=== PATIENT | female | born 1970 | race American Indian/Alaskan Native ===

== ENCOUNTER 2018-08-21 12:52 | Inpatient (IN) | payer SELFPAY ==
--- NOTE | 2018-08-21 13:07 | Emergency Department Report ---
Chief Complaint: Dyspnea/Respdistress Stated Complaint: RT TOE INFECTED/SOB/WEAK Time Seen by Provider: 08/21/18 13:05 - HPI History of Present Illness: here w many problems 1. cut toe 1 m ago and it hursts now; started to swell Thursday she does not know what she cut on it open wound of foot draining 2. weakness tachycardia on triage pt states she had chills earlier in the week no hx clots mom dm dad dec [place] at 56 pmh none obese pcp none rx none no cig no etoh no drugs lmp 2 m perimenopausal needs tdap [address] NAP, normal axis mse completed MSE screening note: Focused history and physical exam performed. Due to findings the following was ordered: ED Disposition for MSE Condition: Stable
[2018-08-21] MEDS ORDERED: BOOSTRIX IM ONE (13:11)
[2018-08-21] MEDS ORDERED: IBUPROFEN PO ONE (13:12)
[2018-08-21 14:05] LABS: Albumin 3.4 g/dL (3.9-5); BUN/Creatinine Ratio 16; Blood Urea Nitrogen 11 mg/dL (7-17); Calcium 9.5 mg/dL (8.4-10.2); Hemolysis Index 0
[2018-08-21 14:10] LABS: Alanine Aminotransferase < 5 units/L (7-56)
[2018-08-21 14:19] LABS: Hemoglobin 12.2 gm/dl (10.1-14.3); Mean Corpuscular HGB Conc 32 % (30-34); Mean Corpuscular Volume 71 fl (79-97); Platelet Count 471 K/mm3 (140-440); Red Blood Count 5.34 M/mm3 (3.65-5.03); Red Cell Distribution Width 16.4 % (13.2-15.2)
[2018-08-21] MEDS ORDERED: NACL 0.9% 1000 ML 1,000 ML IV ONE (14:39)
[2018-08-21] MEDS: VANCOMYCIN/NS 1 GM/250 ML 1 GM/250 ML BAG IV ONE ×2 (15:16→16:54)
--- NOTE | 2018-08-21 15:27 | XRay Report ---
EXAM: XR CHEST ROUTINE 2V HISTORY: sob TECHNIQUE: PA and lateral chest x-ray dated 08/21/2018 at 1457 hours. COMPARISON: None available. FINDINGS: The heart size and mediastinum are within normal limits. The lung ann and costophrenic angles are clear. There is no acute parenchymal infiltrate, pleural effusion, or pneumothorax seen. The visua lized bony structures are within normal limits. IMPRESSION: 1. No evidence for acute cardiopulmonary disease seen. This document is electronically signed by Otilio Gan MD., August 21 2018 03:25:53 PM ET
--- NOTE | 2018-08-21 15:30 | XRay Report ---
EXAM: XR FOOT 3+V RT HISTORY: pain sp cut on foot between 1/2 toe TECHNIQUE: 3 views COMPARISON: None available. FINDINGS: There is no acute bony fracture, or joint subluxation or dislocation seen. No evidence for inflammato ry or degenerative arthritis is seen. No focal bone erosion or sclerosis is seen. No plantar or Achil les calcaneal bone spur seen. There is soft tissue prominence between the first and second digits with mild diastases of the digits in keeping with posttraumatic change with possible hematoma. No soft tissue emphysema or foreign bod y is seen. There is peripheral atherosclerosis; rule out diabetic vasculopathy. IMPRESSION: 1. No acute bony fracture, or joint subluxation or dislocation seen. 2. Soft tissue prominence between the first and second digits with mild diastases of the digits in k eeping with posttraumatic change with possible hematoma. 3. No soft tissue emphysema or foreign body is seen. 4. Peripheral atherosclerosis; rule out diabetic vasculopathy. This document is electronically signed by Otilio Gan MD., August 21 2018 03:28:26 PM ET
[2018-08-21] MEDS ORDERED: HumuLIN R IV ONE ×2 (15:49→18:15)
--- NOTE | 2018-08-21 16:16 | Emergency Department Report ---
HPI - General Chief Complaint: Dyspnea/Respdistress Time Seen by Provider: 08/21/18 13:05 - HPI HPI: 48-year-old female presents to the emergency department with 2 complaints. First, the patient has a three-day history of pain, redness and swelling of the right foot. She had some type of toe and foot injury about one month ago that caused a laceration or opening between her first 2 toes. She says that about 3 days ago all of a sudden the symptoms came on and the area "opened up and started gushing." Secondly, the patient has been dealing with a one-week history of some diminished shortness of breath. No chest pain, fever, back pain, nausea, vomiting or diaphoresis. She denies any past medical history but also does not follow-up with a primary care physician and has not for the past couple of years. She has not taken anything for her symptoms prior to arrival. No recent travel or sick contacts at home. ED Past Medical Hx - Past Medical History Previous Medical History?: No - Surgical History Past Surgical History?: Yes Additional Surgical History: c-sections - Social History Smoking Status: Never Smoker Substance Use Type: None ED Review of Systems ROS: Stated complaint: RT TOE INFECTED/SOB/WEAK Other details as noted in HPI Comment: All other systems reviewed and negative Constitutional: denies: chills, fever Eyes: denies: eye pain, vision change ENT: denies: ear pain, throat pain Respiratory: shortness of breath. denies: cough Cardiovascular: edema (right foot). denies: chest pain, palpitations Gastrointestinal: denies: abdominal pain, vomiting Genitourinary: denies: dysuria, discharge Musculoskeletal: joint swelling, arthralgia Skin: change in color. denies: pruritus Neurological: denies: headache, numbness Physical Exam - Physical Exam Vital Signs: Vital Signs 08/21/18 08/21/18 13:05 14:07 Temperature 97.7 F Pulse Rate 138 H 116 H Respiratory 18 Rate Blood Pressure 127/89 O2 Sat by Pulse 98 Oximetry Physical Exam: GENERAL: The patient is well-developed well-nourished. HEENT: Normocephalic. Atraumatic. Patient has moist mucous membranes. EYES: Extraocular motions are intact. Pupils are equal and reactive to light bilaterally. NECK: Supple. Trachea is midline. CHEST/LUNGS: Clear to auscultation. There is no respiratory distress noted. HEART/CARDIOVASCULAR: Regular. There is moderate tachycardia. There is no obvious murmur. ABDOMEN: Abdomen is soft, nontender. Patient has normal bowel sounds. There is no abdominal distention. SKIN: There is nonpitting swelling of the right great toe and dorsal foot with erythema. There is some mild blood and discharge seen coming from between the great toe and the second toe of that foot. NEURO: The patient is awake, alert, and oriented. The patient is cooperative. The patient has no focal neurologic deficits. The patient has normal speech. MUSCULOSKELETAL: Tenderness to palpation to the right great toe and foot. Pedal pulses present. ED Course Vital Signs 08/21/18 08/21/18 13:05 14:07 Temperature 97.7 F Pulse Rate 138 H 116 H Respiratory 18 Rate Blood Pressure 127/89 O2 Sat by Pulse 98 Oximetry ED Medical Decision Making - Lab Data Result diagrams: 08/23/18 04:27 08/21/18 13:23 - Radiology Data Radiology results: report reviewed, image reviewed interpreted by me: Chest x-ray does not show any pneumothorax, pleural effusion, pneumonia or obvious focal consolidation. X-ray of the right foot moderate soft tissue swelling. PROCEDURE: CT LOWER EXTREMITY RT W CON HISTORY: Right foot infection FINDINGS: Contrast-enhanced CT angiography of the legs was performed from the level of the midthighs to the feet. On the right, the superficial femoral artery is patent. The popliteal artery is patent. The anterior tibial artery is patent to the level of the ankle and gives rise to a patent dorsalis pedis. There is atherosclerosis of the tibioperoneal trunk which is patent. The posterior tibial is a relatively small vessel but appears patent to the level of the ankle and gives rise to a medial plantar arch. The peroneal is very small. It appears occluded at the level of the ankle joint. Evaluation of the calf station is limited by venous contamination due to bolus timing. The patient reportedly has known right foot infection. Evaluation the foot is limited by the [id number] of the examination, which is too large for the foot. There is subcutaneous stranding of the great toe and medial aspect of the forefoot which could represent cellulitis. No abscess or evidence of osteomyelitis is seen. Consider MRI of the foot for further evaluation as clinically indicated. In the left leg, the distal superficial femoral artery is patent. The popliteal artery is patent. The anterior tibial artery is small and appears patent to the ankle and gives rise to very small dorsalis pedis. The posterior tibial is patent and gives rise to a small medial plantar arch. The distal peroneal artery is very small but appears to be patent to the level of the ankle. IMPRESSION: The leg arterial vasculature appears patent bilaterally Suspected cellulitis of right great toe and medial forefoot. No soft tissue abscess or evidence of osteomyelitis is seen. Consider MRI for further evaluation as clinically indicated This document is electronically signed by August Fleming MD., August 21 2018 08:31:53 PM ET Transcribed By: PATRICIA Dictated By: AUGUST FLEMING MD Electronically Authenticated By: AUGUST FLEMING MD Signed Date/Time: 08/21/182032 PROCEDURE: CT ANGIO CHEST TECHNIQUE: CTA of the chest obtained with intravenous contrast. HISTORY: SOB, elevated dimer COMPARISONS: None FINDINGS: No evidence for acute pulmonary embolus. No evidence for aortic aneurysm or dissection. Heart is normal in size. Great vessels are normal in caliber. There is no pneumothorax. No focal consolidation or effusion visualized. Partially visualized upper abdomen is unremarkable. IMPRESSION: No evidence for acute pulmonary embolus.. This document is electronically signed by Nori Larsen MD., August 21 2018 07:13:20 PM ET Transcribed By: QF Dictated By: NORI LARSEN Electronically Authenticated By: NORI LARSEN Signed Date/Time: 08/21/181914 - Medical Decision Making This patient injured her right foot about one month ago causing a laceration between the first and second toes. More recently, the patient has developed some redness, swelling of the foot and great toe and says that there was an opening between the 2 toes in which there was a large amount of purulent drainage that came out. On examination the toe and foot appears cellulitic. The patient presents with moderate tachycardia but no fever. She also appears to be diabetic which is new onset, although the patient has not followed up with a primary care physician in the past few years. She was given some IV insulin and IV fluid resuscitation. She was started empirically on vancomycin. X-ray and CT of the lower extremity did not show any fluid collection at this time and once again appears consistent with cellulitis. The patient complained of some occasional shortness of breath so a chest x-ray was done that also did not show any acute process. She had an elevated an equivocal d-dimer and therefore CT angiography of the chest was done that did not any pulmonary embolism. Given the new onset diabetes with hyperglycemia and this moderate to severe right foot cellulitis, the patient will be admitted to the hospital for further evaluation and treatment. - Differential Diagnosis DKA, HHNK, Cellulitis, Abscess Critical Care Time: No Critical care attestation.: If time is entered above; I have spent that time in minutes in the direct care of this critically ill patient, excluding procedure time. ED Disposition Clinical Impression: Cellulitis of right foot, Diabetes mellitus, new onset, Hyperglycemia Sepsis Qualifiers: Sepsis type: sepsis due to unspecified organism Qualified Code(s): A41.9 - Sepsis, unspecified organism Disposition: OP ADMIT IP TO THIS HOSP Is pt being admited?: Yes Condition: Fair
--- NOTE | 2018-08-21 19:15 | Cat Scan Report ---
PROCEDURE: CT ANGIO CHEST TECHNIQUE: CTA of the chest obtained with intravenous contrast. HISTORY: SOB, elevated dimer COMPARISONS: None FINDINGS: No evidence for acute pulmonary embolus. No evidence for aortic aneurysm or dissection. Heart is normal in size. Great vessels are normal in caliber. There is no pneumothorax. No focal consolidation or effusion visualized. Partially visualized upper abdomen is unremarkable. IMPRESSION: No evidence for acute pulmonary embolus.. This document is electronically signed by Anita Larsen MD., August 21 2018 07:13:20 PM ET
--- NOTE | 2018-08-21 20:33 | Cat Scan Report ---
PROCEDURE: CT LOWER EXTREMITY RT W CON HISTORY: Right foot infection FINDINGS: Contrast-enhanced CT angiography of the legs was performed from the level of the midthighs to the feet. On the right, the superficial femoral artery is patent. The popliteal artery is patent. The anterior tibial artery is patent to the level of the ankle and gives rise to a patent dorsalis pedis. There is atherosclerosis of the tibioperoneal trunk which is patent. The posterior tibial is a relatively sma ll vessel but appears patent to the level of the ankle and gives rise to a medial plantar arch. The p eroneal is very small. It appears occluded at the level of the ankle joint. Evaluation of the calf st ation is limited by venous contamination due to bolus timing. The patient reportedly has known right foot infection. Evaluation the foot is limited by the field-of -view of the examination, which is too large for the foot. There is subcutaneous stranding of the gre at toe and medial aspect of the forefoot which could represent cellulitis. No abscess or evidence of osteomyelitis is seen. Consider MRI of the foot for further evaluation as clinically indicated. In the left leg, the distal superficial femoral artery is patent. The popliteal artery is patent. The anterior tibial artery is small and appears patent to the ankle and gives rise to very small dorsali s pedis. The posterior tibial is patent and gives rise to a small medial plantar arch. The distal per rendon artery is very small but appears to be patent to the level of the ankle. IMPRESSION: The leg arterial vasculature appears patent bilaterally Suspected cellulitis of right great toe and medial forefoot. No soft tissue abscess or evidence of os teomyelitis is seen. Consider MRI for further evaluation as clinically indicated This document is electronically signed by Aguust Fleming MD., August 21 2018 08:31:53 PM ET
[2018-08-21 22:49] LABS: HCG Qualitative,Urine Negative (Negative)
[2018-08-21] MEDS ORDERED: ZOFRAN IV PRN (22:52)
[2018-08-21] MEDS ORDERED: TYLENOL PO PRN (22:52)
[2018-08-21] MEDS ORDERED: MORPHINE IV PRN (22:52)
[2018-08-21 22:53] LABS: Bilirubin,Urine NEG (Negative); Blood,Urine NEG (Negative); Color,Urine Yellow (Yellow); Mucus,Urine FEW /HPF; Protein,Urine <15 mg/dL mg/dL (Negative)
--- NOTE | 2018-08-21 23:06 | History and Physical Report ---
<SALOMON REMY - Last Filed: 08/22/18 00:18> History of Present Illness Date of examination: 08/21/18 Date of admission: 08/21/2018 Chief complaint: Right great toes infection History of present illness: Patient is a 48-year-old female with no prior medical history who presents to the ER with complaints of right great toe injury that developed into an infection. Patient states about a month ago she accidentally stepped on something as she was walking, when she got home she noticed the open area. Patient states that she was cleaning the area daily and kept it dressed, but 3 days ago she noticed redness and swelling and large amount of purulent discharge came out. Patient states that the area kept getting worse, with redness and discoloration, she reports some chills, denies fever, she decided to come to the ER for evaluation today. Pt states that she had not seen a doctors in years, she is not aware of any medical history, she cannoy reminber her last tetanus shot, in the ER, her blood glucose was 369, she is admitted for further evaluation and treatment of her right great toe infection. Past History Past Medical History: No medical history Past Surgical History: (x3) Social history: no significant social history, lives with family Family history: CAD (mother and father has diabetes, father has heart disease), diabetes Medications and Allergies Allergies Allergy/AdvReac Type Severity Reaction Status Date / Time No Known Allergies Allergy Verified 08/21/18 13:05 Home Medications Medication Instructions Recorded Confirmed Last Taken Type Insulin NPH/Regular [NovoLIN 70/30] 24 unit SUB-Q BIDDIAB 30 Days 08/30/18 Unknown Rx units Insulin Regular, Human [Humulin R] See Protocol IJ ACHS 30 Days vial 08/30/18 Unknown Rx hydrALAZINE [Apresoline TAB] 10 mg PO Q8HR #90 tablet 08/30/18 Unknown Rx oxyCODONE /ACETAMINOPHEN [Percocet 1 tab PO BID PRN #10 tablet 08/30/18 Unknown Rx 5/325 mg] Active Meds: Active Medications Acetaminophen (Tylenol) 650 mg PO Q4H PRN PRN Reason: Pain MILD(1-3)/Fever >100.5/SMITH Enoxaparin Sodium (Lovenox) 40 mg SUB-Q QDAY AMIRA Morphine Sulfate (Morphine) 2 mg IV Q4H PRN PRN Reason: Pain, Moderate (4-6) Ondansetron HCl (Zofran) 4 mg IV Q8H PRN PRN Reason: Nausea And Vomiting Sodium Chloride (Sodium Chloride Flush Syringe 10 Ml) 10 ml IV BID AMIRA Sodium Chloride (Sodium Chloride Flush Syringe 10 Ml) 10 ml IV PRN PRN PRN Reason: LINE FLUSH Review of Systems Constitutional: chills Exam - Constitutional Vitals: Temp Pulse Resp BP Pulse Ox 97.5 F L 106 H 17 116/80 100 08/21/18 19:52 08/21/18 19:52 08/21/18 19:52 08/21/18 19:52 08/21/18 19:52 General appearance: Present: no acute distress - EENT Eyes: Present: EOM intact ENT: hearing intact - Neck Neck: Present: normal ROM - Respiratory Respiratory effort: normal Respiratory: bilateral: CTA - Cardiovascular Rhythm: regular Heart Sounds: Present: S1 & S2 - Extremities Extremity abnormal: ulceration Results - Labs CBC & Chem 7: 08/21/18 13:23 08/21/18 13:23 Labs: Laboratory Last Values WBC 12.0 K/mm3 (4.5-11.0) H 08/21/18 13:23 RBC 5.34 M/mm3 (3.65-5.03) H 08/21/18 13:23 Hgb 12.2 gm/dl (10.1-14.3) 08/21/18 13:23 Hct 38.0 % (30.3-42.9) 08/21/18 13:23 MCV 71 fl (79-97) L 08/21/18 13:23 MCH 23 pg (28-32) L 08/21/18 13:23 MCHC 32 % (30-34) 08/21/18 13:23 RDW 16.4 % (13.2-15.2) H 08/21/18 13:23 Plt Count 471 K/mm3 (140-440) H 08/21/18 13:23 D-Dimer 728.45 ng/mlDDU (0-234) H 08/21/18 15:03 VBG pH 7.402 (7.320-7.420) 08/21/18 15:03 Sodium 131 mmol/L (137-145) L 08/21/18 13:23 Potassium 4.4 mmol/L (3.6-5.0) 08/21/18 13:23 Chloride 87.9 mmol/L (98-107) L 08/21/18 13:23 Carbon Dioxide 17 mmol/L (22-30) L 08/21/18 13:23 Anion Gap 31 mmol/L 08/21/18 13:23 BUN 11 mg/dL (7-17) 08/21/18 13:23 Creatinine 0.7 mg/dL (0.7-1.2) 08/21/18 13:23 Estimated GFR > 60 ml/min 08/21/18 13:23 BUN/Creatinine Ratio 16 % 08/21/18 13:23 Glucose 369 mg/dL (65-100) H 08/21/18 13:23 POC Glucose 320 (70-105) H 08/21/18 17:30 Lactic Acid 1.70 mmol/L (0.7-2.0) 08/21/18 15:03 Calcium 9.5 mg/dL (8.4-10.2) 08/21/18 13:23 Total Bilirubin 0.50 mg/dL (0.1-1.2) 08/21/18 13:23 AST 5 units/L (5-40) 08/21/18 13:23 ALT < 5 units/L (7-56) L 08/21/18 13:23 Alkaline Phosphatase 97 units/L (35-129) 08/21/18 13:23 Total Protein 9.1 g/dL (6.3-8.2) H 08/21/18 13:23 Albumin 3.4 g/dL (3.9-5) L 08/21/18 13:23 Albumin/Globulin Ratio 0.6 % 08/21/18 13:23 Urine Color Yellow (Yellow) 08/21/18 22:30 Urine Turbidity Clear (Clear) 08/21/18 22:30 Urine pH 5.0 (5.0-7.0) 08/21/18 22:30 Ur Specific [place] 1.060 (1.003-1.030) H 08/21/18 22:30 Urine Protein <15 mg/dl mg/dL (Negative) 08/21/18 22:30 Urine Glucose (UA) 150 mg/dL (Negative) 08/21/18 22:30 Urine Ketones 80 mg/dL (Negative) 08/21/18 22:30 Urine Blood Neg (Negative) 08/21/18 22:30 Urine Nitrite Neg (Negative) 08/21/18 22:30 Ur Reducing Substances Not Reportable 08/21/18 22:30 Urine Bilirubin Neg (Negative) 08/21/18 22:30 Urine Ictotest Not Reportable 08/21/18 22:30 Urine Urobilinogen 4.0 mg/dL (<2.0) 08/21/18 22:30 Ur Leukocyte Esterase Tr (Negative) 08/21/18 22:30 Urine WBC (Auto) 7.0 /HPF (0.0-6.0) H 08/21/18 22:30 Urine RBC (Auto) 5.0 /HPF (0.0-6.0) 08/21/18 22:30 U Epithel Cells (Auto) 1.0 /HPF (0-13.0) 08/21/18 22:30 Urine Mucus Few /HPF 08/21/18 22:30 Urine HCG, Qual Negative (Negative) 08/21/18 22:30 Assessment and Plan Assessment and plan: 1. Right toe Inspection (likely due to diabetes ulcer) 2. New onset DM type 2 with hyperglycemia 3. Leukocytosis 4. Dehydration 5. Hyponatremia Plan: Patient is admitted for right foot infection Consult surgery for evaluation (possible debridement) IV fluids for hydration Accu-Chek ACHS with insulin per sliding scale Hemoglobin A1c Diabetes management teaching Continue antibiotics with the vancomycin pharmacy to dose Further then per surgery recommendation Plan discussed with patient, voiced understanding Patient's condition and plan of care discussed with Dr. Holden Advance Directives: Yes VTE prophylaxis?: Chemical Plan of care discussed with patient/family: Yes <ARCHANA HOLDEN - Last Filed: 09/01/18 03:26> History of Present Illness Date of admission: 08/21/18 22:39 Medications and Allergies Active Meds: Active Medications Acetaminophen (Tylenol) 650 mg PO Q4H PRN PRN Reason: Pain MILD(1-3)/Fever >100.5/SMITH Enoxaparin Sodium (Lovenox) 40 mg SUB-Q QDAY AMIRA Insulin Human Regular (Humulin R) 0 units SUB-Q ACHS AMIRA; Protocol Morphine Sulfate (Morphine) 2 mg IV Q4H PRN PRN Reason: Pain, Moderate (4-6) Ondansetron HCl (Zofran) 4 mg IV Q8H PRN PRN Reason: Nausea And Vomiting Sodium Chloride (Sodium Chloride Flush Syringe 10 Ml) 10 ml IV BID AMIRA Sodium Chloride (Sodium Chloride Flush Syringe 10 Ml) 10 ml IV PRN PRN PRN Reason: LINE FLUSH Exam - Constitutional Vitals: Temp Pulse Resp BP Pulse Ox 97.6 F 101 H 18 120/64 94 08/22/18 02:20 08/22/18 02:20 08/22/18 02:20 08/22/18 02:20 08/22/18 02:20 Results - Labs CBC & Chem 7: 08/27/18 06:39 08/29/18 06:10 Labs: Laboratory Last Values WBC 12.0 K/mm3 (4.5-11.0) H 08/21/18 13:23 RBC 5.34 M/mm3 (3.65-5.03) H 08/21/18 13:23 Hgb 12.2 gm/dl (10.1-14.3) 08/21/18 13:23 Hct 38.0 % (30.3-42.9) 08/21/18 13:23 MCV 71 fl (79-97) L 08/21/18 13:23 MCH 23 pg (28-32) L 08/21/18 13:23 MCHC 32 % (30-34) 08/21/18 13:23 RDW 16.4 % (13.2-15.2) H 08/21/18 13:23 Plt Count 471 K/mm3 (140-440) H 08/21/18 13:23 D-Dimer 728.45 ng/mlDDU (0-234) H 08/21/18 15:03 VBG pH 7.402 (7.320-7.420) 08/21/18 15:03 Sodium 131 mmol/L (137-145) L 08/21/18 13:23 Potassium 4.4 mmol/L (3.6-5.0) 08/21/18 13:23 Chloride 87.9 mmol/L (98-107) L 08/21/18 13:23 Carbon Dioxide 17 mmol/L (22-30) L 08/21/18 13:23 Anion Gap 31 mmol/L 08/21/18 13:23 BUN 11 mg/dL (7-17) 08/21/18 13:23 Creatinine 0.7 mg/dL (0.7-1.2) 08/21/18 13:23 Estimated GFR > 60 ml/min 08/21/18 13:23 BUN/Creatinine Ratio 16 % 08/21/18 13:23 Glucose 369 mg/dL (65-100) H 08/21/18 13:23 POC Glucose 320 (70-105) H 08/21/18 17:30 Lactic Acid 1.70 mmol/L (0.7-2.0) 08/21/18 15:03 Calcium 9.5 mg/dL (8.4-10.2) 08/21/18 13:23 Total Bilirubin 0.50 mg/dL (0.1-1.2) 08/21/18 13:23 AST 5 units/L (5-40) 08/21/18 13:23 ALT < 5 units/L (7-56) L 08/21/18 13:23 Alkaline Phosphatase 97 units/L (35-129) 08/21/18 13:23 Total Protein 9.1 g/dL (6.3-8.2) H 08/21/18 13:23 Albumin 3.4 g/dL (3.9-5) L 08/21/18 13:23 Albumin/Globulin Ratio 0.6 % 08/21/18 13:23 Urine Color Yellow (Yellow) 08/21/18 22:30 Urine Turbidity Clear (Clear) 08/21/18 22:30 Urine pH 5.0 (5.0-7.0) 08/21/18 22:30 Ur Specific [place] 1.060 (1.003-1.030) H 08/21/18 22:30 Urine Protein <15 mg/dl mg/dL (Negative) 08/21/18 22:30 Urine Glucose (UA) 150 mg/dL (Negative) 08/21/18 22:30 Urine Ketones 80 mg/dL (Negative) 08/21/18 22:30 Urine Blood Neg (Negative) 08/21/18 22:30 Urine Nitrite Neg (Negative) 08/21/18 22:30 Ur Reducing Substances Not Reportable 08/21/18 22:30 Urine Bilirubin Neg (Negative) 08/21/18 22:30 Urine Ictotest Not Reportable 08/21/18 22:30 Urine Urobilinogen 4.0 mg/dL (<2.0) 08/21/18 22:30 Ur Leukocyte Esterase Tr (Negative) 08/21/18 22:30 Urine WBC (Auto) 7.0 /HPF (0.0-6.0) H 08/21/18 22:30 Urine RBC (Auto) 5.0 /HPF (0.0-6.0) 08/21/18 22:30 U Epithel Cells (Auto) 1.0 /HPF (0-13.0) 08/21/18 22:30 Urine Mucus Few /HPF 08/21/18 22:30 Urine HCG, Qual Negative (Negative) 08/21/18 22:30 Assessment and Plan Assessment and plan: Patient seen and examined with nurse practitioner. 48-year-old woman with no medical problems state that she stepped on something a month ago, sustaining a wound to the great toe. She has been using peroxide and Neosporin cream on the wound without any improvement. On Thursday, the first and second toes became swollen, she noticed purulent discharge from between the toes. Complain of fever and chills, weakness, shortness of breath. Admits to polyuria, some weight loss. Patient with new onset diabetes, diabetic foot infection, UTI . Agree with plan as discussed above, also consult dietitian, start IV fluid. Patient received 1 dose of Vanco in the ER, start flores Khan
[2018-08-22] MEDS ORDERED: NACL 0.9% 500 ML IR ONE (02:36)
[2018-08-22] MEDS ORDERED: NACL 0.9% IR ONE (04:00)
[2018-08-22] MEDS: ZOSYN/NS 3.375GM/50ML 3.375 GM/50 ML BAG IV SCH ×4 (04:30→22:01)
[2018-08-22] MEDS: NACL 0.9% 1000 ML 1,000 ML IV SCH (04:30)
[2018-08-22] MEDS ORDERED: NACL 0.9% 1000 ML 1,000 ML ONE (04:40)
--- NOTE | 2018-08-22 08:40 | Progress Note ---
Assessment and Plan Assessment and plan: --Diabetic foot ulcer; IV antibiotics, wound care, elevate the limb CT right foot; cellulitis no evidence of osteomyelitis or abscess Surgery consultation, possible debridement --Leukocytosis; secondary to sepsis due to diabetic foot ulcer --Uncontrolled diabetes mellitus/hyperglycemia Accu-Chek sliding scale coverage and ADA diet, long-acting insulin Hemoglobin A1c 14, diabetic education, nutrition counseling Possible home health nurse at discharge for disease management --Hyponatremia; probably pseudohyponatremia secondary to hyperglycemia Closely monitor electrolytes, IV fluids --Metabolic acidosis; secondary to hyperglycemia, vigorous IV hydration Closely monitor --Elevated d-dimer ; CTA chest negative, will check lower extremity venous Doppler Rule out DVT --Moderate malnutrition/hypoalbuminemia, nutrition supplements and supportive care --DVT prophylaxis; Lovenox Will monitor closely and adjust the management as needed Follow-up surgical evaluation and recommendations History Interval history: Patient seen and examined in ED awaiting bed assignment Medical records reviewed Presented with diabetic foot ulcer and new onset diabetes mellitus With a high blood sugars Patient feels slightly better Alert awake oriented 3 Vital signs noted Hospitalist Physical - Constitutional Vitals: Temp Pulse Resp BP Pulse Ox 97.6 F 90 19 130/81 99 08/22/18 02:20 08/22/18 07:00 08/22/18 07:00 08/22/18 07:00 08/22/18 07:00 General appearance: Present: no acute distress, well-nourished, obese - EENT Eyes: Present: PERRL, EOM intact - Neck Neck: Present: supple, normal ROM - Respiratory Respiratory effort: normal Respiratory: bilateral: diminished, negative: rales, rhonchi, wheezing - Cardiovascular Rhythm: regular Heart Sounds: Present: S1 & S2 - Extremities Extremities: no ischemia, No edema, abnormal (right foot in dressing) - Abdominal General gastrointestinal: soft, non-tender, non-distended, normal bowel sounds - Integumentary Integumentary: Present: clear, warm - Psychiatric Psychiatric: appropriate mood/affect, cooperative - Neurologic Neurologic: CNII-XII intact, moves all extremities Results - Labs CBC & Chem 7: 08/21/18 13:23 08/21/18 13:23 Labs: Laboratory Last Values WBC 12.0 K/mm3 (4.5-11.0) H 08/21/18 13:23 RBC 5.34 M/mm3 (3.65-5.03) H 08/21/18 13:23 Hgb 12.2 gm/dl (10.1-14.3) 08/21/18 13:23 Hct 38.0 % (30.3-42.9) 08/21/18 13:23 MCV 71 fl (79-97) L 08/21/18 13:23 MCH 23 pg (28-32) L 08/21/18 13:23 MCHC 32 % (30-34) 08/21/18 13:23 RDW 16.4 % (13.2-15.2) H 08/21/18 13:23 Plt Count 471 K/mm3 (140-440) H 08/21/18 13:23 D-Dimer 728.45 ng/mlDDU (0-234) H 08/21/18 15:03 VBG pH 7.402 (7.320-7.420) 08/21/18 15:03 Sodium 131 mmol/L (137-145) L 08/21/18 13:23 Potassium 4.4 mmol/L (3.6-5.0) 08/21/18 13:23 Chloride 87.9 mmol/L (98-107) L 08/21/18 13:23 Carbon Dioxide 17 mmol/L (22-30) L 08/21/18 13:23 Anion Gap 31 mmol/L 08/21/18 13:23 BUN 11 mg/dL (7-17) 08/21/18 13:23 Creatinine 0.7 mg/dL (0.7-1.2) 08/21/18 13:23 Estimated GFR > 60 ml/min 08/21/18 13:23 BUN/Creatinine Ratio 16 % 08/21/18 13:23 Glucose 369 mg/dL (65-100) H 08/21/18 13:23 POC Glucose 320 (70-105) H 08/21/18 17:30 Hemoglobin A1c 14.0 % (4-6) H 08/22/18 00:33 Lactic Acid 1.70 mmol/L (0.7-2.0) 08/21/18 15:03 Calcium 9.5 mg/dL (8.4-10.2) 08/21/18 13:23 Total Bilirubin 0.50 mg/dL (0.1-1.2) 08/21/18 13:23 AST 5 units/L (5-40) 08/21/18 13:23 ALT < 5 units/L (7-56) L 08/21/18 13:23 Alkaline Phosphatase 97 units/L (35-129) 08/21/18 13:23 Total Protein 9.1 g/dL (6.3-8.2) H 08/21/18 13:23 Albumin 3.4 g/dL (3.9-5) L 08/21/18 13:23 Albumin/Globulin Ratio 0.6 % 08/21/18 13:23 Urine Color Yellow (Yellow) 08/21/18 22:30 Urine Turbidity Clear (Clear) 08/21/18 22:30 Urine pH 5.0 (5.0-7.0) 08/21/18 22:30 Ur Specific [place] 1.060 (1.003-1.030) H 08/21/18 22:30 Urine Protein <15 mg/dl mg/dL (Negative) 08/21/18 22:30 Urine Glucose (UA) 150 mg/dL (Negative) 08/21/18 22:30 Urine Ketones 80 mg/dL (Negative) 08/21/18 22:30 Urine Blood Neg (Negative) 08/21/18 22:30 Urine Nitrite Neg (Negative) 08/21/18 22:30 Ur Reducing Substances Not Reportable 08/21/18 22:30 Urine Bilirubin Neg (Negative) 08/21/18 22:30 Urine Ictotest Not Reportable 08/21/18 22:30 Urine Urobilinogen 4.0 mg/dL (<2.0) 08/21/18 22:30 Ur Leukocyte Esterase Tr (Negative) 08/21/18 22:30 Urine WBC (Auto) 7.0 /HPF (0.0-6.0) H 08/21/18 22:30 Urine RBC (Auto) 5.0 /HPF (0.0-6.0) 08/21/18 22:30 U Epithel Cells (Auto) 1.0 /HPF (0-13.0) 08/21/18 22:30 Urine Mucus Few /HPF 08/21/18 22:30 Urine HCG, Qual Negative (Negative) 08/21/18 22:30 Active Medications - Current Medications Current Medications: Generic Name Dose Route Start Last Admin Trade Name Freq PRN Reason Stop Dose Admin Acetaminophen 650 mg 08/21/18 22:52 Tylenol PO Q4H PRN Pain MILD(1-3)/Fever >100.5/SMITH Enoxaparin Sodium 40 mg 08/22/18 10:00 Lovenox SUB-Q QDAY AMIRA Sodium Chloride 1,000 mls @ 100 mls/hr 08/22/18 03:00 08/22/18 04:30 Nacl 0.9% 1000 Ml IV 100 mls/hr DIRECT AMIRA Administration Piperacillin Sod/Tazobactam Sod 3.375 gm in 50 mls @ 100 mls/hr 08/22/18 04:00 08/22/18 04:30 Zosyn/Ns 3.375gm/50ml IV 100 mls/hr Q8H AMIRA Administration Insulin Human Isoph/Insulin Regular 10 unit 08/22/18 17:00 Humulin 70/30 SUB-Q BIDDIAB AMIRA Insulin Human Regular 0 units 08/22/18 07:30 Humulin R SUB-Q ACHS AMIRA Protocol Morphine Sulfate 2 mg 08/21/18 22:52 Morphine IV Q4H PRN Pain, Moderate (4-6) Ondansetron HCl 4 mg 08/21/18 22:52 Zofran IV Q8H PRN Nausea And Vomiting Sodium Chloride 10 ml 08/22/18 10:00 Sodium Chloride Flush Syringe 10 Ml IV BID AMIRA Sodium Chloride 10 ml 08/21/18 22:52 Sodium Chloride Flush Syringe 10 Ml IV PRN PRN LINE FLUSH
[2018-08-22] MEDS ORDERED: HumuLIN R ONE (09:47)
[2018-08-22] MEDS: HumuLIN R SUB-Q SCH ×4 (09:47→22:01)
[2018-08-22] MEDS: SODIUM CHLORIDE FLUSH SYRINGE 10 ML IV SCH ×2 (10:00→22:03)
[2018-08-22] MEDS: LOVENOX SUB-Q SCH (13:35)
--- NOTE | 2018-08-22 14:18 | Consultation ---
History of Present Illness Consult date: 08/22/18 Chief complaint: foot wound - History of present illness History of present illness: 48 yo F with no PMHx presents to ER with c/o right foot infection. She states that she bumped her right toe on something a few weeks ago and it opened up. Although the cut never healed, it was never bothersome or tender and remained clean. A few days ago she noticed the area becoming more swollen and red. She decided to take a bath. After the bath, she noted a copious amount of pus and bloody drainage from the area. She also c/o associated fevers and chills. She has never had wound healing issues in the past. Past History Past Medical History: No medical history Past Surgical History: (x3) Social history: no significant social history, lives with family Family history: CAD (mother and father has diabetes, father has heart disease), diabetes Medications and Allergies Allergies Allergy/AdvReac Type Severity Reaction Status Date / Time No Known Allergies Allergy Verified 08/21/18 13:05 Active Meds: Active Medications Acetaminophen (Tylenol) 650 mg PO Q4H PRN PRN Reason: Pain MILD(1-3)/Fever >100.5/SMITH Enoxaparin Sodium (Lovenox) 40 mg SUB-Q QDAY [facility] Last Admin: 08/22/18 13:35 Dose: 40 mg Documented by: Sodium Chloride (Nacl 0.9% 1000 Ml) 1,000 mls @ 100 mls/hr IV DIRECT [facility] Last Admin: 08/22/18 04:30 Dose: 100 mls/hr Documented by: Piperacillin Sod/Tazobactam Sod (Zosyn/Ns 3.375gm/50ml) 3.375 gm in 50 mls @ 100 mls/hr IV Q8H [facility] Last Admin: 08/22/18 04:30 Dose: 100 mls/hr Documented by: Insulin Human Isoph/Insulin Regular (Humulin 70/30) 10 unit SUB-Q BIDDIAB [facility] Insulin Human Regular (Humulin R) 0 units SUB-Q ACHS [facility]; Protocol Last Admin: 08/22/18 13:36 Dose: 10 units Documented by: Morphine Sulfate (Morphine) 2 mg IV Q4H PRN PRN Reason: Pain, Moderate (4-6) Ondansetron HCl (Zofran) 4 mg IV Q8H PRN PRN Reason: Nausea And Vomiting Sodium Chloride (Sodium Chloride Flush Syringe 10 Ml) 10 ml IV BID AMIRA Sodium Chloride (Sodium Chloride Flush Syringe 10 Ml) 10 ml IV PRN PRN PRN Reason: LINE FLUSH Review of Systems All systems: negative (10 pt ROS performed and negative except for that listed in HPI) Exam Vital Signs Temp Pulse Resp BP Pulse Ox 97.7 F 138 H 18 127/89 98 08/21/18 13:05 08/21/18 13:05 08/21/18 13:05 08/21/18 13:05 08/21/18 13:05 Narrative exam: Gen: AAOx3. NAD ENT: No scleral icterus or conjunctival pallor CV: s1, S2+ Resp: even and unlabored Ext: palpable DP pulse in both LE. Feet warm. R foot with open wound in between the great toe and second toe. There is surrounding erythema and purulent drainage. There is slough and necrotic tissue on the wound bed. Some slough able to be removed. The wound probed to 3 cm. Wound cleansed with saline and packed with 1 piece of mesalt. There is a 1 cm wound on the plantar aspect of the great toe with overlying eschar. Eschar gently removed with cotton tip applicator. Wound bed pink, no abscess. Wound covered with 4x4 gauze and wrapped with kerlix. Results - Labs 08/21/18 13:23 08/21/18 13:23 Abnormal lab results 08/21/18 08/21/18 08/21/18 Range/Units 13:23 15:03 17:30 WBC 12.0 H (4.5-11.0) K/mm3 RBC 5.34 H (3.65-5.03) M/mm3 MCV 71 L (79-97) fl MCH 23 L (28-32) pg RDW 16.4 H (13.2-15.2) % Plt Count 471 H (140-440) K/mm3 D-Dimer 728.45 H (0-234) ng/mlDDU POC Glucose 320 H (70-105) Hemoglobin A1c (4-6) % Ur Specific [place] (1.003-1.030) Urine WBC (Auto) (0.0-6.0) /HPF 04/11/0308/22/18 08/22/18 Range/Units 22:30 00:33 04:29 WBC (4.5-11.0) K/mm3 RBC (3.65-5.03) M/mm3 MCV (79-97) fl MCH (28-32) pg RDW (13.2-15.2) % Plt Count (140-440) K/mm3 D-Dimer (0-234) ng/mlDDU POC Glucose 349 H (70-105) Hemoglobin A1c 14.0 H (4-6) % Ur Specific [place] 1.060 H (1.003-1.030) Urine WBC (Auto) 7.0 H (0.0-6.0) /HPF 08/22/18 08/22/18 Range/Units 09:01 12:27 WBC (4.5-11.0) K/mm3 RBC (3.65-5.03) M/mm3 MCV (79-97) fl MCH (28-32) pg RDW (13.2-15.2) % Plt Count (140-440) K/mm3 D-Dimer (0-234) ng/mlDDU POC Glucose 301 H 384 H (70-105) Hemoglobin A1c (4-6) % Ur Specific [place] (1.003-1.030) Urine WBC (Auto) (0.0-6.0) /HPF Diabetes panel 08/22/18 Range/Units 00:33 Hemoglobin A1c 14.0 H (4-6) % - Imaging Additional studies: CT scan RLE Assessment and Plan 48 yo F with 1. abscess/wound of right foot 2. newly diagnosed DM - A1C - 14 Plan: 1. NPO p MN 2. will require debridement in OR - will add to OR schedule for tomorrow 3. strict glucose control 4. offloading of right foot 5. MRI right foot to r/o osteomyelitis 6. c/w abx 7. wound care consult Thank you, please call with questions
[2018-08-22] MEDS: SODIUM CHLORIDE FLUSH SYRINGE 10 ML IV PRN (17:27)
[2018-08-22] MEDS ORDERED: LANTUS SUB-Q SCH (22:00)
[2018-08-23] MEDS: NACL 0.9% 1000 ML 1,000 ML IV SCH ×3 (02:03→18:26)
[2018-08-23] MEDS: ZOSYN/NS 3.375GM/50ML 3.375 GM/50 ML BAG IV SCH (04:37)
[2018-08-23 05:56] LABS: Basophils # (Auto) 0.1 K/mm3 (0.0-0.1); Basophils % (Auto) 0.6 % (0.0-1.8); Eosinophils # (Auto) 0.3 K/mm3 (0.0-0.4); Eosinophils % (Auto) 3.2 % (0.0-4.3); Hematocrit 28.8 % (30.3-42.9); Hemoglobin 9.3 gm/dl (10.1-14.3); Lymphocytes # (Auto) 2.4 K/mm3 (1.2-5.4); Lymphocytes % (Auto) 25.5 % (13.4-35.0); Mean Corpuscular HGB Conc 32 % (30-34); Mean Corpuscular Volume 71 fl (79-97); Monocytes # (Auto) 0.7 K/mm3 (0.0-0.8); Monocytes % (Auto) 7.4 % (0.0-7.3); Platelet Count 323 K/mm3 (140-440); Red Blood Count 4.06 M/mm3 (3.65-5.03); Red Cell Distribution Width 16.7 % (13.2-15.2)
[2018-08-23 06:22] LABS: BUN/Creatinine Ratio 17; Blood Urea Nitrogen 12 mg/dL (7-17); Calcium 8.9 mg/dL (8.4-10.2); Hemolysis Index 3
[2018-08-23] MEDS: HumuLIN R SUB-Q SCH ×4 (08:38→22:26)
[2018-08-23] MEDS: SODIUM CHLORIDE FLUSH SYRINGE 10 ML IV SCH ×2 (09:15→21:58)
[2018-08-23] MEDS: LOVENOX SUB-Q SCH (09:24)
--- NOTE | 2018-08-23 10:18 | Progress Note ---
Assessment and Plan Assessment and plan: --Diabetic foot ulcer; IV antibiotics, wound care, elevate the limb CT right foot; cellulitis no evidence of osteomyelitis or abscess Surgery evaluation and recommendation noted and appreciated Possible surgical debridement today --Leukocytosis; secondary to sepsis /foot ulcer trending down --Uncontrolled diabetes mellitus/hyperglycemia Accu-Chek,SSC and ADA diet, 7030 Humulin, dose increased to 22 twice a day Hemoglobin A1c 14, diabetic education, nutrition counseling Possible home health nurse at discharge for disease management --Hyponatremia; significantly improved --Metabolic acidosis; secondary to hyperglycemia, vigorous IV hydration Resolved --Elevated d-dimer ; CTA chest negative, will check lower extremity venous Doppler Rule out DVT --Moderate malnutrition/hypoalbuminemia, nutrition supplements and supportive care --DVT prophylaxis; Lovenox Will monitor closely and adjust the management as needed Follow-up surgical evaluation and recommendations History Interval history: patient seen and examined medical records reviewed Scheduled for surgical debridement today Vital signs noted Hospitalist Physical - Constitutional Vitals: Temp Pulse Resp BP Pulse Ox 98.2 F 90 16 122/68 96 08/23/18 05:03 08/23/18 05:03 08/23/18 05:03 08/23/18 05:03 08/23/18 05:03 General appearance: Present: no acute distress, well-nourished, obese - EENT Eyes: Present: PERRL, EOM intact - Neck Neck: Present: supple, normal ROM - Respiratory Respiratory effort: normal Respiratory: bilateral: diminished, negative: rales, rhonchi, wheezing - Cardiovascular Rhythm: regular Heart Sounds: Present: S1 & S2 - Extremities Extremities: no ischemia, No edema - Abdominal General gastrointestinal: soft, non-tender, non-distended, normal bowel sounds - Integumentary Integumentary: Present: clear, warm - Psychiatric Psychiatric: appropriate mood/affect, cooperative - Neurologic Neurologic: CNII-XII intact, moves all extremities Results - Labs CBC & Chem 7: 08/23/18 04:27 08/23/18 04:27 Labs: Laboratory Last Values WBC 9.3 K/mm3 (4.5-11.0) 08/23/18 04:27 RBC 4.06 M/mm3 (3.65-5.03) 08/23/18 04:27 Hgb 9.3 gm/dl (10.1-14.3) L 08/23/18 04:27 Hct 28.8 % (30.3-42.9) L D 08/23/18 04:27 MCV 71 fl (79-97) L 08/23/18 04:27 MCH 23 pg (28-32) L 08/23/18 04:27 MCHC 32 % (30-34) 08/23/18 04:27 RDW 16.7 % (13.2-15.2) H 08/23/18 04:27 Plt Count 323 K/mm3 (140-440) 08/23/18 04:27 Lymph % (Auto) 25.5 % (13.4-35.0) 08/23/18 04:27 [place] % (Auto) 7.4 % (0.0-7.3) H 08/23/18 04:27 Eos % (Auto) 3.2 % (0.0-4.3) 08/23/18 04:27 Baso % (Auto) 0.6 % (0.0-1.8) 08/23/18 04:27 Lymph # 2.4 K/mm3 (1.2-5.4) 08/23/18 04:27 [place] # 0.7 K/mm3 (0.0-0.8) 08/23/18 04:27 Eos # 0.3 K/mm3 (0.0-0.4) 08/23/18 04:27 Baso # 0.1 K/mm3 (0.0-0.1) 08/23/18 04:27 Seg Neutrophils % 63.3 % (40.0-70.0) 08/23/18 04:27 Seg Neutrophils # 5.9 K/mm3 (1.8-7.7) 08/23/18 04:27 D-Dimer 728.45 ng/mlDDU (0-234) H 08/21/18 15:03 VBG pH 7.402 (7.320-7.420) 08/21/18 15:03 Sodium 137 mmol/L (137-145) 08/23/18 04:27 Potassium 3.5 mmol/L (3.6-5.0) L D 08/23/18 04:27 Chloride 99.7 mmol/L (98-107) 08/23/18 04:27 Carbon Dioxide 25 mmol/L (22-30) D 08/23/18 04:27 Anion Gap 16 mmol/L 08/23/18 04:27 BUN 12 mg/dL (7-17) 08/23/18 04:27 Creatinine 0.7 mg/dL (0.7-1.2) 08/23/18 04:27 Estimated GFR > 60 ml/min 08/23/18 04:27 BUN/Creatinine Ratio 17 % 08/23/18 04:27 Glucose 347 mg/dL (65-100) H 08/23/18 04:27 POC Glucose 308 (70-105) H 08/23/18 07:33 Hemoglobin A1c 14.0 % (4-6) H 08/22/18 00:33 Lactic Acid 1.70 mmol/L (0.7-2.0) 08/21/18 15:03 Calcium 8.9 mg/dL (8.4-10.2) 08/23/18 04:27 Phosphorus 3.60 mg/dL (2.5-4.5) 08/23/18 04:27 Magnesium 1.80 mg/dL (1.7-2.3) 08/23/18 04:27 Total Bilirubin 0.50 mg/dL (0.1-1.2) 08/21/18 13:23 AST 5 units/L (5-40) 08/21/18 13:23 ALT < 5 units/L (7-56) L 08/21/18 13:23 Alkaline Phosphatase 97 units/L (35-129) 08/21/18 13:23 Total Protein 9.1 g/dL (6.3-8.2) H 08/21/18 13:23 Albumin 3.4 g/dL (3.9-5) L 08/21/18 13:23 Albumin/Globulin Ratio 0.6 % 08/21/18 13:23 Urine Color Yellow (Yellow) 08/21/18 22:30 Urine Turbidity Clear (Clear) 08/21/18 22:30 Urine pH 5.0 (5.0-7.0) 08/21/18 22:30 Ur Specific [place] 1.060 (1.003-1.030) H 08/21/18 22:30 Urine Protein <15 mg/dl mg/dL (Negative) 08/21/18 22:30 Urine Glucose (UA) 150 mg/dL (Negative) 08/21/18 22:30 Urine Ketones 80 mg/dL (Negative) 08/21/18 22:30 Urine Blood Neg (Negative) 08/21/18 22:30 Urine Nitrite Neg (Negative) 08/21/18 22:30 Ur Reducing Substances Not Reportable 08/21/18 22:30 Urine Bilirubin Neg (Negative) 08/21/18 22:30 Urine Ictotest Not Reportable 08/21/18 22:30 Urine Urobilinogen 4.0 mg/dL (<2.0) 08/21/18 22:30 Ur Leukocyte Esterase Tr (Negative) 08/21/18 22:30 Urine WBC (Auto) 7.0 /HPF (0.0-6.0) H 08/21/18 22:30 Urine RBC (Auto) 5.0 /HPF (0.0-6.0) 08/21/18 22:30 U Epithel Cells (Auto) 1.0 /HPF (0-13.0) 08/21/18 22:30 Urine Mucus Few /HPF 08/21/18 22:30 Urine HCG, Qual Negative (Negative) 08/21/18 22:30 Active Medications - Current Medications Current Medications: Generic Name Dose Route Start Last Admin Trade Name Freq PRN Reason Stop Dose Admin Acetaminophen 650 mg 08/21/18 22:52 Tylenol PO Q4H PRN Pain MILD(1-3)/Fever >100.5/SMIHT Enoxaparin Sodium 40 mg 08/22/18 10:00 08/23/18 09:24 Lovenox SUB-Q Not Given QDAY [facility] Sodium Chloride 1,000 mls @ 100 mls/hr 08/22/18 03:00 08/23/18 02:03 Nacl 0.9% 1000 Ml IV 100 mls/hr DIRECT AMIRA Administration Piperacillin Sod/Tazobactam Sod 3.375 gm in 50 mls @ 100 mls/hr 08/22/18 04:00 08/23/18 04:37 Zosyn/Ns 3.375gm/50ml IV 100 mls/hr Q8H [facility] Administration Insulin Human Isoph/Insulin Regular 22 unit 08/23/18 08:00 08/23/18 08:37 Humulin 70/30 SUB-Q Not Given BIDDIAB [facility]A Insulin Human Regular 0 units 08/22/18 07:30 08/23/18 08:38 Humulin R SUB-Q 8 units ACHS AMIRA Administration Protocol Morphine Sulfate 2 mg 08/21/18 22:52 Morphine IV Q4H PRN Pain, Moderate (4-6) Ondansetron HCl 4 mg 08/21/18 22:52 Zofran IV Q8H PRN Nausea And Vomiting Sodium Chloride 10 ml 08/22/18 10:00 08/23/18 09:15 Sodium Chloride Flush Syringe 10 Ml IV 10 ml BID AMIRA Administration Sodium Chloride 10 ml 08/21/18 22:52 08/22/18 17:27 Sodium Chloride Flush Syringe 10 Ml IV 10 ml PRN PRN Administration LINE FLUSH
[2018-08-23] MEDS ORDERED: NACL 0.9% 1000 ML 1,000 ML ONE (10:55)
[2018-08-23] MEDS ORDERED: MARCAINE 0.5% INFILTRATI ONE ×2 (11:46→11:59)
[2018-08-23] MEDS ORDERED: XYLOCAINE 1% 20 mL ONE (11:46)
--- NOTE | 2018-08-23 11:46 | Anesthesia Consultation ---
Anesthesia Consult and Med Hx Date of service: 08/23/18 - Airway Anesthetic Teeth Evaluation: Poor (multiple missing), Chipped ROM Head & Neck: Adequate Mental/Hyoid Distance: Adequate Mallampati Class: Class I Intubation Access Assessment: Good - Pulmonary Exam CTA: Yes - Cardiac Exam Cardiac Exam: RRR - Pre-Operative Health Status ASA Pre-Surgery Classification: ASA3 Proposed Anesthetic Plan: MAC - Pre-Anesthesia Comment Pre-Anesthesia Comments: New DX DM, right foot ulcer - Endocrine Hx Insulin Dependent Diabetes: Yes
--- NOTE | 2018-08-23 11:47 | Anesthesia Day of Surgery ---
Anesthesia Day of Surgery - Day of Surgery Patient Examined: Yes Patient H&P Reviewed: Yes Patient is NPO: Yes
[2018-08-23] MEDS ORDERED: HumuLIN R IV ONE ×2 (11:59→12:58)
[2018-08-23] MEDS ORDERED: XYLOCAINE 1% 20 mL INFILTRATI ONE (11:59)
[2018-08-23] MEDS ORDERED: NACL 0.9% IR ONE (11:59)
[2018-08-23] MEDS ORDERED: DILAUDID ONE (12:02)
[2018-08-23] MEDS ORDERED: DIPRIVAN 10 MG/ML IV ONE ×3 (12:02→12:03)
[2018-08-23] MEDS ORDERED: XYLOCAINE MPF 2% ONE (12:02)
[2018-08-23] MEDS ORDERED: VERSED ONE (12:02)
--- NOTE | 2018-08-23 12:49 | Post Operative Note ---
Date of procedure: 08/23/18 Pre-op diagnosis: diabetic right foot wound, infected Post-op diagnosis: same Findings: infected foot wound extending to subcutaneous tissue and tendon Post op wound measurements: 2 cm x 4 cm x 3 cm. Tunneling towards posteriorly on dorsal aspect of foot about 4 cm Procedure: excisional debridement of right infected foot wound Surgeon: RONNIE HI Estimated blood loss: minimal Pathology: none Condition: stable Disposition: PACU
[2018-08-23] MEDS: ZOSYN/NS 4.5GM/100ML 4.5 GM/100 ML VIAL IV SCH ×2 (14:47→21:57)
--- NOTE | 2018-08-23 20:19 | Magnetic Resonance Report ---
PROCEDURE: MR LE NONJOINT RT WO CON HISTORY: right foot abscess r/o osteo FINDINGS: MRI of the right foot was performed using sagittal T1, sagittal inversion recovery, short a xis T1, short axis saturated T2, long axis T1 and long axis fat saturated T2-weighted images. The examination is limited by use of an appropriately large [id number], by poor field homogeneity and by lack of intravenous contrast. The area of interest appears to be the first digit which is at t he edge of the scanning volume and suffers from single dropout at the margins of the magnetic field. The examination is also limited by lack of post-contrast imaging. There is soft tissue loss of the interspace between the first and second digits. This likely represen ts a region of debridement. No abscess is seen at the present time. There is increased fat saturated T2 signal intensity within the first proximal phalanx and first dist al phalanx on fat-saturated T2-weighted images, with preservation of normal T1 signal. This is more c onsistent with presence of reactive bone edema within the proximal and distal phalangeal rather than osteomyelitis, which would be expected to display decreased T1 signal intensity. The examination is l imited by the use of an inappropriately large [id number] and by poor MR signal within the area of interest. Repeat surface-coronal MRI, focused on the fore-foot, to include postcontrast imaging, is r ecommended. There is soft tissue edema within the midfoot and forefoot likely cellulitis. IMPRESSION: Patient is status post debridement between the first and second digits. No abscess is see n at the present time Bone edema within the first proximal phalanx and first distal phalanx, with preservation of normal T1 signal. This is more consistent with reactive bone edema rather than osteomyelitis, but given the li mitations of the examination, repeat examination, using appropriate field of view for the forefoot, a nd to include postcontrast imaging, is recommended. This document is electronically signed by August Fleming MD., August 23 2018 08:17:16 PM ET
--- NOTE | 2018-08-23 20:52 | Operative Report ---
PREOPERATIVE DIAGNOSIS: Diabetic right foot wounds, infected. POSTOPERATIVE DIAGNOSIS: Diabetic right foot wounds, infected. FINDINGS: 1. Infected dorsal foot wound extending to subcutaneous tissue and tendon. Preop measurment : 2cm x 2cm x 2 cm Postop wound measurements: 2 cm x 4 cm x 3 cm. Tunneling posteriorly on dorsal aspect of the foot about 4 cm. 2. Wound of plantar aspect of 1st metatarsal Preop measurement: 1 cm x 1cm Post op measurement: 1 cm x 1cm x 0.2 cm PROCEDURE: Excisional debridement of right infected foot wounds. BEAUTY CONSULTANT: Marilia Brock DO ESTIMATED BLOOD LOSS: Minimal. PATHOLOGY: None. CONDITION: Stable. DISPOSITION: The patient to PACU. HISTORY OF PRESENT ILLNESS AND INDICATION: The patient is a 48-year-old female who presented to the hospital with complaints of right foot pain and drainage. The patient had bumped her toe on something several weeks ago and it opened up and the cut never healed. She noticed the area becoming more swollen and red and the area opened up and drained copious amounts of pus and bloody drainage. The wound was assessed at the bedside and there was a large amount of slough and an abscess cavity that needed to be further debrided and drained and therefore it was recommended that she go to the operating room. All risks, benefits and alternatives to the surgery were discussed with the patient and questions answered. Consent was obtained. Wound cultures were already obtained at the bedside. DESCRIPTION OF PROCEDURE: The patient was identified in preoperative area and taken back to the operating room and placed on the operating table in supine position. The right leg was already marked in the preop area. The right foot was prepped and draped in the usual sterile fashion after anesthesia was induced. A timeout was performed. A digital block was performed using a mixture of 0.05% Marcaine and 1% lidocaine. The opening that was already present in between the first and second toes was extended using a 15 blade. The wound was probed and a cotton-tipped applicator was able to be probed on the dorsal aspect of the foot through the subcutaneous tissue posteriorly approximately 4 cm where an abscess cavity was present. The purulent material was drained. All slough and necrotic tissue on the wound bed was debrided sharply using a combination of forceps and scissors as well as a 15 blade. A curette was also used to remove any devitalized tissue. The wound was then copiously irrigated and hemostasis achieved using a combination of electrocautery and Surgicel packing. Prior to packing the wound, the wound bed did appear healthy and red and there was no more purulent drainage from the abscess cavity. The wound was packed with Surgicel and hemostasis ensured. The Surgicel was left in place and the remainder of the wound was packed with saline moistened Kerlix. There was a callus and a wound present on the plantar aspect of the first metatarsal. This was debrided sharply using forceps and scissors and all callus and devitalized tissue was removed sharply. The wound base was debrided with a curette and all biofilm and slough was removed. The wound was checked for hemostasis, which was achieved with pressure. The wound measured approximately 1 cm x 1 cm x 0.2 cm. After hemostasis was ensured. This wound was also packed with saline moistened gauze. Both wounds were covered with dry 4 x 4 gauze and wrapped with Kerlix. The patient tolerated the procedure well. All sponge, instrument and sharp counts were correct x 2 at the end of the case. The patient was awoken from anesthesia and taken to PACU in stable condition. JOB# [id number] JESSY/MARII LAINEZ
[2018-08-24 06:10] LABS: Basophils # (Auto) 0.1 K/mm3 (0.0-0.1); Basophils % (Auto) 0.8 % (0.0-1.8); Eosinophils # (Auto) 0.2 K/mm3 (0.0-0.4); Eosinophils % (Auto) 2.8 % (0.0-4.3); Hematocrit 26.6 % (30.3-42.9); Hemoglobin 8.5 gm/dl (10.1-14.3); Lymphocytes # (Auto) 2.5 K/mm3 (1.2-5.4); Lymphocytes % (Auto) 28.1 % (13.4-35.0); Mean Corpuscular HGB Conc 32 % (30-34); Mean Corpuscular Volume 71 fl (79-97); Monocytes # (Auto) 0.5 K/mm3 (0.0-0.8); Monocytes % (Auto) 5.7 % (0.0-7.3); Platelet Count 315 K/mm3 (140-440); Red Blood Count 3.73 M/mm3 (3.65-5.03); Red Cell Distribution Width 16.5 % (13.2-15.2)
[2018-08-24] MEDS: NACL 0.9% 1000 ML 1,000 ML IV SCH ×2 (06:17→21:10)
[2018-08-24] MEDS: ZOSYN/NS 4.5GM/100ML 4.5 GM/100 ML VIAL IV SCH (06:17)
[2018-08-24 06:47] LABS: BUN/Creatinine Ratio 15; Blood Urea Nitrogen 6 mg/dL (7-17); Calcium 8.1 mg/dL (8.4-10.2); Hemolysis Index 11
[2018-08-24] MEDS: HumuLIN R SUB-Q SCH ×4 (09:15→22:14)
[2018-08-24] MEDS: LOVENOX SUB-Q SCH (09:15)
[2018-08-24] MEDS: SODIUM CHLORIDE FLUSH SYRINGE 10 ML IV SCH ×2 (09:16→21:10)
--- NOTE | 2018-08-24 11:36 | Progress Note ---
Assessment and Plan 48 yo F s/p excisional debridement of right foot wounds, POD 1 1. DM 2. infected right foot wound MRI RLE - reactive edema of bone, no definite evidence of osteomyelitis. Plan: 1. discussed with batch tester - will assess patient for wound vac 2. offloading - discussed with patient 3. strict glucose control 4. continue abx 5. wound and blood cx - staph aureus, final pending. On contact precautions. Will consult ID for antibiotic recs 6. midline consult, poor IV access 7. prn pain control 8. outpatient follow up in wound care clinic Thank you, please call with questions. Subjective Date of service: 08/24/18 Narrative: Pt seen and examined. c/o minimal soreness at surgical site. No f/c. Objective Vital Signs - 12hr 08/24/18 08/24/18 00:00 04:57 Temperature 98.8 F Pulse Rate 86 Pulse Rate [ 87 Apical] Pulse Rate [ 87 Left Radial] Respiratory 18 Rate Blood Pressure 129/77 O2 Sat by Pulse 92 Oximetry - General physical appearance Narrative Exam: Gen: AAOx3. NAD CV: s1, s2+ resp: even and unlabored Ext: R foot with dressing c/d/i. No edema or TTP of foot or ankle - Labs 08/24/18 05:43 08/24/18 05:43 Diabetes panel 08/24/18 Range/Units 05:43 Sodium 140 (137-145) mmol/L Potassium 3.5 L (3.6-5.0) mmol/L Chloride 101.7 (98-107) mmol/L Carbon Dioxide 23 (22-30) mmol/L BUN 6 L (7-17) mg/dL Creatinine 0.4 L (0.7-1.2) mg/dL Glucose 238 H (65-100) mg/dL Calcium 8.1 L (8.4-10.2) mg/dL Calcium panel 08/24/18 Range/Units 05:43 Calcium 8.1 L (8.4-10.2) mg/dL Phosphorus 3.00 (2.5-4.5) mg/dL Pituitary panel 08/24/18 Range/Units 05:43 Sodium 140 (137-145) mmol/L Potassium 3.5 L (3.6-5.0) mmol/L Chloride 101.7 (98-107) mmol/L Carbon Dioxide 23 (22-30) mmol/L BUN 6 L (7-17) mg/dL Creatinine 0.4 L (0.7-1.2) mg/dL Glucose 238 H (65-100) mg/dL Calcium 8.1 L (8.4-10.2) mg/dL Adrenal panel 08/24/18 Range/Units 05:43 Sodium 140 (137-145) mmol/L Potassium 3.5 L (3.6-5.0) mmol/L Chloride 101.7 (98-107) mmol/L Carbon Dioxide 23 (22-30) mmol/L BUN 6 L (7-17) mg/dL Creatinine 0.4 L (0.7-1.2) mg/dL Glucose 238 H (65-100) mg/dL Calcium 8.1 L (8.4-10.2) mg/dL
--- NOTE | 2018-08-24 11:42 | Progress Note ---
Assessment and Plan Assessment and plan: --Diabetic foot ulcer; IV antibiotics, wound care, elevate the limb CT right foot; cellulitis no evidence of osteomyelitis or abscess s/p excisional debridement of right infected foot wound Current Wound Care --Sepsis/staph aureus wound infection; contact isolation Sai and Erin, ID consultation, repeat cultures --Leukocytosis; secondary to sepsis /foot ulcer trending down --Uncontrolled diabetes mellitus/hyperglycemia Accu-Chek,SSC and ADA diet, 7030 Humulin, dose increased to 22 twice a day Hemoglobin A1c 14, diabetic education, nutrition counseling Possible home health nurse at discharge for disease management --Hyponatremia; significantly improved --Metabolic acidosis; secondary to hyperglycemia, vigorous IV hydration Resolved --Elevated d-dimer ; CTA chest negative, will check lower extremity venous Doppler Rule out DVT --Moderate malnutrition/hypoalbuminemia, nutrition supplements and supportive care --DVT prophylaxis; Lovenox Will monitor closely and adjust the management as needed Consultation and recommendations noted and appreciated Plan of care reviewed with the patient and her nurse Hospitalist Physical - Constitutional Vitals: Temp Pulse Resp BP Pulse Ox 98.8 F 86 18 129/77 92 08/24/18 04:57 08/24/18 04:57 08/24/18 04:57 08/24/18 04:57 08/24/18 04:57 General appearance: Present: no acute distress, well-nourished, obese - EENT Eyes: Present: PERRL, EOM intact - Neck Neck: Present: supple, normal ROM - Respiratory Respiratory effort: normal Respiratory: bilateral: diminished, negative: rales, rhonchi, wheezing - Cardiovascular Rhythm: regular Heart Sounds: Present: S1 & S2 - Extremities Extremities: no ischemia, No edema, abnormal (wound dressing and wound VAC in place) - Abdominal General gastrointestinal: soft, non-tender, non-distended, normal bowel sounds - Integumentary Integumentary: Present: clear, warm - Psychiatric Psychiatric: appropriate mood/affect, cooperative - Neurologic Neurologic: moves all extremities Results - Labs CBC & Chem 7: 08/24/18 05:43 08/24/18 05:43 Labs: Laboratory Last Values WBC 8.8 K/mm3 (4.5-11.0) 08/24/18 05:43 RBC 3.73 M/mm3 (3.65-5.03) 08/24/18 05:43 Hgb 8.5 gm/dl (10.1-14.3) L 08/24/18 05:43 Hct 26.6 % (30.3-42.9) L 08/24/18 05:43 MCV 71 fl (79-97) L 08/24/18 05:43 MCH 23 pg (28-32) L 08/24/18 05:43 MCHC 32 % (30-34) 08/24/18 05:43 RDW 16.5 % (13.2-15.2) H 08/24/18 05:43 Plt Count 315 K/mm3 (140-440) 08/24/18 05:43 Lymph % (Auto) 28.1 % (13.4-35.0) 08/24/18 05:43 [place] % (Auto) 5.7 % (0.0-7.3) 08/24/18 05:43 Eos % (Auto) 2.8 % (0.0-4.3) 08/24/18 05:43 Baso % (Auto) 0.8 % (0.0-1.8) 08/24/18 05:43 Lymph # 2.5 K/mm3 (1.2-5.4) 08/24/18 05:43 [place] # 0.5 K/mm3 (0.0-0.8) 08/24/18 05:43 Eos # 0.2 K/mm3 (0.0-0.4) 08/24/18 05:43 Baso # 0.1 K/mm3 (0.0-0.1) 08/24/18 05:43 Seg Neutrophils % 62.6 % (40.0-70.0) 08/24/18 05:43 Seg Neutrophils # 5.5 K/mm3 (1.8-7.7) 08/24/18 05:43 D-Dimer 728.45 ng/mlDDU (0-234) H 08/21/18 15:03 VBG pH 7.402 (7.320-7.420) 08/21/18 15:03 Sodium 140 mmol/L (137-145) 08/24/18 05:43 Potassium 3.5 mmol/L (3.6-5.0) L 08/24/18 05:43 Chloride 101.7 mmol/L (98-107) 08/24/18 05:43 Carbon Dioxide 23 mmol/L (22-30) 08/24/18 05:43 Anion Gap 19 mmol/L 08/24/18 05:43 BUN 6 mg/dL (7-17) L 08/24/18 05:43 Creatinine 0.4 mg/dL (0.7-1.2) L 08/24/18 05:43 Estimated GFR > 60 ml/min 08/24/18 05:43 BUN/Creatinine Ratio 15 % 08/24/18 05:43 Glucose 238 mg/dL (65-100) H 08/24/18 05:43 POC Glucose 315 (70-105) H 08/24/18 11:27 Hemoglobin A1c 14.0 % (4-6) H 08/22/18 00:33 Lactic Acid 1.70 mmol/L (0.7-2.0) 08/21/18 15:03 Calcium 8.1 mg/dL (8.4-10.2) L 08/24/18 05:43 Phosphorus 3.00 mg/dL (2.5-4.5) 08/24/18 05:43 Magnesium 1.60 mg/dL (1.7-2.3) L 08/24/18 05:43 Total Bilirubin 0.50 mg/dL (0.1-1.2) 08/21/18 13:23 AST 5 units/L (5-40) 08/21/18 13:23 ALT < 5 units/L (7-56) L 08/21/18 13:23 Alkaline Phosphatase 97 units/L (35-129) 08/21/18 13:23 Total Protein 9.1 g/dL (6.3-8.2) H 08/21/18 13:23 Albumin 3.4 g/dL (3.9-5) L 08/21/18 13:23 Albumin/Globulin Ratio 0.6 % 08/21/18 13:23 Urine Color Yellow (Yellow) 08/21/18 22:30 Urine Turbidity Clear (Clear) 08/21/18 22:30 Urine pH 5.0 (5.0-7.0) 08/21/18 22:30 Ur Specific [place] 1.060 (1.003-1.030) H 08/21/18 22:30 Urine Protein <15 mg/dl mg/dL (Negative) 08/21/18 22:30 Urine Glucose (UA) 150 mg/dL (Negative) 08/21/18 22:30 Urine Ketones 80 mg/dL (Negative) 08/21/18 22:30 Urine Blood Neg (Negative) 08/21/18 22:30 Urine Nitrite Neg (Negative) 08/21/18 22:30 Ur Reducing Substances Not Reportable 08/21/18 22:30 Urine Bilirubin Neg (Negative) 08/21/18 22:30 Urine Ictotest Not Reportable 08/21/18 22:30 Urine Urobilinogen 4.0 mg/dL (<2.0) 08/21/18 22:30 Ur Leukocyte Esterase Tr (Negative) 08/21/18 22:30 Urine WBC (Auto) 7.0 /HPF (0.0-6.0) H 08/21/18 22:30 Urine RBC (Auto) 5.0 /HPF (0.0-6.0) 08/21/18 22:30 U Epithel Cells (Auto) 1.0 /HPF (0-13.0) 08/21/18 22:30 Urine Mucus Few /HPF 08/21/18 22:30 Urine HCG, Qual Negative (Negative) 08/21/18 22:30 Active Medications - Current Medications Current Medications: Generic Name Dose Route Start Last Admin Trade Name Freq PRN Reason Stop Dose Admin Acetaminophen 650 mg 08/21/18 22:52 Tylenol PO Q4H PRN Pain MILD(1-3)/Fever >100.5/SMITH Enoxaparin Sodium 40 mg 08/22/18 10:00 08/24/18 09:15 Lovenox SUB-Q 40 mg QDAY AMIRA Administration Sodium Chloride 1,000 mls @ 100 mls/hr 08/22/18 03:00 08/24/18 06:17 Nacl 0.9% 1000 Ml IV 100 mls/hr DIRECT AMIRA Administration Piperacillin Sod/Tazobactam Sod 4.5 gm in 100 mls @ 200 mls/hr 08/23/18 14:00 08/24/18 06:17 Zosyn/Ns 4.5gm/100ml IV 200 mls/hr Q8HR AMIRA Administration Insulin Human Isoph/Insulin Regular 22 unit 08/23/18 08:00 08/24/18 09:15 Humulin 70/30 SUB-Q 22 unit BIDDIAB AMIRA Administration Insulin Human Regular 0 units 08/22/18 07:30 08/24/18 09:15 Humulin R SUB-Q 6 units ACHS AMIRA Administration Protocol Morphine Sulfate 2 mg 08/21/18 22:52 08/24/18 09:24 Morphine IV 2 mg Q4H PRN Administration Pain, Moderate (4-6) Ondansetron HCl 4 mg 08/21/18 22:52 Zofran IV Q8H PRN Nausea And Vomiting Sodium Chloride 10 ml 08/22/18 10:00 08/24/18 09:16 Sodium Chloride Flush Syringe 10 Ml IV 10 ml BID AMIRA Administration Sodium Chloride 10 ml 08/21/18 22:52 08/22/18 17:27 Sodium Chloride Flush Syringe 10 Ml IV 10 ml PRN PRN Administration LINE FLUSH Nutrition/Malnutrition Assess - Dietary Evaluation Nutrition/Malnutrition Findings: Nutrition Notes Start: 08/23/18 14:59 Freq: Status: Active Protocol: Document 08/23/18 14:59 RM (Rec: 08/23/18 15:09 RM [id number]) Nutrition Notes Need for Assessment generated 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 Recorded PO intake 100% X 3 meals. Burn Absent Trauma Absent #1 Nutrition Diagnosis Increased nutrient needs ( specify in comment below) Comments: arginine, glutamine Etiology wound healing As Evidenced by Signs and Symptoms R foot wound Is patient on ventilator? No Is Patient Ambulatory and/or Out of Bed Yes REE-(Barber-St. or-ambulatory/OOB) [ 2257.450 NUTR.[id number]] Kcal/Kg value to use for calculation 17 Approximate Energy Requirements Using 1790 kcal/Kg Calculation Used for Recommendations Kcal/kg Additional Notes Protein Needs: 101-126g (1.2-1 .5g/kg 84 kg adjBW) Fluid Needs: 1 ml/kcal Nutrition Intervention Change Diet Order: Continue current Add Supplement/Snack (indicate name/kcal O[place] BID /protein ) Provides kCal: 190 Provides Protein (gm) 5 Goal #1 Continue to meet at least 75% of calorie and protein needs via PO intakes Anticipated Discharge Needs: Consistent CHO diet Follow-Up By: 08/25/18 Additional Comments Follow for intakes, Omer intake, DM diet education
[2018-08-24] MEDS ORDERED: PERCOCET 5/325 PO PRN (11:59)
--- NOTE | 2018-08-24 11:59 | Consultation ---
History of Present Illness - Reason for Consult Consult date: 08/24/18 Right Diabetic fool infection Requesting physician: RONNIE HI - History of Present Illness This patient is a 48 year old female with no prior medical history who presents to the ED on 08/21/18 with complaints of a right great toe injury that developed into an infection. Patient states that a month ago she accidentally stepped on something when she was walking and notice an open area on her toe. Patient admits to keeping the area cleaned and dressed, however 3 days ago she noticed redness and swelling and a large amount of purulent drainage with accompanying chills, no fever. On admission WBC 12, Creatinine 0.4, Temperature 97.5, HR 116, BP 127/89. U/A with mild Pyuria, WBC 7.0, with trace LE. Chest xray showed no consolidation. Blood cultures were drawn and show Staph aureues bacteremia 1 out of 4 bottles. Wound cultures show Staph aureus . Review of Systems: General: No fever, +chills, no nightsweats, unintentional weight change, or change in appetite Cutaneous: no rash, pruritus Head: no headaches or injury Eyes: no changes in vision, eye pain, double vision Ears: no ear pain, ear discharge, ringing or hearing loss Nose: no nose bleeding, stuffiness Mouth & throat: no bleeding gums, no horseness, no dental problems, or swollen glands Neck: no pain, node enlargement/lumps, tyroid enlargement or tenderness Respiratory: no cough, wheezing, sputum, hemoptysis, pleuritic chest pain Cardiovascular: no chest pain, leg edema, cyanosis, WIGGINS, orthopnea Musculoskeletal: +diabetic Ulceration right big toe and second toe, wrapped in dressing Gastrointestinal: + nausea, vomiting, hematemesis, diarrhea, constipation, melena, Genitourinary/Reproductive: no frequent urination, no dysuria, hematuria, incontinence Neurogical: no seizures, no headaches, no weakness, no paresthesias, no loss of speech or vision; no memory loss, no vertigo, no tremors, no numbness Psychiatric: stable mood; no excessive anxiety, sadness or moodiness Past History Past Medical History: No medical history Past Surgical History: (x3) Social history: no significant social history, lives with family Family history: CAD (mother and father has diabetes, father has heart disease), diabetes Medications and Allergies Allergies Allergy/AdvReac Type Severity Reaction Status Date / Time No Known Allergies Allergy Verified 08/21/18 13:05 Home Medications Medication Instructions Recorded Confirmed Last Taken Type No Known Home Medications [No 08/23/18 08/23/18 Unknown History Reported Home Medications] Active Meds: Active Medications Acetaminophen (Tylenol) 650 mg PO Q4H PRN PRN Reason: Pain MILD(1-3)/Fever >100.5/SMITH Enoxaparin Sodium (Lovenox) 40 mg SUB-Q QDAY [facility] Last Admin: 08/24/18 09:15 Dose: 40 mg Documented by: Sodium Chloride (Nacl 0.9% 1000 Ml) 1,000 mls @ 100 mls/hr IV DIRECT [facility] Last Admin: 08/24/18 06:17 Dose: 100 mls/hr Documented by: Piperacillin Sod/Tazobactam Sod (Zosyn/Ns 4.5gm/100ml) 4.5 gm in 100 mls @ 200 mls/hr IV Q8HR [facility] Last Admin: 08/24/18 06:17 Dose: 200 mls/hr Documented by: Vancomycin HCl 2,000 mg/ (Sodium Chloride) 540 mls @ 250 mls/hr IV ONCE ONE Stop: 08/24/18 14:39 Insulin Human Isoph/Insulin Regular (Humulin 70/30) 22 unit SUB-Q BIDDIAB [facility] Last Admin: 08/24/18 09:15 Dose: 22 unit Documented by: Insulin Human Regular (Humulin R) 0 units SUB-Q ACHS [facility]; Protocol Last Admin: 08/24/18 09:15 Dose: 6 units Documented by: Morphine Sulfate (Morphine) 2 mg IV Q4H PRN PRN Reason: Pain, Moderate (4-6) Last Admin: 08/24/18 09:24 Dose: 2 mg Documented by: Ondansetron HCl (Zofran) 4 mg IV Q8H PRN PRN Reason: Nausea And Vomiting Sodium Chloride (Sodium Chloride Flush Syringe 10 Ml) 10 ml IV BID AMIRA Last Admin: 08/24/18 09:16 Dose: 10 ml Documented by: Sodium Chloride (Sodium Chloride Flush Syringe 10 Ml) 10 ml IV PRN PRN PRN Reason: LINE FLUSH Last Admin: 08/22/18 17:27 Dose: 10 ml Documented by: Physical Examination - Physical Exam Narrative exam: Constitutional: Alert, cooperative. No acute distress Head, Ears, Nose: Normocephalic, atraumatic. External ears, nose normal Eyes: Conjunctivae/corneas clear. No icterus. No ptosis. Neck: Supple, no meningeal signs Oral: dentition poor. thrush + on buccal mucosa and oropharynx. Cardiovascular: S1, S2 normal. Respiratory: Good air entry, clear to auscultation bilaterally GI: Soft, non-tender; bowel sounds normal. No peritoneal signs Musculoskeletal: cellulitis of right great toe and medial forefront. s/p debridement, dressing dry and intact Skin: No rash or abscess. + right foot dressing Hem/Lymphatic: No palpable cervical or supraclavicular nodes. No lymphangitis Psych: Mood ok. Affect normal Neurological: Awake, alert, oriented. - Constitutional Vitals: Vital Signs Temp Pulse Resp BP Pulse Ox 98.8 F 86 18 129/77 92 08/24/18 04:57 08/24/18 04:57 08/24/18 04:57 08/24/18 04:57 08/24/18 04:57 Temperature -Last 24 Hours Temperature 98.8 F Temperature 98.7 F Temperature 98.3 F Temperature 97.3 F Temperature 97.3 F Temperature 97.6 F Results - Labs CBC & Chem 7: 08/24/18 05:43 08/24/18 05:43 Labs: Abnormal lab results 08/23/18 08/23/18 08/23/18 Range/Units 12:59 13:49 17:19 Hgb (10.1-14.3) gm/dl Hct (30.3-42.9) % MCV (79-97) fl MCH (28-32) pg RDW (13.2-15.2) % Potassium (3.6-5.0) mmol/L BUN (7-17) mg/dL Creatinine (0.7-1.2) mg/dL Glucose (65-100) mg/dL POC Glucose 270 H 165 H 321 H (70-105) Calcium (8.4-10.2) mg/dL Magnesium (1.7-2.3) mg/dL 08/23/18 08/24/18 08/24/18 Range/Units 21:11 05:43 05:43 Hgb 8.5 L (10.1-14.3) gm/dl Hct 26.6 L (30.3-42.9) % MCV 71 L (79-97) fl MCH 23 L (28-32) pg RDW 16.5 H (13.2-15.2) % Potassium 3.5 L (3.6-5.0) mmol/L BUN 6 L (7-17) mg/dL Creatinine 0.4 L (0.7-1.2) mg/dL Glucose 238 H (65-100) mg/dL POC Glucose 300 H (70-105) Calcium 8.1 L (8.4-10.2) mg/dL Magnesium 1.60 L (1.7-2.3) mg/dL 08/24/18 08/24/18 Range/Units 07:46 11:27 Hgb (10.1-14.3) gm/dl Hct (30.3-42.9) % MCV (79-97) fl MCH (28-32) pg RDW (13.2-15.2) % Potassium (3.6-5.0) mmol/L BUN (7-17) mg/dL Creatinine (0.7-1.2) mg/dL Glucose (65-100) mg/dL POC Glucose 264 H 315 H (70-105) Calcium (8.4-10.2) mg/dL Magnesium (1.7-2.3) mg/dL - Imaging and Cardiology Chest x-ray: report reviewed ( There is no acute parenchymal infiltrate, pleural effusion, or pneumothorax seen. The visualized bony structures are within normal limits. ) CT scan - chest: report reviewed (No evidence for acute pulmonary embolus. ) Assessment and Plan Cultures 08/21/18 Blood: Staph aureus, 1 out of 4 bottles 08/21/18 Wound: Staph aureus A/P: 48 year old female with no prior medical history who presents to the ED on 08/21/18 with complaints of a right great toe injury that developed into an infection. Patient states that a month ago she accidentally stepped on something when she was walking and notice an open area on her toe. Patient admits to keeping the area cleaned and dressed, however 3 days ago when she noticed redness and swelling and a large amount of purulent drainage with accompanying chills, no fever. Now admitted with : 1. Sepsis on admission; Evidenced by leukocytosis and tachycardia. Etiology Staph aureus bactermia. Source most likely right diabetic foot ulcer. No fever. U/A show was not consistent with a UTI. Currently being treated with vancomycin and zosyn. 2. Staph aurues Bacterremia: cultures grew 1 out of 4 bottles, source diabetic foot ulcer. Follow up ID and AZUL's. 3. Infected Diabetic right foot ulcer: : Infected foot wound extending to subcutaneous tissue and tendon. Exisional debridement of right foot on 08/23/18. Post op wound measurements: 2 cm x 4 cm x 3 cm. Tunneling towards posteriorly on dorsal aspect of foot about [address] shows suspected cellulitis of right great toe and medial forefront. MRI RLE shows reactive edema of bone, no definite evidence of osteomyelitis. Wound culture grew Staph aureus,. Follow up ID and AZUL's. 4. Newly Diagnosed Type 2 Diabetes: A1C 14. recommend tight glycemic control. Plan: -f/u blood and wound cultures for ID and AZUL's -Continue wound care -Continue Vancomycin -Discontinue Zosyn -TTE ordered [facility] M: [id number] O:[phone]
[2018-08-24] MEDS ORDERED: MORPHINE IV PRN (12:00)
[2018-08-24] MEDS ORDERED: VANCOMYCIN/NS 1 GM/250 ML 1 GM/250 ML BAG IV SCH (12:00)
[2018-08-24] MEDS ORDERED: VANCOMYCIN PHARMACY TO DOSE IV SCH (12:00)
[2018-08-24] MEDS ORDERED: VANCOMYCIN 2,000 MG in NACL 0.9% 500 ML 500 ML IV ONE (12:30)
[2018-08-25] MEDS: VANCOMYCIN 1,500 MG in NACL 0.9% 500 ML 500 ML IV SCH ×2 (06:39→19:07)
[2018-08-25] MEDS: NACL 0.9% 1000 ML 1,000 ML IV SCH ×2 (06:43→22:42)
[2018-08-25] MEDS: HumuLIN R SUB-Q SCH ×4 (09:30→22:37)
[2018-08-25] MEDS: LOVENOX SUB-Q SCH (09:31)
[2018-08-25] MEDS: SODIUM CHLORIDE FLUSH SYRINGE 10 ML IV SCH ×2 (09:32→22:38)
--- NOTE | 2018-08-25 10:23 | Progress Note ---
Assessment and Plan Cultures 08/21/18 Blood: Staph aureus, 1 out of 4 bottles 08/21/18 Wound: Staph aureus 08/24/18: Blood: in progress A/P: 48 year old female with no prior medical history who presents to the ED on 08/21/18 with complaints of a right great toe injury that developed into an infection. Patient states that a month ago she accidentally stepped on something when she was walking and notice an open area on her toe. Patient admits to keeping the area cleaned and dressed, however 3 days ago when she noticed redness and swelling and a large amount of purulent drainage with accompanying chills, no fever. Now admitted with : 1. Sepsis on admission; Resolved. Etiology Staph aureus bactermia. Source most likely right diabetic foot ulcer. No fever. U/A show was not consistent with a UTI. Currently being treated with vancomycin and zosyn. 2. Staph aureus Bacterremia: cultures grew 1 out of 4 bottles, source diabetic foot ulcer. Follow up ID and AZUL's. 3. Infected Diabetic right foot ulcer: : Infected foot wound extending to subcutaneous tissue and tendon. Exisional debridement of right foot on 08/23/18. Post op wound measurements: 2 cm x 4 cm x 3 cm. Tunneling towards posteriorly on dorsal aspect of foot about [address] shows suspected cellulitis of right great toe and medial forefront. MRI RLE shows reactive edema of bone, no definite evidence of osteomyelitis. Wound culture grew Staph aureus,. Follow up ID and AZUL's. 4. Newly Diagnosed Type 2 Diabetes: A1C 14. recommend tight glycemic control. Plan: -f/u blood and wound cultures for ID and AZUL's -Continue wound care -Continue Vancomycin, D2 - f/u TTE ordered -CBC ordered for tomorrow -f/u repeat blood cultures to ensure clearance, then will need PICC line with 4 weeks of abx. [facility] M: [id number] O:[phone] Subjective Date of service: 08/25/18 Interval history: Patient seen and examined. No SOB or rashes. No fevers. No generalized pain or right foot pain reported. Objective - Exam Narrative Exam: Constitutional: Alert, cooperative. No acute distress Head, Ears, Nose: Normocephalic, atraumatic. External ears, nose normal Eyes: Conjunctivae/corneas clear. No icterus. No ptosis. Neck: Supple, no meningeal signs Oral: dentition fair. No thrush Cardiovascular: S1, S2 normal. Respiratory: Good air entry, clear to auscultation bilaterally GI: Soft, non-tender; bowel sounds normal. No peritoneal signs Musculoskeletal: cellulitis of right great toe and medial forefront. s/p debridement, dressing dry and intact Skin: No rash or abscess. + right foot dressing and wound Vac Hem/Lymphatic: No palpable cervical or supraclavicular nodes. No lymphangitis Psych: Mood ok. Affect normal Neurological: Awake, alert, oriented. - Constitutional Vitals: Vital Signs Temp Pulse Resp BP Pulse Ox 98.4 F 72 18 132/82 96 08/25/18 04:46 08/25/18 04:46 08/25/18 04:46 08/25/18 04:46 08/25/18 04:46 Temperature -Last 24 Hours Temperature 98.4 F Temperature 98.7 F Temperature 98.2 F Temperature 98.0 F - Labs CBC & Chem 7: 08/24/18 05:43 08/24/18 05:43 Labs: Abnormal lab results 08/24/18 08/24/18 08/24/18 Range/Units 11:27 16:10 21:05 POC Glucose 315 H 307 H 286 H (70-105) 08/25/18 Range/Units 08:35 POC Glucose 199 H (70-105)
--- NOTE | 2018-08-25 10:56 | Progress Note ---
Assessment and Plan Assessment and plan: --Diabetic foot ulcer; IV antibiotics, wound care, elevate the limb CT right foot; cellulitis no evidence of osteomyelitis or abscess s/p excisional debridement with wound VAC in place --Sepsis/staph aureus wound infection; contact isolation Cefazolin per ID , --Leukocytosis; secondary to sepsis /foot ulcer trending down --Uncontrolled diabetes mellitus/hyperglycemia Accu-Chek,SSC and ADA diet, 7030 Humulin, dose increased to 22 twice a day Hemoglobin A1c 14, diabetic education, nutrition counseling Possible home health nurse at discharge for disease management --Hyponatremia; significantly improved --Metabolic acidosis; secondary to hyperglycemia, vigorous IV hydration Resolved --Elevated d-dimer ; CTA chest negative, will check lower extremity venous Doppler Rule out DVT --Moderate malnutrition/hypoalbuminemia, nutrition supplements and supportive care --DVT prophylaxis; Lovenox Will monitor closely and adjust the management as needed Consultation and recommendations noted and appreciated Plan of care reviewed with the patient and her nurse History Interval history: Patient seen and examined medical records reviewed patient feels better no new complaints Vital signs noted Hospitalist Physical - Constitutional Vitals: Temp Pulse Resp BP Pulse Ox 98.4 F 72 18 132/82 96 08/25/18 04:46 08/25/18 04:46 08/25/18 04:46 08/25/18 04:46 08/25/18 04:46 General appearance: Present: no acute distress, well-nourished, obese - EENT Eyes: Present: PERRL, EOM intact - Neck Neck: Present: supple, normal ROM - Respiratory Respiratory effort: normal Respiratory: bilateral: diminished, negative: rales, rhonchi, wheezing - Cardiovascular Rhythm: regular Heart Sounds: Present: S1 & S2 - Extremities Extremities: abnormal (dressings intact, wound VAC in place) - Abdominal General gastrointestinal: soft, non-tender, non-distended, normal bowel sounds - Integumentary Integumentary: Present: clear, warm - Psychiatric Psychiatric: appropriate mood/affect, cooperative - Neurologic Neurologic: moves all extremities Results - Labs CBC & Chem 7: 08/26/18 00:18 08/24/18 05:43 Labs: Laboratory Last Values WBC 8.8 K/mm3 (4.5-11.0) 08/24/18 05:43 RBC 3.73 M/mm3 (3.65-5.03) 08/24/18 05:43 Hgb 8.5 gm/dl (10.1-14.3) L 08/24/18 05:43 Hct 26.6 % (30.3-42.9) L 08/24/18 05:43 MCV 71 fl (79-97) L 08/24/18 05:43 MCH 23 pg (28-32) L 08/24/18 05:43 MCHC 32 % (30-34) 08/24/18 05:43 RDW 16.5 % (13.2-15.2) H 08/24/18 05:43 Plt Count 315 K/mm3 (140-440) 08/24/18 05:43 Lymph % (Auto) 28.1 % (13.4-35.0) 08/24/18 05:43 [place] % (Auto) 5.7 % (0.0-7.3) 08/24/18 05:43 Eos % (Auto) 2.8 % (0.0-4.3) 08/24/18 05:43 Baso % (Auto) 0.8 % (0.0-1.8) 08/24/18 05:43 Lymph # 2.5 K/mm3 (1.2-5.4) 08/24/18 05:43 [place] # 0.5 K/mm3 (0.0-0.8) 08/24/18 05:43 Eos # 0.2 K/mm3 (0.0-0.4) 08/24/18 05:43 Baso # 0.1 K/mm3 (0.0-0.1) 08/24/18 05:43 Seg Neutrophils % 62.6 % (40.0-70.0) 08/24/18 05:43 Seg Neutrophils # 5.5 K/mm3 (1.8-7.7) 08/24/18 05:43 D-Dimer 728.45 ng/mlDDU (0-234) H 08/21/18 15:03 VBG pH 7.402 (7.320-7.420) 08/21/18 15:03 Sodium 140 mmol/L (137-145) 08/24/18 05:43 Potassium 3.5 mmol/L (3.6-5.0) L 08/24/18 05:43 Chloride 101.7 mmol/L (98-107) 08/24/18 05:43 Carbon Dioxide 23 mmol/L (22-30) 08/24/18 05:43 Anion Gap 19 mmol/L 08/24/18 05:43 BUN 6 mg/dL (7-17) L 08/24/18 05:43 Creatinine 0.4 mg/dL (0.7-1.2) L 08/24/18 05:43 Estimated GFR > 60 ml/min 08/24/18 05:43 BUN/Creatinine Ratio 15 % 08/24/18 05:43 Glucose 238 mg/dL (65-100) H 08/24/18 05:43 POC Glucose 199 (70-105) H 08/25/18 08:35 Hemoglobin A1c 14.0 % (4-6) H 08/22/18 00:33 Lactic Acid 1.70 mmol/L (0.7-2.0) 08/21/18 15:03 Calcium 8.1 mg/dL (8.4-10.2) L 08/24/18 05:43 Phosphorus 3.00 mg/dL (2.5-4.5) 08/24/18 05:43 Magnesium 1.60 mg/dL (1.7-2.3) L 08/24/18 05:43 Total Bilirubin 0.50 mg/dL (0.1-1.2) 08/21/18 13:23 AST 5 units/L (5-40) 08/21/18 13:23 ALT < 5 units/L (7-56) L 08/21/18 13:23 Alkaline Phosphatase 97 units/L (35-129) 08/21/18 13:23 Total Protein 9.1 g/dL (6.3-8.2) H 08/21/18 13:23 Albumin 3.4 g/dL (3.9-5) L 08/21/18 13:23 Albumin/Globulin Ratio 0.6 % 08/21/18 13:23 Urine Color Yellow (Yellow) 08/21/18 22:30 Urine Turbidity Clear (Clear) 08/21/18 22:30 Urine pH 5.0 (5.0-7.0) 08/21/18 22:30 Ur Specific [place] 1.060 (1.003-1.030) H 08/21/18 22:30 Urine Protein <15 mg/dl mg/dL (Negative) 08/21/18 22:30 Urine Glucose (UA) 150 mg/dL (Negative) 08/21/18 22:30 Urine Ketones 80 mg/dL (Negative) 08/21/18 22:30 Urine Blood Neg (Negative) 08/21/18 22:30 Urine Nitrite Neg (Negative) 08/21/18 22:30 Ur Reducing Substances Not Reportable 08/21/18 22:30 Urine Bilirubin Neg (Negative) 08/21/18 22:30 Urine Ictotest Not Reportable 08/21/18 22:30 Urine Urobilinogen 4.0 mg/dL (<2.0) 08/21/18 22:30 Ur Leukocyte Esterase Tr (Negative) 08/21/18 22:30 Urine WBC (Auto) 7.0 /HPF (0.0-6.0) H 08/21/18 22:30 Urine RBC (Auto) 5.0 /HPF (0.0-6.0) 08/21/18 22:30 U Epithel Cells (Auto) 1.0 /HPF (0-13.0) 08/21/18 22:30 Urine Mucus Few /HPF 08/21/18 22:30 Urine HCG, Qual Negative (Negative) 08/21/18 22:30 Active Medications - Current Medications Current Medications: Generic Name Dose Route Start Last Admin Trade Name Freq PRN Reason Stop Dose Admin Acetaminophen 650 mg 08/21/18 22:52 Tylenol PO Q4H PRN Pain MILD(1-3)/Fever >100.5/SMITH Enoxaparin Sodium 40 mg 08/22/18 10:00 08/25/18 09:31 Lovenox SUB-Q 40 mg QDAY AMIRA Administration Sodium Chloride 1,000 mls @ 100 mls/hr 08/22/18 03:00 08/25/18 06:43 Nacl 0.9% 1000 Ml IV 100 mls/hr DIRECT AMIRA Administration Vancomycin HCl 1,500 mg/ 530 mls @ 333.333 mls/hr 08/25/18 06:00 08/25/18 06:39 Sodium Chloride IV 333.333 mls/hr Q12H AMIRA Administration Insulin Human Isoph/Insulin Regular 22 unit 08/23/18 08:00 08/25/18 09:29 Humulin 70/30 SUB-Q 22 unit BIDDIAB AMIRA Administration Insulin Human Regular 0 units 08/22/18 07:30 08/25/18 09:30 Humulin R SUB-Q 6 units ACHS AMIRA Administration Protocol Morphine Sulfate 2 mg 08/24/18 12:00 Morphine IV Q8H PRN Pain, Moderate (4-6) Ondansetron HCl 4 mg 08/21/18 22:52 Zofran IV Q8H PRN Nausea And Vomiting Oxycodone/Acetaminophen 1 tab 08/24/18 11:59 Percocet 5/325 PO Q4H PRN Pain, Moderate (4-6) Sodium Chloride 10 ml 08/22/18 10:00 08/25/18 09:32 Sodium Chloride Flush Syringe 10 Ml IV Not Given BID AMIRA Sodium Chloride 10 ml 08/21/18 22:52 08/22/18 17:27 Sodium Chloride Flush Syringe 10 Ml IV 10 ml PRN PRN Administration LINE FLUSH Nutrition/Malnutrition Assess - Dietary Evaluation Nutrition/Malnutrition Findings: Nutrition Notes Start: 08/23/18 14:59 Freq: Status: Active Protocol: Document 08/23/18 14:59 RM (Rec: 08/23/18 15:09 RM [id number]) Nutrition Notes Need for Assessment generated from: ceo & founder,MST Initial or Follow up Assessment Current Diagnosis Diabetes Other Pertinent Diagnosis R foot wound Current Diet Consistent CHO Labs/Tests A1c 14 Pertinent Medications Reviewed Height 5 ft 8 in Weight 105.3 kg [place] Body Weight (kg) 63.63 BMI 35.3 Subjective/Other Information Screened for malnutrition and new onset DM diet education. Recorded PO intake 100% X 3 meals. Burn Absent Trauma Absent #1 Nutrition Diagnosis Increased nutrient needs ( specify in comment below) Comments: arginine, glutamine Etiology wound healing As Evidenced by Signs and Symptoms R foot wound Is patient on ventilator? No Is Patient Ambulatory and/or Out of Bed Yes REE-([facility] Je[facility]-ambulatory/OOB) [ 9392.450 NUTR.MSJOOB] Kcal/Kg value to use for calculation 17 Approximate Energy Requirements Using 1790 kcal/Kg Calculation Used for Recommendations Kcal/kg Additional Notes Protein Needs: 101-126g (1.2-1 .5g/kg 84 kg adjBW) Fluid Needs: 1 ml/kcal Nutrition Intervention Change Diet Order: Continue current Add Supplement/Snack (indicate name/kcal Omer BID /protein ) Provides kCal: 190 Provides Protein (gm) 5 Goal #1 Continue to meet at least 75% of calorie and protein needs via PO intakes Anticipated Discharge Needs: Consistent CHO diet Follow-Up By: 08/25/18 Additional Comments Follow for intakes, Omer intake, DM diet education
--- NOTE | 2018-08-25 14:54 | Progress Note ---
Assessment and Plan 48 yo F s/p excisional debridement of right foot wounds, POD 2 1. DM 2. infected right foot wound MRI RLE - reactive edema of bone, no definite evidence of osteomyelitis. Plan: 1. continue with wound vac 2. offloading - discussed with patient 3. strict glucose control 4. continue abx 5. wound and blood cx - staph aureus, final pending. On contact precautions. ID consult noted 6. repeat blood cultures pending 7. prn pain control 8. outpatient follow up in wound care clinic 9. case management on [facility] pending Will follow up on Thursday during wound vac change Thank you, please call with questions. Subjective Date of service: 08/25/18 Narrative: Pt seen and examined. No complaints Objective Vital Signs - 12hr 08/25/18 04:46 Temperature 98.4 F Pulse Rate 72 Respiratory 18 Rate Blood Pressure 132/82 O2 Sat by Pulse 96 Oximetry - General physical appearance Narrative Exam: Gen: AAOx3. NAD CV: S1, S2+ Resp; even and unlabored Ext: RLE with wound vac in place. No leak, good seal. + motor and sensory of foot. Foot dressing c/d/i - Labs 08/24/18 05:43 08/24/18 05:43
[2018-08-26 00:29] LABS: Basophils # (Auto) 0.1 K/mm3 (0.0-0.1); Basophils % (Auto) 0.7 % (0.0-1.8); Eosinophils # (Auto) 0.2 K/mm3 (0.0-0.4); Eosinophils % (Auto) 3.1 % (0.0-4.3); Hematocrit 25.5 % (30.3-42.9); Hemoglobin 8.3 gm/dl (10.1-14.3); Lymphocytes # (Auto) 2.2 K/mm3 (1.2-5.4); Lymphocytes % (Auto) 28.7 % (13.4-35.0); Mean Corpuscular HGB Conc 33 % (30-34); Mean Corpuscular Volume 72 fl (79-97); Monocytes # (Auto) 0.5 K/mm3 (0.0-0.8); Monocytes % (Auto) 6.2 % (0.0-7.3); Platelet Count 307 K/mm3 (140-440); Red Blood Count 3.52 M/mm3 (3.65-5.03); Red Cell Distribution Width 16.4 % (13.2-15.2)
[2018-08-26] MEDS: VANCOMYCIN 1,500 MG in NACL 0.9% 500 ML 500 ML IV SCH (05:24)
[2018-08-26] MEDS: NACL 0.9% 1000 ML 1,000 ML IV SCH (05:31)
[2018-08-26] MEDS: HumuLIN R SUB-Q SCH ×4 (08:59→22:07)
[2018-08-26] MEDS: SODIUM CHLORIDE FLUSH SYRINGE 10 ML IV SCH ×2 (09:00→22:03)
[2018-08-26] MEDS: LOVENOX SUB-Q SCH (09:00)
--- NOTE | 2018-08-26 09:37 | Progress Note ---
Assessment and Plan Cultures 08/21/18 Blood: Staph aureus, 1 out of 4 bottles 08/21/18 Right foot: Staph aureus 08/21/18 Right foot: Staphylococcus species 08/24/18: Blood: no growth in 48 hours A/P: 48 year old female with no prior medical history who presents to the ED on 08/21/18 with complaints of a right great toe injury that developed into an infection. Patient states that a month ago she accidentally stepped on something when she was walking and notice an open area on her toe. Patient admits to keeping the area cleaned and dressed, however 3 days ago when she noticed redness and swelling and a large amount of purulent drainage with accompanying chills, no fever. Now admitted with : 1. Sepsis on admission; Resolved. Etiology Staph aureus bactermia. Source most likely right diabetic foot ulcer. No fever. U/A show was not consistent with a UTI. Currently being treated with vancomycin 2. Staph aureus Bacterremia: cultures grew 1 out of 4 bottles, source diabetic foot ulcer. TTE shows no valvular vegetation. 3. Infected Diabetic right foot ulcer: : Infected foot wound extending to subcutaneous tissue and tendon. Exisional debridement of right foot on 08/23/18. Post op wound measurements: 2 cm x 4 cm x 3 cm. Tunneling towards posteriorly on dorsal aspect of foot about [address] shows suspected cellulitis of right great toe and medial forefront. MRI RLE shows reactive edema of bone, no definite evidence of osteomyelitis. Wound culture grew Staph aureus. 4. Newly Diagnosed Type 2 Diabetes: A1C 14. recommend tight glycemic control. Plan: -Continue wound care -Continue Cefazolin 2gms IV every 8 hours -PiICC line ordered -Anticipate discharge on Cefazolin 2gms IV every 8 hours for 4 weeks ending 09-21-18 -Order placed with Case management and sent to [facility] for approval [facility] [employer] M: [phone] O:[phone] Subjective Date of service: 08/26/18 Interval history: Patient seen and examined. No SOB or rashes. No fevers. No generalized pain or right foot pain reported. Objective - Exam Narrative Exam: Constitutional: Alert, cooperative. No acute distress Head, Ears, Nose: Normocephalic, atraumatic. External ears, nose normal Eyes: Conjunctivae/corneas clear. No icterus. No ptosis. Neck: Supple, no meningeal signs Oral: dentition fair. No thrush Cardiovascular: S1, S2 normal. Respiratory: Good air entry, clear to auscultation bilaterally GI: Soft, non-tender; bowel sounds normal. No peritoneal signs Musculoskeletal: cellulitis of right great toe and medial forefront. s/p debridement, dressing dry and intact Skin: No rash or abscess. + right foot dressing and wound Vac Hem/Lymphatic: No palpable cervical or supraclavicular nodes. No lymphangitis Psych: Mood ok. Affect normal Neurological: Awake, alert, oriented. - Constitutional Vitals: Vital Signs Temp Pulse Resp BP Pulse Ox 97.7 F 75 20 148/84 98 08/26/18 06:03 08/26/18 06:03 08/26/18 06:54 08/26/18 06:03 08/26/18 06:03 Temperature -Last 24 Hours Temperature 97.7 F Temperature 98.5 F Temperature 98.2 F Temperature 98.3 F - Labs CBC & Chem 7: 08/26/18 00:18 08/24/18 05:43 Labs: Abnormal lab results 08/25/18 08/25/18 08/25/18 Range/Units 12:24 16:58 21:13 RBC (3.65-5.03) M/mm3 Hgb (10.1-14.3) gm/dl Hct (30.3-42.9) % MCV (79-97) fl MCH (28-32) pg RDW (13.2-15.2) % POC Glucose 216 H 261 H 281 H (70-105) 08/26/18 08/26/18 Range/Units 00:18 07:26 RBC 3.52 L (3.65-5.03) M/mm3 Hgb 8.3 L (10.1-14.3) gm/dl Hct 25.5 L (30.3-42.9) % MCV 72 L (79-97) fl MCH 24 L (28-32) pg RDW 16.4 H (13.2-15.2) % POC Glucose 159 H (70-105)
--- NOTE | 2018-08-26 11:11 | Progress Note ---
Assessment and Plan Assessment and plan: --Diabetic foot ulcer; IV antibiotics, wound care, elevate the limb CT right foot; cellulitis no evidence of osteomyelitis or abscess s/p excisional debridement of right infected foot wound Current Wound Care --Sepsis/staph aureus wound infection; contact isolation ID adjusted antibiotics cefazolin, constricting long-term antibiotics for 4 week, --Leukocytosis; secondary to sepsis /foot ulcer trending down --Uncontrolled diabetes mellitus/hyperglycemia Accu-Chek,SSC and ADA diet, 7030 Humulin, dose increased to 22 twice a day Hemoglobin A1c 14, diabetic education, nutrition counseling Possible home health nurse at discharge for disease management --Hyponatremia; significantly improved --Metabolic acidosis; secondary to hyperglycemia, vigorous IV hydration Resolved --Elevated d-dimer ; CTA chest negative, will check lower extremity venous Doppler Rule out DVT --Moderate malnutrition/hypoalbuminemia, nutrition supplements and supportive care --DVT prophylaxis; Lovenox Will monitor closely and adjust the management as needed Consultation and recommendations noted and appreciated Plan of care reviewed with the patient and her nurse History Interval history: Patient seen and examined medical records reviewed Patient was inspected and no new complaints Vital signs noted Hospitalist Physical - Constitutional Vitals: Temp Pulse Resp BP Pulse Ox 97.7 F 75 20 148/84 98 08/26/18 06:03 08/26/18 06:03 08/26/18 06:54 08/26/18 06:03 08/26/18 06:03 General appearance: Present: no acute distress, well-nourished, obese - EENT Eyes: Present: PERRL, EOM intact - Neck Neck: Present: supple, normal ROM - Respiratory Respiratory effort: normal Respiratory: bilateral: diminished, negative: rales, rhonchi, wheezing - Cardiovascular Rhythm: regular Heart Sounds: Present: S1 & S2 - Extremities Extremities: no ischemia, No edema, abnormal (dressing in place) - Abdominal General gastrointestinal: soft, non-tender, non-distended, normal bowel sounds - Integumentary Integumentary: Present: clear, warm - Psychiatric Psychiatric: appropriate mood/affect, cooperative - Neurologic Neurologic: CNII-XII intact, moves all extremities Results - Labs CBC & Chem 7: 08/26/18 00:18 08/24/18 05:43 Labs: Laboratory Last Values WBC 7.6 K/mm3 (4.5-11.0) 08/26/18 00:18 RBC 3.52 M/mm3 (3.65-5.03) L 08/26/18 00:18 Hgb 8.3 gm/dl (10.1-14.3) L 08/26/18 00:18 Hct 25.5 % (30.3-42.9) L 08/26/18 00:18 MCV 72 fl (79-97) L 08/26/18 00:18 MCH 24 pg (28-32) L 08/26/18 00:18 MCHC 33 % (30-34) 08/26/18 00:18 RDW 16.4 % (13.2-15.2) H 08/26/18 00:18 Plt Count 307 K/mm3 (140-440) 08/26/18 00:18 Lymph % (Auto) 28.7 % (13.4-35.0) 08/26/18 00:18 [place] % (Auto) 6.2 % (0.0-7.3) 08/26/18 00:18 Eos % (Auto) 3.1 % (0.0-4.3) 08/26/18 00:18 Baso % (Auto) 0.7 % (0.0-1.8) 08/26/18 00:18 Lymph # 2.2 K/mm3 (1.2-5.4) 08/26/18 00:18 [place] # 0.5 K/mm3 (0.0-0.8) 08/26/18 00:18 Eos # 0.2 K/mm3 (0.0-0.4) 08/26/18 00:18 Baso # 0.1 K/mm3 (0.0-0.1) 08/26/18 00:18 Seg Neutrophils % 61.3 % (40.0-70.0) 08/26/18 00:18 Seg Neutrophils # 4.7 K/mm3 (1.8-7.7) 08/26/18 00:18 D-Dimer 728.45 ng/mlDDU (0-234) H 08/21/18 15:03 VBG pH 7.402 (7.320-7.420) 08/21/18 15:03 Sodium 140 mmol/L (137-145) 08/24/18 05:43 Potassium 3.5 mmol/L (3.6-5.0) L 08/24/18 05:43 Chloride 101.7 mmol/L (98-107) 08/24/18 05:43 Carbon Dioxide 23 mmol/L (22-30) 08/24/18 05:43 Anion Gap 19 mmol/L 08/24/18 05:43 BUN 6 mg/dL (7-17) L 08/24/18 05:43 Creatinine 0.4 mg/dL (0.7-1.2) L 08/24/18 05:43 Estimated GFR > 60 ml/min 08/24/18 05:43 BUN/Creatinine Ratio 15 % 08/24/18 05:43 Glucose 238 mg/dL (65-100) H 08/24/18 05:43 POC Glucose 159 (70-105) H 08/26/18 07:26 Hemoglobin A1c 14.0 % (4-6) H 08/22/18 00:33 Lactic Acid 1.70 mmol/L (0.7-2.0) 08/21/18 15:03 Calcium 8.1 mg/dL (8.4-10.2) L 08/24/18 05:43 Phosphorus 3.00 mg/dL (2.5-4.5) 08/24/18 05:43 Magnesium 1.60 mg/dL (1.7-2.3) L 08/24/18 05:43 Total Bilirubin 0.50 mg/dL (0.1-1.2) 08/21/18 13:23 AST 5 units/L (5-40) 08/21/18 13:23 ALT < 5 units/L (7-56) L 08/21/18 13:23 Alkaline Phosphatase 97 units/L (35-129) 08/21/18 13:23 Total Protein 9.1 g/dL (6.3-8.2) H 08/21/18 13:23 Albumin 3.4 g/dL (3.9-5) L 08/21/18 13:23 Albumin/Globulin Ratio 0.6 % 08/21/18 13:23 Urine Color Yellow (Yellow) 08/21/18 22:30 Urine Turbidity Clear (Clear) 08/21/18 22:30 Urine pH 5.0 (5.0-7.0) 08/21/18 22:30 Ur Specific [place] 1.060 (1.003-1.030) H 08/21/18 22:30 Urine Protein <15 mg/dl mg/dL (Negative) 08/21/18 22:30 Urine Glucose (UA) 150 mg/dL (Negative) 08/21/18 22:30 Urine Ketones 80 mg/dL (Negative) 08/21/18 22:30 Urine Blood Neg (Negative) 08/21/18 22:30 Urine Nitrite Neg (Negative) 08/21/18 22:30 Ur Reducing Substances Not Reportable 08/21/18 22:30 Urine Bilirubin Neg (Negative) 08/21/18 22:30 Urine Ictotest Not Reportable 08/21/18 22:30 Urine Urobilinogen 4.0 mg/dL (<2.0) 08/21/18 22:30 Ur Leukocyte Esterase Tr (Negative) 08/21/18 22:30 Urine WBC (Auto) 7.0 /HPF (0.0-6.0) H 08/21/18 22:30 Urine RBC (Auto) 5.0 /HPF (0.0-6.0) 08/21/18 22:30 U Epithel Cells (Auto) 1.0 /HPF (0-13.0) 08/21/18 22:30 Urine Mucus Few /HPF 08/21/18 22:30 Urine HCG, Qual Negative (Negative) 08/21/18 22:30 Vancomycin Trough 12.4 ug/mL (5.0-20.0) 08/26/18 04:25 Active Medications - Current Medications Current Medications: Generic Name Dose Route Start Last Admin Trade Name Freq PRN Reason Stop Dose Admin Acetaminophen 650 mg 08/21/18 22:52 Tylenol PO Q4H PRN Pain MILD(1-3)/Fever >100.5/SMITH Enoxaparin Sodium 40 mg 08/22/18 10:00 08/26/18 09:00 Lovenox SUB-Q 40 mg QDAY AMIRA Administration Sodium Chloride 1,000 mls @ 100 mls/hr 08/22/18 03:00 08/26/18 05:31 Nacl 0.9% 1000 Ml IV 100 mls/hr DIRECT AMIRA Administration Cefazolin Sodium 2 gm/ Sodium 100 mls @ 200 mls/hr 08/26/18 12:30 Chloride IV Q8HR [facility] Protocol Insulin Human Isoph/Insulin Regular 22 unit 08/23/18 08:00 08/26/18 08:59 Humulin 70/30 SUB-Q 22 unit BIDDIAB AMIRA Administration Insulin Human Regular 0 units 08/22/18 07:30 08/26/18 08:59 Humulin R SUB-Q 3 units ACHS AMIRA Administration Protocol Morphine Sulfate 2 mg 08/24/18 12:00 Morphine IV Q8H PRN Pain, Moderate (4-6) Ondansetron HCl 4 mg 08/21/18 22:52 Zofran IV Q8H PRN Nausea And Vomiting Oxycodone/Acetaminophen 1 tab 08/24/18 11:59 08/26/18 05:54 Percocet 5/325 PO 1 tab Q4H PRN Administration Pain, Moderate (4-6) Sodium Chloride 10 ml 08/22/18 10:00 08/26/18 09:00 Sodium Chloride Flush Syringe 10 Ml IV 10 ml BID AMIRA Administration Sodium Chloride 10 ml 08/21/18 22:52 08/22/18 17:27 Sodium Chloride Flush Syringe 10 Ml IV 10 ml PRN PRN Administration LINE FLUSH Nutrition/Malnutrition Assess - Dietary Evaluation Nutrition/Malnutrition Findings: Nutrition Notes Start: 08/23/18 14 :59 Freq: Status: Active Protocol: Document 08/25/18 11:16 LM (Rec: 08/25/18 11:26 LM [id number]) Co-Sign 08/25/18 11:16 LP Nutrition Notes Initial or Follow up Reassessment Current Diagnosis Diabetes Other Pertinent Diagnosis R foot wound Current Diet Consistent CHO Labs/Tests A1c 14 Pertinent Medications Humulin Height 5 ft 8 in Weight 106 kg [place] Body Weight (kg) 63.63 BMI 35.5 Subjective/Other Information Pt stated she has good appetite and noticed pt ate 100% of breakfast this morning . Pt drank Omer. Gave DM education. Percent of energy/protein needs met: 100%/88% Burn Absent Trauma Absent #2 Nutrition Diagnosis Food and nutrition-related knowledge deficit Etiology DM As Evidenced by Signs and Symptoms Pt newly diagnosed with DM, A1C of 14 #1 Nutrition Diagnosis Increased nutrient needs ( specify in comment below) Diagnosis Progress(for reassessment Continues documentation) Is patient on ventilator? No Is Patient Ambulatory and/or Out of Bed Yes REE-([facility]-ambulatory/OOB) [ 2266.550 NUTR.MSJOOB] Kcal/Kg value to use for calculation 17 Approximate Energy Requirements Using 1802 kcal/Kg Calculation Used for Recommendations Kcal/kg Additional Notes Protein Needs: 102-128g (1.2-1 .5g/kg 85 kg adjBW) Fluid Needs: 1 ml/kcal Nutrition Intervention Change Diet Order: Continue current Add Supplement/Snack (indicate name/kcal Omer BID /protein ) Provides kCal: 190 Provides Protein (gm) 5 Teaching Recipient Patient Learning Readiness Good Teaching Methods Discussion,Handout Response to Teaching Verbalize understanding Education Handouts Provided CHO counting for people with DM Barriers to Learning Motivation RD phone number provided Yes Patient aware of follow up options Yes Goal #1 Continue to meet at least 75% of calorie and protein needs via PO intakes Anticipated Discharge Needs: Consistent CHO diet Follow-Up By: 09/01/18 Additional Comments F/U: PO/ONS intakes
[2018-08-26] MEDS: ceFAZolin 2 GM in NACL 0.9% 100 ML IV SCH ×2 (13:22→22:02)
[2018-08-27] MEDS: ceFAZolin 2 GM in NACL 0.9% 100 ML IV SCH ×3 (06:22→22:00)
[2018-08-27 07:00] LABS: Basophils % (Auto) 0.5 % (0.0-1.8); Eosinophils # (Auto) 0.2 K/mm3 (0.0-0.4); Eosinophils % (Auto) 2.2 % (0.0-4.3); Hematocrit 26.9 % (30.3-42.9); Hemoglobin 8.6 gm/dl (10.1-14.3); Lymphocytes # (Auto) 1.9 K/mm3 (1.2-5.4); Lymphocytes % (Auto) 26.6 % (13.4-35.0); Mean Corpuscular HGB Conc 32 % (30-34); Mean Corpuscular Volume 72 fl (79-97); Monocytes # (Auto) 0.4 K/mm3 (0.0-0.8); Monocytes % (Auto) 5.3 % (0.0-7.3); Platelet Count 346 K/mm3 (140-440); Red Blood Count 3.71 M/mm3 (3.65-5.03); Red Cell Distribution Width 16.9 % (13.2-15.2)
[2018-08-27] MEDS: HumuLIN R SUB-Q SCH ×4 (07:53→22:17)
[2018-08-27 08:24] LABS: BUN/Creatinine Ratio 8; Blood Urea Nitrogen 4 mg/dL (7-17); Calcium 8.1 mg/dL (8.4-10.2); Hemolysis Index 10
[2018-08-27] MEDS: LOVENOX SUB-Q SCH (09:17)
[2018-08-27] MEDS: SODIUM CHLORIDE FLUSH SYRINGE 10 ML IV SCH ×2 (09:19→22:02)
[2018-08-27] MEDS ORDERED: K-DUR PO ONE (09:30)
--- NOTE | 2018-08-27 09:58 | Progress Note ---
Assessment and Plan Cultures 08/21/18 Blood: Staph aureus, 1 out of 4 bottles 08/21/18 Right foot: Staph aureus 08/21/18 Right foot: Staphylococcus species 08/24/18: Blood: no growth in 48 hours A/P: 48 year old female with no prior medical history who presents to the ED on 08/21/18 with complaints of a right great toe injury that developed into an infection. Patient states that a month ago she accidentally stepped on something when she was walking and notice an open area on her toe. Patient admits to keeping the area cleaned and dressed, however 3 days ago when she noticed redness and swelling and a large amount of purulent drainage with accompanying chills, no fever. Now admitted with : 1. Sepsis on admission; Resolved. Etiology Staph aureus bactermia. Source most likely right diabetic foot ulcer. No fever. U/A show was not consistent with a UTI. Currently being treated with vancomycin 2. Staph aureus Bacterremia: cultures grew 1 out of 4 bottles, source diabetic foot ulcer. Repeat cultures showed no growth in 48 hours. TTE shows no v alvular vegetation. 3. Infected Diabetic right foot ulcer: : Infected foot wound extending to subcutaneous tissue and tendon. Exisional debridement of right foot on 08/23/18. Post op wound measurements: 2 cm x 4 cm x 3 cm. Tunneling towards posteriorly on dorsal aspect of foot about [address] shows suspected cellulitis of right great toe and medial forefront. MRI RLE shows reactive edema of bone, no definite evidence of osteomyelitis. Wound culture grew Staph aureus. 4. Newly Diagnosed Type 2 Diabetes: A1C 14. recommend tight glycemic control. Plan: -Continue wound care -Continue Cefazolin 2gms IV every 8 hours -PiICC line ordered -Anticipate discharge on Cefazolin 2gms IV every 8 hours for 4 weeks ending 09-21-18 -Order placed with Case management and sent to [facility] for approval -Follow up in the office in 2 weeks -ID is signing off [facility] [employer] M: [id number] O:[phone] Subjective Date of service: 08/27/18 Interval history: Patient seen and examined. No SOB or rashes. No fevers. No generalized pain or right foot pain reported. Discussion regarding OPAT and importance of follow up in the office , Verbalized understanding. Objective - Exam Narrative Exam: Constitutional: Alert, cooperative. No acute distress Head, Ears, Nose: Normocephalic, atraumatic. External ears, nose normal Eyes: Conjunctivae/corneas clear. No icterus. No ptosis. Neck: Supple, no meningeal signs Oral: dentition fair. No thrush Cardiovascular: S1, S2 normal. Respiratory: Good air entry, clear to auscultation bilaterally GI: Soft, non-tender; bowel sounds normal. No peritoneal signs Musculoskeletal: cellulitis of right great toe and medial forefront. s/p debridement, dressing dry and intact Skin: No rash or abscess. + right foot dressing and wound Vac Hem/Lymphatic: No palpable cervical or supraclavicular nodes. No lymphangitis Psych: Mood ok. Affect normal Neurological: Awake, alert, oriented. - Constitutional Vitals: Vital Signs Temp Pulse Resp BP Pulse Ox 98.6 F 68 20 189/93 97 08/27/18 05:40 08/27/18 05:40 08/27/18 05:40 08/27/18 05:40 08/27/18 05:40 Temperature -Last 24 Hours Temperature 98.6 F Temperature 97.0 F Temperature 98.0 F Temperature 98.7 F - Labs CBC & Chem 7: 08/27/18 06:39 08/27/18 06:39 Labs: Abnormal lab results 08/26/18 08/26/18 08/26/18 Range/Units 11:18 16:40 22:04 Hgb (10.1-14.3) gm/dl Hct (30.3-42.9) % MCV (79-97) fl MCH (28-32) pg RDW (13.2-15.2) % Potassium (3.6-5.0) mmol/L BUN (7-17) mg/dL Creatinine (0.7-1.2) mg/dL Glucose (65-100) mg/dL POC Glucose 172 H 216 H 149 H (70-105) Calcium (8.4-10.2) mg/dL 08/27/18 08/27/18 08/27/18 Range/Units 06:39 06:39 07:50 Hgb 8.6 L (10.1-14.3) gm/dl Hct 26.9 L (30.3-42.9) % MCV 72 L (79-97) fl MCH 23 L (28-32) pg RDW 16.9 H (13.2-15.2) % Potassium 3.4 L (3.6-5.0) mmol/L BUN 4 L (7-17) mg/dL Creatinine 0.5 L (0.7-1.2) mg/dL Glucose 133 H (65-100) mg/dL POC Glucose 145 H (70-105) Calcium 8.1 L (8.4-10.2) mg/dL
--- NOTE | 2018-08-27 10:57 | Progress Note ---
Assessment and Plan 48 yo F s/p excisional debridement of right foot wounds, POD 4 1. DM 2. infected right foot wound MRI RLE - reactive edema of bone, no definite evidence of osteomyelitis. Blcx and wound cx - staph aureus Plan: 1. continue with wound vac - home vac at bedside 2. offloading - discussed with patient 3. strict glucose control 4. continue abx per ID, PICC line placed today 4. prn PO pain control 8. outpatient follow up in wound care clinic 9. case management on board - [employer] boubacar pending May be discharged home once IV abx set up. She was instructed to follow up in surgery clinic in 1 week and then will follow up in wound care clinic once claudia application is approved. Thank you, please call with questions. Subjective Date of service: 08/27/18 Narrative: Pt seen and examined. No acute complaints. Afebrile Objective Vital Signs - 12hr 08/26/18 08/27/18 23:24 05:40 Temperature 97.0 F L 98.6 F Pulse Rate 72 68 Respiratory 18 20 Rate Blood Pressure 172/83 189/93 O2 Sat by Pulse 96 97 Oximetry - General physical appearance Narrative Exam: Gen: AAOx3. NAD CV: s1, S2+ Resp; even and unlabored Ext: R foot wound vac removed and one piece of black sponge packing removed. Wound base is clean overall with some slough. Slough removed with 4x4 gauze. No purulent drainage. Mild odor. - Labs 08/27/18 06:39 08/27/18 06:39 Diabetes panel 08/27/18 Range/Units 06:39 Sodium 139 (137-145) mmol/L Potassium 3.4 L (3.6-5.0) mmol/L Chloride 103.0 (98-107) mmol/L Carbon Dioxide 25 (22-30) mmol/L BUN 4 L (7-17) mg/dL Creatinine 0.5 L (0.7-1.2) mg/dL Glucose 133 H (65-100) mg/dL Calcium 8.1 L (8.4-10.2) mg/dL Calcium panel 08/27/18 Range/Units 06:39 Calcium 8.1 L (8.4-10.2) mg/dL Pituitary panel 08/27/18 Range/Units 06:39 Sodium 139 (137-145) mmol/L Potassium 3.4 L (3.6-5.0) mmol/L Chloride 103.0 (98-107) mmol/L Carbon Dioxide 25 (22-30) mmol/L BUN 4 L (7-17) mg/dL Creatinine 0.5 L (0.7-1.2) mg/dL Glucose 133 H (65-100) mg/dL Calcium 8.1 L (8.4-10.2) mg/dL Adrenal panel 08/27/18 Range/Units 06:39 Sodium 139 (137-145) mmol/L Potassium 3.4 L (3.6-5.0) mmol/L Chloride 103.0 (98-107) mmol/L Carbon Dioxide 25 (22-30) mmol/L BUN 4 L (7-17) mg/dL Creatinine 0.5 L (0.7-1.2) mg/dL Glucose 133 H (65-100) mg/dL Calcium 8.1 L (8.4-10.2) mg/dL
--- NOTE | 2018-08-27 11:24 | XRay Report ---
AP CHEST: HISTORY: Right arm PICC placement. The right arm PICC terminates in the mid to lower SVC. AP view of the chest demonstrates a normal mediastinal and cardiac contour with clear lungs and normal bony and soft tissue structures. IMPRESSION: Unremarkable AP chest.
--- NOTE | 2018-08-27 17:52 | Progress Note ---
Assessment and Plan Assessment and plan: --Diabetic foot ulcer; IV antibiotics, wound care, elevate the limb CT right foot; cellulitis no evidence of osteomyelitis or abscess s/p excisional debridement of right infected foot wound Continue Wound Care, wound VAC --Sepsis/staph aureus wound infection; On cefazolin, ID advised long-term i/v antibiotics for 4 week,stop date 09/21/18 --Leukocytosis; secondary to sepsis /foot ulcer trending down --Uncontrolled diabetes mellitus/hyperglycemia Accu-Chek,SSC and ADA diet, 7030 Humulin, dose increased to 22 twice a day Hemoglobin A1c 14, diabetic education, nutrition counseling Possible home health nurse at discharge for disease management --Hyponatremia; significantly improved --Metabolic acidosis; secondary to hyperglycemia, vigorous IV hydration Resolved --Elevated d-dimer ; CTA chest negative for PE --Moderate malnutrition/hypoalbuminemia, nutrition supplements and supportive care --DVT prophylaxis; Lovenox -- DC planning per case management, processing long-term IV antibiotic therapy . Consultation and recommendations noted and appreciated Plan of care reviewed with the patient and her nurse History Interval history: Patient seen and evaluated this morning medical records reviewed Patient feels better no new complaints ID recommended long-term IV antibiotics Case management processing the paperwork Vital signs reviewed Hospitalist Physical - Constitutional Vitals: Temp Pulse Resp BP Pulse Ox 98.3 F 74 22 153/91 97 08/27/18 12:00 08/27/18 12:00 08/27/18 12:00 08/27/18 12:00 08/27/18 12:00 General appearance: Present: no acute distress, well-nourished, obese - EENT Eyes: Present: PERRL, EOM intact - Neck Neck: Present: supple, normal ROM - Respiratory Respiratory effort: normal Respiratory: bilateral: diminished, negative: rales, rhonchi, wheezing - Cardiovascular Rhythm: regular Heart Sounds: Present: S1 & S2 - Extremities Extremities: no ischemia, No edema - Abdominal General gastrointestinal: soft, non-tender, non-distended, normal bowel sounds - Integumentary Integumentary: Present: clear, warm - Psychiatric Psychiatric: appropriate mood/affect - Neurologic Neurologic: CNII-XII intact, moves all extremities Results - Labs CBC & Chem 7: 08/27/18 06:39 08/27/18 06:39 Labs: Laboratory Last Values WBC 7.2 K/mm3 (4.5-11.0) 08/27/18 06:39 RBC 3.71 M/mm3 (3.65-5.03) 08/27/18 06:39 Hgb 8.6 gm/dl (10.1-14.3) L 08/27/18 06:39 Hct 26.9 % (30.3-42.9) L 08/27/18 06:39 MCV 72 fl (79-97) L 08/27/18 06:39 MCH 23 pg (28-32) L 08/27/18 06:39 MCHC 32 % (30-34) 08/27/18 06:39 RDW 16.9 % (13.2-15.2) H 08/27/18 06:39 Plt Count 346 K/mm3 (140-440) 08/27/18 06:39 Lymph % (Auto) 26.6 % (13.4-35.0) 08/27/18 06:39 [place] % (Auto) 5.3 % (0.0-7.3) 08/27/18 06:39 Eos % (Auto) 2.2 % (0.0-4.3) 08/27/18 06:39 Baso % (Auto) 0.5 % (0.0-1.8) 08/27/18 06:39 Lymph # 1.9 K/mm3 (1.2-5.4) 08/27/18 06:39 [place] # 0.4 K/mm3 (0.0-0.8) 08/27/18 06:39 Eos # 0.2 K/mm3 (0.0-0.4) 08/27/18 06:39 Baso # 0.0 K/mm3 (0.0-0.1) 08/27/18 06:39 Seg Neutrophils % 65.4 % (40.0-70.0) 08/27/18 06:39 Seg Neutrophils # 4.7 K/mm3 (1.8-7.7) 08/27/18 06:39 D-Dimer 728.45 ng/mlDDU (0-234) H 08/21/18 15:03 VBG pH 7.402 (7.320-7.420) 08/21/18 15:03 Sodium 139 mmol/L (137-145) 08/27/18 06:39 Potassium 3.4 mmol/L (3.6-5.0) L 08/27/18 06:39 Chloride 103.0 mmol/L (98-107) 08/27/18 06:39 Carbon Dioxide 25 mmol/L (22-30) 08/27/18 06:39 Anion Gap 14 mmol/L 08/27/18 06:39 BUN 4 mg/dL (7-17) L 08/27/18 06:39 Creatinine 0.5 mg/dL (0.7-1.2) L 08/27/18 06:39 Estimated GFR > 60 ml/min 08/27/18 06:39 BUN/Creatinine Ratio 8 % 08/27/18 06:39 Glucose 133 mg/dL (65-100) H 08/27/18 06:39 POC Glucose 227 (70-105) H 08/27/18 16:42 Hemoglobin A1c 14.0 % (4-6) H 08/22/18 00:33 Lactic Acid 1.70 mmol/L (0.7-2.0) 08/21/18 15:03 Calcium 8.1 mg/dL (8.4-10.2) L 08/27/18 06:39 Phosphorus 3.00 mg/dL (2.5-4.5) 08/24/18 05:43 Magnesium 1.60 mg/dL (1.7-2.3) L 08/24/18 05:43 Total Bilirubin 0.50 mg/dL (0.1-1.2) 08/21/18 13:23 AST 5 units/L (5-40) 08/21/18 13:23 ALT < 5 units/L (7-56) L 08/21/18 13:23 Alkaline Phosphatase 97 units/L (35-129) 08/21/18 13:23 Total Protein 9.1 g/dL (6.3-8.2) H 08/21/18 13:23 Albumin 3.4 g/dL (3.9-5) L 08/21/18 13:23 Albumin/Globulin Ratio 0.6 % 08/21/18 13:23 Urine Color Yellow (Yellow) 08/21/18 22:30 Urine Turbidity Clear (Clear) 08/21/18 22:30 Urine pH 5.0 (5.0-7.0) 08/21/18 22:30 Ur Specific [place] 1.060 (1.003-1.030) H 08/21/18 22:30 Urine Protein <15 mg/dl mg/dL (Negative) 08/21/18 22:30 Urine Glucose (UA) 150 mg/dL (Negative) 08/21/18 22:30 Urine Ketones 80 mg/dL (Negative) 08/21/18 22:30 Urine Blood Neg (Negative) 08/21/18 22:30 Urine Nitrite Neg (Negative) 08/21/18 22:30 Ur Reducing Substances Not Reportable 08/21/18 22:30 Urine Bilirubin Neg (Negative) 08/21/18 22:30 Urine Ictotest Not Reportable 08/21/18 22:30 Urine Urobilinogen 4.0 mg/dL (<2.0) 08/21/18 22:30 Ur Leukocyte Esterase Tr (Negative) 08/21/18 22:30 Urine WBC (Auto) 7.0 /HPF (0.0-6.0) H 08/21/18 22:30 Urine RBC (Auto) 5.0 /HPF (0.0-6.0) 08/21/18 22:30 U Epithel Cells (Auto) 1.0 /HPF (0-13.0) 08/21/18 22:30 Urine Mucus Few /HPF 08/21/18 22:30 Urine HCG, Qual Negative (Negative) 08/21/18 22:30 Vancomycin Trough 12.4 ug/mL (5.0-20.0) 08/26/18 04:25 Active Medications - Current Medications Current Medications: Generic Name Dose Route Start Last Admin Trade Name Freq PRN Reason Stop Dose Admin Acetaminophen 650 mg 08/21/18 22:52 Tylenol PO Q4H PRN Pain MILD(1-3)/Fever >100.5/SMITH Enoxaparin Sodium 40 mg 08/22/18 10:00 08/27/18 09:17 Lovenox SUB-Q 40 mg QDAY AMIRA Administration Sodium Chloride 1,000 mls @ 100 mls/hr 08/22/18 03:00 08/26/18 05:31 Nacl 0.9% 1000 Ml IV 100 mls/hr DIRECT AMIRA Administration Cefazolin Sodium 2 gm/ Sodium 100 mls @ 200 mls/hr 08/26/18 12:30 08/27/18 13:02 Chloride IV 09/21/18 22:29 200 mls/hr Q8HR AMIRA Administration Protocol Insulin Human Isoph/Insulin Regular 22 unit 08/23/18 08:00 08/27/18 17:21 Humulin 70/30 SUB-Q 22 unit BIDDIAB AMIRA Administration Insulin Human Regular 0 units 08/22/18 07:30 08/27/18 17:21 Humulin R SUB-Q 4 units ACHS AMIRA Administration Protocol Morphine Sulfate 2 mg 08/24/18 12:00 Morphine IV Q8H PRN Pain, Moderate (4-6) Ondansetron HCl 4 mg 08/21/18 22:52 Zofran IV Q8H PRN Nausea And Vomiting Oxycodone/Acetaminophen 1 tab 08/24/18 11:59 08/26/18 05:54 Percocet 5/325 PO 1 tab Q4H PRN Administration Pain, Moderate (4-6) Sodium Chloride 10 ml 08/22/18 10:00 08/27/18 09:19 Sodium Chloride Flush Syringe 10 Ml IV 10 ml BID AMIRA Administration Sodium Chloride 10 ml 08/21/18 22:52 08/22/18 17:27 Sodium Chloride Flush Syringe 10 Ml IV 10 ml PRN PRN Administration LINE FLUSH Nutrition/Malnutrition Assess - Dietary Evaluation Nutrition/Malnutrition Findings: Nutrition Notes Start: 08/23/18 14:59 Freq: Status: Active Protocol: Document 08/25/18 11:16 LM (Rec: 08/25/18 11:26 LM [id number]) Co-Sign 08/25/18 11:16 LP Nutrition Notes Initial or Follow up Reassessment Current Diagnosis Diabetes Other Pertinent Diagnosis R foot wound Current Diet Consistent CHO Labs/Tests A1c 14 Pertinent Medications Humulin Height 5 ft 8 in Weight 106 kg [place] Body Weight (kg) 63.63 BMI 35.5 Subjective/Other Information Pt stated she has good appetite and noticed pt ate 100% of breakfast this morning . Pt drank Omer. Gave DM education. Percent of energy/protein needs met: 100%/88% Burn Absent Trauma Absent #2 Nutrition Diagnosis Food and nutrition-related knowledge deficit Etiology DM As Evidenced by Signs and Symptoms Pt newly diagnosed with DM, A1C of 14 #1 Nutrition Diagnosis Increased nutrient needs ( specify in comment below) Diagnosis Progress(for reassessment Continues documentation) Is patient on ventilator? No Is Patient Ambulatory and/or Out of Bed Yes REE-([place]-St. Jeor-ambulatory/OOB) [ 2266.550 NUTR.[id number]] Kcal/Kg value to use for calculation 17 Approximate Energy Requirements Using 1802 kcal/Kg Calculation Used for Recommendations Kcal/kg Additional Notes Protein Needs: 102-128g (1.2-1 .5g/kg 85 kg adjBW) Fluid Needs: 1 ml/kcal Nutrition Intervention Change Diet Order: Continue current Add Supplement/Snack (indicate name/kcal Omer BID /protein ) Provides kCal: 190 Provides Protein (gm) 5 Teaching Recipient Patient Learning Readiness Good Teaching Methods Discussion,Handout Response to Teaching Verbalize understanding Education Handouts Provided CHO counting for people with DM Barriers to Learning Motivation RD phone number provided Yes Patient aware of follow up options Yes Goal #1 Continue to meet at least 75% of calorie and protein needs via PO intakes Anticipated Discharge Needs: Consistent CHO diet Follow-Up By: 09/01/18 Additional Comments F/U: PO/ONS intakes
[2018-08-27] MEDS ORDERED: APRESOLINE IV PRN (18:14)
[2018-08-27] MEDS: APRESOLINE PO SCH (20:33)
[2018-08-28] MEDS: ceFAZolin 2 GM in NACL 0.9% 100 ML IV SCH ×3 (05:59→21:58)
[2018-08-28] MEDS: APRESOLINE PO SCH ×3 (05:59→21:59)
[2018-08-28 06:53] LABS: BUN/Creatinine Ratio 6; Blood Urea Nitrogen 3 mg/dL (7-17); Calcium 8.2 mg/dL (8.4-10.2); Hemolysis Index 2
[2018-08-28] MEDS: HumuLIN R SUB-Q SCH ×4 (07:30→22:00)
[2018-08-28] MEDS: LOVENOX SUB-Q SCH (09:08)
[2018-08-28] MEDS: SODIUM CHLORIDE FLUSH SYRINGE 10 ML IV PRN (09:10)
[2018-08-28] MEDS: SODIUM CHLORIDE FLUSH SYRINGE 10 ML IV SCH ×2 (10:00→21:59)
--- NOTE | 2018-08-28 12:09 | Progress Note ---
Assessment and Plan Assessment and plan: --Hyperkalemia; 40 mEq KCl by mouth --Diabetic foot ulcer; IV antibiotics, wound care, elevate the limb CT right foot; cellulitis no evidence of osteomyelitis or abscess s/p excisional debridement of right infected foot wound Continue Wound Care, wound VAC --Sepsis/staph aureus wound infection; On cefazolin, ID advised long-term i/v antibiotics for 4 week,stop date 09/21/18 --Leukocytosis; secondary to sepsis /foot ulcer trending down --Diabetes mellitus/hyperglycemia; well controlled Accu-Chek,SSC and ADA diet, 7030 Humulin, dose increased to 24 twice a day Hemoglobin A1c 14, diabetic education, nutrition counseling Possible home health nurse at discharge for disease management --Hyponatremia; resolved --Metabolic acidosis; resolved --Elevated d-dimer ; CTA chest negative for PE --Moderate malnutrition/hypoalbuminemia, nutrition supplements and supportive care --DVT prophylaxis; Lovenox -- DC planning per case management, processing long-term IV antibiotic therapy . Patient is medically stable for discharge on long-term IV antibiotics History Interval history: Patient seen and examined medical records reviewed Patient has no new complaints Stable for discharge on long-term IV antibiotics for 4 weeks put ID Patient has no resources, case management processing discharge planning The patient feels better no new complaints Vital signs noted Hospitalist Physical - Constitutional Vitals: Temp Pulse Resp BP Pulse Ox 98.1 F 81 16 168/86 97 08/28/18 11:31 08/28/18 11:31 08/28/18 11:31 08/28/18 11:31 08/28/18 11:31 General appearance: Present: no acute distress, well-nourished - EENT Eyes: Present: PERRL, EOM intact - Neck Neck: Present: supple, normal ROM - Respiratory Respiratory effort: normal Respiratory: bilateral: diminished, negative: rales, rhonchi, wheezing - Cardiovascular Rhythm: regular Heart Sounds: Present: S1 & S2 - Extremities Extremities: no ischemia, No edema, abnormal (foot dressing in place wound VAC draining) - Abdominal General gastrointestinal: soft, non-tender, non-distended, normal bowel sounds - Integumentary Integumentary: Present: clear, warm - Psychiatric Psychiatric: appropriate mood/affect, cooperative - Neurologic Neurologic: CNII-XII intact, moves all extremities Results - Labs CBC & Chem 7: 08/27/18 06:39 04 05:08 Labs: Laboratory Last Values WBC 7.2 K/mm3 (4.5-11.0) 08/27/18 06:39 RBC 3.71 M/mm3 (3.65-5.03) 08/27/18 06:39 Hgb 8.6 gm/dl (10.1-14.3) L 08/27/18 06:39 Hct 26.9 % (30.3-42.9) L 08/27/18 06:39 MCV 72 fl (79-97) L 08/27/18 06:39 MCH 23 pg (28-32) L 08/27/18 06:39 MCHC 32 % (30-34) 08/27/18 06:39 RDW 16.9 % (13.2-15.2) H 08/27/18 06:39 Plt Count 346 K/mm3 (140-440) 08/27/18 06:39 Lymph % (Auto) 26.6 % (13.4-35.0) 08/27/18 06:39 [place] % (Auto) 5.3 % (0.0-7.3) 08/27/18 06:39 Eos % (Auto) 2.2 % (0.0-4.3) 08/27/18 06:39 Baso % (Auto) 0.5 % (0.0-1.8) 08/27/18 06:39 Lymph # 1.9 K/mm3 (1.2-5.4) 08/27/18 06:39 [place] # 0.4 K/mm3 (0.0-0.8) 08/27/18 06:39 Eos # 0.2 K/mm3 (0.0-0.4) 08/27/18 06:39 Baso # 0.0 K/mm3 (0.0-0.1) 08/27/18 06:39 Seg Neutrophils % 65.4 % (40.0-70.0) 08/27/18 06:39 Seg Neutrophils # 4.7 K/mm3 (1.8-7.7) 08/27/18 06:39 D-Dimer 728.45 ng/mlDDU (0-234) H 08/21/18 15:03 VBG pH 7.402 (7.320-7.420) 08/21/18 15:03 Sodium 145 mmol/L (137-145) 08/28/18 05:08 Potassium 3.3 mmol/L (3.6-5.0) L 08/28/18 05:08 Chloride 105.3 mmol/L (98-107) 08/28/18 05:08 Carbon Dioxide 25 mmol/L (22-30) 08/28/18 05:08 Anion Gap 18 mmol/L 08/28/18 05:08 BUN 3 mg/dL (7-17) L 08/28/18 05:08 Creatinine 0.5 mg/dL (0.7-1.2) L 08/28/18 05:08 Estimated GFR > 60 ml/min 08/28/18 05:08 BUN/Creatinine Ratio 6 % 08/28/18 05:08 Glucose 122 mg/dL (65-100) H 08/28/18 05:08 POC Glucose 155 (70-105) H 08/28/18 11:56 Hemoglobin A1c 14.0 % (4-6) H 08/22/18 00:33 Lactic Acid 1.70 mmol/L (0.7-2.0) 08/21/18 15:03 Calcium 8.2 mg/dL (8.4-10.2) L 08/28/18 05:08 Phosphorus 3.00 mg/dL (2.5-4.5) 08/24/18 05:43 Magnesium 1.60 mg/dL (1.7-2.3) L 08/24/18 05:43 Total Bilirubin 0.50 mg/dL (0.1-1.2) 08/21/18 13:23 AST 5 units/L (5-40) 08/21/18 13:23 ALT < 5 units/L (7-56) L 08/21/18 13:23 Alkaline Phosphatase 97 units/L (35-129) 08/21/18 13:23 Total Protein 9.1 g/dL (6.3-8.2) H 08/21/18 13:23 Albumin 3.4 g/dL (3.9-5) L 08/21/18 13:23 Albumin/Globulin Ratio 0.6 % 08/21/18 13:23 Urine Color Yellow (Yellow) 08/21/18 22:30 Urine Turbidity Clear (Clear) 08/21/18 22:30 Urine pH 5.0 (5.0-7.0) 08/21/18 22:30 Ur Specific [place] 1.060 (1.003-1.030) H 08/21/18 22:30 Urine Protein <15 mg/dl mg/dL (Negative) 08/21/18 22:30 Urine Glucose (UA) 150 mg/dL (Negative) 08/21/18 22:30 Urine Ketones 80 mg/dL (Negative) 08/21/18 22:30 Urine Blood Neg (Negative) 08/21/18 22:30 Urine Nitrite Neg (Negative) 08/21/18 22:30 Ur Reducing Substances Not Reportable 08/21/18 22:30 Urine Bilirubin Neg (Negative) 08/21/18 22:30 Urine Ictotest Not Reportable 08/21/18 22:30 Urine Urobilinogen 4.0 mg/dL (<2.0) 08/21/18 22:30 Ur Leukocyte Esterase Tr (Negative) 08/21/18 22:30 Urine WBC (Auto) 7.0 /HPF (0.0-6.0) H 08/21/18 22:30 Urine RBC (Auto) 5.0 /HPF (0.0-6.0) 08/21/18 22:30 U Epithel Cells (Auto) 1.0 /HPF (0-13.0) 08/21/18 22:30 Urine Mucus Few /HPF 08/21/18 22:30 Urine HCG, Qual Negative (Negative) 08/21/18 22:30 Vancomycin Trough 12.4 ug/mL (5.0-20.0) 08/26/18 04:25 Active Medications - Current Medications Current Medications: Generic Name Dose Route Start Last Admin Trade Name Freq PRN Reason Stop Dose Admin Acetaminophen 650 mg 08/21/18 22:52 Tylenol PO Q4H PRN Pain MILD(1-3)/Fever >100.5/SMITH Enoxaparin Sodium 40 mg 08/22/18 10:00 08/28/18 09:08 Lovenox SUB-Q 40 mg QDAY AMIRA Administration Hydralazine HCl 10 mg 08/27/18 20:00 08/28/18 05:59 Apresoline PO 10 mg Q8HR AMIRA Administration Hydralazine HCl 10 mg 08/27/18 18:14 Apresoline IV Q4HR PRN Hypertension Sodium Chloride 1,000 mls @ 100 mls/hr 08/22/18 03:00 08/26/18 05:31 Nacl 0.9% 1000 Ml IV 100 mls/hr DIRECT AMIRA Administration Cefazolin Sodium 2 gm/ Sodium 100 mls @ 200 mls/hr 08/26/18 12:30 08/28/18 05:59 Chloride IV 09/21/18 22:29 200 mls/hr Q8HR AMIRA Administration Protocol Insulin Human Isoph/Insulin Regular 24 unit 08/28/18 08:00 08/28/18 07:30 Humulin 70/30 SUB-Q 24 unit BIDDIAB AMIRA Administration Insulin Human Regular 0 units 08/22/18 07:30 08/28/18 07:30 Humulin R SUB-Q Not Given ACHS AMIRA Protocol Morphine Sulfate 2 mg 08/24/18 12:00 Morphine IV Q8H PRN Pain, Moderate (4-6) Ondansetron HCl 4 mg 08/21/18 22:52 Zofran IV Q8H PRN Nausea And Vomiting Oxycodone/Acetaminophen 1 tab 08/24/18 11:59 08/26/18 05:54 Percocet 5/325 PO 1 tab Q4H PRN Administration Pain, Moderate (4-6) Potassium Chloride 40 meq 08/28/18 12:04 K-Dur PO 08/28/18 12:05 ONCE ONE Sodium Chloride 10 ml 08/22/18 10:00 08/27/18 22:02 Sodium Chloride Flush Syringe 10 Ml IV 10 ml BID AMIRA Administration Sodium Chloride 10 ml 08/21/18 22:52 08/28/18 09:10 Sodium Chloride Flush Syringe 10 Ml IV 10 ml PRN PRN Administration LINE FLUSH Nutrition/Malnutrition Assess - Dietary Evaluation Nutrition/Malnutrition Findings: Nutrition Notes Start: 08/23/18 14:59 Freq: Status: Active Protocol: Document 08/25/18 11:16 LM (Rec: 08/25/18 11:26 LM [id number]) Co-Sign 08/25/18 11:16 LP Nutrition Notes Initial or Follow up Reassessment Current Diagnosis Diabetes Other Pertinent Diagnosis R foot wound Current Diet Consistent CHO Labs/Tests A1c 14 Pertinent Medications Humulin Height 5 ft 8 in Weight 106 kg [place] Body Weight (kg) 63.63 BMI 35.5 Subjective/Other Information Pt stated she has good appetite and noticed pt ate 100% of breakfast this morning . Pt drank Omer. Gave DM education. Percent of energy/protein needs met: 100%/88% Burn Absent Trauma Absent #2 Nutrition Diagnosis Food and nutrition-related knowledge deficit Etiology DM As Evidenced by Signs and Symptoms Pt newly diagnosed with DM, A1C of 14 #1 Nutrition Diagnosis Increased nutrient needs ( specify in comment below) Diagnosis Progress(for reassessment Continues documentation) Is patient on ventilator? No Is Patient Ambulatory and/or Out of Bed Yes REE-([place]-St. Jeor-ambulatory/OOB) [ 2266.550 NUTR.MSJOOB] Kcal/Kg value to use for calculation 17 Approximate Energy Requirements Using 1802 kcal/Kg Calculation Used for Recommendations Kcal/kg Additional Notes Protein Needs: 102-128g (1.2-1 .5g/kg 85 kg adjBW) Fluid Needs: 1 ml/kcal Nutrition Intervention Change Diet Order: Continue current Add Supplement/Snack (indicate name/kcal [place] BID /protein ) Provides kCal: 190 Provides Protein (gm) 5 Teaching Recipient Patient Learning Readiness Good Teaching Methods Discussion,Handout Response to Teaching Verbalize understanding Education Handouts Provided CHO counting for people with DM Barriers to Learning Motivation RD phone number provided Yes Patient aware of follow up options Yes Goal #1 Continue to meet at least 75% of calorie and protein needs via PO intakes Anticipated Discharge Needs: Consistent CHO diet Follow-Up By: 09/01/18 Additional Comments F/U: PO/ONS intakes
[2018-08-28] MEDS ORDERED: K-DUR PO ONE (13:00)
[2018-08-29] MEDS: ceFAZolin 2 GM in NACL 0.9% 100 ML IV SCH ×3 (05:59→22:24)
[2018-08-29] MEDS: APRESOLINE PO SCH ×3 (05:59→22:24)
[2018-08-29] MEDS: HumuLIN R SUB-Q SCH ×4 (07:33→22:23)
[2018-08-29] MEDS: SODIUM CHLORIDE FLUSH SYRINGE 10 ML IV SCH ×2 (09:54→22:24)
[2018-08-29] MEDS: LOVENOX SUB-Q SCH (09:55)
--- NOTE | 2018-08-29 13:13 | Progress Note ---
Assessment and Plan Assessment and plan: --Hyperkalemia; 40 mEq KCl by mouth --Diabetic foot ulcer; IV antibiotics, wound care, elevate the limb CT right foot; cellulitis no evidence of osteomyelitis or abscess s/p excisional debridement of right infected foot wound Continue Wound Care, wound VAC --Sepsis/staph aureus wound infection; On cefazolin, ID advised long-term i/v antibiotics for 4 week,stop date 09/21/18 --Leukocytosis; secondary to sepsis /foot ulcer trending down --Diabetes mellitus/hyperglycemia; well controlled Accu-Chek,SSC and ADA diet, 7030 Humulin, dose increased to 24 twice a day Hemoglobin A1c 14, diabetic education, nutrition counseling Possible home health nurse at discharge for disease management --Hyponatremia; resolved --Metabolic acidosis; resolved --Elevated d-dimer ; CTA chest negative for PE --Moderate malnutrition/hypoalbuminemia, nutrition supplements and supportive care --DVT prophylaxis; Lovenox -- DC planning per case management, processing long-term IV antibiotic therapy . Patient is medically stable for discharge on long-term IV antibiotics History Interval history: Patient seen and examined medical records reviewed No new events reported by the nursing Patient has no new complaints Vital signs reviewed Awaiting long-term IV antibiotic set up a discharge Case management working Hospitalist Physical - Constitutional Vitals: Temp Pulse Resp BP Pulse Ox 98.1 F 79 20 166/98 94 08/29/18 12:27 08/29/18 12:27 08/29/18 12:27 08/29/18 12:27 08/29/18 12:27 General appearance: Present: no acute distress, well-nourished - EENT Eyes: Present: PERRL, EOM intact - Neck Neck: Present: supple, normal ROM - Respiratory Respiratory effort: normal Respiratory: bilateral: diminished, negative: rales, rhonchi, wheezing - Cardiovascular Rhythm: regular Heart Sounds: Present: S1 & S2 - Extremities Extremities: no ischemia, No edema, abnormal (Fruchter dressing and wound VAC in place) - Abdominal General gastrointestinal: soft, non-tender, non-distended, normal bowel sounds - Integumentary Integumentary: Present: clear, warm - Psychiatric Psychiatric: appropriate mood/affect, cooperative - Neurologic Neurologic: CNII-XII intact, moves all extremities Results - Labs CBC & Chem 7: 08/27/18 06:39 08/29/18 06:10 Labs: Laboratory Last Values WBC 7.2 K/mm3 (4.5-11.0) 08/27/18 06:39 RBC 3.71 M/mm3 (3.65-5.03) 08/27/18 06:39 Hgb 8.6 gm/dl (10.1-14.3) L 08/27/18 06:39 Hct 26.9 % (30.3-42.9) L 08/27/18 06:39 MCV 72 fl (79-97) L 08/27/18 06:39 MCH 23 pg (28-32) L 08/27/18 06:39 MCHC 32 % (30-34) 08/27/18 06:39 RDW 16.9 % (13.2-15.2) H 08/27/18 06:39 Plt Count 346 K/mm3 (140-440) 08/27/18 06:39 Lymph % (Auto) 26.6 % (13.4-35.0) 08/27/18 06:39 [place] % (Auto) 5.3 % (0.0-7.3) 08/27/18 06:39 Eos % (Auto) 2.2 % (0.0-4.3) 08/27/18 06:39 Baso % (Auto) 0.5 % (0.0-1.8) 08/27/18 06:39 Lymph # 1.9 K/mm3 (1.2-5.4) 08/27/18 06:39 [place] # 0.4 K/mm3 (0.0-0.8) 08/27/18 06:39 Eos # 0.2 K/mm3 (0.0-0.4) 08/27/18 06:39 Baso # 0.0 K/mm3 (0.0-0.1) 08/27/18 06:39 Seg Neutrophils % 65.4 % (40.0-70.0) 08/27/18 06:39 Seg Neutrophils # 4.7 K/mm3 (1.8-7.7) 08/27/18 06:39 D-Dimer 728.45 ng/mlDDU (0-234) H 08/21/18 15:03 VBG pH 7.402 (7.320-7.420) 08/21/18 15:03 Sodium 145 mmol/L (137-145) 08/28/18 05:08 Potassium 3.5 mmol/L (3.6-5.0) L 08/29/18 06:10 Chloride 105.3 mmol/L (98-107) 08/28/18 05:08 Carbon Dioxide 25 mmol/L (22-30) 08/28/18 05:08 Anion Gap 18 mmol/L 08/28/18 05:08 BUN 3 mg/dL (7-17) L 08/28/18 05:08 Creatinine 0.5 mg/dL (0.7-1.2) L 08/28/18 05:08 Estimated GFR > 60 ml/min 08/28/18 05:08 BUN/Creatinine Ratio 6 % 08/28/18 05:08 Glucose 122 mg/dL (65-100) H 08/28/18 05:08 POC Glucose 161 (70-105) H 08/29/18 11:33 Hemoglobin A1c 14.0 % (4-6) H 08/22/18 00:33 Lactic Acid 1.70 mmol/L (0.7-2.0) 08/21/18 15:03 Calcium 8.2 mg/dL (8.4-10.2) L 08/28/18 05:08 Phosphorus 3.00 mg/dL (2.5-4.5) 08/24/18 05:43 Magnesium 1.70 mg/dL (1.7-2.3) 08/29/18 06:10 Total Bilirubin 0.50 mg/dL (0.1-1.2) 08/21/18 13:23 AST 5 units/L (5-40) 08/21/18 13:23 ALT < 5 units/L (7-56) L 08/21/18 13:23 Alkaline Phosphatase 97 units/L (35-129) 08/21/18 13:23 Total Protein 9.1 g/dL (6.3-8.2) H 08/21/18 13:23 Albumin 3.4 g/dL (3.9-5) L 08/21/18 13:23 Albumin/Globulin Ratio 0.6 % 08/21/18 13:23 Urine Color Yellow (Yellow) 08/21/18 22:30 Urine Turbidity Clear (Clear) 08/21/18 22:30 Urine pH 5.0 (5.0-7.0) 08/21/18 22:30 Ur Specific [place] 1.060 (1.003-1.030) H 08/21/18 22:30 Urine Protein <15 mg/dl mg/dL (Negative) 08/21/18 22:30 Urine Glucose (UA) 150 mg/dL (Negative) 08/21/18 22:30 Urine Ketones 80 mg/dL (Negative) 08/21/18 22:30 Urine Blood Neg (Negative) 08/21/18 22:30 Urine Nitrite Neg (Negative) 08/21/18 22:30 Ur Reducing Substances Not Reportable 08/21/18 22:30 Urine Bilirubin Neg (Negative) 08/21/18 22:30 Urine Ictotest Not Reportable 08/21/18 22:30 Urine Urobilinogen 4.0 mg/dL (<2.0) 08/21/18 22:30 Ur Leukocyte Esterase Tr (Negative) 08/21/18 22:30 Urine WBC (Auto) 7.0 /HPF (0.0-6.0) H 08/21/18 22:30 Urine RBC (Auto) 5.0 /HPF (0.0-6.0) 08/21/18 22:30 U Epithel Cells (Auto) 1.0 /HPF (0-13.0) 08/21/18 22:30 Urine Mucus Few /HPF 08/21/18 22:30 Urine HCG, Qual Negative (Negative) 08/21/18 22:30 Vancomycin Trough 12.4 ug/mL (5.0-20.0) 08/26/18 04:25 Active Medications - Current Medications Current Medications: Generic Name Dose Route Start Last Admin Trade Name Freq PRN Reason Stop Dose Admin Acetaminophen 650 mg 08/21/18 22:52 Tylenol PO Q4H PRN Pain MILD(1-3)/Fever >100.5/SMITH Enoxaparin Sodium 40 mg 08/22/18 10:00 08/29/18 09:55 Lovenox SUB-Q 40 mg QDAY AMIRA Administration Hydralazine HCl 10 mg 08/27/18 20:00 08/29/18 05:59 Apresoline PO 10 mg Q8HR AMIRA Administration Hydralazine HCl 10 mg 08/27/18 18:14 Apresoline IV Q4HR PRN Hypertension Cefazolin Sodium 2 gm/ Sodium 100 mls @ 200 mls/hr 08/26/18 12:30 08/29/18 05:59 Chloride IV 09/21/18 22:29 200 mls/hr Q8HR AMIRA Administration Protocol Insulin Human Isoph/Insulin Regular 24 unit 08/28/18 08:00 08/29/18 08:47 Humulin 70/30 SUB-Q 24 unit BIDDIAB AMIRA Administration Insulin Human Regular 0 units 08/22/18 07:30 08/29/18 11:30 Humulin R SUB-Q 3 units ACHS AMIRA Administration Protocol Morphine Sulfate 2 mg 08/24/18 12:00 Morphine IV Q8H PRN Pain, Moderate (4-6) Ondansetron HCl 4 mg 08/21/18 22:52 Zofran IV Q8H PRN Nausea And Vomiting Oxycodone/Acetaminophen 1 tab 08/24/18 11:59 08/26/18 05:54 Percocet 5/325 PO 1 tab Q4H PRN Administration Pain, Moderate (4-6) Sodium Chloride 10 ml 08/22/18 10:00 08/29/18 09:54 Sodium Chloride Flush Syringe 10 Ml IV 10 ml BID AMIRA Administration Sodium Chloride 10 ml 08/21/18 22:52 08/28/18 09:10 Sodium Chloride Flush Syringe 10 Ml IV 10 ml PRN PRN Administration LINE FLUSH Nutrition/Malnutrition Assess - Dietary Evaluation Nutrition/Malnutrition Findings: Nutrition Notes Start: 08/23/18 14:59 Freq: Status: Active Protocol: Document 08/25/18 11:16 LM (Rec: 08/25/18 11:26 LM [id number]) Co-Sign 08/25/18 11:16 LP Nutrition Notes Initial or Follow up Reassessment Current Diagnosis Diabetes Other Pertinent Diagnosis R foot wound Current Diet Consistent CHO Labs/Tests A1c 14 Pertinent Medications Humulin Height 5 ft 8 in Weight 106 kg [place] Body Weight (kg) 63.63 BMI 35.5 Subjective/Other Information Pt stated she has good appetite and noticed pt ate 100% of breakfast this morning . Pt drank Omer. Gave DM education. Percent of energy/protein needs met: 100%/88% Burn Absent Trauma Absent #2 Nutrition Diagnosis Food and nutrition-related knowledge deficit Etiology DM As Evidenced by Signs and Symptoms Pt newly diagnosed with DM, A1C of 14 #1 Nutrition Diagnosis Increased nutrient needs ( specify in comment below) Diagnosis Progress(for reassessment Continues documentation) Is patient on ventilator? No Is Patient Ambulatory and/or Out of Bed Yes REE-([place]-St. Jeor-ambulatory/OOB) [ 2266.550 NUTR.MSJOOB] Kcal/Kg value to use for calculation 17 Approximate Energy Requirements Using 1802 kcal/Kg Calculation Used for Recommendations Kcal/kg Additional Notes Protein Needs: 102-128g (1.2-1 .5g/kg 85 kg adjBW) Fluid Needs: 1 ml/kcal Nutrition Intervention Change Diet Order: Continue current Add Supplement/Snack (indicate name/kcal [place] BID /protein ) Provides kCal: 190 Provides Protein (gm) 5 Teaching Recipient Patient Learning Readiness Good Teaching Methods Discussion,Handout Response to Teaching Verbalize understanding Education Handouts Provided CHO counting for people with DM Barriers to Learning Motivation RD phone number provided Yes Patient aware of follow up options Yes Goal #1 Continue to meet at least 75% of calorie and protein needs via PO intakes Anticipated Discharge Needs: Consistent CHO diet Follow-Up By: 09/01/18 Additional Comments F/U: PO/ONS intakes
[2018-08-30] MEDS: APRESOLINE PO SCH ×2 (05:50→13:23)
[2018-08-30] MEDS: ceFAZolin 2 GM in NACL 0.9% 100 ML IV SCH ×2 (05:50→14:39)
[2018-08-30] MEDS: HumuLIN R SUB-Q SCH ×3 (08:05→18:12)
[2018-08-30] MEDS: SODIUM CHLORIDE FLUSH SYRINGE 10 ML IV SCH (09:08)
[2018-08-30] MEDS ORDERED: K-DUR PO ONE (11:00)
[2018-08-30] MEDS: LOVENOX SUB-Q SCH (11:31)
--- NOTE | 2018-08-30 15:17 | Discharge Summary ---
Providers - Providers Date of Admission: 08/21/18 22:39 Date of discharge: 08/30/18 Attending physician: ARVIN GARCIA 08/21/18 23:50 Consult to Wound/ET Nurse [CONS] Routine Reason For Exam: wound eval 08/22/18 00:59 Consult to Physician [CONS] Routine Comment: Consulting Provider: RONNIE HI Physician Instructions: Reason For Exam: right great toe infection 08/24/18 08:15 Consult to Physician [CONS] Routine Comment: Consulting Provider: SAMUEL LONDON Physician Instructions: Reason For Exam: bacteremia, right diabetic foot infection 08/26/18 15:27 Consult to PICC Line RN [CONS] Urgent Reason For Exam: PICC line placement Type Line:: PICC 08/26/18 15:54 Consult to Case Management [CONS] Urgent Services Needed at Discharge: Home Health Services Notified:: yes Additional Physician Instructions: [facility] M [phone] O [phone] F [phone] OUTPATIENT PARENTERAL ANTIBIOTIC THERAPY ORDERS Diagnoses: Staph Aureaus Bacteremia Antimicrobial administration: Anticipate discharge on Cefazolin 2gms IV every 8 hours for 4 weeks ending 09-21-18. Remove PICC line after last dose unless otherwise instructed. Lines: PICC Lab monitoring: CBC, BUN, Creatinine, ALT, AST, CRP, once a week preferly on Thursday morning. Please fax results to [phone] and call [phone] for critical lab results. Sharon Alberts NP/Dr. [place] Date: 08/26/18 Primary care physician: [employer] Hospitalization Reason for admission: Rt great toe diabetic foot infection Condition: Fair Pertinent studies: CT foot,no osteomyelitis MRI foot ,no osteomyelitis Xray foot Procedures: Rt foot surgical debrediment Hospital course: 48-year-old female patient with no prior medical history was admitted through ER with complaints of right great toe injury and infection and purulent discharge and from the toe. Patient was treated with emperic antibiotic,evaluated by surgery and underwent surgical debrediment .Patient's symptoms improved,Today pt is comfortable, no new complaints,vital signs stable,Physical exam is unremarkable. Discharge Diagnosis: --Hyperkalemia; 40 mEq KCl by mouth --Diabetic foot ulcer; IV antibiotics, wound care, elevate the limb CT right foot; cellulitis no evidence of osteomyelitis or abscess s/p excisional debridement of right infected foot wound Continue Wound Care, wound VAC --Sepsis/staph aureus wound infection; On cefazolin, ID advised long-term i/v antibiotics for 4 week,stop date 09/21/18 --Leukocytosis; secondary to sepsis /foot ulcer trending down --Diabetes mellitus/hyperglycemia; well controlled Accu-Chek,SSC and ADA diet, 7030 Humulin, dose increased to 24 twice a day Hemoglobin A1c 14, diabetic education, nutrition counseling Possible home health nurse at discharge for disease management --Hyponatremia; resolved --Metabolic acidosis; resolved --Elevated d-dimer ; CTA chest negative for PE --Moderate malnutrition/hypoalbuminemia, nutrition supplements and supportive care Disposition: DC/[place]-06 HOME UNDER HOME [facility] Time spent for discharge: 34 min Core Measure Documentation - Palliative Care Palliative Care/ Comfort Measures: Not Applicable - Core Measures Any of the following diagnoses?: none Exam - Constitutional Vitals: Temp Pulse Resp BP Pulse Ox 98.1 F 94 H 18 169/68 97 08/30/18 12:07 08/30/18 14:45 08/30/18 12:07 08/30/18 14:45 08/30/18 12:07 General appearance: Present: no acute distress, well-nourished - EENT Eyes: Present: PERRL, EOM intact - Neck Neck: Present: supple, normal ROM - Respiratory Respiratory effort: normal Respiratory: bilateral: diminished, negative: rales, rhonchi, wheezing - Cardiovascular Rhythm: regular Heart Sounds: Present: S1 & S2 - Extremities Extremities: no ischemia, No edema, abnormal (dressing and wound VAC in place) - Abdominal General gastrointestinal: Present: soft, non-tender, non-distended, normal bowel sounds - Integumentary Integumentary: Present: clear, warm - Musculoskeletal Musculoskeletal: strength equal bilaterally - Psychiatric Psychiatric: appropriate mood/affect, cooperative - Neurologic Neurologic: CNII-XII intact, moves all extremities Plan Activity: advance as tolerated, fall precautions Diet: diabetic Wound: per wound nurse instructions, drain care as instructed Additional Instructions: Wound care per protocol. Wound vac care Follow up with: RONNIE HI DO [Staff Physician] - 7 Days PRIMARY CARE, [Primary Care Provider] - 3-5 Days SAMUEL LONDON MD [Staff Physician] - 7 Days Prescriptions: hydrALAZINE [Apresoline TAB] 10 mg PO Q8HR #90 tablet Insulin Regular, Human [Humulin R] See Protocol IJ ACHS 30 Days vial Insulin NPH/Regular [NovoLIN 70/30] 24 unit SUB-Q BIDDIAB 30 Days units oxyCODONE /ACETAMINOPHEN [Percocet 5/325 mg] 1 tab PO BID PRN #10 tablet PRN Reason: Pain, Moderate (4-6) Other Discharge Orders: Glucometer (Amb) Location: None Selected Glucometer supplies[Amb] Location: None Selected
[2018-08-30] MEDS ORDERED: APRESOLINE IV ONE (18:09)
[2018-08-31 17:58] VITALS: BP 169/68
== END 2018-08-30 19:00 | disposition home health service (06) | DRG 854 ==
LOC: ED 12:52 → 3A 22:39
PROVIDERS: ADMIT Internal Medicine; ATTEND Internal Medicine
PROC: 3E0234Z Introduction of Serum, Toxoid and Vaccine into Muscle, Percutaneous Approach (ICD-10-PCS; 2018-08-21)
PROC: 0LBV0ZZ Excision of Right Foot Tendon, Open Approach (ICD-10-PCS; principal; 2018-08-23)
DX: A41.9 Sepsis, unspecified organism (principal); E87.1 Hypo-osmolality and hyponatremia; E44.0 Moderate protein-calorie malnutrition; L03.115 Cellulitis of right lower limb; N39.0 Urinary tract infection, site not specified; E11.628 Type 2 diabetes mellitus with other skin complications; E11.621 Type 2 diabetes mellitus with foot ulcer; L97.509 Non-pressure chronic ulcer of other part of unspecified foot with unspecified severity; Z68.27 Body mass index [BMI] 27.0-27.9, adult; Z23 Encounter for immunization; E11.65 Type 2 diabetes mellitus with hyperglycemia; Z82.49 Family history of ischemic heart disease and other diseases of the circulatory system; Z83.3 Family history of diabetes mellitus; Z79.4 Long term (current) use of insulin; E86.0 Dehydration; E87.5 Hyperkalemia
CPT/HCPCS: 36415; 71045; 71046; 71275; 80048; 80053; 80202; 81001; 81025; 82140; 82805; 82962; 83036; 83735; 84100; 84132; 85025; 85027; 85379; 87040; 87076; 87116; 87186; 90471; 90715; 93005; 93010; 93306; 96374; G0378; J0360; J0690; J1170; J1650; J1815; J2250; J2270; J2543; J2704; J3370; J7030; J7040; Q9967

== ENCOUNTER 2020-01-20 11:21 | Outpatient (CLI) | payer OTHER ==
[2020-01-20 11:49] LABS: Hematocrit 25.6 % (30.3-42.9); Hemoglobin 7.9 gm/dl (10.1-14.3); Mean Corpuscular HGB Conc 31 % (30-34); Mean Corpuscular Volume 75 fl (79-97); Platelet Count 431 K/mm3 (140-440); Red Blood Count 3.41 M/mm3 (3.65-5.03); Red Cell Distribution Width 19.2 % (13.2-15.2)
[2020-01-20 12:18] LABS: Alanine Aminotransferase < 5 units/L (7-56)
== END 2020-01-20 11:22 | disposition home or self-care (01) ==
LOC: LAB 11:21
PROVIDERS: ATTEND Internal Medicine Infectious Disease
DX: R78.81 Bacteremia (principal)
CPT/HCPCS: 36415; 82565; 84450; 84460; 85027

== ENCOUNTER 2020-01-27 14:38 | Outpatient (CLI) | payer OTHER ==
[2020-01-27 15:25] LABS: Alanine Aminotransferase < 5 units/L (7-56)
[2020-01-27 15:38] LABS: Basophils # (Auto) 0.1 K/mm3 (0.0-0.1); Basophils % (Auto) 1.1 % (0.0-1.8); Eosinophils # (Auto) 0.3 K/mm3 (0.0-0.4); Eosinophils % (Auto) 2.7 % (0.0-4.3); Hematocrit 26.7 % (30.3-42.9); Hemoglobin 8.1 gm/dl (10.1-14.3); Lymphocytes # (Auto) 2.4 K/mm3 (1.2-5.4); Lymphocytes % (Auto) 25.9 % (13.4-35.0); Mean Corpuscular HGB Conc 31 % (30-34); Mean Corpuscular Volume 75 fl (79-97); Monocytes # (Auto) 0.6 K/mm3 (0.0-0.8); Monocytes % (Auto) 6.2 % (0.0-7.3); Platelet Count 563 K/mm3 (140-440); Red Blood Count 3.55 M/mm3 (3.65-5.03); Red Cell Distribution Width 19.1 % (13.2-15.2)
== END 2020-01-27 14:39 | disposition home or self-care (01) ==
LOC: LAB 14:38
PROVIDERS: ATTEND Internal Medicine Infectious Disease
DX: R78.81 Bacteremia (principal); M00.9 Pyogenic arthritis, unspecified
CPT/HCPCS: 36415; 82565; 84450; 84460; 85025

== ENCOUNTER 2020-03-12 04:01 | Inpatient (IN) | payer SELFPAY ==
[2020-03-12] MEDS ORDERED: ALBUTEROL 2.5 MG/3 ML NEBU IH PRN (10:22)
[2020-03-12] MEDS ORDERED: ALUM-MAG HYDROXIDE-SIMETHICONE 200-200-20MG/5ML ORAL LIQD 30 ML PO PRN (10:23)
[2020-03-12] MEDS ORDERED: ACETAMINOPHEN 325 MG TAB PO PRN (10:23)
[2020-03-12] MEDS ORDERED: ONDANSETRON 4 MG/2 ML INJ IV PRN (10:23)
[2020-03-12] MEDS ORDERED: DEXTROSE 50% IN WATER (25GM) 50 ML SYRINGE IV PRN (10:26)
--- NOTE | 2020-03-12 11:10 | History and Physical Report ---
History of Present Illness Date of admission: 03/12/20 10:15 Chief complaint: right knee infection History of present illness: This is a 50-year-old female with diabetes, septic arthritis, hypertension who was a direct admit from [facility] who presents with a pyogenic arthritis of the right knee. Patient had 2 weeks of swelling and pain described as aching and stabbing to her right knee rated a 6/10 without any relieving factors but worsens with movement. Patient also endorses subjective fevers for the past week. Of note patient was recently hospitalized 12/23-01/03 with MSSA right knee septic arthritis and she was discharged with IV antibiotics. She states her right knee swelling never completely resolved post antibiotics. She states she fell down on her right hip and knee 2 days ago which aggravated the swelling and pain. Patient endorses a 7 pound weight loss within the past 2 weeks. She denies chest pain, cough, hemoptysis, chills, nausea or vomiting. Patient denies any sick contacts or recent exposure to known COVID-19. Patient denies any chest pain, shortness of breath, diarrhea or loss of taste/smell. Patient states her right knee was aspirated yesterday at [facility] and records were requested. Infectious disease and orthopedics were consulted. 03/12 CBC, CMP, CRP, ESR, UA and BC x2 pending. Advance care planning conducted at bedside. Prior visit reviewed. Past History Past Medical History: diabetes, hypertension Past Surgical History: Social history: , lives with family, full code. denies: smoking, alcohol abuse, prescription drug abuse, IV drug use Family history: diabetes, other (Arthritis) Medications and Allergies Allergies Allergy/AdvReac Type Severity Reaction Status Date / Time No Known Allergies Allergy Verified 08/21/18 13:05 Home Medications Medication Instructions Recorded Confirmed Last Taken Type RX: Insulin Regular, Human See Protocol IJ ACHS 30 Days vial 08/30/18 03/12/20 03/11/20 Rx [Humulin R] RX: ALBUTEROL NEB's [Proventil 2.5 mg IH Q4H PRN #1 nebu 01/04/20 03/12/20 Unknown Rx 0.083% NEBS] RX: Acetaminophen [Acetaminophen 650 mg PO Q4H PRN tablet 01/04/20 03/12/20 03/10/20 Rx TAB] RX: Diclofenac Dr [Voltaren Dr] 75 mg PO BID #30 tablet 01/04/20 03/12/20 Unknown Rx RX: Insulin Lispro [Humalog] 0 unit SUB-Q Q6HR #1 vial 01/04/20 03/12/20 Unknown Rx RX: Insulin NPH/Regular [NovoLIN 30 unit SUB-Q BIDDIAB #1 units 01/04/20 03/12/20 Unknown Rx 70/30] RX: hydrALAZINE [Apresoline TAB] 10 mg PO Q8HR #90 tablet 01/04/20 03/12/20 Unknown Rx RX: oxyCODONE /ACETAMINOPHEN 1 tab PO Q6H PRN #14 tablet 01/04/20 03/12/20 Unknown Rx [Percocet 5/325 mg] Active Meds: Active Medications Acetaminophen (Tylenol) 650 mg PO Q4H PRN PRN Reason: Pain MILD(1-3)/Fever >100.5/SMITH Al Hydrox/Mg Hydrox/Simethicone (Alum-Mag Hydrox-Simeth [phone]/5ml) 30 ml PO Q4H PRN PRN Reason: Indigestion Albuterol (Proventil) 2.5 mg IH Q4H PRN PRN Reason: Shortness Of Breath Dextrose (D50w (25gm) Syringe) 50 ml IV Q30MIN PRN; Protocol PRN Reason: Hypoglycemia Famotidine (Pepcid) 20 mg PO BID [facility]IR[facility] Hydralazine HCl (Apresoline) 10 mg PO Q8HR [facility] Insulin Human Regular (Humulin R) 0 unit SUB-Q [facility]; Protocol Ondansetron HCl (Zofran) 4 mg IV Q8H PRN PRN Reason: Nausea And Vomiting Oxycodone/Acetaminophen (Percocet 5/325) 1 tab PO Q6H PRN PRN Reason: Pain, Moderate (4-6) Senna (Senokot) 8.6 mg PO Q12HR [facility] Sodium Chloride (Sodium Chloride Flush Syringe 10 Ml) 10 ml IV BID [facility] Sodium Chloride (Sodium Chloride Flush Syringe 10 Ml) 10 ml IV PRN PRN PRN Reason: LINE FLUSH Review of Systems Constitutional: fever, no weight loss, no weight gain, no chills, no sweats, no night sweats, no anorexia, no fatigue, no weakness, no malaise, no lethargy, no chronic headaches Eyes: bilateral: blurred vision (Since last admit) Ears, nose, mouth and throat: no ear pain, no ear discharge, no tinnitis, no decreased hearing, no nose pain, no nasal congestion, no nasal discharge, no sinus pressure, no sinus pain, no epistaxis, no bleeding gums, no dental pain, no mouth pain, no dysphagia, no hoarseness, no sore throat, no swelling in mouth, no swelling in throat, no odynophagia, no voice changes, no post-nasal drip, no headache, no pain front of neck, no neck fullness/pressure Cardiovascular: high blood pressure, no chest pain, no orthopnea, no palpitations, no rapid/irregular heart beat, no edema, no syncope, no lightheadedness, no shortness of breath, no dyspnea on exertion, no paroxysmal nocturnal dyspnea, no claudication, no leg edema, no decreased exercise tolerance Respiratory: no cough, no cough with sputum, no excessive sputum, no hemoptysis, no shortness of breath, no dyspnea on exertion, no congestion, no wheezing, no pleurisy, no pain, no pain on inspiration Gastrointestinal: no abdominal pain, no nausea, no vomiting, no diarrhea, no constipation, no hematemesis, no coffee ground emesis, no BRBPR, no melena, no hematochezia, no heartburn Genitourinary Female: no pelvic pain, no flank pain, no dysuria, no urinary darrel quency, no urgency, no hematuria, no nocturia, no vaginal itching, no vaginal discharge, no vaginal odor Rectal: no pain, no incontinence, no bleeding, no itching, no hemorrhoids Musculoskeletal: leg numbness/tingling, redness of joints, no neck stiffness, no neck pain, no shooting arm pain, no arm numbness/tingling, no low back pain, no shooting leg pain, no morning stiffness, no muscle weakness, no muscle cramps, no myalgias, no atrophy, no limitation of motion, no fractures Integumentary: redness, no pruritis, no sores, no wounds, no jaundice, no boils, no blisters, no growths, no depigmentation Neurological: weakness, numbness, other (Blurry vision), no head injury, no transient paralysis, no paralysis, no parathesias, no tingling, no seizures, no syncope, no tremors, no ataxia, no lack of coordination, no vertigo, no headaches, no migraines, no change in speech, no change in mentation, no confusion, no changes in smell/taste Psychiatric: no anxiety, no memory loss, no change in sleep habits, no sleep disturbances, no insomnia, no hypersomnia, no change in libido, no suicidal ideation, no disorientation, no hallucinations, no paranoia Endocrine: no cold intolerance, no heat intolerance, no polyphagia, no excessive thirst, no polydipsia, no polyuria, no nocturia, no excessive sweating, no weight change, no increase in ring/shoe/hat size, no high blood sugars, no low blood sugars Hematologic/Lymphatic: no easy bruising, no easy bleeding Allergic/Immunologic: no urticaria, no allergic rhinitis Exam - Constitutional General appearance: Present: mild distress - EENT Eyes: Present: PERRL, EOM intact ENT: hearing intact, clear oral mucosa - Neck Neck: Present: supple, normal ROM - Respiratory Respiratory effort: normal Respiratory: bilateral: CTA - Cardiovascular Rhythm: regular Heart Sounds: Present: S1 & S2. Absent: systolic murmur, diastolic murmur - Extremities Extremities: no ischemia, pulses intact, pulses symmetrical Extremity abnormal: edema (To the right knee), erythema (To right knee), tenderness (To right knee) Peripheral Pulses: within normal limits - Abdominal General gastrointestinal: Present: soft, non-tender, non-distended, normal bowel sounds - Integumentary Integumentary: Present: warm, dry - Musculoskeletal Musculoskeletal: strength equal bilaterally - Psychiatric Psychiatric: appropriate mood/affect, memory intact, cooperative - Neurologic Neurologic: CNII-XII intact, no focal deficits, moves all extremities HEART Score - HEART Score History: Slightly suspicious EKG: Normal Age: 45-65 Risk factors: 1-2 risk factors Troponin: < normal limit HEART Score: 2 Results - Labs CBC & Chem 7: 03/12/20 13:21 03/12/20 13:21 - Diagnostic Impressions Diagnostic Impressions: 03/12 right knee xr shows Diffuse soft tissue swelling and margot large joint effusion has increased since the previous exam. Cortical irregularity has developed in the lateral tibial plateau concerning for fracture or bony destruction. Moderate degenerative changes are noted throughout the knee which appear increased in the lateral compartment since the previous exam. Consider further evaluation with MRI with and without contrast. Assessment and Plan - Patient Problems (1) Sepsis Current Visit: No Status: Acute Qualifiers: Sepsis type: sepsis due to unspecified organism Sepsis acute organ dysfunction status: unspecified Qualified Code(s): A41.9 - Sepsis, unspecified organism Plan to address problem: Present on admission with tachycardia and leukocytosis, fever at home; likely secondary to recurrent right knee septic arthritis. 03/12 BC x2 03/12 UC Trend CBC Antibiotic therapy Obtain medical records from [facility] for aspiration of synovial joint (2) Pyogenic arthritis Current Visit: Yes Status: Acute Qualifiers: Septic arthritis location: knee Laterality: right Plan to address problem: Presents with right knee swelling, erythema, tenderness for 2 weeks Was recently discharged from the hospital in December for a right septic knee and completed her course of antibiotics for MSSA 03/12 right knee xr shows diffuse soft tissue swelling and a very large joint effusion has increased since the previous exam. Cortical irregularity has developed in the lateral tibial plateau concerning for fracture or bony destruction. Moderate degenerative changes are noted throughout the knee which appear increased in the lateral compartment since the previous exam. Consider further evaluation with MRI with and without contrast. ID consulted Patient received an aspiration at OSH, records requested Orthopedics consulted 03/12 MRI of RLE pending Per ID: initial MSSA bacteremia in August 2019, recurrent MSSA bacteremia and MSSA right knee septic arthritis in December 2019; Patient was treated with cefazolin 2 g IV q 8 hour daily 4 weeks until 01/25/2020. Patient is non complaint, did not show to the infusion center for some of her PICC line dressing changes. Antibiotic therapy: Vancomycin and cefazolin 03/12 CRP 21 (3) Anemia Current Visit: Yes Status: Acute Plan to address problem: 03/12 H7H 6.8/22.3 Stat type and cross Transfuse 1 unit PRBC and obtain posttransfusion H&H Transfuse for hemoglobin less than 7 Trend CBC (4) Thrombocythemia Current Visit: Yes Status: Acute Plan to address problem: Admit platelets 564K Trend CBC Likely reactive in setting of sepsis secondary to septic knee arthritis (5) Leukocytosis Current Visit: Yes Status: Acute Plan to address problem: Admit leukocytosis 15.3 Trend CBC Antibiotic therapy (6) Hypertension Current Visit: Yes Status: Chronic Plan to address problem: Resume home regimen of hydralazine One-time dose of labetalol Blood pressure monitor per protocol (7) Diabetes mellitus Current Visit: Yes Status: Chronic Plan to address problem: Restarted home Lantus CC diet 03/12 hemoglobin A1c 7.9 SSI Accu-Cheks AC at bedtime Hypoglycemic protocol (8) Noncompliance with medication regimen Current Visit: No Status: Acute Plan to address problem: Patient states that she does not have a PCP Stressed importance of establishing care with a PCP and continuing medications for diabetes and high blood pressure Patient stated that she has been compliant with her insulin for her diabetes however she stopped taking her antihypertensive when she ran out CM consulted for social issues (9) DVT prophylaxis Current Visit: No Status: Acute Plan to address problem: Heparin subcu SCDs to bilateral lower extremities while in bed (10) Full code status Current Visit: Yes Status: Acute
--- NOTE | 2020-03-12 11:43 | XRay Report ---
RIGHT KNEE 2 VIEWS INDICATION: infected knee. COMPARISON: 12/24/2019 IMPRESSION: Diffuse soft tissue swelling and margot large joint effusion has increased since the prev ious exam. Cortical irregularity has developed in the lateral tibial plateau concerning for fracture or bony destruction. Moderate degenerative changes are noted throughout the knee which appear increas ed in the lateral compartment since the previous exam. Consider further evaluation with MRI with and without contrast. Signer Name: Edson Sanchez Jr, MD Signed: 03/12/2020 11:39 AM Workstation Name: [id number]
[2020-03-12] MEDS: INSULIN REGULAR, HUMAN 100 UNIT/ML 3ML VIAL SUB-Q SCH ×2 (13:08→17:56)
[2020-03-12] MEDS: hydrALAZINE 10 MG TAB PO SCH (13:08)
[2020-03-12 13:50] LABS: Basophils # (Auto) 0.2 K/mm3 (0.0-0.1); Basophils % (Auto) 1.1 % (0.0-1.8); Eosinophils # (Auto) 0.1 K/mm3 (0.0-0.4); Eosinophils % (Auto) 0.6 % (0.0-4.3); Hematocrit 22.3 % (30.3-42.9); Hemoglobin 6.8 gm/dl (10.1-14.3); Lymphocytes # (Auto) 2.6 K/mm3 (1.2-5.4); Lymphocytes % (Auto) 17.3 % (13.4-35.0); Mean Corpuscular HGB Conc 31 % (30-34); Monocytes # (Auto) 0.9 K/mm3 (0.0-0.8); Monocytes % (Auto) 5.6 % (0.0-7.3); Platelet Count 564 K/mm3 (140-440); Red Blood Count 3.32 M/mm3 (3.65-5.03); Red Cell Distribution Width 18.2 % (13.2-15.2)
[2020-03-12 13:56] LABS: Mean Corpuscular Volume 67 fl (79-97)
--- NOTE | 2020-03-12 14:01 | Consultation ---
History of Present Illness - Reason for Consult Consult date: 03/12/20 infected left knee Requesting physician: DELIA PARKS - History of Present Illness 50 years old female with history of uncontrolled diabetes, osteoarthritis, initial MSSA bacteremia in August 2019, recurrent MSSA bacteremia and MSSA right knee septic arthritis in December 2019, well-known to infectious diseases service, admitted on 03/12/2020 due to recurrent right knee septic arthritis. Patient h as been complaining of worsening right knee pain and swelling, unable to bear any weight, associated with low-grade fever for 2 weeks. She reports that she feels that her knee never completely recovered. She denies any nausea, vomiting, diarrhea, chest pain, cough. Apparently patient also fell down on her right knee 2 days before admission. Patient went to [facility] where she was evaluated, had a aspiration and was transferred to [facility] for further management. In December 2019, patient had blood cultures positive for MSSA on 12/24/2019 knee aspiration demonstrated 54,000 WBCs with 97% neutrophils and negative crystals. Synovitic fluid on 12/24/2019 grew MSSA. Patient was evaluated by orthopedics. Patient was treated with cefazolin 2 g IV q 8 hour daily 4 weeks until 01/25/2020. Patient is non complaint, did not show to the infusion center for some of her PICC line dressing changes. On arrival, temperature 98.9, HR 98, RR 16, BP 189/86. Initial WBC 15.3. Hemoglobin 6.8. Platelets 564. Glucose 236. Review of Systems: positive in bold print General: fever, chills, malaise Cutaneous: rash, pruritus Head: headaches or injury Eyes: changes in vision, eye pain, double vision Ears: ear pain, ear discharge, ringing or hearing loss Nose: nose bleeding, stuffiness Mouth & throat: bleeding gums, horseness, no dental problems, or swollen glands Neck: no pain, node enlargement/lumps, tyroid enlargement or tenderness Respiratory: SOB, cough, WIGGINS, wheezing, sputum, hemoptysis, pleuritic chest pa in Cardiovascular: chest pain, leg edema, cyanosis, WIGGINS, orthopnea Musculoskeletal: Right knee edema, pain Gastrointestinal: nausea, vomiting, hematemesis, diarrhea, constipation, melena, bright red blood in stools, fecal incontinence, jaundice Genitourinary/Reproductive: frequent urination, dysuria, hematuria, incontinence Neurogical: seizures, headaches, weakness, paresthesias, loss of speech or vision; memory loss, vertigo, tremors, numbness Psychiatric: stable mood; excessive anxiety, sadness or moodiness Past History Past Medical History: diabetes, hypertension Past Surgical History: Social history: , lives with family, full code. denies: smoking, alcohol abuse, prescription drug abuse, IV drug use Family history: diabetes, other (Arthritis) Medications and Allergies Allergies Allergy/AdvReac Type Severity Reaction Status Date / Time No Known Allergies Allergy Verified 08/21/18 13:05 Home Medications Medication Instructions Recorded Confirmed Last Taken Type Insulin Regular, Human [Humulin R] See Protocol IJ ACHS 30 Days vial 08/30/18 03/12/20 03/11/20 Rx ALBUTEROL NEB's [Proventil 0.083% 2.5 mg IH Q4H PRN #1 nebu 01/04/20 03/12/20 Unknown Rx NEBS] Acetaminophen [Acetaminophen TAB] 650 mg PO Q4H PRN tablet 01/04/20 03/12/20 03/10/[address] [Voltaren Dr] 75 mg PO BID #30 tablet 01/04/20 03/12/20 Unknown Rx Insulin Lispro [Humalog] 0 unit SUB-Q Q6HR #1 vial 01/04/20 03/12/20 Unknown Rx Insulin NPH/Regular [NovoLIN 70/30] 30 unit SUB-Q BIDDIAB #1 units 01/04/20 03/12/20 Unknown Rx hydrALAZINE [Apresoline TAB] 10 mg PO Q8HR #90 tablet 01/04/20 03/12/20 Unknown Rx oxyCODONE /ACETAMINOPHEN [Percocet 1 tab PO Q6H PRN #14 tablet 01/04/20 03/12/20 Unknown Rx 5/325 mg] Active Meds: Active Medications Acetaminophen (Tylenol) 650 mg PO Q4H PRN PRN Reason: Pain MILD(1-3)/Fever >100.5/SMITH Al Hydrox/Mg Hydrox/Simethicone (Alum-Mag Hydrox-Simeth [id number]/5ml) 30 ml PO Q4H PRN PRN Reason: Indigestion Albuterol (Proventil) 2.5 mg IH Q4H PRN PRN Reason: Shortness Of Breath Dextrose (D50w (25gm) Syringe) 50 ml IV Q30MIN PRN; Protocol PRN Reason: Hypoglycemia Famotidine (Pepcid) 20 mg PO BID [facility] Heparin Sodium (Porcine) (Heparin) 5,000 unit SUB-Q Q12HR [facility] Hydralazine HCl (Apresoline) 10 mg PO Q8HR [facility] Last Admin: 03/12/20 13:08 Dose: 10 mg Documented by: Insulin Human Isoph/Insulin Regular (Humulin 70/30) 30 unit SUB-Q BIDDIAB [facility] Insulin Human Regular (Humulin R) 0 unit SUB-Q ACHS [facility]; Protocol Last Admin: 03/12/20 13:08 Dose: 2 unit Documented by: Ondansetron HCl (Zofran) 4 mg IV Q8H PRN PRN Reason: Nausea And Vomiting Oxycodone/Acetaminophen (Percocet 5/325) 1 tab PO Q6H PRN PRN Reason: Pain, Moderate (4-6) Senna (Senokot) 8.6 mg PO Q12HR [facility] Sodium Chloride (Sodium Chloride Flush Syringe 10 Ml) 10 ml IV BID [facility] Last Admin: 03/12/20 13:09 Dose: 10 ml Documented by: Sodium Chloride (Sodium Chloride Flush Syringe 10 Ml) 10 ml IV PRN PRN PRN Reason: LINE FLUSH Physical Examination - Physical Exam Narrative exam: General appearance: Alert in NAD Eyes: anicteric sclerae, moist conjunctivae; no lid-lag; PERRLA HENT: Atraumatic; oropharynx clear with moist mucous membranes and no oral thrush; normal hard and soft palate. Lungs: CTA, with normal respiratory effort and no intercostal retractions CV: RRR no murmur Abdomen: Soft, non-tender; no masses or hepatosplenomegaly Extremities: Right knee edema, tenderness, heat Skin: No rash. Psych: Appropriate affect, alert and oriented to person, place and time. Neuro: alert and oriented x 3. Moving all extermities - Constitutional Vitals: Vital Signs Temp Pulse Resp BP Pulse Ox 98.9 F 98 H 16 189/86 100 03/12/20 10:15 03/12/20 10:15 03/12/20 10:15 03/12/20 10:15 03/12/20 10:15 Temperature -Last 24 Hours Temperature 98.9 F Results - Labs CBC & Chem 7: 03/12/20 13:21 03/12/20 13:21 Labs: Abnormal lab results 03/12/20 03/12/20 Range/Units 11:49 13:21 WBC 15.3 H (4.5-11.0) K/mm3 RBC 3.32 L (3.65-5.03) M/mm3 Hgb 6.8 L (10.1-14.3) gm/dl Hct 22.3 L (30.3-42.9) % MCV 67 L (79-97) fl MCH 21 L (28-32) pg RDW 18.2 H (13.2-15.2) % Plt Count 564 H (140-440) K/mm3 Rush # (Auto) 0.9 H (0.0-0.8) K/mm3 Baso # (Auto) 0.2 H (0.0-0.1) K/mm3 Seg Neutrophils % 75.4 H (40.0-70.0) % Seg Neutrophils # 11.5 H (1.8-7.7) K/mm3 POC Glucose 236 H (70-105) mg/dL Assessment and Plan Cultures: none Assessment: 50 years old female with history of uncontrolled diabetes, osteoarthritis, initial MSSA bacteremia in August 2019, recurrent MSSA bacteremia and MSSA right knee septic arthritis in December 2019, well-known to infectious diseases service, admitted on 03/12/2020 due to recurrent right knee septic arthritis: #Sepsis: Present on admission with tachycardia and leukocytosis, fever at home; likely secondary to recurrent right knee septic arthritis. #Recurrent right knee septic arthritis: Apparently, she had a right knee aspiration at [facility] last night, results pending. In December 2019, patient had blood cultures positive for MSSA on 12/24/2019 knee aspiration demonstrated 54,000 WBCs with 97% neutrophils and negative crystals. Synovitic fluid on 12/24/2019 grew MSSA. Patient was evaluated by orthopedics. Patient was treated with cefazolin 2 g IV q 8 hour daily 4 weeks until 01/25/2020. Patient is non co mplaint, did not show to the infusion center for some of her PICC line dressing changes. #History of recurrent MSSA bacteremia: Initially in August 2019 underwent in December 2019. #Noncompliant: Patient missed several appointments for PICC line dressing changes and follow-up with infectious diseases. #Uncontrolled diabetes: Not better. #Severe anemia: Per primary team. Recommendations: -Obtain blood cultures -Obtain CRP -Obtain [facility] knee aspiration and studies with cultures as well as blood cultures -Orthopedic consultation, patient may need washout in the OR due to recurrent right knee septic arthritis -Start vancomycin IV with PK consult -Start cefazolin 2 g IV every 8 hours Unfortunately guarded prognosis since patient is noncompliant Will follow. Elisa Mckay MD Infectious Diseases As[employer] [facility] M [phone] O [phone]
[2020-03-12 14:04] LABS: Albumin 2.4 g/dL (3.9-5); Blood Urea Nitrogen 9 mg/dL (7-17); Calcium 8.8 mg/dL (8.4-10.2); Chol/HDL Ratio 4.26 %; Hemolysis Index 9
[2020-03-12 14:05] LABS: Alanine Aminotransferase < 5 units/L (7-56); BUN/Creatinine Ratio 15
[2020-03-12 14:18] LABS: Erythrocyte Sedimentation Rate > 140.0 mm/Hr (0-20)
[2020-03-12] MEDS: oxyCODONE /ACETAMINOPHEN 5-325MG TAB PO PRN (14:29)
[2020-03-12] MEDS ORDERED: SODIUM CHLORIDE 0.9% 500 ML 500 ML IV NR (14:55)
[2020-03-12] MEDS ORDERED: SODIUM CHLORIDE 0.9% 100 ML IVPB IV SCH (15:00)
[2020-03-12] MEDS ORDERED: VANCOMYCIN PHARMACY TO DOSE IV SCH (15:00)
[2020-03-12] MEDS: SODIUM CHLORIDE 0.9% 1000 ML 1,000 ML IV SCH (15:48)
[2020-03-12] MEDS ORDERED: VANCOMYCIN 1,750 MG in SODIUM CHLORIDE 0.9% 500 ML 500 ML IV ONE (16:00)
--- NOTE | 2020-03-12 17:29 | Consultation ---
History of Present Illness - HPI Consult date: 03/12/20 Consult reason: joint pain (50 y/o female with c/o right knee pain and swelling for past several weeks, placed IVAB back in December) Past History Past Medical History: diabetes, hypertension Past Surgical History: Social history: , lives with family, full code. denies: smoking, alcohol abuse, prescription drug abuse, IV drug use Family history: diabetes, other (Arthritis) Medications and Allergies Allergies Allergy/AdvReac Type Severity Reaction Status Date / Time No Known Allergies Allergy Verified 08/21/18 13:05 Home Medications Medication Instructions Recorded Confirmed Last Taken Type Insulin Regular, Human [Humulin R] See Protocol IJ ACHS 30 Days vial 08/30/18 03/12/20 03/11/20 Rx ALBUTEROL NEB's [Proventil 0.083% 2.5 mg IH Q4H PRN #1 nebu 01/04/20 03/12/20 Unknown Rx NEBS] Acetaminophen [Acetaminophen TAB] 650 mg PO Q4H PRN tablet 01/04/20 03/12/20 03/10/[address] [Gale Dr] 75 mg PO BID #30 tablet 01/04/20 03/12/20 Unknown Rx Insulin Lispro [Humalog] 0 unit SUB-Q Q6HR #1 vial 01/04/20 03/12/20 Unknown Rx Insulin NPH/Regular [NovoLIN 70/30] 30 unit SUB-Q BIDDIAB #1 units 01/04/20 03/12/20 Unknown Rx hydrALAZINE [Apresoline TAB] 10 mg PO Q8HR #90 tablet 01/04/20 03/12/20 Unknown Rx oxyCODONE /ACETAMINOPHEN [Percocet 1 tab PO Q6H PRN #14 tablet 01/04/20 03/12/20 Unknown Rx 5/325 mg] Active Meds: Active Medications Acetaminophen (Tylenol) 650 mg PO Q4H PRN PRN Reason: Pain MILD(1-3)/Fever >100.5/SMITH Al Hydrox/Mg Hydrox/Simethicone (Alum-Mag Hydrox-Simeth [id number]/5ml) 30 ml PO Q4H PRN PRN Reason: Indigestion Albuterol (Proventil) 2.5 mg IH Q4H PRN PRN Reason: Shortness Of Breath Dextrose (D50w (25gm) Syringe) 50 ml IV Q30MIN PRN; Protocol PRN Reason: Hypoglycemia Famotidine (Pepcid) 20 mg PO BID [facility] Heparin Sodium (Porcine) (Heparin) 5,000 unit SUB-Q Q12HR AMIRA Hydralazine HCl (Apresoline) 10 mg PO Q8HR AMIRA Last Admin: 03/12/20 13:08 Dose: 10 mg Documented by: Cefazolin Sodium 2 gm/ Sodium (Chloride) 100 mls @ 100 mls/hr IV Q8HR AMIRA Last Admin: 03/12/20 15:48 Dose: 100 mls/hr Documented by: Vancomycin HCl 1,750 mg/ (Sodium Chloride) 535 mls @ 333.333 mls/hr IV ONCE ONE Stop: 03/12/20 17:36 Vancomycin HCl 1,250 mg/ (Sodium Chloride) 275 mls @ 166.667 mls/hr IV Q12H AMIRA Sodium Chloride (Nacl 0.9% 500 Ml) 500 mls @ 0 mls/hr IV ONCE NR Stop: 03/13/20 14:54 Sodium Chloride (Nacl 0.9% 1000 Ml) 1,000 mls @ 75 mls/hr IV DIRECT AMIRA Last Admin: 03/12/20 15:48 Dose: 75 mls/hr Documented by: Insulin Human Isoph/Insulin Regular (Humulin 70/30) 30 unit SUB-Q BIDDIAB [facility] Insulin Human Regular (Humulin R) 0 unit SUB-Q ACHS [facility]; Protocol Last Admin: 03/12/20 13:08 Dose: 2 unit Documented by: Ondansetron HCl (Zofran) 4 mg IV Q8H PRN PRN Reason: Nausea And Vomiting Oxycodone/Acetaminophen (Percocet 5/325) 1 tab PO Q6H PRN PRN Reason: Pain, Moderate (4-6) Last Admin: 03/12/20 14:29 Dose: 1 tab Documented by: Senna (Senokot) 8.6 mg PO Q12HR AMIRA Sodium Chloride (Sodium Chloride Flush Syringe 10 Ml) 10 ml IV BID AMIRA Last Admin: 03/12/20 13:09 Dose: 10 ml Documented by: Sodium Chloride (Sodium Chloride Flush Syringe 10 Ml) 10 ml IV PRN PRN PRN Reason: LINE FLUSH Physical Examination - Physical exam Narrative exam: right knee - moderate effusion, good active ROM, tender at joint lines, slight increase warmth noted no erythema/redness note Assessment and Plan right knee pain and swelling recommend arthroscopic examination with synovial biopsy and culture & sensitivities
[2020-03-12 17:32] LABS: Hematocrit 22.7 % (30.3-42.9); Hemoglobin 7.1 gm/dl (10.1-14.3)
[2020-03-12] MEDS: INSULIN NPH/REGULAR 70/30 INJ SUB-Q SCH (17:56)
[2020-03-12 19:22] LABS: Bilirubin,Urine NEG (Negative); Blood,Urine NEG (Negative); Color,Urine Yellow (Yellow); Mucus,Urine FEW /HPF; Urobilinogen,Urine < 2.0 mg/dL (<2.0)
[2020-03-12 19:23] LABS: WBC,Urine > 182.0 /HPF (0.0-6.0)
[2020-03-12 19:26] LABS: Microalbumin/Creatinine Ratio 206.3 ug/mg
[2020-03-12] MEDS ORDERED: FAMOTIDINE 20 MG TAB ONE (23:30)
[2020-03-12] MEDS ORDERED: SENNOSIDES 8.6 MG TAB ONE (23:30)
[2020-03-12] MEDS ORDERED: hydrALAZINE 10 MG TAB ONE (23:30)
[2020-03-12] MEDS ORDERED: HEPARIN 5,000 UNIT/1 ML VIAL ONE (23:30)
[2020-03-13] MEDS ORDERED: hydrALAZINE 10 MG TAB ONE (05:00)
[2020-03-13] MEDS ORDERED: HYDROcodone/ACETAMINOPHEN 5-325 MG TAB ONE ×2 (05:00→09:30)
[2020-03-13] MEDS ORDERED: SENNOSIDES 8.6 MG TAB ONE (09:30)
[2020-03-13] MEDS ORDERED: HEPARIN 5,000 UNIT/1 ML VIAL ONE (09:30)
[2020-03-13] MEDS ORDERED: FAMOTIDINE 20 MG TAB ONE (09:30)
[2020-03-13] MEDS ORDERED: ceFAZolin 1 GM VIAL ONE (14:00)
[2020-03-13] MEDS ORDERED: SODIUM CHLORIDE 0.9% 50 ML IVPB ONE (14:00)
[2020-03-13] MEDS ORDERED: VANCOMYCIN 1,000 MG/20 ML ONE (18:00)
[2020-03-13] MEDS ORDERED: SODIUM CHLORIDE 0.9% 250 ML IVPB ONE (18:00)
[2020-03-13] MEDS: HEPARIN 5,000 UNIT/1 ML VIAL SUB-Q SCH ×2 (20:07→21:29)
[2020-03-13] MEDS: hydrALAZINE 10 MG TAB PO SCH ×2 (20:07→21:29)
[2020-03-13] MEDS: FAMOTIDINE 20 MG TAB PO SCH (21:29)
[2020-03-13] MEDS: SENNOSIDES 8.6 MG TAB PO SCH (21:30)
[2020-03-13] MEDS: INSULIN REGULAR, HUMAN 100 UNIT/ML 3ML VIAL SUB-Q SCH (21:30)
--- NOTE | 2020-03-13 22:51 | Progress Note ---
Assessment and Plan Assessment and plan: This is a 50-year-old female with diabetes, septic arthritis, hypertension who was a direct admit from [facility] who presents with a pyogenic arthritis of the right knee. Patient had 2 weeks of swelling and pain described as aching and stabbing to her right knee rated a 6/10 without any relieving factors but worsens with movement. Patient also endorses subjective fevers for the past week. Of note patient was recently hospitalized 12/23-01/03 with MSSA right knee septic arthritis and she was discharged with IV antibiotics. She states her right knee swelling never completely resolved post antibiotics. She states she fell down on her right hip and knee 2 days ago which aggravated the swelling and pain. Patient endorses a 7 pound weight loss within the past 2 weeks. She denies chest pain, cough, hemoptysis, chills, nausea or vomiting. Patient denies any sick contacts or recent exposure to known COVID-19. Patient denies any chest pain, shortness of breath, diarrhea or loss of taste/smell. Patient states her right knee was aspirated yesterday at [facility] and records were requested. Infectious disease and orthopedics were consulted. 03/12 CBC, CMP, CRP, ESR, UA and BC x2 pending. Advance care planning conducted at bedside. Prior visit reviewed. -XRAY 03/12 right knee xr shows Diffuse soft tissue swelling and margot large joint effusion has increased since the previous exam. Cortical irregularity has developed in the lateral tibial plateau concerning for fracture or bony destruction. Moderate degenerative changes are noted throughout the knee which appear increased in the lateral compartment since the previous exam. Consider further evaluation with MRI with and without contrast. 03/13: Clinical stable, awaiting Surgical intervention, continue abx and pain control. - Patient Problems (1) Sepsis Current Visit: No Status: Acute Qualifiers: Sepsis type: sepsis due to unspecified organism Sepsis acute organ dysfunction status: unspecified Qualified Code(s): A41.9 - Sepsis, unspecified organism Plan to address problem: Present on admission with tachycardia and leukocytosis, fever at home; likely secondary to recurrent right knee septic arthritis. 03/12 BC x2 03/12 UC Trend CBC Antibiotic therapy Obtain medical records from [facility] for aspiration of synovial joint (2) Pyogenic arthritis Current Visit: Yes Status: Acute Qualifiers: Septic arthritis location: knee Laterality: right Plan to address problem: Presents with right knee swelling, erythema, tenderness for 2 weeks Was recently discharged from the hospital in December for a right septic knee and completed her course of antibiotics for MSSA 03/12 right knee xr shows diffuse soft tissue swelling and a very large joint effusion has increased since the previous exam. Cortical irregularity has developed in the lateral tibial plateau concerning for fracture or bony destruction. Moderate degenerative changes are noted throughout the knee which appear increased in the lateral compartment since the previous exam. Consider further evaluation with MRI with and without contrast. ID consulted Patient received an aspiration at OSH, records requested Orthopedics consulted 03/12 MRI of RLE pending Per ID: initial MSSA bacteremia in August 2019, recurrent MSSA bacteremia and MSSA right knee septic arthritis in December 2019; Patient was treated with cefazolin 2 g IV q 8 hour daily 4 weeks until 01/25/2020. Patient is non co mplaint, did not show to the infusion center for some of her PICC line dressing changes. Antibiotic therapy: Vancomycin and cefazolin 03/12 CRP 21 (3) Anemia Current Visit: Yes Status: Acute Plan to address problem: 03/12 H7H 6.8/22.3 Stat type and cross Transfuse 1 unit PRBC and obtain posttransfusion H&H Transfuse for hemoglobin less than 7 Trend CBC (4) Thrombocythemia Current Visit: Yes Status: Acute Plan to address problem: Admit platelets 564K Trend CBC Likely reactive in setting of sepsis secondary to septic knee arthritis (5) Leukocytosis Current Visit: Yes Status: Acute Plan to address problem: Admit leukocytosis 15.3 Trend CBC Antibiotic therapy (6) Hypertension Current Visit: Yes Status: Chronic Plan to address problem: Resume home regimen of hydralazine One-time dose of labetalol Blood pressure monitor per protocol (7) Diabetes mellitus Current Visit: Yes Status: Chronic Plan to address problem: Restarted home Lantus CC diet 03/12 hemoglobin A1c 7.9 SSI Accu-Cheks AC at bedtime Hypoglycemic protocol (8) Noncompliance with medication regimen Current Visit: No Status: Acute Plan to address problem: Patient states that she does not have a PCP Stressed importance of establishing care with a PCP and continuing medications for diabetes and high blood pressure Patient stated that she has been compliant with her insulin for her diabetes however she stopped taking her antihypertensive when she ran out CM consulted for social issues (9) DVT prophylaxis Current Visit: No Status: Acute Plan to address problem: Heparin subcu SCDs to bilateral lower extremities while in bed (10) Full code status Current Visit: Yes Status: Acute History Interval history: Patient seen and examined, no new complaints except knee pain 5/10 in intensity. Hospitalist Physical - Physical exam Narrative exam: - Constitutional General appearance: Present: Resting comfortably this morning with no distress - EENT Eyes: Present: PERRL, EOM intact ENT: hearing intact, clear oral mucosa - Neck Neck: Present: supple, normal ROM - Respiratory Respiratory effort: normal Respiratory: bilateral: CTA - Cardiovascular Rhythm: regular Heart Sounds: Present: S1 & S2. Absent: systolic murmur, diastolic murmur - Extremities Extremities: no ischemia, pulses intact, pulses symmetrical Extremity abnormal: edema (To the right knee), erythema (To right knee), tenderness (To right knee) Peripheral Pulses: within normal limits - Abdominal General gastrointestinal: Present: soft, non-tender, non-distended, normal bowel sounds - Integumentary Integumentary: Present: warm, dry - Musculoskeletal Musculoskeletal: strength equal bilaterally - Psychiatric Psychiatric: appropriate mood/affect, memory intact, cooperative - Neurologic Neurologic: CNII-XII intact, no focal deficits, moves all extremities - Constitutional Vitals: Temp Pulse Resp BP Pulse Ox 98.0 F 94 H 20 182/86 95 03/13/20 18:00 03/13/20 21:29 03/13/20 18:00 03/13/20 21:29 03/13/20 22:00 General appearance: Present: mild distress HEART Score - HEART Score EKG: Normal Age: 45-65 Risk factors: 1-2 risk factors Troponin: < normal limit Results - Labs CBC & Chem 7: 03/12/20 16:17 03/12/20 13:21 Labs: Laboratory Last Values WBC 15.3 K/mm3 (4.5-11.0) H 03/12/20 13:21 RBC 3.32 M/mm3 (3.65-5.03) L 03/12/20 13:21 Hgb 7.1 gm/dl (10.1-14.3) L 03/12/20 16:17 Hct 22.7 % (30.3-42.9) L 03/12/20 16:17 MCV 67 fl (79-97) L 03/12/20 13:21 MCH 21 pg (28-32) L 03/12/20 13:21 MCHC 31 % (30-34) 03/12/20 13:21 RDW 18.2 % (13.2-15.2) H 03/12/20 13:21 Plt Count 564 K/mm3 (140-440) H 03/12/20 13:21 Lymph % (Auto) 17.3 % (13.4-35.0) 03/12/20 13:21 Murray % (Auto) 5.6 % (0.0-7.3) 03/12/20 13:21 Eos % (Auto) 0.6 % (0.0-4.3) 03/12/20 13:21 Baso % (Auto) 1.1 % (0.0-1.8) 03/12/20 13:21 Lymph # (Auto) 2.6 K/mm3 (1.2-5.4) 03/12/20 13:21 Murray # (Auto) 0.9 K/mm3 (0.0-0.8) H 03/12/20 13:21 Eos # (Auto) 0.1 K/mm3 (0.0-0.4) 03/12/20 13:21 Baso # (Auto) 0.2 K/mm3 (0.0-0.1) H 03/12/20 13:21 Seg Neutrophils % 75.4 % (40.0-70.0) H 03/12/20 13:21 Seg Neutrophils # 11.5 K/mm3 (1.8-7.7) H 03/12/20 13:21 ESR > 140.0 mm/Hr (0-20) 03/12/20 13:21 Sodium 130 mmol/L (137-145) L 03/12/20 13:21 Potassium 3.7 mmol/L (3.6-5.0) 03/12/20 13:21 Chloride 93.8 mmol/L (98-107) L 03/12/20 13:21 Carbon Dioxide 24 mmol/L (22-30) 03/12/20 13:21 Anion Gap 16 mmol/L 03/12/20 13:21 BUN 9 mg/dL (7-17) 03/12/20 13:21 Creatinine 0.6 mg/dL (0.6-1.2) 03/12/20 13:21 Estimated GFR > 60 ml/min 03/12/20 13:21 BUN/Creatinine Ratio 15 % 03/12/20 13:21 Glucose 215 mg/dL (65-100) H 03/12/20 13:21 POC Glucose 209 mg/dL (70-105) H 03/13/20 21:23 Hemoglobin A1c 7.9 % (4-6) H 03/12/20 13:21 Calcium 8.8 mg/dL (8.4-10.2) 03/12/20 13:21 Total Bilirubin 0.60 mg/dL (0.1-1.2) 03/12/20 13:21 AST 6 units/L (5-40) 03/12/20 13:21 ALT < 5 units/L (7-56) L 03/12/20 13:21 Alkaline Phosphatase 100 units/L (35-129) 03/12/20 13:21 C-Reactive Protein 21.10 mg/dL (0.00-1.30) H 03/12/20 13:21 Total Protein 9.0 g/dL (6.3-8.2) H 03/12/20 13:21 Albumin 2.4 g/dL (3.9-5) L 03/12/20 13:21 Albumin/Globulin Ratio 0.4 % 03/12/20 13:21 Triglycerides 88 mg/dL (2-149) 03/12/20 13:21 Cholesterol 128 mg/dL (50-199) 03/12/20 13:21 LDL Cholesterol Direct 85 mg/dL (50-130) 03/12/20 13:21 HDL Cholesterol 30 mg/dL (40-59) L 03/12/20 13:21 Cholesterol/HDL Ratio 4.26 % 03/12/20 13:21 Urine Color Yellow (Yellow) 03/12/20 18:21 Urine Turbidity Cloudy (Clear) 03/12/20 18: Urine pH 6.0 (5.0-7.0) 03/12/20 18:21 Ur Specific [place] 1.018 (1.003-1.030) 03/12/20 18:21 Urine Protein 30 mg/dl mg/dL (Negative) 03/12/20 18: Urine Glucose (UA) Neg mg/dL (Negative) 03/12/20 18:21 Urine Ketones 20 mg/dL (Negative) 03/12/20 18:21 Urine Blood Neg (Negative) 03/12/20 18:21 Urine Nitrite Neg (Negative) 03/12/20 18:21 Urine Bilirubin Neg (Negative) 03/12/20 18:21 Urine Urobilinogen < 2.0 mg/dL (<2.0) 03/12/20 18:21 Ur Leukocyte Esterase Lg (Negative) 03/12/20 18:21 Urine WBC (Auto) > 182.0 /HPF (0.0-6.0) H 03/12/20 18:21 Urine RBC (Auto) 42.0 /HPF (0.0-6.0) 03/12/20 18:21 U Epithel Cells (Auto) 8.0 /HPF (0-13.0) 03/12/20 18:21 Urine WBC Clumps 2+ /HPF 03/12/20 18:21 Urine Mucus Few /HPF 03/12/20 18:21 Urine Creatinine 94.0 mg/dL (0.1-20.0) H 03/12/20 18:21 Urine Microalbumin 19.4 mg/dL (0.1-34.0) 03/12/20 18:21 Microalb/Creat Ratio 206.3 ug/mg 03/12/20 18:21 Blood Type A POSITIVE 03/12/20 16:23 Antibody Screen Negative 03/12/20 16:23 Crossmatch See Detail 03/12/20 16:23 Microbiology: Microbiology 03/12/20 13:21 Peripheral/Venous Blood Culture - Preliminary Sanchez/IV: Voiding Method Bedpan IV Catheter Type [Left Hand] Peripheral IV IV Catheter Type [Left INT / Saline Lock Antecubital] Active Medications - Current Medications Current Medications: Generic Name Dose Route Start Last Admin Trade Name Freq PRN Reason Stop Dose Admin Acetaminophen 650 mg 03/12/20 10:23 Tylenol PO Q4H PRN Pain MILD(1-3)/Fever >100.5/SMITH Al Hydrox/Mg Hydrox/Simethicone 30 ml 03/12/20 10:23 Alum-Mag Hydrox-Simeth [id number]/5ml PO Q4H PRN Indigestion Albuterol 2.5 mg 03/12/20 10:22 Proventil IH Q4H PRN Shortness Of Breath Dextrose 50 ml 03/12/20 10:26 D50w (25gm) Syringe IV Q30MIN PRN Hypoglycemia Protocol Famotidine 20 mg 03/12/20 22:00 03/13/20 21:29 Pepcid PO 20 mg BID AMIRA Administration Heparin Sodium (Porcine) 5,000 unit 03/12/20 22:00 03/13/20 21:29 Heparin SUB-Q 5,000 unit Q12HR AMIRA Administration Hydralazine HCl 10 mg 03/12/20 14:00 03/13/20 21:29 Apresoline PO 10 mg Q8HR AMIRA Administration Cefazolin Sodium 2 gm/ Sodium 100 mls @ 100 mls/hr 03/12/20 15:00 03/13/20 21:36 Chloride IV Not Given Q8HR AMIRA Vancomycin HCl 1,250 mg/ 275 mls @ 166.667 mls/hr 03/13/20 06:00 Sodium Chloride IV Q12H AMIRA Sodium Chloride 1,000 mls @ 75 mls/hr 03/12/20 15:30 03/12/20 15:48 Nacl 0.9% 1000 Ml IV 75 mls/hr DIRECT AMIRA Administration Insulin Human Isoph/Insulin Regular 30 unit 03/12/20 17:00 03/12/20 17:56 Humulin 70/30 SUB-Q 30 unit BIDDIAB AMIRA Administration Insulin Human Regular 0 unit 03/12/20 11:30 03/13/20 21:30 Humulin R SUB-Q 3 unit ACHS AMIRA Administration Protocol Ondansetron HCl 4 mg 03/12/20 10:23 Zofran IV Q8H PRN Nausea And Vomiting Oxycodone/Acetaminophen 1 tab 03/12/20 10:23 03/12/20 14:29 Percocet 5/325 PO 1 tab Q6H PRN Administration Pain, Moderate (4-6) Senna 8.6 mg 03/12/20 22:00 03/13/20 21:30 Senokot PO 8.6 mg Q12HR AMIRA Administration Sodium Chloride 10 ml 03/12/20 11:00 03/13/20 21:30 Sodium Chloride Flush Syringe 10 Ml IV 10 ml BID AMIRA Administration Sodium Chloride 10 ml 03/12/20 10:23 Sodium Chloride Flush Syringe 10 Ml IV PRN PRN LINE FLUSH
[2020-03-13] MEDS: oxyCODONE /ACETAMINOPHEN 5-325MG TAB PO PRN (23:54)
[2020-03-14] MEDS ORDERED: hydrALAZINE 20 MG/1 ML INJ IV ONE (04:15)
[2020-03-14] MEDS: VANCOMYCIN 1,250 MG in SODIUM CHLORIDE 0.9% 250ML 250 ML IV SCH (05:16)
[2020-03-14] MEDS: hydrALAZINE 10 MG TAB PO SCH (05:18)
[2020-03-14] MEDS: INSULIN REGULAR, HUMAN 100 UNIT/ML 3ML VIAL SUB-Q SCH ×4 (07:30→22:24)
[2020-03-14] MEDS: INSULIN NPH/REGULAR 70/30 INJ SUB-Q SCH (08:00)
[2020-03-14] MEDS ORDERED: hydrALAZINE 10 MG TAB PO SCH (09:39)
--- NOTE | 2020-03-14 09:58 | Progress Note ---
Assessment and Plan Assessment and plan: This is a 50-year-old female with diabetes, septic arthritis, hypertension who was a direct admit from [facility] who presents with a pyogenic arthritis of the right knee. Patient had 2 weeks of swelling and pain described as aching and stabbing to her right knee rated a 6/10 without any relieving factors but worsens with movement. Patient also endorses subjective fevers for the past week. Of note patient was recently hospitalized 12/23-01/03 with MSSA right knee septic arthritis and she was discharged with IV antibiotics. She states her right knee swelling never completely resolved post antibiotics. She states she fell down on her right hip and knee 2 days ago which aggravated the swelling and pain. Patient endorses a 7 pound weight loss within the past 2 weeks. She denies chest pain, cough, hemoptysis, chills, nausea or vomiting. Patient denies any sick contacts or recent exposure to known COVID-19. Patient denies any chest pain, shortness of breath, diarrhea or loss of taste/smell. Patient states her right knee was aspirated yesterday at [facility] and records were requested. Infectious disease and orthopedics were consulted. 03/12 CBC, CMP, CRP, ESR, UA and BC x2 pending. Advance care planning conducted at bedside. Prior visit reviewed. Patient was treated with cefazolin 2 g IV q 8 hour daily 4 weeks until 01/25/2020. Patient is non complaint, did not show to the infusion center for some of her PICC line dressing changes. Per ID Noncompliant: Patient missed several appointments for PICC line dressing changes and follow-up with infectious diseases. -XRAY 03/12 right knee xr shows Diffuse soft tissue swelling and margot large joint effusion has increased since the previous exam. Cortical irregularity has developed in the lateral tibial plateau concerning for fracture or bony destruction. Moderate degenerative changes are noted throughout the knee which appear increased in the lateral compartment since the previous exam. Consider further evaluation with MRI with and without contrast. 03/13: Clinical stable, awaiting Surgical intervention, continue abx and pain control. 03/14: MRI today, Awaiting records from [facility] knee aspiration and studies with cultures as well as blood cultures, Start vancomycin IV with PK consult, Start cefazolin 2 g IV every 8 hours, Await todays labs and monitor H/H - Patient Problems (1) Sepsis Current Visit: No Status: Acute Qualifiers: Sepsis type: sepsis due to unspecified organism Sepsis acute organ dysfunction status: unspecified Qualified Code(s): A41.9 - Sepsis, unspecified organism Plan to address problem: Present on admission with tachycardia and leukocytosis, fever at home; likely secondary to recurrent right knee septic arthritis. 03/12 BC x2 03/12 UC Trend CBC Antibiotic therapy Obtain medical records from [facility] [place] for aspiration of synovial joint (2) Pyogenic arthritis Current Visit: Yes Status: Acute Qualifiers: Septic arthritis location: knee Laterality: right Plan to address problem: Presents with right knee swelling, erythema, tenderness for 2 weeks Was recently discharged from the hospital in December for a right septic knee and completed her course of antibiotics for MSSA 03/12 right knee xr shows diffuse soft tissue swelling and a very large joint effusion has increased since the previous exam. Cortical irregularity has developed in the lateral tibial plateau concerning for fracture or bony destruction. Moderate degenerative changes are noted throughout the knee which appear increased in the lateral compartment since the previous exam. Consider further evaluation with MRI with and without contrast. ID consulted Patient received an aspiration at OSH, records requested Orthopedics consulted 03/12 MRI of RLE pending Per ID: initial MSSA bacteremia in August 2019, recurrent MSSA bacteremia and MSSA right knee septic arthritis in December 2019; Patient was treated with cefazolin 2 g IV q 8 hour daily 4 weeks until 01/25/2020. Patient is non complaint, did not show to the infusion center for some of her PICC line dressing changes. Antibiotic therapy: Vancomycin and cefazolin 03/12 CRP 21 (3) Anemia Current Visit: Yes Status: Acute Plan to address problem: 03/12 H7H 6.8/22.3 Stat type and cross Transfuse 1 unit PRBC and obtain posttransfusion H&H Transfuse for hemoglobin less than 7 Trend CBC (4) Thrombocythemia Current Visit: Yes Status: Acute Plan to address problem: Admit platelets 564K Trend CBC Likely reactive in setting of sepsis secondary to septic knee arthritis (5) Leukocytosis Current Visit: Yes Status: Acute Plan to address problem: Admit leukocytosis 15.3 Trend CBC Antibiotic therapy (6) Hypertension Current Visit: Yes Status: Chronic Plan to address problem: Resume home regimen of hydralazine One-time dose of labetalol Blood pressure monitor per protocol (7) Diabetes mellitus Current Visit: Yes Status: Chronic Plan to address problem: Restarted home Lantus CC diet 03/12 hemoglobin A1c 7.9 SSI Accu-Cheks AC at bedtime Hypoglycemic protocol (8) Noncompliance with medication regimen Current Visit: No Status: Acute Plan to address problem: Patient states that she does not have a PCP Stressed importance of establishing care with a PCP and continuing medications for diabetes and high blood pressure Patient stated that she has been compliant with her insulin for her diabetes however she stopped taking her antihypertensive when she ran out CM consulted for social issues (9) DVT prophylaxis Current Visit: No Status: Acute Plan to address problem: Heparin subcu SCDs to bilateral lower extremities while in bed (10) Full code status Current Visit: Yes Status: Acute History Interval history: Patient seen and examined, no new complaints except knee pain 3/10 in intensity. Patient is going to MRI today. Hospitalist Physical - Physical exam Narrative exam: - Constitutional General appearance: Present: Resting comfortably this morning with no distress - EENT Eyes: Present: PERRL, EOM intact ENT: hearing intact, clear oral mucosa - Neck Neck: Present: supple, normal ROM - Respiratory Respiratory effort: normal Respiratory: bilateral: CTA - Cardiovascular Rhythm: regular Heart Sounds: Present: S1 & S2. Absent: systolic murmur, diastolic murmur - Extremities Extremities: no ischemia, pulses intact, pulses symmetrical Extremity abnormal: edema (To the right knee), erythema (To right knee), tenderness (To right knee) Peripheral Pulses: within normal limits - Abdominal General gastrointestinal: Present: soft, non-tender, non-distended, normal bowel sounds - Integumentary Integumentary: Present: warm, dry - Musculoskeletal Musculoskeletal: strength equal bilaterally - Psychiatric Psychiatric: appropriate mood/affect, memory intact, cooperative - Neurologic Neurologic: CNII-XII intact, no focal deficits, moves all extremities - Constitutional Vitals: Temp Pulse Resp BP Pulse Ox 98.3 F 96 H 16 189/94 94 03/14/20 03:26 03/14/20 03:26 03/14/20 03:26 03/14/20 03:26 03/14/20 09:04 General appearance: Present: mild distress HEART Score - HEART Score EKG: Normal Age: 45-65 Risk factors: 1-2 risk factors Troponin: < normal limit Results - Labs CBC & Chem 7: 03/12/20 16:17 03/12/20 13:21 Labs: Laboratory Last Values WBC 15.3 K/mm3 (4.5-11.0) H 03/12/20 13:21 RBC 3.32 M/mm3 (3.65-5.03) L 03/12/20 13:21 Hgb 7.1 gm/dl (10.1-14.3) L 03/12/20 16:17 Hct 22.7 % (30.3-42.9) L 03/12/20 16:17 MCV 67 fl (79-97) L 03/12/20 13:21 MCH 21 pg (28-32) L 03/12/20 13:21 MCHC 31 % (30-34) 03/12/20 13:21 RDW 18.2 % (13.2-15.2) H 03/12/20 13:21 Plt Count 564 K/mm3 (140-440) H 03/12/20 13:21 Lymph % (Auto) 17.3 % (13.4-35.0) 03/12/20 13:21 [place] % (Auto) 5.6 % (0.0-7.3) 03/12/20 13:21 Eos % (Auto) 0.6 % (0.0-4.3) 03/12/20 13:21 Baso % (Auto) 1.1 % (0.0-1.8) 03/12/20 13:21 Lymph # (Auto) 2.6 K/mm3 (1.2-5.4) 03/12/20 13:21 [place] # (Auto) 0.9 K/mm3 (0.0-0.8) H 03/12/20 13:21 Eos # (Auto) 0.1 K/mm3 (0.0-0.4) 03/12/20 13:21 Baso # (Auto) 0.2 K/mm3 (0.0-0.1) H 03/12/20 13:21 Seg Neutrophils % 75.4 % (40.0-70.0) H 03/12/20 13:21 Seg Neutrophils # 11.5 K/mm3 (1.8-7.7) H 03/12/20 13:21 ESR > 140.0 mm/Hr (0-20) 03/12/20 13:21 Sodium 130 mmol/L (137-145) L 03/12/20 13:21 Potassium 3.7 mmol/L (3.6-5.0) 03/12/20 13:21 Chloride 93.8 mmol/L (98-107) L 03/12/20 13:21 Carbon Dioxide 24 mmol/L (22-30) 03/12/20 13:21 Anion Gap 16 mmol/L 03/12/20 13:21 BUN 9 mg/dL (7-17) 03/12/20 13:21 Creatinine 0.6 mg/dL (0.6-1.2) 03/12/20 13:21 Estimated GFR > 60 ml/min 03/12/20 13:21 BUN/Creatinine Ratio 15 % 03/12/20 13:21 Glucose 215 mg/dL (65-100) H 03/12/20 13:21 POC Glucose 199 mg/dL (70-105) H 03/14/20 08:33 Hemoglobin A1c 7.9 % (4-6) H 03/12/20 13:21 Calcium 8.8 mg/dL (8.4-10.2) 03/12/20 13:21 Total Bilirubin 0.60 mg/dL (0.1-1.2) 03/12/20 13:21 AST 6 units/L (5-40) 03/12/20 13:21 ALT < 5 units/L (7-56) L 03/12/20 13:21 Alkaline Phosphatase 100 units/L (35-129) 03/12/20 13:21 C-Reactive Protein 21.10 mg/dL (0.00-1.30) H 03/12/20 13:21 Total Protein 9.0 g/dL (6.3-8.2) H 03/12/20 13:21 Albumin 2.4 g/dL (3.9-5) L 03/12/20 13:21 Albumin/Globulin Ratio 0.4 % 03/12/20 13:21 Triglycerides 88 mg/dL (2-149) 03/12/20 13:21 Cholesterol 128 mg/dL (50-199) 03/12/20 13:21 LDL Cholesterol Direct 85 mg/dL (50-130) 03/12/20 13:21 HDL Cholesterol 30 mg/dL (40-59) L 03/12/20 13:21 Cholesterol/HDL Ratio 4.26 % 03/12/20 13:21 Urine Color Yellow (Yellow) 03/12/20 18:21 Urine Turbidity Cloudy (Clear) 03/12/20 18:21 Urine pH 6.0 (5.0-7.0) 03/12/20 18:21 Ur Specific [place] 1.018 (1.003-1.030) 03/12/20 18:21 Urine Protein 30 mg/dl mg/dL (Negative) 03/12/20 18:21 Urine Glucose (UA) Neg mg/dL (Negative) 03/12/20 18:21 Urine Ketones 20 mg/dL (Negative) 03/12/20 18:21 Urine Blood Neg (Negative) 03/12/20 18:21 Urine Nitrite Neg (Negative) 03/12/20 18:21 Urine Bilirubin Neg (Negative) 03/12/20 18:21 Urine Urobilinogen < 2.0 mg/dL (<2.0) 03/12/20 18:21 Ur Leukocyte Esterase Lg (Negative) 03/12/20 18:21 Urine WBC (Auto) > 182.0 /HPF (0.0-6.0) H 03/12/20 18:21 Urine RBC (Auto) 42.0 /HPF (0.0-6.0) 03/12/20 18:21 U Epithel Cells (Auto) 8.0 /HPF (0-13.0) 03/12/20 18:21 Urine WBC Clumps 2+ /HPF 03/12/20 18:21 Urine Mucus Few /HPF 03/12/20 18:21 Urine Creatinine 94.0 mg/dL (0.1-20.0) H 03/12/20 18:21 Urine Microalbumin 19.4 mg/dL (0.1-34.0) 03/12/20 18:21 Microalb/Creat Ratio 206.3 ug/mg 03/12/20 18:21 Blood Type A POSITIVE 03/12/20 16:23 Antibody Screen Negative 03/12/20 16:23 Crossmatch See Detail 03/12/20 16:23 Microbiology: Microbiology 03/12/20 13:21 Peripheral/Venous Blood Culture - Preliminary Sanchez/IV: Voiding Method Bedpan IV Catheter Type [Left Hand] Peripheral IV IV Catheter Type [Left INT / Saline Lock Antecubital] Active Medications - Current Medications Current Medications: Generic Name Dose Route Start Last Admin Trade Name Freq PRN Reason Stop Dose Admin Acetaminophen 650 mg 03/12/20 10:23 Tylenol PO Q4H PRN Pain MILD(1-3)/Fever >100.5/SMITH Al Hydrox/Mg Hydrox/Simethicone 30 ml 03/12/20 10:23 Alum-Mag Hydrox-Simeth 902-306-75ig/5ml PO Q4H PRN Indigestion Albuterol 2.5 mg 03/12/20 10:22 Proventil IH Q4H PRN Shortness Of Breath Dextrose 50 ml 03/12/20 10:26 D50w (25gm) Syringe IV Q30MIN PRN Hypoglycemia Protocol Famotidine 20 mg 03/12/20 22:00 03/13/20 21:29 Pepcid PO 20 mg BID AMIRA Administration Heparin Sodium (Porcine) 5,000 unit 03/12/20 22:00 03/13/20 21:29 Heparin SUB-Q 5,000 unit Q12HR AMIRA Administration Hydralazine HCl 10 mg 03/14/20 12:00 Apresoline IV Q4HR PRN Hypertension Hydralazine HCl 50 mg 03/14/20 10:00 Apresoline PO Q8HR AMIRA Cefazolin Sodium 2 gm/ Sodium 100 mls @ 100 mls/hr 03/12/20 15:00 03/14/20 05:17 Chloride IV 100 mls/hr Q8HR AMIRA Administration Vancomycin HCl 1,250 mg/ 275 mls @ 166.667 mls/hr 03/13/20 06:00 03/14/20 05:16 Sodium Chloride IV 166.667 mls/hr Q12H AMIRA Administration Sodium Chloride 1,000 mls @ 75 mls/hr 03/12/20 15:30 03/12/20 15:48 Nacl 0.9% 1000 Ml IV 75 mls/hr DIRECT AMIRA Administration Insulin Human Isoph/Insulin Regular 30 unit 03/12/20 17:00 03/14/20 08:00 Humulin 70/30 SUB-Q Not Given BIDDIAB AMIRA Insulin Human Regular 0 unit 03/12/20 11:30 03/14/20 07:30 Humulin R SUB-Q Not Given ACHS AMIRA Protocol Ondansetron HCl 4 mg 03/12/20 10:23 Zofran IV Q8H PRN Nausea And Vomiting Oxycodone/Acetaminophen 1 tab 03/12/20 10:23 03/13/20 23:54 Percocet 5/325 PO 1 tab Q6H PRN Administration Pain, Moderate (4-6) Senna 8.6 mg 03/12/20 22:00 03/13/20 21:30 Senokot PO 8.6 mg Q12HR AMIRA Administration Sodium Chloride 10 ml 03/12/20 11:00 03/14/20 09:31 Sodium Chloride Flush Syringe 10 Ml IV 10 ml BID AMIRA Administration Sodium Chloride 10 ml 03/12/20 10:23 Sodium Chloride Flush Syringe 10 Ml IV PRN PRN LINE FLUSH
[2020-03-14] MEDS: SENNOSIDES 8.6 MG TAB PO SCH ×3 (10:00→23:30)
[2020-03-14] MEDS: HEPARIN 5,000 UNIT/1 ML VIAL SUB-Q SCH ×3 (10:00→22:18)
[2020-03-14] MEDS: FAMOTIDINE 20 MG TAB PO SCH ×4 (10:00→22:10)
[2020-03-14] MEDS: hydrALAZINE 25 MG TAB PO SCH ×3 (10:00→22:16)
--- NOTE | 2020-03-14 10:01 | Progress Note ---
Assessment and Plan Cultures: Blood cultures 03/12/2020 gram-positive cocci 1 out of 4 Assessment: 50 years old female with history of uncontrolled diabetes, osteoarthritis, initial MSSA bacteremia in August 2019, recurrent MSSA bacteremia and MSSA right knee septic arthritis in December 2019, well-known to infectious diseases service, admitted on 03/12/2020 due to recurrent right knee septic arthritis: #Sepsis: Present on admission with tachycardia and leukocytosis, fever at home; likely secondary to recurrent right knee septic arthritis +/- bacteremia. #Recurrent right knee septic arthritis: Apparently, she had a right knee aspiration at [facility] last night, results pending. In December 2019, patient had blood cultures positive for MSSA on 12/24/2019 knee aspiration demonstrated 54,000 WBCs with 97% neutrophils and negative crystals. Synovitic fluid on 12/24/2019 grew MSSA. Patient was evaluated by orthopedics. Patient was treated with cefazolin 2 g IV q 8 hour daily 4 weeks until 01/25/2020. Patient is non complaint, did not show to the infusion center for some of her PICC line dressing changes. ESR>140. CRP 21. #Gram-positive cocci bacteremia: 1 out of 4 bottles, recurrent MSSA bacteremia versus contaminant. #History of recurrent MSSA bacteremia: Initially in August 2019 underwent in 2019. #Noncompliant: Patient missed several appointments for PICC line dressing changes and follow-up with infectious diseases. #Uncontrolled diabetes: Not better. #Severe anemia: Per primary team. Recommendations: -Repeat blood cultures -Patient is going to the OR for arthroscopic examination, synovial biopsy and cultures per Dr. Franco -Obtain [facility] knee aspiration and studies with cultures as well as blood cultures -pending -Continue vancomycin IV with PK consult -Continue cefazolin 2 g IV every 8 hours Will follow. Elisa Mckay MD Infectious Diseases General Science Teacher [facility] [place] [facility] M [phone] O [phone] Subjective Date of service: 03/14/20 Principal diagnosis: Septic knee arthritis Interval history: Patient remains complaining of right knee pain 8 out of 10, feels some better, no fever. Objective - Exam Narrative Exam: General appearance: Alert in NAD Eyes: anicteric sclerae, moist conjunctivae; no lid-lag; PERRLA HENT: Atraumatic; oropharynx clear Lungs: CTA, with normal respiratory effort and no intercostal retractions CV: RRR no murmur Abdomen: Soft, non-tender; no masses or hepatosplenomegaly Extremities: Right knee edema, tenderness, heat Skin: No rash. Psych: Appropriate affect, alert and oriented to person, place and time. Neuro: alert and oriented x 3. Moving all extermities - Constitutional Vitals: Vital Signs Temp Pulse Resp BP Pulse Ox 98.3 F 96 H 16 189/94 94 03/14/20 03:26 03/14/20 03:26 03/14/20 03:26 03/14/20 03:26 03/14/20 09:04 Temperature -Last 24 Hours Temperature 98.3 F Temperature 97.8 F Temperature 98.0 F Temperature 99.6 F - Labs CBC & Chem 7: 03/12/20 16:17 03/12/20 13:21 Labs: Abnormal lab results 03/13/20 03/13/20 03/13/20 Range/Units 08:59 13:28 18:17 POC Glucose 181 H 233 H 171 H (70-105) mg/dL 03/13/20 03/14/20 Range/Units 21:23 08:33 POC Glucose 209 H 199 H (70-105) mg/dL
[2020-03-14] MEDS ORDERED: hydrALAZINE 20 MG/1 ML INJ IV PRN (12:00)
--- NOTE | 2020-03-14 13:23 | Magnetic Resonance Report ---
MRI RIGHT KNEE WITHOUT CONTRAST INDICATION / CLINICAL INFORMATION: Right knee infection and pain. TECHNIQUE: Multiplanar, multisequence MR images were obtained. No contrast used. COMPARISON: Radiographs dated 03/12/2020 and 12/24/2019 FINDINGS: ACL: Intact with increased signal. PCL: No significant abnormality. DISTAL QUADRICEPS TENDON: No significant abnormality. PATELLAR TENDON: No significant abnormality. MEDIAL MENISCUS: Degenerative tear of the posterior root with diffuse meniscal degeneration. LATERAL MENISCUS: Diffuse meniscal degeneration. POSTEROLATERAL CORNER: No significant abnormality. MCL: No significant abnormality. LCL: No significant abnormality. DISTAL IT BAND: No significant abnormality. PATELLOFEMORAL ALIGNMENT: No significant abnormality. ARTICULAR CARTILAGE: Extensive chondrosis with areas of cartilage destruction, especially in the late ral compartment but involving all compartments. JOINT SPACE: Very large, complex joint effusion with probable septic arthritis. No significant poplit eal cyst. No intra-articular bodies. BONES: Moderately extensive subchondral bone marrow edema on both sides of femorotibial joint. Areas of low T1, high T2 signal adjacent to articular cartilage destruction could potentially represent ost eomyelitis. No fracture. No osseous lesion. SOFT TISSUES: Moderately extensive, circumferential subcutaneous soft tissue edema. No soft tissue ab scess. ADDITIONAL FINDINGS: None. IMPRESSION: 1. Very large, complex joint effusion with areas of osteochondral irregularity and destruction likely representing right knee septic arthritis and possible associated osteomyelitis. 2. Joint aspiration could be performed to confirm the diagnosis. Signer Name: Shannon Ramos MD Signed: 03/14/2020 1:18 PM Workstation Name: [id number]
[2020-03-14] MEDS: MORPHINE 2 MG/1 ML INJ IV SCH ×2 (13:37→22:45)
[2020-03-14] MEDS ORDERED: methylPREDNISolone ACETATE 40 MG/1 ML INJ ONE (17:17)
[2020-03-14] MEDS ORDERED: BUPIVACAINE-EPINEPHRINE/PF 0.5%-1:200,000 (10 ML) VIAL INFILTRATI ONE (17:18)
[2020-03-14] MEDS ORDERED: propofoL 200 MG/20 ML VIAL IV ONE (17:26)
[2020-03-14] MEDS ORDERED: MIDAZOLAM 2 MG/2 ML INJ ONE (17:27)
[2020-03-14] MEDS ORDERED: fentaNYL 100 MCG/2 ML INJ ONE (17:35)
[2020-03-14] MEDS ORDERED: ONDANSETRON 4 MG/2 ML INJ ONE (18:21)
[2020-03-14] MEDS ORDERED: KETOROLAC 30 MG/1 ML INJ ONE (18:21)
[2020-03-14] MEDS ORDERED: METOCLOPRAMIDE 10 MG/2 ML INJ ONE (18:21)
--- NOTE | 2020-03-14 18:34 | Anesthesia Consultation ---
Anesthesia Consult and Med Hx Date of service: 03/14/20 - Airway Anesthetic Teeth Evaluation: Poor ROM Head & Neck: Adequate Mental/Hyoid Distance: Adequate Mallampati Class: Class III Intubation Access Assessment: Possibly Difficult - Pulmonary Exam CTA: Yes - Cardiac Exam Cardiac Exam: RRR - Pre-Operative Health Status ASA Pre-Surgery Classification: ASA3 Proposed Anesthetic Plan: General - Pulmonary Hx Respiratory Symptoms: No - Cardiovascular System Hx Hypertension: Yes (poorly controlled this admission) - Central Nervous System CVA: No - Gastrointestinal Hx Gastroesophageal Reflux Disease: No - Endocrine Hx Renal Disease: No Hx Liver Disease: No Hx Insulin Dependent Diabetes: Yes (A1c 7.9) Hx Thyroid Disease: No - Hematic Hx Anemia: Yes - Other Systems Hx Obesity: No
--- NOTE | 2020-03-14 18:34 | Anesthesia Day of Surgery ---
Anesthesia Day of Surgery - Day of Surgery Patient Examined: Yes Patient H&P Reviewed: Yes Patient is NPO: Yes
--- NOTE | 2020-03-14 18:37 | Procedure Note ---
Date of procedure: 03/14/20 Pre-op diagnosis: Infected right knee Post-op diagnosis: same Procedure: Arthroscopy right knee with irrigation and debridement Procedure The patient was brought to the OR and placed on the OR table in supine position following induction and intubation anesthesia the patient's right lower extremity was prepped and draped in the usual sterile manner. A timeout procedure was done to identify the patient and the correct operative site. The leg was exsanguinated followed by inflation of the pneumatic tourniquet to 300 mmHg routine arthroscopic portals were made following introduction of the arthroscope and insufflation of the knee joint with saline solution examination revealed patient to have abundant synovial hyperplasia or thickening with no evidence of malignancy in addition patient is also noted to have chondromalacic changes involving the articular cartilage with fissuring noted tissue samples as well as wound cultures were obtained the knee joint was then copiously irrigated with 6 L of normal saline following following this the stab wounds were repaired routine postop dressings were applied the patient tolerated the procedure there were no complications Anesthesia: GETA Surgeon: VINNY LACY Estimated blood loss: minimal Pathology: list (Synovial tissue as well as fluid were sent to microbiology) Specimen disposition: to lab Condition: stable Disposition: PACU
[2020-03-14] MEDS ORDERED: ONDANSETRON 4 MG/2 ML INJ IV PRN (18:45)
[2020-03-14] MEDS ORDERED: SODIUM CHLORIDE 0.9% IRRIG SOLN 3000 ML IR ONE (18:47)
[2020-03-14] MEDS ORDERED: SODIUM CHLORIDE 0.9% IRR 1,500 ML BOTTLE IR ONE (18:47)
[2020-03-14] MEDS ORDERED: HYDROmorphone 1 MG/1 ML INJ ONE (19:16)
[2020-03-14] MEDS ORDERED: hydrALAZINE 20 MG/1 ML INJ ONE (19:17)
[2020-03-14] MEDS: HYDROmorphone 1 MG/1 ML INJ IV PRN ×2 (19:20→19:32)
[2020-03-14] MEDS: oxyCODONE /ACETAMINOPHEN 5-325MG TAB PO PRN (22:10)
[2020-03-15] MEDS: VANCOMYCIN 1,250 MG in SODIUM CHLORIDE 0.9% 250ML 250 ML IV SCH ×2 (05:05→18:00)
[2020-03-15] MEDS: hydrALAZINE 25 MG TAB PO SCH ×3 (05:21→21:01)
[2020-03-15] MEDS: MORPHINE 2 MG/1 ML INJ IV SCH ×4 (05:25→19:40)
[2020-03-15 06:19] LABS: Hematocrit 22.3 % (30.3-42.9); Hemoglobin 6.8 gm/dl (10.1-14.3); Mean Corpuscular HGB Conc 31 % (30-34); Platelet Count 499 K/mm3 (140-440); Red Blood Count 3.28 M/mm3 (3.65-5.03)
[2020-03-15 06:20] LABS: Mean Corpuscular Volume 68 fl (79-97); Red Cell Distribution Width 20.1 % (13.2-15.2)
[2020-03-15 06:40] LABS: BUN/Creatinine Ratio 15; Blood Urea Nitrogen 15 mg/dL (7-17); Calcium 8.2 mg/dL (8.4-10.2); Hemolysis Index 8
[2020-03-15] MEDS: INSULIN REGULAR, HUMAN 100 UNIT/ML 3ML VIAL SUB-Q SCH ×5 (08:12→22:24)
--- NOTE | 2020-03-15 09:11 | Progress Note ---
Assessment and Plan Cultures: Blood cultures 03/12/2020 Staph aureus 1 out of 4 Assessment: 50 years old female with history of uncontrolled diabetes, osteoarthritis, initial MSSA bacteremia in August 2019, recurrent MSSA bacteremia and MSSA right knee septic arthritis in December 2019, well-known to infectious diseases service, admitted on 03/12/2020 due to recurrent right knee septic arthritis: #Sepsis: Present on admission with tachycardia and leukocytosis, fever at home; likely secondary to recurrent right knee septic arthritis +/- bacteremia. #Recurrent right knee septic arthritis: Apparently, she had a right knee aspiration at [facility] last night, results pending. In December 2019, patient had blo od cultures positive for MSSA on 12/24/2019 knee aspiration demonstrated 54,000 WBCs with 97% neutrophils and negative crystals. Synovitic fluid on 12/24/2019 grew MSSA. Patient was evaluated by orthopedics. Patient was treated with cefazolin 2 g IV q 8 hour daily 4 weeks until 01/25/2020. Patient is non complaint, did not show to the infusion center for some of her PICC line dressing changes. ESR>140. CRP 21. S/P OR arthroscopy right knee with irrigation and debridement on 03/14/2020, OR findings - abundant synovial hyperplasia or thickening with no evidence of malignancy in addition patient is also noted to have chondromalacic changes involving the articular cartilage with fissuring noted tissue samples as well as wound cultures were obtained the knee joint. #Staph aureus bacteremia: 1 out of 4 bottles, likely recurrent MSSA bacteremia from knee infection. #History of recurrent MSSA bacteremia: Initially in August 2019 underwent in December 2019. #Noncompliant: Patient missed several appointments for PICC line dressing changes and follow-up with infectious diseases. #Uncontrolled diabetes: Not better. #Severe anemia: Per primary team. Recommendations: -Obtain TTE -F/u Repeat blood cultures -F/u Initial blood culture ID and MICs -F/u OR cultures and path -Continue vancomycin IV with PK consult -Continue cefazolin 2 g IV every 8 hours Will follow. Elisa Mckay MD Infectious Diseases [facility] ([facility]) M [phone] O [phone] Subjective Date of service: 03/15/20 Principal diagnosis: Septic knee arthritis Interval history: Patient feels good, went to the OR yesterday, no fever. Objective - Exam Narrative Exam: General appearance: Alert in NAD Eyes: anicteric sclerae, moist conjunctivae; no lid-lag; PERRLA HENT: Atraumatic; oropharynx clear Lungs: CTA, with normal respiratory effort and no intercostal retractions CV: RRR no murmur Abdomen: Soft, non-tender; no masses or hepatosplenomegaly Extremities: Right knee with surgical dressings Skin: No rash. Psych: Appropriate affect, alert and oriented to person, place and time. Neuro: alert and oriented x 3. Moving all extermities - Constitutional Vitals: Vital Signs Temp Pulse Resp BP Pulse Ox 98.3 F 105 H 18 121/70 100 03/14/20 20:53 03/15/20 05:21 03/14/20 22:00 03/15/20 05:21 03/14/20 22:00 Temperature -Last 24 Hours Temperature 98.3 F Temperature 98.9 F Temperature 98.3 F Temperature 99.7 F Temperature 98.8 F - Labs CBC & Chem 7: 03/15/20 06:07 03/15/20 06:07 Labs: Abnormal lab results 03/12/20 03/14/20 03/14/20 Range/Units 16:23 12:21 16:24 WBC (4.5-11.0) K/mm3 RBC (3.65-5.03) M/mm3 Hgb (10.1-14.3) gm/dl Hct (30.3-42.9) % MCV (79-97) fl MCH (28-32) pg RDW (13.2-15.2) % Plt Count (140-440) K/mm3 Sodium (137-145) mmol/L Chloride (98-107) mmol/L Carbon Dioxide (22-30) mmol/L Glucose (65-100) mg/dL POC Glucose 209 H 206 H (70-105) mg/dL Calcium (8.4-10.2) mg/dL Crossmatch See Detail 03/14/20 03/14/20 03/15/20 Range/Units 19:37 21:12 06:07 WBC 12.9 H (4.5-11.0) K/mm3 RBC 3.28 L (3.65-5.03) M/mm3 Hgb 6.8 L (10.1-14.3) gm/dl Hct 22.3 L (30.3-42.9) % MCV 68 L (79-97) fl MCH 21 L (28-32) pg RDW 20.1 H (13.2-15.2) % Plt Count 499 H (140-440) K/mm3 Sodium (137-145) mmol/L Chloride (98-107) mmol/L Carbon Dioxide (22-30) mmol/L Glucose (65-100) mg/dL POC Glucose 202 H 196 H (70-105) mg/dL Calcium (8.4-10.2) mg/dL Crossmatch 03/15/20 03/15/20 Range/Units 06:07 08:27 WBC (4.5-11.0) K/mm3 RBC (3.65-5.03) M/mm3 Hgb (10.1-14.3) gm/dl Hct (30.3-42.9) % MCV (79-97) fl MCH (28-32) pg RDW (13.2-15.2) % Plt Count (140-440) K/mm3 Sodium 132 L (137-145) mmol/L Chloride 96.7 L (98-107) mmol/L Carbon Dioxide 21 L (22-30) mmol/L Glucose 225 H (65-100) mg/dL POC Glucose 220 H (70-105) mg/dL Calcium 8.2 L (8.4-10.2) mg/dL Crossmatch
[2020-03-15] MEDS: INSULIN NPH/REGULAR 70/30 INJ SUB-Q SCH ×3 (09:28→20:42)
[2020-03-15] MEDS: HEPARIN 5,000 UNIT/1 ML VIAL SUB-Q SCH ×2 (11:28→21:03)
[2020-03-15] MEDS: FAMOTIDINE 20 MG TAB PO SCH ×2 (11:28→21:01)
[2020-03-15] MEDS: SENNOSIDES 8.6 MG TAB PO SCH ×2 (11:29→21:01)
[2020-03-15] MEDS: MORPHINE 4 MG/1 ML INJ IV PRN (11:30)
[2020-03-15] MEDS: oxyCODONE /ACETAMINOPHEN 5-325MG TAB PO PRN ×2 (12:30→20:56)
[2020-03-15] MEDS ORDERED: SODIUM CHLORIDE 0.9% 500 ML 500 ML IV NR (14:55)
--- NOTE | 2020-03-15 15:00 | Progress Note ---
Assessment and Plan Assessment and plan: This is a 50-year-old female with diabetes, septic arthritis, hypertension who was a direct admit from [facility] who presents with a pyogenic arthritis of the right knee. Patient had 2 weeks of swelling and pain described as aching and stabbing to her right knee rated a 6/10 without any relieving factors but worsens with movement. Patient also endorses subjective fevers for the past week. Of note patient was recently hospitalized 12/23-01/03 with MSSA right knee septic arthritis and she was discharged with IV antibiotics. She states her right knee swelling never completely resolved post antibiotics. She states she fell down on her right hip and knee 2 days ago which aggravated the swelling and pain. Patient endorses a 7 pound weight loss within the past 2 weeks. She denies chest pain, cough, hemoptysis, chills, nausea or vomiting. Patient denies any sick contacts or recent exposure to known COVID-19. Patient denies any chest pain, shortness of breath, diarrhea or loss of taste/smell. Patient states her right knee was aspirated yesterday at [facility] and records were requested. Infectious disease and orthopedics were consulted. 03/12 CBC, CMP, CRP, ESR, UA and BC x2 pending. Advance care planning conducted at bedside. Prior visit reviewed. Patient was treated with cefazolin 2 g IV q 8 hour daily 4 weeks until 01/25/2020. Patient is non complaint, did not show to the infusion center for some of her PICC line dressing changes. Per ID Noncompliant: Patient missed several appointments for PICC line dressing changes and follow-up with infectious diseases. -XRAY 03/12 right knee xr shows Diffuse soft tissue swelling and margot large joint effusion has increased since the previous exam. Cortical irregularity has developed in the lateral tibial plateau concerning for fracture or bony destruction. Moderate degenerative changes are noted throughout the knee which appear increased in the lateral compartment since the previous exam. Consider further evaluation with MRI with and without contrast. 03/13: Clinical stable, awaiting Surgical intervention, continue abx and pain control. 03/14: MRI today, Awaiting records from [facility] knee aspiration and studies with cultures as well as blood cultures, Start vancomycin IV with PK consult, Start cefazolin 2 g IV every 8 hours, Await todays labs and monitor H/H 03/15: Patient is status post arthroscopy of the knee. Awaiting cultures. Will need prolonged antibiotic therapy and ID will await for second culture to be negative for 48 hours and then will proceed with a PICC line - Patient Problems (1) Sepsis Current Visit: No Status: Acute Qualifiers: Sepsis type: sepsis due to unspecified organism Sepsis acute organ dysf unction status: unspecified Qualified Code(s): A41.9 - Sepsis, unspecified organism Plan to address problem: Present on admission with tachycardia and leukocytosis, fever at home; likely secondary to recurrent right knee septic arthritis. 03/12 BC x2 03/12 UC Trend CBC Antibiotic therapy Obtain medical records from [facility] for aspiration of synovial joint (2) Pyogenic arthritis Current Visit: Yes Status: Acute Qualifiers: Septic arthritis location: knee Laterality: right Plan to address problem: Presents with right knee swelling, erythema, tenderness for 2 weeks Was recently discharged from the hospital in December for a right septic knee and completed her course of antibiotics for MSSA 03/12 right knee xr shows diffuse soft tissue swelling and a very large joint effusion has increased since the previous exam. Cortical irregularity has developed in the lateral tibial plateau concerning for fracture or bony destruction. Moderate degenerative changes are noted throughout the knee which appear increased in the lateral compartment since the previous exam. Consider further evaluation with MRI with and without contrast. ID consulted Patient received an aspiration at OSH, records requested Orthopedics consulted 03/12 MRI of RLE pending Per ID: initial MSSA bacteremia in August 2019, recurrent MSSA bacteremia and MSSA right knee septic arthritis in December 2019; Patient was treated with cefazolin 2 g IV q 8 hour daily 4 weeks until 01/25/2020. Patient is non complaint, did not show to the infusion center for some of her PICC line dressing changes. Antibiotic therapy: Vancomycin and cefazolin 03/12 CRP 21 (3) Anemia Current Visit: Yes Status: Acute Plan to address problem: 03/12 H7H 6.8/22.3 Stat type and cross Transfuse 1 unit PRBC and obtain posttransfusion H&H Transfuse for hemoglobin less than 7 Trend CBC (4) Thrombocythemia Current Visit: Yes Status: Acute Plan to address problem: Admit platelets 564K Trend CBC Likely reactive in setting of sepsis secondary to septic knee arthritis (5) Leukocytosis Current Visit: Yes Status: Acute Plan to address problem: Admit leukocytosis 15.3 Trend CBC Antibiotic therapy (6) Hypertension Current Visit: Yes Status: Chronic Plan to address problem: Resume home regimen of hydralazine One-time dose of labetalol Blood pressure monitor per protocol (7) Diabetes mellitus Current Visit: Yes Status: Chronic Plan to address problem: Restarted home Lantus CC diet 03/12 hemoglobin A1c 7.9 SSI Accu-Cheks AC at bedtime Hypoglycemic protocol (8) Noncompliance with medication regimen Current Visit: No Status: Acute Plan to address problem: Patient states that she does not have a PCP Stressed importance of establishing care with a PCP and continuing medications for diabetes and high blood pressure Patient stated that she has been compliant with her insulin for her diabetes however she stopped taking her antihypertensive when she ran out CM consulted for social issues (9) DVT prophylaxis Current Visit: No Status: Acute Plan to address problem: Heparin subcu SCDs to bilateral lower extremities while in bed (10) Full code status Current Visit: Yes Status: Acute History Interval history: Patient seen and examined, no new complaints except knee pain status post arthroscopy of the knee last night Hospitalist Physical - Physical exam Narrative exam: - Constitutional General appearance: Present: Resting comfortably this morning with no distress - EENT Eyes: Present: PERRL, EOM intact ENT: hearing intact, clear oral mucosa - Neck Neck: Present: supple, normal ROM - Respiratory Respiratory effort: normal Respiratory: bilateral: CTA - Cardiovascular Rhythm: regular Heart Sounds: Present: S1 & S2. Absent: systolic murmur, diastolic murmur - Extremities Extremities: no ischemia, pulses intact, pulses symmetrical Extremity abnormal: edema (To the right knee), erythema (To right knee), tenderness (To right knee) Peripheral Pulses: within normal limits - Abdominal General gastrointestinal: Present: soft, non-tender, non-distended, normal bowel sounds - Integumentary Integumentary: Present: warm, dry - Musculoskeletal Musculoskeletal: strength equal bilaterally - Psychiatric Psychiatric: appropriate mood/affect, memory intact, cooperative - Neurologic Neurologic: CNII-XII intact, no focal deficits, moves all extremities - Constitutional Vitals: Temp Pulse Resp BP Pulse Ox 98.4 F 103 H 20 126/69 93 03/15/20 11:55 03/15/20 11:55 03/15/20 11:55 03/15/20 11:55 03/15/20 11:55 General appearance: Present: mild distress HEART Score - HEART Score EKG: Normal Age: 45-65 Risk factors: 1-2 risk factors Troponin: < normal limit Results - Labs CBC & Chem 7: 03/15/20 06:07 03/15/20 06:07 Labs: Laboratory Last Values WBC 12.9 K/mm3 (4.5-11.0) H 03/15/20 06:07 RBC 3.28 M/mm3 (3.65-5.03) L 03/15/20 06:07 Hgb 6.8 gm/dl (10.1-14.3) L 03/15/20 06:07 Hct 22.3 % (30.3-42.9) L 03/15/20 06:07 MCV 68 fl (79-97) L 03/15/20 06:07 MCH 21 pg (28-32) L 03/15/20 06:07 MCHC 31 % (30-34) 03/15/20 06:07 RDW 20.1 % (13.2-15.2) H 03/15/20 06:07 Plt Count 499 K/mm3 (140-440) H 03/15/20 06:07 Lymph % (Auto) 17.3 % (13.4-35.0) 03/12/20 13:21 [place] % (Auto) 5.6 % (0.0-7.3) 03/12/20 13:21 Eos % (Auto) 0.6 % (0.0-4.3) 03/12/20 13:21 Baso % (Auto) 1.1 % (0.0-1.8) 03/12/20 13:21 Lymph # (Auto) 2.6 K/mm3 (1.2-5.4) 03/12/20 13:21 [place] # (Auto) 0.9 K/mm3 (0.0-0.8) H 03/12/20 13:21 Eos # (Auto) 0.1 K/mm3 (0.0-0.4) 03/12/20 13:21 Baso # (Auto) 0.2 K/mm3 (0.0-0.1) H 03/12/20 13:21 Seg Neutrophils % 75.4 % (40.0-70.0) H 03/12/20 13:21 Seg Neutrophils # 11.5 K/mm3 (1.8-7.7) H 03/12/20 13:21 ESR > 140.0 mm/Hr (0-20) 03/12/20 13:21 Sodium 132 mmol/L (137-145) L 03/15/20 06:07 Potassium 3.7 mmol/L (3.6-5.0) 03/15/20 06:07 Chloride 96.7 mmol/L (98-107) L 03/15/20 06:07 Carbon Dioxide 21 mmol/L (22-30) L 03/15/20 06:07 Anion Gap 18 mmol/L 03/15/20 06:07 BUN 15 mg/dL (7-17) 03/15/20 06:07 Creatinine 1.0 mg/dL (0.6-1.2) D 03/15/20 06:07 Estimated GFR > 60 ml/min 03/15/20 06:07 BUN/Creatinine Ratio 15 % 03/15/20 06:07 Glucose 225 mg/dL (65-100) H 03/15/20 06:07 POC Glucose 312 mg/dL (70-105) H 03/15/20 12:09 Hemoglobin A1c 7.9 % (4-6) H 03/12/20 13:21 Calcium 8.2 mg/dL (8.4-10.2) L 03/15/20 06:07 Total Bilirubin 0.60 mg/dL (0.1-1.2) 03/12/20 13:21 AST 6 units/L (5-40) 03/12/20 13:21 ALT < 5 units/L (7-56) L 03/12/20 13:21 Alkaline Phosphatase 100 units/L (35-129) 03/12/20 13:21 C-Reactive Protein 21.10 mg/dL (0.00-1.30) H 03/12/20 13:21 Total Protein 9.0 g/dL (6.3-8.2) H 03/12/20 13:21 Albumin 2.4 g/dL (3.9-5) L 03/12/20 13:21 Albumin/Globulin Ratio 0.4 % 03/12/20 13:21 Triglycerides 88 mg/dL (2-149) 03/12/20 13:21 Cholesterol 128 mg/dL (50-199) 03/12/20 13:21 LDL Cholesterol Direct 85 mg/dL (50-130) 03/12/20 13:21 HDL Cholesterol 30 mg/dL (40-59) L 03/12/20 13:21 Cholesterol/HDL Ratio 4.26 % 03/12/20 13:21 Urine Color Yellow (Yellow) 03/12/20 18:21 Urine Turbidity Cloudy (Clear) 03/12/20 18:21 Urine pH 6.0 (5.0-7.0) 03/12/20 18:21 Ur Specific [place] 1.018 (1.003-1.030) 03/12/20 18:21 Urine Protein 30 mg/dl mg/dL (Negative) 03/12/20 18:21 Urine Glucose (UA) Neg mg/dL (Negative) 03/12/20 18: Urine Ketones 20 mg/dL (Negative) 03/12/20 18:21 Urine Blood Neg (Negative) 03/12/20 18:21 Urine Nitrite Neg (Negative) 03/12/20 18:21 Urine Bilirubin Neg (Negative) 03/12/20 18:21 Urine Urobilinogen < 2.0 mg/dL (<2.0) 03/12/20 18:21 Ur Leukocyte Esterase Lg (Negative) 03/12/20 18:21 Urine WBC (Auto) > 182.0 /HPF (0.0-6.0) H 03/12/20 18:21 Urine RBC (Auto) 42.0 /HPF (0.0-6.0) 03/12/20 18: U Epithel Cells (Auto) 8.0 /HPF (0-13.0) 03/12/20 18:21 Urine WBC Clumps 2+ /HPF 03/12/20 18:21 Urine Mucus Few /HPF 03/12/20 18:21 Urine Creatinine 94.0 mg/dL (0.1-20.0) H 03/12/20 18:21 Urine Microalbumin 19.4 mg/dL (0.1-34.0) 03/12/20 18:21 Microalb/Creat Ratio 206.3 ug/mg 03/12/20 18:21 Vancomycin Trough 18.7 ug/mL (5.0-20.0) 03/15/20 06:07 Blood Type A POSITIVE 03/12/20 16:23 Antibody Screen Negative 03/12/20 16:23 Crossmatch See Detail 03/12/20 16:23 Microbiology: Microbiology 03/12/20 13:21 Peripheral/Venous Blood Culture - Preliminary Staphylococcus Aureus 03/14/20 14:07 Peripheral/Venous Blood Culture - Preliminary NO GROWTH AFTER 24 HOURS 03/14/20 13:34 Peripheral/Venous Blood Culture - Preliminary NO GROWTH AFTER 24 HOURS 03/12/20 14:01 Peripheral/Venous Blood Culture - Preliminary NO GROWTH AFTER 72 HOURS Sanchez/IV: Voiding Method Bedpan IV Catheter Type [Left Forearm INT / Saline Lock ] IV Catheter Type [Right Hand] Peripheral IV IV Catheter Type [Left Hand] Peripheral IV IV Catheter Type [Left INT / Saline Lock Antecubital] Active Medications - Current Medications Current Medications: Generic Name Dose Route Start Last Admin Trade Name Freq PRN Reason Stop Dose Admin Acetaminophen 650 mg 03/12/20 10:23 Tylenol PO Q4H PRN Pain MILD(1-3)/Fever >100.5/SMITH Al Hydrox/Mg Hydrox/Simethicone 30 ml 03/12/20 10:23 Alum-Mag Hydrox-Simeth [id number]/5ml PO Q4H PRN Indigestion Albuterol 2.5 mg 03/12/20 10:22 Proventil IH Q4H PRN Shortness Of Breath Dextrose 50 ml 03/12/20 10:26 D50w (25gm) Syringe IV Q30MIN PRN Hypoglycemia Protocol Famotidine 20 mg 03/12/20 22:00 03/14/20 22:10 Pepcid PO Not Given BID AMIRA Heparin Sodium (Porcine) 5,000 unit 03/12/20 22:00 03/15/20 11:28 Heparin SUB-Q 5,000 unit Q12HR AMIRA Administration Hydralazine HCl 10 mg 03/14/20 12:00 03/14/20 19:29 Apresoline IV 10 mg Q4HR PRN Administration Hypertension Hydralazine HCl 50 mg 03/14/20 10:00 03/15/20 05:21 Apresoline PO 50 mg Q8HR AMIRA Administration Hydromorphone HCl 0.5 mg 03/14/20 18:45 03/14/20 19:32 Dilaudid IV 0.5 mg Q10MIN PRN Administration Pain , Severe (7-10) Cefazolin Sodium 2 gm/ Sodium 100 mls @ 100 mls/hr 03/12/20 15:00 03/15/20 05:17 Chloride IV 100 mls/hr Q8HR AMIRA Administration Vancomycin HCl 1,250 mg/ 275 mls @ 166.667 mls/hr 03/13/20 06:00 03/15/20 05:05 Sodium Chloride IV 166.667 mls/hr Q12H AMIRA Administration Sodium Chloride 1,000 mls @ 75 mls/hr 03/12/20 15:30 03/12/20 15:48 Nacl 0.9% 1000 Ml IV 75 mls/hr DIRECT AMIRA Administration Sodium Chloride 500 mls @ 0 mls/hr 03/15/20 14:55 Nacl 0.9% 500 Ml IV 03/15/20 14:56 ONCE ONE As Directed Insulin Human Isoph/Insulin Regular 30 unit 03/12/20 17:00 03/15/20 09:28 Humulin 70/30 SUB-Q 30 unit BIDDIAB AMIRA Administration Insulin Human Regular 0 unit 03/12/20 11:30 03/14/20 22:24 Humulin R SUB-Q 2 unit ACHS AMIRA Administration Protocol Morphine Sulfate 2 mg 03/14/20 13:00 03/15/20 05:25 Morphine IV Not Given Q6H [facility] Morphine Sulfate 4 mg 03/14/20 18:37 Morphine IV Q4H PRN Pain , Severe (7-10) Ondansetron HCl 4 mg 03/12/20 10:23 Zofran IV Q8H PRN Nausea And Vomiting Ondansetron HCl 4 mg 03/14/20 18:45 Zofran IV ONCE PRN Nausea And Vomiting Oxycodone/Acetaminophen 1 tab 03/12/20 10:23 03/14/20 22:10 Percocet 5/325 PO 1 tab Q6H PRN Administration Pain, Moderate (4-6) Oxycodone/Acetaminophen 1 tab 03/14/20 18:37 Percocet 5/325 PO Q6H PRN Pain, Moderate (4-6) Senna 8.6 mg 03/12/20 22:00 03/14/20 23:30 Senokot PO 8.6 mg Q12HR AMIRA Administration Sodium Chloride 10 ml 03/12/20 11:00 03/15/20 00:28 Sodium Chloride Flush Syringe 10 Ml IV 10 ml BID AMIRA Administration Sodium Chloride 10 ml 03/12/20 10:23 Sodium Chloride Flush Syringe 10 Ml IV PRN PRN LINE FLUSH Sodium Chloride 10 ml 03/14/20 19:00 Sodium Chloride Flush Syringe 10 Ml IV 03/15/20 18:59 PRN NR
[2020-03-15] MEDS: SODIUM CHLORIDE 0.9% 1000 ML 1,000 ML IV SCH (23:25)
[2020-03-16] MEDS: MORPHINE 2 MG/1 ML INJ IV SCH ×4 (01:05→19:02)
[2020-03-16 05:08] VITALS: BP 191/96
[2020-03-16] MEDS: hydrALAZINE 25 MG TAB PO SCH ×2 (05:24→15:08)
[2020-03-16] MEDS: MORPHINE 4 MG/1 ML INJ IV PRN (05:25)
[2020-03-16 06:17] LABS: Hematocrit 25.6 % (30.3-42.9); Hemoglobin 7.9 gm/dl (10.1-14.3); Mean Corpuscular HGB Conc 31 % (30-34); Mean Corpuscular Volume 71 fl (79-97); Platelet Count 509 K/mm3 (140-440)
[2020-03-16 06:19] LABS: Red Cell Distribution Width 21.4 % (13.2-15.2)
[2020-03-16 06:41] LABS: BUN/Creatinine Ratio 22; Blood Urea Nitrogen 20 mg/dL (7-17); Calcium 8.5 mg/dL (8.4-10.2); Hemolysis Index 0
[2020-03-16] MEDS: VANCOMYCIN 1,250 MG in SODIUM CHLORIDE 0.9% 250ML 250 ML IV SCH (07:07)
--- NOTE | 2020-03-16 09:24 | Progress Note ---
Assessment and Plan Cultures: Blood cultures 03/12/2020 MSSA 1 out of 4 Blood cultures 03/14/2020 no growth today Assessment: 50 years old female with history of uncontrolled diabetes, osteoarthritis, initial MSSA bacteremia in August 2019, recurrent MSSA bacteremia and MSSA right knee septic arthritis in December 2019, well-known to infectious diseases service, admitted on 03/12/2020 due to recurrent right knee septic arthritis: #Sepsis: Present on admission with tachycardia and leukocytosis, fever at home; likely secondary to recurrent right knee septic arthritis +/- bacteremia. #Recurrent right knee septic arthritis: Apparently, she had a right knee aspiration at [facility] last night, results pending. In December 2019, patient had blood cultures positive for MSSA on 12/24/2019 knee aspiration demonstrated 54,000 WBCs with 97% neutrophils and negative crystals. Synovitic fluid on 12/24/2019 grew MSSA. Patient was evaluated by orthopedics. Patient was treated with cefazolin 2 g IV q 8 hour daily 4 weeks until 01/25/2020. Patient is non complaint, did not show to the infusion center for some of her PICC line dressing changes. ESR>140. CRP 21. S/P OR arthroscopy right knee with irrigation and debridement on 03/14/2020, OR findings - abundant synovial hyperplasia or thickening with no evidence of malignancy in addition patient is also noted to have chondromalacic changes involving the articular cartilage with fissuring noted tissue samples as well as wound cultures were obtained the knee joint. #Recurrent MSSA bacteremia: 1 out of 4 bottles, likely recurrent MSSA bacteremia from knee infection. #History of recurrent MSSA bacteremia: Initially in August 2019 underwent in December 2019. #Noncompliant: Patient missed several appointments for PICC line dressing changes and follow-up with infectious diseases. #Uncontrolled diabetes: Not better. #Severe anemia: Per primary team. Recommendations: -Obtain TTE -pending -Place PICC line today -F/u OR cultures and path -Stop vancomycin -Continue cefazolin 2 g IV every 8 hours -Anticipate to d/c on cefazolin 2 g IV every 8 hours OR daptomycin 8 mg/kg qday total 6 weeks until 04/25/2020. Sent to social work case manager. Patient is unfunded. -Educated about antibiotic therapy infusion complications and PICC line complications -Educated about ID clinic follow-up -Okay to discharge once antibiotics have been arranged ID clinic follow-up in [address] Chawla will be covering the weekend Will follow. Elisa Mckay MD Infectious Diseases [employer] [facility] ([facility]) M [phone] O [phone] Subjective Date of service: 03/16/20 Principal diagnosis: Septic knee arthritis Interval history: Patient feels better, denies any pain, nausea, vomiting, diarrhea, knee pain improving, no fever Objective - Exam Narrative Exam: General appearance: Alert in NAD Eyes: anicteric sclerae, moist conjunctivae; no lid-lag; PERRLA HENT: Atraumatic; oropharynx clear Lungs: CTA, with normal respiratory effort and no intercostal retractions CV: RRR no murmur Abdomen: Soft, non-tender; no masses or hepatosplenomegaly Extremities: Right knee with surgical dressings Skin: No rash. Psych: Appropriate affect, alert and oriented to person, place and time. Neuro: alert and oriented x 3. Moving all extermities - Constitutional Vitals: Vital Signs Temp Pulse Resp BP Pulse Ox 97.8 F 93 H 16 191/96 96 03/16/20 04:17 03/16/20 05:24 03/16/20 06:08 03/16/20 05:24 03/16/20 04:17 Temperature -Last 24 Hours Temperature 97.8 F Temperature 98 F Temperature 97.6 F Temperature 98.2 F Temperature 98.3 F Temperature 98.2 F Temperature 98.2 F Temperature 98.1 F Temperature 98.2 F Temperature 98.1 F Temperature 98.1 F Temperature 98.4 F - Labs CBC & Chem 7: 03/16/20 05:40 03/16/20 05:40 Labs: Abnormal lab results 03/12/20 03/15/20 03/15/20 Range/Units 16:23 12:09 15:35 WBC (4.5-11.0) K/mm3 RBC (3.65-5.03) M/mm3 Hgb (10.1-14.3) gm/dl Hct (30.3-42.9) % MCV (79-97) fl MCH (28-32) pg RDW (13.2-15.2) % Plt Count (140-440) K/mm3 Sodium (137-145) mmol/L Potassium (3.6-5.0) mmol/L Chloride (98-107) mmol/L BUN (7-17) mg/dL POC Glucose 312 H (70-105) mg/dL Crossmatch See Detail See Detail 03/15/20 03/15/20 03/16/20 Range/Units 18:27 21:50 05:40 WBC 14.4 H (4.5-11.0) K/mm3 RBC 3.60 L (3.65-5.03) M/mm3 Hgb 7.9 L (10.1-14.3) gm/dl Hct 25.6 L (30.3-42.9) % MCV 71 L (79-97) fl MCH 22 L (28-32) pg RDW 21.4 H (13.2-15.2) % Plt Count 509 H (140-440) K/mm3 Sodium (137-145) mmol/L Potassium (3.6-5.0) mmol/L Chloride (98-107) mmol/L BUN (7-17) mg/dL POC Glucose 295 H 210 H (70-105) mg/dL Crossmatch 03/16/20 03/16/20 Range/Units 05:40 08:34 WBC (4.5-11.0) K/mm3 RBC (3.65-5.03) M/mm3 Hgb (10.1-14.3) gm/dl Hct (30.3-42.9) % MCV (79-97) fl MCH (28-32) pg RDW (13.2-15.2) % Plt Count (140-440) K/mm3 Sodium 135 L (137-145) mmol/L Potassium 3.3 L (3.6-5.0) mmol/L Chloride 96.1 L (98-107) mmol/L BUN 20 H (7-17) mg/dL POC Glucose 115 H (70-105) mg/dL Crossmatch
[2020-03-16] MEDS: SENNOSIDES 8.6 MG TAB PO SCH ×2 (10:04→10:05)
[2020-03-16] MEDS: HEPARIN 5,000 UNIT/1 ML VIAL SUB-Q SCH (10:04)
[2020-03-16] MEDS: FAMOTIDINE 20 MG TAB PO SCH ×3 (10:04→10:06)
[2020-03-16] MEDS: INSULIN NPH/REGULAR 70/30 INJ SUB-Q SCH ×2 (10:05→17:18)
[2020-03-16] MEDS: INSULIN REGULAR, HUMAN 100 UNIT/ML 3ML VIAL SUB-Q SCH ×5 (10:06→17:18)
[2020-03-16] MEDS: oxyCODONE /ACETAMINOPHEN 5-325MG TAB PO PRN ×2 (10:11→19:03)
--- NOTE | 2020-03-16 13:18 | Discharge Summary ---
Providers - Providers Date of Admission: 03/12/20 10:15 Attending physician: ED ORTIZ MD 03/12/20 10:23 Consult to Physician [CONS] Routine Comment: Consulting Provider: ELISA MACHADO Physician Instructions: Reason For Exam: infected knee joint 03/12/20 11:18 Consult to Physician [CONS] Routine Comment: Consulting Provider: VINNY LACY Physician Instructions: Reason For Exam: pyogenic arthiritis of right knee 03/14/20 18:39 Physical Therapy Evaluation and Treat [CONS] Routine Comment: Reason For Exam: Gait training Weight bearing status?: Full wt bearing Assistive devices?: Yes If so list: Walker 03/15/20 09:23 Consult to Case Management [CONS] Stat Services Needed at Discharge: Other Notified:: continuity writer Additional Physician Instructions: [facility] ([facility]) [address] [place] [address] OUTPATIENT PARENTERAL ANTIBIOTIC THERAPY (OPAT) ORDERS Diagnoses: 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 Remove PICC line after last dose unless otherwise instructed. Line: Maintain IV access with weekly dressing changes and locks per protocol. Labs: Every Thursday CBC, AST, ALT, Creatinine, CPK. Please fax results to [phone] and call [phone] for critical lab results. Elisa Fernandez MD Infectious Diseases Technical Marketing Consultant [facility] ([facility]) O: [phone] F: [phone] 03/16/20 09:26 Consult to PICC Line RN [CONS] Stat Reason For Exam: IV antibiotics x 6 week Type Line:: PICC Primary care physician: AIR [facility]OD[facility] Hospitalization Reason for admission: Knee infection Hospital course: This is a 50-year-old female with diabetes, septic arthritis, hypertension who was a direct admit from [facility] who presents with a pyogenic arthritis of the right knee. Patient had 2 weeks of swelling and pain described as aching and stabbing to her right knee rated a 6/10 without any relieving factors but worsens with movement. Patient also endorses subjective fevers for the past week. Of note patient was recently hospitalized 12/23-01/03 with MSSA right knee septic arthritis and she was discharged with IV antibiotics. She states her right knee swelling never completely resolved post antibiotics. She states she fell down on her right hip and knee 2 days ago which aggravated the swelling and pain. Patient endorses a 7 pound weight loss within the past 2 weeks. She denies chest pain, cough, hemoptysis, chills, nausea or vomiting. Patient denies any sick contacts or recent exposure to known COVID-19. Patient denies any chest pain, shortness of breath, diarrhea or loss of taste/smell. Patient states her right knee was aspirated yesterday at [facility] and records were requested. Infectious disease and orthopedics were consulted. 03/12 CBC, CMP, CRP, ESR, UA and BC x2 pending. Advance care planning conducted at bedside. Prior visit reviewed. Patient was treated with cefazolin 2 g IV q 8 hour daily 4 weeks until 01/25/2020. Patient is non complaint, did not show to the infusion center for some of her PICC line dressing changes. Per ID Noncompliant: Patient missed several appointments for PICC line dressing changes and follow-up with infectious diseases. -XRAY 03/12 right knee xr shows Diffuse soft tissue swelling and margot large joint effusion has increased since the previous exam. Cortical irregularity has developed in the lateral tibial plateau concerning for fracture or bony destruction. Moderate degenerative changes are noted throughout the knee which appear increased in the lateral compartment since the previous exam. Consider further evaluation with MRI with and without contrast. 03/13: Clinical stable, awaiting Surgical intervention, continue abx and pain control. 03/14: MRI today, Awaiting records from [facility] knee aspiration and studies with cultures as well as blood cultures, Start vancomycin IV with PK consult, Start cefazolin 2 g IV every 8 hours, Await todays labs and monitor H/H 03/15: Patient is status post arthroscopy of the knee. Awaiting cultures. Will need prolonged antibiotic therapy and ID will await for second culture to be negative for 48 hours and then will proceed with a PICC line 03/16: S/P OR arthroscopy right knee with irrigation and debridement on 03/14/2020, OR findings - abundant synovial hyperplasia or thickening with no evidence of malignancy in addition patient is also noted to have chondromalacic changes involving the articular cartilage with fissuring noted tissue samples as well as wound cultures were obtained the knee joint. Patient today is clinically stable awaiting PICC line placement and discharge. I have had extensive discussion with her about importance of following up as she was noncompliant during the previous time. She verbalized understanding. She does have recurrent MSSA bacteremia 1 out of 4 bottles likely from the knee infection. She did undergo arthroscopy yesterday. I also discussed her anemia and recommend an outpatient FORESTRY CONSULTANT evaluation considering her age. She verbalized understanding. - Patient Problems (1) severe sepsis Current Visit: No Status: Acute Qualifiers: Sepsis type: sepsis due to unspecified organism Sepsis acute organ dysfunction status: unspecified Qualified Code(s): A41.9 - Sepsis, unspecified organism Plan to address problem: Present on admission with tachycardia and leukocytosis, fever at home; likely secondary to recurrent right knee septic arthritis. 03/12 BC x2 03/12 UC Trend CBC Antibiotic therapy [place] [facility] [place] of synovial joint (2) Pyogenic arthritis Current Visit: Yes Status: Acute Qualifiers: Septic arthritis location: knee Laterality: right Plan to address problem: Presents with right knee swelling, erythema, tenderness for 2 weeks Was recently discharged from the hospital in December for a right septic knee and completed her course of antibiotics for MSSA 03/12 right knee xr shows diffuse soft tissue swelling and a very large joint effusion has increased since the previous exam. Cortical irregularity has developed in the lateral tibial plateau concerning for fracture or bony destruction. Moderate degenerative changes are noted throughout the knee which appear increased in the lateral compartment since the previous exam. Consider further evaluation with MRI with and without contrast. ID consulted Patient received an aspiration at OSH, records requested Orthopedics consulted 03/12 MRI of RLE pending Per ID: initial MSSA bacteremia in August 2019, recurrent MSSA bacteremia and MSSA right knee septic arthritis in December 2019; Patient was treated with cefazolin 2 g IV q 8 hour daily 4 weeks until 01/25/2020. Patient is non complaint, did not show to the infusion center for some of her PICC line dressing changes. Antibiotic therapy: Vancomycin and cefazolin 03/12 CRP 21 (3) Anemia Current Visit: Yes Status: Acute Plan to address problem: 03/12 H7H 6.8/22.3 Stat type and cross Transfuse 1 unit PRBC and obtain posttransfusion H&H Transfuse for hemoglobin less than 7 Trend CBC Outpatient FORESTRY CONSULTANT evaluation recommended (4) Thrombocythemia Current Visit: Yes Status: Acute Plan to address problem: Admit platelets 564K Trend CBC Likely reactive in setting of sepsis secondary to septic knee arthritis (5) Leukocytosis Current Visit: Yes Status: Acute Plan to address problem: Admit leukocytosis 15.3 Trend CBC Antibiotic therapy (6) Hypertension Current Visit: Yes Status: Chronic Plan to address problem: Resume home regimen of hydralazine One-time dose of labetalol Blood pressure monitor per protocol (7) Diabetes mellitus Current Visit: Yes Status: Chronic Plan to address problem: Restarted home Lantus CC diet 03/12 hemoglobin A1c 7.9 SSI Accu-Cheks AC at bedtime Hypoglycemic protocol (8) Noncompliance with medication regimen Current Visit: No Status: Acute Plan to address problem: Patient states that she does not have a PCP Stressed importance of establishing care with a PCP and continuing medications for diabetes and high blood pressure Patient stated that she has been compliant with her insulin for her diabetes however she stopped taking her antihypertensive when she ran out CM consulted for social issues Recommendations: -Obtain TTE -pending -Place PICC line today -F/u OR cultures and path -Stop vancomycin -Continue cefazolin 2 g IV every 8 hours -Anticipate to d/c on cefazolin 2 g IV every 8 hours OR daptomycin 8 mg/kg qday total 6 weeks until 04/25/2020. Sent to director case. Patient is unfunded. -Educated about antibiotic therapy infusion complications and PICC line complications -Educated about ID clinic follow-up -Okay to discharge once antibiotics have been arranged ID clinic follow-up in 2 weeks Disposition: DC/TX-06 HOME UNDER HOME [facility] Time spent for discharge: 35 minutes Core Measure Documentation - Palliative Care Palliative Care/ Comfort Measures: Not Applicable - Core Measures Any of the following diagnoses?: none Exam - Physical Exam Narrative exam: - Constitutional General appearance: Present: Resting comfortably this morning with no distress - EENT Eyes: Present: PERRL, EOM intact ENT: hearing intact, clear oral mucosa - Neck Neck: Present: supple, normal ROM - Respiratory Respiratory effort: normal Respiratory: bilateral: CTA - Cardiovascular Rhythm: regular Heart Sounds: Present: S1 & S2. Absent: systolic murmur, diastolic murmur - Extremities Extremities: no ischemia, pulses intact, pulses symmetrical Extremity abnormal: edema (To the right knee), erythema (To right knee), tenderness (To right knee) Peripheral Pulses: within normal limits - Abdominal General gastrointestinal: Present: soft, non-tender, non-distended, normal bowel sounds - Integumentary Integumentary: Present: warm, dry - Musculoskeletal Musculoskeletal: strength equal bilaterally - Psychiatric Psychiatric: appropriate mood/affect, memory intact, cooperative - Neurologic Neurologic: CNII-XII intact, no focal deficits, moves all extremities - Constitutional Vitals: Temp Pulse Resp BP Pulse Ox 97.8 F 93 H 16 191/96 95 03/16/20 04:17 03/16/20 05:24 03/16/20 06:08 03/16/20 05:24 03/16/20 10:00 Plan Activity: advance as tolerated, fall precautions Diet: low fat Special Instructions: record daily BP diary Additional Instructions: Antibiotics per ID Follow up with: PRIMARY CAREMD [Primary Care Provider] - 7 Days VINNY LACY MD [Staff Physician] - 7 Days ELISA MACHADO MD [Staff Physician] - 7 Days Prescriptions: oxyCODONE /ACETAMINOPHEN [Percocet 5/325 mg] 2 tab PO Q6H PRN #20 tablet PRN Reason: Pain, Moderate (4-6) Sennosides Tab [Senokot] 8.6 mg PO Q12HR #60 tablet
== END 2020-03-16 20:30 | disposition home or self-care (01) | DRG 854 ==
LOC: 3A 10:15
PROVIDERS: ADMIT Internal Medicine; ATTEND Internal Medicine
PROC: 30233N1 Transfusion of Nonautologous Red Blood Cells into Peripheral Vein, Percutaneous Approach (ICD-10-PCS; 2020-03-13)
PROC: 0SBC4ZZ Excision of Right Knee Joint, Percutaneous Endoscopic Approach (ICD-10-PCS; principal; 2020-03-14)
PROC: 3E1U48Z Irrigation of Joints using Irrigating Substance, Percutaneous Endoscopic Approach (ICD-10-PCS; 2020-03-14)
PROC: 02HV33Z Insertion of Infusion Device into Superior Vena Cava, Percutaneous Approach (ICD-10-PCS; 2020-03-16)
DX: A41.01 Sepsis due to Methicillin susceptible Staphylococcus aureus (principal); M00.9 Pyogenic arthritis, unspecified; E11.9 Type 2 diabetes mellitus without complications; I10 Essential (primary) hypertension; R65.20 Severe sepsis without septic shock; D64.9 Anemia, unspecified; D69.6 Thrombocytopenia, unspecified; Z91.14 Patient's other noncompliance with medication regimen; Z83.3 Family history of diabetes mellitus; Z79.899 Other long term (current) drug therapy
CPT/HCPCS: 36415; 73721; 80048; 80053; 80061; 80202; 81001; 82043; 82962; 83036; 85018; 85025; 85027; 85652; 86140; 86850; 86900; 86901; 86920; 87040; 87075; 87076; 87116; 87186; 87641; 88305; 93306; 94640; G0378; A4217; J0360; J0690; J1030; J1170; J1644; J1815; J1885; J2250; J2270; J2405; J2704; J2765; J3010; J3370; J7030; J7040; J7050; P9016

== ENCOUNTER 2020-03-22 09:28 | Emergency (ER) | payer SELFPAY ==
--- NOTE | 2020-03-22 09:50 | Emergency Department Report ---
HPI - General Time Seen by Provider: 03/22/20 09:37 - HPI HPI: Room 18 The patient is a 50-year-old female present with a chief complaint of left upper extremity swelling. Patient states she noticed swelling in her left upper extremity yesterday prompting her to call her infectious disease physician who sent her to the ED. Patient has a PICC line placed secondary to septic arthritis in the right knee. Patient states her home medications have been flowing normally. Patient states there is been no trauma to her left upper extremity or the PICC line. Patient denies history of fever. Patient currently denies complaints ED Past Medical Hx - Past Medical History Hx Hypertension: Yes (poorly controlled this admission) Hx Diabetes: Yes Hx Deep Vein Thrombosis: (unknown) Hx Arthritis: Yes - Surgical History Additional Surgical History: c-sections, right knee washout, toe surgery - Family History Family history: no significant - Social History Smoking Status: Never Smoker Substance Use Type: None (Denies illicit drug use) - Medications Home Medications: Home Medications Medication Instructions Recorded Confirmed Last Taken Type Insulin Regular, Human [Humulin R] See Protocol IJ ACHS 30 Days vial 08/30/18 03/12/20 03/11/20 Rx ALBUTEROL NEB's [Proventil 0.083% 2.5 mg IH Q4H PRN #1 nebu 01/04/20 03/12/20 Unknown Rx NEBS] Acetaminophen [Acetaminophen TAB] 650 mg PO Q4H PRN tablet 01/04/20 03/12/20 03/10/[address] [Voltaren Dr] 75 mg PO BID #30 tablet 01/04/20 03/12/20 Unknown Rx Insulin Lispro [Humalog] 0 unit SUB-Q Q6HR #1 vial 01/04/20 03/12/20 Unknown Rx Insulin NPH/Regular [NovoLIN 70/30] 30 unit SUB-Q BIDDIAB #1 units 01/04/20 03/12/20 Unknown Rx hydrALAZINE [Apresoline TAB] 10 mg PO Q8HR #90 tablet 01/04/20 03/12/20 Unknown Rx Sennosides Tab [Senokot] 8.6 mg PO Q12HR #60 tablet 03/16/20 Unknown Rx oxyCODONE /ACETAMINOPHEN [Percocet 2 tab PO Q6H PRN #20 tablet 03/16/20 Unknown Rx 5/325 mg] Apixaban [Eliquis] 5 mg PO QDAY #90 tablet 03/22/20 Unknown Rx ED Review of Systems ROS: Stated complaint: LEAKING PICK LINE Other details as noted in HPI Constitutional: denies: fever Eyes: denies: eye pain ENT: denies: throat pain Respiratory: no symptoms reported Cardiovascular: denies: chest pain Endocrine: no symptoms reported Gastrointestinal: denies: abdominal pain Genitourinary: denies: dysuria Musculoskeletal: denies: back pain Neurological: denies: headache Hematological/Lymphatic: other (Left upper extremity swelling) Physical Exam - Physical Exam Physical Exam: GENERAL: The patient is well-developed well-nourished female lying on stretcher not appearing to be in acute distress. [] HEENT: Normocephalic. Atraumatic. Extraocular motions are intact. Patient has moist mucous membranes. NECK: Supple. Trachea midline CHEST/LUNGS: Clear to auscultation. There is no respiratory distress noted. HEART/CARDIOVASCULAR: Regular. There is no tachycardia. There is no gallop rub or murmur. 2+ left radial pulse ABDOMEN: Patient has normal bowel sounds. There is no abdominal distention. SKIN: There is no rash. There is moderate edema of the left upper extremity when compared to the right. There is no diaphoresis. NEURO: The patient is awake, alert, and oriented. The patient is cooperative. The patient has no focal neurologic deficits. The patient has normal speech MUSCULOSKELETAL: There is no evidence of acute injury. ED Course - Consultations Consultation #1: 03/22/20 11:07 Vascular surgery paged-Case discussed with Dr. Rodas. Will come evaluate patient ED Medical Decision Making - Lab Data Result diagrams: 03/22/20 09:51 03/22/20 09:51 Laboratory Tests 03/22/20 03/22/20 09:51 09:51 WBC 9.2 RBC 3.92 Hgb 8.6 L Hct 27.5 L MCV 70 L MCH 22 L MCHC 31 RDW 23.3 H Plt Count 562 H Lymph % (Auto) 20.8 [place] % (Auto) 4.9 Eos % (Auto) 2.4 Baso % (Auto) 0.9 Lymph # (Auto) 1.9 [place] # (Auto) 0.5 Eos # (Auto) 0.2 Baso # (Auto) 0.1 Seg Neutrophils % 71.0 H Seg Neutrophils # 6.5 Sodium 136 L Potassium 3.6 Chloride 97.2 L Carbon Dioxide 28 Anion Gap 14 BUN 9 Creatinine 0.7 Estimated GFR > 60 BUN/Creatinine Ratio 13 Glucose 269 H Calcium 9.2 - Radiology Data Radiology results: report reviewed (Chest x-ray, left upper extremity Doppler), image reviewed (Chest x-ray, left upper extremity Doppler) interpreted by me: Chest x-ray-PICC line in appropriate position, no pneumothorax. No focal infilt rate [address] [address] Vascular Lab Report Signed Patient: ADELITA HARRY MR#: [id number] : 1970 Acct:[id number] Age/Sex: 50 / F ADM Date: 03/22/20 Loc: ED Attending Dr: Ordering Physician: AUSTYN KENNEDY MD Date of Service: 03/22/20 Procedure(s): VL venous duplex UE LT Accession Number(s): [id number] cc: AUSTYN KENNEDY MD DUPLEX DOPPLER UPPER EXTREMITY VENOUS, LEFT INDICATION / CLINICAL INFORMATION: Swelling, PICC line in place. Left upper extremity swelling. PICC line in left upper extremity. TECHNIQUE: Duplex doppler imaging was performed through the veins of the left upper extremity using venous compression and other maneuvers. COMPARISON: None available. FINDINGS: LEFT INTERNAL JUGULAR VEIN: Negative. LEFT SUBCLAVIAN VEIN: Negative. LEFT AXILLARY VEIN: Negative. LEFT BRACHIAL VEIN: Negative. LEFT FOREARM VEINS: Negative. LEFT BASILIC VEIN (SUPERFICIAL): Negative. ADDITIONAL FINDINGS: Superficial venous thrombosis in the left upper extremity cephalic vein at the mid forearm. IMPRESSION: 1. No sonographic evidence for DVT. 2. Superficial thrombophlebitis in the left forearm. Signer Name: Shannon Ramos MD Signed: 03/22/2020 11:33 AM Workstation Name: [id number] Transcribed By: DT Dictated By: Wilma Ramos MD Electronically Authenticated By: Wilma Ramos MD Signed Date/Time: 05/22/19 1133 DD/ 1132 TD/TT: [address] [address] XRay Report Signed Patient: ADELITA HARRY MR#: [id number] : 1970 Acct:[id number] Age/Sex: 50 / F ADM Date: 03/22/20 Loc: ED Attending Dr: Ordering Physician: AUSTYN KENNEDY MD Date of Service: 03/22/20 Procedure(s): XR chest 1V ap Accession Number(s): [id number] cc: AUSTYN KENNEDY MD Fluoro Time In Minutes: CHEST 1 VIEW 9:41 AM INDICATION / CLINICAL INFORMATION: Checking PICC line placement. COMPARISON: 12/24/2019. FINDINGS: SUPPORT DEVICES: There is a PICC entering from the left arm with the tip overlying the mid to distal SVC. HEART / MEDIASTINUM: The heart size and pulmonary vasculature are normal. LUNGS / PLEURA: No significant pulmonary or pleural abnormality. No pneumothorax. ADDITIONAL FINDINGS: There are moderate degenerative changes involving both shoulders. IMPRESSION: Left PICC without complication. Signer Name: Toro Gill MD Signed: 03/22/2020 11:17 AM Workstation Name: [id number] Transcribed By: RT Dictated By: Toro Gill MD Electronically Authenticated By: Toro Gill MD Signed Date/Time: 03/22/20 111 DD/ 111 TD/TT: - Differential Diagnosis DVT, phlebitis Critical care attestation.: If time is entered above; I have spent that time in minutes in the direct care of this critically ill patient, excluding procedure time. ED Disposition Clinical Impression: Superficial venous thrombosis of left arm Disposition: DC-01 TO HOME OR SELFCARE Is pt being admited?: No Does the pt Need Aspirin: No Condition: Stable Additional Instructions: Return to the emergency department should you develop worsening symptoms, inability to tolerate food or liquids, high fever or any other concerns Prescriptions: Apixaban [Eliquis] 5 mg PO QDAY #90 tablet Referrals: BISHNU NEVES MD [Primary Care Provider] - 3-5 Days WILMA RODAS MD [Staff Physician] - 3-5 Days (Dr. Rodas is a vascular surgeon/interventional radiologist. Please follow-up with him for further evaluation) Time of Disposition: 15:11
[2020-03-22 10:33] LABS: Basophils # (Auto) 0.1 K/mm3 (0.0-0.1); Basophils % (Auto) 0.9 % (0.0-1.8); Eosinophils # (Auto) 0.2 K/mm3 (0.0-0.4); Eosinophils % (Auto) 2.4 % (0.0-4.3); Hematocrit 27.5 % (30.3-42.9); Hemoglobin 8.6 gm/dl (10.1-14.3); Lymphocytes # (Auto) 1.9 K/mm3 (1.2-5.4); Lymphocytes % (Auto) 20.8 % (13.4-35.0); Mean Corpuscular HGB Conc 31 % (30-34); Mean Corpuscular Volume 70 fl (79-97); Monocytes # (Auto) 0.5 K/mm3 (0.0-0.8); Monocytes % (Auto) 4.9 % (0.0-7.3); Platelet Count 562 K/mm3 (140-440); Red Blood Count 3.92 M/mm3 (3.65-5.03)
[2020-03-22 10:38] LABS: Red Cell Distribution Width 23.3 % (13.2-15.2)
[2020-03-22 10:49] LABS: Blood Urea Nitrogen 9 mg/dL (7-17); Calcium 9.2 mg/dL (8.4-10.2); Hemolysis Index 0
[2020-03-22 10:51] LABS: BUN/Creatinine Ratio 13
--- NOTE | 2020-03-22 11:21 | XRay Report ---
CHEST 1 VIEW 9:41 AM INDICATION / CLINICAL INFORMATION: Checking PICC line placement. COMPARISON: 12/24/2019. FINDINGS: SUPPORT DEVICES: There is a PICC entering from the left arm with the tip overlying the mid to distal SVC. HEART / MEDIASTINUM: The heart size and pulmonary vasculature are normal. LUNGS / PLEURA: No significant pulmonary or pleural abnormality. No pneumothorax. ADDITIONAL FINDINGS: There are moderate degenerative changes involving both shoulders. IMPRESSION: Left PICC without complication. Signer Name: Toro Gill MD Signed: 03/22/2020 11:17 AM Workstation Name: [id number]
--- NOTE | 2020-03-22 11:38 | Vascular Lab Report ---
DUPLEX DOPPLER UPPER EXTREMITY VENOUS, LEFT INDICATION / CLINICAL INFORMATION: Swelling, PICC line in place. Left upper extremity swelling. PICC line in left upper extremity. TECHNIQUE: Duplex doppler imaging was performed through the veins of the left upper extremity using venous compr ession and other maneuvers. COMPARISON: None available. FINDINGS: LEFT INTERNAL JUGULAR VEIN: Negative. LEFT SUBCLAVIAN VEIN: Negative. LEFT AXILLARY VEIN: Negative. LEFT BRACHIAL VEIN: Negative. LEFT FOREARM VEINS: Negative. LEFT BASILIC VEIN (SUPERFICIAL): Negative. ADDITIONAL FINDINGS: Superficial venous thrombosis in the left upper extremity cephalic vein at the m id forearm. IMPRESSION: 1. No sonographic evidence for DVT. 2. Superficial thrombophlebitis in the left forearm. Signer Name: Shannon Ramos MD Signed: 03/22/2020 11:33 AM Workstation Name: [id number]
--- NOTE | 2020-03-22 15:04 | Consultation ---
History of Present Illness - Reason for Consult Consult date: 03/22/20 Left arm swelling - History of Present Illness Patient with a history of right septic knee arthritis who had a PICC line placed in her left upper arm. Over the past several days, the patient has noticed increased swelling in the left arm and presented to the emergency department where she was found to have an SVT in the cephalic vein. No DVT was identified. The PICC line flushes easily. Other than the swelling, the patient has no specific complaints. Medications and Allergies Allergies Allergy/AdvReac Type Severity Reaction Status Date / Time No Known Allergies Allergy Verified 08/21/18 13:05 Home Medications Medication Instructions Recorded Confirmed Last Taken Type Insulin Regular, Human [Humulin R] See Protocol IJ ACHS 30 Days vial 08/30/18 03/12/20 03/11/20 Rx ALBUTEROL NEB's [Proventil 0.083% 2.5 mg IH Q4H PRN #1 nebu 01/04/20 03/12/20 Unknown Rx NEBS] Acetaminophen [Acetaminophen TAB] 650 mg PO Q4H PRN tablet 01/04/20 03/12/20 03/10/[address] [Voltaren Dr] 75 mg PO BID #30 tablet 01/04/20 03/12/20 Unknown Rx Insulin Lispro [Humalog] 0 unit SUB-Q Q6HR #1 vial 01/04/20 03/12/20 Unknown Rx Insulin NPH/Regular [NovoLIN 70/30] 30 unit SUB-Q BIDDIAB #1 units 01/04/20 03/12/20 Unknown Rx hydrALAZINE [Apresoline TAB] 10 mg PO Q8HR #90 tablet 01/04/20 03/12/20 Unknown Rx Sennosides Tab [Senokot] 8.6 mg PO Q12HR #60 tablet 03/16/20 Unknown Rx oxyCODONE /ACETAMINOPHEN [Percocet 2 tab PO Q6H PRN #20 tablet 03/16/20 Unknown Rx 5/325 mg] Review of Systems All systems: negative Exam - Constitutional Vitals: Temp Pulse Resp BP Pulse Ox 98.4 F 83 30 H 199/93 99 03/22/20 09:48 03/22/20 12:01 03/22/20 12:01 03/22/20 12:01 03/22/20 12:01 General appearance: Present: no acute distress - EENT Eyes: Present: EOM intact ENT: hearing intact - Neck Neck: Present: supple, normal ROM - Respiratory Respiratory effort: normal - Extremities Extremities: No edema Extremity abnormal: pulses diminished - Abdominal General gastrointestinal: Present: deferred Female genitourinary: Present: deferred - Rectal Rectal Exam: deferred - Psychiatric Psychiatric: appropriate mood/affect, cooperative Results - Labs CBC & Chem 7: 03/22/20 09:51 03/22/20 09:51 Labs: Abnormal lab results 03/22/20 03/22/20 Range/Units 09:51 09:51 Hgb 8.6 L (10.1-14.3) gm/dl Hct 27.5 L (30.3-42.9) % MCV 70 L (79-97) fl MCH 22 L (28-32) pg RDW 23.3 H (13.2-15.2) % Plt Count 562 H (140-440) K/mm3 Seg Neutrophils % 71.0 H (40.0-70.0) % Sodium 136 L (137-145) mmol/L Chloride 97.2 L (98-107) mmol/L Glucose 269 H (65-100) mg/dL - Imaging and Cardiology Venous US: report reviewed Assessment and Plan Patient with a history of left upper arm SVT. Would recommend 3 months of anticoagulation with Eliquis and placing the PICC line in her right arm which can be done as an outpatient. Patient has had 3 prior picks 2 on the left and one on the right. Additionally, the patient will need ultrasound evaluation of her veins for possible Paget Hernandez as an outpatient. The patient has diminished pulses in her feet and would benefit from an arterial duplex with AB Is.
[2020-03-22 15:44] VITALS: BP 183/96
== END 2020-03-22 15:44 | disposition home or self-care (01) ==
LOC: ED 09:28
DX: I82.612 Acute embolism and thrombosis of superficial veins of left upper extremity (principal); I10 Essential (primary) hypertension; E11.9 Type 2 diabetes mellitus without complications; M19.90 Unspecified osteoarthritis, unspecified site
CPT/HCPCS: 36415; 71045; 80048; 85025

== ENCOUNTER 2020-03-29 15:36 | Emergency (ER) | payer SELFPAY ==
--- NOTE | 2020-03-30 00:21 | Emergency Department Report ---
ED General Adult HPI - General Chief complaint: Medical Clearance Stated complaint: PICC LINE WILL NOT FLUSH Time Seen by Provider: 03/29/20 22:42 Source: patient Mode of arrival: Wheelchair Limitations: No Limitations - History of Present Illness Initial comments: Patient is a 50-year-old F [place] female who is being treated for septic joint of the right knee. Patient is on cefazolin through a PICC line. Patient states she tried to access her PICC line today and would not flush. Patient attempted to go to vascular center to have them flushed and there was not flushable neighbor's center to the emergency department. Patient has no complaints at this time. She states his pain and PICC line has not been pulled. Dressing is clean dry and intact. Severity scale (0 -10): 0 - Related Data Previous Rx's Medication Instructions Recorded Last Taken Type Insulin Regular, Human [Humulin R] See Protocol IJ ACHS 30 Days vial 08/30/18 03/11/20 Rx ALBUTEROL NEB's [Proventil 0.083% 2.5 mg IH Q4H PRN #1 nebu 01/04/20 Unknown Rx NEBS] Acetaminophen [Acetaminophen TAB] 650 mg PO Q4H PRN tablet 01/04/20 03/10/[address] [Voltarechely Dr] 75 mg PO BID #30 tablet 01/04/20 Unknown Rx Insulin Lispro [Humalog] 0 unit SUB-Q Q6HR #1 vial 01/04/20 Unknown Rx Insulin NPH/Regular [NovoLIN 70/30] 30 unit SUB-Q BIDDIAB #1 units 01/04/20 Unknown Rx hydrALAZINE [Apresoline TAB] 10 mg PO Q8HR #90 tablet 01/04/20 Unknown Rx Sennosides Tab [Senokot] 8.6 mg PO Q12HR #60 tablet 03/16/20 Unknown Rx oxyCODONE /ACETAMINOPHEN [Percocet 2 tab PO Q6H PRN #20 tablet 03/16/20 Unknown Rx 5/325 mg] Apixaban [Eliquis] 5 mg PO QDAY #90 tablet 03/22/20 Unknown Rx Allergies Allergy/AdvReac Type Severity Reaction Status Date / Time No Known Allergies Allergy Verified 08/21/18 13:05 ED Review of Systems ROS: Stated complaint: PICC LINE WILL NOT FLUSH Other details as noted in HPI Comment: All other systems reviewed and negative ED Past Medical Hx - Past Medical History Previous Medical History?: Yes Hx Hypertension: Yes (poorly controlled this admission) Hx Diabetes: Yes Hx Deep Vein Thrombosis: (unknown) Hx Liver Disease: No Hx Renal Disease: No Hx Arthritis: Yes Hx Asthma: Yes - Surgical History Past Surgical History?: Yes Hx Pacemaker: No Hx Internal Defibrillator: No Additional Surgical History: c-sections, right knee washout, toe surgery - Social History Smoking Status: Never Smoker Substance Use Type: None (Denies illicit drug use) - Medications Home Medications: Home Medications Medication Instructions Recorded Confirmed Last Taken Type Insulin Regular, Human [Humulin R] See Protocol IJ ACHS 30 Days vial 08/30/18 03/12/20 03/11/20 Rx ALBUTEROL NEB's [Proventil 0.083% 2.5 mg IH Q4H PRN #1 nebu 01/04/20 03/12/20 Unknown Rx NEBS] Acetaminophen [Acetaminophen TAB] 650 mg PO Q4H PRN tablet 01/04/20 03/12/20 03/10/[address] [Voltaren Dr] 75 mg PO BID #30 tablet 01/04/20 03/12/20 Unknown Rx Insulin Lispro [Humalog] 0 unit SUB-Q Q6HR #1 vial 01/04/20 03/12/20 Unknown Rx Insulin NPH/Regular [NovoLIN 70/30] 30 unit SUB-Q BIDDIAB #1 units 01/04/20 03/12/20 Unknown Rx hydrALAZINE [Apresoline TAB] 10 mg PO Q8HR #90 tablet 01/04/20 03/12/20 Unknown Rx Sennosides Tab [Senokot] 8.6 mg PO Q12HR #60 tablet 03/16/20 Unknown Rx oxyCODONE /ACETAMINOPHEN [Percocet 2 tab PO Q6H PRN #20 tablet 03/16/20 Unknown Rx 5/325 mg] Apixaban [Eliquis] 5 mg PO QDAY #90 tablet 03/22/20 Unknown Rx ED Physical Exam - General Limitations: No Limitations General appearance: alert, in no apparent distress - Head Head exam: Present: atraumatic, normocephalic - Eye Eye exam: Present: normal appearance - ENT ENT exam: Present: mucous membranes moist - Neck Neck exam: Present: normal inspection - Respiratory Respiratory exam: Present: normal lung sounds bilaterally. Absent: respiratory distress, wheezes, rales, rhonchi - Cardiovascular Cardiovascular Exam: Present: regular rate, normal rhythm. Absent: systolic murmur, diastolic murmur, rubs, gallop - GI/Abdominal GI/Abdominal exam: Present: soft, normal bowel sounds - Extremities Exam Extremities exam: Present: normal inspection - Back Exam Back exam: Present: normal inspection - Neurological Exam Neurological exam: Present: alert, oriented X3 - Psychiatric Psychiatric exam: Present: normal affect, normal mood - Skin Skin exam: Present: warm, dry, intact, normal color. Absent: rash ED Course Vital Signs 03/29/20 16:03 Temperature 98.2 F Pulse Rate 90 Respiratory 18 Rate Blood Pressure 199/95 [Right] O2 Sat by Pulse 100 Oximetry ED Medical Decision Making - Medical Decision Making Were unable to flush the PICC line with normal saline and a heparin flush. Patient had another IV started at this time and she was given dose of her cefazolin. Patient be discharged home will follow with the vascular clinic for better access tomorrow Critical care attestation.: If time is entered above; I have spent that time in minutes in the direct care of this critically ill patient, excluding procedure time. ED Disposition Clinical Impression: Occluded PICC line Disposition: [id number] TO HOME OR SELFCARE Is pt being admited?: No Does the pt Need Aspirin: No Condition: Stable Additional Instructions: If you are unable to have your PICC line replaced tomorrow unfortunately you will have to come to the emergency department to receive your medication Referrals: RAZA LOPES MD [Staff Physician] - 24 Hours Time of Disposition: 00:22
[2020-03-30 02:22] VITALS: BP 183/84
== END 2020-03-30 01:45 | disposition home or self-care (01) ==
LOC: ED 15:36
DX: T82.898A Other specified complication of vascular prosthetic devices, implants and grafts, initial encounter (principal); I10 Essential (primary) hypertension; E11.9 Type 2 diabetes mellitus without complications; J45.909 Unspecified asthma, uncomplicated; M13.88 Other specified arthritis, other site; Z79.899 Other long term (current) drug therapy; Z98.890 Other specified postprocedural states; X58.XXXA Exposure to other specified factors, initial encounter
CPT/HCPCS: 96365; 99282; J0690; J1642

== ENCOUNTER 2021-04-23 09:26 | Inpatient (IN) | payer SELFPAY ==
--- NOTE | 2021-04-23 10:11 | Emergency Department Report ---
HPI - General Chief Complaint: Weakness Time Seen by Provider: 04/23/21 09:43 - HPI HPI: 51-year-old -[place] female presents to the emergency department via EMS from home with complaint of weakness and uncontrolled diabetes. The patient says that she is supposed to be on oral medication for her diabetes but has not been compliant for many months secondary to financial constraints. Patient says that she was in the living room using some type of a pot to urinate into and the patient found herself to be extremely weak and was unable to get up. She called for her 17-year-old son to try and assist her but "he could not lift me and get me into my wheelchair." The patient says that she uses a wheelchair secondary to severe arthritis of the knees. When EMS arrived they found the patient to have a critically high blood sugar. The patient admits to generalized weakness, increased thirst, increased urination, and shortness of breath. She denies any fever, chest pain, lower extremity swelling, nausea, vomiting. No recent travel or sick contacts at home. She does not have a primary care physician. She denies any alcohol or illicit drug use/abuse. ED Past Medical Hx - Past Medical History Hx Hypertension: Yes (poorly controlled this admission) Hx Diabetes: Yes Hx Deep Vein Thrombosis: (unknown) Hx Liver Disease: No Hx Renal Disease: No Hx Arthritis: Yes Hx Asthma: Yes - Surgical History Hx Pacemaker: No Hx Internal Defibrillator: No Additional Surgical History: c-sections, right knee washout, toe surgery - Social History Smoking Status: Never Smoker Substance Use Type: None (Denies illicit drug use) - Medications Home Medications: Home Medications Medication Instructions Recorded Confirmed Last Taken Type Insulin Regular, Human [Humulin R] See Protocol IJ ACHS 30 Days vial 08/30/18 03/12/20 03/11/20 Rx ALBUTEROL NEB's [Proventil 0.083% 2.5 mg IH Q4H PRN #1 nebu 01/04/20 03/12/20 Unknown Rx NEBS] Acetaminophen [Acetaminophen TAB] 650 mg PO Q4H PRN tablet 01/04/20 03/12/20 03/10/[address] [Voltaren Dr] 75 mg PO BID #30 tablet 01/04/20 03/12/20 Unknown Rx Insulin Lispro [Humalog] 0 unit SUB-Q Q6HR #1 vial 01/04/20 03/12/20 Unknown Rx Insulin NPH/Regular [NovoLIN 70/30] 30 unit SUB-Q BIDDIAB #1 units 01/04/20 03/12/20 Unknown Rx hydrALAZINE [Apresoline TAB] 10 mg PO Q8HR #90 tablet 01/04/20 03/12/20 Unknown Rx Sennosides Tab [Senokot] 8.6 mg PO Q12HR #60 tablet 03/16/20 Unknown Rx oxyCODONE /ACETAMINOPHEN [Percocet 2 tab PO Q6H PRN #20 tablet 03/16/20 Unknown Rx 5/325 mg] Apixaban [Eliquis] 5 mg PO QDAY #90 tablet 03/22/20 Unknown Rx Amlodipine Besylate [Norvasc] 5 mg PO DAILY #30 tablet 03/30/20 Unknown Rx ED Review of Systems ROS: Stated complaint: AMS Other details as noted in HPI Comment: All other systems reviewed and negative Constitutional: weakness. denies: chills, fever Eyes: denies: eye pain, vision change ENT: denies: ear pain, throat pain Respiratory: shortness of breath. denies: cough Cardiovascular: denies: chest pain, edema Gastrointestinal: denies: abdominal pain, vomiting Genitourinary: frequency. denies: dysuria, discharge Musculoskeletal: denies: back pain, arthralgia Skin: denies: rash, lesions Neurological: denies: headache, numbness Physical Exam - Physical Exam Vital Signs: Vital Signs 04/23/21 09:47 Temperature 96.4 F L Pulse Rate 98 H Respiratory 19 Rate Blood Pressure 134/77 [Right] O2 Sat by Pulse 99 Oximetry Physical Exam: GENERAL: The patient is well-developed well-nourished. HENT: Normocephalic. Atraumatic. Patient has moist mucous membranes. EYES: Extraocular motions are intact. NECK: Supple. Trachea is midline. CHEST/LUNGS: Clear to auscultation. Mild tachypnea but no accessory muscle use. HEART/CARDIOVASCULAR: Regular. There is mild tachycardia. There is no murmur. ABDOMEN: Abdomen is soft, nontender. Patient has normal bowel sounds. There is no abdominal distention. SKIN: Skin is warm and dry. NEURO: The patient is awake, alert, and oriented. The patient is cooperative. Normal speech. MUSCULOSKELETAL: There is no tenderness or deformity. There is no limitation range of motion. ED Course Vital Signs 04/23/21 09:47 Temperature 96.4 F L Pulse Rate 98 H Respiratory 19 Rate Blood Pressure 134/77 [Right] O2 Sat by Pulse 99 Oximetry ED Medical Decision Making - Lab Data Result diagrams: 04/23/21 10:33 04/23/21 10:33 Lab Results 04/23/21 04/23/21 04/23/21 Range/Units 10:33 10:33 10:33 WBC 7.4 (4.5-11.0) K/mm3 RBC 4.50 (3.65-5.03) M/mm3 Hgb 11.8 (10.1-14.3) gm/dl Hct 38.0 (30.3-42.9) % MCV 85 (79-97) fl MCH 26 L (28-32) pg MCHC 31 (30-34) % RDW 14.3 (13.2-15.2) % Plt Count 286 (140-440) K/mm3 Seg Neutrophils % District Agent VBG pH (7.320-7.420) Sodium 122 L (137-145) mmol/L Potassium 3.0 L (3.6-5.0) mmol/L Chloride 84.8 L (98-107) mmol/L Carbon Dioxide 6 L* (22-30) mmol/L Anion Gap 34 mmol/L BUN 49 H (7-17) mg/dL Creatinine 1.4 H (0.6-1.2) mg/dL Estimated GFR 48 ml/min BUN/Creatinine Ratio 35 % Glucose 775 H* (65-100) mg/dL POC Glucose (70-105) mg/dL Calcium 12.2 H* (8.4-10.2) mg/dL Total Bilirubin 0.60 (0.1-1.2) mg/dL AST 10 (5-40) units/L ALT 9 (7-56) units/L Alkaline Phosphatase 130 H (35-129) units/L Ammonia (25-60) umol/L Total Creatine Kinase 83 (30-135) units/L Troponin T < 0.010 (0.00-0.029) ng/mL Total Protein 8.2 (6.3-8.2) g/dL Albumin 2.9 L (3.9-5) g/dL Albumin/Globulin Ratio 0.5 % TSH 1.400 (0.270-4.200) mlU/mL 04/23/21 04/23/21 04/23/21 Range/Units 10:33 10:33 10:40 WBC (4.5-11.0) K/mm3 RBC (3.65-5.03) M/mm3 Hgb (10.1-14.3) gm/dl Hct (30.3-42.9) % MCV (79-97) fl MCH (28-32) pg MCHC (30-34) % RDW (13.2-15.2) % Plt Count (140-440) K/mm3 Seg Neutrophils % VBG pH 7.180 L* (7.320-7.420) Sodium (137-145) mmol/L Potassium (3.6-5.0) mmol/L Chloride (98-107) mmol/L Carbon Dioxide (22-30) mmol/L Anion Gap mmol/L BUN (7-17) mg/dL Creatinine (0.6-1.2) mg/dL Estimated GFR ml/min BUN/Creatinine Ratio % Glucose (65-100) mg/dL POC Glucose > 600 H (70-105) mg/dL Calcium (8.4-10.2) mg/dL Total Bilirubin (0.1-1.2) mg/dL AST (5-40) units/L ALT (7-56) units/L Alkaline Phosphatase (35-129) units/L Ammonia 37.0 (25-60) umol/L Total Creatine Kinase (30-135) units/L Troponin T (0.00-0.029) ng/mL Total Protein (6.3-8.2) g/dL Albumin (3.9-5) g/dL Albumin/Globulin Ratio % TSH (0.270-4.200) mlU/mL - EKG Data -: EKG Interpreted by Ne EKG shows normal: sinus rhythm, axis, intervals (Slightly prolonged QTC), QRS complexes (LVH), ST-T waves Rate: tachycardia (102 bpm) - EKG Data When compared to previous EKG there are: no significant change Interpretation: unchanged when compared t (12/25/19 other than current slightly prolonged QTC and mild tachycardia) - Radiology Data Radiology results: report reviewed, image reviewed interpreted by me: Chest x-ray does not show any acute process. There are no pleural effusions, obvious pneumonia and there is no pneumothorax. CT head without contrast INDICATION : Weakness. TECHNIQUE: Axial imaging performed from the skull apex through the skull base without the use of contrast. All CT scans at this location are performed using CT dose reduction for ALARA by means of automated exposure control. COMPARISON: None FINDINGS: Parenchyma: No acute intracranial hemorrhage or parenchymal abnormality. Ventricles: Ventricles are normal in size and appear symmetric. Soft tissues: Soft tissues including the orbits appear normal. Bones: No acute osseous abnormality. Sinuses: Sinuses and mastoid air cells are clear. IMPRESSION: No evidence of acute intracranial abnormality. If neurologic symptoms persist or additional evaluation is clinically indicated, consider MRI. - Medical Decision Making This patient presents to the emergency department with a complaint of weakness and uncontrolled diabetes. On examination the patient does not have any focal, motor or sensory deficits and her cranial nerves are intact. CT scan of the head without contrast does not show any hemorrhage, large vessel occlusion, or any other acute process. She also complained of some shortness of breath so a chest x-ray was performed but it does not show any pneumonia, pleural effusions, pneumothorax, widened mediastinum, or any other acute process. The patient appears in diabetic ketoacidosis with a blood sugar greater than 700, anion gap of 34, venous pH of 7.18. The patient was started on an insulin drip. She was also given oral and IV potassium for some hypokalemia with a potassium of 3. Patient will be admitted to the ICU for further evaluation and treatment of his accepted for patient by the hospitalist, Dr. Abbott. Critical Care Time: Yes Critical care time in (mins) excluding proc time.: 35 Critical care attestation.: If time is entered above; I have spent that time in minutes in the direct care of this critically ill patient, excluding procedure time. Critical care time was spent on this patient in doing her initial evaluation, multiple reeval uations, ordering and interpretation of labs and imaging, IV fluid resuscitation, replenishment of potassium for her hypokalemia, insulin drip for DKA. Critical Care Time: 35 minutes ED Disposition Clinical Impression: DKA (diabetic ketoacidosis), Hypokalemia, High anion gap metabolic acidosis, Pseudohyponatremia, Dehydration Disposition: 09 ADMITTED INPATIENT Is pt being admited?: Yes Condition: Serious Time of Disposition: 13:48
--- NOTE | 2021-04-23 10:26 | XRay Report ---
CHEST 1 VIEW INDICATION / CLINICAL INFORMATION: SOB. Dyspnea. FINDINGS: SUPPORT DEVICES: None. HEART / MEDIASTINUM: No significant abnormality. LUNGS / PLEURA: No significant pulmonary or pleural abnormality. No pneumothorax. ADDITIONAL FINDINGS: No significant additional findings. IMPRESSION: 1. No acute findings. Signer Name: Chaim Asif MD Signed: 04/23/2021 10:22 AM Workstation Name: [id number]
[2021-04-23 10:50] LABS: Hemoglobin 11.8 gm/dl (10.1-14.3); Mean Corpuscular HGB Conc 31 % (30-34); Mean Corpuscular Volume 85 fl (79-97); Platelet Count 286 K/mm3 (140-440); Red Cell Distribution Width 14.3 % (13.2-15.2)
[2021-04-23] MEDS ORDERED: SODIUM CHLORIDE 0.9% 1000 ML 1,000 ML ONE (11:01)
[2021-04-23] MEDS ORDERED: SODIUM CHLORIDE 0.9% 500 ML 0 ML ONE (11:01)
[2021-04-23 11:12] LABS: Alanine Aminotransferase 9 units/L (7-56); Albumin 2.9 g/dL (3.9-5); BUN/Creatinine Ratio 35; Blood Urea Nitrogen 49 mg/dL (7-17); Hemolysis Index 0
[2021-04-23] MEDS ORDERED: SODIUM CHLORIDE 0.9% 1000 ML 1,000 ML IV ONE (11:13)
[2021-04-23 11:16] LABS: Calcium 12.2 mg/dL (8.4-10.2)
[2021-04-23] MEDS ORDERED: POTASSIUM CHLORIDE ER 20 MEQ TAB PO ONE ×2 (11:16→18:55)
--- NOTE | 2021-04-23 11:16 | Cat Scan Report ---
CT head without contrast INDICATION : Weakness. TECHNIQUE: Axial imaging performed from the skull apex through the skull base without the use of con trast. All CT scans at this location are performed using CT dose reduction for ALARA by means of aut omated exposure control. COMPARISON: None FINDINGS: Parenchyma: No acute intracranial hemorrhage or parenchymal abnormality. Ventricles: Ventricles are normal in size and appear symmetric. Soft tissues: Soft tissues including the orbits appear normal. Bones: No acute osseous abnormality. Sinuses: Sinuses and mastoid air cells are clear. IMPRESSION: No evidence of acute intracranial abnormality. If neurologic symptoms persist or additional evaluatio n is clinically indicated, consider MRI. Signer Name: Jose Hamm MD Signed: 04/23/2021 11:12 AM Workstation Name: [id number]
[2021-04-23] MEDS: POTASSIUM CHLORIDE 10 MEQ 10 MEQ/100 ML BAG IV SCH ×6 (11:27→20:36)
--- NOTE | 2021-04-23 11:52 | History and Physical Report ---
History of Present Illness Chief complaint: Feel sick History of present illness: 51 YO Female with DM, OA, Medication Noncompliance, Obesity presents to ED for evaluation. Patient reports "I feel sick". Patient states she had experienced weakness, elevated blood glucose levels, nausea, polydipsia, polyuria, as well as diminished oral intake over the past 1 week with worsening symptoms over the last 2 days. Patient acknowledges noncompliance with oral antihyperglycemic therapy. Patient states that her weight has gotten progressively worse and and that she is "too weak to walk". EMS was notified and upon arrival the patient was found to be in distress and subsequent transported to [facility] for further care and evaluation of the aforementioned symptoms. The patient was seen and evaluated in the emergency department. All lab and imaging studies reviewed. The patient was found to have diabetic ketoacidosis, metabolic encephalopathy, as well as metabolic acidosis, and volume depletion. Patient mated to ICU and initiated on DKA protocol. Critical care team consulted in ED. Patient has fever, chills, chest pain, palpitation, productive cough, skin rash, recent contact, known exposure to COVID-19. Prior admission on 04/12/2020 reviewed. All medication listed at time of admission has been reconciled. Advanced care planning conducted in ED. Past History Past Medical History: arthritis, diabetes Past Surgical History: , Other (Right knee surgery) Social history: single. denies: smoking, alcohol abuse, prescription drug abuse Family history: diabetes, hypertension Medications and Allergies Allergies Allergy/AdvReac Type Severity Reaction Status Date / Time No Known Allergies Allergy Verified 08/21/18 13:05 Home Medications Medication Instructions Recorded Confirmed Last Taken Type Insulin Regular, Human [Humulin R] See Protocol IJ ACHS 30 Days vial 08/30/18 03/12/20 03/11/20 Rx ALBUTEROL NEB's [Proventil 0.083% 2.5 mg IH Q4H PRN #1 nebu 01/04/20 03/12/20 Unknown Rx NEBS] Acetaminophen [Acetaminophen TAB] 650 mg PO Q4H PRN tablet 01/04/20 03/12/20 03/10/[address] [Voltaren Dr] 75 mg PO BID #30 tablet 01/04/20 03/12/20 Unknown Rx Insulin Lispro [Humalog] 0 unit SUB-Q Q6HR #1 vial 01/04/20 03/12/20 Unknown Rx Insulin NPH/Regular [NovoLIN 70/30] 30 unit SUB-Q BIDDIAB #1 units 01/04/20 03/12/20 Unknown Rx hydrALAZINE [Apresoline TAB] 10 mg PO Q8HR #90 tablet 01/04/20 03/12/20 Unknown Rx Sennosides Tab [Senokot] 8.6 mg PO Q12HR #60 tablet 03/16/20 Unknown Rx oxyCODONE /ACETAMINOPHEN [Percocet 2 tab PO Q6H PRN #20 tablet 03/16/20 Unknown Rx 5/325 mg] Apixaban [Eliquis] 5 mg PO QDAY #90 tablet 03/22/20 Unknown Rx Amlodipine Besylate [Norvasc] 5 mg PO DAILY #30 tablet 03/30/20 Unknown Rx Active Meds: Active Medications Sodium Chloride (Nacl 0.9% 1000 Ml) 1,000 mls @ 999 mls/hr IV BOLUS ONE Stop: 04/23/21 12:13 Last Admin: 04/23/21 11:22 Dose: 999 mls/hr Documented by: Potassium Chloride (Kcl 10meq/100ml) 10 meq in 100 mls @ 100 mls/hr IV Q1H AMIRA Stop: 04/23/21 13:59 Last Admin: 04/23/21 11:27 Dose: 100 mls/hr Documented by: Insulin Human Regular 100 (units/ Sodium Chloride) 100 mls @ 1 mls/hr IV TITR AMIRA; Protocol Review of Systems Constitutional: weakness, malaise, no weight loss, no weight gain, no fever, no chills Ears, nose, mouth and throat: no ear pain, no ear discharge, no nasal congestion, no nasal discharge, no sinus pressure Breasts: no change in shape, no swelling, no mass Cardiovascular: no chest pain, no orthopnea, no rapid/irregular heart beat, no syncope Respiratory: no cough, no cough with sputum, no hemoptysis Gastrointestinal: nausea, no abdominal pain, no vomiting, no diarrhea, no constipation Genitourinary Female: no pelvic pain, no flank pain, no dysuria, no urinary frequency, no urgency Rectal: no pain, no incontinence, no bleeding Musculoskeletal: no neck stiffness, no neck pain, no shooting arm pain, no arm numbness/tingling, no low back pain Integumentary: no rash, no pruritis, no redness, no sores, no wounds Neurological: no transient paralysis, no paralysis, no weakness, no numbness, no tingling, no tremors Psychiatric: no anxiety, no memory loss, no sleep disturbances, no hypersomnia, no change in appetite, no suicidal ideation Endocrine: polyphagia, polydipsia, polyuria, no weight change Hematologic/Lymphatic: no easy bruising, no easy bleeding Allergic/Immunologic: no urticaria, no allergic rhinitis, no persistent infections, no anaphylaxis Exam - Constitutional Vitals: Temp Pulse Resp BP Pulse Ox 96.4 F L 102 H 26 H 134/80 99 04/23/21 09:47 04/23/21 10:18 04/23/21 10:18 04/23/21 10:18 04/23/21 09:47 General appearance: Present: mild distress, obese - EENT Eyes: Present: PERRL ENT: hearing intact, clear oral mucosa - Neck Neck: Present: supple, normal ROM - Respiratory Respiratory effort: normal Respiratory: bilateral: CTA - Cardiovascular Heart Sounds: Present: S1 & S2. Absent: rub, click - Extremities Extremities: pulses symmetrical, No edema Peripheral Pulses: within normal limits - Abdominal General gastrointestinal: Present: soft, non-tender, non-distended Female genitourinary: Present: normal - Integumentary Integumentary: Present: dry, clammy, decreased turgor - Musculoskeletal Musculoskeletal: generalized weakness - Psychiatric Psychiatric: appropriate mood/affect, intact judgment & insight, memory intact - Neurologic Neurologic: CNII-XII intact, moves all extremities, no gait normal HEART Score - HEART Score Troponin: Troponin T < 0.010 ng/mL (0.00-0.029) 04/23/21 10:33 Results - Labs CBC & Chem 7: 04/23/21 10:33 04/23/21 15:43 Labs: Abnormal lab results 04/23/21 04/23/21 04/23/21 Range/Units 10:33 10:33 10:33 MCH 26 L (28-32) pg VBG pH 7.180 L* (7.320-7.420) Sodium 122 L (137-145) mmol/L Potassium 3.0 L (3.6-5.0) mmol/L Chloride 84.8 L (98-107) mmol/L Carbon Dioxide 6 L* (22-30) mmol/L BUN 49 H (7-17) mg/dL Creatinine 1.4 H (0.6-1.2) mg/dL Glucose 775 H* (65-100) mg/dL POC Glucose (70-105) mg/dL Calcium 12.2 H* (8.4-10.2) mg/dL Alkaline Phosphatase 130 H (35-129) units/L Albumin 2.9 L (3.9-5) g/dL 04/23/21 Range/Units 10:40 MCH (28-32) pg VBG pH (7.320-7.420) Sodium (137-145) mmol/L Potassium (3.6-5.0) mmol/L Chloride (98-107) mmol/L Carbon Dioxide (22-30) mmol/L BUN (7-17) mg/dL Creatinine (0.6-1.2) mg/dL Glucose (65-100) mg/dL POC Glucose > 600 H (70-105) mg/dL Calcium (8.4-10.2) mg/dL Alkaline Phosphatase (35-129) units/L Albumin (3.9-5) g/dL Assessment and Plan - Patient Problems (1) DKA (diabetic ketoacidosis) Current Visit: Yes Status: Acute Qualifiers: Diabetes mellitus type: type 1 Plan to address problem: DKA protocol: Insulin drip, IV fluid resuscitation therapy, serial BMP, monitor fluid balance, monitor anion gap, potassium repletion as per protocol. The high probability of a clinically significant, sudden or life threatening deterioration of the [endocrine, neuro] system(s) required my full and direct attention, intervention and personal management. The aggregate critical care time was [65] minutes. This time is in addition to time spent performing reported procedures but includes the following: [x] Data Review and interpretation [x] Patient assessment and monitoring of vital signs [x] Documentation [x] Medication orders and management (2) Metabolic acidosis Current Visit: Yes Status: Acute Plan to address problem: IV fluid resuscitation therapy, BMP, repeat BMP in a.m., (3) Metabolic encephalopathy Current Visit: Yes Status: Acute Plan to address problem: Supportive care, IV fluid resuscitation therapy, neuro check, (4) Volume depletion Current Visit: Yes Status: Acute Plan to address problem: IV fluid resuscitation therapy, BMP, monitor fluid balance, repeat BMP in a.m. (5) Obesity hypoventilation syndrome Current Visit: Yes Status: Acute Plan to address problem: Balanced diet, increase physical activity discharge, outpatient pulmonary follow-up for sleep study, outpatient bariatric surgery follow-up. (6) DVT prophylaxis Current Visit: Yes Status: Acute Plan to address problem: SCD to bilateral lower extremities while in bed (7) Advance care planning Current Visit: Yes Status: Acute Plan to address problem: Disease education done, care plan discussed, diagnoses discussed, prognosis discussed, patient is full code. Patient counseled regarding medication noncompliance. Patient knowledges understanding agreement with care plan, +30 minutes.
[2021-04-23] MEDS ORDERED: SODIUM CHLORIDE 0.9% 1000 ML 3,000 ML IV ONE (11:57)
[2021-04-23] MEDS ORDERED: SODIUM CHLORIDE 0.9% 1000 ML 1,000 ML IV SCH (12:00)
[2021-04-23] MEDS: SODIUM BICARB 8.4% 50 MEQ/50 ML SYRINGE IV SCH ×2 (12:22→21:37)
[2021-04-23] MEDS: INSULIN REGULAR, HUMAN 100 UNITS in SODIUM CHLORIDE 0.9% 99 ML IV SCH (12:45)
--- NOTE | 2021-04-23 12:50 | Consultation ---
History of Present Illness Consult date: 04/23/21 Requesting physician: NELIDA AVILES Reason for consult: other (DKA) History of present illness: PULMONARY/CCM CONSULT NOTE (Full dictation # [id number]) Please see dictated notes for full details Medications and Allergies Allergies Allergy/AdvReac Type Severity Reaction Status Date / Time No Known Allergies Allergy Verified 08/21/18 13:05 Home Medications Medication Instructions Recorded Confirmed Last Taken Type Insulin Regular, Human [Humulin R] See Protocol IJ ACHS 30 Days vial 08/30/18 03/12/20 03/11/20 Rx ALBUTEROL NEB's [Proventil 0.083% 2.5 mg IH Q4H PRN #1 nebu 01/04/20 03/12/20 Unknown Rx NEBS] Acetaminophen [Acetaminophen TAB] 650 mg PO Q4H PRN tablet 01/04/20 03/12/20 03/10/[address] [Voltaren Dr] 75 mg PO BID #30 tablet 01/04/20 03/12/20 Unknown Rx Insulin Lispro [Humalog] 0 unit SUB-Q Q6HR #1 vial 01/04/20 03/12/20 Unknown Rx Insulin NPH/Regular [NovoLIN 70/30] 30 unit SUB-Q BIDDIAB #1 units 01/04/20 03/12/20 Unknown Rx hydrALAZINE [Apresoline TAB] 10 mg PO Q8HR #90 tablet 01/04/20 03/12/20 Unknown Rx Sennosides Tab [Senokot] 8.6 mg PO Q12HR #60 tablet 03/16/20 Unknown Rx oxyCODONE /ACETAMINOPHEN [Percocet 2 tab PO Q6H PRN #20 tablet 03/16/20 Unknown Rx 5/325 mg] Apixaban [Eliquis] 5 mg PO QDAY #90 tablet 03/22/20 Unknown Rx Amlodipine Besylate [Norvasc] 5 mg PO DAILY #30 tablet 03/30/20 Unknown Rx Active Meds: Active Medications Acetaminophen (Acetaminophen 325 Mg Tab) 650 mg PO Q6H PRN PRN Reason: Pain MILD(1-3)/Fever >100.5/SMITH Hydromorphone HCl (Hydromorphone 1 Mg/1 Ml Inj) 0.5 mg IV Q23H PRN PRN Reason: Pain , Severe (7-10) Potassium Chloride (Kcl 10meq/100ml) 10 meq in 100 mls @ 100 mls/hr IV Q1H AMIRA Stop: 04/23/21 13:59 Last Admin: 04/23/21 12:22 Dose: 100 mls/hr Documented by: Insulin Human Regular 100 (units/ Sodium Chloride) 100 mls @ 1 mls/hr IV TITR AMIRA; Protocol Sodium Chloride (Nacl 0.9% 1000 Ml) 1,000 mls @ 150 mls/hr IV DIRECT AMIRA Sodium Chloride (Nacl 0.9% 1000 Ml) 3,000 mls @ 999 mls/hr IV BOLUS ONE Stop: 04/23/21 14:57 Last Admin: 04/23/21 12:27 Dose: 999 mls/hr Documented by: Oxycodone/Acetaminophen (Oxycodone /Acetaminophen 5-325mg Tab) 1 tab PO Q16H PRN PRN Reason: Pain, Moderate (4-6) Sodium Bicarbonate (Sodium Bicarb 8.4% 50 Meq/50 Ml Syringe) 50 meq IV BID AMIRA Stop: 04/24/21 11:58 Last Admin: 04/23/21 12:22 Dose: 50 meq Documented by: Sodium Chloride (Sodium Chloride 0.9% 10 Ml Flush Syringe) 10 ml IV BID AMIRA Sodium Chloride (Sodium Chloride 0.9% 10 Ml Flush Syringe) 10 ml IV PRN PRN PRN Reason: LINE FLUSH Physical Examination Vital signs: Vital Signs Temp Pulse Resp BP Pulse Ox 96.4 F L 98 H 19 134/77 99 04/23/21 09:47 04/23/21 09:47 04/23/21 09:47 04/23/21 09:47 04/23/21 09:47 Results - Laboratory Findings CBC and BMP: 04/24/21 04:16 04/24/21 04:16 Abnormal lab findings: Abnormal Labs 04/23/21 04/23/21 04/23/21 10:33 10:33 10:33 MCH 26 L VBG pH 7.180 L* Sodium 122 L Potassium 3.0 L Chloride 84.8 L Carbon Dioxide 6 L* BUN 49 H Creatinine 1.4 H Glucose 775 H* POC Glucose Calcium 12.2 H* Alkaline Phosphatase 130 H Albumin 2.9 L 04/23/21 04/23/21 10:40 12:44 MCH VBG pH Sodium Potassium Chloride Carbon Dioxide BUN Creatinine Glucose POC Glucose > 600 H 550 H Calcium Alkaline Phosphatase Albumin
[2021-04-23 15:14] LABS: Calcium 10.9 mg/dL (8.4-10.2)
[2021-04-23 16:11] LABS: BUN/Creatinine Ratio 35; Blood Urea Nitrogen 39 mg/dL (7-17); Calcium 10.3 mg/dL (8.4-10.2); Hemolysis Index 30
[2021-04-23 16:49] LABS: Band Neutrophils # (Manual) 1.9 K/mm3; Dohle Bodies Few; Platelet Clumps Few; Platelet Estimate Consistent w Auto; RBC Morphology Normal; Total Cells Counted 100
[2021-04-23] MEDS ORDERED: POTASSIUM PHOSPHATE 45 MMOL in SODIUM CHLORIDE 0.9% 500 ML 500 ML IV ONE (16:59)
[2021-04-23] MEDS ORDERED: DEXTROSE 50% IN WATER (25GM) 50 ML SYRINGE IV PRN (17:08)
[2021-04-23 20:21] LABS: BUN/Creatinine Ratio 35; Blood Urea Nitrogen 39 mg/dL (7-17); Calcium 11.2 mg/dL (8.4-10.2); Hemolysis Index 16
[2021-04-23 22:51] LABS: Calcium 11.6 mg/dL (8.4-10.2)
[2021-04-23] MEDS: D5W/0.45% NACL/KCL 20 MEQ 20 MEQ/1,000 ML BAG IV SCH (23:07)
[2021-04-24 01:00] LABS: BUN/Creatinine Ratio 30; Blood Urea Nitrogen 33 mg/dL (7-17); Calcium 11.2 mg/dL (8.4-10.2); Hemolysis Index 1
[2021-04-24] MEDS: INSULIN REGULAR, HUMAN 100 UNITS in SODIUM CHLORIDE 0.9% 99 ML IV SCH ×3 (02:07→21:10)
[2021-04-24 05:18] LABS: Hematocrit 32.4 % (30.3-42.9); Hemoglobin 10.5 gm/dl (10.1-14.3); Mean Corpuscular HGB Conc 33 % (30-34); Mean Corpuscular Volume 79 fl (79-97); Platelet Count 256 K/mm3 (140-440); Red Blood Count 4.12 M/mm3 (3.65-5.03)
[2021-04-24 05:44] LABS: BUN/Creatinine Ratio 34; Blood Urea Nitrogen 31 mg/dL (7-17); Calcium 10.9 mg/dL (8.4-10.2); Hemolysis Index 26
[2021-04-24] MEDS: D5W/0.45% NACL/KCL 20 MEQ 20 MEQ/1,000 ML BAG IV SCH ×3 (06:59→21:36)
[2021-04-24] MEDS ORDERED: POTASSIUM PHOSPHATE 30 MMOL in SODIUM CHLORIDE 0.9% 500 ML 500 ML IV SCH (08:30)
[2021-04-24] MEDS ORDERED: MAGNESIUM SULFATE 2 GM/50 ML BAG IV SCH (08:30)
[2021-04-24 09:34] LABS: Bilirubin,Urine NEG (Negative); Blood,Urine SM (Negative); Color,Urine Yellow (Yellow); WBC,Urine < 1.0 /HPF (0.0-6.0)
[2021-04-24] MEDS ORDERED: FLUCONAZOLE 200 MG TAB PO SCH (10:30)
--- NOTE | 2021-04-24 10:36 | Progress Note ---
Assessment and Plan Acute metabolic acidosis Diabetic ketoacidosis Acute toxic metabolic encephalopathy Obesity Osteoarthritis Hypercalcemia - continue DKA protocol (serial electrolytes, monitor AG, volume resuscitation) - get lactate and procalcitonin levels to aid clinical decision making re: sepsis picture - begin Diflucan re: perineal infection - orthopedic consult re: ? right septic knee - continue volume resuscitation - prn supplemental oxygen for target O2 sat's > 90% acutely - aspiration precautions - prn bronchodilators with pulmonary hygiene per RT - avoid nephrotoxins, renally dose all medications - avoid benzodiazepine's, reduce the possibility of delirium - prn analgesia per CPOT score - Maintenance of sleep-wake cycle, avoid delirium - G.I. & VTE prophylaxis - PT/OT/ROM exercises - continue mobility protocols for pressure ulcer prophylaxis - Monitor hemodynamics closely - continue other care per attending / other consultants - discharge planning ongoing concurrentl .... Re-evaluate in am & prn CONDITION: CRITICAL PROGNOSIS: GUARDED CODE STATUS: FULL CODE The high probability of a clinically significant, sudden or life-threatening deterioration of the [immunologic, endocrinologic & neurologic] system(s) required my full and direct attention, intervention and personal management. The aggregate critical care time was [33] minutes without overlap. Time includes spent on; [x] Data Review and interpretation [x] Patient assessment and monitoring of vital signs [x] Documentation [x] Medication orders and management Subjective Date of service: 04/24/21 Principal diagnosis: HAGMA; DKA; AMS; Obesity; Osteoarthritis; Hypercalcemia Interval history: Patient is seen today for: Acute metabolic acidosis; Diabetic ketoacidosis; Acute toxic metabolic encephalopathy; Obesity; Osteoarthritis; Hypercalcemia Seen and examined at bedside; 24hour events reviewed; nursing and respiratory care staff consulted; no adverse overnight events reported to me; resting peacefully in bed; a little more alert overall; denies chest pain; perineal re gion yeast-like rash reported; no overt hypotemsion; No N/V/F/C Objective Vital Signs - 12hr 04/23/21 04/23/21 04/23/21 22:30 22:41 22:51 Temperature Pulse Rate 112 H 112 H 113 H Respiratory 47 H 46 H 45 H Rate Blood Pressure 96/65 96/65 100/66 O2 Sat by Pulse 97 97 98 Oximetry 12/07/21 12/07/21 12/07/21 23:00 23:11 23:21 Temperature Pulse Rate 112 H 112 H 113 H Respiratory 42 H 44 H 41 H Rate Blood Pressure 98/61 98/61 100/61 O2 Sat by Pulse 97 97 97 Oximetry 04/23/21 04/23/21 04/23/21 23:30 23:31 23:41 Temperature 98.7 F Pulse Rate 111 H 112 H Respiratory 39 H 42 H Rate Blood Pressure 101/61 101/61 O2 Sat by Pulse 97 97 Oximetry 04/23/21 04/24/21 04/24/21 23:51 00:00 00:06 Temperature Pulse Rate 113 H 112 H Respiratory 48 H 38 H 24 Rate Blood Pressure 98/65 105/63 O2 Sat by Pulse 97 98 98 Oximetry 04/24/21 04/24/21 04/24/21 00:11 00:21 00:30 Temperature Pulse Rate 111 H 114 H 112 H Respiratory 31 H 38 H 39 H Rate Blood Pressure 105/63 102/72 112/63 O2 Sat by Pulse 97 98 98 Oximetry 04/24/21 04/24/21 04/24/21 00:41 00:51 01:00 Temperature Pulse Rate 113 H 113 H 112 H Respiratory 38 H 41 H 35 H Rate Blood Pressure 112/63 108/59 108/64 O2 Sat by Pulse 96 96 96 Oximetry 04/24/21 04/24/21 04/24/21 01:11 01:21 01:30 Temperature Pulse Rate 111 H 110 H 111 H Respiratory 38 H 39 H 37 H Rate Blood Pressure 108/64 111/64 107/66 O2 Sat by Pulse 97 97 97 Oximetry 04/24/21 04/24/21 04/24/21 01:41 01:51 01:58 Temperature Pulse Rate 112 H 112 H 112 H Respiratory 36 H 38 H Rate Blood Pressure 107/66 115/69 O2 Sat by Pulse 97 97 Oximetry 04/24/21 04/24/21 04/24/21 02:00 02:11 02:21 Temperature Pulse Rate 110 H 112 H 113 H Respiratory 35 H 30 H 35 H Rate Blood Pressure 110/64 110/64 117/70 O2 Sat by Pulse 96 97 96 Oximetry 04/24/21 04/24/21 04/24/21 02:31 02:41 02:51 Temperature Pulse Rate 113 H 113 H 113 H Respiratory 39 H 37 H 38 H Rate Blood Pressure 116/61 116/61 124/64 O2 Sat by Pulse 97 97 97 Oximetry 04/24/21 04/24/21 04/24/21 03:00 03:11 03:21 Temperature 98.1 F Pulse Rate 111 H 112 H 112 H Respiratory 36 H 39 H 32 H Rate Blood Pressure 111/57 111/57 110/64 O2 Sat by Pulse 96 96 96 Oximetry 04/24/21 04/24/21 04/24/21 03:30 03:41 03:51 Temperature Pulse Rate 111 H 111 H 111 H Respiratory 36 H 43 H 38 H Rate Blood Pressure 108/63 108/63 123/70 O2 Sat by Pulse 96 96 96 Oximetry 04/24/21 04/24/21 04/24/21 04:00 04:11 04:30 Temperature Pulse Rate 113 H 112 H 111 H Respiratory 37 H 42 H 29 H Rate Blood Pressure 113/65 113/65 119/66 O2 Sat by Pulse 96 96 96 Oximetry 04/24/21 04/24/21 04/24/21 05:00 05:31 06:00 Temperature Pulse Rate 112 H 112 H 113 H Respiratory 38 H 40 H 34 H Rate Blood Pressure 119/64 145/77 110/68 O2 Sat by Pulse 96 96 96 Oximetry Constitutional: appears uncomfortable Eyes: non-icteric ENT: oropharynx dry Neck: supple, no lymphadenopathy, no JVD Effort: mildly labored Ascultation: Bilateral: clear, diminished breath sounds Percussion: Bilateral: not dull Cardiovascular: regular rate and rhythm Gastrointestinal: hypoactive bowel sounds, soft, non-tender, non-distended Integumentary: rash (perineal) Extremities: no cyanosis, no edema, pulses normal, no ischemia or petechiae Neurologic: non-focal exam (grossly), pupils equal and round, motor strength normal and, other (somnolent) Psychiatric: other (unable to assess re: AMS) CBC and BMP: 04/24/21 04:16 04/24/21 18:24 Abnormal lab findings: Abnormal Labs 04/23/21 04/23/21 04/23/21 10:33 10:33 10:33 MCH 26 L Lymphocytes % (Manual) 7.0 L Nucleated RBC % 2.0 H Lymphocytes # (Manual) 0.5 L VBG pH 7.180 L* Sodium 122 L Potassium 3.0 L Chloride 84.8 L Carbon Dioxide 6 L* BUN 49 H Creatinine 1.4 H Glucose 775 H* POC Glucose Hemoglobin A1c Calcium 12.2 H* Phosphorus Alkaline Phosphatase 130 H Albumin 2.9 L 04/23/21 04/23/21 04/23/21 10:40 12:44 14:01 MCH Lymphocytes % (Manual) Nucleated RBC % Lymphocytes # (Manual) VBG pH Sodium Potassium Chloride Carbon Dioxide BUN Creatinine Glucose POC Glucose > 600 H 550 H Hemoglobin A1c Calcium Phosphorus 1.50 L Alkaline Phosphatase Albumin 04/23/21 04/23/21 04/23/21 14:01 14:56 15:43 MCH Lymphocytes % (Manual) Nucleated RBC % Lymphocytes # (Manual) VBG pH Sodium 125 L 131 L Potassium 3.0 L 2.9 L* Chloride 89.2 L Carbon Dioxide 6 L* 8 L* BUN 45 H 39 H Creatinine 1.3 H Glucose 594 H* 434 H POC Glucose 425 H Hemoglobin A1c Calcium 10.9 H 10.3 H Phosphorus Alkaline Phosphatase Albumin 04/23/21 04/23/21 04/23/21 15:48 17:21 18:07 MCH Lymphocytes % (Manual) Nucleated RBC % Lymphocytes # (Manual) VBG pH Sodium Potassium Chloride Carbon Dioxide BUN Creatinine Glucose POC Glucose 410 H 407 H 428 H Hemoglobin A1c Calcium Phosphorus Alkaline Phosphatase Albumin 04/23/21 04/23/21 04/23/21 19:13 19:54 19:54 MCH Lymphocytes % (Manual) Nucleated RBC % Lymphocytes # (Manual) VBG pH Sodium 131 L Potassium 3.1 L Chloride 95.9 L Carbon Dioxide 7 L* BUN 39 H Creatinine Glucose 391 H POC Glucose 350 H Hemoglobin A1c Calcium 11.2 H Phosphorus 1.10 L D Alkaline Phosphatase Albumin 04/23/21 04/23/21 04/23/21 20:12 20:59 22:05 MCH Lymphocytes % (Manual) Nucleated RBC % Lymphocytes # (Manual) VBG pH Sodium Potassium Chloride Carbon Dioxide BUN Creatinine Glucose POC Glucose 365 H 286 H 257 H Hemoglobin A1c Calcium Phosphorus Alkaline Phosphatase Albumin 04/23/21 04/23/21 04/23/21 22:23 22:59 23:57 MCH Lymphocytes % (Manual) Nucleated RBC % Lymphocytes # (Manual) VBG pH Sodium 135 L Potassium 3.2 L Chloride Carbon Dioxide 10 L BUN 35 H Creatinine Glucose 300 H POC Glucose 238 H 223 H Hemoglobin A1c Calcium 11.6 H Phosphorus Alkaline Phosphatase Albumin 04/24/21 04/24/21 04/24/21 00:10 00:56 01:58 MCH Lymphocytes % (Manual) Nucleated RBC % Lymphocytes # (Manual) VBG pH Sodium Potassium 3.2 L Chloride Carbon Dioxide 13 L BUN 33 H Creatinine Glucose 267 H POC Glucose 254 H 264 H Hemoglobin A1c Calcium 11.2 H Phosphorus 1.20 L Alkaline Phosphatase Albumin 04/24/21 04/24/21 04/24/21 02:58 03:57 04:16 MCH Lymphocytes % (Manual) Nucleated RBC % Lymphocytes # (Manual) VBG pH Sodium Potassium Chloride 108.0 H Carbon Dioxide 13 L BUN 31 H Creatinine Glucose 243 H POC Glucose 251 H 200 H Hemoglobin A1c Calcium 10.9 H Phosphorus 1.80 L D Alkaline Phosphatase Albumin 04/24/21 04/24/21 04/24/21 04:16 04:16 04:59 MCH 26 L Lymphocytes % (Manual) Nucleated RBC % Lymphocytes # (Manual) VBG pH Sodium Potassium Chloride Carbon Dioxide BUN Creatinine Glucose POC Glucose 208 H Hemoglobin A1c 18.3 H Calcium Phosphorus Alkaline Phosphatase Albumin 04/24/21 04/24/21 04/24/21 05:53 06:51 07:58 MCH Lymphocytes % (Manual) Nucleated RBC % Lymphocytes # (Manual) VBG pH Sodium Potassium Chloride Carbon Dioxide BUN Creatinine Glucose POC Glucose 213 H 161 H 149 H Hemoglobin A1c Calcium Phosphorus Alkaline Phosphatase Albumin 04/24/21 04/24/21 09:21 10:06 MCH Lymphocytes % (Manual) Nucleated RBC % Lymphocytes # (Manual) VBG pH Sodium Potassium Chloride Carbon Dioxide BUN Creatinine Glucose POC Glucose 178 H 164 H Hemoglobin A1c Calcium Phosphorus Alkaline Phosphatase Albumin Allied health notes reviewed: nursing
--- NOTE | 2021-04-24 10:44 | Progress Note ---
<ANA MUÑOZ - Last Filed: 04/24/21 18:07> Assessment and Plan Assessment and plan: This is a 51-year-old female with past medical history of DM, noncomplaint with medications, obesity, arthritis, and Rt. Knee surgery admitted for DKA Hospital Course to Date: 04/24/21- Patient remains on DKA protocol. Still very lethargic this am, following simple commands. Rt. knee wound and swelling noted, and nursing staff also reported thick, white vaginal discharge. C/f sepsis, blood culture ordered, this am UA noted. Will start patient on PO difflucan for possible yeast infection, pending culture data. Anion GAP is still 18 this am, will continue DKA protocol for now. Continue to monitor electrolytes, serial BMP ordered. Assessment and Plan #Acute Metabolic Encephalopathy - Probably related to metabolic acidosis - On DKA protocol - Avoid benzodiazepine to reduce the possibility of delirium - PRN analgesia for CPOT greater than 3 - Maintenance of sleep-wake cycle #Tachycardia - ST on the monitor - Probably reactive to current condition - Hemodynamic stable - Maintain adequate perfusion - Continue rehydration with cont. IVF - Continue blood pressure monitor per protocol - Maintain MAP above 65 #GI: NPO - Keep patient NPO while on DKA protocol - Continue continuos IVF - PPI- Pepcid added #Hypokalemia #Hypophosphetemia - Probably due to DKA - Continue IVF - Monitor and replace electrolytes as needed - Serial BMP ordered - Strict intake and output - Avoid nephrotoxic medications; Renally dose medications #Sepsis #Vaginal Yeast Infection #?? Right Septic Knee - Thick, white vaginal discharge - Rt. Knee wound and swelling, H/o of Knee surgery - Patient is afebrile, wbcs wnl - UA no indication for infection - Blood Culture X2 ordered - Pendind lactic and Procal - Difflucan started X5days - F/U on culture data - Daily CBC monitor - Consider ID consult if febrile or/and if leukocytosis occur #Diabetic Ketoacidosis (DKA) - Presented with elevated BG and acidosis - UA + glucose, protein, and ketones - A1c 18.3 - Continue DKA protocol until anion gap is less than 14 - Continue Continue IVF - Monitor and replace electrolytes as needed - Serial BMP ordered #DVT Prophylaxis - AC- Lovenox added - SCD to bilateral lower extremities while in bed History Interval history: Patient seen and examined at the bedside. Remains lethargic, on RA, following si mple commands. Remains on DKA protocol Hospitalist Physical - Constitutional Vitals: Temp Pulse Resp BP Pulse Ox 98.1 F 113 H 31 H 110/68 97 04/24/21 03:21 04/24/21 06:00 04/24/21 08:00 04/24/21 06:00 04/24/21 08:00 General appearance: Present: no acute distress, mild distress, obese, other (Lethargic) - EENT Eyes: Present: PERRL ENT: hearing intact, other (Dry oral mucosa) - Neck Neck: Present: normal ROM - Respiratory Respiratory effort: normal Respiratory: bilateral: diminished - Cardiovascular Rhythm: regular Heart Sounds: Present: S1 & S2 - Extremities Extremities: no ischemia, pulses intact, pulses symmetrical Extremity abnormal: edema - Peripheral Assessment Right Lower Extremity Edema Type: Pitting Edema Degree: 2+ Capillary Refill: < 3 seconds Skin Temperature: Warm Peripheral Pulses: within normal limits - Abdominal General gastrointestinal: soft, non-tender, normal bowel sounds - Integumentary Integumentary: Present: warm, dry - Psychiatric Psychiatric: cooperative, other (Lethargic) - Neurologic Neurologic: moves all extremities, other (Lethargic, follow simple commands) - Allied Health Allied health notes reviewed: nursing HEART Score - HEART Score Troponin: Troponin T < 0.010 ng/mL (0.00-0.029) 04/23/21 10:33 Results - Labs CBC & Chem 7: 04/24/21 04:16 04/24/21 12:14 Labs: Laboratory Last Values WBC 9.0 K/mm3 (4.5-11.0) 04/24/21 04:16 RBC 4.12 M/mm3 (3.65-5.03) 04/24/21 04:16 Hgb 10.5 gm/dl (10.1-14.3) 04/24/21 04:16 Hct 32.4 % (30.3-42.9) 04/24/21 04:16 MCV 79 fl (79-97) 04/24/21 04:16 MCH 26 pg (28-32) L 04/24/21 04:16 MCHC 33 % (30-34) 04/24/21 04:16 RDW 14.0 % (13.2-15.2) 04/24/21 04:16 Plt Count 256 K/mm3 (140-440) 04/24/21 04:16 Add Manual Diff Complete 04/23/21 10:33 Total Counted 100 04/23/21 10:33 Seg Neutrophils % Dry Cans Operator 04/23/21 10:33 Seg Neuts % (Manual) 62.0 % (40.0-70.0) 04/23/21 10:33 Band Neutrophils % 26.0 % 04/23/21 10:33 Lymphocytes % (Manual) 7.0 % (13.4-35.0) L 04/23/21 10:33 Monocytes % (Manual) 2.0 % (0.0-7.3) 04/23/21 10:33 Metamyelocytes % 3.0 % 04/23/21 10:33 Nucleated RBC % 2.0 % (0.0-0.9) H 04/23/21 10:33 Seg Neutrophils # Man 4.6 K/mm3 (1.8-7.7) 04/23/21 10:33 Band Neutrophils # 1.9 K/mm3 04/23/21 10:33 Lymphocytes # (Manual) 0.5 K/mm3 (1.2-5.4) L 04/23/21 10:33 Abs React Lymphs (Man) 0.0 K/mm3 04/23/21 10:33 Monocytes # (Manual) 0.1 K/mm3 (0.0-0.8) 04/23/21 10:33 Eosinophils # (Manual) 0.0 K/mm3 (0.0-0.4) 04/23/21 10:33 Basophils # (Manual) 0.0 K/mm3 (0.0-0.1) 04/23/21 10:33 Metamyelocytes # 0.2 K/mm3 04/23/21 10:33 Myelocytes # 0.0 K/mm3 04/23/21 10:33 Promyelocytes # 0.0 K/mm3 04/23/21 10:33 Blast Cells # 0.0 K/mm3 04/23/21 10:33 WBC Morphology Not Reportable 04/23/21 10:33 Hypersegmented Neuts Not Reportable 04/23/21 10:33 Hyposegmented Neuts Not Reportable 04/23/21 10:33 Hypogranular Neuts Not Reportable 04/23/21 10:33 Smudge Cells Not Reportable 04/23/21 10:33 Toxic Granulation Not Reportable 04/23/21 10:33 Toxic Vacuolation Not Reportable 04/23/21 10:33 Dohle Bodies Few 04/23/21 10:33 Pelger-Huet Anomaly Not Reportable 04/23/21 10:33 Thierry Rods Not Reportable 04/23/21 10:33 Platelet Estimate Consistent w auto 04/23/21 10:33 Clumped Platelets Few 04/23/21 10:33 Plt Clumps, EDTA Not Reportable 04/23/21 10:33 Large Platelets Not Reportable 04/23/21 10:33 Giant Platelets Not Reportable 04/23/21 10:33 Platelet Satelliting Not Reportable 04/23/21 10:33 Plt Morphology Comment Not Reportable 04/23/21 10:33 RBC Morphology Normal 04/23/21 10:33 Dimorphic RBCs Not Reportable 04/23/21 10:33 Polychromasia Not Reportable 04/23/21 10:33 Hypochromasia Not Reportable 04/23/21 10:33 Poikilocytosis Not Reportable 04/23/21 10:33 Anisocytosis Not Reportable 04/23/21 10:33 Microcytosis Not Reportable 04/23/21 10:33 Macrocytosis Not Reportable 04/23/21 10:33 Spherocytes Not Reportable 04/23/21 10:33 Pappenheimer Bodies Not Reportable 04/23/21 10:33 Sickle Cells Not Reportable 04/23/21 10:33 Target Cells Not Reportable 04/23/21 10:33 Tear Drop Cells Not Reportable 04/23/21 10:33 Ovalocytes Not Reportable 04/23/21 10:33 Helmet Cells Not Reportable 04/23/21 10:33 Mendieta-Silas Bodies Not Reportable 04/23/21 10:33 Noxen Rings Not Reportable 04/23/21 10:33 Kamari Cells Not Reportable 04/23/21 10:33 Bite Cells Not Reportable 04/23/21 10:33 Crenated Cell Not Reportable 04/23/21 10:33 Elliptocytes Not Reportable 04/23/21 10:33 Acanthocytes (Spur) Not Reportable 04/23/21 10:33 Rouleaux Not Reportable 04/23/21 10:33 Hemoglobin C Crystals Not Reportable 04/23/21 10:33 Schistocytes Not Reportable 04/23/21 10:33 Malaria parasites Not Reportable 04/23/21 10:33 Juan Bodies Not Reportable 04/23/21 10:33 Hem Pathologist Commnt No 04/23/21 10:33 VBG pH 7.180 (7.320-7.420) L* 04/23/21 10:33 Sodium 139 mmol/L (137-145) 04/24/21 04:16 Potassium 3.9 mmol/L (3.6-5.0) D 04/24/21 04:16 Chloride 108.0 mmol/L (98-107) H 04/24/21 04:16 Carbon Dioxide 13 mmol/L (22-30) L 04/24/21 04:16 Anion Gap 22 mmol/L 04/24/21 04:16 BUN 31 mg/dL (7-17) H 04/24/21 04:16 Creatinine 0.9 mg/dL (0.6-1.2) 04/24/21 04:16 Estimated GFR > 60 ml/min 04/24/21 04:16 BUN/Creatinine Ratio 34 % 04/24/21 04:16 Glucose 243 mg/dL (65-100) H 04/24/21 04:16 POC Glucose 164 mg/dL (70-105) H 04/24/21 10:06 Hemoglobin A1c 18.3 % (4-6) H 04/24/21 04:16 Calcium 10.9 mg/dL (8.4-10.2) H 04/24/21 04:16 Phosphorus 1.80 mg/dL (2.5-4.5) L D 04/24/21 04:16 Magnesium 1.70 mg/dL (1.7-2.3) 04/24/21 04:16 Total Bilirubin 0.60 mg/dL (0.1-1.2) 04/23/21 10:33 AST 10 units/L (5-40) 04/23/21 10:33 ALT 9 units/L (7-56) 04/23/21 10:33 Alkaline Phosphatase 130 units/L (35-129) H 04/23/21 10:33 Ammonia 37.0 umol/L (25-60) 04/23/21 10:33 Total Creatine Kinase 83 units/L (30-135) 04/23/21 10:33 Troponin T < 0.010 ng/mL (0.00-0.029) 04/23/21 10:33 Total Protein 8.2 g/dL (6.3-8.2) 04/23/21 10:33 Albumin 2.9 g/dL (3.9-5) L 04/23/21 10:33 Albumin/Globulin Ratio 0.5 % 04/23/21 10:33 TSH 1.400 mlU/mL (0.270-4.200) 04/23/21 10:33 Urine Color Yellow (Yellow) 04/24/21 08:40 Urine Turbidity Clear (Clear) 04/24/21 08:40 Urine pH 6.0 (5.0-7.0) 04/24/21 08:40 Ur Specific Miracle 1.022 (1.003-1.030) 04/24/21 08:40 Urine Protein 100 mg/dl mg/dL (Negative) 04/24/21 08:40 Urine Glucose (UA) >=500 mg/dL (Negative) 04/24/21 08:40 Urine Ketones 20 mg/dL (Negative) 04/24/21 08:40 Urine Blood Sm (Negative) 04/24/21 08:40 Urine Nitrite Neg (Negative) 04/24/21 08:40 Urine Bilirubin Neg (Negative) 04/24/21 08:40 Urine Urobilinogen 2.0 mg/dL (<2.0) 04/24/21 08:40 Ur Leukocyte Esterase Neg (Negative) 04/24/21 08:40 Urine WBC (Auto) < 1.0 /HPF (0.0-6.0) 04/24/21 08:40 Urine RBC (Auto) 1.0 /HPF (0.0-6.0) 04/24/21 08:40 U Epithel Cells (Auto) < 1.0 /HPF (0-13.0) 04/24/21 08:40 Sanchez/IV: Voiding Method External Female Catheter Active Medications - Current Medications Current Medications: Generic Name Dose Route Start Last Admin Trade Name Freq PRN Reason Stop Dose Admin Acetaminophen 650 mg 04/23/21 11:54 Acetaminophen 325 Mg Tab PO Q6H PRN Pain MILD(1-3)/Fever >100.5/SMITH Dextrose 0 ml 04/23/21 17:08 Dextrose 50% In Water (25gm) 50 Ml Syringe IV Q30MIN PRN Hypoglycemia Protocol Fluconazole 200 mg 04/24/21 10:30 Fluconazole 200 Mg Tab PO 04/24/21 14:30 ONCE@1030 AMIRA Protocol Fluconazole 100 mg 04/25/21 10:00 Fluconazole 100 Mg Tab PO 04/28/21 10:01 [facility] Protocol Hydromorphone HCl 0.5 mg 04/23/21 11:54 Hydromorphone 1 Mg/1 Ml Inj IV Q23H PRN Pain , Severe (7-10) Insulin Human Regular 100 100 mls @ 1 mls/hr 04/23/21 12:00 04/24/21 10:25 units/ Sodium Chloride IV 10 units/hr TITR AMIRA 10 mls/hr Titration Protocol 1 UNITS/HR Potassium Chloride/Dextrose/Sod Cl 20 meq in 1,000 mls @ 125 mls/hr 04/23/21 22:00 04/24/21 06:59 D5w/0.45% Nacl/Kcl 20 Meq IV 125 mls/hr DIRECT AMIRA Administration Potassium Phosphate 30 mmol/ 510 mls @ 85 mls/hr 04/24/21 08:30 Sodium Chloride IV 04/24/21 12:30 ONCE@0830 AMIRA Magnesium Sulfate 2 gm in 50 mls @ 25 mls/hr 04/24/21 08:30 04/24/21 08:31 Magnesium Sulfate 2gm/50ml IV 04/24/21 12:30 25 mls/hr ONCE@0830 AMIRA Administration Oxycodone/Acetaminophen 1 tab 04/23/21 11:54 Oxycodone /Acetaminophen 5-325mg Tab PO Q16H PRN Pain, Moderate (4-6) Sodium Bicarbonate 50 meq 04/23/21 11:57 04/23/21 21:37 Sodium Bicarb 8.4% 50 Meq/50 Ml Syringe IV 04/24/21 11:58 50 meq BID AMIRA Administration Sodium Chloride 10 ml 04/23/21 22:00 Sodium Chloride 0.9% 10 Ml Flush Syringe IV BID AMIRA Sodium Chloride 10 ml 04/23/21 11:54 04/24/21 08:32 Sodium Chloride 0.9% 10 Ml Flush Syringe IV 10 ml PRN PRN Administration LINE FLUSH <ED ORTIZ - Last Filed: 04/25/21 08:56> Assessment and Plan Assessment and plan: I saw and evaluated the patient. I agree with the findings and the plan of care as documented in the Nurse Practitioner's~note, with the following corrections and additions. Hospitalist Physical - Constitutional Vitals: Temp Pulse Resp BP Pulse Ox 97.6 F 121 H 32 H 133/75 96 04/25/21 07:29 04/25/21 08:00 04/25/21 08:00 04/25/21 08:00 04/25/21 08:00 HEART Score - HEART Score Troponin: Troponin T < 0.010 ng/mL (0.00-0.029) 04/23/21 10:33 Results - Labs CBC & Chem 7: 04/25/21 08:10 04/25/21 08:10 Labs: Laboratory Last Values WBC 5.7 K/mm3 (4.5-11.0) 04/25/21 08:10 RBC 3.65 M/mm3 (3.65-5.03) 04/25/21 08:10 Hgb 9.5 gm/dl (10.1-14.3) L 04/25/21 08:10 Hct 28.8 % (30.3-42.9) L 04/25/21 08:10 MCV 79 fl (79-97) 04/25/21 08:10 MCH 26 pg (28-32) L 04/25/21 08:10 MCHC 33 % (30-34) 04/25/21 08:10 RDW 14.2 % (13.2-15.2) 04/25/21 08:10 Plt Count 189 K/mm3 (140-440) 04/25/21 08:10 Add Manual Diff Complete 04/23/21 10:33 Total Counted 100 04/23/21 10:33 Seg Neutrophils % Dry Cans Operator 04/23/21 10:33 Seg Neuts % (Manual) 62.0 % (40.0-70.0) 04/23/21 10:33 Band Neutrophils % 26.0 % 04/23/21 10:33 Lymphocytes % (Manual) 7.0 % (13.4-35.0) L 04/23/21 10:33 Monocytes % (Manual) 2.0 % (0.0-7.3) 04/23/21 10:33 Metamyelocytes % 3.0 % 04/23/21 10:33 Nucleated RBC % 2.0 % (0.0-0.9) H 04/23/21 10:33 Seg Neutrophils # Man 4.6 K/mm3 (1.8-7.7) 04/23/21 10:33 Band Neutrophils # 1.9 K/mm3 04/23/21 10:33 Lymphocytes # (Manual) 0.5 K/mm3 (1.2-5.4) L 04/23/21 10:33 Abs React Lymphs (Man) 0.0 K/mm3 04/23/21 10:33 Monocytes # (Manual) 0.1 K/mm3 (0.0-0.8) 04/23/21 10:33 Eosinophils # (Manual) 0.0 K/mm3 (0.0-0.4) 04/23/21 10:33 Basophils # (Manual) 0.0 K/mm3 (0.0-0.1) 04/23/21 10:33 Metamyelocytes # 0.2 K/mm3 04/23/21 10:33 Myelocytes # 0.0 K/mm3 04/23/21 10:33 Promyelocytes # 0.0 K/mm3 04/23/21 10:33 Blast Cells # 0.0 K/mm3 04/23/21 10:33 WBC Morphology Not Reportable 04/23/21 10:33 Hypersegmented Neuts Not Reportable 04/23/21 10:33 Hyposegmented Neuts Not Reportable 04/23/21 10:33 Hypogranular Neuts Not Reportable 04/23/21 10:33 Smudge Cells Not Reportable 04/23/21 10:33 Toxic Granulation Not Reportable 04/23/21 10:33 Toxic Vacuolation Not Reportable 04/23/21 10:33 Dohle Bodies Few 04/23/21 10:33 Pelger-Huet Anomaly Not Reportable 04/23/21 10:33 Thierry Rods Not Reportable 04/23/21 10:33 Platelet Estimate Consistent w auto 04/23/21 10:33 Clumped Platelets Few 04/23/21 10:33 Plt Clumps, EDTA Not Reportable 04/23/21 10:33 Large Platelets Not Reportable 04/23/21 10:33 Giant Platelets Not Reportable 04/23/21 10:33 Platelet Satelliting Not Reportable 04/23/21 10:33 Plt Morphology Comment Not Reportable 04/23/21 10:33 RBC Morphology Normal 04/23/21 10:33 Dimorphic RBCs Not Reportable 04/23/21 10:33 Polychromasia Not Reportable 04/23/21 10:33 Hypochromasia Not Reportable 04/23/21 10:33 Poikilocytosis Not Reportable 04/23/21 10:33 Anisocytosis Not Reportable 04/23/21 10:33 Microcytosis Not Reportable 04/23/21 10:33 Macrocytosis Not Reportable 04/23/21 10:33 Spherocytes Not Reportable 04/23/21 10:33 Pappenheimer Bodies Not Reportable 04/23/21 10:33 Sickle Cells Not Reportable 04/23/21 10:33 Target Cells Not Reportable 04/23/21 10:33 Tear Drop Cells Not Reportable 04/23/21 10:33 Ovalocytes Not Reportable 04/23/21 10:33 Helmet Cells Not Reportable 04/23/21 10:33 Mendieta-Silas Bodies Not Reportable 04/23/21 10:33 Noxen Rings Not Reportable 04/23/21 10:33 Kamari Cells Not Reportable 04/23/21 10:33 Bite Cells Not Reportable 04/23/21 10:33 Crenated Cell Not Reportable 04/23/21 10:33 Elliptocytes Not Reportable 04/23/21 10:33 Acanthocytes (Spur) Not Reportable 04/23/21 10:33 Rouleaux Not Reportable 04/23/21 10:33 Hemoglobin C Crystals Not Reportable 04/23/21 10:33 Schistocytes Not Reportable 04/23/21 10:33 Malaria parasites Not Reportable 04/23/21 10:33 Juan Bodies Not Reportable 04/23/21 10:33 Hem Pathologist Commnt No 04/23/21 10:33 VBG pH 7.180 (7.320-7.420) L* 04/23/21 10:33 Sodium 140 mmol/L (137-145) 04/25/21 08:10 Potassium 3.3 mmol/L (3.6-5.0) L 04/25/21 08:10 Chloride 109.0 mmol/L (98-107) H 04/25/21 08:10 Carbon Dioxide 16 mmol/L (22-30) L 04/25/21 08:10 Anion Gap 18 mmol/L 04/25/21 08:10 BUN 23 mg/dL (7-17) H 04/25/21 08:10 Creatinine 0.8 mg/dL (0.6-1.2) 04/25/21 08:10 Estimated GFR > 60 ml/min 04/25/21 08:10 BUN/Creatinine Ratio 29 % 04/25/21 08:10 Glucose 151 mg/dL (65-100) H 04/25/21 08:10 POC Glucose 132 mg/dL (70-105) H 04/25/21 08:53 Hemoglobin A1c 18.3 % (4-6) H 04/24/21 04:16 Lactic Acid 2.10 mmol/L (0.7-2.0) H* 04/25/21 08:10 Uric Acid 7.5 mg/dL (3.5-7.6) 04/24/21 12:14 Calcium 9.4 mg/dL (8.4-10.2) 04/25/21 08:10 Phosphorus 2.20 mg/dL (2.5-4.5) L D 04/25/21 08:10 Magnesium 1.60 mg/dL (1.7-2.3) L 04/25/21 08:10 Total Bilirubin 0.60 mg/dL (0.1-1.2) 04/23/21 10:33 AST 10 units/L (5-40) 04/23/21 10:33 ALT 9 units/L (7-56) 04/23/21 10:33 Alkaline Phosphatase 130 units/L (35-129) H 04/23/21 10:33 Ammonia 37.0 umol/L (25-60) 04/23/21 10:33 Total Creatine Kinase 83 units/L (30-135) 04/23/21 10:33 Troponin T < 0.010 ng/mL (0.00-0.029) 04/23/21 10:33 C-Reactive Protein 24.30 mg/dL (0.00-1.30) H 04/24/21 18:24 Total Protein 8.2 g/dL (6.3-8.2) 04/23/21 10:33 Albumin 2.9 g/dL (3.9-5) L 04/23/21 10:33 Albumin/Globulin Ratio 0.5 % 04/23/21 10:33 TSH 1.400 mlU/mL (0.270-4.200) 04/23/21 10:33 Urine Color Yellow (Yellow) 04/24/21 08:40 Urine Turbidity Clear (Clear) 04/24/21 08:40 Urine pH 6.0 (5.0-7.0) 04/24/21 08:40 Ur Specific Miracle 1.022 (1.003-1.030) 04/24/21 08:40 Urine Protein 100 mg/dl mg/dL (Negative) 04/24/21 08:40 Urine Glucose (UA) >=500 mg/dL (Negative) 04/24/21 08:40 Urine Ketones 20 mg/dL (Negative) 04/24/21 08:40 Urine Blood Sm (Negative) 04/24/21 08:40 Urine Nitrite Neg (Negative) 04/24/21 08:40 Urine Bilirubin Neg (Negative) 04/24/21 08:40 Urine Urobilinogen 2.0 mg/dL (<2.0) 04/24/21 08:40 Ur Leukocyte Esterase Neg (Negative) 04/24/21 08:40 Urine WBC (Auto) < 1.0 /HPF (0.0-6.0) 04/24/21 08:40 Urine RBC (Auto) 1.0 /HPF (0.0-6.0) 04/24/21 08:40 U Epithel Cells (Auto) < 1.0 /HPF (0-13.0) 04/24/21 08:40 Microbiology: Microbiology 04/24/21 12:14 Peripheral/Venous Blood Culture - Preliminary 04/24/21 12:34 Peripheral/Venous Blood Culture - Preliminary Sanchez/IV: Voiding Method External Female Catheter Active Medications - Current Medications Current Medications: Generic Name Dose Route Start Last Admin Trade Name Freq PRN Reason Stop Dose Admin Acetaminophen 650 mg 04/23/21 11:54 Acetaminophen 325 Mg Tab PO Q6H PRN Pain MILD(1-3)/Fever >100.5/SMITH Dextrose 0 ml 04/23/21 17:08 Dextrose 50% In Water (25gm) 50 Ml Syringe IV Q30MIN PRN Hypoglycemia Protocol Enoxaparin Sodium 40 mg 04/24/21 22:00 04/24/21 21:18 Enoxaparin 40 Mg/0.4 Ml Inj SUB-Q 40 mg BID AMIRA Administration Protocol Famotidine 20 mg 04/25/21 10:00 Famotidine 20 Mg/2 Ml Inj IV QDAY AMIRA Hydromorphone HCl 0.5 mg 04/23/21 11:54 04/24/21 21:57 Hydromorphone 1 Mg/1 Ml Inj IV 0.5 mg Q23H PRN Administration Pain , Severe (7-10) Insulin Human Regular 100 100 mls @ 1 mls/hr 04/23/21 12:00 04/25/21 07:14 units/ Sodium Chloride IV 7 units/hr TITR AMIRA 7 mls/hr Titration Protocol 1 UNITS/HR Potassium Chloride/Dextrose/Sod Cl 20 meq in 1,000 mls @ 125 mls/hr 04/23/21 22:00 04/25/21 05:52 D5w/0.45% Nacl/Kcl 20 Meq IV 125 mls/hr DIRECT AMIRA Administration Fluconazole 100 mg in 50 mls @ 50 mls/hr 04/25/21 10:00 Diflucan/Ns 100 Mg/50 Ml IV 04/28/21 10:59 Q24H AMIRA Protocol Azithromycin 500 mg in 250 mls @ 250 mls/hr 04/24/21 17:00 04/24/21 20:53 Zithromax/Ns IV 250 mls/hr Q24H AMIRA Administration Vancomycin HCl 2,000 mg/ 540 mls @ 250 mls/hr 04/25/21 09:00 Sodium Chloride IV Q12H AMIRA Cefepime HCl 2 gm in 100 mls @ 200 mls/hr 04/25/21 14:00 Cefepime/Ns 2 Gm/100 Ml IV Q8HR AMIRA Protocol Oxycodone/Acetaminophen 1 tab 04/23/21 11:54 Oxycodone /Acetaminophen 5-325mg Tab PO Q16H PRN Pain, Moderate (4-6) Sodium Chloride 10 ml 04/23/21 22:00 04/24/21 21:17 Sodium Chloride 0.9% 10 Ml Flush Syringe IV 10 ml BID AMIRA Administration Sodium Chloride 10 ml 04/23/21 11:54 04/24/21 11:15 Sodium Chloride 0.9% 10 Ml Flush Syringe IV 10 ml PRN PRN Administration LINE FLUSH
--- NOTE | 2021-04-24 11:06 | Consultation ---
DATE OF CONSULTATION: 04/23/2021 PULMONARY CRITICAL CARE CONSULT CONSULTING PHYSICIAN: Dr. Leary. REASON FOR CONSULTATION: Diabetic ketoacidosis. CHIEF COMPLAINT AND HISTORY OF PRESENT ILLNESS: As follows: The patient is a 51-year-old obese female with a past medical history significant for diabetes mellitus, presumed medication noncompliance, although she tells me she just could not afford her medications, came into the Emergency Room complaining of feeling sick, complaining of generalized weakness, nausea, polydipsia, polyuria. She knew her blood sugar levels were high. Could not afford her medications. It has been worsening over the preceding few weeks. In the Emergency Room, she was evaluated and ultimately diagnosed with diabetic ketoacidosis. She was started on IV insulin drip, DKA protocol and we are asked to assist with management. When I stopped by to see her, she was resting in bed, somnolent is the best way to describe her. Oropharynx was pretty dry. She denied any abdominal pain. She denied any chest pain. She denied any cough or expectoration. When asked about a history of tobacco use/abuse, she seems to have nodded no to that. This really is as much of the history of presentation as I have. PAST MEDICAL HISTORY: Diabetes, obesity, arthritis. PAST SURGICAL HISTORY: She has had right knee surgery according to the records and she has had a section. MEDICATIONS: She was on at the time I stopped by to see her were reviewed. Pertinent medications include the following: Albuterol 2.5 mg nebulized q.4 hours p.r.n. shortness of breath, Tylenol 650 mg p.o. q.6 hours p.r.n. mild pain or fevers, Dilaudid 0.5 mg IV q.23 hours p.r.n. severe pain. Insulin drip, I believe was going at 8 units per hour. Percocet 5/325 one tablet p.o. q.16 hours p.r.n. moderate pain. She was also on sodium bicarbonate 50 mEq IV b.i.d. scheduled. ALLERGIES: No known drug allergies. DIET: Obese lady, acute weight loss or gain history is unknown. FAMILY AND SOCIAL HISTORY: Lives in the community. Denies alcohol, tobacco or illicit drug use or abuse. FAMILY HISTORY: There is a family history of diabetes and hypertension. REVIEW OF SYSTEMS: Difficult to obtain secondary to the patient's medical and mental condition. Since she has been in the Emergency Room, no gross hematochezia or melena, no gross hematuria, no hematemesis, no hemoptysis, no witnessed seizures. Review of systems otherwise unobtainable or as in body of history above. PHYSICAL EXAMINATION: VITAL SIGNS: At presentation in the Emergency Room, she was afebrile. She is actually hypothermic, temperature was 96.4 rectally with a pulse of 98, respiratory rate of 19, blood pressure 134/77, O2 sats were 99%, inspired oxygen concentration at that time was not recorded. When I stopped by to see her, her O2 sats were 98% that was on room air. GENERAL: She is a middle-aged obese female. Normocephalic, atraumatic, lying in bed with mildly increased respiratory effort at rest. HEAD, EYES, EARS, NOSE AND THROAT: Anicteric. No conjunctival erythema. Oropharynx was dry. NECK: No gross jugular venous distention, no thyromegaly. Grossly, there were no palpable lymph nodes in the supraclavicular or submandibular lymph node chains. LUNGS: Auscultation of both lung ann significant for diminished bilateral breath sounds, but clear bilaterally. No wheezing. HEART: Sounds 1 and 2 are heard at the time of my evaluation, regular rate and rhythm without overt rubs or murmurs. ABDOMEN: Soft, full, protuberant. Bowel sounds are positive, nontender, they are hypoactive. No palpable hepatosplenomegaly. EXTREMITIES: Without overt digital clubbing or cyanosis, no pedal edema. Pedal pulses are 2+ bilaterally. NEUROLOGIC: Pupils are equal, round, about 4 mm, reactive to light. Extraocular muscle movements were intact. She moves all 4 extremities spontaneously. SKIN: Poor turgor; however, without overt cellulitis or rash in the areas I examined. Please see the wound care nurses' notes for full description of her skin. PSYCHIATRIC: Mood and affect could not be appropriately addressed. She was somnolent to lethargic. LABORATORY DATA: For my review are as follows: Admission white cell count was 7400, hemoglobin 11.8, hematocrit 38.0, platelet count 286, 26% band neutrophils on the manual differential. Venous blood gas showed a pH of 7.18. Serum sodium was 122, potassium 3.0, chloride 85, bicarbonate was 6, BUN was 49, creatinine was 1.4, glucose was 775, calcium 12.2. Liver function tests essentially within normal limits. Ammonia within normal limits. Troponin within normal limits. TSH within normal limits. No microbiology studies for my review. Chest x-ray has been reviewed, unremarkable. Chest x-ray, no acute cardiopulmonary process. A CT scan of the head was also done. I have reviewed the radiologist's interpretation. No acute intracranial abnormality. ASSESSMENT: 1. Acute metabolic acidosis, severe. 2. Diabetic ketoacidosis. 3. Acute toxic metabolic encephalopathy. 4. Obesity. 5. Osteoarthritis. 6. Hypercalcemia. PLAN: She has been started on a DKA protocol. I do agree with IV insulin. Volume resuscitation will be aggressively pursued. I do feel the hypercalcemia will also improve with volume hydration, as well hopefully her mental status. I am bothered by the bandemia. We will watch closely and evaluate for possible signs of occult sepsis. In the meantime, I will go ahead and draw 2 sets of blood cultures and follow her clinically. Lactic acid level will be drawn. Procalcitonin level will be drawn. However, we will again not use antibiotics at this time. She is going to be placed on GI and DVT prophylaxis. Flu and pneumonia vaccination will be addressed per protocol. Thank you very much for the consult. We will follow along and make further recommendations as picture progresses/becomes clearer. TID: [id number] RECEIPT: [id number] MANNY/ROBER
[2021-04-24] MEDS: SODIUM BICARB 8.4% 50 MEQ/50 ML SYRINGE IV SCH (11:15)
[2021-04-24 13:06] LABS: BUN/Creatinine Ratio 30; Blood Urea Nitrogen 24 mg/dL (7-17); Calcium 10.5 mg/dL (8.4-10.2); Hemolysis Index 4
[2021-04-24] MEDS ORDERED: SODIUM CHLORIDE 0.9% 500 ML 500 ML IV ONE ×2 (13:30→22:12)
[2021-04-24] MEDS ORDERED: SODIUM CHLORIDE 0.9% 500 ML 500 ML IV SCH (14:00)
--- NOTE | 2021-04-24 15:37 | XRay Report ---
CHEST 1 VIEW INDICATION / CLINICAL INFORMATION: Hypoxia STUDY TIME: 1435 COMPARISON: 04/23/2021 FINDINGS: SUPPORT DEVICES: None HEART / MEDIASTINUM: No significant abnormality. LUNGS / PLEURA: Poor degree of inspiration is seen. Mildly congested appearance is noted which could be accentuated by the low lung volumes on this study. Bibasilar atelectatic changes are noted. No def inite areas of pneumonitis are seen. No pneumothorax. ADDITIONAL FINDINGS: Mild gaseous distention of stomach is noted. Signer Name: Guilherme Cazares MD Signed: 04/24/2021 3:33 PM Workstation Name: [id number]
[2021-04-24] MEDS: CEFEPIME/NS 2 GM/100 ML 2 GM/100 ML BAG IV SCH (17:00)
[2021-04-24] MEDS ORDERED: AZITHROMYCIN/NS 500 MG/250 ML 500 MG/250 ML BAG IV SCH (17:00)
[2021-04-24] MEDS ORDERED: SODIUM PHOSPHATE 30 MMOL in SODIUM CHLORIDE 0.9% 500 ML 500 ML IV SCH (19:00)
--- NOTE | 2021-04-24 19:02 | XRay Report ---
ABDOMEN AP PORTABLE SUPINE 1822 INDICATION: NGT placement COMPARISON: None available. FINDINGS: Nasogastric tube extends well into the proximal stomach. Signer Name: Guilherme Cazares MD Signed: 04/24/2021 6:58 PM Workstation Name: [id number]
[2021-04-24 19:15] LABS: Blood Urea Nitrogen 22 mg/dL (7-17); Calcium 9.9 mg/dL (8.4-10.2); Hemolysis Index 39
[2021-04-24 19:17] LABS: BUN/Creatinine Ratio 31
[2021-04-24] MEDS: ENOXAPARIN 40 MG/0.4 ML INJ SUB-Q SCH (21:18)
[2021-04-24] MEDS: HYDROmorphone 1 MG/1 ML INJ IV PRN (21:57)
[2021-04-25] MEDS ORDERED: SODIUM CHLORIDE 0.9% 500 ML 500 ML IV ONE (00:04)
[2021-04-25] MEDS: CEFEPIME/NS 2 GM/100 ML 2 GM/100 ML BAG IV SCH (04:31)
[2021-04-25] MEDS: D5W/0.45% NACL/KCL 20 MEQ 20 MEQ/1,000 ML BAG IV SCH (05:52)
[2021-04-25 08:18] LABS: Hematocrit 28.8 % (30.3-42.9); Hemoglobin 9.5 gm/dl (10.1-14.3); Mean Corpuscular HGB Conc 33 % (30-34); Mean Corpuscular Volume 79 fl (79-97); Platelet Count 189 K/mm3 (140-440); Red Blood Count 3.65 M/mm3 (3.65-5.03); Red Cell Distribution Width 14.2 % (13.2-15.2)
[2021-04-25 08:38] LABS: BUN/Creatinine Ratio 29; Blood Urea Nitrogen 23 mg/dL (7-17); Calcium 9.4 mg/dL (8.4-10.2); Hemolysis Index 2
[2021-04-25] MEDS ORDERED: VANCOMYCIN PHARMACY TO DOSE IV SCH (09:00)
[2021-04-25] MEDS ORDERED: SODIUM CHLORIDE 0.9% 1000 ML 1,000 ML IV ONE (09:04)
[2021-04-25] MEDS: VANCOMYCIN 2,000 MG in SODIUM CHLORIDE 0.9% 500 ML 500 ML IV SCH ×2 (09:06→20:22)
[2021-04-25] MEDS: ENOXAPARIN 40 MG/0.4 ML INJ SUB-Q SCH ×2 (09:26→21:14)
[2021-04-25] MEDS: FAMOTIDINE 20 MG/2 ML INJ IV SCH (09:26)
[2021-04-25] MEDS ORDERED: MAGNESIUM SULFATE 4 GM/100 ML BAG IV SCH (09:30)
[2021-04-25] MEDS ORDERED: LACTATED RINGERS 1,000 ML IV ONE (09:30)
[2021-04-25] MEDS ORDERED: FLUCONAZOLE 100 MG TAB PO SCH (10:00)
[2021-04-25] MEDS ORDERED: FLUCONAZOLE/NS 100 MG/50 ML 100 MG/50 ML BAG IV SCH (10:00)
--- NOTE | 2021-04-25 10:00 | XRay Report ---
RIGHT KNEE 2 VIEWS INDICATION: Spetic arthritis. COMPARISON: 01/11/2020 IMPRESSION: Large joint effusion. There are advanced destructive changes at the right knee joint ar ticular surfaces consistent with history of septic arthritis. This appears advanced significantly sin ce 03/12/2020 right knee films. There is mild lateral subluxation of the tibial plateau with respect to the distal femur with bony resorption/destruction of the medial tibial plateau since the previous exam. No acute fracture or bone lesion is appreciated. If further evaluation is needed, MRI with and without contrast should provide the most information. Signer Name: Edson Sanchez Jr, MD Signed: 04/25/2021 9:55 AM Workstation Name: [id number]
--- NOTE | 2021-04-25 10:16 | Electrocardiograph Report ---
[facility] Test Date: 2021-04-23 Test Time: 10:28:35 Pat Name: ADELITA HARRY Department: Room: A256 Gender: F Rental Agent: GP : [id number] Requested By: MITCH CRESPO Order Number: [id number] Reading MD: Ventura Aquino Measurements Intervals Caro Rate: 102 P: 19 KS: 169 QRS: 21 QRSD: 111 T: 157 QT: 387 QTc: 505 Interpretive Statements Sinus tachycardia LVH with secondary repolarization abnormality No previous ECG available for comparison Electronically Signed On 04-25-2021 10:16:11 EST by Ventura Aquino
[2021-04-25 10:50] LABS: Band Neutrophils # (Manual) 1.3 K/mm3; Myelocytes # (Manual) 1.3 K/mm3; Total Cells Counted 100
[2021-04-25 10:56] LABS: Hypochromasia 1+; Platelet Estimate Consistent w Auto
--- NOTE | 2021-04-25 11:33 | Progress Note ---
<ANA MUÑOZ - Last Filed: 04/25/21 21:30> Assessment and Plan Assessment and plan: This is a 51-year-old female with past medical history of DM, noncomplaint with medications, obesity, arthritis, and Rt. Knee surgery admitted for DKA Hospital Course to Date: 04/24/21- Patient remains on DKA protocol. Still very lethargic this am, following simple commands. Rt. knee wound and swelling noted, and nursing staff also reported thick, white vaginal discharge. C/f sepsis, blood culture ordered, this am UA noted. Will start patient on PO difflucan for possible yeast infection, pending culture data. Anion GAP is still 18 this am, will continue DKA protocol for now. Continue to monitor electrolytes, serial BMP ordered. 04/25/21- Patient appears to be in distress this am, now on 3L NC. Lactic acidosis worsen overnight, X1L LR bolus adminstered. Ordered placed for stat ABGs. Blood culture growing GPC 3/4 bottles, patient remains afebrile with no leukocytosis. IV abx was escalated, ID consulted. Ortho consult is still pending, order placed for XR of the Rt. knee. Given patient worsen condition and high anio, gap, will continue insulin gtt for now. Low K and mg was repleted. Continue serial BMP,mg, and phosp Assessment and Plan #Acute Metabolic Encephalopathy - Probably related to metabolic acidosis - Mentation worsen this am - Continue DKA protocol, now on IV abx - Avoid benzodiazepine to reduce the possibility of delirium - PRN analgesia for CPOT greater than 3 - Maintenance of sleep-wake cycle #Tachycardia - ST on the monitor - Probably reactive to current condition - Hemodynamic stable - Maintain adequate perfusion - Continue rehydration with cont. IVF - Continue blood pressure monitor per protocol - Maintain MAP above 65 #GI: NPO - Keep patient NPO while on DKA protocol - Continue continuos IVF - PPI- Pepcid - BR added #Hypokalemia #Hypophosphetemia - Probably due to DKA - Continue IVF - Monitor and replace electrolytes as needed - Serial BMP ordered - Strict intake and output - Avoid nephrotoxic medications; Renally dose medications #Sepsis #Vaginal Yeast Infection #?? Right Septic Knee #Lactic Acidosis - Thick, white vaginal discharge - Rt. Knee wound and swelling, H/o of Knee surgery - XR of Rt. Knee pending - Patient is afebrile, wbcs wnl - UA no indication for infection - Blood Culture +GPC 3/4 bottles - Lactic as high as 3.10 - Procal pending - Empiric IV antibiotoc initiated - ID consulted - F/U on culture data - Daily CBC monitor - Continue to trend lactic #Diabetic Ketoacidosis (DKA) - Presented with elevated BG and acidosis - UA + glucose, protein, and ketones - A1c 18.3 - Continue DKA protocol until anion gap is closed - Continue Continue IVF - Monitor and replace electrolytes as needed - Serial BMP ordered #DVT Prophylaxis - AC- Lovenox added - SCD to bilateral lower extremities while in bed The high probability of a clinically significant, sudden or life threatening deterioration of the [multiple] system(s) required my full and direct attention, intervention and personal management. The aggregate critical care time was [60] minutes. This time is in addition to time spent performing reported procedures but includes the following: [x] Data Review and interpretation [x] Patient assessment and monitoring of vital signs [x] Documentation [x] Medication orders and management Disposition Plan: ICU Total Time Spent with Patient (Minutes): 60 History Interval history: Patient seen and examined at the bedside. More altered and lethargic this am. Now on 3L NC, still following simple commands. Hypotensive overnight with elevated lactic acid which improved with IV boluses. Remains on DKA protocol, GAP is still 18 this am Hospitalist Physical - Constitutional Vitals: Temp Pulse Resp BP Pulse Ox 97.6 F 120 H 27 H 142/79 95 04/25/21 07:29 04/25/21 11:00 04/25/21 11:00 04/25/21 11:00 04/25/21 11:00 General appearance: Present: no acute distress, mild distress, obese, other (Confused and Lethargic) - EENT Eyes: Present: PERRL ENT: hearing intact, other (Dry oral mucosa) - Respiratory Respiratory effort: labored, accessory muscle use Respiratory: right: rales, left: diminished - Cardiovascular Rhythm: regular Heart Sounds: Present: S1 & S2 - Extremities Extremities: no ischemia, pulses intact, pulses symmetrical Extremity abnormal: edema - Peripheral Assessment Generalized Edema Type: Non-pitting Edema Degree: 2+ Capillary Refill: < 3 seconds Skin Temperature: Warm Peripheral Pulses: within normal limits - Abdominal General gastrointestinal: soft, non-tender, normal bowel sounds - Integumentary Integumentary: Present: warm, dry - Psychiatric Psychiatric: cooperative, other (Confused and Lethargic) - Neurologic Neurologic: moves all extremities, other (Confused and Lethargic) - Allied Health Allied health notes reviewed: nursing HEART Score - HEART Score Troponin: Troponin T < 0.010 ng/mL (0.00-0.029) 04/23/21 10:33 Results - Labs CBC & Chem 7: 04/25/21 08:10 04/25/21 18:58 Labs: Laboratory Last Values WBC 5.7 K/mm3 (4.5-11.0) 04/25/21 08:10 RBC 3.65 M/mm3 (3.65-5.03) 04/25/21 08:10 Hgb 9.5 gm/dl (10.1-14.3) L 04/25/21 08:10 Hct 28.8 % (30.3-42.9) L 04/25/21 08:10 MCV 79 fl (79-97) 04/25/21 08:10 MCH 26 pg (28-32) L 04/25/21 08:10 MCHC 33 % (30-34) 04/25/21 08:10 RDW 14.2 % (13.2-15.2) 04/25/21 08:10 Plt Count 189 K/mm3 (140-440) 04/25/21 08:10 Add Manual Diff Complete 04/25/21 08:10 Total Counted 100 04/25/21 08:10 Seg Neutrophils % Laminator Preforms 04/23/21 10:33 Seg Neuts % (Manual) 33.0 % (40.0-70.0) L 04/25/21 08:10 Band Neutrophils % 23.0 % 04/25/21 08:10 Lymphocytes % (Manual) 19.0 % (13.4-35.0) 04/25/21 08:10 Reactive Lymphs % (Man) 1.0 % 04/25/21 08:10 Monocytes % (Manual) 1.0 % (0.0-7.3) 04/25/21 08:10 Eosinophils % (Manual) 1.0 % (0.0-4.3) 04/25/21 08:10 Metamyelocytes % 3.0 % 04/23/21 10:33 Myelocytes % 22.0 % 04/25/21 08:10 Nucleated RBC % Not Reportable 04/25/21 08:10 Seg Neutrophils # Man 1.9 K/mm3 (1.8-7.7) 04/25/21 08:10 Band Neutrophils # 1.3 K/mm3 04/25/21 08:10 Lymphocytes # (Manual) 1.1 K/mm3 (1.2-5.4) L 04/25/21 08:10 Abs React Lymphs (Man) 0.1 K/mm3 04/25/21 08:10 Monocytes # (Manual) 0.1 K/mm3 (0.0-0.8) 04/25/21 08:10 Eosinophils # (Manual) 0.1 K/mm3 (0.0-0.4) 04/25/21 08:10 Basophils # (Manual) 0.0 K/mm3 (0.0-0.1) 04/25/21 08:10 Metamyelocytes # 0.0 K/mm3 04/25/21 08:10 Myelocytes # 1.3 K/mm3 04/25/21 08:10 Promyelocytes # 0.0 K/mm3 04/25/21 08:10 Blast Cells # 0.0 K/mm3 04/25/21 08:10 WBC Morphology Not Reportable 04/25/21 08:10 Hypersegmented Neuts Not Reportable 04/25/21 08:10 Hyposegmented Neuts Not Reportable 04/25/21 08:10 Hypogranular Neuts Not Reportable 04/25/21 08:10 Smudge Cells Not Reportable 04/25/21 08:10 Toxic Granulation Not Reportable 04/25/21 08:10 Toxic Vacuolation Not Reportable 04/25/21 08:10 Dohle Bodies Not Reportable 04/25/21 08:10 Pelger-Huet Anomaly Not Reportable 04/25/21 08:10 Thierry Rods Not Reportable 04/25/21 08:10 Platelet Estimate Consistent w auto 04/25/21 08:10 Clumped Platelets Not Reportable 04/25/21 08:10 Plt Clumps, EDTA Not Reportable 04/25/21 08:10 Large Platelets Not Reportable 04/25/21 08:10 Giant Platelets Not Reportable 04/25/21 08:10 Platelet Satelliting Not Reportable 04/25/21 08:10 Plt Morphology Comment Not Reportable 04/25/21 08:10 RBC Morphology Not Reportable 04/25/21 08:10 Dimorphic RBCs Not Reportable 04/25/21 08:10 Polychromasia Not Reportable 04/25/21 08:10 Hypochromasia 1+ 04/25/21 08:10 Poikilocytosis Not Reportable 04/25/21 08:10 Anisocytosis Not Reportable 04/25/21 08:10 Microcytosis Not Reportable 04/25/21 08:10 Macrocytosis Not Reportable 04/25/21 08:10 Spherocytes Not Reportable 04/25/21 08:10 Pappenheimer Bodies Not Reportable 04/25/21 08:10 Sickle Cells Not Reportable 04/25/21 08:10 Target Cells Not Reportable 04/25/21 08:10 Tear Drop Cells Not Reportable 04/25/21 08:10 Ovalocytes Not Reportable 04/25/21 08:10 Helmet Cells Not Reportable 04/25/21 08:10 [place] Bodies Not Reportable 04/25/21 08:10 Jean Rings Not Reportable 04/25/21 08:10 [place] Cells Not Reportable 04/25/21 08:10 Bite Cells Not Reportable 04/25/21 08:10 Crenated Cell Not Reportable 04/25/21 08:10 Elliptocytes Not Reportable 04/25/21 08:10 Acanthocytes (Spur) Not Reportable 04/25/21 08:10 Rouleaux Not Reportable 04/25/21 08:10 Hemoglobin C Crystals Not Reportable 04/25/21 08:10 Schistocytes Not Reportable 04/25/21 08:10 Malaria parasites Not Reportable 04/25/21 08:10 Juan Bodies Not Reportable 04/25/21 08:10 Hem Pathologist Commnt No 04/25/21 08:10 VBG pH 7.180 (7.320-7.420) L* 04/23/21 10:33 Sodium 140 mmol/L (137-145) 04/25/21 08:10 Potassium 3.3 mmol/L (3.6-5.0) L 04/25/21 08:10 Chloride 109.0 mmol/L (98-107) H 04/25/21 08:10 Carbon Dioxide 16 mmol/L (22-30) L 04/25/21 08:10 Anion Gap 18 mmol/L 04/25/21 08:10 BUN 23 mg/dL (7-17) H 04/25/21 08:10 Creatinine 0.8 mg/dL (0.6-1.2) 04/25/21 08:10 Estimated GFR > 60 ml/min 04/25/21 08:10 BUN/Creatinine Ratio 29 % 04/25/21 08:10 Glucose 151 mg/dL (65-100) H 04/25/21 08:10 POC Glucose 141 mg/dL (70-105) H 04/25/21 11:20 Hemoglobin A1c 18.3 % (4-6) H 04/24/21 04:16 Lactic Acid 2.10 mmol/L (0.7-2.0) H* 04/25/21 08:10 Uric Acid 7.5 mg/dL (3.5-7.6) 04/24/21 12:14 Calcium 9.4 mg/dL (8.4-10.2) 04/25/21 08:10 Phosphorus 2.20 mg/dL (2.5-4.5) L D 04/25/21 08:10 Magnesium 1.60 mg/dL (1.7-2.3) L 04/25/21 08:10 Total Bilirubin 0.60 mg/dL (0.1-1.2) 04/23/21 10:33 AST 10 units/L (5-40) 04/23/21 10:33 ALT 9 units/L (7-56) 04/23/21 10:33 Alkaline Phosphatase 130 units/L (35-129) H 04/23/21 10:33 Ammonia 37.0 umol/L (25-60) 04/23/21 10:33 Total Creatine Kinase 83 units/L (30-135) 04/23/21 10:33 Troponin T < 0.010 ng/mL (0.00-0.029) 04/23/21 10:33 C-Reactive Protein 24.30 mg/dL (0.00-1.30) H 04/24/21 18:24 Total Protein 8.2 g/dL (6.3-8.2) 04/23/21 10:33 Albumin 2.9 g/dL (3.9-5) L 04/23/21 10:33 Albumin/Globulin Ratio 0.5 % 04/23/21 10:33 TSH 1.400 mlU/mL (0.270-4.200) 04/23/21 10:33 Urine Color Yellow (Yellow) 04/24/21 08:40 Urine Turbidity Clear (Clear) 04/24/21 08:40 Urine pH 6.0 (5.0-7.0) 04/24/21 08:40 Ur Specific [place] 1.022 (1.003-1.030) 04/24/21 08:40 Urine Protein 100 mg/dl mg/dL (Negative) 04/24/21 08:40 Urine Glucose (UA) >=500 mg/dL (Negative) 04/24/21 08:40 Urine Ketones 20 mg/dL (Negative) 04/24/21 08:40 Urine Blood Sm (Negative) 04/24/21 08:40 Urine Nitrite Neg (Negative) 04/24/21 08:40 Urine Bilirubin Neg (Negative) 04/24/21 08:40 Urine Urobilinogen 2.0 mg/dL (<2.0) 04/24/21 08:40 Ur Leukocyte Esterase Neg (Negative) 04/24/21 08:40 Urine WBC (Auto) < 1.0 /HPF (0.0-6.0) 04/24/21 08:40 Urine RBC (Auto) 1.0 /HPF (0.0-6.0) 04/24/21 08:40 U Epithel Cells (Auto) < 1.0 /HPF (0-13.0) 04/24/21 08:40 Microbiology: Microbiology 04/24/21 12:14 Peripheral/Venous Blood Culture - Preliminary 04/24/21 12:34 Peripheral/Venous Blood Culture - Preliminary Sanchez/IV: Voiding Method External Female Catheter Active Medications - Current Medications Current Medications: Generic Name Dose Route Start Last Admin Trade Name Freq PRN Reason Stop Dose Admin Acetaminophen 650 mg 04/23/21 11:54 Acetaminophen 325 Mg Tab PO Q6H PRN Pain MILD(1-3)/Fever >100.5/SMITH Dextrose 0 ml 04/23/21 17:08 Dextrose 50% In Water (25gm) 50 Ml Syringe IV Q30MIN PRN Hypoglycemia Protocol Enoxaparin Sodium 40 mg 04/24/21 22:00 04/25/21 09:26 Enoxaparin 40 Mg/0.4 Ml Inj SUB-Q 40 mg BID AMIRA Administration Protocol Famotidine 20 mg 04/25/21 10:00 04/25/21 09:26 Famotidine 20 Mg/2 Ml Inj IV 20 mg QDAY AMIRA Administration Hydromorphone HCl 0.5 mg 04/23/21 11:54 04/24/21 21:57 Hydromorphone 1 Mg/1 Ml Inj IV 0.5 mg Q23H PRN Administration Pain , Severe (7-10) Insulin Human Regular 100 100 mls @ 1 mls/hr 04/23/21 12:00 04/25/21 07:14 units/ Sodium Chloride IV 7 units/hr TITR AMIRA 7 mls/hr Titration Protocol 1 UNITS/HR Potassium Chloride/Dextrose/Sod Cl 20 meq in 1,000 mls @ 125 mls/hr 04/23/21 22:00 04/25/21 05:52 D5w/0.45% Nacl/Kcl 20 Meq IV 125 mls/hr DIRECT AMIRA Administration Vancomycin HCl 2,000 mg/ 540 mls @ 250 mls/hr 04/25/21 09:00 04/25/21 09:06 Sodium Chloride IV 250 mls/hr Q12H AMIRA Administration Cefepime HCl 2 gm in 100 mls @ 200 mls/hr 04/25/21 14:00 Cefepime/Ns 2 Gm/100 Ml IV Q8HR AMIRA Protocol Magnesium Sulfate 4 gm in 100 mls @ 25 mls/hr 04/25/21 09:30 04/25/21 09:26 Magnesium Sulfate 4gm/100ml IV 04/25/21 13:30 25 mls/hr ONCE@0930 AMIRA Administration Oxycodone/Acetaminophen 1 tab 04/23/21 11:54 Oxycodone /Acetaminophen 5-325mg Tab PO Q16H PRN Pain, Moderate (4-6) Sodium Chloride 10 ml 04/23/21 22:00 04/25/21 09:28 Sodium Chloride 0.9% 10 Ml Flush Syringe IV 10 ml BID AMIRA Administration Sodium Chloride 10 ml 04/23/21 11:54 04/24/21 11:15 Sodium Chloride 0.9% 10 Ml Flush Syringe IV 10 ml PRN PRN Administration LINE FLUSH <ED ORTIZ Cesar - Last Filed: 05/07/21 07:13> Assessment and Plan Assessment and plan: I saw and evaluated the patient. I agree with the findings and the plan of care as documented in the Nurse Practitioner's~note, with the following corrections and additions. Hospitalist Physical - Constitutional Vitals: Temp Pulse Resp BP Pulse Ox 99.9 F H 111 H 20 152/73 97 05/07/21 05:47 05/07/21 05:47 05/07/21 05:47 05/07/21 05:47 05/07/21 05:47 HEART Score - HEART Score Troponin: Troponin T < 0.010 ng/mL (0.00-0.029) 04/23/21 10:33 Results - Labs CBC & Chem 7: 05/06/21 07:52 05/05/21 06:15 Labs: Laboratory Last Values WBC 9.5 K/mm3 (4.5-11.0) 05/05/21 06:15 RBC 2.56 M/mm3 (3.65-5.03) L 05/05/21 06:15 Hgb 7.0 gm/dl (10.1-14.3) L 05/06/21 07:52 Hct 21.8 % (30.3-42.9) L 05/06/21 07:52 MCV 84 fl (79-97) 05/05/21 06:15 MCH 27 pg (28-32) L 05/05/21 06:15 MCHC 32 % (30-34) 05/05/21 06:15 RDW 14.9 % (13.2-15.2) 05/05/21 06:15 Plt Count 442 K/mm3 (140-440) H 05/05/21 06:15 Lymph % (Auto) 17.4 % (13.4-35.0) 05/05/21 06:15 [place] % (Auto) 4.9 % (0.0-7.3) 05/05/21 06:15 Eos % (Auto) 0.4 % (0.0-4.3) 05/05/21 06:15 Baso % (Auto) 0.8 % (0.0-1.8) 05/05/21 06:15 Lymph # (Auto) 1.7 K/mm3 (1.2-5.4) 05/05/21 06:15 [place] # (Auto) 0.5 K/mm3 (0.0-0.8) 05/05/21 06:15 Eos # (Auto) 0.0 K/mm3 (0.0-0.4) 05/05/21 06:15 Baso # (Auto) 0.1 K/mm3 (0.0-0.1) 05/05/21 06:15 Add Manual Diff Complete 04/25/21 08:10 Total Counted 100 04/25/21 08:10 Seg Neutrophils % 76.5 % (40.0-70.0) H 05/05/21 06:15 Seg Neuts % (Manual) 33.0 % (40.0-70.0) L 04/25/21 08:10 Band Neutrophils % 23.0 % 04/25/21 08:10 Lymphocytes % (Manual) 19.0 % (13.4-35.0) 04/25/21 08:10 Reactive Lymphs % (Man) 1.0 % 04/25/21 08:10 Monocytes % (Manual) 1.0 % (0.0-7.3) 04/25/21 08:10 Eosinophils % (Manual) 1.0 % (0.0-4.3) 04/25/21 08:10 Metamyelocytes % 3.0 % 04/23/21 10:33 Myelocytes % 22.0 % 04/25/21 08:10 Nucleated RBC % Not Reportable 04/25/21 08:10 Seg Neutrophils # 7.3 K/mm3 (1.8-7.7) 05/05/21 06:15 Seg Neutrophils # Man 1.9 K/mm3 (1.8-7.7) 04/25/21 08:10 Band Neutrophils # 1.3 K/mm3 04/25/21 08:10 Lymphocytes # (Manual) 1.1 K/mm3 (1.2-5.4) L 04/25/21 08:10 Abs React Lymphs (Man) 0.1 K/mm3 04/25/21 08:10 Monocytes # (Manual) 0.1 K/mm3 (0.0-0.8) 04/25/21 08:10 Eosinophils # (Manual) 0.1 K/mm3 (0.0-0.4) 04/25/21 08:10 Basophils # (Manual) 0.0 K/mm3 (0.0-0.1) 04/25/21 08:10 Metamyelocytes # 0.0 K/mm3 04/25/21 08:10 Myelocytes # 1.3 K/mm3 04/25/21 08:10 Promyelocytes # 0.0 K/mm3 04/25/21 08:10 Blast Cells # 0.0 K/mm3 04/25/21 08:10 WBC Morphology Not Reportable 04/25/21 08:10 Hypersegmented Neuts Not Reportable 04/25/21 08:10 Hyposegmented Neuts Not Reportable 04/25/21 08:10 Hypogranular Neuts Not Reportable 04/25/21 08:10 Smudge Cells Not Reportable 04/25/21 08:10 Toxic Granulation Not Reportable 04/25/21 08:10 Toxic Vacuolation Not Reportable 04/25/21 08:10 Dohle Bodies Not Reportable 04/25/21 08:10 Pelger-Huet Anomaly Not Reportable 04/25/21 08:10 Thierry Rods Not Reportable 04/25/21 08:10 Platelet Estimate Consistent w auto 04/25/21 08:10 Clumped Platelets Not Reportable 04/25/21 08:10 Plt Clumps, EDTA Not Reportable 04/25/21 08:10 Large Platelets Not Reportable 04/25/21 08:10 Giant Platelets Not Reportable 04/25/21 08:10 Platelet Satelliting Not Reportable 04/25/21 08:10 Plt Morphology Comment Not Reportable 04/25/21 08:10 RBC Morphology Not Reportable 04/25/21 08:10 Dimorphic RBCs Not Reportable 04/25/21 08:10 Polychromasia Not Reportable 04/25/21 08:10 Hypochromasia 1+ 04/25/21 08:10 Poikilocytosis Not Reportable 04/25/21 08:10 Anisocytosis Not Reportable 04/25/21 08:10 Microcytosis Not Reportable 04/25/21 08:10 Macrocytosis Not Reportable 04/25/21 08:10 Spherocytes Not Reportable 04/25/21 08:10 Pappenheimer Bodies Not Reportable 04/25/21 08:10 Sickle Cells Not Reportable 04/25/21 08:10 Target Cells Not Reportable 04/25/21 08:10 Tear Drop Cells Not Reportable 04/25/21 08:10 Ovalocytes Not Reportable 04/25/21 08:10 Helmet Cells Not Reportable 04/25/21 08:10 [place] Bodies Not Reportable 04/25/21 08:10 Jean Rings Not Reportable 04/25/21 08:10 [place] Cells Not Reportable 04/25/21 08:10 Bite Cells Not Reportable 04/25/21 08:10 Crenated Cell Not Reportable 04/25/21 08:10 Elliptocytes Not Reportable 04/25/21 08:10 Acanthocytes (Spur) Not Reportable 04/25/21 08:10 Rouleaux Not Reportable 04/25/21 08:10 Hemoglobin C Crystals Not Reportable 04/25/21 08:10 Schistocytes Not Reportable 04/25/21 08:10 Malaria parasites Not Reportable 04/25/21 08:10 Juan Bodies Not Reportable 04/25/21 08:10 Hem Pathologist Commnt No 04/25/21 08:10 ABG pH 7.426 pH Units (7.350-7.450) 04/25/21 11:20 ABG pCO2 25.3 mm Hg 04/25/21 11:20 ABG pO2 73.2 mm Hg (80.0-90.0) L 04/25/21 11:20 ABG HCO3 16.2 mmol/L (20.0-26.0) L 04/25/21 11:20 ABG O2 Saturation 96.9 % (95.0-99.0) 04/25/21 11:20 ABG O2 Content 11.6 (0.0-44) 04/25/21 11:20 ABG Base Excess -7.1 mmol/L (-2.0-3.0) L 04/25/21 11:20 ABG Hemoglobin 8.7 gm/dl (12.0-16.0) L 04/25/21 11:20 ABG Carboxyhemoglobin 1.6 % (0.0-5.0) 04/25/21 11:20 ABG Methemoglobin 0.6 % (0.0-1.5) 04/25/21 11:20 VBG pH 7.180 (7.320-7.420) L* 04/23/21 10:33 Oxyhemoglobin 94.8 % (95.0-99.0) L 04/25/21 11:20 FiO2 28 % 04/25/21 11:20 Sodium 139 mmol/L (137-145) 05/05/21 06:15 Potassium 4.3 mmol/L (3.6-5.0) 05/05/21 06:15 Chloride 101.6 mmol/L (98-107) 05/05/21 06:15 Carbon Dioxide 26 mmol/L (22-30) 05/05/21 06:15 Anion Gap 16 mmol/L 05/05/21 06:15 BUN 52 mg/dL (7-17) H 05/05/21 06:15 Creatinine 1.2 mg/dL (0.6-1.2) 05/05/21 06:15 Estimated GFR 58 ml/min 05/05/21 06:15 BUN/Creatinine Ratio 43 % 05/05/21 06:15 Glucose 430 mg/dL (65-100) H 05/05/21 06:15 POC Glucose 150 mg/dL (70-105) H 05/06/21 23:03 Hemoglobin A1c 18.3 % (4-6) H 04/24/21 04:16 Lactic Acid 1.70 mmol/L (0.7-2.0) 04/26/21 05:02 Uric Acid 7.5 mg/dL (3.5-7.6) 04/24/21 12:14 Calcium 8.4 mg/dL (8.4-10.2) 05/05/21 06:15 Phosphorus 4.50 mg/dL (2.5-4.5) 04/30/21 04:41 Magnesium 2.10 mg/dL (1.7-2.3) 05/03/21 07:05 Total Bilirubin 0.50 mg/dL (0.1-1.2) 04/30/21 04:41 AST 12 units/L (5-40) 04/30/21 04:41 ALT 7 units/L (7-56) 04/30/21 04:41 Alkaline Phosphatase 171 units/L (35-129) H 04/30/21 04:41 Ammonia 37.0 umol/L (25-60) 04/23/21 10:33 Total Creatine Kinase 83 units/L (30-135) 04/23/21 10:33 Troponin T < 0.010 ng/mL (0.00-0.029) 04/23/21 10:33 C-Reactive Protein 24.30 mg/dL (0.00-1.30) H 04/24/21 18:24 Total Protein 6.1 g/dL (6.3-8.2) L 04/30/21 04:41 Albumin 1.4 g/dL (3.9-5) L 04/30/21 04:41 Albumin/Globulin Ratio 0.3 % 04/30/21 04:41 Procalcitonin 21.10 ng/mL (<0.15) 04/24/21 12:14 TSH 1.400 mlU/mL (0.270-4.200) 04/23/21 10:33 Urine Color [place] (Yellow) 04/27/21 16:16 Urine Turbidity Cloudy (Clear) 04/27/21 16:16 Urine pH 5.0 (5.0-7.0) 04/27/21 16:16 Ur Specific [place] 1.014 (1.003-1.030) 04/27/21 16:16 Urine Protein <15 mg/dl mg/dL (Negative) 04/27/21 16:16 Urine Glucose (UA) >=500 mg/dL (Negative) 04/27/21 16:16 Urine Ketones Neg mg/dL (Negative) 04/27/21 16:16 Urine Blood Neg (Negative) 04/27/21 16:16 Urine Nitrite Neg (Negative) 04/27/21 16:16 Urine Bilirubin Neg (Negative) 04/27/21 16:16 Urine Urobilinogen 2.0 mg/dL (<2.0) 04/27/21 16:16 Ur Leukocyte Esterase Neg (Negative) 04/27/21 16:16 Urine WBC (Auto) 1.0 /HPF (0.0-6.0) 04/27/21 16:16 Urine RBC (Auto) 1.0 /HPF (0.0-6.0) 04/27/21 16:16 U Epithel Cells (Auto) < 1.0 /HPF (0-13.0) 04/24/21 08:40 Urine Bacteria (Auto) 1+ /HPF (Negative) 04/27/21 16:16 Amorphous Crystals Few 04/27/21 16:16 Urine Yeast (Budding) 3+ /HPF 04/27/21 16:16 Vancomycin Trough 38.2 ug/mL (5.0-20.0) H 04/26/21 19:27 Coronavirus (PCR) Negative (Negative) 04/25/21 Unknown Blood Type A POSITIVE 05/03/21 18:00 Antibody Screen Negative 05/03/21 18:00 Crossmatch See Detail 05/03/21 18:00 Microbiology: Microbiology 05/03/21 Unknown Knee - Right Surgical Culture - Preliminary 05/03/21 Unknown Knee - Right Anaerobic Culture - Preliminary Sanchez/IV: Voiding Method Indwelling Catheter Active Medications - Current Medications Current Medications: Generic Name Dose Route Start Last Admin Trade Name Freq PRN Reason Stop Dose Admin Acetaminophen 650 mg 04/23/21 11:54 05/02/21 18:33 Acetaminophen 325 Mg Tab PO 650 mg Q6H PRN Administration Pain MILD(1-3)/Fever >100.5/SMITH Albuterol 2.5 mg 05/02/21 12:56 05/07/21 04:22 Albuterol 2.5 Mg/3 Ml Nebu IH 2.5 mg Q4HRT PRN Administration Shortness Of Breath Lipase/Protease/Amylase 1 each 04/29/21 15:42 05/05/21 20:40 Lipase 10,500/Protease 25,000/Amylase 43,750 (Units) Dr Rodriguez FEEDTUBE 1 each PRN PRN Administration For Clogged Feeding Tube Lipase/Protease/Amylase 1 each 05/06/21 16:05 Lipase 10,500/Protease 25,000/Amylase 43,750 (Units) Dr Rodriguez FEEDTUBE PRN PRN For Clogged Feeding Tube Dextrose 50 ml 04/26/21 14:00 Dextrose 50% In Water (25gm) 50 Ml Syringe IV Q30MIN PRN Hypoglycemia Protocol Famotidine 20 mg 04/29/21 10:00 05/06/21 09:38 Famotidine 20 Mg Tab FEEDTUBE 20 mg DAILY AMIRA Administration Hydromorphone HCl 0.5 mg 04/23/21 11:54 05/04/21 21:23 Hydromorphone 1 Mg/1 Ml Inj IV 0.5 mg Q23H PRN Administration Pain , Severe (7-10) Cefazolin Sodium 2 gm/ Sodium 100 mls @ 200 mls/hr 05/02/21 14:00 05/07/21 01:27 Chloride IV 06/14/21 20:29 200 mls/hr Q6H AMIRA Administration Protocol Insulin Human Isoph/Insulin Regular 48 unit 05/02/21 09:30 05/06/21 18:15 Insulin Nph/Regular 70/30 Inj SUB-Q 48 unit BIDDIAB AMIRA Administration Insulin Human Lispro 0 unit 04/29/21 12:00 05/06/21 23:39 Insulin Lispro 100 Unit/Ml SUB-Q 3 unit Q6HR AMIRA Administration Protocol Ketorolac Tromethamine 15 mg 05/03/21 18:59 Ketorolac 30 Mg/1 Ml Inj IV 05/08/21 18:58 Q6H PRN Pain, Moderate (4-6) Morphine Sulfate 2 mg 05/03/21 18:59 05/03/21 23:04 Morphine 2 Mg/1 Ml Inj IV 2 mg Q4H PRN Administration Pain, Moderate (4-6) Morphine Sulfate 4 mg 05/03/21 18:59 Morphine 4 Mg/1 Ml Inj IV Q4H PRN Pain , Severe (7-10) Oxycodone/Acetaminophen 1 tab 04/23/21 11:54 05/06/21 15:07 Oxycodone /Acetaminophen 5-325mg Tab PO 1 tab Q16H PRN Administration Pain, Moderate (4-6) Senna 17.2 mg 04/25/21 22:00 05/06/21 21:42 Sennosides 8.6 Mg Tab PO Not Given QHS AMIRA Simple Syrup 15 ml 04/29/21 15:42 Simple Syrup 15 Ml FEEDTUBE PRN PRN Hypoglycemia Simple Syrup 30 ml 04/29/21 15:42 Simple Syrup 15 Ml FEEDTUBE PRN PRN Hypoglycemia Simple Syrup 15 ml 05/06/21 16:05 Simple Syrup 15 Ml FEEDTUBE PRN PRN Hypoglycemia Simple Syrup 30 ml 05/06/21 16:05 Simple Syrup 15 Ml FEEDTUBE PRN PRN Hypoglycemia Sodium Bicarbonate 325 mg 04/29/21 15:42 Sodium Bicarbonate 325 Mg Tab FEEDTUBE PRN PRN For Clogged Feeding Tube Sodium Bicarbonate 325 mg 05/06/21 16:05 Sodium Bicarbonate 325 Mg Tab FEEDTUBE PRN PRN For Clogged Feeding Tube Sodium Chloride 10 ml 04/23/21 22:00 05/06/21 22:46 Sodium Chloride 0.9% 10 Ml Flush Syringe IV 10 ml BID AMIRA Administration Sodium Chloride 10 ml 04/23/21 11:54 04/24/21 11:15 Sodium Chloride 0.9% 10 Ml Flush Syringe IV 10 ml PRN PRN Administration LINE FLUSH Sodium Chloride 10 ml 05/03/21 19:00 Sodium Chloride 0.9% 10 Ml Flush Syringe IV PRN AMIRA Nutrition/Malnutrition Assess - Dietary Evaluation Nutrition/Malnutrition Findings: Nutrition Notes Start: 04/26/21 09:53 Freq: Status: Active Protocol: Document 05/06/21 16:07 HOANG (Rec: 05/06/21 16:09 HOANG [id number]) Nutrition Notes Initial or Follow up Brief Note Current Diet TF - Vital AF 1.2 at 65ml/hr Labs/Tests POC Glu: 147, 200 Subjective/Other Information RECEIVING MANAGER evaluated pt yesterday; recommended continued NPO status. Pt scheduled for D/C today. Nutrition Intervention Nutrition Support: Glucerna 1.2 currently out of stock. Will substitute with Vital AF 1.2 at 65ml/hr with 100ml water flush q4h. Follow-Up By: 05/08/21 Additional Comments F/U: Change TF formula back to Glucerna 1.2 if back in stock
[2021-04-25] MEDS ORDERED: POTASSIUM CHLORIDE 20 MEQ PACKET FEEDTUBE ONE (11:38)
[2021-04-25 11:46] LABS: ABG Base Excess -7.1 mmol/L (-2.0-3.0); ABG HCO3 16.2 mmol/L (20.0-26.0); ABG Methemoglobin 0.6 % (0.0-1.5); ABG Oxygen Saturation 96.9 % (95.0-99.0); ABG PCO2 25.3 mm Hg; ABG PH 7.426 pH Units (7.350-7.450); ABG PO2 73.2 mm Hg (80.0-90.0)
--- NOTE | 2021-04-25 12:26 | Consultation ---
History of Present Illness - Reason for Consult Consult date: 04/25/21 - History of Present Illness 51 yo F PMHx DM2, OA, obesit,y medication non-compliance presented to the hospital complaining of generalized unwellness. She complained of being too weak to walk with DKA symptoms. She also noted decreased PO intake for the past one week. She has not been taking her diabetes medications. SHe was recently admitted 2 weeks ago. Afebrile, normal white count. Blood cultures with GPC in chains in both sets. IMaging personally viewed: CXR: No obvious infectious abnormality. Review of Systems: Bold if positive, otherwise negative General: fevers, chills, rigors HEENT: visual disturbance, diplopia, eye pain Respiratory: cough, sputum, hemoptysis, shortness of breath Cardiovascular: chest pain, syncope Gastrointestinal: nausea, vomiting, diarrhea, abdominal pain Genitourinary: dysuria, hematuria, flank pain Musculoskeletal: neck pain, back pain, joint pain, edema Neurologic: headaches, seizures Hematologic: easy bruising or bleeding Endocrine: night sweats, acute weight loss Skin: rash, jaundice, redness Psychiatric: suicidal, homicidal ideation Past History Past Medical History: arthritis, diabetes Past Surgical History: , Other (Right knee surgery) Social history: single. denies: smoking, alcohol abuse, prescription drug abuse Family history: diabetes, hypertension Medications and Allergies Allergies Allergy/AdvReac Type Severity Reaction Status Date / Time No Known Allergies Allergy Verified 08/21/18 13:05 Home Medications Medication Instructions Recorded Confirmed Last Taken Type Insulin Regular, Human [Humulin R] See Protocol IJ ACHS 30 Days vial 08/30/18 03/12/20 03/11/20 Rx ALBUTEROL NEB's [Proventil 0.083% 2.5 mg IH Q4H PRN #1 nebu 01/04/20 03/12/20 Unknown Rx NEBS] Acetaminophen [Acetaminophen TAB] 650 mg PO Q4H PRN tablet 01/04/20 03/12/20 03/10/[address] [Voltaren Dr] 75 mg PO BID #30 tablet 01/04/20 03/12/20 Unknown Rx Insulin Lispro [Humalog] 0 unit SUB-Q Q6HR #1 vial 01/04/20 03/12/20 Unknown Rx Insulin NPH/Regular [NovoLIN 70/30] 30 unit SUB-Q BIDDIAB #1 units 01/04/20 03/12/20 Unknown Rx hydrALAZINE [Apresoline TAB] 10 mg PO Q8HR #90 tablet 01/04/20 03/12/20 Unknown Rx Sennosides Tab [Senokot] 8.6 mg PO Q12HR #60 tablet 03/16/20 Unknown Rx oxyCODONE /ACETAMINOPHEN [Percocet 2 tab PO Q6H PRN #20 tablet 03/16/20 Unknown Rx 5/325 mg] Apixaban [Eliquis] 5 mg PO QDAY #90 tablet 03/22/20 Unknown Rx Amlodipine Besylate [Norvasc] 5 mg PO DAILY #30 tablet 03/30/20 Unknown Rx Active Meds: Active Medications Acetaminophen (Acetaminophen 325 Mg Tab) 650 mg PO Q6H PRN PRN Reason: Pain MILD(1-3)/Fever >100.5/SMITH Dextrose (Dextrose 50% In Water (25gm) 50 Ml Syringe) 0 ml IV Q30MIN PRN; Protocol PRN Reason: Hypoglycemia Enoxaparin Sodium (Enoxaparin 40 Mg/0.4 Ml Inj) 40 mg SUB-Q BID AMIRA; Protocol Last Admin: 04/25/21 09:26 Dose: 40 mg Documented by: Famotidine (Famotidine 20 Mg/2 Ml Inj) 20 mg IV QDAY [facility] Last Admin: 04/25/21 09:26 Dose: 20 mg Documented by: Hydromorphone HCl (Hydromorphone 1 Mg/1 Ml Inj) 0.5 mg IV Q23H PRN PRN Reason: Pain , Severe (7-10) Last Admin: 04/24/21 21:57 Dose: 0.5 mg Documented by: Insulin Human Regular 100 (units/ Sodium Chloride) 100 mls @ 1 mls/hr IV TITR AMIRA; Protocol Last Titration: 04/25/21 11:31 Dose: Infused Documented by: Vancomycin HCl 2,000 mg/ (Sodium Chloride) 540 mls @ 250 mls/hr IV Q12H AMIRA Last Admin: 04/25/21 09:06 Dose: 250 mls/hr Documented by: Cefepime HCl (Cefepime/Ns 2 Gm/100 Ml) 2 gm in 100 mls @ 200 mls/hr IV Q8HR [facility]; Protocol Magnesium Sulfate (Magnesium Sulfate 4gm/100ml) 4 gm in 100 mls @ 25 mls/hr IV ONCE@0930 [facility] Stop: 04/25/21 13:30 Last Admin: 04/25/21 09:26 Dose: 25 mls/hr Documented by: Potassium Phosphate 30 mmol/ (Sodium Chloride) 510 mls @ 85 mls/hr IV ONCE@1230 [facility] Stop: 04/25/21 18:30 Potassium Chloride/Dextrose/Sod Cl (D5w/0.45% Nacl/Kcl 40 Meq) 40 meq in 1,000 mls @ 125 mls/hr IV DIRECT AMIRA Oxycodone/Acetaminophen (Oxycodone /Acetaminophen 5-325mg Tab) 1 tab PO Q16H PRN PRN Reason: Pain, Moderate (4-6) Sodium Chloride (Sodium Chloride 0.9% 10 Ml Flush Syringe) 10 ml IV BID AMIRA Last Admin: 04/25/21 09:28 Dose: 10 ml Documented by: Sodium Chloride (Sodium Chloride 0.9% 10 Ml Flush Syringe) 10 ml IV PRN PRN PRN Reason: LINE FLUSH Last Admin: 04/24/21 11:15 Dose: 10 ml Documented by: Physical Examination - Physical Exam Narrative exam: Physical Exam: Constitutional: Alert, cooperative. No acute distress Head, Ears, Nose: Normocephalic, atraumatic. External ears, nose normal Eyes: Conjunctivae/corneas clear. No icterus. No ptosis. Neck: Supple, no meningeal signs Oral: dentition fair, no thrush Cardiovascular: S1, S2 normal. Respiratory: Good air entry, clear to auscultation bilaterally GI: Soft, non-tender; bowel sounds normal. No peritoneal signs. Musculoskeletal: No pedal edema, no cyanosis. Skin: No rash or abscess Hem/Lymphatic: No palpable cervical or supraclavicular nodes. No lymphangitis Psych: Mood ok. Affect normal Neurological: Awake, alert, oriented. No gross abnormality - Constitutional Vitals: Vital Signs Temp Pulse Resp BP Pulse Ox 97.5 F L 120 H 27 H 142/79 95 04/25/21 11:52 04/25/21 11:00 04/25/21 11:00 04/25/21 11:00 04/25/21 11:00 Temperature -Last 24 Hours Temperature 97.5 F Temperature 97.6 F Temperature 98.8 F Temperature 98.2 F Temperature 98.3 F Temperature 98.8 F Temperature 97.9 F Results - Labs CBC & Chem 7: 04/25/21 08:10 04/25/21 08:10 Labs: Abnormal lab results 04/23/21 04/24/21 04/24/21 Range/Units 14:01 12:14 12:14 Hgb (10.1-14.3) gm/dl Hct (30.3-42.9) % MCH (28-32) pg Seg Neuts % (Manual) (40.0-70.0) % Lymphocytes # (Manual) (1.2-5.4) K/mm3 ABG pO2 (80.0-90.0) mm Hg ABG HCO3 (20.0-26.0) mmol/L ABG Base Excess (-2.0-3.0) mmol/L ABG Hemoglobin (12.0-16.0) gm/dl Oxyhemoglobin (95.0-99.0) % Potassium 3.2 L (3.6-5.0) mmol/L Chloride 108.7 H (98-107) mmol/L Carbon Dioxide 6 L* 16 L (22-30) mmol/L BUN 24 H (7-17) mg/dL Glucose 594 H* 160 H (65-100) mg/dL POC Glucose (70-105) mg/dL Lactic Acid 2.50 H* (0.7-2.0) mmol/L Calcium 10.5 H (8.4-10.2) mg/dL Phosphorus 0.70 L* D (2.5-4.5) mg/dL Magnesium (1.7-2.3) mg/dL C-Reactive Protein (0.00-1.30) mg/dL 04/24/21 04/24/21 04/24/21 Range/Units 13:02 14:00 15:14 Hgb (10.1-14.3) gm/dl Hct (30.3-42.9) % MCH (28-32) pg Seg Neuts % (Manual) (40.0-70.0) % Lymphocytes # (Manual) (1.2-5.4) K/mm3 ABG pO2 (80.0-90.0) mm Hg ABG HCO3 (20.0-26.0) mmol/L ABG Base Excess (-2.0-3.0) mmol/L ABG Hemoglobin (12.0-16.0) gm/dl Oxyhemoglobin (95.0-99.0) % Potassium (3.6-5.0) mmol/L Chloride (98-107) mmol/L Carbon Dioxide (22-30) mmol/L BUN (7-17) mg/dL Glucose (65-100) mg/dL POC Glucose 138 H 150 H 145 H (70-105) mg/dL Lactic Acid (0.7-2.0) mmol/L Calcium (8.4-10.2) mg/dL Phosphorus (2.5-4.5) mg/dL Magnesium (1.7-2.3) mg/dL C-Reactive Protein (0.00-1.30) mg/dL 04/24/21 04/24/21 04/24/21 Range/Units 16:07 17:11 18:12 Hgb (10.1-14.3) gm/dl Hct (30.3-42.9) % MCH (28-32) pg Seg Neuts % (Manual) (40.0-70.0) % Lymphocytes # (Manual) (1.2-5.4) K/mm3 ABG pO2 (80.0-90.0) mm Hg ABG HCO3 (20.0-26.0) mmol/L ABG Base Excess (-2.0-3.0) mmol/L ABG Hemoglobin (12.0-16.0) gm/dl Oxyhemoglobin (95.0-99.0) % Potassium (3.6-5.0) mmol/L Chloride (98-107) mmol/L Carbon Dioxide (22-30) mmol/L BUN (7-17) mg/dL Glucose (65-100) mg/dL POC Glucose 148 H 156 H 153 H (70-105) mg/dL Lactic Acid (0.7-2.0) mmol/L Calcium (8.4-10.2) mg/dL Phosphorus (2.5-4.5) mg/dL Magnesium (1.7-2.3) mg/dL C-Reactive Protein (0.00-1.30) mg/dL 04/24/21 04/24/2104/24/21 Range/Units 18:24 19:55 20:55 Hgb (10.1-14.3) gm/dl Hct (30.3-42.9) % MCH (28-32) pg Seg Neuts % (Manual) (40.0-70.0) % Lymphocytes # (Manual) (1.2-5.4) K/mm3 ABG pO2 (80.0-90.0) mm Hg ABG HCO3 (20.0-26.0) mmol/L ABG Base Excess (-2.0-3.0) mmol/L ABG Hemoglobin (12.0-16.0) gm/dl Oxyhemoglobin (95.0-99.0) % Potassium (3.6-5.0) mmol/L Chloride 109.2 H (98-107) mmol/L Carbon Dioxide 15 L (22-30) mmol/L BUN 22 H (7-17) mg/dL Glucose 159 H (65-100) mg/dL POC Glucose 176 H 146 H (70-105) mg/dL Lactic Acid (0.7-2.0) mmol/L Calcium (8.4-10.2) mg/dL Phosphorus 1.80 L D (2.5-4.5) mg/dL Magnesium (1.7-2.3) mg/dL C-Reactive Protein 24.30 H (0.00-1.30) mg/dL 04/24/21 04/24/21 04/24/21 Range/Units 22:04 23:02 23:13 Hgb (10.1-14.3) gm/dl Hct (30.3-42.9) % MCH (28-32) pg Seg Neuts % (Manual) (40.0-70.0) % Lymphocytes # (Manual) (1.2-5.4) K/mm3 ABG pO2 (80.0-90.0) mm Hg ABG HCO3 (20.0-26.0) mmol/L ABG Base Excess (-2.0-3.0) mmol/L ABG Hemoglobin (12.0-16.0) gm/dl Oxyhemoglobin (95.0-99.0) % Potassium (3.6-5.0) mmol/L Chloride (98-107) mmol/L Carbon Dioxide (22-30) mmol/L BUN (7-17) mg/dL Glucose (65-100) mg/dL POC Glucose 169 H 144 H (70-105) mg/dL Lactic Acid 3.10 H* (0.7-2.0) mmol/L Calcium (8.4-10.2) mg/dL Phosphorus (2.5-4.5) mg/dL Magnesium (1.7-2.3) mg/dL C-Reactive Protein (0.00-1.30) mg/dL 04/25/21 04/25/21 04/25/21 Range/Units 00:05 01:28 02:03 Hgb (10.1-14.3) gm/dl Hct (30.3-42.9) % MCH (28-32) pg Seg Neuts % (Manual) (40.0-70.0) % Lymphocytes # (Manual) (1.2-5.4) K/mm3 ABG pO2 (80.0-90.0) mm Hg ABG HCO3 (20.0-26.0) mmol/L ABG Base Excess (-2.0-3.0) mmol/L ABG Hemoglobin (12.0-16.0) gm/dl Oxyhemoglobin (95.0-99.0) % Potassium (3.6-5.0) mmol/L Chloride (98-107) mmol/L Carbon Dioxide (22-30) mmol/L BUN (7-17) mg/dL Glucose (65-100) mg/dL POC Glucose 150 H 142 H 148 H (70-105) mg/dL Lactic Acid (0.7-2.0) mmol/L Calcium (8.4-10.2) mg/dL Phosphorus (2.5-4.5) mg/dL Magnesium (1.7-2.3) mg/dL C-Reactive Protein (0.00-1.30) mg/dL 04/25/21 04/25/21 04/25/21 Range/Units 03:07 04:17 05:48 Hgb (10.1-14.3) gm/dl Hct (30.3-42.9) % MCH (28-32) pg Seg Neuts % (Manual) (40.0-70.0) % Lymphocytes # (Manual) (1.2-5.4) K/mm3 ABG pO2 (80.0-90.0) mm Hg ABG HCO3 (20.0-26.0) mmol/L ABG Base Excess (-2.0-3.0) mmol/L ABG Hemoglobin (12.0-16.0) gm/dl Oxyhemoglobin (95.0-99.0) % Potassium (3.6-5.0) mmol/L Chloride (98-107) mmol/L Carbon Dioxide (22-30) mmol/L BUN (7-17) mg/dL Glucose (65-100) mg/dL POC Glucose 161 H 158 H 136 H (70-105) mg/dL Lactic Acid (0.7-2.0) mmol/L Calcium (8.4-10.2) mg/dL Phosphorus (2.5-4.5) mg/dL Magnesium (1.7-2.3) mg/dL C-Reactive Protein (0.00-1.30) mg/dL 04/25/21 04/25/21 04/25/21 Range/Units 06:52 07:58 08:10 Hgb 9.5 L (10.1-14.3) gm/dl Hct 28.8 L (30.3-42.9) % MCH 26 L (28-32) pg Seg Neuts % (Manual) 33.0 L (40.0-70.0) % Lymphocytes # (Manual) 1.1 L (1.2-5.4) K/mm3 ABG pO2 (80.0-90.0) mm Hg ABG HCO3 (20.0-26.0) mmol/L ABG Base Excess (-2.0-3.0) mmol/L ABG Hemoglobin (12.0-16.0) gm/dl Oxyhemoglobin (95.0-99.0) % Potassium (3.6-5.0) mmol/L Chloride (98-107) mmol/L Carbon Dioxide (22-30) mmol/L BUN (7-17) mg/dL Glucose (65-100) mg/dL POC Glucose 137 H 143 H (70-105) mg/dL Lactic Acid (0.7-2.0) mmol/L Calcium (8.4-10.2) mg/dL Phosphorus (2.5-4.5) mg/dL Magnesium (1.7-2.3) mg/dL C-Reactive Protein (0.00-1.30) mg/dL 04/25/21 04/25/21 04/25/21 Range/Units 08:10 08:10 08:53 Hgb (10.1-14.3) gm/dl Hct (30.3-42.9) % MCH (28-32) pg Seg Neuts % (Manual) (40.0-70.0) % Lymphocytes # (Manual) (1.2-5.4) K/mm3 ABG pO2 (80.0-90.0) mm Hg ABG HCO3 (20.0-26.0) mmol/L ABG Base Excess (-2.0-3.0) mmol/L ABG Hemoglobin (12.0-16.0) gm/dl Oxyhemoglobin (95.0-99.0) % Potassium 3.3 L (3.6-5.0) mmol/L Chloride 109.0 H (98-107) mmol/L Carbon Dioxide 16 L (22-30) mmol/L BUN 23 H (7-17) mg/dL Glucose 151 H (65-100) mg/dL POC Glucose 132 H (70-105) mg/dL Lactic Acid 2.10 H* (0.7-2.0) mmol/L Calcium (8.4-10.2) mg/dL Phosphorus 2.20 L D (2.5-4.5) mg/dL Magnesium 1.60 L (1.7-2.3) mg/dL C-Reactive Protein (0.00-1.30) mg/dL 04/25/21 04/25/21 04/25/21 Range/Units 09:59 11:20 11:20 Hgb (10.1-14.3) gm/dl Hct (30.3-42.9) % MCH (28-32) pg Seg Neuts % (Manual) (40.0-70.0) % Lymphocytes # (Manual) (1.2-5.4) K/mm3 ABG pO2 73.2 L (80.0-90.0) mm Hg ABG HCO3 16.2 L (20.0-26.0) mmol/L ABG Base Excess -7.1 L (-2.0-3.0) mmol/L ABG Hemoglobin 8.7 L (12.0-16.0) gm/dl Oxyhemoglobin 94.8 L (95.0-99.0) % Potassium (3.6-5.0) mmol/L Chloride (98-107) mmol/L Carbon Dioxide (22-30) mmol/L BUN (7-17) mg/dL Glucose (65-100) mg/dL POC Glucose 141 H 141 H (70-105) mg/dL Lactic Acid (0.7-2.0) mmol/L Calcium (8.4-10.2) mg/dL Phosphorus (2.5-4.5) mg/dL Magnesium (1.7-2.3) mg/dL C-Reactive Protein (0.00-1.30) mg/dL 04/25/21 Range/Units 12:04 Hgb (10.1-14.3) gm/dl Hct (30.3-42.9) % MCH (28-32) pg Seg Neuts % (Manual) (40.0-70.0) % Lymphocytes # (Manual) (1.2-5.4) K/mm3 ABG pO2 (80.0-90.0) mm Hg ABG HCO3 (20.0-26.0) mmol/L ABG Base Excess (-2.0-3.0) mmol/L ABG Hemoglobin (12.0-16.0) gm/dl Oxyhemoglobin (95.0-99.0) % Potassium (3.6-5.0) mmol/L Chloride (98-107) mmol/L Carbon Dioxide (22-30) mmol/L BUN (7-17) mg/dL Glucose (65-100) mg/dL POC Glucose 129 H (70-105) mg/dL Lactic Acid (0.7-2.0) mmol/L Calcium (8.4-10.2) mg/dL Phosphorus (2.5-4.5) mg/dL Magnesium (1.7-2.3) mg/dL C-Reactive Protein (0.00-1.30) mg/dL Assessment and Plan Cultures: Blood culture GPC in chains A/P: 51 yo F PMhx DM2, HTN, morbid obesity preents with sepsis #Acute sepsis: present with hypothermia, tachycardia, and tachypnea. Secondary to GPC bacteremia/ #GPC in bacteremia: in chains at present, possible Strep bacteremia. Unclear source for now, pending finalization of the cultures. Possible from right knee wound/possible septic arthritis #DM2: tight glyvcemic control for best outcomes. #Right knee wound/?septic arthritis Recs: -Continue vancomycin dosed per pharmacy, goal trough 10-20. -De-escalate cefepime to ceftriaxone 2g q24h. -Follow up blood cultures for finalization -Ordered repeat blood cultures for AM labs -Ordered TTE -Follow up ortho recs/?joint aspirationn for Dx of septic arthritis. Thank you for the consult, we will continue to follow. Candelario Chawla MD [facility] O: [phone] F: [phone]
[2021-04-25] MEDS ORDERED: POTASSIUM PHOSPHATE 30 MMOL in SODIUM CHLORIDE 0.9% 500 ML 500 ML IV SCH (12:30)
[2021-04-25] MEDS: INSULIN REGULAR, HUMAN 100 UNITS in SODIUM CHLORIDE 0.9% 99 ML IV SCH ×2 (12:48→22:12)
[2021-04-25 13:05] LABS: Blood Urea Nitrogen 21 mg/dL (7-17); Calcium 8.9 mg/dL (8.4-10.2); Hemolysis Index 34
[2021-04-25 13:07] LABS: BUN/Creatinine Ratio 35
[2021-04-25] MEDS ORDERED: CEFEPIME/NS 2 GM/100 ML 2 GM/100 ML BAG IV SCH (14:00)
--- NOTE | 2021-04-25 14:25 | Progress Note ---
Assessment and Plan Acute metabolic acidosis Diabetic ketoacidosis Acute toxic metabolic encephalopathy Obesity Osteoarthritis Hypercalcemia - NT suction done at bedside and work of breathing a little better - will schedule NT suction q4h over next 24 hours - continue aspiration precautions (HOB > 40 degrees) - continue DKA protocol (serial electrolytes, monitor AG, volume resuscitation) - repeat lactic acid level in am and follow procalcitonin levels - seen by ID team and AB's adjusted (Beta Hemolytic streptococcal bacteremia) - orthopedic consult appreciated; no plans for athrocentesis - continue volume resuscitation - wean supplemental oxygen for target O2 sat's > 90% acutely - prn bronchodilators with pulmonary hygiene per RT - avoid nephrotoxins, renally dose all medications - avoid benzodiazepine's, reduce the possibility of delirium - prn analgesia per CPOT score - Maintenance of sleep-wake cycle, avoid delirium - G.I. & VTE prophylaxis - PT/OT/ROM exercises - continue mobility protocols for pressure ulcer prophylaxis - Monitor hemodynamics closely - continue other care per attending / other consultants - discharge planning ongoing concurrentl .... Re-evaluate in am & prn CONDITION: CRITICAL PROGNOSIS: GUARDED CODE STATUS: FULL CODE The high probability of a clinically significant, sudden or life-threatening deterioration of the [immunologic, endocrinologic & neurologic] system(s) r equired my full and direct attention, intervention and personal management. The aggregate critical care time was [35] minutes without overlap. Time includes spent on; [x] Data Review and interpretation [x] Patient assessment and monitoring of vital signs [x] Documentation [x] Medication orders and management Subjective Date of service: 04/25/21 Principal diagnosis: HAGMA; DKA; AMS; Obesity; Osteoarthritis; Hypercalcemia Interval history: Patient is seen today for: Acute metabolic acidosis; Diabetic ketoacidosis; Acute toxic metabolic encephalopathy; Obesity; Osteoarthritis; Hypercalcemia Seen and examined at bedside; 24hour events reviewed; nursing and respiratory care staff consulted; no adverse overnight events reported to me; resting peacefully in bed; remains septic essentially; work of breathing is increased; remains on IV insulin therapy and with a lactic acidosis (trending down) Objective Vital Signs - 12hr 04/25/21 04/25/21 04/25/21 02:30 03:00 04:00 Temperature 98.8 F Pulse Rate 118 H 121 H 113 H Respiratory 31 H 32 H 34 H Rate Blood Pressure 119/61 117/63 120/62 O2 Sat by Pulse 96 95 95 Oximetry 04/25/21 04/25/21 04/25/21 04:30 05:00 05:30 Temperature Pulse Rate 116 H 119 H 120 H Respiratory 39 H 21 19 Rate Blood Pressure 122/87 103/71 103/71 O2 Sat by Pulse 96 93 93 Oximetry 04/25/21 04/25/21 04/25/21 06:00 06:30 07:00 Temperature Pulse Rate 121 H 117 H 115 H Respiratory 29 H 35 H 12 Rate Blood Pressure 131/62 131/62 133/68 O2 Sat by Pulse 93 96 94 Oximetry 04/25/21 04/25/21 04/25/21 07:29 07:30 08:00 Temperature 97.6 F Pulse Rate 117 H 121 H Respiratory 33 H 37 H Rate Blood Pressure 133/68 133/75 O2 Sat by Pulse 94 93 Oximetry 04/25/21 04/25/21 04/25/21 08:30 09:00 09:30 Temperature Pulse Rate 117 H 116 H 118 H Respiratory 31 H 26 H 35 H Rate Blood Pressure 160/70 137/66 140/75 O2 Sat by Pulse 95 95 Oximetry 04/25/21 04/25/21 04/25/21 10:00 10:30 11:00 Temperature Pulse Rate 120 H 120 H 120 H Respiratory 30 H 27 H 27 H Rate Blood Pressure 140/75 142/79 142/79 O2 Sat by Pulse 95 96 95 Oximetry 04/25/21 04/25/21 04/25/21 11:30 11:52 12:00 Temperature 97.5 F L Pulse Rate 117 H 119 H Respiratory 18 41 H Rate Blood Pressure 125/77 134/74 O2 Sat by Pulse 95 91 Oximetry 04/25/21 04/25/21 04/25/21 12:30 13:00 13:30 Temperature Pulse Rate 117 H 119 H 117 H Respiratory 39 H 31 H 41 H Rate Blood Pressure 112/73 111/69 111/84 O2 Sat by Pulse 93 93 94 Oximetry 04/25/21 14:00 Temperature Pulse Rate 116 H Respiratory 42 H Rate Blood Pressure 103/69 O2 Sat by Pulse 94 Oximetry Constitutional: appears uncomfortable, other (middle aged obese female with mildly increased work of breathing at rest) Eyes: non-icteric ENT: oropharynx dry Neck: supple, no lymphadenopathy, no JVD Effort: mildly labored Ascultation: Bilateral: diminished breath sounds, rhonchi (and referred upper airway sounds) Percussion: Bilateral: not dull Cardiovascular: regular rate and rhythm Gastrointestinal: hypoactive bowel sounds, soft, non-tender, non-distended Integumentary: rash (perineal) Extremities: no cyanosis, no edema, pulses normal, no ischemia or petechiae Neurologic: non-focal exam (grossly), pupils equal and round, motor strength normal and, other (somnolent) Psychiatric: other (unable to assess re: AMS) CBC and BMP: 04/25/21 08:10 04/25/21 12:26 ABG, PT/INR, D-dimer: ABG ABG pH 7.426 pH Units (7.350-7.450) 04/25/21 11:20 ABG pCO2 25.3 mm Hg 04/25/21 11:20 ABG pO2 73.2 mm Hg (80.0-90.0) L 04/25/21 11:20 ABG O2 Saturation 96.9 % (95.0-99.0) 04/25/21 11:20 Abnormal lab findings: Abnormal Labs 04/23/21 04/23/21 04/23/21 10:33 10:33 10:33 Hgb Hct MCH 26 L Seg Neuts % (Manual) Lymphocytes % (Manual) 7.0 L Nucleated RBC % 2.0 H Lymphocytes # (Manual) 0.5 L ABG pO2 ABG HCO3 ABG Base Excess ABG Hemoglobin VBG pH 7.180 L* Oxyhemoglobin Sodium 122 L Potassium 3.0 L Chloride 84.8 L Carbon Dioxide 6 L* BUN 49 H Creatinine 1.4 H Glucose 775 H* POC Glucose Hemoglobin A1c Lactic Acid Calcium 12.2 H* Phosphorus Magnesium Alkaline Phosphatase 130 H C-Reactive Protein Albumin 2.9 L 04/23/21 04/23/21 04/23/21 10:40 12:44 14:01 Hgb Hct MCH Seg Neuts % (Manual) Lymphocytes % (Manual) Nucleated RBC % Lymphocytes # (Manual) ABG pO2 ABG HCO3 ABG Base Excess ABG Hemoglobin VBG pH Oxyhemoglobin Sodium Potassium Chloride Carbon Dioxide BUN Creatinine Glucose POC Glucose > 600 H 550 H Hemoglobin A1c Lactic Acid Calcium Phosphorus 1.50 L Magnesium Alkaline Phosphatase C-Reactive Protein Albumin 04/23/21 04/23/21 04/23/21 14:01 14:56 15:43 Hgb Hct MCH Seg Neuts % (Manual) Lymphocytes % (Manual) Nucleated RBC % Lymphocytes # (Manual) ABG pO2 ABG HCO3 ABG Base Excess ABG Hemoglobin VBG pH Oxyhemoglobin Sodium 125 L 131 L Potassium 3.0 L 2.9 L* Chloride 89.2 L Carbon Dioxide 6 L* 8 L* BUN 45 H 39 H Creatinine 1.3 H Glucose 594 H* 434 H POC Glucose 425 H Hemoglobin A1c Lactic Acid Calcium 10.9 H 10.3 H Phosphorus Magnesium Alkaline Phosphatase C-Reactive Protein Albumin 04/23/21 04/23/21 04/23/21 15:48 17:21 18:07 Hgb Hct MCH Seg Neuts % (Manual) Lymphocytes % (Manual) Nucleated RBC % Lymphocytes # (Manual) ABG pO2 ABG HCO3 ABG Base Excess ABG Hemoglobin VBG pH Oxyhemoglobin Sodium Potassium Chloride Carbon Dioxide BUN Creatinine Glucose POC Glucose 410 H 407 H 428 H Hemoglobin A1c Lactic Acid Calcium Phosphorus Magnesium Alkaline Phosphatase C-Reactive Protein Albumin 04/23/21 04/23/21 04/23/21 19:13 19:54 19:54 Hgb Hct MCH Seg Neuts % (Manual) Lymphocytes % (Manual) Nucleated RBC % Lymphocytes # (Manual) ABG pO2 ABG HCO3 ABG Base Excess ABG Hemoglobin VBG pH Oxyhemoglobin Sodium 131 L Potassium 3.1 L Chloride 95.9 L Carbon Dioxide 7 L* BUN 39 H Creatinine Glucose 391 H POC Glucose 350 H Hemoglobin A1c Lactic Acid Calcium 11.2 H Phosphorus 1.10 L D Magnesium Alkaline Phosphatase C-Reactive Protein Albumin 04/23/21 04/23/21 04/23/21 20:12 20:59 22:05 Hgb Hct MCH Seg Neuts % (Manual) Lymphocytes % (Manual) Nucleated RBC % Lymphocytes # (Manual) ABG pO2 ABG HCO3 ABG Base Excess ABG Hemoglobin VBG pH Oxyhemoglobin Sodium Potassium Chloride Carbon Dioxide BUN Creatinine Glucose POC Glucose 365 H 286 H 257 H Hemoglobin A1c Lactic Acid Calcium Phosphorus Magnesium Alkaline Phosphatase C-Reactive Protein Albumin 04/23/21 04/23/21 04/23/21 22:23 22:59 23:57 Hgb Hct MCH Seg Neuts % (Manual) Lymphocytes % (Manual) Nucleated RBC % Lymphocytes # (Manual) ABG pO2 ABG HCO3 ABG Base Excess ABG Hemoglobin VBG pH Oxyhemoglobin Sodium 135 L Potassium 3.2 L Chloride Carbon Dioxide 10 L BUN 35 H Creatinine Glucose 300 H POC Glucose 238 H 223 H Hemoglobin A1c Lactic Acid Calcium 11.6 H Phosphorus Magnesium Alkaline Phosphatase C-Reactive Protein Albumin 04/24/21 04/24/21 04/24/21 00:10 00:56 01:58 Hgb Hct MCH Seg Neuts % (Manual) Lymphocytes % (Manual) Nucleated RBC % Lymphocytes # (Manual) ABG pO2 ABG HCO3 ABG Base Excess ABG Hemoglobin VBG pH Oxyhemoglobin Sodium Potassium 3.2 L Chloride Carbon Dioxide 13 L BUN 33 H Creatinine Glucose 267 H POC Glucose 254 H 264 H Hemoglobin A1c Lactic Acid Calcium 11.2 H Phosphorus 1.20 L Magnesium Alkaline Phosphatase C-Reactive Protein Albumin 04/24/21 04/24/21 04/24/21 02:58 03:57 04:16 Hgb Hct MCH Seg Neuts % (Manual) Lymphocytes % (Manual) Nucleated RBC % Lymphocytes # (Manual) ABG pO2 ABG HCO3 ABG Base Excess ABG Hemoglobin VBG pH Oxyhemoglobin Sodium Potassium Chloride 108.0 H Carbon Dioxide 13 L BUN 31 H Creatinine Glucose 243 H POC Glucose 251 H 200 H Hemoglobin A1c Lactic Acid Calcium 10.9 H Phosphorus 1.80 L D Magnesium Alkaline Phosphatase C-Reactive Protein Albumin 04/24/21 04/24/21 04/24/21 04:16 04:16 04:59 Hgb Hct MCH 26 L Seg Neuts % (Manual) Lymphocytes % (Manual) Nucleated RBC % Lymphocytes # (Manual) ABG pO2 ABG HCO3 ABG Base Excess ABG Hemoglobin VBG pH Oxyhemoglobin Sodium Potassium Chloride Carbon Dioxide BUN Creatinine Glucose POC Glucose 208 H Hemoglobin A1c 18.3 H Lactic Acid Calcium Phosphorus Magnesium Alkaline Phosphatase C-Reactive Protein Albumin 04/24/21 04/24/21 04/24/21 05:53 06:51 07:58 Hgb Hct MCH Seg Neuts % (Manual) Lymphocytes % (Manual) Nucleated RBC % Lymphocytes # (Manual) ABG pO2 ABG HCO3 ABG Base Excess ABG Hemoglobin VBG pH Oxyhemoglobin Sodium Potassium Chloride Carbon Dioxide BUN Creatinine Glucose POC Glucose 213 H 161 H 149 H Hemoglobin A1c Lactic Acid Calcium Phosphorus Magnesium Alkaline Phosphatase C-Reactive Protein Albumin 04/24/21 04/24/21 04/24/21 09:21 10:06 11:03 Hgb Hct MCH Seg Neuts % (Manual) Lymphocytes % (Manual) Nucleated RBC % Lymphocytes # (Manual) ABG pO2 ABG HCO3 ABG Base Excess ABG Hemoglobin VBG pH Oxyhemoglobin Sodium Potassium Chloride Carbon Dioxide BUN Creatinine Glucose POC Glucose 178 H 164 H 157 H Hemoglobin A1c Lactic Acid Calcium Phosphorus Magnesium Alkaline Phosphatase C-Reactive Protein Albumin 04/24/21 04/24/21 04/24/21 12:07 12:14 12:14 Hgb Hct MCH Seg Neuts % (Manual) Lymphocytes % (Manual) Nucleated RBC % Lymphocytes # (Manual) ABG pO2 ABG HCO3 ABG Base Excess ABG Hemoglobin VBG pH Oxyhemoglobin Sodium Potassium 3.2 L Chloride 108.7 H Carbon Dioxide 16 L BUN 24 H Creatinine Glucose 160 H POC Glucose 142 H Hemoglobin A1c Lactic Acid 2.50 H* Calcium 10.5 H Phosphorus 0.70 L* D Magnesium Alkaline Phosphatase C-Reactive Protein Albumin 04/24/21 04/24/21 04/24/21 13:02 14:00 15:14 Hgb Hct MCH Seg Neuts % (Manual) Lymphocytes % (Manual) Nucleated RBC % Lymphocytes # (Manual) ABG pO2 ABG HCO3 ABG Base Excess ABG Hemoglobin VBG pH Oxyhemoglobin Sodium Potassium Chloride Carbon Dioxide BUN Creatinine Glucose POC Glucose 138 H 150 H 145 H Hemoglobin A1c Lactic Acid Calcium Phosphorus Magnesium Alkaline Phosphatase C-Reactive Protein Albumin 04/24/21 04/24/21 04/24/21 16:07 17:11 18:12 Hgb Hct MCH Seg Neuts % (Manual) Lymphocytes % (Manual) Nucleated RBC % Lymphocytes # (Manual) ABG pO2 ABG HCO3 ABG Base Excess ABG Hemoglobin VBG pH Oxyhemoglobin Sodium Potassium Chloride Carbon Dioxide BUN Creatinine Glucose POC Glucose 148 H 156 H 153 H Hemoglobin A1c Lactic Acid Calcium Phosphorus Magnesium Alkaline Phosphatase C-Reactive Protein Albumin 04/24/21 04/24/21 04/24/21 18:24 19:55 20:55 Hgb Hct MCH Seg Neuts % (Manual) Lymphocytes % (Manual) Nucleated RBC % Lymphocytes # (Manual) ABG pO2 ABG HCO3 ABG Base Excess ABG Hemoglobin VBG pH Oxyhemoglobin Sodium Potassium Chloride 109.2 H Carbon Dioxide 15 L BUN 22 H Creatinine Glucose 159 H POC Glucose 176 H 146 H Hemoglobin A1c Lactic Acid Calcium Phosphorus 1.80 L D Magnesium Alkaline Phosphatase C-Reactive Protein 24.30 H Albumin 04/24/21 04/24/21 04/24/21 22:04 23:02 23:13 Hgb Hct MCH Seg Neuts % (Manual) Lymphocytes % (Manual) Nucleated RBC % Lymphocytes # (Manual) ABG pO2 ABG HCO3 ABG Base Excess ABG Hemoglobin VBG pH Oxyhemoglobin Sodium Potassium Chloride Carbon Dioxide BUN Creatinine Glucose POC Glucose 169 H 144 H Hemoglobin A1c Lactic Acid 3.10 H* Calcium Phosphorus Magnesium Alkaline Phosphatase C-Reactive Protein Albumin 04/25/21 04/25/21 04/25/21 00:05 01:28 02:03 Hgb Hct MCH Seg Neuts % (Manual) Lymphocytes % (Manual) Nucleated RBC % Lymphocytes # (Manual) ABG pO2 ABG HCO3 ABG Base Excess ABG Hemoglobin VBG pH Oxyhemoglobin Sodium Potassium Chloride Carbon Dioxide BUN Creatinine Glucose POC Glucose 150 H 142 H 148 H Hemoglobin A1c Lactic Acid Calcium Phosphorus Magnesium Alkaline Phosphatase C-Reactive Protein Albumin 04/25/21 04/25/21 04/25/21 03:07 04:17 05:48 Hgb Hct MCH Seg Neuts % (Manual) Lymphocytes % (Manual) Nucleated RBC % Lymphocytes # (Manual) ABG pO2 ABG HCO3 ABG Base Excess ABG Hemoglobin VBG pH Oxyhemoglobin Sodium Potassium Chloride Carbon Dioxide BUN Creatinine Glucose POC Glucose 161 H 158 H 136 H Hemoglobin A1c Lactic Acid Calcium Phosphorus Magnesium Alkaline Phosphatase C-Reactive Protein Albumin 04/25/21 04/25/21 04/25/21 06:52 07:58 08:10 Hgb 9.5 L Hct 28.8 L MCH 26 L Seg Neuts % (Manual) 33.0 L Lymphocytes % (Manual) Nucleated RBC % Lymphocytes # (Manual) 1.1 L ABG pO2 ABG HCO3 ABG Base Excess ABG Hemoglobin VBG pH Oxyhemoglobin Sodium Potassium Chloride Carbon Dioxide BUN Creatinine Glucose POC Glucose 137 H 143 H Hemoglobin A1c Lactic Acid Calcium Phosphorus Magnesium Alkaline Phosphatase C-Reactive Protein Albumin 04/25/21 04/25/21 04/25/21 08:10 08:10 08:53 Hgb Hct MCH Seg Neuts % (Manual) Lymphocytes % (Manual) Nucleated RBC % Lymphocytes # (Manual) ABG pO2 ABG HCO3 ABG Base Excess ABG Hemoglobin VBG pH Oxyhemoglobin Sodium Potassium 3.3 L Chloride 109.0 H Carbon Dioxide 16 L BUN 23 H Creatinine Glucose 151 H POC Glucose 132 H Hemoglobin A1c Lactic Acid 2.10 H* Calcium Phosphorus 2.20 L D Magnesium 1.60 L Alkaline Phosphatase C-Reactive Protein Albumin 04/25/21 04/25/21 04/25/21 09:59 11:20 11:20 Hgb Hct MCH Seg Neuts % (Manual) Lymphocytes % (Manual) Nucleated RBC % Lymphocytes # (Manual) ABG pO2 73.2 L ABG HCO3 16.2 L ABG Base Excess -7.1 L ABG Hemoglobin 8.7 L VBG pH Oxyhemoglobin 94.8 L Sodium Potassium Chloride Carbon Dioxide BUN Creatinine Glucose POC Glucose 141 H 141 H Hemoglobin A1c Lactic Acid Calcium Phosphorus Magnesium Alkaline Phosphatase C-Reactive Protein Albumin 04/25/21 04/25/21 04/25/21 12:04 12:26 13:04 Hgb Hct MCH Seg Neuts % (Manual) Lymphocytes % (Manual) Nucleated RBC % Lymphocytes # (Manual) ABG pO2 ABG HCO3 ABG Base Excess ABG Hemoglobin VBG pH Oxyhemoglobin Sodium Potassium 3.4 L Chloride 109.5 H Carbon Dioxide 14 L BUN 21 H Creatinine Glucose 155 H POC Glucose 129 H 135 H Hemoglobin A1c Lactic Acid Calcium Phosphorus 1.90 L Magnesium 1.60 L Alkaline Phosphatase C-Reactive Protein Albumin 04/25/21 13:58 Hgb Hct MCH Seg Neuts % (Manual) Lymphocytes % (Manual) Nucleated RBC % Lymphocytes # (Manual) ABG pO2 ABG HCO3 ABG Base Excess ABG Hemoglobin VBG pH Oxyhemoglobin Sodium Potassium Chloride Carbon Dioxide BUN Creatinine Glucose POC Glucose 140 H Hemoglobin A1c Lactic Acid Calcium Phosphorus Magnesium Alkaline Phosphatase C-Reactive Protein Albumin Chest x-ray: pending Allied health notes reviewed: nursing
[2021-04-25] MEDS: D5W/0.45% NACL/KCL 40 MEQ 40 MEQ/1,000 ML BAG IV SCH ×2 (14:56→22:13)
--- NOTE | 2021-04-25 16:19 | Consultation ---
History of Present Illness - HPI Consult date: 04/25/21 Consult reason: joint pain (51 yo F PMHx DM2, OA, obesit,y medication non- compliance presented to the hospital complaining of generalized unwellness. She complained of being too weak to walk with DKA symptoms. ) Past History Past Medical History: arthritis, diabetes Past Surgical History: , Other (Right knee surgery) Social history: single. denies: smoking, alcohol abuse, prescription drug abuse Family history: diabetes, hypertension Medications and Allergies Allergies Allergy/AdvReac Type Severity Reaction Status Date / Time No Known Allergies Allergy Verified 08/21/18 13:05 Home Medications Medication Instructions Recorded Confirmed Last Taken Type Insulin Regular, Human [Humulin R] See Protocol IJ ACHS 30 Days vial 08/30/18 03/12/20 03/11/20 Rx ALBUTEROL NEB's [Proventil 0.083% 2.5 mg IH Q4H PRN #1 nebu 01/04/20 03/12/20 Unknown Rx NEBS] Acetaminophen [Acetaminophen TAB] 650 mg PO Q4H PRN tablet 01/04/20 03/12/20 03/10/[address] [Voltaren Dr] 75 mg PO BID #30 tablet 01/04/20 03/12/20 Unknown Rx Insulin Lispro [Humalog] 0 unit SUB-Q Q6HR #1 vial 01/04/20 03/12/20 Unknown Rx Insulin NPH/Regular [NovoLIN 70/30] 30 unit SUB-Q BIDDIAB #1 units 01/04/20 03/12/20 Unknown Rx hydrALAZINE [Apresoline TAB] 10 mg PO Q8HR #90 tablet 01/04/20 03/12/20 Unknown Rx Sennosides Tab [Senokot] 8.6 mg PO Q12HR #60 tablet 03/16/20 Unknown Rx oxyCODONE /ACETAMINOPHEN [Percocet 2 tab PO Q6H PRN #20 tablet 03/16/20 Unknown Rx 5/325 mg] Apixaban [Eliquis] 5 mg PO QDAY #90 tablet 03/22/20 Unknown Rx Amlodipine Besylate [Norvasc] 5 mg PO DAILY #30 tablet 03/30/20 Unknown Rx Active Meds: Active Medications Acetaminophen (Acetaminophen 325 Mg Tab) 650 mg PO Q6H PRN PRN Reason: Pain MILD(1-3)/Fever >100.5/SMITH Dextrose (Dextrose 50% In Water (25gm) 50 Ml Syringe) 0 ml IV Q30MIN PRN; Protocol PRN Reason: Hypoglycemia Enoxaparin Sodium (Enoxaparin 40 Mg/0.4 Ml Inj) 40 mg SUB-Q BID [facility]; Protocol Last Admin: 04/25/21 09:26 Dose: 40 mg Documented by: Famotidine (Famotidine 20 Mg/2 Ml Inj) 20 mg IV QDAY [facility] Last Admin: 04/25/21 09:26 Dose: 20 mg Documented by: Hydromorphone HCl (Hydromorphone 1 Mg/1 Ml Inj) 0.5 mg IV Q23H PRN PRN Reason: Pain , Severe (7-10) Last Admin: 04/24/21 21:57 Dose: 0.5 mg Documented by: Insulin Human Regular 100 (units/ Sodium Chloride) 100 mls @ 1 mls/hr IV TITR [facility]; Protocol Last Titration: 04/25/21 16:06 Dose: 7.5 units/hr, 7.5 mls/hr Documented by: Vancomycin HCl 2,000 mg/ (Sodium Chloride) 540 mls @ 250 mls/hr IV Q12H [facility] Last Admin: 04/25/21 09:06 Dose: 250 mls/hr Documented by: Potassium Phosphate 30 mmol/ (Sodium Chloride) 510 mls @ 85 mls/hr IV ONCE@1230 AMIRA Stop: 04/25/21 18:30 Last Admin: 04/25/21 13:10 Dose: 85 mls/hr Documented by: Potassium Chloride/Dextrose/Sod Cl (D5w/0.45% Nacl/Kcl 40 Meq) 40 meq in 1,000 mls @ 125 mls/hr IV DIRECT [facility] Last Admin: 04/25/21 14:56 Dose: 125 mls/hr Documented by: Ceftriaxone Sodium (Rocephin/Ns 2 Gm/100 Ml) 2 gm in 100 mls @ 200 mls/hr IV Q24H [facility]; Protocol Oxycodone/Acetaminophen (Oxycodone /Acetaminophen 5-325mg Tab) 1 tab PO Q16H PRN PRN Reason: Pain, Moderate (4-6) Sodium Chloride (Sodium Chloride 0.9% 10 Ml Flush Syringe) 10 ml IV BID [facility] Last Admin: 12/09/21 09:28 Dose: 10 ml Documented by: Sodium Chloride (Sodium Chloride 0.9% 10 Ml Flush Syringe) 10 ml IV PRN PRN PRN Reason: LINE FLUSH Last Admin: 04/24/21 11:15 Dose: 10 ml Documented by: Physical Examination - Physical exam Narrative exam: Bilateral LE's - knees - moderate effusion bilateral, no increased warmth palpated, no redness/erythema noted, passive ROM OK Assessment and Plan asses- hx of morbid obesity, DM, & OA, afebrile with no increase in WBC's, doubt knee as source of sepsis plan- observation at this point, maybe PT once medical condition improves
[2021-04-25] MEDS: HYDROmorphone 1 MG/1 ML INJ IV PRN (19:19)
[2021-04-25 19:40] LABS: Blood Urea Nitrogen 23 mg/dL (7-17); Calcium 8.8 mg/dL (8.4-10.2); Hemolysis Index 11
[2021-04-25 19:41] LABS: BUN/Creatinine Ratio 33
[2021-04-26] MEDS: SENNOSIDES 8.6 MG TAB PO SCH ×2 (00:08→22:42)
[2021-04-26 01:16] LABS: Blood Urea Nitrogen 22 mg/dL (7-17); Calcium 8.9 mg/dL (8.4-10.2); Hemolysis Index 136
[2021-04-26 01:17] LABS: BUN/Creatinine Ratio 37
--- NOTE | 2021-04-26 05:29 | XRay Report ---
XR chest 1V ap INDICATION / CLINICAL INFORMATION: aspiration pneumonia. COMPARISON: 04/24/2021. FINDINGS: SUPPORT DEVICES: Enteric catheter tip and side port projects in the stomach. HEART /PULMONARY VASCULATURE: Unchanged. LUNGS / PLEURA: Low lung volumes remain. Bilateral pulmonary opacities are stable. No pneumothorax. IMPRESSION: 1. No significant interval change. Signer Name: Jonatan Julian MD Signed: 04/26/2021 5:25 AM Workstation Name: [id number]
[2021-04-26 05:42] LABS: Blood Urea Nitrogen 22 mg/dL (7-17); Calcium 8.8 mg/dL (8.4-10.2); Hemolysis Index 2
[2021-04-26 05:56] LABS: BUN/Creatinine Ratio 31
[2021-04-26 05:57] LABS: Hematocrit 26.9 % (30.3-42.9); Hemoglobin 8.9 gm/dl (10.1-14.3); Mean Corpuscular HGB Conc 33 % (30-34); Mean Corpuscular Volume 78 fl (79-97); Platelet Count 167 K/mm3 (140-440); Red Blood Count 3.44 M/mm3 (3.65-5.03); Red Cell Distribution Width 14.3 % (13.2-15.2)
[2021-04-26] MEDS: D5W/0.45% NACL/KCL 40 MEQ 40 MEQ/1,000 ML BAG IV SCH (06:17)
[2021-04-26] MEDS: cefTRIAXone/NS 2 GM/100 ML 2 GM/100 ML BAG IV SCH ×2 (08:04→14:16)
[2021-04-26] MEDS ORDERED: SIMPLE SYRUP 15 ML FEEDTUBE PRN ×4 (09:00→11:00)
[2021-04-26] MEDS ORDERED: LIPASE 10,500/PROTEASE 25,000/AMYLASE 43,750 (UNITS) DR CAP FEEDTUBE PRN ×2 (09:00→11:00)
[2021-04-26] MEDS ORDERED: SODIUM BICARBONATE 325 MG TAB FEEDTUBE PRN ×2 (09:00→11:00)
[2021-04-26] MEDS: FAMOTIDINE 20 MG/2 ML INJ IV SCH (09:36)
[2021-04-26] MEDS: VANCOMYCIN 2,000 MG in SODIUM CHLORIDE 0.9% 500 ML 500 ML IV SCH ×2 (09:36→22:42)
[2021-04-26] MEDS: ENOXAPARIN 40 MG/0.4 ML INJ SUB-Q SCH ×2 (09:36→22:42)
--- NOTE | 2021-04-26 11:47 | Progress Note ---
Assessment and Plan Assessment and plan: This is a 51-year-old female with past medical history of DM, noncomplaint with medications, obesity, arthritis, and Rt. Knee surgery admitted for DKA Hospital Course to Date: 04/24/21- Patient remains on DKA protocol. Still very lethargic this am, following simple commands. Rt. knee wound and swelling noted, and nursing staff also reported thick, white vaginal discharge. C/f sepsis, blood culture ordered, this am UA noted. Will start patient on PO difflucan for possible yeast infection, pending culture data. Anion GAP is still 18 this am, will continue DKA protocol for now. Continue to monitor electrolytes, serial BMP ordered. 04/25/21- Patient appears to be in distress this am, now on 3L NC. Lactic acidosis worsen overnight, X1L LR bolus adminstered. Ordered placed for stat ABGs. Blood culture growing GPC 3/4 bottles, patient remains afebrile with no leukocytosis. IV abx was escalated, ID consulted. Ortho consult is still pending, order placed for XR of the Rt. knee. Given patient worsen condition and high anio, gap, will continue insulin gtt for now. Low K and mg was repleted. Continue serial BMP,mg, and phosp 04/26/21- Patient appears more alert and awake this am, talkative, and following commands. Remains on DKA protocol, gap is closedX2, will transition patient to SSI and basal insulin and initiate enteral nutrition. Patient remains afebrile overnight, continue IV Abx per ID. Assessment and Plan #Acute Metabolic Encephalopathy - Probably related to metabolic acidosis - Mentation improved this am, AAO and talkative - Continue to reiorient patient as needed - Avoid benzodiazepine to reduce the possibility of delirium - PRN analgesia for CPOT greater than 3 - Maintenance of sleep-wake cycle #Tachycardia - ST on the monitor - Probably reactive to current condition - Hemodynamic stable - Maintain adequate perfusion - Continue rehydration with cont. IVF - Continue blood pressure monitor per protocol - Maintain MAP above 65 #GI: NPO - Keep patient NPO while on DKA protocol - GAP is closed X2, plan to transition to SSI - Will initiate enteral nutritiom - Nutrition consulted - Continue continuos IVF for now, D/C once TF start - PPI- Pepcid - Continue BR #Hypokalemia- improved #Hypophosphetemia-improved - Probably due to DKA - Continue IVF - Monitor and replace electrolytes as needed - Continue to trend BMP, mg, and phosp - Strict intake and output - Avoid nephrotoxic medications; Renally dose medications #Sepsis #Vaginal Yeast Infection #?? Right Septic Knee #Lactic Acidosis- improved - Thick, white vaginal discharge - Rt. Knee wound and swelling, H/o of Knee surgery - XR of Rt. Knee pending - Patient remains afebrile, wbcs wnl - UA no indication for infection - Blood Culture +GPC 3/4 bottles - Lactic as high as 3.10--> 1.70 - Procal 21.10 - ID on consult - Continue IV antibiotoc per ID - F/U on culture data - Daily CBC monitor #Diabetic Ketoacidosis (DKA) #Uncontrolled DM - Presented with elevated BG and acidosis - UA + glucose, protein, and ketones - A1c 18.3 - Continue DKA protocol until anion gap is closed - anion gap is closed X2 this am - Will transition to SSI Q6hrs - X1 dose of 20units Lantus given - Will probably switch to 70/30 BID in the am if hyperglycemic - Monitor and replace electrolytes as needed - Serial BMP ordered #DVT Prophylaxis - AC- Lovenox added - SCD to bilateral lower extremities while in bed The high probability of a clinically significant, sudden or life threatening deterioration of the [Neuro, ID, Endo] system(s) required my full and direct attention, intervention and personal management. The aggregate critical care time was [60] minutes. This time is in addition to time spent performing repor yariel procedures but includes the following: [x] Data Review and interpretation [x] Patient assessment and monitoring of vital signs [x] Documentation [x] Medication orders and management Disposition Plan: ICU Total Time Spent with Patient (Minutes): 60 History Interval history: Patient seen and examined at the bedside. More alert and talkative this am, following commands. Now on 50% Venti mask, SPO2 at 100%. Remains on DKA protocol. TASHA overnight. Hospitalist Physical - Constitutional Vitals: Temp Pulse Resp BP Pulse Ox 97.8 F 98 H 23 122/82 98 04/26/21 08:00 04/26/21 08:00 04/26/21 08:00 04/26/21 08:00 04/26/21 08:00 General appearance: Present: no acute distress, mild distress, obese, other (More awake but still disoriented) - EENT Eyes: Present: PERRL ENT: hearing intact, clear oral mucosa - Neck Neck: Present: normal ROM - Respiratory Respiratory effort: normal Respiratory: bilateral: rhonchi - Cardiovascular Rhythm: regular Heart Sounds: Present: S1 & S2 - Extremities Extremities: no ischemia, pulses intact, pulses symmetrical Extremity abnormal: edema - Peripheral Assessment Generalized Edema Type: Non-pitting Edema Degree: 1+ Capillary Refill: < 3 seconds Skin Temperature: Warm Peripheral Pulses: within normal limits - Abdominal General gastrointestinal: soft, non-tender, normal bowel sounds - Integumentary Integumentary: Present: warm, dry - Psychiatric Psychiatric: cooperative, other (More awake but still disoriented) - Neurologic Neurologic: moves all extremities, other (More awake but still disoriented) - Allied Health Allied health notes reviewed: nursing HEART Score - HEART Score Troponin: Troponin T < 0.010 ng/mL (0.00-0.029) 04/23/21 10:33 Results - Labs CBC & Chem 7: 04/26/21 05:02 04/26/21 15:20 Labs: Laboratory Last Values WBC 5.5 K/mm3 (4.5-11.0) 04/26/21 05:02 RBC 3.44 M/mm3 (3.65-5.03) L 04/26/21 05:02 Hgb 8.9 gm/dl (10.1-14.3) L 04/26/21 05:02 Hct 26.9 % (30.3-42.9) L 04/26/21 05:02 MCV 78 fl (79-97) L 04/26/21 05:02 MCH 26 pg (28-32) L 04/26/21 05:02 MCHC 33 % (30-34) 04/26/21 05:02 RDW 14.3 % (13.2-15.2) 04/26/21 05:02 Plt Count 167 K/mm3 (140-440) 04/26/21 05:02 Add Manual Diff Complete 04/25/21 08:10 Total Counted 100 04/25/21 08:10 Seg Neutrophils % Laboratory [place] 04/23/21 10:33 Seg Neuts % (Manual) 33.0 % (40.0-70.0) L 04/25/21 08:10 Band Neutrophils % 23.0 % 04/25/21 08:10 Lymphocytes % (Manual) 19.0 % (13.4-35.0) 04/25/21 08:10 Reactive Lymphs % (Man) 1.0 % 04/25/21 08:10 Monocytes % (Manual) 1.0 % (0.0-7.3) 04/25/21 08:10 Eosinophils % (Manual) 1.0 % (0.0-4.3) 04/25/21 08:10 Metamyelocytes % 3.0 % 04/23/21 10:33 Myelocytes % 22.0 % 04/25/21 08:10 Nucleated RBC % Not Reportable 04/25/21 08:10 Seg Neutrophils # Man 1.9 K/mm3 (1.8-7.7) 04/25/21 08:10 Band Neutrophils # 1.3 K/mm3 04/25/21 08:10 Lymphocytes # (Manual) 1.1 K/mm3 (1.2-5.4) L 04/25/21 08:10 Abs React Lymphs (Man) 0.1 K/mm3 04/25/21 08:10 Monocytes # (Manual) 0.1 K/mm3 (0.0-0.8) 04/25/21 08:10 Eosinophils # (Manual) 0.1 K/mm3 (0.0-0.4) 04/25/21 08:10 Basophils # (Manual) 0.0 K/mm3 (0.0-0.1) 04/25/21 08:10 Metamyelocytes # 0.0 K/mm3 04/25/21 08:10 Myelocytes # 1.3 K/mm3 04/25/21 08:10 Promyelocytes # 0.0 K/mm3 04/25/21 08:10 Blast Cells # 0.0 K/mm3 04/25/21 08:10 WBC Morphology Not Reportable 04/25/21 08:10 Hypersegmented Neuts Not Reportable 04/25/21 08:10 Hyposegmented Neuts Not Reportable 04/25/21 08:10 Hypogranular Neuts Not Reportable 04/25/21 08:10 Smudge Cells Not Reportable 04/25/21 08:10 Toxic Granulation Not Reportable 04/25/21 08:10 Toxic Vacuolation Not Reportable 04/25/21 08:10 Dohle Bodies Not Reportable 04/25/21 08:10 Pelger-Huet Anomaly Not Reportable 04/25/21 08:10 Thierry Rods Not Reportable 04/25/21 08:10 Platelet Estimate Consistent w auto 04/25/21 08:10 Clumped Platelets Not Reportable 04/25/21 08:10 Plt Clumps, EDTA Not Reportable 04/25/21 08:10 Large Platelets Not Reportable 04/25/21 08:10 Giant Platelets Not Reportable 04/25/21 08:10 Platelet Satelliting Not Reportable 04/25/21 08:10 Plt Morphology Comment Not Reportable 04/25/21 08:10 RBC Morphology Not Reportable 04/25/21 08:10 Dimorphic RBCs Not Reportable 04/25/21 08:10 Polychromasia Not Reportable 04/25/21 08:10 Hypochromasia 1+ 04/25/21 08:10 Poikilocytosis Not Reportable 04/25/21 08:10 Anisocytosis Not Reportable 04/25/21 08:10 Microcytosis Not Reportable 04/25/21 08:10 Macrocytosis Not Reportable 04/25/21 08:10 Spherocytes Not Reportable 04/25/21 08:10 Pappenheimer Bodies Not Reportable 04/25/21 08:10 Sickle Cells Not Reportable 04/25/21 08:10 Target Cells Not Reportable 04/25/21 08:10 Tear Drop Cells Not Reportable 04/25/21 08:10 Ovalocytes Not Reportable 04/25/21 08:10 Helmet Cells Not Reportable 04/25/21 08:10 [place] Bodies Not Reportable 04/25/21 08:10 [place] Rings Not Reportable 04/25/21 08:10 Kam[place] Cells Not Reportable 04/25/21 08:10 Bite Cells Not Reportable 04/25/21 08:10 Crenated Cell Not Reportable 04/25/21 08:10 Elliptocytes Not Reportable 04/25/21 08:10 Acanthocytes (Spur) Not Reportable 04/25/21 08:10 Rouleaux Not Reportable 04/25/21 08:10 Hemoglobin C Crystals Not Reportable 04/25/21 08:10 Schistocytes Not Reportable 04/25/21 08:10 Malaria parasites Not Reportable 04/25/21 08:10 Juan Bodies Not Reportable 04/25/21 08:10 Hem Pathologist Commnt No 04/25/21 08:10 ABG pH 7.426 pH Units (7.350-7.450) 04/25/21 11:20 ABG pCO2 25.3 mm Hg 04/25/21 11:20 ABG pO2 73.2 mm Hg (80.0-90.0) L 04/25/21 11:20 ABG HCO3 16.2 mmol/L (20.0-26.0) L 04/25/21 11:20 ABG O2 Saturation 96.9 % (95.0-99.0) 04/25/21 11:20 ABG O2 Content 11.6 (0.0-44) 04/25/21 11:20 ABG Base Excess -7.1 mmol/L (-2.0-3.0) L 04/25/21 11:20 ABG Hemoglobin 8.7 gm/dl (12.0-16.0) L 04/25/21 11:20 ABG Carboxyhemoglobin 1.6 % (0.0-5.0) 04/25/21 11:20 ABG Methemoglobin 0.6 % (0.0-1.5) 04/25/21 11:20 VBG pH 7.180 (7.320-7.420) L* 04/23/21 10:33 Oxyhemoglobin 94.8 % (95.0-99.0) L 04/25/21 11:20 FiO2 28 % 04/25/21 11:20 Sodium 141 mmol/L (137-145) 04/26/21 05:02 Potassium 4.0 mmol/L (3.6-5.0) 04/26/21 05:02 Chloride 114.8 mmol/L (98-107) H 04/26/21 05:02 Carbon Dioxide 14 mmol/L (22-30) L 04/26/21 05:02 Anion Gap 16 mmol/L 04/26/21 05:02 BUN 22 mg/dL (7-17) H 04/26/21 05:02 Creatinine 0.7 mg/dL (0.6-1.2) 04/26/21 05:02 Estimated GFR > 60 ml/min 04/26/21 05:02 BUN/Creatinine Ratio 31 % 04/26/21 05:02 Glucose 129 mg/dL (65-100) H 04/26/21 05:02 POC Glucose 129 mg/dL (70-105) H 04/26/21 10:52 Hemoglobin A1c 18.3 % (4-6) H 04/24/21 04:16 Lactic Acid 1.70 mmol/L (0.7-2.0) 04/26/21 05:02 Uric Acid 7.5 mg/dL (3.5-7.6) 04/24/21 12:14 Calcium 8.8 mg/dL (8.4-10.2) 04/26/21 05:02 Phosphorus 2.80 mg/dL (2.5-4.5) 04/26/21 05:02 Magnesium 2.20 mg/dL (1.7-2.3) 04/26/21 05:02 Total Bilirubin 0.60 mg/dL (0.1-1.2) 04/23/21 10:33 AST 10 units/L (5-40) 04/23/21 10:33 ALT 9 units/L (7-56) 04/23/21 10:33 Alkaline Phosphatase 130 units/L (35-129) H 04/23/21 10:33 Ammonia 37.0 umol/L (25-60) 04/23/21 10:33 Total Creatine Kinase 83 units/L (30-135) 04/23/21 10:33 Troponin T < 0.010 ng/mL (0.00-0.029) 04/23/21 10:33 C-Reactive Protein 24.30 mg/dL (0.00-1.30) H 04/24/21 18:24 Total Protein 8.2 g/dL (6.3-8.2) 04/23/21 10:33 Albumin 2.9 g/dL (3.9-5) L 04/23/21 10:33 Albumin/Globulin Ratio 0.5 % 04/23/21 10:33 Procalcitonin 21.10 ng/mL (<0.15) 04/24/21 12:14 TSH 1.400 mlU/mL (0.270-4.200) 04/23/21 10:33 Urine Color Yellow (Yellow) 04/24/21 08:40 Urine Turbidity Clear (Clear) 04/24/21 08:40 Urine pH 6.0 (5.0-7.0) 04/24/21 08:40 Ur Specific [place] 1.022 (1.003-1.030) 04/24/21 08:40 Urine Protein 100 mg/dl mg/dL (Negative) 04/24/21 08:40 Urine Glucose (UA) >=500 mg/dL (Negative) 04/24/21 08:40 Urine Ketones 20 mg/dL (Negative) 04/24/21 08:40 Urine Blood Sm (Negative) 04/24/21 08:40 Urine Nitrite Neg (Negative) 04/24/21 08:40 Urine Bilirubin Neg (Negative) 04/24/21 08:40 Urine Urobilinogen 2.0 mg/dL (<2.0) 04/24/21 08:40 Ur Leukocyte Esterase Neg (Negative) 04/24/21 08:40 Urine WBC (Auto) < 1.0 /HPF (0.0-6.0) 04/24/21 08:40 Urine RBC (Auto) 1.0 /HPF (0.0-6.0) 04/24/21 08:40 U Epithel Cells (Auto) < 1.0 /HPF (0-13.0) 04/24/21 08:40 Coronavirus (PCR) Negative (Negative) 04/25/21 Unknown Microbiology: Microbiology 04/26/21 09:04 Peripheral/Venous Blood Culture - Preliminary Culture in Progress 04/26/21 05:02 Peripheral/Venous Blood Culture - Preliminary Culture in Progress 04/24/21 12:14 Peripheral/Venous Blood Culture - Preliminary Beta Hemolytic Strep Group B Sanchez/IV: Voiding Method External Female Catheter Active Medications - Current Medications Current Medications: Generic Name Dose Route Start Last Admin Trade Name Freq PRN Reason Stop Dose Admin Acetaminophen 650 mg 04/23/21 11:54 Acetaminophen 325 Mg Tab PO Q6H PRN Pain MILD(1-3)/Fever >100.5/SMITH Lipase/Protease/Amylase 1 each 04/26/21 11:00 Lipase 10,500/Protease 25,000/Amylase 43,750 (Units) Dr Cap FEEDTUBE PRN PRN For Clogged Feeding Tube Dextrose 0 ml 04/23/21 17:08 Dextrose 50% In Water (25gm) 50 Ml Syringe IV Q30MIN PRN Hypoglycemia Protocol Enoxaparin Sodium 40 mg 04/24/21 22:00 04/26/21 09:36 Enoxaparin 40 Mg/0.4 Ml Inj SUB-Q 40 mg BID AMIRA Administration Protocol Famotidine 20 mg 04/25/21 10:00 04/26/21 09:36 Famotidine 20 Mg/2 Ml Inj IV 20 mg QDAY AMIRA Administration Hydromorphone HCl 0.5 mg 04/23/21 11:54 04/25/21 19:19 Hydromorphone 1 Mg/1 Ml Inj IV 0.5 mg Q23H PRN Administration Pain , Severe (7-10) Insulin Human Regular 100 100 mls @ 1 mls/hr 04/23/21 12:00 04/26/21 10:55 units/ Sodium Chloride IV 5 units/hr TITR AMIRA 5 mls/hr Titration Protocol 1 UNITS/HR Vancomycin HCl 2,000 mg/ 540 mls @ 250 mls/hr 04/25/21 09:00 04/26/21 09:36 Sodium Chloride IV 250 mls/hr Q12H AMIRA Administration Potassium Chloride/Dextrose/Sod Cl 40 meq in 1,000 mls @ 125 mls/hr 04/25/21 13:00 04/26/21 06:17 D5w/0.45% Nacl/Kcl 40 Meq IV 125 mls/hr DIRECT AMIRA Administration Ceftriaxone Sodium 2 gm in 100 mls @ 200 mls/hr 04/25/21 14:00 04/26/21 08:04 Rocephin/Ns 2 Gm/100 Ml IV Not Given Q24H AMIRA Protocol Oxycodone/Acetaminophen 1 tab 04/23/21 11:54 Oxycodone /Acetaminophen 5-325mg Tab PO Q16H PRN Pain, Moderate (4-6) Senna 17.2 mg 04/25/21 22:00 04/26/21 00:08 Sennosides 8.6 Mg Tab PO 17.2 mg QHS AMIRA Administration Simple Syrup 15 ml 04/26/21 11:00 Simple Syrup 15 Ml FEEDTUBE PRN PRN Hypoglycemia Simple Syrup 30 ml 04/26/21 11:00 Simple Syrup 15 Ml FEEDTUBE PRN PRN Hypoglycemia Sodium Bicarbonate 325 mg 04/26/21 09:00 Sodium Bicarbonate 325 Mg Tab FEEDTUBE PRN PRN For Clogged Feeding Tube Sodium Bicarbonate 325 mg 04/26/21 11:00 Sodium Bicarbonate 325 Mg Tab FEEDTUBE PRN PRN For Clogged Feeding Tube Sodium Chloride 10 ml 04/23/21 22:00 04/26/21 09:37 Sodium Chloride 0.9% 10 Ml Flush Syringe IV 10 ml BID AMIRA Administration Sodium Chloride 10 ml 04/23/21 11:54 04/24/21 11:15 Sodium Chloride 0.9% 10 Ml Flush Syringe IV 10 ml PRN PRN Administration LINE FLUSH Nutrition/Malnutrition Assess - Dietary Evaluation Nutrition/Malnutrition Findings: Nutrition Notes Start: 04/26/21 09:53 Freq: Status: Active Protocol: Document 04/26/21 09:53 JAIMIE (Rec: 04/26/21 10:41 JAIMIE [id number]) Nutrition Notes Need for Assessment generated from: MD Order Initial or Follow up Assessment Current Diagnosis Decubitus(Pressure Ulcer), Diabetes Other Pertinent Diagnosis DKA, Met acidosis, Met Encephalopathy, Osteoarthritis . Current Diet NPO (since 04/24 08:01), TF- Glucerna 1,2 Daniel (since L ). Labs/Tests 04/26: Cl 114.8, CO2 14, BUN 22, Glu 129. Pertinent Medications 04/26: Insulin, D5w/0.45% NaCl /KCl 40 mEq 1000ml @ 125 ml/Hr , others nutritionally unremarkable. Height 5 ft 8 in Weight 158.6 kg [place] Body Weight (kg) 63.63 BMI 53.1 Weight Status Morbidly Obese Subjective/Other Information RD consult for write/manage TF . Pt extremely fatigued due to DKA. Pt has missing and broken teeth, chewing difficulty. Nasogastric tube placed and secure. Percent of energy/protein needs met: Prescribed TF-Glucerna 1.2 Daniel Diet provides for energy/ protein needs (2,379 Kcal/119 g) during LOS 100% Kcal, 100% AA. Burn Absent Trauma Absent GI Symptoms None Difficulty In Chewing Food Allergy No Skin Integrity/Comment Pressure ulcers in both legs. Current % PO Other Minimum of two criteria No #1 Nutrition Diagnosis Inadequate oral intake Etiology Pt extremely fatigued due to DKA, Pt has chewing difficulty . As Evidenced by Signs and Symptoms MD request for write/manage TF , NG tube placed and secured. Is patient on ventilator? No Is Patient Ambulatory and/or Out of Bed No REE-([facility]-confined to bed) 2708.292 Kcal/Kg value to use for calculation 15 Approximate Energy Requirements Using 2379 kcal/Kg Calculation Used for Recommendations Kcal/kg Additional Notes Protein: 1.5-2 g/Kg; 96-128 g/ day (from IBW + critical care + wound healing). Fluids: 1 ml/Kcal, or as per MD. Nutrition Intervention Change Diet Order: Continue NPO as per MD. Nutrition Support: Start Glucerna 1.2 Daniel @ 83 ml /hr. Flush: 131 ml water Q 4 hr. Kcal 2,379 Protein (gm) 119 Carbohydrates (gm) 227 Fat (gm) 119 Fluid (mL) 1,596 Fiber (gm) 32 % RDI: 100% Kcal, 100% AA. Goal #1 Maintain body weight within +/ -3% of admission BWt during LOS. Goal #2 Reach and maintain acceptable chemistry lab values during LOS. Goal #3 Increased protein given to promote wound healing during LOS. Additional Comments Continue monitoring TF tolerance, Hydration, and BM.
--- NOTE | 2021-04-26 12:19 | Progress Note ---
Assessment and Plan Acute metabolic acidosis Diabetic ketoacidosis Acute toxic metabolic encephalopathy Obesity Osteoarthritis Hypercalcemia - will schedule qhs BIPAP - lactate now WNL - transition off IV insulin - continue care as below otherwise; - prn NT suction at this point - continue aspiration precautions (HOB > 40 degrees) - continue accuchecks with glycemic control per SSI (While critically ill target blood glucose of 140-180 mg/dL; avoid hypoglycemia) - antiinfective's per ID team recommendations (Beta Hemolytic streptococcal bacteremia) - continue volume resuscitation - wean supplemental oxygen for target O2 sat's > 90% acutely - prn bronchodilators with pulmonary hygiene per RT - avoid nephrotoxins, renally dose all medications - avoid benzodiazepine's, reduce the possibility of delirium - prn analgesia per pain score - Maintenance of sleep-wake cycle, avoid delirium - G.I. & VTE prophylaxis - PT/OT/ROM exercises - continue mobility protocols for pressure ulcer prophylaxis - Monitor hemodynamics closely - continue other care per attending / other consultants - discharge planning ongoing concurrentl .... Re-evaluate in am & prn CONDITION: CRITICAL PROGNOSIS: GUARDED CODE STATUS: FULL CODE The high probability of a clinically significant, sudden or life-threatening deterioration of the [immunologic, endocrinologic & neurologic] system(s) required my full and direct attention, intervention and personal management. The aggregate critical care time was [32] minutes without overlap. Time includes spent on; [x] Data Review and interpretation [x] Patient assessment and monitoring of vital signs [x] Documentation [x] Medication orders and management Subjective Date of service: 04/26/21 Principal diagnosis: HAGMA; DKA; AMS; Obesity; Osteoarthritis; Hypercalcemia Interval history: Patient is seen today for: Acute metabolic acidosis; Diabetic ketoacidosis; Acute toxic metabolic encephalopathy; Obesity; Osteoarthritis; Hypercalcemia Seen and examined at bedside; 24hour events reviewed; nursing and respiratory ca re staff consulted; no adverse overnight events reported to me; resting peacefully in bed; more alert overall and follows prompts appropriately; remains on IV insulin and supplemental oxygen; denies N/V/F/C Objective Vital Signs - 12hr 04/26/21 04/26/21 04/26/21 00:30 01:00 01:30 Temperature Pulse Rate 102 H 103 H 100 H Respiratory 19 21 25 H Rate Blood Pressure 108/73 138/103 154/85 O2 Sat by Pulse 97 98 100 Oximetry 04/26/21 04/26/21 04/26/21 02:00 02:30 03:00 Temperature Pulse Rate 101 H 99 H 99 H Respiratory 29 H 28 H 27 H Rate Blood Pressure 154/85 142/76 96/70 O2 Sat by Pulse 99 99 Oximetry 04/26/21 04/26/21 04/26/21 03:30 04:00 04:30 Temperature 97.4 F L Pulse Rate 105 H 103 H 100 H Respiratory 21 32 H 19 Rate Blood Pressure 116/74 124/70 128/77 O2 Sat by Pulse 100 95 98 Oximetry 04/26/21 04/26/21 04/26/21 05:00 05:30 06:00 Temperature Pulse Rate 103 H 99 H 100 H Respiratory 18 16 20 Rate Blood Pressure 123/81 116/70 115/72 O2 Sat by Pulse 95 97 97 Oximetry 04/26/21 04/26/21 04/26/21 06:30 07:00 07:30 Temperature Pulse Rate 102 H 102 H 100 H Respiratory 15 15 20 Rate Blood Pressure 123/77 121/74 116/75 O2 Sat by Pulse 98 98 Oximetry 04/26/21 04/26/21 07:38 08:00 Temperature 97.8 F Pulse Rate 98 H Respiratory 23 Rate Blood Pressure 122/82 O2 Sat by Pulse 98 98 Oximetry Constitutional: appears uncomfortable (less so today), other (middle aged obese female with mildly increased work of breathing at rest) Eyes: non-icteric ENT: oropharynx dry Neck: supple, no lymphadenopathy, no JVD Effort: mildly labored Ascultation: Bilateral: diminished breath sounds, rhonchi (and referred upper airway sounds) Percussion: Bilateral: not dull Cardiovascular: regular rate and rhythm Gastrointestinal: hypoactive bowel sounds, soft, non-tender, non-distended Integumentary: rash (perineal) Extremities: no cyanosis, no edema, pulses normal, no ischemia or petechiae Neurologic: non-focal exam (grossly), pupils equal and round, motor strength normal and, other (somnolent) Psychiatric: mood appropriate, affect normal CBC and BMP: 04/26/21 05:02 04/26/21 14:06 ABG, PT/INR, D-dimer: ABG ABG pH 7.426 pH Units (7.350-7.450) 04/25/21 11:20 ABG pCO2 25.3 mm Hg 04/25/21 11:20 ABG pO2 73.2 mm Hg (80.0-90.0) L 04/25/21 11:20 ABG O2 Saturation 96.9 % (95.0-99.0) 04/25/21 11:20 Abnormal lab findings: Abnormal Labs 04/23/21 04/23/21 04/23/21 10:33 10:33 10:33 RBC Hgb Hct MCV MCH 26 L Seg Neuts % (Manual) Lymphocytes % (Manual) 7.0 L Nucleated RBC % 2.0 H Lymphocytes # (Manual) 0.5 L ABG pO2 ABG HCO3 ABG Base Excess ABG Hemoglobin VBG pH 7.180 L* Oxyhemoglobin Sodium 122 L Potassium 3.0 L Chloride 84.8 L Carbon Dioxide 6 L* BUN 49 H Creatinine 1.4 H Glucose 775 H* POC Glucose Hemoglobin A1c Lactic Acid Calcium 12.2 H* Phosphorus Magnesium Alkaline Phosphatase 130 H C-Reactive Protein Albumin 2.9 L 04/23/21 04/23/21 04/23/21 10:40 12:44 14:01 RBC Hgb Hct MCV MCH Seg Neuts % (Manual) Lymphocytes % (Manual) Nucleated RBC % Lymphocytes # (Manual) ABG pO2 ABG HCO3 ABG Base Excess ABG Hemoglobin VBG pH Oxyhemoglobin Sodium Potassium Chloride Carbon Dioxide BUN Creatinine Glucose POC Glucose > 600 H 550 H Hemoglobin A1c Lactic Acid Calcium Phosphorus 1.50 L Magnesium Alkaline Phosphatase C-Reactive Protein Albumin 04/23/21 04/23/21 04/23/21 14:01 14:56 15:43 RBC Hgb Hct MCV MCH Seg Neuts % (Manual) Lymphocytes % (Manual) Nucleated RBC % Lymphocytes # (Manual) ABG pO2 ABG HCO3 ABG Base Excess ABG Hemoglobin VBG pH Oxyhemoglobin Sodium 125 L 131 L Potassium 3.0 L 2.9 L* Chloride 89.2 L Carbon Dioxide 6 L* 8 L* BUN 45 H 39 H Creatinine 1.3 H Glucose 594 H* 434 H POC Glucose 425 H Hemoglobin A1c Lactic Acid Calcium 10.9 H 10.3 H Phosphorus Magnesium Alkaline Phosphatase C-Reactive Protein Albumin 04/23/21 04/23/21 04/23/21 15:48 17:21 18:07 RBC Hgb Hct MCV MCH Seg Neuts % (Manual) Lymphocytes % (Manual) Nucleated RBC % Lymphocytes # (Manual) ABG pO2 ABG HCO3 ABG Base Excess ABG Hemoglobin VBG pH Oxyhemoglobin Sodium Potassium Chloride Carbon Dioxide BUN Creatinine Glucose POC Glucose 410 H 407 H 428 H Hemoglobin A1c Lactic Acid Calcium Phosphorus Magnesium Alkaline Phosphatase C-Reactive Protein Albumin 04/23/21 04/23/21 04/23/21 19:13 19:54 19:54 RBC Hgb Hct MCV MCH Seg Neuts % (Manual) Lymphocytes % (Manual) Nucleated RBC % Lymphocytes # (Manual) ABG pO2 ABG HCO3 ABG Base Excess ABG Hemoglobin VBG pH Oxyhemoglobin Sodium 131 L Potassium 3.1 L Chloride 95.9 L Carbon Dioxide 7 L* BUN 39 H Creatinine Glucose 391 H POC Glucose 350 H Hemoglobin A1c Lactic Acid Calcium 11.2 H Phosphorus 1.10 L D Magnesium Alkaline Phosphatase C-Reactive Protein Albumin 04/23/21 04/23/21 04/23/21 20:12 20:59 22:05 RBC Hgb Hct MCV MCH Seg Neuts % (Manual) Lymphocytes % (Manual) Nucleated RBC % Lymphocytes # (Manual) ABG pO2 ABG HCO3 ABG Base Excess ABG Hemoglobin VBG pH Oxyhemoglobin Sodium Potassium Chloride Carbon Dioxide BUN Creatinine Glucose POC Glucose 365 H 286 H 257 H Hemoglobin A1c Lactic Acid Calcium Phosphorus Magnesium Alkaline Phosphatase C-Reactive Protein Albumin 04/23/21 04/23/21 04/23/21 22:23 22:59 23:57 RBC Hgb Hct MCV MCH Seg Neuts % (Manual) Lymphocytes % (Manual) Nucleated RBC % Lymphocytes # (Manual) ABG pO2 ABG HCO3 ABG Base Excess ABG Hemoglobin VBG pH Oxyhemoglobin Sodium 135 L Potassium 3.2 L Chloride Carbon Dioxide 10 L BUN 35 H Creatinine Glucose 300 H POC Glucose 238 H 223 H Hemoglobin A1c Lactic Acid Calcium 11.6 H Phosphorus Magnesium Alkaline Phosphatase C-Reactive Protein Albumin 04/24/21 04/24/21 04/24/21 00:10 00:56 01:58 RBC Hgb Hct MCV MCH Seg Neuts % (Manual) Lymphocytes % (Manual) Nucleated RBC % Lymphocytes # (Manual) ABG pO2 ABG HCO3 ABG Base Excess ABG Hemoglobin VBG pH Oxyhemoglobin Sodium Potassium 3.2 L Chloride Carbon Dioxide 13 L BUN 33 H Creatinine Glucose 267 H POC Glucose 254 H 264 H Hemoglobin A1c Lactic Acid Calcium 11.2 H Phosphorus 1.20 L Magnesium Alkaline Phosphatase C-Reactive Protein Albumin 04/24/21 04/24/21 04/24/21 02:58 03:57 04:16 RBC Hgb Hct MCV MCH Seg Neuts % (Manual) Lymphocytes % (Manual) Nucleated RBC % Lymphocytes # (Manual) ABG pO2 ABG HCO3 ABG Base Excess ABG Hemoglobin VBG pH Oxyhemoglobin Sodium Potassium Chloride 108.0 H Carbon Dioxide 13 L BUN 31 H Creatinine Glucose 243 H POC Glucose 251 H 200 H Hemoglobin A1c Lactic Acid Calcium 10.9 H Phosphorus 1.80 L D Magnesium Alkaline Phosphatase C-Reactive Protein Albumin 04/24/21 04/24/21 04/24/21 04:16 04:16 04:59 RBC Hgb Hct MCV MCH 26 L Seg Neuts % (Manual) Lymphocytes % (Manual) Nucleated RBC % Lymphocytes # (Manual) ABG pO2 ABG HCO3 ABG Base Excess ABG Hemoglobin VBG pH Oxyhemoglobin Sodium Potassium Chloride Carbon Dioxide BUN Creatinine Glucose POC Glucose 208 H Hemoglobin A1c 18.3 H Lactic Acid Calcium Phosphorus Magnesium Alkaline Phosphatase C-Reactive Protein Albumin 04/24/21 04/24/21 04/24/21 05:53 06:51 07:58 RBC Hgb Hct MCV MCH Seg Neuts % (Manual) Lymphocytes % (Manual) Nucleated RBC % Lymphocytes # (Manual) ABG pO2 ABG HCO3 ABG Base Excess ABG Hemoglobin VBG pH Oxyhemoglobin Sodium Potassium Chloride Carbon Dioxide BUN Creatinine Glucose POC Glucose 213 H 161 H 149 H Hemoglobin A1c Lactic Acid Calcium Phosphorus Magnesium Alkaline Phosphatase C-Reactive Protein Albumin 04/24/21 04/24/21 04/24/21 09:21 10:06 11:03 RBC Hgb Hct MCV MCH Seg Neuts % (Manual) Lymphocytes % (Manual) Nucleated RBC % Lymphocytes # (Manual) ABG pO2 ABG HCO3 ABG Base Excess ABG Hemoglobin VBG pH Oxyhemoglobin Sodium Potassium Chloride Carbon Dioxide BUN Creatinine Glucose POC Glucose 178 H 164 H 157 H Hemoglobin A1c Lactic Acid Calcium Phosphorus Magnesium Alkaline Phosphatase C-Reactive Protein Albumin 04/24/21 04/24/21 04/24/21 12:07 12:14 12:14 RBC Hgb Hct MCV MCH Seg Neuts % (Manual) Lymphocytes % (Manual) Nucleated RBC % Lymphocytes # (Manual) ABG pO2 ABG HCO3 ABG Base Excess ABG Hemoglobin VBG pH Oxyhemoglobin Sodium Potassium 3.2 L Chloride 108.7 H Carbon Dioxide 16 L BUN 24 H Creatinine Glucose 160 H POC Glucose 142 H Hemoglobin A1c Lactic Acid 2.50 H* Calcium 10.5 H Phosphorus 0.70 L* D Magnesium Alkaline Phosphatase C-Reactive Protein Albumin 04/24/21 04/24/21 04/24/21 13:02 14:00 15:14 RBC Hgb Hct MCV MCH Seg Neuts % (Manual) Lymphocytes % (Manual) Nucleated RBC % Lymphocytes # (Manual) ABG pO2 ABG HCO3 ABG Base Excess ABG Hemoglobin VBG pH Oxyhemoglobin Sodium Potassium Chloride Carbon Dioxide BUN Creatinine Glucose POC Glucose 138 H 150 H 145 H Hemoglobin A1c Lactic Acid Calcium Phosphorus Magnesium Alkaline Phosphatase C-Reactive Protein Albumin 04/24/21 04/24/21 04/24/21 16:07 17:11 18:12 RBC Hgb Hct MCV MCH Seg Neuts % (Manual) Lymphocytes % (Manual) Nucleated RBC % Lymphocytes # (Manual) ABG pO2 ABG HCO3 ABG Base Excess ABG Hemoglobin VBG pH Oxyhemoglobin Sodium Potassium Chloride Carbon Dioxide BUN Creatinine Glucose POC Glucose 148 H 156 H 153 H Hemoglobin A1c Lactic Acid Calcium Phosphorus Magnesium Alkaline Phosphatase C-Reactive Protein Albumin 04/24/21 04/24/21 04/24/21 18:24 19:55 20:55 RBC Hgb Hct MCV MCH Seg Neuts % (Manual) Lymphocytes % (Manual) Nucleated RBC % Lymphocytes # (Manual) ABG pO2 ABG HCO3 ABG Base Excess ABG Hemoglobin VBG pH Oxyhemoglobin Sodium Potassium Chloride 109.2 H Carbon Dioxide 15 L BUN 22 H Creatinine Glucose 159 H POC Glucose 176 H 146 H Hemoglobin A1c Lactic Acid Calcium Phosphorus 1.80 L D Magnesium Alkaline Phosphatase C-Reactive Protein 24.30 H Albumin 04/24/21 04/24/21 04/24/21 22:04 23:02 23:13 RBC Hgb Hct MCV MCH Seg Neuts % (Manual) Lymphocytes % (Manual) Nucleated RBC % Lymphocytes # (Manual) ABG pO2 ABG HCO3 ABG Base Excess ABG Hemoglobin VBG pH Oxyhemoglobin Sodium Potassium Chloride Carbon Dioxide BUN Creatinine Glucose POC Glucose 169 H 144 H Hemoglobin A1c Lactic Acid 3.10 H* Calcium Phosphorus Magnesium Alkaline Phosphatase C-Reactive Protein Albumin 04/25/21 04/25/21 04/25/21 00:05 01:28 02:03 RBC Hgb Hct MCV MCH Seg Neuts % (Manual) Lymphocytes % (Manual) Nucleated RBC % Lymphocytes # (Manual) ABG pO2 ABG HCO3 ABG Base Excess ABG Hemoglobin VBG pH Oxyhemoglobin Sodium Potassium Chloride Carbon Dioxide BUN Creatinine Glucose POC Glucose 150 H 142 H 148 H Hemoglobin A1c Lactic Acid Calcium Phosphorus Magnesium Alkaline Phosphatase C-Reactive Protein Albumin 04/25/21 04/25/21 04/25/21 03:07 04:17 05:48 RBC Hgb Hct MCV MCH Seg Neuts % (Manual) Lymphocytes % (Manual) Nucleated RBC % Lymphocytes # (Manual) ABG pO2 ABG HCO3 ABG Base Excess ABG Hemoglobin VBG pH Oxyhemoglobin Sodium Potassium Chloride Carbon Dioxide BUN Creatinine Glucose POC Glucose 161 H 158 H 136 H Hemoglobin A1c Lactic Acid Calcium Phosphorus Magnesium Alkaline Phosphatase C-Reactive Protein Albumin 04/25/21 04/25/21 04/25/21 06:52 07:58 08:10 RBC Hgb 9.5 L Hct 28.8 L MCV MCH 26 L Seg Neuts % (Manual) 33.0 L Lymphocytes % (Manual) Nucleated RBC % Lymphocytes # (Manual) 1.1 L ABG pO2 ABG HCO3 ABG Base Excess ABG Hemoglobin VBG pH Oxyhemoglobin Sodium Potassium Chloride Carbon Dioxide BUN Creatinine Glucose POC Glucose 137 H 143 H Hemoglobin A1c Lactic Acid Calcium Phosphorus Magnesium Alkaline Phosphatase C-Reactive Protein Albumin 04/25/21 04/25/21 04/25/21 08:10 08:10 08:53 RBC Hgb Hct MCV MCH Seg Neuts % (Manual) Lymphocytes % (Manual) Nucleated RBC % Lymphocytes # (Manual) ABG pO2 ABG HCO3 ABG Base Excess ABG Hemoglobin VBG pH Oxyhemoglobin Sodium Potassium 3.3 L Chloride 109.0 H Carbon Dioxide 16 L BUN 23 H Creatinine Glucose 151 H POC Glucose 132 H Hemoglobin A1c Lactic Acid 2.10 H* Calcium Phosphorus 2.20 L D Magnesium 1.60 L Alkaline Phosphatase C-Reactive Protein Albumin 04/25/21 04/25/21 04/25/21 09:59 11:20 11:20 RBC Hgb Hct MCV MCH Seg Neuts % (Manual) Lymphocytes % (Manual) Nucleated RBC % Lymphocytes # (Manual) ABG pO2 73.2 L ABG HCO3 16.2 L ABG Base Excess -7.1 L ABG Hemoglobin 8.7 L VBG pH Oxyhemoglobin 94.8 L Sodium Potassium Chloride Carbon Dioxide BUN Creatinine Glucose POC Glucose 141 H 141 H Hemoglobin A1c Lactic Acid Calcium Phosphorus Magnesium Alkaline Phosphatase C-Reactive Protein Albumin 04/25/21 04/25/21 04/25/21 12:04 12:26 13:04 RBC Hgb Hct MCV MCH Seg Neuts % (Manual) Lymphocytes % (Manual) Nucleated RBC % Lymphocytes # (Manual) ABG pO2 ABG HCO3 ABG Base Excess ABG Hemoglobin VBG pH Oxyhemoglobin Sodium Potassium 3.4 L Chloride 109.5 H Carbon Dioxide 14 L BUN 21 H Creatinine Glucose 155 H POC Glucose 129 H 135 H Hemoglobin A1c Lactic Acid Calcium Phosphorus 1.90 L Magnesium 1.60 L Alkaline Phosphatase C-Reactive Protein Albumin 04/25/21 04/25/21 04/25/21 13:58 15:09 16:00 RBC Hgb Hct MCV MCH Seg Neuts % (Manual) Lymphocytes % (Manual) Nucleated RBC % Lymphocytes # (Manual) ABG pO2 ABG HCO3 ABG Base Excess ABG Hemoglobin VBG pH Oxyhemoglobin Sodium Potassium Chloride Carbon Dioxide BUN Creatinine Glucose POC Glucose 140 H 134 H 135 H Hemoglobin A1c Lactic Acid Calcium Phosphorus Magnesium Alkaline Phosphatase C-Reactive Protein Albumin 04/25/21 04/25/21 04/25/21 18:56 18:58 18:58 RBC Hgb Hct MCV MCH Seg Neuts % (Manual) Lymphocytes % (Manual) Nucleated RBC % Lymphocytes # (Manual) ABG pO2 ABG HCO3 ABG Base Excess ABG Hemoglobin VBG pH Oxyhemoglobin Sodium Potassium Chloride 110.1 H Carbon Dioxide 13 L BUN 23 H Creatinine Glucose 206 H POC Glucose 170 H Hemoglobin A1c Lactic Acid 2.10 H* Calcium Phosphorus Magnesium 2.40 H Alkaline Phosphatase C-Reactive Protein Albumin 04/25/21 04/25/21 04/25/21 19:52 20:53 21:54 RBC Hgb Hct MCV MCH Seg Neuts % (Manual) Lymphocytes % (Manual) Nucleated RBC % Lymphocytes # (Manual) ABG pO2 ABG HCO3 ABG Base Excess ABG Hemoglobin VBG pH Oxyhemoglobin Sodium Potassium Chloride Carbon Dioxide BUN Creatinine Glucose POC Glucose 162 H 171 H 139 H Hemoglobin A1c Lactic Acid Calcium Phosphorus Magnesium Alkaline Phosphatase C-Reactive Protein Albumin 04/25/21 04/26/21 04/26/21 22:53 00:03 00:38 RBC Hgb Hct MCV MCH Seg Neuts % (Manual) Lymphocytes % (Manual) Nucleated RBC % Lymphocytes # (Manual) ABG pO2 ABG HCO3 ABG Base Excess ABG Hemoglobin VBG pH Oxyhemoglobin Sodium Potassium Chloride 112.6 H Carbon Dioxide 14 L BUN 22 H Creatinine Glucose 149 H POC Glucose 140 H 129 H Hemoglobin A1c Lactic Acid Calcium Phosphorus Magnesium 2.40 H Alkaline Phosphatase C-Reactive Protein Albumin 04/26/21 04/26/21 04/26/21 01:00 01:56 02:54 RBC Hgb Hct MCV MCH Seg Neuts % (Manual) Lymphocytes % (Manual) Nucleated RBC % Lymphocytes # (Manual) ABG pO2 ABG HCO3 ABG Base Excess ABG Hemoglobin VBG pH Oxyhemoglobin Sodium Potassium Chloride Carbon Dioxide BUN Creatinine Glucose POC Glucose 126 H 137 H 132 H Hemoglobin A1c Lactic Acid Calcium Phosphorus Magnesium Alkaline Phosphatase C-Reactive Protein Albumin 04/26/21 04/26/21 04/26/21 04:04 05:02 05:02 RBC 3.44 L Hgb 8.9 L Hct 26.9 L MCV 78 L MCH 26 L Seg Neuts % (Manual) Lymphocytes % (Manual) Nucleated RBC % Lymphocytes # (Manual) ABG pO2 ABG HCO3 ABG Base Excess ABG Hemoglobin VBG pH Oxyhemoglobin Sodium Potassium Chloride 114.8 H Carbon Dioxide 14 L BUN 22 H Creatinine Glucose 129 H POC Glucose 130 H Hemoglobin A1c Lactic Acid Calcium Phosphorus Magnesium Alkaline Phosphatase C-Reactive Protein Albumin 04/26/21 04/26/21 04/26/21 05:03 06:06 06:53 RBC Hgb Hct MCV MCH Seg Neuts % (Manual) Lymphocytes % (Manual) Nucleated RBC % Lymphocytes # (Manual) ABG pO2 ABG HCO3 ABG Base Excess ABG Hemoglobin VBG pH Oxyhemoglobin Sodium Potassium Chloride Carbon Dioxide BUN Creatinine Glucose POC Glucose 115 H 129 H 121 H Hemoglobin A1c Lactic Acid Calcium Phosphorus Magnesium Alkaline Phosphatase C-Reactive Protein Albumin 04/26/21 04/26/21 04/26/21 07:58 09:09 10:05 RBC Hgb Hct MCV MCH Seg Neuts % (Manual) Lymphocytes % (Manual) Nucleated RBC % Lymphocytes # (Manual) ABG pO2 ABG HCO3 ABG Base Excess ABG Hemoglobin VBG pH Oxyhemoglobin Sodium Potassium Chloride Carbon Dioxide BUN Creatinine Glucose POC Glucose 124 H 125 H 131 H Hemoglobin A1c Lactic Acid Calcium Phosphorus Magnesium Alkaline Phosphatase C-Reactive Protein Albumin 04/26/21 04/26/21 10:52 12:00 RBC Hgb Hct MCV MCH Seg Neuts % (Manual) Lymphocytes % (Manual) Nucleated RBC % Lymphocytes # (Manual) ABG pO2 ABG HCO3 ABG Base Excess ABG Hemoglobin VBG pH Oxyhemoglobin Sodium Potassium Chloride Carbon Dioxide BUN Creatinine Glucose POC Glucose 129 H 126 H Hemoglobin A1c Lactic Acid Calcium Phosphorus Magnesium Alkaline Phosphatase C-Reactive Protein Albumin Chest x-ray: image reviewed (persistent hypoventilation) Allied health notes reviewed: nursing
[2021-04-26] MEDS ORDERED: DEXTROSE 50% IN WATER (25GM) 50 ML SYRINGE IV PRN (14:00)
[2021-04-26] MEDS ORDERED: INSULIN GLARGINE 100 UNITS/ML SUB-Q NR (14:30)
[2021-04-26 14:33] LABS: Blood Urea Nitrogen 22 mg/dL (7-17); Calcium 8.8 mg/dL (8.4-10.2); Hemolysis Index 15
[2021-04-26 14:34] LABS: BUN/Creatinine Ratio 37
--- NOTE | 2021-04-26 15:18 | Progress Note ---
Assessment and Plan Cultures: Blood culture GBS Blood culture 04/26/2021 A/P: 51 yo F PMhx DM2, HTN, morbid obesity preents with sepsis #Acute sepsis: present with hypothermia, tachycardia, and tachypnea. Secondary to GPC bacteremia/ #GPC bacteremia: iGBS. Unclear source for now, pending finalization of the cultures. Possible from right knee wound, though no septic arthritis. #DM2: tight glyvcemic control for best outcomes. #Right knee wound/?septic arthritis Recs: -Stopped vancomcyin -Continue ceftriaxone 2g q24h. -Case management consulted for ceftriaxone 2g q24h until 05/10/2021 -Follow up repeat blood cultures -OK for midline when new cultures negative x48 hours. Thank you for the consult, we will continue to follow. Candelario Chawla MD [facility] ([facility]) O: [phone] F: [phone] Subjective Date of service: 04/26/21 Principal diagnosis: HAGMA; DKA; AMS; Obesity; Osteoarthritis; Hypercalcemia Interval history: Afebrile, normal white count. Blood cultures with group B strep. Currently on Venturi mask Imaging personally reviewed: Chest x-ray: Bilateral pulmonary densities TTE: No evidence endocarditis Objective - Exam Narrative Exam: Physical Exam: Constitutional: Alert, cooperative. No acute distress Head, Ears, Nose: Normocephalic, atraumatic. External ears, nose normal Eyes: Conjunctivae/corneas clear. No icterus. No ptosis. Neck: Supple, no meningeal signs Oral: dentition fair, no thrush Cardiovascular: S1, S2 normal. Respiratory: Good air entry, clear to auscultation bilaterally GI: Soft, non-tender; bowel sounds normal. No peritoneal signs. Musculoskeletal: No pedal edema, no cyanosis. Skin: No rash or abscess Hem/Lymphatic: No palpable cervical or supraclavicular nodes. No lymphangitis Psych: Mood ok. Affect normal Neurological: Awake, alert, oriented. No gross abnormality - Constitutional Vitals: Vital Signs Temp Pulse Resp BP Pulse Ox 97.8 F 98 H 23 122/82 98 04/26/21 08:00 04/26/21 08:00 04/26/21 08:00 04/26/21 08:00 04/26/21 08:00 Temperature -Last 24 Hours Temperature 97.8 F Temperature 97.4 F Temperature 96.9 F Temperature 97.7 F Temperature 98.1 F - Labs CBC & Chem 7: 04/26/21 05:02 04/26/21 14:06 Labs: Abnormal lab results 04/25/21 04/25/21 04/25/21 Range/Units 15:09 16:00 18:56 RBC (3.65-5.03) M/mm3 Hgb (10.1-14.3) gm/dl Hct (30.3-42.9) % MCV (79-97) fl MCH (28-32) pg Potassium (3.6-5.0) mmol/L Chloride (98-107) mmol/L Carbon Dioxide (22-30) mmol/L BUN (7-17) mg/dL Glucose (65-100) mg/dL POC Glucose 134 H 135 H 170 H (70-105) mg/dL Lactic Acid (0.7-2.0) mmol/L Magnesium (1.7-2.3) mg/dL 04/25/21 04/25/21 04/25/21 Range/Units 18:58 18:58 19:52 RBC (3.65-5.03) M/mm3 Hgb (10.1-14.3) gm/dl Hct (30.3-42.9) % MCV (79-97) fl MCH (28-32) pg Potassium (3.6-5.0) mmol/L Chloride 110.1 H (98-107) mmol/L Carbon Dioxide 13 L (22-30) mmol/L BUN 23 H (7-17) mg/dL Glucose 206 H (65-100) mg/dL POC Glucose 162 H (70-105) mg/dL Lactic Acid 2.10 H* (0.7-2.0) mmol/L Magnesium 2.40 H (1.7-2.3) mg/dL 04/25/21 04/25/21 04/25/21 Range/Units 20:53 21:54 22:53 RBC (3.65-5.03) M/mm3 Hgb (10.1-14.3) gm/dl Hct (30.3-42.9) % MCV (79-97) fl MCH (28-32) pg Potassium (3.6-5.0) mmol/L Chloride (98-107) mmol/L Carbon Dioxide (22-30) mmol/L BUN (7-17) mg/dL Glucose (65-100) mg/dL POC Glucose 171 H 139 H 140 H (70-105) mg/dL Lactic Acid (0.7-2.0) mmol/L Magnesium (1.7-2.3) mg/dL 04/26/21 04/26/21 04/26/21 Range/Units 00:03 00:38 01:00 RBC (3.65-5.03) M/mm3 Hgb (10.1-14.3) gm/dl Hct (30.3-42.9) % MCV (79-97) fl MCH (28-32) pg Potassium (3.6-5.0) mmol/L Chloride 112.6 H (98-107) mmol/L Carbon Dioxide 14 L (22-30) mmol/L BUN 22 H (7-17) mg/dL Glucose 149 H (65-100) mg/dL POC Glucose 129 H 126 H (70-105) mg/dL Lactic Acid (0.7-2.0) mmol/L Magnesium 2.40 H (1.7-2.3) mg/dL 04/26/21 04/26/21 04/26/21 Range/Units 01:56 02:54 04:04 RBC (3.65-5.03) M/mm3 Hgb (10.1-14.3) gm/dl Hct (30.3-42.9) % MCV (79-97) fl MCH (28-32) pg Potassium (3.6-5.0) mmol/L Chloride (98-107) mmol/L Carbon Dioxide (22-30) mmol/L BUN (7-17) mg/dL Glucose (65-100) mg/dL POC Glucose 137 H 132 H 130 H (70-105) mg/dL Lactic Acid (0.7-2.0) mmol/L Magnesium (1.7-2.3) mg/dL 04/26/21 04/26/21 04/26/21 Range/Units 05:02 05:02 05:03 RBC 3.44 L (3.65-5.03) M/mm3 Hgb 8.9 L (10.1-14.3) gm/dl Hct 26.9 L (30.3-42.9) % MCV 78 L (79-97) fl MCH 26 L (28-32) pg Potassium (3.6-5.0) mmol/L Chloride 114.8 H (98-107) mmol/L Carbon Dioxide 14 L (22-30) mmol/L BUN 22 H (7-17) mg/dL Glucose 129 H (65-100) mg/dL POC Glucose 115 H (70-105) mg/dL Lactic Acid (0.7-2.0) mmol/L Magnesium (1.7-2.3) mg/dL 04/26/21 04/26/21 04/26/21 Range/Units 06:06 06:53 07:58 RBC (3.65-5.03) M/mm3 Hgb (10.1-14.3) gm/dl Hct (30.3-42.9) % MCV (79-97) fl MCH (28-32) pg Potassium (3.6-5.0) mmol/L Chloride (98-107) mmol/L Carbon Dioxide (22-30) mmol/L BUN (7-17) mg/dL Glucose (65-100) mg/dL POC Glucose 129 H 121 H 124 H (70-105) mg/dL Lactic Acid (0.7-2.0) mmol/L Magnesium (1.7-2.3) mg/dL 04/26/21 04/26/21 04/26/21 Range/Units 09:09 10:05 10:52 RBC (3.65-5.03) M/mm3 Hgb (10.1-14.3) gm/dl Hct (30.3-42.9) % MCV (79-97) fl MCH (28-32) pg Potassium (3.6-5.0) mmol/L Chloride (98-107) mmol/L Carbon Dioxide (22-30) mmol/L BUN (7-17) mg/dL Glucose (65-100) mg/dL POC Glucose 125 H 131 H 129 H (70-105) mg/dL Lactic Acid (0.7-2.0) mmol/L Magnesium (1.7-2.3) mg/dL 04/26/21 04/26/21 04/26/21 Range/Units 12:00 13:17 14:06 RBC (3.65-5.03) M/mm3 Hgb (10.1-14.3) gm/dl Hct (30.3-42.9) % MCV (79-97) fl MCH (28-32) pg Potassium 5.3 H D (3.6-5.0) mmol/L Chloride 112.2 H (98-107) mmol/L Carbon Dioxide 14 L (22-30) mmol/L BUN 22 H (7-17) mg/dL Glucose 116 H (65-100) mg/dL POC Glucose 126 H 130 H (70-105) mg/dL Lactic Acid (0.7-2.0) mmol/L Magnesium 2.40 H (1.7-2.3) mg/dL 04/26/21 Range/Units 14:11 RBC (3.65-5.03) M/mm3 Hgb (10.1-14.3) gm/dl Hct (30.3-42.9) % MCV (79-97) fl MCH (28-32) pg Potassium (3.6-5.0) mmol/L Chloride (98-107) mmol/L Carbon Dioxide (22-30) mmol/L BUN (7-17) mg/dL Glucose (65-100) mg/dL POC Glucose 132 H (70-105) mg/dL Lactic Acid (0.7-2.0) mmol/L Magnesium (1.7-2.3) mg/dL
[2021-04-26 16:07] LABS: Blood Urea Nitrogen 22 mg/dL (7-17); Calcium 8.6 mg/dL (8.4-10.2); Hemolysis Index 52
[2021-04-26 16:10] LABS: BUN/Creatinine Ratio 37
[2021-04-26] MEDS: INSULIN LISPRO 100 UNIT/ML SUB-Q SCH ×2 (16:22→17:59)
[2021-04-27 04:54] LABS: Hematocrit 25.1 % (30.3-42.9); Hemoglobin 8.1 gm/dl (10.1-14.3); Mean Corpuscular HGB Conc 32 % (30-34); Mean Corpuscular Volume 78 fl (79-97); Platelet Count 170 K/mm3 (140-440); Red Cell Distribution Width 15.1 % (13.2-15.2)
[2021-04-27 05:06] LABS: BUN/Creatinine Ratio 33; Blood Urea Nitrogen 30 mg/dL (7-17); Calcium 8.7 mg/dL (8.4-10.2); Hemolysis Index 1
[2021-04-27] MEDS: INSULIN LISPRO 100 UNIT/ML SUB-Q SCH ×5 (06:20→17:27)
[2021-04-27] MEDS ORDERED: INSULIN NPH/REGULAR 70/30 INJ SUB-Q SCH (09:00)
[2021-04-27] MEDS: VANCOMYCIN 2,000 MG in SODIUM CHLORIDE 0.9% 500 ML 500 ML IV SCH (10:01)
[2021-04-27] MEDS: ENOXAPARIN 40 MG/0.4 ML INJ SUB-Q SCH ×2 (10:01→22:01)
[2021-04-27] MEDS: FAMOTIDINE 20 MG/2 ML INJ IV SCH (10:01)
--- NOTE | 2021-04-27 12:56 | Progress Note ---
Assessment and Plan Acute metabolic acidosis Diabetic ketoacidosis Acute toxic metabolic encephalopathy Obesity Osteoarthritis Hypercalcemia - run sterile water with 2 AMPS MaHCO3/liter @ 75 ml's/hr X 2 liters - continue qhs BIPAP - swallow re-evaluation on thursday - insulin increased - continue care as below otherwise; - prn NT suction at this point - continue aspiration precautions (HOB > 40 degrees) - continue accuchecks with glycemic control per SSI for target blood glucose of < 80 mg/dL; avoid hypoglycemia - antiinfective's per ID team recommendations (Rocephin) - wean supplemental oxygen for target O2 sat's > 90% acutely - prn bronchodilators with pulmonary hygiene per RT - avoid nephrotoxins, renally dose all medications - avoid benzodiazepine's, reduce the possibility of delirium - prn analgesia per pain score - Maintenance of sleep-wake cycle, avoid delirium - G.I. & VTE prophylaxis - PT/OT/ROM exercises - continue mobility protocols for pressure ulcer prophylaxis - Monitor hemodynamics closely - continue other care per attending / other consultants - discharge planning ongoing concurrently ... transfer to [facility] status .... Re-evaluate in am & prn Subjective Date of service: 04/27/21 Principal diagnosis: HAGMA; DKA; AMS; Obesity; Osteoarthritis; Hypercalcemia Interval history: Patient is seen today for: Acute metabolic acidosis; Diabetic ketoacidosis; Acute toxic metabolic encephalopathy; Obesity; Osteoarthritis; Hypercalcemia Seen and examined at bedside; 24hour events reviewed; nursing and respiratory care staff consulted; no adverse overnight events reported to me; resting peacefully in bed; remains on supplemental oxygen; secretions much better controlled; tolerating enteral nutrition; no vasopressors and off IV insulin but sugars still running a little high Objective Vital Signs - 12hr 04/27/21 04/27/21 04/27/21 01:00 01:30 02:00 Temperature Pulse Rate 111 H 106 H 108 H Pulse Rate [ From Monitor] Respiratory 47 H 38 H 46 H Rate Blood Pressure 115/52 140/62 140/62 O2 Sat by Pulse 97 98 98 Oximetry 04/27/21 04/27/21 04/27/21 02:30 03:00 03:30 Temperature Pulse Rate 106 H 108 H 108 H Pulse Rate [ From Monitor] Respiratory 42 H 45 H 50 H Rate Blood Pressure 115/72 122/72 125/77 O2 Sat by Pulse 98 Oximetry 04/27/21 04/27/21 04/27/21 04:00 04:30 05:00 Temperature 99.6 F Pulse Rate 110 H 109 H 109 H Pulse Rate [ 102 H From Monitor] Respiratory 37 H 42 H 43 H Rate Blood Pressure 117/74 118/76 111/71 O2 Sat by Pulse 98 98 99 Oximetry 04/27/21 04/27/21 04/27/21 05:30 06:00 06:30 Temperature Pulse Rate 110 H 107 H 108 H Pulse Rate [ From Monitor] Respiratory 50 H 38 H 39 H Rate Blood Pressure 110/74 116/77 116/77 O2 Sat by Pulse 97 99 100 Oximetry 04/27/21 04/27/21 04/27/21 07:00 07:30 08:00 Temperature 98.1 F Pulse Rate 109 H 109 H 111 H Pulse Rate [ 104 H From Monitor] Respiratory 40 H 36 H 40 H Rate Blood Pressure 116/83 138/88 138/88 O2 Sat by Pulse 100 100 100 Oximetry 04/27/21 04/27/21 04/27/21 08:25 08:30 09:00 Temperature Pulse Rate 110 H 107 H Pulse Rate [ From Monitor] Respiratory 38 H 40 H Rate Blood Pressure 144/78 128/77 O2 Sat by Pulse 100 Oximetry 04/27/21 04/27/21 04/27/21 09:30 10:00 10:30 Temperature Pulse Rate 106 H 106 H 104 H Pulse Rate [ From Monitor] Respiratory 40 H 38 H 36 H Rate Blood Pressure 128/77 115/73 120/73 O2 Sat by Pulse 99 98 95 Oximetry 04/27/21 04/27/21 04/27/21 11:00 11:30 12:00 Temperature 99 F Pulse Rate 110 H 104 H 105 H Pulse Rate [ 104 H From Monitor] Respiratory 26 H 36 H 42 H Rate Blood Pressure 120/73 112/64 112/64 O2 Sat by Pulse 95 96 99 Oximetry 04/27/21 12:30 Temperature Pulse Rate 107 H Pulse Rate [ From Monitor] Respiratory 44 H Rate Blood Pressure 96/68 O2 Sat by Pulse 98 Oximetry Constitutional: no acute distress, other (middle aged obese female with mildly increased work of breathing at rest) Eyes: non-icteric ENT: oropharynx moist Neck: supple, no lymphadenopathy, no JVD Effort: mildly labored Ascultation: Bilateral: diminished breath sounds, rhonchi (and referred upper airway sounds) Percussion: Bilateral: not dull Cardiovascular: regular rate and rhythm Gastrointestinal: hypoactive bowel sounds, soft, non-tender, non-distended Integumentary: rash (perineal) Extremities: no cyanosis, no edema, pulses normal, no ischemia or petechiae Neurologic: non-focal exam (grossly), pupils equal and round, CN II-XII normal, motor strength normal and, other (somnolent) Psychiatric: other (flat affect) CBC and BMP: 04/27/21 04:03 04/27/21 04:03 ABG, PT/INR, D-dimer: ABG ABG pH 7.426 pH Units (7.350-7.450) 04/25/21 11:20 ABG pCO2 25.3 mm Hg 04/25/21 11:20 ABG pO2 73.2 mm Hg (80.0-90.0) L 04/25/21 11:20 ABG O2 Saturation 96.9 % (95.0-99.0) 04/25/21 11:20 Abnormal lab findings: Abnormal Labs 04/23/21 04/23/21 04/23/21 10:33 10:33 10:33 RBC Hgb Hct MCV MCH 26 L Seg Neuts % (Manual) Lymphocytes % (Manual) 7.0 L Nucleated RBC % 2.0 H Lymphocytes # (Manual) 0.5 L ABG pO2 ABG HCO3 ABG Base Excess ABG Hemoglobin VBG pH 7.180 L* Oxyhemoglobin Sodium 122 L Potassium 3.0 L Chloride 84.8 L Carbon Dioxide 6 L* BUN 49 H Creatinine 1.4 H Glucose 775 H* POC Glucose Hemoglobin A1c Lactic Acid Calcium 12.2 H* Phosphorus Magnesium Alkaline Phosphatase 130 H C-Reactive Protein Albumin 2.9 L Vancomycin Trough 04/23/21 04/23/21 04/23/21 10:40 12:44 14:01 RBC Hgb Hct MCV MCH Seg Neuts % (Manual) Lymphocytes % (Manual) Nucleated RBC % Lymphocytes # (Manual) ABG pO2 ABG HCO3 ABG Base Excess ABG Hemoglobin VBG pH Oxyhemoglobin Sodium Potassium Chloride Carbon Dioxide BUN Creatinine Glucose POC Glucose > 600 H 550 H Hemoglobin A1c Lactic Acid Calcium Phosphorus 1.50 L Magnesium Alkaline Phosphatase C-Reactive Protein Albumin Vancomycin Trough 04/23/21 04/23/21 04/23/21 14:01 14:56 15:43 RBC Hgb Hct MCV MCH Seg Neuts % (Manual) Lymphocytes % (Manual) Nucleated RBC % Lymphocytes # (Manual) ABG pO2 ABG HCO3 ABG Base Excess ABG Hemoglobin VBG pH Oxyhemoglobin Sodium 125 L 131 L Potassium 3.0 L 2.9 L* Chloride 89.2 L Carbon Dioxide 6 L* 8 L* BUN 45 H 39 H Creatinine 1.3 H Glucose 594 H* 434 H POC Glucose 425 H Hemoglobin A1c Lactic Acid Calcium 10.9 H 10.3 H Phosphorus Magnesium Alkaline Phosphatase C-Reactive Protein Albumin Vancomycin Trough 04/23/21 04/23/21 04/23/21 15:48 17:21 18:07 RBC Hgb Hct MCV MCH Seg Neuts % (Manual) Lymphocytes % (Manual) Nucleated RBC % Lymphocytes # (Manual) ABG pO2 ABG HCO3 ABG Base Excess ABG Hemoglobin VBG pH Oxyhemoglobin Sodium Potassium Chloride Carbon Dioxide BUN Creatinine Glucose POC Glucose 410 H 407 H 428 H Hemoglobin A1c Lactic Acid Calcium Phosphorus Magnesium Alkaline Phosphatase C-Reactive Protein Albumin Vancomycin Trough 04/23/21 04/23/21 04/23/21 19:13 19:54 19:54 RBC Hgb Hct MCV MCH Seg Neuts % (Manual) Lymphocytes % (Manual) Nucleated RBC % Lymphocytes # (Manual) ABG pO2 ABG HCO3 ABG Base Excess ABG Hemoglobin VBG pH Oxyhemoglobin Sodium 131 L Potassium 3.1 L Chloride 95.9 L Carbon Dioxide 7 L* BUN 39 H Creatinine Glucose 391 H POC Glucose 350 H Hemoglobin A1c Lactic Acid Calcium 11.2 H Phosphorus 1.10 L D Magnesium Alkaline Phosphatase C-Reactive Protein Albumin Vancomycin Trough 04/23/21 04/23/21 04/23/21 20:12 20:59 22:05 RBC Hgb Hct MCV MCH Seg Neuts % (Manual) Lymphocytes % (Manual) Nucleated RBC % Lymphocytes # (Manual) ABG pO2 ABG HCO3 ABG Base Excess ABG Hemoglobin VBG pH Oxyhemoglobin Sodium Potassium Chloride Carbon Dioxide BUN Creatinine Glucose POC Glucose 365 H 286 H 257 H Hemoglobin A1c Lactic Acid Calcium Phosphorus Magnesium Alkaline Phosphatase C-Reactive Protein Albumin Vancomycin Trough 04/23/21 04/23/21 04/23/21 22:23 22:59 23:57 RBC Hgb Hct MCV MCH Seg Neuts % (Manual) Lymphocytes % (Manual) Nucleated RBC % Lymphocytes # (Manual) ABG pO2 ABG HCO3 ABG Base Excess ABG Hemoglobin VBG pH Oxyhemoglobin Sodium 135 L Potassium 3.2 L Chloride Carbon Dioxide 10 L BUN 35 H Creatinine Glucose 300 H POC Glucose 238 H 223 H Hemoglobin A1c Lactic Acid Calcium 11.6 H Phosphorus Magnesium Alkaline Phosphatase C-Reactive Protein Albumin Vancomycin Trough 04/24/21 04/24/21 04/24/21 00:10 00:56 01:58 RBC Hgb Hct MCV MCH Seg Neuts % (Manual) Lymphocytes % (Manual) Nucleated RBC % Lymphocytes # (Manual) ABG pO2 ABG HCO3 ABG Base Excess ABG Hemoglobin VBG pH Oxyhemoglobin Sodium Potassium 3.2 L Chloride Carbon Dioxide 13 L BUN 33 H Creatinine Glucose 267 H POC Glucose 254 H 264 H Hemoglobin A1c Lactic Acid Calcium 11.2 H Phosphorus 1.20 L Magnesium Alkaline Phosphatase C-Reactive Protein Albumin Vancomycin Trough 04/24/21 04/24/21 04/24/21 02:58 03:57 04:16 RBC Hgb Hct MCV MCH Seg Neuts % (Manual) Lymphocytes % (Manual) Nucleated RBC % Lymphocytes # (Manual) ABG pO2 ABG HCO3 ABG Base Excess ABG Hemoglobin VBG pH Oxyhemoglobin Sodium Potassium Chloride 108.0 H Carbon Dioxide 13 L BUN 31 H Creatinine Glucose 243 H POC Glucose 251 H 200 H Hemoglobin A1c Lactic Acid Calcium 10.9 H Phosphorus 1.80 L D Magnesium Alkaline Phosphatase C-Reactive Protein Albumin Vancomycin Trough 04/24/21 04/24/21 04/24/21 04:16 04:16 04:59 RBC Hgb Hct MCV MCH 26 L Seg Neuts % (Manual) Lymphocytes % (Manual) Nucleated RBC % Lymphocytes # (Manual) ABG pO2 ABG HCO3 ABG Base Excess ABG Hemoglobin VBG pH Oxyhemoglobin Sodium Potassium Chloride Carbon Dioxide BUN Creatinine Glucose POC Glucose 208 H Hemoglobin A1c 18.3 H Lactic Acid Calcium Phosphorus Magnesium Alkaline Phosphatase C-Reactive Protein Albumin Vancomycin Trough 04/24/21 04/24/21 04/24/21 05:53 06:51 07:58 RBC Hgb Hct MCV MCH Seg Neuts % (Manual) Lymphocytes % (Manual) Nucleated RBC % Lymphocytes # (Manual) ABG pO2 ABG HCO3 ABG Base Excess ABG Hemoglobin VBG pH Oxyhemoglobin Sodium Potassium Chloride Carbon Dioxide BUN Creatinine Glucose POC Glucose 213 H 161 H 149 H Hemoglobin A1c Lactic Acid Calcium Phosphorus Magnesium Alkaline Phosphatase C-Reactive Protein Albumin Vancomycin Trough 04/24/21 04/24/21 04/24/21 09:21 10:06 11:03 RBC Hgb Hct MCV MCH Seg Neuts % (Manual) Lymphocytes % (Manual) Nucleated RBC % Lymphocytes # (Manual) ABG pO2 ABG HCO3 ABG Base Excess ABG Hemoglobin VBG pH Oxyhemoglobin Sodium Potassium Chloride Carbon Dioxide BUN Creatinine Glucose POC Glucose 178 H 164 H 157 H Hemoglobin A1c Lactic Acid Calcium Phosphorus Magnesium Alkaline Phosphatase C-Reactive Protein Albumin Vancomycin Trough 04/24/21 04/24/21 04/24/21 12:07 12:14 12:14 RBC Hgb Hct MCV MCH Seg Neuts % (Manual) Lymphocytes % (Manual) Nucleated RBC % Lymphocytes # (Manual) ABG pO2 ABG HCO3 ABG Base Excess ABG Hemoglobin VBG pH Oxyhemoglobin Sodium Potassium 3.2 L Chloride 108.7 H Carbon Dioxide 16 L BUN 24 H Creatinine Glucose 160 H POC Glucose 142 H Hemoglobin A1c Lactic Acid 2.50 H* Calcium 10.5 H Phosphorus 0.70 L* D Magnesium Alkaline Phosphatase C-Reactive Protein Albumin Vancomycin Trough 04/24/21 04/24/21 04/24/21 13:02 14:00 15:14 RBC Hgb Hct MCV MCH Seg Neuts % (Manual) Lymphocytes % (Manual) Nucleated RBC % Lymphocytes # (Manual) ABG pO2 ABG HCO3 ABG Base Excess ABG Hemoglobin VBG pH Oxyhemoglobin Sodium Potassium Chloride Carbon Dioxide BUN Creatinine Glucose POC Glucose 138 H 150 H 145 H Hemoglobin A1c Lactic Acid Calcium Phosphorus Magnesium Alkaline Phosphatase C-Reactive Protein Albumin Vancomycin Trough 04/24/21 04/24/21 04/24/21 16:07 17:11 18:12 RBC Hgb Hct MCV MCH Seg Neuts % (Manual) Lymphocytes % (Manual) Nucleated RBC % Lymphocytes # (Manual) ABG pO2 ABG HCO3 ABG Base Excess ABG Hemoglobin VBG pH Oxyhemoglobin Sodium Potassium Chloride Carbon Dioxide BUN Creatinine Glucose POC Glucose 148 H 156 H 153 H Hemoglobin A1c Lactic Acid Calcium Phosphorus Magnesium Alkaline Phosphatase C-Reactive Protein Albumin Vancomycin Trough 04/24/21 04/24/21 04/24/21 18:24 19:55 20:55 RBC Hgb Hct MCV MCH Seg Neuts % (Manual) Lymphocytes % (Manual) Nucleated RBC % Lymphocytes # (Manual) ABG pO2 ABG HCO3 ABG Base Excess ABG Hemoglobin VBG pH Oxyhemoglobin Sodium Potassium Chloride 109.2 H Carbon Dioxide 15 L BUN 22 H Creatinine Glucose 159 H POC Glucose 176 H 146 H Hemoglobin A1c Lactic Acid Calcium Phosphorus 1.80 L D Magnesium Alkaline Phosphatase C-Reactive Protein 24.30 H Albumin Vancomycin Trough 04/24/21 04/24/21 04/24/21 22:04 23:02 23:13 RBC Hgb Hct MCV MCH Seg Neuts % (Manual) Lymphocytes % (Manual) Nucleated RBC % Lymphocytes # (Manual) ABG pO2 ABG HCO3 ABG Base Excess ABG Hemoglobin VBG pH Oxyhemoglobin Sodium Potassium Chloride Carbon Dioxide BUN Creatinine Glucose POC Glucose 169 H 144 H Hemoglobin A1c Lactic Acid 3.10 H* Calcium Phosphorus Magnesium Alkaline Phosphatase C-Reactive Protein Albumin Vancomycin Trough 04/25/21 04/25/21 04/25/21 00:05 01:28 02:03 RBC Hgb Hct MCV MCH Seg Neuts % (Manual) Lymphocytes % (Manual) Nucleated RBC % Lymphocytes # (Manual) ABG pO2 ABG HCO3 ABG Base Excess ABG Hemoglobin VBG pH Oxyhemoglobin Sodium Potassium Chloride Carbon Dioxide BUN Creatinine Glucose POC Glucose 150 H 142 H 148 H Hemoglobin A1c Lactic Acid Calcium Phosphorus Magnesium Alkaline Phosphatase C-Reactive Protein Albumin Vancomycin Trough 04/25/21 04/25/21 04/25/21 03:07 04:17 05:48 RBC Hgb Hct MCV MCH Seg Neuts % (Manual) Lymphocytes % (Manual) Nucleated RBC % Lymphocytes # (Manual) ABG pO2 ABG HCO3 ABG Base Excess ABG Hemoglobin VBG pH Oxyhemoglobin Sodium Potassium Chloride Carbon Dioxide BUN Creatinine Glucose POC Glucose 161 H 158 H 136 H Hemoglobin A1c Lactic Acid Calcium Phosphorus Magnesium Alkaline Phosphatase C-Reactive Protein Albumin Vancomycin Trough 04/25/21 04/25/21 04/25/21 06:52 07:58 08:10 RBC Hgb 9.5 L Hct 28.8 L MCV MCH 26 L Seg Neuts % (Manual) 33.0 L Lymphocytes % (Manual) Nucleated RBC % Lymphocytes # (Manual) 1.1 L ABG pO2 ABG HCO3 ABG Base Excess ABG Hemoglobin VBG pH Oxyhemoglobin Sodium Potassium Chloride Carbon Dioxide BUN Creatinine Glucose POC Glucose 137 H 143 H Hemoglobin A1c Lactic Acid Calcium Phosphorus Magnesium Alkaline Phosphatase C-Reactive Protein Albumin Vancomycin Trough 04/25/21 04/25/21 04/25/21 08:10 08:10 08:53 RBC Hgb Hct MCV MCH Seg Neuts % (Manual) Lymphocytes % (Manual) Nucleated RBC % Lymphocytes # (Manual) ABG pO2 ABG HCO3 ABG Base Excess ABG Hemoglobin VBG pH Oxyhemoglobin Sodium Potassium 3.3 L Chloride 109.0 H Carbon Dioxide 16 L BUN 23 H Creatinine Glucose 151 H POC Glucose 132 H Hemoglobin A1c Lactic Acid 2.10 H* Calcium Phosphorus 2.20 L D Magnesium 1.60 L Alkaline Phosphatase C-Reactive Protein Albumin Vancomycin Trough 04/25/21 04/25/21 04/25/21 09:59 11:20 11:20 RBC Hgb Hct MCV MCH Seg Neuts % (Manual) Lymphocytes % (Manual) Nucleated RBC % Lymphocytes # (Manual) ABG pO2 73.2 L ABG HCO3 16.2 L ABG Base Excess -7.1 L ABG Hemoglobin 8.7 L VBG pH Oxyhemoglobin 94.8 L Sodium Potassium Chloride Carbon Dioxide BUN Creatinine Glucose POC Glucose 141 H 141 H Hemoglobin A1c Lactic Acid Calcium Phosphorus Magnesium Alkaline Phosphatase C-Reactive Protein Albumin Vancomycin Trough 04/25/21 04/25/21 04/25/21 12:04 12:26 13:04 RBC Hgb Hct MCV MCH Seg Neuts % (Manual) Lymphocytes % (Manual) Nucleated RBC % Lymphocytes # (Manual) ABG pO2 ABG HCO3 ABG Base Excess ABG Hemoglobin VBG pH Oxyhemoglobin Sodium Potassium 3.4 L Chloride 109.5 H Carbon Dioxide 14 L BUN 21 H Creatinine Glucose 155 H POC Glucose 129 H 135 H Hemoglobin A1c Lactic Acid Calcium Phosphorus 1.90 L Magnesium 1.60 L Alkaline Phosphatase C-Reactive Protein Albumin Vancomycin Trough 04/25/21 04/25/21 04/25/21 13:58 15:09 16:00 RBC Hgb Hct MCV MCH Seg Neuts % (Manual) Lymphocytes % (Manual) Nucleated RBC % Lymphocytes # (Manual) ABG pO2 ABG HCO3 ABG Base Excess ABG Hemoglobin VBG pH Oxyhemoglobin Sodium Potassium Chloride Carbon Dioxide BUN Creatinine Glucose POC Glucose 140 H 134 H 135 H Hemoglobin A1c Lactic Acid Calcium Phosphorus Magnesium Alkaline Phosphatase C-Reactive Protein Albumin Vancomycin Trough 04/25/21 04/25/21 04/25/21 18:56 18:58 18:58 RBC Hgb Hct MCV MCH Seg Neuts % (Manual) Lymphocytes % (Manual) Nucleated RBC % Lymphocytes # (Manual) ABG pO2 ABG HCO3 ABG Base Excess ABG Hemoglobin VBG pH Oxyhemoglobin Sodium Potassium Chloride 110.1 H Carbon Dioxide 13 L BUN 23 H Creatinine Glucose 206 H POC Glucose 170 H Hemoglobin A1c Lactic Acid 2.10 H* Calcium Phosphorus Magnesium 2.40 H Alkaline Phosphatase C-Reactive Protein Albumin Vancomycin Trough 04/25/21 04/25/21 04/25/21 19:52 20:53 21:54 RBC Hgb Hct MCV MCH Seg Neuts % (Manual) Lymphocytes % (Manual) Nucleated RBC % Lymphocytes # (Manual) ABG pO2 ABG HCO3 ABG Base Excess ABG Hemoglobin VBG pH Oxyhemoglobin Sodium Potassium Chloride Carbon Dioxide BUN Creatinine Glucose POC Glucose 162 H 171 H 139 H Hemoglobin A1c Lactic Acid Calcium Phosphorus Magnesium Alkaline Phosphatase C-Reactive Protein Albumin Vancomycin Trough 04/25/21 04/26/21 04/26/21 22:53 00:03 00:38 RBC Hgb Hct MCV MCH Seg Neuts % (Manual) Lymphocytes % (Manual) Nucleated RBC % Lymphocytes # (Manual) ABG pO2 ABG HCO3 ABG Base Excess ABG Hemoglobin VBG pH Oxyhemoglobin Sodium Potassium Chloride 112.6 H Carbon Dioxide 14 L BUN 22 H Creatinine Glucose 149 H POC Glucose 140 H 129 H Hemoglobin A1c Lactic Acid Calcium Phosphorus Magnesium 2.40 H Alkaline Phosphatase C-Reactive Protein Albumin Vancomycin Trough 04/26/21 04/26/21 04/26/21 01:00 01:56 02:54 RBC Hgb Hct MCV MCH Seg Neuts % (Manual) Lymphocytes % (Manual) Nucleated RBC % Lymphocytes # (Manual) ABG pO2 ABG HCO3 ABG Base Excess ABG Hemoglobin VBG pH Oxyhemoglobin Sodium Potassium Chloride Carbon Dioxide BUN Creatinine Glucose POC Glucose 126 H 137 H 132 H Hemoglobin A1c Lactic Acid Calcium Phosphorus Magnesium Alkaline Phosphatase C-Reactive Protein Albumin Vancomycin Trough 04/26/21 04/26/21 04/26/21 04:04 05:02 05:02 RBC 3.44 L Hgb 8.9 L Hct 26.9 L MCV 78 L MCH 26 L Seg Neuts % (Manual) Lymphocytes % (Manual) Nucleated RBC % Lymphocytes # (Manual) ABG pO2 ABG HCO3 ABG Base Excess ABG Hemoglobin VBG pH Oxyhemoglobin Sodium Potassium Chloride 114.8 H Carbon Dioxide 14 L BUN 22 H Creatinine Glucose 129 H POC Glucose 130 H Hemoglobin A1c Lactic Acid Calcium Phosphorus Magnesium Alkaline Phosphatase C-Reactive Protein Albumin Vancomycin Trough 04/26/21 04/26/21 04/26/21 05:03 06:06 06:53 RBC Hgb Hct MCV MCH Seg Neuts % (Manual) Lymphocytes % (Manual) Nucleated RBC % Lymphocytes # (Manual) ABG pO2 ABG HCO3 ABG Base Excess ABG Hemoglobin VBG pH Oxyhemoglobin Sodium Potassium Chloride Carbon Dioxide BUN Creatinine Glucose POC Glucose 115 H 129 H 121 H Hemoglobin A1c Lactic Acid Calcium Phosphorus Magnesium Alkaline Phosphatase C-Reactive Protein Albumin Vancomycin Trough 04/26/21 04/26/21 04/26/21 07:58 09:09 10:05 RBC Hgb Hct MCV MCH Seg Neuts % (Manual) Lymphocytes % (Manual) Nucleated RBC % Lymphocytes # (Manual) ABG pO2 ABG HCO3 ABG Base Excess ABG Hemoglobin VBG pH Oxyhemoglobin Sodium Potassium Chloride Carbon Dioxide BUN Creatinine Glucose POC Glucose 124 H 125 H 131 H Hemoglobin A1c Lactic Acid Calcium Phosphorus Magnesium Alkaline Phosphatase C-Reactive Protein Albumin Vancomycin Trough 04/26/21 04/26/21 04/26/21 10:52 12:00 13:17 RBC Hgb Hct MCV MCH Seg Neuts % (Manual) Lymphocytes % (Manual) Nucleated RBC % Lymphocytes # (Manual) ABG pO2 ABG HCO3 ABG Base Excess ABG Hemoglobin VBG pH Oxyhemoglobin Sodium Potassium Chloride Carbon Dioxide BUN Creatinine Glucose POC Glucose 129 H 126 H 130 H Hemoglobin A1c Lactic Acid Calcium Phosphorus Magnesium Alkaline Phosphatase C-Reactive Protein Albumin Vancomycin Trough 04/26/21 04/26/21 04/26/21 14:06 14:11 15:07 RBC Hgb Hct MCV MCH Seg Neuts % (Manual) Lymphocytes % (Manual) Nucleated RBC % Lymphocytes # (Manual) ABG pO2 ABG HCO3 ABG Base Excess ABG Hemoglobin VBG pH Oxyhemoglobin Sodium Potassium 5.3 H D Chloride 112.2 H Carbon Dioxide 14 L BUN 22 H Creatinine Glucose 116 H POC Glucose 132 H 130 H Hemoglobin A1c Lactic Acid Calcium Phosphorus Magnesium 2.40 H Alkaline Phosphatase C-Reactive Protein Albumin Vancomycin Trough 04/26/21 04/26/21 04/26/21 15:20 16:05 17:55 RBC Hgb Hct MCV MCH Seg Neuts % (Manual) Lymphocytes % (Manual) Nucleated RBC % Lymphocytes # (Manual) ABG pO2 ABG HCO3 ABG Base Excess ABG Hemoglobin VBG pH Oxyhemoglobin Sodium Potassium Chloride 112.4 H Carbon Dioxide 13 L BUN 22 H Creatinine Glucose 143 H POC Glucose 156 H 194 H Hemoglobin A1c Lactic Acid Calcium Phosphorus Magnesium Alkaline Phosphatase C-Reactive Protein Albumin Vancomycin Trough 04/26/21 04/27/21 04/27/21 19:27 00:02 04:03 RBC 3.20 L Hgb 8.1 L Hct 25.1 L MCV 78 L MCH 25 L Seg Neuts % (Manual) Lymphocytes % (Manual) Nucleated RBC % Lymphocytes # (Manual) ABG pO2 ABG HCO3 ABG Base Excess ABG Hemoglobin VBG pH Oxyhemoglobin Sodium Potassium Chloride Carbon Dioxide BUN Creatinine Glucose POC Glucose 261 H Hemoglobin A1c Lactic Acid Calcium Phosphorus Magnesium Alkaline Phosphatase C-Reactive Protein Albumin Vancomycin Trough 38.2 H 04/27/21 04/27/21 04/27/21 04:03 05:33 09:51 RBC Hgb Hct MCV MCH Seg Neuts % (Manual) Lymphocytes % (Manual) Nucleated RBC % Lymphocytes # (Manual) ABG pO2 ABG HCO3 ABG Base Excess ABG Hemoglobin VBG pH Oxyhemoglobin Sodium Potassium Chloride 112.4 H Carbon Dioxide 12 L BUN 30 H Creatinine Glucose 330 H POC Glucose 311 H 335 H Hemoglobin A1c Lactic Acid Calcium Phosphorus Magnesium Alkaline Phosphatase C-Reactive Protein Albumin Vancomycin Trough Chest x-ray: image reviewed (persistent stable bilateral infiltrates) Allied health notes reviewed: nursing
--- NOTE | 2021-04-27 13:17 | Progress Note ---
<ANA MUÑOZ - Last Filed: 04/27/21 14:45> Assessment and Plan Assessment and plan: This is a 51-year-old female with past medical history of DM, noncomplaint with medications, obesity, arthritis, and Rt. Knee surgery admitted for DKA Hospital Course to Date: 04/24/21- Patient remains on DKA protocol. Still very lethargic this am, following simple commands. Rt. knee wound and swelling noted, and nursing staff also reported thick, white vaginal discharge. C/f sepsis, blood culture ordered, this am UA noted. Will start patient on PO difflucan for possible yeast infection, pending culture data. Anion GAP is still 18 this am, will continue DKA protocol for now. Continue to monitor electrolytes, serial BMP ordered. 04/25/21- Patient appears to be in distress this am, now on 3L NC. Lactic acidosis worsen overnight, X1L LR bolus adminstered. Ordered placed for stat ABGs. Blood culture growing GPC 3/4 bottles, patient remains afebrile with no leukocytosis. IV abx was escalated, ID consulted. Ortho consult is still pending, order placed for XR of the Rt. knee. Given patient worsen condition and high anio, gap, will continue insulin gtt for now. Low K and mg was repleted. Continue serial BMP,mg, and phosp 04/26/21- Patient appears more alert and awake this am, talkative, and following commands. Remains on DKA protocol, gap is closedX2, will transition patient to SSI and basal insulin and initiate enteral nutrition. Patient remains afebrile overnight, continue IV Abx per ID. 04/27/21- TASHA overnight. Patient mentation continue to improve. Worsening hyperglycemia, patient is tolerating TF. 70/30 added BID and SSI was adjusted to high dose Q4hrs. D/W [facility] patient is stable for transfer to [facility] Assessment and Plan #Acute Metabolic Encephalopathy - Probably related to metabolic acidosis - Mentation improved this am, AAO and talkative - Continue to reiorient patient as needed - Avoid benzodiazepine to reduce the possibility of delirium - PRN analgesia for CPOT greater than 3 - Maintenance of sleep-wake cycle #Tachycardia- improved - ST on the monitor, HR in the low 100s - Probably reactive to current condition - Hemodynamic stable - Maintain adequate perfusion - Continue blood pressure monitor per protocol - Maintain MAP above 65 #GI: TF - Patient was transitioned to SubQ insulin - Enteral nutrition was initiated - Nutrition consulted - Continuos D/Galindo - PPI- Pepcid - Continue BR #Hypokalemia- improved #Hypophosphetemia-improved - Probably due to DKA - Continue IVF - Monitor and replace electrolytes as needed - Continue to trend BMP, mg, and phosp - Strict intake and output - Avoid nephrotoxic medications; Renally dose medications #Sepsis #Vaginal Yeast Infection #?? Right Septic Knee #Lactic Acidosis- improved - Thick, white vaginal discharge - Rt. Knee wound and swelling, H/o of Knee surgery - XR of Rt. Knee noted - Patient remains afebrile, wbcs wnl - UA no indication for infection - Blood Culture +GPC 3/4 bottles - Lactic as high as 3.10--> 1.70 - Procal 21.10 - ID on consult - ID recommended draining Rt. knee effusion - Ortho is on the case - Continue IV antibiotoc per ID - F/U on culture data - Daily CBC monitor #Uncontrolled DM #Diabetic Ketoacidosis (DKA)- resolved - Presented with elevated BG and acidosis - UA + glucose, protein, and ketones - A1c 18.3 - Was on DKA protocol - Patient transitioned to SSI insulin - 70/30 added due to worsen hyperglycemia - High dose SSI also adjusted to Q4hrs - Avoid Hypoglycemia #DVT Prophylaxis - AC- Lovenox added - SCD to bilateral lower extremities while in bed The high probability of a clinically significant, sudden or life threatening deterioration of the [Neuro, ID, Endo] system(s) required my full and direct attention, intervention and personal management. The aggregate critical care time was [60] minutes. This time is in addition to time spent performing reported procedures but includes the following: [x] Data Review and interpretation [x] Patient assessment and monitoring of vital signs [x] Documentation [x] Medication orders and management Disposition Plan: ICU Total Time Spent with Patient (Minutes): 60 History Interval history: Patient seen and examined at the bedside. Remains alert and talkative this am, stated she feels weak. Remains 50% Venti mask, SPO2 at 100%. TASHA overnight. Hospitalist Physical - Constitutional Vitals: Temp Pulse Resp BP Pulse Ox 98.8 F 108 H 33 H 96/69 98 04/27/21 12:00 04/27/21 13:00 04/27/21 13:00 04/27/21 13:00 04/27/21 13:00 General appearance: Present: no acute distress, obese, other - EENT Eyes: Present: PERRL ENT: hearing intact, clear oral mucosa - Neck Neck: Present: normal ROM - Respiratory Respiratory effort: normal Respiratory: bilateral: rhonchi - Cardiovascular Rhythm: regular Heart Sounds: Present: S1 & S2 - Extremities Extremities: no ischemia, pulses intact, pulses symmetrical Extremity abnormal: edema - Peripheral Assessment Generalized Edema Type: Non-pitting Edema Degree: 2+ Capillary Refill: < 3 seconds Skin Temperature: Warm Peripheral Pulses: within normal limits - Abdominal General gastrointestinal: soft, non-tender, normal bowel sounds - Integumentary Integumentary: Present: warm, dry - Psychiatric Psychiatric: appropriate mood/affect, cooperative - Neurologic Neurologic: moves all extremities - Allied Health Allied health notes reviewed: nursing HEART Score - HEART Score Troponin: Troponin T < 0.010 ng/mL (0.00-0.029) 04/23/21 10:33 Results - Labs CBC & Chem 7: 04/27/21 04:03 04/27/21 04:03 Labs: Laboratory Last Values WBC 6.3 K/mm3 (4.5-11.0) 04/27/21 04:03 RBC 3.20 M/mm3 (3.65-5.03) L 04/27/21 04:03 Hgb 8.1 gm/dl (10.1-14.3) L 04/27/21 04:03 Hct 25.1 % (30.3-42.9) L 04/27/21 04:03 MCV 78 fl (79-97) L 04/27/21 04:03 MCH 25 pg (28-32) L 04/27/21 04:03 MCHC 32 % (30-34) 04/27/21 04:03 RDW 15.1 % (13.2-15.2) 04/27/21 04:03 Plt Count 170 K/mm3 (140-440) 04/27/21 04:03 Add Manual Diff Complete 04/25/21 08:10 Total Counted 100 04/25/21 08:10 Seg Neutrophils % Lab Assistant 04/23/21 10:33 Seg Neuts % (Manual) 33.0 % (40.0-70.0) L 04/25/21 08:10 Band Neutrophils % 23.0 % 04/25/21 08:10 Lymphocytes % (Manual) 19.0 % (13.4-35.0) 04/25/21 08:10 Reactive Lymphs % (Man) 1.0 % 04/25/21 08:10 Monocytes % (Manual) 1.0 % (0.0-7.3) 04/25/21 08:10 Eosinophils % (Manual) 1.0 % (0.0-4.3) 04/25/21 08:10 Metamyelocytes % 3.0 % 04/23/21 10:33 Myelocytes % 22.0 % 04/25/21 08:10 Nucleated RBC % Not Reportable 04/25/21 08:10 Seg Neutrophils # Man 1.9 K/mm3 (1.8-7.7) 04/25/21 08:10 Band Neutrophils # 1.3 K/mm3 04/25/21 08:10 Lymphocytes # (Manual) 1.1 K/mm3 (1.2-5.4) L 04/25/21 08:10 Abs React Lymphs (Man) 0.1 K/mm3 04/25/21 08:10 Monocytes # (Manual) 0.1 K/mm3 (0.0-0.8) 04/25/21 08:10 Eosinophils # (Manual) 0.1 K/mm3 (0.0-0.4) 04/25/21 08:10 Basophils # (Manual) 0.0 K/mm3 (0.0-0.1) 04/25/21 08:10 Metamyelocytes # 0.0 K/mm3 04/25/21 08:10 Myelocytes # 1.3 K/mm3 04/25/21 08:10 Promyelocytes # 0.0 K/mm3 04/25/21 08:10 Blast Cells # 0.0 K/mm3 04/25/21 08:10 WBC Morphology Not Reportable 04/25/21 08:10 Hypersegmented Neuts Not Reportable 04/25/21 08:10 Hyposegmented Neuts Not Reportable 04/25/21 08:10 Hypogranular Neuts Not Reportable 04/25/21 08:10 Smudge Cells Not Reportable 04/25/21 08:10 Toxic Granulation Not Reportable 04/25/21 08:10 Toxic Vacuolation Not Reportable 04/25/21 08:10 Dohle Bodies Not Reportable 04/25/21 08:10 Pelger-Huet Anomaly Not Reportable 04/25/21 08:10 Thierry Rods Not Reportable 04/25/21 08:10 Platelet Estimate Consistent w auto 04/25/21 08:10 Clumped Platelets Not Reportable 04/25/21 08:10 Plt Clumps, EDTA Not Reportable 04/25/21 08:10 Large Platelets Not Reportable 04/25/21 08:10 Giant Platelets Not Reportable 04/25/21 08:10 Platelet Satelliting Not Reportable 04/25/21 08:10 Plt Morphology Comment Not Reportable 04/25/21 08:10 RBC Morphology Not Reportable 04/25/21 08:10 Dimorphic RBCs Not Reportable 04/25/21 08:10 Polychromasia Not Reportable 04/25/21 08:10 Hypochromasia 1+ 04/25/21 08:10 Poikilocytosis Not Reportable 04/25/21 08:10 Anisocytosis Not Reportable 04/25/21 08:10 Microcytosis Not Reportable 04/25/21 08:10 Macrocytosis Not Reportable 04/25/21 08:10 Spherocytes Not Reportable 04/25/21 08:10 Pappenheimer Bodies Not Reportable 04/25/21 08:10 Sickle Cells Not Reportable 04/25/21 08:10 Target Cells Not Reportable 04/25/21 08:10 Tear Drop Cells Not Reportable 04/25/21 08:10 Ovalocytes Not Reportable 04/25/21 08:10 Helmet Cells Not Reportable 04/25/21 08:10 [place]-Swink Bodies Not Reportable 04/25/21 08:10 Chamisal Rings Not Reportable 04/25/21 08:10 [place] Cells Not Reportable 04/25/21 08:10 Bite Cells Not Reportable 04/25/21 08:10 Crenated Cell Not Reportable 04/25/21 08:10 Elliptocytes Not Reportable 04/25/21 08:10 Acanthocytes (Spur) Not Reportable 04/25/21 08:10 Rouleaux Not Reportable 04/25/21 08:10 Hemoglobin C Crystals Not Reportable 04/25/21 08:10 Schistocytes Not Reportable 04/25/21 08:10 Malaria parasites Not Reportable 04/25/21 08:10 Juan Bodies Not Reportable 04/25/21 08:10 Hem Pathologist Commnt No 04/25/21 08:10 ABG pH 7.426 pH Units (7.350-7.450) 04/25/21 11:20 ABG pCO2 25.3 mm Hg 04/25/21 11:20 ABG pO2 73.2 mm Hg (80.0-90.0) L 04/25/21 11:20 ABG HCO3 16.2 mmol/L (20.0-26.0) L 04/25/21 11:20 ABG O2 Saturation 96.9 % (95.0-99.0) 04/25/21 11:20 ABG O2 Content 11.6 (0.0-44) 04/25/21 11:20 ABG Base Excess -7.1 mmol/L (-2.0-3.0) L 04/25/21 11:20 ABG Hemoglobin 8.7 gm/dl (12.0-16.0) L 04/25/21 11:20 ABG Carboxyhemoglobin 1.6 % (0.0-5.0) 04/25/21 11:20 ABG Methemoglobin 0.6 % (0.0-1.5) 04/25/21 11:20 VBG pH 7.180 (7.320-7.420) L* 04/23/21 10:33 Oxyhemoglobin 94.8 % (95.0-99.0) L 04/25/21 11:20 FiO2 28 % 04/25/21 11:20 Sodium 139 mmol/L (137-145) 04/27/21 04:03 Potassium 4.4 mmol/L (3.6-5.0) 04/27/21 04:03 Chloride 112.4 mmol/L (98-107) H 04/27/21 04:03 Carbon Dioxide 12 mmol/L (22-30) L 04/27/21 04:03 Anion Gap 19 mmol/L 04/27/21 04:03 BUN 30 mg/dL (7-17) H 04/27/21 04:03 Creatinine 0.9 mg/dL (0.6-1.2) 04/27/21 04:03 Estimated GFR > 60 ml/min 04/27/21 04:03 BUN/Creatinine Ratio 33 % 04/27/21 04:03 Glucose 330 mg/dL (65-100) H 04/27/21 04:03 POC Glucose 335 mg/dL (70-105) H 04/27/21 09:51 Hemoglobin A1c 18.3 % (4-6) H 04/24/21 04:16 Lactic Acid 1.70 mmol/L (0.7-2.0) 04/26/21 05:02 Uric Acid 7.5 mg/dL (3.5-7.6) 04/24/21 12:14 Calcium 8.7 mg/dL (8.4-10.2) 04/27/21 04:03 Phosphorus 3.50 mg/dL (2.5-4.5) 04/27/21 04:03 Magnesium 2.30 mg/dL (1.7-2.3) 04/27/21 04:03 Total Bilirubin 0.60 mg/dL (0.1-1.2) 04/23/21 10:33 AST 10 units/L (5-40) 04/23/21 10:33 ALT 9 units/L (7-56) 04/23/21 10:33 Alkaline Phosphatase 130 units/L (35-129) H 04/23/21 10:33 Ammonia 37.0 umol/L (25-60) 04/23/21 10:33 Total Creatine Kinase 83 units/L (30-135) 04/23/21 10:33 Troponin T < 0.010 ng/mL (0.00-0.029) 04/23/21 10:33 C-Reactive Protein 24.30 mg/dL (0.00-1.30) H 04/24/21 18:24 Total Protein 8.2 g/dL (6.3-8.2) 04/23/21 10:33 Albumin 2.9 g/dL (3.9-5) L 04/23/21 10:33 Albumin/Globulin Ratio 0.5 % 04/23/21 10:33 Procalcitonin 21.10 ng/mL (<0.15) 04/24/21 12:14 TSH 1.400 mlU/mL (0.270-4.200) 04/23/21 10:33 Urine Color Yellow (Yellow) 04/24/21 08:40 Urine Turbidity Clear (Clear) 04/24/21 08:40 Urine pH 6.0 (5.0-7.0) 04/24/21 08:40 Ur Specific Loda 1.022 (1.003-1.030) 04/24/21 08:40 Urine Protein 100 mg/dl mg/dL (Negative) 04/24/21 08:40 Urine Glucose (UA) >=500 mg/dL (Negative) 04/24/21 08:40 Urine Ketones 20 mg/dL (Negative) 04/24/21 08:40 Urine Blood Sm (Negative) 04/24/21 08:40 Urine Nitrite Neg (Negative) 04/24/21 08:40 Urine Bilirubin Neg (Negative) 04/24/21 08:40 Urine Urobilinogen 2.0 mg/dL (<2.0) 04/24/21 08:40 Ur Leukocyte Esterase Neg (Negative) 04/24/21 08:40 Urine WBC (Auto) < 1.0 /HPF (0.0-6.0) 04/24/21 08:40 Urine RBC (Auto) 1.0 /HPF (0.0-6.0) 04/24/21 08:40 U Epithel Cells (Auto) < 1.0 /HPF (0-13.0) 04/24/21 08:40 Vancomycin Trough 38.2 ug/mL (5.0-20.0) H 04/26/21 19:27 Coronavirus (PCR) Negative (Negative) 04/25/21 Unknown Microbiology: Microbiology 04/24/21 12:34 Peripheral/Venous Blood Culture - Final Beta Hemolytic Strep Group B 04/24/21 12:14 Peripheral/Venous Blood Culture - Final Beta Hemolytic Strep Group B 04/26/21 09:04 Peripheral/Venous Blood Culture - Preliminary NO GROWTH AFTER 24 HOURS 04/26/21 05:02 Peripheral/Venous Blood Culture - Preliminary NO GROWTH AFTER 24 HOURS Sanchez/IV: Voiding Method External Female Catheter Active Medications - Current Medications Current Medications: Generic Name Dose Route Start Last Admin Trade Name Freq PRN Reason Stop Dose Admin Acetaminophen 650 mg 04/23/21 11:54 Acetaminophen 325 Mg Tab PO Q6H PRN Pain MILD(1-3)/Fever >100.5/SMITH Lipase/Protease/Amylase 1 each 04/26/21 11:00 Lipase 10,500/Protease 25,000/Amylase 43,750 (Units) Dr Rodriguez FEEDTUBE PRN PRN For Clogged Feeding Tube Dextrose 50 ml 04/26/21 14:00 Dextrose 50% In Water (25gm) 50 Ml Syringe IV Q30MIN PRN Hypoglycemia Protocol Enoxaparin Sodium 40 mg 04/24/21 22:00 04/27/21 10:01 Enoxaparin 40 Mg/0.4 Ml Inj SUB-Q 40 mg BID AMIRA Administration Protocol Famotidine 20 mg 04/25/21 10:00 04/27/21 10:01 Famotidine 20 Mg/2 Ml Inj IV 20 mg QDAY AMIRA Administration Hydromorphone HCl 0.5 mg 04/23/21 11:54 04/25/21 19:19 Hydromorphone 1 Mg/1 Ml Inj IV 0.5 mg Q23H PRN Administration Pain , Severe (7-10) Ceftriaxone Sodium 2 gm in 100 mls @ 200 mls/hr 04/25/21 14:00 04/26/21 14:16 Rocephin/Ns 2 Gm/100 Ml IV 05/10/21 14:29 200 mls/hr Q24H AMIRA Administration Protocol Insulin Human Isoph/Insulin Regular 40 unit 04/27/21 17:00 Insulin Nph/Regular 70/30 Inj SUB-Q BIDDIAB AMIRA Insulin Human Lispro 0 unit 04/27/21 10:00 04/27/21 11:14 Insulin Lispro 100 Unit/Ml SUB-Q 6 unit Q4HR AMIRA Administration Protocol Oxycodone/Acetaminophen 1 tab 04/23/21 11:54 Oxycodone /Acetaminophen 5-325mg Tab PO Q16H PRN Pain, Moderate (4-6) Senna 17.2 mg 04/25/21 22:00 04/26/21 22:42 Sennosides 8.6 Mg Tab PO 17.2 mg QHS AMIRA Administration Simple Syrup 15 ml 04/26/21 11:00 Simple Syrup 15 Ml FEEDTUBE PRN PRN Hypoglycemia Simple Syrup 30 ml 04/26/21 11:00 Simple Syrup 15 Ml FEEDTUBE PRN PRN Hypoglycemia Sodium Bicarbonate 325 mg 04/26/21 09:00 Sodium Bicarbonate 325 Mg Tab FEEDTUBE PRN PRN For Clogged Feeding Tube Sodium Bicarbonate 325 mg 04/26/21 11:00 Sodium Bicarbonate 325 Mg Tab FEEDTUBE PRN PRN For Clogged Feeding Tube Sodium Chloride 10 ml 04/23/21 22:00 04/27/21 10:02 Sodium Chloride 0.9% 10 Ml Flush Syringe IV 10 ml BID AMIRA Administration Sodium Chloride 10 ml 04/23/21 11:54 04/24/21 11:15 Sodium Chloride 0.9% 10 Ml Flush Syringe IV 10 ml PRN PRN Administration LINE FLUSH Nutrition/Malnutrition Assess - Dietary Evaluation Nutrition/Malnutrition Findings: Nutrition Notes Start: 04/26/21 09:53 Freq: Status: Active Protocol: Document 04/27/21 10:44 HOANG (Rec: 04/27/21 10:44 HOANG [id number]) Nutrition Notes Initial or Follow up Brief Note Subjective/Other Information Schedule F/U for new TF. Nutrition Intervention Follow-Up By: 04/29/21 Additional Comments F/U: new TF <ARVIN GARCIA - Last Filed: 04/27/21 19:25> History Interval history: I seen and examined the patient at the bedside this morning in ICU during morning rounds Patient's chart and medications reviewed, consultants evaluation recommendations noted and appreciated I have reviewed and agree with the nurse practitioners evaluation, management and below documentation , with few additions We will closely monitor the patient and adjust the management as needed Plan of care reviewed with the patient's nurse Hospitalist Physical - Constitutional Vitals: Temp Pulse Resp BP Pulse Ox 98.7 F 96 H 33 H 128/83 98 04/27/21 16:00 04/27/21 18:00 04/27/21 18:00 04/27/21 18:00 04/27/21 18:00 HEART Score - HEART Score Troponin: Troponin T < 0.010 ng/mL (0.00-0.029) 04/23/21 10:33 Results - Labs CBC & Chem 7: 04/27/21 04:03 04/27/21 04:03 Labs: Laboratory Last Values WBC 6.3 K/mm3 (4.5-11.0) 04/27/21 04:03 RBC 3.20 M/mm3 (3.65-5.03) L 04/27/21 04:03 Hgb 8.1 gm/dl (10.1-14.3) L 04/27/21 04:03 Hct 25.1 % (30.3-42.9) L 04/27/21 04:03 MCV 78 fl (79-97) L 04/27/21 04:03 MCH 25 pg (28-32) L 04/27/21 04:03 MCHC 32 % (30-34) 04/27/21 04:03 RDW 15.1 % (13.2-15.2) 04/27/21 04:03 Plt Count 170 K/mm3 (140-440) 04/27/21 04:03 Add Manual Diff Complete 04/25/21 08:10 Total Counted 100 04/25/21 08:10 Seg Neutrophils % Lab Assistant 04/23/21 10:33 Seg Neuts % (Manual) 33.0 % (40.0-70.0) L 04/25/21 08:10 Band Neutrophils % 23.0 % 04/25/21 08:10 Lymphocytes % (Manual) 19.0 % (13.4-35.0) 04/25/21 08:10 Reactive Lymphs % (Man) 1.0 % 04/25/21 08:10 Monocytes % (Manual) 1.0 % (0.0-7.3) 04/25/21 08:10 Eosinophils % (Manual) 1.0 % (0.0-4.3) 04/25/21 08:10 Metamyelocytes % 3.0 % 04/23/21 10:33 Myelocytes % 22.0 % 04/25/21 08:10 Nucleated RBC % Not Reportable 04/25/21 08:10 Seg Neutrophils # Man 1.9 K/mm3 (1.8-7.7) 04/25/21 08:10 Band Neutrophils # 1.3 K/mm3 04/25/21 08:10 Lymphocytes # (Manual) 1.1 K/mm3 (1.2-5.4) L 04/25/21 08:10 Abs React Lymphs (Man) 0.1 K/mm3 04/25/21 08:10 Monocytes # (Manual) 0.1 K/mm3 (0.0-0.8) 04/25/21 08:10 Eosinophils # (Manual) 0.1 K/mm3 (0.0-0.4) 04/25/21 08:10 Basophils # (Manual) 0.0 K/mm3 (0.0-0.1) 04/25/21 08:10 Metamyelocytes # 0.0 K/mm3 04/25/21 08:10 Myelocytes # 1.3 K/mm3 04/25/21 08:10 Promyelocytes # 0.0 K/mm3 04/25/21 08:10 Blast Cells # 0.0 K/mm3 04/25/21 08:10 WBC Morphology Not Reportable 04/25/21 08:10 Hypersegmented Neuts Not Reportable 04/25/21 08:10 Hyposegmented Neuts Not Reportable 04/25/21 08:10 Hypogranular Neuts Not Reportable 04/25/21 08:10 Smudge Cells Not Reportable 04/25/21 08:10 Toxic Granulation Not Reportable 04/25/21 08:10 Toxic Vacuolation Not Reportable 04/25/21 08:10 Dohle Bodies Not Reportable 04/25/21 08:10 Pelger-Huet Anomaly Not Reportable 04/25/21 08:10 Thierry Rods Not Reportable 04/25/21 08:10 Platelet Estimate Consistent w auto 04/25/21 08:10 Clumped Platelets Not Reportable 04/25/21 08:10 Plt Clumps, EDTA Not Reportable 04/25/21 08:10 Large Platelets Not Reportable 04/25/21 08:10 Giant Platelets Not Reportable 04/25/21 08:10 Platelet Satelliting Not Reportable 04/25/21 08:10 Plt Morphology Comment Not Reportable 04/25/21 08:10 RBC Morphology Not Reportable 04/25/21 08:10 Dimorphic RBCs Not Reportable 04/25/21 08:10 Polychromasia Not Reportable 04/25/21 08:10 Hypochromasia 1+ 04/25/21 08:10 Poikilocytosis Not Reportable 04/25/21 08:10 Anisocytosis Not Reportable 04/25/21 08:10 Microcytosis Not Reportable 04/25/21 08:10 Macrocytosis Not Reportable 04/25/21 08:10 Spherocytes Not Reportable 04/25/21 08:10 Pappenheimer Bodies Not Reportable 04/25/21 08:10 Sickle Cells Not Reportable 04/25/21 08:10 Target Cells Not Reportable 04/25/21 08:10 Tear Drop Cells Not Reportable 04/25/21 08:10 Ovalocytes Not Reportable 04/25/21 08:10 Helmet Cells Not Reportable 04/25/21 08:10 [place]ieta-Swink Bodies Not Reportable 04/25/21 08:10 Chamisal Rings Not Reportable 04/25/21 08:10 Kamari Cells Not Reportable 04/25/21 08:10 Bite Cells Not Reportable 04/25/21 08:10 Crenated Cell Not Reportable 04/25/21 08:10 Elliptocytes Not Reportable 04/25/21 08:10 Acanthocytes (Spur) Not Reportable 04/25/21 08:10 Rouleaux Not Reportable 04/25/21 08:10 Hemoglobin C Crystals Not Reportable 04/25/21 08:10 Schistocytes Not Reportable 04/25/21 08:10 Malaria parasites Not Reportable 04/25/21 08:10 Juan Bodies Not Reportable 04/25/21 08:10 Hem Pathologist Commnt No 04/25/21 08:10 ABG pH 7.426 pH Units (7.350-7.450) 04/25/21 11:20 ABG pCO2 25.3 mm Hg 04/25/21 11:20 ABG pO2 73.2 mm Hg (80.0-90.0) L 04/25/21 11:20 ABG HCO3 16.2 mmol/L (20.0-26.0) L 04/25/21 11:20 ABG O2 Saturation 96.9 % (95.0-99.0) 04/25/21 11:20 ABG O2 Content 11.6 (0.0-44) 04/25/21 11:20 ABG Base Excess -7.1 mmol/L (-2.0-3.0) L 04/25/21 11:20 ABG Hemoglobin 8.7 gm/dl (12.0-16.0) L 04/25/21 11:20 ABG Carboxyhemoglobin 1.6 % (0.0-5.0) 04/25/21 11:20 ABG Methemoglobin 0.6 % (0.0-1.5) 04/25/21 11:20 VBG pH 7.180 (7.320-7.420) L* 04/23/21 10:33 Oxyhemoglobin 94.8 % (95.0-99.0) L 04/25/21 11:20 FiO2 28 % 04/25/21 11:20 Sodium 139 mmol/L (137-145) 04/27/21 04:03 Potassium 4.4 mmol/L (3.6-5.0) 04/27/21 04:03 Chloride 112.4 mmol/L (98-107) H 04/27/21 04:03 Carbon Dioxide 12 mmol/L (22-30) L 04/27/21 04:03 Anion Gap 19 mmol/L 04/27/21 04:03 BUN 30 mg/dL (7-17) H 04/27/21 04:03 Creatinine 0.9 mg/dL (0.6-1.2) 04/27/21 04:03 Estimated GFR > 60 ml/min 04/27/21 04:03 BUN/Creatinine Ratio 33 % 04/27/21 04:03 Glucose 330 mg/dL (65-100) H 04/27/21 04:03 POC Glucose 177 mg/dL (70-105) H 04/27/21 18:10 Hemoglobin A1c 18.3 % (4-6) H 04/24/21 04:16 Lactic Acid 1.70 mmol/L (0.7-2.0) 04/26/21 05:02 Uric Acid 7.5 mg/dL (3.5-7.6) 04/24/21 12:14 Calcium 8.7 mg/dL (8.4-10.2) 04/27/21 04:03 Phosphorus 3.50 mg/dL (2.5-4.5) 04/27/21 04:03 Magnesium 2.30 mg/dL (1.7-2.3) 04/27/21 04:03 Total Bilirubin 0.60 mg/dL (0.1-1.2) 04/23/21 10:33 AST 10 units/L (5-40) 04/23/21 10:33 ALT 9 units/L (7-56) 04/23/21 10:33 Alkaline Phosphatase 130 units/L (35-129) H 04/23/21 10:33 Ammonia 37.0 umol/L (25-60) 04/23/21 10:33 Total Creatine Kinase 83 units/L (30-135) 04/23/21 10:33 Troponin T < 0.010 ng/mL (0.00-0.029) 04/23/21 10:33 C-Reactive Protein 24.30 mg/dL (0.00-1.30) H 04/24/21 18:24 Total Protein 8.2 g/dL (6.3-8.2) 04/23/21 10:33 Albumin 2.9 g/dL (3.9-5) L 04/23/21 10:33 Albumin/Globulin Ratio 0.5 % 04/23/21 10:33 Procalcitonin 21.10 ng/mL (<0.15) 04/24/21 12:14 TSH 1.400 mlU/mL (0.270-4.200) 04/23/21 10:33 Urine Color Katie (Yellow) 04/27/21 16:16 Urine Turbidity Cloudy (Clear) 04/27/21 16:16 Urine pH 5.0 (5.0-7.0) 04/27/21 16:16 Ur Specific Loda 1.014 (1.003-1.030) 04/27/21 16:16 Urine Protein <15 mg/dl mg/dL (Negative) 04/27/21 16:16 Urine Glucose (UA) >=500 mg/dL (Negative) 04/27/21 16:16 Urine Ketones Neg mg/dL (Negative) 04/27/21 16:16 Urine Blood Neg (Negative) 04/27/21 16:16 Urine Nitrite Neg (Negative) 04/27/21 16:16 Urine Bilirubin Neg (Negative) 04/27/21 16:16 Urine Urobilinogen 2.0 mg/dL (<2.0) 04/27/21 16:16 Ur Leukocyte Esterase Neg (Negative) 04/27/21 16:16 Urine WBC (Auto) 1.0 /HPF (0.0-6.0) 04/27/21 16:16 Urine RBC (Auto) 1.0 /HPF (0.0-6.0) 04/27/21 16:16 U Epithel Cells (Auto) < 1.0 /HPF (0-13.0) 04/24/21 08:40 Urine Bacteria (Auto) 1+ /HPF (Negative) 04/27/21 16:16 Amorphous Crystals Few 04/27/21 16:16 Urine Yeast (Budding) 3+ /HPF 04/27/21 16:16 Vancomycin Trough 38.2 ug/mL (5.0-20.0) H 04/26/21 19:27 Coronavirus (PCR) Negative (Negative) 04/25/21 Unknown Microbiology: Microbiology 04/24/21 12:34 Peripheral/Venous Blood Culture - Final Beta Hemolytic Strep Group B 04/24/21 12:14 Peripheral/Venous Blood Culture - Final Beta Hemolytic Strep Group B 04/26/21 09:04 Peripheral/Venous Blood Culture - Preliminary NO GROWTH AFTER 24 HOURS 04/26/21 05:02 Peripheral/Venous Blood Culture - Preliminary NO GROWTH AFTER 24 HOURS Sanchez/IV: Voiding Method External Female Catheter Active Medications - Current Medications Current Medications: Generic Name Dose Route Start Last Admin Trade Name Freq PRN Reason Stop Dose Admin Acetaminophen 650 mg 04/23/21 11:54 Acetaminophen 325 Mg Tab PO Q6H PRN Pain MILD(1-3)/Fever >100.5/SMITH Lipase/Protease/Amylase 1 each 04/26/21 11:00 Lipase 10,500/Protease 25,000/Amylase 43,750 (Units) Dr Rodriguez FEEDTUBE PRN PRN For Clogged Feeding Tube Dextrose 50 ml 04/26/21 14:00 Dextrose 50% In Water (25gm) 50 Ml Syringe IV Q30MIN PRN Hypoglycemia Protocol Enoxaparin Sodium 40 mg 04/24/21 22:00 04/27/21 10:01 Enoxaparin 40 Mg/0.4 Ml Inj SUB-Q 40 mg BID AMIRA Administration Protocol Famotidine 20 mg 04/25/21 10:00 04/27/21 10:01 Famotidine 20 Mg/2 Ml Inj IV 20 mg QDAY AMIRA Administration Hydromorphone HCl 0.5 mg 04/23/21 11:54 04/27/21 16:29 Hydromorphone 1 Mg/1 Ml Inj IV 0.5 mg Q23H PRN Administration Pain , Severe (7-10) Ceftriaxone Sodium 2 gm in 100 mls @ 200 mls/hr 04/25/21 14:00 04/27/21 13:20 Rocephin/Ns 2 Gm/100 Ml IV 05/10/21 14:29 200 mls/hr Q24H AMIRA Administration Protocol Sodium Bicarbonate 100 meq/ 1,100 mls @ 75 mls/hr 04/27/21 15:00 04/27/21 16:30 Sterile Water IV 04/29/21 05:39 75 mls/hr DIRECT AMIRA Administration Insulin Human Isoph/Insulin Regular 40 unit 04/27/21 17:00 04/27/21 17:25 Insulin Nph/Regular 70/30 Inj SUB-Q 40 unit BIDDIAB AMIRA Administration Insulin Human Lispro 0 unit 04/27/21 10:00 04/27/21 17:27 Insulin Lispro 100 Unit/Ml SUB-Q 3 unit Q4HR AMIRA Administration Protocol Oxycodone/Acetaminophen 1 tab 04/23/21 11:54 Oxycodone /Acetaminophen 5-325mg Tab PO Q16H PRN Pain, Moderate (4-6) Senna 17.2 mg 04/25/21 22:00 04/26/21 22:42 Sennosides 8.6 Mg Tab PO 17.2 mg QHS AMIRA Administration Simple Syrup 15 ml 04/26/21 11:00 Simple Syrup 15 Ml FEEDTUBE PRN PRN Hypoglycemia Simple Syrup 30 ml 04/26/21 11:00 Simple Syrup 15 Ml FEEDTUBE PRN PRN Hypoglycemia Sodium Bicarbonate 325 mg 04/26/21 09:00 Sodium Bicarbonate 325 Mg Tab FEEDTUBE PRN PRN For Clogged Feeding Tube Sodium Bicarbonate 325 mg 04/26/21 11:00 Sodium Bicarbonate 325 Mg Tab FEEDTUBE PRN PRN For Clogged Feeding Tube Sodium Chloride 10 ml 04/23/21 22:00 04/27/21 10:02 Sodium Chloride 0.9% 10 Ml Flush Syringe IV 10 ml BID AMIRA Administration Sodium Chloride 10 ml 04/23/21 11:54 04/24/21 11:15 Sodium Chloride 0.9% 10 Ml Flush Syringe IV 10 ml PRN PRN Administration LINE FLUSH Nutrition/Malnutrition Assess - Dietary Evaluation Nutrition/Malnutrition Findings: Nutrition Notes Start: 04/26/21 09:53 Freq: Status: Active Protocol: Document 04/27/21 10:44 HOANG (Rec: 04/27/21 10:44 HOANG [id number]) Nutrition Notes Initial or Follow up Brief Note Subjective/Other Information Schedule F/U for new TF. Nutrition Intervention Follow-Up By: 04/29/21 Additional Comments F/U: new TF
[2021-04-27] MEDS: cefTRIAXone/NS 2 GM/100 ML 2 GM/100 ML BAG IV SCH (13:20)
[2021-04-27] MEDS: HYDROmorphone 1 MG/1 ML INJ IV PRN (16:29)
[2021-04-27] MEDS: SODIUM BICARBONATE 100 MEQ in WATER FOR INJECTION (PF) 1,000 ML IV SCH (16:30)
[2021-04-27] MEDS: INSULIN NPH/REGULAR 70/30 INJ SUB-Q SCH (17:25)
[2021-04-27 18:39] LABS: Amorphous Crystals,Urine Few; Bacteria,Urine 1+ /HPF (Negative); Bilirubin,Urine NEG (Negative); Blood,Urine NEG (Negative); Color,Urine Amber (Yellow); Protein,Urine <15 mg/dL mg/dL (Negative)
[2021-04-27] MEDS: SENNOSIDES 8.6 MG TAB PO SCH (22:02)
[2021-04-28 05:49] LABS: Hematocrit 27.3 % (30.3-42.9); Hemoglobin 8.9 gm/dl (10.1-14.3); Mean Corpuscular HGB Conc 33 % (30-34); Mean Corpuscular Volume 78 fl (79-97); Platelet Count 152 K/mm3 (140-440); Red Cell Distribution Width 15.1 % (13.2-15.2)
[2021-04-28 06:00] LABS: BUN/Creatinine Ratio 34; Blood Urea Nitrogen 37 mg/dL (7-17); Calcium 8.8 mg/dL (8.4-10.2); Hemolysis Index 22
[2021-04-28] MEDS: INSULIN LISPRO 100 UNIT/ML SUB-Q SCH ×7 (06:22→22:13)
[2021-04-28] MEDS: SODIUM BICARBONATE 100 MEQ in WATER FOR INJECTION (PF) 1,000 ML IV SCH (06:24)
--- NOTE | 2021-04-28 06:36 | Progress Note ---
Assessment and Plan Acute metabolic acidosis Diabetic ketoacidosis Acute toxic metabolic encephalopathy-improving Obesity Osteoarthritis Hypercalcemia Bowel regimen for constipation Continue with NGT feeding Follow up evaluation by MANAGED CARE NURSE- dysphagia screen in the morning Free water flushes, treat hypernatremia Needs half-way antibiotics per ID Titrate supplemental oxygen to keep SpO2 88-90% PT, increase activity as tolerated Mobility, off loading and frequent turning for pressure ulcer prevention Can transfer out of the ICU - continue aspiration precautions (HOB > 40 degrees) - continue accuchecks with glycemic control - target blood glucose 140-180 mg/dL; avoid hypoglycemia - antiinfective's per ID team recommendations (Rocephin) - prn bronchodilators with pulmonary hygiene per RT - avoid nephrotoxins, renally dose all medications - avoid benzodiazepines, reduce the possibility of delirium - prn analgesia per pain score - Maintenance of sleep-wake cycle, avoid delirium - VTE prophylaxis - continue mobility protocols for pressure ulcer prophylaxis - Monitor hemodynamics closely - continue other care per attending / other consultants Subjective Date of service: 04/28/21 Principal diagnosis: HAGMA; DKA; AMS; Obesity; Osteoarthritis; Hypercalcemia Interval history: Patient is seen today for: Acute metabolic acidosis; Diabetic ketoacidosis; Acute toxic metabolic encephalopathy; Obesity; Osteoarthritis; Hypercalcemia Seen and examined at bedside; 24hour events reviewed; nursing and respiratory care staff consulted; no adverse overnight events reported to me; resting peacefully in bed; denies N/V/F/C. Awake and alert, strong cough . On supplemental oxygen via NC, complains of constipation Objective Vital Signs - 12hr 04/27/21 04/27/21 04/27/21 19:00 19:30 19:44 Temperature Pulse Rate 105 H 106 H Pulse Rate [ From Monitor] Respiratory 31 H 27 H Rate Blood Pressure 122/68 119/68 O2 Sat by Pulse 99 99 99 Oximetry 04/27/21 04/27/21 04/27/21 20:00 20:30 21:00 Temperature 97.6 F Pulse Rate 107 H 107 H 111 H Pulse Rate [ 99 H From Monitor] Respiratory 21 32 H 33 H Rate Blood Pressure 112/66 115/64 126/76 O2 Sat by Pulse 96 99 99 Oximetry 04/27/21 04/27/21 04/27/21 21:30 22:00 22:30 Temperature Pulse Rate 106 H 109 H 108 H Pulse Rate [ From Monitor] Respiratory 32 H 29 H 33 H Rate Blood Pressure 126/76 115/72 106/74 O2 Sat by Pulse 99 99 99 Oximetry 04/27/21 04/27/21 04/27/21 23:00 23:06 23:30 Temperature Pulse Rate 106 H 103 H 105 H Pulse Rate [ From Monitor] Respiratory 26 H 30 H 27 H Rate Blood Pressure 109/70 109/70 115/60 O2 Sat by Pulse 99 100 99 Oximetry 04/28/21 04/28/21 04/28/21 00:00 00:30 01:00 Temperature 99.6 F Pulse Rate 103 H 104 H 104 H Pulse Rate [ 105 H From Monitor] Respiratory 28 H 28 H 29 H Rate Blood Pressure 108/58 108/63 108/63 O2 Sat by Pulse 96 99 94 Oximetry 04/28/21 04/28/21 04/28/21 01:30 02:00 02:30 Temperature Pulse Rate 103 H 102 H 99 H Pulse Rate [ From Monitor] Respiratory 31 H 37 H 30 H Rate Blood Pressure 110/69 109/67 111/70 O2 Sat by Pulse 94 94 94 Oximetry 04/28/21 04/28/21 04/28/21 03:00 03:30 04:00 Temperature 98.9 F Pulse Rate 99 H 99 H 101 H Pulse Rate [ 100 H From Monitor] Respiratory 30 H 29 H 27 H Rate Blood Pressure 106/65 111/66 114/75 O2 Sat by Pulse 94 94 94 Oximetry 04/28/21 04/28/21 04/28/21 04:30 05:00 05:30 Temperature Pulse Rate 97 H 111 H 100 H Pulse Rate [ From Monitor] Respiratory 24 28 H 32 H Rate Blood Pressure 106/70 106/70 113/71 O2 Sat by Pulse 95 99 94 Oximetry 04/28/21 06:00 Temperature Pulse Rate 102 H Pulse Rate [ From Monitor] Respiratory 25 H Rate Blood Pressure 121/77 O2 Sat by Pulse 94 Oximetry Constitutional: no acute distress, alert, other (middle aged obese female with normal work of breathing at rest) Eyes: non-icteric ENT: oropharynx moist Neck: supple, no lymphadenopathy, no JVD Effort: normal Ascultation: Bilateral: diminished breath sounds, rhonchi (and referred upper airway sounds) Percussion: Bilateral: not dull Cardiovascular: regular rate and rhythm, other (S1,S2) Gastrointestinal: hypoactive bowel sounds, soft, non-tender, non-distended Integumentary: rash (perineal) Extremities: no cyanosis, no edema, pulses normal, no ischemia or petechiae Neurologic: normal mental status, non-focal exam (grossly), pupils equal and round, CN II-XII normal, motor strength normal and, other Psychiatric: mood appropriate, affect normal CBC and BMP: 04/29/21 04:00 04/29/21 04:00 ABG, PT/INR, D-dimer: ABG ABG pH 7.426 pH Units (7.350-7.450) 04/25/21 11:20 ABG pCO2 25.3 mm Hg 04/25/21 11:20 ABG pO2 73.2 mm Hg (80.0-90.0) L 04/25/21 11:20 ABG O2 Saturation 96.9 % (95.0-99.0) 04/25/21 11:20 Abnormal lab findings: Abnormal Labs 04/23/21 04/23/21 04/23/21 10:33 10:33 10:33 RBC Hgb Hct MCV MCH 26 L Seg Neuts % (Manual) Lymphocytes % (Manual) 7.0 L Nucleated RBC % 2.0 H Lymphocytes # (Manual) 0.5 L ABG pO2 ABG HCO3 ABG Base Excess ABG Hemoglobin VBG pH 7.180 L* Oxyhemoglobin Sodium 122 L Potassium 3.0 L Chloride 84.8 L Carbon Dioxide 6 L* BUN 49 H Creatinine 1.4 H Glucose 775 H* POC Glucose Hemoglobin A1c Lactic Acid Calcium 12.2 H* Phosphorus Magnesium Alkaline Phosphatase 130 H C-Reactive Protein Albumin 2.9 L Vancomycin Trough 04/23/21 04/23/21 04/23/21 10:40 12:44 14:01 RBC Hgb Hct MCV MCH Seg Neuts % (Manual) Lymphocytes % (Manual) Nucleated RBC % Lymphocytes # (Manual) ABG pO2 ABG HCO3 ABG Base Excess ABG Hemoglobin VBG pH Oxyhemoglobin Sodium Potassium Chloride Carbon Dioxide BUN Creatinine Glucose POC Glucose > 600 H 550 H Hemoglobin A1c Lactic Acid Calcium Phosphorus 1.50 L Magnesium Alkaline Phosphatase C-Reactive Protein Albumin Vancomycin Trough 04/23/21 04/23/21 04/23/21 14:01 14:56 15:43 RBC Hgb Hct MCV MCH Seg Neuts % (Manual) Lymphocytes % (Manual) Nucleated RBC % Lymphocytes # (Manual) ABG pO2 ABG HCO3 ABG Base Excess ABG Hemoglobin VBG pH Oxyhemoglobin Sodium 125 L 131 L Potassium 3.0 L 2.9 L* Chloride 89.2 L Carbon Dioxide 6 L* 8 L* BUN 45 H 39 H Creatinine 1.3 H Glucose 594 H* 434 H POC Glucose 425 H Hemoglobin A1c Lactic Acid Calcium 10.9 H 10.3 H Phosphorus Magnesium Alkaline Phosphatase C-Reactive Protein Albumin Vancomycin Trough 04/23/21 04/23/21 04/23/21 15:48 17:21 18:07 RBC Hgb Hct MCV MCH Seg Neuts % (Manual) Lymphocytes % (Manual) Nucleated RBC % Lymphocytes # (Manual) ABG pO2 ABG HCO3 ABG Base Excess ABG Hemoglobin VBG pH Oxyhemoglobin Sodium Potassium Chloride Carbon Dioxide BUN Creatinine Glucose POC Glucose 410 H 407 H 428 H Hemoglobin A1c Lactic Acid Calcium Phosphorus Magnesium Alkaline Phosphatase C-Reactive Protein Albumin Vancomycin Trough 04/23/21 04/23/21 04/23/21 19:13 19:54 19:54 RBC Hgb Hct MCV MCH Seg Neuts % (Manual) Lymphocytes % (Manual) Nucleated RBC % Lymphocytes # (Manual) ABG pO2 ABG HCO3 ABG Base Excess ABG Hemoglobin VBG pH Oxyhemoglobin Sodium 131 L Potassium 3.1 L Chloride 95.9 L Carbon Dioxide 7 L* BUN 39 H Creatinine Glucose 391 H POC Glucose 350 H Hemoglobin A1c Lactic Acid Calcium 11.2 H Phosphorus 1.10 L D Magnesium Alkaline Phosphatase C-Reactive Protein Albumin Vancomycin Trough 04/23/21 04/23/21 04/23/21 20:12 20:59 22:05 RBC Hgb Hct MCV MCH Seg Neuts % (Manual) Lymphocytes % (Manual) Nucleated RBC % Lymphocytes # (Manual) ABG pO2 ABG HCO3 ABG Base Excess ABG Hemoglobin VBG pH Oxyhemoglobin Sodium Potassium Chloride Carbon Dioxide BUN Creatinine Glucose POC Glucose 365 H 286 H 257 H Hemoglobin A1c Lactic Acid Calcium Phosphorus Magnesium Alkaline Phosphatase C-Reactive Protein Albumin Vancomycin Trough 04/23/21 04/23/21 04/23/21 22:23 22:59 23:57 RBC Hgb Hct MCV MCH Seg Neuts % (Manual) Lymphocytes % (Manual) Nucleated RBC % Lymphocytes # (Manual) ABG pO2 ABG HCO3 ABG Base Excess ABG Hemoglobin VBG pH Oxyhemoglobin Sodium 135 L Potassium 3.2 L Chloride Carbon Dioxide 10 L BUN 35 H Creatinine Glucose 300 H POC Glucose 238 H 223 H Hemoglobin A1c Lactic Acid Calcium 11.6 H Phosphorus Magnesium Alkaline Phosphatase C-Reactive Protein Albumin Vancomycin Trough 04/24/21 04/24/21 04/24/21 00:10 00:56 01:58 RBC Hgb Hct MCV MCH Seg Neuts % (Manual) Lymphocytes % (Manual) Nucleated RBC % Lymphocytes # (Manual) ABG pO2 ABG HCO3 ABG Base Excess ABG Hemoglobin VBG pH Oxyhemoglobin Sodium Potassium 3.2 L Chloride Carbon Dioxide 13 L BUN 33 H Creatinine Glucose 267 H POC Glucose 254 H 264 H Hemoglobin A1c Lactic Acid Calcium 11.2 H Phosphorus 1.20 L Magnesium Alkaline Phosphatase C-Reactive Protein Albumin Vancomycin Trough 04/24/21 04/24/21 04/24/21 02:58 03:57 04:16 RBC Hgb Hct MCV MCH Seg Neuts % (Manual) Lymphocytes % (Manual) Nucleated RBC % Lymphocytes # (Manual) ABG pO2 ABG HCO3 ABG Base Excess ABG Hemoglobin VBG pH Oxyhemoglobin Sodium Potassium Chloride 108.0 H Carbon Dioxide 13 L BUN 31 H Creatinine Glucose 243 H POC Glucose 251 H 200 H Hemoglobin A1c Lactic Acid Calcium 10.9 H Phosphorus 1.80 L D Magnesium Alkaline Phosphatase C-Reactive Protein Albumin Vancomycin Trough 04/24/21 04/24/21 04/24/21 04:16 04:16 04:59 RBC Hgb Hct MCV MCH 26 L Seg Neuts % (Manual) Lymphocytes % (Manual) Nucleated RBC % Lymphocytes # (Manual) ABG pO2 ABG HCO3 ABG Base Excess ABG Hemoglobin VBG pH Oxyhemoglobin Sodium Potassium Chloride Carbon Dioxide BUN Creatinine Glucose POC Glucose 208 H Hemoglobin A1c 18.3 H Lactic Acid Calcium Phosphorus Magnesium Alkaline Phosphatase C-Reactive Protein Albumin Vancomycin Trough 04/24/21 04/24/21 04/24/21 05:53 06:51 07:58 RBC Hgb Hct MCV MCH Seg Neuts % (Manual) Lymphocytes % (Manual) Nucleated RBC % Lymphocytes # (Manual) ABG pO2 ABG HCO3 ABG Base Excess ABG Hemoglobin VBG pH Oxyhemoglobin Sodium Potassium Chloride Carbon Dioxide BUN Creatinine Glucose POC Glucose 213 H 161 H 149 H Hemoglobin A1c Lactic Acid Calcium Phosphorus Magnesium Alkaline Phosphatase C-Reactive Protein Albumin Vancomycin Trough 04/24/21 04/24/21 04/24/21 09:21 10:06 11:03 RBC Hgb Hct MCV MCH Seg Neuts % (Manual) Lymphocytes % (Manual) Nucleated RBC % Lymphocytes # (Manual) ABG pO2 ABG HCO3 ABG Base Excess ABG Hemoglobin VBG pH Oxyhemoglobin Sodium Potassium Chloride Carbon Dioxide BUN Creatinine Glucose POC Glucose 178 H 164 H 157 H Hemoglobin A1c Lactic Acid Calcium Phosphorus Magnesium Alkaline Phosphatase C-Reactive Protein Albumin Vancomycin Trough 04/24/21 04/24/21 04/24/21 12:07 12:14 12:14 RBC Hgb Hct MCV MCH Seg Neuts % (Manual) Lymphocytes % (Manual) Nucleated RBC % Lymphocytes # (Manual) ABG pO2 ABG HCO3 ABG Base Excess ABG Hemoglobin VBG pH Oxyhemoglobin Sodium Potassium 3.2 L Chloride 108.7 H Carbon Dioxide 16 L BUN 24 H Creatinine Glucose 160 H POC Glucose 142 H Hemoglobin A1c Lactic Acid 2.50 H* Calcium 10.5 H Phosphorus 0.70 L* D Magnesium Alkaline Phosphatase C-Reactive Protein Albumin Vancomycin Trough 04/24/21 04/24/21 04/24/21 13:02 14:00 15:14 RBC Hgb Hct MCV MCH Seg Neuts % (Manual) Lymphocytes % (Manual) Nucleated RBC % Lymphocytes # (Manual) ABG pO2 ABG HCO3 ABG Base Excess ABG Hemoglobin VBG pH Oxyhemoglobin Sodium Potassium Chloride Carbon Dioxide BUN Creatinine Glucose POC Glucose 138 H 150 H 145 H Hemoglobin A1c Lactic Acid Calcium Phosphorus Magnesium Alkaline Phosphatase C-Reactive Protein Albumin Vancomycin Trough 04/24/21 04/24/21 04/24/21 16:07 17:11 18:12 RBC Hgb Hct MCV MCH Seg Neuts % (Manual) Lymphocytes % (Manual) Nucleated RBC % Lymphocytes # (Manual) ABG pO2 ABG HCO3 ABG Base Excess ABG Hemoglobin VBG pH Oxyhemoglobin Sodium Potassium Chloride Carbon Dioxide BUN Creatinine Glucose POC Glucose 148 H 156 H 153 H Hemoglobin A1c Lactic Acid Calcium Phosphorus Magnesium Alkaline Phosphatase C-Reactive Protein Albumin Vancomycin Trough 04/24/21 04/24/21 04/24/21 18:24 19:55 20:55 RBC Hgb Hct MCV MCH Seg Neuts % (Manual) Lymphocytes % (Manual) Nucleated RBC % Lymphocytes # (Manual) ABG pO2 ABG HCO3 ABG Base Excess ABG Hemoglobin VBG pH Oxyhemoglobin Sodium Potassium Chloride 109.2 H Carbon Dioxide 15 L BUN 22 H Creatinine Glucose 159 H POC Glucose 176 H 146 H Hemoglobin A1c Lactic Acid Calcium Phosphorus 1.80 L D Magnesium Alkaline Phosphatase C-Reactive Protein 24.30 H Albumin Vancomycin Trough 04/24/21 04/24/21 04/24/21 22:04 23:02 23:13 RBC Hgb Hct MCV MCH Seg Neuts % (Manual) Lymphocytes % (Manual) Nucleated RBC % Lymphocytes # (Manual) ABG pO2 ABG HCO3 ABG Base Excess ABG Hemoglobin VBG pH Oxyhemoglobin Sodium Potassium Chloride Carbon Dioxide BUN Creatinine Glucose POC Glucose 169 H 144 H Hemoglobin A1c Lactic Acid 3.10 H* Calcium Phosphorus Magnesium Alkaline Phosphatase C-Reactive Protein Albumin Vancomycin Trough 04/25/21 04/25/21 04/25/21 00:05 01:28 02:03 RBC Hgb Hct MCV MCH Seg Neuts % (Manual) Lymphocytes % (Manual) Nucleated RBC % Lymphocytes # (Manual) ABG pO2 ABG HCO3 ABG Base Excess ABG Hemoglobin VBG pH Oxyhemoglobin Sodium Potassium Chloride Carbon Dioxide BUN Creatinine Glucose POC Glucose 150 H 142 H 148 H Hemoglobin A1c Lactic Acid Calcium Phosphorus Magnesium Alkaline Phosphatase C-Reactive Protein Albumin Vancomycin Trough 04/25/21 04/25/21 04/25/21 03:07 04:17 05:48 RBC Hgb Hct MCV MCH Seg Neuts % (Manual) Lymphocytes % (Manual) Nucleated RBC % Lymphocytes # (Manual) ABG pO2 ABG HCO3 ABG Base Excess ABG Hemoglobin VBG pH Oxyhemoglobin Sodium Potassium Chloride Carbon Dioxide BUN Creatinine Glucose POC Glucose 161 H 158 H 136 H Hemoglobin A1c Lactic Acid Calcium Phosphorus Magnesium Alkaline Phosphatase C-Reactive Protein Albumin Vancomycin Trough 04/25/21 04/25/21 04/25/21 06:52 07:58 08:10 RBC Hgb 9.5 L Hct 28.8 L MCV MCH 26 L Seg Neuts % (Manual) 33.0 L Lymphocytes % (Manual) Nucleated RBC % Lymphocytes # (Manual) 1.1 L ABG pO2 ABG HCO3 ABG Base Excess ABG Hemoglobin VBG pH Oxyhemoglobin Sodium Potassium Chloride Carbon Dioxide BUN Creatinine Glucose POC Glucose 137 H 143 H Hemoglobin A1c Lactic Acid Calcium Phosphorus Magnesium Alkaline Phosphatase C-Reactive Protein Albumin Vancomycin Trough 04/25/21 04/25/21 04/25/21 08:10 08:10 08:53 RBC Hgb Hct MCV MCH Seg Neuts % (Manual) Lymphocytes % (Manual) Nucleated RBC % Lymphocytes # (Manual) ABG pO2 ABG HCO3 ABG Base Excess ABG Hemoglobin VBG pH Oxyhemoglobin Sodium Potassium 3.3 L Chloride 109.0 H Carbon Dioxide 16 L BUN 23 H Creatinine Glucose 151 H POC Glucose 132 H Hemoglobin A1c Lactic Acid 2.10 H* Calcium Phosphorus 2.20 L D Magnesium 1.60 L Alkaline Phosphatase C-Reactive Protein Albumin Vancomycin Trough 04/25/21 04/25/21 04/25/21 09:59 11:20 11:20 RBC Hgb Hct MCV MCH Seg Neuts % (Manual) Lymphocytes % (Manual) Nucleated RBC % Lymphocytes # (Manual) ABG pO2 73.2 L ABG HCO3 16.2 L ABG Base Excess -7.1 L ABG Hemoglobin 8.7 L VBG pH Oxyhemoglobin 94.8 L Sodium Potassium Chloride Carbon Dioxide BUN Creatinine Glucose POC Glucose 141 H 141 H Hemoglobin A1c Lactic Acid Calcium Phosphorus Magnesium Alkaline Phosphatase C-Reactive Protein Albumin Vancomycin Trough 04/25/21 04/25/21 04/25/21 12:04 12:26 13:04 RBC Hgb Hct MCV MCH Seg Neuts % (Manual) Lymphocytes % (Manual) Nucleated RBC % Lymphocytes # (Manual) ABG pO2 ABG HCO3 ABG Base Excess ABG Hemoglobin VBG pH Oxyhemoglobin Sodium Potassium 3.4 L Chloride 109.5 H Carbon Dioxide 14 L BUN 21 H Creatinine Glucose 155 H POC Glucose 129 H 135 H Hemoglobin A1c Lactic Acid Calcium Phosphorus 1.90 L Magnesium 1.60 L Alkaline Phosphatase C-Reactive Protein Albumin Vancomycin Trough 04/25/21 04/25/21 04/25/21 13:58 15:09 16:00 RBC Hgb Hct MCV MCH Seg Neuts % (Manual) Lymphocytes % (Manual) Nucleated RBC % Lymphocytes # (Manual) ABG pO2 ABG HCO3 ABG Base Excess ABG Hemoglobin VBG pH Oxyhemoglobin Sodium Potassium Chloride Carbon Dioxide BUN Creatinine Glucose POC Glucose 140 H 134 H 135 H Hemoglobin A1c Lactic Acid Calcium Phosphorus Magnesium Alkaline Phosphatase C-Reactive Protein Albumin Vancomycin Trough 04/25/21 04/25/21 04/25/21 18:56 18:58 18:58 RBC Hgb Hct MCV MCH Seg Neuts % (Manual) Lymphocytes % (Manual) Nucleated RBC % Lymphocytes # (Manual) ABG pO2 ABG HCO3 ABG Base Excess ABG Hemoglobin VBG pH Oxyhemoglobin Sodium Potassium Chloride 110.1 H Carbon Dioxide 13 L BUN 23 H Creatinine Glucose 206 H POC Glucose 170 H Hemoglobin A1c Lactic Acid 2.10 H* Calcium Phosphorus Magnesium 2.40 H Alkaline Phosphatase C-Reactive Protein Albumin Vancomycin Trough 04/25/21 04/25/21 04/25/21 19:52 20:53 21:54 RBC Hgb Hct MCV MCH Seg Neuts % (Manual) Lymphocytes % (Manual) Nucleated RBC % Lymphocytes # (Manual) ABG pO2 ABG HCO3 ABG Base Excess ABG Hemoglobin VBG pH Oxyhemoglobin Sodium Potassium Chloride Carbon Dioxide BUN Creatinine Glucose POC Glucose 162 H 171 H 139 H Hemoglobin A1c Lactic Acid Calcium Phosphorus Magnesium Alkaline Phosphatase C-Reactive Protein Albumin Vancomycin Trough 04/25/21 04/26/21 04/26/21 22:53 00:03 00:38 RBC Hgb Hct MCV MCH Seg Neuts % (Manual) Lymphocytes % (Manual) Nucleated RBC % Lymphocytes # (Manual) ABG pO2 ABG HCO3 ABG Base Excess ABG Hemoglobin VBG pH Oxyhemoglobin Sodium Potassium Chloride 112.6 H Carbon Dioxide 14 L BUN 22 H Creatinine Glucose 149 H POC Glucose 140 H 129 H Hemoglobin A1c Lactic Acid Calcium Phosphorus Magnesium 2.40 H Alkaline Phosphatase C-Reactive Protein Albumin Vancomycin Trough 04/26/21 04/26/21 04/26/21 01:00 01:56 02:54 RBC Hgb Hct MCV MCH Seg Neuts % (Manual) Lymphocytes % (Manual) Nucleated RBC % Lymphocytes # (Manual) ABG pO2 ABG HCO3 ABG Base Excess ABG Hemoglobin VBG pH Oxyhemoglobin Sodium Potassium Chloride Carbon Dioxide BUN Creatinine Glucose POC Glucose 126 H 137 H 132 H Hemoglobin A1c Lactic Acid Calcium Phosphorus Magnesium Alkaline Phosphatase C-Reactive Protein Albumin Vancomycin Trough 04/26/21 04/26/21 04/26/21 04:04 05:02 05:02 RBC 3.44 L Hgb 8.9 L Hct 26.9 L MCV 78 L MCH 26 L Seg Neuts % (Manual) Lymphocytes % (Manual) Nucleated RBC % Lymphocytes # (Manual) ABG pO2 ABG HCO3 ABG Base Excess ABG Hemoglobin VBG pH Oxyhemoglobin Sodium Potassium Chloride 114.8 H Carbon Dioxide 14 L BUN 22 H Creatinine Glucose 129 H POC Glucose 130 H Hemoglobin A1c Lactic Acid Calcium Phosphorus Magnesium Alkaline Phosphatase C-Reactive Protein Albumin Vancomycin Trough 04/26/21 04/26/21 04/26/21 05:03 06:06 06:53 RBC Hgb Hct MCV MCH Seg Neuts % (Manual) Lymphocytes % (Manual) Nucleated RBC % Lymphocytes # (Manual) ABG pO2 ABG HCO3 ABG Base Excess ABG Hemoglobin VBG pH Oxyhemoglobin Sodium Potassium Chloride Carbon Dioxide BUN Creatinine Glucose POC Glucose 115 H 129 H 121 H Hemoglobin A1c Lactic Acid Calcium Phosphorus Magnesium Alkaline Phosphatase C-Reactive Protein Albumin Vancomycin Trough 04/26/21 04/26/21 04/26/21 07:58 09:09 10:05 RBC Hgb Hct MCV MCH Seg Neuts % (Manual) Lymphocytes % (Manual) Nucleated RBC % Lymphocytes # (Manual) ABG pO2 ABG HCO3 ABG Base Excess ABG Hemoglobin VBG pH Oxyhemoglobin Sodium Potassium Chloride Carbon Dioxide BUN Creatinine Glucose POC Glucose 124 H 125 H 131 H Hemoglobin A1c Lactic Acid Calcium Phosphorus Magnesium Alkaline Phosphatase C-Reactive Protein Albumin Vancomycin Trough 04/26/21 04/26/21 04/26/21 10:52 12:00 13:17 RBC Hgb Hct MCV MCH Seg Neuts % (Manual) Lymphocytes % (Manual) Nucleated RBC % Lymphocytes # (Manual) ABG pO2 ABG HCO3 ABG Base Excess ABG Hemoglobin VBG pH Oxyhemoglobin Sodium Potassium Chloride Carbon Dioxide BUN Creatinine Glucose POC Glucose 129 H 126 H 130 H Hemoglobin A1c Lactic Acid Calcium Phosphorus Magnesium Alkaline Phosphatase C-Reactive Protein Albumin Vancomycin Trough 04/26/21 04/26/21 04/26/21 14:06 14:11 15:07 RBC Hgb Hct MCV MCH Seg Neuts % (Manual) Lymphocytes % (Manual) Nucleated RBC % Lymphocytes # (Manual) ABG pO2 ABG HCO3 ABG Base Excess ABG Hemoglobin VBG pH Oxyhemoglobin Sodium Potassium 5.3 H D Chloride 112.2 H Carbon Dioxide 14 L BUN 22 H Creatinine Glucose 116 H POC Glucose 132 H 130 H Hemoglobin A1c Lactic Acid Calcium Phosphorus Magnesium 2.40 H Alkaline Phosphatase C-Reactive Protein Albumin Vancomycin Trough 04/26/21 04/26/21 04/26/21 15:20 16:05 17:55 RBC Hgb Hct MCV MCH Seg Neuts % (Manual) Lymphocytes % (Manual) Nucleated RBC % Lymphocytes # (Manual) ABG pO2 ABG HCO3 ABG Base Excess ABG Hemoglobin VBG pH Oxyhemoglobin Sodium Potassium Chloride 112.4 H Carbon Dioxide 13 L BUN 22 H Creatinine Glucose 143 H POC Glucose 156 H 194 H Hemoglobin A1c Lactic Acid Calcium Phosphorus Magnesium Alkaline Phosphatase C-Reactive Protein Albumin Vancomycin Trough 04/26/21 04/27/21 04/27/21 19:27 00:02 04:03 RBC 3.20 L Hgb 8.1 L Hct 25.1 L MCV 78 L MCH 25 L Seg Neuts % (Manual) Lymphocytes % (Manual) Nucleated RBC % Lymphocytes # (Manual) ABG pO2 ABG HCO3 ABG Base Excess ABG Hemoglobin VBG pH Oxyhemoglobin Sodium Potassium Chloride Carbon Dioxide BUN Creatinine Glucose POC Glucose 261 H Hemoglobin A1c Lactic Acid Calcium Phosphorus Magnesium Alkaline Phosphatase C-Reactive Protein Albumin Vancomycin Trough 38.2 H 04/27/21 04/27/21 04/27/21 04:03 05:33 09:51 RBC Hgb Hct MCV MCH Seg Neuts % (Manual) Lymphocytes % (Manual) Nucleated RBC % Lymphocytes # (Manual) ABG pO2 ABG HCO3 ABG Base Excess ABG Hemoglobin VBG pH Oxyhemoglobin Sodium Potassium Chloride 112.4 H Carbon Dioxide 12 L BUN 30 H Creatinine Glucose 330 H POC Glucose 311 H 335 H Hemoglobin A1c Lactic Acid Calcium Phosphorus Magnesium Alkaline Phosphatase C-Reactive Protein Albumin Vancomycin Trough 04/27/21 04/27/21 04/27/21 13:15 16:43 18:10 RBC Hgb Hct MCV MCH Seg Neuts % (Manual) Lymphocytes % (Manual) Nucleated RBC % Lymphocytes # (Manual) ABG pO2 ABG HCO3 ABG Base Excess ABG Hemoglobin VBG pH Oxyhemoglobin Sodium Potassium Chloride Carbon Dioxide BUN Creatinine Glucose POC Glucose 291 H 218 H 177 H Hemoglobin A1c Lactic Acid Calcium Phosphorus Magnesium Alkaline Phosphatase C-Reactive Protein Albumin Vancomycin Trough 04/27/21 04/28/21 04/28/21 22:08 02:15 04:41 RBC 3.50 L Hgb 8.9 L Hct 27.3 L MCV 78 L MCH 26 L Seg Neuts % (Manual) Lymphocytes % (Manual) Nucleated RBC % Lymphocytes # (Manual) ABG pO2 ABG HCO3 ABG Base Excess ABG Hemoglobin VBG pH Oxyhemoglobin Sodium Potassium Chloride Carbon Dioxide BUN Creatinine Glucose POC Glucose 136 H 152 H Hemoglobin A1c Lactic Acid Calcium Phosphorus Magnesium Alkaline Phosphatase C-Reactive Protein Albumin Vancomycin Trough 04/28/21 04/28/21 04:41 06:03 RBC Hgb Hct MCV MCH Seg Neuts % (Manual) Lymphocytes % (Manual) Nucleated RBC % Lymphocytes # (Manual) ABG pO2 ABG HCO3 ABG Base Excess ABG Hemoglobin VBG pH Oxyhemoglobin Sodium Potassium Chloride 113.5 H Carbon Dioxide 16 L BUN 37 H Creatinine Glucose 167 H POC Glucose 174 H Hemoglobin A1c Lactic Acid Calcium Phosphorus Magnesium Alkaline Phosphatase C-Reactive Protein Albumin Vancomycin Trough Allied health notes reviewed: nursing
[2021-04-28] MEDS: INSULIN NPH/REGULAR 70/30 INJ SUB-Q SCH ×2 (08:40→18:10)
[2021-04-28] MEDS: ENOXAPARIN 40 MG/0.4 ML INJ SUB-Q SCH ×2 (09:57→22:12)
[2021-04-28] MEDS: FAMOTIDINE 20 MG/2 ML INJ IV SCH (09:58)
--- NOTE | 2021-04-28 11:08 | Progress Note ---
Assessment and Plan Assessment and plan: This is a 51-year-old female with past medical history of DM, noncomplaint with medications, obesity, arthritis, and Rt. Knee surgery admitted for DKA Hospital Course to Date: 04/24/21- Patient remains on DKA protocol. Still very lethargic this am, following simple commands. Rt. knee wound and swelling noted, and nursing staff also reported thick, white vaginal discharge. C/f sepsis, blood culture ordered, this am UA noted. Will start patient on PO difflucan for possible yeast infection, pending culture data. Anion GAP is still 18 this am, will continue DKA protocol for now. Continue to monitor electrolytes, serial BMP ordered. 04/25/21- Patient appears to be in distress this am, now on 3L NC. Lactic acidosis worsen overnight, X1L LR bolus adminstered. Ordered placed for stat ABGs. Blood culture growing GPC 3/4 bottles, patient remains afebrile with no leukocytosis. IV abx was escalated, ID consulted. Ortho consult is still pending, order placed for XR of the Rt. knee. Given patient worsen condition and high anio, gap, will continue insulin gtt for now. Low K and mg was repleted. Continue serial BMP,mg, and phosp 04/26/21- Patient appears more alert and awake this am, talkative, and following commands. Remains on DKA protocol, gap is closedX2, will transition patient to SSI and basal insulin and initiate enteral nutrition. Patient remains afebrile overnight, continue IV Abx per ID. 04/27/21- TASHA overnight. Patient mentation continue to improve. Worsening hyperglycemia, patient is tolerating TF. 70/30 added BID and SSI was adjusted to high dose Q4hrs. D/W CCM patient is stable for transfer to [facility] 04/28/21- Patient continue to improve. Remains drowsy this am, however, easily arousable. Now on 4L NC, still requiring Q4hrs NT suction due to increased secretions and weak cough. Continue to wean O2 supplement as tolerated, F/U CXR in the am. Continue IV Abx per ID. Assessment and Plan #Acute Metabolic Encephalopathy-improved - Probably related to metabolic acidosis - Mentation improved this am, AAO and talkative - Continue to reiorient patient as needed - Avoid benzodiazepine to reduce the possibility of delirium - PRN analgesia for CPOT greater than 3 - Maintenance of sleep-wake cycle #Tachycardia- improved - ST on the monitor, HR in the low 100s - Probably reactive to current condition - Hemodynamic stable - Maintain adequate perfusion - Continue blood pressure monitor per protocol - Maintain MAP above 65 #Acute Hypoxemic Respiratory Failure #Aspiration Pneumonia #Bilateral pulmonary Opacities - 04/26 CXR with Bilateral pulmonary opacities - Required 50%Venti mask - Now on 4L NC this am SPO2 94 to 97% - COVID swab negative - CCM consulted, appreciate recommendations - Continue oral and pulmonary hygiene - VAP bundle addressed - Aspiration precaution HOB above 30 - F/U CXR in the am - Continue SPO2 monitoring for SPO2 goal above 92% #GI: TF - Patient was transitioned to SubQ insulin - Enteral nutrition was initiated - Nutrition consulted - Patient failed swallow - Speech is following - PPI- Pepcid - Continue BR #Hypokalemia- improved #Hypophosphetemia-improved - Probably due to DKA - Continue IVF - Monitor and replace electrolytes as needed - Continue to trend BMP, mg, and phosp - Strict intake and output - Avoid nephrotoxic medications; Renally dose medications #Sepsis #Aspiration Pneumonia #Vaginal Yeast Infection #?? Right Septic Knee #Lactic Acidosis- improved - Thick, white vaginal discharge - Rt. Knee wound and swelling, H/o of Knee surgery - XR of Rt. Knee noted - Patient remains afebrile, wbcs wnl - UA no indication for infection - Blood Culture +GPC 3/4 bottles - Lactic as high as 3.10--> 1.70 - Procal 21.10 - ID on consult - ID recommended draining Rt. knee effusion - Ortho is on the case - Continue IV antibiotoc per ID - F/U on culture data - Daily CBC monitor #Uncontrolled DM #Diabetic Ketoacidosis (DKA)- resolved - Presented with elevated BG and acidosis - UA + glucose, protein, and ketones - A1c 18.3 - Was on DKA protocol - Patient transitioned to SSI insulin Q4hrs - 70/30 added due to worsen hyperglycemia - High dose SSI also adjusted to Q4hrs - Avoid Hypoglycemia #DVT Prophylaxis - AC- Lovenox added - SCD to bilateral lower extremities while in bed The high probability of a clinically significant, sudden or life threatening deterioration of the [Neuro, ID, Endo] system(s) required my full and direct attention, intervention and personal management. The aggregate critical care time was [60] minutes. This time is in addition to time spent performing reported procedures but includes the following: [x] Data Review and interpretation [x] Patient assessment and monitoring of vital signs [x] Documentation [x] Medication orders and management Disposition Plan: ICU Total Time Spent with Patient (Minutes): 60 History Interval history: Patient seen and examined at the bedside. Remains alert and talkative this am. On 4L NC this am, SPO2 at 100%. Still requiring NT suctioning due to weak cough. TASHA overnight. Hospitalist Physical - Constitutional Vitals: Temp Pulse Resp BP Pulse Ox 98.8 F 99 H 27 H 126/74 98 04/28/21 08:00 04/28/21 08:51 04/28/21 08:51 04/28/21 08:00 04/28/21 08:51 General appearance: Present: no acute distress, obese, other - EENT Eyes: Present: PERRL, EOM intact ENT: hearing intact, other (Dry oral mucosa) - Neck Neck: Present: normal ROM - Respiratory Respiratory effort: normal Respiratory: bilateral: rhonchi - Cardiovascular Rhythm: regular Heart Sounds: Present: S1 & S2 - Extremities Extremities: no ischemia, pulses intact, pulses symmetrical Extremity abnormal: edema Peripheral Pulses: within normal limits - Abdominal General gastrointestinal: soft, non-tender, normal bowel sounds - Integumentary Integumentary: Present: warm, dry - Psychiatric Psychiatric: cooperative, depressed - Neurologic Neurologic: moves all extremities - Allied Health Allied health notes reviewed: nursing HEART Score - HEART Score Troponin: Troponin T < 0.010 ng/mL (0.00-0.029) 04/23/21 10:33 Results - Labs CBC & Chem 7: 04/28/21 04:41 04/28/21 04:41 Labs: Laboratory Last Values WBC 8.5 K/mm3 (4.5-11.0) 04/28/21 04:41 RBC 3.50 M/mm3 (3.65-5.03) L 04/28/21 04:41 Hgb 8.9 gm/dl (10.1-14.3) L 04/28/21 04:41 Hct 27.3 % (30.3-42.9) L 04/28/21 04:41 MCV 78 fl (79-97) L 04/28/21 04:41 MCH 26 pg (28-32) L 04/28/21 04:41 MCHC 33 % (30-34) 04/28/21 04:41 RDW 15.1 % (13.2-15.2) 04/28/21 04:41 Plt Count 152 K/mm3 (140-440) 04/28/21 04:41 Add Manual Diff Complete 04/25/21 08:10 Total Counted 100 04/25/21 08:10 Seg Neutrophils % Senior Mainframe Developer 04/23/21 10:33 Seg Neuts % (Manual) 33.0 % (40.0-70.0) L 04/25/21 08:10 Band Neutrophils % 23.0 % 04/25/21 08:10 Lymphocytes % (Manual) 19.0 % (13.4-35.0) 04/25/21 08:10 Reactive Lymphs % (Man) 1.0 % 04/25/21 08:10 Monocytes % (Manual) 1.0 % (0.0-7.3) 04/25/21 08:10 Eosinophils % (Manual) 1.0 % (0.0-4.3) 04/25/21 08:10 Metamyelocytes % 3.0 % 04/23/21 10:33 Myelocytes % 22.0 % 04/25/21 08:10 Nucleated RBC % Not Reportable 04/25/21 08:10 Seg Neutrophils # Man 1.9 K/mm3 (1.8-7.7) 04/25/21 08:10 Band Neutrophils # 1.3 K/mm3 04/25/21 08:10 Lymphocytes # (Manual) 1.1 K/mm3 (1.2-5.4) L 04/25/21 08:10 Abs React Lymphs (Man) 0.1 K/mm3 04/25/21 08:10 Monocytes # (Manual) 0.1 K/mm3 (0.0-0.8) 04/25/21 08:10 Eosinophils # (Manual) 0.1 K/mm3 (0.0-0.4) 04/25/21 08:10 Basophils # (Manual) 0.0 K/mm3 (0.0-0.1) 04/25/21 08:10 Metamyelocytes # 0.0 K/mm3 04/25/21 08:10 Myelocytes # 1.3 K/mm3 04/25/21 08:10 Promyelocytes # 0.0 K/mm3 04/25/21 08:10 Blast Cells # 0.0 K/mm3 04/25/21 08:10 WBC Morphology Not Reportable 04/25/21 08:10 Hypersegmented Neuts Not Reportable 04/25/21 08:10 Hyposegmented Neuts Not Reportable 04/25/21 08:10 Hypogranular Neuts Not Reportable 04/25/21 08:10 Smudge Cells Not Reportable 04/25/21 08:10 Toxic Granulation Not Reportable 04/25/21 08:10 Toxic Vacuolation Not Reportable 04/25/21 08:10 Dohle Bodies Not Reportable 04/25/21 08:10 Pelger-Huet Anomaly Not Reportable 04/25/21 08:10 Thierry Rods Not Reportable 04/25/21 08:10 Platelet Estimate Consistent w auto 04/25/21 08:10 Clumped Platelets Not Reportable 04/25/21 08:10 Plt Clumps, EDTA Not Reportable 04/25/21 08:10 Large Platelets Not Reportable 04/25/21 08:10 Giant Platelets Not Reportable 04/25/21 08:10 Platelet Satelliting Not Reportable 04/25/21 08:10 Plt Morphology Comment Not Reportable 04/25/21 08:10 RBC Morphology Not Reportable 04/25/21 08:10 Dimorphic RBCs Not Reportable 04/25/21 08:10 Polychromasia Not Reportable 04/25/21 08:10 Hypochromasia 1+ 04/25/21 08:10 Poikilocytosis Not Reportable 04/25/21 08:10 Anisocytosis Not Reportable 04/25/21 08:10 Microcytosis Not Reportable 04/25/21 08:10 Macrocytosis Not Reportable 04/25/21 08:10 Spherocytes Not Reportable 04/25/21 08:10 Pappenheimer Bodies Not Reportable 04/25/21 08:10 Sickle Cells Not Reportable 04/25/21 08:10 Target Cells Not Reportable 04/25/21 08:10 Tear Drop Cells Not Reportable 04/25/21 08:10 Ovalocytes Not Reportable 04/25/21 08:10 Helmet Cells Not Reportable 04/25/21 08:10 [place] Bodies Not Reportable 04/25/21 08:10 [place] Rings Not Reportable 04/25/21 08:10 Kamari Cells Not Reportable 04/25/21 08:10 Bite Cells Not Reportable 04/25/21 08:10 Crenated Cell Not Reportable 04/25/21 08:10 Elliptocytes Not Reportable 04/25/21 08:10 Acanthocytes (Spur) Not Reportable 04/25/21 08:10 Rouleaux Not Reportable 04/25/21 08:10 Hemoglobin C Crystals Not Reportable 04/25/21 08:10 Schistocytes Not Reportable 04/25/21 08:10 Malaria parasites Not Reportable 04/25/21 08:10 Juan Bodies Not Reportable 04/25/21 08:10 Hem Pathologist Commnt No 04/25/21 08:10 ABG pH 7.426 pH Units (7.350-7.450) 04/25/21 11:20 ABG pCO2 25.3 mm Hg 04/25/21 11:20 ABG pO2 73.2 mm Hg (80.0-90.0) L 04/25/21 11:20 ABG HCO3 16.2 mmol/L (20.0-26.0) L 04/25/21 11:20 ABG O2 Saturation 96.9 % (95.0-99.0) 04/25/21 11:20 ABG O2 Content 11.6 (0.0-44) 04/25/21 11:20 ABG Base Excess -7.1 mmol/L (-2.0-3.0) L 04/25/21 11:20 ABG Hemoglobin 8.7 gm/dl (12.0-16.0) L 04/25/21 11:20 ABG Carboxyhemoglobin 1.6 % (0.0-5.0) 04/25/21 11:20 ABG Methemoglobin 0.6 % (0.0-1.5) 04/25/21 11:20 VBG pH 7.180 (7.320-7.420) L* 04/23/21 10:33 Oxyhemoglobin 94.8 % (95.0-99.0) L 04/25/21 11:20 FiO2 28 % 04/25/21 11:20 Sodium 141 mmol/L (137-145) 04/28/21 04:41 Potassium 4.4 mmol/L (3.6-5.0) 04/28/21 04:41 Chloride 113.5 mmol/L (98-107) H 04/28/21 04:41 Carbon Dioxide 16 mmol/L (22-30) L 04/28/21 04:41 Anion Gap 16 mmol/L 04/28/21 04:41 BUN 37 mg/dL (7-17) H 04/28/21 04:41 Creatinine 1.1 mg/dL (0.6-1.2) 04/28/21 04:41 Estimated GFR > 60 ml/min 04/28/21 04:41 BUN/Creatinine Ratio 34 % 04/28/21 04:41 Glucose 167 mg/dL (65-100) H 04/28/21 04:41 POC Glucose 212 mg/dL (70-105) H 04/28/21 08:42 Hemoglobin A1c 18.3 % (4-6) H 04/24/21 04:16 Lactic Acid 1.70 mmol/L (0.7-2.0) 04/26/21 05:02 Uric Acid 7.5 mg/dL (3.5-7.6) 04/24/21 12:14 Calcium 8.8 mg/dL (8.4-10.2) 04/28/21 04:41 Phosphorus 3.50 mg/dL (2.5-4.5) 04/27/21 04:03 Magnesium 2.30 mg/dL (1.7-2.3) 04/27/21 04:03 Total Bilirubin 0.60 mg/dL (0.1-1.2) 04/23/21 10:33 AST 10 units/L (5-40) 04/23/21 10:33 ALT 9 units/L (7-56) 04/23/21 10:33 Alkaline Phosphatase 130 units/L (35-129) H 04/23/21 10:33 Ammonia 37.0 umol/L (25-60) 04/23/21 10:33 Total Creatine Kinase 83 units/L (30-135) 04/23/21 10:33 Troponin T < 0.010 ng/mL (0.00-0.029) 04/23/21 10:33 C-Reactive Protein 24.30 mg/dL (0.00-1.30) H 04/24/21 18:24 Total Protein 8.2 g/dL (6.3-8.2) 04/23/21 10:33 Albumin 2.9 g/dL (3.9-5) L 04/23/21 10:33 Albumin/Globulin Ratio 0.5 % 04/23/21 10:33 Procalcitonin 21.10 ng/mL (<0.15) 04/24/21 12:14 TSH 1.400 mlU/mL (0.270-4.200) 04/23/21 10:33 Urine Color Katie (Yellow) 04/27/21 16:16 Urine Turbidity Cloudy (Clear) 04/27/21 16:16 Urine pH 5.0 (5.0-7.0) 04/27/21 16:16 Ur Specific [place] 1.014 (1.003-1.030) 04/27/21 16:16 Urine Protein <15 mg/dl mg/dL (Negative) 04/27/21 16:16 Urine Glucose (UA) >=500 mg/dL (Negative) 04/27/21 16:16 Urine Ketones Neg mg/dL (Negative) 04/27/21 16:16 Urine Blood Neg (Negative) 04/27/21 16:16 Urine Nitrite Neg (Negative) 04/27/21 16:16 Urine Bilirubin Neg (Negative) 04/27/21 16:16 Urine Urobilinogen 2.0 mg/dL (<2.0) 04/27/21 16:16 Ur Leukocyte Esterase Neg (Negative) 04/27/21 16:16 Urine WBC (Auto) 1.0 /HPF (0.0-6.0) 04/27/21 16:16 Urine RBC (Auto) 1.0 /HPF (0.0-6.0) 04/27/21 16:16 U Epithel Cells (Auto) < 1.0 /HPF (0-13.0) 04/24/21 08:40 Urine Bacteria (Auto) 1+ /HPF (Negative) 04/27/21 16:16 Amorphous Crystals Few 04/27/21 16:16 Urine Yeast (Budding) 3+ /HPF 04/27/21 16:16 Vancomycin Trough 38.2 ug/mL (5.0-20.0) H 04/26/21 19:27 Coronavirus (PCR) Negative (Negative) 04/25/21 Unknown Microbiology: Microbiology 04/26/21 09:04 Peripheral/Venous Blood Culture - Preliminary NO GROWTH AFTER 48 HOURS 04/26/21 05:02 Peripheral/Venous Blood Culture - Preliminary NO GROWTH AFTER 48 HOURS 04/24/21 12:34 Peripheral/Venous Blood Culture - Final Beta Hemolytic Strep Group B 04/24/21 12:14 Peripheral/Venous Blood Culture - Final Beta Hemolytic Strep Group B Sanchez/IV: Voiding Method External Female Catheter Active Medications - Current Medications Current Medications: Generic Name Dose Route Start Last Admin Trade Name Freq PRN Reason Stop Dose Admin Acetaminophen 650 mg 04/23/21 11:54 Acetaminophen 325 Mg Tab PO Q6H PRN Pain MILD(1-3)/Fever >100.5/SMITH Lipase/Protease/Amylase 1 each 04/26/21 11:00 Lipase 10,500/Protease 25,000/Amylase 43,750 (Units) Dr Rodriguez FEEDTUBE PRN PRN For Clogged Feeding Tube Dextrose 50 ml 04/26/21 14:00 Dextrose 50% In Water (25gm) 50 Ml Syringe IV Q30MIN PRN Hypoglycemia Protocol Enoxaparin Sodium 40 mg 04/24/21 22:00 04/28/21 09:57 Enoxaparin 40 Mg/0.4 Ml Inj SUB-Q 40 mg BID AMIRA Administration Protocol Famotidine 20 mg 04/25/21 10:00 04/28/21 09:58 Famotidine 20 Mg/2 Ml Inj IV 20 mg QDAY AMIRA Administration Hydromorphone HCl 0.5 mg 04/23/21 11:54 04/27/21 16:29 Hydromorphone 1 Mg/1 Ml Inj IV 0.5 mg Q23H PRN Administration Pain , Severe (7-10) Ceftriaxone Sodium 2 gm in 100 mls @ 200 mls/hr 04/25/21 14:00 04/27/21 13:20 Rocephin/Ns 2 Gm/100 Ml IV 05/10/21 14:29 200 mls/hr Q24H AMIRA Administration Protocol Sodium Bicarbonate 100 meq/ 1,100 mls @ 75 mls/hr 04/27/21 15:00 04/28/21 06:24 Sterile Water IV 04/29/21 05:39 75 mls/hr DIRECT AMIRA Administration Insulin Human Isoph/Insulin Regular 40 unit 04/27/21 17:00 04/28/21 08:40 Insulin Nph/Regular 70/30 Inj SUB-Q 40 unit BIDDIAB AMIRA Administration Insulin Human Lispro 0 unit 04/27/21 10:00 04/28/21 09:58 Insulin Lispro 100 Unit/Ml SUB-Q 3 unit Q4HR AMIRA Administration Protocol Oxycodone/Acetaminophen 1 tab 04/23/21 11:54 Oxycodone /Acetaminophen 5-325mg Tab PO Q16H PRN Pain, Moderate (4-6) Senna 17.2 mg 04/25/21 22:00 04/27/21 22:02 Sennosides 8.6 Mg Tab PO 17.2 mg QHS AMIRA Administration Simple Syrup 15 ml 04/26/21 11:00 Simple Syrup 15 Ml FEEDTUBE PRN PRN Hypoglycemia Simple Syrup 30 ml 04/26/21 11:00 Simple Syrup 15 Ml FEEDTUBE PRN PRN Hypoglycemia Sodium Bicarbonate 325 mg 04/26/21 09:00 Sodium Bicarbonate 325 Mg Tab FEEDTUBE PRN PRN For Clogged Feeding Tube Sodium Bicarbonate 325 mg 04/26/21 11:00 Sodium Bicarbonate 325 Mg Tab FEEDTUBE PRN PRN For Clogged Feeding Tube Sodium Chloride 10 ml 04/23/21 22:00 04/28/21 09:58 Sodium Chloride 0.9% 10 Ml Flush Syringe IV 10 ml BID AMIRA Administration Sodium Chloride 10 ml 04/23/21 11:54 04/24/21 11:15 Sodium Chloride 0.9% 10 Ml Flush Syringe IV 10 ml PRN PRN Administration LINE FLUSH Nutrition/Malnutrition Assess - Dietary Evaluation Nutrition/Malnutrition Findings: Nutrition Notes Start: 04/26/21 09:53 Freq: Status: Active Protocol: Document 04/27/21 10:44 HOANG (Rec: 04/27/21 10:44 HOANG [id number]) Nutrition Notes Initial or Follow up Brief Note Subjective/Other Information Schedule F/U for new TF. Nutrition Intervention Follow-Up By: 04/29/21 Additional Comments F/U: new TF
[2021-04-28] MEDS: cefTRIAXone/NS 2 GM/100 ML 2 GM/100 ML BAG IV SCH (14:57)
[2021-04-28] MEDS: SENNOSIDES 8.6 MG TAB PO SCH (22:13)
[2021-04-29] MEDS: INSULIN LISPRO 100 UNIT/ML SUB-Q SCH ×3 (02:02→12:22)
--- NOTE | 2021-04-29 05:00 | XRay Report ---
XR chest 1V ap INDICATION / CLINICAL INFORMATION: F/U Delfino. PNA. COMPARISON: 04/26/2021 FINDINGS: SUPPORT DEVICES: Enteric catheter tip and side port projects in the stomach. HEART /PULMONARY VASCULATURE: Unchanged. LUNGS / PLEURA: Low lung volumes with bibasilar opacities/atelectasis persists, unchanged. No pneumot horax. IMPRESSION: 1. No significant interval change. Signer Name: Jonatan Julian MD Signed: 04/29/2021 4:56 AM Workstation Name: [id number]
[2021-04-29 05:47] LABS: Hematocrit 26.4 % (30.3-42.9); Hemoglobin 8.5 gm/dl (10.1-14.3); Mean Corpuscular HGB Conc 32 % (30-34); Mean Corpuscular Volume 79 fl (79-97); Platelet Count 158 K/mm3 (140-440); Red Blood Count 3.35 M/mm3 (3.65-5.03)
[2021-04-29 05:50] LABS: BUN/Creatinine Ratio 41; Blood Urea Nitrogen 41 mg/dL (7-17); Calcium 8.6 mg/dL (8.4-10.2); Hemolysis Index 2
[2021-04-29] MEDS: INSULIN NPH/REGULAR 70/30 INJ SUB-Q SCH ×2 (08:42→16:35)
[2021-04-29] MEDS: FREE WATER PO SCH ×3 (08:43→21:42)
[2021-04-29] MEDS: ENOXAPARIN 40 MG/0.4 ML INJ SUB-Q SCH ×2 (10:45→21:43)
--- NOTE | 2021-04-29 12:00 | Progress Note ---
Assessment and Plan Acute metabolic acidosis Diabetic ketoacidosis Acute toxic metabolic encephalopathy-improving Obesity Osteoarthritis Hypercalcemia Airway clearance , chest PT Continue with NGT feeding Follow up evaluation by V[employer]- awaiting dysphagia screen this morning Continue with free water flushes,to treat hypernatremia Needs nursing home antibiotics per ID Titrate supplemental oxygen to keep SpO2 88-90% PT, increase activity as tolerated Mobility, off loading and frequent turning for pressure ulcer prevention Can transfer out of the ICU - continue aspiration precautions (HOB > 40 degrees) - continue accuchecks with glycemic control - target blood glucose 140-180 mg/dL; avoid hypoglycemia - antiinfective's per ID team recommendations (Rocephin) - prn bronchodilators with pulmonary hygiene per RT - avoid nephrotoxins, renally dose all medications - avoid benzodiazepines, reduce the possibility of delirium - prn analgesia per pain score - Maintenance of sleep-wake cycle, avoid delirium - VTE prophylaxis - continue mobility protocols for pressure ulcer prophylaxis - Monitor hemodynamics closely - continue other care per attending / other consultants Subjective Date of service: 04/29/21 Principal diagnosis: HAGMA; DKA; AMS; Obesity; Osteoarthritis; Hypercalcemia Interval history: Patient is seen today for: Acute metabolic acidosis; Diabetic ketoacidosis; Acu te toxic metabolic encephalopathy; Obesity; Osteoarthritis; Hypercalcemia Seen and examined at bedside; 24hour events reviewed; nursing and respiratory care staff consulted; no adverse overnight events reported to me; resting peacefully in bed; denies N/V/F/C. Awake and alert, strong cough . On supplemental oxygen via NC, Objective Vital Signs - 12hr 04/29/21 04/29/21 04/29/21 00:00 00:30 01:01 Temperature 98.6 F Pulse Rate 103 H 102 H 102 H Pulse Rate [ 102 H From Monitor] Respiratory 34 H 31 H 31 H Rate Blood Pressure 145/78 125/86 146/83 O2 Sat by Pulse 97 96 96 Oximetry 04/29/21 04/29/21 04/29/21 01:31 02:01 03:01 Temperature Pulse Rate 103 H 103 H 101 H Pulse Rate [ From Monitor] Respiratory 30 H 20 30 H Rate Blood Pressure 157/83 157/83 130/70 O2 Sat by Pulse 96 96 96 Oximetry 04/29/21 04/29/21 04/29/21 04:00 05:00 06:00 Temperature 99.2 F Pulse Rate 97 H 97 H 93 H Pulse Rate [ 102 H From Monitor] Respiratory 22 26 H 35 H Rate Blood Pressure 138/101 142/81 126/69 O2 Sat by Pulse 98 96 95 Oximetry 04/29/21 04/29/21 04/29/21 06:11 07:00 07:43 Temperature Pulse Rate 93 H Pulse Rate [ 102 H From Monitor] Respiratory 33 H 33 H Rate Blood Pressure 130/76 O2 Sat by Pulse 99 95 96 Oximetry 04/29/21 04/29/21 04/29/21 08:00 09:00 10:00 Temperature 98.2 F Pulse Rate 96 H 95 H 100 H Pulse Rate [ 95 H From Monitor] Respiratory 27 H 31 H 24 Rate Blood Pressure 138/81 135/77 137/68 O2 Sat by Pulse 96 95 95 Oximetry 04/29/21 11:00 Temperature Pulse Rate 98 H Pulse Rate [ From Monitor] Respiratory 24 Rate Blood Pressure 122/71 O2 Sat by Pulse 95 Oximetry Constitutional: no acute distress, alert, other (middle aged obese female with normal work of breathing at rest) Eyes: non-icteric ENT: oropharynx moist Neck: supple, no lymphadenopathy, no JVD Effort: normal Ascultation: Bilateral: clear, diminished breath sounds, rhonchi (and referred upper airway sounds) Percussion: Bilateral: not dull Cardiovascular: regular rate and rhythm, other (S1,S2) Gastrointestinal: hypoactive bowel sounds, soft, non-tender, non-distended Integumentary: rash (perineal) Extremities: no cyanosis, no edema, pulses normal, no ischemia or petechiae Neurologic: normal mental status, non-focal exam (grossly), pupils equal and round, CN II-XII normal, motor strength normal and, other Psychiatric: mood appropriate, affect normal CBC and BMP: 04/30/21 04:41 04/30/21 04:41 ABG, PT/INR, D-dimer: ABG ABG pH 7.426 pH Units (7.350-7.450) 04/25/21 11:20 ABG pCO2 25.3 mm Hg 04/25/21 11:20 ABG pO2 73.2 mm Hg (80.0-90.0) L 04/25/21 11:20 ABG O2 Saturation 96.9 % (95.0-99.0) 04/25/21 11:20 Abnormal lab findings: Abnormal Labs 04/23/21 04/23/21 04/23/21 10:33 10:33 10:33 WBC RBC Hgb Hct MCV MCH 26 L Seg Neuts % (Manual) Lymphocytes % (Manual) 7.0 L Nucleated RBC % 2.0 H Lymphocytes # (Manual) 0.5 L ABG pO2 ABG HCO3 ABG Base Excess ABG Hemoglobin VBG pH 7.180 L* Oxyhemoglobin Sodium 122 L Potassium 3.0 L Chloride 84.8 L Carbon Dioxide 6 L* BUN 49 H Creatinine 1.4 H Glucose 775 H* POC Glucose Hemoglobin A1c Lactic Acid Calcium 12.2 H* Phosphorus Magnesium Alkaline Phosphatase 130 H C-Reactive Protein Albumin 2.9 L Vancomycin Trough 04/23/21 04/23/21 04/23/21 10:40 12:44 14:01 WBC RBC Hgb Hct MCV MCH Seg Neuts % (Manual) Lymphocytes % (Manual) Nucleated RBC % Lymphocytes # (Manual) ABG pO2 ABG HCO3 ABG Base Excess ABG Hemoglobin VBG pH Oxyhemoglobin Sodium Potassium Chloride Carbon Dioxide BUN Creatinine Glucose POC Glucose > 600 H 550 H Hemoglobin A1c Lactic Acid Calcium Phosphorus 1.50 L Magnesium Alkaline Phosphatase C-Reactive Protein Albumin Vancomycin Trough 04/23/21 04/23/21 04/23/21 14:01 14:56 15:43 WBC RBC Hgb Hct MCV MCH Seg Neuts % (Manual) Lymphocytes % (Manual) Nucleated RBC % Lymphocytes # (Manual) ABG pO2 ABG HCO3 ABG Base Excess ABG Hemoglobin VBG pH Oxyhemoglobin Sodium 125 L 131 L Potassium 3.0 L 2.9 L* Chloride 89.2 L Carbon Dioxide 6 L* 8 L* BUN 45 H 39 H Creatinine 1.3 H Glucose 594 H* 434 H POC Glucose 425 H Hemoglobin A1c Lactic Acid Calcium 10.9 H 10.3 H Phosphorus Magnesium Alkaline Phosphatase C-Reactive Protein Albumin Vancomycin Trough 04/23/21 04/23/21 04/23/21 15:48 17:21 18:07 WBC RBC Hgb Hct MCV MCH Seg Neuts % (Manual) Lymphocytes % (Manual) Nucleated RBC % Lymphocytes # (Manual) ABG pO2 ABG HCO3 ABG Base Excess ABG Hemoglobin VBG pH Oxyhemoglobin Sodium Potassium Chloride Carbon Dioxide BUN Creatinine Glucose POC Glucose 410 H 407 H 428 H Hemoglobin A1c Lactic Acid Calcium Phosphorus Magnesium Alkaline Phosphatase C-Reactive Protein Albumin Vancomycin Trough 04/23/21 04/23/21 04/23/21 19:13 19:54 19:54 WBC RBC Hgb Hct MCV MCH Seg Neuts % (Manual) Lymphocytes % (Manual) Nucleated RBC % Lymphocytes # (Manual) ABG pO2 ABG HCO3 ABG Base Excess ABG Hemoglobin VBG pH Oxyhemoglobin Sodium 131 L Potassium 3.1 L Chloride 95.9 L Carbon Dioxide 7 L* BUN 39 H Creatinine Glucose 391 H POC Glucose 350 H Hemoglobin A1c Lactic Acid Calcium 11.2 H Phosphorus 1.10 L D Magnesium Alkaline Phosphatase C-Reactive Protein Albumin Vancomycin Trough 04/23/21 04/23/21 04/23/21 20:12 20:59 22:05 WBC RBC Hgb Hct MCV MCH Seg Neuts % (Manual) Lymphocytes % (Manual) Nucleated RBC % Lymphocytes # (Manual) ABG pO2 ABG HCO3 ABG Base Excess ABG Hemoglobin VBG pH Oxyhemoglobin Sodium Potassium Chloride Carbon Dioxide BUN Creatinine Glucose POC Glucose 365 H 286 H 257 H Hemoglobin A1c Lactic Acid Calcium Phosphorus Magnesium Alkaline Phosphatase C-Reactive Protein Albumin Vancomycin Trough 04/23/21 04/23/21 04/23/21 22:23 22:59 23:57 WBC RBC Hgb Hct MCV MCH Seg Neuts % (Manual) Lymphocytes % (Manual) Nucleated RBC % Lymphocytes # (Manual) ABG pO2 ABG HCO3 ABG Base Excess ABG Hemoglobin VBG pH Oxyhemoglobin Sodium 135 L Potassium 3.2 L Chloride Carbon Dioxide 10 L BUN 35 H Creatinine Glucose 300 H POC Glucose 238 H 223 H Hemoglobin A1c Lactic Acid Calcium 11.6 H Phosphorus Magnesium Alkaline Phosphatase C-Reactive Protein Albumin Vancomycin Trough 04/24/21 04/24/21 04/24/21 00:10 00:56 01:58 WBC RBC Hgb Hct MCV MCH Seg Neuts % (Manual) Lymphocytes % (Manual) Nucleated RBC % Lymphocytes # (Manual) ABG pO2 ABG HCO3 ABG Base Excess ABG Hemoglobin VBG pH Oxyhemoglobin Sodium Potassium 3.2 L Chloride Carbon Dioxide 13 L BUN 33 H Creatinine Glucose 267 H POC Glucose 254 H 264 H Hemoglobin A1c Lactic Acid Calcium 11.2 H Phosphorus 1.20 L Magnesium Alkaline Phosphatase C-Reactive Protein Albumin Vancomycin Trough 04/24/21 04/24/21 04/24/21 02:58 03:57 04:16 WBC RBC Hgb Hct MCV MCH Seg Neuts % (Manual) Lymphocytes % (Manual) Nucleated RBC % Lymphocytes # (Manual) ABG pO2 ABG HCO3 ABG Base Excess ABG Hemoglobin VBG pH Oxyhemoglobin Sodium Potassium Chloride 108.0 H Carbon Dioxide 13 L BUN 31 H Creatinine Glucose 243 H POC Glucose 251 H 200 H Hemoglobin A1c Lactic Acid Calcium 10.9 H Phosphorus 1.80 L D Magnesium Alkaline Phosphatase C-Reactive Protein Albumin Vancomycin Trough 04/24/21 04/24/21 04/24/21 04:16 04:16 04:59 WBC RBC Hgb Hct MCV MCH 26 L Seg Neuts % (Manual) Lymphocytes % (Manual) Nucleated RBC % Lymphocytes # (Manual) ABG pO2 ABG HCO3 ABG Base Excess ABG Hemoglobin VBG pH Oxyhemoglobin Sodium Potassium Chloride Carbon Dioxide BUN Creatinine Glucose POC Glucose 208 H Hemoglobin A1c 18.3 H Lactic Acid Calcium Phosphorus Magnesium Alkaline Phosphatase C-Reactive Protein Albumin Vancomycin Trough 04/24/21 04/24/21 04/24/21 05:53 06:51 07:58 WBC RBC Hgb Hct MCV MCH Seg Neuts % (Manual) Lymphocytes % (Manual) Nucleated RBC % Lymphocytes # (Manual) ABG pO2 ABG HCO3 ABG Base Excess ABG Hemoglobin VBG pH Oxyhemoglobin Sodium Potassium Chloride Carbon Dioxide BUN Creatinine Glucose POC Glucose 213 H 161 H 149 H Hemoglobin A1c Lactic Acid Calcium Phosphorus Magnesium Alkaline Phosphatase C-Reactive Protein Albumin Vancomycin Trough 04/24/21 04/24/21 04/24/21 09:21 10:06 11:03 WBC RBC Hgb Hct MCV MCH Seg Neuts % (Manual) Lymphocytes % (Manual) Nucleated RBC % Lymphocytes # (Manual) ABG pO2 ABG HCO3 ABG Base Excess ABG Hemoglobin VBG pH Oxyhemoglobin Sodium Potassium Chloride Carbon Dioxide BUN Creatinine Glucose POC Glucose 178 H 164 H 157 H Hemoglobin A1c Lactic Acid Calcium Phosphorus Magnesium Alkaline Phosphatase C-Reactive Protein Albumin Vancomycin Trough 04/24/21 04/24/21 04/24/21 12:07 12:14 12:14 WBC RBC Hgb Hct MCV MCH Seg Neuts % (Manual) Lymphocytes % (Manual) Nucleated RBC % Lymphocytes # (Manual) ABG pO2 ABG HCO3 ABG Base Excess ABG Hemoglobin VBG pH Oxyhemoglobin Sodium Potassium 3.2 L Chloride 108.7 H Carbon Dioxide 16 L BUN 24 H Creatinine Glucose 160 H POC Glucose 142 H Hemoglobin A1c Lactic Acid 2.50 H* Calcium 10.5 H Phosphorus 0.70 L* D Magnesium Alkaline Phosphatase C-Reactive Protein Albumin Vancomycin Trough 04/24/21 04/24/21 04/24/21 13:02 14:00 15:14 WBC RBC Hgb Hct MCV MCH Seg Neuts % (Manual) Lymphocytes % (Manual) Nucleated RBC % Lymphocytes # (Manual) ABG pO2 ABG HCO3 ABG Base Excess ABG Hemoglobin VBG pH Oxyhemoglobin Sodium Potassium Chloride Carbon Dioxide BUN Creatinine Glucose POC Glucose 138 H 150 H 145 H Hemoglobin A1c Lactic Acid Calcium Phosphorus Magnesium Alkaline Phosphatase C-Reactive Protein Albumin Vancomycin Trough 04/24/21 04/24/21 04/24/21 16:07 17:11 18:12 WBC RBC Hgb Hct MCV MCH Seg Neuts % (Manual) Lymphocytes % (Manual) Nucleated RBC % Lymphocytes # (Manual) ABG pO2 ABG HCO3 ABG Base Excess ABG Hemoglobin VBG pH Oxyhemoglobin Sodium Potassium Chloride Carbon Dioxide BUN Creatinine Glucose POC Glucose 148 H 156 H 153 H Hemoglobin A1c Lactic Acid Calcium Phosphorus Magnesium Alkaline Phosphatase C-Reactive Protein Albumin Vancomycin Trough 04/24/21 04/24/21 04/24/21 18:24 19:55 20:55 WBC RBC Hgb Hct MCV MCH Seg Neuts % (Manual) Lymphocytes % (Manual) Nucleated RBC % Lymphocytes # (Manual) ABG pO2 ABG HCO3 ABG Base Excess ABG Hemoglobin VBG pH Oxyhemoglobin Sodium Potassium Chloride 109.2 H Carbon Dioxide 15 L BUN 22 H Creatinine Glucose 159 H POC Glucose 176 H 146 H Hemoglobin A1c Lactic Acid Calcium Phosphorus 1.80 L D Magnesium Alkaline Phosphatase C-Reactive Protein 24.30 H Albumin Vancomycin Trough 04/24/21 04/24/21 04/24/21 22:04 23:02 23:13 WBC RBC Hgb Hct MCV MCH Seg Neuts % (Manual) Lymphocytes % (Manual) Nucleated RBC % Lymphocytes # (Manual) ABG pO2 ABG HCO3 ABG Base Excess ABG Hemoglobin VBG pH Oxyhemoglobin Sodium Potassium Chloride Carbon Dioxide BUN Creatinine Glucose POC Glucose 169 H 144 H Hemoglobin A1c Lactic Acid 3.10 H* Calcium Phosphorus Magnesium Alkaline Phosphatase C-Reactive Protein Albumin Vancomycin Trough 04/25/21 04/25/21 04/25/21 00:05 01:28 02:03 WBC RBC Hgb Hct MCV MCH Seg Neuts % (Manual) Lymphocytes % (Manual) Nucleated RBC % Lymphocytes # (Manual) ABG pO2 ABG HCO3 ABG Base Excess ABG Hemoglobin VBG pH Oxyhemoglobin Sodium Potassium Chloride Carbon Dioxide BUN Creatinine Glucose POC Glucose 150 H 142 H 148 H Hemoglobin A1c Lactic Acid Calcium Phosphorus Magnesium Alkaline Phosphatase C-Reactive Protein Albumin Vancomycin Trough 04/25/21 04/25/21 04/25/21 03:07 04:17 05:48 WBC RBC Hgb Hct MCV MCH Seg Neuts % (Manual) Lymphocytes % (Manual) Nucleated RBC % Lymphocytes # (Manual) ABG pO2 ABG HCO3 ABG Base Excess ABG Hemoglobin VBG pH Oxyhemoglobin Sodium Potassium Chloride Carbon Dioxide BUN Creatinine Glucose POC Glucose 161 H 158 H 136 H Hemoglobin A1c Lactic Acid Calcium Phosphorus Magnesium Alkaline Phosphatase C-Reactive Protein Albumin Vancomycin Trough 04/25/21 04/25/21 04/25/21 06:52 07:58 08:10 WBC RBC Hgb 9.5 L Hct 28.8 L MCV MCH 26 L Seg Neuts % (Manual) 33.0 L Lymphocytes % (Manual) Nucleated RBC % Lymphocytes # (Manual) 1.1 L ABG pO2 ABG HCO3 ABG Base Excess ABG Hemoglobin VBG pH Oxyhemoglobin Sodium Potassium Chloride Carbon Dioxide BUN Creatinine Glucose POC Glucose 137 H 143 H Hemoglobin A1c Lactic Acid Calcium Phosphorus Magnesium Alkaline Phosphatase C-Reactive Protein Albumin Vancomycin Trough 04/25/21 04/25/21 04/25/21 08:10 08:10 08:53 WBC RBC Hgb Hct MCV MCH Seg Neuts % (Manual) Lymphocytes % (Manual) Nucleated RBC % Lymphocytes # (Manual) ABG pO2 ABG HCO3 ABG Base Excess ABG Hemoglobin VBG pH Oxyhemoglobin Sodium Potassium 3.3 L Chloride 109.0 H Carbon Dioxide 16 L BUN 23 H Creatinine Glucose 151 H POC Glucose 132 H Hemoglobin A1c Lactic Acid 2.10 H* Calcium Phosphorus 2.20 L D Magnesium 1.60 L Alkaline Phosphatase C-Reactive Protein Albumin Vancomycin Trough 04/25/21 04/25/21 04/25/21 09:59 11:20 11:20 WBC RBC Hgb Hct MCV MCH Seg Neuts % (Manual) Lymphocytes % (Manual) Nucleated RBC % Lymphocytes # (Manual) ABG pO2 73.2 L ABG HCO3 16.2 L ABG Base Excess -7.1 L ABG Hemoglobin 8.7 L VBG pH Oxyhemoglobin 94.8 L Sodium Potassium Chloride Carbon Dioxide BUN Creatinine Glucose POC Glucose 141 H 141 H Hemoglobin A1c Lactic Acid Calcium Phosphorus Magnesium Alkaline Phosphatase C-Reactive Protein Albumin Vancomycin Trough 04/25/21 04/25/21 04/25/21 12:04 12:26 13:04 WBC RBC Hgb Hct MCV MCH Seg Neuts % (Manual) Lymphocytes % (Manual) Nucleated RBC % Lymphocytes # (Manual) ABG pO2 ABG HCO3 ABG Base Excess ABG Hemoglobin VBG pH Oxyhemoglobin Sodium Potassium 3.4 L Chloride 109.5 H Carbon Dioxide 14 L BUN 21 H Creatinine Glucose 155 H POC Glucose 129 H 135 H Hemoglobin A1c Lactic Acid Calcium Phosphorus 1.90 L Magnesium 1.60 L Alkaline Phosphatase C-Reactive Protein Albumin Vancomycin Trough 04/25/21 04/25/21 04/25/21 13:58 15:09 16:00 WBC RBC Hgb Hct MCV MCH Seg Neuts % (Manual) Lymphocytes % (Manual) Nucleated RBC % Lymphocytes # (Manual) ABG pO2 ABG HCO3 ABG Base Excess ABG Hemoglobin VBG pH Oxyhemoglobin Sodium Potassium Chloride Carbon Dioxide BUN Creatinine Glucose POC Glucose 140 H 134 H 135 H Hemoglobin A1c Lactic Acid Calcium Phosphorus Magnesium Alkaline Phosphatase C-Reactive Protein Albumin Vancomycin Trough 04/25/21 04/25/21 04/25/21 18:56 18:58 18:58 WBC RBC Hgb Hct MCV MCH Seg Neuts % (Manual) Lymphocytes % (Manual) Nucleated RBC % Lymphocytes # (Manual) ABG pO2 ABG HCO3 ABG Base Excess ABG Hemoglobin VBG pH Oxyhemoglobin Sodium Potassium Chloride 110.1 H Carbon Dioxide 13 L BUN 23 H Creatinine Glucose 206 H POC Glucose 170 H Hemoglobin A1c Lactic Acid 2.10 H* Calcium Phosphorus Magnesium 2.40 H Alkaline Phosphatase C-Reactive Protein Albumin Vancomycin Trough 04/25/21 04/25/21 04/25/21 19:52 20:53 21:54 WBC RBC Hgb Hct MCV MCH Seg Neuts % (Manual) Lymphocytes % (Manual) Nucleated RBC % Lymphocytes # (Manual) ABG pO2 ABG HCO3 ABG Base Excess ABG Hemoglobin VBG pH Oxyhemoglobin Sodium Potassium Chloride Carbon Dioxide BUN Creatinine Glucose POC Glucose 162 H 171 H 139 H Hemoglobin A1c Lactic Acid Calcium Phosphorus Magnesium Alkaline Phosphatase C-Reactive Protein Albumin Vancomycin Trough 04/25/21 04/26/21 04/26/21 22:53 00:03 00:38 WBC RBC Hgb Hct MCV MCH Seg Neuts % (Manual) Lymphocytes % (Manual) Nucleated RBC % Lymphocytes # (Manual) ABG pO2 ABG HCO3 ABG Base Excess ABG Hemoglobin VBG pH Oxyhemoglobin Sodium Potassium Chloride 112.6 H Carbon Dioxide 14 L BUN 22 H Creatinine Glucose 149 H POC Glucose 140 H 129 H Hemoglobin A1c Lactic Acid Calcium Phosphorus Magnesium 2.40 H Alkaline Phosphatase C-Reactive Protein Albumin Vancomycin Trough 04/26/21 04/26/21 04/26/21 01:00 01:56 02:54 WBC RBC Hgb Hct MCV MCH Seg Neuts % (Manual) Lymphocytes % (Manual) Nucleated RBC % Lymphocytes # (Manual) ABG pO2 ABG HCO3 ABG Base Excess ABG Hemoglobin VBG pH Oxyhemoglobin Sodium Potassium Chloride Carbon Dioxide BUN Creatinine Glucose POC Glucose 126 H 137 H 132 H Hemoglobin A1c Lactic Acid Calcium Phosphorus Magnesium Alkaline Phosphatase C-Reactive Protein Albumin Vancomycin Trough 04/26/21 04/26/21 04/26/21 04:04 05:02 05:02 WBC RBC 3.44 L Hgb 8.9 L Hct 26.9 L MCV 78 L MCH 26 L Seg Neuts % (Manual) Lymphocytes % (Manual) Nucleated RBC % Lymphocytes # (Manual) ABG pO2 ABG HCO3 ABG Base Excess ABG Hemoglobin VBG pH Oxyhemoglobin Sodium Potassium Chloride 114.8 H Carbon Dioxide 14 L BUN 22 H Creatinine Glucose 129 H POC Glucose 130 H Hemoglobin A1c Lactic Acid Calcium Phosphorus Magnesium Alkaline Phosphatase C-Reactive Protein Albumin Vancomycin Trough 04/26/21 04/26/21 04/26/21 05:03 06:06 06:53 WBC RBC Hgb Hct MCV MCH Seg Neuts % (Manual) Lymphocytes % (Manual) Nucleated RBC % Lymphocytes # (Manual) ABG pO2 ABG HCO3 ABG Base Excess ABG Hemoglobin VBG pH Oxyhemoglobin Sodium Potassium Chloride Carbon Dioxide BUN Creatinine Glucose POC Glucose 115 H 129 H 121 H Hemoglobin A1c Lactic Acid Calcium Phosphorus Magnesium Alkaline Phosphatase C-Reactive Protein Albumin Vancomycin Trough 04/26/21 04/26/21 04/26/21 07:58 09:09 10:05 WBC RBC Hgb Hct MCV MCH Seg Neuts % (Manual) Lymphocytes % (Manual) Nucleated RBC % Lymphocytes # (Manual) ABG pO2 ABG HCO3 ABG Base Excess ABG Hemoglobin VBG pH Oxyhemoglobin Sodium Potassium Chloride Carbon Dioxide BUN Creatinine Glucose POC Glucose 124 H 125 H 131 H Hemoglobin A1c Lactic Acid Calcium Phosphorus Magnesium Alkaline Phosphatase C-Reactive Protein Albumin Vancomycin Trough 04/26/21 04/26/21 04/26/21 10:52 12:00 13:17 WBC RBC Hgb Hct MCV MCH Seg Neuts % (Manual) Lymphocytes % (Manual) Nucleated RBC % Lymphocytes # (Manual) ABG pO2 ABG HCO3 ABG Base Excess ABG Hemoglobin VBG pH Oxyhemoglobin Sodium Potassium Chloride Carbon Dioxide BUN Creatinine Glucose POC Glucose 129 H 126 H 130 H Hemoglobin A1c Lactic Acid Calcium Phosphorus Magnesium Alkaline Phosphatase C-Reactive Protein Albumin Vancomycin Trough 04/26/21 04/26/21 04/26/21 14:06 14:11 15:07 WBC RBC Hgb Hct MCV MCH Seg Neuts % (Manual) Lymphocytes % (Manual) Nucleated RBC % Lymphocytes # (Manual) ABG pO2 ABG HCO3 ABG Base Excess ABG Hemoglobin VBG pH Oxyhemoglobin Sodium Potassium 5.3 H D Chloride 112.2 H Carbon Dioxide 14 L BUN 22 H Creatinine Glucose 116 H POC Glucose 132 H 130 H Hemoglobin A1c Lactic Acid Calcium Phosphorus Magnesium 2.40 H Alkaline Phosphatase C-Reactive Protein Albumin Vancomycin Trough 04/26/21 04/26/21 04/26/21 15:20 16:05 17:55 WBC RBC Hgb Hct MCV MCH Seg Neuts % (Manual) Lymphocytes % (Manual) Nucleated RBC % Lymphocytes # (Manual) ABG pO2 ABG HCO3 ABG Base Excess ABG Hemoglobin VBG pH Oxyhemoglobin Sodium Potassium Chloride 112.4 H Carbon Dioxide 13 L BUN 22 H Creatinine Glucose 143 H POC Glucose 156 H 194 H Hemoglobin A1c Lactic Acid Calcium Phosphorus Magnesium Alkaline Phosphatase C-Reactive Protein Albumin Vancomycin Trough 04/26/21 04/27/21 04/27/21 19:27 00:02 04:03 WBC RBC 3.20 L Hgb 8.1 L Hct 25.1 L MCV 78 L MCH 25 L Seg Neuts % (Manual) Lymphocytes % (Manual) Nucleated RBC % Lymphocytes # (Manual) ABG pO2 ABG HCO3 ABG Base Excess ABG Hemoglobin VBG pH Oxyhemoglobin Sodium Potassium Chloride Carbon Dioxide BUN Creatinine Glucose POC Glucose 261 H Hemoglobin A1c Lactic Acid Calcium Phosphorus Magnesium Alkaline Phosphatase C-Reactive Protein Albumin Vancomycin Trough 38.2 H 04/27/21 04/27/21 04/27/21 04:03 05:33 09:51 WBC RBC Hgb Hct MCV MCH Seg Neuts % (Manual) Lymphocytes % (Manual) Nucleated RBC % Lymphocytes # (Manual) ABG pO2 ABG HCO3 ABG Base Excess ABG Hemoglobin VBG pH Oxyhemoglobin Sodium Potassium Chloride 112.4 H Carbon Dioxide 12 L BUN 30 H Creatinine Glucose 330 H POC Glucose 311 H 335 H Hemoglobin A1c Lactic Acid Calcium Phosphorus Magnesium Alkaline Phosphatase C-Reactive Protein Albumin Vancomycin Trough 04/27/21 04/27/21 04/27/21 13:15 16:43 18:10 WBC RBC Hgb Hct MCV MCH Seg Neuts % (Manual) Lymphocytes % (Manual) Nucleated RBC % Lymphocytes # (Manual) ABG pO2 ABG HCO3 ABG Base Excess ABG Hemoglobin VBG pH Oxyhemoglobin Sodium Potassium Chloride Carbon Dioxide BUN Creatinine Glucose POC Glucose 291 H 218 H 177 H Hemoglobin A1c Lactic Acid Calcium Phosphorus Magnesium Alkaline Phosphatase C-Reactive Protein Albumin Vancomycin Trough 04/27/21 04/28/21 04/28/21 22:08 02:15 04:41 WBC RBC 3.50 L Hgb 8.9 L Hct 27.3 L MCV 78 L MCH 26 L Seg Neuts % (Manual) Lymphocytes % (Manual) Nucleated RBC % Lymphocytes # (Manual) ABG pO2 ABG HCO3 ABG Base Excess ABG Hemoglobin VBG pH Oxyhemoglobin Sodium Potassium Chloride Carbon Dioxide BUN Creatinine Glucose POC Glucose 136 H 152 H Hemoglobin A1c Lactic Acid Calcium Phosphorus Magnesium Alkaline Phosphatase C-Reactive Protein Albumin Vancomycin Trough 04/28/21 04/28/21 04/28/21 04:41 06:03 08:42 WBC RBC Hgb Hct MCV MCH Seg Neuts % (Manual) Lymphocytes % (Manual) Nucleated RBC % Lymphocytes # (Manual) ABG pO2 ABG HCO3 ABG Base Excess ABG Hemoglobin VBG pH Oxyhemoglobin Sodium Potassium Chloride 113.5 H Carbon Dioxide 16 L BUN 37 H Creatinine Glucose 167 H POC Glucose 174 H 212 H Hemoglobin A1c Lactic Acid Calcium Phosphorus Magnesium Alkaline Phosphatase C-Reactive Protein Albumin Vancomycin Trough 04/28/21 04/28/21 04/28/21 11:34 17:15 21:58 WBC RBC Hgb Hct MCV MCH Seg Neuts % (Manual) Lymphocytes % (Manual) Nucleated RBC % Lymphocytes # (Manual) ABG pO2 ABG HCO3 ABG Base Excess ABG Hemoglobin VBG pH Oxyhemoglobin Sodium Potassium Chloride Carbon Dioxide BUN Creatinine Glucose POC Glucose 228 H 236 H 208 H Hemoglobin A1c Lactic Acid Calcium Phosphorus Magnesium Alkaline Phosphatase C-Reactive Protein Albumin Vancomycin Trough 04/29/21 04/29/21 04/29/21 01:55 04:00 04:00 WBC 11.7 H RBC 3.35 L Hgb 8.5 L Hct 26.4 L MCV MCH 25 L Seg Neuts % (Manual) Lymphocytes % (Manual) Nucleated RBC % Lymphocytes # (Manual) ABG pO2 ABG HCO3 ABG Base Excess ABG Hemoglobin VBG pH Oxyhemoglobin Sodium 146 H Potassium Chloride 112.4 H Carbon Dioxide BUN 41 H Creatinine Glucose 115 H POC Glucose 137 H Hemoglobin A1c Lactic Acid Calcium Phosphorus Magnesium Alkaline Phosphatase C-Reactive Protein Albumin Vancomycin Trough 04/29/21 04/29/21 05:16 11:02 WBC RBC Hgb Hct MCV MCH Seg Neuts % (Manual) Lymphocytes % (Manual) Nucleated RBC % Lymphocytes # (Manual) ABG pO2 ABG HCO3 ABG Base Excess ABG Hemoglobin VBG pH Oxyhemoglobin Sodium Potassium Chloride Carbon Dioxide BUN Creatinine Glucose POC Glucose 114 H 144 H Hemoglobin A1c Lactic Acid Calcium Phosphorus Magnesium Alkaline Phosphatase C-Reactive Protein Albumin Vancomycin Trough Allied health notes reviewed: nursing
[2021-04-29] MEDS: FAMOTIDINE 20 MG TAB FEEDTUBE SCH (12:21)
--- NOTE | 2021-04-29 12:58 | Progress Note ---
Assessment and Plan Cultures: 04/24/2021 Blood culture: GBS Blood culture 04/26/2021: No growth A/P: 51 yo F with DM2, HTN, morbid obesity presented with sepsis #Acute sepsis: secondary to group B streptococcus bacteremia, source could be the R knee. #Group B streptococcus bacteremia: Reports a history of previous right knee septic arthritis and has been treated with antibiotics at least twice in the past. X-ray shows large joint effusion. TTE without any evidence of valvular vegetations/endocarditis. #DM2: tight glycemic control for best outcomes. #Right knee wound/?septic arthritis Recs: -Continue ceftriaxone 2g q24h -Reports a history of previous right knee septic arthritis and has been treated with antibiotics at least twice in the past. X-ray shows large joint effusion. Follow-up orthopedics consult for arthrocentesis, if it shows signs of chronic septic arthritis, patient will need surgical intervention. Note that patient has been on IV antibiotics for the last several days, hence cell count from synovial fluid may not necessarily meet septic arthritis criteria Discussed with KIAN Lugo MD, FACP, [facility] O: [phone] F: [phone] Subjective Date of service: 04/29/21 Principal diagnosis: HAGMA; DKA; AMS; Obesity; Osteoarthritis; Hypercalcemia Interval history: No fever. Denies any specific complaints, has NG tube. Reports a history of previous right knee septic arthritis and has been treated with antibiotics at least twice in the past. Objective - Exam Narrative Exam: Physical Exam: Constitutional: Alert, cooperative. No acute distress Head, Ears, Nose: Normocephalic, atraumatic. External ears, nose normal Eyes: Conjunctivae/corneas clear. No icterus. No ptosis. Neck: Supple, no meningeal signs Cardiovascular: S1, S2 + Respiratory: Good air entry, clear to auscultation bilaterally GI: Soft, non-tender; bowel sounds normal. No peritoneal signs Musculoskeletal: Right knee with mild swelling and tenderness, superficial wound present Skin: No rash or abscess Hem/Lymphatic: No palpable cervical or supraclavicular nodes. No lymphangitis Psych: Mood ok. Affect normal Neurological: Awake, alert, oriented. No gross abnormality - Constitutional Vitals: Vital Signs Temp Pulse Resp BP Pulse Ox 98.2 F 94 H 29 H 129/76 96 04/29/21 08:00 04/29/21 12:00 04/29/21 12:00 04/29/21 12:00 04/29/21 12:00 Temperature -Last 24 Hours Temperature 98.2 F Temperature 99.2 F Temperature 98.6 F Temperature 99.2 F Temperature 98.5 F - Labs CBC & Chem 7: 04/29/21 04:00 04/29/21 04:00 Labs: Abnormal lab results 04/28/21 04/28/21 04/29/21 Range/Units 17:15 21:58 01:55 WBC (4.5-11.0) K/mm3 RBC (3.65-5.03) M/mm3 Hgb (10.1-14.3) gm/dl Hct (30.3-42.9) % MCH (28-32) pg Sodium (137-145) mmol/L Chloride (98-107) mmol/L BUN (7-17) mg/dL Glucose (65-100) mg/dL POC Glucose 236 H 208 H 137 H (70-105) mg/dL 04/29/21 04/29/21 04/29/21 Range/Units 04:00 04:00 05:16 WBC 11.7 H (4.5-11.0) K/mm3 RBC 3.35 L (3.65-5.03) M/mm3 Hgb 8.5 L (10.1-14.3) gm/dl Hct 26.4 L (30.3-42.9) % MCH 25 L (28-32) pg Sodium 146 H (137-145) mmol/L Chloride 112.4 H (98-107) mmol/L BUN 41 H (7-17) mg/dL Glucose 115 H (65-100) mg/dL POC Glucose 114 H (70-105) mg/dL 04/29/21 Range/Units 11:02 WBC (4.5-11.0) K/mm3 RBC (3.65-5.03) M/mm3 Hgb (10.1-14.3) gm/dl Hct (30.3-42.9) % MCH (28-32) pg Sodium (137-145) mmol/L Chloride (98-107) mmol/L BUN (7-17) mg/dL Glucose (65-100) mg/dL POC Glucose 144 H (70-105) mg/dL
[2021-04-29] MEDS ORDERED: SODIUM BICARBONATE 325 MG TAB FEEDTUBE PRN (15:42)
[2021-04-29] MEDS ORDERED: SIMPLE SYRUP 15 ML FEEDTUBE PRN ×2 (15:42)
[2021-04-29] MEDS ORDERED: LIPASE 10,500/PROTEASE 25,000/AMYLASE 43,750 (UNITS) DR CAP FEEDTUBE PRN (15:42)
[2021-04-29] MEDS ORDERED: ALBUTEROL 2.5 MG/3 ML NEBU IH SCH (16:00)
[2021-04-29] MEDS ORDERED: SODIUM CHLORIDE 0.9% 250ML 250 ML ONE (16:29)
[2021-04-29] MEDS: cefTRIAXone/NS 2 GM/100 ML 2 GM/100 ML BAG IV SCH (16:37)
--- NOTE | 2021-04-29 17:57 | Progress Note ---
Assessment and Plan Assessment and plan: This is a 51-year-old female with DM, noncompliance, obesity, arthritis and right knee surgery admitted for DKA Neuro: Acute metabolic encephalopathy (improved significantly) -Reorientation as needed -Avoid delirium -Maintain sleep-wake cycle -PT OT consulted, appreciate recommendation Cardio: NAD -Blood pressure monitoring per protocol -Echocardiogram shows mildly dilated right heart chamber, mild to moderate TR, moderate pulmonary hypertension, RVSP 50-55, LVEF 45-50 Respiratory: Acute hypoxic respiratory failure -Currently on nasal cannula -S/p Ventimask -CCM consulted, appreciate recommendations -Aggressive oral and pulmonary hygiene -Scheduled duo nebs with CPT SPO2 monitoring GI: Morbid obesity -Nutrition consult for tube feeding -ST consult for speech evaluation -PPI Pepcid -BR: Senokot -24 hours +2909 mL : Hypernatremia, hyperchloremia -Increasing free water flushes -Trend BMP -Purwick in place ID: Sepsis, group B Streptococcus bacteremia, h/o right septic arthritis -Infectious disease consulted, appreciate recommendations -ABX therapy per ID: Ceftriaxone 2 g every 24 hours -Right knee x-ray shows large joint effusion -Orthopedic consult for arthrocentesis -Continue ceftriaxone 2g q24h -TTE without evidence of vegetations/endocarditis -Monitor fever and temp curve -Follow-up cultures Heme: Leukocytosis -Lovenox subcu -SCDs to bilateral actions while in bed -Trend CBC -Transfuse hemoglobin less than 7 Endo: S/p DKA, h/o uncontrolled DM -Hemoglobin A1c 18.3 -S/p DKA protocol and insulin drip -SSI -Long-acting insulin -Avoid hypoglycemia -Accu-Cheks every 6 The high probability of a clinically significant, sudden or life threatening deterioration of the [multi] system(s) required my full and direct attention, intervention and personal management. The aggregate critical care time was [60] minutes. This time is in addition to time spent performing reported procedures but includes the following: [x] Data Review and interpretation [x] Patient assessment and monitoring of vital signs [x] Documentation [x] Medication orders and management Disposition Plan: pending imcu transfer Total Time Spent with Patient (Minutes): 60 History Interval history: This is a 51-year-old female with DM, OA, medication noncompliance, obesity who presented to emergency department on 04/23 with complaints of weakness, elevated blood glucose levels, nausea, polydipsia, polyuria and diminished oral intake over the past week with worsening symptoms over the past 2 days. Patient acknowledges noncompliance with oral antihyperglycemic therapy. Patient was seen and evaluated in the emergency department and found to have lab work consistent with diabetic ketoacidosis, metabolic encephalopathy, metabolic acidosis and volume depletion. Patient was admitted to the hospital service to the ICU initiated DKA protocol with CCM consult. 04/24/21- Patient remains on DKA protocol. Still very lethargic this am, following simple commands. Rt. knee wound and swelling noted, and nursing staff also reported thick, white vaginal discharge. C/f sepsis, blood culture ordered, this am UA noted. Will start patient on PO difflucan for possible yeast infection, pending culture data. Anion GAP is still 18 this am, will continue DKA protocol for now. Continue to monitor electrolytes, serial BMP ordered. 04/25/21- Patient appears to be in distress this am, now on 3L NC. Lactic acidos is worsen overnight, X1L LR bolus adminstered. Ordered placed for stat ABGs. Blood culture growing GPC 3/4 bottles, patient remains afebrile with no leukocytosis. IV abx was escalated, ID consulted. Ortho consult is still pending, order placed for XR of the Rt. knee. Given patient worsen condition and high anio, gap, will continue insulin gtt for now. Low K and mg was repleted. Continue serial BMP,mg, and phosp 04/26/21- Patient appears more alert and awake this am, talkative, and following commands. Remains on DKA protocol, gap is closedX2, will transition patient to SSI and basal insulin and initiate enteral nutrition. Patient remains afebrile overnight, continue IV Abx per ID. 04/27/21- TASHA overnight. Patient mentation continue to improve. Worsening hyperglycemia, patient is tolerating TF. 70/30 added BID and SSI was adjusted to high dose Q4hrs. D/W CCM patient is stable for transfer to [facility] 04/28/21- Patient continue to improve. Remains drowsy this am, however, easily arousable. Now on 4L NC, still requiring Q4hrs NT suction due to increased secretions and weak cough. Continue to wean O2 supplement as tolerated, F/U CXR in the am. Continue IV Abx per ID. 04/29: Patient is awake and alert with strong cough and able to clear own airway. Ortho consult for right knee aspiration pending. Hospitalist Physical - Constitutional Vitals: Temp Pulse Resp BP Pulse Ox 98 F 95 H 30 H 122/54 100 04/29/21 12:00 04/29/21 15:00 04/29/21 15:00 04/29/21 15:00 04/29/21 15:03 General appearance: Present: no acute distress, obese, other HEART Score - HEART Score Troponin: Troponin T < 0.010 ng/mL (0.00-0.029) 04/23/21 10:33 Results - Labs CBC & Chem 7: 04/29/21 04:00 04/29/21 04:00 Labs: Laboratory Last Values WBC 11.7 K/mm3 (4.5-11.0) H 04/29/21 04:00 RBC 3.35 M/mm3 (3.65-5.03) L 04/29/21 04:00 Hgb 8.5 gm/dl (10.1-14.3) L 04/29/21 04:00 Hct 26.4 % (30.3-42.9) L 04/29/21 04:00 MCV 79 fl (79-97) 04/29/21 04:00 MCH 25 pg (28-32) L 04/29/21 04:00 MCHC 32 % (30-34) 04/29/21 04:00 RDW 15.0 % (13.2-15.2) 04/29/21 04:00 Plt Count 158 K/mm3 (140-440) 04/29/21 04:00 Add Manual Diff Complete 04/25/21 08:10 Total Counted 100 04/25/21 08:10 Seg Neutrophils % Home Care Coordinator 04/23/21 10:33 Seg Neuts % (Manual) 33.0 % (40.0-70.0) L 04/25/21 08:10 Band Neutrophils % 23.0 % 04/25/21 08:10 Lymphocytes % (Manual) 19.0 % (13.4-35.0) 04/25/21 08:10 Reactive Lymphs % (Man) 1.0 % 04/25/21 08:10 Monocytes % (Manual) 1.0 % (0.0-7.3) 04/25/21 08:10 Eosinophils % (Manual) 1.0 % (0.0-4.3) 04/25/21 08:10 Metamyelocytes % 3.0 % 04/23/21 10:33 Myelocytes % 22.0 % 04/25/21 08:10 Nucleated RBC % Not Reportable 04/25/21 08:10 Seg Neutrophils # Man 1.9 K/mm3 (1.8-7.7) 04/25/21 08:10 Band Neutrophils # 1.3 K/mm3 04/25/21 08:10 Lymphocytes # (Manual) 1.1 K/mm3 (1.2-5.4) L 04/25/21 08:10 Abs React Lymphs (Man) 0.1 K/mm3 04/25/21 08:10 Monocytes # (Manual) 0.1 K/mm3 (0.0-0.8) 04/25/21 08:10 Eosinophils # (Manual) 0.1 K/mm3 (0.0-0.4) 04/25/21 08:10 Basophils # (Manual) 0.0 K/mm3 (0.0-0.1) 04/25/21 08:10 Metamyelocytes # 0.0 K/mm3 04/25/21 08:10 Myelocytes # 1.3 K/mm3 04/25/21 08:10 Promyelocytes # 0.0 K/mm3 04/25/21 08:10 Blast Cells # 0.0 K/mm3 04/25/21 08:10 WBC Morphology Not Reportable 04/25/21 08:10 Hypersegmented Neuts Not Reportable 04/25/21 08:10 Hyposegmented Neuts Not Reportable 04/25/21 08:10 Hypogranular Neuts Not Reportable 04/25/21 08:10 Smudge Cells Not Reportable 04/25/21 08:10 Toxic Granulation Not Reportable 04/25/21 08:10 Toxic Vacuolation Not Reportable 04/25/21 08:10 Dohle Bodies Not Reportable 04/25/21 08:10 Pelger-Huet Anomaly Not Reportable 04/25/21 08:10 Thierry Rods Not Reportable 04/25/21 08:10 Platelet Estimate Consistent w auto 04/25/21 08:10 Clumped Platelets Not Reportable 04/25/21 08:10 Plt Clumps, EDTA Not Reportable 04/25/21 08:10 Large Platelets Not Reportable 04/25/21 08:10 Giant Platelets Not Reportable 04/25/21 08:10 Platelet Satelliting Not Reportable 04/25/21 08:10 Plt Morphology Comment Not Reportable 04/25/21 08:10 RBC Morphology Not Reportable 04/25/21 08:10 Dimorphic RBCs Not Reportable 04/25/21 08:10 Polychromasia Not Reportable 04/25/21 08:10 Hypochromasia 1+ 04/25/21 08:10 Poikilocytosis Not Reportable 04/25/21 08:10 Anisocytosis Not Reportable 04/25/21 08:10 Microcytosis Not Reportable 04/25/21 08:10 Macrocytosis Not Reportable 04/25/21 08:10 Spherocytes Not Reportable 04/25/21 08:10 Pappenheimer Bodies Not Reportable 04/25/21 08:10 Sickle Cells Not Reportable 04/25/21 08:10 Target Cells Not Reportable 04/25/21 08:10 Tear Drop Cells Not Reportable 04/25/21 08:10 Ovalocytes Not Reportable 04/25/21 08:10 Helmet Cells Not Reportable 04/25/21 08:10 [place] Bodies Not Reportable 04/25/21 08:10 [place] Rings Not Reportable 04/25/21 08:10 Kamari Cells Not Reportable 04/25/21 08:10 Bite Cells Not Reportable 04/25/21 08:10 Crenated Cell Not Reportable 04/25/21 08:10 Elliptocytes Not Reportable 04/25/21 08:10 Acanthocytes (Spur) Not Reportable 04/25/21 08:10 Rouleaux Not Reportable 04/25/21 08:10 Hemoglobin C Crystals Not Reportable 04/25/21 08:10 Schistocytes Not Reportable 04/25/21 08:10 Malaria parasites Not Reportable 04/25/21 08:10 Juan Bodies Not Reportable 04/25/21 08:10 Hem Pathologist Commnt No 04/25/21 08:10 ABG pH 7.426 pH Units (7.350-7.450) 04/25/21 11:20 ABG pCO2 25.3 mm Hg 04/25/21 11:20 ABG pO2 73.2 mm Hg (80.0-90.0) L 04/25/21 11:20 ABG HCO3 16.2 mmol/L (20.0-26.0) L 04/25/21 11:20 ABG O2 Saturation 96.9 % (95.0-99.0) 04/25/21 11:20 ABG O2 Content 11.6 (0.0-44) 04/25/21 11:20 ABG Base Excess -7.1 mmol/L (-2.0-3.0) L 04/25/21 11:20 ABG Hemoglobin 8.7 gm/dl (12.0-16.0) L 04/25/21 11:20 ABG Carboxyhemoglobin 1.6 % (0.0-5.0) 04/25/21 11:20 ABG Methemoglobin 0.6 % (0.0-1.5) 04/25/21 11:20 VBG pH 7.180 (7.320-7.420) L* 04/23/21 10:33 Oxyhemoglobin 94.8 % (95.0-99.0) L 04/25/21 11:20 FiO2 28 % 04/25/21 11:20 Sodium 146 mmol/L (137-145) H 04/29/21 04:00 Potassium 4.1 mmol/L (3.6-5.0) 04/29/21 04:00 Chloride 112.4 mmol/L (98-107) H 04/29/21 04:00 Carbon Dioxide 23 mmol/L (22-30) D 04/29/21 04:00 Anion Gap 15 mmol/L 04/29/21 04:00 BUN 41 mg/dL (7-17) H 04/29/21 04:00 Creatinine 1.0 mg/dL (0.6-1.2) 04/29/21 04:00 Estimated GFR > 60 ml/min 04/29/21 04:00 BUN/Creatinine Ratio 41 % 04/29/21 04:00 Glucose 115 mg/dL (65-100) H 04/29/21 04:00 POC Glucose 144 mg/dL (70-105) H 04/29/21 11:02 Hemoglobin A1c 18.3 % (4-6) H 04/24/21 04:16 Lactic Acid 1.70 mmol/L (0.7-2.0) 04/26/21 05:02 Uric Acid 7.5 mg/dL (3.5-7.6) 04/24/21 12:14 Calcium 8.6 mg/dL (8.4-10.2) 04/29/21 04:00 Phosphorus 3.50 mg/dL (2.5-4.5) 04/27/21 04:03 Magnesium 2.30 mg/dL (1.7-2.3) 04/27/21 04:03 Total Bilirubin 0.60 mg/dL (0.1-1.2) 04/23/21 10:33 AST 10 units/L (5-40) 04/23/21 10:33 ALT 9 units/L (7-56) 04/23/21 10:33 Alkaline Phosphatase 130 units/L (35-129) H 04/23/21 10:33 Ammonia 37.0 umol/L (25-60) 04/23/21 10:33 Total Creatine Kinase 83 units/L (30-135) 04/23/21 10:33 Troponin T < 0.010 ng/mL (0.00-0.029) 04/23/21 10:33 C-Reactive Protein 24.30 mg/dL (0.00-1.30) H 04/24/21 18:24 Total Protein 8.2 g/dL (6.3-8.2) 04/23/21 10:33 Albumin 2.9 g/dL (3.9-5) L 04/23/21 10:33 Albumin/Globulin Ratio 0.5 % 04/23/21 10:33 Procalcitonin 21.10 ng/mL (<0.15) 04/24/21 12:14 TSH 1.400 mlU/mL (0.270-4.200) 04/23/21 10:33 Urine Color Katie (Yellow) 04/27/21 16:16 Urine Turbidity Cloudy (Clear) 04/27/21 16:16 Urine pH 5.0 (5.0-7.0) 04/27/21 16:16 Ur Specific [place] 1.014 (1.003-1.030) 04/27/21 16:16 Urine Protein <15 mg/dl mg/dL (Negative) 04/27/21 16:16 Urine Glucose (UA) >=500 mg/dL (Negative) 04/27/21 16:16 Urine Ketones Neg mg/dL (Negative) 04/27/21 16:16 Urine Blood Neg (Negative) 04/27/21 16:16 Urine Nitrite Neg (Negative) 04/27/21 16:16 Urine Bilirubin Neg (Negative) 04/27/21 16:16 Urine Urobilinogen 2.0 mg/dL (<2.0) 04/27/21 16:16 Ur Leukocyte Esterase Neg (Negative) 04/27/21 16:16 Urine WBC (Auto) 1.0 /HPF (0.0-6.0) 04/27/21 16:16 Urine RBC (Auto) 1.0 /HPF (0.0-6.0) 04/27/21 16:16 U Epithel Cells (Auto) < 1.0 /HPF (0-13.0) 04/24/21 08:40 Urine Bacteria (Auto) 1+ /HPF (Negative) 04/27/21 16:16 Amorphous Crystals Few 04/27/21 16:16 Urine Yeast (Budding) 3+ /HPF 04/27/21 16:16 Vancomycin Trough 38.2 ug/mL (5.0-20.0) H 04/26/21 19:27 Coronavirus (PCR) Negative (Negative) 04/25/21 Unknown Microbiology: Microbiology 04/26/21 09:04 Peripheral/Venous Blood Culture - Preliminary NO GROWTH AFTER 72 HOURS 04/26/21 05:02 Peripheral/Venous Blood Culture - Preliminary NO GROWTH AFTER 72 HOURS Sanchez/IV: Voiding Method Indwelling Catheter Active Medications - Current Medications Current Medications: Generic Name Dose Route Start Last Admin Trade Name Freq PRN Reason Stop Dose Admin Acetaminophen 650 mg 04/23/21 11:54 Acetaminophen 325 Mg Tab PO Q6H PRN Pain MILD(1-3)/Fever >100.5/SMITH Albuterol 2.5 mg 04/29/21 20:00 Albuterol 2.5 Mg/3 Ml Nebu IH TIDRT AMIRA Lipase/Protease/Amylase 1 each 04/29/21 15:42 Lipase 10,500/Protease 25,000/Amylase 43,750 (Units) Dr Rodriguez FEEDTUBE PRN PRN For Clogged Feeding Tube Dextrose 50 ml 04/26/21 14:00 Dextrose 50% In Water (25gm) 50 Ml Syringe IV Q30MIN PRN Hypoglycemia Protocol Enoxaparin Sodium 40 mg 04/24/21 22:00 04/29/21 10:45 Enoxaparin 40 Mg/0.4 Ml Inj SUB-Q 40 mg BID AMIRA Administration Protocol Famotidine 20 mg 04/29/21 10:00 04/29/21 12:21 Famotidine 20 Mg Tab FEEDTUBE 20 mg DAILY AMIRA Administration Hydromorphone HCl 0.5 mg 04/23/21 11:54 04/27/21 16:29 Hydromorphone 1 Mg/1 Ml Inj IV 0.5 mg Q23H PRN Administration Pain , Severe (7-10) Ceftriaxone Sodium 2 gm in 100 mls @ 200 mls/hr 04/25/21 14:00 04/29/21 16:37 Rocephin/Ns 2 Gm/100 Ml IV 05/10/21 14:29 200 mls/hr Q24H AMIRA Administration Protocol Insulin Human Isoph/Insulin Regular 40 unit 04/27/21 17:00 04/29/21 16:35 Insulin Nph/Regular 70/30 Inj SUB-Q 40 unit BIDDIAB AMIRA Administration Insulin Human Lispro 0 unit 04/29/21 12:00 04/29/21 12:22 Insulin Lispro 100 Unit/Ml SUB-Q Not Given Q6HR [facility] Protocol Oxycodone/Acetaminophen 1 tab 04/23/21 11:54 Oxycodone /Acetaminophen 5-325mg Tab PO Q16H PRN Pain, Moderate (4-6) Senna 17.2 mg 04/25/21 22:00 04/28/21 22:13 Sennosides 8.6 Mg Tab PO 17.2 mg QHS AMIRA Administration Simple Syrup 15 ml 04/29/21 15:42 Simple Syrup 15 Ml FEEDTUBE PRN PRN Hypoglycemia Simple Syrup 30 ml 04/29/21 15:42 Simple Syrup 15 Ml FEEDTUBE PRN PRN Hypoglycemia Sodium Bicarbonate 325 mg 04/29/21 15:42 Sodium Bicarbonate 325 Mg Tab FEEDTUBE PRN PRN For Clogged Feeding Tube Sodium Chloride 10 ml 04/23/21 22:00 04/29/21 12:22 Sodium Chloride 0.9% 10 Ml Flush Syringe IV 10 ml BID AMIRA Administration Sodium Chloride 10 ml 04/23/21 11:54 04/24/21 11:15 Sodium Chloride 0.9% 10 Ml Flush Syringe IV 10 ml PRN PRN Administration LINE FLUSH Nutrition/Malnutrition Assess - Dietary Evaluation Nutrition/Malnutrition Findings: Nutrition Notes Start: 04/26/21 09:53 Freq: Status: Active Protocol: Document 04/29/21 15:44 HOANG (Rec: 04/29/21 15:50 HOANG [email or web address]) Nutrition Notes Initial or Follow up Reassessment Current Diagnosis Diabetes Other Pertinent Diagnosis DKA, OA Current Diet TF - Glucerna 1.2 at 83ml/hr Labs/Tests Na 146 BUN 41 POC Glu range since last assessment: 115-335 Pertinent Medications Reviewed Height 5 ft 8 in Weight 158.6 kg [place] Body Weight (kg) 63.63 BMI 53.1 Weight Status Morbidly Obese Subjective/Other Information Per RN, pt tolerating TF at goal rate. Percent of energy/protein needs met: 126% energy needs #1 Nutrition Diagnosis Inadequate oral intake Diagnosis Progress(for reassessment Continues documentation) Is patient on ventilator? No Is Patient Ambulatory and/or Out of Bed No REE-([place]-confined to bed) [phone] Calculation Used for Recommendations 65-70% energy needs Additional Notes Estimated energy needs: 1760- 1896 kcal/day Pro needs up to 2.5g/kg IBW: up to 159g/day Fluid needs 1ml/kcal Nutrition Intervention Nutrition Support: Decrease TF goal rate to 65ml/ hr with 100ml water flush q4h. Kcal 1,872 Protein (gm) 94 Carbohydrates (gm) 179 Fat (gm) 94 Fluid (mL) 1,256 Fiber (gm) 25 Goal #1 TF tolerance Goal #2 TF to meet 65-70% energy and at least 75% pro needs Follow-Up By: 05/03/21 Additional Comments F/U: TF rate decrease, labs
[2021-04-29] MEDS: ALBUTEROL 2.5 MG/3 ML NEBU IH SCH (20:52)
[2021-04-29] MEDS: SENNOSIDES 8.6 MG TAB PO SCH (21:43)
[2021-04-30] MEDS: FREE WATER PO SCH ×7 (01:00→22:39)
[2021-04-30] MEDS: INSULIN LISPRO 100 UNIT/ML SUB-Q SCH ×5 (01:01→17:40)
[2021-04-30 05:26] LABS: Hematocrit 24.7 % (30.3-42.9); Hemoglobin 7.8 gm/dl (10.1-14.3); Mean Corpuscular HGB Conc 32 % (30-34); Mean Corpuscular Volume 79 fl (79-97); Platelet Count 138 K/mm3 (140-440); Red Blood Count 3.12 M/mm3 (3.65-5.03); Red Cell Distribution Width 14.6 % (13.2-15.2)
[2021-04-30 05:39] LABS: Alanine Aminotransferase 7 units/L (7-56); Albumin 1.4 g/dL (3.9-5); BUN/Creatinine Ratio 42; Blood Urea Nitrogen 42 mg/dL (7-17); Calcium 8.5 mg/dL (8.4-10.2); Hemolysis Index 1
[2021-04-30] MEDS: ALBUTEROL 2.5 MG/3 ML NEBU IH SCH ×3 (07:35→19:09)
[2021-04-30] MEDS: INSULIN NPH/REGULAR 70/30 INJ SUB-Q SCH ×2 (08:02→17:40)
--- NOTE | 2021-04-30 08:50 | Progress Note ---
Assessment and Plan Acute metabolic acidosis Diabetic ketoacidosis Acute toxic metabolic encephalopathy-improving Obesity Osteoarthritis Hypercalcemia Airway clearance , chest PT Continue with NGT feeding Needs senior living antibiotics per ID Knee effusion is being monitored by Orthopedics Titrate supplemental oxygen to keep SpO2 88-90% PT, increase activity as tolerated Mobility, off loading and frequent turning for pressure ulcer prevention Can transfer out of the ICU Continue all supportive care - continue aspiration precautions (HOB > 40 degrees) - continue accuchecks with glycemic control - target blood glucose 140-180 mg/dL; avoid hypoglycemia - antiinfectives per ID team recommendations (Rocephin) - prn bronchodilators with pulmonary hygiene per RT - avoid nephrotoxins, renally dose all medications - avoid benzodiazepines, reduce the possibility of delirium - prn analgesia per pain score - Maintenance of sleep-wake cycle, avoid delirium - VTE prophylaxis - continue mobility protocols for pressure ulcer prophylaxis - Monitor hemodynamics closely - continue other care per attending / other consultants Subjective Date of service: 04/30/21 Principal diagnosis: HAGMA; DKA; AMS; Obesity; Osteoarthritis; Hypercalcemia Interval history: Patient is seen today for: Acute metabolic acidosis; Diabetic ketoacidosis; Acute toxic metabolic encephalopathy; Obesity; Osteoarthritis; Hypercalcemia Seen and examined at bedside; 24hour events reviewed; nursing and respiratory care staff consulted; no adverse overnight events reported to me; resting peacefully in bed; denies N/V/F/C. Awake and alert, strong cough . On supplemental oxygen via [facility], asking to be sent to [facility] Vital Signs - 12hr 04/29/21 04/29/21 04/29/21 20:53 21:00 21:37 Temperature Pulse Rate 93 H 92 H Pulse Rate [ 96 H Bilateral] Pulse Rate [ From Monitor] Respiratory 21 29 H Rate Respiratory 26 H Rate [Bilateral ] Blood Pressure 131/76 113/48 O2 Sat by Pulse 97 96 Oximetry 04/29/21 04/29/21 04/29/21 22:01 22:25 23:00 Temperature Pulse Rate 93 H 93 H Pulse Rate [ Bilateral] Pulse Rate [ From Monitor] Respiratory 27 H 30 H Rate Respiratory Rate [Bilateral ] Blood Pressure 129/76 132/78 O2 Sat by Pulse 97 97 97 Oximetry 04/30/21 04/30/21 04/30/21 00:00 01:01 02:01 Temperature 97.6 F Pulse Rate 98 H 103 H 102 H Pulse Rate [ Bilateral] Pulse Rate [ 95 H From Monitor] Respiratory 26 H 29 H 31 H Rate Respiratory Rate [Bilateral ] Blood Pressure 138/78 116/80 117/68 O2 Sat by Pulse 96 94 94 Oximetry 04/30/21 04/30/21 04/30/21 03:00 03:38 04:00 Temperature 98.8 F Pulse Rate 107 H 107 H Pulse Rate [ Bilateral] Pulse Rate [ 95 H From Monitor] Respiratory 31 H 25 H Rate Respiratory Rate [Bilateral ] Blood Pressure 144/75 142/73 O2 Sat by Pulse 96 96 Oximetry 04/30/21 04/30/21 04/30/21 05:00 06:01 07:00 Temperature Pulse Rate 105 H 103 H 95 H Pulse Rate [ Bilateral] Pulse Rate [ From Monitor] Respiratory 29 H 25 H 26 H Rate Respiratory Rate [Bilateral ] Blood Pressure 136/66 112/57 106/56 O2 Sat by Pulse 95 96 97 Oximetry 04/30/21 04/30/21 07:35 08:00 Temperature Pulse Rate 102 H Pulse Rate [ 100 H Bilateral] Pulse Rate [ 102 H From Monitor] Respiratory 26 H Rate Respiratory 18 Rate [Bilateral ] Blood Pressure 122/68 O2 Sat by Pulse 99 97 Oximetry Constitutional: no acute distress, alert, other (middle aged obese female with normal work of breathing at rest) Eyes: non-icteric ENT: oropharynx moist Neck: supple, no lymphadenopathy, no JVD Effort: normal Ascultation: Bilateral: clear, diminished breath sounds, rhonchi (and referred upper airway sounds) Percussion: Bilateral: not dull Cardiovascular: regular rate and rhythm, other (S1,S2) Gastrointestinal: hypoactive bowel sounds, soft, non-tender, non-distended Integumentary: rash (perineal) Extremities: no cyanosis, no edema, pulses normal, no ischemia or petechiae Neurologic: normal mental status, non-focal exam, pupils equal and round, CN II- XII normal, motor strength normal and, other Psychiatric: mood appropriate, affect normal CBC and BMP: 05/01/21 05:37 05/01/21 05:37 ABG, PT/INR, D-dimer: ABG ABG pH 7.426 pH Units (7.350-7.450) 04/25/21 11:20 ABG pCO2 25.3 mm Hg 04/25/21 11:20 ABG pO2 73.2 mm Hg (80.0-90.0) L 04/25/21 11:20 ABG O2 Saturation 96.9 % (95.0-99.0) 04/25/21 11:20 Abnormal lab findings: Abnormal Labs 04/23/21 04/23/21 04/23/21 10:33 10:33 10:33 WBC RBC Hgb Hct MCV MCH 26 L Plt Count Seg Neuts % (Manual) Lymphocytes % (Manual) 7.0 L Nucleated RBC % 2.0 H Lymphocytes # (Manual) 0.5 L ABG pO2 ABG HCO3 ABG Base Excess ABG Hemoglobin VBG pH 7.180 L* Oxyhemoglobin Sodium 122 L Potassium 3.0 L Chloride 84.8 L Carbon Dioxide 6 L* BUN 49 H Creatinine 1.4 H Glucose 775 H* POC Glucose Hemoglobin A1c Lactic Acid Calcium 12.2 H* Phosphorus Magnesium Alkaline Phosphatase 130 H C-Reactive Protein Total Protein Albumin 2.9 L Vancomycin Trough 04/23/21 04/23/21 04/23/21 10:40 12:44 14:01 WBC RBC Hgb Hct MCV MCH Plt Count Seg Neuts % (Manual) Lymphocytes % (Manual) Nucleated RBC % Lymphocytes # (Manual) ABG pO2 ABG HCO3 ABG Base Excess ABG Hemoglobin VBG pH Oxyhemoglobin Sodium Potassium Chloride Carbon Dioxide BUN Creatinine Glucose POC Glucose > 600 H 550 H Hemoglobin A1c Lactic Acid Calcium Phosphorus 1.50 L Magnesium Alkaline Phosphatase C-Reactive Protein Total Protein Albumin Vancomycin Trough 04/23/21 04/23/21 04/23/21 14:01 14:56 15:43 WBC RBC Hgb Hct MCV MCH Plt Count Seg Neuts % (Manual) Lymphocytes % (Manual) Nucleated RBC % Lymphocytes # (Manual) ABG pO2 ABG HCO3 ABG Base Excess ABG Hemoglobin VBG pH Oxyhemoglobin Sodium 125 L 131 L Potassium 3.0 L 2.9 L* Chloride 89.2 L Carbon Dioxide 6 L* 8 L* BUN 45 H 39 H Creatinine 1.3 H Glucose 594 H* 434 H POC Glucose 425 H Hemoglobin A1c Lactic Acid Calcium 10.9 H 10.3 H Phosphorus Magnesium Alkaline Phosphatase C-Reactive Protein Total Protein Albumin Vancomycin Trough 04/23/21 04/23/21 04/23/21 15:48 17:21 18:07 WBC RBC Hgb Hct MCV MCH Plt Count Seg Neuts % (Manual) Lymphocytes % (Manual) Nucleated RBC % Lymphocytes # (Manual) ABG pO2 ABG HCO3 ABG Base Excess ABG Hemoglobin VBG pH Oxyhemoglobin Sodium Potassium Chloride Carbon Dioxide BUN Creatinine Glucose POC Glucose 410 H 407 H 428 H Hemoglobin A1c Lactic Acid Calcium Phosphorus Magnesium Alkaline Phosphatase C-Reactive Protein Total Protein Albumin Vancomycin Trough 04/23/21 04/23/21 04/23/21 19:13 19:54 19:54 WBC RBC Hgb Hct MCV MCH Plt Count Seg Neuts % (Manual) Lymphocytes % (Manual) Nucleated RBC % Lymphocytes # (Manual) ABG pO2 ABG HCO3 ABG Base Excess ABG Hemoglobin VBG pH Oxyhemoglobin Sodium 131 L Potassium 3.1 L Chloride 95.9 L Carbon Dioxide 7 L* BUN 39 H Creatinine Glucose 391 H POC Glucose 350 H Hemoglobin A1c Lactic Acid Calcium 11.2 H Phosphorus 1.10 L D Magnesium Alkaline Phosphatase C-Reactive Protein Total Protein Albumin Vancomycin Trough 04/23/21 04/23/21 04/23/21 20:12 20:59 22:05 WBC RBC Hgb Hct MCV MCH Plt Count Seg Neuts % (Manual) Lymphocytes % (Manual) Nucleated RBC % Lymphocytes # (Manual) ABG pO2 ABG HCO3 ABG Base Excess ABG Hemoglobin VBG pH Oxyhemoglobin Sodium Potassium Chloride Carbon Dioxide BUN Creatinine Glucose POC Glucose 365 H 286 H 257 H Hemoglobin A1c Lactic Acid Calcium Phosphorus Magnesium Alkaline Phosphatase C-Reactive Protein Total Protein Albumin Vancomycin Trough 04/23/21 04/23/21 04/23/21 22:23 22:59 23:57 WBC RBC Hgb Hct MCV MCH Plt Count Seg Neuts % (Manual) Lymphocytes % (Manual) Nucleated RBC % Lymphocytes # (Manual) ABG pO2 ABG HCO3 ABG Base Excess ABG Hemoglobin VBG pH Oxyhemoglobin Sodium 135 L Potassium 3.2 L Chloride Carbon Dioxide 10 L BUN 35 H Creatinine Glucose 300 H POC Glucose 238 H 223 H Hemoglobin A1c Lactic Acid Calcium 11.6 H Phosphorus Magnesium Alkaline Phosphatase C-Reactive Protein Total Protein Albumin Vancomycin Trough 04/24/21 04/24/21 04/24/21 00:10 00:56 01:58 WBC RBC Hgb Hct MCV MCH Plt Count Seg Neuts % (Manual) Lymphocytes % (Manual) Nucleated RBC % Lymphocytes # (Manual) ABG pO2 ABG HCO3 ABG Base Excess ABG Hemoglobin VBG pH Oxyhemoglobin Sodium Potassium 3.2 L Chloride Carbon Dioxide 13 L BUN 33 H Creatinine Glucose 267 H POC Glucose 254 H 264 H Hemoglobin A1c Lactic Acid Calcium 11.2 H Phosphorus 1.20 L Magnesium Alkaline Phosphatase C-Reactive Protein Total Protein Albumin Vancomycin Trough 04/24/21 04/24/21 04/24/21 02:58 03:57 04:16 WBC RBC Hgb Hct MCV MCH Plt Count Seg Neuts % (Manual) Lymphocytes % (Manual) Nucleated RBC % Lymphocytes # (Manual) ABG pO2 ABG HCO3 ABG Base Excess ABG Hemoglobin VBG pH Oxyhemoglobin Sodium Potassium Chloride 108.0 H Carbon Dioxide 13 L BUN 31 H Creatinine Glucose 243 H POC Glucose 251 H 200 H Hemoglobin A1c Lactic Acid Calcium 10.9 H Phosphorus 1.80 L D Magnesium Alkaline Phosphatase C-Reactive Protein Total Protein Albumin Vancomycin Trough 04/24/21 04/24/21 04/24/21 04:16 04:16 04:59 WBC RBC Hgb Hct MCV MCH 26 L Plt Count Seg Neuts % (Manual) Lymphocytes % (Manual) Nucleated RBC % Lymphocytes # (Manual) ABG pO2 ABG HCO3 ABG Base Excess ABG Hemoglobin VBG pH Oxyhemoglobin Sodium Potassium Chloride Carbon Dioxide BUN Creatinine Glucose POC Glucose 208 H Hemoglobin A1c 18.3 H Lactic Acid Calcium Phosphorus Magnesium Alkaline Phosphatase C-Reactive Protein Total Protein Albumin Vancomycin Trough 04/24/21 04/24/21 04/24/21 05:53 06:51 07:58 WBC RBC Hgb Hct MCV MCH Plt Count Seg Neuts % (Manual) Lymphocytes % (Manual) Nucleated RBC % Lymphocytes # (Manual) ABG pO2 ABG HCO3 ABG Base Excess ABG Hemoglobin VBG pH Oxyhemoglobin Sodium Potassium Chloride Carbon Dioxide BUN Creatinine Glucose POC Glucose 213 H 161 H 149 H Hemoglobin A1c Lactic Acid Calcium Phosphorus Magnesium Alkaline Phosphatase C-Reactive Protein Total Protein Albumin Vancomycin Trough 04/24/21 04/24/21 04/24/21 09:21 10:06 11:03 WBC RBC Hgb Hct MCV MCH Plt Count Seg Neuts % (Manual) Lymphocytes % (Manual) Nucleated RBC % Lymphocytes # (Manual) ABG pO2 ABG HCO3 ABG Base Excess ABG Hemoglobin VBG pH Oxyhemoglobin Sodium Potassium Chloride Carbon Dioxide BUN Creatinine Glucose POC Glucose 178 H 164 H 157 H Hemoglobin A1c Lactic Acid Calcium Phosphorus Magnesium Alkaline Phosphatase C-Reactive Protein Total Protein Albumin Vancomycin Trough 04/24/21 04/24/2104/24/21 12:07 12:14 12:14 WBC RBC Hgb Hct MCV MCH Plt Count Seg Neuts % (Manual) Lymphocytes % (Manual) Nucleated RBC % Lymphocytes # (Manual) ABG pO2 ABG HCO3 ABG Base Excess ABG Hemoglobin VBG pH Oxyhemoglobin Sodium Potassium 3.2 L Chloride 108.7 H Carbon Dioxide 16 L BUN 24 H Creatinine Glucose 160 H POC Glucose 142 H Hemoglobin A1c Lactic Acid 2.50 H* Calcium 10.5 H Phosphorus 0.70 L* D Magnesium Alkaline Phosphatase C-Reactive Protein Total Protein Albumin Vancomycin Trough 04/24/21 04/24/21 04/24/21 13:02 14:00 15:14 WBC RBC Hgb Hct MCV MCH Plt Count Seg Neuts % (Manual) Lymphocytes % (Manual) Nucleated RBC % Lymphocytes # (Manual) ABG pO2 ABG HCO3 ABG Base Excess ABG Hemoglobin VBG pH Oxyhemoglobin Sodium Potassium Chloride Carbon Dioxide BUN Creatinine Glucose POC Glucose 138 H 150 H 145 H Hemoglobin A1c Lactic Acid Calcium Phosphorus Magnesium Alkaline Phosphatase C-Reactive Protein Total Protein Albumin Vancomycin Trough 04/24/21 04/24/21 04/24/21 16:07 17:11 18:12 WBC RBC Hgb Hct MCV MCH Plt Count Seg Neuts % (Manual) Lymphocytes % (Manual) Nucleated RBC % Lymphocytes # (Manual) ABG pO2 ABG HCO3 ABG Base Excess ABG Hemoglobin VBG pH Oxyhemoglobin Sodium Potassium Chloride Carbon Dioxide BUN Creatinine Glucose POC Glucose 148 H 156 H 153 H Hemoglobin A1c Lactic Acid Calcium Phosphorus Magnesium Alkaline Phosphatase C-Reactive Protein Total Protein Albumin Vancomycin Trough 04/24/21 04/24/21 04/24/21 18:24 19:55 20:55 WBC RBC Hgb Hct MCV MCH Plt Count Seg Neuts % (Manual) Lymphocytes % (Manual) Nucleated RBC % Lymphocytes # (Manual) ABG pO2 ABG HCO3 ABG Base Excess ABG Hemoglobin VBG pH Oxyhemoglobin Sodium Potassium Chloride 109.2 H Carbon Dioxide 15 L BUN 22 H Creatinine Glucose 159 H POC Glucose 176 H 146 H Hemoglobin A1c Lactic Acid Calcium Phosphorus 1.80 L D Magnesium Alkaline Phosphatase C-Reactive Protein 24.30 H Total Protein Albumin Vancomycin Trough 04/24/21 04/24/21 04/24/21 22:04 23:02 23:13 WBC RBC Hgb Hct MCV MCH Plt Count Seg Neuts % (Manual) Lymphocytes % (Manual) Nucleated RBC % Lymphocytes # (Manual) ABG pO2 ABG HCO3 ABG Base Excess ABG Hemoglobin VBG pH Oxyhemoglobin Sodium Potassium Chloride Carbon Dioxide BUN Creatinine Glucose POC Glucose 169 H 144 H Hemoglobin A1c Lactic Acid 3.10 H* Calcium Phosphorus Magnesium Alkaline Phosphatase C-Reactive Protein Total Protein Albumin Vancomycin Trough 04/25/21 04/25/21 04/25/21 00:05 01:28 02:03 WBC RBC Hgb Hct MCV MCH Plt Count Seg Neuts % (Manual) Lymphocytes % (Manual) Nucleated RBC % Lymphocytes # (Manual) ABG pO2 ABG HCO3 ABG Base Excess ABG Hemoglobin VBG pH Oxyhemoglobin Sodium Potassium Chloride Carbon Dioxide BUN Creatinine Glucose POC Glucose 150 H 142 H 148 H Hemoglobin A1c Lactic Acid Calcium Phosphorus Magnesium Alkaline Phosphatase C-Reactive Protein Total Protein Albumin Vancomycin Trough 04/25/21 04/25/21 04/25/21 03:07 04:17 05:48 WBC RBC Hgb Hct MCV MCH Plt Count Seg Neuts % (Manual) Lymphocytes % (Manual) Nucleated RBC % Lymphocytes # (Manual) ABG pO2 ABG HCO3 ABG Base Excess ABG Hemoglobin VBG pH Oxyhemoglobin Sodium Potassium Chloride Carbon Dioxide BUN Creatinine Glucose POC Glucose 161 H 158 H 136 H Hemoglobin A1c Lactic Acid Calcium Phosphorus Magnesium Alkaline Phosphatase C-Reactive Protein Total Protein Albumin Vancomycin Trough 04/25/21 04/25/21 04/25/21 06:52 07:58 08:10 WBC RBC Hgb 9.5 L Hct 28.8 L MCV MCH 26 L Plt Count Seg Neuts % (Manual) 33.0 L Lymphocytes % (Manual) Nucleated RBC % Lymphocytes # (Manual) 1.1 L ABG pO2 ABG HCO3 ABG Base Excess ABG Hemoglobin VBG pH Oxyhemoglobin Sodium Potassium Chloride Carbon Dioxide BUN Creatinine Glucose POC Glucose 137 H 143 H Hemoglobin A1c Lactic Acid Calcium Phosphorus Magnesium Alkaline Phosphatase C-Reactive Protein Total Protein Albumin Vancomycin Trough 04/25/21 04/25/21 04/25/21 08:10 08:10 08:53 WBC RBC Hgb Hct MCV MCH Plt Count Seg Neuts % (Manual) Lymphocytes % (Manual) Nucleated RBC % Lymphocytes # (Manual) ABG pO2 ABG HCO3 ABG Base Excess ABG Hemoglobin VBG pH Oxyhemoglobin Sodium Potassium 3.3 L Chloride 109.0 H Carbon Dioxide 16 L BUN 23 H Creatinine Glucose 151 H POC Glucose 132 H Hemoglobin A1c Lactic Acid 2.10 H* Calcium Phosphorus 2.20 L D Magnesium 1.60 L Alkaline Phosphatase C-Reactive Protein Total Protein Albumin Vancomycin Trough 04/25/21 04/25/21 04/25/21 09:59 11:20 11:20 WBC RBC Hgb Hct MCV MCH Plt Count Seg Neuts % (Manual) Lymphocytes % (Manual) Nucleated RBC % Lymphocytes # (Manual) ABG pO2 73.2 L ABG HCO3 16.2 L ABG Base Excess -7.1 L ABG Hemoglobin 8.7 L VBG pH Oxyhemoglobin 94.8 L Sodium Potassium Chloride Carbon Dioxide BUN Creatinine Glucose POC Glucose 141 H 141 H Hemoglobin A1c Lactic Acid Calcium Phosphorus Magnesium Alkaline Phosphatase C-Reactive Protein Total Protein Albumin Vancomycin Trough 04/25/21 04/25/21 04/25/21 12:04 12:26 13:04 WBC RBC Hgb Hct MCV MCH Plt Count Seg Neuts % (Manual) Lymphocytes % (Manual) Nucleated RBC % Lymphocytes # (Manual) ABG pO2 ABG HCO3 ABG Base Excess ABG Hemoglobin VBG pH Oxyhemoglobin Sodium Potassium 3.4 L Chloride 109.5 H Carbon Dioxide 14 L BUN 21 H Creatinine Glucose 155 H POC Glucose 129 H 135 H Hemoglobin A1c Lactic Acid Calcium Phosphorus 1.90 L Magnesium 1.60 L Alkaline Phosphatase C-Reactive Protein Total Protein Albumin Vancomycin Trough 04/25/21 04/25/21 04/25/21 13:58 15:09 16:00 WBC RBC Hgb Hct MCV MCH Plt Count Seg Neuts % (Manual) Lymphocytes % (Manual) Nucleated RBC % Lymphocytes # (Manual) ABG pO2 ABG HCO3 ABG Base Excess ABG Hemoglobin VBG pH Oxyhemoglobin Sodium Potassium Chloride Carbon Dioxide BUN Creatinine Glucose POC Glucose 140 H 134 H 135 H Hemoglobin A1c Lactic Acid Calcium Phosphorus Magnesium Alkaline Phosphatase C-Reactive Protein Total Protein Albumin Vancomycin Trough 04/25/21 04/25/21 04/25/21 18:56 18:58 18:58 WBC RBC Hgb Hct MCV MCH Plt Count Seg Neuts % (Manual) Lymphocytes % (Manual) Nucleated RBC % Lymphocytes # (Manual) ABG pO2 ABG HCO3 ABG Base Excess ABG Hemoglobin VBG pH Oxyhemoglobin Sodium Potassium Chloride 110.1 H Carbon Dioxide 13 L BUN 23 H Creatinine Glucose 206 H POC Glucose 170 H Hemoglobin A1c Lactic Acid 2.10 H* Calcium Phosphorus Magnesium 2.40 H Alkaline Phosphatase C-Reactive Protein Total Protein Albumin Vancomycin Trough 04/25/21 04/25/21 04/25/21 19:52 20:53 21:54 WBC RBC Hgb Hct MCV MCH Plt Count Seg Neuts % (Manual) Lymphocytes % (Manual) Nucleated RBC % Lymphocytes # (Manual) ABG pO2 ABG HCO3 ABG Base Excess ABG Hemoglobin VBG pH Oxyhemoglobin Sodium Potassium Chloride Carbon Dioxide BUN Creatinine Glucose POC Glucose 162 H 171 H 139 H Hemoglobin A1c Lactic Acid Calcium Phosphorus Magnesium Alkaline Phosphatase C-Reactive Protein Total Protein Albumin Vancomycin Trough 04/25/21 04/26/21 04/26/21 22:53 00:03 00:38 WBC RBC Hgb Hct MCV MCH Plt Count Seg Neuts % (Manual) Lymphocytes % (Manual) Nucleated RBC % Lymphocytes # (Manual) ABG pO2 ABG HCO3 ABG Base Excess ABG Hemoglobin VBG pH Oxyhemoglobin Sodium Potassium Chloride 112.6 H Carbon Dioxide 14 L BUN 22 H Creatinine Glucose 149 H POC Glucose 140 H 129 H Hemoglobin A1c Lactic Acid Calcium Phosphorus Magnesium 2.40 H Alkaline Phosphatase C-Reactive Protein Total Protein Albumin Vancomycin Trough 04/26/21 04/26/21 04/26/21 01:00 01:56 02:54 WBC RBC Hgb Hct MCV MCH Plt Count Seg Neuts % (Manual) Lymphocytes % (Manual) Nucleated RBC % Lymphocytes # (Manual) ABG pO2 ABG HCO3 ABG Base Excess ABG Hemoglobin VBG pH Oxyhemoglobin Sodium Potassium Chloride Carbon Dioxide BUN Creatinine Glucose POC Glucose 126 H 137 H 132 H Hemoglobin A1c Lactic Acid Calcium Phosphorus Magnesium Alkaline Phosphatase C-Reactive Protein Total Protein Albumin Vancomycin Trough 04/26/21 04/26/21 04/26/21 04:04 05:02 05:02 WBC RBC 3.44 L Hgb 8.9 L Hct 26.9 L MCV 78 L MCH 26 L Plt Count Seg Neuts % (Manual) Lymphocytes % (Manual) Nucleated RBC % Lymphocytes # (Manual) ABG pO2 ABG HCO3 ABG Base Excess ABG Hemoglobin VBG pH Oxyhemoglobin Sodium Potassium Chloride 114.8 H Carbon Dioxide 14 L BUN 22 H Creatinine Glucose 129 H POC Glucose 130 H Hemoglobin A1c Lactic Acid Calcium Phosphorus Magnesium Alkaline Phosphatase C-Reactive Protein Total Protein Albumin Vancomycin Trough 04/26/21 04/26/21 04/26/21 05:03 06:06 06:53 WBC RBC Hgb Hct MCV MCH Plt Count Seg Neuts % (Manual) Lymphocytes % (Manual) Nucleated RBC % Lymphocytes # (Manual) ABG pO2 ABG HCO3 ABG Base Excess ABG Hemoglobin VBG pH Oxyhemoglobin Sodium Potassium Chloride Carbon Dioxide BUN Creatinine Glucose POC Glucose 115 H 129 H 121 H Hemoglobin A1c Lactic Acid Calcium Phosphorus Magnesium Alkaline Phosphatase C-Reactive Protein Total Protein Albumin Vancomycin Trough 04/26/21 04/26/21 04/26/21 07:58 09:09 10:05 WBC RBC Hgb Hct MCV MCH Plt Count Seg Neuts % (Manual) Lymphocytes % (Manual) Nucleated RBC % Lymphocytes # (Manual) ABG pO2 ABG HCO3 ABG Base Excess ABG Hemoglobin VBG pH Oxyhemoglobin Sodium Potassium Chloride Carbon Dioxide BUN Creatinine Glucose POC Glucose 124 H 125 H 131 H Hemoglobin A1c Lactic Acid Calcium Phosphorus Magnesium Alkaline Phosphatase C-Reactive Protein Total Protein Albumin Vancomycin Trough 04/26/21 04/26/21 04/26/21 10:52 12:00 13:17 WBC RBC Hgb Hct MCV MCH Plt Count Seg Neuts % (Manual) Lymphocytes % (Manual) Nucleated RBC % Lymphocytes # (Manual) ABG pO2 ABG HCO3 ABG Base Excess ABG Hemoglobin VBG pH Oxyhemoglobin Sodium Potassium Chloride Carbon Dioxide BUN Creatinine Glucose POC Glucose 129 H 126 H 130 H Hemoglobin A1c Lactic Acid Calcium Phosphorus Magnesium Alkaline Phosphatase C-Reactive Protein Total Protein Albumin Vancomycin Trough 04/26/21 04/26/21 04/26/21 14:06 14:11 15:07 WBC RBC Hgb Hct MCV MCH Plt Count Seg Neuts % (Manual) Lymphocytes % (Manual) Nucleated RBC % Lymphocytes # (Manual) ABG pO2 ABG HCO3 ABG Base Excess ABG Hemoglobin VBG pH Oxyhemoglobin Sodium Potassium 5.3 H D Chloride 112.2 H Carbon Dioxide 14 L BUN 22 H Creatinine Glucose 116 H POC Glucose 132 H 130 H Hemoglobin A1c Lactic Acid Calcium Phosphorus Magnesium 2.40 H Alkaline Phosphatase C-Reactive Protein Total Protein Albumin Vancomycin Trough 04/26/21 04/26/21 04/26/21 15:20 16:05 17:55 WBC RBC Hgb Hct MCV MCH Plt Count Seg Neuts % (Manual) Lymphocytes % (Manual) Nucleated RBC % Lymphocytes # (Manual) ABG pO2 ABG HCO3 ABG Base Excess ABG Hemoglobin VBG pH Oxyhemoglobin Sodium Potassium Chloride 112.4 H Carbon Dioxide 13 L BUN 22 H Creatinine Glucose 143 H POC Glucose 156 H 194 H Hemoglobin A1c Lactic Acid Calcium Phosphorus Magnesium Alkaline Phosphatase C-Reactive Protein Total Protein Albumin Vancomycin Trough 04/26/21 04/27/21 04/27/21 19:27 00:02 04:03 WBC RBC 3.20 L Hgb 8.1 L Hct 25.1 L MCV 78 L MCH 25 L Plt Count Seg Neuts % (Manual) Lymphocytes % (Manual) Nucleated RBC % Lymphocytes # (Manual) ABG pO2 ABG HCO3 ABG Base Excess ABG Hemoglobin VBG pH Oxyhemoglobin Sodium Potassium Chloride Carbon Dioxide BUN Creatinine Glucose POC Glucose 261 H Hemoglobin A1c Lactic Acid Calcium Phosphorus Magnesium Alkaline Phosphatase C-Reactive Protein Total Protein Albumin Vancomycin Trough 38.2 H 04/27/21 04/27/21 04/27/21 04:03 05:33 09:51 WBC RBC Hgb Hct MCV MCH Plt Count Seg Neuts % (Manual) Lymphocytes % (Manual) Nucleated RBC % Lymphocytes # (Manual) ABG pO2 ABG HCO3 ABG Base Excess ABG Hemoglobin VBG pH Oxyhemoglobin Sodium Potassium Chloride 112.4 H Carbon Dioxide 12 L BUN 30 H Creatinine Glucose 330 H POC Glucose 311 H 335 H Hemoglobin A1c Lactic Acid Calcium Phosphorus Magnesium Alkaline Phosphatase C-Reactive Protein Total Protein Albumin Vancomycin Trough 04/27/21 04/27/21 04/27/21 13:15 16:43 18:10 WBC RBC Hgb Hct MCV MCH Plt Count Seg Neuts % (Manual) Lymphocytes % (Manual) Nucleated RBC % Lymphocytes # (Manual) ABG pO2 ABG HCO3 ABG Base Excess ABG Hemoglobin VBG pH Oxyhemoglobin Sodium Potassium Chloride Carbon Dioxide BUN Creatinine Glucose POC Glucose 291 H 218 H 177 H Hemoglobin A1c Lactic Acid Calcium Phosphorus Magnesium Alkaline Phosphatase C-Reactive Protein Total Protein Albumin Vancomycin Trough 04/27/21 04/28/21 04/28/21 22:08 02:15 04:41 WBC RBC 3.50 L Hgb 8.9 L Hct 27.3 L MCV 78 L MCH 26 L Plt Count Seg Neuts % (Manual) Lymphocytes % (Manual) Nucleated RBC % Lymphocytes # (Manual) ABG pO2 ABG HCO3 ABG Base Excess ABG Hemoglobin VBG pH Oxyhemoglobin Sodium Potassium Chloride Carbon Dioxide BUN Creatinine Glucose POC Glucose 136 H 152 H Hemoglobin A1c Lactic Acid Calcium Phosphorus Magnesium Alkaline Phosphatase C-Reactive Protein Total Protein Albumin Vancomycin Trough 04/28/21 04/28/21 04/28/21 04:41 06:03 08:42 WBC RBC Hgb Hct MCV MCH Plt Count Seg Neuts % (Manual) Lymphocytes % (Manual) Nucleated RBC % Lymphocytes # (Manual) ABG pO2 ABG HCO3 ABG Base Excess ABG Hemoglobin VBG pH Oxyhemoglobin Sodium Potassium Chloride 113.5 H Carbon Dioxide 16 L BUN 37 H Creatinine Glucose 167 H POC Glucose 174 H 212 H Hemoglobin A1c Lactic Acid Calcium Phosphorus Magnesium Alkaline Phosphatase C-Reactive Protein Total Protein Albumin Vancomycin Trough 04/28/21 04/28/21 04/28/21 11:34 17:15 21:58 WBC RBC Hgb Hct MCV MCH Plt Count Seg Neuts % (Manual) Lymphocytes % (Manual) Nucleated RBC % Lymphocytes # (Manual) ABG pO2 ABG HCO3 ABG Base Excess ABG Hemoglobin VBG pH Oxyhemoglobin Sodium Potassium Chloride Carbon Dioxide BUN Creatinine Glucose POC Glucose 228 H 236 H 208 H Hemoglobin A1c Lactic Acid Calcium Phosphorus Magnesium Alkaline Phosphatase C-Reactive Protein Total Protein Albumin Vancomycin Trough 04/29/21 04/29/21 04/29/21 01:55 04:00 04:00 WBC 11.7 H RBC 3.35 L Hgb 8.5 L Hct 26.4 L MCV MCH 25 L Plt Count Seg Neuts % (Manual) Lymphocytes % (Manual) Nucleated RBC % Lymphocytes # (Manual) ABG pO2 ABG HCO3 ABG Base Excess ABG Hemoglobin VBG pH Oxyhemoglobin Sodium 146 H Potassium Chloride 112.4 H Carbon Dioxide BUN 41 H Creatinine Glucose 115 H POC Glucose 137 H Hemoglobin A1c Lactic Acid Calcium Phosphorus Magnesium Alkaline Phosphatase C-Reactive Protein Total Protein Albumin Vancomycin Trough 04/29/21 04/29/21 04/30/21 05:16 11:02 00:23 WBC RBC Hgb Hct MCV MCH Plt Count Seg Neuts % (Manual) Lymphocytes % (Manual) Nucleated RBC % Lymphocytes # (Manual) ABG pO2 ABG HCO3 ABG Base Excess ABG Hemoglobin VBG pH Oxyhemoglobin Sodium Potassium Chloride Carbon Dioxide BUN Creatinine Glucose POC Glucose 114 H 144 H 126 H Hemoglobin A1c Lactic Acid Calcium Phosphorus Magnesium Alkaline Phosphatase C-Reactive Protein Total Protein Albumin Vancomycin Trough 04/30/21 04/30/21 04/30/21 04:41 04:41 05:22 WBC 14.4 H RBC 3.12 L Hgb 7.8 L Hct 24.7 L MCV MCH 25 L Plt Count 138 L Seg Neuts % (Manual) Lymphocytes % (Manual) Nucleated RBC % Lymphocytes # (Manual) ABG pO2 ABG HCO3 ABG Base Excess ABG Hemoglobin VBG pH Oxyhemoglobin Sodium Potassium Chloride 108.0 H Carbon Dioxide BUN 42 H Creatinine Glucose 215 H POC Glucose 196 H Hemoglobin A1c Lactic Acid Calcium Phosphorus Magnesium Alkaline Phosphatase 171 H C-Reactive Protein Total Protein 6.1 L Albumin 1.4 L Vancomycin Trough Allied health notes reviewed: nursing
[2021-04-30] MEDS: ENOXAPARIN 40 MG/0.4 ML INJ SUB-Q SCH ×2 (09:36→21:55)
[2021-04-30] MEDS: FAMOTIDINE 20 MG TAB FEEDTUBE SCH (09:37)
[2021-04-30] MEDS: ACETAMINOPHEN 325 MG TAB PO PRN (12:15)
--- NOTE | 2021-04-30 13:00 | Progress Note ---
Assessment and Plan Assessment and plan: This is a 51-year-old female with DM, noncompliance, obesity, arthritis and right knee surgery admitted for DKA Neuro: Acute metabolic encephalopathy (improved significantly) -Reorientation as needed -Avoid delirium -Maintain sleep-wake cycle -PT OT consulted, appreciate recommendation Cardio: NAD -Blood pressure monitoring per protocol -Echocardiogram shows mildly dilated right heart chamber, mild to moderate TR, moderate pulmonary hypertension, RVSP 50-55, LVEF 45-50 Respiratory: Acute hypoxic respiratory failure -Currently on nasal cannula -S/p Ventimask -CCM consulted, appreciate recommendations -Aggressive oral and pulmonary hygiene -Scheduled duo nebs with CPT -SPO2 monitoring GI: Morbid obesity -Nutrition consult for tube feeding -ST consult for speech evaluation -PPI Pepcid -BR: Senokot -24 hours +547 mL : Hypernatremia (resolved) , hyperchloremia (improving) -free water flushes 150 ml q4hr -Trend BMP -Purwick in place ID: Sepsis, group B Streptococcus bacteremia, h/o right septic arthritis -Infectious disease consulted, appreciate recommendations -ABX therapy per ID: Ceftriaxone 2 g every 24 hours till 05/10 -Right knee x-ray shows large joint effusion -MR pending -Orthopedic consult for arthrocentesis -TTE without evidence of vegetations/endocarditis -Monitor fever and temp curve -Follow-up cultures Heme: Leukocytosis -Lovenox subcu -SCDs to bilateral LE while in bed -Trend CBC -Transfuse hemoglobin less than 7 Endo: S/p DKA, h/o uncontrolled DM -Hemoglobin A1c 18.3 -S/p DKA protocol and insulin drip -SSI -Long-acting insulin -Avoid hypoglycemia -Accu-Cheks every 6 The high probability of a clinically significant, sudden or life threatening deterioration of the [multi] system(s) required my full and direct attention, intervention and personal management. The aggregate critical care time was [60] minutes. This time is in addition to time spent performing reported procedures but includes the following: [x] Data Review and interpretation [x] Patient assessment and monitoring of vital signs [x] Documentation [x] Medication orders and management Disposition Plan: transfer to floor Total Time Spent with Patient (Minutes): 60 History Interval history: This is a 51-year-old female with DM, OA, medication noncompliance, obesity who presented to emergency department on 04/23 with complaints of weakness, elevated blood glucose levels, nausea, polydipsia, polyuria and diminished oral intake over the past week with worsening symptoms over the past 2 days. Patient acknowledges noncompliance with oral antihyperglycemic therapy. Patient was seen and evaluated in the emergency department and found to have lab work consistent with diabetic ketoacidosis, metabolic encephalopathy, metabolic acidosis and volume depletion. Patient was admitted to the hospital service to the ICU initiated DKA protocol with CCM consult. 04/24/21- Patient remains on DKA protocol. Still very lethargic this am, following simple commands. Rt. knee wound and swelling noted, and nursing staff also reported thick, white vaginal discharge. C/f sepsis, blood culture ordered, this am UA noted. Will start patient on PO difflucan for possible yeast infection, pending culture data. Anion GAP is still 18 this am, will continue DKA protocol for now. Continue to monitor electrolytes, serial BMP ordered. 04/25/21- Patient appears to be in distress this am, now on 3L NC. Lactic acidosis worsen overnight, X1L LR bolus adminstered. Ordered placed for stat ABGs. Blood culture growing GPC 3/4 bottles, patient remains afebrile with no leukocytosis. IV abx was escalated, ID consulted. Ortho consult is still pending, order placed for XR of the Rt. knee. Given patient worsen condition and high anio, gap, will continue insulin gtt for now. Low K and mg was repleted. Continue serial BMP,mg, and phosp 04/26/21- Patient appears more alert and awake this am, talkative, and following commands. Remains on DKA protocol, gap is closedX2, will transition patient to SSI and basal insulin and initiate enteral nutrition. Patient remains afebrile overnight, continue IV Abx per ID. 04/27/21- TASHA overnight. Patient mentation continue to improve. Worsening hyperglycemia, patient is tolerating TF. 70/30 added BID and SSI was adjusted to high dose Q4hrs. D/W CCM patient is stable for transfer to [facility] 04/28/21- Patient continue to improve. Remains drowsy this am, however, easily arousable. Now on 4L NC, still requiring Q4hrs NT suction due to increased secretions and weak cough. Continue to wean O2 supplement as tolerated, F/U CXR in the am. Continue IV Abx per ID. 04/29: Patient is awake and alert with strong cough and able to clear own airway. Ortho consult for right knee aspiration pending. 04/30: No acute events reported overnight, patient will be transferred to the floor. MR of right knee ordered. Hospitalist Physical - Constitutional Vitals: Temp Pulse Resp BP Pulse Ox 100.2 F H 103 H 31 H 127/67 97 04/30/21 12:00 04/30/21 12:00 04/30/21 12:00 04/30/21 12:00 04/30/21 12:00 General appearance: Present: no acute distress, obese, other - EENT Eyes: Present: PERRL, EOM intact ENT: hearing intact, clear oral mucosa, dentition normal - Neck Neck: Present: normal ROM - Respiratory Respiratory effort: normal Respiratory: bilateral: CTA - Cardiovascular Rhythm: regular Heart Sounds: Present: S1 & S2. Absent: systolic murmur, diastolic murmur - Extremities Extremities: no ischemia, pulses intact, pulses symmetrical, No edema, normal temperature, normal color, Full ROM Extremity abnormal: edema (to right knee) Peripheral Pulses: within normal limits - Abdominal General gastrointestinal: soft, non-tender, non-distended, normal bowel sounds - Integumentary Integumentary: Present: warm, dry - Psychiatric Psychiatric: appropriate mood/affect, cooperative - Neurologic Neurologic: CNII-XII intact, no focal deficits, moves all extremities - Allied Health Allied health notes reviewed: nursing, RT, social work HEART Score - HEART Score Troponin: Troponin T < 0.010 ng/mL (0.00-0.029) 04/23/21 10:33 Results - Labs CBC & Chem 7: 04/30/21 04:41 04/30/21 04:41 Labs: Laboratory Last Values WBC 14.4 K/mm3 (4.5-11.0) H 04/30/21 04:41 RBC 3.12 M/mm3 (3.65-5.03) L 04/30/21 04:41 Hgb 7.8 gm/dl (10.1-14.3) L 04/30/21 04:41 Hct 24.7 % (30.3-42.9) L 04/30/21 04:41 MCV 79 fl (79-97) 04/30/21 04:41 MCH 25 pg (28-32) L 04/30/21 04:41 MCHC 32 % (30-34) 04/30/21 04:41 RDW 14.6 % (13.2-15.2) 04/30/21 04:41 Plt Count 138 K/mm3 (140-440) L 04/30/21 04:41 Add Manual Diff Complete 04/25/21 08:10 Total Counted 100 04/25/21 08:10 Seg Neutrophils % Paper Winder 04/23/21 10:33 Seg Neuts % (Manual) 33.0 % (40.0-70.0) L 04/25/21 08:10 Band Neutrophils % 23.0 % 04/25/21 08:10 Lymphocytes % (Manual) 19.0 % (13.4-35.0) 04/25/21 08:10 Reactive Lymphs % (Man) 1.0 % 04/25/21 08:10 Monocytes % (Manual) 1.0 % (0.0-7.3) 04/25/21 08:10 Eosinophils % (Manual) 1.0 % (0.0-4.3) 04/25/21 08:10 Metamyelocytes % 3.0 % 04/23/21 10:33 Myelocytes % 22.0 % 04/25/21 08:10 Nucleated RBC % Not Reportable 04/25/21 08:10 Seg Neutrophils # Man 1.9 K/mm3 (1.8-7.7) 04/25/21 08:10 Band Neutrophils # 1.3 K/mm3 04/25/21 08:10 Lymphocytes # (Manual) 1.1 K/mm3 (1.2-5.4) L 04/25/21 08:10 Abs React Lymphs (Man) 0.1 K/mm3 04/25/21 08:10 Monocytes # (Manual) 0.1 K/mm3 (0.0-0.8) 04/25/21 08:10 Eosinophils # (Manual) 0.1 K/mm3 (0.0-0.4) 04/25/21 08:10 Basophils # (Manual) 0.0 K/mm3 (0.0-0.1) 04/25/21 08:10 Metamyelocytes # 0.0 K/mm3 04/25/21 08:10 Myelocytes # 1.3 K/mm3 04/25/21 08:10 Promyelocytes # 0.0 K/mm3 04/25/21 08:10 Blast Cells # 0.0 K/mm3 04/25/21 08:10 WBC Morphology Not Reportable 04/25/21 08:10 Hypersegmented Neuts Not Reportable 04/25/21 08:10 Hyposegmented Neuts Not Reportable 04/25/21 08:10 Hypogranular Neuts Not Reportable 04/25/21 08:10 Smudge Cells Not Reportable 04/25/21 08:10 Toxic Granulation Not Reportable 04/25/21 08:10 Toxic Vacuolation Not Reportable 04/25/21 08:10 Dohle Bodies Not Reportable 04/25/21 08:10 Pelger-Huet Anomaly Not Reportable 04/25/21 08:10 Thierry Rods Not Reportable 04/25/21 08:10 Platelet Estimate Consistent w auto 04/25/21 08:10 Clumped Platelets Not Reportable 04/25/21 08:10 Plt Clumps, EDTA Not Reportable 04/25/21 08:10 Large Platelets Not Reportable 04/25/21 08:10 Giant Platelets Not Reportable 04/25/21 08:10 Platelet Satelliting Not Reportable 04/25/21 08:10 Plt Morphology Comment Not Reportable 04/25/21 08:10 RBC Morphology Not Reportable 04/25/21 08:10 Dimorphic RBCs Not Reportable 04/25/21 08:10 Polychromasia Not Reportable 04/25/21 08:10 Hypochromasia 1+ 04/25/21 08:10 Poikilocytosis Not Reportable 04/25/21 08:10 Anisocytosis Not Reportable 04/25/21 08:10 Microcytosis Not Reportable 04/25/21 08:10 Macrocytosis Not Reportable 04/25/21 08:10 Spherocytes Not Reportable 04/25/21 08:10 Pappenheimer Bodies Not Reportable 04/25/21 08:10 Sickle Cells Not Reportable 04/25/21 08:10 Target Cells Not Reportable 04/25/21 08:10 Tear Drop Cells Not Reportable 04/25/21 08:10 Ovalocytes Not Reportable 04/25/21 08:10 Helmet Cells Not Reportable 04/25/21 08:10 [place] Bodies Not Reportable 04/25/21 08:10 [place] Rings Not Reportable 04/25/21 08:10 Kamari Cells Not Reportable 04/25/21 08:10 Bite Cells Not Reportable 04/25/21 08:10 Crenated Cell Not Reportable 04/25/21 08:10 Elliptocytes Not Reportable 04/25/21 08:10 Acanthocytes (Spur) Not Reportable 04/25/21 08:10 Rouleaux Not Reportable 04/25/21 08:10 Hemoglobin C Crystals Not Reportable 04/25/21 08:10 Schistocytes Not Reportable 04/25/21 08:10 Malaria parasites Not Reportable 04/25/21 08:10 Juan Bodies Not Reportable 04/25/21 08:10 Hem Pathologist Commnt No 04/25/21 08:10 ABG pH 7.426 pH Units (7.350-7.450) 04/25/21 11:20 ABG pCO2 25.3 mm Hg 04/25/21 11:20 ABG pO2 73.2 mm Hg (80.0-90.0) L 04/25/21 11:20 ABG HCO3 16.2 mmol/L (20.0-26.0) L 04/25/21 11:20 ABG O2 Saturation 96.9 % (95.0-99.0) 04/25/21 11:20 ABG O2 Content 11.6 (0.0-44) 04/25/21 11:20 ABG Base Excess -7.1 mmol/L (-2.0-3.0) L 04/25/21 11:20 ABG Hemoglobin 8.7 gm/dl (12.0-16.0) L 04/25/21 11:20 ABG Carboxyhemoglobin 1.6 % (0.0-5.0) 04/25/21 11:20 ABG Methemoglobin 0.6 % (0.0-1.5) 04/25/21 11:20 VBG pH 7.180 (7.320-7.420) L* 04/23/21 10:33 Oxyhemoglobin 94.8 % (95.0-99.0) L 04/25/21 11:20 FiO2 28 % 04/25/21 11:20 Sodium 143 mmol/L (137-145) 04/30/21 04:41 Potassium 4.5 mmol/L (3.6-5.0) 04/30/21 04:41 Chloride 108.0 mmol/L (98-107) H 04/30/21 04:41 Carbon Dioxide 29 mmol/L (22-30) 04/30/21 04:41 Anion Gap 11 mmol/L 04/30/21 04:41 BUN 42 mg/dL (7-17) H 04/30/21 04:41 Creatinine 1.0 mg/dL (0.6-1.2) 04/30/21 04:41 Estimated GFR > 60 ml/min 04/30/21 04:41 BUN/Creatinine Ratio 42 % 04/30/21 04:41 Glucose 215 mg/dL (65-100) H 04/30/21 04:41 POC Glucose 224 mg/dL (70-105) H 04/30/21 11:55 Hemoglobin A1c 18.3 % (4-6) H 04/24/21 04:16 Lactic Acid 1.70 mmol/L (0.7-2.0) 04/26/21 05:02 Uric Acid 7.5 mg/dL (3.5-7.6) 04/24/21 12:14 Calcium 8.5 mg/dL (8.4-10.2) 04/30/21 04:41 Phosphorus 4.50 mg/dL (2.5-4.5) 04/30/21 04:41 Magnesium 2.20 mg/dL (1.7-2.3) 04/30/21 04:41 Total Bilirubin 0.50 mg/dL (0.1-1.2) 04/30/21 04:41 AST 12 units/L (5-40) 04/30/21 04:41 ALT 7 units/L (7-56) 04/30/21 04:41 Alkaline Phosphatase 171 units/L (35-129) H 04/30/21 04:41 Ammonia 37.0 umol/L (25-60) 04/23/21 10:33 Total Creatine Kinase 83 units/L (30-135) 04/23/21 10:33 Troponin T < 0.010 ng/mL (0.00-0.029) 04/23/21 10:33 C-Reactive Protein 24.30 mg/dL (0.00-1.30) H 04/24/21 18:24 Total Protein 6.1 g/dL (6.3-8.2) L 04/30/21 04:41 Albumin 1.4 g/dL (3.9-5) L 04/30/21 04:41 Albumin/Globulin Ratio 0.3 % 04/30/21 04:41 Procalcitonin 21.10 ng/mL (<0.15) 04/24/21 12:14 TSH 1.400 mlU/mL (0.270-4.200) 04/23/21 10:33 Urine Color Katie (Yellow) 04/27/21 16:16 Urine Turbidity Cloudy (Clear) 04/27/21 16:16 Urine pH 5.0 (5.0-7.0) 04/27/21 16:16 Ur Specific Patriot 1.014 (1.003-1.030) 04/27/21 16:16 Urine Protein <15 mg/dl mg/dL (Negative) 04/27/21 16:16 Urine Glucose (UA) >=500 mg/dL (Negative) 04/27/21 16:16 Urine Ketones Neg mg/dL (Negative) 04/27/21 16:16 Urine Blood Neg (Negative) 04/27/21 16:16 Urine Nitrite Neg (Negative) 04/27/21 16:16 Urine Bilirubin Neg (Negative) 04/27/21 16:16 Urine Urobilinogen 2.0 mg/dL (<2.0) 04/27/21 16:16 Ur Leukocyte Esterase Neg (Negative) 04/27/21 16:16 Urine WBC (Auto) 1.0 /HPF (0.0-6.0) 04/27/21 16:16 Urine RBC (Auto) 1.0 /HPF (0.0-6.0) 04/27/21 16:16 U Epithel Cells (Auto) < 1.0 /HPF (0-13.0) 04/24/21 08:40 Urine Bacteria (Auto) 1+ /HPF (Negative) 04/27/21 16:16 Amorphous Crystals Few 04/27/21 16:16 Urine Yeast (Budding) 3+ /HPF 04/27/21 16:16 Vancomycin Trough 38.2 ug/mL (5.0-20.0) H 04/26/21 19:27 Coronavirus (PCR) Negative (Negative) 04/25/21 Unknown Microbiology: Microbiology 04/26/21 09:04 Peripheral/Venous Blood Culture - Preliminary NO GROWTH AFTER 4 DAYS 04/26/21 05:02 Peripheral/Venous Blood Culture - Preliminary NO GROWTH AFTER 4 DAYS Sanchez/IV: Voiding Method Indwelling Catheter Active Medications - Current Medications Current Medications: Generic Name Dose Route Start Last Admin Trade Name Freq PRN Reason Stop Dose Admin Acetaminophen 650 mg 04/23/21 11:54 04/30/21 12:15 Acetaminophen 325 Mg Tab PO 650 mg Q6H PRN Administration Pain MILD(1-3)/Fever >100.5/SMITH Albuterol 2.5 mg 04/29/21 20:00 04/30/21 07:35 Albuterol 2.5 Mg/3 Ml Nebu IH 2.5 mg TIDRT AMIRA Administration Lipase/Protease/Amylase 1 each 04/29/21 15:42 Lipase 10,500/Protease 25,000/Amylase 43,750 (Units) Dr Rodriguez FEEDTUBE PRN PRN For Clogged Feeding Tube Dextrose 50 ml 04/26/21 14:00 Dextrose 50% In Water (25gm) 50 Ml Syringe IV Q30MIN PRN Hypoglycemia Protocol Enoxaparin Sodium 40 mg 04/24/21 22:00 04/30/21 09:36 Enoxaparin 40 Mg/0.4 Ml Inj SUB-Q 40 mg BID AMIRA Administration Protocol Famotidine 20 mg 04/29/21 10:00 04/30/21 09:37 Famotidine 20 Mg Tab FEEDTUBE 20 mg DAILY AMIRA Administration Hydromorphone HCl 0.5 mg 04/23/21 11:54 04/27/21 16:29 Hydromorphone 1 Mg/1 Ml Inj IV 0.5 mg Q23H PRN Administration Pain , Severe (7-10) Ceftriaxone Sodium 2 gm in 100 mls @ 200 mls/hr 04/25/21 14:00 04/29/21 16:37 Rocephin/Ns 2 Gm/100 Ml IV 05/10/21 14:29 200 mls/hr Q24H AMIRA Administration Protocol Insulin Human Isoph/Insulin Regular 40 unit 04/27/21 17:00 04/30/21 08:02 Insulin Nph/Regular 70/30 Inj SUB-Q 40 unit BIDDIAB AMIRA Administration Insulin Human Lispro 0 unit 04/29/21 12:00 04/30/21 12:35 Insulin Lispro 100 Unit/Ml SUB-Q Not Given Q6HR [facility] Protocol Oxycodone/Acetaminophen 1 tab 04/23/21 11:54 Oxycodone /Acetaminophen 5-325mg Tab PO Q16H PRN Pain, Moderate (4-6) Senna 17.2 mg 04/25/21 22:00 04/29/21 21:43 Sennosides 8.6 Mg Tab PO Not Given QHS AMIRA Simple Syrup 15 ml 04/29/21 15:42 Simple Syrup 15 Ml FEEDTUBE PRN PRN Hypoglycemia Simple Syrup 30 ml 04/29/21 15:42 Simple Syrup 15 Ml FEEDTUBE PRN PRN Hypoglycemia Sodium Bicarbonate 325 mg 04/29/21 15:42 Sodium Bicarbonate 325 Mg Tab FEEDTUBE PRN PRN For Clogged Feeding Tube Sodium Chloride 10 ml 04/23/21 22:00 04/30/21 12:35 Sodium Chloride 0.9% 10 Ml Flush Syringe IV Not Given BID AMIRA Sodium Chloride 10 ml 04/23/21 11:54 04/24/21 11:15 Sodium Chloride 0.9% 10 Ml Flush Syringe IV 10 ml PRN PRN Administration LINE FLUSH Nutrition/Malnutrition Assess - Dietary Evaluation Nutrition/Malnutrition Findings: Nutrition Notes Start: 04/26/21 09:53 Freq: Status: Active Protocol: Document 04/29/21 15:44 HOANG (Rec: 04/29/21 15:50 HOANG [id number]) Nutrition Notes Initial or Follow up Reassessment Current Diagnosis Diabetes Other Pertinent Diagnosis DKA, OA Current Diet TF - Glucerna 1.2 at 83ml/hr Labs/Tests Na 146 BUN 41 POC Glu range since last assessment: 115-335 Pertinent Medications Reviewed Height 5 ft 8 in Weight 158.6 kg [place] Body Weight (kg) 63.63 BMI 53.1 Weight Status Morbidly Obese Subjective/Other Information Per RN, pt tolerating TF at goal rate. Percent of energy/protein needs met: 126% energy needs #1 Nutrition Diagnosis Inadequate oral intake Diagnosis Progress(for reassessment Continues documentation) Is patient on ventilator? No Is Patient Ambulatory and/or Out of Bed No REE-([place] Jeor-confined to bed) 0107.292 Calculation Used for Recommendations 65-70% energy needs Additional Notes Estimated energy needs: 1760- 1896 kcal/day Pro needs up to 2.5g/kg IBW: up to 159g/day Fluid needs 1ml/kcal Nutrition Intervention Nutrition Support: Decrease TF goal rate to 65ml/ hr with 100ml water flush q4h. Kcal 1,872 Protein (gm) 94 Carbohydrates (gm) 179 Fat (gm) 94 Fluid (mL) 1,256 Fiber (gm) 25 Goal #1 TF tolerance Goal #2 TF to meet 65-70% energy and at least 75% pro needs Follow-Up By: 05/03/21 Additional Comments F/U: TF rate decrease, labs
--- NOTE | 2021-04-30 13:27 | Progress Note ---
Assessment and Plan Cultures: 04/24/2021 Blood culture: GBS Blood culture 04/26/2021: No growth A/P: 51 yo F with DM2, HTN, morbid obesity presented with sepsis #Acute sepsis: secondary to group B streptococcus bacteremia, source could be the R knee. #Group B streptococcus bacteremia: Reports a history of previous right knee septic arthritis and has been treated with antibiotics at least twice in the past. X-ray shows large joint effusion. TTE without any evidence of valvular vegetations/endocarditis. #DM2: tight glycemic control for best outcomes. #Right knee wound/?septic arthritis Recs: -Continue ceftriaxone 2g q24h -Reports a history of previous right knee septic arthritis and has been treated with antibiotics at least twice in the past. X-ray shows large joint effusion. Follow-up orthopedics consult for arthrocentesis, if it shows signs of chronic septic arthritis, patient will need surgical intervention. Note that patient has been on IV antibiotics for the last several days, hence cell count from synovial fluid may not necessarily meet septic arthritis criteria -Right knee MRI with and without contrast, rule out underlying septic arthritis/osteomyelitis, especially given chronicity. May need to extend her abx course Discussed with KIAN Lugo MD, FACPALYSSA [facility] O: [phone] F: [phone] Subjective Date of service: 04/30/21 Principal diagnosis: HAGMA; DKA; AMS; Obesity; Osteoarthritis; Hypercalcemia Interval history: Low-grade fever. Denies any new complaints. WBC is up. Arthrocentesis not done yet. Objective - Exam Narrative Exam: Physical Exam: Constitutional: Alert, cooperative. No acute distress Head, Ears, Nose: Normocephalic, atraumatic. External ears, nose normal Eyes: Conjunctivae/corneas clear. No icterus. No ptosis. Neck: Supple, no meningeal signs Cardiovascular: S1, S2 + Respiratory: Good air entry, clear to auscultation bilaterally GI: Soft, non-tender; bowel sounds normal. No peritoneal signs Musculoskeletal: Right knee with mild swelling and tenderness, superficial wound present Skin: No rash or abscess Hem/Lymphatic: No palpable cervical or supraclavicular nodes. No lymphangitis Psych: Mood ok. Affect normal Neurological: Awake, alert, oriented. No gross abnormality - Constitutional Vitals: Vital Signs Temp Pulse Resp BP Pulse Ox 100.2 F H 103 H 31 H 127/67 97 04/30/21 12:00 04/30/21 12:00 04/30/21 12:00 04/30/21 12:00 04/30/21 12:00 Temperature -Last 24 Hours Temperature 100.2 F Temperature 98.8 F Temperature 97.6 F Temperature 98.3 F - Labs CBC & Chem 7: 04/30/21 04:41 04/30/21 04:41 Labs: Abnormal lab results 04/30/21 04/30/21 04/30/21 Range/Units 00:23 04:41 04:41 WBC 14.4 H (4.5-11.0) K/mm3 RBC 3.12 L (3.65-5.03) M/mm3 Hgb 7.8 L (10.1-14.3) gm/dl Hct 24.7 L (30.3-42.9) % MCH 25 L (28-32) pg Plt Count 138 L (140-440) K/mm3 Chloride 108.0 H (98-107) mmol/L BUN 42 H (7-17) mg/dL Glucose 215 H (65-100) mg/dL POC Glucose 126 H (70-105) mg/dL Alkaline Phosphatase 171 H (35-129) units/L Total Protein 6.1 L (6.3-8.2) g/dL Albumin 1.4 L (3.9-5) g/dL 04/30/21 04/30/21 Range/Units 05:22 11:55 WBC (4.5-11.0) K/mm3 RBC (3.65-5.03) M/mm3 Hgb (10.1-14.3) gm/dl Hct (30.3-42.9) % MCH (28-32) pg Plt Count (140-440) K/mm3 Chloride (98-107) mmol/L BUN (7-17) mg/dL Glucose (65-100) mg/dL POC Glucose 196 H 224 H (70-105) mg/dL Alkaline Phosphatase (35-129) units/L Total Protein (6.3-8.2) g/dL Albumin (3.9-5) g/dL
[2021-04-30] MEDS: cefTRIAXone/NS 2 GM/100 ML 2 GM/100 ML BAG IV SCH (14:01)
--- NOTE | 2021-04-30 16:56 | Progress Note ---
Assessment and Plan Right knee pain and swelling hx of recurrent sepsis right knee, radiographically appears more osteomyelitic await C/S, more likely require another I&D soon Subjective Date of service: 04/30/21 Principal diagnosis: HAGMA; DKA; AMS; Obesity; Osteoarthritis; Hypercalcemia Interval history: more alert now, hx of recurrent sepsis right knee... Objective Vital signs: Vital Signs - 12hr 04/30/21 04/30/21 04/30/21 05:00 06:01 07:00 Temperature Pulse Rate 105 H 103 H 95 H Pulse Rate [ Bilateral] Pulse Rate [ From Monitor] Respiratory 29 H 25 H 26 H Rate Respiratory Rate [Bilateral ] Blood Pressure 136/66 112/57 106/56 O2 Sat by Pulse 95 96 97 Oximetry 04/30/21 04/30/21 04/30/21 07:35 08:00 09:00 Temperature Pulse Rate 102 H 105 H Pulse Rate [ 100 H Bilateral] Pulse Rate [ 102 H From Monitor] Respiratory 26 H 27 H Rate Respiratory 18 Rate [Bilateral ] Blood Pressure 122/68 114/53 O2 Sat by Pulse 99 97 97 Oximetry 04/30/21 04/30/21 04/30/21 10:00 11:00 12:00 Temperature 100.2 F H Pulse Rate 101 H 105 H 103 H Pulse Rate [ Bilateral] Pulse Rate [ 103 H From Monitor] Respiratory 30 H 33 H 31 H Rate Respiratory Rate [Bilateral ] Blood Pressure 120/64 108/71 103/59 O2 Sat by Pulse 97 97 97 Oximetry 04/30/21 04/30/21 04/30/21 13:00 14:00 15:00 Temperature Pulse Rate 106 H 104 H 103 H Pulse Rate [ Bilateral] Pulse Rate [ From Monitor] Respiratory 29 H 35 H 32 H Rate Respiratory Rate [Bilateral ] Blood Pressure 132/72 107/59 125/61 O2 Sat by Pulse 98 96 98 Oximetry Narrative Exam: right knee - under sterile conditions, 3cc of turbid fluid aspirated and sent to micro for C&S... - Labs CBC & BMP: 04/30/21 04:41 04/30/21 04:41 Labs: Abnormal lab results 04/30/21 04/30/21 04/30/21 Range/Units 00:23 04:41 04:41 WBC 14.4 H (4.5-11.0) K/mm3 RBC 3.12 L (3.65-5.03) M/mm3 Hgb 7.8 L (10.1-14.3) gm/dl Hct 24.7 L (30.3-42.9) % MCH 25 L (28-32) pg Plt Count 138 L (140-440) K/mm3 Chloride 108.0 H (98-107) mmol/L BUN 42 H (7-17) mg/dL Glucose 215 H (65-100) mg/dL POC Glucose 126 H (70-105) mg/dL Alkaline Phosphatase 171 H (35-129) units/L Total Protein 6.1 L (6.3-8.2) g/dL Albumin 1.4 L (3.9-5) g/dL 04/30/21 04/30/21 Range/Units 05:22 11:55 WBC (4.5-11.0) K/mm3 RBC (3.65-5.03) M/mm3 Hgb (10.1-14.3) gm/dl Hct (30.3-42.9) % MCH (28-32) pg Plt Count (140-440) K/mm3 Chloride (98-107) mmol/L BUN (7-17) mg/dL Glucose (65-100) mg/dL POC Glucose 196 H 224 H (70-105) mg/dL Alkaline Phosphatase (35-129) units/L Total Protein (6.3-8.2) g/dL Albumin (3.9-5) g/dL
[2021-04-30] MEDS: SENNOSIDES 8.6 MG TAB PO SCH (21:55)
[2021-05-01] MEDS: INSULIN LISPRO 100 UNIT/ML SUB-Q SCH ×4 (04:16→17:37)
[2021-05-01] MEDS: HYDROmorphone 1 MG/1 ML INJ IV PRN (04:16)
[2021-05-01] MEDS: FREE WATER PO SCH ×6 (04:16→23:03)
[2021-05-01 06:08] LABS: Hematocrit 23.1 % (30.3-42.9); Hemoglobin 7.4 gm/dl (10.1-14.3); Mean Corpuscular HGB Conc 32 % (30-34); Mean Corpuscular Volume 78 fl (79-97); Platelet Count 160 K/mm3 (140-440); Red Blood Count 2.97 M/mm3 (3.65-5.03); Red Cell Distribution Width 14.9 % (13.2-15.2)
[2021-05-01 06:33] LABS: BUN/Creatinine Ratio 41; Blood Urea Nitrogen 41 mg/dL (7-17); Hemolysis Index 0
[2021-05-01] MEDS: ALBUTEROL 2.5 MG/3 ML NEBU IH SCH ×3 (08:30→19:43)
[2021-05-01] MEDS: INSULIN NPH/REGULAR 70/30 INJ SUB-Q SCH ×2 (08:31→17:36)
[2021-05-01] MEDS: ENOXAPARIN 40 MG/0.4 ML INJ SUB-Q SCH ×2 (10:49→22:30)
[2021-05-01] MEDS: FAMOTIDINE 20 MG TAB FEEDTUBE SCH (10:49)
--- NOTE | 2021-05-01 11:41 | Progress Note ---
Assessment and Plan Cultures: 04/24/2021 Blood culture: GBS Blood culture 04/26/2021: No growth A/P: 51 yo F with DM2, HTN, morbid obesity presented with sepsis #Acute sepsis: secondary to group B streptococcus bacteremia, source could be the R knee. #Group B streptococcus bacteremia: Reports a history of previous right knee septic arthritis and has been treated with antibiotics at least twice in the past. X-ray shows large joint effusion. TTE without any evidence of valvular vegetations/endocarditis. #DM2: tight glycemic control for best outcomes. #Right knee wound/?septic arthritis Recs: -Continue ceftriaxone 2g q24h -underwent arthrocentesis, 3 cc of turbid fluid was aspirated. Will call lab to add cell count. Cultures may remain negative due to patient having received several days of IV abx -anticipate need for I&D by orthopedics -may need a longer ~6 weeks course of IV abx after surgery due to her history of recurrence / chronicity -remove Sanchez catheter if possible Holly Leroy MD, FACP, [facility] O: [phone] F: [phone] Subjective Date of service: 05/01/21 Principal diagnosis: HAGMA; DKA; AMS; Obesity; Osteoarthritis; Hypercalcemia Interval history: Low grade fever. Was seen by orthopedics, underwent arthrocentesis, 3 cc of turbid fluid was aspirated. No complaints. Objective - Exam Narrative Exam: Physical Exam: Constitutional: Alert, cooperative. No acute distress Head, Ears, Nose: Normocephalic, atraumatic. External ears, nose normal Eyes: Conjunctivae/corneas clear. No icterus. No ptosis. Neck: Supple, no meningeal signs Cardiovascular: S1, S2 + Respiratory: Good air entry, clear to auscultation bilaterally GI: Soft, non-tender; bowel sounds normal. No peritoneal signs Musculoskeletal: Right knee with mild swelling and tenderness, superficial wound present Skin: No rash or abscess Hem/Lymphatic: No palpable cervical or supraclavicular nodes. No lymphangitis Psych: Mood ok. Affect normal Neurological: Awake, alert, oriented. No gross abnormality - Constitutional Vitals: Vital Signs Temp Pulse Resp BP Pulse Ox 99.3 F 112 H 18 124/79 96 05/01/21 04:01 05/01/21 04:01 05/01/21 04:01 05/01/21 04:01 05/01/21 04:48 Temperature -Last 24 Hours Temperature 99.3 F Temperature 99.1 F Temperature 99.8 F Temperature 99.6 F Temperature 100.2 F - Labs CBC & Chem 7: 05/01/21 05:37 05/01/21 05:37 Labs: Abnormal lab results 04/30/21 04/30/21 05/01/21 Range/Units 11:55 17:36 04:01 WBC (4.5-11.0) K/mm3 RBC (3.65-5.03) M/mm3 Hgb (10.1-14.3) gm/dl Hct (30.3-42.9) % MCV (79-97) fl MCH (28-32) pg Chloride (98-107) mmol/L BUN (7-17) mg/dL Glucose (65-100) mg/dL POC Glucose 224 H 196 H 122 H (70-105) mg/dL Calcium (8.4-10.2) mg/dL 05/01/21 05/01/21 05/01/21 Range/Units 05:37 05:37 06:27 WBC 16.9 H (4.5-11.0) K/mm3 RBC 2.97 L (3.65-5.03) M/mm3 Hgb 7.4 L (10.1-14.3) gm/dl Hct 23.1 L (30.3-42.9) % MCV 78 L (79-97) fl MCH 25 L (28-32) pg Chloride 108.4 H (98-107) mmol/L BUN 41 H (7-17) mg/dL Glucose 124 H (65-100) mg/dL POC Glucose 126 H (70-105) mg/dL Calcium 8.0 L (8.4-10.2) mg/dL
[2021-05-01] MEDS: cefTRIAXone/NS 2 GM/100 ML 2 GM/100 ML BAG IV SCH (14:01)
--- NOTE | 2021-05-01 16:22 | Progress Note ---
Assessment and Plan Assessment and plan: This is a 51-year-old female with DM, noncompliance, obesity, arthritis and right knee surgery admitted for DKA Continue tube feeding, failed swallow evaluation, high risk for aspiration Neuro: Acute metabolic encephalopathy (improved significantly) -Reorientation as needed -Avoid delirium -Maintain sleep-wake cycle -PT OT consulted, appreciate recommendation Cardio: NAD -Blood pressure monitoring per protocol -Echocardiogram shows mildly dilated right heart chamber, mild to moderate TR, moderate pulmonary hypertension, RVSP 50-55, LVEF 45-50 Respiratory: Acute hypoxic respiratory failure -Currently on nasal cannula -S/p Ventimask -CCM consulted, appreciate recommendations -Aggressive oral and pulmonary hygiene -Scheduled duo nebs with CPT -SPO2 monitoring GI: Morbid obesity -Nutrition consult for tube feeding -ST consult for speech evaluation -PPI Pepcid -BR: Senokot -24 hours +547 mL : Hypernatremia (resolved) , hyperchloremia (improving) -free water flushes 150 ml q4hr -Trend BMP -Purwick in place ID: Sepsis, group B Streptococcus bacteremia, h/o right septic arthritis -Infectious disease consulted, appreciate recommendations -ABX therapy per ID: Ceftriaxone 2 g every 24 hours till 05/10 -Right knee x-ray shows large joint effusion -MR pending -Orthopedic consult for arthrocentesis -TTE without evidence of vegetations/endocarditis -Monitor fever and temp curve -Follow-up cultures Heme: Leukocytosis -Lovenox subcu -SCDs to bilateral LE while in bed -Trend CBC -Transfuse hemoglobin less than 7 Endo: S/p DKA, h/o uncontrolled DM -Hemoglobin A1c 18.3 -S/p DKA protocol and insulin drip -SSI -Long-acting insulin -Avoid hypoglycemia -Accu-Cheks every 6 Closely monitor the patient and adjust management as needed Plan of care reviewed with the patient and her nurse History Interval history: This is a 51-year-old female with DM, OA, medication noncompliance, obesity who presented to emergency department on 04/23 with complaints of weakness, elevated blood glucose levels, nausea, polydipsia, polyuria and diminished oral intake over the past week with worsening symptoms over the past 2 days. Patient acknowledges noncompliance with oral antihyperglycemic therapy. Patient was seen and evaluated in the emergency department and found to have lab work consistent with diabetic ketoacidosis, metabolic encephalopathy, metabolic acidosis and volume depletion. Patient was admitted to the hospital service to the ICU initiated DKA protocol with CCM consult. 04/24/21- Patient remains on DKA protocol. Still very lethargic this am, following simple commands. Rt. knee wound and swelling noted, and nursing staff also reported thick, white vaginal discharge. C/f sepsis, blood culture ordered, this am UA noted. Will start patient on PO difflucan for possible yeast infection, pending culture data. Anion GAP is still 18 this am, will continue DKA protocol for now. Continue to monitor electrolytes, serial BMP ordered. 04/25/21- Patient appears to be in distress this am, now on 3L NC. Lactic acidosis worsen overnight, X1L LR bolus adminstered. Ordered placed for stat ABGs. Blood culture growing GPC 3/4 bottles, patient remains afebrile with no leukocytosis. IV abx was escalated, ID consulted. Ortho consult is still pendi ng, order placed for XR of the Rt. knee. Given patient worsen condition and high anio, gap, will continue insulin gtt for now. Low K and mg was repleted. Continue serial BMP,mg, and phosp 04/26/21- Patient appears more alert and awake this am, talkative, and following commands. Remains on DKA protocol, gap is closedX2, will transition patient to SSI and basal insulin and initiate enteral nutrition. Patient remains afebrile overnight, continue IV Abx per ID. 04/27/21- TASHA overnight. Patient mentation continue to improve. Worsening hyperglycemia, patient is tolerating TF. 70/30 added BID and SSI was adjusted to high dose Q4hrs. D/W CCM patient is stable for transfer to [facility] 04/28/21- Patient continue to improve. Remains drowsy this am, however, easily arousable. Now on 4L NC, still requiring Q4hrs NT suction due to increased secretions and weak cough. Continue to wean O2 supplement as tolerated, F/U CXR in the am. Continue IV Abx per ID. 04/29: Patient is awake and alert with strong cough and able to clear own airway. Ortho consult for right knee aspiration pending. 04/30: No acute events reported overnight, patient will be transferred to the floor. MR of right knee ordered. History Interval history: I have seen and examined the patient at the bedside Patient's chart and medications reviewed Patient feels slightly better no new complaints Vital signs noted Patient is on tube feeding Hospitalist Physical - Constitutional Vitals: Temp Pulse Resp BP Pulse Ox 99.3 F 122 H 24 124/79 93 05/01/21 04:01 05/01/21 14:10 05/01/21 14:10 05/01/21 04:01 05/01/21 08:35 General appearance: Present: no acute distress, obese, other - EENT Eyes: Present: PERRL, EOM intact - Neck Neck: Present: supple, normal ROM - Respiratory Respiratory effort: normal Respiratory: bilateral: diminished, rhonchi, negative: rales, wheezing - Cardiovascular Rhythm: regular Heart Sounds: Present: S1 & S2 - Extremities Extremities: no ischemia, No edema - Abdominal General gastrointestinal: soft, non-tender, non-distended, normal bowel sounds - Integumentary Integumentary: Present: clear, warm - Psychiatric Psychiatric: appropriate mood/affect, cooperative - Neurologic Neurologic: moves all extremities HEART Score - HEART Score Troponin: Troponin T < 0.010 ng/mL (0.00-0.029) 04/23/21 10:33 Results - Labs CBC & Chem 7: 05/01/21 05:37 05/01/21 05:37 Labs: Laboratory Last Values WBC 16.9 K/mm3 (4.5-11.0) H 05/01/21 05:37 RBC 2.97 M/mm3 (3.65-5.03) L 05/01/21 05:37 Hgb 7.4 gm/dl (10.1-14.3) L 05/01/21 05:37 Hct 23.1 % (30.3-42.9) L 05/01/21 05:37 MCV 78 fl (79-97) L 05/01/21 05:37 MCH 25 pg (28-32) L 05/01/21 05:37 MCHC 32 % (30-34) 05/01/21 05:37 RDW 14.9 % (13.2-15.2) 05/01/21 05:37 Plt Count 160 K/mm3 (140-440) 05/01/21 05:37 Add Manual Diff Complete 04/25/21 08:10 Total Counted 100 04/25/21 08:10 Seg Neutrophils % Target Aircraft Controller 04/23/21 10:33 Seg Neuts % (Manual) 33.0 % (40.0-70.0) L 04/25/21 08:10 Band Neutrophils % 23.0 % 04/25/21 08:10 Lymphocytes % (Manual) 19.0 % (13.4-35.0) 04/25/21 08:10 Reactive Lymphs % (Man) 1.0 % 04/25/21 08:10 Monocytes % (Manual) 1.0 % (0.0-7.3) 04/25/21 08:10 Eosinophils % (Manual) 1.0 % (0.0-4.3) 04/25/21 08:10 Metamyelocytes % 3.0 % 04/23/21 10:33 Myelocytes % 22.0 % 04/25/21 08:10 Nucleated RBC % Not Reportable 04/25/21 08:10 Seg Neutrophils # Man 1.9 K/mm3 (1.8-7.7) 04/25/21 08:10 Band Neutrophils # 1.3 K/mm3 04/25/21 08:10 Lymphocytes # (Manual) 1.1 K/mm3 (1.2-5.4) L 04/25/21 08:10 Abs React Lymphs (Man) 0.1 K/mm3 04/25/21 08:10 Monocytes # (Manual) 0.1 K/mm3 (0.0-0.8) 04/25/21 08:10 Eosinophils # (Manual) 0.1 K/mm3 (0.0-0.4) 04/25/21 08:10 Basophils # (Manual) 0.0 K/mm3 (0.0-0.1) 04/25/21 08:10 Metamyelocytes # 0.0 K/mm3 04/25/21 08:10 Myelocytes # 1.3 K/mm3 04/25/21 08:10 Promyelocytes # 0.0 K/mm3 04/25/21 08:10 Blast Cells # 0.0 K/mm3 04/25/21 08:10 WBC Morphology Not Reportable 04/25/21 08:10 Hypersegmented Neuts Not Reportable 04/25/21 08:10 Hyposegmented Neuts Not Reportable 04/25/21 08:10 Hypogranular Neuts Not Reportable 04/25/21 08:10 Smudge Cells Not Reportable 04/25/21 08:10 Toxic Granulation Not Reportable 04/25/21 08:10 Toxic Vacuolation Not Reportable 04/25/21 08:10 Dohle Bodies Not Reportable 04/25/21 08:10 Pelger-Huet Anomaly Not Reportable 04/25/21 08:10 Thierry Rods Not Reportable 04/25/21 08:10 Platelet Estimate Consistent w auto 04/25/21 08:10 Clumped Platelets Not Reportable 04/25/21 08:10 Plt Clumps, EDTA Not Reportable 04/25/21 08:10 Large Platelets Not Reportable 04/25/21 08:10 Giant Platelets Not Reportable 04/25/21 08:10 Platelet Satelliting Not Reportable 04/25/21 08:10 Plt Morphology Comment Not Reportable 04/25/21 08:10 RBC Morphology Not Reportable 04/25/21 08:10 Dimorphic RBCs Not Reportable 04/25/21 08:10 Polychromasia Not Reportable 04/25/21 08:10 Hypochromasia 1+ 04/25/21 08:10 Poikilocytosis Not Reportable 04/25/21 08:10 Anisocytosis Not Reportable 04/25/21 08:10 Microcytosis Not Reportable 04/25/21 08:10 Macrocytosis Not Reportable 04/25/21 08:10 Spherocytes Not Reportable 04/25/21 08:10 Pappenheimer Bodies Not Reportable 04/25/21 08:10 Sickle Cells Not Reportable 04/25/21 08:10 Target Cells Not Reportable 04/25/21 08:10 Tear Drop Cells Not Reportable 04/25/21 08:10 Ovalocytes Not Reportable 04/25/21 08:10 Helmet Cells Not Reportable 04/25/21 08:10 [place]-Odin Bodies Not Reportable 04/25/21 08:10 [place] Rings Not Reportable 04/25/21 08:10 Kamari Cells Not Reportable 04/25/21 08:10 Bite Cells Not Reportable 04/25/21 08:10 Crenated Cell Not Reportable 04/25/21 08:10 Elliptocytes Not Reportable 04/25/21 08:10 Acanthocytes (Spur) Not Reportable 04/25/21 08:10 Rouleaux Not Reportable 04/25/21 08:10 Hemoglobin C Crystals Not Reportable 04/25/21 08:10 Schistocytes Not Reportable 04/25/21 08:10 Malaria parasites Not Reportable 04/25/21 08:10 Juan Bodies Not Reportable 04/25/21 08:10 Hem Pathologist Commnt No 04/25/21 08:10 ABG pH 7.426 pH Units (7.350-7.450) 04/25/21 11:20 ABG pCO2 25.3 mm Hg 04/25/21 11:20 ABG pO2 73.2 mm Hg (80.0-90.0) L 04/25/21 11:20 ABG HCO3 16.2 mmol/L (20.0-26.0) L 04/25/21 11:20 ABG O2 Saturation 96.9 % (95.0-99.0) 04/25/21 11:20 ABG O2 Content 11.6 (0.0-44) 04/25/21 11:20 ABG Base Excess -7.1 mmol/L (-2.0-3.0) L 04/25/21 11:20 ABG Hemoglobin 8.7 gm/dl (12.0-16.0) L 04/25/21 11:20 ABG Carboxyhemoglobin 1.6 % (0.0-5.0) 04/25/21 11:20 ABG Methemoglobin 0.6 % (0.0-1.5) 04/25/21 11:20 VBG pH 7.180 (7.320-7.420) L* 04/23/21 10:33 Oxyhemoglobin 94.8 % (95.0-99.0) L 04/25/21 11:20 FiO2 28 % 04/25/21 11:20 Sodium 144 mmol/L (137-145) 05/01/21 05:37 Potassium 4.5 mmol/L (3.6-5.0) 05/01/21 05:37 Chloride 108.4 mmol/L (98-107) H 05/01/21 05:37 Carbon Dioxide 28 mmol/L (22-30) 05/01/21 05:37 Anion Gap 12 mmol/L 05/01/21 05:37 BUN 41 mg/dL (7-17) H 05/01/21 05:37 Creatinine 1.0 mg/dL (0.6-1.2) 05/01/21 05:37 Estimated GFR > 60 ml/min 05/01/21 05:37 BUN/Creatinine Ratio 41 % 05/01/21 05:37 Glucose 124 mg/dL (65-100) H 05/01/21 05:37 POC Glucose 231 mg/dL (70-105) H 05/01/21 13:45 Hemoglobin A1c 18.3 % (4-6) H 04/24/21 04:16 Lactic Acid 1.70 mmol/L (0.7-2.0) 04/26/21 05:02 Uric Acid 7.5 mg/dL (3.5-7.6) 04/24/21 12:14 Calcium 8.0 mg/dL (8.4-10.2) L 05/01/21 05:37 Phosphorus 4.50 mg/dL (2.5-4.5) 04/30/21 04:41 Magnesium 2.20 mg/dL (1.7-2.3) 04/30/21 04:41 Total Bilirubin 0.50 mg/dL (0.1-1.2) 04/30/21 04:41 AST 12 units/L (5-40) 04/30/21 04:41 ALT 7 units/L (7-56) 04/30/21 04:41 Alkaline Phosphatase 171 units/L (35-129) H 04/30/21 04:41 Ammonia 37.0 umol/L (25-60) 04/23/21 10:33 Total Creatine Kinase 83 units/L (30-135) 04/23/21 10:33 Troponin T < 0.010 ng/mL (0.00-0.029) 04/23/21 10:33 C-Reactive Protein 24.30 mg/dL (0.00-1.30) H 04/24/21 18:24 Total Protein 6.1 g/dL (6.3-8.2) L 04/30/21 04:41 Albumin 1.4 g/dL (3.9-5) L 04/30/21 04:41 Albumin/Globulin Ratio 0.3 % 04/30/21 04:41 Procalcitonin 21.10 ng/mL (<0.15) 04/24/21 12:14 TSH 1.400 mlU/mL (0.270-4.200) 04/23/21 10:33 Urine Color Katie (Yellow) 04/27/21 16:16 Urine Turbidity Cloudy (Clear) 04/27/21 16:16 Urine pH 5.0 (5.0-7.0) 04/27/21 16:16 Ur Specific [employer] 1.014 (1.003-1.030) 04/27/21 16:16 Urine Protein <15 mg/dl mg/dL (Negative) 04/27/21 16:16 Urine Glucose (UA) >=500 mg/dL (Negative) 04/27/21 16:16 Urine Ketones Neg mg/dL (Negative) 04/27/21 16:16 Urine Blood Neg (Negative) 04/27/21 16:16 Urine Nitrite Neg (Negative) 04/27/21 16:16 Urine Bilirubin Neg (Negative) 04/27/21 16:16 Urine Urobilinogen 2.0 mg/dL (<2.0) 04/27/21 16:16 Ur Leukocyte Esterase Neg (Negative) 04/27/21 16:16 Urine WBC (Auto) 1.0 /HPF (0.0-6.0) 04/27/21 16:16 Urine RBC (Auto) 1.0 /HPF (0.0-6.0) 04/27/21 16:16 U Epithel Cells (Auto) < 1.0 /HPF (0-13.0) 04/24/21 08:40 Urine Bacteria (Auto) 1+ /HPF (Negative) 04/27/21 16:16 Amorphous Crystals Few 04/27/21 16:16 Urine Yeast (Budding) 3+ /HPF 04/27/21 16:16 Vancomycin Trough 38.2 ug/mL (5.0-20.0) H 04/26/21 19:27 Coronavirus (PCR) Negative (Negative) 04/25/21 Unknown Microbiology: Microbiology 04/30/21 16:47 Knee - Right Wound Culture - Final Beta Hemolytic Strep Group B 04/26/21 09:04 Peripheral/Venous Blood Culture - Final NO GROWTH AFTER 5 DAYS 04/26/21 05:02 Peripheral/Venous Blood Culture - Final NO GROWTH AFTER 5 DAYS Sanchez/IV: Voiding Method Indwelling Catheter Active Medications - Current Medications Current Medications: Generic Name Dose Route Start Last Admin Trade Name Freq PRN Reason Stop Dose Admin Acetaminophen 650 mg 04/23/21 11:54 04/30/21 12:15 Acetaminophen 325 Mg Tab PO 650 mg Q6H PRN Administration Pain MILD(1-3)/Fever >100.5/SMITH Albuterol 2.5 mg 04/29/21 20:00 05/01/21 14:10 Albuterol 2.5 Mg/3 Ml Nebu IH 2.5 mg TIDRT AMIRA Administration Lipase/Protease/Amylase 1 each 04/29/21 15:42 Lipase 10,500/Protease 25,000/Amylase 43,750 (Units) Dr Rodriguez FEEDTUBE PRN PRN For Clogged Feeding Tube Dextrose 50 ml 04/26/21 14:00 Dextrose 50% In Water (25gm) 50 Ml Syringe IV Q30MIN PRN Hypoglycemia Protocol Enoxaparin Sodium 40 mg 04/24/21 22:00 05/01/21 10:49 Enoxaparin 40 Mg/0.4 Ml Inj SUB-Q 40 mg BID AMIRA Administration Protocol Famotidine 20 mg 04/29/21 10:00 05/01/21 10:49 Famotidine 20 Mg Tab FEEDTUBE 20 mg DAILY AMIRA Administration Hydromorphone HCl 0.5 mg 04/23/21 11:54 05/01/21 04:16 Hydromorphone 1 Mg/1 Ml Inj IV 0.5 mg Q23H PRN Administration Pain , Severe (7-10) Ceftriaxone Sodium 2 gm in 100 mls @ 200 mls/hr 04/25/21 14:00 05/01/21 14:01 Rocephin/Ns 2 Gm/100 Ml IV 05/10/21 14:29 200 mls/hr Q24H AMIRA Administration Protocol Insulin Human Isoph/Insulin Regular 45 unit 04/30/21 17:00 05/01/21 08:31 Insulin Nph/Regular 70/30 Inj SUB-Q Not Given BIDDIAB AMIRA Insulin Human Lispro 0 unit 04/29/21 12:00 05/01/21 14:00 Insulin Lispro 100 Unit/Ml SUB-Q 4 unit Q6HR AMIRA Administration Protocol Oxycodone/Acetaminophen 1 tab 04/23/21 11:54 Oxycodone /Acetaminophen 5-325mg Tab PO Q16H PRN Pain, Moderate (4-6) Senna 17.2 mg 04/25/21 22:00 04/30/21 21:55 Sennosides 8.6 Mg Tab PO 17.2 mg QHS AMIRA Administration Simple Syrup 15 ml 04/29/21 15:42 Simple Syrup 15 Ml FEEDTUBE PRN PRN Hypoglycemia Simple Syrup 30 ml 04/29/21 15:42 Simple Syrup 15 Ml FEEDTUBE PRN PRN Hypoglycemia Sodium Bicarbonate 325 mg 04/29/21 15:42 Sodium Bicarbonate 325 Mg Tab FEEDTUBE PRN PRN For Clogged Feeding Tube Sodium Chloride 10 ml 04/23/21 22:00 05/01/21 10:49 Sodium Chloride 0.9% 10 Ml Flush Syringe IV 10 ml BID AMIRA Administration Sodium Chloride 10 ml 04/23/21 11:54 04/24/21 11:15 Sodium Chloride 0.9% 10 Ml Flush Syringe IV 10 ml PRN PRN Administration LINE FLUSH Nutrition/Malnutrition Assess - Dietary Evaluation Nutrition/Malnutrition Findings: Nutrition Notes Start: 04/26/21 09:53 Freq: Status: Active Protocol: Document 04/29/21 15:44 HOANG (Rec: 04/29/21 15:50 HOANG [id number]) Nutrition Notes Initial or Follow up Reassessment Current Diagnosis Diabetes Other Pertinent Diagnosis DKA, OA Current Diet TF - Glucerna 1.2 at 83ml/hr Labs/Tests Na 146 BUN 41 POC Glu range since last assessment: 115-335 Pertinent Medications Reviewed Height 5 ft 8 in Weight 158.6 kg [place] Body Weight (kg) 63.63 BMI 53.1 Weight Status Morbidly Obese Subjective/Other Information Per RN, pt tolerating TF at goal rate. Percent of energy/protein needs met: 126% energy needs #1 Nutrition Diagnosis Inadequate oral intake Diagnosis Progress(for reassessment Continues documentation) Is patient on ventilator? No Is Patient Ambulatory and/or Out of Bed No REE-([facility]-confined to bed) 3683.053 Calculation Used for Recommendations 65-70% energy needs Additional Notes Estimated energy needs: 1760- 1896 kcal/day Pro needs up to 2.5g/kg IBW: up to 159g/day Fluid needs 1ml/kcal Nutrition Intervention Nutrition Support: Decrease TF goal rate to 65ml/ hr with 100ml water flush q4h. Kcal 1,872 Protein (gm) 94 Carbohydrates (gm) 179 Fat (gm) 94 Fluid (mL) 1,256 Fiber (gm) 25 Goal #1 TF tolerance Goal #2 TF to meet 65-70% energy and at least 75% pro needs Follow-Up By: 05/03/21 Additional Comments F/U: TF rate decrease, labs
--- NOTE | 2021-05-01 17:17 | Progress Note ---
Assessment and Plan Right knee pain and swelling hx of recurrent sepsis right knee, radiographically appears more osteomyelitic await C/S, more likely require another I&D soon Subjective Date of service: 05/01/21 Principal diagnosis: HAGMA; DKA; AMS; Obesity; Osteoarthritis; Hypercalcemia Interval history: no c/o's noted Objective Vital signs: Vital Signs - 12hr 05/01/21 05/01/21 05/01/21 08:30 08:35 14:10 Pulse Rate [ 120 H 122 H Bilateral] Respiratory 24 24 Rate [Bilateral ] O2 Sat by Pulse 93 Oximetry Narrative Exam: gram smear right knee - many WBC's, no organisms seen - Labs CBC & BMP: 05/01/21 05:37 05/01/21 05:37 Labs: Abnormal lab results 04/23/21 04/30/21 05/01/21 Range/Units 14:04 17:36 04:01 WBC (4.5-11.0) K/mm3 RBC (3.65-5.03) M/mm3 Hgb (10.1-14.3) gm/dl Hct (30.3-42.9) % MCV (79-97) fl MCH (28-32) pg Chloride (98-107) mmol/L BUN (7-17) mg/dL Glucose (65-100) mg/dL POC Glucose 518 H 196 H 122 H (70-105) mg/dL Calcium (8.4-10.2) mg/dL 05/01/21 05/01/21 05/01/21 Range/Units 05:37 05:37 06:27 WBC 16.9 H (4.5-11.0) K/mm3 RBC 2.97 L (3.65-5.03) M/mm3 Hgb 7.4 L (10.1-14.3) gm/dl Hct 23.1 L (30.3-42.9) % MCV 78 L (79-97) fl MCH 25 L (28-32) pg Chloride 108.4 H (98-107) mmol/L BUN 41 H (7-17) mg/dL Glucose 124 H (65-100) mg/dL POC Glucose 126 H (70-105) mg/dL Calcium 8.0 L (8.4-10.2) mg/dL 05/01/21 05/01/21 Range/Units 13:45 16:40 WBC (4.5-11.0) K/mm3 RBC (3.65-5.03) M/mm3 Hgb (10.1-14.3) gm/dl Hct (30.3-42.9) % MCV (79-97) fl MCH (28-32) pg Chloride (98-107) mmol/L BUN (7-17) mg/dL Glucose (65-100) mg/dL POC Glucose 231 H 266 H (70-105) mg/dL Calcium (8.4-10.2) mg/dL
[2021-05-01] MEDS: oxyCODONE /ACETAMINOPHEN 5-325MG TAB PO PRN (17:38)
--- NOTE | 2021-05-01 19:34 | Progress Note ---
Assessment and Plan 51 YO Female with DM, OA, Medication Noncompliance, Obesity presents to ED for evaluation. Patient reports "I feel sick". Patient states she had experienced weakness, elevated blood glucose levels, nausea, polydipsia, polyuria, as well a s diminished oral intake over the past 1 week with worsening symptoms over the last 2 days. Patient acknowledges noncompliance with oral antihyperglycemic therapy. Patient states that her weight has gotten progressively worse and and that she is "too weak to walk". EMS was notified and upon arrival the patient was found to be in distress and subsequent transported to [facility] for further care and evaluation of the aforementioned symptoms. The patient was seen and evaluated in the emergency department. All lab and imaging studies reviewed. The patient was found to have diabetic ketoacidosis, metabolic encephalopathy, as well as metabolic acidosis, and volume depletion. Patient mated to ICU and initiated on DKA protocol. Critical care team consulted in ED. Patient has fever, chills, chest pain, palpitation, productive cough, skin rash, recent contact, known exposure to COVID-1 Patients sullivan virus PCR is negative. Patient awake, weak. Patient is on 3 litres O2. O2 saturation 95%. Patient febrile. Has leukocytosis. Blood pressure 147/80, Pulse 121, respirations 20. Chest xray done 04/29/21 reported Low lung volumes with bibasilar opacities/atelectasis persists, unchanged. No pneumothorax. Patient is on cephazolin, S/C Lovenox and famotidine - Patient Problems (1) High anion gap metabolic acidosis Current Visit: Yes Status: Acute Plan to address problem: Improved. To days anion gap is 12. (2) DKA (diabetic ketoacidosis) Current Visit: Yes Status: Acute Qualifiers: Diabetes mellitus type: type 1 Plan to address problem: Improved. Management as primary care. (3) Metabolic encephalopathy Current Visit: Yes Status: Acute Plan to address problem: Management as primary care and neurology. (4) Abscess of right foot Current Visit: No Status: Acute (5) Diabetic ulcer of right foot associated with diabetes mellitus due to underlying condition, with fat layer exposed Current Visit: No Status: Acute (6) Hypertension Current Visit: No Status: Chronic Plan to address problem: Management as primary care. Subjective Date of service: 05/01/21 Principal diagnosis: HAGMA; DKA; AMS; Obesity; Osteoarthritis; Hypercalcemia Interval history: 51 YO Female with DM, OA, Medication Noncompliance, Obesity presents to ED for evaluation. Patient reports "I feel sick". Patient states she had experienced weakness, elevated blood glucose levels, nausea, polydipsia, polyuria, as well as diminished oral intake over the past 1 week with worsening symptoms over the last 2 days. Patient acknowledges noncompliance with oral antihyperglycemic therapy. Patient states that her weight has gotten progressively worse and and that she is "too weak to walk". EMS was notified and upon arrival the patient was found to be in distress and subsequent transported to [facility] for further care and evaluation of the aforementioned symptoms. The patient was seen and evaluated in the emergency department. All lab and imaging studies reviewed. The patient was found to have diabetic ketoacidosis, metabolic encephalopathy, as well as metabolic acidosis, and volume depletion. Patient mated to ICU and initiated on DKA protocol. Critical care team consulted in ED. Patient has fever, chills, chest pain, palpitation, productive cough, skin rash, recent contact, known exposure to COVID-1 Patients sullivan virus PCR is negative. Patient awake, weak. Patient is on 3 litres O2. O2 saturation 95%. Patient febrile. Has leukocytosis. Blood pressure 147/80, Pulse 121, respirations 20. Chest xray done 04/29/21 reported Low lung volumes with bibasilar opacities/atelectasis persists, unchanged. No pneumothorax. Patient is on cephazolin, S/C Lovenox and famotidine. Objective Vital Signs - 12hr 05/01/21 05/01/21 05/01/21 08:30 08:35 14:10 Pulse Rate [ 120 H 122 H Bilateral] Respiratory 24 24 Rate [Bilateral ] O2 Sat by Pulse 93 Oximetry Constitutional: no acute distress, alert Eyes: non-icteric ENT: oropharynx moist Neck: supple, no lymphadenopathy, no JVD Effort: normal Ascultation: Bilateral: diminished breath sounds, rhonchi (and referred upper airway sounds) Percussion: Bilateral: not dull Cardiovascular: regular rate and rhythm, other (S1,S2) Gastrointestinal: hypoactive bowel sounds, soft, non-tender, non-distended Integumentary: rash (perineal) Extremities: no cyanosis, no edema, pulses normal, no ischemia or petechiae Neurologic: normal mental status, non-focal exam, pupils equal and round, other Psychiatric: anxious CBC and BMP: 05/03/21 07:05 05/03/21 07:05 ABG, PT/INR, D-dimer: ABG ABG pH 7.426 pH Units (7.350-7.450) 04/25/21 11:20 ABG pCO2 25.3 mm Hg 04/25/21 11:20 ABG pO2 73.2 mm Hg (80.0-90.0) L 04/25/21 11:20 ABG O2 Saturation 96.9 % (95.0-99.0) 04/25/21 11:20 Abnormal lab findings: Abnormal Labs 04/23/21 04/23/21 04/23/21 10:33 10:33 10:33 WBC RBC Hgb Hct MCV MCH 26 L Plt Count Seg Neuts % (Manual) Lymphocytes % (Manual) 7.0 L Nucleated RBC % 2.0 H Lymphocytes # (Manual) 0.5 L ABG pO2 ABG HCO3 ABG Base Excess ABG Hemoglobin VBG pH 7.180 L* Oxyhemoglobin Sodium 122 L Potassium 3.0 L Chloride 84.8 L Carbon Dioxide 6 L* BUN 49 H Creatinine 1.4 H Glucose 775 H* POC Glucose Hemoglobin A1c Lactic Acid Calcium 12.2 H* Phosphorus Magnesium Alkaline Phosphatase 130 H C-Reactive Protein Total Protein Albumin 2.9 L Vancomycin Trough 04/23/21 04/23/21 04/23/21 10:40 12:44 14:01 WBC RBC Hgb Hct MCV MCH Plt Count Seg Neuts % (Manual) Lymphocytes % (Manual) Nucleated RBC % Lymphocytes # (Manual) ABG pO2 ABG HCO3 ABG Base Excess ABG Hemoglobin VBG pH Oxyhemoglobin Sodium Potassium Chloride Carbon Dioxide BUN Creatinine Glucose POC Glucose > 600 H 550 H Hemoglobin A1c Lactic Acid Calcium Phosphorus 1.50 L Magnesium Alkaline Phosphatase C-Reactive Protein Total Protein Albumin Vancomycin Trough 04/23/21 04/23/21 04/23/21 14:01 14:04 14:56 WBC RBC Hgb Hct MCV MCH Plt Count Seg Neuts % (Manual) Lymphocytes % (Manual) Nucleated RBC % Lymphocytes # (Manual) ABG pO2 ABG HCO3 ABG Base Excess ABG Hemoglobin VBG pH Oxyhemoglobin Sodium 125 L Potassium 3.0 L Chloride 89.2 L Carbon Dioxide 6 L* BUN 45 H Creatinine 1.3 H Glucose 594 H* POC Glucose 518 H 425 H Hemoglobin A1c Lactic Acid Calcium 10.9 H Phosphorus Magnesium Alkaline Phosphatase C-Reactive Protein Total Protein Albumin Vancomycin Trough 04/23/21 04/23/21 04/23/21 15:43 15:48 17:21 WBC RBC Hgb Hct MCV MCH Plt Count Seg Neuts % (Manual) Lymphocytes % (Manual) Nucleated RBC % Lymphocytes # (Manual) ABG pO2 ABG HCO3 ABG Base Excess ABG Hemoglobin VBG pH Oxyhemoglobin Sodium 131 L Potassium 2.9 L* Chloride Carbon Dioxide 8 L* BUN 39 H Creatinine Glucose 434 H POC Glucose 410 H 407 H Hemoglobin A1c Lactic Acid Calcium 10.3 H Phosphorus Magnesium Alkaline Phosphatase C-Reactive Protein Total Protein Albumin Vancomycin Trough 04/23/21 04/23/21 04/23/21 18:07 19:13 19:54 WBC RBC Hgb Hct MCV MCH Plt Count Seg Neuts % (Manual) Lymphocytes % (Manual) Nucleated RBC % Lymphocytes # (Manual) ABG pO2 ABG HCO3 ABG Base Excess ABG Hemoglobin VBG pH Oxyhemoglobin Sodium 131 L Potassium 3.1 L Chloride 95.9 L Carbon Dioxide 7 L* BUN 39 H Creatinine Glucose 391 H POC Glucose 428 H 350 H Hemoglobin A1c Lactic Acid Calcium 11.2 H Phosphorus Magnesium Alkaline Phosphatase C-Reactive Protein Total Protein Albumin Vancomycin Trough 04/23/21 04/23/21 04/23/21 19:54 20:12 20:59 WBC RBC Hgb Hct MCV MCH Plt Count Seg Neuts % (Manual) Lymphocytes % (Manual) Nucleated RBC % Lymphocytes # (Manual) ABG pO2 ABG HCO3 ABG Base Excess ABG Hemoglobin VBG pH Oxyhemoglobin Sodium Potassium Chloride Carbon Dioxide BUN Creatinine Glucose POC Glucose 365 H 286 H Hemoglobin A1c Lactic Acid Calcium Phosphorus 1.10 L D Magnesium Alkaline Phosphatase C-Reactive Protein Total Protein Albumin Vancomycin Trough 04/23/21 04/23/21 04/23/21 22:05 22:23 22:59 WBC RBC Hgb Hct MCV MCH Plt Count Seg Neuts % (Manual) Lymphocytes % (Manual) Nucleated RBC % Lymphocytes # (Manual) ABG pO2 ABG HCO3 ABG Base Excess ABG Hemoglobin VBG pH Oxyhemoglobin Sodium 135 L Potassium 3.2 L Chloride Carbon Dioxide 10 L BUN 35 H Creatinine Glucose 300 H POC Glucose 257 H 238 H Hemoglobin A1c Lactic Acid Calcium 11.6 H Phosphorus Magnesium Alkaline Phosphatase C-Reactive Protein Total Protein Albumin Vancomycin Trough 04/23/21 04/24/21 04/24/21 23:57 00:10 00:56 WBC RBC Hgb Hct MCV MCH Plt Count Seg Neuts % (Manual) Lymphocytes % (Manual) Nucleated RBC % Lymphocytes # (Manual) ABG pO2 ABG HCO3 ABG Base Excess ABG Hemoglobin VBG pH Oxyhemoglobin Sodium Potassium 3.2 L Chloride Carbon Dioxide 13 L BUN 33 H Creatinine Glucose 267 H POC Glucose 223 H 254 H Hemoglobin A1c Lactic Acid Calcium 11.2 H Phosphorus 1.20 L Magnesium Alkaline Phosphatase C-Reactive Protein Total Protein Albumin Vancomycin Trough 04/24/21 04/24/21 04/24/21 01:58 02:58 03:57 WBC RBC Hgb Hct MCV MCH Plt Count Seg Neuts % (Manual) Lymphocytes % (Manual) Nucleated RBC % Lymphocytes # (Manual) ABG pO2 ABG HCO3 ABG Base Excess ABG Hemoglobin VBG pH Oxyhemoglobin Sodium Potassium Chloride Carbon Dioxide BUN Creatinine Glucose POC Glucose 264 H 251 H 200 H Hemoglobin A1c Lactic Acid Calcium Phosphorus Magnesium Alkaline Phosphatase C-Reactive Protein Total Protein Albumin Vancomycin Trough 04/24/21 04/24/21 04/24/21 04:16 04:16 04:16 WBC RBC Hgb Hct MCV MCH 26 L Plt Count Seg Neuts % (Manual) Lymphocytes % (Manual) Nucleated RBC % Lymphocytes # (Manual) ABG pO2 ABG HCO3 ABG Base Excess ABG Hemoglobin VBG pH Oxyhemoglobin Sodium Potassium Chloride 108.0 H Carbon Dioxide 13 L BUN 31 H Creatinine Glucose 243 H POC Glucose Hemoglobin A1c 18.3 H Lactic Acid Calcium 10.9 H Phosphorus 1.80 L D Magnesium Alkaline Phosphatase C-Reactive Protein Total Protein Albumin Vancomycin Trough 04/24/21 04/24/21 04/24/21 04:59 05:53 06:51 WBC RBC Hgb Hct MCV MCH Plt Count Seg Neuts % (Manual) Lymphocytes % (Manual) Nucleated RBC % Lymphocytes # (Manual) ABG pO2 ABG HCO3 ABG Base Excess ABG Hemoglobin VBG pH Oxyhemoglobin Sodium Potassium Chloride Carbon Dioxide BUN Creatinine Glucose POC Glucose 208 H 213 H 161 H Hemoglobin A1c Lactic Acid Calcium Phosphorus Magnesium Alkaline Phosphatase C-Reactive Protein Total Protein Albumin Vancomycin Trough 04/24/21 04/24/21 04/24/21 07:58 09:21 10:06 WBC RBC Hgb Hct MCV MCH Plt Count Seg Neuts % (Manual) Lymphocytes % (Manual) Nucleated RBC % Lymphocytes # (Manual) ABG pO2 ABG HCO3 ABG Base Excess ABG Hemoglobin VBG pH Oxyhemoglobin Sodium Potassium Chloride Carbon Dioxide BUN Creatinine Glucose POC Glucose 149 H 178 H 164 H Hemoglobin A1c Lactic Acid Calcium Phosphorus Magnesium Alkaline Phosphatase C-Reactive Protein Total Protein Albumin Vancomycin Trough 04/24/21 04/24/21 04/24/21 11:03 12:07 12:14 WBC RBC Hgb Hct MCV MCH Plt Count Seg Neuts % (Manual) Lymphocytes % (Manual) Nucleated RBC % Lymphocytes # (Manual) ABG pO2 ABG HCO3 ABG Base Excess ABG Hemoglobin VBG pH Oxyhemoglobin Sodium Potassium 3.2 L Chloride 108.7 H Carbon Dioxide 16 L BUN 24 H Creatinine Glucose 160 H POC Glucose 157 H 142 H Hemoglobin A1c Lactic Acid Calcium 10.5 H Phosphorus 0.70 L* D Magnesium Alkaline Phosphatase C-Reactive Protein Total Protein Albumin Vancomycin Trough 04/24/21 04/24/21 04/24/21 12:14 13:02 14:00 WBC RBC Hgb Hct MCV MCH Plt Count Seg Neuts % (Manual) Lymphocytes % (Manual) Nucleated RBC % Lymphocytes # (Manual) ABG pO2 ABG HCO3 ABG Base Excess ABG Hemoglobin VBG pH Oxyhemoglobin Sodium Potassium Chloride Carbon Dioxide BUN Creatinine Glucose POC Glucose 138 H 150 H Hemoglobin A1c Lactic Acid 2.50 H* Calcium Phosphorus Magnesium Alkaline Phosphatase C-Reactive Protein Total Protein Albumin Vancomycin Trough 04/24/21 04/24/21 04/24/21 15:14 16:07 17:11 WBC RBC Hgb Hct MCV MCH Plt Count Seg Neuts % (Manual) Lymphocytes % (Manual) Nucleated RBC % Lymphocytes # (Manual) ABG pO2 ABG HCO3 ABG Base Excess ABG Hemoglobin VBG pH Oxyhemoglobin Sodium Potassium Chloride Carbon Dioxide BUN Creatinine Glucose POC Glucose 145 H 148 H 156 H Hemoglobin A1c Lactic Acid Calcium Phosphorus Magnesium Alkaline Phosphatase C-Reactive Protein Total Protein Albumin Vancomycin Trough 04/24/21 04/24/21 04/24/21 18:12 18:24 19:55 WBC RBC Hgb Hct MCV MCH Plt Count Seg Neuts % (Manual) Lymphocytes % (Manual) Nucleated RBC % Lymphocytes # (Manual) ABG pO2 ABG HCO3 ABG Base Excess ABG Hemoglobin VBG pH Oxyhemoglobin Sodium Potassium Chloride 109.2 H Carbon Dioxide 15 L BUN 22 H Creatinine Glucose 159 H POC Glucose 153 H 176 H Hemoglobin A1c Lactic Acid Calcium Phosphorus 1.80 L D Magnesium Alkaline Phosphatase C-Reactive Protein 24.30 H Total Protein Albumin Vancomycin Trough 04/24/21 04/24/21 04/24/21 20:55 22:04 23:02 WBC RBC Hgb Hct MCV MCH Plt Count Seg Neuts % (Manual) Lymphocytes % (Manual) Nucleated RBC % Lymphocytes # (Manual) ABG pO2 ABG HCO3 ABG Base Excess ABG Hemoglobin VBG pH Oxyhemoglobin Sodium Potassium Chloride Carbon Dioxide BUN Creatinine Glucose POC Glucose 146 H 169 H Hemoglobin A1c Lactic Acid 3.10 H* Calcium Phosphorus Magnesium Alkaline Phosphatase C-Reactive Protein Total Protein Albumin Vancomycin Trough 04/24/21 04/25/21 04/25/21 23:13 00:05 01:28 WBC RBC Hgb Hct MCV MCH Plt Count Seg Neuts % (Manual) Lymphocytes % (Manual) Nucleated RBC % Lymphocytes # (Manual) ABG pO2 ABG HCO3 ABG Base Excess ABG Hemoglobin VBG pH Oxyhemoglobin Sodium Potassium Chloride Carbon Dioxide BUN Creatinine Glucose POC Glucose 144 H 150 H 142 H Hemoglobin A1c Lactic Acid Calcium Phosphorus Magnesium Alkaline Phosphatase C-Reactive Protein Total Protein Albumin Vancomycin Trough 04/25/21 04/25/21 04/25/21 02:03 03:07 04:17 WBC RBC Hgb Hct MCV MCH Plt Count Seg Neuts % (Manual) Lymphocytes % (Manual) Nucleated RBC % Lymphocytes # (Manual) ABG pO2 ABG HCO3 ABG Base Excess ABG Hemoglobin VBG pH Oxyhemoglobin Sodium Potassium Chloride Carbon Dioxide BUN Creatinine Glucose POC Glucose 148 H 161 H 158 H Hemoglobin A1c Lactic Acid Calcium Phosphorus Magnesium Alkaline Phosphatase C-Reactive Protein Total Protein Albumin Vancomycin Trough 04/25/21 04/25/21 04/25/21 05:48 06:52 07:58 WBC RBC Hgb Hct MCV MCH Plt Count Seg Neuts % (Manual) Lymphocytes % (Manual) Nucleated RBC % Lymphocytes # (Manual) ABG pO2 ABG HCO3 ABG Base Excess ABG Hemoglobin VBG pH Oxyhemoglobin Sodium Potassium Chloride Carbon Dioxide BUN Creatinine Glucose POC Glucose 136 H 137 H 143 H Hemoglobin A1c Lactic Acid Calcium Phosphorus Magnesium Alkaline Phosphatase C-Reactive Protein Total Protein Albumin Vancomycin Trough 04/25/21 04/25/21 04/25/21 08:10 08:10 08:10 WBC RBC Hgb 9.5 L Hct 28.8 L MCV MCH 26 L Plt Count Seg Neuts % (Manual) 33.0 L Lymphocytes % (Manual) Nucleated RBC % Lymphocytes # (Manual) 1.1 L ABG pO2 ABG HCO3 ABG Base Excess ABG Hemoglobin VBG pH Oxyhemoglobin Sodium Potassium 3.3 L Chloride 109.0 H Carbon Dioxide 16 L BUN 23 H Creatinine Glucose 151 H POC Glucose Hemoglobin A1c Lactic Acid 2.10 H* Calcium Phosphorus 2.20 L D Magnesium 1.60 L Alkaline Phosphatase C-Reactive Protein Total Protein Albumin Vancomycin Trough 04/25/21 04/25/21 04/25/21 08:53 09:59 11:20 WBC RBC Hgb Hct MCV MCH Plt Count Seg Neuts % (Manual) Lymphocytes % (Manual) Nucleated RBC % Lymphocytes # (Manual) ABG pO2 ABG HCO3 ABG Base Excess ABG Hemoglobin VBG pH Oxyhemoglobin Sodium Potassium Chloride Carbon Dioxide BUN Creatinine Glucose POC Glucose 132 H 141 H 141 H Hemoglobin A1c Lactic Acid Calcium Phosphorus Magnesium Alkaline Phosphatase C-Reactive Protein Total Protein Albumin Vancomycin Trough 04/25/21 04/25/21 04/25/21 11:20 12:04 12:26 WBC RBC Hgb Hct MCV MCH Plt Count Seg Neuts % (Manual) Lymphocytes % (Manual) Nucleated RBC % Lymphocytes # (Manual) ABG pO2 73.2 L ABG HCO3 16.2 L ABG Base Excess -7.1 L ABG Hemoglobin 8.7 L VBG pH Oxyhemoglobin 94.8 L Sodium Potassium 3.4 L Chloride 109.5 H Carbon Dioxide 14 L BUN 21 H Creatinine Glucose 155 H POC Glucose 129 H Hemoglobin A1c Lactic Acid Calcium Phosphorus 1.90 L Magnesium 1.60 L Alkaline Phosphatase C-Reactive Protein Total Protein Albumin Vancomycin Trough 04/25/21 04/25/21 04/25/21 13:04 13:58 15:09 WBC RBC Hgb Hct MCV MCH Plt Count Seg Neuts % (Manual) Lymphocytes % (Manual) Nucleated RBC % Lymphocytes # (Manual) ABG pO2 ABG HCO3 ABG Base Excess ABG Hemoglobin VBG pH Oxyhemoglobin Sodium Potassium Chloride Carbon Dioxide BUN Creatinine Glucose POC Glucose 135 H 140 H 134 H Hemoglobin A1c Lactic Acid Calcium Phosphorus Magnesium Alkaline Phosphatase C-Reactive Protein Total Protein Albumin Vancomycin Trough 04/25/21 04/25/21 04/25/21 16:00 18:56 18:58 WBC RBC Hgb Hct MCV MCH Plt Count Seg Neuts % (Manual) Lymphocytes % (Manual) Nucleated RBC % Lymphocytes # (Manual) ABG pO2 ABG HCO3 ABG Base Excess ABG Hemoglobin VBG pH Oxyhemoglobin Sodium Potassium Chloride Carbon Dioxide BUN Creatinine Glucose POC Glucose 135 H 170 H Hemoglobin A1c Lactic Acid 2.10 H* Calcium Phosphorus Magnesium Alkaline Phosphatase C-Reactive Protein Total Protein Albumin Vancomycin Trough 04/25/21 04/25/21 04/25/21 18:58 19:52 20:53 WBC RBC Hgb Hct MCV MCH Plt Count Seg Neuts % (Manual) Lymphocytes % (Manual) Nucleated RBC % Lymphocytes # (Manual) ABG pO2 ABG HCO3 ABG Base Excess ABG Hemoglobin VBG pH Oxyhemoglobin Sodium Potassium Chloride 110.1 H Carbon Dioxide 13 L BUN 23 H Creatinine Glucose 206 H POC Glucose 162 H 171 H Hemoglobin A1c Lactic Acid Calcium Phosphorus Magnesium 2.40 H Alkaline Phosphatase C-Reactive Protein Total Protein Albumin Vancomycin Trough 04/25/21 04/25/21 04/26/21 21:54 22:53 00:03 WBC RBC Hgb Hct MCV MCH Plt Count Seg Neuts % (Manual) Lymphocytes % (Manual) Nucleated RBC % Lymphocytes # (Manual) ABG pO2 ABG HCO3 ABG Base Excess ABG Hemoglobin VBG pH Oxyhemoglobin Sodium Potassium Chloride Carbon Dioxide BUN Creatinine Glucose POC Glucose 139 H 140 H 129 H Hemoglobin A1c Lactic Acid Calcium Phosphorus Magnesium Alkaline Phosphatase C-Reactive Protein Total Protein Albumin Vancomycin Trough 04/26/21 04/26/21 04/26/21 00:38 01:00 01:56 WBC RBC Hgb Hct MCV MCH Plt Count Seg Neuts % (Manual) Lymphocytes % (Manual) Nucleated RBC % Lymphocytes # (Manual) ABG pO2 ABG HCO3 ABG Base Excess ABG Hemoglobin VBG pH Oxyhemoglobin Sodium Potassium Chloride 112.6 H Carbon Dioxide 14 L BUN 22 H Creatinine Glucose 149 H POC Glucose 126 H 137 H Hemoglobin A1c Lactic Acid Calcium Phosphorus Magnesium 2.40 H Alkaline Phosphatase C-Reactive Protein Total Protein Albumin Vancomycin Trough 04/26/21 04/26/21 04/26/21 02:54 04:04 05:02 WBC RBC 3.44 L Hgb 8.9 L Hct 26.9 L MCV 78 L MCH 26 L Plt Count Seg Neuts % (Manual) Lymphocytes % (Manual) Nucleated RBC % Lymphocytes # (Manual) ABG pO2 ABG HCO3 ABG Base Excess ABG Hemoglobin VBG pH Oxyhemoglobin Sodium Potassium Chloride Carbon Dioxide BUN Creatinine Glucose POC Glucose 132 H 130 H Hemoglobin A1c Lactic Acid Calcium Phosphorus Magnesium Alkaline Phosphatase C-Reactive Protein Total Protein Albumin Vancomycin Trough 04/26/21 04/26/21 04/26/21 05:02 05:03 06:06 WBC RBC Hgb Hct MCV MCH Plt Count Seg Neuts % (Manual) Lymphocytes % (Manual) Nucleated RBC % Lymphocytes # (Manual) ABG pO2 ABG HCO3 ABG Base Excess ABG Hemoglobin VBG pH Oxyhemoglobin Sodium Potassium Chloride 114.8 H Carbon Dioxide 14 L BUN 22 H Creatinine Glucose 129 H POC Glucose 115 H 129 H Hemoglobin A1c Lactic Acid Calcium Phosphorus Magnesium Alkaline Phosphatase C-Reactive Protein Total Protein Albumin Vancomycin Trough 04/26/21 04/26/21 04/26/21 06:53 07:58 09:09 WBC RBC Hgb Hct MCV MCH Plt Count Seg Neuts % (Manual) Lymphocytes % (Manual) Nucleated RBC % Lymphocytes # (Manual) ABG pO2 ABG HCO3 ABG Base Excess ABG Hemoglobin VBG pH Oxyhemoglobin Sodium Potassium Chloride Carbon Dioxide BUN Creatinine Glucose POC Glucose 121 H 124 H 125 H Hemoglobin A1c Lactic Acid Calcium Phosphorus Magnesium Alkaline Phosphatase C-Reactive Protein Total Protein Albumin Vancomycin Trough 04/26/21 04/26/21 04/26/21 10:05 10:52 12:00 WBC RBC Hgb Hct MCV MCH Plt Count Seg Neuts % (Manual) Lymphocytes % (Manual) Nucleated RBC % Lymphocytes # (Manual) ABG pO2 ABG HCO3 ABG Base Excess ABG Hemoglobin VBG pH Oxyhemoglobin Sodium Potassium Chloride Carbon Dioxide BUN Creatinine Glucose POC Glucose 131 H 129 H 126 H Hemoglobin A1c Lactic Acid Calcium Phosphorus Magnesium Alkaline Phosphatase C-Reactive Protein Total Protein Albumin Vancomycin Trough 04/26/21 04/26/21 04/26/21 13:17 14:06 14:11 WBC RBC Hgb Hct MCV MCH Plt Count Seg Neuts % (Manual) Lymphocytes % (Manual) Nucleated RBC % Lymphocytes # (Manual) ABG pO2 ABG HCO3 ABG Base Excess ABG Hemoglobin VBG pH Oxyhemoglobin Sodium Potassium 5.3 H D Chloride 112.2 H Carbon Dioxide 14 L BUN 22 H Creatinine Glucose 116 H POC Glucose 130 H 132 H Hemoglobin A1c Lactic Acid Calcium Phosphorus Magnesium 2.40 H Alkaline Phosphatase C-Reactive Protein Total Protein Albumin Vancomycin Trough 04/26/21 04/26/21 04/26/21 15:07 15:20 16:05 WBC RBC Hgb Hct MCV MCH Plt Count Seg Neuts % (Manual) Lymphocytes % (Manual) Nucleated RBC % Lymphocytes # (Manual) ABG pO2 ABG HCO3 ABG Base Excess ABG Hemoglobin VBG pH Oxyhemoglobin Sodium Potassium Chloride 112.4 H Carbon Dioxide 13 L BUN 22 H Creatinine Glucose 143 H POC Glucose 130 H 156 H Hemoglobin A1c Lactic Acid Calcium Phosphorus Magnesium Alkaline Phosphatase C-Reactive Protein Total Protein Albumin Vancomycin Trough 04/26/21 04/26/21 04/27/21 17:55 19:27 00:02 WBC RBC Hgb Hct MCV MCH Plt Count Seg Neuts % (Manual) Lymphocytes % (Manual) Nucleated RBC % Lymphocytes # (Manual) ABG pO2 ABG HCO3 ABG Base Excess ABG Hemoglobin VBG pH Oxyhemoglobin Sodium Potassium Chloride Carbon Dioxide BUN Creatinine Glucose POC Glucose 194 H 261 H Hemoglobin A1c Lactic Acid Calcium Phosphorus Magnesium Alkaline Phosphatase C-Reactive Protein Total Protein Albumin Vancomycin Trough 38.2 H 04/27/21 04/27/21 04/27/21 04:03 04:03 05:33 WBC RBC 3.20 L Hgb 8.1 L Hct 25.1 L MCV 78 L MCH 25 L Plt Count Seg Neuts % (Manual) Lymphocytes % (Manual) Nucleated RBC % Lymphocytes # (Manual) ABG pO2 ABG HCO3 ABG Base Excess ABG Hemoglobin VBG pH Oxyhemoglobin Sodium Potassium Chloride 112.4 H Carbon Dioxide 12 L BUN 30 H Creatinine Glucose 330 H POC Glucose 311 H Hemoglobin A1c Lactic Acid Calcium Phosphorus Magnesium Alkaline Phosphatase C-Reactive Protein Total Protein Albumin Vancomycin Trough 04/27/21 04/27/21 04/27/21 09:51 13:15 16:43 WBC RBC Hgb Hct MCV MCH Plt Count Seg Neuts % (Manual) Lymphocytes % (Manual) Nucleated RBC % Lymphocytes # (Manual) ABG pO2 ABG HCO3 ABG Base Excess ABG Hemoglobin VBG pH Oxyhemoglobin Sodium Potassium Chloride Carbon Dioxide BUN Creatinine Glucose POC Glucose 335 H 291 H 218 H Hemoglobin A1c Lactic Acid Calcium Phosphorus Magnesium Alkaline Phosphatase C-Reactive Protein Total Protein Albumin Vancomycin Trough 04/27/21 04/27/21 04/28/21 18:10 22:08 02:15 WBC RBC Hgb Hct MCV MCH Plt Count Seg Neuts % (Manual) Lymphocytes % (Manual) Nucleated RBC % Lymphocytes # (Manual) ABG pO2 ABG HCO3 ABG Base Excess ABG Hemoglobin VBG pH Oxyhemoglobin Sodium Potassium Chloride Carbon Dioxide BUN Creatinine Glucose POC Glucose 177 H 136 H 152 H Hemoglobin A1c Lactic Acid Calcium Phosphorus Magnesium Alkaline Phosphatase C-Reactive Protein Total Protein Albumin Vancomycin Trough 04/28/21 04/28/21 04/28/21 04:41 04:41 06:03 WBC RBC 3.50 L Hgb 8.9 L Hct 27.3 L MCV 78 L MCH 26 L Plt Count Seg Neuts % (Manual) Lymphocytes % (Manual) Nucleated RBC % Lymphocytes # (Manual) ABG pO2 ABG HCO3 ABG Base Excess ABG Hemoglobin VBG pH Oxyhemoglobin Sodium Potassium Chloride 113.5 H Carbon Dioxide 16 L BUN 37 H Creatinine Glucose 167 H POC Glucose 174 H Hemoglobin A1c Lactic Acid Calcium Phosphorus Magnesium Alkaline Phosphatase C-Reactive Protein Total Protein Albumin Vancomycin Trough 04/28/21 04/28/21 04/28/21 08:42 11:34 17:15 WBC RBC Hgb Hct MCV MCH Plt Count Seg Neuts % (Manual) Lymphocytes % (Manual) Nucleated RBC % Lymphocytes # (Manual) ABG pO2 ABG HCO3 ABG Base Excess ABG Hemoglobin VBG pH Oxyhemoglobin Sodium Potassium Chloride Carbon Dioxide BUN Creatinine Glucose POC Glucose 212 H 228 H 236 H Hemoglobin A1c Lactic Acid Calcium Phosphorus Magnesium Alkaline Phosphatase C-Reactive Protein Total Protein Albumin Vancomycin Trough 04/28/21 04/29/21 04/29/21 21:58 01:55 04:00 WBC 11.7 H RBC 3.35 L Hgb 8.5 L Hct 26.4 L MCV MCH 25 L Plt Count Seg Neuts % (Manual) Lymphocytes % (Manual) Nucleated RBC % Lymphocytes # (Manual) ABG pO2 ABG HCO3 ABG Base Excess ABG Hemoglobin VBG pH Oxyhemoglobin Sodium Potassium Chloride Carbon Dioxide BUN Creatinine Glucose POC Glucose 208 H 137 H Hemoglobin A1c Lactic Acid Calcium Phosphorus Magnesium Alkaline Phosphatase C-Reactive Protein Total Protein Albumin Vancomycin Trough 04/29/21 04/29/21 04/29/21 04:00 05:16 11:02 WBC RBC Hgb Hct MCV MCH Plt Count Seg Neuts % (Manual) Lymphocytes % (Manual) Nucleated RBC % Lymphocytes # (Manual) ABG pO2 ABG HCO3 ABG Base Excess ABG Hemoglobin VBG pH Oxyhemoglobin Sodium 146 H Potassium Chloride 112.4 H Carbon Dioxide BUN 41 H Creatinine Glucose 115 H POC Glucose 114 H 144 H Hemoglobin A1c Lactic Acid Calcium Phosphorus Magnesium Alkaline Phosphatase C-Reactive Protein Total Protein Albumin Vancomycin Trough 04/30/21 04/30/21 04/30/21 00:23 04:41 04:41 WBC 14.4 H RBC 3.12 L Hgb 7.8 L Hct 24.7 L MCV MCH 25 L Plt Count 138 L Seg Neuts % (Manual) Lymphocytes % (Manual) Nucleated RBC % Lymphocytes # (Manual) ABG pO2 ABG HCO3 ABG Base Excess ABG Hemoglobin VBG pH Oxyhemoglobin Sodium Potassium Chloride 108.0 H Carbon Dioxide BUN 42 H Creatinine Glucose 215 H POC Glucose 126 H Hemoglobin A1c Lactic Acid Calcium Phosphorus Magnesium Alkaline Phosphatase 171 H C-Reactive Protein Total Protein 6.1 L Albumin 1.4 L Vancomycin Trough 04/30/21 04/30/21 04/30/21 05:22 11:55 17:36 WBC RBC Hgb Hct MCV MCH Plt Count Seg Neuts % (Manual) Lymphocytes % (Manual) Nucleated RBC % Lymphocytes # (Manual) ABG pO2 ABG HCO3 ABG Base Excess ABG Hemoglobin VBG pH Oxyhemoglobin Sodium Potassium Chloride Carbon Dioxide BUN Creatinine Glucose POC Glucose 196 H 224 H 196 H Hemoglobin A1c Lactic Acid Calcium Phosphorus Magnesium Alkaline Phosphatase C-Reactive Protein Total Protein Albumin Vancomycin Trough 05/01/21 05/01/21 05/01/21 04:01 05:37 05:37 WBC 16.9 H RBC 2.97 L Hgb 7.4 L Hct 23.1 L MCV 78 L MCH 25 L Plt Count Seg Neuts % (Manual) Lymphocytes % (Manual) Nucleated RBC % Lymphocytes # (Manual) ABG pO2 ABG HCO3 ABG Base Excess ABG Hemoglobin VBG pH Oxyhemoglobin Sodium Potassium Chloride 108.4 H Carbon Dioxide BUN 41 H Creatinine Glucose 124 H POC Glucose 122 H Hemoglobin A1c Lactic Acid Calcium 8.0 L Phosphorus Magnesium Alkaline Phosphatase C-Reactive Protein Total Protein Albumin Vancomycin Trough 05/01/21 05/01/21 05/01/21 06:27 13:45 16:40 WBC RBC Hgb Hct MCV MCH Plt Count Seg Neuts % (Manual) Lymphocytes % (Manual) Nucleated RBC % Lymphocytes # (Manual) ABG pO2 ABG HCO3 ABG Base Excess ABG Hemoglobin VBG pH Oxyhemoglobin Sodium Potassium Chloride Carbon Dioxide BUN Creatinine Glucose POC Glucose 126 H 231 H 266 H Hemoglobin A1c Lactic Acid Calcium Phosphorus Magnesium Alkaline Phosphatase C-Reactive Protein Total Protein Albumin Vancomycin Trough Chest x-ray: report reviewed, image reviewed Additional Studies: XR chest 1V ap 04/29/21 INDICATION / CLINICAL INFORMATION: F/U Delfino. PNA. COMPARISON: 04/26/2021 FINDINGS: SUPPORT DEVICES: Enteric catheter tip and side port projects in the stomach. HEART /PULMONARY VASCULATURE: Unchanged. LUNGS / PLEURA: Low lung volumes with bibasilar opacities/atelectasis persists, unchanged. No pneumothorax. IMPRESSION: 1. No significant interval change. Allied health notes reviewed: nursing
[2021-05-01] MEDS: ACETAMINOPHEN 325 MG TAB PO PRN (22:30)
[2021-05-01] MEDS: SENNOSIDES 8.6 MG TAB PO SCH (22:31)
[2021-05-02] MEDS: INSULIN LISPRO 100 UNIT/ML SUB-Q SCH ×4 (00:30→17:42)
[2021-05-02] MEDS: FREE WATER PO SCH ×6 (00:34→21:24)
--- NOTE | 2021-05-02 08:55 | Progress Note ---
Assessment and Plan Assessment and plan: This is a 51-year-old female with DM, noncompliance, obesity, arthritis and right knee surgery admitted for DKA Continue tube feeding, failed swallow evaluation, high risk for aspiration -- Sepsis, group B Streptococcus bacteremia, h/o right septic arthritis -Infectious disease consulted, appreciate recommendations -ABX therapy per ID: Ceftriaxone 2 g every 24 hours -Right knee x-ray shows large joint effusion s/p arthrocentesis Positive synovial fluid cultures, ID recommended total 6 weeks of Rocephin --Acute metabolic encephalopathy (improved significantly) Patient is more alert and awake, supportive care -Echocardiogram shows mildly dilated right heart chamber, mild to moderate TR, moderate pulmonary hypertension, RVSP 50-55, LVEF 45-50 --Respiratory: Acute hypoxic respiratory failure Nasal cannula oxygen, intermittent BiPAP Home O2 evaluation --Oropharyngeal dysphagia; On tube feeding Speech therapy following We will start oral nutrition and speech therapist clears --Severe protein calorie malnutrition --Hypoalbuminemia, albumin 1.7 Dietitian/dentist attendant following Continue tube feeding, nutrition supplements Supportive care -- Hypernatremia (resolved) Closely monitor electrolytes --Leukocytosis/trending down Secondary to sepsis, continue antibiotics and supportive care Closely monitor --S/p DKA, h/o uncontrolled DM/present on admission -Hemoglobin A1c 18.3 Blood sugars moderate control -Avoid hypoglycemia Accu-Chek sliding scale coverage tube feeding Glucerna --DVT prophylaxis Subcu Lovenox --Full CODE STATUS Will closely monitor the patient and adjust the management as needed Plan of care reviewed with the patient and her nurse Medical Collections Specialist recommendations noted and appreciated History Interval history: This is a 51-year-old female with DM, OA, medication noncompliance, obesity who presented to emergency department on 04/23 with complaints of weakness, elevated blood glucose levels, nausea, polydipsia, polyuria and diminished oral intake over the past week with worsening symptoms over the past 2 days. Patient acknowledges noncompliance with oral antihyperglycemic therapy. Patient was seen and evaluated in the emergency department and found to have lab work consistent with diabetic ketoacidosis, metabolic encephalopathy, metabolic acidosis and volume depletion. Patient was admitted to the hospital service to the ICU initiated DKA protocol with CCM consult. 04/24/21- Patient remains on DKA protocol. Still very lethargic this am, following simple commands. Rt. knee wound and swelling noted, and nursing staff also reported thick, white vaginal discharge. C/f sepsis, blood culture ordered, this am UA noted. Will start patient on PO difflucan for possible yeast infection, pending culture data. Anion GAP is still 18 this am, will continue DKA protocol for now. Continue to monitor electrolytes, serial BMP ordered. 04/25/21- Patient appears to be in distress this am, now on 3L NC. Lactic acidosis worsen overnight, X1L LR bolus adminstered. Ordered placed for stat ABGs. Blood culture growing GPC 3/4 bottles, patient remains afebrile with no le ukocytosis. IV abx was escalated, ID consulted. Ortho consult is still pending, order placed for XR of the Rt. knee. Given patient worsen condition and high anio, gap, will continue insulin gtt for now. Low K and mg was repleted. Continue serial BMP,mg, and phosp 04/26/21- Patient appears more alert and awake this am, talkative, and following commands. Remains on DKA protocol, gap is closedX2, will transition patient to SSI and basal insulin and initiate enteral nutrition. Patient remains afebrile overnight, continue IV Abx per ID. 04/27/21- TASHA overnight. Patient mentation continue to improve. Worsening hyperglycemia, patient is tolerating TF. 70/30 added BID and SSI was adjusted to high dose Q4hrs. D/W CCM patient is stable for transfer to [facility] 04/28/21- Patient continue to improve. Remains drowsy this am, however, easily arousable. Now on 4L NC, still requiring Q4hrs NT suction due to increased secretions and weak cough. Continue to wean O2 supplement as tolerated, F/U CXR in the am. Continue IV Abx per ID. 04/29: Patient is awake and alert with strong cough and able to clear own airway. Ortho consult for right knee aspiration pending. 04/30: No acute events reported overnight, patient will be transferred to the floor. MR of right knee ordered. 05/01; patient had arthrocentesis 05/02; ID recommended total 6 weeks of Rocephin, case management to assist with antibiotics History Interval history: I have seen and examined the patient at the bedside Patient's chart and medications reviewed No new events reported by the nursing Vital signs noted Hospitalist Physical - Constitutional Vitals: Temp Pulse Resp BP Pulse Ox 99.7 F H 109 H 18 142/74 98 05/01/21 21:22 05/02/21 06:10 05/02/21 06:10 05/01/21 21:22 05/02/21 06:10 General appearance: Present: no acute distress, obese, other - EENT Eyes: Present: PERRL, EOM intact - Neck Neck: Present: supple, normal ROM - Respiratory Respiratory effort: normal Respiratory: bilateral: diminished, negative: rales, rhonchi, wheezing - Cardiovascular Rhythm: regular Heart Sounds: Present: S1 & S2 - Extremities Extremities: no ischemia, No edema - Abdominal General gastrointestinal: soft, non-tender, non-distended, normal bowel sounds - Integumentary Integumentary: Present: clear, warm - Psychiatric Psychiatric: appropriate mood/affect, cooperative - Neurologic Neurologic: moves all extremities HEART Score - HEART Score Troponin: Troponin T < 0.010 ng/mL (0.00-0.029) 04/23/21 10:33 Results - Labs CBC & Chem 7: 05/01/21 05:37 05/01/21 05:37 Labs: Laboratory Last Values WBC 16.9 K/mm3 (4.5-11.0) H 05/01/21 05:37 RBC 2.97 M/mm3 (3.65-5.03) L 05/01/21 05:37 Hgb 7.4 gm/dl (10.1-14.3) L 05/01/21 05:37 Hct 23.1 % (30.3-42.9) L 05/01/21 05:37 MCV 78 fl (79-97) L 05/01/21 05:37 MCH 25 pg (28-32) L 05/01/21 05:37 MCHC 32 % (30-34) 05/01/21 05:37 RDW 14.9 % (13.2-15.2) 05/01/21 05:37 Plt Count 160 K/mm3 (140-440) 05/01/21 05:37 Add Manual Diff Complete 04/25/21 08:10 Total Counted 100 04/25/21 08:10 Seg Neutrophils % Furnace Roaster 04/23/21 10:33 Seg Neuts % (Manual) 33.0 % (40.0-70.0) L 04/25/21 08:10 Band Neutrophils % 23.0 % 04/25/21 08:10 Lymphocytes % (Manual) 19.0 % (13.4-35.0) 04/25/21 08:10 Reactive Lymphs % (Man) 1.0 % 04/25/21 08:10 Monocytes % (Manual) 1.0 % (0.0-7.3) 04/25/21 08:10 Eosinophils % (Manual) 1.0 % (0.0-4.3) 04/25/21 08:10 Metamyelocytes % 3.0 % 04/23/21 10:33 Myelocytes % 22.0 % 04/25/21 08:10 Nucleated RBC % Not Reportable 04/25/21 08:10 Seg Neutrophils # Man 1.9 K/mm3 (1.8-7.7) 04/25/21 08:10 Band Neutrophils # 1.3 K/mm3 04/25/21 08:10 Lymphocytes # (Manual) 1.1 K/mm3 (1.2-5.4) L 04/25/21 08:10 Abs React Lymphs (Man) 0.1 K/mm3 04/25/21 08:10 Monocytes # (Manual) 0.1 K/mm3 (0.0-0.8) 04/25/21 08:10 Eosinophils # (Manual) 0.1 K/mm3 (0.0-0.4) 04/25/21 08:10 Basophils # (Manual) 0.0 K/mm3 (0.0-0.1) 04/25/21 08:10 Metamyelocytes # 0.0 K/mm3 04/25/21 08:10 Myelocytes # 1.3 K/mm3 04/25/21 08:10 Promyelocytes # 0.0 K/mm3 04/25/21 08:10 Blast Cells # 0.0 K/mm3 04/25/21 08:10 WBC Morphology Not Reportable 04/25/21 08:10 Hypersegmented Neuts Not Reportable 04/25/21 08:10 Hyposegmented Neuts Not Reportable 04/25/21 08:10 Hypogranular Neuts Not Reportable 04/25/21 08:10 Smudge Cells Not Reportable 04/25/21 08:10 Toxic Granulation Not Reportable 04/25/21 08:10 Toxic Vacuolation Not Reportable 04/25/21 08:10 Dohle Bodies Not Reportable 04/25/21 08:10 Pelger-Huet Anomaly Not Reportable 04/25/21 08:10 Thierry Rods Not Reportable 04/25/21 08:10 Platelet Estimate Consistent w auto 04/25/21 08:10 Clumped Platelets Not Reportable 04/25/21 08:10 Plt Clumps, EDTA Not Reportable 04/25/21 08:10 Large Platelets Not Reportable 04/25/21 08:10 Giant Platelets Not Reportable 04/25/21 08:10 Platelet Satelliting Not Reportable 04/25/21 08:10 Plt Morphology Comment Not Reportable 04/25/21 08:10 RBC Morphology Not Reportable 04/25/21 08:10 Dimorphic RBCs Not Reportable 04/25/21 08:10 Polychromasia Not Reportable 04/25/21 08:10 Hypochromasia 1+ 04/25/21 08:10 Poikilocytosis Not Reportable 04/25/21 08:10 Anisocytosis Not Reportable 04/25/21 08:10 Microcytosis Not Reportable 04/25/21 08:10 Macrocytosis Not Reportable 04/25/21 08:10 Spherocytes Not Reportable 04/25/21 08:10 Pappenheimer Bodies Not Reportable 04/25/21 08:10 Sickle Cells Not Reportable 04/25/21 08:10 Target Cells Not Reportable 04/25/21 08:10 Tear Drop Cells Not Reportable 04/25/21 08:10 Ovalocytes Not Reportable 04/25/21 08:10 Helmet Cells Not Reportable 04/25/21 08:10 [place] Bodies Not Reportable 04/25/21 08:[address] Rings Not Reportable 04/25/21 08:10 [place] Cells Not Reportable 04/25/21 08:10 Bite Cells Not Reportable 04/25/21 08:10 Crenated Cell Not Reportable 04/25/21 08:10 Elliptocytes Not Reportable 04/25/21 08:10 Acanthocytes (Spur) Not Reportable 04/25/21 08:10 Rouleaux Not Reportable 04/25/21 08:10 Hemoglobin C Crystals Not Reportable 04/25/21 08:10 Schistocytes Not Reportable 04/25/21 08:10 Malaria parasites Not Reportable 04/25/21 08:10 Juan Bodies Not Reportable 04/25/21 08:10 Hem Pathologist Commnt No 04/25/21 08:10 ABG pH 7.426 pH Units (7.350-7.450) 04/25/21 11:20 ABG pCO2 25.3 mm Hg 04/25/21 11:20 ABG pO2 73.2 mm Hg (80.0-90.0) L 04/25/21 11:20 ABG HCO3 16.2 mmol/L (20.0-26.0) L 04/25/21 11:20 ABG O2 Saturation 96.9 % (95.0-99.0) 04/25/21 11:20 ABG O2 Content 11.6 (0.0-44) 04/25/21 11:20 ABG Base Excess -7.1 mmol/L (-2.0-3.0) L 04/25/21 11:20 ABG Hemoglobin 8.7 gm/dl (12.0-16.0) L 04/25/21 11:20 ABG Carboxyhemoglobin 1.6 % (0.0-5.0) 04/25/21 11:20 ABG Methemoglobin 0.6 % (0.0-1.5) 04/25/21 11:20 VBG pH 7.180 (7.320-7.420) L* 04/23/21 10:33 Oxyhemoglobin 94.8 % (95.0-99.0) L 04/25/21 11:20 FiO2 28 % 04/25/21 11:20 Sodium 144 mmol/L (137-145) 05/01/21 05:37 Potassium 4.5 mmol/L (3.6-5.0) 05/01/21 05:37 Chloride 108.4 mmol/L (98-107) H 05/01/21 05:37 Carbon Dioxide 28 mmol/L (22-30) 05/01/21 05:37 Anion Gap 12 mmol/L 05/01/21 05:37 BUN 41 mg/dL (7-17) H 05/01/21 05:37 Creatinine 1.0 mg/dL (0.6-1.2) 05/01/21 05:37 Estimated GFR > 60 ml/min 05/01/21 05:37 BUN/Creatinine Ratio 41 % 05/01/21 05:37 Glucose 124 mg/dL (65-100) H 05/01/21 05:37 POC Glucose 236 mg/dL (70-105) H 05/02/21 05:43 Hemoglobin A1c 18.3 % (4-6) H 04/24/21 04:16 Lactic Acid 1.70 mmol/L (0.7-2.0) 04/26/21 05:02 Uric Acid 7.5 mg/dL (3.5-7.6) 04/24/21 12:14 Calcium 8.0 mg/dL (8.4-10.2) L 05/01/21 05:37 Phosphorus 4.50 mg/dL (2.5-4.5) 04/30/21 04:41 Magnesium 2.20 mg/dL (1.7-2.3) 04/30/21 04:41 Total Bilirubin 0.50 mg/dL (0.1-1.2) 04/30/21 04:41 AST 12 units/L (5-40) 04/30/21 04:41 ALT 7 units/L (7-56) 04/30/21 04:41 Alkaline Phosphatase 171 units/L (35-129) H 04/30/21 04:41 Ammonia 37.0 umol/L (25-60) 04/23/21 10:33 Total Creatine Kinase 83 units/L (30-135) 04/23/21 10:33 Troponin T < 0.010 ng/mL (0.00-0.029) 04/23/21 10:33 C-Reactive Protein 24.30 mg/dL (0.00-1.30) H 04/24/21 18:24 Total Protein 6.1 g/dL (6.3-8.2) L 04/30/21 04:41 Albumin 1.4 g/dL (3.9-5) L 04/30/21 04:41 Albumin/Globulin Ratio 0.3 % 04/30/21 04:41 Procalcitonin 21.10 ng/mL (<0.15) 04/24/21 12:14 TSH 1.400 mlU/mL (0.270-4.200) 04/23/21 10:33 Urine Color Katie (Yellow) 04/27/21 16:16 Urine Turbidity Cloudy (Clear) 04/27/21 16:16 Urine pH 5.0 (5.0-7.0) 04/27/21 16:16 Ur Specific [place] 1.014 (1.003-1.030) 04/27/21 16:16 Urine Protein <15 mg/dl mg/dL (Negative) 04/27/21 16:16 Urine Glucose (UA) >=500 mg/dL (Negative) 04/27/21 16:16 Urine Ketones Neg mg/dL (Negative) 04/27/21 16:16 Urine Blood Neg (Negative) 04/27/21 16:16 Urine Nitrite Neg (Negative) 04/27/21 16:16 Urine Bilirubin Neg (Negative) 04/27/21 16:16 Urine Urobilinogen 2.0 mg/dL (<2.0) 04/27/21 16:16 Ur Leukocyte Esterase Neg (Negative) 04/27/21 16:16 Urine WBC (Auto) 1.0 /HPF (0.0-6.0) 04/27/21 16:16 Urine RBC (Auto) 1.0 /HPF (0.0-6.0) 04/27/21 16:16 U Epithel Cells (Auto) < 1.0 /HPF (0-13.0) 04/24/21 08:40 Urine Bacteria (Auto) 1+ /HPF (Negative) 04/27/21 16:16 Amorphous Crystals Few 04/27/21 16:16 Urine Yeast (Budding) 3+ /HPF 04/27/21 16:16 Vancomycin Trough 38.2 ug/mL (5.0-20.0) H 04/26/21 19:27 Coronavirus (PCR) Negative (Negative) 04/25/21 Unknown Microbiology: Microbiology 04/30/21 16:47 Knee - Right Wound Culture - Final Beta Hemolytic Strep Group B 04/26/21 09:04 Peripheral/Venous Blood Culture - Final NO GROWTH AFTER 5 DAYS 04/26/21 05:02 Peripheral/Venous Blood Culture - Final NO GROWTH AFTER 5 DAYS Sanchez/IV: Voiding Method Indwelling Catheter Active Medications - Current Medications Current Medications: Generic Name Dose Route Start Last Admin Trade Name Freq PRN Reason Stop Dose Admin Acetaminophen 650 mg 04/23/21 11:54 05/01/21 22:30 Acetaminophen 325 Mg Tab PO 650 mg Q6H PRN Administration Pain MILD(1-3)/Fever >100.5/SMITH Albuterol 2.5 mg 04/29/21 20:00 05/01/21 19:43 Albuterol 2.5 Mg/3 Ml Nebu IH 2.5 mg TIDRT AMIRA Administration Lipase/Protease/Amylase 1 each 04/29/21 15:42 Lipase 10,500/Protease 25,000/Amylase 43,750 (Units) Dr Rodriguez FEEDTUBE PRN PRN For Clogged Feeding Tube Dextrose 50 ml 04/26/21 14:00 Dextrose 50% In Water (25gm) 50 Ml Syringe IV Q30MIN PRN Hypoglycemia Protocol Enoxaparin Sodium 40 mg 04/24/21 22:00 05/01/21 22:30 Enoxaparin 40 Mg/0.4 Ml Inj SUB-Q 40 mg BID AMIRA Administration Protocol Famotidine 20 mg 04/29/21 10:00 05/01/21 10:49 Famotidine 20 Mg Tab FEEDTUBE 20 mg DAILY AMIRA Administration Hydromorphone HCl 0.5 mg 04/23/21 11:54 05/01/21 04:16 Hydromorphone 1 Mg/1 Ml Inj IV 0.5 mg Q23H PRN Administration Pain , Severe (7-10) Ceftriaxone Sodium 2 gm in 100 mls @ 200 mls/hr 04/25/21 14:00 05/01/21 14:01 Rocephin/Ns 2 Gm/100 Ml IV 05/10/21 14:29 200 mls/hr Q24H AMIRA Administration Protocol Insulin Human Isoph/Insulin Regular 48 unit 05/02/21 08:51 Insulin Nph/Regular 70/30 Inj SUB-Q BIDDIAB AMIRA Insulin Human Lispro 0 unit 04/29/21 12:00 05/02/21 05:47 Insulin Lispro 100 Unit/Ml SUB-Q 4 unit Q6HR AMIRA Administration Protocol Oxycodone/Acetaminophen 1 tab 04/23/21 11:54 05/01/21 17:38 Oxycodone /Acetaminophen 5-325mg Tab PO 1 tab Q16H PRN Administration Pain, Moderate (4-6) Senna 17.2 mg 04/25/21 22:00 05/01/21 22:31 Sennosides 8.6 Mg Tab PO 17.2 mg QHS AMIRA Administration Simple Syrup 15 ml 04/29/21 15:42 Simple Syrup 15 Ml FEEDTUBE PRN PRN Hypoglycemia Simple Syrup 30 ml 04/29/21 15:42 Simple Syrup 15 Ml FEEDTUBE PRN PRN Hypoglycemia Sodium Bicarbonate 325 mg 04/29/21 15:42 Sodium Bicarbonate 325 Mg Tab FEEDTUBE PRN PRN For Clogged Feeding Tube Sodium Chloride 10 ml 04/23/21 22:00 05/01/21 23:03 Sodium Chloride 0.9% 10 Ml Flush Syringe IV 10 ml BID AMIRA Administration Sodium Chloride 10 ml 04/23/21 11:54 04/24/21 11:15 Sodium Chloride 0.9% 10 Ml Flush Syringe IV 10 ml PRN PRN Administration LINE FLUSH Nutrition/Malnutrition Assess - Dietary Evaluation Nutrition/Malnutrition Findings: Nutrition Notes Start: 04/26/21 09:53 Freq: Status: Active Protocol: Document 04/29/21 15:44 HOANG (Rec: 04/29/21 15:50 HOANG [id number]) Nutrition Notes Initial or Follow up Reassessment Current Diagnosis Diabetes Other Pertinent Diagnosis DKA, OA Current Diet TF - Glucerna 1.2 at 83ml/hr Labs/Tests Na 146 BUN 41 POC Glu range since last assessment: 115-335 Pertinent Medications Reviewed Height 5 ft 8 in Weight 158.6 kg [place] Body Weight (kg) 63.63 BMI 53.1 Weight Status Morbidly Obese Subjective/Other Information Per RN, pt tolerating TF at goal rate. Percent of energy/protein needs met: 126% energy needs #1 Nutrition Diagnosis Inadequate oral intake Diagnosis Progress(for reassessment Continues documentation) Is patient on ventilator? No Is Patient Ambulatory and/or Out of Bed No REE-([facility]-confined to bed) [phone] Calculation Used for Recommendations 65-70% energy needs Additional Notes Estimated energy needs: 1760- 1896 kcal/day Pro needs up to 2.5g/kg IBW: up to 159g/day Fluid needs 1ml/kcal Nutrition Intervention Nutrition Support: Decrease TF goal rate to 65ml/ hr with 100ml water flush q4h. Kcal 1,872 Protein (gm) 94 Carbohydrates (gm) 179 Fat (gm) 94 Fluid (mL) 1,256 Fiber (gm) 25 Goal #1 TF tolerance Goal #2 TF to meet 65-70% energy and at least 75% pro needs Follow-Up By: 05/03/21 Additional Comments F/U: TF rate decrease, labs
[2021-05-02] MEDS: FAMOTIDINE 20 MG TAB FEEDTUBE SCH (10:05)
[2021-05-02] MEDS: ENOXAPARIN 40 MG/0.4 ML INJ SUB-Q SCH ×2 (10:05→21:24)
[2021-05-02] MEDS: INSULIN NPH/REGULAR 70/30 INJ SUB-Q SCH ×2 (11:28→17:43)
--- NOTE | 2021-05-02 12:31 | Progress Note ---
Assessment and Plan Cultures: 04/24/2021 Blood culture: GBS Blood culture 04/26/2021: No growth 04/30/2021 R knee synovial fluid culture: Group B Streptococcus A/P: 51 yo F with DM2, HTN, morbid obesity presented with sepsis #Acute sepsis: secondary to group B streptococcus bacteremia, source is R knee. #Group B streptococcus bacteremia: Reports a history of previous right knee septic arthritis and has been treated with antibiotics at least twice in the past. X-ray shows large joint effusion. TTE without any evidence of valvular vegetations/endocarditis. Arthrocentesis culture also positive. #DM2: tight glycemic control for best outcomes. #Right knee wound/?septic arthritis Recs: -R knee synovial fluid culture positive for Group B Streptococcus, will need I&D/washout by orthopedics -Ceftriaxone switched to high dose Ancef due to her morbid obesity -will need a longer ~6 weeks course of IV abx after surgery due to her history of recurrence / chronicity and possibility of osteomyelitis Holly Leroy MD, FACP, [facility] O: [phone] F: [phone] Subjective Date of service: 05/02/21 Principal diagnosis: HAGMA; DKA; AMS; Obesity; Osteoarthritis; Hypercalcemia Interval history: Febrile. Has no complaints. Objective - Exam Narrative Exam: Physical Exam: Constitutional: Alert, cooperative. No acute distress Head, Ears, Nose: Normocephalic, atraumatic. External ears, nose normal Eyes: Conjunctivae/corneas clear. No icterus. No ptosis. Neck: Supple, no meningeal signs Cardiovascular: S1, S2 + Respiratory: Good air entry, clear to auscultation bilaterally GI: Soft, non-tender; bowel sounds normal. No peritoneal signs Musculoskeletal: Right knee with mild swelling and tenderness, superficial wound present Skin: No rash or abscess Hem/Lymphatic: No palpable cervical or supraclavicular nodes. No lymphangitis Psych: Mood ok. Affect normal Neurological: Awake, alert, oriented. No gross abnormality - Constitutional Vitals: Vital Signs Temp Pulse Resp BP Pulse Ox 99.7 F H 109 H 18 142/74 98 05/01/21 21:22 05/02/21 06:10 05/02/21 06:10 05/01/21 21:22 05/02/21 06:10 Temperature -Last 24 Hours Temperature 99.7 F Temperature 101.2 F - Labs CBC & Chem 7: 05/01/21 05:37 05/01/21 05:37 Labs: Abnormal lab results 05/01/21 05/01/21 05/01/21 Range/Units 13:45 16:40 23:16 POC Glucose 231 H 266 H 192 H (70-105) mg/dL 05/02/21 05/02/21 Range/Units 05:43 11:27 POC Glucose 236 H 284 H (70-105) mg/dL
[2021-05-02] MEDS: ALBUTEROL 2.5 MG/3 ML NEBU IH SCH (12:49)
--- NOTE | 2021-05-02 15:23 | Progress Note ---
Assessment and Plan will require I&D 2moro Subjective Date of service: 05/02/21 Principal diagnosis: HAGMA; DKA; AMS; Obesity; Osteoarthritis; Hypercalcemia Objective Vital signs: Vital Signs - 12hr 05/02/21 05/02/21 05/02/21 05:42 06:10 08:00 Temperature 99.1 F Pulse Rate 110 H 109 H Pulse Rate [ 84 From Monitor] Respiratory 18 18 24 Rate Blood Pressure 140/69 O2 Sat by Pulse 95 98 95 Oximetry 05/02/21 05/02/21 12:06 12:51 Temperature 98.1 F Pulse Rate 116 H Pulse Rate [ From Monitor] Respiratory 41 H Rate Blood Pressure 141/65 O2 Sat by Pulse 93 99 Oximetry Narrative Exam: wound culture + beta strep, rare organisms seen... - Labs CBC & BMP: 05/01/21 05:37 05/01/21 05:37 Labs: Abnormal lab results 05/01/21 05/01/21 05/02/21 Range/Units 16:40 23:16 05:43 POC Glucose 266 H 192 H 236 H (70-105) mg/dL 05/02/21 Range/Units 11:27 POC Glucose 284 H (70-105) mg/dL
--- NOTE | 2021-05-02 16:52 | Progress Note ---
Assessment and Plan Acute metabolic acidosis Diabetic ketoacidosis Acute toxic metabolic encephalopathy-improving Obesity Osteoarthritis Hypercalcemia Continue with airway clearance , chest PT Continue with NGT feeding Needs assisted antibiotics per ID Titrate supplemental oxygen to keep SpO2 88-90% PT, increase activity as tolerated Mobility, off loading and frequent turning for pressure ulcer prevention Continue all supportive care Discharge planning - continue accuchecks with glycemic control - target blood glucose 140-180 mg/dL; avoid hypoglycemia - antiinfectives per ID team recommendations (Rocephin) - prn bronchodilators with pulmonary hygiene per RT - avoid nephrotoxins, renally dose all medications - avoid benzodiazepines, reduce the possibility of delirium - prn analgesia per pain score - Maintenance of sleep-wake cycle, avoid delirium - VTE prophylaxis - continue mobility protocols for pressure ulcer prophylaxis - Monitor hemodynamics closely - continue other care per attending / other consultants Subjective Date of service: 05/02/21 Principal diagnosis: HAGMA; DKA; AMS; Obesity; Osteoarthritis; Hypercalcemia Interval history: Patient is seen today for: Acute metabolic acidosis; Diabetic ketoacidosis; Acute toxic metabolic encephalopathy; Obesity; Osteoarthritis; Hypercalcemia Seen and examined at bedside; 24hour events reviewed; nursing and respiratory care staff consulted; no adverse overnight events reported to me; resting peacefully in bed; denies N/V/F/C. Awake and alert, strong cough . On supplemental oxygen via NC, NGT in nares for feeding, s/p arthrocentesis Objective Vital Signs - 12hr 05/02/21 05/02/21 05/02/21 05:42 06:10 08:00 Temperature 99.1 F Pulse Rate 110 H 109 H Pulse Rate [ 84 From Monitor] Respiratory 18 18 24 Rate Blood Pressure 140/69 O2 Sat by Pulse 95 98 95 Oximetry 05/02/21 05/02/21 12:06 12:51 Temperature 98.1 F Pulse Rate 116 H Pulse Rate [ From Monitor] Respiratory 41 H Rate Blood Pressure 141/65 O2 Sat by Pulse 93 99 Oximetry Constitutional: alert, agitated, appears uncomfortable, other (middle aged obese female with normal work of breathing at rest) Eyes: non-icteric ENT: oropharynx moist Neck: supple, no lymphadenopathy, no JVD Effort: normal Ascultation: Bilateral: clear, diminished breath sounds, rhonchi (and referred upper airway sounds) Percussion: Bilateral: not dull Cardiovascular: regular rate and rhythm, other (S1,S2) Gastrointestinal: hypoactive bowel sounds, soft, non-tender, non-distended Integumentary: rash (perineal) Extremities: no cyanosis, no edema, pulses normal, no ischemia or petechiae Neurologic: normal mental status, non-focal exam, pupils equal and round Psychiatric: mood appropriate, affect normal CBC and BMP: 05/03/21 07:05 05/03/21 07:05 ABG, PT/INR, D-dimer: ABG ABG pH 7.426 pH Units (7.350-7.450) 04/25/21 11:20 ABG pCO2 25.3 mm Hg 04/25/21 11:20 ABG pO2 73.2 mm Hg (80.0-90.0) L 04/25/21 11:20 ABG O2 Saturation 96.9 % (95.0-99.0) 04/25/21 11:20 Abnormal lab findings: Abnormal Labs 04/23/21 04/23/21 04/23/21 10:33 10:33 10:33 WBC RBC Hgb Hct MCV MCH 26 L Plt Count Seg Neuts % (Manual) Lymphocytes % (Manual) 7.0 L Nucleated RBC % 2.0 H Lymphocytes # (Manual) 0.5 L ABG pO2 ABG HCO3 ABG Base Excess ABG Hemoglobin VBG pH 7.180 L* Oxyhemoglobin Sodium 122 L Potassium 3.0 L Chloride 84.8 L Carbon Dioxide 6 L* BUN 49 H Creatinine 1.4 H Glucose 775 H* POC Glucose Hemoglobin A1c Lactic Acid Calcium 12.2 H* Phosphorus Magnesium Alkaline Phosphatase 130 H C-Reactive Protein Total Protein Albumin 2.9 L Vancomycin Trough 04/23/21 04/23/21 04/23/21 10:40 12:44 14:01 WBC RBC Hgb Hct MCV MCH Plt Count Seg Neuts % (Manual) Lymphocytes % (Manual) Nucleated RBC % Lymphocytes # (Manual) ABG pO2 ABG HCO3 ABG Base Excess ABG Hemoglobin VBG pH Oxyhemoglobin Sodium Potassium Chloride Carbon Dioxide BUN Creatinine Glucose POC Glucose > 600 H 550 H Hemoglobin A1c Lactic Acid Calcium Phosphorus 1.50 L Magnesium Alkaline Phosphatase C-Reactive Protein Total Protein Albumin Vancomycin Trough 04/23/21 04/23/21 04/23/21 14:01 14:04 14:56 WBC RBC Hgb Hct MCV MCH Plt Count Seg Neuts % (Manual) Lymphocytes % (Manual) Nucleated RBC % Lymphocytes # (Manual) ABG pO2 ABG HCO3 ABG Base Excess ABG Hemoglobin VBG pH Oxyhemoglobin Sodium 125 L Potassium 3.0 L Chloride 89.2 L Carbon Dioxide 6 L* BUN 45 H Creatinine 1.3 H Glucose 594 H* POC Glucose 518 H 425 H Hemoglobin A1c Lactic Acid Calcium 10.9 H Phosphorus Magnesium Alkaline Phosphatase C-Reactive Protein Total Protein Albumin Vancomycin Trough 04/23/21 04/23/21 04/23/21 15:43 15:48 17:21 WBC RBC Hgb Hct MCV MCH Plt Count Seg Neuts % (Manual) Lymphocytes % (Manual) Nucleated RBC % Lymphocytes # (Manual) ABG pO2 ABG HCO3 ABG Base Excess ABG Hemoglobin VBG pH Oxyhemoglobin Sodium 131 L Potassium 2.9 L* Chloride Carbon Dioxide 8 L* BUN 39 H Creatinine Glucose 434 H POC Glucose 410 H 407 H Hemoglobin A1c Lactic Acid Calcium 10.3 H Phosphorus Magnesium Alkaline Phosphatase C-Reactive Protein Total Protein Albumin Vancomycin Trough 04/23/21 04/23/21 04/23/21 18:07 19:13 19:54 WBC RBC Hgb Hct MCV MCH Plt Count Seg Neuts % (Manual) Lymphocytes % (Manual) Nucleated RBC % Lymphocytes # (Manual) ABG pO2 ABG HCO3 ABG Base Excess ABG Hemoglobin VBG pH Oxyhemoglobin Sodium 131 L Potassium 3.1 L Chloride 95.9 L Carbon Dioxide 7 L* BUN 39 H Creatinine Glucose 391 H POC Glucose 428 H 350 H Hemoglobin A1c Lactic Acid Calcium 11.2 H Phosphorus Magnesium Alkaline Phosphatase C-Reactive Protein Total Protein Albumin Vancomycin Trough 04/23/21 04/23/21 04/23/21 19:54 20:12 20:59 WBC RBC Hgb Hct MCV MCH Plt Count Seg Neuts % (Manual) Lymphocytes % (Manual) Nucleated RBC % Lymphocytes # (Manual) ABG pO2 ABG HCO3 ABG Base Excess ABG Hemoglobin VBG pH Oxyhemoglobin Sodium Potassium Chloride Carbon Dioxide BUN Creatinine Glucose POC Glucose 365 H 286 H Hemoglobin A1c Lactic Acid Calcium Phosphorus 1.10 L D Magnesium Alkaline Phosphatase C-Reactive Protein Total Protein Albumin Vancomycin Trough 04/23/21 04/23/21 04/23/21 22:05 22:23 22:59 WBC RBC Hgb Hct MCV MCH Plt Count Seg Neuts % (Manual) Lymphocytes % (Manual) Nucleated RBC % Lymphocytes # (Manual) ABG pO2 ABG HCO3 ABG Base Excess ABG Hemoglobin VBG pH Oxyhemoglobin Sodium 135 L Potassium 3.2 L Chloride Carbon Dioxide 10 L BUN 35 H Creatinine Glucose 300 H POC Glucose 257 H 238 H Hemoglobin A1c Lactic Acid Calcium 11.6 H Phosphorus Magnesium Alkaline Phosphatase C-Reactive Protein Total Protein Albumin Vancomycin Trough 04/23/21 04/24/21 04/24/21 23:57 00:10 00:56 WBC RBC Hgb Hct MCV MCH Plt Count Seg Neuts % (Manual) Lymphocytes % (Manual) Nucleated RBC % Lymphocytes # (Manual) ABG pO2 ABG HCO3 ABG Base Excess ABG Hemoglobin VBG pH Oxyhemoglobin Sodium Potassium 3.2 L Chloride Carbon Dioxide 13 L BUN 33 H Creatinine Glucose 267 H POC Glucose 223 H 254 H Hemoglobin A1c Lactic Acid Calcium 11.2 H Phosphorus 1.20 L Magnesium Alkaline Phosphatase C-Reactive Protein Total Protein Albumin Vancomycin Trough 04/24/21 04/24/21 04/24/21 01:58 02:58 03:57 WBC RBC Hgb Hct MCV MCH Plt Count Seg Neuts % (Manual) Lymphocytes % (Manual) Nucleated RBC % Lymphocytes # (Manual) ABG pO2 ABG HCO3 ABG Base Excess ABG Hemoglobin VBG pH Oxyhemoglobin Sodium Potassium Chloride Carbon Dioxide BUN Creatinine Glucose POC Glucose 264 H 251 H 200 H Hemoglobin A1c Lactic Acid Calcium Phosphorus Magnesium Alkaline Phosphatase C-Reactive Protein Total Protein Albumin Vancomycin Trough 04/24/21 04/24/21 04/24/21 04:16 04:16 04:16 WBC RBC Hgb Hct MCV MCH 26 L Plt Count Seg Neuts % (Manual) Lymphocytes % (Manual) Nucleated RBC % Lymphocytes # (Manual) ABG pO2 ABG HCO3 ABG Base Excess ABG Hemoglobin VBG pH Oxyhemoglobin Sodium Potassium Chloride 108.0 H Carbon Dioxide 13 L BUN 31 H Creatinine Glucose 243 H POC Glucose Hemoglobin A1c 18.3 H Lactic Acid Calcium 10.9 H Phosphorus 1.80 L D Magnesium Alkaline Phosphatase C-Reactive Protein Total Protein Albumin Vancomycin Trough 04/24/21 04/24/21 04/24/21 04:59 05:53 06:51 WBC RBC Hgb Hct MCV MCH Plt Count Seg Neuts % (Manual) Lymphocytes % (Manual) Nucleated RBC % Lymphocytes # (Manual) ABG pO2 ABG HCO3 ABG Base Excess ABG Hemoglobin VBG pH Oxyhemoglobin Sodium Potassium Chloride Carbon Dioxide BUN Creatinine Glucose POC Glucose 208 H 213 H 161 H Hemoglobin A1c Lactic Acid Calcium Phosphorus Magnesium Alkaline Phosphatase C-Reactive Protein Total Protein Albumin Vancomycin Trough 04/24/21 04/24/21 04/24/21 07:58 09:21 10:06 WBC RBC Hgb Hct MCV MCH Plt Count Seg Neuts % (Manual) Lymphocytes % (Manual) Nucleated RBC % Lymphocytes # (Manual) ABG pO2 ABG HCO3 ABG Base Excess ABG Hemoglobin VBG pH Oxyhemoglobin Sodium Potassium Chloride Carbon Dioxide BUN Creatinine Glucose POC Glucose 149 H 178 H 164 H Hemoglobin A1c Lactic Acid Calcium Phosphorus Magnesium Alkaline Phosphatase C-Reactive Protein Total Protein Albumin Vancomycin Trough 04/24/21 04/24/21 04/24/21 11:03 12:07 12:14 WBC RBC Hgb Hct MCV MCH Plt Count Seg Neuts % (Manual) Lymphocytes % (Manual) Nucleated RBC % Lymphocytes # (Manual) ABG pO2 ABG HCO3 ABG Base Excess ABG Hemoglobin VBG pH Oxyhemoglobin Sodium Potassium 3.2 L Chloride 108.7 H Carbon Dioxide 16 L BUN 24 H Creatinine Glucose 160 H POC Glucose 157 H 142 H Hemoglobin A1c Lactic Acid Calcium 10.5 H Phosphorus 0.70 L* D Magnesium Alkaline Phosphatase C-Reactive Protein Total Protein Albumin Vancomycin Trough 04/24/21 04/24/21 04/24/21 12:14 13:02 14:00 WBC RBC Hgb Hct MCV MCH Plt Count Seg Neuts % (Manual) Lymphocytes % (Manual) Nucleated RBC % Lymphocytes # (Manual) ABG pO2 ABG HCO3 ABG Base Excess ABG Hemoglobin VBG pH Oxyhemoglobin Sodium Potassium Chloride Carbon Dioxide BUN Creatinine Glucose POC Glucose 138 H 150 H Hemoglobin A1c Lactic Acid 2.50 H* Calcium Phosphorus Magnesium Alkaline Phosphatase C-Reactive Protein Total Protein Albumin Vancomycin Trough 04/24/21 04/24/21 04/24/21 15:14 16:07 17:11 WBC RBC Hgb Hct MCV MCH Plt Count Seg Neuts % (Manual) Lymphocytes % (Manual) Nucleated RBC % Lymphocytes # (Manual) ABG pO2 ABG HCO3 ABG Base Excess ABG Hemoglobin VBG pH Oxyhemoglobin Sodium Potassium Chloride Carbon Dioxide BUN Creatinine Glucose POC Glucose 145 H 148 H 156 H Hemoglobin A1c Lactic Acid Calcium Phosphorus Magnesium Alkaline Phosphatase C-Reactive Protein Total Protein Albumin Vancomycin Trough 04/24/21 04/24/21 04/24/21 18:12 18:24 19:55 WBC RBC Hgb Hct MCV MCH Plt Count Seg Neuts % (Manual) Lymphocytes % (Manual) Nucleated RBC % Lymphocytes # (Manual) ABG pO2 ABG HCO3 ABG Base Excess ABG Hemoglobin VBG pH Oxyhemoglobin Sodium Potassium Chloride 109.2 H Carbon Dioxide 15 L BUN 22 H Creatinine Glucose 159 H POC Glucose 153 H 176 H Hemoglobin A1c Lactic Acid Calcium Phosphorus 1.80 L D Magnesium Alkaline Phosphatase C-Reactive Protein 24.30 H Total Protein Albumin Vancomycin Trough 04/24/21 04/24/21 04/24/21 20:55 22:04 23:02 WBC RBC Hgb Hct MCV MCH Plt Count Seg Neuts % (Manual) Lymphocytes % (Manual) Nucleated RBC % Lymphocytes # (Manual) ABG pO2 ABG HCO3 ABG Base Excess ABG Hemoglobin VBG pH Oxyhemoglobin Sodium Potassium Chloride Carbon Dioxide BUN Creatinine Glucose POC Glucose 146 H 169 H Hemoglobin A1c Lactic Acid 3.10 H* Calcium Phosphorus Magnesium Alkaline Phosphatase C-Reactive Protein Total Protein Albumin Vancomycin Trough 04/24/21 04/25/21 04/25/21 23:13 00:05 01:28 WBC RBC Hgb Hct MCV MCH Plt Count Seg Neuts % (Manual) Lymphocytes % (Manual) Nucleated RBC % Lymphocytes # (Manual) ABG pO2 ABG HCO3 ABG Base Excess ABG Hemoglobin VBG pH Oxyhemoglobin Sodium Potassium Chloride Carbon Dioxide BUN Creatinine Glucose POC Glucose 144 H 150 H 142 H Hemoglobin A1c Lactic Acid Calcium Phosphorus Magnesium Alkaline Phosphatase C-Reactive Protein Total Protein Albumin Vancomycin Trough 04/25/21 04/25/21 04/25/21 02:03 03:07 04:17 WBC RBC Hgb Hct MCV MCH Plt Count Seg Neuts % (Manual) Lymphocytes % (Manual) Nucleated RBC % Lymphocytes # (Manual) ABG pO2 ABG HCO3 ABG Base Excess ABG Hemoglobin VBG pH Oxyhemoglobin Sodium Potassium Chloride Carbon Dioxide BUN Creatinine Glucose POC Glucose 148 H 161 H 158 H Hemoglobin A1c Lactic Acid Calcium Phosphorus Magnesium Alkaline Phosphatase C-Reactive Protein Total Protein Albumin Vancomycin Trough 04/25/21 04/25/21 04/25/21 05:48 06:52 07:58 WBC RBC Hgb Hct MCV MCH Plt Count Seg Neuts % (Manual) Lymphocytes % (Manual) Nucleated RBC % Lymphocytes # (Manual) ABG pO2 ABG HCO3 ABG Base Excess ABG Hemoglobin VBG pH Oxyhemoglobin Sodium Potassium Chloride Carbon Dioxide BUN Creatinine Glucose POC Glucose 136 H 137 H 143 H Hemoglobin A1c Lactic Acid Calcium Phosphorus Magnesium Alkaline Phosphatase C-Reactive Protein Total Protein Albumin Vancomycin Trough 04/25/21 04/25/21 04/25/21 08:10 08:10 08:10 WBC RBC Hgb 9.5 L Hct 28.8 L MCV MCH 26 L Plt Count Seg Neuts % (Manual) 33.0 L Lymphocytes % (Manual) Nucleated RBC % Lymphocytes # (Manual) 1.1 L ABG pO2 ABG HCO3 ABG Base Excess ABG Hemoglobin VBG pH Oxyhemoglobin Sodium Potassium 3.3 L Chloride 109.0 H Carbon Dioxide 16 L BUN 23 H Creatinine Glucose 151 H POC Glucose Hemoglobin A1c Lactic Acid 2.10 H* Calcium Phosphorus 2.20 L D Magnesium 1.60 L Alkaline Phosphatase C-Reactive Protein Total Protein Albumin Vancomycin Trough 04/25/21 04/25/21 04/25/21 08:53 09:59 11:20 WBC RBC Hgb Hct MCV MCH Plt Count Seg Neuts % (Manual) Lymphocytes % (Manual) Nucleated RBC % Lymphocytes # (Manual) ABG pO2 ABG HCO3 ABG Base Excess ABG Hemoglobin VBG pH Oxyhemoglobin Sodium Potassium Chloride Carbon Dioxide BUN Creatinine Glucose POC Glucose 132 H 141 H 141 H Hemoglobin A1c Lactic Acid Calcium Phosphorus Magnesium Alkaline Phosphatase C-Reactive Protein Total Protein Albumin Vancomycin Trough 04/25/21 04/25/21 04/25/21 11:20 12:04 12:26 WBC RBC Hgb Hct MCV MCH Plt Count Seg Neuts % (Manual) Lymphocytes % (Manual) Nucleated RBC % Lymphocytes # (Manual) ABG pO2 73.2 L ABG HCO3 16.2 L ABG Base Excess -7.1 L ABG Hemoglobin 8.7 L VBG pH Oxyhemoglobin 94.8 L Sodium Potassium 3.4 L Chloride 109.5 H Carbon Dioxide 14 L BUN 21 H Creatinine Glucose 155 H POC Glucose 129 H Hemoglobin A1c Lactic Acid Calcium Phosphorus 1.90 L Magnesium 1.60 L Alkaline Phosphatase C-Reactive Protein Total Protein Albumin Vancomycin Trough 04/25/21 04/25/21 04/25/21 13:04 13:58 15:09 WBC RBC Hgb Hct MCV MCH Plt Count Seg Neuts % (Manual) Lymphocytes % (Manual) Nucleated RBC % Lymphocytes # (Manual) ABG pO2 ABG HCO3 ABG Base Excess ABG Hemoglobin VBG pH Oxyhemoglobin Sodium Potassium Chloride Carbon Dioxide BUN Creatinine Glucose POC Glucose 135 H 140 H 134 H Hemoglobin A1c Lactic Acid Calcium Phosphorus Magnesium Alkaline Phosphatase C-Reactive Protein Total Protein Albumin Vancomycin Trough 04/25/21 04/25/21 04/25/21 16:00 18:56 18:58 WBC RBC Hgb Hct MCV MCH Plt Count Seg Neuts % (Manual) Lymphocytes % (Manual) Nucleated RBC % Lymphocytes # (Manual) ABG pO2 ABG HCO3 ABG Base Excess ABG Hemoglobin VBG pH Oxyhemoglobin Sodium Potassium Chloride Carbon Dioxide BUN Creatinine Glucose POC Glucose 135 H 170 H Hemoglobin A1c Lactic Acid 2.10 H* Calcium Phosphorus Magnesium Alkaline Phosphatase C-Reactive Protein Total Protein Albumin Vancomycin Trough 04/25/21 04/25/21 04/25/21 18:58 19:52 20:53 WBC RBC Hgb Hct MCV MCH Plt Count Seg Neuts % (Manual) Lymphocytes % (Manual) Nucleated RBC % Lymphocytes # (Manual) ABG pO2 ABG HCO3 ABG Base Excess ABG Hemoglobin VBG pH Oxyhemoglobin Sodium Potassium Chloride 110.1 H Carbon Dioxide 13 L BUN 23 H Creatinine Glucose 206 H POC Glucose 162 H 171 H Hemoglobin A1c Lactic Acid Calcium Phosphorus Magnesium 2.40 H Alkaline Phosphatase C-Reactive Protein Total Protein Albumin Vancomycin Trough 04/25/21 04/25/21 04/26/21 21:54 22:53 00:03 WBC RBC Hgb Hct MCV MCH Plt Count Seg Neuts % (Manual) Lymphocytes % (Manual) Nucleated RBC % Lymphocytes # (Manual) ABG pO2 ABG HCO3 ABG Base Excess ABG Hemoglobin VBG pH Oxyhemoglobin Sodium Potassium Chloride Carbon Dioxide BUN Creatinine Glucose POC Glucose 139 H 140 H 129 H Hemoglobin A1c Lactic Acid Calcium Phosphorus Magnesium Alkaline Phosphatase C-Reactive Protein Total Protein Albumin Vancomycin Trough 04/26/21 04/26/21 04/26/21 00:38 01:00 01:56 WBC RBC Hgb Hct MCV MCH Plt Count Seg Neuts % (Manual) Lymphocytes % (Manual) Nucleated RBC % Lymphocytes # (Manual) ABG pO2 ABG HCO3 ABG Base Excess ABG Hemoglobin VBG pH Oxyhemoglobin Sodium Potassium Chloride 112.6 H Carbon Dioxide 14 L BUN 22 H Creatinine Glucose 149 H POC Glucose 126 H 137 H Hemoglobin A1c Lactic Acid Calcium Phosphorus Magnesium 2.40 H Alkaline Phosphatase C-Reactive Protein Total Protein Albumin Vancomycin Trough 04/26/21 04/26/2121 02:54 04:04 05:02 WBC RBC 3.44 L Hgb 8.9 L Hct 26.9 L MCV 78 L MCH 26 L Plt Count Seg Neuts % (Manual) Lymphocytes % (Manual) Nucleated RBC % Lymphocytes # (Manual) ABG pO2 ABG HCO3 ABG Base Excess ABG Hemoglobin VBG pH Oxyhemoglobin Sodium Potassium Chloride Carbon Dioxide BUN Creatinine Glucose POC Glucose 132 H 130 H Hemoglobin A1c Lactic Acid Calcium Phosphorus Magnesium Alkaline Phosphatase C-Reactive Protein Total Protein Albumin Vancomycin Trough 04/26/21 04/26/21 04/26/21 05:02 05:03 06:06 WBC RBC Hgb Hct MCV MCH Plt Count Seg Neuts % (Manual) Lymphocytes % (Manual) Nucleated RBC % Lymphocytes # (Manual) ABG pO2 ABG HCO3 ABG Base Excess ABG Hemoglobin VBG pH Oxyhemoglobin Sodium Potassium Chloride 114.8 H Carbon Dioxide 14 L BUN 22 H Creatinine Glucose 129 H POC Glucose 115 H 129 H Hemoglobin A1c Lactic Acid Calcium Phosphorus Magnesium Alkaline Phosphatase C-Reactive Protein Total Protein Albumin Vancomycin Trough 04/26/21 04/26/21 04/26/21 06:53 07:58 09:09 WBC RBC Hgb Hct MCV MCH Plt Count Seg Neuts % (Manual) Lymphocytes % (Manual) Nucleated RBC % Lymphocytes # (Manual) ABG pO2 ABG HCO3 ABG Base Excess ABG Hemoglobin VBG pH Oxyhemoglobin Sodium Potassium Chloride Carbon Dioxide BUN Creatinine Glucose POC Glucose 121 H 124 H 125 H Hemoglobin A1c Lactic Acid Calcium Phosphorus Magnesium Alkaline Phosphatase C-Reactive Protein Total Protein Albumin Vancomycin Trough 04/26/21 04/26/21 04/26/21 10:05 10:52 12:00 WBC RBC Hgb Hct MCV MCH Plt Count Seg Neuts % (Manual) Lymphocytes % (Manual) Nucleated RBC % Lymphocytes # (Manual) ABG pO2 ABG HCO3 ABG Base Excess ABG Hemoglobin VBG pH Oxyhemoglobin Sodium Potassium Chloride Carbon Dioxide BUN Creatinine Glucose POC Glucose 131 H 129 H 126 H Hemoglobin A1c Lactic Acid Calcium Phosphorus Magnesium Alkaline Phosphatase C-Reactive Protein Total Protein Albumin Vancomycin Trough 04/26/21 04/26/21 04/26/21 13:17 14:06 14:11 WBC RBC Hgb Hct MCV MCH Plt Count Seg Neuts % (Manual) Lymphocytes % (Manual) Nucleated RBC % Lymphocytes # (Manual) ABG pO2 ABG HCO3 ABG Base Excess ABG Hemoglobin VBG pH Oxyhemoglobin Sodium Potassium 5.3 H D Chloride 112.2 H Carbon Dioxide 14 L BUN 22 H Creatinine Glucose 116 H POC Glucose 130 H 132 H Hemoglobin A1c Lactic Acid Calcium Phosphorus Magnesium 2.40 H Alkaline Phosphatase C-Reactive Protein Total Protein Albumin Vancomycin Trough 04/26/21 04/26/21 04/26/21 15:07 15:20 16:05 WBC RBC Hgb Hct MCV MCH Plt Count Seg Neuts % (Manual) Lymphocytes % (Manual) Nucleated RBC % Lymphocytes # (Manual) ABG pO2 ABG HCO3 ABG Base Excess ABG Hemoglobin VBG pH Oxyhemoglobin Sodium Potassium Chloride 112.4 H Carbon Dioxide 13 L BUN 22 H Creatinine Glucose 143 H POC Glucose 130 H 156 H Hemoglobin A1c Lactic Acid Calcium Phosphorus Magnesium Alkaline Phosphatase C-Reactive Protein Total Protein Albumin Vancomycin Trough 04/26/21 04/26/21 04/27/21 17:55 19:27 00:02 WBC RBC Hgb Hct MCV MCH Plt Count Seg Neuts % (Manual) Lymphocytes % (Manual) Nucleated RBC % Lymphocytes # (Manual) ABG pO2 ABG HCO3 ABG Base Excess ABG Hemoglobin VBG pH Oxyhemoglobin Sodium Potassium Chloride Carbon Dioxide BUN Creatinine Glucose POC Glucose 194 H 261 H Hemoglobin A1c Lactic Acid Calcium Phosphorus Magnesium Alkaline Phosphatase C-Reactive Protein Total Protein Albumin Vancomycin Trough 38.2 H 04/27/21 04/27/21 04/27/21 04:03 04:03 05:33 WBC RBC 3.20 L Hgb 8.1 L Hct 25.1 L MCV 78 L MCH 25 L Plt Count Seg Neuts % (Manual) Lymphocytes % (Manual) Nucleated RBC % Lymphocytes # (Manual) ABG pO2 ABG HCO3 ABG Base Excess ABG Hemoglobin VBG pH Oxyhemoglobin Sodium Potassium Chloride 112.4 H Carbon Dioxide 12 L BUN 30 H Creatinine Glucose 330 H POC Glucose 311 H Hemoglobin A1c Lactic Acid Calcium Phosphorus Magnesium Alkaline Phosphatase C-Reactive Protein Total Protein Albumin Vancomycin Trough 04/27/21 04/27/21 04/27/21 09:51 13:15 16:43 WBC RBC Hgb Hct MCV MCH Plt Count Seg Neuts % (Manual) Lymphocytes % (Manual) Nucleated RBC % Lymphocytes # (Manual) ABG pO2 ABG HCO3 ABG Base Excess ABG Hemoglobin VBG pH Oxyhemoglobin Sodium Potassium Chloride Carbon Dioxide BUN Creatinine Glucose POC Glucose 335 H 291 H 218 H Hemoglobin A1c Lactic Acid Calcium Phosphorus Magnesium Alkaline Phosphatase C-Reactive Protein Total Protein Albumin Vancomycin Trough 04/27/21 04/27/21 04/28/21 18:10 22:08 02:15 WBC RBC Hgb Hct MCV MCH Plt Count Seg Neuts % (Manual) Lymphocytes % (Manual) Nucleated RBC % Lymphocytes # (Manual) ABG pO2 ABG HCO3 ABG Base Excess ABG Hemoglobin VBG pH Oxyhemoglobin Sodium Potassium Chloride Carbon Dioxide BUN Creatinine Glucose POC Glucose 177 H 136 H 152 H Hemoglobin A1c Lactic Acid Calcium Phosphorus Magnesium Alkaline Phosphatase C-Reactive Protein Total Protein Albumin Vancomycin Trough 04/28/21 04/28/21 04/28/21 04:41 04:41 06:03 WBC RBC 3.50 L Hgb 8.9 L Hct 27.3 L MCV 78 L MCH 26 L Plt Count Seg Neuts % (Manual) Lymphocytes % (Manual) Nucleated RBC % Lymphocytes # (Manual) ABG pO2 ABG HCO3 ABG Base Excess ABG Hemoglobin VBG pH Oxyhemoglobin Sodium Potassium Chloride 113.5 H Carbon Dioxide 16 L BUN 37 H Creatinine Glucose 167 H POC Glucose 174 H Hemoglobin A1c Lactic Acid Calcium Phosphorus Magnesium Alkaline Phosphatase C-Reactive Protein Total Protein Albumin Vancomycin Trough 04/28/21 04/28/21 04/28/21 08:42 11:34 17:15 WBC RBC Hgb Hct MCV MCH Plt Count Seg Neuts % (Manual) Lymphocytes % (Manual) Nucleated RBC % Lymphocytes # (Manual) ABG pO2 ABG HCO3 ABG Base Excess ABG Hemoglobin VBG pH Oxyhemoglobin Sodium Potassium Chloride Carbon Dioxide BUN Creatinine Glucose POC Glucose 212 H 228 H 236 H Hemoglobin A1c Lactic Acid Calcium Phosphorus Magnesium Alkaline Phosphatase C-Reactive Protein Total Protein Albumin Vancomycin Trough 04/28/21 04/29/21 04/29/21 21:58 01:55 04:00 WBC 11.7 H RBC 3.35 L Hgb 8.5 L Hct 26.4 L MCV MCH 25 L Plt Count Seg Neuts % (Manual) Lymphocytes % (Manual) Nucleated RBC % Lymphocytes # (Manual) ABG pO2 ABG HCO3 ABG Base Excess ABG Hemoglobin VBG pH Oxyhemoglobin Sodium Potassium Chloride Carbon Dioxide BUN Creatinine Glucose POC Glucose 208 H 137 H Hemoglobin A1c Lactic Acid Calcium Phosphorus Magnesium Alkaline Phosphatase C-Reactive Protein Total Protein Albumin Vancomycin Trough 04/29/21 04/29/21 04/29/21 04:00 05:16 11:02 WBC RBC Hgb Hct MCV MCH Plt Count Seg Neuts % (Manual) Lymphocytes % (Manual) Nucleated RBC % Lymphocytes # (Manual) ABG pO2 ABG HCO3 ABG Base Excess ABG Hemoglobin VBG pH Oxyhemoglobin Sodium 146 H Potassium Chloride 112.4 H Carbon Dioxide BUN 41 H Creatinine Glucose 115 H POC Glucose 114 H 144 H Hemoglobin A1c Lactic Acid Calcium Phosphorus Magnesium Alkaline Phosphatase C-Reactive Protein Total Protein Albumin Vancomycin Trough 04/30/21 04/30/21 04/30/21 00:23 04:41 04:41 WBC 14.4 H RBC 3.12 L Hgb 7.8 L Hct 24.7 L MCV MCH 25 L Plt Count 138 L Seg Neuts % (Manual) Lymphocytes % (Manual) Nucleated RBC % Lymphocytes # (Manual) ABG pO2 ABG HCO3 ABG Base Excess ABG Hemoglobin VBG pH Oxyhemoglobin Sodium Potassium Chloride 108.0 H Carbon Dioxide BUN 42 H Creatinine Glucose 215 H POC Glucose 126 H Hemoglobin A1c Lactic Acid Calcium Phosphorus Magnesium Alkaline Phosphatase 171 H C-Reactive Protein Total Protein 6.1 L Albumin 1.4 L Vancomycin Trough 04/30/21 04/30/21 04/30/21 05:22 11:55 17:36 WBC RBC Hgb Hct MCV MCH Plt Count Seg Neuts % (Manual) Lymphocytes % (Manual) Nucleated RBC % Lymphocytes # (Manual) ABG pO2 ABG HCO3 ABG Base Excess ABG Hemoglobin VBG pH Oxyhemoglobin Sodium Potassium Chloride Carbon Dioxide BUN Creatinine Glucose POC Glucose 196 H 224 H 196 H Hemoglobin A1c Lactic Acid Calcium Phosphorus Magnesium Alkaline Phosphatase C-Reactive Protein Total Protein Albumin Vancomycin Trough 05/01/21 05/01/21 05/01/21 04:01 05:37 05:37 WBC 16.9 H RBC 2.97 L Hgb 7.4 L Hct 23.1 L MCV 78 L MCH 25 L Plt Count Seg Neuts % (Manual) Lymphocytes % (Manual) Nucleated RBC % Lymphocytes # (Manual) ABG pO2 ABG HCO3 ABG Base Excess ABG Hemoglobin VBG pH Oxyhemoglobin Sodium Potassium Chloride 108.4 H Carbon Dioxide BUN 41 H Creatinine Glucose 124 H POC Glucose 122 H Hemoglobin A1c Lactic Acid Calcium 8.0 L Phosphorus Magnesium Alkaline Phosphatase C-Reactive Protein Total Protein Albumin Vancomycin Trough 05/01/21 05/01/21 05/01/21 06:27 13:45 16:40 WBC RBC Hgb Hct MCV MCH Plt Count Seg Neuts % (Manual) Lymphocytes % (Manual) Nucleated RBC % Lymphocytes # (Manual) ABG pO2 ABG HCO3 ABG Base Excess ABG Hemoglobin VBG pH Oxyhemoglobin Sodium Potassium Chloride Carbon Dioxide BUN Creatinine Glucose POC Glucose 126 H 231 H 266 H Hemoglobin A1c Lactic Acid Calcium Phosphorus Magnesium Alkaline Phosphatase C-Reactive Protein Total Protein Albumin Vancomycin Trough 05/01/21 05/02/21 05/02/21 23:16 05:43 11:27 WBC RBC Hgb Hct MCV MCH Plt Count Seg Neuts % (Manual) Lymphocytes % (Manual) Nucleated RBC % Lymphocytes # (Manual) ABG pO2 ABG HCO3 ABG Base Excess ABG Hemoglobin VBG pH Oxyhemoglobin Sodium Potassium Chloride Carbon Dioxide BUN Creatinine Glucose POC Glucose 192 H 236 H 284 H Hemoglobin A1c Lactic Acid Calcium Phosphorus Magnesium Alkaline Phosphatase C-Reactive Protein Total Protein Albumin Vancomycin Trough Allied health notes reviewed: nursing
[2021-05-02] MEDS: ACETAMINOPHEN 325 MG TAB PO PRN (18:33)
[2021-05-02] MEDS: HYDROmorphone 1 MG/1 ML INJ IV PRN (21:04)
[2021-05-02] MEDS: ALBUTEROL 2.5 MG/3 ML NEBU IH PRN (21:17)
[2021-05-02] MEDS: SENNOSIDES 8.6 MG TAB PO SCH (21:25)
[2021-05-03] MEDS: FREE WATER PO SCH ×5 (05:13→23:06)
[2021-05-03 08:26] LABS: Calcium 9.1 mg/dL (8.4-10.2)
--- NOTE | 2021-05-03 08:37 | Progress Note ---
Assessment and Plan Assessment and plan: This is a 51-year-old female with DM, noncompliance, obesity, arthritis and right knee surgery admitted for DKA Continue tube feeding, failed swallow evaluation, high risk for aspiration --Septic arthritis; knee; Ortho is planning knee/synovial debridement tomorrow N.p.o. from midnight, continue current antibiotics per ID -- Sepsis, group B Streptococcus bacteremia, h/o right septic arthritis -Infectious disease consulted, appreciate recommendations -ABX therapy per ID: Ceftriaxone 2 g every 24 hours -Right knee x-ray shows large joint effusion s/p arthrocentesis Positive synovial fluid cultures, ID recommended total 6 weeks of Rocephin --Acute metabolic encephalopathy (improved significantly) Patient is more alert and awake, supportive care -Echocardiogram shows mildly dilated right heart chamber, mild to moderate TR, moderate pulmonary hypertension, RVSP 50-55, LVEF 45-50 --Respiratory: Acute hypoxic respiratory failure Nasal cannula oxygen, intermittent BiPAP Home O2 evaluation --Oropharyngeal dysphagia; On tube feeding Speech therapy following We will start oral nutrition and speech therapist clears --Severe protein calorie malnutrition --Hypoalbuminemia, albumin 1.7 Dietitian/elementary education tutor following Continue tube feeding, nutrition supplements Supportive care -- Hypernatremia (resolved) Closely monitor electrolytes --Leukocytosis/trending down Secondary to sepsis, continue antibiotics and supportive care Closely monitor --S/p DKA, h/o uncontrolled DM/present on admission -Hemoglobin A1c 18.3 Blood sugars moderate control -Avoid hypoglycemia Accu-Chek sliding scale coverage tube feeding Glucerna --DVT prophylaxis Subcu Lovenox --Full CODE STATUS Will closely monitor the patient and adjust the management as needed Plan of care reviewed with the patient and her nurse Coupon And Bond Collection Clerk recommendations noted and appreciated History Interval history: This is a 51-year-old female with DM, OA, medication noncompliance, obesity who presented to emergency department on 04/23 with complaints of weakness, elevated blood glucose levels, nausea, polydipsia, polyuria and diminished oral intake over the past week with worsening symptoms over the past 2 days. Patient acknowledges noncompliance with oral antihyperglycemic therapy. Patient was seen and evaluated in the emergency department and found to have lab work consistent with diabetic ketoacidosis, metabolic encephalopathy, metabolic acidosis and volume depletion. Patient was admitted to the hospital service to the ICU initiated DKA protocol with CCM consult. 04/24/21- Patient remains on DKA protocol. Still very lethargic this am, following simple commands. Rt. knee wound and swelling noted, and nursing staff also reported thick, white vaginal discharge. C/f sepsis, blood culture ordered, this am UA noted. Will start patient on PO difflucan for possible yeast infection, pending culture data. Anion GAP is still 18 this am, will continue DKA protocol for now. Continue to monitor electrolytes, serial BMP ordered. 04/25/21- Patient appears to be in distress this am, now on 3L NC. Lactic acidosis worsen overnight, X1L LR bolus adminstered. Ordered placed for stat ABGs. Blood culture growing GPC 3/4 bottles, patient remains afebrile with no leukocytosis. IV abx was escalated, ID consulted. Ortho consult is still pending, order placed for XR of the Rt. knee. Given patient worsen condition and high anio, gap, will continue insulin gtt for now. Low K and mg was repleted. Continue serial BMP,mg, and phosp 04/26/21- Patient appears more alert and awake this am, talkative, and following commands. Remains on DKA protocol, gap is closedX2, will transition patient to SSI and basal insulin and initiate enteral nutrition. Patient remains afebrile overnight, continue IV Abx per ID. 04/27/21- TASHA overnight. Patient mentation continue to improve. Worsening hyperglycemia, patient is tolerating TF. 70/30 added BID and SSI was adjusted to high dose Q4hrs. D/W CCM patient is stable for transfer to [facility] 04/28/21- Patient continue to improve. Remains drowsy this am, however, easily arousable. Now on 4L NC, still requiring Q4hrs NT suction due to increased secretions and weak cough. Continue to wean O2 supplement as tolerated, F/U CXR in the am. Continue IV Abx per ID. 04/29: Patient is awake and alert with strong cough and able to clear own airway. Ortho consult for right knee aspiration pending. 04/30: No acute events reported overnight, patient will be transferred to the floor. MR of right knee ordered. 05/01; patient had arthrocentesis 05/02; ID recommended total 6 weeks of Rocephin, case management to assist with antibiotics 05/02; patient is febrile, sepsis and positive cultures, currently on Rocephin, ID following 05/03; patient remains on tube feeding, speech therapist has not cleared for oral nutrition, aspiration risk Septic arthritis awaiting synovial debridement knee joint History Interval history: I have seen and examined the patient at the bedside Patient's chart and medications reviewed Ortho is considering debridement of the knee synovitic cavity On antibiotics Mild distress vital signs reviewed Hospitalist Physical - Constitutional Vitals: Temp Pulse Resp BP Pulse Ox 99.4 F 110 H 22 152/81 97 05/03/21 06:18 05/03/21 06:18 05/03/21 06:18 05/03/21 06:18 05/03/21 06:18 General appearance: Present: no acute distress, obese, other - EENT Eyes: Present: PERRL, EOM intact ENT: other (Dobbhoff in place) - Neck Neck: Present: supple, normal ROM - Respiratory Respiratory effort: normal Respiratory: bilateral: diminished, negative: rales, rhonchi, wheezing - Cardiovascular Rhythm: regular Heart Sounds: Present: S1 & S2 - Extremities Extremities: no ischemia, No edema - Abdominal General gastrointestinal: soft, non-tender, non-distended, normal bowel sounds - Integumentary Integumentary: Present: clear, warm - Psychiatric Psychiatric: appropriate mood/affect, cooperative - Neurologic Neurologic: CNII-XII intact, moves all extremities HEART Score - HEART Score Troponin: Troponin T < 0.010 ng/mL (0.00-0.029) 04/23/21 10:33 Results - Labs CBC & Chem 7: 05/03/21 07:05 05/03/21 07:05 Labs: Laboratory Last Values WBC 16.9 K/mm3 (4.5-11.0) H 05/01/21 05:37 RBC 2.97 M/mm3 (3.65-5.03) L 05/01/21 05:37 Hgb 7.4 gm/dl (10.1-14.3) L 05/01/21 05:37 Hct 23.1 % (30.3-42.9) L 05/01/21 05:37 MCV 78 fl (79-97) L 05/01/21 05:37 MCH 25 pg (28-32) L 05/01/21 05:37 MCHC 32 % (30-34) 05/01/21 05:37 RDW 14.9 % (13.2-15.2) 05/01/21 05:37 Plt Count 160 K/mm3 (140-440) 05/01/21 05:37 Add Manual Diff Complete 04/25/21 08:10 Total Counted 100 04/25/21 08:10 Seg Neutrophils % Rag Grader 04/23/21 10:33 Seg Neuts % (Manual) 33.0 % (40.0-70.0) L 04/25/21 08:10 Band Neutrophils % 23.0 % 04/25/21 08:10 Lymphocytes % (Manual) 19.0 % (13.4-35.0) 04/25/21 08:10 Reactive Lymphs % (Man) 1.0 % 04/25/21 08:10 Monocytes % (Manual) 1.0 % (0.0-7.3) 04/25/21 08:10 Eosinophils % (Manual) 1.0 % (0.0-4.3) 04/25/21 08:10 Metamyelocytes % 3.0 % 04/23/21 10:33 Myelocytes % 22.0 % 04/25/21 08:10 Nucleated RBC % Not Reportable 04/25/21 08:10 Seg Neutrophils # Man 1.9 K/mm3 (1.8-7.7) 04/25/21 08:10 Band Neutrophils # 1.3 K/mm3 04/25/21 08:10 Lymphocytes # (Manual) 1.1 K/mm3 (1.2-5.4) L 04/25/21 08:10 Abs React Lymphs (Man) 0.1 K/mm3 04/25/21 08:10 Monocytes # (Manual) 0.1 K/mm3 (0.0-0.8) 04/25/21 08:10 Eosinophils # (Manual) 0.1 K/mm3 (0.0-0.4) 04/25/21 08:10 Basophils # (Manual) 0.0 K/mm3 (0.0-0.1) 04/25/21 08:10 Metamyelocytes # 0.0 K/mm3 04/25/21 08:10 Myelocytes # 1.3 K/mm3 04/25/21 08:10 Promyelocytes # 0.0 K/mm3 04/25/21 08:10 Blast Cells # 0.0 K/mm3 04/25/21 08:10 WBC Morphology Not Reportable 04/25/21 08:10 Hypersegmented Neuts Not Reportable 04/25/21 08:10 Hyposegmented Neuts Not Reportable 04/25/21 08:10 Hypogranular Neuts Not Reportable 04/25/21 08:10 Smudge Cells Not Reportable 04/25/21 08:10 Toxic Granulation Not Reportable 04/25/21 08:10 Toxic Vacuolation Not Reportable 04/25/21 08:10 Dohle Bodies Not Reportable 04/25/21 08:10 Pelger-Huet Anomaly Not Reportable 04/25/21 08:10 Thierry Rods Not Reportable 04/25/21 08:10 Platelet Estimate Consistent w auto 04/25/21 08:10 Clumped Platelets Not Reportable 04/25/21 08:10 Plt Clumps, EDTA Not Reportable 04/25/21 08:10 Large Platelets Not Reportable 04/25/21 08:10 Giant Platelets Not Reportable 04/25/21 08:10 Platelet Satelliting Not Reportable 04/25/21 08:10 Plt Morphology Comment Not Reportable 04/25/21 08:10 RBC Morphology Not Reportable 04/25/21 08:10 Dimorphic RBCs Not Reportable 04/25/21 08:10 Polychromasia Not Reportable 04/25/21 08:10 Hypochromasia 1+ 04/25/21 08:10 Poikilocytosis Not Reportable 04/25/21 08:10 Anisocytosis Not Reportable 04/25/21 08:10 Microcytosis Not Reportable 04/25/21 08:10 Macrocytosis Not Reportable 04/25/21 08:10 Spherocytes Not Reportable 04/25/21 08:10 Pappenheimer Bodies Not Reportable 04/25/21 08:10 Sickle Cells Not Reportable 04/25/21 08:10 Target Cells Not Reportable 04/25/21 08:10 Tear Drop Cells Not Reportable 04/25/21 08:10 Ovalocytes Not Reportable 04/25/21 08:10 Helmet Cells Not Reportable 04/25/21 08:10 Mendieta-Wilmer Bodies Not Reportable 04/25/21 08:10 Frederick Rings Not Reportable 04/25/21 08:10 Kamari Cells Not Reportable 04/25/21 08:10 Bite Cells Not Reportable 04/25/21 08:10 Crenated Cell Not Reportable 04/25/21 08:10 Elliptocytes Not Reportable 04/25/21 08:10 Acanthocytes (Spur) Not Reportable 04/25/21 08:10 Rouleaux Not Reportable 04/25/21 08:10 Hemoglobin C Crystals Not Reportable 04/25/21 08:10 Schistocytes Not Reportable 04/25/21 08:10 Malaria parasites Not Reportable 04/25/21 08:10 Juan Bodies Not Reportable 04/25/21 08:10 Hem Pathologist Commnt No 04/25/21 08:10 ABG pH 7.426 pH Units (7.350-7.450) 04/25/21 11:20 ABG pCO2 25.3 mm Hg 04/25/21 11:20 ABG pO2 73.2 mm Hg (80.0-90.0) L 04/25/21 11:20 ABG HCO3 16.2 mmol/L (20.0-26.0) L 04/25/21 11:20 ABG O2 Saturation 96.9 % (95.0-99.0) 04/25/21 11:20 ABG O2 Content 11.6 (0.0-44) 04/25/21 11:20 ABG Base Excess -7.1 mmol/L (-2.0-3.0) L 04/25/21 11:20 ABG Hemoglobin 8.7 gm/dl (12.0-16.0) L 04/25/21 11:20 ABG Carboxyhemoglobin 1.6 % (0.0-5.0) 04/25/21 11:20 ABG Methemoglobin 0.6 % (0.0-1.5) 04/25/21 11:20 VBG pH 7.180 (7.320-7.420) L* 04/23/21 10:33 Oxyhemoglobin 94.8 % (95.0-99.0) L 04/25/21 11:20 FiO2 28 % 04/25/21 11:20 Sodium 144 mmol/L (137-145) 05/03/21 07:05 Potassium 4.5 mmol/L (3.6-5.0) 05/03/21 07:05 Chloride 104.2 mmol/L (98-107) 05/03/21 07:05 Carbon Dioxide 28 mmol/L (22-30) 05/03/21 07:05 Anion Gap 16 mmol/L 05/03/21 07:05 BUN 39 mg/dL (7-17) H 05/03/21 07:05 Creatinine 1.2 mg/dL (0.6-1.2) 05/03/21 07:05 Estimated GFR 58 ml/min 05/03/21 07:05 BUN/Creatinine Ratio 33 % 05/03/21 07:05 Glucose 163 mg/dL (65-100) H 05/03/21 07:05 POC Glucose 147 mg/dL (70-105) H 05/03/21 06:16 Hemoglobin A1c 18.3 % (4-6) H 04/24/21 04:16 Lactic Acid 1.70 mmol/L (0.7-2.0) 04/26/21 05:02 Uric Acid 7.5 mg/dL (3.5-7.6) 04/24/21 12:14 Calcium 9.1 mg/dL (8.4-10.2) 05/03/21 07:05 Phosphorus 4.50 mg/dL (2.5-4.5) 04/30/21 04:41 Magnesium 2.10 mg/dL (1.7-2.3) 05/03/21 07:05 Total Bilirubin 0.50 mg/dL (0.1-1.2) 04/30/21 04:41 AST 12 units/L (5-40) 04/30/21 04:41 ALT 7 units/L (7-56) 04/30/21 04:41 Alkaline Phosphatase 171 units/L (35-129) H 04/30/21 04:41 Ammonia 37.0 umol/L (25-60) 04/23/21 10:33 Total Creatine Kinase 83 units/L (30-135) 04/23/21 10:33 Troponin T < 0.010 ng/mL (0.00-0.029) 04/23/21 10:33 C-Reactive Protein 24.30 mg/dL (0.00-1.30) H 04/24/21 18:24 Total Protein 6.1 g/dL (6.3-8.2) L 04/30/21 04:41 Albumin 1.4 g/dL (3.9-5) L 04/30/21 04:41 Albumin/Globulin Ratio 0.3 % 04/30/21 04:41 Procalcitonin 21.10 ng/mL (<0.15) 04/24/21 12:14 TSH 1.400 mlU/mL (0.270-4.200) 04/23/21 10:33 Urine Color Katie (Yellow) 04/27/21 16:16 Urine Turbidity Cloudy (Clear) 04/27/21 16:16 Urine pH 5.0 (5.0-7.0) 04/27/21 16:16 Ur Specific [place] 1.014 (1.003-1.030) 04/27/21 16:16 Urine Protein <15 mg/dl mg/dL (Negative) 04/27/21 16:16 Urine Glucose (UA) >=500 mg/dL (Negative) 04/27/21 16:16 Urine Ketones Neg mg/dL (Negative) 04/27/21 16:16 Urine Blood Neg (Negative) 04/27/21 16:16 Urine Nitrite Neg (Negative) 04/27/21 16:16 Urine Bilirubin Neg (Negative) 04/27/21 16:16 Urine Urobilinogen 2.0 mg/dL (<2.0) 04/27/21 16:16 Ur Leukocyte Esterase Neg (Negative) 04/27/21 16:16 Urine WBC (Auto) 1.0 /HPF (0.0-6.0) 04/27/21 16:16 Urine RBC (Auto) 1.0 /HPF (0.0-6.0) 04/27/21 16:16 U Epithel Cells (Auto) < 1.0 /HPF (0-13.0) 04/24/21 08:40 Urine Bacteria (Auto) 1+ /HPF (Negative) 04/27/21 16:16 Amorphous Crystals Few 04/27/21 16:16 Urine Yeast (Budding) 3+ /HPF 04/27/21 16:16 Vancomycin Trough 38.2 ug/mL (5.0-20.0) H 04/26/21 19:27 Coronavirus (PCR) Negative (Negative) 04/25/21 Unknown Sanchez/IV: Voiding Method Indwelling Catheter Active Medications - Current Medications Current Medications: Generic Name Dose Route Start Last Admin Trade Name Freq PRN Reason Stop Dose Admin Acetaminophen 650 mg 04/23/21 11:54 05/02/21 18:33 Acetaminophen 325 Mg Tab PO 650 mg Q6H PRN Administration Pain MILD(1-3)/Fever >100.5/SMITH Albuterol 2.5 mg 05/02/21 12:56 05/02/21 21:17 Albuterol 2.5 Mg/3 Ml Nebu IH 2.5 mg Q4HRT PRN Administration Shortness Of Breath Lipase/Protease/Amylase 1 each 04/29/21 15:42 Lipase 10,500/Protease 25,000/Amylase 43,750 (Units) Dr Rodriguez FEEDTUBE PRN PRN For Clogged Feeding Tube Dextrose 50 ml 04/26/21 14:00 Dextrose 50% In Water (25gm) 50 Ml Syringe IV Q30MIN PRN Hypoglycemia Protocol Enoxaparin Sodium 40 mg 04/24/21 22:00 05/02/21 21:24 Enoxaparin 40 Mg/0.4 Ml Inj SUB-Q 40 mg BID AMIRA Administration Protocol Famotidine 20 mg 04/29/21 10:00 05/02/21 10:05 Famotidine 20 Mg Tab FEEDTUBE 20 mg DAILY AMIRA Administration Hydromorphone HCl 0.5 mg 04/23/21 11:54 05/02/21 21:04 Hydromorphone 1 Mg/1 Ml Inj IV 0.5 mg Q23H PRN Administration Pain , Severe (7-10) Cefazolin Sodium 2 gm/ Sodium 100 mls @ 200 mls/hr 05/02/21 14:00 05/03/21 05:14 Chloride IV Infused Q6H AMIRA Infusion Protocol Insulin Human Isoph/Insulin Regular 48 unit 05/02/21 09:30 05/02/21 17:43 Insulin Nph/Regular 70/30 Inj SUB-Q 48 unit BIDDIAB AMIRA Administration Insulin Human Lispro 0 unit 04/29/21 12:00 05/03/21 00:00 Insulin Lispro 100 Unit/Ml SUB-Q Not Given Q6HR AMIRA Protocol Oxycodone/Acetaminophen 1 tab 04/23/21 11:54 05/01/21 17:38 Oxycodone /Acetaminophen 5-325mg Tab PO 1 tab Q16H PRN Administration Pain, Moderate (4-6) Senna 17.2 mg 04/25/21 22:00 05/02/21 21:25 Sennosides 8.6 Mg Tab PO 17.2 mg QHS AMIRA Administration Simple Syrup 15 ml 04/29/21 15:42 Simple Syrup 15 Ml FEEDTUBE PRN PRN Hypoglycemia Simple Syrup 30 ml 04/29/21 15:42 Simple Syrup 15 Ml FEEDTUBE PRN PRN Hypoglycemia Sodium Bicarbonate 325 mg 04/29/21 15:42 Sodium Bicarbonate 325 Mg Tab FEEDTUBE PRN PRN For Clogged Feeding Tube Sodium Chloride 10 ml 04/23/21 22:00 05/02/21 21:25 Sodium Chloride 0.9% 10 Ml Flush Syringe IV 10 ml BID AMIRA Administration Sodium Chloride 10 ml 04/23/21 11:54 04/24/21 11:15 Sodium Chloride 0.9% 10 Ml Flush Syringe IV 10 ml PRN PRN Administration LINE FLUSH Nutrition/Malnutrition Assess - Dietary Evaluation Nutrition/Malnutrition Findings: Nutrition Notes Start: 04/26/21 09:53 Freq: Status: Active Protocol: Document 04/29/21 15:44 HOANG (Rec: 04/29/21 15:50 HOANG [id number]) Nutrition Notes Initial or Follow up Reassessment Current Diagnosis Diabetes Other Pertinent Diagnosis DKA, OA Current Diet TF - Glucerna 1.2 at 83ml/hr Labs/Tests Na 146 BUN 41 POC Glu range since last assessment: 115-335 Pertinent Medications Reviewed Height 5 ft 8 in Weight 158.6 kg Mars Body Weight (kg) 63.63 BMI 53.1 Weight Status Morbidly Obese Subjective/Other Information Per RN, pt tolerating TF at goal rate. Percent of energy/protein needs met: 126% energy needs #1 Nutrition Diagnosis Inadequate oral intake Diagnosis Progress(for reassessment Continues documentation) Is patient on ventilator? No Is Patient Ambulatory and/or Out of Bed No REE-([facility]-confined to bed) [phone] Calculation Used for Recommendations 65-70% energy needs Additional Notes Estimated energy needs: 1760- 1896 kcal/day Pro needs up to 2.5g/kg IBW: up to 159g/day Fluid needs 1ml/kcal Nutrition Intervention Nutrition Support: Decrease TF goal rate to 65ml/ hr with 100ml water flush q4h. Kcal 1,872 Protein (gm) 94 Carbohydrates (gm) 179 Fat (gm) 94 Fluid (mL) 1,256 Fiber (gm) 25 Goal #1 TF tolerance Goal #2 TF to meet 65-70% energy and at least 75% pro needs Follow-Up By: 05/03/21 Additional Comments F/U: TF rate decrease, labs
[2021-05-03 09:21] LABS: Basophils # (Auto) 0.1 K/mm3 (0.0-0.1); Basophils % (Auto) 0.6 % (0.0-1.8); Eosinophils # (Auto) 0.1 K/mm3 (0.0-0.4); Eosinophils % (Auto) 0.9 % (0.0-4.3); Hematocrit 22.7 % (30.3-42.9); Hemoglobin 6.8 gm/dl (10.1-14.3); Lymphocytes # (Auto) 1.7 K/mm3 (1.2-5.4); Lymphocytes % (Auto) 11.8 % (13.4-35.0); Mean Corpuscular HGB Conc 30 % (30-34); Mean Corpuscular Volume 80 fl (79-97); Monocytes # (Auto) 0.5 K/mm3 (0.0-0.8); Monocytes % (Auto) 3.4 % (0.0-7.3); Platelet Count 292 K/mm3 (140-440); Red Blood Count 2.82 M/mm3 (3.65-5.03); Red Cell Distribution Width 14.3 % (13.2-15.2)
[2021-05-03] MEDS: INSULIN NPH/REGULAR 70/30 INJ SUB-Q SCH (09:51)
[2021-05-03] MEDS: ENOXAPARIN 40 MG/0.4 ML INJ SUB-Q SCH ×2 (10:43→23:06)
[2021-05-03] MEDS: FAMOTIDINE 20 MG TAB FEEDTUBE SCH (10:44)
[2021-05-03] MEDS: HYDROmorphone 1 MG/1 ML INJ IV PRN (11:17)
--- NOTE | 2021-05-03 11:27 | Progress Note ---
Assessment and Plan Cultures: 04/24/2021 Blood culture: GBS Blood culture 04/26/2021: No growth 04/30/2021 R knee synovial fluid culture: Group B Streptococcus A/P: 51 yo F with DM2, HTN, morbid obesity presented with sepsis #Acute sepsis: secondary to group B streptococcus bacteremia, source is R knee. #Group B streptococcus bacteremia: Reports a history of previous right knee septic arthritis and has been treated with antibiotics at least twice in the past. X-ray shows large joint effusion. TTE without any evidence of valvular vegetations/endocarditis. Arthrocentesis culture also positive. #DM2: tight glycemic control for best outcomes. #Right knee wound/?septic arthritis Recs: -R knee synovial fluid culture positive for Group B Streptococcus, awaiting I&D/washout by orthopedics -continue higher dose Ancef due to her morbid obesity -will need a longer ~6 weeks course of IV abx after surgery due to her history of recurrence / chronicity and possibility of osteomyelitis -post surgery, plan for 6 weeks of IV Ceftriaxone ending 06/14/2021 Holly Leroy MD, FACP, [facility] O: [phone] F: [phone] Subjective Date of service: 05/03/21 Principal diagnosis: HAGMA; DKA; AMS; Obesity; Osteoarthritis; Hypercalcemia Interval history: Febrile yesterday evening, no fever today. Has no complaints. Awaiting surgery, d/w RN. Objective - Exam Narrative Exam: Physical Exam: Constitutional: Alert, cooperative. No acute distress Head, Ears, Nose: Normocephalic, atraumatic. External ears, nose normal Eyes: Conjunctivae/corneas clear. No icterus. No ptosis. Neck: Supple, no meningeal signs Cardiovascular: S1, S2 + Respiratory: Good air entry, clear to auscultation bilaterally GI: Soft, non-tender; bowel sounds normal. No peritoneal signs Musculoskeletal: Right knee with mild swelling and tenderness, superficial wound present Skin: No rash or abscess Hem/Lymphatic: No palpable cervical or supraclavicular nodes. No lymphangitis Psych: Mood ok. Affect normal Neurological: Awake, alert, oriented. No gross abnormality - Constitutional Vitals: Vital Signs Temp Pulse Resp BP Pulse Ox 99.4 F 110 H 22 152/81 97 05/03/21 06:18 05/03/21 06:18 05/03/21 06:18 05/03/21 06:18 05/03/21 06:18 Temperature -Last 24 Hours Temperature 99.4 F Temperature 100.2 F Temperature 101.5 F Temperature 98.1 F - Labs CBC & Chem 7: 05/03/21 07:05 05/03/21 07:05 Labs: Abnormal lab results 05/02/21 05/02/21 05/02/21 Range/Units 11:27 16:52 23:20 WBC (4.5-11.0) K/mm3 RBC (3.65-5.03) M/mm3 Hgb (10.1-14.3) gm/dl Hct (30.3-42.9) % MCH (28-32) pg Lymph % (Auto) (13.4-35.0) % Seg Neutrophils % (40.0-70.0) % Seg Neutrophils # (1.8-7.7) K/mm3 BUN (7-17) mg/dL Glucose (65-100) mg/dL POC Glucose 284 H 170 H 124 H (70-105) mg/dL 05/03/21 05/03/21 05/03/21 Range/Units 06:16 07:05 07:05 WBC 14.3 H (4.5-11.0) K/mm3 RBC 2.82 L (3.65-5.03) M/mm3 Hgb 6.8 L (10.1-14.3) gm/dl Hct 22.7 L (30.3-42.9) % MCH 24 L (28-32) pg Lymph % (Auto) 11.8 L (13.4-35.0) % Seg Neutrophils % 83.3 H (40.0-70.0) % Seg Neutrophils # 11.9 H (1.8-7.7) K/mm3 BUN 39 H (7-17) mg/dL Glucose 163 H (65-100) mg/dL POC Glucose 147 H (70-105) mg/dL
[2021-05-03] MEDS ORDERED: NEOMY 40 MG/POLYMYXIN B 200,000 UNITS/ML (GU) AMPULE IR ONE ×3 (12:14→12:17)
--- NOTE | 2021-05-03 12:26 | Anesthesia Consultation ---
Anesthesia Consult and Med Hx Date of service: 05/03/21 - Airway Anesthetic Teeth Evaluation: Poor (multiple missing, broken teeth) ROM Head & Neck: Adequate Mallampati Class: Class III Intubation Access Assessment: Possibly Difficult - Pre-Operative Health Status ASA Pre-Surgery Classification: ASA3 Proposed Anesthetic Plan: General - Pulmonary Hx Asthma: Yes Hx Respiratory Symptoms: No COPD: No Hx Pneumonia: No - Cardiovascular System Hx Hypertension: Yes Hx Coronary Artery Disease: No Hx Heart Attack/AMI: No Hx Angina: No Hx Percutaneous Transluminal Coronary Angioplasty (PTCA): No Hx Pacemaker: No Hx Internal Defibrillator: No Hx Valvular Heart Disease: No Hx Heart Murmur: No Hx Peripheral Vascular Disease: No - Central Nervous System Hx Seizures: No CVA: No Hx Back Pain: Yes (arthritis with right knee infection) Hx Psychiatric Problems: No (metabolic enchaphelopathy on admission, oriented x3 now) - Gastrointestinal Hx Ulcer: No (has NG tube in place) Hx Gastroesophageal Reflux Disease: No - Endocrine Hx Renal Disease: No Hx End Stage Renal Disease: No Hx Liver Disease: No Hx Insulin Dependent Diabetes: Yes (A1c 7.9) Hx Thyroid Disease: No - Hematic Hx Anemia: Yes - Other Systems Hx Cancer: No Hx Obesity: Yes (BMI 53.2)
[2021-05-03] MEDS: INSULIN LISPRO 100 UNIT/ML SUB-Q SCH ×4 (12:27→22:59)
--- NOTE | 2021-05-03 12:27 | Anesthesia Day of Surgery ---
Anesthesia Day of Surgery - Day of Surgery Patient Examined: Yes Patient H&P Reviewed: Yes Patient is NPO: Yes
[2021-05-03] MEDS ORDERED: HYDROmorphone 1 MG/1 ML INJ ONE (12:31)
[2021-05-03] MEDS ORDERED: propofoL 200 MG/20 ML VIAL IV ONE (12:31)
[2021-05-03] MEDS ORDERED: LIDOCAINE MPF (2%) 20 MG/1 ML VIAL 5 ML ONE (12:33)
--- NOTE | 2021-05-03 15:34 | Progress Note ---
Assessment and Plan Acute metabolic acidosis Diabetic ketoacidosis Acute toxic metabolic encephalopathy-improving Obesity Osteoarthritis Hypercalcemia Continue with airway clearance , chest PT Continue with NGT feeding Needs care home antibiotics per ID Titrate supplemental oxygen to keep SpO2 88-90% PT, increase activity as tolerated Mobility, off loading and frequent turning for pressure ulcer prevention Continue all supportive care Discharge planning - continue accuchecks with glycemic control - target blood glucose 140-180 mg/dL; avoid hypoglycemia - antiinfectives per ID team recommendations (Rocephin) - prn bronchodilators with pulmonary hygiene per RT - avoid nephrotoxins, renally dose all medications - avoid benzodiazepines, reduce the possibility of delirium - prn analgesia per pain score - Maintenance of sleep-wake cycle, avoid delirium - VTE prophylaxis - continue mobility protocols for pressure ulcer prophylaxis - Monitor hemodynamics closely - continue other care per attending / other consultants Subjective Date of service: 05/03/21 Principal diagnosis: HAGMA; DKA; AMS; Obesity; Osteoarthritis; Hypercalcemia Interval history: Patient is seen today for: Acute metabolic acidosis; Diabetic ketoacidosis; Acute toxic metabolic encephalopathy; Obesity; Osteoarthritis; Hypercalcemia Seen and examined at bedside; 24hour events reviewed; nursing and respiratory care staff consulted; no adverse overnight events reported to me; resting peacefully in bed; denies N/V/F/C. Awake and alert, strong cough . On supplemental oxygen via NC, NGT in nares for feeding, s/p arthrocentesis Objective Vital Signs - 12hr 05/03/21 06:18 Temperature 99.4 F Pulse Rate 110 H Respiratory 22 Rate Blood Pressure 152/81 O2 Sat by Pulse 97 Oximetry Constitutional: alert, agitated, appears uncomfortable, other (middle aged obese female with normal work of breathing at rest) Eyes: non-icteric ENT: oropharynx moist Neck: supple, no lymphadenopathy, no JVD Effort: normal Ascultation: Bilateral: clear, diminished breath sounds, rhonchi (and referred upper airway sounds) Percussion: Bilateral: not dull Cardiovascular: regular rate and rhythm, other (S1,S2) Gastrointestinal: hypoactive bowel sounds, soft, non-tender, non-distended Integumentary: rash (perineal) Extremities: no cyanosis, no edema, pulses normal, no ischemia or petechiae Neurologic: normal mental status, non-focal exam, pupils equal and round Psychiatric: mood appropriate, affect normal CBC and BMP: 05/03/21 07:05 05/03/21 07:05 ABG, PT/INR, D-dimer: ABG ABG pH 7.426 pH Units (7.350-7.450) 04/25/21 11:20 ABG pCO2 25.3 mm Hg 04/25/21 11:20 ABG pO2 73.2 mm Hg (80.0-90.0) L 04/25/21 11:20 ABG O2 Saturation 96.9 % (95.0-99.0) 04/25/21 11:20 Abnormal lab findings: Abnormal Labs 04/23/21 04/23/21 04/23/21 10:33 10:33 10:33 WBC RBC Hgb Hct MCV MCH 26 L Plt Count Lymph % (Auto) Seg Neutrophils % Seg Neuts % (Manual) Lymphocytes % (Manual) 7.0 L Nucleated RBC % 2.0 H Seg Neutrophils # Lymphocytes # (Manual) 0.5 L ABG pO2 ABG HCO3 ABG Base Excess ABG Hemoglobin VBG pH 7.180 L* Oxyhemoglobin Sodium 122 L Potassium 3.0 L Chloride 84.8 L Carbon Dioxide 6 L* BUN 49 H Creatinine 1.4 H Glucose 775 H* POC Glucose Hemoglobin A1c Lactic Acid Calcium 12.2 H* Phosphorus Magnesium Alkaline Phosphatase 130 H C-Reactive Protein Total Protein Albumin 2.9 L Vancomycin Trough 04/23/21 04/23/21 04/23/21 10:40 12:44 14:01 WBC RBC Hgb Hct MCV MCH Plt Count Lymph % (Auto) Seg Neutrophils % Seg Neuts % (Manual) Lymphocytes % (Manual) Nucleated RBC % Seg Neutrophils # Lymphocytes # (Manual) ABG pO2 ABG HCO3 ABG Base Excess ABG Hemoglobin VBG pH Oxyhemoglobin Sodium Potassium Chloride Carbon Dioxide BUN Creatinine Glucose POC Glucose > 600 H 550 H Hemoglobin A1c Lactic Acid Calcium Phosphorus 1.50 L Magnesium Alkaline Phosphatase C-Reactive Protein Total Protein Albumin Vancomycin Trough 04/23/21 04/23/21 04/23/21 14:01 14:04 14:56 WBC RBC Hgb Hct MCV MCH Plt Count Lymph % (Auto) Seg Neutrophils % Seg Neuts % (Manual) Lymphocytes % (Manual) Nucleated RBC % Seg Neutrophils # Lymphocytes # (Manual) ABG pO2 ABG HCO3 ABG Base Excess ABG Hemoglobin VBG pH Oxyhemoglobin Sodium 125 L Potassium 3.0 L Chloride 89.2 L Carbon Dioxide 6 L* BUN 45 H Creatinine 1.3 H Glucose 594 H* POC Glucose 518 H 425 H Hemoglobin A1c Lactic Acid Calcium 10.9 H Phosphorus Magnesium Alkaline Phosphatase C-Reactive Protein Total Protein Albumin Vancomycin Trough 04/23/21 04/23/21 04/23/21 15:43 15:48 17:21 WBC RBC Hgb Hct MCV MCH Plt Count Lymph % (Auto) Seg Neutrophils % Seg Neuts % (Manual) Lymphocytes % (Manual) Nucleated RBC % Seg Neutrophils # Lymphocytes # (Manual) ABG pO2 ABG HCO3 ABG Base Excess ABG Hemoglobin VBG pH Oxyhemoglobin Sodium 131 L Potassium 2.9 L* Chloride Carbon Dioxide 8 L* BUN 39 H Creatinine Glucose 434 H POC Glucose 410 H 407 H Hemoglobin A1c Lactic Acid Calcium 10.3 H Phosphorus Magnesium Alkaline Phosphatase C-Reactive Protein Total Protein Albumin Vancomycin Trough 04/23/21 04/23/21 04/23/21 18:07 19:13 19:54 WBC RBC Hgb Hct MCV MCH Plt Count Lymph % (Auto) Seg Neutrophils % Seg Neuts % (Manual) Lymphocytes % (Manual) Nucleated RBC % Seg Neutrophils # Lymphocytes # (Manual) ABG pO2 ABG HCO3 ABG Base Excess ABG Hemoglobin VBG pH Oxyhemoglobin Sodium 131 L Potassium 3.1 L Chloride 95.9 L Carbon Dioxide 7 L* BUN 39 H Creatinine Glucose 391 H POC Glucose 428 H 350 H Hemoglobin A1c Lactic Acid Calcium 11.2 H Phosphorus Magnesium Alkaline Phosphatase C-Reactive Protein Total Protein Albumin Vancomycin Trough 04/23/21 04/23/21 04/23/21 19:54 20:12 20:59 WBC RBC Hgb Hct MCV MCH Plt Count Lymph % (Auto) Seg Neutrophils % Seg Neuts % (Manual) Lymphocytes % (Manual) Nucleated RBC % Seg Neutrophils # Lymphocytes # (Manual) ABG pO2 ABG HCO3 ABG Base Excess ABG Hemoglobin VBG pH Oxyhemoglobin Sodium Potassium Chloride Carbon Dioxide BUN Creatinine Glucose POC Glucose 365 H 286 H Hemoglobin A1c Lactic Acid Calcium Phosphorus 1.10 L D Magnesium Alkaline Phosphatase C-Reactive Protein Total Protein Albumin Vancomycin Trough 04/23/21 04/23/21 04/23/21 22:05 22:23 22:59 WBC RBC Hgb Hct MCV MCH Plt Count Lymph % (Auto) Seg Neutrophils % Seg Neuts % (Manual) Lymphocytes % (Manual) Nucleated RBC % Seg Neutrophils # Lymphocytes # (Manual) ABG pO2 ABG HCO3 ABG Base Excess ABG Hemoglobin VBG pH Oxyhemoglobin Sodium 135 L Potassium 3.2 L Chloride Carbon Dioxide 10 L BUN 35 H Creatinine Glucose 300 H POC Glucose 257 H 238 H Hemoglobin A1c Lactic Acid Calcium 11.6 H Phosphorus Magnesium Alkaline Phosphatase C-Reactive Protein Total Protein Albumin Vancomycin Trough 04/23/21 04/24/21 04/24/21 23:57 00:10 00:56 WBC RBC Hgb Hct MCV MCH Plt Count Lymph % (Auto) Seg Neutrophils % Seg Neuts % (Manual) Lymphocytes % (Manual) Nucleated RBC % Seg Neutrophils # Lymphocytes # (Manual) ABG pO2 ABG HCO3 ABG Base Excess ABG Hemoglobin VBG pH Oxyhemoglobin Sodium Potassium 3.2 L Chloride Carbon Dioxide 13 L BUN 33 H Creatinine Glucose 267 H POC Glucose 223 H 254 H Hemoglobin A1c Lactic Acid Calcium 11.2 H Phosphorus 1.20 L Magnesium Alkaline Phosphatase C-Reactive Protein Total Protein Albumin Vancomycin Trough 04/24/21 04/24/21 04/24/21 01:58 02:58 03:57 WBC RBC Hgb Hct MCV MCH Plt Count Lymph % (Auto) Seg Neutrophils % Seg Neuts % (Manual) Lymphocytes % (Manual) Nucleated RBC % Seg Neutrophils # Lymphocytes # (Manual) ABG pO2 ABG HCO3 ABG Base Excess ABG Hemoglobin VBG pH Oxyhemoglobin Sodium Potassium Chloride Carbon Dioxide BUN Creatinine Glucose POC Glucose 264 H 251 H 200 H Hemoglobin A1c Lactic Acid Calcium Phosphorus Magnesium Alkaline Phosphatase C-Reactive Protein Total Protein Albumin Vancomycin Trough 04/24/21 04/24/21 04/24/21 04:16 04:16 04:16 WBC RBC Hgb Hct MCV MCH 26 L Plt Count Lymph % (Auto) Seg Neutrophils % Seg Neuts % (Manual) Lymphocytes % (Manual) Nucleated RBC % Seg Neutrophils # Lymphocytes # (Manual) ABG pO2 ABG HCO3 ABG Base Excess ABG Hemoglobin VBG pH Oxyhemoglobin Sodium Potassium Chloride 108.0 H Carbon Dioxide 13 L BUN 31 H Creatinine Glucose 243 H POC Glucose Hemoglobin A1c 18.3 H Lactic Acid Calcium 10.9 H Phosphorus 1.80 L D Magnesium Alkaline Phosphatase C-Reactive Protein Total Protein Albumin Vancomycin Trough 04/24/21 04/24/21 04/24/21 04:59 05:53 06:51 WBC RBC Hgb Hct MCV MCH Plt Count Lymph % (Auto) Seg Neutrophils % Seg Neuts % (Manual) Lymphocytes % (Manual) Nucleated RBC % Seg Neutrophils # Lymphocytes # (Manual) ABG pO2 ABG HCO3 ABG Base Excess ABG Hemoglobin VBG pH Oxyhemoglobin Sodium Potassium Chloride Carbon Dioxide BUN Creatinine Glucose POC Glucose 208 H 213 H 161 H Hemoglobin A1c Lactic Acid Calcium Phosphorus Magnesium Alkaline Phosphatase C-Reactive Protein Total Protein Albumin Vancomycin Trough 04/24/21 04/24/21 04/24/21 07:58 09:21 10:06 WBC RBC Hgb Hct MCV MCH Plt Count Lymph % (Auto) Seg Neutrophils % Seg Neuts % (Manual) Lymphocytes % (Manual) Nucleated RBC % Seg Neutrophils # Lymphocytes # (Manual) ABG pO2 ABG HCO3 ABG Base Excess ABG Hemoglobin VBG pH Oxyhemoglobin Sodium Potassium Chloride Carbon Dioxide BUN Creatinine Glucose POC Glucose 149 H 178 H 164 H Hemoglobin A1c Lactic Acid Calcium Phosphorus Magnesium Alkaline Phosphatase C-Reactive Protein Total Protein Albumin Vancomycin Trough 04/24/21 04/24/21 04/24/21 11:03 12:07 12:14 WBC RBC Hgb Hct MCV MCH Plt Count Lymph % (Auto) Seg Neutrophils % Seg Neuts % (Manual) Lymphocytes % (Manual) Nucleated RBC % Seg Neutrophils # Lymphocytes # (Manual) ABG pO2 ABG HCO3 ABG Base Excess ABG Hemoglobin VBG pH Oxyhemoglobin Sodium Potassium 3.2 L Chloride 108.7 H Carbon Dioxide 16 L BUN 24 H Creatinine Glucose 160 H POC Glucose 157 H 142 H Hemoglobin A1c Lactic Acid Calcium 10.5 H Phosphorus 0.70 L* D Magnesium Alkaline Phosphatase C-Reactive Protein Total Protein Albumin Vancomycin Trough 04/24/21 04/24/21 04/24/21 12:14 13:02 14:00 WBC RBC Hgb Hct MCV MCH Plt Count Lymph % (Auto) Seg Neutrophils % Seg Neuts % (Manual) Lymphocytes % (Manual) Nucleated RBC % Seg Neutrophils # Lymphocytes # (Manual) ABG pO2 ABG HCO3 ABG Base Excess ABG Hemoglobin VBG pH Oxyhemoglobin Sodium Potassium Chloride Carbon Dioxide BUN Creatinine Glucose POC Glucose 138 H 150 H Hemoglobin A1c Lactic Acid 2.50 H* Calcium Phosphorus Magnesium Alkaline Phosphatase C-Reactive Protein Total Protein Albumin Vancomycin Trough 04/24/21 04/24/21 04/24/21 15:14 16:07 17:11 WBC RBC Hgb Hct MCV MCH Plt Count Lymph % (Auto) Seg Neutrophils % Seg Neuts % (Manual) Lymphocytes % (Manual) Nucleated RBC % Seg Neutrophils # Lymphocytes # (Manual) ABG pO2 ABG HCO3 ABG Base Excess ABG Hemoglobin VBG pH Oxyhemoglobin Sodium Potassium Chloride Carbon Dioxide BUN Creatinine Glucose POC Glucose 145 H 148 H 156 H Hemoglobin A1c Lactic Acid Calcium Phosphorus Magnesium Alkaline Phosphatase C-Reactive Protein Total Protein Albumin Vancomycin Trough 04/24/21 04/24/21 04/24/21 18:12 18:24 19:55 WBC RBC Hgb Hct MCV MCH Plt Count Lymph % (Auto) Seg Neutrophils % Seg Neuts % (Manual) Lymphocytes % (Manual) Nucleated RBC % Seg Neutrophils # Lymphocytes # (Manual) ABG pO2 ABG HCO3 ABG Base Excess ABG Hemoglobin VBG pH Oxyhemoglobin Sodium Potassium Chloride 109.2 H Carbon Dioxide 15 L BUN 22 H Creatinine Glucose 159 H POC Glucose 153 H 176 H Hemoglobin A1c Lactic Acid Calcium Phosphorus 1.80 L D Magnesium Alkaline Phosphatase C-Reactive Protein 24.30 H Total Protein Albumin Vancomycin Trough 04/24/21 04/24/21 04/24/21 20:55 22:04 23:02 WBC RBC Hgb Hct MCV MCH Plt Count Lymph % (Auto) Seg Neutrophils % Seg Neuts % (Manual) Lymphocytes % (Manual) Nucleated RBC % Seg Neutrophils # Lymphocytes # (Manual) ABG pO2 ABG HCO3 ABG Base Excess ABG Hemoglobin VBG pH Oxyhemoglobin Sodium Potassium Chloride Carbon Dioxide BUN Creatinine Glucose POC Glucose 146 H 169 H Hemoglobin A1c Lactic Acid 3.10 H* Calcium Phosphorus Magnesium Alkaline Phosphatase C-Reactive Protein Total Protein Albumin Vancomycin Trough 04/24/21 04/25/21 04/25/21 23:13 00:05 01:28 WBC RBC Hgb Hct MCV MCH Plt Count Lymph % (Auto) Seg Neutrophils % Seg Neuts % (Manual) Lymphocytes % (Manual) Nucleated RBC % Seg Neutrophils # Lymphocytes # (Manual) ABG pO2 ABG HCO3 ABG Base Excess ABG Hemoglobin VBG pH Oxyhemoglobin Sodium Potassium Chloride Carbon Dioxide BUN Creatinine Glucose POC Glucose 144 H 150 H 142 H Hemoglobin A1c Lactic Acid Calcium Phosphorus Magnesium Alkaline Phosphatase C-Reactive Protein Total Protein Albumin Vancomycin Trough 04/25/21 04/25/21 04/25/21 02:03 03:07 04:17 WBC RBC Hgb Hct MCV MCH Plt Count Lymph % (Auto) Seg Neutrophils % Seg Neuts % (Manual) Lymphocytes % (Manual) Nucleated RBC % Seg Neutrophils # Lymphocytes # (Manual) ABG pO2 ABG HCO3 ABG Base Excess ABG Hemoglobin VBG pH Oxyhemoglobin Sodium Potassium Chloride Carbon Dioxide BUN Creatinine Glucose POC Glucose 148 H 161 H 158 H Hemoglobin A1c Lactic Acid Calcium Phosphorus Magnesium Alkaline Phosphatase C-Reactive Protein Total Protein Albumin Vancomycin Trough 04/25/21 04/25/21 04/25/21 05:48 06:52 07:58 WBC RBC Hgb Hct MCV MCH Plt Count Lymph % (Auto) Seg Neutrophils % Seg Neuts % (Manual) Lymphocytes % (Manual) Nucleated RBC % Seg Neutrophils # Lymphocytes # (Manual) ABG pO2 ABG HCO3 ABG Base Excess ABG Hemoglobin VBG pH Oxyhemoglobin Sodium Potassium Chloride Carbon Dioxide BUN Creatinine Glucose POC Glucose 136 H 137 H 143 H Hemoglobin A1c Lactic Acid Calcium Phosphorus Magnesium Alkaline Phosphatase C-Reactive Protein Total Protein Albumin Vancomycin Trough 04/25/21 04/25/21 04/25/21 08:10 08:10 08:10 WBC RBC Hgb 9.5 L Hct 28.8 L MCV MCH 26 L Plt Count Lymph % (Auto) Seg Neutrophils % Seg Neuts % (Manual) 33.0 L Lymphocytes % (Manual) Nucleated RBC % Seg Neutrophils # Lymphocytes # (Manual) 1.1 L ABG pO2 ABG HCO3 ABG Base Excess ABG Hemoglobin VBG pH Oxyhemoglobin Sodium Potassium 3.3 L Chloride 109.0 H Carbon Dioxide 16 L BUN 23 H Creatinine Glucose 151 H POC Glucose Hemoglobin A1c Lactic Acid 2.10 H* Calcium Phosphorus 2.20 L D Magnesium 1.60 L Alkaline Phosphatase C-Reactive Protein Total Protein Albumin Vancomycin Trough 04/25/21 04/25/21 04/25/21 08:53 09:59 11:20 WBC RBC Hgb Hct MCV MCH Plt Count Lymph % (Auto) Seg Neutrophils % Seg Neuts % (Manual) Lymphocytes % (Manual) Nucleated RBC % Seg Neutrophils # Lymphocytes # (Manual) ABG pO2 ABG HCO3 ABG Base Excess ABG Hemoglobin VBG pH Oxyhemoglobin Sodium Potassium Chloride Carbon Dioxide BUN Creatinine Glucose POC Glucose 132 H 141 H 141 H Hemoglobin A1c Lactic Acid Calcium Phosphorus Magnesium Alkaline Phosphatase C-Reactive Protein Total Protein Albumin Vancomycin Trough 04/25/21 04/25/21 04/25/21 11:20 12:04 12:26 WBC RBC Hgb Hct MCV MCH Plt Count Lymph % (Auto) Seg Neutrophils % Seg Neuts % (Manual) Lymphocytes % (Manual) Nucleated RBC % Seg Neutrophils # Lymphocytes # (Manual) ABG pO2 73.2 L ABG HCO3 16.2 L ABG Base Excess -7.1 L ABG Hemoglobin 8.7 L VBG pH Oxyhemoglobin 94.8 L Sodium Potassium 3.4 L Chloride 109.5 H Carbon Dioxide 14 L BUN 21 H Creatinine Glucose 155 H POC Glucose 129 H Hemoglobin A1c Lactic Acid Calcium Phosphorus 1.90 L Magnesium 1.60 L Alkaline Phosphatase C-Reactive Protein Total Protein Albumin Vancomycin Trough 04/25/21 04/25/21 04/25/21 13:04 13:58 15:09 WBC RBC Hgb Hct MCV MCH Plt Count Lymph % (Auto) Seg Neutrophils % Seg Neuts % (Manual) Lymphocytes % (Manual) Nucleated RBC % Seg Neutrophils # Lymphocytes # (Manual) ABG pO2 ABG HCO3 ABG Base Excess ABG Hemoglobin VBG pH Oxyhemoglobin Sodium Potassium Chloride Carbon Dioxide BUN Creatinine Glucose POC Glucose 135 H 140 H 134 H Hemoglobin A1c Lactic Acid Calcium Phosphorus Magnesium Alkaline Phosphatase C-Reactive Protein Total Protein Albumin Vancomycin Trough 04/25/21 04/25/21 04/25/21 16:00 18:56 18:58 WBC RBC Hgb Hct MCV MCH Plt Count Lymph % (Auto) Seg Neutrophils % Seg Neuts % (Manual) Lymphocytes % (Manual) Nucleated RBC % Seg Neutrophils # Lymphocytes # (Manual) ABG pO2 ABG HCO3 ABG Base Excess ABG Hemoglobin VBG pH Oxyhemoglobin Sodium Potassium Chloride Carbon Dioxide BUN Creatinine Glucose POC Glucose 135 H 170 H Hemoglobin A1c Lactic Acid 2.10 H* Calcium Phosphorus Magnesium Alkaline Phosphatase C-Reactive Protein Total Protein Albumin Vancomycin Trough 04/25/21 04/25/21 04/25/21 18:58 19:52 20:53 WBC RBC Hgb Hct MCV MCH Plt Count Lymph % (Auto) Seg Neutrophils % Seg Neuts % (Manual) Lymphocytes % (Manual) Nucleated RBC % Seg Neutrophils # Lymphocytes # (Manual) ABG pO2 ABG HCO3 ABG Base Excess ABG Hemoglobin VBG pH Oxyhemoglobin Sodium Potassium Chloride 110.1 H Carbon Dioxide 13 L BUN 23 H Creatinine Glucose 206 H POC Glucose 162 H 171 H Hemoglobin A1c Lactic Acid Calcium Phosphorus Magnesium 2.40 H Alkaline Phosphatase C-Reactive Protein Total Protein Albumin Vancomycin Trough 04/25/21 04/25/21 04/26/21 21:54 22:53 00:03 WBC RBC Hgb Hct MCV MCH Plt Count Lymph % (Auto) Seg Neutrophils % Seg Neuts % (Manual) Lymphocytes % (Manual) Nucleated RBC % Seg Neutrophils # Lymphocytes # (Manual) ABG pO2 ABG HCO3 ABG Base Excess ABG Hemoglobin VBG pH Oxyhemoglobin Sodium Potassium Chloride Carbon Dioxide BUN Creatinine Glucose POC Glucose 139 H 140 H 129 H Hemoglobin A1c Lactic Acid Calcium Phosphorus Magnesium Alkaline Phosphatase C-Reactive Protein Total Protein Albumin Vancomycin Trough 04/26/21 04/26/21 04/26/21 00:38 01:00 01:56 WBC RBC Hgb Hct MCV MCH Plt Count Lymph % (Auto) Seg Neutrophils % Seg Neuts % (Manual) Lymphocytes % (Manual) Nucleated RBC % Seg Neutrophils # Lymphocytes # (Manual) ABG pO2 ABG HCO3 ABG Base Excess ABG Hemoglobin VBG pH Oxyhemoglobin Sodium Potassium Chloride 112.6 H Carbon Dioxide 14 L BUN 22 H Creatinine Glucose 149 H POC Glucose 126 H 137 H Hemoglobin A1c Lactic Acid Calcium Phosphorus Magnesium 2.40 H Alkaline Phosphatase C-Reactive Protein Total Protein Albumin Vancomycin Trough 04/26/21 04/26/21 04/26/21 02:54 04:04 05:02 WBC RBC 3.44 L Hgb 8.9 L Hct 26.9 L MCV 78 L MCH 26 L Plt Count Lymph % (Auto) Seg Neutrophils % Seg Neuts % (Manual) Lymphocytes % (Manual) Nucleated RBC % Seg Neutrophils # Lymphocytes # (Manual) ABG pO2 ABG HCO3 ABG Base Excess ABG Hemoglobin VBG pH Oxyhemoglobin Sodium Potassium Chloride Carbon Dioxide BUN Creatinine Glucose POC Glucose 132 H 130 H Hemoglobin A1c Lactic Acid Calcium Phosphorus Magnesium Alkaline Phosphatase C-Reactive Protein Total Protein Albumin Vancomycin Trough 04/26/21 04/26/21 04/26/21 05:02 05:03 06:06 WBC RBC Hgb Hct MCV MCH Plt Count Lymph % (Auto) Seg Neutrophils % Seg Neuts % (Manual) Lymphocytes % (Manual) Nucleated RBC % Seg Neutrophils # Lymphocytes # (Manual) ABG pO2 ABG HCO3 ABG Base Excess ABG Hemoglobin VBG pH Oxyhemoglobin Sodium Potassium Chloride 114.8 H Carbon Dioxide 14 L BUN 22 H Creatinine Glucose 129 H POC Glucose 115 H 129 H Hemoglobin A1c Lactic Acid Calcium Phosphorus Magnesium Alkaline Phosphatase C-Reactive Protein Total Protein Albumin Vancomycin Trough 04/26/21 04/26/21 04/26/21 06:53 07:58 09:09 WBC RBC Hgb Hct MCV MCH Plt Count Lymph % (Auto) Seg Neutrophils % Seg Neuts % (Manual) Lymphocytes % (Manual) Nucleated RBC % Seg Neutrophils # Lymphocytes # (Manual) ABG pO2 ABG HCO3 ABG Base Excess ABG Hemoglobin VBG pH Oxyhemoglobin Sodium Potassium Chloride Carbon Dioxide BUN Creatinine Glucose POC Glucose 121 H 124 H 125 H Hemoglobin A1c Lactic Acid Calcium Phosphorus Magnesium Alkaline Phosphatase C-Reactive Protein Total Protein Albumin Vancomycin Trough 04/26/21 04/26/21 04/26/21 10:05 10:52 12:00 WBC RBC Hgb Hct MCV MCH Plt Count Lymph % (Auto) Seg Neutrophils % Seg Neuts % (Manual) Lymphocytes % (Manual) Nucleated RBC % Seg Neutrophils # Lymphocytes # (Manual) ABG pO2 ABG HCO3 ABG Base Excess ABG Hemoglobin VBG pH Oxyhemoglobin Sodium Potassium Chloride Carbon Dioxide BUN Creatinine Glucose POC Glucose 131 H 129 H 126 H Hemoglobin A1c Lactic Acid Calcium Phosphorus Magnesium Alkaline Phosphatase C-Reactive Protein Total Protein Albumin Vancomycin Trough 04/26/21 04/26/21 04/26/21 13:17 14:06 14:11 WBC RBC Hgb Hct MCV MCH Plt Count Lymph % (Auto) Seg Neutrophils % Seg Neuts % (Manual) Lymphocytes % (Manual) Nucleated RBC % Seg Neutrophils # Lymphocytes # (Manual) ABG pO2 ABG HCO3 ABG Base Excess ABG Hemoglobin VBG pH Oxyhemoglobin Sodium Potassium 5.3 H D Chloride 112.2 H Carbon Dioxide 14 L BUN 22 H Creatinine Glucose 116 H POC Glucose 130 H 132 H Hemoglobin A1c Lactic Acid Calcium Phosphorus Magnesium 2.40 H Alkaline Phosphatase C-Reactive Protein Total Protein Albumin Vancomycin Trough 04/26/21 04/26/21 04/26/21 15:07 15:20 16:05 WBC RBC Hgb Hct MCV MCH Plt Count Lymph % (Auto) Seg Neutrophils % Seg Neuts % (Manual) Lymphocytes % (Manual) Nucleated RBC % Seg Neutrophils # Lymphocytes # (Manual) ABG pO2 ABG HCO3 ABG Base Excess ABG Hemoglobin VBG pH Oxyhemoglobin Sodium Potassium Chloride 112.4 H Carbon Dioxide 13 L BUN 22 H Creatinine Glucose 143 H POC Glucose 130 H 156 H Hemoglobin A1c Lactic Acid Calcium Phosphorus Magnesium Alkaline Phosphatase C-Reactive Protein Total Protein Albumin Vancomycin Trough 04/26/21 04/26/21 04/27/21 17:55 19:27 00:02 WBC RBC Hgb Hct MCV MCH Plt Count Lymph % (Auto) Seg Neutrophils % Seg Neuts % (Manual) Lymphocytes % (Manual) Nucleated RBC % Seg Neutrophils # Lymphocytes # (Manual) ABG pO2 ABG HCO3 ABG Base Excess ABG Hemoglobin VBG pH Oxyhemoglobin Sodium Potassium Chloride Carbon Dioxide BUN Creatinine Glucose POC Glucose 194 H 261 H Hemoglobin A1c Lactic Acid Calcium Phosphorus Magnesium Alkaline Phosphatase C-Reactive Protein Total Protein Albumin Vancomycin Trough 38.2 H 04/27/21 04/27/21 04/27/21 04:03 04:03 05:33 WBC RBC 3.20 L Hgb 8.1 L Hct 25.1 L MCV 78 L MCH 25 L Plt Count Lymph % (Auto) Seg Neutrophils % Seg Neuts % (Manual) Lymphocytes % (Manual) Nucleated RBC % Seg Neutrophils # Lymphocytes # (Manual) ABG pO2 ABG HCO3 ABG Base Excess ABG Hemoglobin VBG pH Oxyhemoglobin Sodium Potassium Chloride 112.4 H Carbon Dioxide 12 L BUN 30 H Creatinine Glucose 330 H POC Glucose 311 H Hemoglobin A1c Lactic Acid Calcium Phosphorus Magnesium Alkaline Phosphatase C-Reactive Protein Total Protein Albumin Vancomycin Trough 04/27/21 04/27/21 04/27/21 09:51 13:15 16:43 WBC RBC Hgb Hct MCV MCH Plt Count Lymph % (Auto) Seg Neutrophils % Seg Neuts % (Manual) Lymphocytes % (Manual) Nucleated RBC % Seg Neutrophils # Lymphocytes # (Manual) ABG pO2 ABG HCO3 ABG Base Excess ABG Hemoglobin VBG pH Oxyhemoglobin Sodium Potassium Chloride Carbon Dioxide BUN Creatinine Glucose POC Glucose 335 H 291 H 218 H Hemoglobin A1c Lactic Acid Calcium Phosphorus Magnesium Alkaline Phosphatase C-Reactive Protein Total Protein Albumin Vancomycin Trough 04/27/21 04/27/21 04/28/21 18:10 22:08 02:15 WBC RBC Hgb Hct MCV MCH Plt Count Lymph % (Auto) Seg Neutrophils % Seg Neuts % (Manual) Lymphocytes % (Manual) Nucleated RBC % Seg Neutrophils # Lymphocytes # (Manual) ABG pO2 ABG HCO3 ABG Base Excess ABG Hemoglobin VBG pH Oxyhemoglobin Sodium Potassium Chloride Carbon Dioxide BUN Creatinine Glucose POC Glucose 177 H 136 H 152 H Hemoglobin A1c Lactic Acid Calcium Phosphorus Magnesium Alkaline Phosphatase C-Reactive Protein Total Protein Albumin Vancomycin Trough 04/28/21 04/28/21 04/28/21 04:41 04:41 06:03 WBC RBC 3.50 L Hgb 8.9 L Hct 27.3 L MCV 78 L MCH 26 L Plt Count Lymph % (Auto) Seg Neutrophils % Seg Neuts % (Manual) Lymphocytes % (Manual) Nucleated RBC % Seg Neutrophils # Lymphocytes # (Manual) ABG pO2 ABG HCO3 ABG Base Excess ABG Hemoglobin VBG pH Oxyhemoglobin Sodium Potassium Chloride 113.5 H Carbon Dioxide 16 L BUN 37 H Creatinine Glucose 167 H POC Glucose 174 H Hemoglobin A1c Lactic Acid Calcium Phosphorus Magnesium Alkaline Phosphatase C-Reactive Protein Total Protein Albumin Vancomycin Trough 04/28/21 04/28/21 04/28/21 08:42 11:34 17:15 WBC RBC Hgb Hct MCV MCH Plt Count Lymph % (Auto) Seg Neutrophils % Seg Neuts % (Manual) Lymphocytes % (Manual) Nucleated RBC % Seg Neutrophils # Lymphocytes # (Manual) ABG pO2 ABG HCO3 ABG Base Excess ABG Hemoglobin VBG pH Oxyhemoglobin Sodium Potassium Chloride Carbon Dioxide BUN Creatinine Glucose POC Glucose 212 H 228 H 236 H Hemoglobin A1c Lactic Acid Calcium Phosphorus Magnesium Alkaline Phosphatase C-Reactive Protein Total Protein Albumin Vancomycin Trough 04/28/21 04/29/21 04/29/21 21:58 01:55 04:00 WBC 11.7 H RBC 3.35 L Hgb 8.5 L Hct 26.4 L MCV MCH 25 L Plt Count Lymph % (Auto) Seg Neutrophils % Seg Neuts % (Manual) Lymphocytes % (Manual) Nucleated RBC % Seg Neutrophils # Lymphocytes # (Manual) ABG pO2 ABG HCO3 ABG Base Excess ABG Hemoglobin VBG pH Oxyhemoglobin Sodium Potassium Chloride Carbon Dioxide BUN Creatinine Glucose POC Glucose 208 H 137 H Hemoglobin A1c Lactic Acid Calcium Phosphorus Magnesium Alkaline Phosphatase C-Reactive Protein Total Protein Albumin Vancomycin Trough 04/29/21 04/29/21 04/29/21 04:00 05:16 11:02 WBC RBC Hgb Hct MCV MCH Plt Count Lymph % (Auto) Seg Neutrophils % Seg Neuts % (Manual) Lymphocytes % (Manual) Nucleated RBC % Seg Neutrophils # Lymphocytes # (Manual) ABG pO2 ABG HCO3 ABG Base Excess ABG Hemoglobin VBG pH Oxyhemoglobin Sodium 146 H Potassium Chloride 112.4 H Carbon Dioxide BUN 41 H Creatinine Glucose 115 H POC Glucose 114 H 144 H Hemoglobin A1c Lactic Acid Calcium Phosphorus Magnesium Alkaline Phosphatase C-Reactive Protein Total Protein Albumin Vancomycin Trough 04/30/21 04/30/21 04/30/21 00:23 04:41 04:41 WBC 14.4 H RBC 3.12 L Hgb 7.8 L Hct 24.7 L MCV MCH 25 L Plt Count 138 L Lymph % (Auto) Seg Neutrophils % Seg Neuts % (Manual) Lymphocytes % (Manual) Nucleated RBC % Seg Neutrophils # Lymphocytes # (Manual) ABG pO2 ABG HCO3 ABG Base Excess ABG Hemoglobin VBG pH Oxyhemoglobin Sodium Potassium Chloride 108.0 H Carbon Dioxide BUN 42 H Creatinine Glucose 215 H POC Glucose 126 H Hemoglobin A1c Lactic Acid Calcium Phosphorus Magnesium Alkaline Phosphatase 171 H C-Reactive Protein Total Protein 6.1 L Albumin 1.4 L Vancomycin Trough 04/30/21 04/30/21 04/30/21 05:22 11:55 17:36 WBC RBC Hgb Hct MCV MCH Plt Count Lymph % (Auto) Seg Neutrophils % Seg Neuts % (Manual) Lymphocytes % (Manual) Nucleated RBC % Seg Neutrophils # Lymphocytes # (Manual) ABG pO2 ABG HCO3 ABG Base Excess ABG Hemoglobin VBG pH Oxyhemoglobin Sodium Potassium Chloride Carbon Dioxide BUN Creatinine Glucose POC Glucose 196 H 224 H 196 H Hemoglobin A1c Lactic Acid Calcium Phosphorus Magnesium Alkaline Phosphatase C-Reactive Protein Total Protein Albumin Vancomycin Trough 05/01/21 05/01/21 05/01/21 04:01 05:37 05:37 WBC 16.9 H RBC 2.97 L Hgb 7.4 L Hct 23.1 L MCV 78 L MCH 25 L Plt Count Lymph % (Auto) Seg Neutrophils % Seg Neuts % (Manual) Lymphocytes % (Manual) Nucleated RBC % Seg Neutrophils # Lymphocytes # (Manual) ABG pO2 ABG HCO3 ABG Base Excess ABG Hemoglobin VBG pH Oxyhemoglobin Sodium Potassium Chloride 108.4 H Carbon Dioxide BUN 41 H Creatinine Glucose 124 H POC Glucose 122 H Hemoglobin A1c Lactic Acid Calcium 8.0 L Phosphorus Magnesium Alkaline Phosphatase C-Reactive Protein Total Protein Albumin Vancomycin Trough 05/01/21 05/01/21 05/01/21 06:27 13:45 16:40 WBC RBC Hgb Hct MCV MCH Plt Count Lymph % (Auto) Seg Neutrophils % Seg Neuts % (Manual) Lymphocytes % (Manual) Nucleated RBC % Seg Neutrophils # Lymphocytes # (Manual) ABG pO2 ABG HCO3 ABG Base Excess ABG Hemoglobin VBG pH Oxyhemoglobin Sodium Potassium Chloride Carbon Dioxide BUN Creatinine Glucose POC Glucose 126 H 231 H 266 H Hemoglobin A1c Lactic Acid Calcium Phosphorus Magnesium Alkaline Phosphatase C-Reactive Protein Total Protein Albumin Vancomycin Trough 05/01/21 05/02/21 05/02/21 23:16 05:43 11:27 WBC RBC Hgb Hct MCV MCH Plt Count Lymph % (Auto) Seg Neutrophils % Seg Neuts % (Manual) Lymphocytes % (Manual) Nucleated RBC % Seg Neutrophils # Lymphocytes # (Manual) ABG pO2 ABG HCO3 ABG Base Excess ABG Hemoglobin VBG pH Oxyhemoglobin Sodium Potassium Chloride Carbon Dioxide BUN Creatinine Glucose POC Glucose 192 H 236 H 284 H Hemoglobin A1c Lactic Acid Calcium Phosphorus Magnesium Alkaline Phosphatase C-Reactive Protein Total Protein Albumin Vancomycin Trough 05/02/21 05/02/21 05/03/21 16:52 23:20 06:16 WBC RBC Hgb Hct MCV MCH Plt Count Lymph % (Auto) Seg Neutrophils % Seg Neuts % (Manual) Lymphocytes % (Manual) Nucleated RBC % Seg Neutrophils # Lymphocytes # (Manual) ABG pO2 ABG HCO3 ABG Base Excess ABG Hemoglobin VBG pH Oxyhemoglobin Sodium Potassium Chloride Carbon Dioxide BUN Creatinine Glucose POC Glucose 170 H 124 H 147 H Hemoglobin A1c Lactic Acid Calcium Phosphorus Magnesium Alkaline Phosphatase C-Reactive Protein Total Protein Albumin Vancomycin Trough 05/03/21 05/03/21 05/03/21 07:05 07:05 11:46 WBC 14.3 H RBC 2.82 L Hgb 6.8 L Hct 22.7 L MCV MCH 24 L Plt Count Lymph % (Auto) 11.8 L Seg Neutrophils % 83.3 H Seg Neuts % (Manual) Lymphocytes % (Manual) Nucleated RBC % Seg Neutrophils # 11.9 H Lymphocytes # (Manual) ABG pO2 ABG HCO3 ABG Base Excess ABG Hemoglobin VBG pH Oxyhemoglobin Sodium Potassium Chloride Carbon Dioxide BUN 39 H Creatinine Glucose 163 H POC Glucose 134 H Hemoglobin A1c Lactic Acid Calcium Phosphorus Magnesium Alkaline Phosphatase C-Reactive Protein Total Protein Albumin Vancomycin Trough Allied health notes reviewed: nursing
[2021-05-03] MEDS ORDERED: EPINEPHrine/PF 1 MG/1 ML INJ ONE (16:58)
[2021-05-03] MEDS ORDERED: BUPIVACAINE/PF (0.5%) 5 MG/1 ML 10 ML VIAL INFILTRATI ONE (17:15)
[2021-05-03] MEDS ORDERED: methylPREDNISolone ACETATE 40 MG/1 ML INJ ONE (17:16)
[2021-05-03] MEDS ORDERED: ePHEDrine SULFATE 50 MG/1 ML INJ ONE (17:23)
[2021-05-03] MEDS ORDERED: SODIUM CHLORIDE 0.9% 500 ML 500 ML IV SCH (17:30)
[2021-05-03] MEDS ORDERED: ONDANSETRON 4 MG/2 ML INJ ONE (18:16)
[2021-05-03] MEDS ORDERED: SUCCINYLCHOLINE CHLORIDE 200 MG/10 ML INJ MDV ONE (18:16)
[2021-05-03] MEDS ORDERED: dexAMETHasone 20 MG/5 ML VIAL ONE (18:16)
[2021-05-03] MEDS ORDERED: PHENYLEPHRINE/NS 1,000 MCG/10 ML SYRINGE (OR USE) IV ONE (18:16)
[2021-05-03] MEDS ORDERED: GLYCOPYRROLATE 0.4 MG/2 ML INJ ONE (18:16)
[2021-05-03] MEDS ORDERED: SUGAMMADEX SODIUM 200 MG/2 ML VIAL IV ONE (18:52)
--- NOTE | 2021-05-03 18:58 | Procedure Note ---
Date of procedure: 05/03/21 Pre-op diagnosis: septic right knee Post-op diagnosis: same Procedure: Incision and drainage followed by arthroscopic exam right knee Procedure Patient was brought to the OR placed on the OR table in supine position following induction intubation by anesthesia the patient's right lower extremity was then prepped and draped in the usual sterile manner. A timeout procedure was done to identify the patient and the correct operative site. 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 She was taken to postanesthesia recovery in a stable condition Anesthesia: GETA Surgeon: VINNY LACY Estimated blood loss: 50-100ml Pathology: list (Fluid and tissue were sent to pathology and microbiology) Specimen disposition: to lab Condition: stable Disposition: PACU
[2021-05-03] MEDS ORDERED: KETOROLAC 30 MG/1 ML INJ IV PRN (18:59)
[2021-05-03] MEDS ORDERED: MORPHINE 4 MG/1 ML INJ IV PRN (18:59)
[2021-05-03] MEDS ORDERED: SODIUM CHLORIDE 0.9% IRRIG SOLN 2000 ML IR ONE (19:33)
[2021-05-03] MEDS: MORPHINE 2 MG/1 ML INJ IV PRN (23:04)
[2021-05-03] MEDS: SENNOSIDES 8.6 MG TAB PO SCH (23:06)
[2021-05-04] MEDS: FREE WATER PO SCH ×5 (10:11→21:32)
[2021-05-04] MEDS: ENOXAPARIN 40 MG/0.4 ML INJ SUB-Q SCH ×2 (10:31→21:11)
[2021-05-04] MEDS: INSULIN LISPRO 100 UNIT/ML SUB-Q SCH ×3 (10:32→18:35)
[2021-05-04] MEDS: FAMOTIDINE 20 MG TAB FEEDTUBE SCH (10:34)
[2021-05-04] MEDS: INSULIN NPH/REGULAR 70/30 INJ SUB-Q SCH ×2 (11:14→18:35)
--- NOTE | 2021-05-04 15:10 | Progress Note ---
Assessment and Plan Assessment and plan: This is a 51-year-old female with DM, noncompliance, obesity, arthritis and right knee surgery admitted for DKA Continue tube feeding, failed swallow evaluation, high risk for aspiration --Septic arthritis; knee; Ortho is planning knee/synovial debridement tomorrow N.p.o. from midnight, continue current antibiotics per ID -- Sepsis, group B Streptococcus bacteremia, h/o right septic arthritis -Infectious disease consulted, appreciate recommendations -ABX therapy per ID: Ceftriaxone 2 g every 24 hours -Right knee x-ray shows large joint effusion s/p arthrocentesis Positive synovial fluid cultures, ID recommended total 6 weeks of Rocephin --Acute metabolic encephalopathy (improved significantly) Patient is more alert and awake, supportive care -Echocardiogram shows mildly dilated right heart chamber, mild to moderate TR, moderate pulmonary hypertension, RVSP 50-55, LVEF 45-50 --Respiratory: Acute hypoxic respiratory failure Nasal cannula oxygen, intermittent BiPAP Home O2 evaluation --Oropharyngeal dysphagia; On tube feeding, Speech therapy following start oral nutrition when speech therapist clears --Severe protein calorie malnutrition --Hypoalbuminemia, albumin 1.7 Dietitian/business information analyst following Continue tube feeding, nutrition supplements Supportive care -- Hypernatremia (resolved) Closely monitor electrolytes --Leukocytosis/trending down Secondary to sepsis, continue antibiotics and supportive care Closely monitor --S/p DKA, h/o uncontrolled DM/present on admission -Hemoglobin A1c 18.3 Blood sugars moderate control -Avoid hypoglycemia Accu-Chek sliding scale coverage tube feeding Glucerna --DVT prophylaxis Subcu Lovenox --Full CODE STATUS Will closely monitor the patient and adjust the management as needed Plan of care reviewed with the patient and her nurse Vehicle Washer recommendations noted and appreciated History Interval history: This is a 51-year-old female with DM, OA, medication noncompliance, obesity who presented to emergency department on 04/23 with complaints of weakness, elevated blood glucose levels, nausea, polydipsia, polyuria and diminished oral intake over the past week with worsening symptoms over the past 2 days. Patient acknowledges noncompliance with oral antihyperglycemic therapy. Patient was seen and evaluated in the emergency department and found to have lab work consistent with diabetic ketoacidosis, metabolic encephalopathy, metabolic acidosis and volume depletion. Patient was admitted to the hospital service to the ICU initiated DKA protocol with CCM consult. 04/24/21- Patient remains on DKA protocol. Still very lethargic this am, following simple commands. Rt. knee wound and swelling noted, and nursing staff also reported thick, white vaginal discharge. C/f sepsis, blood culture ordered, this am UA noted. Will start patient on PO difflucan for possible yeast infection, pending culture data. Anion GAP is still 18 this am, will continue DKA protocol for now. Continue to monitor electrolytes, serial BMP ordered. 04/25/21- Patient appears to be in distress this am, now on 3L NC. Lactic acidosis worsen overnight, X1L LR bolus adminstered. Ordered placed for stat ABGs. Blood culture growing GPC 3/4 bottles, patient remains afebrile with no leukocytosis. IV abx was escalated, ID consulted. Ortho consult is still pending, order placed for XR of the Rt. knee. Given patient worsen condition and high anio, gap, will continue insulin gtt for now. Low K and mg was repleted. Continue serial BMP,mg, and phosp 04/26/21- Patient appears more alert and awake this am, talkative, and following commands. Remains on DKA protocol, gap is closedX2, will transition patient to SSI and basal insulin and initiate enteral nutrition. Patient remains afebrile overnight, continue IV Abx per ID. 04/27/21- TASHA overnight. Patient mentation continue to improve. Worsening hyperglycemia, patient is tolerating TF. 70/30 added BID and SSI was adjusted to high dose Q4hrs. D/[facility] patient is stable for transfer to [facility] 04/28/21- Patient continue to improve. Remains drowsy this am, however, easily arousable. Now on 4L NC, still requiring Q4hrs NT suction due to increased secretions and weak cough. Continue to wean O2 supplement as tolerated, F/U CXR in the am. Continue IV Abx per ID. 04/29: Patient is awake and alert with strong cough and able to clear own airway. Ortho consult for right knee aspiration pending. 04/30: No acute events reported overnight, patient will be transferred to the [facility] er. MR of right knee ordered. 05/01; patient had arthrocentesis 05/02; ID recommended total 6 weeks of Rocephin, case management to assist with antibiotics 05/02; patient is febrile, sepsis and positive cultures, currently on Rocephin, ID following 05/03; patient remains on tube feeding, speech therapist has not cleared for oral nutrition, aspiration risk Septic arthritis awaiting synovial debridement knee joint 05/04; blood sugars are uncontrolled Lantus insulin was stopped due to surgical procedure yesterday, Resumed Novolin 70/30, closely monitor and adjust the dose as needed History Interval history: I have seen and examined the patient at the bedside today Patient's chart and medications reviewed Patient feels slightly better, patient blood sugars are uncontrolled as patient did not receive regular dose of insulin due to n.p.o. status for arthrocentesis .Patient will resume her insulin today high-dose of 48 units twice a day, HbA1c 18.3 Patient continues to be on tube feeding, due to dysphagia, speech and swallow following. Patient has no new complaints Awaiting placement Hospitalist Physical - Constitutional Vitals: Temp Pulse Resp BP Pulse Ox 98.2 F 102 H 20 114/63 100 05/04/21 14:01 05/04/21 14:06 05/04/21 14:05 05/04/21 14:05 05/04/21 14:06 General appearance: Present: no acute distress, obese, other (Chronically ill looking) - EENT Eyes: Present: PERRL, EOM intact ENT: hearing intact, clear oral mucosa, other (Feeding tube in place) - Neck Neck: Present: supple, normal ROM - Respiratory Respiratory effort: normal, other (Chronically ill looking) Respiratory: bilateral: diminished, negative: rales, rhonchi, wheezing - Cardiovascular Rhythm: regular Heart Sounds: Present: S1 & S2 - Extremities Extremities: no ischemia, No edema - Abdominal General gastrointestinal: soft, non-tender, non-distended, normal bowel sounds - Integumentary Integumentary: Present: clear, warm - Psychiatric Psychiatric: appropriate mood/affect, cooperative - Neurologic Neurologic: moves all extremities (Residual weakness) HEART Score - HEART Score Troponin: Troponin T < 0.010 ng/mL (0.00-0.029) 04/23/21 10:33 Results - Labs CBC & Chem 7: 05/03/21 07:05 05/03/21 07:05 Labs: Laboratory Last Values WBC 14.3 K/mm3 (4.5-11.0) H 05/03/21 07:05 RBC 2.82 M/mm3 (3.65-5.03) L 05/03/21 07:05 Hgb 6.8 gm/dl (10.1-14.3) L 05/03/21 07:05 Hct 22.7 % (30.3-42.9) L 05/03/21 07:05 MCV 80 fl (79-97) 05/03/21 07:05 MCH 24 pg (28-32) L 05/03/21 07:05 MCHC 30 % (30-34) 05/03/21 07:05 RDW 14.3 % (13.2-15.2) 05/03/21 07:05 Plt Count 292 K/mm3 (140-440) 05/03/21 07:05 Lymph % (Auto) 11.8 % (13.4-35.0) L 05/03/21 07:05 [place] % (Auto) 3.4 % (0.0-7.3) 05/03/21 07:05 Eos % (Auto) 0.9 % (0.0-4.3) 05/03/21 07:05 Baso % (Auto) 0.6 % (0.0-1.8) 05/03/21 07:05 Lymph # (Auto) 1.7 K/mm3 (1.2-5.4) 05/03/21 07:05 [place] # (Auto) 0.5 K/mm3 (0.0-0.8) 05/03/21 07:05 Eos # (Auto) 0.1 K/mm3 (0.0-0.4) 05/03/21 07:05 Baso # (Auto) 0.1 K/mm3 (0.0-0.1) 05/03/21 07:05 Add Manual Diff Complete 04/25/21 08:10 Total Counted 100 04/25/21 08:10 Seg Neutrophils % 83.3 % (40.0-70.0) H 05/03/21 07:05 Seg Neuts % (Manual) 33.0 % (40.0-70.0) L 04/25/21 08:10 Band Neutrophils % 23.0 % 04/25/21 08:10 Lymphocytes % (Manual) 19.0 % (13.4-35.0) 04/25/21 08:10 Reactive Lymphs % (Man) 1.0 % 04/25/21 08:10 Monocytes % (Manual) 1.0 % (0.0-7.3) 04/25/21 08:10 Eosinophils % (Manual) 1.0 % (0.0-4.3) 04/25/21 08:10 Metamyelocytes % 3.0 % 04/23/21 10:33 Myelocytes % 22.0 % 04/25/21 08:10 Nucleated RBC % Not Reportable 04/25/21 08:10 Seg Neutrophils # 11.9 K/mm3 (1.8-7.7) H 05/03/21 07:05 Seg Neutrophils # Man 1.9 K/mm3 (1.8-7.7) 04/25/21 08:10 Band Neutrophils # 1.3 K/mm3 04/25/21 08:10 Lymphocytes # (Manual) 1.1 K/mm3 (1.2-5.4) L 04/25/21 08:10 Abs React Lymphs (Man) 0.1 K/mm3 04/25/21 08:10 Monocytes # (Manual) 0.1 K/mm3 (0.0-0.8) 04/25/21 08:10 Eosinophils # (Manual) 0.1 K/mm3 (0.0-0.4) 04/25/21 08:10 Basophils # (Manual) 0.0 K/mm3 (0.0-0.1) 04/25/21 08:10 Metamyelocytes # 0.0 K/mm3 04/25/21 08:10 Myelocytes # 1.3 K/mm3 04/25/21 08:10 Promyelocytes # 0.0 K/mm3 04/25/21 08:10 Blast Cells # 0.0 K/mm3 04/25/21 08:10 WBC Morphology Not Reportable 04/25/21 08:10 Hypersegmented Neuts Not Reportable 04/25/21 08:10 Hyposegmented Neuts Not Reportable 04/25/21 08:10 Hypogranular Neuts Not Reportable 04/25/21 08:10 Smudge Cells Not Reportable 04/25/21 08:10 Toxic Granulation Not Reportable 04/25/21 08:10 Toxic Vacuolation Not Reportable 04/25/21 08:10 Dohle Bodies Not Reportable 04/25/21 08:10 Pelger-Huet Anomaly Not Reportable 04/25/21 08:10 Tiherry Rods Not Reportable 04/25/21 08:10 Platelet Estimate Consistent w auto 04/25/21 08:10 Clumped Platelets Not Reportable 04/25/21 08:10 Plt Clumps, EDTA Not Reportable 04/25/21 08:10 Large Platelets Not Reportable 04/25/21 08:10 Giant Platelets Not Reportable 04/25/21 08:10 Platelet Satelliting Not Reportable 04/25/21 08:10 Plt Morphology Comment Not Reportable 04/25/21 08:10 RBC Morphology Not Reportable 04/25/21 08:10 Dimorphic RBCs Not Reportable 04/25/21 08:10 Polychromasia Not Reportable 04/25/21 08:10 Hypochromasia 1+ 04/25/21 08:10 Poikilocytosis Not Reportable 04/25/21 08:10 Anisocytosis Not Reportable 04/25/21 08:10 Microcytosis Not Reportable 04/25/21 08:10 Macrocytosis Not Reportable 04/25/21 08:10 Spherocytes Not Reportable 04/25/21 08:10 Pappenheimer Bodies Not Reportable 04/25/21 08:10 Sickle Cells Not Reportable 04/25/21 08:10 Target Cells Not Reportable 04/25/21 08:10 Tear Drop Cells Not Reportable 04/25/21 08:10 Ovalocytes Not Reportable 04/25/21 08:10 Helmet Cells Not Reportable 04/25/21 08:10 [place] Bodies Not Reportable 04/25/21 08:10 [place] Rings Not Reportable 04/25/21 08:10 [place] Cells Not Reportable 04/25/21 08:10 Bite Cells Not Reportable 04/25/21 08:10 Crenated Cell Not Reportable 04/25/21 08:10 Elliptocytes Not Reportable 04/25/21 08:10 Acanthocytes (Spur) Not Reportable 04/25/21 08:10 Rouleaux Not Reportable 04/25/21 08:10 Hemoglobin C Crystals Not Reportable 04/25/21 08:10 Schistocytes Not Reportable 04/25/21 08:10 Malaria parasites Not Reportable 04/25/21 08:10 Juan Bodies Not Reportable 04/25/21 08:10 Hem Pathologist Commnt No 04/25/21 08:10 ABG pH 7.426 pH Units (7.350-7.450) 04/25/21 11:20 ABG pCO2 25.3 mm Hg 04/25/21 11:20 ABG pO2 73.2 mm Hg (80.0-90.0) L 04/25/21 11:20 ABG HCO3 16.2 mmol/L (20.0-26.0) L 04/25/21 11:20 ABG O2 Saturation 96.9 % (95.0-99.0) 04/25/21 11:20 ABG O2 Content 11.6 (0.0-44) 04/25/21 11:20 ABG Base Excess -7.1 mmol/L (-2.0-3.0) L 04/25/21 11:20 ABG Hemoglobin 8.7 gm/dl (12.0-16.0) L 04/25/21 11:20 ABG Carboxyhemoglobin 1.6 % (0.0-5.0) 04/25/21 11:20 ABG Methemoglobin 0.6 % (0.0-1.5) 04/25/21 11:20 VBG pH 7.180 (7.320-7.420) L* 04/23/21 10:33 Oxyhemoglobin 94.8 % (95.0-99.0) L 04/25/21 11:20 FiO2 28 % 04/25/21 11:20 Sodium 144 mmol/L (137-145) 05/03/21 07:05 Potassium 4.5 mmol/L (3.6-5.0) 05/03/21 07:05 Chloride 104.2 mmol/L (98-107) 05/03/21 07:05 Carbon Dioxide 28 mmol/L (22-30) 05/03/21 07:05 Anion Gap 16 mmol/L 05/03/21 07:05 BUN 39 mg/dL (7-17) H 05/03/21 07:05 Creatinine 1.2 mg/dL (0.6-1.2) 05/03/21 07:05 Estimated GFR 58 ml/min 05/03/21 07:05 BUN/Creatinine Ratio 33 % 05/03/21 07:05 Glucose 163 mg/dL (65-100) H 05/03/21 07:05 POC Glucose 383 mg/dL (70-105) H 05/04/21 11:19 Hemoglobin A1c 18.3 % (4-6) H 04/24/21 04:16 Lactic Acid 1.70 mmol/L (0.7-2.0) 04/26/21 05:02 Uric Acid 7.5 mg/dL (3.5-7.6) 04/24/21 12:14 Calcium 9.1 mg/dL (8.4-10.2) 05/03/21 07:05 Phosphorus 4.50 mg/dL (2.5-4.5) 04/30/21 04:41 Magnesium 2.10 mg/dL (1.7-2.3) 05/03/21 07:05 Total Bilirubin 0.50 mg/dL (0.1-1.2) 04/30/21 04:41 AST 12 units/L (5-40) 04/30/21 04:41 ALT 7 units/L (7-56) 04/30/21 04:41 Alkaline Phosphatase 171 units/L (35-129) H 04/30/21 04:41 Ammonia 37.0 umol/L (25-60) 04/23/21 10:33 Total Creatine Kinase 83 units/L (30-135) 04/23/21 10:33 Troponin T < 0.010 ng/mL (0.00-0.029) 04/23/21 10:33 C-Reactive Protein 24.30 mg/dL (0.00-1.30) H 04/24/21 18:24 Total Protein 6.1 g/dL (6.3-8.2) L 04/30/21 04:41 Albumin 1.4 g/dL (3.9-5) L 04/30/21 04:41 Albumin/Globulin Ratio 0.3 % 04/30/21 04:41 Procalcitonin 21.10 ng/mL (<0.15) 04/24/21 12:14 TSH 1.400 mlU/mL (0.270-4.200) 04/23/21 10:33 Urine Color Katie (Yellow) 04/27/21 16:16 Urine Turbidity Cloudy (Clear) 04/27/21 16:16 Urine pH 5.0 (5.0-7.0) 04/27/21 16:16 Ur Specific [place] 1.014 (1.003-1.030) 04/27/21 16:16 Urine Protein <15 mg/dl mg/dL (Negative) 04/27/21 16:16 Urine Glucose (UA) >=500 mg/dL (Negative) 04/27/21 16:16 Urine Ketones Neg mg/dL (Negative) 04/27/21 16:16 Urine Blood Neg (Negative) 04/27/21 16:16 Urine Nitrite Neg (Negative) 04/27/21 16:16 Urine Bilirubin Neg (Negative) 04/27/21 16:16 Urine Urobilinogen 2.0 mg/dL (<2.0) 04/27/21 16:16 Ur Leukocyte Esterase Neg (Negative) 04/27/21 16:16 Urine WBC (Auto) 1.0 /HPF (0.0-6.0) 04/27/21 16:16 Urine RBC (Auto) 1.0 /HPF (0.0-6.0) 04/27/21 16:16 U Epithel Cells (Auto) < 1.0 /HPF (0-13.0) 04/24/21 08:40 Urine Bacteria (Auto) 1+ /HPF (Negative) 04/27/21 16:16 Amorphous Crystals Few 04/27/21 16:16 Urine Yeast (Budding) 3+ /HPF 04/27/21 16:16 Vancomycin Trough 38.2 ug/mL (5.0-20.0) H 04/26/21 19:27 Coronavirus (PCR) Negative (Negative) 04/25/21 Unknown Blood Type A POSITIVE 05/03/21 18:00 Antibody Screen Negative 05/03/21 18:00 Crossmatch See Detail 05/03/21 18:00 Microbiology: Microbiology 05/03/21 Unknown Knee - Right Surgical Culture - Preliminary Sanchez/IV: Voiding Method Indwelling Catheter Active Medications - Current Medications Current Medications: Generic Name Dose Route Start Last Admin Trade Name Freq PRN Reason Stop Dose Admin Acetaminophen 650 mg 04/23/21 11:54 05/02/21 18:33 Acetaminophen 325 Mg Tab PO 650 mg Q6H PRN Administration Pain MILD(1-3)/Fever >100.5/SMITH Albuterol 2.5 mg 05/02/21 12:56 05/02/21 21:17 Albuterol 2.5 Mg/3 Ml Nebu IH 2.5 mg Q4HRT PRN Administration Shortness Of Breath Lipase/Protease/Amylase 1 each 04/29/21 15:42 Lipase 10,500/Protease 25,000/Amylase 43,750 (Units) Dr Michael FEEDTUBE PRN PRN For Clogged Feeding Tube Dextrose 50 ml 04/26/21 14:00 Dextrose 50% In Water (25gm) 50 Ml Syringe IV Q30MIN PRN Hypoglycemia Protocol Enoxaparin Sodium 40 mg 04/24/21 22:00 05/04/21 10:31 Enoxaparin 40 Mg/0.4 Ml Inj SUB-Q Not Given BID [facility] Protocol Famotidine 20 mg 04/29/21 10:00 05/04/21 10:34 Famotidine 20 Mg Tab FEEDTUBE 20 mg DAILY AMIRA Administration Hydromorphone HCl 0.5 mg 04/23/21 11:54 05/03/21 11:17 Hydromorphone 1 Mg/1 Ml Inj IV 0.5 mg Q23H PRN Administration Pain , Severe (7-10) Cefazolin Sodium 2 gm/ Sodium 100 mls @ 200 mls/hr 05/02/21 14:00 05/04/21 1 0:29 Chloride IV 200 mls/hr Q6H AMIRA Administration Protocol Insulin Human Isoph/Insulin Regular 48 unit 05/02/21 09:30 05/04/21 11:14 Insulin Nph/Regular 70/30 Inj SUB-Q 48 unit BIDDIAB AMIRA Administration Insulin Human Lispro 0 unit 04/29/21 12:00 05/04/21 12:13 Insulin Lispro 100 Unit/Ml SUB-Q 8 unit Q6HR AMIRA Administration Protocol Ketorolac Tromethamine 15 mg 05/03/21 18:59 Ketorolac 30 Mg/1 Ml Inj IV 05/08/21 18:58 Q6H PRN Pain, Moderate (4-6) Morphine Sulfate 2 mg 05/03/21 18:59 05/03/21 23:04 Morphine 2 Mg/1 Ml Inj IV 2 mg Q4H PRN Administration Pain, Moderate (4-6) Morphine Sulfate 4 mg 05/03/21 18:59 Morphine 4 Mg/1 Ml Inj IV Q4H PRN Pain , Severe (7-10) Oxycodone/Acetaminophen 1 tab 04/23/21 11:54 05/01/21 17:38 Oxycodone /Acetaminophen 5-325mg Tab PO 1 tab Q16H PRN Administration Pain, Moderate (4-6) Senna 17.2 mg 04/25/21 22:00 05/03/21 23:06 Sennosides 8.6 Mg Tab PO 17.2 mg QHS AMIRA Administration Simple Syrup 15 ml 04/29/21 15:42 Simple Syrup 15 Ml FEEDTUBE PRN PRN Hypoglycemia Simple Syrup 30 ml 04/29/21 15:42 Simple Syrup 15 Ml FEEDTUBE PRN PRN Hypoglycemia Sodium Bicarbonate 325 mg 04/29/21 15:42 Sodium Bicarbonate 325 Mg Tab FEEDTUBE PRN PRN For Clogged Feeding Tube Sodium Chloride 10 ml 04/23/21 22:00 05/04/21 10:33 Sodium Chloride 0.9% 10 Ml Flush Syringe IV 10 ml BID AMIRA Administration Sodium Chloride 10 ml 04/23/21 11:54 04/24/21 11:15 Sodium Chloride 0.9% 10 Ml Flush Syringe IV 10 ml PRN PRN Administration LINE FLUSH Sodium Chloride 10 ml 05/03/21 19:00 Sodium Chloride 0.9% 10 Ml Flush Syringe IV PRN AMIRA Nutrition/Malnutrition Assess - Dietary Evaluation Nutrition/Malnutrition Findings: Nutrition Notes Start: 04/26/21 09:53 Freq: Status: Active Protocol: Document 05/03/21 12:59 HOANG (Rec: 05/03/21 13:05 HOANG [id number]) Nutrition Notes Initial or Follow up Reassessment Current Diagnosis Diabetes Other Pertinent Diagnosis DKA, OA, (R) knee septic arthritis Current Diet NPO Labs/Tests BUN 39 BG 163 POC Glu range since last assessment: 126-284 Pertinent Medications Reviewed Height 5 ft 8 in Weight 158.6 kg [place] Body Weight (kg) 63.63 BMI 53.1 Weight Status Morbidly Obese Subjective/Other Information Pt scheduled for (R) knee wound debridement today. Per RN notes, pt was tolerating TF at goal rate of 65ml/hr last pm. #1 Nutrition Diagnosis Inadequate oral intake Diagnosis Progress(for reassessment Continues documentation) Is patient on ventilator? No Is Patient Ambulatory and/or Out of Bed No REE-([facility]-confined to bed) 2708.292 Kcal/Kg value to use for calculation 11 Approximate Energy Requirements Using 1745 kcal/Kg Calculation Used for Recommendations Kcal/kg Additional Notes Pro needs 1.25-1.5g/kg adjBW: 139-167g/day Fluid needs 1ml/kcal Nutrition Intervention Nutrition Support: Resume Glucerna 1.2 at 65ml/hr with 100ml water flush q4h. Kcal 1,872 Protein (gm) 94 Carbohydrates (gm) 179 Fat (gm) 94 Fluid (mL) 1,256 Fiber (gm) 25 Goal #1 Resume TF to meet nutrient needs Follow-Up By: 05/06/21 Additional Comments F/U: TF restart
--- NOTE | 2021-05-04 18:31 | Progress Note ---
Subjective Date of service: 05/04/21 Principal diagnosis: HAGMA; DKA; AMS; Obesity; Osteoarthritis; Hypercalcemia Interval history: Patient is seen today for: Acute metabolic acidosis; Diabetic ketoacidosis; Acute toxic metabolic encephalopathy; Obesity; Osteoarthritis; Hypercalcemia Seen and examined at bedside; 24hour events reviewed; nursing and respiratory care staff consulted; no adverse overnight events reported to me; resting peacefully in bed; denies N/V/F/C. Awake and alert, strong cough . On supplemental oxygen via NC, NGT in nares for feeding, s/p arthrocentesis Objective Vital Signs - 12hr 05/04/21 05/04/21 05/04/21 10:00 10:42 11:19 Temperature 98.2 F Pulse Rate 101 H Respiratory 18 18 Rate Blood Pressure 119/57 O2 Sat by Pulse 97 96 98 Oximetry 05/04/21 05/04/21 05/04/21 14:01 14:05 14:06 Temperature 98.2 F Pulse Rate 101 H 102 H 102 H Respiratory 18 20 Rate Blood Pressure 114/63 114/63 O2 Sat by Pulse 100 100 100 Oximetry 05/04/21 05/04/21 05/04/21 14:27 14:50 15:15 Temperature 98.3 F Pulse Rate 98 H 99 H 100 H Respiratory 18 Rate Blood Pressure 110/55 115/55 O2 Sat by Pulse 98 100 98 Oximetry Constitutional: no acute distress, alert Eyes: non-icteric ENT: oropharynx moist Neck: supple, no lymphadenopathy, no JVD Effort: normal Ascultation: Bilateral: clear, diminished breath sounds, rhonchi (and referred upper airway sounds) Percussion: Bilateral: not dull Cardiovascular: regular rate and rhythm, other (S1,S2) Gastrointestinal: hypoactive bowel sounds, soft, non-tender, non-distended Integumentary: rash (perineal) Extremities: no cyanosis, no edema, pulses normal, no ischemia or petechiae Neurologic: normal mental status, non-focal exam, pupils equal and round, other Psychiatric: anxious CBC and BMP: 05/03/21 07:05 05/03/21 07:05 ABG, PT/INR, D-dimer: ABG ABG pH 7.426 pH Units (7.350-7.450) 04/25/21 11:20 ABG pCO2 25.3 mm Hg 04/25/21 11:20 ABG pO2 73.2 mm Hg (80.0-90.0) L 04/25/21 11:20 ABG O2 Saturation 96.9 % (95.0-99.0) 04/25/21 11:20 Abnormal lab findings: Abnormal Labs 04/23/21 04/23/21 04/23/21 10:33 10:33 10:33 WBC RBC Hgb Hct MCV MCH 26 L Plt Count Lymph % (Auto) Seg Neutrophils % Seg Neuts % (Manual) Lymphocytes % (Manual) 7.0 L Nucleated RBC % 2.0 H Seg Neutrophils # Lymphocytes # (Manual) 0.5 L ABG pO2 ABG HCO3 ABG Base Excess ABG Hemoglobin VBG pH 7.180 L* Oxyhemoglobin Sodium 122 L Potassium 3.0 L Chloride 84.8 L Carbon Dioxide 6 L* BUN 49 H Creatinine 1.4 H Glucose 775 H* POC Glucose Hemoglobin A1c Lactic Acid Calcium 12.2 H* Phosphorus Magnesium Alkaline Phosphatase 130 H C-Reactive Protein Total Protein Albumin 2.9 L Vancomycin Trough Crossmatch 04/23/21 04/23/21 04/23/21 10:40 12:44 14:01 WBC RBC Hgb Hct MCV MCH Plt Count Lymph % (Auto) Seg Neutrophils % Seg Neuts % (Manual) Lymphocytes % (Manual) Nucleated RBC % Seg Neutrophils # Lymphocytes # (Manual) ABG pO2 ABG HCO3 ABG Base Excess ABG Hemoglobin VBG pH Oxyhemoglobin Sodium Potassium Chloride Carbon Dioxide BUN Creatinine Glucose POC Glucose > 600 H 550 H Hemoglobin A1c Lactic Acid Calcium Phosphorus 1.50 L Magnesium Alkaline Phosphatase C-Reactive Protein Total Protein Albumin Vancomycin Trough Crossmatch 04/23/21 04/23/21 04/23/21 14:01 14:04 14:56 WBC RBC Hgb Hct MCV MCH Plt Count Lymph % (Auto) Seg Neutrophils % Seg Neuts % (Manual) Lymphocytes % (Manual) Nucleated RBC % Seg Neutrophils # Lymphocytes # (Manual) ABG pO2 ABG HCO3 ABG Base Excess ABG Hemoglobin VBG pH Oxyhemoglobin Sodium 125 L Potassium 3.0 L Chloride 89.2 L Carbon Dioxide 6 L* BUN 45 H Creatinine 1.3 H Glucose 594 H* POC Glucose 518 H 425 H Hemoglobin A1c Lactic Acid Calcium 10.9 H Phosphorus Magnesium Alkaline Phosphatase C-Reactive Protein Total Protein Albumin Vancomycin Trough Crossmatch 04/23/21 04/23/21 04/23/21 15:43 15:48 17:21 WBC RBC Hgb Hct MCV MCH Plt Count Lymph % (Auto) Seg Neutrophils % Seg Neuts % (Manual) Lymphocytes % (Manual) Nucleated RBC % Seg Neutrophils # Lymphocytes # (Manual) ABG pO2 ABG HCO3 ABG Base Excess ABG Hemoglobin VBG pH Oxyhemoglobin Sodium 131 L Potassium 2.9 L* Chloride Carbon Dioxide 8 L* BUN 39 H Creatinine Glucose 434 H POC Glucose 410 H 407 H Hemoglobin A1c Lactic Acid Calcium 10.3 H Phosphorus Magnesium Alkaline Phosphatase C-Reactive Protein Total Protein Albumin Vancomycin Trough Crossmatch 04/23/21 04/23/21 04/23/21 18:07 19:13 19:54 WBC RBC Hgb Hct MCV MCH Plt Count Lymph % (Auto) Seg Neutrophils % Seg Neuts % (Manual) Lymphocytes % (Manual) Nucleated RBC % Seg Neutrophils # Lymphocytes # (Manual) ABG pO2 ABG HCO3 ABG Base Excess ABG Hemoglobin VBG pH Oxyhemoglobin Sodium 131 L Potassium 3.1 L Chloride 95.9 L Carbon Dioxide 7 L* BUN 39 H Creatinine Glucose 391 H POC Glucose 428 H 350 H Hemoglobin A1c Lactic Acid Calcium 11.2 H Phosphorus Magnesium Alkaline Phosphatase C-Reactive Protein Total Protein Albumin Vancomycin Trough Crossmatch 04/23/21 04/23/21 04/23/21 19:54 20:12 20:59 WBC RBC Hgb Hct MCV MCH Plt Count Lymph % (Auto) Seg Neutrophils % Seg Neuts % (Manual) Lymphocytes % (Manual) Nucleated RBC % Seg Neutrophils # Lymphocytes # (Manual) ABG pO2 ABG HCO3 ABG Base Excess ABG Hemoglobin VBG pH Oxyhemoglobin Sodium Potassium Chloride Carbon Dioxide BUN Creatinine Glucose POC Glucose 365 H 286 H Hemoglobin A1c Lactic Acid Calcium Phosphorus 1.10 L D Magnesium Alkaline Phosphatase C-Reactive Protein Total Protein Albumin Vancomycin Trough Crossmatch 04/23/21 04/23/21 04/23/21 22:05 22:23 22:59 WBC RBC Hgb Hct MCV MCH Plt Count Lymph % (Auto) Seg Neutrophils % Seg Neuts % (Manual) Lymphocytes % (Manual) Nucleated RBC % Seg Neutrophils # Lymphocytes # (Manual) ABG pO2 ABG HCO3 ABG Base Excess ABG Hemoglobin VBG pH Oxyhemoglobin Sodium 135 L Potassium 3.2 L Chloride Carbon Dioxide 10 L BUN 35 H Creatinine Glucose 300 H POC Glucose 257 H 238 H Hemoglobin A1c Lactic Acid Calcium 11.6 H Phosphorus Magnesium Alkaline Phosphatase C-Reactive Protein Total Protein Albumin Vancomycin Trough Crossmatch 04/23/21 04/24/21 04/24/21 23:57 00:10 00:56 WBC RBC Hgb Hct MCV MCH Plt Count Lymph % (Auto) Seg Neutrophils % Seg Neuts % (Manual) Lymphocytes % (Manual) Nucleated RBC % Seg Neutrophils # Lymphocytes # (Manual) ABG pO2 ABG HCO3 ABG Base Excess ABG Hemoglobin VBG pH Oxyhemoglobin Sodium Potassium 3.2 L Chloride Carbon Dioxide 13 L BUN 33 H Creatinine Glucose 267 H POC Glucose 223 H 254 H Hemoglobin A1c Lactic Acid Calcium 11.2 H Phosphorus 1.20 L Magnesium Alkaline Phosphatase C-Reactive Protein Total Protein Albumin Vancomycin Trough Crossmatch 04/24/21 04/24/21 04/24/21 01:58 02:58 03:57 WBC RBC Hgb Hct MCV MCH Plt Count Lymph % (Auto) Seg Neutrophils % Seg Neuts % (Manual) Lymphocytes % (Manual) Nucleated RBC % Seg Neutrophils # Lymphocytes # (Manual) ABG pO2 ABG HCO3 ABG Base Excess ABG Hemoglobin VBG pH Oxyhemoglobin Sodium Potassium Chloride Carbon Dioxide BUN Creatinine Glucose POC Glucose 264 H 251 H 200 H Hemoglobin A1c Lactic Acid Calcium Phosphorus Magnesium Alkaline Phosphatase C-Reactive Protein Total Protein Albumin Vancomycin Trough Crossmatch 04/24/21 04/24/21 04/24/21 04:16 04:16 04:16 WBC RBC Hgb Hct MCV MCH 26 L Plt Count Lymph % (Auto) Seg Neutrophils % Seg Neuts % (Manual) Lymphocytes % (Manual) Nucleated RBC % Seg Neutrophils # Lymphocytes # (Manual) ABG pO2 ABG HCO3 ABG Base Excess ABG Hemoglobin VBG pH Oxyhemoglobin Sodium Potassium Chloride 108.0 H Carbon Dioxide 13 L BUN 31 H Creatinine Glucose 243 H POC Glucose Hemoglobin A1c 18.3 H Lactic Acid Calcium 10.9 H Phosphorus 1.80 L D Magnesium Alkaline Phosphatase C-Reactive Protein Total Protein Albumin Vancomycin Trough Crossmatch 04/24/21 04/24/21 04/24/21 04:59 05:53 06:51 WBC RBC Hgb Hct MCV MCH Plt Count Lymph % (Auto) Seg Neutrophils % Seg Neuts % (Manual) Lymphocytes % (Manual) Nucleated RBC % Seg Neutrophils # Lymphocytes # (Manual) ABG pO2 ABG HCO3 ABG Base Excess ABG Hemoglobin VBG pH Oxyhemoglobin Sodium Potassium Chloride Carbon Dioxide BUN Creatinine Glucose POC Glucose 208 H 213 H 161 H Hemoglobin A1c Lactic Acid Calcium Phosphorus Magnesium Alkaline Phosphatase C-Reactive Protein Total Protein Albumin Vancomycin Trough Crossmatch 04/24/21 04/24/21 04/24/21 07:58 09:21 10:06 WBC RBC Hgb Hct MCV MCH Plt Count Lymph % (Auto) Seg Neutrophils % Seg Neuts % (Manual) Lymphocytes % (Manual) Nucleated RBC % Seg Neutrophils # Lymphocytes # (Manual) ABG pO2 ABG HCO3 ABG Base Excess ABG Hemoglobin VBG pH Oxyhemoglobin Sodium Potassium Chloride Carbon Dioxide BUN Creatinine Glucose POC Glucose 149 H 178 H 164 H Hemoglobin A1c Lactic Acid Calcium Phosphorus Magnesium Alkaline Phosphatase C-Reactive Protein Total Protein Albumin Vancomycin Trough Crossmatch 04/24/21 04/24/21 04/24/21 11:03 12:07 12:14 WBC RBC Hgb Hct MCV MCH Plt Count Lymph % (Auto) Seg Neutrophils % Seg Neuts % (Manual) Lymphocytes % (Manual) Nucleated RBC % Seg Neutrophils # Lymphocytes # (Manual) ABG pO2 ABG HCO3 ABG Base Excess ABG Hemoglobin VBG pH Oxyhemoglobin Sodium Potassium 3.2 L Chloride 108.7 H Carbon Dioxide 16 L BUN 24 H Creatinine Glucose 160 H POC Glucose 157 H 142 H Hemoglobin A1c Lactic Acid Calcium 10.5 H Phosphorus 0.70 L* D Magnesium Alkaline Phosphatase C-Reactive Protein Total Protein Albumin Vancomycin Trough Crossmatch 04/24/21 04/24/21 04/24/21 12:14 13:02 14:00 WBC RBC Hgb Hct MCV MCH Plt Count Lymph % (Auto) Seg Neutrophils % Seg Neuts % (Manual) Lymphocytes % (Manual) Nucleated RBC % Seg Neutrophils # Lymphocytes # (Manual) ABG pO2 ABG HCO3 ABG Base Excess ABG Hemoglobin VBG pH Oxyhemoglobin Sodium Potassium Chloride Carbon Dioxide BUN Creatinine Glucose POC Glucose 138 H 150 H Hemoglobin A1c Lactic Acid 2.50 H* Calcium Phosphorus Magnesium Alkaline Phosphatase C-Reactive Protein Total Protein Albumin Vancomycin Trough Crossmatch 04/24/21 04/24/21 04/24/21 15:14 16:07 17:11 WBC RBC Hgb Hct MCV MCH Plt Count Lymph % (Auto) Seg Neutrophils % Seg Neuts % (Manual) Lymphocytes % (Manual) Nucleated RBC % Seg Neutrophils # Lymphocytes # (Manual) ABG pO2 ABG HCO3 ABG Base Excess ABG Hemoglobin VBG pH Oxyhemoglobin Sodium Potassium Chloride Carbon Dioxide BUN Creatinine Glucose POC Glucose 145 H 148 H 156 H Hemoglobin A1c Lactic Acid Calcium Phosphorus Magnesium Alkaline Phosphatase C-Reactive Protein Total Protein Albumin Vancomycin Trough Crossmatch 04/24/21 04/24/21 04/24/21 18:12 18:24 19:55 WBC RBC Hgb Hct MCV MCH Plt Count Lymph % (Auto) Seg Neutrophils % Seg Neuts % (Manual) Lymphocytes % (Manual) Nucleated RBC % Seg Neutrophils # Lymphocytes # (Manual) ABG pO2 ABG HCO3 ABG Base Excess ABG Hemoglobin VBG pH Oxyhemoglobin Sodium Potassium Chloride 109.2 H Carbon Dioxide 15 L BUN 22 H Creatinine Glucose 159 H POC Glucose 153 H 176 H Hemoglobin A1c Lactic Acid Calcium Phosphorus 1.80 L D Magnesium Alkaline Phosphatase C-Reactive Protein 24.30 H Total Protein Albumin Vancomycin Trough Crossmatch 04/24/21 04/24/21 04/24/21 20:55 22:04 23:02 WBC RBC Hgb Hct MCV MCH Plt Count Lymph % (Auto) Seg Neutrophils % Seg Neuts % (Manual) Lymphocytes % (Manual) Nucleated RBC % Seg Neutrophils # Lymphocytes # (Manual) ABG pO2 ABG HCO3 ABG Base Excess ABG Hemoglobin VBG pH Oxyhemoglobin Sodium Potassium Chloride Carbon Dioxide BUN Creatinine Glucose POC Glucose 146 H 169 H Hemoglobin A1c Lactic Acid 3.10 H* Calcium Phosphorus Magnesium Alkaline Phosphatase C-Reactive Protein Total Protein Albumin Vancomycin Trough Crossmatch 04/24/21 04/25/21 04/25/21 23:13 00:05 01:28 WBC RBC Hgb Hct MCV MCH Plt Count Lymph % (Auto) Seg Neutrophils % Seg Neuts % (Manual) Lymphocytes % (Manual) Nucleated RBC % Seg Neutrophils # Lymphocytes # (Manual) ABG pO2 ABG HCO3 ABG Base Excess ABG Hemoglobin VBG pH Oxyhemoglobin Sodium Potassium Chloride Carbon Dioxide BUN Creatinine Glucose POC Glucose 144 H 150 H 142 H Hemoglobin A1c Lactic Acid Calcium Phosphorus Magnesium Alkaline Phosphatase C-Reactive Protein Total Protein Albumin Vancomycin Trough Crossmatch 04/25/21 04/25/21 04/25/21 02:03 03:07 04:17 WBC RBC Hgb Hct MCV MCH Plt Count Lymph % (Auto) Seg Neutrophils % Seg Neuts % (Manual) Lymphocytes % (Manual) Nucleated RBC % Seg Neutrophils # Lymphocytes # (Manual) ABG pO2 ABG HCO3 ABG Base Excess ABG Hemoglobin VBG pH Oxyhemoglobin Sodium Potassium Chloride Carbon Dioxide BUN Creatinine Glucose POC Glucose 148 H 161 H 158 H Hemoglobin A1c Lactic Acid Calcium Phosphorus Magnesium Alkaline Phosphatase C-Reactive Protein Total Protein Albumin Vancomycin Trough Crossmatch 04/25/21 04/25/21 04/25/21 05:48 06:52 07:58 WBC RBC Hgb Hct MCV MCH Plt Count Lymph % (Auto) Seg Neutrophils % Seg Neuts % (Manual) Lymphocytes % (Manual) Nucleated RBC % Seg Neutrophils # Lymphocytes # (Manual) ABG pO2 ABG HCO3 ABG Base Excess ABG Hemoglobin VBG pH Oxyhemoglobin Sodium Potassium Chloride Carbon Dioxide BUN Creatinine Glucose POC Glucose 136 H 137 H 143 H Hemoglobin A1c Lactic Acid Calcium Phosphorus Magnesium Alkaline Phosphatase C-Reactive Protein Total Protein Albumin Vancomycin Trough Crossmatch 04/25/21 04/25/21 04/25/21 08:10 08:10 08:10 WBC RBC Hgb 9.5 L Hct 28.8 L MCV MCH 26 L Plt Count Lymph % (Auto) Seg Neutrophils % Seg Neuts % (Manual) 33.0 L Lymphocytes % (Manual) Nucleated RBC % Seg Neutrophils # Lymphocytes # (Manual) 1.1 L ABG pO2 ABG HCO3 ABG Base Excess ABG Hemoglobin VBG pH Oxyhemoglobin Sodium Potassium 3.3 L Chloride 109.0 H Carbon Dioxide 16 L BUN 23 H Creatinine Glucose 151 H POC Glucose Hemoglobin A1c Lactic Acid 2.10 H* Calcium Phosphorus 2.20 L D Magnesium 1.60 L Alkaline Phosphatase C-Reactive Protein Total Protein Albumin Vancomycin Trough Crossmatch 04/25/21 04/25/21 04/25/21 08:53 09:59 11:20 WBC RBC Hgb Hct MCV MCH Plt Count Lymph % (Auto) Seg Neutrophils % Seg Neuts % (Manual) Lymphocytes % (Manual) Nucleated RBC % Seg Neutrophils # Lymphocytes # (Manual) ABG pO2 ABG HCO3 ABG Base Excess ABG Hemoglobin VBG pH Oxyhemoglobin Sodium Potassium Chloride Carbon Dioxide BUN Creatinine Glucose POC Glucose 132 H 141 H 141 H Hemoglobin A1c Lactic Acid Calcium Phosphorus Magnesium Alkaline Phosphatase C-Reactive Protein Total Protein Albumin Vancomycin Trough Crossmatch 04/25/21 04/25/21 04/25/21 11:20 12:04 12:26 WBC RBC Hgb Hct MCV MCH Plt Count Lymph % (Auto) Seg Neutrophils % Seg Neuts % (Manual) Lymphocytes % (Manual) Nucleated RBC % Seg Neutrophils # Lymphocytes # (Manual) ABG pO2 73.2 L ABG HCO3 16.2 L ABG Base Excess -7.1 L ABG Hemoglobin 8.7 L VBG pH Oxyhemoglobin 94.8 L Sodium Potassium 3.4 L Chloride 109.5 H Carbon Dioxide 14 L BUN 21 H Creatinine Glucose 155 H POC Glucose 129 H Hemoglobin A1c Lactic Acid Calcium Phosphorus 1.90 L Magnesium 1.60 L Alkaline Phosphatase C-Reactive Protein Total Protein Albumin Vancomycin Trough Crossmatch 04/25/21 04/25/21 04/25/21 13:04 13:58 15:09 WBC RBC Hgb Hct MCV MCH Plt Count Lymph % (Auto) Seg Neutrophils % Seg Neuts % (Manual) Lymphocytes % (Manual) Nucleated RBC % Seg Neutrophils # Lymphocytes # (Manual) ABG pO2 ABG HCO3 ABG Base Excess ABG Hemoglobin VBG pH Oxyhemoglobin Sodium Potassium Chloride Carbon Dioxide BUN Creatinine Glucose POC Glucose 135 H 140 H 134 H Hemoglobin A1c Lactic Acid Calcium Phosphorus Magnesium Alkaline Phosphatase C-Reactive Protein Total Protein Albumin Vancomycin Trough Crossmatch 04/25/21 04/25/21 04/25/21 16:00 18:56 18:58 WBC RBC Hgb Hct MCV MCH Plt Count Lymph % (Auto) Seg Neutrophils % Seg Neuts % (Manual) Lymphocytes % (Manual) Nucleated RBC % Seg Neutrophils # Lymphocytes # (Manual) ABG pO2 ABG HCO3 ABG Base Excess ABG Hemoglobin VBG pH Oxyhemoglobin Sodium Potassium Chloride Carbon Dioxide BUN Creatinine Glucose POC Glucose 135 H 170 H Hemoglobin A1c Lactic Acid 2.10 H* Calcium Phosphorus Magnesium Alkaline Phosphatase C-Reactive Protein Total Protein Albumin Vancomycin Trough Crossmatch 04/25/21 04/25/21 04/25/21 18:58 19:52 20:53 WBC RBC Hgb Hct MCV MCH Plt Count Lymph % (Auto) Seg Neutrophils % Seg Neuts % (Manual) Lymphocytes % (Manual) Nucleated RBC % Seg Neutrophils # Lymphocytes # (Manual) ABG pO2 ABG HCO3 ABG Base Excess ABG Hemoglobin VBG pH Oxyhemoglobin Sodium Potassium Chloride 110.1 H Carbon Dioxide 13 L BUN 23 H Creatinine Glucose 206 H POC Glucose 162 H 171 H Hemoglobin A1c Lactic Acid Calcium Phosphorus Magnesium 2.40 H Alkaline Phosphatase C-Reactive Protein Total Protein Albumin Vancomycin Trough Crossmatch 04/25/21 04/25/21 04/26/21 21:54 22:53 00:03 WBC RBC Hgb Hct MCV MCH Plt Count Lymph % (Auto) Seg Neutrophils % Seg Neuts % (Manual) Lymphocytes % (Manual) Nucleated RBC % Seg Neutrophils # Lymphocytes # (Manual) ABG pO2 ABG HCO3 ABG Base Excess ABG Hemoglobin VBG pH Oxyhemoglobin Sodium Potassium Chloride Carbon Dioxide BUN Creatinine Glucose POC Glucose 139 H 140 H 129 H Hemoglobin A1c Lactic Acid Calcium Phosphorus Magnesium Alkaline Phosphatase C-Reactive Protein Total Protein Albumin Vancomycin Trough Crossmatch 04/26/21 04/26/21 04/26/21 00:38 01:00 01:56 WBC RBC Hgb Hct MCV MCH Plt Count Lymph % (Auto) Seg Neutrophils % Seg Neuts % (Manual) Lymphocytes % (Manual) Nucleated RBC % Seg Neutrophils # Lymphocytes # (Manual) ABG pO2 ABG HCO3 ABG Base Excess ABG Hemoglobin VBG pH Oxyhemoglobin Sodium Potassium Chloride 112.6 H Carbon Dioxide 14 L BUN 22 H Creatinine Glucose 149 H POC Glucose 126 H 137 H Hemoglobin A1c Lactic Acid Calcium Phosphorus Magnesium 2.40 H Alkaline Phosphatase C-Reactive Protein Total Protein Albumin Vancomycin Trough Crossmatch 04/26/21 04/26/21 04/26/21 02:54 04:04 05:02 WBC RBC 3.44 L Hgb 8.9 L Hct 26.9 L MCV 78 L MCH 26 L Plt Count Lymph % (Auto) Seg Neutrophils % Seg Neuts % (Manual) Lymphocytes % (Manual) Nucleated RBC % Seg Neutrophils # Lymphocytes # (Manual) ABG pO2 ABG HCO3 ABG Base Excess ABG Hemoglobin VBG pH Oxyhemoglobin Sodium Potassium Chloride Carbon Dioxide BUN Creatinine Glucose POC Glucose 132 H 130 H Hemoglobin A1c Lactic Acid Calcium Phosphorus Magnesium Alkaline Phosphatase C-Reactive Protein Total Protein Albumin Vancomycin Trough Crossmatch 04/26/21 04/26/21 04/26/21 05:02 05:03 06:06 WBC RBC Hgb Hct MCV MCH Plt Count Lymph % (Auto) Seg Neutrophils % Seg Neuts % (Manual) Lymphocytes % (Manual) Nucleated RBC % Seg Neutrophils # Lymphocytes # (Manual) ABG pO2 ABG HCO3 ABG Base Excess ABG Hemoglobin VBG pH Oxyhemoglobin Sodium Potassium Chloride 114.8 H Carbon Dioxide 14 L BUN 22 H Creatinine Glucose 129 H POC Glucose 115 H 129 H Hemoglobin A1c Lactic Acid Calcium Phosphorus Magnesium Alkaline Phosphatase C-Reactive Protein Total Protein Albumin Vancomycin Trough Crossmatch 04/26/21 04/26/21 04/26/21 06:53 07:58 09:09 WBC RBC Hgb Hct MCV MCH Plt Count Lymph % (Auto) Seg Neutrophils % Seg Neuts % (Manual) Lymphocytes % (Manual) Nucleated RBC % Seg Neutrophils # Lymphocytes # (Manual) ABG pO2 ABG HCO3 ABG Base Excess ABG Hemoglobin VBG pH Oxyhemoglobin Sodium Potassium Chloride Carbon Dioxide BUN Creatinine Glucose POC Glucose 121 H 124 H 125 H Hemoglobin A1c Lactic Acid Calcium Phosphorus Magnesium Alkaline Phosphatase C-Reactive Protein Total Protein Albumin Vancomycin Trough Crossmatch 04/26/21 04/26/21 04/26/21 10:05 10:52 12:00 WBC RBC Hgb Hct MCV MCH Plt Count Lymph % (Auto) Seg Neutrophils % Seg Neuts % (Manual) Lymphocytes % (Manual) Nucleated RBC % Seg Neutrophils # Lymphocytes # (Manual) ABG pO2 ABG HCO3 ABG Base Excess ABG Hemoglobin VBG pH Oxyhemoglobin Sodium Potassium Chloride Carbon Dioxide BUN Creatinine Glucose POC Glucose 131 H 129 H 126 H Hemoglobin A1c Lactic Acid Calcium Phosphorus Magnesium Alkaline Phosphatase C-Reactive Protein Total Protein Albumin Vancomycin Trough Crossmatch 04/26/21 04/26/21 04/26/21 13:17 14:06 14:11 WBC RBC Hgb Hct MCV MCH Plt Count Lymph % (Auto) Seg Neutrophils % Seg Neuts % (Manual) Lymphocytes % (Manual) Nucleated RBC % Seg Neutrophils # Lymphocytes # (Manual) ABG pO2 ABG HCO3 ABG Base Excess ABG Hemoglobin VBG pH Oxyhemoglobin Sodium Potassium 5.3 H D Chloride 112.2 H Carbon Dioxide 14 L BUN 22 H Creatinine Glucose 116 H POC Glucose 130 H 132 H Hemoglobin A1c Lactic Acid Calcium Phosphorus Magnesium 2.40 H Alkaline Phosphatase C-Reactive Protein Total Protein Albumin Vancomycin Trough Crossmatch 04/26/21 04/26/21 04/26/21 15:07 15:20 16:05 WBC RBC Hgb Hct MCV MCH Plt Count Lymph % (Auto) Seg Neutrophils % Seg Neuts % (Manual) Lymphocytes % (Manual) Nucleated RBC % Seg Neutrophils # Lymphocytes # (Manual) ABG pO2 ABG HCO3 ABG Base Excess ABG Hemoglobin VBG pH Oxyhemoglobin Sodium Potassium Chloride 112.4 H Carbon Dioxide 13 L BUN 22 H Creatinine Glucose 143 H POC Glucose 130 H 156 H Hemoglobin A1c Lactic Acid Calcium Phosphorus Magnesium Alkaline Phosphatase C-Reactive Protein Total Protein Albumin Vancomycin Trough Crossmatch 04/26/21 04/26/21 04/27/21 17:55 19:27 00:02 WBC RBC Hgb Hct MCV MCH Plt Count Lymph % (Auto) Seg Neutrophils % Seg Neuts % (Manual) Lymphocytes % (Manual) Nucleated RBC % Seg Neutrophils # Lymphocytes # (Manual) ABG pO2 ABG HCO3 ABG Base Excess ABG Hemoglobin VBG pH Oxyhemoglobin Sodium Potassium Chloride Carbon Dioxide BUN Creatinine Glucose POC Glucose 194 H 261 H Hemoglobin A1c Lactic Acid Calcium Phosphorus Magnesium Alkaline Phosphatase C-Reactive Protein Total Protein Albumin Vancomycin Trough 38.2 H Crossmatch 04/27/21 04/27/21 04/27/21 04:03 04:03 05:33 WBC RBC 3.20 L Hgb 8.1 L Hct 25.1 L MCV 78 L MCH 25 L Plt Count Lymph % (Auto) Seg Neutrophils % Seg Neuts % (Manual) Lymphocytes % (Manual) Nucleated RBC % Seg Neutrophils # Lymphocytes # (Manual) ABG pO2 ABG HCO3 ABG Base Excess ABG Hemoglobin VBG pH Oxyhemoglobin Sodium Potassium Chloride 112.4 H Carbon Dioxide 12 L BUN 30 H Creatinine Glucose 330 H POC Glucose 311 H Hemoglobin A1c Lactic Acid Calcium Phosphorus Magnesium Alkaline Phosphatase C-Reactive Protein Total Protein Albumin Vancomycin Trough Crossmatch 04/27/21 04/27/21 04/27/21 09:51 13:15 16:43 WBC RBC Hgb Hct MCV MCH Plt Count Lymph % (Auto) Seg Neutrophils % Seg Neuts % (Manual) Lymphocytes % (Manual) Nucleated RBC % Seg Neutrophils # Lymphocytes # (Manual) ABG pO2 ABG HCO3 ABG Base Excess ABG Hemoglobin VBG pH Oxyhemoglobin Sodium Potassium Chloride Carbon Dioxide BUN Creatinine Glucose POC Glucose 335 H 291 H 218 H Hemoglobin A1c Lactic Acid Calcium Phosphorus Magnesium Alkaline Phosphatase C-Reactive Protein Total Protein Albumin Vancomycin Trough Crossmatch 04/27/21 04/27/21 04/28/21 18:10 22:08 02:15 WBC RBC Hgb Hct MCV MCH Plt Count Lymph % (Auto) Seg Neutrophils % Seg Neuts % (Manual) Lymphocytes % (Manual) Nucleated RBC % Seg Neutrophils # Lymphocytes # (Manual) ABG pO2 ABG HCO3 ABG Base Excess ABG Hemoglobin VBG pH Oxyhemoglobin Sodium Potassium Chloride Carbon Dioxide BUN Creatinine Glucose POC Glucose 177 H 136 H 152 H Hemoglobin A1c Lactic Acid Calcium Phosphorus Magnesium Alkaline Phosphatase C-Reactive Protein Total Protein Albumin Vancomycin Trough Crossmatch 04/28/21 04/28/21 04/28/21 04:41 04:41 06:03 WBC RBC 3.50 L Hgb 8.9 L Hct 27.3 L MCV 78 L MCH 26 L Plt Count Lymph % (Auto) Seg Neutrophils % Seg Neuts % (Manual) Lymphocytes % (Manual) Nucleated RBC % Seg Neutrophils # Lymphocytes # (Manual) ABG pO2 ABG HCO3 ABG Base Excess ABG Hemoglobin VBG pH Oxyhemoglobin Sodium Potassium Chloride 113.5 H Carbon Dioxide 16 L BUN 37 H Creatinine Glucose 167 H POC Glucose 174 H Hemoglobin A1c Lactic Acid Calcium Phosphorus Magnesium Alkaline Phosphatase C-Reactive Protein Total Protein Albumin Vancomycin Trough Crossmatch 04/28/21 04/28/21 04/28/21 08:42 11:34 17:15 WBC RBC Hgb Hct MCV MCH Plt Count Lymph % (Auto) Seg Neutrophils % Seg Neuts % (Manual) Lymphocytes % (Manual) Nucleated RBC % Seg Neutrophils # Lymphocytes # (Manual) ABG pO2 ABG HCO3 ABG Base Excess ABG Hemoglobin VBG pH Oxyhemoglobin Sodium Potassium Chloride Carbon Dioxide BUN Creatinine Glucose POC Glucose 212 H 228 H 236 H Hemoglobin A1c Lactic Acid Calcium Phosphorus Magnesium Alkaline Phosphatase C-Reactive Protein Total Protein Albumin Vancomycin Trough Crossmatch 04/28/21 04/29/21 04/29/21 21:58 01:55 04:00 WBC 11.7 H RBC 3.35 L Hgb 8.5 L Hct 26.4 L MCV MCH 25 L Plt Count Lymph % (Auto) Seg Neutrophils % Seg Neuts % (Manual) Lymphocytes % (Manual) Nucleated RBC % Seg Neutrophils # Lymphocytes # (Manual) ABG pO2 ABG HCO3 ABG Base Excess ABG Hemoglobin VBG pH Oxyhemoglobin Sodium Potassium Chloride Carbon Dioxide BUN Creatinine Glucose POC Glucose 208 H 137 H Hemoglobin A1c Lactic Acid Calcium Phosphorus Magnesium Alkaline Phosphatase C-Reactive Protein Total Protein Albumin Vancomycin Trough Crossmatch 04/29/21 04/29/21 04/29/21 04:00 05:16 11:02 WBC RBC Hgb Hct MCV MCH Plt Count Lymph % (Auto) Seg Neutrophils % Seg Neuts % (Manual) Lymphocytes % (Manual) Nucleated RBC % Seg Neutrophils # Lymphocytes # (Manual) ABG pO2 ABG HCO3 ABG Base Excess ABG Hemoglobin VBG pH Oxyhemoglobin Sodium 146 H Potassium Chloride 112.4 H Carbon Dioxide BUN 41 H Creatinine Glucose 115 H POC Glucose 114 H 144 H Hemoglobin A1c Lactic Acid Calcium Phosphorus Magnesium Alkaline Phosphatase C-Reactive Protein Total Protein Albumin Vancomycin Trough Crossmatch 04/30/21 04/30/21 04/30/21 00:23 04:41 04:41 WBC 14.4 H RBC 3.12 L Hgb 7.8 L Hct 24.7 L MCV MCH 25 L Plt Count 138 L Lymph % (Auto) Seg Neutrophils % Seg Neuts % (Manual) Lymphocytes % (Manual) Nucleated RBC % Seg Neutrophils # Lymphocytes # (Manual) ABG pO2 ABG HCO3 ABG Base Excess ABG Hemoglobin VBG pH Oxyhemoglobin Sodium Potassium Chloride 108.0 H Carbon Dioxide BUN 42 H Creatinine Glucose 215 H POC Glucose 126 H Hemoglobin A1c Lactic Acid Calcium Phosphorus Magnesium Alkaline Phosphatase 171 H C-Reactive Protein Total Protein 6.1 L Albumin 1.4 L Vancomycin Trough Crossmatch 04/30/21 04/30/21 04/30/21 05:22 11:55 17:36 WBC RBC Hgb Hct MCV MCH Plt Count Lymph % (Auto) Seg Neutrophils % Seg Neuts % (Manual) Lymphocytes % (Manual) Nucleated RBC % Seg Neutrophils # Lymphocytes # (Manual) ABG pO2 ABG HCO3 ABG Base Excess ABG Hemoglobin VBG pH Oxyhemoglobin Sodium Potassium Chloride Carbon Dioxide BUN Creatinine Glucose POC Glucose 196 H 224 H 196 H Hemoglobin A1c Lactic Acid Calcium Phosphorus Magnesium Alkaline Phosphatase C-Reactive Protein Total Protein Albumin Vancomycin Trough Crossmatch 05/01/21 05/01/21 05/01/21 04:01 05:37 05:37 WBC 16.9 H RBC 2.97 L Hgb 7.4 L Hct 23.1 L MCV 78 L MCH 25 L Plt Count Lymph % (Auto) Seg Neutrophils % Seg Neuts % (Manual) Lymphocytes % (Manual) Nucleated RBC % Seg Neutrophils # Lymphocytes # (Manual) ABG pO2 ABG HCO3 ABG Base Excess ABG Hemoglobin VBG pH Oxyhemoglobin Sodium Potassium Chloride 108.4 H Carbon Dioxide BUN 41 H Creatinine Glucose 124 H POC Glucose 122 H Hemoglobin A1c Lactic Acid Calcium 8.0 L Phosphorus Magnesium Alkaline Phosphatase C-Reactive Protein Total Protein Albumin Vancomycin Trough Crossmatch 05/01/21 05/01/21 05/01/21 06:27 13:45 16:40 WBC RBC Hgb Hct MCV MCH Plt Count Lymph % (Auto) Seg Neutrophils % Seg Neuts % (Manual) Lymphocytes % (Manual) Nucleated RBC % Seg Neutrophils # Lymphocytes # (Manual) ABG pO2 ABG HCO3 ABG Base Excess ABG Hemoglobin VBG pH Oxyhemoglobin Sodium Potassium Chloride Carbon Dioxide BUN Creatinine Glucose POC Glucose 126 H 231 H 266 H Hemoglobin A1c Lactic Acid Calcium Phosphorus Magnesium Alkaline Phosphatase C-Reactive Protein Total Protein Albumin Vancomycin Trough Crossmatch 05/01/21 05/02/21 05/02/21 23:16 05:43 11:27 WBC RBC Hgb Hct MCV MCH Plt Count Lymph % (Auto) Seg Neutrophils % Seg Neuts % (Manual) Lymphocytes % (Manual) Nucleated RBC % Seg Neutrophils # Lymphocytes # (Manual) ABG pO2 ABG HCO3 ABG Base Excess ABG Hemoglobin VBG pH Oxyhemoglobin Sodium Potassium Chloride Carbon Dioxide BUN Creatinine Glucose POC Glucose 192 H 236 H 284 H Hemoglobin A1c Lactic Acid Calcium Phosphorus Magnesium Alkaline Phosphatase C-Reactive Protein Total Protein Albumin Vancomycin Trough Crossmatch 05/02/21 05/02/21 05/03/21 16:52 23:20 06:16 WBC RBC Hgb Hct MCV MCH Plt Count Lymph % (Auto) Seg Neutrophils % Seg Neuts % (Manual) Lymphocytes % (Manual) Nucleated RBC % Seg Neutrophils # Lymphocytes # (Manual) ABG pO2 ABG HCO3 ABG Base Excess ABG Hemoglobin VBG pH Oxyhemoglobin Sodium Potassium Chloride Carbon Dioxide BUN Creatinine Glucose POC Glucose 170 H 124 H 147 H Hemoglobin A1c Lactic Acid Calcium Phosphorus Magnesium Alkaline Phosphatase C-Reactive Protein Total Protein Albumin Vancomycin Trough Crossmatch 05/03/21 05/03/21 05/03/21 07:05 07:05 11:46 WBC 14.3 H RBC 2.82 L Hgb 6.8 L Hct 22.7 L MCV MCH 24 L Plt Count Lymph % (Auto) 11.8 L Seg Neutrophils % 83.3 H Seg Neuts % (Manual) Lymphocytes % (Manual) Nucleated RBC % Seg Neutrophils # 11.9 H Lymphocytes # (Manual) ABG pO2 ABG HCO3 ABG Base Excess ABG Hemoglobin VBG pH Oxyhemoglobin Sodium Potassium Chloride Carbon Dioxide BUN 39 H Creatinine Glucose 163 H POC Glucose 134 H Hemoglobin A1c Lactic Acid Calcium Phosphorus Magnesium Alkaline Phosphatase C-Reactive Protein Total Protein Albumin Vancomycin Trough Crossmatch 05/03/21 05/03/21 05/03/21 17:11 18:00 19:46 WBC RBC Hgb Hct MCV MCH Plt Count Lymph % (Auto) Seg Neutrophils % Seg Neuts % (Manual) Lymphocytes % (Manual) Nucleated RBC % Seg Neutrophils # Lymphocytes # (Manual) ABG pO2 ABG HCO3 ABG Base Excess ABG Hemoglobin VBG pH Oxyhemoglobin Sodium Potassium Chloride Carbon Dioxide BUN Creatinine Glucose POC Glucose 129 H 128 H Hemoglobin A1c Lactic Acid Calcium Phosphorus Magnesium Alkaline Phosphatase C-Reactive Protein Total Protein Albumin Vancomycin Trough Crossmatch See Detail 05/03/21 05/04/21 05/04/21 22:00 08:06 11:19 WBC RBC Hgb Hct MCV MCH Plt Count Lymph % (Auto) Seg Neutrophils % Seg Neuts % (Manual) Lymphocytes % (Manual) Nucleated RBC % Seg Neutrophils # Lymphocytes # (Manual) ABG pO2 ABG HCO3 ABG Base Excess ABG Hemoglobin VBG pH Oxyhemoglobin Sodium Potassium Chloride Carbon Dioxide BUN Creatinine Glucose POC Glucose 144 H 337 H 383 H Hemoglobin A1c Lactic Acid Calcium Phosphorus Magnesium Alkaline Phosphatase C-Reactive Protein Total Protein Albumin Vancomycin Trough Crossmatch 05/04/21 17:43 WBC RBC Hgb Hct MCV MCH Plt Count Lymph % (Auto) Seg Neutrophils % Seg Neuts % (Manual) Lymphocytes % (Manual) Nucleated RBC % Seg Neutrophils # Lymphocytes # (Manual) ABG pO2 ABG HCO3 ABG Base Excess ABG Hemoglobin VBG pH Oxyhemoglobin Sodium Potassium Chloride Carbon Dioxide BUN Creatinine Glucose POC Glucose 316 H Hemoglobin A1c Lactic Acid Calcium Phosphorus Magnesium Alkaline Phosphatase C-Reactive Protein Total Protein Albumin Vancomycin Trough Crossmatch Allied health notes reviewed: nursing
[2021-05-04] MEDS: SENNOSIDES 8.6 MG TAB PO SCH (21:11)
[2021-05-04] MEDS: HYDROmorphone 1 MG/1 ML INJ IV PRN (21:23)
[2021-05-05] MEDS: INSULIN LISPRO 100 UNIT/ML SUB-Q SCH ×5 (01:00→23:35)
[2021-05-05] MEDS: FREE WATER PO SCH ×4 (01:05→12:31)
[2021-05-05 07:20] LABS: Basophils # (Auto) 0.1 K/mm3 (0.0-0.1); Basophils % (Auto) 0.8 % (0.0-1.8); Eosinophils % (Auto) 0.4 % (0.0-4.3); Hematocrit 21.4 % (30.3-42.9); Hemoglobin 6.8 gm/dl (10.1-14.3); Lymphocytes # (Auto) 1.7 K/mm3 (1.2-5.4); Lymphocytes % (Auto) 17.4 % (13.4-35.0); Mean Corpuscular HGB Conc 32 % (30-34); Mean Corpuscular Volume 84 fl (79-97); Monocytes # (Auto) 0.5 K/mm3 (0.0-0.8); Monocytes % (Auto) 4.9 % (0.0-7.3); Platelet Count 442 K/mm3 (140-440); Red Blood Count 2.56 M/mm3 (3.65-5.03); Red Cell Distribution Width 14.9 % (13.2-15.2)
[2021-05-05 07:41] LABS: Calcium 8.4 mg/dL (8.4-10.2)
--- NOTE | 2021-05-05 08:20 | Progress Note ---
Assessment and Plan Assessment and plan: This is a 51-year-old female with DM, noncompliance, obesity, arthritis and right knee surgery admitted for DKA, oropharyngeal dysphagia on tube feeding Speech therapist following, patient has septic arthritis and severe sepsis on long-term antibiotics Rocephin total 6 weeks., Anemia with 6.8 hemoglobin, received 1 unit PRBC yesterday, this morning hemoglobin 6.8, will recheck Hb and transfuse additional PRBC if needed -Anemia; Hb 6.8-6.9 Received 1 unit PRBC yesterday 05/05/2021 This morning Hb 6.9, transfuse additional 1 unit PRBC today Check stool for occult blood, monitor H&H --Oropharyngeal dysphagia; On tube feeding, Speech therapy following start oral nutrition when speech therapist clears --Septic arthritis; knee; Ortho is planning knee/synovial debridement 04/30/2021;s/p arthrocentesis 05/03/2021 s/p Incision and drainage followed by arthroscopic exam of the right knee Continue antibiotics per ID total 6 weeks -- Sepsis, group B Streptococcus bacteremia, h/o right septic arthritis -Infectious disease consulted, appreciate recommendations -ABX therapy per ID: Ceftriaxone 2 g every 24 hours -Right knee x-ray shows large joint effusion s/p arthrocentesis Positive synovial fluid cultures, ID recommended total 6 weeks of Rocephin --Acute metabolic encephalopathy (improved significantly) Patient is more alert and awake, supportive care -Echocardiogram shows mildly dilated right heart chamber, mild to moderate TR, moderate pulmonary hypertension, RVSP 50-55, LVEF 45-50 --Respiratory: Acute hypoxic respiratory failure Nasal cannula oxygen, intermittent BiPAP Home O2 evaluation --Severe protein calorie malnutrition --Hypoalbuminemia, albumin 1.7 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 Continue tube feeding, nutrition supplements Supportive care -- Hypernatremia (resolved) Closely monitor electrolytes --Leukocytosis/trending down Secondary to sepsis, continue antibiotics and supportive care Closely monitor --S/p DKA, h/o uncontrolled DM/present on admission -Hemoglobin A1c 18.3 Blood sugars moderate control -Avoid hypoglycemia Accu-Chek sliding scale coverage tube feeding Glucerna --DVT prophylaxis Subcu Lovenox --Full CODE STATUS Will closely monitor the patient and adjust the management as needed Plan of care reviewed with the patient and her nurse Licensed Mental Health Professional recommendations noted and appreciated Brief history and daily hospital course This is a 51-year-old female with DM, OA, medication noncompliance, obesity who presented to emergency department on 04/23 with complaints of weakness, elevated blood glucose levels, nausea, polydipsia, polyuria and diminished oral intake over the past week with worsening symptoms over the past 2 days. Patient acknowledges noncompliance with oral antihyperglycemic therapy. Patient was seen and evaluated in the emergency department and found to have lab work consistent with diabetic ketoacidosis, metabolic encephalopathy, metabolic acidosis and volume depletion. Patient was admitted to the hospital service to the ICU initiated DKA protocol with CCM consult. 04/24/21- Patient remains on DKA protocol. Still very lethargic this am, following simple commands. Rt. knee wound and swelling noted, and nursing staff also reported thick, white vaginal discharge. C/f sepsis, blood culture ordered, this am UA noted. Will start patient on PO difflucan for possible yeast infection, pending culture data. Anion GAP is still 18 this am, will continue DKA protocol for now. Continue to monitor electrolytes, serial BMP ordered. 04/25/21- Patient appears to be in distress this am, now on 3L NC. Lactic acidosis worsen overnight, X1L LR bolus adminstered. Ordered placed for stat ABG s. Blood culture growing GPC 3/4 bottles, patient remains afebrile with no leukocytosis. IV abx was escalated, ID consulted. Ortho consult is still pending, order placed for XR of the Rt. knee. Given patient worsen condition and high anio, gap, will continue insulin gtt for now. Low K and mg was repleted. Continue serial BMP,mg, and phosp 04/26/21- Patient appears more alert and awake this am, talkative, and following commands. Remains on DKA protocol, gap is closedX2, will transition patient to SSI and basal insulin and initiate enteral nutrition. Patient remains afebrile overnight, continue IV Abx per ID. 04/27/21- TASHA overnight. Patient mentation continue to improve. Worsening hyperglycemia, patient is tolerating TF. 70/30 added BID and SSI was adjusted to high dose Q4hrs. D/W CCM patient is stable for transfer to [facility] 04/28/21- Patient continue to improve. Remains drowsy this am, however, easily arousable. Now on 4L NC, still requiring Q4hrs NT suction due to increased secretions and weak cough. Continue to wean O2 supplement as tolerated, F/U CXR in the am. Continue IV Abx per ID. 04/29: Patient is awake and alert with strong cough and able to clear own airway. Ortho consult for right knee aspiration pending. 04/30: No acute events reported overnight, patient will be transferred to the floor. MR of right knee ordered. 05/01; patient had arthrocentesis 05/02; ID recommended total 6 weeks of Rocephin, case management to assist with antibiotics 05/02; patient is febrile, sepsis and positive cultures, currently on Rocephin, ID following 05/03; patient remains on tube feeding, speech therapist has not cleared for oral nutrition, aspiration risk Septic arthritis awaiting synovial debridement knee joint 05/04; blood sugars are uncontrolled Lantus insulin was stopped due to surgical procedure yesterday, Resumed Novolin 70/30, closely monitor and adjust the dose as needed 05/05; patient received 1 unit of PRBC yesterday, a.m. hemoglobin remains 6.8 after transfusion, recheck H&H, transfuse additional PRBC Patient remains on tube feedings, speech therapy following, on long-term antibiotics for her septic knee total 6 weeks Disposition; follow clinically, follow consultants recommendations discharge when stable History Interval history: I have seen and examined the patient at the bedside Patient's chart and medications reviewed Patient is anxious to get the NG tube tube out , Chronically ill looking, afebrile Hospitalist Physical - Constitutional Vitals: Temp Pulse Resp BP Pulse Ox 98.1 F 96 H 20 106/53 100 05/05/21 04:32 05/05/21 07:47 05/05/21 07:47 05/05/21 04:32 05/05/21 07:47 General appearance: Present: no acute distress, well-nourished, obese, other (Chronically ill looking) - EENT Eyes: Present: PERRL, EOM intact - Neck Neck: Present: supple, normal ROM - Respiratory Respiratory effort: normal Respiratory: bilateral: diminished, rhonchi, negative: rales, wheezing - Cardiovascular Rhythm: regular Heart Sounds: Present: S1 & S2 - Extremities Extremities: no ischemia, No edema - Abdominal General gastrointestinal: soft, non-tender, non-distended, normal bowel sounds - Integumentary Integumentary: Present: clear, warm - Psychiatric Psychiatric: appropriate mood/affect, cooperative - Neurologic Neurologic: CNII-XII intact, moves all extremities HEART Score - HEART Score Troponin: Troponin T < 0.010 ng/mL (0.00-0.029) 04/23/21 10:33 Results - Labs CBC & Chem 7: 05/05/21 11:38 05/05/21 06:15 Labs: Laboratory Last Values WBC 9.5 K/mm3 (4.5-11.0) 05/05/21 06:15 RBC 2.56 M/mm3 (3.65-5.03) L 05/05/21 06:15 Hgb 6.8 gm/dl (10.1-14.3) L 05/05/21 06:15 Hct 21.4 % (30.3-42.9) L 05/05/21 06:15 MCV 84 fl (79-97) 05/05/21 06:15 MCH 27 pg (28-32) L 05/05/21 06:15 MCHC 32 % (30-34) 05/05/21 06:15 RDW 14.9 % (13.2-15.2) 05/05/21 06:15 Plt Count 442 K/mm3 (140-440) H 05/05/21 06:15 Lymph % (Auto) 17.4 % (13.4-35.0) 05/05/21 06:15 Long % (Auto) 4.9 % (0.0-7.3) 05/05/21 06:15 Eos % (Auto) 0.4 % (0.0-4.3) 05/05/21 06:15 Baso % (Auto) 0.8 % (0.0-1.8) 05/05/21 06:15 Lymph # (Auto) 1.7 K/mm3 (1.2-5.4) 05/05/21 06:15 Long # (Auto) 0.5 K/mm3 (0.0-0.8) 05/05/21 06:15 Eos # (Auto) 0.0 K/mm3 (0.0-0.4) 05/05/21 06:15 Baso # (Auto) 0.1 K/mm3 (0.0-0.1) 05/05/21 06:15 Add Manual Diff Complete 04/25/21 08:10 Total Counted 100 04/25/21 08:10 Seg Neutrophils % 76.5 % (40.0-70.0) H 05/05/21 06:15 Seg Neuts % (Manual) 33.0 % (40.0-70.0) L 04/25/21 08:10 Band Neutrophils % 23.0 % 04/25/21 08:10 Lymphocytes % (Manual) 19.0 % (13.4-35.0) 04/25/21 08:10 Reactive Lymphs % (Man) 1.0 % 04/25/21 08:10 Monocytes % (Manual) 1.0 % (0.0-7.3) 04/25/21 08:10 Eosinophils % (Manual) 1.0 % (0.0-4.3) 04/25/21 08:10 Metamyelocytes % 3.0 % 04/23/21 10:33 Myelocytes % 22.0 % 04/25/21 08:10 Nucleated RBC % Not Reportable 04/25/21 08:10 Seg Neutrophils # 7.3 K/mm3 (1.8-7.7) 05/05/21 06:15 Seg Neutrophils # Man 1.9 K/mm3 (1.8-7.7) 04/25/21 08:10 Band Neutrophils # 1.3 K/mm3 04/25/21 08:10 Lymphocytes # (Manual) 1.1 K/mm3 (1.2-5.4) L 04/25/21 08:10 Abs React Lymphs (Man) 0.1 K/mm3 04/25/21 08:10 Monocytes # (Manual) 0.1 K/mm3 (0.0-0.8) 04/25/21 08:10 Eosinophils # (Manual) 0.1 K/mm3 (0.0-0.4) 04/25/21 08:10 Basophils # (Manual) 0.0 K/mm3 (0.0-0.1) 04/25/21 08:10 Metamyelocytes # 0.0 K/mm3 04/25/21 08:10 Myelocytes # 1.3 K/mm3 04/25/21 08:10 Promyelocytes # 0.0 K/mm3 04/25/21 08:10 Blast Cells # 0.0 K/mm3 04/25/21 08:10 WBC Morphology Not Reportable 04/25/21 08:10 Hypersegmented Neuts Not Reportable 04/25/21 08:10 Hyposegmented Neuts Not Reportable 04/25/21 08:10 Hypogranular Neuts Not Reportable 04/25/21 08:10 Smudge Cells Not Reportable 04/25/21 08:10 Toxic Granulation Not Reportable 04/25/21 08:10 Toxic Vacuolation Not Reportable 04/25/21 08:10 Dohle Bodies Not Reportable 04/25/21 08:10 Pelger-Huet Anomaly Not Reportable 04/25/21 08:10 Thierry Rods Not Reportable 04/25/21 08:10 Platelet Estimate Consistent w auto 04/25/21 08:10 Clumped Platelets Not Reportable 04/25/21 08:10 Plt Clumps, EDTA Not Reportable 04/25/21 08:10 Large Platelets Not Reportable 04/25/21 08:10 Giant Platelets Not Reportable 04/25/21 08:10 Platelet Satelliting Not Reportable 04/25/21 08:10 Plt Morphology Comment Not Reportable 04/25/21 08:10 RBC Morphology Not Reportable 04/25/21 08:10 Dimorphic RBCs Not Reportable 04/25/21 08:10 Polychromasia Not Reportable 04/25/21 08:10 Hypochromasia 1+ 04/25/21 08:10 Poikilocytosis Not Reportable 04/25/21 08:10 Anisocytosis Not Reportable 04/25/21 08:10 Microcytosis Not Reportable 04/25/21 08:10 Macrocytosis Not Reportable 04/25/21 08:10 Spherocytes Not Reportable 04/25/21 08:10 Pappenheimer Bodies Not Reportable 04/25/21 08:10 Sickle Cells Not Reportable 04/25/21 08:10 Target Cells Not Reportable 04/25/21 08:10 Tear Drop Cells Not Reportable 04/25/21 08:10 Ovalocytes Not Reportable 04/25/21 08:10 Helmet Cells Not Reportable 04/25/21 08:10 [place] Bodies Not Reportable 04/25/21 08:10 [place] Rings Not Reportable 04/25/21 08:10 [place] Cells Not Reportable 04/25/21 08:10 Bite Cells Not Reportable 04/25/21 08:10 Crenated Cell Not Reportable 04/25/21 08:10 Elliptocytes Not Reportable 04/25/21 08:10 Acanthocytes (Spur) Not Reportable 04/25/21 08:10 Rouleaux Not Reportable 04/25/21 08:10 Hemoglobin C Crystals Not Reportable 04/25/21 08:10 Schistocytes Not Reportable 04/25/21 08:10 Malaria parasites Not Reportable 04/25/21 08:10 Juan Bodies Not Reportable 04/25/21 08:10 Hem Pathologist Commnt No 04/25/21 08:10 ABG pH 7.426 pH Units (7.350-7.450) 04/25/21 11:20 ABG pCO2 25.3 mm Hg 04/25/21 11:20 ABG pO2 73.2 mm Hg (80.0-90.0) L 04/25/21 11:20 ABG HCO3 16.2 mmol/L (20.0-26.0) L 04/25/21 11:20 ABG O2 Saturation 96.9 % (95.0-99.0) 04/25/21 11:20 ABG O2 Content 11.6 (0.0-44) 04/25/21 11:20 ABG Base Excess -7.1 mmol/L (-2.0-3.0) L 04/25/21 11:20 ABG Hemoglobin 8.7 gm/dl (12.0-16.0) L 04/25/21 11:20 ABG Carboxyhemoglobin 1.6 % (0.0-5.0) 04/25/21 11:20 ABG Methemoglobin 0.6 % (0.0-1.5) 04/25/21 11:20 VBG pH 7.180 (7.320-7.420) L* 04/23/21 10:33 Oxyhemoglobin 94.8 % (95.0-99.0) L 04/25/21 11:20 FiO2 28 % 04/25/21 11:20 Sodium 139 mmol/L (137-145) 05/05/21 06:15 Potassium 4.3 mmol/L (3.6-5.0) 05/05/21 06:15 Chloride 101.6 mmol/L (98-107) 05/05/21 06:15 Carbon Dioxide 26 mmol/L (22-30) 05/05/21 06:15 Anion Gap 16 mmol/L 05/05/21 06:15 BUN 52 mg/dL (7-17) H 05/05/21 06:15 Creatinine 1.2 mg/dL (0.6-1.2) 05/05/21 06:15 Estimated GFR 58 ml/min 05/05/21 06:15 BUN/Creatinine Ratio 43 % 05/05/21 06:15 Glucose 430 mg/dL (65-100) H 05/05/21 06:15 POC Glucose 395 mg/dL (70-105) H 05/05/21 06:05 Hemoglobin A1c 18.3 % (4-6) H 04/24/21 04:16 Lactic Acid 1.70 mmol/L (0.7-2.0) 04/26/21 05:02 Uric Acid 7.5 mg/dL (3.5-7.6) 04/24/21 12:14 Calcium 8.4 mg/dL (8.4-10.2) 05/05/21 06:15 Phosphorus 4.50 mg/dL (2.5-4.5) 04/30/21 04:41 Magnesium 2.10 mg/dL (1.7-2.3) 05/03/21 07:05 Total Bilirubin 0.50 mg/dL (0.1-1.2) 04/30/21 04:41 AST 12 units/L (5-40) 04/30/21 04:41 ALT 7 units/L (7-56) 04/30/21 04:41 Alkaline Phosphatase 171 units/L (35-129) H 04/30/21 04:41 Ammonia 37.0 umol/L (25-60) 04/23/21 10:33 Total Creatine Kinase 83 units/L (30-135) 04/23/21 10:33 Troponin T < 0.010 ng/mL (0.00-0.029) 04/23/21 10:33 C-Reactive Protein 24.30 mg/dL (0.00-1.30) H 04/24/21 18:24 Total Protein 6.1 g/dL (6.3-8.2) L 04/30/21 04:41 Albumin 1.4 g/dL (3.9-5) L 04/30/21 04:41 Albumin/Globulin Ratio 0.3 % 04/30/21 04:41 Procalcitonin 21.10 ng/mL (<0.15) 04/24/21 12:14 TSH 1.400 mlU/mL (0.270-4.200) 04/23/21 10:33 Urine Color Katie (Yellow) 04/27/21 16:16 Urine Turbidity Cloudy (Clear) 04/27/21 16:16 Urine pH 5.0 (5.0-7.0) 04/27/21 16:16 Ur Specific [place] 1.014 (1.003-1.030) 04/27/21 16:16 Urine Protein <15 mg/dl mg/dL (Negative) 04/27/21 16:16 Urine Glucose (UA) >=500 mg/dL (Negative) 04/27/21 16:16 Urine Ketones Neg mg/dL (Negative) 04/27/21 16:16 Urine Blood Neg (Negative) 04/27/21 16:16 Urine Nitrite Neg (Negative) 04/27/21 16:16 Urine Bilirubin Neg (Negative) 04/27/21 16:16 Urine Urobilinogen 2.0 mg/dL (<2.0) 04/27/21 16:16 Ur Leukocyte Esterase Neg (Negative) 04/27/21 16:16 Urine WBC (Auto) 1.0 /HPF (0.0-6.0) 04/27/21 16:16 Urine RBC (Auto) 1.0 /HPF (0.0-6.0) 04/27/21 16:16 U Epithel Cells (Auto) < 1.0 /HPF (0-13.0) 04/24/21 08:40 Urine Bacteria (Auto) 1+ /HPF (Negative) 04/27/21 16:16 Amorphous Crystals Few 04/27/21 16:16 Urine Yeast (Budding) 3+ /HPF 04/27/21 16:16 Vancomycin Trough 38.2 ug/mL (5.0-20.0) H 04/26/21 19:27 Coronavirus (PCR) Negative (Negative) 04/25/21 Unknown Blood Type A POSITIVE 05/03/21 18:00 Antibody Screen Negative 05/03/21 18:00 Crossmatch See Detail 05/03/21 18:00 Microbiology: Microbiology 05/03/21 Unknown Knee - Right Surgical Culture - Preliminary Sanchez/IV: Voiding Method Indwelling Catheter Active Medications - Current Medications Current Medications: Generic Name Dose Route Start Last Admin Trade Name Freq PRN Reason Stop Dose Admin Acetaminophen 650 mg 04/23/21 11:54 05/02/21 18:33 Acetaminophen 325 Mg Tab PO 650 mg Q6H PRN Administration Pain MILD(1-3)/Fever >100.5/SMITH Albuterol 2.5 mg 05/02/21 12:56 05/02/21 21:17 Albuterol 2.5 Mg/3 Ml Nebu IH 2.5 mg Q4HRT PRN Administration Shortness Of Breath Lipase/Protease/Amylase 1 each 04/29/21 15:42 Lipase 10,500/Protease 25,000/Amylase 43,750 (Units) Dr Rodriguez FEEDTUBE PRN PRN For Clogged Feeding Tube Dextrose 50 ml 04/26/21 14:00 Dextrose 50% In Water (25gm) 50 Ml Syringe IV Q30MIN PRN Hypoglycemia Protocol Enoxaparin Sodium 40 mg 04/24/21 22:00 05/04/21 21:11 Enoxaparin 40 Mg/0.4 Ml Inj SUB-Q 40 mg BID AMIRA Administration Protocol Famotidine 20 mg 04/29/21 10:00 05/04/21 10:34 Famotidine 20 Mg Tab FEEDTUBE 20 mg DAILY AMIRA Administration Hydromorphone HCl 0.5 mg 04/23/21 11:54 05/04/21 21:23 Hydromorphone 1 Mg/1 Ml Inj IV 0.5 mg Q23H PRN Administration Pain , Severe (7-10) Cefazolin Sodium 2 gm/ Sodium 100 mls @ 200 mls/hr 05/02/21 14:00 05/04/21 21:43 Chloride IV Infused Q6H AMIRA Infusion Protocol Insulin Human Isoph/Insulin Regular 48 unit 05/02/21 09:30 05/04/21 18:35 Insulin Nph/Regular 70/30 Inj SUB-Q 48 unit BIDDIAB AMIRA Administration Insulin Human Lispro 0 unit 04/29/21 12:00 05/05/21 06:56 Insulin Lispro 100 Unit/Ml SUB-Q 10 unit Q6HR AMIRA Administration Protocol Ketorolac Tromethamine 15 mg 05/03/21 18:59 Ketorolac 30 Mg/1 Ml Inj IV 05/08/21 18:58 Q6H PRN Pain, Moderate (4-6) Morphine Sulfate 2 mg 05/03/21 18:59 05/03/21 23:04 Morphine 2 Mg/1 Ml Inj IV 2 mg Q4H PRN Administration Pain, Moderate (4-6) Morphine Sulfate 4 mg 05/03/21 18:59 Morphine 4 Mg/1 Ml Inj IV Q4H PRN Pain , Severe (7-10) Oxycodone/Acetaminophen 1 tab 04/23/21 11:54 05/01/21 17:38 Oxycodone /Acetaminophen 5-325mg Tab PO 1 tab Q16H PRN Administration Pain, Moderate (4-6) Senna 17.2 mg 04/25/21 22:00 05/04/21 21:11 Sennosides 8.6 Mg Tab PO 17.2 mg QHS AMIRA Administration Simple Syrup 15 ml 04/29/21 15:42 Simple Syrup 15 Ml FEEDTUBE PRN PRN Hypoglycemia Simple Syrup 30 ml 04/29/21 15:42 Simple Syrup 15 Ml FEEDTUBE PRN PRN Hypoglycemia Sodium Bicarbonate 325 mg 04/29/21 15:42 Sodium Bicarbonate 325 Mg Tab FEEDTUBE PRN PRN For Clogged Feeding Tube Sodium Chloride 10 ml 04/23/21 22:00 05/04/21 21:12 Sodium Chloride 0.9% 10 Ml Flush Syringe IV 10 ml BID AMIRA Administration Sodium Chloride 10 ml 04/23/21 11:54 04/24/21 11:15 Sodium Chloride 0.9% 10 Ml Flush Syringe IV 10 ml PRN PRN Administration LINE FLUSH Sodium Chloride 10 ml 05/03/21 19:00 Sodium Chloride 0.9% 10 Ml Flush Syringe IV PRN AMIRA Nutrition/Malnutrition Assess - Dietary Evaluation Nutrition/Malnutrition Findings: Nutrition Notes Start: 04/26/21 09:53 Freq: Status: Active Protocol: Document 05/03/21 12:59 HOANG (Rec: 05/03/21 13:05 HOANG [id number]) Nutrition Notes Initial or Follow up Reassessment Current Diagnosis Diabetes Other Pertinent Diagnosis DKA, OA, (R) knee septic arthritis Current Diet NPO Labs/Tests BUN 39 BG 163 POC Glu range since last assessment: 126-284 Pertinent Medications Reviewed Height 5 ft 8 in Weight 158.6 kg [place] Body Weight (kg) 63.63 BMI 53.1 Weight Status Morbidly Obese Subjective/Other Information Pt scheduled for (R) knee wound debridement today. Per RN notes, pt was tolerating TF at goal rate of 65ml/hr last pm. #1 Nutrition Diagnosis Inadequate oral intake Diagnosis Progress(for reassessment Continues documentation) Is patient on ventilator? No Is Patient Ambulatory and/or Out of Bed No REE-([place]-confined to bed) 2708.292 Kcal/Kg value to use for calculation 11 Approximate Energy Requirements Using 1745 kcal/Kg Calculation Used for Recommendations Kcal/kg Additional Notes Pro needs 1.25-1.5g/kg adjBW: 139-167g/day Fluid needs 1ml/kcal Nutrition Intervention Nutrition Support: Resume Glucerna 1.2 at 65ml/hr with 100ml water flush q4h. Kcal 1,872 Protein (gm) 94 Carbohydrates (gm) 179 Fat (gm) 94 Fluid (mL) 1,256 Fiber (gm) 25 Goal #1 Resume TF to meet nutrient needs Follow-Up By: 05/06/21 Additional Comments F/U: TF restart
[2021-05-05] MEDS: INSULIN NPH/REGULAR 70/30 INJ SUB-Q SCH (08:53)
[2021-05-05] MEDS: ENOXAPARIN 40 MG/0.4 ML INJ SUB-Q SCH (11:51)
[2021-05-05] MEDS: oxyCODONE /ACETAMINOPHEN 5-325MG TAB PO PRN (11:51)
[2021-05-05] MEDS: FAMOTIDINE 20 MG TAB FEEDTUBE SCH (11:51)
[2021-05-05 11:58] LABS: Hematocrit 22.7 % (30.3-42.9); Hemoglobin 6.9 gm/dl (10.1-14.3)
--- NOTE | 2021-05-05 16:08 | Progress Note ---
Assessment and Plan Continue IV antibiotics and observation Subjective Date of service: 05/05/21 Principal diagnosis: HAGMA; DKA; AMS; Obesity; Osteoarthritis; Hypercalcemia Interval history: looking better each day...c/o mild knee pain now Objective Vital signs: Vital Signs - 12hr 05/05/21 05/05/21 04:32 07:47 Temperature 98.1 F Pulse Rate 90 Pulse Rate [ 96 H From Monitor] Respiratory 20 Rate Blood Pressure 106/53 [Right] O2 Sat by Pulse 93 100 Oximetry Narrative Exam: afebrile, WBC's down... - Labs CBC & BMP: 05/05/21 11:38 05/05/21 06:15 Labs: Abnormal lab results 05/03/21 05/04/21 05/04/21 Range/Units 18:00 17:43 23:01 RBC (3.65-5.03) M/mm3 Hgb (10.1-14.3) gm/dl Hct (30.3-42.9) % MCH (28-32) pg Plt Count (140-440) K/mm3 Seg Neutrophils % (40.0-70.0) % BUN (7-17) mg/dL Glucose (65-100) mg/dL POC Glucose 316 H 320 H (70-105) mg/dL Crossmatch See Detail 05/05/21 05/05/21 05/05/21 Range/Units 06:05 06:15 06:15 RBC 2.56 L (3.65-5.03) M/mm3 Hgb 6.8 L (10.1-14.3) gm/dl Hct 21.4 L (30.3-42.9) % MCH 27 L (28-32) pg Plt Count 442 H (140-440) K/mm3 Seg Neutrophils % 76.5 H (40.0-70.0) % BUN 52 H (7-17) mg/dL Glucose 430 H (65-100) mg/dL POC Glucose 395 H (70-105) mg/dL Crossmatch 05/05/21 05/05/21 Range/Units 11:38 11:47 RBC (3.65-5.03) M/mm3 Hgb 6.9 L (10.1-14.3) gm/dl Hct 22.7 L (30.3-42.9) % MCH (28-32) pg Plt Count (140-440) K/mm3 Seg Neutrophils % (40.0-70.0) % BUN (7-17) mg/dL Glucose (65-100) mg/dL POC Glucose 307 H (70-105) mg/dL Crossmatch
[2021-05-05] MEDS ORDERED: SODIUM BICARBONATE 650 MG TAB ONE (20:38)
[2021-05-05] MEDS: SENNOSIDES 8.6 MG TAB PO SCH (23:00)
[2021-05-06] MEDS: FREE WATER PO SCH ×11 (00:46→21:58)
[2021-05-06] MEDS: INSULIN LISPRO 100 UNIT/ML SUB-Q SCH ×6 (06:50→23:39)
[2021-05-06 08:40] LABS: Hematocrit 21.8 % (30.3-42.9)
[2021-05-06] MEDS ORDERED: SODIUM CHLORIDE 0.9% 500 ML 500 ML ONE (09:03)
[2021-05-06] MEDS ORDERED: SODIUM CHLORIDE 0.9% 500 ML 500 ML IV ONE (09:36)
[2021-05-06] MEDS: oxyCODONE /ACETAMINOPHEN 5-325MG TAB PO PRN ×2 (09:37→15:07)
[2021-05-06] MEDS: FAMOTIDINE 20 MG TAB FEEDTUBE SCH (09:38)
[2021-05-06] MEDS: INSULIN NPH/REGULAR 70/30 INJ SUB-Q SCH ×3 (09:38→18:15)
--- NOTE | 2021-05-06 12:23 | Progress Note ---
Assessment and Plan Cultures: 04/24/2021 Blood culture: GBS Blood culture 04/26/2021: No growth 04/30/2021 R knee synovial fluid culture: Group B Streptococcus A/P: 51 yo F with DM2, HTN, morbid obesity presented with sepsis #Acute sepsis: secondary to group B streptococcus bacteremia, source is R knee. #Group B streptococcus bacteremia: Reports a history of previous right knee septic arthritis and has been treated with antibiotics at least twice in the past. X-ray shows large joint effusion. TTE without any evidence of valvular vegetations/endocarditis. Arthrocentesis culture also positive. Status post I&D followed by arthroscopic examination of right knee on 05/03/2021, as per operative note, "entered the joint proper with return of copious amounts of purulent material" and "significant cartilage degeneration from repeated infections" #DM2: tight glycemic control for best outcomes. #Right knee wound/?septic arthritis Recs: -continue higher dose IV Ancef due to her morbid obesity -will need a longer ~6 weeks course of IV abx after surgery due to her history of recurrence / chronicity and possibility of osteomyelitis, extensive cartilage degeneration. -post surgery, plan for 6 weeks of IV Ceftriaxone ending 06/14/2021, CM orders have already been placed Holly Leroy MD, FACP, [facility] O: [phone] F: [phone] Subjective Date of service: 05/06/21 Principal diagnosis: HAGMA; DKA; AMS; Obesity; Osteoarthritis; Hypercalcemia Interval history: No complaints. Underwent I&D on 05/03/2021. Objective - Exam Narrative Exam: Physical Exam: Constitutional: Alert, cooperative. No acute distress Head, Ears, Nose: Normocephalic, atraumatic. External ears, nose normal Eyes: Conjunctivae/corneas clear. No icterus. No ptosis. Neck: Supple, no meningeal signs Cardiovascular: S1, S2 + Respiratory: Good air entry, clear to auscultation bilaterally GI: Soft, non-tender; bowel sounds normal. No peritoneal signs Musculoskeletal: Right knee with dressing + Skin: No rash or abscess Hem/Lymphatic: No palpable cervical or supraclavicular nodes. No lymphangitis Psych: Mood ok. Affect normal Neurological: Awake, alert, oriented. No gross abnormality - Constitutional Vitals: Vital Signs Temp Pulse Resp BP Pulse Ox 98.4 F 83 16 127/64 97 05/05/21 20:34 05/05/21 20:34 05/05/21 20:34 05/05/21 20:34 05/05/21 22:00 Temperature -Last 24 Hours Temperature 98.4 F - Labs CBC & Chem 7: 05/06/21 07:52 05/05/21 06:15 Labs: Abnormal lab results 05/03/21 05/05/21 05/06/21 Range/Units 18:00 23:07 06:44 Hgb (10.1-14.3) gm/dl Hct (30.3-42.9) % POC Glucose 141 H 147 H (70-105) mg/dL Crossmatch See Detail 05/06/21 Range/Units 07:52 Hgb 7.0 L (10.1-14.3) gm/dl Hct 21.8 L (30.3-42.9) % POC Glucose (70-105) mg/dL Crossmatch
--- NOTE | 2021-05-06 13:28 | History and Physical Report ---
History of Present Illness Date of examination: 05/06/21 Date of admission: 04/23/21 11:54 Past History Past Medical History: arthritis, diabetes Past Surgical History: , Other (Right knee surgery) Social history: single. denies: smoking, alcohol abuse, prescription drug abuse Family history: diabetes, hypertension Medications and Allergies Allergies Allergy/AdvReac Type Severity Reaction Status Date / Time No Known Allergies Allergy Verified 08/21/18 13:05 Home Medications Medication Instructions Recorded Confirmed Last Taken Type Insulin Regular, Human [Humulin R] See Protocol IJ ACHS 30 Days vial 08/30/18 05/03/21 04/24/21 Rx Insulin Lispro [Humalog] 0 unit SUB-Q Q6HR #1 vial 01/04/20 05/03/21 04/29/21 Rx ALBUTEROL NEB's [Proventil 0.083% 0 mg IH Q4H PRN 04/29/21 05/03/21 04/29/21 History NEBS] Acetaminophen [Acetaminophen TAB] 0 mg PO Q4H PRN 04/29/21 04/29/21 Unknown History Amlodipine Besylate [Norvasc] 0 mg PO DAILY 04/29/21 04/29/21 Unknown History Apixaban [Eliquis] 0 mg PO QDAY 04/29/21 04/29/[address] [Gale James] 0 mg PO BID 04/29/21 04/29/21 Unknown History Insulin NPH/Regular [NovoLIN 70/30] 0 unit SUB-Q BIDDIAB 04/29/21 04/29/21 Unknown History Sennosides Tab [Senokot] 0 mg PO Q12HR 04/29/21 04/29/21 Unknown History hydrALAZINE [Apresoline TAB] 0 mg PO Q8HR 04/29/21 04/29/21 Unknown History oxyCODONE /ACETAMINOPHEN [Percocet 0 tab PO Q6H PRN 04/29/21 04/29/21 Unknown History 5/325 mg] Active Meds: Active Medications Acetaminophen (Acetaminophen 325 Mg Tab) 650 mg PO Q6H PRN PRN Reason: Pain MILD(1-3)/Fever >100.5/SMITH Last Admin: 05/02/21 18:33 Dose: 650 mg Documented by: Albuterol (Albuterol 2.5 Mg/3 Ml Nebu) 2.5 mg IH Q4HRT PRN PRN Reason: Shortness Of Breath Last Admin: 05/02/21 21:17 Dose: 2.5 mg Documented by: Lipase/Protease/Amylase (Lipase 10,500/Protease 25,000/Amylase 43,750 (Units) Dr Rodriguez) 1 each FEEDTUBE PRN PRN PRN Reason: For Clogged Feeding Tube Last Admin: 05/05/21 20:40 Dose: 1 each Documented by: Dextrose (Dextrose 50% In Water (25gm) 50 Ml Syringe) 50 ml IV Q30MIN PRN; Protocol PRN Reason: Hypoglycemia Famotidine (Famotidine 20 Mg Tab) 20 mg FEEDTUBE DAILY [facility] Last Admin: 05/06/21 09:38 Dose: 20 mg Documented by: Hydromorphone HCl (Hydromorphone 1 Mg/1 Ml Inj) 0.5 mg IV Q23H PRN PRN Reason: Pain , Severe (7-10) Last Admin: 05/04/21 21:23 Dose: 0.5 mg Documented by: Cefazolin Sodium 2 gm/ Sodium (Chloride) 100 mls @ 200 mls/hr IV Q6H [facility]; Protocol Stop: 06/14/21 20:29 Last Admin: 05/06/21 02:10 Dose: 200 mls/hr Documented by: Insulin Human Isoph/Insulin Regular (Insulin Nph/Regular 70/30 Inj) 48 unit SUB-Q BIDDIAB [facility] Last Admin: 05/06/21 09:38 Dose: 48 unit Documented by: Insulin Human Lispro (Insulin Lispro 100 Unit/Ml) 0 unit SUB-Q Q6HR [facility]; Protocol Last Admin: 05/06/21 06:50 Dose: Not Given Documented by: Ketorolac Tromethamine (Ketorolac 30 Mg/1 Ml Inj) 15 mg IV Q6H PRN PRN Reason: Pain, Moderate (4-6) Stop: 05/08/21 18:58 Morphine Sulfate (Morphine 2 Mg/1 Ml Inj) 2 mg IV Q4H PRN PRN Reason: Pain, Moderate (4-6) Last Admin: 05/03/21 23:04 Dose: 2 mg Documented by: Morphine Sulfate (Morphine 4 Mg/1 Ml Inj) 4 mg IV Q4H PRN PRN Reason: Pain , Severe (7-10) Oxycodone/Acetaminophen (Oxycodone /Acetaminophen 5-325mg Tab) 1 tab PO Q16H PRN PRN Reason: Pain, Moderate (4-6) Last Admin: 05/06/21 09:37 Dose: 1 tab Documented by: Senna (Sennosides 8.6 Mg Tab) 17.2 mg PO QHS [facility] Last Admin: 05/05/21 23:00 Dose: Not Given Documented by: Simple Syrup (Simple Syrup 15 Ml) 15 ml FEEDTUBE PRN PRN PRN Reason: Hypoglycemia Simple Syrup (Simple Syrup 15 Ml) 30 ml FEEDTUBE PRN PRN PRN Reason: Hypoglycemia Sodium Bicarbonate (Sodium Bicarbonate 325 Mg Tab) 325 mg FEEDTUBE PRN PRN PRN Reason: For Clogged Feeding Tube Sodium Chloride (Sodium Chloride 0.9% 10 Ml Flush Syringe) 10 ml IV BID [facility] Last Admin: 05/05/21 22:44 Dose: 10 ml Documented by: Sodium Chloride (Sodium Chloride 0.9% 10 Ml Flush Syringe) 10 ml IV PRN PRN PRN Reason: LINE FLUSH Last Admin: 04/24/21 11:15 Dose: 10 ml Documented by: Sodium Chloride (Sodium Chloride 0.9% 10 Ml Flush Syringe) 10 ml IV PRN [facility] Exam - Constitutional Vitals: Temp Pulse Resp BP Pulse Ox 97.9 F 100 H 16 129/60 98 05/06/21 04:38 05/06/21 10:40 05/06/21 10:40 05/06/21 11:45 05/06/21 10:40 General appearance: Present: no acute distress, well-nourished - EENT Eyes: Present: PERRL ENT: hearing intact, clear oral mucosa - Neck Neck: Present: supple, normal ROM - Respiratory Respiratory effort: normal Respiratory: bilateral: CTA - Cardiovascular Heart Sounds: Present: S1 & S2. Absent: rub, click - Extremities Extremities: pulses symmetrical, No edema Peripheral Pulses: within normal limits - Abdominal General gastrointestinal: Present: soft, non-tender, non-distended, normal bowel sounds Female genitourinary: Present: normal - Integumentary Integumentary: Present: clear, warm, dry - Musculoskeletal Musculoskeletal: gait normal, strength equal bilaterally - Psychiatric Psychiatric: appropriate mood/affect, intact judgment & insight - Neurologic Neurologic: CNII-XII intact, moves all extremities HEART Score - HEART Score Troponin: Troponin T < 0.010 ng/mL (0.00-0.029) 04/23/21 10:33 Results - Labs CBC & Chem 7: 05/06/21 07:52 05/05/21 06:15 Labs: Laboratory Last Values WBC 9.5 K/mm3 (4.5-11.0) 05/05/21 06:15 RBC 2.56 M/mm3 (3.65-5.03) L 05/05/21 06:15 Hgb 7.0 gm/dl (10.1-14.3) L 05/06/21 07:52 Hct 21.8 % (30.3-42.9) L 05/06/21 07:52 MCV 84 fl (79-97) 05/05/21 06:15 MCH 27 pg (28-32) L 05/05/21 06:15 MCHC 32 % (30-34) 05/05/21 06:15 RDW 14.9 % (13.2-15.2) 05/05/21 06:15 Plt Count 442 K/mm3 (140-440) H 05/05/21 06:15 Lymph % (Auto) 17.4 % (13.4-35.0) 05/05/21 06:15 [place] % (Auto) 4.9 % (0.0-7.3) 05/05/21 06:15 Eos % (Auto) 0.4 % (0.0-4.3) 05/05/21 06:15 Baso % (Auto) 0.8 % (0.0-1.8) 05/05/21 06:15 Lymph # (Auto) 1.7 K/mm3 (1.2-5.4) 05/05/21 06:15 [place] # (Auto) 0.5 K/mm3 (0.0-0.8) 05/05/21 06:15 Eos # (Auto) 0.0 K/mm3 (0.0-0.4) 05/05/21 06:15 Baso # (Auto) 0.1 K/mm3 (0.0-0.1) 05/05/21 06:15 Add Manual Diff Complete 04/25/21 08:10 Total Counted 100 04/25/21 08:10 Seg Neutrophils % 76.5 % (40.0-70.0) H 05/05/21 06:15 Seg Neuts % (Manual) 33.0 % (40.0-70.0) L 04/25/21 08:10 Band Neutrophils % 23.0 % 04/25/21 08:10 Lymphocytes % (Manual) 19.0 % (13.4-35.0) 04/25/21 08:10 Reactive Lymphs % (Man) 1.0 % 04/25/21 08:10 Monocytes % (Manual) 1.0 % (0.0-7.3) 04/25/21 08:10 Eosinophils % (Manual) 1.0 % (0.0-4.3) 04/25/21 08:10 Metamyelocytes % 3.0 % 04/23/21 10:33 Myelocytes % 22.0 % 04/25/21 08:10 Nucleated RBC % Not Reportable 04/25/21 08:10 Seg Neutrophils # 7.3 K/mm3 (1.8-7.7) 05/05/21 06:15 Seg Neutrophils # Man 1.9 K/mm3 (1.8-7.7) 04/25/21 08:10 Band Neutrophils # 1.3 K/mm3 04/25/21 08:10 Lymphocytes # (Manual) 1.1 K/mm3 (1.2-5.4) L 04/25/21 08:10 Abs React Lymphs (Man) 0.1 K/mm3 04/25/21 08:10 Monocytes # (Manual) 0.1 K/mm3 (0.0-0.8) 04/25/21 08:10 Eosinophils # (Manual) 0.1 K/mm3 (0.0-0.4) 04/25/21 08:10 Basophils # (Manual) 0.0 K/mm3 (0.0-0.1) 04/25/21 08:10 Metamyelocytes # 0.0 K/mm3 04/25/21 08:10 Myelocytes # 1.3 K/mm3 04/25/21 08:10 Promyelocytes # 0.0 K/mm3 04/25/21 08:10 Blast Cells # 0.0 K/mm3 04/25/21 08:10 WBC Morphology Not Reportable 04/25/21 08:10 Hypersegmented Neuts Not Reportable 04/25/21 08:10 Hyposegmented Neuts Not Reportable 04/25/21 08:10 Hypogranular Neuts Not Reportable 04/25/21 08:10 Smudge Cells Not Reportable 04/25/21 08:10 Toxic Granulation Not Reportable 04/25/21 08:10 Toxic Vacuolation Not Reportable 04/25/21 08:10 Dohle Bodies Not Reportable 04/25/21 08:10 Pelger-Huet Anomaly Not Reportable 04/25/21 08:10 Thierry Rods Not Reportable 04/25/21 08:10 Platelet Estimate Consistent w auto 04/25/21 08:10 Clumped Platelets Not Reportable 04/25/21 08:10 Plt Clumps, EDTA Not Reportable 04/25/21 08:10 Large Platelets Not Reportable 04/25/21 08:10 Giant Platelets Not Reportable 04/25/21 08:10 Platelet Satelliting Not Reportable 04/25/21 08:10 Plt Morphology Comment Not Reportable 04/25/21 08:10 RBC Morphology Not Reportable 04/25/21 08:10 Dimorphic RBCs Not Reportable 04/25/21 08:10 Polychromasia Not Reportable 04/25/21 08:10 Hypochromasia 1+ 04/25/21 08:10 Poikilocytosis Not Reportable 04/25/21 08:10 Anisocytosis Not Reportable 04/25/21 08:10 Microcytosis Not Reportable 04/25/21 08:10 Macrocytosis Not Reportable 04/25/21 08:10 Spherocytes Not Reportable 04/25/21 08:10 Pappenheimer Bodies Not Reportable 04/25/21 08:10 Sickle Cells Not Reportable 04/25/21 08:10 Target Cells Not Reportable 04/25/21 08:10 Tear Drop Cells Not Reportable 04/25/21 08:10 Ovalocytes Not Reportable 04/25/21 08:10 Helmet Cells Not Reportable 04/25/21 08:10 [place] Bodies Not Reportable 04/25/21 08:10 [place] Rings Not Reportable 04/25/21 08:10 Kamari Cells Not Reportable 04/25/21 08:10 Bite Cells Not Reportable 04/25/21 08:10 Crenated Cell Not Reportable 04/25/21 08:10 Elliptocytes Not Reportable 04/25/21 08:10 Acanthocytes (Spur) Not Reportable 04/25/21 08:10 Rouleaux Not Reportable 04/25/21 08:10 Hemoglobin C Crystals Not Reportable 04/25/21 08:10 Schistocytes Not Reportable 04/25/21 08:10 Malaria parasites Not Reportable 04/25/21 08:10 Juan Bodies Not Reportable 04/25/21 08:10 Hem Pathologist Commnt No 04/25/21 08:10 ABG pH 7.426 pH Units (7.350-7.450) 04/25/21 11:20 ABG pCO2 25.3 mm Hg 04/25/21 11:20 ABG pO2 73.2 mm Hg (80.0-90.0) L 04/25/21 11:20 ABG HCO3 16.2 mmol/L (20.0-26.0) L 04/25/21 11:20 ABG O2 Saturation 96.9 % (95.0-99.0) 04/25/21 11:20 ABG O2 Content 11.6 (0.0-44) 04/25/21 11:20 ABG Base Excess -7.1 mmol/L (-2.0-3.0) L 04/25/21 11:20 ABG Hemoglobin 8.7 gm/dl (12.0-16.0) L 04/25/21 11:20 ABG Carboxyhemoglobin 1.6 % (0.0-5.0) 04/25/21 11:20 ABG Methemoglobin 0.6 % (0.0-1.5) 04/25/21 11:20 VBG pH 7.180 (7.320-7.420) L* 04/23/21 10:33 Oxyhemoglobin 94.8 % (95.0-99.0) L 04/25/21 11:20 FiO2 28 % 04/25/21 11:20 Sodium 139 mmol/L (137-145) 05/05/21 06:15 Potassium 4.3 mmol/L (3.6-5.0) 05/05/21 06:15 Chloride 101.6 mmol/L (98-107) 05/05/21 06:15 Carbon Dioxide 26 mmol/L (22-30) 05/05/21 06:15 Anion Gap 16 mmol/L 05/05/21 06:15 BUN 52 mg/dL (7-17) H 05/05/21 06:15 Creatinine 1.2 mg/dL (0.6-1.2) 05/05/21 06:15 Estimated GFR 58 ml/min 05/05/21 06:15 BUN/Creatinine Ratio 43 % 05/05/21 06:15 Glucose 430 mg/dL (65-100) H 05/05/21 06:15 POC Glucose 200 mg/dL (70-105) H 05/06/21 12:27 Hemoglobin A1c 18.3 % (4-6) H 04/24/21 04:16 Lactic Acid 1.70 mmol/L (0.7-2.0) 04/26/21 05:02 Uric Acid 7.5 mg/dL (3.5-7.6) 04/24/21 12:14 Calcium 8.4 mg/dL (8.4-10.2) 05/05/21 06:15 Phosphorus 4.50 mg/dL (2.5-4.5) 04/30/21 04:41 Magnesium 2.10 mg/dL (1.7-2.3) 05/03/21 07:05 Total Bilirubin 0.50 mg/dL (0.1-1.2) 04/30/21 04:41 AST 12 units/L (5-40) 04/30/21 04:41 ALT 7 units/L (7-56) 04/30/21 04:41 Alkaline Phosphatase 171 units/L (35-129) H 04/30/21 04:41 Ammonia 37.0 umol/L (25-60) 04/23/21 10:33 Total Creatine Kinase 83 units/L (30-135) 04/23/21 10:33 Troponin T < 0.010 ng/mL (0.00-0.029) 04/23/21 10:33 C-Reactive Protein 24.30 mg/dL (0.00-1.30) H 04/24/21 18:24 Total Protein 6.1 g/dL (6.3-8.2) L 04/30/21 04:41 Albumin 1.4 g/dL (3.9-5) L 04/30/21 04:41 Albumin/Globulin Ratio 0.3 % 04/30/21 04:41 Procalcitonin 21.10 ng/mL (<0.15) 04/24/21 12:14 TSH 1.400 mlU/mL (0.270-4.200) 04/23/21 10:33 Urine Color Katie (Yellow) 04/27/21 16:16 Urine Turbidity Cloudy (Clear) 04/27/21 16:16 Urine pH 5.0 (5.0-7.0) 04/27/21 16:16 Ur Specific [place] 1.014 (1.003-1.030) 04/27/21 16:16 Urine Protein <15 mg/dl mg/dL (Negative) 04/27/21 16:16 Urine Glucose (UA) >=500 mg/dL (Negative) 04/27/21 16:16 Urine Ketones Neg mg/dL (Negative) 04/27/21 16:16 Urine Blood Neg (Negative) 04/27/21 16:16 Urine Nitrite Neg (Negative) 04/27/21 16:16 Urine Bilirubin Neg (Negative) 04/27/21 16:16 Urine Urobilinogen 2.0 mg/dL (<2.0) 04/27/21 16:16 Ur Leukocyte Esterase Neg (Negative) 04/27/21 16:16 Urine WBC (Auto) 1.0 /HPF (0.0-6.0) 04/27/21 16:16 Urine RBC (Auto) 1.0 /HPF (0.0-6.0) 04/27/21 16:16 U Epithel Cells (Auto) < 1.0 /HPF (0-13.0) 04/24/21 08:40 Urine Bacteria (Auto) 1+ /HPF (Negative) 04/27/21 16:16 Amorphous Crystals Few 04/27/21 16:16 Urine Yeast (Budding) 3+ /HPF 04/27/21 16:16 Vancomycin Trough 38.2 ug/mL (5.0-20.0) H 04/26/21 19:27 Coronavirus (PCR) Negative (Negative) 04/25/21 Unknown Blood Type A POSITIVE 05/03/21 18:00 Antibody Screen Negative 05/03/21 18:00 Crossmatch See Detail 05/03/21 18:00 Microbiology: Microbiology 05/03/21 Unknown Knee - Right Anaerobic Culture - Preliminary 05/03/21 Unknown Knee - Right Surgical Culture - Preliminary Sanchez/IV: Voiding Method Indwelling Catheter Assessment and Plan Advance Directives: Yes
--- NOTE | 2021-05-06 13:30 | Progress Note ---
Assessment and Plan Assessment and Plan Assessment and plan: This is a 51-year-old female with DM, noncompliance, obesity, arthritis and right knee surgery admitted for DKA, oropharyngeal dysphagia on tube feeding Speech therapist following, patient has septic arthritis and severe sepsis on long-term antibiotics Rocephin total 6 weeks., Anemia with 6.8 hemoglobin, received 1 unit PRBC yesterday, this morning hemoglobin 6.8, will recheck Hb and transfuse additional PRBC if needed -Anemia; Hb 6.8-6.9 Received 1 unit PRBC yesterday 05/05/2021 This morning Hb 6.9, transfuse additional 1 unit PRBC today Check stool for occult blood, monitor H&H --Oropharyngeal dysphagia; On tube feeding, Speech therapy following start oral nutrition when speech therapist clears --Septic arthritis; knee; Ortho is planning knee/synovial debridement 04/30/2021;s/p arthrocentesis 05/03/2021 s/p Incision and drainage followed by arthroscopic exam of the right knee Continue antibiotics per ID total 6 weeks -- Sepsis, group B Streptococcus bacteremia, h/o right septic arthritis -Infectious disease consulted, appreciate recommendations -ABX therapy per ID: Ceftriaxone 2 g every 24 hours -Right knee x-ray shows large joint effusion s/p arthrocentesis Positive synovial fluid cultures, ID recommended total 6 weeks of Rocephin --Acute metabolic encephalopathy (improved significantly) Patient is more alert and awake, supportive care -Echocardiogram shows mildly dilated right heart chamber, mild to moderate TR, moderate pulmonary hypertension, RVSP 50-55, LVEF 45-50 --Respiratory: Acute hypoxic respiratory failure Nasal cannula oxygen, intermittent BiPAP Home O2 evaluation --Severe protein calorie malnutrition --Hypoalbuminemia, albumin 1.7 Dietitian/scrum coach following Continue tube feeding, nutrition supplements Supportive care -- Hypernatremia (resolved) Closely monitor electrolytes --Leukocytosis/trending down Secondary to sepsis, continue antibiotics and supportive care Closely monitor --S/p DKA, h/o uncontrolled DM/present on admission -Hemoglobin A1c 18.3 Blood sugars moderate control -Avoid hypoglycemia Accu-Chek sliding scale coverage tube feeding Glucerna --DVT prophylaxis Subcu Lovenox --Full CODE STATUS Will closely monitor the patient and adjust the management as needed Plan of care reviewed with the patient and her nurse Cinetechnician recommendations noted and appreciated Subjective Date of service: 05/06/21 Principal diagnosis: HAGMA; DKA; AMS; Obesity; Osteoarthritis; Hypercalcemia Interval history: Brief history and daily hospital course This is a 51-year-old female with DM, OA, medication noncompliance, obesity who presented to emergency department on 04/23 with complaints of weakness, elevated blood glucose levels, nausea, polydipsia, polyuria and diminished oral intake over the past week with worsening symptoms over the past 2 days. Patient acknowledges noncompliance with oral antihyperglycemic therapy. Patient was seen and evaluated in the emergency department and found to have lab work consistent with diabetic ketoacidosis, metabolic encephalopathy, metabolic acidosis and volume depletion. Patient was admitted to the hospital service to the ICU initiated DKA protocol with CCM consult. 04/24/21- Patient remains on DKA protocol. Still very lethargic this am, following simple commands. Rt. knee wound and swelling noted, and nursing staff also reported thick, white vaginal discharge. C/f sepsis, blood culture ordered, this am UA noted. Will start patient on PO difflucan for possible yeast infection, pending culture data. Anion GAP is still 18 this am, will continue DKA protocol for now. Continue to monitor electrolytes, serial BMP ordered. 04/25/21- Patient appears to be in distress this am, now on 3L NC. Lactic acidosis worsen overnight, X1L LR bolus adminstered. Ordered placed for stat ABGs. Blood culture growing GPC 3/4 bottles, patient remains afebrile with no leukocytosis. IV abx was escalated, ID consulted. Ortho consult is still pending, order placed for XR of the Rt. knee. Given patient worsen condition and high anio, gap, will continue insulin gtt for now. Low K and mg was repleted. Continue serial BMP,mg, and phosp 04/26/21- Patient appears more alert and awake this am, talkative, and following commands. Remains on DKA protocol, gap is closedX2, will transition patient to SSI and basal insulin and initiate enteral nutrition. Patient remains afebrile overnight, continue IV Abx per ID. 04/27/21- TASHA overnight. Patient mentation continue to improve. Worsening hyperglycemia, patient is tolerating TF. 70/30 added BID and SSI was adjusted to high dose Q4hrs. D/W CCM patient is stable for transfer to [facility] 04/28/21- Patient continue to improve. Remains drowsy this am, however, easily arousable. Now on 4L NC, still requiring Q4hrs NT suction due to increased secretions and weak cough. Continue to wean O2 supplement as tolerated, F/U CXR in the am. Continue IV Abx per ID. 04/29: Patient is awake and alert with strong cough and able to clear own airway. Ortho consult for right knee aspiration pending. 04/30: No acute events reported overnight, patient will be transferred to the floor. MR of right knee ordered. 05/01; patient had arthrocentesis 05/02; ID recommended total 6 weeks of Rocephin, case management to assist with antibiotics 05/02; patient is febrile, sepsis and positive cultures, currently on Rocephin, ID following 05/03; patient remains on tube feeding, speech therapist has not cleared for oral nutrition, aspiration risk Septic arthritis awaiting synovial debridement knee joint 05/04; blood sugars are uncontrolled Lantus insulin was stopped due to surgical procedure yesterday, Resumed Novolin 70/30, closely monitor and adjust the dose as needed 05/05; patient received 1 unit of PRBC yesterday, a.m. hemoglobin remains 6.8 after transfusion, recheck H&H, transfuse additional PRBC Patient remains on tube feedings, speech therapy following, on long-term antibio tics for her septic knee total 6 weeks 05/06/2021 Patient remains on tube feedings Speech therapy 6 weeks of antibiotics for septic arthritis If patient can swallow and tube feedings are discontinued--- patient can have IV antibiotics as outpatient Not ready for discharge Disposition; follow clinically, follow consultants recommendations discharge when stable Objective - Constitutional Vitals: Vital Signs - 12hr 05/06/21 05/06/21 05/06/21 04:38 10:40 11:45 Temperature 97.9 F Pulse Rate 84 100 H Respiratory 16 16 Rate Blood Pressure 128/70 133/58 129/60 O2 Sat by Pulse 93 98 Oximetry General appearance: Present: no acute distress, well-nourished - EENT Eyes: PERRL, EOM intact ENT: hearing intact, clear oral mucosa, other (NG tube in place) Ears: bilateral: normal - Neck Neck: supple, normal ROM - Respiratory Respiratory effort: normal Respiratory: bilateral: CTA - Breasts Breasts: normal - Cardiovascular Heart rate: 78 Rhythm: regular Heart Sounds: Present: S1 & S2. Absent: gallop, rub Extremities: pulses intact, No edema, normal color, Full ROM - Gastrointestinal General gastrointestinal: Present: soft, non-tender, non-distended, normal bowel sounds - Genitourinary Female genitourinary: normal - Integumentary Integumentary: clear, warm, dry - Musculoskeletal Musculoskeletal: 1, strength equal bilaterally - Neurologic Neurologic: moves all extremities - Psychiatric Psychiatric: memory intact, appropriate mood/affect, intact judgment & insight - Labs CBC & Chem 7: 05/06/21 07:52 05/05/21 06:15 Labs: Abnormal lab results 05/03/21 05/05/21 05/06/21 Range/Units 18:00 23:07 06:44 Hgb (10.1-14.3) gm/dl Hct (30.3-42.9) % POC Glucose 141 H 147 H (70-105) mg/dL Crossmatch See Detail 05/06/21 05/06/21 Range/Units 07:52 12:27 Hgb 7.0 L (10.1-14.3) gm/dl Hct 21.8 L (30.3-42.9) % POC Glucose 200 H (70-105) mg/dL Crossmatch HEART Score - HEART Score Troponin: Troponin T < 0.010 ng/mL (0.00-0.029) 04/23/21 10:33
--- NOTE | 2021-05-06 14:04 | Progress Note ---
Assessment and Plan Continue IV antibiotics and observation Subjective Date of service: 05/06/21 Principal diagnosis: HAGMA; DKA; AMS; Obesity; Osteoarthritis; Hypercalcemia Objective Vital signs: Vital Signs - 12hr 05/06/21 05/06/21 05/06/21 04:38 10:40 11:45 Temperature 97.9 F Pulse Rate 84 100 H Respiratory 16 16 Rate Blood Pressure 128/70 133/58 129/60 O2 Sat by Pulse 93 98 Oximetry Narrative Exam: afebrile, WBC's down... - Labs CBC & BMP: 05/06/21 07:52 05/05/21 06:15 Labs: Abnormal lab results 05/03/21 05/05/21 05/06/21 Range/Units 18:00 23:07 06:44 Hgb (10.1-14.3) gm/dl Hct (30.3-42.9) % POC Glucose 141 H 147 H (70-105) mg/dL Crossmatch See Detail 05/06/21 05/06/21 Range/Units 07:52 12:27 Hgb 7.0 L (10.1-14.3) gm/dl Hct 21.8 L (30.3-42.9) % POC Glucose 200 H (70-105) mg/dL Crossmatch
[2021-05-06] MEDS ORDERED: SODIUM BICARBONATE 325 MG TAB FEEDTUBE PRN (16:05)
[2021-05-06] MEDS ORDERED: SIMPLE SYRUP 15 ML FEEDTUBE PRN ×2 (16:05)
[2021-05-06] MEDS ORDERED: LIPASE 10,500/PROTEASE 25,000/AMYLASE 43,750 (UNITS) DR CAP FEEDTUBE PRN (16:05)
--- NOTE | 2021-05-06 16:59 | Progress Note ---
Assessment and Plan 51 YO Female with DM, OA, Medication Noncompliance, Obesity presents to ED for evaluation. Patient reports "I feel sick". Patient states she had experienced weakness, elevated blood glucose levels, nausea, polydipsia, polyuria, as well a s diminished oral intake over the past 1 week with worsening symptoms over the last 2 days. Patient acknowledges noncompliance with oral antihyperglycemic therapy. Patient states that her weight has gotten progressively worse and and that she is "too weak to walk". EMS was notified and upon arrival the patient was found to be in distress and subsequent transported to [facility] for further care and evaluation of the aforementioned symptoms. The patient was seen and evaluated in the emergency department. All lab and imaging studies reviewed. The patient was found to have diabetic ketoacidosis, metabolic encephalopathy, as well as metabolic acidosis, and volume depletion. Patient mated to ICU and initiated on DKA protocol. Critical care team consulted in ED. Patient has fever, chills, chest pain, palpitation, productive cough, skin rash, recent contact, known exposure to COVID-1 Patients sullivan virus PCR is negative. Patient Sleeping. Patient is on 2 litres O2. O2 saturation 98%. Patient febrile. Has leukocytosis. Blood pressure 109/55, Pulse 83, respirations 16. Chest xray done 04/29/21 reported Low lung volumes with bibasilar opacities/atelectasis persists, unchanged. No pneumothorax. Patient has right knee surgery. Patient is on cephazolin, and famotidine. - Patient Problems (1) High anion gap metabolic acidosis Current Visit: Yes Status: Acute Plan to address problem: Improving. Recent anion gap is 16. (2) DKA (diabetic ketoacidosis) Current Visit: Yes Status: Acute Qualifiers: Diabetes mellitus type: type 1 Plan to address problem: Improved. Management as primary care. (3) Metabolic encephalopathy Current Visit: Yes Status: Acute Plan to address problem: Management as primary care and neurology. (4) Abscess of right foot Current Visit: No Status: Acute Plan to address problem: Patient is on cefezolin. Management as primary care and ID (5) Diabetic ulcer of right foot associated with diabetes mellitus due to under lying condition, with fat layer exposed Current Visit: No Status: Acute Plan to address problem: Management as per primary care. (6) Hypertension Current Visit: No Status: Chronic Plan to address problem: Management as primary care. Subjective Date of service: 05/06/21 Principal diagnosis: HAGMA; DKA; AMS; Obesity; Osteoarthritis; Hypercalcemia Interval history: 51 YO Female with DM, OA, Medication Noncompliance, Obesity presents to ED for evaluation. Patient reports "I feel sick". Patient states she had experienced weakness, elevated blood glucose levels, nausea, polydipsia, polyuria, as well as diminished oral intake over the past 1 week with worsening symptoms over the last 2 days. Patient acknowledges noncompliance with oral antihyperglycemic therapy. Patient states that her weight has gotten progressively worse and and that she is "too weak to walk". EMS was notified and upon arrival the patient was found to be in distress and subsequent transported to [facility] for further care and evaluation of the aforementioned symptoms. The patient was seen and evaluated in the emergency department. All lab and imaging studies reviewed. The patient was found to have diabetic ketoacidosis, metabolic encephalopathy, a s well as metabolic acidosis, and volume depletion. Patient mated to ICU and initiated on DKA protocol. Critical care team consulted in ED. Patient has fever, chills, chest pain, palpitation, productive cough, skin rash, recent contact, known exposure to COVID-1 Patients sullivan virus PCR is negative. Patient Sleeping. Patient is on 2 litres O2. O2 saturation 98%. Patient febrile. Has leukocytosis. Blood pressure 109/55, Pulse 83, respirations 16. Chest xray done 04/29/21 reported Low lung volumes with bibasilar opacities/atelectasis persists, unchanged. No pneumothorax. Patienthas right knee surgery. Patient is on cephazolin, and famotidine. Objective Vital Signs - 12hr 05/06/21 05/06/21 10:40 11:45 Pulse Rate 100 H Respiratory 16 Rate Blood Pressure 133/58 129/60 O2 Sat by Pulse 98 Oximetry Constitutional: no acute distress, asleep Eyes: non-icteric ENT: oropharynx moist Neck: supple, no lymphadenopathy, no JVD Effort: normal Ascultation: Bilateral: clear, diminished breath sounds, rhonchi (and referred upper airway sounds) Percussion: Bilateral: not dull Cardiovascular: regular rate and rhythm, other (S1,S2) Gastrointestinal: hypoactive bowel sounds, soft, non-tender, non-distended Integumentary: rash (perineal) Extremities: no cyanosis, no edema, pulses normal, no ischemia or petechiae, other (Right knee surgery.) Neurologic: normal mental status, non-focal exam, pupils equal and round, other Psychiatric: anxious CBC and BMP: 05/06/21 07:52 05/05/21 06:15 ABG, PT/INR, D-dimer: ABG ABG pH 7.426 pH Units (7.350-7.450) 04/25/21 11:20 ABG pCO2 25.3 mm Hg 04/25/21 11:20 ABG pO2 73.2 mm Hg (80.0-90.0) L 04/25/21 11:20 ABG O2 Saturation 96.9 % (95.0-99.0) 04/25/21 11:20 Abnormal lab findings: Abnormal Labs 04/23/21 04/23/21 04/23/21 10:33 10:33 10:33 WBC RBC Hgb Hct MCV MCH 26 L Plt Count Lymph % (Auto) Seg Neutrophils % Seg Neuts % (Manual) Lymphocytes % (Manual) 7.0 L Nucleated RBC % 2.0 H Seg Neutrophils # Lymphocytes # (Manual) 0.5 L ABG pO2 ABG HCO3 ABG Base Excess ABG Hemoglobin VBG pH 7.180 L* Oxyhemoglobin Sodium 122 L Potassium 3.0 L Chloride 84.8 L Carbon Dioxide 6 L* BUN 49 H Creatinine 1.4 H Glucose 775 H* POC Glucose Hemoglobin A1c Lactic Acid Calcium 12.2 H* Phosphorus Magnesium Alkaline Phosphatase 130 H C-Reactive Protein Total Protein Albumin 2.9 L Vancomycin Trough Crossmatch 04/23/21 04/23/21 04/23/21 10:40 12:44 14:01 WBC RBC Hgb Hct MCV MCH Plt Count Lymph % (Auto) Seg Neutrophils % Seg Neuts % (Manual) Lymphocytes % (Manual) Nucleated RBC % Seg Neutrophils # Lymphocytes # (Manual) ABG pO2 ABG HCO3 ABG Base Excess ABG Hemoglobin VBG pH Oxyhemoglobin Sodium Potassium Chloride Carbon Dioxide BUN Creatinine Glucose POC Glucose > 600 H 550 H Hemoglobin A1c Lactic Acid Calcium Phosphorus 1.50 L Magnesium Alkaline Phosphatase C-Reactive Protein Total Protein Albumin Vancomycin Trough Crossmatch 04/23/21 04/23/21 04/23/21 14:01 14:04 14:56 WBC RBC Hgb Hct MCV MCH Plt Count Lymph % (Auto) Seg Neutrophils % Seg Neuts % (Manual) Lymphocytes % (Manual) Nucleated RBC % Seg Neutrophils # Lymphocytes # (Manual) ABG pO2 ABG HCO3 ABG Base Excess ABG Hemoglobin VBG pH Oxyhemoglobin Sodium 125 L Potassium 3.0 L Chloride 89.2 L Carbon Dioxide 6 L* BUN 45 H Creatinine 1.3 H Glucose 594 H* POC Glucose 518 H 425 H Hemoglobin A1c Lactic Acid Calcium 10.9 H Phosphorus Magnesium Alkaline Phosphatase C-Reactive Protein Total Protein Albumin Vancomycin Trough Crossmatch 04/23/21 04/23/21 04/23/21 15:43 15:48 17:21 WBC RBC Hgb Hct MCV MCH Plt Count Lymph % (Auto) Seg Neutrophils % Seg Neuts % (Manual) Lymphocytes % (Manual) Nucleated RBC % Seg Neutrophils # Lymphocytes # (Manual) ABG pO2 ABG HCO3 ABG Base Excess ABG Hemoglobin VBG pH Oxyhemoglobin Sodium 131 L Potassium 2.9 L* Chloride Carbon Dioxide 8 L* BUN 39 H Creatinine Glucose 434 H POC Glucose 410 H 407 H Hemoglobin A1c Lactic Acid Calcium 10.3 H Phosphorus Magnesium Alkaline Phosphatase C-Reactive Protein Total Protein Albumin Vancomycin Trough Crossmatch 04/23/21 04/23/21 04/23/21 18:07 19:13 19:54 WBC RBC Hgb Hct MCV MCH Plt Count Lymph % (Auto) Seg Neutrophils % Seg Neuts % (Manual) Lymphocytes % (Manual) Nucleated RBC % Seg Neutrophils # Lymphocytes # (Manual) ABG pO2 ABG HCO3 ABG Base Excess ABG Hemoglobin VBG pH Oxyhemoglobin Sodium 131 L Potassium 3.1 L Chloride 95.9 L Carbon Dioxide 7 L* BUN 39 H Creatinine Glucose 391 H POC Glucose 428 H 350 H Hemoglobin A1c Lactic Acid Calcium 11.2 H Phosphorus Magnesium Alkaline Phosphatase C-Reactive Protein Total Protein Albumin Vancomycin Trough Crossmatch 04/23/21 04/23/21 04/23/21 19:54 20:12 20:59 WBC RBC Hgb Hct MCV MCH Plt Count Lymph % (Auto) Seg Neutrophils % Seg Neuts % (Manual) Lymphocytes % (Manual) Nucleated RBC % Seg Neutrophils # Lymphocytes # (Manual) ABG pO2 ABG HCO3 ABG Base Excess ABG Hemoglobin VBG pH Oxyhemoglobin Sodium Potassium Chloride Carbon Dioxide BUN Creatinine Glucose POC Glucose 365 H 286 H Hemoglobin A1c Lactic Acid Calcium Phosphorus 1.10 L D Magnesium Alkaline Phosphatase C-Reactive Protein Total Protein Albumin Vancomycin Trough Crossmatch 04/23/21 04/23/21 04/23/21 22:05 22:23 22:59 WBC RBC Hgb Hct MCV MCH Plt Count Lymph % (Auto) Seg Neutrophils % Seg Neuts % (Manual) Lymphocytes % (Manual) Nucleated RBC % Seg Neutrophils # Lymphocytes # (Manual) ABG pO2 ABG HCO3 ABG Base Excess ABG Hemoglobin VBG pH Oxyhemoglobin Sodium 135 L Potassium 3.2 L Chloride Carbon Dioxide 10 L BUN 35 H Creatinine Glucose 300 H POC Glucose 257 H 238 H Hemoglobin A1c Lactic Acid Calcium 11.6 H Phosphorus Magnesium Alkaline Phosphatase C-Reactive Protein Total Protein Albumin Vancomycin Trough Crossmatch 04/23/21 04/24/21 04/24/21 23:57 00:10 00:56 WBC RBC Hgb Hct MCV MCH Plt Count Lymph % (Auto) Seg Neutrophils % Seg Neuts % (Manual) Lymphocytes % (Manual) Nucleated RBC % Seg Neutrophils # Lymphocytes # (Manual) ABG pO2 ABG HCO3 ABG Base Excess ABG Hemoglobin VBG pH Oxyhemoglobin Sodium Potassium 3.2 L Chloride Carbon Dioxide 13 L BUN 33 H Creatinine Glucose 267 H POC Glucose 223 H 254 H Hemoglobin A1c Lactic Acid Calcium 11.2 H Phosphorus 1.20 L Magnesium Alkaline Phosphatase C-Reactive Protein Total Protein Albumin Vancomycin Trough Crossmatch 04/24/21 04/24/21 04/24/21 01:58 02:58 03:57 WBC RBC Hgb Hct MCV MCH Plt Count Lymph % (Auto) Seg Neutrophils % Seg Neuts % (Manual) Lymphocytes % (Manual) Nucleated RBC % Seg Neutrophils # Lymphocytes # (Manual) ABG pO2 ABG HCO3 ABG Base Excess ABG Hemoglobin VBG pH Oxyhemoglobin Sodium Potassium Chloride Carbon Dioxide BUN Creatinine Glucose POC Glucose 264 H 251 H 200 H Hemoglobin A1c Lactic Acid Calcium Phosphorus Magnesium Alkaline Phosphatase C-Reactive Protein Total Protein Albumin Vancomycin Trough Crossmatch 04/24/21 04/24/21 04/24/21 04:16 04:16 04:16 WBC RBC Hgb Hct MCV MCH 26 L Plt Count Lymph % (Auto) Seg Neutrophils % Seg Neuts % (Manual) Lymphocytes % (Manual) Nucleated RBC % Seg Neutrophils # Lymphocytes # (Manual) ABG pO2 ABG HCO3 ABG Base Excess ABG Hemoglobin VBG pH Oxyhemoglobin Sodium Potassium Chloride 108.0 H Carbon Dioxide 13 L BUN 31 H Creatinine Glucose 243 H POC Glucose Hemoglobin A1c 18.3 H Lactic Acid Calcium 10.9 H Phosphorus 1.80 L D Magnesium Alkaline Phosphatase C-Reactive Protein Total Protein Albumin Vancomycin Trough Crossmatch 04/24/21 04/24/21 04/24/21 04:59 05:53 06:51 WBC RBC Hgb Hct MCV MCH Plt Count Lymph % (Auto) Seg Neutrophils % Seg Neuts % (Manual) Lymphocytes % (Manual) Nucleated RBC % Seg Neutrophils # Lymphocytes # (Manual) ABG pO2 ABG HCO3 ABG Base Excess ABG Hemoglobin VBG pH Oxyhemoglobin Sodium Potassium Chloride Carbon Dioxide BUN Creatinine Glucose POC Glucose 208 H 213 H 161 H Hemoglobin A1c Lactic Acid Calcium Phosphorus Magnesium Alkaline Phosphatase C-Reactive Protein Total Protein Albumin Vancomycin Trough Crossmatch 04/24/21 04/24/21 04/24/21 07:58 09:21 10:06 WBC RBC Hgb Hct MCV MCH Plt Count Lymph % (Auto) Seg Neutrophils % Seg Neuts % (Manual) Lymphocytes % (Manual) Nucleated RBC % Seg Neutrophils # Lymphocytes # (Manual) ABG pO2 ABG HCO3 ABG Base Excess ABG Hemoglobin VBG pH Oxyhemoglobin Sodium Potassium Chloride Carbon Dioxide BUN Creatinine Glucose POC Glucose 149 H 178 H 164 H Hemoglobin A1c Lactic Acid Calcium Phosphorus Magnesium Alkaline Phosphatase C-Reactive Protein Total Protein Albumin Vancomycin Trough Crossmatch 04/24/21 04/24/21 04/24/21 11:03 12:07 12:14 WBC RBC Hgb Hct MCV MCH Plt Count Lymph % (Auto) Seg Neutrophils % Seg Neuts % (Manual) Lymphocytes % (Manual) Nucleated RBC % Seg Neutrophils # Lymphocytes # (Manual) ABG pO2 ABG HCO3 ABG Base Excess ABG Hemoglobin VBG pH Oxyhemoglobin Sodium Potassium 3.2 L Chloride 108.7 H Carbon Dioxide 16 L BUN 24 H Creatinine Glucose 160 H POC Glucose 157 H 142 H Hemoglobin A1c Lactic Acid Calcium 10.5 H Phosphorus 0.70 L* D Magnesium Alkaline Phosphatase C-Reactive Protein Total Protein Albumin Vancomycin Trough Crossmatch 04/24/21 04/24/21 04/24/21 12:14 13:02 14:00 WBC RBC Hgb Hct MCV MCH Plt Count Lymph % (Auto) Seg Neutrophils % Seg Neuts % (Manual) Lymphocytes % (Manual) Nucleated RBC % Seg Neutrophils # Lymphocytes # (Manual) ABG pO2 ABG HCO3 ABG Base Excess ABG Hemoglobin VBG pH Oxyhemoglobin Sodium Potassium Chloride Carbon Dioxide BUN Creatinine Glucose POC Glucose 138 H 150 H Hemoglobin A1c Lactic Acid 2.50 H* Calcium Phosphorus Magnesium Alkaline Phosphatase C-Reactive Protein Total Protein Albumin Vancomycin Trough Crossmatch 04/24/21 04/24/21 04/24/21 15:14 16:07 17:11 WBC RBC Hgb Hct MCV MCH Plt Count Lymph % (Auto) Seg Neutrophils % Seg Neuts % (Manual) Lymphocytes % (Manual) Nucleated RBC % Seg Neutrophils # Lymphocytes # (Manual) ABG pO2 ABG HCO3 ABG Base Excess ABG Hemoglobin VBG pH Oxyhemoglobin Sodium Potassium Chloride Carbon Dioxide BUN Creatinine Glucose POC Glucose 145 H 148 H 156 H Hemoglobin A1c Lactic Acid Calcium Phosphorus Magnesium Alkaline Phosphatase C-Reactive Protein Total Protein Albumin Vancomycin Trough Crossmatch 04/24/21 04/24/21 04/24/21 18:12 18:24 19:55 WBC RBC Hgb Hct MCV MCH Plt Count Lymph % (Auto) Seg Neutrophils % Seg Neuts % (Manual) Lymphocytes % (Manual) Nucleated RBC % Seg Neutrophils # Lymphocytes # (Manual) ABG pO2 ABG HCO3 ABG Base Excess ABG Hemoglobin VBG pH Oxyhemoglobin Sodium Potassium Chloride 109.2 H Carbon Dioxide 15 L BUN 22 H Creatinine Glucose 159 H POC Glucose 153 H 176 H Hemoglobin A1c Lactic Acid Calcium Phosphorus 1.80 L D Magnesium Alkaline Phosphatase C-Reactive Protein 24.30 H Total Protein Albumin Vancomycin Trough Crossmatch 04/24/21 04/24/21 04/24/21 20:55 22:04 23:02 WBC RBC Hgb Hct MCV MCH Plt Count Lymph % (Auto) Seg Neutrophils % Seg Neuts % (Manual) Lymphocytes % (Manual) Nucleated RBC % Seg Neutrophils # Lymphocytes # (Manual) ABG pO2 ABG HCO3 ABG Base Excess ABG Hemoglobin VBG pH Oxyhemoglobin Sodium Potassium Chloride Carbon Dioxide BUN Creatinine Glucose POC Glucose 146 H 169 H Hemoglobin A1c Lactic Acid 3.10 H* Calcium Phosphorus Magnesium Alkaline Phosphatase C-Reactive Protein Total Protein Albumin Vancomycin Trough Crossmatch 04/24/21 04/25/21 04/25/21 23:13 00:05 01:28 WBC RBC Hgb Hct MCV MCH Plt Count Lymph % (Auto) Seg Neutrophils % Seg Neuts % (Manual) Lymphocytes % (Manual) Nucleated RBC % Seg Neutrophils # Lymphocytes # (Manual) ABG pO2 ABG HCO3 ABG Base Excess ABG Hemoglobin VBG pH Oxyhemoglobin Sodium Potassium Chloride Carbon Dioxide BUN Creatinine Glucose POC Glucose 144 H 150 H 142 H Hemoglobin A1c Lactic Acid Calcium Phosphorus Magnesium Alkaline Phosphatase C-Reactive Protein Total Protein Albumin Vancomycin Trough Crossmatch 04/25/21 04/25/21 04/25/21 02:03 03:07 04:17 WBC RBC Hgb Hct MCV MCH Plt Count Lymph % (Auto) Seg Neutrophils % Seg Neuts % (Manual) Lymphocytes % (Manual) Nucleated RBC % Seg Neutrophils # Lymphocytes # (Manual) ABG pO2 ABG HCO3 ABG Base Excess ABG Hemoglobin VBG pH Oxyhemoglobin Sodium Potassium Chloride Carbon Dioxide BUN Creatinine Glucose POC Glucose 148 H 161 H 158 H Hemoglobin A1c Lactic Acid Calcium Phosphorus Magnesium Alkaline Phosphatase C-Reactive Protein Total Protein Albumin Vancomycin Trough Crossmatch 04/25/21 04/25/21 04/25/21 05:48 06:52 07:58 WBC RBC Hgb Hct MCV MCH Plt Count Lymph % (Auto) Seg Neutrophils % Seg Neuts % (Manual) Lymphocytes % (Manual) Nucleated RBC % Seg Neutrophils # Lymphocytes # (Manual) ABG pO2 ABG HCO3 ABG Base Excess ABG Hemoglobin VBG pH Oxyhemoglobin Sodium Potassium Chloride Carbon Dioxide BUN Creatinine Glucose POC Glucose 136 H 137 H 143 H Hemoglobin A1c Lactic Acid Calcium Phosphorus Magnesium Alkaline Phosphatase C-Reactive Protein Total Protein Albumin Vancomycin Trough Crossmatch 04/25/21 04/25/21 04/25/21 08:10 08:10 08:10 WBC RBC Hgb 9.5 L Hct 28.8 L MCV MCH 26 L Plt Count Lymph % (Auto) Seg Neutrophils % Seg Neuts % (Manual) 33.0 L Lymphocytes % (Manual) Nucleated RBC % Seg Neutrophils # Lymphocytes # (Manual) 1.1 L ABG pO2 ABG HCO3 ABG Base Excess ABG Hemoglobin VBG pH Oxyhemoglobin Sodium Potassium 3.3 L Chloride 109.0 H Carbon Dioxide 16 L BUN 23 H Creatinine Glucose 151 H POC Glucose Hemoglobin A1c Lactic Acid 2.10 H* Calcium Phosphorus 2.20 L D Magnesium 1.60 L Alkaline Phosphatase C-Reactive Protein Total Protein Albumin Vancomycin Trough Crossmatch 04/25/21 04/25/21 04/25/21 08:53 09:59 11:20 WBC RBC Hgb Hct MCV MCH Plt Count Lymph % (Auto) Seg Neutrophils % Seg Neuts % (Manual) Lymphocytes % (Manual) Nucleated RBC % Seg Neutrophils # Lymphocytes # (Manual) ABG pO2 ABG HCO3 ABG Base Excess ABG Hemoglobin VBG pH Oxyhemoglobin Sodium Potassium Chloride Carbon Dioxide BUN Creatinine Glucose POC Glucose 132 H 141 H 141 H Hemoglobin A1c Lactic Acid Calcium Phosphorus Magnesium Alkaline Phosphatase C-Reactive Protein Total Protein Albumin Vancomycin Trough Crossmatch 04/25/21 04/25/21 04/25/21 11:20 12:04 12:26 WBC RBC Hgb Hct MCV MCH Plt Count Lymph % (Auto) Seg Neutrophils % Seg Neuts % (Manual) Lymphocytes % (Manual) Nucleated RBC % Seg Neutrophils # Lymphocytes # (Manual) ABG pO2 73.2 L ABG HCO3 16.2 L ABG Base Excess -7.1 L ABG Hemoglobin 8.7 L VBG pH Oxyhemoglobin 94.8 L Sodium Potassium 3.4 L Chloride 109.5 H Carbon Dioxide 14 L BUN 21 H Creatinine Glucose 155 H POC Glucose 129 H Hemoglobin A1c Lactic Acid Calcium Phosphorus 1.90 L Magnesium 1.60 L Alkaline Phosphatase C-Reactive Protein Total Protein Albumin Vancomycin Trough Crossmatch 04/25/21 04/25/21 04/25/21 13:04 13:58 15:09 WBC RBC Hgb Hct MCV MCH Plt Count Lymph % (Auto) Seg Neutrophils % Seg Neuts % (Manual) Lymphocytes % (Manual) Nucleated RBC % Seg Neutrophils # Lymphocytes # (Manual) ABG pO2 ABG HCO3 ABG Base Excess ABG Hemoglobin VBG pH Oxyhemoglobin Sodium Potassium Chloride Carbon Dioxide BUN Creatinine Glucose POC Glucose 135 H 140 H 134 H Hemoglobin A1c Lactic Acid Calcium Phosphorus Magnesium Alkaline Phosphatase C-Reactive Protein Total Protein Albumin Vancomycin Trough Crossmatch 04/25/21 04/25/21 04/25/21 16:00 18:56 18:58 WBC RBC Hgb Hct MCV MCH Plt Count Lymph % (Auto) Seg Neutrophils % Seg Neuts % (Manual) Lymphocytes % (Manual) Nucleated RBC % Seg Neutrophils # Lymphocytes # (Manual) ABG pO2 ABG HCO3 ABG Base Excess ABG Hemoglobin VBG pH Oxyhemoglobin Sodium Potassium Chloride Carbon Dioxide BUN Creatinine Glucose POC Glucose 135 H 170 H Hemoglobin A1c Lactic Acid 2.10 H* Calcium Phosphorus Magnesium Alkaline Phosphatase C-Reactive Protein Total Protein Albumin Vancomycin Trough Crossmatch 04/25/21 04/25/21 04/25/21 18:58 19:52 20:53 WBC RBC Hgb Hct MCV MCH Plt Count Lymph % (Auto) Seg Neutrophils % Seg Neuts % (Manual) Lymphocytes % (Manual) Nucleated RBC % Seg Neutrophils # Lymphocytes # (Manual) ABG pO2 ABG HCO3 ABG Base Excess ABG Hemoglobin VBG pH Oxyhemoglobin Sodium Potassium Chloride 110.1 H Carbon Dioxide 13 L BUN 23 H Creatinine Glucose 206 H POC Glucose 162 H 171 H Hemoglobin A1c Lactic Acid Calcium Phosphorus Magnesium 2.40 H Alkaline Phosphatase C-Reactive Protein Total Protein Albumin Vancomycin Trough Crossmatch 04/25/21 04/25/21 04/26/21 21:54 22:53 00:03 WBC RBC Hgb Hct MCV MCH Plt Count Lymph % (Auto) Seg Neutrophils % Seg Neuts % (Manual) Lymphocytes % (Manual) Nucleated RBC % Seg Neutrophils # Lymphocytes # (Manual) ABG pO2 ABG HCO3 ABG Base Excess ABG Hemoglobin VBG pH Oxyhemoglobin Sodium Potassium Chloride Carbon Dioxide BUN Creatinine Glucose POC Glucose 139 H 140 H 129 H Hemoglobin A1c Lactic Acid Calcium Phosphorus Magnesium Alkaline Phosphatase C-Reactive Protein Total Protein Albumin Vancomycin Trough Crossmatch 04/26/21 04/26/21 04/26/21 00:38 01:00 01:56 WBC RBC Hgb Hct MCV MCH Plt Count Lymph % (Auto) Seg Neutrophils % Seg Neuts % (Manual) Lymphocytes % (Manual) Nucleated RBC % Seg Neutrophils # Lymphocytes # (Manual) ABG pO2 ABG HCO3 ABG Base Excess ABG Hemoglobin VBG pH Oxyhemoglobin Sodium Potassium Chloride 112.6 H Carbon Dioxide 14 L BUN 22 H Creatinine Glucose 149 H POC Glucose 126 H 137 H Hemoglobin A1c Lactic Acid Calcium Phosphorus Magnesium 2.40 H Alkaline Phosphatase C-Reactive Protein Total Protein Albumin Vancomycin Trough Crossmatch 04/26/21 04/26/21 04/26/21 02:54 04:04 05:02 WBC RBC 3.44 L Hgb 8.9 L Hct 26.9 L MCV 78 L MCH 26 L Plt Count Lymph % (Auto) Seg Neutrophils % Seg Neuts % (Manual) Lymphocytes % (Manual) Nucleated RBC % Seg Neutrophils # Lymphocytes # (Manual) ABG pO2 ABG HCO3 ABG Base Excess ABG Hemoglobin VBG pH Oxyhemoglobin Sodium Potassium Chloride Carbon Dioxide BUN Creatinine Glucose POC Glucose 132 H 130 H Hemoglobin A1c Lactic Acid Calcium Phosphorus Magnesium Alkaline Phosphatase C-Reactive Protein Total Protein Albumin Vancomycin Trough Crossmatch 04/26/21 04/26/2104/26/21 05:02 05:03 06:06 WBC RBC Hgb Hct MCV MCH Plt Count Lymph % (Auto) Seg Neutrophils % Seg Neuts % (Manual) Lymphocytes % (Manual) Nucleated RBC % Seg Neutrophils # Lymphocytes # (Manual) ABG pO2 ABG HCO3 ABG Base Excess ABG Hemoglobin VBG pH Oxyhemoglobin Sodium Potassium Chloride 114.8 H Carbon Dioxide 14 L BUN 22 H Creatinine Glucose 129 H POC Glucose 115 H 129 H Hemoglobin A1c Lactic Acid Calcium Phosphorus Magnesium Alkaline Phosphatase C-Reactive Protein Total Protein Albumin Vancomycin Trough Crossmatch 04/26/21 04/26/21 04/26/21 06:53 07:58 09:09 WBC RBC Hgb Hct MCV MCH Plt Count Lymph % (Auto) Seg Neutrophils % Seg Neuts % (Manual) Lymphocytes % (Manual) Nucleated RBC % Seg Neutrophils # Lymphocytes # (Manual) ABG pO2 ABG HCO3 ABG Base Excess ABG Hemoglobin VBG pH Oxyhemoglobin Sodium Potassium Chloride Carbon Dioxide BUN Creatinine Glucose POC Glucose 121 H 124 H 125 H Hemoglobin A1c Lactic Acid Calcium Phosphorus Magnesium Alkaline Phosphatase C-Reactive Protein Total Protein Albumin Vancomycin Trough Crossmatch 04/26/21 04/26/21 04/26/21 10:05 10:52 12:00 WBC RBC Hgb Hct MCV MCH Plt Count Lymph % (Auto) Seg Neutrophils % Seg Neuts % (Manual) Lymphocytes % (Manual) Nucleated RBC % Seg Neutrophils # Lymphocytes # (Manual) ABG pO2 ABG HCO3 ABG Base Excess ABG Hemoglobin VBG pH Oxyhemoglobin Sodium Potassium Chloride Carbon Dioxide BUN Creatinine Glucose POC Glucose 131 H 129 H 126 H Hemoglobin A1c Lactic Acid Calcium Phosphorus Magnesium Alkaline Phosphatase C-Reactive Protein Total Protein Albumin Vancomycin Trough Crossmatch 04/26/21 04/26/21 04/26/21 13:17 14:06 14:11 WBC RBC Hgb Hct MCV MCH Plt Count Lymph % (Auto) Seg Neutrophils % Seg Neuts % (Manual) Lymphocytes % (Manual) Nucleated RBC % Seg Neutrophils # Lymphocytes # (Manual) ABG pO2 ABG HCO3 ABG Base Excess ABG Hemoglobin VBG pH Oxyhemoglobin Sodium Potassium 5.3 H D Chloride 112.2 H Carbon Dioxide 14 L BUN 22 H Creatinine Glucose 116 H POC Glucose 130 H 132 H Hemoglobin A1c Lactic Acid Calcium Phosphorus Magnesium 2.40 H Alkaline Phosphatase C-Reactive Protein Total Protein Albumin Vancomycin Trough Crossmatch 04/26/21 04/26/21 04/26/21 15:07 15:20 16:05 WBC RBC Hgb Hct MCV MCH Plt Count Lymph % (Auto) Seg Neutrophils % Seg Neuts % (Manual) Lymphocytes % (Manual) Nucleated RBC % Seg Neutrophils # Lymphocytes # (Manual) ABG pO2 ABG HCO3 ABG Base Excess ABG Hemoglobin VBG pH Oxyhemoglobin Sodium Potassium Chloride 112.4 H Carbon Dioxide 13 L BUN 22 H Creatinine Glucose 143 H POC Glucose 130 H 156 H Hemoglobin A1c Lactic Acid Calcium Phosphorus Magnesium Alkaline Phosphatase C-Reactive Protein Total Protein Albumin Vancomycin Trough Crossmatch 04/26/21 04/26/21 04/27/21 17:55 19:27 00:02 WBC RBC Hgb Hct MCV MCH Plt Count Lymph % (Auto) Seg Neutrophils % Seg Neuts % (Manual) Lymphocytes % (Manual) Nucleated RBC % Seg Neutrophils # Lymphocytes # (Manual) ABG pO2 ABG HCO3 ABG Base Excess ABG Hemoglobin VBG pH Oxyhemoglobin Sodium Potassium Chloride Carbon Dioxide BUN Creatinine Glucose POC Glucose 194 H 261 H Hemoglobin A1c Lactic Acid Calcium Phosphorus Magnesium Alkaline Phosphatase C-Reactive Protein Total Protein Albumin Vancomycin Trough 38.2 H Crossmatch 04/27/21 04/27/21 04/27/21 04:03 04:03 05:33 WBC RBC 3.20 L Hgb 8.1 L Hct 25.1 L MCV 78 L MCH 25 L Plt Count Lymph % (Auto) Seg Neutrophils % Seg Neuts % (Manual) Lymphocytes % (Manual) Nucleated RBC % Seg Neutrophils # Lymphocytes # (Manual) ABG pO2 ABG HCO3 ABG Base Excess ABG Hemoglobin VBG pH Oxyhemoglobin Sodium Potassium Chloride 112.4 H Carbon Dioxide 12 L BUN 30 H Creatinine Glucose 330 H POC Glucose 311 H Hemoglobin A1c Lactic Acid Calcium Phosphorus Magnesium Alkaline Phosphatase C-Reactive Protein Total Protein Albumin Vancomycin Trough Crossmatch 04/27/21 04/27/21 04/27/21 09:51 13:15 16:43 WBC RBC Hgb Hct MCV MCH Plt Count Lymph % (Auto) Seg Neutrophils % Seg Neuts % (Manual) Lymphocytes % (Manual) Nucleated RBC % Seg Neutrophils # Lymphocytes # (Manual) ABG pO2 ABG HCO3 ABG Base Excess ABG Hemoglobin VBG pH Oxyhemoglobin Sodium Potassium Chloride Carbon Dioxide BUN Creatinine Glucose POC Glucose 335 H 291 H 218 H Hemoglobin A1c Lactic Acid Calcium Phosphorus Magnesium Alkaline Phosphatase C-Reactive Protein Total Protein Albumin Vancomycin Trough Crossmatch 04/27/21 04/27/21 04/28/21 18:10 22:08 02:15 WBC RBC Hgb Hct MCV MCH Plt Count Lymph % (Auto) Seg Neutrophils % Seg Neuts % (Manual) Lymphocytes % (Manual) Nucleated RBC % Seg Neutrophils # Lymphocytes # (Manual) ABG pO2 ABG HCO3 ABG Base Excess ABG Hemoglobin VBG pH Oxyhemoglobin Sodium Potassium Chloride Carbon Dioxide BUN Creatinine Glucose POC Glucose 177 H 136 H 152 H Hemoglobin A1c Lactic Acid Calcium Phosphorus Magnesium Alkaline Phosphatase C-Reactive Protein Total Protein Albumin Vancomycin Trough Crossmatch 04/28/21 04/28/21 04/28/21 04:41 04:41 06:03 WBC RBC 3.50 L Hgb 8.9 L Hct 27.3 L MCV 78 L MCH 26 L Plt Count Lymph % (Auto) Seg Neutrophils % Seg Neuts % (Manual) Lymphocytes % (Manual) Nucleated RBC % Seg Neutrophils # Lymphocytes # (Manual) ABG pO2 ABG HCO3 ABG Base Excess ABG Hemoglobin VBG pH Oxyhemoglobin Sodium Potassium Chloride 113.5 H Carbon Dioxide 16 L BUN 37 H Creatinine Glucose 167 H POC Glucose 174 H Hemoglobin A1c Lactic Acid Calcium Phosphorus Magnesium Alkaline Phosphatase C-Reactive Protein Total Protein Albumin Vancomycin Trough Crossmatch 04/28/21 04/28/21 04/28/21 08:42 11:34 17:15 WBC RBC Hgb Hct MCV MCH Plt Count Lymph % (Auto) Seg Neutrophils % Seg Neuts % (Manual) Lymphocytes % (Manual) Nucleated RBC % Seg Neutrophils # Lymphocytes # (Manual) ABG pO2 ABG HCO3 ABG Base Excess ABG Hemoglobin VBG pH Oxyhemoglobin Sodium Potassium Chloride Carbon Dioxide BUN Creatinine Glucose POC Glucose 212 H 228 H 236 H Hemoglobin A1c Lactic Acid Calcium Phosphorus Magnesium Alkaline Phosphatase C-Reactive Protein Total Protein Albumin Vancomycin Trough Crossmatch 04/28/21 04/29/21 04/29/21 21:58 01:55 04:00 WBC 11.7 H RBC 3.35 L Hgb 8.5 L Hct 26.4 L MCV MCH 25 L Plt Count Lymph % (Auto) Seg Neutrophils % Seg Neuts % (Manual) Lymphocytes % (Manual) Nucleated RBC % Seg Neutrophils # Lymphocytes # (Manual) ABG pO2 ABG HCO3 ABG Base Excess ABG Hemoglobin VBG pH Oxyhemoglobin Sodium Potassium Chloride Carbon Dioxide BUN Creatinine Glucose POC Glucose 208 H 137 H Hemoglobin A1c Lactic Acid Calcium Phosphorus Magnesium Alkaline Phosphatase C-Reactive Protein Total Protein Albumin Vancomycin Trough Crossmatch 04/29/21 04/29/21 04/29/21 04:00 05:16 11:02 WBC RBC Hgb Hct MCV MCH Plt Count Lymph % (Auto) Seg Neutrophils % Seg Neuts % (Manual) Lymphocytes % (Manual) Nucleated RBC % Seg Neutrophils # Lymphocytes # (Manual) ABG pO2 ABG HCO3 ABG Base Excess ABG Hemoglobin VBG pH Oxyhemoglobin Sodium 146 H Potassium Chloride 112.4 H Carbon Dioxide BUN 41 H Creatinine Glucose 115 H POC Glucose 114 H 144 H Hemoglobin A1c Lactic Acid Calcium Phosphorus Magnesium Alkaline Phosphatase C-Reactive Protein Total Protein Albumin Vancomycin Trough Crossmatch 04/30/21 04/30/21 04/30/21 00:23 04:41 04:41 WBC 14.4 H RBC 3.12 L Hgb 7.8 L Hct 24.7 L MCV MCH 25 L Plt Count 138 L Lymph % (Auto) Seg Neutrophils % Seg Neuts % (Manual) Lymphocytes % (Manual) Nucleated RBC % Seg Neutrophils # Lymphocytes # (Manual) ABG pO2 ABG HCO3 ABG Base Excess ABG Hemoglobin VBG pH Oxyhemoglobin Sodium Potassium Chloride 108.0 H Carbon Dioxide BUN 42 H Creatinine Glucose 215 H POC Glucose 126 H Hemoglobin A1c Lactic Acid Calcium Phosphorus Magnesium Alkaline Phosphatase 171 H C-Reactive Protein Total Protein 6.1 L Albumin 1.4 L Vancomycin Trough Crossmatch 04/30/21 04/30/21 04/30/21 05:22 11:55 17:36 WBC RBC Hgb Hct MCV MCH Plt Count Lymph % (Auto) Seg Neutrophils % Seg Neuts % (Manual) Lymphocytes % (Manual) Nucleated RBC % Seg Neutrophils # Lymphocytes # (Manual) ABG pO2 ABG HCO3 ABG Base Excess ABG Hemoglobin VBG pH Oxyhemoglobin Sodium Potassium Chloride Carbon Dioxide BUN Creatinine Glucose POC Glucose 196 H 224 H 196 H Hemoglobin A1c Lactic Acid Calcium Phosphorus Magnesium Alkaline Phosphatase C-Reactive Protein Total Protein Albumin Vancomycin Trough Crossmatch 05/01/21 05/01/21 05/01/21 04:01 05:37 05:37 WBC 16.9 H RBC 2.97 L Hgb 7.4 L Hct 23.1 L MCV 78 L MCH 25 L Plt Count Lymph % (Auto) Seg Neutrophils % Seg Neuts % (Manual) Lymphocytes % (Manual) Nucleated RBC % Seg Neutrophils # Lymphocytes # (Manual) ABG pO2 ABG HCO3 ABG Base Excess ABG Hemoglobin VBG pH Oxyhemoglobin Sodium Potassium Chloride 108.4 H Carbon Dioxide BUN 41 H Creatinine Glucose 124 H POC Glucose 122 H Hemoglobin A1c Lactic Acid Calcium 8.0 L Phosphorus Magnesium Alkaline Phosphatase C-Reactive Protein Total Protein Albumin Vancomycin Trough Crossmatch 05/01/21 05/01/21 05/01/21 06:27 13:45 16:40 WBC RBC Hgb Hct MCV MCH Plt Count Lymph % (Auto) Seg Neutrophils % Seg Neuts % (Manual) Lymphocytes % (Manual) Nucleated RBC % Seg Neutrophils # Lymphocytes # (Manual) ABG pO2 ABG HCO3 ABG Base Excess ABG Hemoglobin VBG pH Oxyhemoglobin Sodium Potassium Chloride Carbon Dioxide BUN Creatinine Glucose POC Glucose 126 H 231 H 266 H Hemoglobin A1c Lactic Acid Calcium Phosphorus Magnesium Alkaline Phosphatase C-Reactive Protein Total Protein Albumin Vancomycin Trough Crossmatch 05/01/21 05/02/21 05/02/21 23:16 05:43 11:27 WBC RBC Hgb Hct MCV MCH Plt Count Lymph % (Auto) Seg Neutrophils % Seg Neuts % (Manual) Lymphocytes % (Manual) Nucleated RBC % Seg Neutrophils # Lymphocytes # (Manual) ABG pO2 ABG HCO3 ABG Base Excess ABG Hemoglobin VBG pH Oxyhemoglobin Sodium Potassium Chloride Carbon Dioxide BUN Creatinine Glucose POC Glucose 192 H 236 H 284 H Hemoglobin A1c Lactic Acid Calcium Phosphorus Magnesium Alkaline Phosphatase C-Reactive Protein Total Protein Albumin Vancomycin Trough Crossmatch 05/02/21 05/02/21 05/03/21 16:52 23:20 06:16 WBC RBC Hgb Hct MCV MCH Plt Count Lymph % (Auto) Seg Neutrophils % Seg Neuts % (Manual) Lymphocytes % (Manual) Nucleated RBC % Seg Neutrophils # Lymphocytes # (Manual) ABG pO2 ABG HCO3 ABG Base Excess ABG Hemoglobin VBG pH Oxyhemoglobin Sodium Potassium Chloride Carbon Dioxide BUN Creatinine Glucose POC Glucose 170 H 124 H 147 H Hemoglobin A1c Lactic Acid Calcium Phosphorus Magnesium Alkaline Phosphatase C-Reactive Protein Total Protein Albumin Vancomycin Trough Crossmatch 05/03/21 05/03/21 05/03/21 07:05 07:05 11:46 WBC 14.3 H RBC 2.82 L Hgb 6.8 L Hct 22.7 L MCV MCH 24 L Plt Count Lymph % (Auto) 11.8 L Seg Neutrophils % 83.3 H Seg Neuts % (Manual) Lymphocytes % (Manual) Nucleated RBC % Seg Neutrophils # 11.9 H Lymphocytes # (Manual) ABG pO2 ABG HCO3 ABG Base Excess ABG Hemoglobin VBG pH Oxyhemoglobin Sodium Potassium Chloride Carbon Dioxide BUN 39 H Creatinine Glucose 163 H POC Glucose 134 H Hemoglobin A1c Lactic Acid Calcium Phosphorus Magnesium Alkaline Phosphatase C-Reactive Protein Total Protein Albumin Vancomycin Trough Crossmatch 05/03/21 05/03/21 05/03/21 17:11 18:00 19:46 WBC RBC Hgb Hct MCV MCH Plt Count Lymph % (Auto) Seg Neutrophils % Seg Neuts % (Manual) Lymphocytes % (Manual) Nucleated RBC % Seg Neutrophils # Lymphocytes # (Manual) ABG pO2 ABG HCO3 ABG Base Excess ABG Hemoglobin VBG pH Oxyhemoglobin Sodium Potassium Chloride Carbon Dioxide BUN Creatinine Glucose POC Glucose 129 H 128 H Hemoglobin A1c Lactic Acid Calcium Phosphorus Magnesium Alkaline Phosphatase C-Reactive Protein Total Protein Albumin Vancomycin Trough Crossmatch See Detail 05/03/21 05/04/21 05/04/21 22:00 08:06 11:19 WBC RBC Hgb Hct MCV MCH Plt Count Lymph % (Auto) Seg Neutrophils % Seg Neuts % (Manual) Lymphocytes % (Manual) Nucleated RBC % Seg Neutrophils # Lymphocytes # (Manual) ABG pO2 ABG HCO3 ABG Base Excess ABG Hemoglobin VBG pH Oxyhemoglobin Sodium Potassium Chloride Carbon Dioxide BUN Creatinine Glucose POC Glucose 144 H 337 H 383 H Hemoglobin A1c Lactic Acid Calcium Phosphorus Magnesium Alkaline Phosphatase C-Reactive Protein Total Protein Albumin Vancomycin Trough Crossmatch 05/04/21 05/04/21 05/05/21 17:43 23:01 06:05 WBC RBC Hgb Hct MCV MCH Plt Count Lymph % (Auto) Seg Neutrophils % Seg Neuts % (Manual) Lymphocytes % (Manual) Nucleated RBC % Seg Neutrophils # Lymphocytes # (Manual) ABG pO2 ABG HCO3 ABG Base Excess ABG Hemoglobin VBG pH Oxyhemoglobin Sodium Potassium Chloride Carbon Dioxide BUN Creatinine Glucose POC Glucose 316 H 320 H 395 H Hemoglobin A1c Lactic Acid Calcium Phosphorus Magnesium Alkaline Phosphatase C-Reactive Protein Total Protein Albumin Vancomycin Trough Crossmatch 05/05/21 05/05/21 05/05/21 06:15 06:15 11:38 WBC RBC 2.56 L Hgb 6.8 L 6.9 L Hct 21.4 L 22.7 L MCV MCH 27 L Plt Count 442 H Lymph % (Auto) Seg Neutrophils % 76.5 H Seg Neuts % (Manual) Lymphocytes % (Manual) Nucleated RBC % Seg Neutrophils # Lymphocytes # (Manual) ABG pO2 ABG HCO3 ABG Base Excess ABG Hemoglobin VBG pH Oxyhemoglobin Sodium Potassium Chloride Carbon Dioxide BUN 52 H Creatinine Glucose 430 H POC Glucose Hemoglobin A1c Lactic Acid Calcium Phosphorus Magnesium Alkaline Phosphatase C-Reactive Protein Total Protein Albumin Vancomycin Trough Crossmatch 05/05/21 05/05/21 05/06/21 11:47 23:07 06:44 WBC RBC Hgb Hct MCV MCH Plt Count Lymph % (Auto) Seg Neutrophils % Seg Neuts % (Manual) Lymphocytes % (Manual) Nucleated RBC % Seg Neutrophils # Lymphocytes # (Manual) ABG pO2 ABG HCO3 ABG Base Excess ABG Hemoglobin VBG pH Oxyhemoglobin Sodium Potassium Chloride Carbon Dioxide BUN Creatinine Glucose POC Glucose 307 H 141 H 147 H Hemoglobin A1c Lactic Acid Calcium Phosphorus Magnesium Alkaline Phosphatase C-Reactive Protein Total Protein Albumin Vancomycin Trough Crossmatch 05/06/21 05/06/21 07:52 12:27 WBC RBC Hgb 7.0 L Hct 21.8 L MCV MCH Plt Count Lymph % (Auto) Seg Neutrophils % Seg Neuts % (Manual) Lymphocytes % (Manual) Nucleated RBC % Seg Neutrophils # Lymphocytes # (Manual) ABG pO2 ABG HCO3 ABG Base Excess ABG Hemoglobin VBG pH Oxyhemoglobin Sodium Potassium Chloride Carbon Dioxide BUN Creatinine Glucose POC Glucose 200 H Hemoglobin A1c Lactic Acid Calcium Phosphorus Magnesium Alkaline Phosphatase C-Reactive Protein Total Protein Albumin Vancomycin Trough Crossmatch Allied health notes reviewed: nursing
[2021-05-06] MEDS: SENNOSIDES 8.6 MG TAB PO SCH (21:42)
[2021-05-07] MEDS: FREE WATER PO SCH ×6 (01:33→21:02)
[2021-05-07] MEDS: ALBUTEROL 2.5 MG/3 ML NEBU IH PRN (04:22)
[2021-05-07 07:31] LABS: Basophils # (Auto) 0.1 K/mm3 (0.0-0.1); Basophils % (Auto) 0.9 % (0.0-1.8); Eosinophils # (Auto) 0.1 K/mm3 (0.0-0.4); Eosinophils % (Auto) 1.2 % (0.0-4.3); Hematocrit 22.3 % (30.3-42.9); Hemoglobin 6.9 gm/dl (10.1-14.3); Lymphocytes # (Auto) 1.7 K/mm3 (1.2-5.4); Lymphocytes % (Auto) 22.8 % (13.4-35.0); Mean Corpuscular HGB Conc 31 % (30-34); Mean Corpuscular Volume 84 fl (79-97); Monocytes # (Auto) 0.3 K/mm3 (0.0-0.8); Monocytes % (Auto) 4.4 % (0.0-7.3); Platelet Count 449 K/mm3 (140-440); Red Blood Count 2.66 M/mm3 (3.65-5.03); Red Cell Distribution Width 15.4 % (13.2-15.2)
[2021-05-07] MEDS: FAMOTIDINE 20 MG TAB FEEDTUBE SCH (09:05)
[2021-05-07] MEDS: oxyCODONE /ACETAMINOPHEN 5-325MG TAB PO PRN (09:05)
[2021-05-07] MEDS: INSULIN NPH/REGULAR 70/30 INJ SUB-Q SCH ×2 (09:05→18:06)
[2021-05-07] MEDS: INSULIN LISPRO 100 UNIT/ML SUB-Q SCH ×3 (09:06→18:07)
--- NOTE | 2021-05-07 10:00 | Progress Note ---
Assessment and Plan Assessment and plan: This is a 51-year-old female with DM, OA, medication noncompliance, obesity who presented to emergency department on 04/23 with complaints of weakness, elevated blood glucose levels, nausea, polydipsia, polyuria and diminished oral intake over the past week with worsening symptoms over the past 2 days. Patient acknowledges noncompliance with oral antihyperglycemic therapy. Patient was seen and evaluated in the emergency department and found to have lab work consistent with diabetic ketoacidosis, metabolic encephalopathy, metabolic acidosis and volume depletion. Patient was admitted to the hospital service to the ICU initiated DKA protocol with CCM consult. Anemia with 6.8 hemoglobin, received 1 unit PRBC yesterday, this morning hemoglobin 6.8, will recheck Hb and transfuse additional PRBC if needed 04/24/21- Patient remains on DKA protocol. Still very lethargic this am, following simple commands. Rt. knee wound and swelling noted, and nursing staff also reported thick, white vaginal discharge. C/f sepsis, blood culture ordered, this am UA noted. Will start patient on PO difflucan for possible yeast infection, pending culture data. Anion GAP is still 18 this am, will continue DKA protocol for now. Continue to monitor electrolytes, serial BMP ordered. 04/25/21- Patient appears to be in distress this am, now on 3L NC. Lactic acidosis worsen overnight, X1L LR bolus adminIstered. Ordered placed for stat ABGs. Blood culture growing GPC 3/4 bottles, patient remains afebrile with no leukocytosis. IV abx was escalated, ID consulted. Ortho consult is still pending, order placed for XR of the Rt. knee. Given patient worsen condition and high anio, gap, will continue insulin gtt for now. Low K and mg was repleted. Continue serial BMP,mg, and phosp 04/26/21- Patient appears more alert and awake this am, talkative, and following commands. Remains on DKA protocol, gap is closedX2, will transition patient to SSI and basal insulin and initiate enteral nutrition. Patient remains afebrile overnight, continue IV Abx per ID. 04/27/21- TASHA overnight. Patient mentation continue to improve. Worsening hyperglycemia, patient is tolerating TF. 70/30 added BID and SSI was adjusted to high dose Q4hrs. D/W [facility] patient is stable for transfer to [facility] 04/28/21- Patient continue to improve. Remains drowsy this am, however, easily arousable. Now on 4L NC, still requiring Q4hrs NT suction due to increased secretions and weak cough. Continue to wean O2 supplement as tolerated, F/U CXR in the am. Continue IV Abx per ID. 04/29: Patient is awake and alert with strong cough and able to clear own airway. Ortho consult for right knee aspiration pending. 04/30: No acute events reported overnight, patient will be transferred to the floor. MR of right knee ordered. 05/01; patient had arthrocentesis 05/02; ID recommended total 6 weeks of Rocephin, case management to assist with antibiotics 05/02; patient is febrile, sepsis and positive cultures, currently on Rocephin, ID following 05/03; patient remains on tube feeding, speech therapist has not cleared for oral nutrition, aspiration risk Septic arthritis awaiting synovial debridement knee joint 05/04; blood sugars are uncontrolled Lantus insulin was stopped due to surgical procedure yesterday, Resumed Novolin 70/30, closely monitor and adjust the dose as needed 05/05; patient received 1 unit of PRBC yesterday, a.m. hemoglobin remains 6.8 after transfusion, recheck H&H, transfuse additional PRBC Patient remains on tube feedings, speech therapy following, on long-term antibiotics for her septic knee total 6 weeks 05/06/2021 Patient remains on tube feedings Speech therapy 6 weeks of antibiotics for septic arthritis If patient can swallow and tube feedings are discontinued--- patient can have IV antibiotics as outpatient Not ready for discharge Disposition; follow clinically, follow consultants recommendations discharge when stable 05/07: Patient seen and examined, remains quit ill, NG tube still in place hemoglobin is still 6.9 despite second unit transfusion done. Hard sure where this is coming from unsure why the patient is not able to eat. Will obtain MRI of the head to further evaluate and also obtain stool for occult blood to further elicit. In the meantime this is a painless delay in discharge and once that is rectified placement is already being pursued by case management. Dressing in the knee is in place. -Anemia; Hb 6.8-6.9 Received 1 unit PRBC yesterday 05/05/2021 This morning Hb 6.9, transfuse DESPITE SECOND unit PRBC today Check stool for occult blood, WAS NOT ORDERED, BUT NOW ORDERED, monitor H&H --Oropharyngeal dysphagia; On tube feeding, Speech therapy following start oral nutrition when speech therapist clears MRI HEAD TO ENSURE NO STROKE UNSURE WHAT THE ETIOLOGY IS. --Septic arthritis; knee; Ortho is planning knee/synovial debridement 04/30/2021;s/p arthrocentesis 05/03/2021 s/p Incision and drainage followed by arthroscopic exam of the right knee Continue antibiotics per ID total 6 weeks -- Sepsis, group B Streptococcus bacteremia, h/o right septic arthritis -Infectious disease consulted, appreciate recommendations -ABX therapy per ID: Ceftriaxone 2 g every 24 hours -Right knee x-ray shows large joint effusion s/p arthrocentesis Positive synovial fluid cultures, ID recommended total 6 weeks of Rocephin --Acute metabolic encephalopathy (improved significantly) Patient is more alert and awake, supportive care -Echocardiogram shows mildly dilated right heart chamber, mild to moderate TR, moderate pulmonary hypertension, RVSP 50-55, LVEF 45-50 --Respiratory: Acute hypoxic respiratory failure Nasal cannula oxygen, intermittent BiPAP Home O2 evaluation --Severe protein calorie malnutrition --Hypoalbuminemia, albumin 1.7 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/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 Continue tube feeding, nutrition supplements Supportive care -- Hypernatremia (resolved) Closely monitor electrolytes --Leukocytosis/trending down Secondary to sepsis, continue antibiotics and supportive care Closely monitor --S/p DKA, h/o uncontrolled DM/present on admission -Hemoglobin A1c 18.3 Blood sugars moderate control -Avoid hypoglycemia Accu-Chek sliding scale coverage tube feeding Glucerna --DVT prophylaxis Subcu Lovenox --Full CODE STATUS Will closely monitor the patient and adjust the management as needed Plan of care reviewed with the patient and her nurse Lead [employer]er Blasting recommendations noted and appreciated History Interval history: Patient seen and examined this morning more awake, still with NG tube, nurse at bedside reports patient had some mild bleed from the knee surgical site will contact surgery to reevaluate. Patient still unable to ambulate. Case management still awaiting placement. Hemoglobin remains low despite transfusion. Hospitalist Physical - Physical exam Narrative exam: General appearance: Present: no acute distress, well-nourished - EENT Eyes: PERRL, EOM intact ENT: hearing intact, clear oral mucosa, other (NG tube in place) Ears: bilateral: normal - Neck Neck: supple, normal ROM - Respiratory Respiratory effort: normal Respiratory: bilateral: CTA - Breasts Breasts: normal - Cardiovascular Heart rate: 78 Rhythm: regular Heart Sounds: Present: S1 & S2. Absent: gallop, rub Extremities: pulses intact, No edema, normal color, Full ROM - Gastrointestinal General gastrointestinal: Present: soft, non-tender, non-distended, normal bowel sounds - Integumentary Integumentary: warm, dry, DRESSING IN THE RIGHT KNEE - Musculoskeletal Musculoskeletal:strength equal bilaterally, DRESSING TO RIGHT KNEE - Neurologic Neurologic: moves all extremities - Psychiatric Psychiatric: memory intact, appropriate mood/affect, intact judgment & insight - Constitutional Vitals: Temp Pulse Resp BP Pulse Ox 99.9 F H 111 H 20 152/73 97 05/07/21 05:47 05/07/21 05:47 05/07/21 05:47 05/07/21 05:47 05/07/21 05:47 General appearance: Present: no acute distress, well-nourished HEART Score - HEART Score Troponin: Troponin T < 0.010 ng/mL (0.00-0.029) 04/23/21 10:33 Results - Labs CBC & Chem 7: 05/07/21 Unknown 05/05/21 06:15 Labs: Laboratory Last Values WBC 7.6 K/mm3 (4.5-11.0) 05/07/21 Unknown RBC 2.66 M/mm3 (3.65-5.03) L 05/07/21 Unknown Hgb 6.9 gm/dl (10.1-14.3) L 05/07/21 Unknown Hct 22.3 % (30.3-42.9) L 05/07/21 Unknown MCV 84 fl (79-97) 05/07/21 Unknown MCH 26 pg (28-32) L 05/07/21 Unknown MCHC 31 % (30-34) 05/07/21 Unknown RDW 15.4 % (13.2-15.2) H 05/07/21 Unknown Plt Count 449 K/mm3 (140-440) H 05/07/21 Unknown Lymph % (Auto) 22.8 % (13.4-35.0) 05/07/21 Unknown Centre % (Auto) 4.4 % (0.0-7.3) 05/07/21 Unknown Eos % (Auto) 1.2 % (0.0-4.3) 05/07/21 Unknown Baso % (Auto) 0.9 % (0.0-1.8) 05/07/21 Unknown Lymph # (Auto) 1.7 K/mm3 (1.2-5.4) 05/07/21 Unknown Centre # (Auto) 0.3 K/mm3 (0.0-0.8) 05/07/21 Unknown Eos # (Auto) 0.1 K/mm3 (0.0-0.4) 05/07/21 Unknown Baso # (Auto) 0.1 K/mm3 (0.0-0.1) 05/07/21 Unknown Add Manual Diff Complete 04/25/21 08:10 Total Counted 100 04/25/21 08:10 Seg Neutrophils % 70.7 % (40.0-70.0) H 05/07/21 Unknown Seg Neuts % (Manual) 33.0 % (40.0-70.0) L 04/25/21 08:10 Band Neutrophils % 23.0 % 04/25/21 08:10 Lymphocytes % (Manual) 19.0 % (13.4-35.0) 04/25/21 08:10 Reactive Lymphs % (Man) 1.0 % 04/25/21 08:10 Monocytes % (Manual) 1.0 % (0.0-7.3) 04/25/21 08:10 Eosinophils % (Manual) 1.0 % (0.0-4.3) 04/25/21 08:10 Metamyelocytes % 3.0 % 04/23/21 10:33 Myelocytes % 22.0 % 04/25/21 08:10 Nucleated RBC % Not Reportable 04/25/21 08:10 Seg Neutrophils # 5.4 K/mm3 (1.8-7.7) 05/07/21 Unknown Seg Neutrophils # Man 1.9 K/mm3 (1.8-7.7) 04/25/21 08:10 Band Neutrophils # 1.3 K/mm3 04/25/21 08:10 Lymphocytes # (Manual) 1.1 K/mm3 (1.2-5.4) L 04/25/21 08:10 Abs React Lymphs (Man) 0.1 K/mm3 04/25/21 08:10 Monocytes # (Manual) 0.1 K/mm3 (0.0-0.8) 04/25/21 08:10 Eosinophils # (Manual) 0.1 K/mm3 (0.0-0.4) 04/25/21 08:10 Basophils # (Manual) 0.0 K/mm3 (0.0-0.1) 04/25/21 08:10 Metamyelocytes # 0.0 K/mm3 04/25/21 08:10 Myelocytes # 1.3 K/mm3 04/25/21 08:10 Promyelocytes # 0.0 K/mm3 04/25/21 08:10 Blast Cells # 0.0 K/mm3 04/25/21 08:10 WBC Morphology Not Reportable 04/25/21 08:10 Hypersegmented Neuts Not Reportable 04/25/21 08:10 Hyposegmented Neuts Not Reportable 04/25/21 08:10 Hypogranular Neuts Not Reportable 04/25/21 08:10 Smudge Cells Not Reportable 04/25/21 08:10 Toxic Granulation Not Reportable 04/25/21 08:10 Toxic Vacuolation Not Reportable 04/25/21 08:10 Dohle Bodies Not Reportable 04/25/21 08:10 Pelger-Huet Anomaly Not Reportable 04/25/21 08:10 Thierry Rods Not Reportable 04/25/21 08:10 Platelet Estimate Consistent w auto 04/25/21 08:10 Clumped Platelets Not Reportable 04/25/21 08:10 Plt Clumps, EDTA Not Reportable 04/25/21 08:10 Large Platelets Not Reportable 04/25/21 08:10 Giant Platelets Not Reportable 04/25/21 08:10 Platelet Satelliting Not Reportable 04/25/21 08:10 Plt Morphology Comment Not Reportable 04/25/21 08:10 RBC Morphology Not Reportable 04/25/21 08:10 Dimorphic RBCs Not Reportable 04/25/21 08:10 Polychromasia Not Reportable 04/25/21 08:10 Hypochromasia 1+ 04/25/21 08:10 Poikilocytosis Not Reportable 04/25/21 08:10 Anisocytosis Not Reportable 04/25/21 08:10 Microcytosis Not Reportable 04/25/21 08:10 Macrocytosis Not Reportable 04/25/21 08:10 Spherocytes Not Reportable 04/25/21 08:10 Pappenheimer Bodies Not Reportable 04/25/21 08:10 Sickle Cells Not Reportable 04/25/21 08:10 Target Cells Not Reportable 04/25/21 08:10 Tear Drop Cells Not Reportable 04/25/21 08:10 Ovalocytes Not Reportable 04/25/21 08:10 Helmet Cells Not Reportable 04/25/21 08:10 [place] Bodies Not Reportable 04/25/21 08:10 [place] Rings Not Reportable 04/25/21 08:10 [place] Cells Not Reportable 04/25/21 08:10 Bite Cells Not Reportable 04/25/21 08:10 Crenated Cell Not Reportable 04/25/21 08:10 Elliptocytes Not Reportable 04/25/21 08:10 Acanthocytes (Spur) Not Reportable 04/25/21 08:10 Rouleaux Not Reportable 04/25/21 08:10 Hemoglobin C Crystals Not Reportable 04/25/21 08:10 Schistocytes Not Reportable 04/25/21 08:10 Malaria parasites Not Reportable 04/25/21 08:10 Juan Bodies Not Reportable 04/25/21 08:10 Hem Pathologist Commnt No 04/25/21 08:10 ABG pH 7.426 pH Units (7.350-7.450) 04/25/21 11:20 ABG pCO2 25.3 mm Hg 04/25/21 11:20 ABG pO2 73.2 mm Hg (80.0-90.0) L 04/25/21 11:20 ABG HCO3 16.2 mmol/L (20.0-26.0) L 04/25/21 11:20 ABG O2 Saturation 96.9 % (95.0-99.0) 04/25/21 11:20 ABG O2 Content 11.6 (0.0-44) 04/25/21 11:20 ABG Base Excess -7.1 mmol/L (-2.0-3.0) L 04/25/21 11:20 ABG Hemoglobin 8.7 gm/dl (12.0-16.0) L 04/25/21 11:20 ABG Carboxyhemoglobin 1.6 % (0.0-5.0) 04/25/21 11:20 ABG Methemoglobin 0.6 % (0.0-1.5) 04/25/21 11:20 VBG pH 7.180 (7.320-7.420) L* 04/23/21 10:33 Oxyhemoglobin 94.8 % (95.0-99.0) L 04/25/21 11:20 FiO2 28 % 04/25/21 11:20 Sodium 139 mmol/L (137-145) 05/05/21 06:15 Potassium 4.3 mmol/L (3.6-5.0) 05/05/21 06:15 Chloride 101.6 mmol/L (98-107) 05/05/21 06:15 Carbon Dioxide 26 mmol/L (22-30) 05/05/21 06:15 Anion Gap 16 mmol/L 05/05/21 06:15 BUN 52 mg/dL (7-17) H 05/05/21 06:15 Creatinine 1.2 mg/dL (0.6-1.2) 05/05/21 06:15 Estimated GFR 58 ml/min 05/05/21 06:15 BUN/Creatinine Ratio 43 % 05/05/21 06:15 Glucose 430 mg/dL (65-100) H 05/05/21 06:15 POC Glucose 255 mg/dL (70-105) H 05/07/21 08:02 Hemoglobin A1c 18.3 % (4-6) H 04/24/21 04:16 Lactic Acid 1.70 mmol/L (0.7-2.0) 04/26/21 05:02 Uric Acid 7.5 mg/dL (3.5-7.6) 04/24/21 12:14 Calcium 8.4 mg/dL (8.4-10.2) 05/05/21 06:15 Phosphorus 4.50 mg/dL (2.5-4.5) 04/30/21 04:41 Magnesium 2.10 mg/dL (1.7-2.3) 05/03/21 07:05 Total Bilirubin 0.50 mg/dL (0.1-1.2) 04/30/21 04:41 AST 12 units/L (5-40) 04/30/21 04:41 ALT 7 units/L (7-56) 04/30/21 04:41 Alkaline Phosphatase 171 units/L (35-129) H 04/30/21 04:41 Ammonia 37.0 umol/L (25-60) 04/23/21 10:33 Total Creatine Kinase 83 units/L (30-135) 04/23/21 10:33 Troponin T < 0.010 ng/mL (0.00-0.029) 04/23/21 10:33 C-Reactive Protein 24.30 mg/dL (0.00-1.30) H 04/24/21 18:24 Total Protein 6.1 g/dL (6.3-8.2) L 04/30/21 04:41 Albumin 1.4 g/dL (3.9-5) L 04/30/21 04:41 Albumin/Globulin Ratio 0.3 % 04/30/21 04:41 Procalcitonin 21.10 ng/mL (<0.15) 04/24/21 12:14 TSH 1.400 mlU/mL (0.270-4.200) 04/23/21 10:33 Urine Color Katie (Yellow) 04/27/21 16:16 Urine Turbidity Cloudy (Clear) 04/27/21 16:16 Urine pH 5.0 (5.0-7.0) 04/27/21 16:16 Ur Specific [place] 1.014 (1.003-1.030) 04/27/21 16:16 Urine Protein <15 mg/dl mg/dL (Negative) 04/27/21 16:16 Urine Glucose (UA) >=500 mg/dL (Negative) 04/27/21 16:16 Urine Ketones Neg mg/dL (Negative) 04/27/21 16:16 Urine Blood Neg (Negative) 04/27/21 16:16 Urine Nitrite Neg (Negative) 04/27/21 16:16 Urine Bilirubin Neg (Negative) 04/27/21 16:16 Urine Urobilinogen 2.0 mg/dL (<2.0) 04/27/21 16:16 Ur Leukocyte Esterase Neg (Negative) 04/27/21 16:16 Urine WBC (Auto) 1.0 /HPF (0.0-6.0) 04/27/21 16:16 Urine RBC (Auto) 1.0 /HPF (0.0-6.0) 04/27/21 16:16 U Epithel Cells (Auto) < 1.0 /HPF (0-13.0) 04/24/21 08:40 Urine Bacteria (Auto) 1+ /HPF (Negative) 04/27/21 16:16 Amorphous Crystals Few 04/27/21 16:16 Urine Yeast (Budding) 3+ /HPF 04/27/21 16:16 Vancomycin Trough 38.2 ug/mL (5.0-20.0) H 04/26/21 19:27 Coronavirus (PCR) Negative (Negative) 04/25/21 Unknown Blood Type A POSITIVE 05/03/21 18:00 Antibody Screen Negative 05/03/21 18:00 Crossmatch See Detail 05/03/21 18:00 Microbiology: Microbiology 05/03/21 Unknown Knee - Right Surgical Culture - Preliminary 05/03/21 Unknown Knee - Right Anaerobic Culture - Preliminary Sanchez/IV: Voiding Method Indwelling Catheter Active Medications - Current Medications Current Medications: Generic Name Dose Route Start Last Admin Trade Name Freq PRN Reason Stop Dose Admin Acetaminophen 650 mg 04/23/21 11:54 05/02/21 18:33 Acetaminophen 325 Mg Tab PO 650 mg Q6H PRN Administration Pain MILD(1-3)/Fever >100.5/SMITH Albuterol 2.5 mg 05/02/21 12:56 05/07/21 04:22 Albuterol 2.5 Mg/3 Ml Nebu IH 2.5 mg Q4HRT PRN Administration Shortness Of Breath Lipase/Protease/Amylase 1 each 04/29/21 15:42 05/05/21 20:40 Lipase 10,500/Protease 25,000/Amylase 43,750 (Units) Dr Rodriguez FEEDTUBE 1 each PRN PRN Administration For Clogged Feeding Tube Lipase/Protease/Amylase 1 each 05/06/21 16:05 Lipase 10,500/Protease 25,000/Amylase 43,750 (Units) Dr Rodriguez FEEDTUBE PRN PRN For Clogged Feeding Tube Dextrose 50 ml 04/26/21 14:00 Dextrose 50% In Water (25gm) 50 Ml Syringe IV Q30MIN PRN Hypoglycemia Protocol Famotidine 20 mg 04/29/21 10:00 05/07/21 09:05 Famotidine 20 Mg Tab FEEDTUBE 20 mg DAILY AMIRA Administration Hydromorphone HCl 0.5 mg 04/23/21 11:54 05/04/21 21:23 Hydromorphone 1 Mg/1 Ml Inj IV 0.5 mg Q23H PRN Administration Pain , Severe (7-10) Cefazolin Sodium 2 gm/ Sodium 100 mls @ 200 mls/hr 05/02/21 14:00 05/07/21 09:06 Chloride IV 06/14/21 20:29 200 mls/hr Q6H PENDING SALE TO [facility] Administration Protocol Insulin Human Isoph/Insulin Regular 48 unit 05/02/21 09:30 05/07/21 09:05 Insulin Nph/Regular 70/30 Inj SUB-Q 48 unit BIDDIAB AMIRA Administration Insulin Human Lispro 0 unit 04/29/21 12:00 05/07/21 09:06 Insulin Lispro 100 Unit/Ml SUB-Q 6 unit Q6HR AMIRA Administration Protocol Ketorolac Tromethamine 15 mg 05/03/21 18:59 Ketorolac 30 Mg/1 Ml Inj IV 05/08/21 18:58 Q6H PRN Pain, Moderate (4-6) Morphine Sulfate 2 mg 05/03/21 18:59 05/03/21 23:04 Morphine 2 Mg/1 Ml Inj IV 2 mg Q4H PRN Administration Pain, Moderate (4-6) Morphine Sulfate 4 mg 05/03/21 18:59 Morphine 4 Mg/1 Ml Inj IV Q4H PRN Pain , Severe (7-10) Oxycodone/Acetaminophen 1 tab 04/23/21 11:54 05/07/21 09:05 Oxycodone /Acetaminophen 5-325mg Tab PO 1 tab Q16H PRN Administration Pain, Moderate (4-6) Senna 17.2 mg 04/25/21 22:00 05/06/21 21:42 Sennosides 8.6 Mg Tab PO Not Given QHS AMIRA Simple Syrup 15 ml 04/29/21 15:42 Simple Syrup 15 Ml FEEDTUBE PRN PRN Hypoglycemia Simple Syrup 30 ml 04/29/21 15:42 Simple Syrup 15 Ml FEEDTUBE PRN PRN Hypoglycemia Simple Syrup 15 ml 05/06/21 16:05 Simple Syrup 15 Ml FEEDTUBE PRN PRN Hypoglycemia Simple Syrup 30 ml 05/06/21 16:05 Simple Syrup 15 Ml FEEDTUBE PRN PRN Hypoglycemia Sodium Bicarbonate 325 mg 04/29/21 15:42 Sodium Bicarbonate 325 Mg Tab FEEDTUBE PRN PRN For Clogged Feeding Tube Sodium Bicarbonate 325 mg 05/06/21 16:05 Sodium Bicarbonate 325 Mg Tab FEEDTUBE PRN PRN For Clogged Feeding Tube Sodium Chloride 10 ml 04/23/21 22:00 05/07/21 09:07 Sodium Chloride 0.9% 10 Ml Flush Syringe IV 10 ml BID AMIRA Administration Sodium Chloride 10 ml 04/23/21 11:54 04/24/21 11:15 Sodium Chloride 0.9% 10 Ml Flush Syringe IV 10 ml PRN PRN Administration LINE FLUSH Sodium Chloride 10 ml 05/03/21 19:00 Sodium Chloride 0.9% 10 Ml Flush Syringe IV PRN AMIRA Nutrition/Malnutrition Assess - Dietary Evaluation Nutrition/Malnutrition Findings: Nutrition Notes Start: 04/26/21 09:53 Freq: Status: Active Protocol: Document 05/06/21 16:07 HOANG (Rec: 05/06/21 16:09 [facility] [id number]) Nutrition Notes Initial or Follow up Brief Note Current Diet TF - Vital AF 1.2 at 65ml/hr Labs/Tests POC Glu: 147, 200 Subjective/Other Information CONTROL PANEL TESTER evaluated pt yesterday; recommended continued NPO status. Pt scheduled for D/C today. Nutrition Intervention Nutrition Support: Glucerna 1.2 currently out of stock. Will substitute with Vital AF 1.2 at 65ml/hr with 100ml water flush q4h. Follow-Up By: 05/08/21 Additional Comments F/U: Change TF formula back to Glucerna 1.2 if back in stock
[2021-05-07 11:13] LABS: Hematocrit 23.7 % (30.3-42.9); Hemoglobin 7.4 gm/dl (10.1-14.3)
[2021-05-07] MEDS: HYDROmorphone 1 MG/1 ML INJ IV PRN (12:00)
--- NOTE | 2021-05-07 12:37 | Progress Note ---
Assessment and Plan 51 YO Female with DM, OA, Medication Noncompliance, Obesity presents to ED for evaluation. Patient reports "I feel sick". Patient states she had experienced weakness, elevated blood glucose levels, nausea, polydipsia, polyuria, as well a s diminished oral intake over the past 1 week with worsening symptoms over the last 2 days. Patient acknowledges noncompliance with oral antihyperglycemic therapy. Patient states that her weight has gotten progressively worse and and that she is "too weak to walk". EMS was notified and upon arrival the patient was found to be in distress and subsequent transported to [facility] for further care and evaluation of the aforementioned symptoms. The patient was seen and evaluated in the emergency department. All lab and imaging studies reviewed. The patient was found to have diabetic ketoacidosis, metabolic encephalopathy, as well as metabolic acidosis, and volume depletion. Patient mated to ICU and initiated on DKA protocol. Critical care team consulted in ED. Patient has fever, chills, chest pain, palpitation, productive cough, skin rash, recent contact, known exposure to COVID-1 Patients sullivan virus PCR is negative. Patient is awake. Patient is on 1 litre O2. O2 saturation 97%. Still complaining of slight shortness of breath. Patient febrile. No leukocytosis. Blood pressure 152/73, Pulse 111 respirations 20 Today's Hgb is 6.9. Recommend blood transfusion. Chest xray done 04/29/21 reported Low lung volumes with bibasilar opacities/atelectasis persists, unchanged. No pneumothorax. Patient had right knee surgery. Complaining of slight pain at the right knee. Patient is on Albuterol aerosol treatments and famotidine - Patient Problems (1) High anion gap metabolic acidosis Current Visit: Yes Status: Acute Plan to address problem: Improving. Recent anion gap is 16. (2) DKA (diabetic ketoacidosis) Current Visit: Yes Status: Acute Qualifiers: Diabetes mellitus type: type 1 Plan to address problem: Improved. Management as primary care. (3) Metabolic encephalopathy Current Visit: Yes Status: Acute Plan to address problem: Management as primary care and neurology. (4) Abscess of right foot Current Visit: No Status: Acute Plan to address problem: Management as primary care and ID (5) Diabetic ulcer of right foot associated with diabetes mellitus due to underlying condition, with fat layer exposed Current Visit: No Status: Acute Plan to address problem: Management as per primary care. (6) Hypertension Current Visit: No Status: Chronic Plan to address problem: Management as primary care. Subjective Date of service: 05/07/21 Principal diagnosis: HAGMA; DKA; AMS; Obesity; Osteoarthritis; Hypercalcemia Interval history: 51 YO Female with DM, OA, Medication Noncompliance, Obesity presents to ED for evaluation. Patient reports "I feel sick". Patient states she had experienced weakness, elevated blood glucose levels, nausea, polydipsia, polyuria, as well as diminished oral intake over the past 1 week with worsening symptoms over the last 2 days. Patient acknowledges noncompliance with oral antihyperglycemic therapy. Patient states that her weight has gotten progressively worse and and that she is "too weak to walk". EMS was notified and upon arrival the patient was found to be in distress and subsequent transported to [facility] for further care and evaluation of the aforementioned symptoms. The patient was seen and evaluated in the emergency department. All lab and imaging studies reviewed. The patient was found to have diabetic ketoacidosis, metabolic encephalopathy, as well as metabolic acidosis, and volume depletion. Patient mated to ICU and initiated on DKA protocol. Critical care team consulted in ED. Patient has fever, chills, chest pain, palpitation, productive cough, skin rash, recent contact, known exposure to COVID-1 Patients sullivan virus PCR is negative. Patient is awake. Patient is on 1 litre O2. O2 saturation 97%. Still complaining of slight shortness of breath. Patient febrile. No leukocytosis. Blood pressure 152/73, Pulse 111 respirations 20 Today's Hgb is 6.9. Recommend blood transfusion. Chest xray done 04/29/21 reported Low lung volumes with bibasilar opacities/atelectasis persists, unchanged. No pneumothorax. Patient had right knee surgery. Complaining of slight pain at the right knee. Patient is on Albuterol aerosol treatments and famotidine. Objective Vital Signs - 12hr 05/07/21 05/07/21 05/07/21 04:22 05:47 10:10 Temperature 99.9 F H Pulse Rate 111 H Pulse Rate [ 99 H Bilateral] Respiratory 20 Rate Respiratory 15 Rate [Bilateral ] Blood Pressure 152/73 O2 Sat by Pulse 97 98 Oximetry Constitutional: no acute distress, alert Eyes: non-icteric ENT: oropharynx moist Neck: supple, no lymphadenopathy, no JVD Effort: normal Ascultation: Bilateral: diminished breath sounds, rhonchi (and referred upper airway sounds) Percussion: Bilateral: not dull Cardiovascular: regular rate and rhythm, other (S1,S2) Gastrointestinal: hypoactive bowel sounds, soft, non-tender, non-distended Integumentary: rash (perineal) Extremities: no cyanosis, no edema, pulses normal, no ischemia or petechiae, other (Right knee surgery.) Neurologic: normal mental status, non-focal exam, pupils equal and round, other Psychiatric: anxious CBC and BMP: 05/07/21 Unknown 05/05/21 06:15 ABG, PT/INR, D-dimer: ABG ABG pH 7.426 pH Units (7.350-7.450) 04/25/21 11:20 ABG pCO2 25.3 mm Hg 04/25/21 11:20 ABG pO2 73.2 mm Hg (80.0-90.0) L 04/25/21 11:20 ABG O2 Saturation 96.9 % (95.0-99.0) 04/25/21 11:20 Abnormal lab findings: Abnormal Labs 04/23/21 04/23/21 04/23/21 10:33 10:33 10:33 WBC RBC Hgb Hct MCV MCH 26 L RDW Plt Count Lymph % (Auto) Seg Neutrophils % Seg Neuts % (Manual) Lymphocytes % (Manual) 7.0 L Nucleated RBC % 2.0 H Seg Neutrophils # Lymphocytes # (Manual) 0.5 L ABG pO2 ABG HCO3 ABG Base Excess ABG Hemoglobin VBG pH 7.180 L* Oxyhemoglobin Sodium 122 L Potassium 3.0 L Chloride 84.8 L Carbon Dioxide 6 L* BUN 49 H Creatinine 1.4 H Glucose 775 H* POC Glucose Hemoglobin A1c Lactic Acid Calcium 12.2 H* Phosphorus Magnesium Alkaline Phosphatase 130 H C-Reactive Protein Total Protein Albumin 2.9 L Vancomycin Trough Crossmatch 04/23/21 04/23/21 04/23/21 10:40 12:44 14:01 WBC RBC Hgb Hct MCV MCH RDW Plt Count Lymph % (Auto) Seg Neutrophils % Seg Neuts % (Manual) Lymphocytes % (Manual) Nucleated RBC % Seg Neutrophils # Lymphocytes # (Manual) ABG pO2 ABG HCO3 ABG Base Excess ABG Hemoglobin VBG pH Oxyhemoglobin Sodium Potassium Chloride Carbon Dioxide BUN Creatinine Glucose POC Glucose > 600 H 550 H Hemoglobin A1c Lactic Acid Calcium Phosphorus 1.50 L Magnesium Alkaline Phosphatase C-Reactive Protein Total Protein Albumin Vancomycin Trough Crossmatch 04/23/21 04/23/21 04/23/21 14:01 14:04 14:56 WBC RBC Hgb Hct MCV MCH RDW Plt Count Lymph % (Auto) Seg Neutrophils % Seg Neuts % (Manual) Lymphocytes % (Manual) Nucleated RBC % Seg Neutrophils # Lymphocytes # (Manual) ABG pO2 ABG HCO3 ABG Base Excess ABG Hemoglobin VBG pH Oxyhemoglobin Sodium 125 L Potassium 3.0 L Chloride 89.2 L Carbon Dioxide 6 L* BUN 45 H Creatinine 1.3 H Glucose 594 H* POC Glucose 518 H 425 H Hemoglobin A1c Lactic Acid Calcium 10.9 H Phosphorus Magnesium Alkaline Phosphatase C-Reactive Protein Total Protein Albumin Vancomycin Trough Crossmatch 04/23/21 04/23/21 04/23/21 15:43 15:48 17:21 WBC RBC Hgb Hct MCV MCH RDW Plt Count Lymph % (Auto) Seg Neutrophils % Seg Neuts % (Manual) Lymphocytes % (Manual) Nucleated RBC % Seg Neutrophils # Lymphocytes # (Manual) ABG pO2 ABG HCO3 ABG Base Excess ABG Hemoglobin VBG pH Oxyhemoglobin Sodium 131 L Potassium 2.9 L* Chloride Carbon Dioxide 8 L* BUN 39 H Creatinine Glucose 434 H POC Glucose 410 H 407 H Hemoglobin A1c Lactic Acid Calcium 10.3 H Phosphorus Magnesium Alkaline Phosphatase C-Reactive Protein Total Protein Albumin Vancomycin Trough Crossmatch 04/23/21 04/23/21 04/23/21 18:07 19:13 19:54 WBC RBC Hgb Hct MCV MCH RDW Plt Count Lymph % (Auto) Seg Neutrophils % Seg Neuts % (Manual) Lymphocytes % (Manual) Nucleated RBC % Seg Neutrophils # Lymphocytes # (Manual) ABG pO2 ABG HCO3 ABG Base Excess ABG Hemoglobin VBG pH Oxyhemoglobin Sodium 131 L Potassium 3.1 L Chloride 95.9 L Carbon Dioxide 7 L* BUN 39 H Creatinine Glucose 391 H POC Glucose 428 H 350 H Hemoglobin A1c Lactic Acid Calcium 11.2 H Phosphorus Magnesium Alkaline Phosphatase C-Reactive Protein Total Protein Albumin Vancomycin Trough Crossmatch 04/23/21 04/23/21 04/23/21 19:54 20:12 20:59 WBC RBC Hgb Hct MCV MCH RDW Plt Count Lymph % (Auto) Seg Neutrophils % Seg Neuts % (Manual) Lymphocytes % (Manual) Nucleated RBC % Seg Neutrophils # Lymphocytes # (Manual) ABG pO2 ABG HCO3 ABG Base Excess ABG Hemoglobin VBG pH Oxyhemoglobin Sodium Potassium Chloride Carbon Dioxide BUN Creatinine Glucose POC Glucose 365 H 286 H Hemoglobin A1c Lactic Acid Calcium Phosphorus 1.10 L D Magnesium Alkaline Phosphatase C-Reactive Protein Total Protein Albumin Vancomycin Trough Crossmatch 04/23/21 04/23/21 04/23/21 22:05 22:23 22:59 WBC RBC Hgb Hct MCV MCH RDW Plt Count Lymph % (Auto) Seg Neutrophils % Seg Neuts % (Manual) Lymphocytes % (Manual) Nucleated RBC % Seg Neutrophils # Lymphocytes # (Manual) ABG pO2 ABG HCO3 ABG Base Excess ABG Hemoglobin VBG pH Oxyhemoglobin Sodium 135 L Potassium 3.2 L Chloride Carbon Dioxide 10 L BUN 35 H Creatinine Glucose 300 H POC Glucose 257 H 238 H Hemoglobin A1c Lactic Acid Calcium 11.6 H Phosphorus Magnesium Alkaline Phosphatase C-Reactive Protein Total Protein Albumin Vancomycin Trough Crossmatch 04/23/21 04/24/21 04/24/21 23:57 00:10 00:56 WBC RBC Hgb Hct MCV MCH RDW Plt Count Lymph % (Auto) Seg Neutrophils % Seg Neuts % (Manual) Lymphocytes % (Manual) Nucleated RBC % Seg Neutrophils # Lymphocytes # (Manual) ABG pO2 ABG HCO3 ABG Base Excess ABG Hemoglobin VBG pH Oxyhemoglobin Sodium Potassium 3.2 L Chloride Carbon Dioxide 13 L BUN 33 H Creatinine Glucose 267 H POC Glucose 223 H 254 H Hemoglobin A1c Lactic Acid Calcium 11.2 H Phosphorus 1.20 L Magnesium Alkaline Phosphatase C-Reactive Protein Total Protein Albumin Vancomycin Trough Crossmatch 04/24/21 04/24/21 04/24/21 01:58 02:58 03:57 WBC RBC Hgb Hct MCV MCH RDW Plt Count Lymph % (Auto) Seg Neutrophils % Seg Neuts % (Manual) Lymphocytes % (Manual) Nucleated RBC % Seg Neutrophils # Lymphocytes # (Manual) ABG pO2 ABG HCO3 ABG Base Excess ABG Hemoglobin VBG pH Oxyhemoglobin Sodium Potassium Chloride Carbon Dioxide BUN Creatinine Glucose POC Glucose 264 H 251 H 200 H Hemoglobin A1c Lactic Acid Calcium Phosphorus Magnesium Alkaline Phosphatase C-Reactive Protein Total Protein Albumin Vancomycin Trough Crossmatch 04/24/21 04/24/21 04/24/21 04:16 04:16 04:16 WBC RBC Hgb Hct MCV MCH 26 L RDW Plt Count Lymph % (Auto) Seg Neutrophils % Seg Neuts % (Manual) Lymphocytes % (Manual) Nucleated RBC % Seg Neutrophils # Lymphocytes # (Manual) ABG pO2 ABG HCO3 ABG Base Excess ABG Hemoglobin VBG pH Oxyhemoglobin Sodium Potassium Chloride 108.0 H Carbon Dioxide 13 L BUN 31 H Creatinine Glucose 243 H POC Glucose Hemoglobin A1c 18.3 H Lactic Acid Calcium 10.9 H Phosphorus 1.80 L D Magnesium Alkaline Phosphatase C-Reactive Protein Total Protein Albumin Vancomycin Trough Crossmatch 04/24/21 04/24/21 04/24/21 04:59 05:53 06:51 WBC RBC Hgb Hct MCV MCH RDW Plt Count Lymph % (Auto) Seg Neutrophils % Seg Neuts % (Manual) Lymphocytes % (Manual) Nucleated RBC % Seg Neutrophils # Lymphocytes # (Manual) ABG pO2 ABG HCO3 ABG Base Excess ABG Hemoglobin VBG pH Oxyhemoglobin Sodium Potassium Chloride Carbon Dioxide BUN Creatinine Glucose POC Glucose 208 H 213 H 161 H Hemoglobin A1c Lactic Acid Calcium Phosphorus Magnesium Alkaline Phosphatase C-Reactive Protein Total Protein Albumin Vancomycin Trough Crossmatch 04/24/21 04/24/21 04/24/21 07:58 09:21 10:06 WBC RBC Hgb Hct MCV MCH RDW Plt Count Lymph % (Auto) Seg Neutrophils % Seg Neuts % (Manual) Lymphocytes % (Manual) Nucleated RBC % Seg Neutrophils # Lymphocytes # (Manual) ABG pO2 ABG HCO3 ABG Base Excess ABG Hemoglobin VBG pH Oxyhemoglobin Sodium Potassium Chloride Carbon Dioxide BUN Creatinine Glucose POC Glucose 149 H 178 H 164 H Hemoglobin A1c Lactic Acid Calcium Phosphorus Magnesium Alkaline Phosphatase C-Reactive Protein Total Protein Albumin Vancomycin Trough Crossmatch 04/24/21 04/24/21 04/24/21 11:03 12:07 12:14 WBC RBC Hgb Hct MCV MCH RDW Plt Count Lymph % (Auto) Seg Neutrophils % Seg Neuts % (Manual) Lymphocytes % (Manual) Nucleated RBC % Seg Neutrophils # Lymphocytes # (Manual) ABG pO2 ABG HCO3 ABG Base Excess ABG Hemoglobin VBG pH Oxyhemoglobin Sodium Potassium 3.2 L Chloride 108.7 H Carbon Dioxide 16 L BUN 24 H Creatinine Glucose 160 H POC Glucose 157 H 142 H Hemoglobin A1c Lactic Acid Calcium 10.5 H Phosphorus 0.70 L* D Magnesium Alkaline Phosphatase C-Reactive Protein Total Protein Albumin Vancomycin Trough Crossmatch 04/24/21 04/24/21 04/24/21 12:14 13:02 14:00 WBC RBC Hgb Hct MCV MCH RDW Plt Count Lymph % (Auto) Seg Neutrophils % Seg Neuts % (Manual) Lymphocytes % (Manual) Nucleated RBC % Seg Neutrophils # Lymphocytes # (Manual) ABG pO2 ABG HCO3 ABG Base Excess ABG Hemoglobin VBG pH Oxyhemoglobin Sodium Potassium Chloride Carbon Dioxide BUN Creatinine Glucose POC Glucose 138 H 150 H Hemoglobin A1c Lactic Acid 2.50 H* Calcium Phosphorus Magnesium Alkaline Phosphatase C-Reactive Protein Total Protein Albumin Vancomycin Trough Crossmatch 04/24/21 04/24/21 04/24/21 15:14 16:07 17:11 WBC RBC Hgb Hct MCV MCH RDW Plt Count Lymph % (Auto) Seg Neutrophils % Seg Neuts % (Manual) Lymphocytes % (Manual) Nucleated RBC % Seg Neutrophils # Lymphocytes # (Manual) ABG pO2 ABG HCO3 ABG Base Excess ABG Hemoglobin VBG pH Oxyhemoglobin Sodium Potassium Chloride Carbon Dioxide BUN Creatinine Glucose POC Glucose 145 H 148 H 156 H Hemoglobin A1c Lactic Acid Calcium Phosphorus Magnesium Alkaline Phosphatase C-Reactive Protein Total Protein Albumin Vancomycin Trough Crossmatch 04/24/21 04/24/21 04/24/21 18:12 18:24 19:55 WBC RBC Hgb Hct MCV MCH RDW Plt Count Lymph % (Auto) Seg Neutrophils % Seg Neuts % (Manual) Lymphocytes % (Manual) Nucleated RBC % Seg Neutrophils # Lymphocytes # (Manual) ABG pO2 ABG HCO3 ABG Base Excess ABG Hemoglobin VBG pH Oxyhemoglobin Sodium Potassium Chloride 109.2 H Carbon Dioxide 15 L BUN 22 H Creatinine Glucose 159 H POC Glucose 153 H 176 H Hemoglobin A1c Lactic Acid Calcium Phosphorus 1.80 L D Magnesium Alkaline Phosphatase C-Reactive Protein 24.30 H Total Protein Albumin Vancomycin Trough Crossmatch 04/24/21 04/24/21 04/24/21 20:55 22:04 23:02 WBC RBC Hgb Hct MCV MCH RDW Plt Count Lymph % (Auto) Seg Neutrophils % Seg Neuts % (Manual) Lymphocytes % (Manual) Nucleated RBC % Seg Neutrophils # Lymphocytes # (Manual) ABG pO2 ABG HCO3 ABG Base Excess ABG Hemoglobin VBG pH Oxyhemoglobin Sodium Potassium Chloride Carbon Dioxide BUN Creatinine Glucose POC Glucose 146 H 169 H Hemoglobin A1c Lactic Acid 3.10 H* Calcium Phosphorus Magnesium Alkaline Phosphatase C-Reactive Protein Total Protein Albumin Vancomycin Trough Crossmatch 04/24/21 04/25/21 04/25/21 23:13 00:05 01:28 WBC RBC Hgb Hct MCV MCH RDW Plt Count Lymph % (Auto) Seg Neutrophils % Seg Neuts % (Manual) Lymphocytes % (Manual) Nucleated RBC % Seg Neutrophils # Lymphocytes # (Manual) ABG pO2 ABG HCO3 ABG Base Excess ABG Hemoglobin VBG pH Oxyhemoglobin Sodium Potassium Chloride Carbon Dioxide BUN Creatinine Glucose POC Glucose 144 H 150 H 142 H Hemoglobin A1c Lactic Acid Calcium Phosphorus Magnesium Alkaline Phosphatase C-Reactive Protein Total Protein Albumin Vancomycin Trough Crossmatch 04/25/21 04/25/21 04/25/21 02:03 03:07 04:17 WBC RBC Hgb Hct MCV MCH RDW Plt Count Lymph % (Auto) Seg Neutrophils % Seg Neuts % (Manual) Lymphocytes % (Manual) Nucleated RBC % Seg Neutrophils # Lymphocytes # (Manual) ABG pO2 ABG HCO3 ABG Base Excess ABG Hemoglobin VBG pH Oxyhemoglobin Sodium Potassium Chloride Carbon Dioxide BUN Creatinine Glucose POC Glucose 148 H 161 H 158 H Hemoglobin A1c Lactic Acid Calcium Phosphorus Magnesium Alkaline Phosphatase C-Reactive Protein Total Protein Albumin Vancomycin Trough Crossmatch 04/25/21 04/25/21 04/25/21 05:48 06:52 07:58 WBC RBC Hgb Hct MCV MCH RDW Plt Count Lymph % (Auto) Seg Neutrophils % Seg Neuts % (Manual) Lymphocytes % (Manual) Nucleated RBC % Seg Neutrophils # Lymphocytes # (Manual) ABG pO2 ABG HCO3 ABG Base Excess ABG Hemoglobin VBG pH Oxyhemoglobin Sodium Potassium Chloride Carbon Dioxide BUN Creatinine Glucose POC Glucose 136 H 137 H 143 H Hemoglobin A1c Lactic Acid Calcium Phosphorus Magnesium Alkaline Phosphatase C-Reactive Protein Total Protein Albumin Vancomycin Trough Crossmatch 04/25/21 04/25/21 04/25/21 08:10 08:10 08:10 WBC RBC Hgb 9.5 L Hct 28.8 L MCV MCH 26 L RDW Plt Count Lymph % (Auto) Seg Neutrophils % Seg Neuts % (Manual) 33.0 L Lymphocytes % (Manual) Nucleated RBC % Seg Neutrophils # Lymphocytes # (Manual) 1.1 L ABG pO2 ABG HCO3 ABG Base Excess ABG Hemoglobin VBG pH Oxyhemoglobin Sodium Potassium 3.3 L Chloride 109.0 H Carbon Dioxide 16 L BUN 23 H Creatinine Glucose 151 H POC Glucose Hemoglobin A1c Lactic Acid 2.10 H* Calcium Phosphorus 2.20 L D Magnesium 1.60 L Alkaline Phosphatase C-Reactive Protein Total Protein Albumin Vancomycin Trough Crossmatch 04/25/21 04/25/21 04/25/21 08:53 09:59 11:20 WBC RBC Hgb Hct MCV MCH RDW Plt Count Lymph % (Auto) Seg Neutrophils % Seg Neuts % (Manual) Lymphocytes % (Manual) Nucleated RBC % Seg Neutrophils # Lymphocytes # (Manual) ABG pO2 ABG HCO3 ABG Base Excess ABG Hemoglobin VBG pH Oxyhemoglobin Sodium Potassium Chloride Carbon Dioxide BUN Creatinine Glucose POC Glucose 132 H 141 H 141 H Hemoglobin A1c Lactic Acid Calcium Phosphorus Magnesium Alkaline Phosphatase C-Reactive Protein Total Protein Albumin Vancomycin Trough Crossmatch 04/25/21 04/25/21 04/25/21 11:20 12:04 12:26 WBC RBC Hgb Hct MCV MCH RDW Plt Count Lymph % (Auto) Seg Neutrophils % Seg Neuts % (Manual) Lymphocytes % (Manual) Nucleated RBC % Seg Neutrophils # Lymphocytes # (Manual) ABG pO2 73.2 L ABG HCO3 16.2 L ABG Base Excess -7.1 L ABG Hemoglobin 8.7 L VBG pH Oxyhemoglobin 94.8 L Sodium Potassium 3.4 L Chloride 109.5 H Carbon Dioxide 14 L BUN 21 H Creatinine Glucose 155 H POC Glucose 129 H Hemoglobin A1c Lactic Acid Calcium Phosphorus 1.90 L Magnesium 1.60 L Alkaline Phosphatase C-Reactive Protein Total Protein Albumin Vancomycin Trough Crossmatch 04/25/21 04/25/21 04/25/21 13:04 13:58 15:09 WBC RBC Hgb Hct MCV MCH RDW Plt Count Lymph % (Auto) Seg Neutrophils % Seg Neuts % (Manual) Lymphocytes % (Manual) Nucleated RBC % Seg Neutrophils # Lymphocytes # (Manual) ABG pO2 ABG HCO3 ABG Base Excess ABG Hemoglobin VBG pH Oxyhemoglobin Sodium Potassium Chloride Carbon Dioxide BUN Creatinine Glucose POC Glucose 135 H 140 H 134 H Hemoglobin A1c Lactic Acid Calcium Phosphorus Magnesium Alkaline Phosphatase C-Reactive Protein Total Protein Albumin Vancomycin Trough Crossmatch 04/25/21 04/25/21 04/25/21 16:00 18:56 18:58 WBC RBC Hgb Hct MCV MCH RDW Plt Count Lymph % (Auto) Seg Neutrophils % Seg Neuts % (Manual) Lymphocytes % (Manual) Nucleated RBC % Seg Neutrophils # Lymphocytes # (Manual) ABG pO2 ABG HCO3 ABG Base Excess ABG Hemoglobin VBG pH Oxyhemoglobin Sodium Potassium Chloride Carbon Dioxide BUN Creatinine Glucose POC Glucose 135 H 170 H Hemoglobin A1c Lactic Acid 2.10 H* Calcium Phosphorus Magnesium Alkaline Phosphatase C-Reactive Protein Total Protein Albumin Vancomycin Trough Crossmatch 04/25/21 04/25/21 04/25/21 18:58 19:52 20:53 WBC RBC Hgb Hct MCV MCH RDW Plt Count Lymph % (Auto) Seg Neutrophils % Seg Neuts % (Manual) Lymphocytes % (Manual) Nucleated RBC % Seg Neutrophils # Lymphocytes # (Manual) ABG pO2 ABG HCO3 ABG Base Excess ABG Hemoglobin VBG pH Oxyhemoglobin Sodium Potassium Chloride 110.1 H Carbon Dioxide 13 L BUN 23 H Creatinine Glucose 206 H POC Glucose 162 H 171 H Hemoglobin A1c Lactic Acid Calcium Phosphorus Magnesium 2.40 H Alkaline Phosphatase C-Reactive Protein Total Protein Albumin Vancomycin Trough Crossmatch 04/25/21 04/25/21 04/26/21 21:54 22:53 00:03 WBC RBC Hgb Hct MCV MCH RDW Plt Count Lymph % (Auto) Seg Neutrophils % Seg Neuts % (Manual) Lymphocytes % (Manual) Nucleated RBC % Seg Neutrophils # Lymphocytes # (Manual) ABG pO2 ABG HCO3 ABG Base Excess ABG Hemoglobin VBG pH Oxyhemoglobin Sodium Potassium Chloride Carbon Dioxide BUN Creatinine Glucose POC Glucose 139 H 140 H 129 H Hemoglobin A1c Lactic Acid Calcium Phosphorus Magnesium Alkaline Phosphatase C-Reactive Protein Total Protein Albumin Vancomycin Trough Crossmatch 04/26/21 04/26/21 04/26/21 00:38 01:00 01:56 WBC RBC Hgb Hct MCV MCH RDW Plt Count Lymph % (Auto) Seg Neutrophils % Seg Neuts % (Manual) Lymphocytes % (Manual) Nucleated RBC % Seg Neutrophils # Lymphocytes # (Manual) ABG pO2 ABG HCO3 ABG Base Excess ABG Hemoglobin VBG pH Oxyhemoglobin Sodium Potassium Chloride 112.6 H Carbon Dioxide 14 L BUN 22 H Creatinine Glucose 149 H POC Glucose 126 H 137 H Hemoglobin A1c Lactic Acid Calcium Phosphorus Magnesium 2.40 H Alkaline Phosphatase C-Reactive Protein Total Protein Albumin Vancomycin Trough Crossmatch 04/26/21 04/26/21 04/26/21 02:54 04:04 05:02 WBC RBC 3.44 L Hgb 8.9 L Hct 26.9 L MCV 78 L MCH 26 L RDW Plt Count Lymph % (Auto) Seg Neutrophils % Seg Neuts % (Manual) Lymphocytes % (Manual) Nucleated RBC % Seg Neutrophils # Lymphocytes # (Manual) ABG pO2 ABG HCO3 ABG Base Excess ABG Hemoglobin VBG pH Oxyhemoglobin Sodium Potassium Chloride Carbon Dioxide BUN Creatinine Glucose POC Glucose 132 H 130 H Hemoglobin A1c Lactic Acid Calcium Phosphorus Magnesium Alkaline Phosphatase C-Reactive Protein Total Protein Albumin Vancomycin Trough Crossmatch 04/26/21 04/26/21 04/26/21 05:02 05:03 06:06 WBC RBC Hgb Hct MCV MCH RDW Plt Count Lymph % (Auto) Seg Neutrophils % Seg Neuts % (Manual) Lymphocytes % (Manual) Nucleated RBC % Seg Neutrophils # Lymphocytes # (Manual) ABG pO2 ABG HCO3 ABG Base Excess ABG Hemoglobin VBG pH Oxyhemoglobin Sodium Potassium Chloride 114.8 H Carbon Dioxide 14 L BUN 22 H Creatinine Glucose 129 H POC Glucose 115 H 129 H Hemoglobin A1c Lactic Acid Calcium Phosphorus Magnesium Alkaline Phosphatase C-Reactive Protein Total Protein Albumin Vancomycin Trough Crossmatch 04/26/21 04/26/21 04/26/21 06:53 07:58 09:09 WBC RBC Hgb Hct MCV MCH RDW Plt Count Lymph % (Auto) Seg Neutrophils % Seg Neuts % (Manual) Lymphocytes % (Manual) Nucleated RBC % Seg Neutrophils # Lymphocytes # (Manual) ABG pO2 ABG HCO3 ABG Base Excess ABG Hemoglobin VBG pH Oxyhemoglobin Sodium Potassium Chloride Carbon Dioxide BUN Creatinine Glucose POC Glucose 121 H 124 H 125 H Hemoglobin A1c Lactic Acid Calcium Phosphorus Magnesium Alkaline Phosphatase C-Reactive Protein Total Protein Albumin Vancomycin Trough Crossmatch 04/26/21 04/26/21 04/26/21 10:05 10:52 12:00 WBC RBC Hgb Hct MCV MCH RDW Plt Count Lymph % (Auto) Seg Neutrophils % Seg Neuts % (Manual) Lymphocytes % (Manual) Nucleated RBC % Seg Neutrophils # Lymphocytes # (Manual) ABG pO2 ABG HCO3 ABG Base Excess ABG Hemoglobin VBG pH Oxyhemoglobin Sodium Potassium Chloride Carbon Dioxide BUN Creatinine Glucose POC Glucose 131 H 129 H 126 H Hemoglobin A1c Lactic Acid Calcium Phosphorus Magnesium Alkaline Phosphatase C-Reactive Protein Total Protein Albumin Vancomycin Trough Crossmatch 04/26/21 04/26/21 04/26/21 13:17 14:06 14:11 WBC RBC Hgb Hct MCV MCH RDW Plt Count Lymph % (Auto) Seg Neutrophils % Seg Neuts % (Manual) Lymphocytes % (Manual) Nucleated RBC % Seg Neutrophils # Lymphocytes # (Manual) ABG pO2 ABG HCO3 ABG Base Excess ABG Hemoglobin VBG pH Oxyhemoglobin Sodium Potassium 5.3 H D Chloride 112.2 H Carbon Dioxide 14 L BUN 22 H Creatinine Glucose 116 H POC Glucose 130 H 132 H Hemoglobin A1c Lactic Acid Calcium Phosphorus Magnesium 2.40 H Alkaline Phosphatase C-Reactive Protein Total Protein Albumin Vancomycin Trough Crossmatch 04/26/21 04/26/21 04/26/21 15:07 15:20 16:05 WBC RBC Hgb Hct MCV MCH RDW Plt Count Lymph % (Auto) Seg Neutrophils % Seg Neuts % (Manual) Lymphocytes % (Manual) Nucleated RBC % Seg Neutrophils # Lymphocytes # (Manual) ABG pO2 ABG HCO3 ABG Base Excess ABG Hemoglobin VBG pH Oxyhemoglobin Sodium Potassium Chloride 112.4 H Carbon Dioxide 13 L BUN 22 H Creatinine Glucose 143 H POC Glucose 130 H 156 H Hemoglobin A1c Lactic Acid Calcium Phosphorus Magnesium Alkaline Phosphatase C-Reactive Protein Total Protein Albumin Vancomycin Trough Crossmatch 04/26/21 04/26/21 04/27/21 17:55 19:27 00:02 WBC RBC Hgb Hct MCV MCH RDW Plt Count Lymph % (Auto) Seg Neutrophils % Seg Neuts % (Manual) Lymphocytes % (Manual) Nucleated RBC % Seg Neutrophils # Lymphocytes # (Manual) ABG pO2 ABG HCO3 ABG Base Excess ABG Hemoglobin VBG pH Oxyhemoglobin Sodium Potassium Chloride Carbon Dioxide BUN Creatinine Glucose POC Glucose 194 H 261 H Hemoglobin A1c Lactic Acid Calcium Phosphorus Magnesium Alkaline Phosphatase C-Reactive Protein Total Protein Albumin Vancomycin Trough 38.2 H Crossmatch 04/27/21 04/27/21 04/27/21 04:03 04:03 05:33 WBC RBC 3.20 L Hgb 8.1 L Hct 25.1 L MCV 78 L MCH 25 L RDW Plt Count Lymph % (Auto) Seg Neutrophils % Seg Neuts % (Manual) Lymphocytes % (Manual) Nucleated RBC % Seg Neutrophils # Lymphocytes # (Manual) ABG pO2 ABG HCO3 ABG Base Excess ABG Hemoglobin VBG pH Oxyhemoglobin Sodium Potassium Chloride 112.4 H Carbon Dioxide 12 L BUN 30 H Creatinine Glucose 330 H POC Glucose 311 H Hemoglobin A1c Lactic Acid Calcium Phosphorus Magnesium Alkaline Phosphatase C-Reactive Protein Total Protein Albumin Vancomycin Trough Crossmatch 04/27/21 04/27/21 04/27/21 09:51 13:15 16:43 WBC RBC Hgb Hct MCV MCH RDW Plt Count Lymph % (Auto) Seg Neutrophils % Seg Neuts % (Manual) Lymphocytes % (Manual) Nucleated RBC % Seg Neutrophils # Lymphocytes # (Manual) ABG pO2 ABG HCO3 ABG Base Excess ABG Hemoglobin VBG pH Oxyhemoglobin Sodium Potassium Chloride Carbon Dioxide BUN Creatinine Glucose POC Glucose 335 H 291 H 218 H Hemoglobin A1c Lactic Acid Calcium Phosphorus Magnesium Alkaline Phosphatase C-Reactive Protein Total Protein Albumin Vancomycin Trough Crossmatch 04/27/21 04/27/21 04/28/21 18:10 22:08 02:15 WBC RBC Hgb Hct MCV MCH RDW Plt Count Lymph % (Auto) Seg Neutrophils % Seg Neuts % (Manual) Lymphocytes % (Manual) Nucleated RBC % Seg Neutrophils # Lymphocytes # (Manual) ABG pO2 ABG HCO3 ABG Base Excess ABG Hemoglobin VBG pH Oxyhemoglobin Sodium Potassium Chloride Carbon Dioxide BUN Creatinine Glucose POC Glucose 177 H 136 H 152 H Hemoglobin A1c Lactic Acid Calcium Phosphorus Magnesium Alkaline Phosphatase C-Reactive Protein Total Protein Albumin Vancomycin Trough Crossmatch 04/28/21 04/28/21 04/28/21 04:41 04:41 06:03 WBC RBC 3.50 L Hgb 8.9 L Hct 27.3 L MCV 78 L MCH 26 L RDW Plt Count Lymph % (Auto) Seg Neutrophils % Seg Neuts % (Manual) Lymphocytes % (Manual) Nucleated RBC % Seg Neutrophils # Lymphocytes # (Manual) ABG pO2 ABG HCO3 ABG Base Excess ABG Hemoglobin VBG pH Oxyhemoglobin Sodium Potassium Chloride 113.5 H Carbon Dioxide 16 L BUN 37 H Creatinine Glucose 167 H POC Glucose 174 H Hemoglobin A1c Lactic Acid Calcium Phosphorus Magnesium Alkaline Phosphatase C-Reactive Protein Total Protein Albumin Vancomycin Trough Crossmatch 04/28/21 04/28/21 04/28/21 08:42 11:34 17:15 WBC RBC Hgb Hct MCV MCH RDW Plt Count Lymph % (Auto) Seg Neutrophils % Seg Neuts % (Manual) Lymphocytes % (Manual) Nucleated RBC % Seg Neutrophils # Lymphocytes # (Manual) ABG pO2 ABG HCO3 ABG Base Excess ABG Hemoglobin VBG pH Oxyhemoglobin Sodium Potassium Chloride Carbon Dioxide BUN Creatinine Glucose POC Glucose 212 H 228 H 236 H Hemoglobin A1c Lactic Acid Calcium Phosphorus Magnesium Alkaline Phosphatase C-Reactive Protein Total Protein Albumin Vancomycin Trough Crossmatch 04/28/21 04/29/21 04/29/21 21:58 01:55 04:00 WBC 11.7 H RBC 3.35 L Hgb 8.5 L Hct 26.4 L MCV MCH 25 L RDW Plt Count Lymph % (Auto) Seg Neutrophils % Seg Neuts % (Manual) Lymphocytes % (Manual) Nucleated RBC % Seg Neutrophils # Lymphocytes # (Manual) ABG pO2 ABG HCO3 ABG Base Excess ABG Hemoglobin VBG pH Oxyhemoglobin Sodium Potassium Chloride Carbon Dioxide BUN Creatinine Glucose POC Glucose 208 H 137 H Hemoglobin A1c Lactic Acid Calcium Phosphorus Magnesium Alkaline Phosphatase C-Reactive Protein Total Protein Albumin Vancomycin Trough Crossmatch 04/29/21 04/29/21 04/29/21 04:00 05:16 11:02 WBC RBC Hgb Hct MCV MCH RDW Plt Count Lymph % (Auto) Seg Neutrophils % Seg Neuts % (Manual) Lymphocytes % (Manual) Nucleated RBC % Seg Neutrophils # Lymphocytes # (Manual) ABG pO2 ABG HCO3 ABG Base Excess ABG Hemoglobin VBG pH Oxyhemoglobin Sodium 146 H Potassium Chloride 112.4 H Carbon Dioxide BUN 41 H Creatinine Glucose 115 H POC Glucose 114 H 144 H Hemoglobin A1c Lactic Acid Calcium Phosphorus Magnesium Alkaline Phosphatase C-Reactive Protein Total Protein Albumin Vancomycin Trough Crossmatch 04/30/21 04/30/21 04/30/21 00:23 04:41 04:41 WBC 14.4 H RBC 3.12 L Hgb 7.8 L Hct 24.7 L MCV MCH 25 L RDW Plt Count 138 L Lymph % (Auto) Seg Neutrophils % Seg Neuts % (Manual) Lymphocytes % (Manual) Nucleated RBC % Seg Neutrophils # Lymphocytes # (Manual) ABG pO2 ABG HCO3 ABG Base Excess ABG Hemoglobin VBG pH Oxyhemoglobin Sodium Potassium Chloride 108.0 H Carbon Dioxide BUN 42 H Creatinine Glucose 215 H POC Glucose 126 H Hemoglobin A1c Lactic Acid Calcium Phosphorus Magnesium Alkaline Phosphatase 171 H C-Reactive Protein Total Protein 6.1 L Albumin 1.4 L Vancomycin Trough Crossmatch 04/30/21 04/30/21 04/30/21 05:22 11:55 17:36 WBC RBC Hgb Hct MCV MCH RDW Plt Count Lymph % (Auto) Seg Neutrophils % Seg Neuts % (Manual) Lymphocytes % (Manual) Nucleated RBC % Seg Neutrophils # Lymphocytes # (Manual) ABG pO2 ABG HCO3 ABG Base Excess ABG Hemoglobin VBG pH Oxyhemoglobin Sodium Potassium Chloride Carbon Dioxide BUN Creatinine Glucose POC Glucose 196 H 224 H 196 H Hemoglobin A1c Lactic Acid Calcium Phosphorus Magnesium Alkaline Phosphatase C-Reactive Protein Total Protein Albumin Vancomycin Trough Crossmatch 05/01/21 05/01/21 05/01/21 04:01 05:37 05:37 WBC 16.9 H RBC 2.97 L Hgb 7.4 L Hct 23.1 L MCV 78 L MCH 25 L RDW Plt Count Lymph % (Auto) Seg Neutrophils % Seg Neuts % (Manual) Lymphocytes % (Manual) Nucleated RBC % Seg Neutrophils # Lymphocytes # (Manual) ABG pO2 ABG HCO3 ABG Base Excess ABG Hemoglobin VBG pH Oxyhemoglobin Sodium Potassium Chloride 108.4 H Carbon Dioxide BUN 41 H Creatinine Glucose 124 H POC Glucose 122 H Hemoglobin A1c Lactic Acid Calcium 8.0 L Phosphorus Magnesium Alkaline Phosphatase C-Reactive Protein Total Protein Albumin Vancomycin Trough Crossmatch 05/01/21 05/01/21 05/01/21 06:27 13:45 16:40 WBC RBC Hgb Hct MCV MCH RDW Plt Count Lymph % (Auto) Seg Neutrophils % Seg Neuts % (Manual) Lymphocytes % (Manual) Nucleated RBC % Seg Neutrophils # Lymphocytes # (Manual) ABG pO2 ABG HCO3 ABG Base Excess ABG Hemoglobin VBG pH Oxyhemoglobin Sodium Potassium Chloride Carbon Dioxide BUN Creatinine Glucose POC Glucose 126 H 231 H 266 H Hemoglobin A1c Lactic Acid Calcium Phosphorus Magnesium Alkaline Phosphatase C-Reactive Protein Total Protein Albumin Vancomycin Trough Crossmatch 05/01/21 05/02/21 05/02/21 23:16 05:43 11:27 WBC RBC Hgb Hct MCV MCH RDW Plt Count Lymph % (Auto) Seg Neutrophils % Seg Neuts % (Manual) Lymphocytes % (Manual) Nucleated RBC % Seg Neutrophils # Lymphocytes # (Manual) ABG pO2 ABG HCO3 ABG Base Excess ABG Hemoglobin VBG pH Oxyhemoglobin Sodium Potassium Chloride Carbon Dioxide BUN Creatinine Glucose POC Glucose 192 H 236 H 284 H Hemoglobin A1c Lactic Acid Calcium Phosphorus Magnesium Alkaline Phosphatase C-Reactive Protein Total Protein Albumin Vancomycin Trough Crossmatch 05/02/21 05/02/21 05/03/21 16:52 23:20 06:16 WBC RBC Hgb Hct MCV MCH RDW Plt Count Lymph % (Auto) Seg Neutrophils % Seg Neuts % (Manual) Lymphocytes % (Manual) Nucleated RBC % Seg Neutrophils # Lymphocytes # (Manual) ABG pO2 ABG HCO3 ABG Base Excess ABG Hemoglobin VBG pH Oxyhemoglobin Sodium Potassium Chloride Carbon Dioxide BUN Creatinine Glucose POC Glucose 170 H 124 H 147 H Hemoglobin A1c Lactic Acid Calcium Phosphorus Magnesium Alkaline Phosphatase C-Reactive Protein Total Protein Albumin Vancomycin Trough Crossmatch 05/03/21 05/03/21 05/03/21 07:05 07:05 11:46 WBC 14.3 H RBC 2.82 L Hgb 6.8 L Hct 22.7 L MCV MCH 24 L RDW Plt Count Lymph % (Auto) 11.8 L Seg Neutrophils % 83.3 H Seg Neuts % (Manual) Lymphocytes % (Manual) Nucleated RBC % Seg Neutrophils # 11.9 H Lymphocytes # (Manual) ABG pO2 ABG HCO3 ABG Base Excess ABG Hemoglobin VBG pH Oxyhemoglobin Sodium Potassium Chloride Carbon Dioxide BUN 39 H Creatinine Glucose 163 H POC Glucose 134 H Hemoglobin A1c Lactic Acid Calcium Phosphorus Magnesium Alkaline Phosphatase C-Reactive Protein Total Protein Albumin Vancomycin Trough Crossmatch 05/03/21 05/03/21 05/03/21 17:11 18:00 19:46 WBC RBC Hgb Hct MCV MCH RDW Plt Count Lymph % (Auto) Seg Neutrophils % Seg Neuts % (Manual) Lymphocytes % (Manual) Nucleated RBC % Seg Neutrophils # Lymphocytes # (Manual) ABG pO2 ABG HCO3 ABG Base Excess ABG Hemoglobin VBG pH Oxyhemoglobin Sodium Potassium Chloride Carbon Dioxide BUN Creatinine Glucose POC Glucose 129 H 128 H Hemoglobin A1c Lactic Acid Calcium Phosphorus Magnesium Alkaline Phosphatase C-Reactive Protein Total Protein Albumin Vancomycin Trough Crossmatch See Detail 05/03/21 05/04/21 05/04/21 22:00 08:06 11:19 WBC RBC Hgb Hct MCV MCH RDW Plt Count Lymph % (Auto) Seg Neutrophils % Seg Neuts % (Manual) Lymphocytes % (Manual) Nucleated RBC % Seg Neutrophils # Lymphocytes # (Manual) ABG pO2 ABG HCO3 ABG Base Excess ABG Hemoglobin VBG pH Oxyhemoglobin Sodium Potassium Chloride Carbon Dioxide BUN Creatinine Glucose POC Glucose 144 H 337 H 383 H Hemoglobin A1c Lactic Acid Calcium Phosphorus Magnesium Alkaline Phosphatase C-Reactive Protein Total Protein Albumin Vancomycin Trough Crossmatch 05/04/21 05/04/21 05/05/21 17:43 23:01 06:05 WBC RBC Hgb Hct MCV MCH RDW Plt Count Lymph % (Auto) Seg Neutrophils % Seg Neuts % (Manual) Lymphocytes % (Manual) Nucleated RBC % Seg Neutrophils # Lymphocytes # (Manual) ABG pO2 ABG HCO3 ABG Base Excess ABG Hemoglobin VBG pH Oxyhemoglobin Sodium Potassium Chloride Carbon Dioxide BUN Creatinine Glucose POC Glucose 316 H 320 H 395 H Hemoglobin A1c Lactic Acid Calcium Phosphorus Magnesium Alkaline Phosphatase C-Reactive Protein Total Protein Albumin Vancomycin Trough Crossmatch 05/05/21 05/05/21 05/05/21 06:15 06:15 11:38 WBC RBC 2.56 L Hgb 6.8 L 6.9 L Hct 21.4 L 22.7 L MCV MCH 27 L RDW Plt Count 442 H Lymph % (Auto) Seg Neutrophils % 76.5 H Seg Neuts % (Manual) Lymphocytes % (Manual) Nucleated RBC % Seg Neutrophils # Lymphocytes # (Manual) ABG pO2 ABG HCO3 ABG Base Excess ABG Hemoglobin VBG pH Oxyhemoglobin Sodium Potassium Chloride Carbon Dioxide BUN 52 H Creatinine Glucose 430 H POC Glucose Hemoglobin A1c Lactic Acid Calcium Phosphorus Magnesium Alkaline Phosphatase C-Reactive Protein Total Protein Albumin Vancomycin Trough Crossmatch 05/05/21 05/05/21 05/06/21 11:47 23:07 06:44 WBC RBC Hgb Hct MCV MCH RDW Plt Count Lymph % (Auto) Seg Neutrophils % Seg Neuts % (Manual) Lymphocytes % (Manual) Nucleated RBC % Seg Neutrophils # Lymphocytes # (Manual) ABG pO2 ABG HCO3 ABG Base Excess ABG Hemoglobin VBG pH Oxyhemoglobin Sodium Potassium Chloride Carbon Dioxide BUN Creatinine Glucose POC Glucose 307 H 141 H 147 H Hemoglobin A1c Lactic Acid Calcium Phosphorus Magnesium Alkaline Phosphatase C-Reactive Protein Total Protein Albumin Vancomycin Trough Crossmatch 05/06/21 05/06/21 05/06/21 07:52 12:27 17:02 WBC RBC Hgb 7.0 L Hct 21.8 L MCV MCH RDW Plt Count Lymph % (Auto) Seg Neutrophils % Seg Neuts % (Manual) Lymphocytes % (Manual) Nucleated RBC % Seg Neutrophils # Lymphocytes # (Manual) ABG pO2 ABG HCO3 ABG Base Excess ABG Hemoglobin VBG pH Oxyhemoglobin Sodium Potassium Chloride Carbon Dioxide BUN Creatinine Glucose POC Glucose 200 H 135 H Hemoglobin A1c Lactic Acid Calcium Phosphorus Magnesium Alkaline Phosphatase C-Reactive Protein Total Protein Albumin Vancomycin Trough Crossmatch 05/06/21 05/07/21 05/07/21 23:03 08:02 10:49 WBC RBC Hgb 7.4 L Hct 23.7 L MCV MCH RDW Plt Count Lymph % (Auto) Seg Neutrophils % Seg Neuts % (Manual) Lymphocytes % (Manual) Nucleated RBC % Seg Neutrophils # Lymphocytes # (Manual) ABG pO2 ABG HCO3 ABG Base Excess ABG Hemoglobin VBG pH Oxyhemoglobin Sodium Potassium Chloride Carbon Dioxide BUN Creatinine Glucose POC Glucose 150 H 255 H Hemoglobin A1c Lactic Acid Calcium Phosphorus Magnesium Alkaline Phosphatase C-Reactive Protein Total Protein Albumin Vancomycin Trough Crossmatch 05/07/21 Unknown WBC RBC 2.66 L Hgb 6.9 L Hct 22.3 L MCV MCH 26 L RDW 15.4 H Plt Count 449 H Lymph % (Auto) Seg Neutrophils % 70.7 H Seg Neuts % (Manual) Lymphocytes % (Manual) Nucleated RBC % Seg Neutrophils # Lymphocytes # (Manual) ABG pO2 ABG HCO3 ABG Base Excess ABG Hemoglobin VBG pH Oxyhemoglobin Sodium Potassium Chloride Carbon Dioxide BUN Creatinine Glucose POC Glucose Hemoglobin A1c Lactic Acid Calcium Phosphorus Magnesium Alkaline Phosphatase C-Reactive Protein Total Protein Albumin Vancomycin Trough Crossmatch Allied health notes reviewed: nursing
--- NOTE | 2021-05-07 13:26 | Progress Note ---
Assessment and Plan Cultures: 04/24/2021 Blood culture: GBS Blood culture 04/26/2021: No growth 04/30/2021 R knee synovial fluid culture: Group B Streptococcus 05/03/2021 right knee OR culture: No growth A/P: 51 yo F with DM2, HTN, morbid obesity presented with sepsis #Acute sepsis: secondary to group B streptococcus bacteremia, source is R knee. #Group B streptococcus bacteremia secondary to R knee septic arthritis: Reports a history of previous right knee septic arthritis and has been treated with antibiotics at least twice in the past. X-ray shows large joint effusion. TTE without any evidence of valvular vegetations/endocarditis. Arthrocentesis culture also positive. Status post I&D followed by arthroscopic examination of right knee on 05/03/2021, as per operative note, "entered the joint proper with return of copious amounts of purulent material" and "significant cartilage degeneration from repeated infections" #DM2: tight glycemic control for best outcomes. Recs: -continue higher dose IV Ancef due to her morbid obesity -will need a longer ~6 weeks course of IV abx after surgery due to her history of recurrence / chronicity and possibility of osteomyelitis, extensive cartilage degeneration. -upon discharge, continue IV Ceftriaxone ending 06/14/2021, CM orders have already been placed Holly Leroy MD, [facility] O: [phone] F: [phone] Subjective Date of service: 05/07/21 Principal diagnosis: HAGMA; DKA; AMS; Obesity; Osteoarthritis; Hypercalcemia Interval history: Complains of shortness of breath. Low grade temperature + Objective - Exam Narrative Exam: Physical Exam: Constitutional: Alert, cooperative. Head, Ears, Nose: Normocephalic, atraumatic. External ears, nose normal Eyes: Conjunctivae/corneas clear. No icterus. No ptosis. Neck: Supple, no meningeal signs Cardiovascular: S1, S2 + Respiratory: Good air entry, clear to auscultation bilaterally GI: Soft, non-tender; bowel sounds normal. No peritoneal signs Musculoskeletal: Right knee with dressing + Skin: No rash or abscess Hem/Lymphatic: No palpable cervical or supraclavicular nodes. No lymphangitis Psych: Mood ok. Affect normal Neurological: Awake, alert, oriented. No gross abnormality - Constitutional Vitals: Vital Signs Temp Pulse Resp BP Pulse Ox 99.9 F H 111 H 20 152/73 98 05/07/21 05:47 05/07/21 05:47 05/07/21 05:47 05/07/21 05:47 05/07/21 10:10 Temperature -Last 24 Hours Temperature 99.9 F Temperature 98.7 F Temperature 100.1 F - Labs CBC & Chem 7: 05/07/21 Unknown 05/05/21 06:15 Labs: Abnormal lab results 05/03/21 05/06/21 05/06/21 Range/Units 18:00 17:02 23:03 RBC (3.65-5.03) M/mm3 Hgb (10.1-14.3) gm/dl Hct (30.3-42.9) % MCH (28-32) pg RDW (13.2-15.2) % Plt Count (140-440) K/mm3 Seg Neutrophils % (40.0-70.0) % POC Glucose 135 H 150 H (70-105) mg/dL Crossmatch See Detail 05/07/21 05/07/21 05/07/21 Range/Units 08:02 10:49 Unknown RBC 2.66 L (3.65-5.03) M/mm3 Hgb 7.4 L 6.9 L (10.1-14.3) gm/dl Hct 23.7 L 22.3 L (30.3-42.9) % MCH 26 L (28-32) pg RDW 15.4 H (13.2-15.2) % Plt Count 449 H (140-440) K/mm3 Seg Neutrophils % 70.7 H (40.0-70.0) % POC Glucose 255 H (70-105) mg/dL Crossmatch
--- NOTE | 2021-05-07 14:54 | Magnetic Resonance Report ---
MR brain wo con INDICATION / CLINICAL INFORMATION: 51 years Female; dysphagia. TECHNIQUE: Multiplanar, multisequence MR images of the brain were obtained. COMPARISON: None available. FINDINGS: BRAIN / INTRACRANIAL CONTENTS: The motion degrades the image quality despite using a fast acquisition sequences. However, the brain appears to demonstrate appropriate signal characteristics for age. The ventricular system is within normal limits in size and configuration. No extra-axial fluid collectio ns or significant mass effect is identified. The diffusion imaging reveals no evidence of acute infar ction. CRANIOCERVICAL JUNCTION: No significant abnormality. VASCULAR FLOW-VOIDS: No significant abnormality. ORBITS: No significant abnormality of visualized orbits. SINUSES / MASTOIDS: The visualized paranasal sinuses are clear. There is presence of right-sided naso gastric tube. ADDITIONAL FINDINGS: None. IMPRESSION: 1. The MRI of the brain appears unremarkable for age without evidence of acute intracranial process. Signer Name: Jose Dudley MD Signed: 05/07/2021 2:50 PM Workstation Name: [id number]
--- NOTE | 2021-05-07 15:04 | Fluoroscopy Report ---
Modified barium swallow INDICATION: Dysphasia FINDINGS: 0.9 minutes of fluoroscopy time was utilized. In conjunction with speech pathology multiple consistencies were given. Applesauce showed no penetration or aspiration. Small amount of residual t hroughout the exam. Thin barium and nectar passed without aspiration or penetration. Residual seen th roughout the exam. Reflux during the procedure visualized. IMPRESSION: 1. No penetration or aspiration however reflux identified during exam. Signer Name: Kwaku Granados MD Signed: 05/07/2021 2:59 PM Workstation Name: [id number]
[2021-05-07] MEDS: SENNOSIDES 8.6 MG TAB PO SCH (21:11)
[2021-05-08] MEDS: FREE WATER PO SCH ×7 (00:28→22:07)
[2021-05-08] MEDS: INSULIN LISPRO 100 UNIT/ML SUB-Q SCH ×4 (01:12→18:32)
[2021-05-08] MEDS: MORPHINE 2 MG/1 ML INJ IV PRN (02:57)
[2021-05-08] MEDS ORDERED: ACETAMINOPHEN 325 MG TAB PO PRN (06:21)
[2021-05-08] MEDS: ACETAMINOPHEN 325 MG TAB PO PRN (06:27)
[2021-05-08] MEDS ORDERED: SODIUM CHLORIDE 0.9% 500 ML 500 ML IV NR (07:16)
[2021-05-08] MEDS: INSULIN NPH/REGULAR 70/30 INJ SUB-Q SCH ×2 (08:00→18:32)
--- NOTE | 2021-05-08 08:38 | XRay Report ---
CHEST 1 VIEW 05/08/2021 7:07 AM INDICATION / CLINICAL INFORMATION: fever. COMPARISON: 04/29/2021 FINDINGS: SUPPORT DEVICES: Stable, satisfactory device positioning. HEART / MEDIASTINUM: No significant abnormality. LUNGS / PLEURA: Mild increased densities and atelectasis in the lower lungs No pneumothorax. Signer Name: Kwaku Granados MD Signed: 05/08/2021 8:34 AM Workstation Name: [id number]
--- NOTE | 2021-05-08 08:41 | XRay Report ---
RIGHT KNEE 3 VIEW(S) INDICATION / CLINICAL INFORMATION: hemorrhagic following surgery . History of septic arthritis. COMPARISON: Radiographs dated 04/25/21. MRI dated 03/14/20 FINDINGS: BONES / JOINT(S): No acute fracture. Extensive tricompartment arthritis with marked irregularity of t he tibiofemoral articular surfaces is essentially unchanged since the prior study. Mild medial sublux ation of the femur relative to the tibia. Large suprapatellar joint effusion containing several gas b ubbles which may be postoperative in nature. SOFT TISSUES: Moderate circumferential soft tissue swelling. ADDITIONAL FINDINGS: None. IMPRESSION: 1. Postoperative appearance with an appearance compatible with the history of septic arthritis. Signer Name: Shannon Ramos MD Signed: 05/08/2021 8:37 AM Workstation Name: [id number]
--- NOTE | 2021-05-08 10:03 | Progress Note ---
Assessment and Plan Assessment and plan: This is a 51-year-old female with DM, OA, medication noncompliance, obesity who presented to emergency department on 04/23 with complaints of weakness, elevated blood glucose levels, nausea, polydipsia, polyuria and diminished oral intake over the past week with worsening symptoms over the past 2 days. Patient acknowledges noncompliance with oral antihyperglycemic therapy. Patient was seen and evaluated in the emergency department and found to have lab work consistent with diabetic ketoacidosis, metabolic encephalopathy, metabolic acidosis and volume depletion. Patient was admitted to the hospital service to the ICU initiated DKA protocol with CCM consult. Anemia with 6.8 hemoglobin, received 1 unit PRBC yesterday, this morning hemoglobin 6.8, will recheck Hb and transfuse additional PRBC if needed 04/24/21- Patient remains on DKA protocol. Still very lethargic this am, following simple commands. Rt. knee wound and swelling noted, and nursing staff also reported thick, white vaginal discharge. C/f sepsis, blood culture ordered, this am UA noted. Will start patient on PO difflucan for possible yeast infection, pending culture data. Anion GAP is still 18 this am, will continue DKA protocol for now. Continue to monitor electrolytes, serial BMP ordered. 04/25/21- Patient appears to be in distress this am, now on 3L NC. Lactic acidosis worsen overnight, X1L LR bolus adminIstered. Ordered placed for stat ABGs. Blood culture growing GPC 3/4 bottles, patient remains afebrile with no leukocytosis. IV abx was escalated, ID consulted. Ortho consult is still pending, order placed for XR of the Rt. knee. Given patient worsen condition and high anio, gap, will continue insulin gtt for now. Low K and mg was repleted. Continue serial BMP,mg, and phosp 04/26/21- Patient appears more alert and awake this am, talkative, and following commands. Remains on DKA protocol, gap is closedX2, will transition patient to SSI and basal insulin and initiate enteral nutrition. Patient remains afebrile overnight, continue IV Abx per ID. 04/27/21- TASHA overnight. Patient mentation continue to improve. Worsening hyperglycemia, patient is tolerating TF. 70/30 added BID and SSI was adjusted to high dose Q4hrs. D/W [facility] patient is stable for transfer to [facility] 04/28/21- Patient continue to improve. Remains drowsy this am, however, easily arousable. Now on 4L NC, still requiring Q4hrs NT suction due to increased secretions and weak cough. Continue to wean O2 supplement as tolerated, F/U CXR in the am. Continue IV Abx per ID. 04/29: Patient is awake and alert with strong cough and able to clear own airway. Ortho consult for right knee aspiration pending. 04/30: No acute events reported overnight, patient will be transferred to the floor. MR of right knee ordered. 05/01; patient had arthrocentesis 05/02; ID recommended total 6 weeks of Rocephin, case management to assist with antibiotics 05/02; patient is febrile, sepsis and positive cultures, currently on Rocephin, ID following 05/03; patient remains on tube feeding, speech therapist has not cleared for oral nutrition, aspiration risk Septic arthritis awaiting synovial debridement knee joint 05/04; blood sugars are uncontrolled Lantus insulin was stopped due to surgical procedure yesterday, Resumed Novolin 70/30, closely monitor and adjust the dose as needed 05/05; patient received 1 unit of PRBC yesterday, a.m. hemoglobin remains 6.8 after transfusion, recheck H&H, transfuse additional PRBC Patient remains on tube feedings, speech therapy following, on long-term antibiotics for her septic knee total 6 weeks 05/06/2021 Patient remains on tube feedings Speech therapy 6 weeks of antibiotics for septic arthritis If patient can swallow and tube feedings are discontinued--- patient can have IV antibiotics as outpatient Not ready for discharge Disposition; follow clinically, follow consultants recommendations discharge when stable 05/07: Patient seen and examined, remains quit ill, NG tube still in place hemoglobin is still 6.9 despite second unit transfusion done. Hard sure where this is coming from unsure why the patient is not able to eat. Will obtain MRI of the head to further evaluate and also obtain stool for occult blood to further elicit. In the meantime this is a painless delay in discharge and once that is rectified placement is already being pursued by case management. Dressing in the knee is in place. 05/08: Patient seen and examined with repeat of blood transfusion today. Right calf remarkably enlarged not sure of the size prior but is tender to touch while awaiting stool for occult blood for which I ordered lactulose today will obtain a CT scan of the calf to ensure no hematoma. This has been discussed with the surgeon orthopedic and he is agreeable to this. Still concerns why the patient has repeated fever could also be due to hematoma but nevertheless an x-ray of the chest shows atelectasis I have counseled the patient on incentive spirometer use as this will help her clinical condition underlying atelectasis. At this time continue antibiotic therapy. Discussed with nursing staff management to obtain stool for occult blood for further evaluation. Long-term placement likely will be optional for this patient MRI of the head did not reveal any stroke contributing to the oropharyngeal dysphagia. Will await speech therapist input -Anemia; Hb 6.8-6.9 Received 1 unit PRBC yesterday 05/05/2021 Ordered repeat prbc This morning Hb 6.9, transfuse DESPITE SECOND unit PRBC today Check stool for occult blood, WAS NOT ORDERED, BUT NOW ORDERED, monitor H&H --Oropharyngeal dysphagia; On tube feeding, Speech therapy following start oral nutrition when speech therapist clears MRI HEAD TO ENSURE NO STROKE UNSURE WHAT THE ETIOLOGY IS. --Septic arthritis; knee; Ortho is planning knee/synovial debridement 04/30/2021;s/p arthrocentesis 05/03/2021 s/p Incision and drainage followed by arthroscopic exam of the right knee Continue antibiotics per ID total 6 weeks -- Sepsis, group B Streptococcus bacteremia, h/o right septic arthritis -Infectious disease consulted, appreciate recommendations -ABX therapy per ID: Ceftriaxone 2 g every 24 hours -Right knee x-ray shows large joint effusion s/p arthrocentesis Positive synovial fluid cultures, ID recommended total 6 weeks of Rocephin --Acute metabolic encephalopathy (improved significantly) Patient is more alert and awake, supportive care -Echocardiogram shows mildly dilated right heart chamber, mild to moderate TR, moderate pulmonary hypertension, RVSP 50-55, LVEF 45-50 --Respiratory: Acute hypoxic respiratory failure Nasal cannula oxygen, intermittent BiPAP Home O2 evaluation --Severe protein calorie malnutrition --Hypoalbuminemia, albumin 1.7 Dietitian/roofing contractor following Continue tube feeding, nutrition supplements Supportive care -- Hypernatremia (resolved) Closely monitor electrolytes --Leukocytosis/trending down Secondary to sepsis, continue antibiotics and supportive care Closely monitor --S/p DKA, h/o uncontrolled DM/present on admission -Hemoglobin A1c 18.3 Blood sugars moderate control -Avoid hypoglycemia Accu-Chek sliding scale coverage tube feeding Glucerna --DVT prophylaxis Subcu Lovenox --Full CODE STATUS Will closely monitor the patient and adjust the management as needed Plan of care reviewed with the patient and her nurse Motor Builder Assembler recommendations noted and appreciated History Interval history: Patient seen and examined this morning more awake, still with NG tube hemoglobin still low despite transfusion. Complaints of right calf pain no stool documented since the 16th Hospitalist Physical - Physical exam Narrative exam: General appearance: Present: no acute distress, well-nourished - EENT Eyes: PERRL, EOM intact ENT: hearing intact, clear oral mucosa, other (NG tube in place) Ears: bilateral: normal - Neck Neck: supple, normal ROM - Respiratory Respiratory effort: normal Respiratory: bilateral: CTA - Breasts Breasts: normal - Cardiovascular Heart rate: 78 Rhythm: regular Heart Sounds: Present: S1 & S2. Absent: gallop, rub Extremities: pulses intact, No edema, normal color, Full ROM - Gastrointestinal General gastrointestinal: Present: soft, non-tender, non-distended, normal bowel sounds - Integumentary Integumentary: warm, dry, DRESSING IN THE RIGHT KNEE, RIGHT CALF TENDER AND ENLARGED - Musculoskeletal Musculoskeletal:strength equal bilaterally, DRESSING TO RIGHT KNEE - Neurologic Neurologic: moves all extremities - Psychiatric Psychiatric: memory intact, appropriate mood/affect, intact judgment & insight - Constitutional Vitals: Temp Pulse Resp BP Pulse Ox 101.2 F H 110 H 20 158/80 95 05/08/21 05:51 05/08/21 05:51 05/08/21 05:51 05/08/21 05:51 05/08/21 05:51 General appearance: Present: no acute distress, well-nourished HEART Score - HEART Score Troponin: Troponin T < 0.010 ng/mL (0.00-0.029) 04/23/21 10:33 Results - Labs CBC & Chem 7: 05/07/21 Unknown 05/05/21 06:15 Labs: Laboratory Last Values WBC 7.6 K/mm3 (4.5-11.0) 05/07/21 Unknown RBC 2.66 M/mm3 (3.65-5.03) L 05/07/21 Unknown Hgb 6.9 gm/dl (10.1-14.3) L 05/07/21 Unknown Hct 22.3 % (30.3-42.9) L 05/07/21 Unknown MCV 84 fl (79-97) 05/07/21 Unknown MCH 26 pg (28-32) L 05/07/21 Unknown MCHC 31 % (30-34) 05/07/21 Unknown RDW 15.4 % (13.2-15.2) H 05/07/21 Unknown Plt Count 449 K/mm3 (140-440) H 05/07/21 Unknown Lymph % (Auto) 22.8 % (13.4-35.0) 05/07/21 Unknown [place] % (Auto) 4.4 % (0.0-7.3) 05/07/21 Unknown Eos % (Auto) 1.2 % (0.0-4.3) 05/07/21 Unknown Baso % (Auto) 0.9 % (0.0-1.8) 05/07/21 Unknown Lymph # (Auto) 1.7 K/mm3 (1.2-5.4) 05/07/21 Unknown [place]uming # (Auto) 0.3 K/mm3 (0.0-0.8) 05/07/21 Unknown Eos # (Auto) 0.1 K/mm3 (0.0-0.4) 05/07/21 Unknown Baso # (Auto) 0.1 K/mm3 (0.0-0.1) 05/07/21 Unknown Add Manual Diff Complete 04/25/21 08:10 Total Counted 100 04/25/21 08:10 Seg Neutrophils % 70.7 % (40.0-70.0) H 05/07/21 Unknown Seg Neuts % (Manual) 33.0 % (40.0-70.0) L 04/25/21 08:10 Band Neutrophils % 23.0 % 04/25/21 08:10 Lymphocytes % (Manual) 19.0 % (13.4-35.0) 04/25/21 08:10 Reactive Lymphs % (Man) 1.0 % 04/25/21 08:10 Monocytes % (Manual) 1.0 % (0.0-7.3) 04/25/21 08:10 Eosinophils % (Manual) 1.0 % (0.0-4.3) 04/25/21 08:10 Metamyelocytes % 3.0 % 04/23/21 10:33 Myelocytes % 22.0 % 04/25/21 08:10 Nucleated RBC % Not Reportable 04/25/21 08:10 Seg Neutrophils # 5.4 K/mm3 (1.8-7.7) 05/07/21 Unknown Seg Neutrophils # Man 1.9 K/mm3 (1.8-7.7) 04/25/21 08:10 Band Neutrophils # 1.3 K/mm3 04/25/21 08:10 Lymphocytes # (Manual) 1.1 K/mm3 (1.2-5.4) L 04/25/21 08:10 Abs React Lymphs (Man) 0.1 K/mm3 04/25/21 08:10 Monocytes # (Manual) 0.1 K/mm3 (0.0-0.8) 04/25/21 08:10 Eosinophils # (Manual) 0.1 K/mm3 (0.0-0.4) 04/25/21 08:10 Basophils # (Manual) 0.0 K/mm3 (0.0-0.1) 04/25/21 08:10 Metamyelocytes # 0.0 K/mm3 04/25/21 08:10 Myelocytes # 1.3 K/mm3 04/25/21 08:10 Promyelocytes # 0.0 K/mm3 04/25/21 08:10 Blast Cells # 0.0 K/mm3 04/25/21 08:10 WBC Morphology Not Reportable 04/25/21 08:10 Hypersegmented Neuts Not Reportable 04/25/21 08:10 Hyposegmented Neuts Not Reportable 04/25/21 08:10 Hypogranular Neuts Not Reportable 04/25/21 08:10 Smudge Cells Not Reportable 04/25/21 08:10 Toxic Granulation Not Reportable 04/25/21 08:10 Toxic Vacuolation Not Reportable 04/25/21 08:10 Dohle Bodies Not Reportable 04/25/21 08:10 Pelger-Huet Anomaly Not Reportable 04/25/21 08:10 Thierry Rods Not Reportable 04/25/21 08:10 Platelet Estimate Consistent w auto 04/25/21 08:10 Clumped Platelets Not Reportable 04/25/21 08:10 Plt Clumps, EDTA Not Reportable 04/25/21 08:10 Large Platelets Not Reportable 04/25/21 08:10 Giant Platelets Not Reportable 04/25/21 08:10 Platelet Satelliting Not Reportable 04/25/21 08:10 Plt Morphology Comment Not Reportable 04/25/21 08:10 RBC Morphology Not Reportable 04/25/21 08:10 Dimorphic RBCs Not Reportable 04/25/21 08:10 Polychromasia Not Reportable 04/25/21 08:10 Hypochromasia 1+ 04/25/21 08:10 Poikilocytosis Not Reportable 04/25/21 08:10 Anisocytosis Not Reportable 04/25/21 08:10 Microcytosis Not Reportable 04/25/21 08:10 Macrocytosis Not Reportable 04/25/21 08:10 Spherocytes Not Reportable 04/25/21 08:10 Pappenheimer Bodies Not Reportable 04/25/21 08:10 Sickle Cells Not Reportable 04/25/21 08:10 Target Cells Not Reportable 04/25/21 08:10 Tear Drop Cells Not Reportable 04/25/21 08:10 Ovalocytes Not Reportable 04/25/21 08:10 Helmet Cells Not Reportable 04/25/21 08:10 [place] Bodies Not Reportable 04/25/21 08:10 [place] Rings Not Reportable 04/25/21 08:10 Kamari Cells Not Reportable 04/25/21 08:10 Bite Cells Not Reportable 04/25/21 08:10 Crenated Cell Not Reportable 04/25/21 08:10 Elliptocytes Not Reportable 04/25/21 08:10 Acanthocytes (Spur) Not Reportable 04/25/21 08:10 Rouleaux Not Reportable 04/25/21 08:10 Hemoglobin C Crystals Not Reportable 04/25/21 08:10 Schistocytes Not Reportable 04/25/21 08:10 Malaria parasites Not Reportable 04/25/21 08:10 Juan Bodies Not Reportable 04/25/21 08:10 Hem Pathologist Commnt No 04/25/21 08:10 ABG pH 7.426 pH Units (7.350-7.450) 04/25/21 11:20 ABG pCO2 25.3 mm Hg 04/25/21 11:20 ABG pO2 73.2 mm Hg (80.0-90.0) L 04/25/21 11:20 ABG HCO3 16.2 mmol/L (20.0-26.0) L 04/25/21 11:20 ABG O2 Saturation 96.9 % (95.0-99.0) 04/25/21 11:20 ABG O2 Content 11.6 (0.0-44) 04/25/21 11:20 ABG Base Excess -7.1 mmol/L (-2.0-3.0) L 04/25/21 11:20 ABG Hemoglobin 8.7 gm/dl (12.0-16.0) L 04/25/21 11:20 ABG Carboxyhemoglobin 1.6 % (0.0-5.0) 04/25/21 11:20 ABG Methemoglobin 0.6 % (0.0-1.5) 04/25/21 11:20 VBG pH 7.180 (7.320-7.420) L* 04/23/21 10:33 Oxyhemoglobin 94.8 % (95.0-99.0) L 04/25/21 11:20 FiO2 28 % 04/25/21 11:20 Sodium 139 mmol/L (137-145) 05/05/21 06:15 Potassium 4.3 mmol/L (3.6-5.0) 05/05/21 06:15 Chloride 101.6 mmol/L (98-107) 05/05/21 06:15 Carbon Dioxide 26 mmol/L (22-30) 05/05/21 06:15 Anion Gap 16 mmol/L 05/05/21 06:15 BUN 52 mg/dL (7-17) H 05/05/21 06:15 Creatinine 1.2 mg/dL (0.6-1.2) 05/05/21 06:15 Estimated GFR 58 ml/min 05/05/21 06:15 BUN/Creatinine Ratio 43 % 05/05/21 06:15 Glucose 430 mg/dL (65-100) H 05/05/21 06:15 POC Glucose 194 mg/dL (70-105) H 05/08/21 07:51 Hemoglobin A1c 18.3 % (4-6) H 04/24/21 04:16 Lactic Acid 1.70 mmol/L (0.7-2.0) 04/26/21 05:02 Uric Acid 7.5 mg/dL (3.5-7.6) 04/24/21 12:14 Calcium 8.4 mg/dL (8.4-10.2) 05/05/21 06:15 Phosphorus 4.50 mg/dL (2.5-4.5) 04/30/21 04:41 Magnesium 2.10 mg/dL (1.7-2.3) 05/03/21 07:05 Total Bilirubin 0.50 mg/dL (0.1-1.2) 04/30/21 04:41 AST 12 units/L (5-40) 04/30/21 04:41 ALT 7 units/L (7-56) 04/30/21 04:41 Alkaline Phosphatase 171 units/L (35-129) H 04/30/21 04:41 Ammonia 37.0 umol/L (25-60) 04/23/21 10:33 Total Creatine Kinase 83 units/L (30-135) 04/23/21 10:33 Troponin T < 0.010 ng/mL (0.00-0.029) 04/23/21 10:33 C-Reactive Protein 24.30 mg/dL (0.00-1.30) H 04/24/21 18:24 Total Protein 6.1 g/dL (6.3-8.2) L 04/30/21 04:41 Albumin 1.4 g/dL (3.9-5) L 04/30/21 04:41 Albumin/Globulin Ratio 0.3 % 04/30/21 04:41 Procalcitonin 21.10 ng/mL (<0.15) 04/24/21 12:14 TSH 1.400 mlU/mL (0.270-4.200) 04/23/21 10:33 Urine Color Katie (Yellow) 04/27/21 16:16 Urine Turbidity Cloudy (Clear) 04/27/21 16:16 Urine pH 5.0 (5.0-7.0) 04/27/21 16:16 Ur Specific [place] 1.014 (1.003-1.030) 04/27/21 16:16 Urine Protein <15 mg/dl mg/dL (Negative) 04/27/21 16:16 Urine Glucose (UA) >=500 mg/dL (Negative) 04/27/21 16:16 Urine Ketones Neg mg/dL (Negative) 04/27/21 16:16 Urine Blood Neg (Negative) 04/27/21 16:16 Urine Nitrite Neg (Negative) 04/27/21 16:16 Urine Bilirubin Neg (Negative) 04/27/21 16:16 Urine Urobilinogen 2.0 mg/dL (<2.0) 04/27/21 16:16 Ur Leukocyte Esterase Neg (Negative) 04/27/21 16:16 Urine WBC (Auto) 1.0 /HPF (0.0-6.0) 04/27/21 16:16 Urine RBC (Auto) 1.0 /HPF (0.0-6.0) 04/27/21 16:16 U Epithel Cells (Auto) < 1.0 /HPF (0-13.0) 04/24/21 08:40 Urine Bacteria (Auto) 1+ /HPF (Negative) 04/27/21 16:16 Amorphous Crystals Few 04/27/21 16:16 Urine Yeast (Budding) 3+ /HPF 04/27/21 16:16 Vancomycin Trough 38.2 ug/mL (5.0-20.0) H 04/26/21 19:27 Coronavirus (PCR) Negative (Negative) 04/25/21 Unknown Blood Type A POSITIVE 05/03/21 18:00 Antibody Screen Negative 05/03/21 18:00 Crossmatch See Detail 05/03/21 18:00 Sanchez/IV: Voiding Method Indwelling Catheter Active Medications - Current Medications Current Medications: Generic Name Dose Route Start Last Admin Trade Name Freq PRN Reason Stop Dose Admin Acetaminophen 650 mg 04/23/21 11:54 05/08/21 06:27 Acetaminophen 325 Mg Tab PO 650 mg Q6H PRN Administration Pain MILD(1-3)/Fever >100.5/SMITH Albuterol 2.5 mg 05/02/21 12:56 05/07/21 04:22 Albuterol 2.5 Mg/3 Ml Nebu IH 2.5 mg Q4HRT PRN Administration Shortness Of Breath Lipase/Protease/Amylase 1 each 05/06/21 16:05 Lipase 10,500/Protease 25,000/Amylase 43,750 (Units) Dr Rodriguez FEEDTUBE PRN PRN For Clogged Feeding Tube Dextrose 50 ml 04/26/21 14:00 Dextrose 50% In Water (25gm) 50 Ml Syringe IV Q30MIN PRN Hypoglycemia Protocol Famotidine 20 mg 04/29/21 10:00 05/07/21 09:05 Famotidine 20 Mg Tab FEEDTUBE 20 mg DAILY AMIRA Administration Hydromorphone HCl 0.5 mg 04/23/21 11:54 05/07/21 12:00 Hydromorphone 1 Mg/1 Ml Inj IV 0.5 mg Q23H PRN Administration Pain , Severe (7-10) Cefazolin Sodium 2 gm/ Sodium 100 mls @ 200 mls/hr 05/02/21 14:00 05/08/21 02:20 Chloride IV 06/14/21 20:29 200 mls/hr Q6H AMIRA Administration Protocol Sodium Chloride 500 mls @ 0 mls/hr 05/08/21 07:16 Nacl 0.9% 500 Ml IV 05/09/21 07:15 ONCE NR As Directed Insulin Human Isoph/Insulin Regular 48 unit 05/02/21 09:30 05/07/21 18:06 Insulin Nph/Regular 70/30 Inj SUB-Q 48 unit BIDDIAB AMIRA Administration Insulin Human Lispro 0 unit 04/29/21 12:00 05/08/21 06:28 Insulin Lispro 100 Unit/Ml SUB-Q 3 unit Q6HR AMIRA Administration Protocol Ketorolac Tromethamine 15 mg 05/03/21 18:59 Ketorolac 30 Mg/1 Ml Inj IV 05/08/21 18:58 Q6H PRN Pain, Moderate (4-6) Lactulose 20 gm 05/08/21 08:00 Lactulose 20 Gm/30 Ml Oral Liqd PO 05/08/21 14:01 Q6H AMIRA Metoclopramide HCl 5 mg 05/08/21 08:00 Metoclopramide 10 Mg/10 Ml Oral Liqd FEEDTUBE ACHS AMIRA Morphine Sulfate 2 mg 05/03/21 18:59 05/08/21 02:57 Morphine 2 Mg/1 Ml Inj IV 2 mg Q4H PRN Administration Pain, Moderate (4-6) Morphine Sulfate 4 mg 05/03/21 18:59 Morphine 4 Mg/1 Ml Inj IV Q4H PRN Pain , Severe (7-10) Oxycodone/Acetaminophen 1 tab 04/23/21 11:54 05/07/21 09:05 Oxycodone /Acetaminophen 5-325mg Tab PO 1 tab Q16H PRN Administration Pain, Moderate (4-6) Senna 17.2 mg 04/25/21 22:00 05/07/21 21:11 Sennosides 8.6 Mg Tab PO Not Given QHS AMIRA Simple Syrup 15 ml 05/06/21 16:05 Simple Syrup 15 Ml FEEDTUBE PRN PRN Hypoglycemia Simple Syrup 30 ml 05/06/21 16:05 Simple Syrup 15 Ml FEEDTUBE PRN PRN Hypoglycemia Sodium Bicarbonate 325 mg 05/06/21 16:05 Sodium Bicarbonate 325 Mg Tab FEEDTUBE PRN PRN For Clogged Feeding Tube Sodium Chloride 10 ml 04/23/21 22:00 05/07/21 21:11 Sodium Chloride 0.9% 10 Ml Flush Syringe IV 10 ml BID AMIRA Administration Sodium Chloride 10 ml 04/23/21 11:54 04/24/21 11:15 Sodium Chloride 0.9% 10 Ml Flush Syringe IV 10 ml PRN PRN Administration LINE FLUSH Sodium Chloride 10 ml 05/03/21 19:00 Sodium Chloride 0.9% 10 Ml Flush Syringe IV PRN AMIRA Nutrition/Malnutrition Assess - Dietary Evaluation Nutrition/Malnutrition Findings: Nutrition Notes Start: 04/26/21 09:53 Freq: Status: Active Protocol: Document 05/06/21 16:07 HOANG (Rec: 05/06/21 16:09 [facility] [id number]) Nutrition Notes Initial or Follow up Brief Note Current Diet TF - Vital AF 1.2 at 65ml/hr Labs/Tests POC Glu: 147, 200 Subjective/Other Information BALLAST REGULATOR OPERATOR evaluated pt yesterday; recommended continued NPO status. Pt scheduled for D/C today. Nutrition Intervention Nutrition Support: Glucerna 1.2 currently out of stock. Will substitute with Vital AF 1.2 at 65ml/hr with 100ml water flush q4h. Follow-Up By: 05/08/21 Additional Comments F/U: Change TF formula back to Glucerna 1.2 if back in stock
--- NOTE | 2021-05-08 11:26 | Progress Note ---
Assessment and Plan Cultures: 04/24/2021 Blood culture: GBS Blood culture 04/26/2021: No growth 04/30/2021 R knee synovial fluid culture: Group B Streptococcus 05/03/2021 right knee OR culture: No growth A/P: 51 yo F with DM2, HTN, morbid obesity presented with sepsis #Acute sepsis: secondary to group B streptococcus bacteremia, source is R knee. #Group B streptococcus bacteremia secondary to R knee septic arthritis: Reports a history of previous right knee septic arthritis and has been treated with antibiotics at least twice in the past. X-ray shows large joint effusion. TTE without any evidence of valvular vegetations/endocarditis. Arthrocentesis culture also positive. Status post I&D followed by arthroscopic examination of right knee on 05/03/2021, as per operative note, "entered the joint proper with return of copious amounts of purulent material" and "significant cartilage degeneration from repeated infections" #DM2: tight glycemic control for best outcomes. Recs: -continue higher dose IV Ancef due to her morbid obesity -Follow-up CT R leg and knee report. Official read is pending but there seems to be a loculated collection in the right knee anterior to the femur with some air bubbles, may represent residual infection. Defer additional surgical needs to orthopedics who is following. -will need a longer ~6 weeks course of IV abx after surgery due to her history of recurrence / chronicity and possibility of osteomyelitis, extensive cartilage degeneration. -upon discharge, continue IV Ceftriaxone ending 06/14/2021, CM orders have already been placed Holly Leroy MD, FACP, [facility] O: [phone] F: [phone] Subjective Date of service: 05/08/21 Principal diagnosis: HAGMA; DKA; AMS; Obesity; Osteoarthritis; Hypercalcemia Interval history: Febrile again today with T-max of 101.2 F. R knee pain present. Objective - Exam Narrative Exam: Physical Exam: Constitutional: Alert, cooperative. Head, Ears, Nose: Normocephalic, atraumatic. External ears, nose normal Eyes: Conjunctivae/corneas clear. No icterus. No ptosis. Neck: Supple, no meningeal signs Cardiovascular: S1, S2 + Respiratory: Good air entry, clear to auscultation bilaterally GI: Soft, non-tender; bowel sounds normal. No peritoneal signs Musculoskeletal: Right knee with dressing +, swelling and tenderness + Skin: No rash or abscess Hem/Lymphatic: No palpable cervical or supraclavicular nodes. No lymphangitis Psych: Mood ok. Affect normal Neurological: Awake, alert, oriented. No gross abnormality - Constitutional Vitals: Vital Signs Temp Pulse Resp BP Pulse Ox 101.2 F H 110 H 20 158/80 95 05/08/21 05:51 05/08/21 05:51 05/08/21 05:51 05/08/21 05:51 05/08/21 05:51 Temperature -Last 24 Hours Temperature 101.2 F Temperature 97.2 F - Labs CBC & Chem 7: 05/07/21 Unknown 05/05/21 06:15 Labs: Abnormal lab results 05/07/21 05/07/21 05/08/21 Range/Units 13:27 18:03 06:10 POC Glucose 149 H 127 H 190 H (70-105) mg/dL 05/08/21 Range/Units 07:51 POC Glucose 194 H (70-105) mg/dL
--- NOTE | 2021-05-08 11:31 | Cat Scan Report ---
CT RIGHT KNEE WITHOUT CONTRAST INDICATION / CLINICAL INFORMATION: hematoma. History of septic arthritis. TECHNIQUE: All CT scans at this location are performed using CT dose reduction for ALARA by means of automated exposure control. COMPARISON: Radiographs dated 05/08/2021 FINDINGS: BONES/JOINTS: Advanced tricompartmental erosions and cortical irregularity. Subluxation of the femur relative to the tibia is unchanged from radiograph. Large complex joint effusion containing small foc i of gas. No fracture identified. MUSCLES / TENDONS: There is multicompartment atrophy of the muscles. SOFT TISSUES: Vascular calcifications. ADDITIONAL FINDINGS: None. IMPRESSION: 1. Advanced tricompartmental erosions and irregularity of subchondral bone with large complex joint e ffusion compatible with history of septic arthritis. Alternatively, advanced inflammatory arthropathy could have similar appearance. Small foci of gas in the joint effusion may be from recent aspiration /surgery. Recommend clinical correlation. Report dictated by: Ignacio Reaves MD Report dictated on: 05/08/2021 9:22 AM I have reviewed the images, agree with this report, and edited this report as needed. Signer Name: Shannon Ramos MD Signed: 05/08/2021 11:27 AM Workstation Name: [id number]
[2021-05-08] MEDS: FAMOTIDINE 20 MG TAB FEEDTUBE SCH (12:10)
[2021-05-08] MEDS: LACTULOSE 20 GM/30 ML ORAL LIQD PO SCH ×2 (12:10→18:31)
[2021-05-08] MEDS: METOCLOPRAMIDE 10 MG/10 ML ORAL LIQD FEEDTUBE SCH ×4 (12:10→22:07)
[2021-05-08] MEDS: HYDROmorphone 1 MG/1 ML INJ IV PRN (12:14)
[2021-05-08 12:48] LABS: Hematocrit 20.1 % (30.3-42.9); Hemoglobin 6.6 gm/dl (10.1-14.3); Mean Corpuscular HGB Conc 33 % (30-34); Mean Corpuscular Volume 83 fl (79-97); Platelet Count 452 K/mm3 (140-440); Red Blood Count 2.42 M/mm3 (3.65-5.03); Red Cell Distribution Width 15.3 % (13.2-15.2)
[2021-05-08 13:13] LABS: BUN/Creatinine Ratio 30; Blood Urea Nitrogen 27 mg/dL (7-17); Calcium 7.9 mg/dL (8.4-10.2); Hemolysis Index 0
--- NOTE | 2021-05-08 19:27 | Progress Note ---
Assessment and Plan 51 YO Female with DM, OA, Medication Noncompliance, Obesity presents to ED for evaluation. Patient reports "I feel sick". Patient states she had experienced weakness, elevated blood glucose levels, nausea, polydipsia, polyuria, as well a s diminished oral intake over the past 1 week with worsening symptoms over the last 2 days. Patient acknowledges noncompliance with oral antihyperglycemic therapy. Patient states that her weight has gotten progressively worse and and that she is "too weak to walk". EMS was notified and upon arrival the patient was found to be in distress and subsequent transported to [facility] for further care and evaluation of the aforementioned symptoms. The patient was seen and evaluated in the emergency department. All lab and imaging studies reviewed. The patient was found to have diabetic ketoacidosis, metabolic encephalopathy, as well as metabolic acidosis, and volume depletion. Patient mated to ICU and initiated on DKA protocol. Critical care team consulted in ED. Patient has fever, chills, chest pain, palpitation, productive cough, skin rash, recent contact, known exposure to COVID-1 Patients sullivan virus PCR is negative. Patient is awake. Patient is on 1 litre O2. O2 saturation 97%. Patient states she is breathing okay. Patient afebrile. No leukocytosis. Blood pressure 168/75, Pulse 109, respirations 18 Today's Hgb is 6.6. Recommend blood transfusion. Chest xray done 04/29/21 reported Low lung volumes with bibasilar opacities/atelectasis persists, unchanged. No pneumothorax. Chest xray done 05/08/21 reported table, mild increased densities and atelectasis in the lower lungs. No pneumothorax. Patient had right knee surgery. Complaining of slight pain at the right knee. Patient is on Cefazolin, Albuterol aerosol treatments and famotidine. - Patient Problems (1) High anion gap metabolic acidosis Current Visit: Yes Status: Acute Plan to address problem: Resolved. Recent anion gap is 11 (2) DKA (diabetic ketoacidosis) Current Visit: Yes Status: Acute Qualifiers: Diabetes mellitus type: type 1 Plan to address problem: Improved. Management as primary care. (3) Metabolic encephalopathy Current Visit: Yes Status: Acute Plan to address problem: Management as primary care and neurology. (4) Abscess of right foot Current Visit: No Status: Acute Plan to address problem: Management as primary care and ID Patient started on Cefazolin (5) Diabetic ulcer of right foot associated with diabetes mellitus due to underlying condition, with fat layer exposed Current Visit: No Status: Acute Plan to address problem: Management as per primary care. (6) Hypertension Current Visit: No Status: Chronic Plan to address problem: Management as primary care. Subjective Date of service: 05/08/21 Principal diagnosis: HAGMA; DKA; AMS; Obesity; Osteoarthritis; Hypercalcemia Interval history: 51 YO Female with DM, OA, Medication Noncompliance, Obesity presents to ED for evaluation. Patient reports "I feel sick". Patient states she had experienced weakness, elevated blood glucose levels, nausea, polydipsia, polyuria, as well as diminished oral intake over the past 1 week with worsening symptoms over the last 2 days. Patient acknowledges noncompliance with oral antihyperglycemic therapy. Patient states that her weight has gotten progressively worse and and that she is "too weak to walk". EMS was notified and upon arrival the patient was found to be in distress and subsequent transported to [facility] for further care and evaluation of the aforementioned symptoms. The patient was seen and evaluated in the emergency department. All lab and imaging studies reviewed. The patient was found to have diabetic ketoacidosis, metabolic encephalopathy, as well as metabolic acidosis, and volume depletion. Patient mated to ICU and initiated on DKA protocol. Critical care team consulted in ED. Patient has fever, chills, chest pain, palpitation, productive cough, skin rash, recent contact, known exposure to COVID-1 Patients sullivan virus PCR is negative. Patient is awake. Patient is on 1 litre O2. O2 saturation 97%. Patient states she is breathing okay. Patient afebrile. No leukocytosis. Blood pressure 168/75, Pulse 109, respirations 18 Today's Hgb is 6.6. Recommend blood transfusion. Chest xray done 04/29/21 reported Low lung volumes with bibasilar opaciti es/atelectasis persists, unchanged. No pneumothorax. Chest xray done 05/08/21 reported table, mild increased densities and atelectasis in the lower lungs. No pneumothorax. Patient had right knee surgery. Complaining of slight pain at the right knee. Patient is on Cefazolin, Albuterol aerosol treatments and famotidine. Objective Vital Signs - 12hr 1205/08/21 05/08/21 10:40 11:52 18:51 Temperature 98.8 F 98.8 F Pulse Rate 98 H 109 H Respiratory 20 18 Rate Blood Pressure 149/78 168/75 [Right] O2 Sat by Pulse 93 Oximetry Constitutional: no acute distress, alert Eyes: non-icteric ENT: oropharynx moist Neck: supple, no lymphadenopathy, no JVD Effort: normal Ascultation: Bilateral: diminished breath sounds, rhonchi (and referred upper airway sounds) Percussion: Bilateral: not dull Cardiovascular: regular rate and rhythm, other (S1,S2) Gastrointestinal: hypoactive bowel sounds, soft, non-tender, non-distended Integumentary: rash (perineal) Extremities: no cyanosis, no edema, pulses normal, no ischemia or petechiae, other (Right knee surgery.) Neurologic: normal mental status, non-focal exam, pupils equal and round, other Psychiatric: anxious CBC and BMP: 05/09/21 07:34 05/09/21 07:34 ABG, PT/INR, D-dimer: ABG ABG pH 7.426 pH Units (7.350-7.450) 04/25/21 11:20 ABG pCO2 25.3 mm Hg 04/25/21 11:20 ABG pO2 73.2 mm Hg (80.0-90.0) L 04/25/21 11:20 ABG O2 Saturation 96.9 % (95.0-99.0) 04/25/21 11:20 Abnormal lab findings: Abnormal Labs 04/23/21 04/23/21 04/23/21 10:33 10:33 10:33 WBC RBC Hgb Hct MCV MCH 26 L RDW Plt Count Lymph % (Auto) Seg Neutrophils % Seg Neuts % (Manual) Lymphocytes % (Manual) 7.0 L Nucleated RBC % 2.0 H Seg Neutrophils # Lymphocytes # (Manual) 0.5 L ABG pO2 ABG HCO3 ABG Base Excess ABG Hemoglobin VBG pH 7.180 L* Oxyhemoglobin Sodium 122 L Potassium 3.0 L Chloride 84.8 L Carbon Dioxide 6 L* BUN 49 H Creatinine 1.4 H Glucose 775 H* POC Glucose Hemoglobin A1c Lactic Acid Calcium 12.2 H* Phosphorus Magnesium Alkaline Phosphatase 130 H C-Reactive Protein Total Protein Albumin 2.9 L Vancomycin Trough Crossmatch 04/23/21 04/23/21 04/23/21 10:40 12:44 14:01 WBC RBC Hgb Hct MCV MCH RDW Plt Count Lymph % (Auto) Seg Neutrophils % Seg Neuts % (Manual) Lymphocytes % (Manual) Nucleated RBC % Seg Neutrophils # Lymphocytes # (Manual) ABG pO2 ABG HCO3 ABG Base Excess ABG Hemoglobin VBG pH Oxyhemoglobin Sodium Potassium Chloride Carbon Dioxide BUN Creatinine Glucose POC Glucose > 600 H 550 H Hemoglobin A1c Lactic Acid Calcium Phosphorus 1.50 L Magnesium Alkaline Phosphatase C-Reactive Protein Total Protein Albumin Vancomycin Trough Crossmatch 04/23/21 04/23/21 04/23/21 14:01 14:04 14:56 WBC RBC Hgb Hct MCV MCH RDW Plt Count Lymph % (Auto) Seg Neutrophils % Seg Neuts % (Manual) Lymphocytes % (Manual) Nucleated RBC % Seg Neutrophils # Lymphocytes # (Manual) ABG pO2 ABG HCO3 ABG Base Excess ABG Hemoglobin VBG pH Oxyhemoglobin Sodium 125 L Potassium 3.0 L Chloride 89.2 L Carbon Dioxide 6 L* BUN 45 H Creatinine 1.3 H Glucose 594 H* POC Glucose 518 H 425 H Hemoglobin A1c Lactic Acid Calcium 10.9 H Phosphorus Magnesium Alkaline Phosphatase C-Reactive Protein Total Protein Albumin Vancomycin Trough Crossmatch 04/23/21 04/23/21 04/23/21 15:43 15:48 17:21 WBC RBC Hgb Hct MCV MCH RDW Plt Count Lymph % (Auto) Seg Neutrophils % Seg Neuts % (Manual) Lymphocytes % (Manual) Nucleated RBC % Seg Neutrophils # Lymphocytes # (Manual) ABG pO2 ABG HCO3 ABG Base Excess ABG Hemoglobin VBG pH Oxyhemoglobin Sodium 131 L Potassium 2.9 L* Chloride Carbon Dioxide 8 L* BUN 39 H Creatinine Glucose 434 H POC Glucose 410 H 407 H Hemoglobin A1c Lactic Acid Calcium 10.3 H Phosphorus Magnesium Alkaline Phosphatase C-Reactive Protein Total Protein Albumin Vancomycin Trough Crossmatch 04/23/21 04/23/21 04/23/21 18:07 19:13 19:54 WBC RBC Hgb Hct MCV MCH RDW Plt Count Lymph % (Auto) Seg Neutrophils % Seg Neuts % (Manual) Lymphocytes % (Manual) Nucleated RBC % Seg Neutrophils # Lymphocytes # (Manual) ABG pO2 ABG HCO3 ABG Base Excess ABG Hemoglobin VBG pH Oxyhemoglobin Sodium 131 L Potassium 3.1 L Chloride 95.9 L Carbon Dioxide 7 L* BUN 39 H Creatinine Glucose 391 H POC Glucose 428 H 350 H Hemoglobin A1c Lactic Acid Calcium 11.2 H Phosphorus Magnesium Alkaline Phosphatase C-Reactive Protein Total Protein Albumin Vancomycin Trough Crossmatch 04/23/21 04/23/21 04/23/21 19:54 20:12 20:59 WBC RBC Hgb Hct MCV MCH RDW Plt Count Lymph % (Auto) Seg Neutrophils % Seg Neuts % (Manual) Lymphocytes % (Manual) Nucleated RBC % Seg Neutrophils # Lymphocytes # (Manual) ABG pO2 ABG HCO3 ABG Base Excess ABG Hemoglobin VBG pH Oxyhemoglobin Sodium Potassium Chloride Carbon Dioxide BUN Creatinine Glucose POC Glucose 365 H 286 H Hemoglobin A1c Lactic Acid Calcium Phosphorus 1.10 L D Magnesium Alkaline Phosphatase C-Reactive Protein Total Protein Albumin Vancomycin Trough Crossmatch 04/23/21 04/23/21 04/23/21 22:05 22:23 22:59 WBC RBC Hgb Hct MCV MCH RDW Plt Count Lymph % (Auto) Seg Neutrophils % Seg Neuts % (Manual) Lymphocytes % (Manual) Nucleated RBC % Seg Neutrophils # Lymphocytes # (Manual) ABG pO2 ABG HCO3 ABG Base Excess ABG Hemoglobin VBG pH Oxyhemoglobin Sodium 135 L Potassium 3.2 L Chloride Carbon Dioxide 10 L BUN 35 H Creatinine Glucose 300 H POC Glucose 257 H 238 H Hemoglobin A1c Lactic Acid Calcium 11.6 H Phosphorus Magnesium Alkaline Phosphatase C-Reactive Protein Total Protein Albumin Vancomycin Trough Crossmatch 04/23/21 04/24/21 04/24/21 23:57 00:10 00:56 WBC RBC Hgb Hct MCV MCH RDW Plt Count Lymph % (Auto) Seg Neutrophils % Seg Neuts % (Manual) Lymphocytes % (Manual) Nucleated RBC % Seg Neutrophils # Lymphocytes # (Manual) ABG pO2 ABG HCO3 ABG Base Excess ABG Hemoglobin VBG pH Oxyhemoglobin Sodium Potassium 3.2 L Chloride Carbon Dioxide 13 L BUN 33 H Creatinine Glucose 267 H POC Glucose 223 H 254 H Hemoglobin A1c Lactic Acid Calcium 11.2 H Phosphorus 1.20 L Magnesium Alkaline Phosphatase C-Reactive Protein Total Protein Albumin Vancomycin Trough Crossmatch 04/24/21 04/24/21 04/24/21 01:58 02:58 03:57 WBC RBC Hgb Hct MCV MCH RDW Plt Count Lymph % (Auto) Seg Neutrophils % Seg Neuts % (Manual) Lymphocytes % (Manual) Nucleated RBC % Seg Neutrophils # Lymphocytes # (Manual) ABG pO2 ABG HCO3 ABG Base Excess ABG Hemoglobin VBG pH Oxyhemoglobin Sodium Potassium Chloride Carbon Dioxide BUN Creatinine Glucose POC Glucose 264 H 251 H 200 H Hemoglobin A1c Lactic Acid Calcium Phosphorus Magnesium Alkaline Phosphatase C-Reactive Protein Total Protein Albumin Vancomycin Trough Crossmatch 04/24/21 04/24/21 04/24/21 04:16 04:16 04:16 WBC RBC Hgb Hct MCV MCH 26 L RDW Plt Count Lymph % (Auto) Seg Neutrophils % Seg Neuts % (Manual) Lymphocytes % (Manual) Nucleated RBC % Seg Neutrophils # Lymphocytes # (Manual) ABG pO2 ABG HCO3 ABG Base Excess ABG Hemoglobin VBG pH Oxyhemoglobin Sodium Potassium Chloride 108.0 H Carbon Dioxide 13 L BUN 31 H Creatinine Glucose 243 H POC Glucose Hemoglobin A1c 18.3 H Lactic Acid Calcium 10.9 H Phosphorus 1.80 L D Magnesium Alkaline Phosphatase C-Reactive Protein Total Protein Albumin Vancomycin Trough Crossmatch 04/24/21 04/24/21 04/24/21 04:59 05:53 06:51 WBC RBC Hgb Hct MCV MCH RDW Plt Count Lymph % (Auto) Seg Neutrophils % Seg Neuts % (Manual) Lymphocytes % (Manual) Nucleated RBC % Seg Neutrophils # Lymphocytes # (Manual) ABG pO2 ABG HCO3 ABG Base Excess ABG Hemoglobin VBG pH Oxyhemoglobin Sodium Potassium Chloride Carbon Dioxide BUN Creatinine Glucose POC Glucose 208 H 213 H 161 H Hemoglobin A1c Lactic Acid Calcium Phosphorus Magnesium Alkaline Phosphatase C-Reactive Protein Total Protein Albumin Vancomycin Trough Crossmatch 04/24/21 04/24/21 04/24/21 07:58 09:21 10:06 WBC RBC Hgb Hct MCV MCH RDW Plt Count Lymph % (Auto) Seg Neutrophils % Seg Neuts % (Manual) Lymphocytes % (Manual) Nucleated RBC % Seg Neutrophils # Lymphocytes # (Manual) ABG pO2 ABG HCO3 ABG Base Excess ABG Hemoglobin VBG pH Oxyhemoglobin Sodium Potassium Chloride Carbon Dioxide BUN Creatinine Glucose POC Glucose 149 H 178 H 164 H Hemoglobin A1c Lactic Acid Calcium Phosphorus Magnesium Alkaline Phosphatase C-Reactive Protein Total Protein Albumin Vancomycin Trough Crossmatch 04/24/21 04/24/21 04/24/21 11:03 12:07 12:14 WBC RBC Hgb Hct MCV MCH RDW Plt Count Lymph % (Auto) Seg Neutrophils % Seg Neuts % (Manual) Lymphocytes % (Manual) Nucleated RBC % Seg Neutrophils # Lymphocytes # (Manual) ABG pO2 ABG HCO3 ABG Base Excess ABG Hemoglobin VBG pH Oxyhemoglobin Sodium Potassium 3.2 L Chloride 108.7 H Carbon Dioxide 16 L BUN 24 H Creatinine Glucose 160 H POC Glucose 157 H 142 H Hemoglobin A1c Lactic Acid Calcium 10.5 H Phosphorus 0.70 L* D Magnesium Alkaline Phosphatase C-Reactive Protein Total Protein Albumin Vancomycin Trough Crossmatch 04/24/21 04/24/21 04/24/21 12:14 13:02 14:00 WBC RBC Hgb Hct MCV MCH RDW Plt Count Lymph % (Auto) Seg Neutrophils % Seg Neuts % (Manual) Lymphocytes % (Manual) Nucleated RBC % Seg Neutrophils # Lymphocytes # (Manual) ABG pO2 ABG HCO3 ABG Base Excess ABG Hemoglobin VBG pH Oxyhemoglobin Sodium Potassium Chloride Carbon Dioxide BUN Creatinine Glucose POC Glucose 138 H 150 H Hemoglobin A1c Lactic Acid 2.50 H* Calcium Phosphorus Magnesium Alkaline Phosphatase C-Reactive Protein Total Protein Albumin Vancomycin Trough Crossmatch 04/24/21 04/24/21 04/24/21 15:14 16:07 17:11 WBC RBC Hgb Hct MCV MCH RDW Plt Count Lymph % (Auto) Seg Neutrophils % Seg Neuts % (Manual) Lymphocytes % (Manual) Nucleated RBC % Seg Neutrophils # Lymphocytes # (Manual) ABG pO2 ABG HCO3 ABG Base Excess ABG Hemoglobin VBG pH Oxyhemoglobin Sodium Potassium Chloride Carbon Dioxide BUN Creatinine Glucose POC Glucose 145 H 148 H 156 H Hemoglobin A1c Lactic Acid Calcium Phosphorus Magnesium Alkaline Phosphatase C-Reactive Protein Total Protein Albumin Vancomycin Trough Crossmatch 04/24/21 04/24/21 04/24/21 18:12 18:24 19:55 WBC RBC Hgb Hct MCV MCH RDW Plt Count Lymph % (Auto) Seg Neutrophils % Seg Neuts % (Manual) Lymphocytes % (Manual) Nucleated RBC % Seg Neutrophils # Lymphocytes # (Manual) ABG pO2 ABG HCO3 ABG Base Excess ABG Hemoglobin VBG pH Oxyhemoglobin Sodium Potassium Chloride 109.2 H Carbon Dioxide 15 L BUN 22 H Creatinine Glucose 159 H POC Glucose 153 H 176 H Hemoglobin A1c Lactic Acid Calcium Phosphorus 1.80 L D Magnesium Alkaline Phosphatase C-Reactive Protein 24.30 H Total Protein Albumin Vancomycin Trough Crossmatch 04/24/21 04/24/21 04/24/21 20:55 22:04 23:02 WBC RBC Hgb Hct MCV MCH RDW Plt Count Lymph % (Auto) Seg Neutrophils % Seg Neuts % (Manual) Lymphocytes % (Manual) Nucleated RBC % Seg Neutrophils # Lymphocytes # (Manual) ABG pO2 ABG HCO3 ABG Base Excess ABG Hemoglobin VBG pH Oxyhemoglobin Sodium Potassium Chloride Carbon Dioxide BUN Creatinine Glucose POC Glucose 146 H 169 H Hemoglobin A1c Lactic Acid 3.10 H* Calcium Phosphorus Magnesium Alkaline Phosphatase C-Reactive Protein Total Protein Albumin Vancomycin Trough Crossmatch 04/24/21 04/25/21 04/25/21 23:13 00:05 01:28 WBC RBC Hgb Hct MCV MCH RDW Plt Count Lymph % (Auto) Seg Neutrophils % Seg Neuts % (Manual) Lymphocytes % (Manual) Nucleated RBC % Seg Neutrophils # Lymphocytes # (Manual) ABG pO2 ABG HCO3 ABG Base Excess ABG Hemoglobin VBG pH Oxyhemoglobin Sodium Potassium Chloride Carbon Dioxide BUN Creatinine Glucose POC Glucose 144 H 150 H 142 H Hemoglobin A1c Lactic Acid Calcium Phosphorus Magnesium Alkaline Phosphatase C-Reactive Protein Total Protein Albumin Vancomycin Trough Crossmatch 04/25/21 04/25/21 04/25/21 02:03 03:07 04:17 WBC RBC Hgb Hct MCV MCH RDW Plt Count Lymph % (Auto) Seg Neutrophils % Seg Neuts % (Manual) Lymphocytes % (Manual) Nucleated RBC % Seg Neutrophils # Lymphocytes # (Manual) ABG pO2 ABG HCO3 ABG Base Excess ABG Hemoglobin VBG pH Oxyhemoglobin Sodium Potassium Chloride Carbon Dioxide BUN Creatinine Glucose POC Glucose 148 H 161 H 158 H Hemoglobin A1c Lactic Acid Calcium Phosphorus Magnesium Alkaline Phosphatase C-Reactive Protein Total Protein Albumin Vancomycin Trough Crossmatch 04/25/21 04/25/21 04/25/21 05:48 06:52 07:58 WBC RBC Hgb Hct MCV MCH RDW Plt Count Lymph % (Auto) Seg Neutrophils % Seg Neuts % (Manual) Lymphocytes % (Manual) Nucleated RBC % Seg Neutrophils # Lymphocytes # (Manual) ABG pO2 ABG HCO3 ABG Base Excess ABG Hemoglobin VBG pH Oxyhemoglobin Sodium Potassium Chloride Carbon Dioxide BUN Creatinine Glucose POC Glucose 136 H 137 H 143 H Hemoglobin A1c Lactic Acid Calcium Phosphorus Magnesium Alkaline Phosphatase C-Reactive Protein Total Protein Albumin Vancomycin Trough Crossmatch 04/25/21 04/25/21 04/25/21 08:10 08:10 08:10 WBC RBC Hgb 9.5 L Hct 28.8 L MCV MCH 26 L RDW Plt Count Lymph % (Auto) Seg Neutrophils % Seg Neuts % (Manual) 33.0 L Lymphocytes % (Manual) Nucleated RBC % Seg Neutrophils # Lymphocytes # (Manual) 1.1 L ABG pO2 ABG HCO3 ABG Base Excess ABG Hemoglobin VBG pH Oxyhemoglobin Sodium Potassium 3.3 L Chloride 109.0 H Carbon Dioxide 16 L BUN 23 H Creatinine Glucose 151 H POC Glucose Hemoglobin A1c Lactic Acid 2.10 H* Calcium Phosphorus 2.20 L D Magnesium 1.60 L Alkaline Phosphatase C-Reactive Protein Total Protein Albumin Vancomycin Trough Crossmatch 04/25/21 04/25/21 04/25/21 08:53 09:59 11:20 WBC RBC Hgb Hct MCV MCH RDW Plt Count Lymph % (Auto) Seg Neutrophils % Seg Neuts % (Manual) Lymphocytes % (Manual) Nucleated RBC % Seg Neutrophils # Lymphocytes # (Manual) ABG pO2 ABG HCO3 ABG Base Excess ABG Hemoglobin VBG pH Oxyhemoglobin Sodium Potassium Chloride Carbon Dioxide BUN Creatinine Glucose POC Glucose 132 H 141 H 141 H Hemoglobin A1c Lactic Acid Calcium Phosphorus Magnesium Alkaline Phosphatase C-Reactive Protein Total Protein Albumin Vancomycin Trough Crossmatch 04/25/21 04/25/21 04/25/21 11:20 12:04 12:26 WBC RBC Hgb Hct MCV MCH RDW Plt Count Lymph % (Auto) Seg Neutrophils % Seg Neuts % (Manual) Lymphocytes % (Manual) Nucleated RBC % Seg Neutrophils # Lymphocytes # (Manual) ABG pO2 73.2 L ABG HCO3 16.2 L ABG Base Excess -7.1 L ABG Hemoglobin 8.7 L VBG pH Oxyhemoglobin 94.8 L Sodium Potassium 3.4 L Chloride 109.5 H Carbon Dioxide 14 L BUN 21 H Creatinine Glucose 155 H POC Glucose 129 H Hemoglobin A1c Lactic Acid Calcium Phosphorus 1.90 L Magnesium 1.60 L Alkaline Phosphatase C-Reactive Protein Total Protein Albumin Vancomycin Trough Crossmatch 04/25/21 04/25/21 04/25/21 13:04 13:58 15:09 WBC RBC Hgb Hct MCV MCH RDW Plt Count Lymph % (Auto) Seg Neutrophils % Seg Neuts % (Manual) Lymphocytes % (Manual) Nucleated RBC % Seg Neutrophils # Lymphocytes # (Manual) ABG pO2 ABG HCO3 ABG Base Excess ABG Hemoglobin VBG pH Oxyhemoglobin Sodium Potassium Chloride Carbon Dioxide BUN Creatinine Glucose POC Glucose 135 H 140 H 134 H Hemoglobin A1c Lactic Acid Calcium Phosphorus Magnesium Alkaline Phosphatase C-Reactive Protein Total Protein Albumin Vancomycin Trough Crossmatch 04/25/21 04/25/21 04/25/21 16:00 18:56 18:58 WBC RBC Hgb Hct MCV MCH RDW Plt Count Lymph % (Auto) Seg Neutrophils % Seg Neuts % (Manual) Lymphocytes % (Manual) Nucleated RBC % Seg Neutrophils # Lymphocytes # (Manual) ABG pO2 ABG HCO3 ABG Base Excess ABG Hemoglobin VBG pH Oxyhemoglobin Sodium Potassium Chloride Carbon Dioxide BUN Creatinine Glucose POC Glucose 135 H 170 H Hemoglobin A1c Lactic Acid 2.10 H* Calcium Phosphorus Magnesium Alkaline Phosphatase C-Reactive Protein Total Protein Albumin Vancomycin Trough Crossmatch 04/25/21 04/25/21 04/25/21 18:58 19:52 20:53 WBC RBC Hgb Hct MCV MCH RDW Plt Count Lymph % (Auto) Seg Neutrophils % Seg Neuts % (Manual) Lymphocytes % (Manual) Nucleated RBC % Seg Neutrophils # Lymphocytes # (Manual) ABG pO2 ABG HCO3 ABG Base Excess ABG Hemoglobin VBG pH Oxyhemoglobin Sodium Potassium Chloride 110.1 H Carbon Dioxide 13 L BUN 23 H Creatinine Glucose 206 H POC Glucose 162 H 171 H Hemoglobin A1c Lactic Acid Calcium Phosphorus Magnesium 2.40 H Alkaline Phosphatase C-Reactive Protein Total Protein Albumin Vancomycin Trough Crossmatch 04/25/21 04/25/21 04/26/21 21:54 22:53 00:03 WBC RBC Hgb Hct MCV MCH RDW Plt Count Lymph % (Auto) Seg Neutrophils % Seg Neuts % (Manual) Lymphocytes % (Manual) Nucleated RBC % Seg Neutrophils # Lymphocytes # (Manual) ABG pO2 ABG HCO3 ABG Base Excess ABG Hemoglobin VBG pH Oxyhemoglobin Sodium Potassium Chloride Carbon Dioxide BUN Creatinine Glucose POC Glucose 139 H 140 H 129 H Hemoglobin A1c Lactic Acid Calcium Phosphorus Magnesium Alkaline Phosphatase C-Reactive Protein Total Protein Albumin Vancomycin Trough Crossmatch 04/26/21 04/26/21 04/26/21 00:38 01:00 01:56 WBC RBC Hgb Hct MCV MCH RDW Plt Count Lymph % (Auto) Seg Neutrophils % Seg Neuts % (Manual) Lymphocytes % (Manual) Nucleated RBC % Seg Neutrophils # Lymphocytes # (Manual) ABG pO2 ABG HCO3 ABG Base Excess ABG Hemoglobin VBG pH Oxyhemoglobin Sodium Potassium Chloride 112.6 H Carbon Dioxide 14 L BUN 22 H Creatinine Glucose 149 H POC Glucose 126 H 137 H Hemoglobin A1c Lactic Acid Calcium Phosphorus Magnesium 2.40 H Alkaline Phosphatase C-Reactive Protein Total Protein Albumin Vancomycin Trough Crossmatch 04/26/21 04/26/21 04/26/21 02:54 04:04 05:02 WBC RBC 3.44 L Hgb 8.9 L Hct 26.9 L MCV 78 L MCH 26 L RDW Plt Count Lymph % (Auto) Seg Neutrophils % Seg Neuts % (Manual) Lymphocytes % (Manual) Nucleated RBC % Seg Neutrophils # Lymphocytes # (Manual) ABG pO2 ABG HCO3 ABG Base Excess ABG Hemoglobin VBG pH Oxyhemoglobin Sodium Potassium Chloride Carbon Dioxide BUN Creatinine Glucose POC Glucose 132 H 130 H Hemoglobin A1c Lactic Acid Calcium Phosphorus Magnesium Alkaline Phosphatase C-Reactive Protein Total Protein Albumin Vancomycin Trough Crossmatch 04/26/21 04/26/21 04/26/21 05:02 05:03 06:06 WBC RBC Hgb Hct MCV MCH RDW Plt Count Lymph % (Auto) Seg Neutrophils % Seg Neuts % (Manual) Lymphocytes % (Manual) Nucleated RBC % Seg Neutrophils # Lymphocytes # (Manual) ABG pO2 ABG HCO3 ABG Base Excess ABG Hemoglobin VBG pH Oxyhemoglobin Sodium Potassium Chloride 114.8 H Carbon Dioxide 14 L BUN 22 H Creatinine Glucose 129 H POC Glucose 115 H 129 H Hemoglobin A1c Lactic Acid Calcium Phosphorus Magnesium Alkaline Phosphatase C-Reactive Protein Total Protein Albumin Vancomycin Trough Crossmatch 04/26/21 04/26/21 04/26/21 06:53 07:58 09:09 WBC RBC Hgb Hct MCV MCH RDW Plt Count Lymph % (Auto) Seg Neutrophils % Seg Neuts % (Manual) Lymphocytes % (Manual) Nucleated RBC % Seg Neutrophils # Lymphocytes # (Manual) ABG pO2 ABG HCO3 ABG Base Excess ABG Hemoglobin VBG pH Oxyhemoglobin Sodium Potassium Chloride Carbon Dioxide BUN Creatinine Glucose POC Glucose 121 H 124 H 125 H Hemoglobin A1c Lactic Acid Calcium Phosphorus Magnesium Alkaline Phosphatase C-Reactive Protein Total Protein Albumin Vancomycin Trough Crossmatch 04/26/21 04/26/21 04/26/21 10:05 10:52 12:00 WBC RBC Hgb Hct MCV MCH RDW Plt Count Lymph % (Auto) Seg Neutrophils % Seg Neuts % (Manual) Lymphocytes % (Manual) Nucleated RBC % Seg Neutrophils # Lymphocytes # (Manual) ABG pO2 ABG HCO3 ABG Base Excess ABG Hemoglobin VBG pH Oxyhemoglobin Sodium Potassium Chloride Carbon Dioxide BUN Creatinine Glucose POC Glucose 131 H 129 H 126 H Hemoglobin A1c Lactic Acid Calcium Phosphorus Magnesium Alkaline Phosphatase C-Reactive Protein Total Protein Albumin Vancomycin Trough Crossmatch 04/26/21 04/26/21 04/26/21 13:17 14:06 14:11 WBC RBC Hgb Hct MCV MCH RDW Plt Count Lymph % (Auto) Seg Neutrophils % Seg Neuts % (Manual) Lymphocytes % (Manual) Nucleated RBC % Seg Neutrophils # Lymphocytes # (Manual) ABG pO2 ABG HCO3 ABG Base Excess ABG Hemoglobin VBG pH Oxyhemoglobin Sodium Potassium 5.3 H D Chloride 112.2 H Carbon Dioxide 14 L BUN 22 H Creatinine Glucose 116 H POC Glucose 130 H 132 H Hemoglobin A1c Lactic Acid Calcium Phosphorus Magnesium 2.40 H Alkaline Phosphatase C-Reactive Protein Total Protein Albumin Vancomycin Trough Crossmatch 04/26/21 04/26/21 04/26/21 15:07 15:20 16:05 WBC RBC Hgb Hct MCV MCH RDW Plt Count Lymph % (Auto) Seg Neutrophils % Seg Neuts % (Manual) Lymphocytes % (Manual) Nucleated RBC % Seg Neutrophils # Lymphocytes # (Manual) ABG pO2 ABG HCO3 ABG Base Excess ABG Hemoglobin VBG pH Oxyhemoglobin Sodium Potassium Chloride 112.4 H Carbon Dioxide 13 L BUN 22 H Creatinine Glucose 143 H POC Glucose 130 H 156 H Hemoglobin A1c Lactic Acid Calcium Phosphorus Magnesium Alkaline Phosphatase C-Reactive Protein Total Protein Albumin Vancomycin Trough Crossmatch 04/26/21 04/26/21 04/27/21 17:55 19:27 00:02 WBC RBC Hgb Hct MCV MCH RDW Plt Count Lymph % (Auto) Seg Neutrophils % Seg Neuts % (Manual) Lymphocytes % (Manual) Nucleated RBC % Seg Neutrophils # Lymphocytes # (Manual) ABG pO2 ABG HCO3 ABG Base Excess ABG Hemoglobin VBG pH Oxyhemoglobin Sodium Potassium Chloride Carbon Dioxide BUN Creatinine Glucose POC Glucose 194 H 261 H Hemoglobin A1c Lactic Acid Calcium Phosphorus Magnesium Alkaline Phosphatase C-Reactive Protein Total Protein Albumin Vancomycin Trough 38.2 H Crossmatch 04/27/21 04/27/21 04/27/21 04:03 04:03 05:33 WBC RBC 3.20 L Hgb 8.1 L Hct 25.1 L MCV 78 L MCH 25 L RDW Plt Count Lymph % (Auto) Seg Neutrophils % Seg Neuts % (Manual) Lymphocytes % (Manual) Nucleated RBC % Seg Neutrophils # Lymphocytes # (Manual) ABG pO2 ABG HCO3 ABG Base Excess ABG Hemoglobin VBG pH Oxyhemoglobin Sodium Potassium Chloride 112.4 H Carbon Dioxide 12 L BUN 30 H Creatinine Glucose 330 H POC Glucose 311 H Hemoglobin A1c Lactic Acid Calcium Phosphorus Magnesium Alkaline Phosphatase C-Reactive Protein Total Protein Albumin Vancomycin Trough Crossmatch 04/27/21 04/27/21 04/27/21 09:51 13:15 16:43 WBC RBC Hgb Hct MCV MCH RDW Plt Count Lymph % (Auto) Seg Neutrophils % Seg Neuts % (Manual) Lymphocytes % (Manual) Nucleated RBC % Seg Neutrophils # Lymphocytes # (Manual) ABG pO2 ABG HCO3 ABG Base Excess ABG Hemoglobin VBG pH Oxyhemoglobin Sodium Potassium Chloride Carbon Dioxide BUN Creatinine Glucose POC Glucose 335 H 291 H 218 H Hemoglobin A1c Lactic Acid Calcium Phosphorus Magnesium Alkaline Phosphatase C-Reactive Protein Total Protein Albumin Vancomycin Trough Crossmatch 04/27/21 04/27/21 04/28/21 18:10 22:08 02:15 WBC RBC Hgb Hct MCV MCH RDW Plt Count Lymph % (Auto) Seg Neutrophils % Seg Neuts % (Manual) Lymphocytes % (Manual) Nucleated RBC % Seg Neutrophils # Lymphocytes # (Manual) ABG pO2 ABG HCO3 ABG Base Excess ABG Hemoglobin VBG pH Oxyhemoglobin Sodium Potassium Chloride Carbon Dioxide BUN Creatinine Glucose POC Glucose 177 H 136 H 152 H Hemoglobin A1c Lactic Acid Calcium Phosphorus Magnesium Alkaline Phosphatase C-Reactive Protein Total Protein Albumin Vancomycin Trough Crossmatch 04/28/21 04/28/21 04/28/21 04:41 04:41 06:03 WBC RBC 3.50 L Hgb 8.9 L Hct 27.3 L MCV 78 L MCH 26 L RDW Plt Count Lymph % (Auto) Seg Neutrophils % Seg Neuts % (Manual) Lymphocytes % (Manual) Nucleated RBC % Seg Neutrophils # Lymphocytes # (Manual) ABG pO2 ABG HCO3 ABG Base Excess ABG Hemoglobin VBG pH Oxyhemoglobin Sodium Potassium Chloride 113.5 H Carbon Dioxide 16 L BUN 37 H Creatinine Glucose 167 H POC Glucose 174 H Hemoglobin A1c Lactic Acid Calcium Phosphorus Magnesium Alkaline Phosphatase C-Reactive Protein Total Protein Albumin Vancomycin Trough Crossmatch 04/28/21 04/28/21 04/28/21 08:42 11:34 17:15 WBC RBC Hgb Hct MCV MCH RDW Plt Count Lymph % (Auto) Seg Neutrophils % Seg Neuts % (Manual) Lymphocytes % (Manual) Nucleated RBC % Seg Neutrophils # Lymphocytes # (Manual) ABG pO2 ABG HCO3 ABG Base Excess ABG Hemoglobin VBG pH Oxyhemoglobin Sodium Potassium Chloride Carbon Dioxide BUN Creatinine Glucose POC Glucose 212 H 228 H 236 H Hemoglobin A1c Lactic Acid Calcium Phosphorus Magnesium Alkaline Phosphatase C-Reactive Protein Total Protein Albumin Vancomycin Trough Crossmatch 04/28/21 04/29/21 04/29/21 21:58 01:55 04:00 WBC 11.7 H RBC 3.35 L Hgb 8.5 L Hct 26.4 L MCV MCH 25 L RDW Plt Count Lymph % (Auto) Seg Neutrophils % Seg Neuts % (Manual) Lymphocytes % (Manual) Nucleated RBC % Seg Neutrophils # Lymphocytes # (Manual) ABG pO2 ABG HCO3 ABG Base Excess ABG Hemoglobin VBG pH Oxyhemoglobin Sodium Potassium Chloride Carbon Dioxide BUN Creatinine Glucose POC Glucose 208 H 137 H Hemoglobin A1c Lactic Acid Calcium Phosphorus Magnesium Alkaline Phosphatase C-Reactive Protein Total Protein Albumin Vancomycin Trough Crossmatch 04/29/21 04/29/21 04/29/21 04:00 05:16 11:02 WBC RBC Hgb Hct MCV MCH RDW Plt Count Lymph % (Auto) Seg Neutrophils % Seg Neuts % (Manual) Lymphocytes % (Manual) Nucleated RBC % Seg Neutrophils # Lymphocytes # (Manual) ABG pO2 ABG HCO3 ABG Base Excess ABG Hemoglobin VBG pH Oxyhemoglobin Sodium 146 H Potassium Chloride 112.4 H Carbon Dioxide BUN 41 H Creatinine Glucose 115 H POC Glucose 114 H 144 H Hemoglobin A1c Lactic Acid Calcium Phosphorus Magnesium Alkaline Phosphatase C-Reactive Protein Total Protein Albumin Vancomycin Trough Crossmatch 04/30/21 04/30/21 04/30/21 00:23 04:41 04:41 WBC 14.4 H RBC 3.12 L Hgb 7.8 L Hct 24.7 L MCV MCH 25 L RDW Plt Count 138 L Lymph % (Auto) Seg Neutrophils % Seg Neuts % (Manual) Lymphocytes % (Manual) Nucleated RBC % Seg Neutrophils # Lymphocytes # (Manual) ABG pO2 ABG HCO3 ABG Base Excess ABG Hemoglobin VBG pH Oxyhemoglobin Sodium Potassium Chloride 108.0 H Carbon Dioxide BUN 42 H Creatinine Glucose 215 H POC Glucose 126 H Hemoglobin A1c Lactic Acid Calcium Phosphorus Magnesium Alkaline Phosphatase 171 H C-Reactive Protein Total Protein 6.1 L Albumin 1.4 L Vancomycin Trough Crossmatch 04/30/21 04/30/21 04/30/21 05:22 11:55 17:36 WBC RBC Hgb Hct MCV MCH RDW Plt Count Lymph % (Auto) Seg Neutrophils % Seg Neuts % (Manual) Lymphocytes % (Manual) Nucleated RBC % Seg Neutrophils # Lymphocytes # (Manual) ABG pO2 ABG HCO3 ABG Base Excess ABG Hemoglobin VBG pH Oxyhemoglobin Sodium Potassium Chloride Carbon Dioxide BUN Creatinine Glucose POC Glucose 196 H 224 H 196 H Hemoglobin A1c Lactic Acid Calcium Phosphorus Magnesium Alkaline Phosphatase C-Reactive Protein Total Protein Albumin Vancomycin Trough Crossmatch 05/01/21 05/01/21 05/01/21 04:01 05:37 05:37 WBC 16.9 H RBC 2.97 L Hgb 7.4 L Hct 23.1 L MCV 78 L MCH 25 L RDW Plt Count Lymph % (Auto) Seg Neutrophils % Seg Neuts % (Manual) Lymphocytes % (Manual) Nucleated RBC % Seg Neutrophils # Lymphocytes # (Manual) ABG pO2 ABG HCO3 ABG Base Excess ABG Hemoglobin VBG pH Oxyhemoglobin Sodium Potassium Chloride 108.4 H Carbon Dioxide BUN 41 H Creatinine Glucose 124 H POC Glucose 122 H Hemoglobin A1c Lactic Acid Calcium 8.0 L Phosphorus Magnesium Alkaline Phosphatase C-Reactive Protein Total Protein Albumin Vancomycin Trough Crossmatch 05/01/21 05/01/21 05/01/21 06:27 13:45 16:40 WBC RBC Hgb Hct MCV MCH RDW Plt Count Lymph % (Auto) Seg Neutrophils % Seg Neuts % (Manual) Lymphocytes % (Manual) Nucleated RBC % Seg Neutrophils # Lymphocytes # (Manual) ABG pO2 ABG HCO3 ABG Base Excess ABG Hemoglobin VBG pH Oxyhemoglobin Sodium Potassium Chloride Carbon Dioxide BUN Creatinine Glucose POC Glucose 126 H 231 H 266 H Hemoglobin A1c Lactic Acid Calcium Phosphorus Magnesium Alkaline Phosphatase C-Reactive Protein Total Protein Albumin Vancomycin Trough Crossmatch 05/01/21 05/02/21 05/02/21 23:16 05:43 11:27 WBC RBC Hgb Hct MCV MCH RDW Plt Count Lymph % (Auto) Seg Neutrophils % Seg Neuts % (Manual) Lymphocytes % (Manual) Nucleated RBC % Seg Neutrophils # Lymphocytes # (Manual) ABG pO2 ABG HCO3 ABG Base Excess ABG Hemoglobin VBG pH Oxyhemoglobin Sodium Potassium Chloride Carbon Dioxide BUN Creatinine Glucose POC Glucose 192 H 236 H 284 H Hemoglobin A1c Lactic Acid Calcium Phosphorus Magnesium Alkaline Phosphatase C-Reactive Protein Total Protein Albumin Vancomycin Trough Crossmatch 05/02/21 05/02/21 05/03/21 16:52 23:20 06:16 WBC RBC Hgb Hct MCV MCH RDW Plt Count Lymph % (Auto) Seg Neutrophils % Seg Neuts % (Manual) Lymphocytes % (Manual) Nucleated RBC % Seg Neutrophils # Lymphocytes # (Manual) ABG pO2 ABG HCO3 ABG Base Excess ABG Hemoglobin VBG pH Oxyhemoglobin Sodium Potassium Chloride Carbon Dioxide BUN Creatinine Glucose POC Glucose 170 H 124 H 147 H Hemoglobin A1c Lactic Acid Calcium Phosphorus Magnesium Alkaline Phosphatase C-Reactive Protein Total Protein Albumin Vancomycin Trough Crossmatch 05/03/21 05/03/21 05/03/21 07:05 07:05 11:46 WBC 14.3 H RBC 2.82 L Hgb 6.8 L Hct 22.7 L MCV MCH 24 L RDW Plt Count Lymph % (Auto) 11.8 L Seg Neutrophils % 83.3 H Seg Neuts % (Manual) Lymphocytes % (Manual) Nucleated RBC % Seg Neutrophils # 11.9 H Lymphocytes # (Manual) ABG pO2 ABG HCO3 ABG Base Excess ABG Hemoglobin VBG pH Oxyhemoglobin Sodium Potassium Chloride Carbon Dioxide BUN 39 H Creatinine Glucose 163 H POC Glucose 134 H Hemoglobin A1c Lactic Acid Calcium Phosphorus Magnesium Alkaline Phosphatase C-Reactive Protein Total Protein Albumin Vancomycin Trough Crossmatch 05/03/21 05/03/21 05/03/21 17:11 18:00 19:46 WBC RBC Hgb Hct MCV MCH RDW Plt Count Lymph % (Auto) Seg Neutrophils % Seg Neuts % (Manual) Lymphocytes % (Manual) Nucleated RBC % Seg Neutrophils # Lymphocytes # (Manual) ABG pO2 ABG HCO3 ABG Base Excess ABG Hemoglobin VBG pH Oxyhemoglobin Sodium Potassium Chloride Carbon Dioxide BUN Creatinine Glucose POC Glucose 129 H 128 H Hemoglobin A1c Lactic Acid Calcium Phosphorus Magnesium Alkaline Phosphatase C-Reactive Protein Total Protein Albumin Vancomycin Trough Crossmatch See Detail 05/03/21 05/04/21 05/04/21 22:00 08:06 11:19 WBC RBC Hgb Hct MCV MCH RDW Plt Count Lymph % (Auto) Seg Neutrophils % Seg Neuts % (Manual) Lymphocytes % (Manual) Nucleated RBC % Seg Neutrophils # Lymphocytes # (Manual) ABG pO2 ABG HCO3 ABG Base Excess ABG Hemoglobin VBG pH Oxyhemoglobin Sodium Potassium Chloride Carbon Dioxide BUN Creatinine Glucose POC Glucose 144 H 337 H 383 H Hemoglobin A1c Lactic Acid Calcium Phosphorus Magnesium Alkaline Phosphatase C-Reactive Protein Total Protein Albumin Vancomycin Trough Crossmatch 05/04/21 05/04/21 05/05/21 17:43 23:01 06:05 WBC RBC Hgb Hct MCV MCH RDW Plt Count Lymph % (Auto) Seg Neutrophils % Seg Neuts % (Manual) Lymphocytes % (Manual) Nucleated RBC % Seg Neutrophils # Lymphocytes # (Manual) ABG pO2 ABG HCO3 ABG Base Excess ABG Hemoglobin VBG pH Oxyhemoglobin Sodium Potassium Chloride Carbon Dioxide BUN Creatinine Glucose POC Glucose 316 H 320 H 395 H Hemoglobin A1c Lactic Acid Calcium Phosphorus Magnesium Alkaline Phosphatase C-Reactive Protein Total Protein Albumin Vancomycin Trough Crossmatch 05/05/21 05/05/21 05/05/21 06:15 06:15 11:38 WBC RBC 2.56 L Hgb 6.8 L 6.9 L Hct 21.4 L 22.7 L MCV MCH 27 L RDW Plt Count 442 H Lymph % (Auto) Seg Neutrophils % 76.5 H Seg Neuts % (Manual) Lymphocytes % (Manual) Nucleated RBC % Seg Neutrophils # Lymphocytes # (Manual) ABG pO2 ABG HCO3 ABG Base Excess ABG Hemoglobin VBG pH Oxyhemoglobin Sodium Potassium Chloride Carbon Dioxide BUN 52 H Creatinine Glucose 430 H POC Glucose Hemoglobin A1c Lactic Acid Calcium Phosphorus Magnesium Alkaline Phosphatase C-Reactive Protein Total Protein Albumin Vancomycin Trough Crossmatch 05/05/21 05/05/21 05/06/21 11:47 23:07 06:44 WBC RBC Hgb Hct MCV MCH RDW Plt Count Lymph % (Auto) Seg Neutrophils % Seg Neuts % (Manual) Lymphocytes % (Manual) Nucleated RBC % Seg Neutrophils # Lymphocytes # (Manual) ABG pO2 ABG HCO3 ABG Base Excess ABG Hemoglobin VBG pH Oxyhemoglobin Sodium Potassium Chloride Carbon Dioxide BUN Creatinine Glucose POC Glucose 307 H 141 H 147 H Hemoglobin A1c Lactic Acid Calcium Phosphorus Magnesium Alkaline Phosphatase C-Reactive Protein Total Protein Albumin Vancomycin Trough Crossmatch 05/06/21 05/06/21 05/06/21 07:52 12:27 17:02 WBC RBC Hgb 7.0 L Hct 21.8 L MCV MCH RDW Plt Count Lymph % (Auto) Seg Neutrophils % Seg Neuts % (Manual) Lymphocytes % (Manual) Nucleated RBC % Seg Neutrophils # Lymphocytes # (Manual) ABG pO2 ABG HCO3 ABG Base Excess ABG Hemoglobin VBG pH Oxyhemoglobin Sodium Potassium Chloride Carbon Dioxide BUN Creatinine Glucose POC Glucose 200 H 135 H Hemoglobin A1c Lactic Acid Calcium Phosphorus Magnesium Alkaline Phosphatase C-Reactive Protein Total Protein Albumin Vancomycin Trough Crossmatch 05/06/21 05/07/21 05/07/21 23:03 08:02 10:49 WBC RBC Hgb 7.4 L Hct 23.7 L MCV MCH RDW Plt Count Lymph % (Auto) Seg Neutrophils % Seg Neuts % (Manual) Lymphocytes % (Manual) Nucleated RBC % Seg Neutrophils # Lymphocytes # (Manual) ABG pO2 ABG HCO3 ABG Base Excess ABG Hemoglobin VBG pH Oxyhemoglobin Sodium Potassium Chloride Carbon Dioxide BUN Creatinine Glucose POC Glucose 150 H 255 H Hemoglobin A1c Lactic Acid Calcium Phosphorus Magnesium Alkaline Phosphatase C-Reactive Protein Total Protein Albumin Vancomycin Trough Crossmatch 05/07/21 05/07/21 05/07/21 13:27 18:03 Unknown WBC RBC 2.66 L Hgb 6.9 L Hct 22.3 L MCV MCH 26 L RDW 15.4 H Plt Count 449 H Lymph % (Auto) Seg Neutrophils % 70.7 H Seg Neuts % (Manual) Lymphocytes % (Manual) Nucleated RBC % Seg Neutrophils # Lymphocytes # (Manual) ABG pO2 ABG HCO3 ABG Base Excess ABG Hemoglobin VBG pH Oxyhemoglobin Sodium Potassium Chloride Carbon Dioxide BUN Creatinine Glucose POC Glucose 149 H 127 H Hemoglobin A1c Lactic Acid Calcium Phosphorus Magnesium Alkaline Phosphatase C-Reactive Protein Total Protein Albumin Vancomycin Trough Crossmatch 05/08/21 05/08/21 05/08/21 06:10 07:51 11:55 WBC RBC Hgb Hct MCV MCH RDW Plt Count Lymph % (Auto) Seg Neutrophils % Seg Neuts % (Manual) Lymphocytes % (Manual) Nucleated RBC % Seg Neutrophils # Lymphocytes # (Manual) ABG pO2 ABG HCO3 ABG Base Excess ABG Hemoglobin VBG pH Oxyhemoglobin Sodium Potassium Chloride Carbon Dioxide BUN Creatinine Glucose POC Glucose 190 H 194 H 197 H Hemoglobin A1c Lactic Acid Calcium Phosphorus Magnesium Alkaline Phosphatase C-Reactive Protein Total Protein Albumin Vancomycin Trough Crossmatch 05/08/21 05/08/2121 12:25 12:25 18:35 WBC RBC 2.42 L Hgb 6.6 L Hct 20.1 L MCV MCH 27 L RDW 15.3 H Plt Count 452 H Lymph % (Auto) Seg Neutrophils % Seg Neuts % (Manual) Lymphocytes % (Manual) Nucleated RBC % Seg Neutrophils # Lymphocytes # (Manual) ABG pO2 ABG HCO3 ABG Base Excess ABG Hemoglobin VBG pH Oxyhemoglobin Sodium Potassium Chloride Carbon Dioxide BUN 27 H Creatinine Glucose 216 H POC Glucose 195 H Hemoglobin A1c Lactic Acid Calcium 7.9 L Phosphorus Magnesium Alkaline Phosphatase C-Reactive Protein Total Protein Albumin Vancomycin Trough Crossmatch Chest x-ray: report reviewed, image reviewed Additional Studies: CHEST 1 VIEW 05/08/2021 7:07 AM INDICATION / CLINICAL INFORMATION: fever. COMPARISON: 04/29/2021 FINDINGS: SUPPORT DEVICES: Stable, satisfactory device positioning. HEART / MEDIASTINUM: No significant abnormality. LUNGS / PLEURA: Mild increased densities and atelectasis in the lower lungs No pneumothorax. Allied health notes reviewed: nursing
[2021-05-08] MEDS: SENNOSIDES 8.6 MG TAB PO SCH (22:07)
[2021-05-09 00:05] LABS: Hematocrit 20.7 % (30.3-42.9); Hemoglobin 6.6 gm/dl (10.1-14.3)
[2021-05-09] MEDS: FREE WATER PO SCH ×6 (02:43→20:00)
[2021-05-09] MEDS: INSULIN LISPRO 100 UNIT/ML SUB-Q SCH ×4 (02:43→18:58)
[2021-05-09] MEDS ORDERED: SODIUM CHLORIDE 0.9% 500 ML 500 ML IV ONE (06:02)
[2021-05-09 08:23] LABS: Hematocrit 20.6 % (30.3-42.9); Hemoglobin 6.3 gm/dl (10.1-14.3); Mean Corpuscular HGB Conc 31 % (30-34); Mean Corpuscular Volume 84 fl (79-97); Platelet Count 505 K/mm3 (140-440); Red Blood Count 2.46 M/mm3 (3.65-5.03); Red Cell Distribution Width 15.5 % (13.2-15.2)
[2021-05-09 08:37] LABS: BUN/Creatinine Ratio 27; Blood Urea Nitrogen 24 mg/dL (7-17); Calcium 7.7 mg/dL (8.4-10.2); Hemolysis Index 0
[2021-05-09] MEDS: METOCLOPRAMIDE 10 MG/10 ML ORAL LIQD FEEDTUBE SCH ×4 (09:30→21:25)
--- NOTE | 2021-05-09 09:31 | Progress Note ---
Assessment and Plan Acute metabolic acidosis Diabetic ketoacidosis Acute toxic metabolic encephalopathy Obesity Osteoarthritis Hypercalcemia - PRBC transfusions for serum Hb < 7.0 - Anemia w/up / G.I. evaluation - continue care as below otherwise; - prn NT suction at this point - continue aspiration precautions (HOB > 40 degrees) - continue accuchecks with glycemic control per SSI for target blood glucose of < 80 mg/dL; avoid hypoglycemia - antiinfective's per ID team recommendations (Unasyn) - wean supplemental oxygen for target O2 sat's > 90% acutely - prn bronchodilators with pulmonary hygiene per RT - avoid nephrotoxins, renally dose all medications - avoid benzodiazepine's, reduce the possibility of delirium - prn analgesia per pain score - Maintenance of sleep-wake cycle, avoid delirium - G.I. & VTE prophylaxis - PT/OT/ROM exercises - continue mobility protocols for pressure ulcer prophylaxis - Monitor hemodynamics closely - continue other care per attending / other consultants - discharge planning ongoing concurrently .... Re-evaluate in am & prn Subjective Date of service: 05/09/21 Principal diagnosis: HAGMA; DKA; AMS; Obesity; Osteoarthritis; Hypercalcemia Interval history: Patient is seen today for: Acute metabolic acidosis; Diabetic ketoacidosis; Acute toxic metabolic encephalopathy; Obesity; Osteoarthritis; Hypercalcemia Seen and examined at bedside; 24hour events reviewed; nursing and respiratory care staff consulted; no adverse overnight events reported to me; resting peacefully in bed; remains on supplemental oxygen; NGT in place; denies N/V/F/C; remains anemic Objective Vital Signs - 12hr 05/08/21 05/08/21 05/09/21 22:00 22:04 04:48 Temperature 98.5 F 99.3 F Pulse Rate 111 H 117 H Respiratory 18 18 Rate Blood Pressure 144/65 153/77 O2 Sat by Pulse 95 95 92 Oximetry Constitutional: alert, appears uncomfortable Eyes: non-icteric ENT: oropharynx moist Neck: supple, no lymphadenopathy, no JVD Effort: normal Ascultation: Bilateral: diminished breath sounds, rhonchi Percussion: Bilateral: not dull Cardiovascular: regular rate and rhythm, other (S1,S2) Gastrointestinal: hypoactive bowel sounds, soft, non-tender, non-distended (protuberant) Integumentary: rash (perineal) Extremities: no cyanosis, no edema, pulses normal, no ischemia or petechiae, other (Right knee surgery.) Neurologic: normal mental status, non-focal exam, pupils equal and round, other Psychiatric: depressed CBC and BMP: 05/09/21 07:34 05/09/21 07:34 ABG, PT/INR, D-dimer: ABG ABG pH 7.426 pH Units (7.350-7.450) 04/25/21 11:20 ABG pCO2 25.3 mm Hg 04/25/21 11:20 ABG pO2 73.2 mm Hg (80.0-90.0) L 04/25/21 11:20 ABG O2 Saturation 96.9 % (95.0-99.0) 04/25/21 11:20 Abnormal lab findings: Abnormal Labs 04/23/21 04/23/21 04/23/21 10:33 10:33 10:33 WBC RBC Hgb Hct MCV MCH 26 L RDW Plt Count Lymph % (Auto) Seg Neutrophils % Seg Neuts % (Manual) Lymphocytes % (Manual) 7.0 L Nucleated RBC % 2.0 H Seg Neutrophils # Lymphocytes # (Manual) 0.5 L ABG pO2 ABG HCO3 ABG Base Excess ABG Hemoglobin VBG pH 7.180 L* Oxyhemoglobin Sodium 122 L Potassium 3.0 L Chloride 84.8 L Carbon Dioxide 6 L* BUN 49 H Creatinine 1.4 H Glucose 775 H* POC Glucose Hemoglobin A1c Lactic Acid Calcium 12.2 H* Phosphorus Magnesium Alkaline Phosphatase 130 H C-Reactive Protein Total Protein Albumin 2.9 L Vancomycin Trough Crossmatch 04/23/21 04/23/21 04/23/21 10:40 12:44 14:01 WBC RBC Hgb Hct MCV MCH RDW Plt Count Lymph % (Auto) Seg Neutrophils % Seg Neuts % (Manual) Lymphocytes % (Manual) Nucleated RBC % Seg Neutrophils # Lymphocytes # (Manual) ABG pO2 ABG HCO3 ABG Base Excess ABG Hemoglobin VBG pH Oxyhemoglobin Sodium Potassium Chloride Carbon Dioxide BUN Creatinine Glucose POC Glucose > 600 H 550 H Hemoglobin A1c Lactic Acid Calcium Phosphorus 1.50 L Magnesium Alkaline Phosphatase C-Reactive Protein Total Protein Albumin Vancomycin Trough Crossmatch 04/23/21 04/23/21 04/23/21 14:01 14:04 14:56 WBC RBC Hgb Hct MCV MCH RDW Plt Count Lymph % (Auto) Seg Neutrophils % Seg Neuts % (Manual) Lymphocytes % (Manual) Nucleated RBC % Seg Neutrophils # Lymphocytes # (Manual) ABG pO2 ABG HCO3 ABG Base Excess ABG Hemoglobin VBG pH Oxyhemoglobin Sodium 125 L Potassium 3.0 L Chloride 89.2 L Carbon Dioxide 6 L* BUN 45 H Creatinine 1.3 H Glucose 594 H* POC Glucose 518 H 425 H Hemoglobin A1c Lactic Acid Calcium 10.9 H Phosphorus Magnesium Alkaline Phosphatase C-Reactive Protein Total Protein Albumin Vancomycin Trough Crossmatch 04/23/21 04/23/21 04/23/21 15:43 15:48 17:21 WBC RBC Hgb Hct MCV MCH RDW Plt Count Lymph % (Auto) Seg Neutrophils % Seg Neuts % (Manual) Lymphocytes % (Manual) Nucleated RBC % Seg Neutrophils # Lymphocytes # (Manual) ABG pO2 ABG HCO3 ABG Base Excess ABG Hemoglobin VBG pH Oxyhemoglobin Sodium 131 L Potassium 2.9 L* Chloride Carbon Dioxide 8 L* BUN 39 H Creatinine Glucose 434 H POC Glucose 410 H 407 H Hemoglobin A1c Lactic Acid Calcium 10.3 H Phosphorus Magnesium Alkaline Phosphatase C-Reactive Protein Total Protein Albumin Vancomycin Trough Crossmatch 04/23/21 04/23/21 04/23/21 18:07 19:13 19:54 WBC RBC Hgb Hct MCV MCH RDW Plt Count Lymph % (Auto) Seg Neutrophils % Seg Neuts % (Manual) Lymphocytes % (Manual) Nucleated RBC % Seg Neutrophils # Lymphocytes # (Manual) ABG pO2 ABG HCO3 ABG Base Excess ABG Hemoglobin VBG pH Oxyhemoglobin Sodium 131 L Potassium 3.1 L Chloride 95.9 L Carbon Dioxide 7 L* BUN 39 H Creatinine Glucose 391 H POC Glucose 428 H 350 H Hemoglobin A1c Lactic Acid Calcium 11.2 H Phosphorus Magnesium Alkaline Phosphatase C-Reactive Protein Total Protein Albumin Vancomycin Trough Crossmatch 04/23/21 04/23/21 04/23/21 19:54 20:12 20:59 WBC RBC Hgb Hct MCV MCH RDW Plt Count Lymph % (Auto) Seg Neutrophils % Seg Neuts % (Manual) Lymphocytes % (Manual) Nucleated RBC % Seg Neutrophils # Lymphocytes # (Manual) ABG pO2 ABG HCO3 ABG Base Excess ABG Hemoglobin VBG pH Oxyhemoglobin Sodium Potassium Chloride Carbon Dioxide BUN Creatinine Glucose POC Glucose 365 H 286 H Hemoglobin A1c Lactic Acid Calcium Phosphorus 1.10 L D Magnesium Alkaline Phosphatase C-Reactive Protein Total Protein Albumin Vancomycin Trough Crossmatch 04/23/21 04/23/21 04/23/21 22:05 22:23 22:59 WBC RBC Hgb Hct MCV MCH RDW Plt Count Lymph % (Auto) Seg Neutrophils % Seg Neuts % (Manual) Lymphocytes % (Manual) Nucleated RBC % Seg Neutrophils # Lymphocytes # (Manual) ABG pO2 ABG HCO3 ABG Base Excess ABG Hemoglobin VBG pH Oxyhemoglobin Sodium 135 L Potassium 3.2 L Chloride Carbon Dioxide 10 L BUN 35 H Creatinine Glucose 300 H POC Glucose 257 H 238 H Hemoglobin A1c Lactic Acid Calcium 11.6 H Phosphorus Magnesium Alkaline Phosphatase C-Reactive Protein Total Protein Albumin Vancomycin Trough Crossmatch 04/23/21 04/24/21 04/24/21 23:57 00:10 00:56 WBC RBC Hgb Hct MCV MCH RDW Plt Count Lymph % (Auto) Seg Neutrophils % Seg Neuts % (Manual) Lymphocytes % (Manual) Nucleated RBC % Seg Neutrophils # Lymphocytes # (Manual) ABG pO2 ABG HCO3 ABG Base Excess ABG Hemoglobin VBG pH Oxyhemoglobin Sodium Potassium 3.2 L Chloride Carbon Dioxide 13 L BUN 33 H Creatinine Glucose 267 H POC Glucose 223 H 254 H Hemoglobin A1c Lactic Acid Calcium 11.2 H Phosphorus 1.20 L Magnesium Alkaline Phosphatase C-Reactive Protein Total Protein Albumin Vancomycin Trough Crossmatch 04/24/21 04/24/21 04/24/21 01:58 02:58 03:57 WBC RBC Hgb Hct MCV MCH RDW Plt Count Lymph % (Auto) Seg Neutrophils % Seg Neuts % (Manual) Lymphocytes % (Manual) Nucleated RBC % Seg Neutrophils # Lymphocytes # (Manual) ABG pO2 ABG HCO3 ABG Base Excess ABG Hemoglobin VBG pH Oxyhemoglobin Sodium Potassium Chloride Carbon Dioxide BUN Creatinine Glucose POC Glucose 264 H 251 H 200 H Hemoglobin A1c Lactic Acid Calcium Phosphorus Magnesium Alkaline Phosphatase C-Reactive Protein Total Protein Albumin Vancomycin Trough Crossmatch 04/24/21 04/24/21 04/24/21 04:16 04:16 04:16 WBC RBC Hgb Hct MCV MCH 26 L RDW Plt Count Lymph % (Auto) Seg Neutrophils % Seg Neuts % (Manual) Lymphocytes % (Manual) Nucleated RBC % Seg Neutrophils # Lymphocytes # (Manual) ABG pO2 ABG HCO3 ABG Base Excess ABG Hemoglobin VBG pH Oxyhemoglobin Sodium Potassium Chloride 108.0 H Carbon Dioxide 13 L BUN 31 H Creatinine Glucose 243 H POC Glucose Hemoglobin A1c 18.3 H Lactic Acid Calcium 10.9 H Phosphorus 1.80 L D Magnesium Alkaline Phosphatase C-Reactive Protein Total Protein Albumin Vancomycin Trough Crossmatch 04/24/21 04/24/21 04/24/21 04:59 05:53 06:51 WBC RBC Hgb Hct MCV MCH RDW Plt Count Lymph % (Auto) Seg Neutrophils % Seg Neuts % (Manual) Lymphocytes % (Manual) Nucleated RBC % Seg Neutrophils # Lymphocytes # (Manual) ABG pO2 ABG HCO3 ABG Base Excess ABG Hemoglobin VBG pH Oxyhemoglobin Sodium Potassium Chloride Carbon Dioxide BUN Creatinine Glucose POC Glucose 208 H 213 H 161 H Hemoglobin A1c Lactic Acid Calcium Phosphorus Magnesium Alkaline Phosphatase C-Reactive Protein Total Protein Albumin Vancomycin Trough Crossmatch 04/24/21 04/24/21 04/24/21 07:58 09:21 10:06 WBC RBC Hgb Hct MCV MCH RDW Plt Count Lymph % (Auto) Seg Neutrophils % Seg Neuts % (Manual) Lymphocytes % (Manual) Nucleated RBC % Seg Neutrophils # Lymphocytes # (Manual) ABG pO2 ABG HCO3 ABG Base Excess ABG Hemoglobin VBG pH Oxyhemoglobin Sodium Potassium Chloride Carbon Dioxide BUN Creatinine Glucose POC Glucose 149 H 178 H 164 H Hemoglobin A1c Lactic Acid Calcium Phosphorus Magnesium Alkaline Phosphatase C-Reactive Protein Total Protein Albumin Vancomycin Trough Crossmatch 04/24/21 04/24/21 04/24/21 11:03 12:07 12:14 WBC RBC Hgb Hct MCV MCH RDW Plt Count Lymph % (Auto) Seg Neutrophils % Seg Neuts % (Manual) Lymphocytes % (Manual) Nucleated RBC % Seg Neutrophils # Lymphocytes # (Manual) ABG pO2 ABG HCO3 ABG Base Excess ABG Hemoglobin VBG pH Oxyhemoglobin Sodium Potassium 3.2 L Chloride 108.7 H Carbon Dioxide 16 L BUN 24 H Creatinine Glucose 160 H POC Glucose 157 H 142 H Hemoglobin A1c Lactic Acid Calcium 10.5 H Phosphorus 0.70 L* D Magnesium Alkaline Phosphatase C-Reactive Protein Total Protein Albumin Vancomycin Trough Crossmatch 04/24/21 04/24/21 04/24/21 12:14 13:02 14:00 WBC RBC Hgb Hct MCV MCH RDW Plt Count Lymph % (Auto) Seg Neutrophils % Seg Neuts % (Manual) Lymphocytes % (Manual) Nucleated RBC % Seg Neutrophils # Lymphocytes # (Manual) ABG pO2 ABG HCO3 ABG Base Excess ABG Hemoglobin VBG pH Oxyhemoglobin Sodium Potassium Chloride Carbon Dioxide BUN Creatinine Glucose POC Glucose 138 H 150 H Hemoglobin A1c Lactic Acid 2.50 H* Calcium Phosphorus Magnesium Alkaline Phosphatase C-Reactive Protein Total Protein Albumin Vancomycin Trough Crossmatch 04/24/21 04/24/21 04/24/21 15:14 16:07 17:11 WBC RBC Hgb Hct MCV MCH RDW Plt Count Lymph % (Auto) Seg Neutrophils % Seg Neuts % (Manual) Lymphocytes % (Manual) Nucleated RBC % Seg Neutrophils # Lymphocytes # (Manual) ABG pO2 ABG HCO3 ABG Base Excess ABG Hemoglobin VBG pH Oxyhemoglobin Sodium Potassium Chloride Carbon Dioxide BUN Creatinine Glucose POC Glucose 145 H 148 H 156 H Hemoglobin A1c Lactic Acid Calcium Phosphorus Magnesium Alkaline Phosphatase C-Reactive Protein Total Protein Albumin Vancomycin Trough Crossmatch 04/24/21 04/24/21 04/24/21 18:12 18:24 19:55 WBC RBC Hgb Hct MCV MCH RDW Plt Count Lymph % (Auto) Seg Neutrophils % Seg Neuts % (Manual) Lymphocytes % (Manual) Nucleated RBC % Seg Neutrophils # Lymphocytes # (Manual) ABG pO2 ABG HCO3 ABG Base Excess ABG Hemoglobin VBG pH Oxyhemoglobin Sodium Potassium Chloride 109.2 H Carbon Dioxide 15 L BUN 22 H Creatinine Glucose 159 H POC Glucose 153 H 176 H Hemoglobin A1c Lactic Acid Calcium Phosphorus 1.80 L D Magnesium Alkaline Phosphatase C-Reactive Protein 24.30 H Total Protein Albumin Vancomycin Trough Crossmatch 04/24/21 04/24/21 04/24/21 20:55 22:04 23:02 WBC RBC Hgb Hct MCV MCH RDW Plt Count Lymph % (Auto) Seg Neutrophils % Seg Neuts % (Manual) Lymphocytes % (Manual) Nucleated RBC % Seg Neutrophils # Lymphocytes # (Manual) ABG pO2 ABG HCO3 ABG Base Excess ABG Hemoglobin VBG pH Oxyhemoglobin Sodium Potassium Chloride Carbon Dioxide BUN Creatinine Glucose POC Glucose 146 H 169 H Hemoglobin A1c Lactic Acid 3.10 H* Calcium Phosphorus Magnesium Alkaline Phosphatase C-Reactive Protein Total Protein Albumin Vancomycin Trough Crossmatch 04/24/21 04/25/21 04/25/21 23:13 00:05 01:28 WBC RBC Hgb Hct MCV MCH RDW Plt Count Lymph % (Auto) Seg Neutrophils % Seg Neuts % (Manual) Lymphocytes % (Manual) Nucleated RBC % Seg Neutrophils # Lymphocytes # (Manual) ABG pO2 ABG HCO3 ABG Base Excess ABG Hemoglobin VBG pH Oxyhemoglobin Sodium Potassium Chloride Carbon Dioxide BUN Creatinine Glucose POC Glucose 144 H 150 H 142 H Hemoglobin A1c Lactic Acid Calcium Phosphorus Magnesium Alkaline Phosphatase C-Reactive Protein Total Protein Albumin Vancomycin Trough Crossmatch 04/25/21 04/25/21 04/25/21 02:03 03:07 04:17 WBC RBC Hgb Hct MCV MCH RDW Plt Count Lymph % (Auto) Seg Neutrophils % Seg Neuts % (Manual) Lymphocytes % (Manual) Nucleated RBC % Seg Neutrophils # Lymphocytes # (Manual) ABG pO2 ABG HCO3 ABG Base Excess ABG Hemoglobin VBG pH Oxyhemoglobin Sodium Potassium Chloride Carbon Dioxide BUN Creatinine Glucose POC Glucose 148 H 161 H 158 H Hemoglobin A1c Lactic Acid Calcium Phosphorus Magnesium Alkaline Phosphatase C-Reactive Protein Total Protein Albumin Vancomycin Trough Crossmatch 04/25/21 04/25/21 04/25/21 05:48 06:52 07:58 WBC RBC Hgb Hct MCV MCH RDW Plt Count Lymph % (Auto) Seg Neutrophils % Seg Neuts % (Manual) Lymphocytes % (Manual) Nucleated RBC % Seg Neutrophils # Lymphocytes # (Manual) ABG pO2 ABG HCO3 ABG Base Excess ABG Hemoglobin VBG pH Oxyhemoglobin Sodium Potassium Chloride Carbon Dioxide BUN Creatinine Glucose POC Glucose 136 H 137 H 143 H Hemoglobin A1c Lactic Acid Calcium Phosphorus Magnesium Alkaline Phosphatase C-Reactive Protein Total Protein Albumin Vancomycin Trough Crossmatch 04/25/21 04/25/21 04/25/21 08:10 08:10 08:10 WBC RBC Hgb 9.5 L Hct 28.8 L MCV MCH 26 L RDW Plt Count Lymph % (Auto) Seg Neutrophils % Seg Neuts % (Manual) 33.0 L Lymphocytes % (Manual) Nucleated RBC % Seg Neutrophils # Lymphocytes # (Manual) 1.1 L ABG pO2 ABG HCO3 ABG Base Excess ABG Hemoglobin VBG pH Oxyhemoglobin Sodium Potassium 3.3 L Chloride 109.0 H Carbon Dioxide 16 L BUN 23 H Creatinine Glucose 151 H POC Glucose Hemoglobin A1c Lactic Acid 2.10 H* Calcium Phosphorus 2.20 L D Magnesium 1.60 L Alkaline Phosphatase C-Reactive Protein Total Protein Albumin Vancomycin Trough Crossmatch 04/25/21 04/25/21 04/25/21 08:53 09:59 11:20 WBC RBC Hgb Hct MCV MCH RDW Plt Count Lymph % (Auto) Seg Neutrophils % Seg Neuts % (Manual) Lymphocytes % (Manual) Nucleated RBC % Seg Neutrophils # Lymphocytes # (Manual) ABG pO2 ABG HCO3 ABG Base Excess ABG Hemoglobin VBG pH Oxyhemoglobin Sodium Potassium Chloride Carbon Dioxide BUN Creatinine Glucose POC Glucose 132 H 141 H 141 H Hemoglobin A1c Lactic Acid Calcium Phosphorus Magnesium Alkaline Phosphatase C-Reactive Protein Total Protein Albumin Vancomycin Trough Crossmatch 04/25/21 04/25/21 04/25/21 11:20 12:04 12:26 WBC RBC Hgb Hct MCV MCH RDW Plt Count Lymph % (Auto) Seg Neutrophils % Seg Neuts % (Manual) Lymphocytes % (Manual) Nucleated RBC % Seg Neutrophils # Lymphocytes # (Manual) ABG pO2 73.2 L ABG HCO3 16.2 L ABG Base Excess -7.1 L ABG Hemoglobin 8.7 L VBG pH Oxyhemoglobin 94.8 L Sodium Potassium 3.4 L Chloride 109.5 H Carbon Dioxide 14 L BUN 21 H Creatinine Glucose 155 H POC Glucose 129 H Hemoglobin A1c Lactic Acid Calcium Phosphorus 1.90 L Magnesium 1.60 L Alkaline Phosphatase C-Reactive Protein Total Protein Albumin Vancomycin Trough Crossmatch 04/25/21 04/25/21 04/25/21 13:04 13:58 15:09 WBC RBC Hgb Hct MCV MCH RDW Plt Count Lymph % (Auto) Seg Neutrophils % Seg Neuts % (Manual) Lymphocytes % (Manual) Nucleated RBC % Seg Neutrophils # Lymphocytes # (Manual) ABG pO2 ABG HCO3 ABG Base Excess ABG Hemoglobin VBG pH Oxyhemoglobin Sodium Potassium Chloride Carbon Dioxide BUN Creatinine Glucose POC Glucose 135 H 140 H 134 H Hemoglobin A1c Lactic Acid Calcium Phosphorus Magnesium Alkaline Phosphatase C-Reactive Protein Total Protein Albumin Vancomycin Trough Crossmatch 04/25/21 04/25/21 04/25/21 16:00 18:56 18:58 WBC RBC Hgb Hct MCV MCH RDW Plt Count Lymph % (Auto) Seg Neutrophils % Seg Neuts % (Manual) Lymphocytes % (Manual) Nucleated RBC % Seg Neutrophils # Lymphocytes # (Manual) ABG pO2 ABG HCO3 ABG Base Excess ABG Hemoglobin VBG pH Oxyhemoglobin Sodium Potassium Chloride Carbon Dioxide BUN Creatinine Glucose POC Glucose 135 H 170 H Hemoglobin A1c Lactic Acid 2.10 H* Calcium Phosphorus Magnesium Alkaline Phosphatase C-Reactive Protein Total Protein Albumin Vancomycin Trough Crossmatch 04/25/21 04/25/21 04/25/21 18:58 19:52 20:53 WBC RBC Hgb Hct MCV MCH RDW Plt Count Lymph % (Auto) Seg Neutrophils % Seg Neuts % (Manual) Lymphocytes % (Manual) Nucleated RBC % Seg Neutrophils # Lymphocytes # (Manual) ABG pO2 ABG HCO3 ABG Base Excess ABG Hemoglobin VBG pH Oxyhemoglobin Sodium Potassium Chloride 110.1 H Carbon Dioxide 13 L BUN 23 H Creatinine Glucose 206 H POC Glucose 162 H 171 H Hemoglobin A1c Lactic Acid Calcium Phosphorus Magnesium 2.40 H Alkaline Phosphatase C-Reactive Protein Total Protein Albumin Vancomycin Trough Crossmatch 04/25/21 04/25/21 04/26/21 21:54 22:53 00:03 WBC RBC Hgb Hct MCV MCH RDW Plt Count Lymph % (Auto) Seg Neutrophils % Seg Neuts % (Manual) Lymphocytes % (Manual) Nucleated RBC % Seg Neutrophils # Lymphocytes # (Manual) ABG pO2 ABG HCO3 ABG Base Excess ABG Hemoglobin VBG pH Oxyhemoglobin Sodium Potassium Chloride Carbon Dioxide BUN Creatinine Glucose POC Glucose 139 H 140 H 129 H Hemoglobin A1c Lactic Acid Calcium Phosphorus Magnesium Alkaline Phosphatase C-Reactive Protein Total Protein Albumin Vancomycin Trough Crossmatch 04/26/21 04/26/21 04/26/21 00:38 01:00 01:56 WBC RBC Hgb Hct MCV MCH RDW Plt Count Lymph % (Auto) Seg Neutrophils % Seg Neuts % (Manual) Lymphocytes % (Manual) Nucleated RBC % Seg Neutrophils # Lymphocytes # (Manual) ABG pO2 ABG HCO3 ABG Base Excess ABG Hemoglobin VBG pH Oxyhemoglobin Sodium Potassium Chloride 112.6 H Carbon Dioxide 14 L BUN 22 H Creatinine Glucose 149 H POC Glucose 126 H 137 H Hemoglobin A1c Lactic Acid Calcium Phosphorus Magnesium 2.40 H Alkaline Phosphatase C-Reactive Protein Total Protein Albumin Vancomycin Trough Crossmatch 04/26/21 04/26/21 04/26/21 02:54 04:04 05:02 WBC RBC 3.44 L Hgb 8.9 L Hct 26.9 L MCV 78 L MCH 26 L RDW Plt Count Lymph % (Auto) Seg Neutrophils % Seg Neuts % (Manual) Lymphocytes % (Manual) Nucleated RBC % Seg Neutrophils # Lymphocytes # (Manual) ABG pO2 ABG HCO3 ABG Base Excess ABG Hemoglobin VBG pH Oxyhemoglobin Sodium Potassium Chloride Carbon Dioxide BUN Creatinine Glucose POC Glucose 132 H 130 H Hemoglobin A1c Lactic Acid Calcium Phosphorus Magnesium Alkaline Phosphatase C-Reactive Protein Total Protein Albumin Vancomycin Trough Crossmatch 04/26/21 04/26/21 04/26/21 05:02 05:03 06:06 WBC RBC Hgb Hct MCV MCH RDW Plt Count Lymph % (Auto) Seg Neutrophils % Seg Neuts % (Manual) Lymphocytes % (Manual) Nucleated RBC % Seg Neutrophils # Lymphocytes # (Manual) ABG pO2 ABG HCO3 ABG Base Excess ABG Hemoglobin VBG pH Oxyhemoglobin Sodium Potassium Chloride 114.8 H Carbon Dioxide 14 L BUN 22 H Creatinine Glucose 129 H POC Glucose 115 H 129 H Hemoglobin A1c Lactic Acid Calcium Phosphorus Magnesium Alkaline Phosphatase C-Reactive Protein Total Protein Albumin Vancomycin Trough Crossmatch 04/26/21 04/26/21 04/26/21 06:53 07:58 09:09 WBC RBC Hgb Hct MCV MCH RDW Plt Count Lymph % (Auto) Seg Neutrophils % Seg Neuts % (Manual) Lymphocytes % (Manual) Nucleated RBC % Seg Neutrophils # Lymphocytes # (Manual) ABG pO2 ABG HCO3 ABG Base Excess ABG Hemoglobin VBG pH Oxyhemoglobin Sodium Potassium Chloride Carbon Dioxide BUN Creatinine Glucose POC Glucose 121 H 124 H 125 H Hemoglobin A1c Lactic Acid Calcium Phosphorus Magnesium Alkaline Phosphatase C-Reactive Protein Total Protein Albumin Vancomycin Trough Crossmatch 04/26/21 04/26/21 04/26/21 10:05 10:52 12:00 WBC RBC Hgb Hct MCV MCH RDW Plt Count Lymph % (Auto) Seg Neutrophils % Seg Neuts % (Manual) Lymphocytes % (Manual) Nucleated RBC % Seg Neutrophils # Lymphocytes # (Manual) ABG pO2 ABG HCO3 ABG Base Excess ABG Hemoglobin VBG pH Oxyhemoglobin Sodium Potassium Chloride Carbon Dioxide BUN Creatinine Glucose POC Glucose 131 H 129 H 126 H Hemoglobin A1c Lactic Acid Calcium Phosphorus Magnesium Alkaline Phosphatase C-Reactive Protein Total Protein Albumin Vancomycin Trough Crossmatch 04/26/21 04/26/21 04/26/21 13:17 14:06 14:11 WBC RBC Hgb Hct MCV MCH RDW Plt Count Lymph % (Auto) Seg Neutrophils % Seg Neuts % (Manual) Lymphocytes % (Manual) Nucleated RBC % Seg Neutrophils # Lymphocytes # (Manual) ABG pO2 ABG HCO3 ABG Base Excess ABG Hemoglobin VBG pH Oxyhemoglobin Sodium Potassium 5.3 H D Chloride 112.2 H Carbon Dioxide 14 L BUN 22 H Creatinine Glucose 116 H POC Glucose 130 H 132 H Hemoglobin A1c Lactic Acid Calcium Phosphorus Magnesium 2.40 H Alkaline Phosphatase C-Reactive Protein Total Protein Albumin Vancomycin Trough Crossmatch 04/26/21 04/26/21 04/26/21 15:07 15:20 16:05 WBC RBC Hgb Hct MCV MCH RDW Plt Count Lymph % (Auto) Seg Neutrophils % Seg Neuts % (Manual) Lymphocytes % (Manual) Nucleated RBC % Seg Neutrophils # Lymphocytes # (Manual) ABG pO2 ABG HCO3 ABG Base Excess ABG Hemoglobin VBG pH Oxyhemoglobin Sodium Potassium Chloride 112.4 H Carbon Dioxide 13 L BUN 22 H Creatinine Glucose 143 H POC Glucose 130 H 156 H Hemoglobin A1c Lactic Acid Calcium Phosphorus Magnesium Alkaline Phosphatase C-Reactive Protein Total Protein Albumin Vancomycin Trough Crossmatch 04/26/21 04/26/21 04/27/21 17:55 19:27 00:02 WBC RBC Hgb Hct MCV MCH RDW Plt Count Lymph % (Auto) Seg Neutrophils % Seg Neuts % (Manual) Lymphocytes % (Manual) Nucleated RBC % Seg Neutrophils # Lymphocytes # (Manual) ABG pO2 ABG HCO3 ABG Base Excess ABG Hemoglobin VBG pH Oxyhemoglobin Sodium Potassium Chloride Carbon Dioxide BUN Creatinine Glucose POC Glucose 194 H 261 H Hemoglobin A1c Lactic Acid Calcium Phosphorus Magnesium Alkaline Phosphatase C-Reactive Protein Total Protein Albumin Vancomycin Trough 38.2 H Crossmatch 04/27/21 04/27/21 04/27/21 04:03 04:03 05:33 WBC RBC 3.20 L Hgb 8.1 L Hct 25.1 L MCV 78 L MCH 25 L RDW Plt Count Lymph % (Auto) Seg Neutrophils % Seg Neuts % (Manual) Lymphocytes % (Manual) Nucleated RBC % Seg Neutrophils # Lymphocytes # (Manual) ABG pO2 ABG HCO3 ABG Base Excess ABG Hemoglobin VBG pH Oxyhemoglobin Sodium Potassium Chloride 112.4 H Carbon Dioxide 12 L BUN 30 H Creatinine Glucose 330 H POC Glucose 311 H Hemoglobin A1c Lactic Acid Calcium Phosphorus Magnesium Alkaline Phosphatase C-Reactive Protein Total Protein Albumin Vancomycin Trough Crossmatch 04/27/21 04/27/21 04/27/21 09:51 13:15 16:43 WBC RBC Hgb Hct MCV MCH RDW Plt Count Lymph % (Auto) Seg Neutrophils % Seg Neuts % (Manual) Lymphocytes % (Manual) Nucleated RBC % Seg Neutrophils # Lymphocytes # (Manual) ABG pO2 ABG HCO3 ABG Base Excess ABG Hemoglobin VBG pH Oxyhemoglobin Sodium Potassium Chloride Carbon Dioxide BUN Creatinine Glucose POC Glucose 335 H 291 H 218 H Hemoglobin A1c Lactic Acid Calcium Phosphorus Magnesium Alkaline Phosphatase C-Reactive Protein Total Protein Albumin Vancomycin Trough Crossmatch 04/27/21 04/27/21 04/28/21 18:10 22:08 02:15 WBC RBC Hgb Hct MCV MCH RDW Plt Count Lymph % (Auto) Seg Neutrophils % Seg Neuts % (Manual) Lymphocytes % (Manual) Nucleated RBC % Seg Neutrophils # Lymphocytes # (Manual) ABG pO2 ABG HCO3 ABG Base Excess ABG Hemoglobin VBG pH Oxyhemoglobin Sodium Potassium Chloride Carbon Dioxide BUN Creatinine Glucose POC Glucose 177 H 136 H 152 H Hemoglobin A1c Lactic Acid Calcium Phosphorus Magnesium Alkaline Phosphatase C-Reactive Protein Total Protein Albumin Vancomycin Trough Crossmatch 04/28/21 04/28/21 04/28/21 04:41 04:41 06:03 WBC RBC 3.50 L Hgb 8.9 L Hct 27.3 L MCV 78 L MCH 26 L RDW Plt Count Lymph % (Auto) Seg Neutrophils % Seg Neuts % (Manual) Lymphocytes % (Manual) Nucleated RBC % Seg Neutrophils # Lymphocytes # (Manual) ABG pO2 ABG HCO3 ABG Base Excess ABG Hemoglobin VBG pH Oxyhemoglobin Sodium Potassium Chloride 113.5 H Carbon Dioxide 16 L BUN 37 H Creatinine Glucose 167 H POC Glucose 174 H Hemoglobin A1c Lactic Acid Calcium Phosphorus Magnesium Alkaline Phosphatase C-Reactive Protein Total Protein Albumin Vancomycin Trough Crossmatch 04/28/21 04/28/21 04/28/21 08:42 11:34 17:15 WBC RBC Hgb Hct MCV MCH RDW Plt Count Lymph % (Auto) Seg Neutrophils % Seg Neuts % (Manual) Lymphocytes % (Manual) Nucleated RBC % Seg Neutrophils # Lymphocytes # (Manual) ABG pO2 ABG HCO3 ABG Base Excess ABG Hemoglobin VBG pH Oxyhemoglobin Sodium Potassium Chloride Carbon Dioxide BUN Creatinine Glucose POC Glucose 212 H 228 H 236 H Hemoglobin A1c Lactic Acid Calcium Phosphorus Magnesium Alkaline Phosphatase C-Reactive Protein Total Protein Albumin Vancomycin Trough Crossmatch 04/28/21 04/29/21 04/29/21 21:58 01:55 04:00 WBC 11.7 H RBC 3.35 L Hgb 8.5 L Hct 26.4 L MCV MCH 25 L RDW Plt Count Lymph % (Auto) Seg Neutrophils % Seg Neuts % (Manual) Lymphocytes % (Manual) Nucleated RBC % Seg Neutrophils # Lymphocytes # (Manual) ABG pO2 ABG HCO3 ABG Base Excess ABG Hemoglobin VBG pH Oxyhemoglobin Sodium Potassium Chloride Carbon Dioxide BUN Creatinine Glucose POC Glucose 208 H 137 H Hemoglobin A1c Lactic Acid Calcium Phosphorus Magnesium Alkaline Phosphatase C-Reactive Protein Total Protein Albumin Vancomycin Trough Crossmatch 04/29/21 04/29/21 04/29/21 04:00 05:16 11:02 WBC RBC Hgb Hct MCV MCH RDW Plt Count Lymph % (Auto) Seg Neutrophils % Seg Neuts % (Manual) Lymphocytes % (Manual) Nucleated RBC % Seg Neutrophils # Lymphocytes # (Manual) ABG pO2 ABG HCO3 ABG Base Excess ABG Hemoglobin VBG pH Oxyhemoglobin Sodium 146 H Potassium Chloride 112.4 H Carbon Dioxide BUN 41 H Creatinine Glucose 115 H POC Glucose 114 H 144 H Hemoglobin A1c Lactic Acid Calcium Phosphorus Magnesium Alkaline Phosphatase C-Reactive Protein Total Protein Albumin Vancomycin Trough Crossmatch 04/30/21 04/30/21 04/30/21 00:23 04:41 04:41 WBC 14.4 H RBC 3.12 L Hgb 7.8 L Hct 24.7 L MCV MCH 25 L RDW Plt Count 138 L Lymph % (Auto) Seg Neutrophils % Seg Neuts % (Manual) Lymphocytes % (Manual) Nucleated RBC % Seg Neutrophils # Lymphocytes # (Manual) ABG pO2 ABG HCO3 ABG Base Excess ABG Hemoglobin VBG pH Oxyhemoglobin Sodium Potassium Chloride 108.0 H Carbon Dioxide BUN 42 H Creatinine Glucose 215 H POC Glucose 126 H Hemoglobin A1c Lactic Acid Calcium Phosphorus Magnesium Alkaline Phosphatase 171 H C-Reactive Protein Total Protein 6.1 L Albumin 1.4 L Vancomycin Trough Crossmatch 04/30/21 04/30/21 04/30/21 05:22 11:55 17:36 WBC RBC Hgb Hct MCV MCH RDW Plt Count Lymph % (Auto) Seg Neutrophils % Seg Neuts % (Manual) Lymphocytes % (Manual) Nucleated RBC % Seg Neutrophils # Lymphocytes # (Manual) ABG pO2 ABG HCO3 ABG Base Excess ABG Hemoglobin VBG pH Oxyhemoglobin Sodium Potassium Chloride Carbon Dioxide BUN Creatinine Glucose POC Glucose 196 H 224 H 196 H Hemoglobin A1c Lactic Acid Calcium Phosphorus Magnesium Alkaline Phosphatase C-Reactive Protein Total Protein Albumin Vancomycin Trough Crossmatch 05/01/21 05/01/21 05/01/21 04:01 05:37 05:37 WBC 16.9 H RBC 2.97 L Hgb 7.4 L Hct 23.1 L MCV 78 L MCH 25 L RDW Plt Count Lymph % (Auto) Seg Neutrophils % Seg Neuts % (Manual) Lymphocytes % (Manual) Nucleated RBC % Seg Neutrophils # Lymphocytes # (Manual) ABG pO2 ABG HCO3 ABG Base Excess ABG Hemoglobin VBG pH Oxyhemoglobin Sodium Potassium Chloride 108.4 H Carbon Dioxide BUN 41 H Creatinine Glucose 124 H POC Glucose 122 H Hemoglobin A1c Lactic Acid Calcium 8.0 L Phosphorus Magnesium Alkaline Phosphatase C-Reactive Protein Total Protein Albumin Vancomycin Trough Crossmatch 05/01/21 05/01/21 05/01/21 06:27 13:45 16:40 WBC RBC Hgb Hct MCV MCH RDW Plt Count Lymph % (Auto) Seg Neutrophils % Seg Neuts % (Manual) Lymphocytes % (Manual) Nucleated RBC % Seg Neutrophils # Lymphocytes # (Manual) ABG pO2 ABG HCO3 ABG Base Excess ABG Hemoglobin VBG pH Oxyhemoglobin Sodium Potassium Chloride Carbon Dioxide BUN Creatinine Glucose POC Glucose 126 H 231 H 266 H Hemoglobin A1c Lactic Acid Calcium Phosphorus Magnesium Alkaline Phosphatase C-Reactive Protein Total Protein Albumin Vancomycin Trough Crossmatch 05/01/21 05/02/21 05/02/21 23:16 05:43 11:27 WBC RBC Hgb Hct MCV MCH RDW Plt Count Lymph % (Auto) Seg Neutrophils % Seg Neuts % (Manual) Lymphocytes % (Manual) Nucleated RBC % Seg Neutrophils # Lymphocytes # (Manual) ABG pO2 ABG HCO3 ABG Base Excess ABG Hemoglobin VBG pH Oxyhemoglobin Sodium Potassium Chloride Carbon Dioxide BUN Creatinine Glucose POC Glucose 192 H 236 H 284 H Hemoglobin A1c Lactic Acid Calcium Phosphorus Magnesium Alkaline Phosphatase C-Reactive Protein Total Protein Albumin Vancomycin Trough Crossmatch 05/02/21 05/02/21 05/03/21 16:52 23:20 06:16 WBC RBC Hgb Hct MCV MCH RDW Plt Count Lymph % (Auto) Seg Neutrophils % Seg Neuts % (Manual) Lymphocytes % (Manual) Nucleated RBC % Seg Neutrophils # Lymphocytes # (Manual) ABG pO2 ABG HCO3 ABG Base Excess ABG Hemoglobin VBG pH Oxyhemoglobin Sodium Potassium Chloride Carbon Dioxide BUN Creatinine Glucose POC Glucose 170 H 124 H 147 H Hemoglobin A1c Lactic Acid Calcium Phosphorus Magnesium Alkaline Phosphatase C-Reactive Protein Total Protein Albumin Vancomycin Trough Crossmatch 05/03/21 05/03/21 05/03/21 07:05 07:05 11:46 WBC 14.3 H RBC 2.82 L Hgb 6.8 L Hct 22.7 L MCV MCH 24 L RDW Plt Count Lymph % (Auto) 11.8 L Seg Neutrophils % 83.3 H Seg Neuts % (Manual) Lymphocytes % (Manual) Nucleated RBC % Seg Neutrophils # 11.9 H Lymphocytes # (Manual) ABG pO2 ABG HCO3 ABG Base Excess ABG Hemoglobin VBG pH Oxyhemoglobin Sodium Potassium Chloride Carbon Dioxide BUN 39 H Creatinine Glucose 163 H POC Glucose 134 H Hemoglobin A1c Lactic Acid Calcium Phosphorus Magnesium Alkaline Phosphatase C-Reactive Protein Total Protein Albumin Vancomycin Trough Crossmatch 05/03/21 05/03/21 05/03/21 17:11 18:00 19:46 WBC RBC Hgb Hct MCV MCH RDW Plt Count Lymph % (Auto) Seg Neutrophils % Seg Neuts % (Manual) Lymphocytes % (Manual) Nucleated RBC % Seg Neutrophils # Lymphocytes # (Manual) ABG pO2 ABG HCO3 ABG Base Excess ABG Hemoglobin VBG pH Oxyhemoglobin Sodium Potassium Chloride Carbon Dioxide BUN Creatinine Glucose POC Glucose 129 H 128 H Hemoglobin A1c Lactic Acid Calcium Phosphorus Magnesium Alkaline Phosphatase C-Reactive Protein Total Protein Albumin Vancomycin Trough Crossmatch See Detail 05/03/21 05/04/21 05/04/21 22:00 08:06 11:19 WBC RBC Hgb Hct MCV MCH RDW Plt Count Lymph % (Auto) Seg Neutrophils % Seg Neuts % (Manual) Lymphocytes % (Manual) Nucleated RBC % Seg Neutrophils # Lymphocytes # (Manual) ABG pO2 ABG HCO3 ABG Base Excess ABG Hemoglobin VBG pH Oxyhemoglobin Sodium Potassium Chloride Carbon Dioxide BUN Creatinine Glucose POC Glucose 144 H 337 H 383 H Hemoglobin A1c Lactic Acid Calcium Phosphorus Magnesium Alkaline Phosphatase C-Reactive Protein Total Protein Albumin Vancomycin Trough Crossmatch 05/04/21 05/04/21 05/05/21 17:43 23:01 06:05 WBC RBC Hgb Hct MCV MCH RDW Plt Count Lymph % (Auto) Seg Neutrophils % Seg Neuts % (Manual) Lymphocytes % (Manual) Nucleated RBC % Seg Neutrophils # Lymphocytes # (Manual) ABG pO2 ABG HCO3 ABG Base Excess ABG Hemoglobin VBG pH Oxyhemoglobin Sodium Potassium Chloride Carbon Dioxide BUN Creatinine Glucose POC Glucose 316 H 320 H 395 H Hemoglobin A1c Lactic Acid Calcium Phosphorus Magnesium Alkaline Phosphatase C-Reactive Protein Total Protein Albumin Vancomycin Trough Crossmatch 05/05/21 05/05/21 05/05/21 06:15 06:15 11:38 WBC RBC 2.56 L Hgb 6.8 L 6.9 L Hct 21.4 L 22.7 L MCV MCH 27 L RDW Plt Count 442 H Lymph % (Auto) Seg Neutrophils % 76.5 H Seg Neuts % (Manual) Lymphocytes % (Manual) Nucleated RBC % Seg Neutrophils # Lymphocytes # (Manual) ABG pO2 ABG HCO3 ABG Base Excess ABG Hemoglobin VBG pH Oxyhemoglobin Sodium Potassium Chloride Carbon Dioxide BUN 52 H Creatinine Glucose 430 H POC Glucose Hemoglobin A1c Lactic Acid Calcium Phosphorus Magnesium Alkaline Phosphatase C-Reactive Protein Total Protein Albumin Vancomycin Trough Crossmatch 05/05/21 05/05/21 05/06/21 11:47 23:07 06:44 WBC RBC Hgb Hct MCV MCH RDW Plt Count Lymph % (Auto) Seg Neutrophils % Seg Neuts % (Manual) Lymphocytes % (Manual) Nucleated RBC % Seg Neutrophils # Lymphocytes # (Manual) ABG pO2 ABG HCO3 ABG Base Excess ABG Hemoglobin VBG pH Oxyhemoglobin Sodium Potassium Chloride Carbon Dioxide BUN Creatinine Glucose POC Glucose 307 H 141 H 147 H Hemoglobin A1c Lactic Acid Calcium Phosphorus Magnesium Alkaline Phosphatase C-Reactive Protein Total Protein Albumin Vancomycin Trough Crossmatch 05/06/21 05/06/21 05/06/21 07:52 12:27 17:02 WBC RBC Hgb 7.0 L Hct 21.8 L MCV MCH RDW Plt Count Lymph % (Auto) Seg Neutrophils % Seg Neuts % (Manual) Lymphocytes % (Manual) Nucleated RBC % Seg Neutrophils # Lymphocytes # (Manual) ABG pO2 ABG HCO3 ABG Base Excess ABG Hemoglobin VBG pH Oxyhemoglobin Sodium Potassium Chloride Carbon Dioxide BUN Creatinine Glucose POC Glucose 200 H 135 H Hemoglobin A1c Lactic Acid Calcium Phosphorus Magnesium Alkaline Phosphatase C-Reactive Protein Total Protein Albumin Vancomycin Trough Crossmatch 05/06/21 05/07/21 05/07/21 23:03 08:02 10:49 WBC RBC Hgb 7.4 L Hct 23.7 L MCV MCH RDW Plt Count Lymph % (Auto) Seg Neutrophils % Seg Neuts % (Manual) Lymphocytes % (Manual) Nucleated RBC % Seg Neutrophils # Lymphocytes # (Manual) ABG pO2 ABG HCO3 ABG Base Excess ABG Hemoglobin VBG pH Oxyhemoglobin Sodium Potassium Chloride Carbon Dioxide BUN Creatinine Glucose POC Glucose 150 H 255 H Hemoglobin A1c Lactic Acid Calcium Phosphorus Magnesium Alkaline Phosphatase C-Reactive Protein Total Protein Albumin Vancomycin Trough Crossmatch 05/07/21 05/07/21 05/07/21 13:27 18:03 Unknown WBC RBC 2.66 L Hgb 6.9 L Hct 22.3 L MCV MCH 26 L RDW 15.4 H Plt Count 449 H Lymph % (Auto) Seg Neutrophils % 70.7 H Seg Neuts % (Manual) Lymphocytes % (Manual) Nucleated RBC % Seg Neutrophils # Lymphocytes # (Manual) ABG pO2 ABG HCO3 ABG Base Excess ABG Hemoglobin VBG pH Oxyhemoglobin Sodium Potassium Chloride Carbon Dioxide BUN Creatinine Glucose POC Glucose 149 H 127 H Hemoglobin A1c Lactic Acid Calcium Phosphorus Magnesium Alkaline Phosphatase C-Reactive Protein Total Protein Albumin Vancomycin Trough Crossmatch 05/08/21 05/08/21 05/08/21 06:10 07:51 11:55 WBC RBC Hgb Hct MCV MCH RDW Plt Count Lymph % (Auto) Seg Neutrophils % Seg Neuts % (Manual) Lymphocytes % (Manual) Nucleated RBC % Seg Neutrophils # Lymphocytes # (Manual) ABG pO2 ABG HCO3 ABG Base Excess ABG Hemoglobin VBG pH Oxyhemoglobin Sodium Potassium Chloride Carbon Dioxide BUN Creatinine Glucose POC Glucose 190 H 194 H 197 H Hemoglobin A1c Lactic Acid Calcium Phosphorus Magnesium Alkaline Phosphatase C-Reactive Protein Total Protein Albumin Vancomycin Trough Crossmatch 05/08/21 05/08/21 05/08/21 12:25 12:25 18:35 WBC RBC 2.42 L Hgb 6.6 L Hct 20.1 L MCV MCH 27 L RDW 15.3 H Plt Count 452 H Lymph % (Auto) Seg Neutrophils % Seg Neuts % (Manual) Lymphocytes % (Manual) Nucleated RBC % Seg Neutrophils # Lymphocytes # (Manual) ABG pO2 ABG HCO3 ABG Base Excess ABG Hemoglobin VBG pH Oxyhemoglobin Sodium Potassium Chloride Carbon Dioxide BUN 27 H Creatinine Glucose 216 H POC Glucose 195 H Hemoglobin A1c Lactic Acid Calcium 7.9 L Phosphorus Magnesium Alkaline Phosphatase C-Reactive Protein Total Protein Albumin Vancomycin Trough Crossmatch 05/08/21 05/09/21 05/09/21 23:45 01:39 02:57 WBC RBC Hgb 6.6 L Hct 20.7 L MCV MCH RDW Plt Count Lymph % (Auto) Seg Neutrophils % Seg Neuts % (Manual) Lymphocytes % (Manual) Nucleated RBC % Seg Neutrophils # Lymphocytes # (Manual) ABG pO2 ABG HCO3 ABG Base Excess ABG Hemoglobin VBG pH Oxyhemoglobin Sodium Potassium Chloride Carbon Dioxide BUN Creatinine Glucose POC Glucose 286 H Hemoglobin A1c Lactic Acid Calcium Phosphorus Magnesium Alkaline Phosphatase C-Reactive Protein Total Protein Albumin Vancomycin Trough Crossmatch See Detail 05/09/21 05/09/21 04:51 07:34 WBC RBC Hgb Hct MCV MCH RDW Plt Count Lymph % (Auto) Seg Neutrophils % Seg Neuts % (Manual) Lymphocytes % (Manual) Nucleated RBC % Seg Neutrophils # Lymphocytes # (Manual) ABG pO2 ABG HCO3 ABG Base Excess ABG Hemoglobin VBG pH Oxyhemoglobin Sodium Potassium Chloride Carbon Dioxide BUN 24 H Creatinine Glucose 307 H POC Glucose 266 H Hemoglobin A1c Lactic Acid Calcium 7.7 L Phosphorus Magnesium Alkaline Phosphatase C-Reactive Protein Total Protein Albumin Vancomycin Trough Crossmatch Allied health notes reviewed: nursing
[2021-05-09] MEDS: INSULIN NPH/REGULAR 70/30 INJ SUB-Q SCH ×2 (09:32→17:51)
[2021-05-09] MEDS: FAMOTIDINE 20 MG TAB FEEDTUBE SCH (09:33)
[2021-05-09] MEDS: oxyCODONE /ACETAMINOPHEN 5-325MG TAB PO PRN (09:33)
--- NOTE | 2021-05-09 12:14 | Progress Note ---
Assessment and Plan Cultures: 04/24/2021 Blood culture: GBS Blood culture 04/26/2021: No growth 04/30/2021 R knee synovial fluid culture: Group B Streptococcus 05/03/2021 right knee OR culture: No growth A/P: 51 yo F with DM2, HTN, morbid obesity presented with sepsis #Acute sepsis: secondary to group B streptococcus bacteremia, source is R knee. #Group B streptococcus bacteremia secondary to R knee septic arthritis: Reports a history of previous right knee septic arthritis and has been treated with antibiotics at least twice in the past. X-ray shows large joint effusion. TTE without any evidence of valvular vegetations/endocarditis. Arthrocentesis culture also positive. Status post I&D followed by arthroscopic examination of right knee on 05/03/2021, as per operative note, "entered the joint proper with return of copious amounts of purulent material" and "significant cartilage degeneration from repeated infections" #DM2: tight glycemic control for best outcomes. Recs: -continue higher dose IV Ancef due to her morbid obesity -Follow-up ortho recs regarding CT R leg and knee there seems to be a collection in the right knee anterior to the femur with some air bubbles, may represent residual infection v/s related to recent surgery. Given ongoing intermittent fevers, suggestive of residual infection. Defer additional surgical needs to orthopedics -will need a longer ~6 weeks course of IV abx after surgery due to her history of recurrence / chronicity and possibility of osteomyelitis, extensive cartilage degeneration. -upon discharge, continue IV Ceftriaxone ending 06/14/2021, CM orders have already been placed Holly Leroy MD, FACVioleta, ALYSSA [facility] O: [phone] F: [phone] Subjective Date of service: 05/09/21 Principal diagnosis: HAGMA; DKA; AMS; Obesity; Osteoarthritis; Hypercalcemia Interval history: Fever yesterday. Low-grade temperatures today. Objective - Exam Narrative Exam: Physical Exam: Constitutional: Alert, cooperative. Head, Ears, Nose: Normocephalic, atraumatic. External ears, nose normal Eyes: Conjunctivae/corneas clear. No icterus. No ptosis. Neck: Supple, no meningeal signs Cardiovascular: S1, S2 + Respiratory: Good air entry, clear to auscultation bilaterally GI: Soft, non-tender; bowel sounds normal. No peritoneal signs Musculoskeletal: Right knee with dressing +, swelling and tenderness + Skin: No rash or abscess Hem/Lymphatic: No palpable cervical or supraclavicular nodes. No lymphangitis Psych: Mood ok. Affect normal Neurological: Awake, alert, oriented. No gross abnormality - Constitutional Vitals: Vital Signs Temp Pulse Resp BP Pulse Ox 99.3 F 117 H 18 153/77 92 05/09/21 04:48 05/09/21 04:48 05/09/21 04:48 05/09/21 04:48 05/09/21 04:48 Temperature -Last 24 Hours Temperature 99.3 F Temperature 98.5 F Temperature 98.8 F - Labs CBC & Chem 7: 05/09/21 07:34 05/09/21 07:34 Labs: Abnormal lab results 05/08/21 05/08/21 05/08/21 Range/Units 12:25 12:25 18:35 RBC 2.42 L (3.65-5.03) M/mm3 Hgb 6.6 L (10.1-14.3) gm/dl Hct 20.1 L (30.3-42.9) % MCH 27 L (28-32) pg RDW 15.3 H (13.2-15.2) % Plt Count 452 H (140-440) K/mm3 BUN 27 H (7-17) mg/dL Glucose 216 H (65-100) mg/dL POC Glucose 195 H (70-105) mg/dL Calcium 7.9 L (8.4-10.2) mg/dL Crossmatch 05/08/21 05/09/21 05/09/21 Range/Units 23:45 01:39 02:57 RBC (3.65-5.03) M/mm3 Hgb 6.6 L (10.1-14.3) gm/dl Hct 20.7 L (30.3-42.9) % MCH (28-32) pg RDW (13.2-15.2) % Plt Count (140-440) K/mm3 BUN (7-17) mg/dL Glucose (65-100) mg/dL POC Glucose 286 H (70-105) mg/dL Calcium (8.4-10.2) mg/dL Crossmatch See Detail 05/09/21 05/09/21 05/09/21 Range/Units 04:51 07:34 07:34 RBC 2.46 L (3.65-5.03) M/mm3 Hgb 6.3 L (10.1-14.3) gm/dl Hct 20.6 L (30.3-42.9) % MCH 26 L (28-32) pg RDW 15.5 H (13.2-15.2) % Plt Count 505 H (140-440) K/mm3 BUN 24 H (7-17) mg/dL Glucose 307 H (65-100) mg/dL POC Glucose 266 H (70-105) mg/dL Calcium 7.7 L (8.4-10.2) mg/dL Crossmatch
[2021-05-09] MEDS: SENNOSIDES 8.6 MG TAB PO SCH (21:26)
[2021-05-10] MEDS: INSULIN LISPRO 100 UNIT/ML SUB-Q SCH ×5 (00:33→23:48)
[2021-05-10] MEDS: FREE WATER PO SCH ×7 (00:34→23:34)
[2021-05-10] MEDS: HYDROmorphone 1 MG/1 ML INJ IV PRN (00:44)
--- NOTE | 2021-05-10 07:51 | Progress Note ---
Assessment and Plan Assessment and Plan Assessment and plan: This is a 51-year-old female with DM, noncompliance, obesity, arthritis and right knee surgery admitted for DKA, oropharyngeal dysphagia on tube feeding Speech therapist following, patient has septic arthritis and severe sepsis on long-term antibiotics Rocephin total 6 weeks., Anemia with 6.8 hemoglobin, received 1 unit PRBC yesterday, this morning hemoglobin 6.8, will recheck Hb and transfuse additional PRBC if needed -Anemia; Hb 6.8-6.9 Received 1 unit PRBC yesterday 05/05/2021 This morning Hb 6.9, transfuse additional 1 unit PRBC today Check stool for occult blood, monitor H&H --Oropharyngeal dysphagia; On tube feeding, Speech therapy following start oral nutrition when speech therapist clears --Septic arthritis; knee; Ortho is planning knee/synovial debridement 04/30/2021;s/p arthrocentesis 05/03/2021 s/p Incision and drainage followed by arthroscopic exam of the right knee Continue antibiotics per ID total 6 weeks -- Sepsis, group B Streptococcus bacteremia, h/o right septic arthritis -Infectious disease consulted, appreciate recommendations -ABX therapy per ID: Ceftriaxone 2 g every 24 hours -Right knee x-ray shows large joint effusion s/p arthrocentesis Positive synovial fluid cultures, ID recommended total 6 weeks of Rocephin --Acute metabolic encephalopathy (improved significantly) Patient is more alert and awake, supportive care -Echocardiogram shows mildly dilated right heart chamber, mild to moderate TR, moderate pulmonary hypertension, RVSP 50-55, LVEF 45-50 --Respiratory: Acute hypoxic respiratory failure Nasal cannula oxygen, intermittent BiPAP Home O2 evaluation --Severe protein calorie malnutrition --Hypoalbuminemia, albumin 1.7 Dietitian/pancake professional following Continue tube feeding, nutrition supplements Supportive care -- Hypernatremia (resolved) Closely monitor electrolytes --Leukocytosis/trending down Secondary to sepsis, continue antibiotics and supportive care Closely monitor --S/p DKA, h/o uncontrolled DM/present on admission -Hemoglobin A1c 18.3 Blood sugars moderate control -Avoid hypoglycemia Accu-Chek sliding scale coverage tube feeding Glucerna --DVT prophylaxis Subcu Lovenox --Full CODE STATUS Will closely monitor the patient and adjust the management as needed Plan of care reviewed with the patient and her nurse Real Estate Site Analyst recommendations noted and appreciated Subjective Date of service: 05/09/21 Principal diagnosis: HAGMA; DKA; AMS; Obesity; Osteoarthritis; Hypercalcemia Interval history: Brief history and daily hospital course This is a 51-year-old female with DM, OA, medication noncompliance, obesity who presented to emergency department on 04/23 with complaints of weakness, elevated blood glucose levels, nausea, polydipsia, polyuria and diminished oral intake over the past week with worsening symptoms over the past 2 days. Patient acknowledges noncompliance with oral antihyperglycemic therapy. Patient was seen and evaluated in the emergency department and found to have lab work consistent with diabetic ketoacidosis, metabolic encephalopathy, metabolic acidosis and volume depletion. Patient was admitted to the hospital service to the ICU initiated DKA protocol with CCM consult. 04/24/21- Patient remains on DKA protocol. Still very lethargic this am, following simple commands. Rt. knee wound and swelling noted, and nursing staff also reported thick, white vaginal discharge. C/f sepsis, blood culture ordered, this am UA noted. Will start patient on PO difflucan for possible yeast infection, pending culture data. Anion GAP is still 18 this am, will continue DKA protocol for now. Continue to monitor electrolytes, serial BMP ordered. 04/25/21- Patient appears to be in distress this am, now on 3L NC. Lactic acidosis worsen overnight, X1L LR bolus adminstered. Ordered placed for stat ABGs. Blood culture growing GPC 3/4 bottles, patient remains afebrile with no leukocytosis. IV abx was escalated, ID consulted. Ortho consult is still pending, order placed for XR of the Rt. knee. Given patient worsen condition and high anio, gap, will continue insulin gtt for now. Low K and mg was repleted. Continue serial BMP,mg, and phosp 04/26/21- Patient appears more alert and awake this am, talkative, and following commands. Remains on DKA protocol, gap is closedX2, will transition patient to SSI and basal insulin and initiate enteral nutrition. Patient remains afebrile overnight, continue IV Abx per ID. 04/27/21- TASHA overnight. Patient mentation continue to improve. Worsening hyperglycemia, patient is tolerating TF. 70/30 added BID and SSI was adjusted to high dose Q4hrs. D/W CCM patient is stable for transfer to [facility] 04/28/21- Patient continue to improve. Remains drowsy this am, however, easily arousable. Now on 4L NC, still requiring Q4hrs NT suction due to increased secretions and weak cough. Continue to wean O2 supplement as tolerated, F/U CXR in the am. Continue IV Abx per ID. 04/29: Patient is awake and alert with strong cough and able to clear own airway. Ortho consult for right knee aspiration pending. 04/30: No acute events reported overnight, patient will be transferred to the floor. MR of right knee ordered. 05/01; patient had arthrocentesis 05/02; ID recommended total 6 weeks of Rocephin, case management to assist with antibiotics 05/02; patient is febrile, sepsis and positive cultures, currently on Rocephin, ID following 05/03; patient remains on tube feeding, speech therapist has not cleared for oral nutrition, aspiration risk Septic arthritis awaiting synovial debridement knee joint 05/04; blood sugars are uncontrolled Lantus insulin was stopped due to surgical procedure yesterday, Resumed Novolin 70/30, closely monitor and adjust the dose as needed 05/05; patient received 1 unit of PRBC yesterday, a.m. hemoglobin remains 6.8 after transfusion, recheck H&H, transfuse additional PRBC Patient remains on tube feedings, speech therapy following, on long-term antibio tics for her septic knee total 6 weeks 05/06/2021 Patient remains on tube feedings Speech therapy 6 weeks of antibiotics for septic arthritis If patient can swallow and tube feedings are discontinued--- patient can have IV antibiotics as outpatient Not ready for discharge 05/07: Patient seen and examined, remains quit ill, NG tube still in place hemoglobin is still 6.9 despite second unit transfusion done. Hard sure where this is coming from unsure why the patient is not able to eat. Will obtain MRI of the head to further evaluate and also obtain stool for occult blood to further elicit. In the meantime this is a painless delay in discharge and once that is rectified placement is already being pursued by case management. Dressing in the knee is in place. 05/08/20[address] in [address] 05/09/2021 NG tube still in place Objective - Constitutional Vitals: Vital Signs - 12hr 05/09/21 05/09/21 05/09/21 21:36 21:54 22:00 Temperature 98.5 F Pulse Rate 107 H Respiratory 16 20 Rate Respiratory 18 Rate [Right Knee] Blood Pressure 141/73 O2 Sat by Pulse 93 90 98 Oximetry 05/10/21 05/10/21 05/10/21 00:44 01:14 04:21 Temperature 99.5 F Pulse Rate 108 H Respiratory 18 17 16 Rate Respiratory Rate [Right Knee] Blood Pressure 142/73 O2 Sat by Pulse 92 Oximetry General appearance: Present: no acute distress, well-nourished - EENT Eyes: PERRL, EOM intact ENT: hearing intact, clear oral mucosa Ears: bilateral: normal - Neck Neck: supple, normal ROM - Respiratory Respiratory effort: normal Respiratory: bilateral: CTA - Breasts Breasts: normal - Cardiovascular Heart rate: 78 Rhythm: regular Heart Sounds: Present: S1 & S2. Absent: gallop, rub Extremities: pulses intact, No edema, normal color, Full ROM - Gastrointestinal General gastrointestinal: Present: soft, non-tender, non-distended, normal bowel sounds - Genitourinary Female genitourinary: normal - Integumentary Integumentary: clear, warm, dry - Musculoskeletal Musculoskeletal: 1, strength equal bilaterally - Neurologic Neurologic: moves all extremities - Psychiatric Psychiatric: memory intact, appropriate mood/affect, intact judgment & insight - Labs CBC & Chem 7: 05/11/21 Unknown 05/09/21 07:34 Labs: Abnormal lab results 05/09/21 05/09/21 05/09/21 Range/Units 02:57 07:34 07:34 RBC 2.46 L (3.65-5.03) M/mm3 Hgb 6.3 L (10.1-14.3) gm/dl Hct 20.6 L (30.3-42.9) % MCH 26 L (28-32) pg RDW 15.5 H (13.2-15.2) % Plt Count 505 H (140-440) K/mm3 BUN 24 H (7-17) mg/dL Glucose 307 H (65-100) mg/dL POC Glucose (70-105) mg/dL Calcium 7.7 L (8.4-10.2) mg/dL Crossmatch See Detail 12/23/21 12/23/21 12/24/21 Range/Units 12:20 16:01 05:34 RBC (3.65-5.03) M/mm3 Hgb (10.1-14.3) gm/dl Hct (30.3-42.9) % MCH (28-32) pg RDW (13.2-15.2) % Plt Count (140-440) K/mm3 BUN (7-17) mg/dL Glucose (65-100) mg/dL POC Glucose 249 H 166 H 203 H (70-105) mg/dL Calcium (8.4-10.2) mg/dL Crossmatch HEART Score - HEART Score Troponin: Troponin T < 0.010 ng/mL (0.00-0.029) 04/23/21 10:33
[2021-05-10] MEDS: MORPHINE 2 MG/1 ML INJ IV PRN (07:58)
[2021-05-10] MEDS: METOCLOPRAMIDE 10 MG/10 ML ORAL LIQD FEEDTUBE SCH ×4 (08:05→21:12)
[2021-05-10] MEDS: INSULIN NPH/REGULAR 70/30 INJ SUB-Q SCH ×2 (08:05→17:22)
[2021-05-10 08:16] LABS: Hematocrit 21.8 % (30.3-42.9); Hemoglobin 6.8 gm/dl (10.1-14.3); Mean Corpuscular HGB Conc 31 % (30-34); Mean Corpuscular Volume 83 fl (79-97); Platelet Count 489 K/mm3 (140-440); Red Blood Count 2.62 M/mm3 (3.65-5.03); Red Cell Distribution Width 15.6 % (13.2-15.2)
--- NOTE | 2021-05-10 12:24 | XRay Report ---
ABDOMEN 1 VIEW(S) 05/10/2021 11:19 AM INDICATION / CLINICAL INFORMATION: verify NGT for feeding. COMPARISON: 04/24/2021 FINDINGS: The tip of an esophagogastric tube projects over the body of the stomach in expected position. Signer Name: Andres Pierre MD Signed: 05/10/2021 12:20 PM Workstation Name: [id number]
[2021-05-10] MEDS: FAMOTIDINE 20 MG TAB FEEDTUBE SCH (13:57)
[2021-05-10] MEDS: oxyCODONE /ACETAMINOPHEN 5-325MG TAB PO PRN (17:23)
--- NOTE | 2021-05-10 17:34 | Progress Note ---
Assessment and Plan Acute metabolic acidosis Diabetic ketoacidosis Acute toxic metabolic encephalopathy Obesity Osteoarthritis Hypercalcemia - PRBC transfusions for serum Hb < 7.0 - Anemia w/up / G.I. evaluation - continue care as below otherwise; - prn NT suction at this point - continue aspiration precautions (HOB > 40 degrees) - continue accuchecks with glycemic control per SSI for target blood glucose of < 80 mg/dL; avoid hypoglycemia - antiinfective's per ID team recommendations (Unasyn) - wean supplemental oxygen for target O2 sat's > 90% acutely - prn bronchodilators with pulmonary hygiene per RT - avoid nephrotoxins, renally dose all medications - avoid benzodiazepine's, reduce the possibility of delirium - prn analgesia per pain score - Maintenance of sleep-wake cycle, avoid delirium - G.I. & VTE prophylaxis - PT/OT/ROM exercises - continue mobility protocols for pressure ulcer prophylaxis - Monitor hemodynamics closely - continue other care per attending / other consultants - discharge planning ongoing concurrently .... Re-evaluate in am & prn Subjective Date of service: 05/10/21 Principal diagnosis: HAGMA; DKA; AMS; Obesity; Osteoarthritis; Hypercalcemia Interval history: Patient is seen today for: Acute metabolic acidosis; Diabetic ketoacidosis; Acute toxic metabolic encephalopathy; Obesity; Osteoarthritis; Hypercalcemia Seen and examined at bedside; 24hour events reviewed; nursing and respiratory care staff consulted; no adverse overnight events reported to me; resting peacefully in bed; remains on supplemental oxygen; minimal prn analgesia needs; No N/V/F/C Objective Constitutional: no acute distress, alert Eyes: non-icteric ENT: oropharynx moist Neck: supple, no lymphadenopathy, no JVD Effort: normal Ascultation: Bilateral: clear, diminished breath sounds Percussion: Bilateral: not dull Cardiovascular: regular rate and rhythm, other (S1,S2) Gastrointestinal: hypoactive bowel sounds, soft, non-tender, non-distended (protuberant) Integumentary: rash (perineal) Extremities: no cyanosis, no edema, pulses normal, no ischemia or petechiae, other (Right knee surgery.) Neurologic: normal mental status, non-focal exam, pupils equal and round, other Psychiatric: mood appropriate, affect normal CBC and BMP: 05/11/21 Unknown 05/09/21 07:34 ABG, PT/INR, D-dimer: ABG ABG pH 7.426 pH Units (7.350-7.450) 04/25/21 11:20 ABG pCO2 25.3 mm Hg 04/25/21 11:20 ABG pO2 73.2 mm Hg (80.0-90.0) L 04/25/21 11:20 ABG O2 Saturation 96.9 % (95.0-99.0) 04/25/21 11:20 Abnormal lab findings: Abnormal Labs 04/23/21 04/23/21 04/23/21 10:33 10:33 10:33 WBC RBC Hgb Hct MCV MCH 26 L RDW Plt Count Lymph % (Auto) Seg Neutrophils % Seg Neuts % (Manual) Lymphocytes % (Manual) 7.0 L Nucleated RBC % 2.0 H Seg Neutrophils # Lymphocytes # (Manual) 0.5 L ABG pO2 ABG HCO3 ABG Base Excess ABG Hemoglobin VBG pH 7.180 L* Oxyhemoglobin Sodium 122 L Potassium 3.0 L Chloride 84.8 L Carbon Dioxide 6 L* BUN 49 H Creatinine 1.4 H Glucose 775 H* POC Glucose Hemoglobin A1c Lactic Acid Calcium 12.2 H* Phosphorus Magnesium Alkaline Phosphatase 130 H C-Reactive Protein Total Protein Albumin 2.9 L Vancomycin Trough Crossmatch 04/23/21 04/23/21 04/23/21 10:40 12:44 14:01 WBC RBC Hgb Hct MCV MCH RDW Plt Count Lymph % (Auto) Seg Neutrophils % Seg Neuts % (Manual) Lymphocytes % (Manual) Nucleated RBC % Seg Neutrophils # Lymphocytes # (Manual) ABG pO2 ABG HCO3 ABG Base Excess ABG Hemoglobin VBG pH Oxyhemoglobin Sodium Potassium Chloride Carbon Dioxide BUN Creatinine Glucose POC Glucose > 600 H 550 H Hemoglobin A1c Lactic Acid Calcium Phosphorus 1.50 L Magnesium Alkaline Phosphatase C-Reactive Protein Total Protein Albumin Vancomycin Trough Crossmatch 04/23/21 04/23/21 04/23/21 14:01 14:04 14:56 WBC RBC Hgb Hct MCV MCH RDW Plt Count Lymph % (Auto) Seg Neutrophils % Seg Neuts % (Manual) Lymphocytes % (Manual) Nucleated RBC % Seg Neutrophils # Lymphocytes # (Manual) ABG pO2 ABG HCO3 ABG Base Excess ABG Hemoglobin VBG pH Oxyhemoglobin Sodium 125 L Potassium 3.0 L Chloride 89.2 L Carbon Dioxide 6 L* BUN 45 H Creatinine 1.3 H Glucose 594 H* POC Glucose 518 H 425 H Hemoglobin A1c Lactic Acid Calcium 10.9 H Phosphorus Magnesium Alkaline Phosphatase C-Reactive Protein Total Protein Albumin Vancomycin Trough Crossmatch 04/23/21 04/23/21 04/23/21 15:43 15:48 17:21 WBC RBC Hgb Hct MCV MCH RDW Plt Count Lymph % (Auto) Seg Neutrophils % Seg Neuts % (Manual) Lymphocytes % (Manual) Nucleated RBC % Seg Neutrophils # Lymphocytes # (Manual) ABG pO2 ABG HCO3 ABG Base Excess ABG Hemoglobin VBG pH Oxyhemoglobin Sodium 131 L Potassium 2.9 L* Chloride Carbon Dioxide 8 L* BUN 39 H Creatinine Glucose 434 H POC Glucose 410 H 407 H Hemoglobin A1c Lactic Acid Calcium 10.3 H Phosphorus Magnesium Alkaline Phosphatase C-Reactive Protein Total Protein Albumin Vancomycin Trough Crossmatch 04/23/21 04/23/21 04/23/21 18:07 19:13 19:54 WBC RBC Hgb Hct MCV MCH RDW Plt Count Lymph % (Auto) Seg Neutrophils % Seg Neuts % (Manual) Lymphocytes % (Manual) Nucleated RBC % Seg Neutrophils # Lymphocytes # (Manual) ABG pO2 ABG HCO3 ABG Base Excess ABG Hemoglobin VBG pH Oxyhemoglobin Sodium 131 L Potassium 3.1 L Chloride 95.9 L Carbon Dioxide 7 L* BUN 39 H Creatinine Glucose 391 H POC Glucose 428 H 350 H Hemoglobin A1c Lactic Acid Calcium 11.2 H Phosphorus Magnesium Alkaline Phosphatase C-Reactive Protein Total Protein Albumin Vancomycin Trough Crossmatch 04/23/21 04/23/21 04/23/21 19:54 20:12 20:59 WBC RBC Hgb Hct MCV MCH RDW Plt Count Lymph % (Auto) Seg Neutrophils % Seg Neuts % (Manual) Lymphocytes % (Manual) Nucleated RBC % Seg Neutrophils # Lymphocytes # (Manual) ABG pO2 ABG HCO3 ABG Base Excess ABG Hemoglobin VBG pH Oxyhemoglobin Sodium Potassium Chloride Carbon Dioxide BUN Creatinine Glucose POC Glucose 365 H 286 H Hemoglobin A1c Lactic Acid Calcium Phosphorus 1.10 L D Magnesium Alkaline Phosphatase C-Reactive Protein Total Protein Albumin Vancomycin Trough Crossmatch 04/23/21 04/23/21 04/23/21 22:05 22:23 22:59 WBC RBC Hgb Hct MCV MCH RDW Plt Count Lymph % (Auto) Seg Neutrophils % Seg Neuts % (Manual) Lymphocytes % (Manual) Nucleated RBC % Seg Neutrophils # Lymphocytes # (Manual) ABG pO2 ABG HCO3 ABG Base Excess ABG Hemoglobin VBG pH Oxyhemoglobin Sodium 135 L Potassium 3.2 L Chloride Carbon Dioxide 10 L BUN 35 H Creatinine Glucose 300 H POC Glucose 257 H 238 H Hemoglobin A1c Lactic Acid Calcium 11.6 H Phosphorus Magnesium Alkaline Phosphatase C-Reactive Protein Total Protein Albumin Vancomycin Trough Crossmatch 04/23/21 04/24/21 04/24/21 23:57 00:10 00:56 WBC RBC Hgb Hct MCV MCH RDW Plt Count Lymph % (Auto) Seg Neutrophils % Seg Neuts % (Manual) Lymphocytes % (Manual) Nucleated RBC % Seg Neutrophils # Lymphocytes # (Manual) ABG pO2 ABG HCO3 ABG Base Excess ABG Hemoglobin VBG pH Oxyhemoglobin Sodium Potassium 3.2 L Chloride Carbon Dioxide 13 L BUN 33 H Creatinine Glucose 267 H POC Glucose 223 H 254 H Hemoglobin A1c Lactic Acid Calcium 11.2 H Phosphorus 1.20 L Magnesium Alkaline Phosphatase C-Reactive Protein Total Protein Albumin Vancomycin Trough Crossmatch 04/24/21 04/24/21 04/24/21 01:58 02:58 03:57 WBC RBC Hgb Hct MCV MCH RDW Plt Count Lymph % (Auto) Seg Neutrophils % Seg Neuts % (Manual) Lymphocytes % (Manual) Nucleated RBC % Seg Neutrophils # Lymphocytes # (Manual) ABG pO2 ABG HCO3 ABG Base Excess ABG Hemoglobin VBG pH Oxyhemoglobin Sodium Potassium Chloride Carbon Dioxide BUN Creatinine Glucose POC Glucose 264 H 251 H 200 H Hemoglobin A1c Lactic Acid Calcium Phosphorus Magnesium Alkaline Phosphatase C-Reactive Protein Total Protein Albumin Vancomycin Trough Crossmatch 04/24/21 04/24/21 04/24/21 04:16 04:16 04:16 WBC RBC Hgb Hct MCV MCH 26 L RDW Plt Count Lymph % (Auto) Seg Neutrophils % Seg Neuts % (Manual) Lymphocytes % (Manual) Nucleated RBC % Seg Neutrophils # Lymphocytes # (Manual) ABG pO2 ABG HCO3 ABG Base Excess ABG Hemoglobin VBG pH Oxyhemoglobin Sodium Potassium Chloride 108.0 H Carbon Dioxide 13 L BUN 31 H Creatinine Glucose 243 H POC Glucose Hemoglobin A1c 18.3 H Lactic Acid Calcium 10.9 H Phosphorus 1.80 L D Magnesium Alkaline Phosphatase C-Reactive Protein Total Protein Albumin Vancomycin Trough Crossmatch 04/24/21 04/24/21 04/24/21 04:59 05:53 06:51 WBC RBC Hgb Hct MCV MCH RDW Plt Count Lymph % (Auto) Seg Neutrophils % Seg Neuts % (Manual) Lymphocytes % (Manual) Nucleated RBC % Seg Neutrophils # Lymphocytes # (Manual) ABG pO2 ABG HCO3 ABG Base Excess ABG Hemoglobin VBG pH Oxyhemoglobin Sodium Potassium Chloride Carbon Dioxide BUN Creatinine Glucose POC Glucose 208 H 213 H 161 H Hemoglobin A1c Lactic Acid Calcium Phosphorus Magnesium Alkaline Phosphatase C-Reactive Protein Total Protein Albumin Vancomycin Trough Crossmatch 04/24/21 04/24/21 04/24/21 07:58 09:21 10:06 WBC RBC Hgb Hct MCV MCH RDW Plt Count Lymph % (Auto) Seg Neutrophils % Seg Neuts % (Manual) Lymphocytes % (Manual) Nucleated RBC % Seg Neutrophils # Lymphocytes # (Manual) ABG pO2 ABG HCO3 ABG Base Excess ABG Hemoglobin VBG pH Oxyhemoglobin Sodium Potassium Chloride Carbon Dioxide BUN Creatinine Glucose POC Glucose 149 H 178 H 164 H Hemoglobin A1c Lactic Acid Calcium Phosphorus Magnesium Alkaline Phosphatase C-Reactive Protein Total Protein Albumin Vancomycin Trough Crossmatch 04/24/21 04/24/21 04/24/21 11:03 12:07 12:14 WBC RBC Hgb Hct MCV MCH RDW Plt Count Lymph % (Auto) Seg Neutrophils % Seg Neuts % (Manual) Lymphocytes % (Manual) Nucleated RBC % Seg Neutrophils # Lymphocytes # (Manual) ABG pO2 ABG HCO3 ABG Base Excess ABG Hemoglobin VBG pH Oxyhemoglobin Sodium Potassium 3.2 L Chloride 108.7 H Carbon Dioxide 16 L BUN 24 H Creatinine Glucose 160 H POC Glucose 157 H 142 H Hemoglobin A1c Lactic Acid Calcium 10.5 H Phosphorus 0.70 L* D Magnesium Alkaline Phosphatase C-Reactive Protein Total Protein Albumin Vancomycin Trough Crossmatch 04/24/21 04/24/21 04/24/21 12:14 13:02 14:00 WBC RBC Hgb Hct MCV MCH RDW Plt Count Lymph % (Auto) Seg Neutrophils % Seg Neuts % (Manual) Lymphocytes % (Manual) Nucleated RBC % Seg Neutrophils # Lymphocytes # (Manual) ABG pO2 ABG HCO3 ABG Base Excess ABG Hemoglobin VBG pH Oxyhemoglobin Sodium Potassium Chloride Carbon Dioxide BUN Creatinine Glucose POC Glucose 138 H 150 H Hemoglobin A1c Lactic Acid 2.50 H* Calcium Phosphorus Magnesium Alkaline Phosphatase C-Reactive Protein Total Protein Albumin Vancomycin Trough Crossmatch 04/24/21 04/24/21 04/24/21 15:14 16:07 17:11 WBC RBC Hgb Hct MCV MCH RDW Plt Count Lymph % (Auto) Seg Neutrophils % Seg Neuts % (Manual) Lymphocytes % (Manual) Nucleated RBC % Seg Neutrophils # Lymphocytes # (Manual) ABG pO2 ABG HCO3 ABG Base Excess ABG Hemoglobin VBG pH Oxyhemoglobin Sodium Potassium Chloride Carbon Dioxide BUN Creatinine Glucose POC Glucose 145 H 148 H 156 H Hemoglobin A1c Lactic Acid Calcium Phosphorus Magnesium Alkaline Phosphatase C-Reactive Protein Total Protein Albumin Vancomycin Trough Crossmatch 04/24/21 04/24/21 04/24/21 18:12 18:24 19:55 WBC RBC Hgb Hct MCV MCH RDW Plt Count Lymph % (Auto) Seg Neutrophils % Seg Neuts % (Manual) Lymphocytes % (Manual) Nucleated RBC % Seg Neutrophils # Lymphocytes # (Manual) ABG pO2 ABG HCO3 ABG Base Excess ABG Hemoglobin VBG pH Oxyhemoglobin Sodium Potassium Chloride 109.2 H Carbon Dioxide 15 L BUN 22 H Creatinine Glucose 159 H POC Glucose 153 H 176 H Hemoglobin A1c Lactic Acid Calcium Phosphorus 1.80 L D Magnesium Alkaline Phosphatase C-Reactive Protein 24.30 H Total Protein Albumin Vancomycin Trough Crossmatch 04/24/21 04/24/21 04/24/21 20:55 22:04 23:02 WBC RBC Hgb Hct MCV MCH RDW Plt Count Lymph % (Auto) Seg Neutrophils % Seg Neuts % (Manual) Lymphocytes % (Manual) Nucleated RBC % Seg Neutrophils # Lymphocytes # (Manual) ABG pO2 ABG HCO3 ABG Base Excess ABG Hemoglobin VBG pH Oxyhemoglobin Sodium Potassium Chloride Carbon Dioxide BUN Creatinine Glucose POC Glucose 146 H 169 H Hemoglobin A1c Lactic Acid 3.10 H* Calcium Phosphorus Magnesium Alkaline Phosphatase C-Reactive Protein Total Protein Albumin Vancomycin Trough Crossmatch 04/24/21 04/25/21 04/25/21 23:13 00:05 01:28 WBC RBC Hgb Hct MCV MCH RDW Plt Count Lymph % (Auto) Seg Neutrophils % Seg Neuts % (Manual) Lymphocytes % (Manual) Nucleated RBC % Seg Neutrophils # Lymphocytes # (Manual) ABG pO2 ABG HCO3 ABG Base Excess ABG Hemoglobin VBG pH Oxyhemoglobin Sodium Potassium Chloride Carbon Dioxide BUN Creatinine Glucose POC Glucose 144 H 150 H 142 H Hemoglobin A1c Lactic Acid Calcium Phosphorus Magnesium Alkaline Phosphatase C-Reactive Protein Total Protein Albumin Vancomycin Trough Crossmatch 04/25/21 04/25/21 04/25/21 02:03 03:07 04:17 WBC RBC Hgb Hct MCV MCH RDW Plt Count Lymph % (Auto) Seg Neutrophils % Seg Neuts % (Manual) Lymphocytes % (Manual) Nucleated RBC % Seg Neutrophils # Lymphocytes # (Manual) ABG pO2 ABG HCO3 ABG Base Excess ABG Hemoglobin VBG pH Oxyhemoglobin Sodium Potassium Chloride Carbon Dioxide BUN Creatinine Glucose POC Glucose 148 H 161 H 158 H Hemoglobin A1c Lactic Acid Calcium Phosphorus Magnesium Alkaline Phosphatase C-Reactive Protein Total Protein Albumin Vancomycin Trough Crossmatch 04/25/21 04/25/21 04/25/21 05:48 06:52 07:58 WBC RBC Hgb Hct MCV MCH RDW Plt Count Lymph % (Auto) Seg Neutrophils % Seg Neuts % (Manual) Lymphocytes % (Manual) Nucleated RBC % Seg Neutrophils # Lymphocytes # (Manual) ABG pO2 ABG HCO3 ABG Base Excess ABG Hemoglobin VBG pH Oxyhemoglobin Sodium Potassium Chloride Carbon Dioxide BUN Creatinine Glucose POC Glucose 136 H 137 H 143 H Hemoglobin A1c Lactic Acid Calcium Phosphorus Magnesium Alkaline Phosphatase C-Reactive Protein Total Protein Albumin Vancomycin Trough Crossmatch 04/25/21 04/25/21 04/25/21 08:10 08:10 08:10 WBC RBC Hgb 9.5 L Hct 28.8 L MCV MCH 26 L RDW Plt Count Lymph % (Auto) Seg Neutrophils % Seg Neuts % (Manual) 33.0 L Lymphocytes % (Manual) Nucleated RBC % Seg Neutrophils # Lymphocytes # (Manual) 1.1 L ABG pO2 ABG HCO3 ABG Base Excess ABG Hemoglobin VBG pH Oxyhemoglobin Sodium Potassium 3.3 L Chloride 109.0 H Carbon Dioxide 16 L BUN 23 H Creatinine Glucose 151 H POC Glucose Hemoglobin A1c Lactic Acid 2.10 H* Calcium Phosphorus 2.20 L D Magnesium 1.60 L Alkaline Phosphatase C-Reactive Protein Total Protein Albumin Vancomycin Trough Crossmatch 04/25/21 04/25/21 04/25/21 08:53 09:59 11:20 WBC RBC Hgb Hct MCV MCH RDW Plt Count Lymph % (Auto) Seg Neutrophils % Seg Neuts % (Manual) Lymphocytes % (Manual) Nucleated RBC % Seg Neutrophils # Lymphocytes # (Manual) ABG pO2 ABG HCO3 ABG Base Excess ABG Hemoglobin VBG pH Oxyhemoglobin Sodium Potassium Chloride Carbon Dioxide BUN Creatinine Glucose POC Glucose 132 H 141 H 141 H Hemoglobin A1c Lactic Acid Calcium Phosphorus Magnesium Alkaline Phosphatase C-Reactive Protein Total Protein Albumin Vancomycin Trough Crossmatch 04/25/21 04/25/21 04/25/21 11:20 12:04 12:26 WBC RBC Hgb Hct MCV MCH RDW Plt Count Lymph % (Auto) Seg Neutrophils % Seg Neuts % (Manual) Lymphocytes % (Manual) Nucleated RBC % Seg Neutrophils # Lymphocytes # (Manual) ABG pO2 73.2 L ABG HCO3 16.2 L ABG Base Excess -7.1 L ABG Hemoglobin 8.7 L VBG pH Oxyhemoglobin 94.8 L Sodium Potassium 3.4 L Chloride 109.5 H Carbon Dioxide 14 L BUN 21 H Creatinine Glucose 155 H POC Glucose 129 H Hemoglobin A1c Lactic Acid Calcium Phosphorus 1.90 L Magnesium 1.60 L Alkaline Phosphatase C-Reactive Protein Total Protein Albumin Vancomycin Trough Crossmatch 04/25/21 04/25/21 04/25/21 13:04 13:58 15:09 WBC RBC Hgb Hct MCV MCH RDW Plt Count Lymph % (Auto) Seg Neutrophils % Seg Neuts % (Manual) Lymphocytes % (Manual) Nucleated RBC % Seg Neutrophils # Lymphocytes # (Manual) ABG pO2 ABG HCO3 ABG Base Excess ABG Hemoglobin VBG pH Oxyhemoglobin Sodium Potassium Chloride Carbon Dioxide BUN Creatinine Glucose POC Glucose 135 H 140 H 134 H Hemoglobin A1c Lactic Acid Calcium Phosphorus Magnesium Alkaline Phosphatase C-Reactive Protein Total Protein Albumin Vancomycin Trough Crossmatch 04/25/21 04/25/21 04/25/21 16:00 18:56 18:58 WBC RBC Hgb Hct MCV MCH RDW Plt Count Lymph % (Auto) Seg Neutrophils % Seg Neuts % (Manual) Lymphocytes % (Manual) Nucleated RBC % Seg Neutrophils # Lymphocytes # (Manual) ABG pO2 ABG HCO3 ABG Base Excess ABG Hemoglobin VBG pH Oxyhemoglobin Sodium Potassium Chloride Carbon Dioxide BUN Creatinine Glucose POC Glucose 135 H 170 H Hemoglobin A1c Lactic Acid 2.10 H* Calcium Phosphorus Magnesium Alkaline Phosphatase C-Reactive Protein Total Protein Albumin Vancomycin Trough Crossmatch 04/25/21 04/25/21 04/25/21 18:58 19:52 20:53 WBC RBC Hgb Hct MCV MCH RDW Plt Count Lymph % (Auto) Seg Neutrophils % Seg Neuts % (Manual) Lymphocytes % (Manual) Nucleated RBC % Seg Neutrophils # Lymphocytes # (Manual) ABG pO2 ABG HCO3 ABG Base Excess ABG Hemoglobin VBG pH Oxyhemoglobin Sodium Potassium Chloride 110.1 H Carbon Dioxide 13 L BUN 23 H Creatinine Glucose 206 H POC Glucose 162 H 171 H Hemoglobin A1c Lactic Acid Calcium Phosphorus Magnesium 2.40 H Alkaline Phosphatase C-Reactive Protein Total Protein Albumin Vancomycin Trough Crossmatch 04/25/21 04/25/21 04/26/21 21:54 22:53 00:03 WBC RBC Hgb Hct MCV MCH RDW Plt Count Lymph % (Auto) Seg Neutrophils % Seg Neuts % (Manual) Lymphocytes % (Manual) Nucleated RBC % Seg Neutrophils # Lymphocytes # (Manual) ABG pO2 ABG HCO3 ABG Base Excess ABG Hemoglobin VBG pH Oxyhemoglobin Sodium Potassium Chloride Carbon Dioxide BUN Creatinine Glucose POC Glucose 139 H 140 H 129 H Hemoglobin A1c Lactic Acid Calcium Phosphorus Magnesium Alkaline Phosphatase C-Reactive Protein Total Protein Albumin Vancomycin Trough Crossmatch 04/26/21 04/26/21 04/26/21 00:38 01:00 01:56 WBC RBC Hgb Hct MCV MCH RDW Plt Count Lymph % (Auto) Seg Neutrophils % Seg Neuts % (Manual) Lymphocytes % (Manual) Nucleated RBC % Seg Neutrophils # Lymphocytes # (Manual) ABG pO2 ABG HCO3 ABG Base Excess ABG Hemoglobin VBG pH Oxyhemoglobin Sodium Potassium Chloride 112.6 H Carbon Dioxide 14 L BUN 22 H Creatinine Glucose 149 H POC Glucose 126 H 137 H Hemoglobin A1c Lactic Acid Calcium Phosphorus Magnesium 2.40 H Alkaline Phosphatase C-Reactive Protein Total Protein Albumin Vancomycin Trough Crossmatch 04/26/21 04/26/21 04/26/21 02:54 04:04 05:02 WBC RBC 3.44 L Hgb 8.9 L Hct 26.9 L MCV 78 L MCH 26 L RDW Plt Count Lymph % (Auto) Seg Neutrophils % Seg Neuts % (Manual) Lymphocytes % (Manual) Nucleated RBC % Seg Neutrophils # Lymphocytes # (Manual) ABG pO2 ABG HCO3 ABG Base Excess ABG Hemoglobin VBG pH Oxyhemoglobin Sodium Potassium Chloride Carbon Dioxide BUN Creatinine Glucose POC Glucose 132 H 130 H Hemoglobin A1c Lactic Acid Calcium Phosphorus Magnesium Alkaline Phosphatase C-Reactive Protein Total Protein Albumin Vancomycin Trough Crossmatch 04/26/21 04/26/21 04/26/21 05:02 05:03 06:06 WBC RBC Hgb Hct MCV MCH RDW Plt Count Lymph % (Auto) Seg Neutrophils % Seg Neuts % (Manual) Lymphocytes % (Manual) Nucleated RBC % Seg Neutrophils # Lymphocytes # (Manual) ABG pO2 ABG HCO3 ABG Base Excess ABG Hemoglobin VBG pH Oxyhemoglobin Sodium Potassium Chloride 114.8 H Carbon Dioxide 14 L BUN 22 H Creatinine Glucose 129 H POC Glucose 115 H 129 H Hemoglobin A1c Lactic Acid Calcium Phosphorus Magnesium Alkaline Phosphatase C-Reactive Protein Total Protein Albumin Vancomycin Trough Crossmatch 04/26/21 04/26/21 04/26/21 06:53 07:58 09:09 WBC RBC Hgb Hct MCV MCH RDW Plt Count Lymph % (Auto) Seg Neutrophils % Seg Neuts % (Manual) Lymphocytes % (Manual) Nucleated RBC % Seg Neutrophils # Lymphocytes # (Manual) ABG pO2 ABG HCO3 ABG Base Excess ABG Hemoglobin VBG pH Oxyhemoglobin Sodium Potassium Chloride Carbon Dioxide BUN Creatinine Glucose POC Glucose 121 H 124 H 125 H Hemoglobin A1c Lactic Acid Calcium Phosphorus Magnesium Alkaline Phosphatase C-Reactive Protein Total Protein Albumin Vancomycin Trough Crossmatch 04/26/21 04/26/21 04/26/21 10:05 10:52 12:00 WBC RBC Hgb Hct MCV MCH RDW Plt Count Lymph % (Auto) Seg Neutrophils % Seg Neuts % (Manual) Lymphocytes % (Manual) Nucleated RBC % Seg Neutrophils # Lymphocytes # (Manual) ABG pO2 ABG HCO3 ABG Base Excess ABG Hemoglobin VBG pH Oxyhemoglobin Sodium Potassium Chloride Carbon Dioxide BUN Creatinine Glucose POC Glucose 131 H 129 H 126 H Hemoglobin A1c Lactic Acid Calcium Phosphorus Magnesium Alkaline Phosphatase C-Reactive Protein Total Protein Albumin Vancomycin Trough Crossmatch 04/26/21 04/26/21 04/26/21 13:17 14:06 14:11 WBC RBC Hgb Hct MCV MCH RDW Plt Count Lymph % (Auto) Seg Neutrophils % Seg Neuts % (Manual) Lymphocytes % (Manual) Nucleated RBC % Seg Neutrophils # Lymphocytes # (Manual) ABG pO2 ABG HCO3 ABG Base Excess ABG Hemoglobin VBG pH Oxyhemoglobin Sodium Potassium 5.3 H D Chloride 112.2 H Carbon Dioxide 14 L BUN 22 H Creatinine Glucose 116 H POC Glucose 130 H 132 H Hemoglobin A1c Lactic Acid Calcium Phosphorus Magnesium 2.40 H Alkaline Phosphatase C-Reactive Protein Total Protein Albumin Vancomycin Trough Crossmatch 04/26/21 04/26/21 04/26/21 15:07 15:20 16:05 WBC RBC Hgb Hct MCV MCH RDW Plt Count Lymph % (Auto) Seg Neutrophils % Seg Neuts % (Manual) Lymphocytes % (Manual) Nucleated RBC % Seg Neutrophils # Lymphocytes # (Manual) ABG pO2 ABG HCO3 ABG Base Excess ABG Hemoglobin VBG pH Oxyhemoglobin Sodium Potassium Chloride 112.4 H Carbon Dioxide 13 L BUN 22 H Creatinine Glucose 143 H POC Glucose 130 H 156 H Hemoglobin A1c Lactic Acid Calcium Phosphorus Magnesium Alkaline Phosphatase C-Reactive Protein Total Protein Albumin Vancomycin Trough Crossmatch 04/26/21 04/26/21 04/27/21 17:55 19:27 00:02 WBC RBC Hgb Hct MCV MCH RDW Plt Count Lymph % (Auto) Seg Neutrophils % Seg Neuts % (Manual) Lymphocytes % (Manual) Nucleated RBC % Seg Neutrophils # Lymphocytes # (Manual) ABG pO2 ABG HCO3 ABG Base Excess ABG Hemoglobin VBG pH Oxyhemoglobin Sodium Potassium Chloride Carbon Dioxide BUN Creatinine Glucose POC Glucose 194 H 261 H Hemoglobin A1c Lactic Acid Calcium Phosphorus Magnesium Alkaline Phosphatase C-Reactive Protein Total Protein Albumin Vancomycin Trough 38.2 H Crossmatch 04/27/21 04/27/21 04/27/21 04:03 04:03 05:33 WBC RBC 3.20 L Hgb 8.1 L Hct 25.1 L MCV 78 L MCH 25 L RDW Plt Count Lymph % (Auto) Seg Neutrophils % Seg Neuts % (Manual) Lymphocytes % (Manual) Nucleated RBC % Seg Neutrophils # Lymphocytes # (Manual) ABG pO2 ABG HCO3 ABG Base Excess ABG Hemoglobin VBG pH Oxyhemoglobin Sodium Potassium Chloride 112.4 H Carbon Dioxide 12 L BUN 30 H Creatinine Glucose 330 H POC Glucose 311 H Hemoglobin A1c Lactic Acid Calcium Phosphorus Magnesium Alkaline Phosphatase C-Reactive Protein Total Protein Albumin Vancomycin Trough Crossmatch 04/27/21 04/27/21 04/27/21 09:51 13:15 16:43 WBC RBC Hgb Hct MCV MCH RDW Plt Count Lymph % (Auto) Seg Neutrophils % Seg Neuts % (Manual) Lymphocytes % (Manual) Nucleated RBC % Seg Neutrophils # Lymphocytes # (Manual) ABG pO2 ABG HCO3 ABG Base Excess ABG Hemoglobin VBG pH Oxyhemoglobin Sodium Potassium Chloride Carbon Dioxide BUN Creatinine Glucose POC Glucose 335 H 291 H 218 H Hemoglobin A1c Lactic Acid Calcium Phosphorus Magnesium Alkaline Phosphatase C-Reactive Protein Total Protein Albumin Vancomycin Trough Crossmatch 04/27/21 04/27/21 04/28/21 18:10 22:08 02:15 WBC RBC Hgb Hct MCV MCH RDW Plt Count Lymph % (Auto) Seg Neutrophils % Seg Neuts % (Manual) Lymphocytes % (Manual) Nucleated RBC % Seg Neutrophils # Lymphocytes # (Manual) ABG pO2 ABG HCO3 ABG Base Excess ABG Hemoglobin VBG pH Oxyhemoglobin Sodium Potassium Chloride Carbon Dioxide BUN Creatinine Glucose POC Glucose 177 H 136 H 152 H Hemoglobin A1c Lactic Acid Calcium Phosphorus Magnesium Alkaline Phosphatase C-Reactive Protein Total Protein Albumin Vancomycin Trough Crossmatch 04/28/21 04/28/21 04/28/21 04:41 04:41 06:03 WBC RBC 3.50 L Hgb 8.9 L Hct 27.3 L MCV 78 L MCH 26 L RDW Plt Count Lymph % (Auto) Seg Neutrophils % Seg Neuts % (Manual) Lymphocytes % (Manual) Nucleated RBC % Seg Neutrophils # Lymphocytes # (Manual) ABG pO2 ABG HCO3 ABG Base Excess ABG Hemoglobin VBG pH Oxyhemoglobin Sodium Potassium Chloride 113.5 H Carbon Dioxide 16 L BUN 37 H Creatinine Glucose 167 H POC Glucose 174 H Hemoglobin A1c Lactic Acid Calcium Phosphorus Magnesium Alkaline Phosphatase C-Reactive Protein Total Protein Albumin Vancomycin Trough Crossmatch 04/28/21 04/28/21 04/28/21 08:42 11:34 17:15 WBC RBC Hgb Hct MCV MCH RDW Plt Count Lymph % (Auto) Seg Neutrophils % Seg Neuts % (Manual) Lymphocytes % (Manual) Nucleated RBC % Seg Neutrophils # Lymphocytes # (Manual) ABG pO2 ABG HCO3 ABG Base Excess ABG Hemoglobin VBG pH Oxyhemoglobin Sodium Potassium Chloride Carbon Dioxide BUN Creatinine Glucose POC Glucose 212 H 228 H 236 H Hemoglobin A1c Lactic Acid Calcium Phosphorus Magnesium Alkaline Phosphatase C-Reactive Protein Total Protein Albumin Vancomycin Trough Crossmatch 04/28/21 04/29/21 04/29/21 21:58 01:55 04:00 WBC 11.7 H RBC 3.35 L Hgb 8.5 L Hct 26.4 L MCV MCH 25 L RDW Plt Count Lymph % (Auto) Seg Neutrophils % Seg Neuts % (Manual) Lymphocytes % (Manual) Nucleated RBC % Seg Neutrophils # Lymphocytes # (Manual) ABG pO2 ABG HCO3 ABG Base Excess ABG Hemoglobin VBG pH Oxyhemoglobin Sodium Potassium Chloride Carbon Dioxide BUN Creatinine Glucose POC Glucose 208 H 137 H Hemoglobin A1c Lactic Acid Calcium Phosphorus Magnesium Alkaline Phosphatase C-Reactive Protein Total Protein Albumin Vancomycin Trough Crossmatch 04/29/21 04/29/21 04/29/21 04:00 05:16 11:02 WBC RBC Hgb Hct MCV MCH RDW Plt Count Lymph % (Auto) Seg Neutrophils % Seg Neuts % (Manual) Lymphocytes % (Manual) Nucleated RBC % Seg Neutrophils # Lymphocytes # (Manual) ABG pO2 ABG HCO3 ABG Base Excess ABG Hemoglobin VBG pH Oxyhemoglobin Sodium 146 H Potassium Chloride 112.4 H Carbon Dioxide BUN 41 H Creatinine Glucose 115 H POC Glucose 114 H 144 H Hemoglobin A1c Lactic Acid Calcium Phosphorus Magnesium Alkaline Phosphatase C-Reactive Protein Total Protein Albumin Vancomycin Trough Crossmatch 04/30/21 04/30/21 04/30/21 00:23 04:41 04:41 WBC 14.4 H RBC 3.12 L Hgb 7.8 L Hct 24.7 L MCV MCH 25 L RDW Plt Count 138 L Lymph % (Auto) Seg Neutrophils % Seg Neuts % (Manual) Lymphocytes % (Manual) Nucleated RBC % Seg Neutrophils # Lymphocytes # (Manual) ABG pO2 ABG HCO3 ABG Base Excess ABG Hemoglobin VBG pH Oxyhemoglobin Sodium Potassium Chloride 108.0 H Carbon Dioxide BUN 42 H Creatinine Glucose 215 H POC Glucose 126 H Hemoglobin A1c Lactic Acid Calcium Phosphorus Magnesium Alkaline Phosphatase 171 H C-Reactive Protein Total Protein 6.1 L Albumin 1.4 L Vancomycin Trough Crossmatch 04/30/21 04/30/21 04/30/21 05:22 11:55 17:36 WBC RBC Hgb Hct MCV MCH RDW Plt Count Lymph % (Auto) Seg Neutrophils % Seg Neuts % (Manual) Lymphocytes % (Manual) Nucleated RBC % Seg Neutrophils # Lymphocytes # (Manual) ABG pO2 ABG HCO3 ABG Base Excess ABG Hemoglobin VBG pH Oxyhemoglobin Sodium Potassium Chloride Carbon Dioxide BUN Creatinine Glucose POC Glucose 196 H 224 H 196 H Hemoglobin A1c Lactic Acid Calcium Phosphorus Magnesium Alkaline Phosphatase C-Reactive Protein Total Protein Albumin Vancomycin Trough Crossmatch 05/01/21 05/01/21 05/01/21 04:01 05:37 05:37 WBC 16.9 H RBC 2.97 L Hgb 7.4 L Hct 23.1 L MCV 78 L MCH 25 L RDW Plt Count Lymph % (Auto) Seg Neutrophils % Seg Neuts % (Manual) Lymphocytes % (Manual) Nucleated RBC % Seg Neutrophils # Lymphocytes # (Manual) ABG pO2 ABG HCO3 ABG Base Excess ABG Hemoglobin VBG pH Oxyhemoglobin Sodium Potassium Chloride 108.4 H Carbon Dioxide BUN 41 H Creatinine Glucose 124 H POC Glucose 122 H Hemoglobin A1c Lactic Acid Calcium 8.0 L Phosphorus Magnesium Alkaline Phosphatase C-Reactive Protein Total Protein Albumin Vancomycin Trough Crossmatch 05/01/21 05/01/21 05/01/21 06:27 13:45 16:40 WBC RBC Hgb Hct MCV MCH RDW Plt Count Lymph % (Auto) Seg Neutrophils % Seg Neuts % (Manual) Lymphocytes % (Manual) Nucleated RBC % Seg Neutrophils # Lymphocytes # (Manual) ABG pO2 ABG HCO3 ABG Base Excess ABG Hemoglobin VBG pH Oxyhemoglobin Sodium Potassium Chloride Carbon Dioxide BUN Creatinine Glucose POC Glucose 126 H 231 H 266 H Hemoglobin A1c Lactic Acid Calcium Phosphorus Magnesium Alkaline Phosphatase C-Reactive Protein Total Protein Albumin Vancomycin Trough Crossmatch 05/01/21 05/02/21 05/02/21 23:16 05:43 11:27 WBC RBC Hgb Hct MCV MCH RDW Plt Count Lymph % (Auto) Seg Neutrophils % Seg Neuts % (Manual) Lymphocytes % (Manual) Nucleated RBC % Seg Neutrophils # Lymphocytes # (Manual) ABG pO2 ABG HCO3 ABG Base Excess ABG Hemoglobin VBG pH Oxyhemoglobin Sodium Potassium Chloride Carbon Dioxide BUN Creatinine Glucose POC Glucose 192 H 236 H 284 H Hemoglobin A1c Lactic Acid Calcium Phosphorus Magnesium Alkaline Phosphatase C-Reactive Protein Total Protein Albumin Vancomycin Trough Crossmatch 05/02/21 05/02/21 05/03/21 16:52 23:20 06:16 WBC RBC Hgb Hct MCV MCH RDW Plt Count Lymph % (Auto) Seg Neutrophils % Seg Neuts % (Manual) Lymphocytes % (Manual) Nucleated RBC % Seg Neutrophils # Lymphocytes # (Manual) ABG pO2 ABG HCO3 ABG Base Excess ABG Hemoglobin VBG pH Oxyhemoglobin Sodium Potassium Chloride Carbon Dioxide BUN Creatinine Glucose POC Glucose 170 H 124 H 147 H Hemoglobin A1c Lactic Acid Calcium Phosphorus Magnesium Alkaline Phosphatase C-Reactive Protein Total Protein Albumin Vancomycin Trough Crossmatch 05/03/21 05/03/21 05/03/21 07:05 07:05 11:46 WBC 14.3 H RBC 2.82 L Hgb 6.8 L Hct 22.7 L MCV MCH 24 L RDW Plt Count Lymph % (Auto) 11.8 L Seg Neutrophils % 83.3 H Seg Neuts % (Manual) Lymphocytes % (Manual) Nucleated RBC % Seg Neutrophils # 11.9 H Lymphocytes # (Manual) ABG pO2 ABG HCO3 ABG Base Excess ABG Hemoglobin VBG pH Oxyhemoglobin Sodium Potassium Chloride Carbon Dioxide BUN 39 H Creatinine Glucose 163 H POC Glucose 134 H Hemoglobin A1c Lactic Acid Calcium Phosphorus Magnesium Alkaline Phosphatase C-Reactive Protein Total Protein Albumin Vancomycin Trough Crossmatch 05/03/21 05/03/21 05/03/21 17:11 18:00 19:46 WBC RBC Hgb Hct MCV MCH RDW Plt Count Lymph % (Auto) Seg Neutrophils % Seg Neuts % (Manual) Lymphocytes % (Manual) Nucleated RBC % Seg Neutrophils # Lymphocytes # (Manual) ABG pO2 ABG HCO3 ABG Base Excess ABG Hemoglobin VBG pH Oxyhemoglobin Sodium Potassium Chloride Carbon Dioxide BUN Creatinine Glucose POC Glucose 129 H 128 H Hemoglobin A1c Lactic Acid Calcium Phosphorus Magnesium Alkaline Phosphatase C-Reactive Protein Total Protein Albumin Vancomycin Trough Crossmatch See Detail 05/03/21 05/04/21 05/04/21 22:00 08:06 11:19 WBC RBC Hgb Hct MCV MCH RDW Plt Count Lymph % (Auto) Seg Neutrophils % Seg Neuts % (Manual) Lymphocytes % (Manual) Nucleated RBC % Seg Neutrophils # Lymphocytes # (Manual) ABG pO2 ABG HCO3 ABG Base Excess ABG Hemoglobin VBG pH Oxyhemoglobin Sodium Potassium Chloride Carbon Dioxide BUN Creatinine Glucose POC Glucose 144 H 337 H 383 H Hemoglobin A1c Lactic Acid Calcium Phosphorus Magnesium Alkaline Phosphatase C-Reactive Protein Total Protein Albumin Vancomycin Trough Crossmatch 05/04/21 05/04/21 05/05/21 17:43 23:01 06:05 WBC RBC Hgb Hct MCV MCH RDW Plt Count Lymph % (Auto) Seg Neutrophils % Seg Neuts % (Manual) Lymphocytes % (Manual) Nucleated RBC % Seg Neutrophils # Lymphocytes # (Manual) ABG pO2 ABG HCO3 ABG Base Excess ABG Hemoglobin VBG pH Oxyhemoglobin Sodium Potassium Chloride Carbon Dioxide BUN Creatinine Glucose POC Glucose 316 H 320 H 395 H Hemoglobin A1c Lactic Acid Calcium Phosphorus Magnesium Alkaline Phosphatase C-Reactive Protein Total Protein Albumin Vancomycin Trough Crossmatch 05/05/21 05/05/21 05/05/21 06:15 06:15 11:38 WBC RBC 2.56 L Hgb 6.8 L 6.9 L Hct 21.4 L 22.7 L MCV MCH 27 L RDW Plt Count 442 H Lymph % (Auto) Seg Neutrophils % 76.5 H Seg Neuts % (Manual) Lymphocytes % (Manual) Nucleated RBC % Seg Neutrophils # Lymphocytes # (Manual) ABG pO2 ABG HCO3 ABG Base Excess ABG Hemoglobin VBG pH Oxyhemoglobin Sodium Potassium Chloride Carbon Dioxide BUN 52 H Creatinine Glucose 430 H POC Glucose Hemoglobin A1c Lactic Acid Calcium Phosphorus Magnesium Alkaline Phosphatase C-Reactive Protein Total Protein Albumin Vancomycin Trough Crossmatch 05/05/21 05/05/21 05/06/21 11:47 23:07 06:44 WBC RBC Hgb Hct MCV MCH RDW Plt Count Lymph % (Auto) Seg Neutrophils % Seg Neuts % (Manual) Lymphocytes % (Manual) Nucleated RBC % Seg Neutrophils # Lymphocytes # (Manual) ABG pO2 ABG HCO3 ABG Base Excess ABG Hemoglobin VBG pH Oxyhemoglobin Sodium Potassium Chloride Carbon Dioxide BUN Creatinine Glucose POC Glucose 307 H 141 H 147 H Hemoglobin A1c Lactic Acid Calcium Phosphorus Magnesium Alkaline Phosphatase C-Reactive Protein Total Protein Albumin Vancomycin Trough Crossmatch 05/06/21 05/06/21 05/06/21 07:52 12:27 17:02 WBC RBC Hgb 7.0 L Hct 21.8 L MCV MCH RDW Plt Count Lymph % (Auto) Seg Neutrophils % Seg Neuts % (Manual) Lymphocytes % (Manual) Nucleated RBC % Seg Neutrophils # Lymphocytes # (Manual) ABG pO2 ABG HCO3 ABG Base Excess ABG Hemoglobin VBG pH Oxyhemoglobin Sodium Potassium Chloride Carbon Dioxide BUN Creatinine Glucose POC Glucose 200 H 135 H Hemoglobin A1c Lactic Acid Calcium Phosphorus Magnesium Alkaline Phosphatase C-Reactive Protein Total Protein Albumin Vancomycin Trough Crossmatch 05/06/21 05/07/21 05/07/21 23:03 08:02 10:49 WBC RBC Hgb 7.4 L Hct 23.7 L MCV MCH RDW Plt Count Lymph % (Auto) Seg Neutrophils % Seg Neuts % (Manual) Lymphocytes % (Manual) Nucleated RBC % Seg Neutrophils # Lymphocytes # (Manual) ABG pO2 ABG HCO3 ABG Base Excess ABG Hemoglobin VBG pH Oxyhemoglobin Sodium Potassium Chloride Carbon Dioxide BUN Creatinine Glucose POC Glucose 150 H 255 H Hemoglobin A1c Lactic Acid Calcium Phosphorus Magnesium Alkaline Phosphatase C-Reactive Protein Total Protein Albumin Vancomycin Trough Crossmatch 1205/07/21 05/07/21 13:27 18:03 Unknown WBC RBC 2.66 L Hgb 6.9 L Hct 22.3 L MCV MCH 26 L RDW 15.4 H Plt Count 449 H Lymph % (Auto) Seg Neutrophils % 70.7 H Seg Neuts % (Manual) Lymphocytes % (Manual) Nucleated RBC % Seg Neutrophils # Lymphocytes # (Manual) ABG pO2 ABG HCO3 ABG Base Excess ABG Hemoglobin VBG pH Oxyhemoglobin Sodium Potassium Chloride Carbon Dioxide BUN Creatinine Glucose POC Glucose 149 H 127 H Hemoglobin A1c Lactic Acid Calcium Phosphorus Magnesium Alkaline Phosphatase C-Reactive Protein Total Protein Albumin Vancomycin Trough Crossmatch 05/08/21 05/08/21 05/08/21 06:10 07:51 11:55 WBC RBC Hgb Hct MCV MCH RDW Plt Count Lymph % (Auto) Seg Neutrophils % Seg Neuts % (Manual) Lymphocytes % (Manual) Nucleated RBC % Seg Neutrophils # Lymphocytes # (Manual) ABG pO2 ABG HCO3 ABG Base Excess ABG Hemoglobin VBG pH Oxyhemoglobin Sodium Potassium Chloride Carbon Dioxide BUN Creatinine Glucose POC Glucose 190 H 194 H 197 H Hemoglobin A1c Lactic Acid Calcium Phosphorus Magnesium Alkaline Phosphatase C-Reactive Protein Total Protein Albumin Vancomycin Trough Crossmatch 05/08/21 05/08/21 05/08/21 12:25 12:25 18:35 WBC RBC 2.42 L Hgb 6.6 L Hct 20.1 L MCV MCH 27 L RDW 15.3 H Plt Count 452 H Lymph % (Auto) Seg Neutrophils % Seg Neuts % (Manual) Lymphocytes % (Manual) Nucleated RBC % Seg Neutrophils # Lymphocytes # (Manual) ABG pO2 ABG HCO3 ABG Base Excess ABG Hemoglobin VBG pH Oxyhemoglobin Sodium Potassium Chloride Carbon Dioxide BUN 27 H Creatinine Glucose 216 H POC Glucose 195 H Hemoglobin A1c Lactic Acid Calcium 7.9 L Phosphorus Magnesium Alkaline Phosphatase C-Reactive Protein Total Protein Albumin Vancomycin Trough Crossmatch 05/08/21 05/09/21 05/09/21 23:45 01:39 02:57 WBC RBC Hgb 6.6 L Hct 20.7 L MCV MCH RDW Plt Count Lymph % (Auto) Seg Neutrophils % Seg Neuts % (Manual) Lymphocytes % (Manual) Nucleated RBC % Seg Neutrophils # Lymphocytes # (Manual) ABG pO2 ABG HCO3 ABG Base Excess ABG Hemoglobin VBG pH Oxyhemoglobin Sodium Potassium Chloride Carbon Dioxide BUN Creatinine Glucose POC Glucose 286 H Hemoglobin A1c Lactic Acid Calcium Phosphorus Magnesium Alkaline Phosphatase C-Reactive Protein Total Protein Albumin Vancomycin Trough Crossmatch See Detail 05/09/21 05/09/21 05/09/21 04:51 07:34 07:34 WBC RBC 2.46 L Hgb 6.3 L Hct 20.6 L MCV MCH 26 L RDW 15.5 H Plt Count 505 H Lymph % (Auto) Seg Neutrophils % Seg Neuts % (Manual) Lymphocytes % (Manual) Nucleated RBC % Seg Neutrophils # Lymphocytes # (Manual) ABG pO2 ABG HCO3 ABG Base Excess ABG Hemoglobin VBG pH Oxyhemoglobin Sodium Potassium Chloride Carbon Dioxide BUN 24 H Creatinine Glucose 307 H POC Glucose 266 H Hemoglobin A1c Lactic Acid Calcium 7.7 L Phosphorus Magnesium Alkaline Phosphatase C-Reactive Protein Total Protein Albumin Vancomycin Trough Crossmatch 05/09/21 05/09/21 05/10/21 12:20 16:01 05:34 WBC RBC Hgb Hct MCV MCH RDW Plt Count Lymph % (Auto) Seg Neutrophils % Seg Neuts % (Manual) Lymphocytes % (Manual) Nucleated RBC % Seg Neutrophils # Lymphocytes # (Manual) ABG pO2 ABG HCO3 ABG Base Excess ABG Hemoglobin VBG pH Oxyhemoglobin Sodium Potassium Chloride Carbon Dioxide BUN Creatinine Glucose POC Glucose 249 H 166 H 203 H Hemoglobin A1c Lactic Acid Calcium Phosphorus Magnesium Alkaline Phosphatase C-Reactive Protein Total Protein Albumin Vancomycin Trough Crossmatch 05/10/21 05/10/21 06:30 16:11 WBC RBC 2.62 L Hgb 6.8 L Hct 21.8 L MCV MCH 26 L RDW 15.6 H Plt Count 489 H Lymph % (Auto) Seg Neutrophils % Seg Neuts % (Manual) Lymphocytes % (Manual) Nucleated RBC % Seg Neutrophils # Lymphocytes # (Manual) ABG pO2 ABG HCO3 ABG Base Excess ABG Hemoglobin VBG pH Oxyhemoglobin Sodium Potassium Chloride Carbon Dioxide BUN Creatinine Glucose POC Glucose 210 H Hemoglobin A1c Lactic Acid Calcium Phosphorus Magnesium Alkaline Phosphatase C-Reactive Protein Total Protein Albumin Vancomycin Trough Crossmatch Allied health notes reviewed: nursing
--- NOTE | 2021-05-10 18:23 | Progress Note ---
Assessment and Plan Assessment and Plan Assessment and plan: This is a 51-year-old female with DM, noncompliance, obesity, arthritis and right knee surgery admitted for DKA, oropharyngeal dysphagia on tube feeding Speech therapist following, patient has septic arthritis and severe sepsis on long-term antibiotics Rocephin total 6 weeks., Anemia with 6.8 hemoglobin, received 1 unit PRBC yesterday, this morning hemoglobin 6.8, will recheck Hb and transfuse additional PRBC if needed -Anemia; Hb 6.8-6.9 Received 1 unit PRBC yesterday 05/05/2021 This morning Hb 6.9, transfuse additional 1 unit PRBC today Check stool for occult blood, monitor H&H --Oropharyngeal dysphagia; On tube feeding, Speech therapy following start oral nutrition when speech therapist clears --Septic arthritis; knee; Ortho is planning knee/synovial debridement 04/30/2021;s/p arthrocentesis 05/03/2021 s/p Incision and drainage followed by arthroscopic exam of the right knee Continue antibiotics per ID total 6 weeks -- Sepsis, group B Streptococcus bacteremia, h/o right septic arthritis -Infectious disease consulted, appreciate recommendations -ABX therapy per ID: Ceftriaxone 2 g every 24 hours -Right knee x-ray shows large joint effusion s/p arthrocentesis Positive synovial fluid cultures, ID recommended total 6 weeks of Rocephin --Acute metabolic encephalopathy (improved significantly) Patient is more alert and awake, supportive care -Echocardiogram shows mildly dilated right heart chamber, mild to moderate TR, moderate pulmonary hypertension, RVSP 50-55, LVEF 45-50 --Respiratory: Acute hypoxic respiratory failure Nasal cannula oxygen, intermittent BiPAP Home O2 evaluation --Severe protein calorie malnutrition --Hypoalbuminemia, albumin 1.7 Dietitian/ash collector following Continue tube feeding, nutrition supplements Supportive care -- Hypernatremia (resolved) Closely monitor electrolytes --Leukocytosis/trending down Secondary to sepsis, continue antibiotics and supportive care Closely monitor --S/p DKA, h/o uncontrolled DM/present on admission -Hemoglobin A1c 18.3 Blood sugars moderate control -Avoid hypoglycemia Accu-Chek sliding scale coverage tube feeding Glucerna --DVT prophylaxis Subcu Lovenox --Full CODE STATUS Will closely monitor the patient and adjust the management as needed Plan of care reviewed with the patient and her nurse Membership Solicitor recommendations noted and appreciated Subjective Date of service: 05/10/21 Principal diagnosis: HAGMA; DKA; AMS; Obesity; Osteoarthritis; Hypercalcemia Interval history: Brief history and daily hospital course This is a 51-year-old female with DM, OA, medication noncompliance, obesity who presented to emergency department on 04/23 with complaints of weakness, elevated blood glucose levels, nausea, polydipsia, polyuria and diminished oral intake over the past week with worsening symptoms over the past 2 days. Patient acknowledges noncompliance with oral antihyperglycemic therapy. Patient was seen and evaluated in the emergency department and found to have lab work consistent with diabetic ketoacidosis, metabolic encephalopathy, metabolic acidosis and volume depletion. Patient was admitted to the hospital service to the ICU initiated DKA protocol with CCM consult. 04/24/21- Patient remains on DKA protocol. Still very lethargic this am, following simple commands. Rt. knee wound and swelling noted, and nursing staff also reported thick, white vaginal discharge. C/f sepsis, blood culture ordered, this am UA noted. Will start patient on PO difflucan for possible yeast infection, pending culture data. Anion GAP is still 18 this am, will continue DKA protocol for now. Continue to monitor electrolytes, serial BMP ordered. 04/25/21- Patient appears to be in distress this am, now on 3L NC. Lactic acidosis worsen overnight, X1L LR bolus adminstered. Ordered placed for stat ABGs. Blood culture growing GPC 3/4 bottles, patient remains afebrile with no leukocytosis. IV abx was escalated, ID consulted. Ortho consult is still pending, order placed for XR of the Rt. knee. Given patient worsen condition and high anio, gap, will continue insulin gtt for now. Low K and mg was repleted. Continue serial BMP,mg, and phosp 04/26/21- Patient appears more alert and awake this am, talkative, and following commands. Remains on DKA protocol, gap is closedX2, will transition patient to SSI and basal insulin and initiate enteral nutrition. Patient remains afebrile overnight, continue IV Abx per ID. 04/27/21- TASHA overnight. Patient mentation continue to improve. Worsening hyperglycemia, patient is tolerating TF. 70/30 added BID and SSI was adjusted to high dose Q4hrs. D/W CCM patient is stable for transfer to [facility] 04/28/21- Patient continue to improve. Remains drowsy this am, however, easily arousable. Now on 4L NC, still requiring Q4hrs NT suction due to increased secretions and weak cough. Continue to wean O2 supplement as tolerated, F/U CXR in the am. Continue IV Abx per ID. 04/29: Patient is awake and alert with strong cough and able to clear own airway. Ortho consult for right knee aspiration pending. 04/30: No acute events reported overnight, patient will be transferred to the floor. MR of right knee ordered. 05/01; patient had arthrocentesis 05/02; ID recommended total 6 weeks of Rocephin, case management to assist with antibiotics 05/02; patient is febrile, sepsis and positive cultures, currently on Rocephin, ID following 05/03; patient remains on tube feeding, speech therapist has not cleared for oral nutrition, aspiration risk Septic arthritis awaiting synovial debridement knee joint 05/04; blood sugars are uncontrolled Lantus insulin was stopped due to surgical procedure yesterday, Resumed Novolin 70/30, closely monitor and adjust the dose as needed 05/05; patient received 1 unit of PRBC yesterday, a.m. hemoglobin remains 6.8 after transfusion, recheck H&H, transfuse additional PRBC Patient remains on tube feedings, speech therapy following, on long-term antibio tics for her septic knee total 6 weeks 05/06/2021 Patient remains on tube feedings Speech therapy 6 weeks of antibiotics for septic arthritis If patient can swallow and tube feedings are discontinued--- patient can have IV antibiotics as outpatient Not ready for discharge 05/07: Patient seen and examined, remains quit ill, NG tube still in place hemoglobin is still 6.9 despite second unit transfusion done. Hard sure where this is coming from unsure why the patient is not able to eat. Will obtain MRI of the head to further evaluate and also obtain stool for occult blood to further elicit. In the meantime this is a painless delay in discharge and once that is rectified placement is already being pursued by case management. Dressing in the knee is in place. 05/08/20[address] still in [address] 05/09/2021 NG tube still in place 05/10/2021 Patient more alert and oriented NG tube still in place Objective - Constitutional Vitals: Vital Signs - hr 05/10/21 10:00 O2 Sat by Pulse 94 Oximetry General appearance: Present: no acute distress, well-nourished - EENT Eyes: PERRL, EOM intact ENT: hearing intact, clear oral mucosa Ears: bilateral: normal - Neck Neck: supple, normal ROM - Respiratory Respiratory effort: normal Respiratory: bilateral: CTA - Breasts Breasts: normal - Cardiovascular Heart rate: 80 Rhythm: regular Heart Sounds: Present: S1 & S2. Absent: gallop, rub Extremities: pulses intact, No edema, normal color, Full ROM - Gastrointestinal General gastrointestinal: Present: soft, non-tender, non-distended, normal bowel sounds - Genitourinary Female genitourinary: normal - Integumentary Integumentary: clear, warm, dry - Musculoskeletal Musculoskeletal: 1, strength equal bilaterally - Neurologic Neurologic: moves all extremities - Psychiatric Psychiatric: memory intact, appropriate mood/affect, intact judgment & insight - Labs CBC & Chem 7: 05/11/21 Unknown 05/09/21 07:34 Labs: Abnormal lab results 05/10/21 05/10/21 05/10/21 Range/Units 05:34 06:30 16:11 RBC 2.62 L (3.65-5.03) M/mm3 Hgb 6.8 L (10.1-14.3) gm/dl Hct 21.8 L (30.3-42.9) % MCH 26 L (28-32) pg RDW 15.6 H (13.2-15.2) % Plt Count 489 H (140-440) K/mm3 POC Glucose 203 H 210 H (70-105) mg/dL HEART Score - HEART Score Troponin: Troponin T < 0.010 ng/mL (0.00-0.029) 04/23/21 10:33
[2021-05-10] MEDS: SENNOSIDES 8.6 MG TAB PO SCH (21:20)
[2021-05-10] MEDS: ACETAMINOPHEN 325 MG TAB PO PRN (23:34)
[2021-05-11] MEDS: FREE WATER PO SCH ×5 (04:14→21:21)
[2021-05-11 05:24] LABS: Hematocrit 22.1 % (30.3-42.9); Mean Corpuscular HGB Conc 32 % (30-34); Mean Corpuscular Volume 84 fl (79-97); Platelet Count 518 K/mm3 (140-440); Red Blood Count 2.65 M/mm3 (3.65-5.03); Red Cell Distribution Width 15.9 % (13.2-15.2)
[2021-05-11] MEDS: INSULIN LISPRO 100 UNIT/ML SUB-Q SCH ×3 (05:33→18:25)
[2021-05-11] MEDS: INSULIN NPH/REGULAR 70/30 INJ SUB-Q SCH ×2 (09:15→18:25)
[2021-05-11] MEDS: METOCLOPRAMIDE 10 MG/10 ML ORAL LIQD FEEDTUBE SCH ×4 (09:35→21:04)
[2021-05-11] MEDS: FAMOTIDINE 20 MG TAB FEEDTUBE SCH (11:50)
--- NOTE | 2021-05-11 12:50 | Progress Note ---
Assessment and Plan Acute metabolic acidosis Diabetic ketoacidosis Acute toxic metabolic encephalopathy Obesity Osteoarthritis Hypercalcemia - continue anemia w/up / G.I. evaluation - continue aspiration precautions - continue care as below otherwise; - prn NT suction at this point - continue aspiration precautions (HOB > 40 degrees) - continue accuchecks with glycemic control per SSI for target blood glucose of < 80 mg/dL; avoid hypoglycemia - antiinfective's per ID team recommendations (Unasyn) - wean supplemental oxygen for target O2 sat's > 90% acutely - prn bronchodilators with pulmonary hygiene per RT - avoid nephrotoxins, renally dose all medications - avoid benzodiazepine's, reduce the possibility of delirium - prn analgesia per pain score - Maintenance of sleep-wake cycle, avoid delirium - G.I. & VTE prophylaxis - PT/OT/ROM exercises - continue mobility protocols for pressure ulcer prophylaxis - Monitor hemodynamics closely - continue other care per attending / other consultants - discharge planning ongoing concurrently .... Re-evaluate in am & prn Subjective Date of service: 05/11/21 Principal diagnosis: HAGMA; DKA; AMS; Obesity; Osteoarthritis; Hypercalcemia Interval history: Patient is seen today for: Acute metabolic acidosis; Diabetic ketoacidosis; Acute toxic metabolic encephalopathy; Obesity; Osteoarthritis; Hypercalcemia Seen and examined at bedside; 24hour events reviewed; nursing and respiratory care staff consulted; no adverse overnight events reported to me; resting peacefully in bed; more alert and appropriate overall; wants NGT out; denies chest pains / N/V/F/C Objective Vital Signs - 12hr 05/11/21 05/11/21 05/11/21 04:59 05:00 08:30 Temperature 98.7 F Pulse Rate 103 H Respiratory 20 19 Rate Blood Pressure 148/79 O2 Sat by Pulse 88 92 94 Oximetry Constitutional: no acute distress, alert Eyes: non-icteric ENT: oropharynx moist Neck: supple, no lymphadenopathy, no JVD Effort: normal Ascultation: Bilateral: clear, rhonchi (bases) Percussion: Bilateral: not dull Cardiovascular: regular rate and rhythm, other (S1,S2) Gastrointestinal: hypoactive bowel sounds, soft, non-tender, non-distended (protuberant) Integumentary: rash (perineal) Extremities: no cyanosis, no edema, pulses normal, no ischemia or petechiae, other (Right knee surgery.) Neurologic: normal mental status, non-focal exam, pupils equal and round, other Psychiatric: mood appropriate, affect normal CBC and BMP: 05/13/21 09:16 05/13/21 09:16 ABG, PT/INR, D-dimer: ABG ABG pH 7.426 pH Units (7.350-7.450) 04/25/21 11:20 ABG pCO2 25.3 mm Hg 04/25/21 11:20 ABG pO2 73.2 mm Hg (80.0-90.0) L 04/25/21 11:20 ABG O2 Saturation 96.9 % (95.0-99.0) 04/25/21 11:20 Abnormal lab findings: Abnormal Labs 04/23/21 04/23/21 04/23/21 10:33 10:33 10:33 WBC RBC Hgb Hct MCV MCH 26 L RDW Plt Count Lymph % (Auto) Seg Neutrophils % Seg Neuts % (Manual) Lymphocytes % (Manual) 7.0 L Nucleated RBC % 2.0 H Seg Neutrophils # Lymphocytes # (Manual) 0.5 L ABG pO2 ABG HCO3 ABG Base Excess ABG Hemoglobin VBG pH 7.180 L* Oxyhemoglobin Sodium 122 L Potassium 3.0 L Chloride 84.8 L Carbon Dioxide 6 L* BUN 49 H Creatinine 1.4 H Glucose 775 H* POC Glucose Hemoglobin A1c Lactic Acid Calcium 12.2 H* Phosphorus Magnesium Alkaline Phosphatase 130 H C-Reactive Protein Total Protein Albumin 2.9 L Vancomycin Trough Crossmatch 04/23/21 04/23/21 04/23/21 10:40 12:44 14:01 WBC RBC Hgb Hct MCV MCH RDW Plt Count Lymph % (Auto) Seg Neutrophils % Seg Neuts % (Manual) Lymphocytes % (Manual) Nucleated RBC % Seg Neutrophils # Lymphocytes # (Manual) ABG pO2 ABG HCO3 ABG Base Excess ABG Hemoglobin VBG pH Oxyhemoglobin Sodium Potassium Chloride Carbon Dioxide BUN Creatinine Glucose POC Glucose > 600 H 550 H Hemoglobin A1c Lactic Acid Calcium Phosphorus 1.50 L Magnesium Alkaline Phosphatase C-Reactive Protein Total Protein Albumin Vancomycin Trough Crossmatch 04/23/21 04/23/21 04/23/21 14:01 14:04 14:56 WBC RBC Hgb Hct MCV MCH RDW Plt Count Lymph % (Auto) Seg Neutrophils % Seg Neuts % (Manual) Lymphocytes % (Manual) Nucleated RBC % Seg Neutrophils # Lymphocytes # (Manual) ABG pO2 ABG HCO3 ABG Base Excess ABG Hemoglobin VBG pH Oxyhemoglobin Sodium 125 L Potassium 3.0 L Chloride 89.2 L Carbon Dioxide 6 L* BUN 45 H Creatinine 1.3 H Glucose 594 H* POC Glucose 518 H 425 H Hemoglobin A1c Lactic Acid Calcium 10.9 H Phosphorus Magnesium Alkaline Phosphatase C-Reactive Protein Total Protein Albumin Vancomycin Trough Crossmatch 04/23/21 04/23/21 04/23/21 15:43 15:48 17:21 WBC RBC Hgb Hct MCV MCH RDW Plt Count Lymph % (Auto) Seg Neutrophils % Seg Neuts % (Manual) Lymphocytes % (Manual) Nucleated RBC % Seg Neutrophils # Lymphocytes # (Manual) ABG pO2 ABG HCO3 ABG Base Excess ABG Hemoglobin VBG pH Oxyhemoglobin Sodium 131 L Potassium 2.9 L* Chloride Carbon Dioxide 8 L* BUN 39 H Creatinine Glucose 434 H POC Glucose 410 H 407 H Hemoglobin A1c Lactic Acid Calcium 10.3 H Phosphorus Magnesium Alkaline Phosphatase C-Reactive Protein Total Protein Albumin Vancomycin Trough Crossmatch 04/23/21 04/23/21 04/23/21 18:07 19:13 19:54 WBC RBC Hgb Hct MCV MCH RDW Plt Count Lymph % (Auto) Seg Neutrophils % Seg Neuts % (Manual) Lymphocytes % (Manual) Nucleated RBC % Seg Neutrophils # Lymphocytes # (Manual) ABG pO2 ABG HCO3 ABG Base Excess ABG Hemoglobin VBG pH Oxyhemoglobin Sodium 131 L Potassium 3.1 L Chloride 95.9 L Carbon Dioxide 7 L* BUN 39 H Creatinine Glucose 391 H POC Glucose 428 H 350 H Hemoglobin A1c Lactic Acid Calcium 11.2 H Phosphorus Magnesium Alkaline Phosphatase C-Reactive Protein Total Protein Albumin Vancomycin Trough Crossmatch 04/23/21 04/23/21 04/23/21 19:54 20:12 20:59 WBC RBC Hgb Hct MCV MCH RDW Plt Count Lymph % (Auto) Seg Neutrophils % Seg Neuts % (Manual) Lymphocytes % (Manual) Nucleated RBC % Seg Neutrophils # Lymphocytes # (Manual) ABG pO2 ABG HCO3 ABG Base Excess ABG Hemoglobin VBG pH Oxyhemoglobin Sodium Potassium Chloride Carbon Dioxide BUN Creatinine Glucose POC Glucose 365 H 286 H Hemoglobin A1c Lactic Acid Calcium Phosphorus 1.10 L D Magnesium Alkaline Phosphatase C-Reactive Protein Total Protein Albumin Vancomycin Trough Crossmatch 04/23/21 04/23/21 04/23/21 22:05 22:23 22:59 WBC RBC Hgb Hct MCV MCH RDW Plt Count Lymph % (Auto) Seg Neutrophils % Seg Neuts % (Manual) Lymphocytes % (Manual) Nucleated RBC % Seg Neutrophils # Lymphocytes # (Manual) ABG pO2 ABG HCO3 ABG Base Excess ABG Hemoglobin VBG pH Oxyhemoglobin Sodium 135 L Potassium 3.2 L Chloride Carbon Dioxide 10 L BUN 35 H Creatinine Glucose 300 H POC Glucose 257 H 238 H Hemoglobin A1c Lactic Acid Calcium 11.6 H Phosphorus Magnesium Alkaline Phosphatase C-Reactive Protein Total Protein Albumin Vancomycin Trough Crossmatch 04/23/21 04/24/21 04/24/21 23:57 00:10 00:56 WBC RBC Hgb Hct MCV MCH RDW Plt Count Lymph % (Auto) Seg Neutrophils % Seg Neuts % (Manual) Lymphocytes % (Manual) Nucleated RBC % Seg Neutrophils # Lymphocytes # (Manual) ABG pO2 ABG HCO3 ABG Base Excess ABG Hemoglobin VBG pH Oxyhemoglobin Sodium Potassium 3.2 L Chloride Carbon Dioxide 13 L BUN 33 H Creatinine Glucose 267 H POC Glucose 223 H 254 H Hemoglobin A1c Lactic Acid Calcium 11.2 H Phosphorus 1.20 L Magnesium Alkaline Phosphatase C-Reactive Protein Total Protein Albumin Vancomycin Trough Crossmatch 04/24/21 04/24/21 04/24/21 01:58 02:58 03:57 WBC RBC Hgb Hct MCV MCH RDW Plt Count Lymph % (Auto) Seg Neutrophils % Seg Neuts % (Manual) Lymphocytes % (Manual) Nucleated RBC % Seg Neutrophils # Lymphocytes # (Manual) ABG pO2 ABG HCO3 ABG Base Excess ABG Hemoglobin VBG pH Oxyhemoglobin Sodium Potassium Chloride Carbon Dioxide BUN Creatinine Glucose POC Glucose 264 H 251 H 200 H Hemoglobin A1c Lactic Acid Calcium Phosphorus Magnesium Alkaline Phosphatase C-Reactive Protein Total Protein Albumin Vancomycin Trough Crossmatch 04/24/21 04/24/21 04/24/21 04:16 04:16 04:16 WBC RBC Hgb Hct MCV MCH 26 L RDW Plt Count Lymph % (Auto) Seg Neutrophils % Seg Neuts % (Manual) Lymphocytes % (Manual) Nucleated RBC % Seg Neutrophils # Lymphocytes # (Manual) ABG pO2 ABG HCO3 ABG Base Excess ABG Hemoglobin VBG pH Oxyhemoglobin Sodium Potassium Chloride 108.0 H Carbon Dioxide 13 L BUN 31 H Creatinine Glucose 243 H POC Glucose Hemoglobin A1c 18.3 H Lactic Acid Calcium 10.9 H Phosphorus 1.80 L D Magnesium Alkaline Phosphatase C-Reactive Protein Total Protein Albumin Vancomycin Trough Crossmatch 04/24/21 04/24/21 04/24/21 04:59 05:53 06:51 WBC RBC Hgb Hct MCV MCH RDW Plt Count Lymph % (Auto) Seg Neutrophils % Seg Neuts % (Manual) Lymphocytes % (Manual) Nucleated RBC % Seg Neutrophils # Lymphocytes # (Manual) ABG pO2 ABG HCO3 ABG Base Excess ABG Hemoglobin VBG pH Oxyhemoglobin Sodium Potassium Chloride Carbon Dioxide BUN Creatinine Glucose POC Glucose 208 H 213 H 161 H Hemoglobin A1c Lactic Acid Calcium Phosphorus Magnesium Alkaline Phosphatase C-Reactive Protein Total Protein Albumin Vancomycin Trough Crossmatch 04/24/21 04/24/21 04/24/21 07:58 09:21 10:06 WBC RBC Hgb Hct MCV MCH RDW Plt Count Lymph % (Auto) Seg Neutrophils % Seg Neuts % (Manual) Lymphocytes % (Manual) Nucleated RBC % Seg Neutrophils # Lymphocytes # (Manual) ABG pO2 ABG HCO3 ABG Base Excess ABG Hemoglobin VBG pH Oxyhemoglobin Sodium Potassium Chloride Carbon Dioxide BUN Creatinine Glucose POC Glucose 149 H 178 H 164 H Hemoglobin A1c Lactic Acid Calcium Phosphorus Magnesium Alkaline Phosphatase C-Reactive Protein Total Protein Albumin Vancomycin Trough Crossmatch 04/24/21 04/24/21 04/24/21 11:03 12:07 12:14 WBC RBC Hgb Hct MCV MCH RDW Plt Count Lymph % (Auto) Seg Neutrophils % Seg Neuts % (Manual) Lymphocytes % (Manual) Nucleated RBC % Seg Neutrophils # Lymphocytes # (Manual) ABG pO2 ABG HCO3 ABG Base Excess ABG Hemoglobin VBG pH Oxyhemoglobin Sodium Potassium 3.2 L Chloride 108.7 H Carbon Dioxide 16 L BUN 24 H Creatinine Glucose 160 H POC Glucose 157 H 142 H Hemoglobin A1c Lactic Acid Calcium 10.5 H Phosphorus 0.70 L* D Magnesium Alkaline Phosphatase C-Reactive Protein Total Protein Albumin Vancomycin Trough Crossmatch 04/24/21 04/24/21 04/24/21 12:14 13:02 14:00 WBC RBC Hgb Hct MCV MCH RDW Plt Count Lymph % (Auto) Seg Neutrophils % Seg Neuts % (Manual) Lymphocytes % (Manual) Nucleated RBC % Seg Neutrophils # Lymphocytes # (Manual) ABG pO2 ABG HCO3 ABG Base Excess ABG Hemoglobin VBG pH Oxyhemoglobin Sodium Potassium Chloride Carbon Dioxide BUN Creatinine Glucose POC Glucose 138 H 150 H Hemoglobin A1c Lactic Acid 2.50 H* Calcium Phosphorus Magnesium Alkaline Phosphatase C-Reactive Protein Total Protein Albumin Vancomycin Trough Crossmatch 04/24/21 04/24/21 04/24/21 15:14 16:07 17:11 WBC RBC Hgb Hct MCV MCH RDW Plt Count Lymph % (Auto) Seg Neutrophils % Seg Neuts % (Manual) Lymphocytes % (Manual) Nucleated RBC % Seg Neutrophils # Lymphocytes # (Manual) ABG pO2 ABG HCO3 ABG Base Excess ABG Hemoglobin VBG pH Oxyhemoglobin Sodium Potassium Chloride Carbon Dioxide BUN Creatinine Glucose POC Glucose 145 H 148 H 156 H Hemoglobin A1c Lactic Acid Calcium Phosphorus Magnesium Alkaline Phosphatase C-Reactive Protein Total Protein Albumin Vancomycin Trough Crossmatch 04/24/21 04/24/21 04/24/21 18:12 18:24 19:55 WBC RBC Hgb Hct MCV MCH RDW Plt Count Lymph % (Auto) Seg Neutrophils % Seg Neuts % (Manual) Lymphocytes % (Manual) Nucleated RBC % Seg Neutrophils # Lymphocytes # (Manual) ABG pO2 ABG HCO3 ABG Base Excess ABG Hemoglobin VBG pH Oxyhemoglobin Sodium Potassium Chloride 109.2 H Carbon Dioxide 15 L BUN 22 H Creatinine Glucose 159 H POC Glucose 153 H 176 H Hemoglobin A1c Lactic Acid Calcium Phosphorus 1.80 L D Magnesium Alkaline Phosphatase C-Reactive Protein 24.30 H Total Protein Albumin Vancomycin Trough Crossmatch 04/24/21 04/24/21 04/24/21 20:55 22:04 23:02 WBC RBC Hgb Hct MCV MCH RDW Plt Count Lymph % (Auto) Seg Neutrophils % Seg Neuts % (Manual) Lymphocytes % (Manual) Nucleated RBC % Seg Neutrophils # Lymphocytes # (Manual) ABG pO2 ABG HCO3 ABG Base Excess ABG Hemoglobin VBG pH Oxyhemoglobin Sodium Potassium Chloride Carbon Dioxide BUN Creatinine Glucose POC Glucose 146 H 169 H Hemoglobin A1c Lactic Acid 3.10 H* Calcium Phosphorus Magnesium Alkaline Phosphatase C-Reactive Protein Total Protein Albumin Vancomycin Trough Crossmatch 04/24/21 04/25/21 04/25/21 23:13 00:05 01:28 WBC RBC Hgb Hct MCV MCH RDW Plt Count Lymph % (Auto) Seg Neutrophils % Seg Neuts % (Manual) Lymphocytes % (Manual) Nucleated RBC % Seg Neutrophils # Lymphocytes # (Manual) ABG pO2 ABG HCO3 ABG Base Excess ABG Hemoglobin VBG pH Oxyhemoglobin Sodium Potassium Chloride Carbon Dioxide BUN Creatinine Glucose POC Glucose 144 H 150 H 142 H Hemoglobin A1c Lactic Acid Calcium Phosphorus Magnesium Alkaline Phosphatase C-Reactive Protein Total Protein Albumin Vancomycin Trough Crossmatch 04/25/21 04/25/21 04/25/21 02:03 03:07 04:17 WBC RBC Hgb Hct MCV MCH RDW Plt Count Lymph % (Auto) Seg Neutrophils % Seg Neuts % (Manual) Lymphocytes % (Manual) Nucleated RBC % Seg Neutrophils # Lymphocytes # (Manual) ABG pO2 ABG HCO3 ABG Base Excess ABG Hemoglobin VBG pH Oxyhemoglobin Sodium Potassium Chloride Carbon Dioxide BUN Creatinine Glucose POC Glucose 148 H 161 H 158 H Hemoglobin A1c Lactic Acid Calcium Phosphorus Magnesium Alkaline Phosphatase C-Reactive Protein Total Protein Albumin Vancomycin Trough Crossmatch 04/25/21 04/25/21 04/25/21 05:48 06:52 07:58 WBC RBC Hgb Hct MCV MCH RDW Plt Count Lymph % (Auto) Seg Neutrophils % Seg Neuts % (Manual) Lymphocytes % (Manual) Nucleated RBC % Seg Neutrophils # Lymphocytes # (Manual) ABG pO2 ABG HCO3 ABG Base Excess ABG Hemoglobin VBG pH Oxyhemoglobin Sodium Potassium Chloride Carbon Dioxide BUN Creatinine Glucose POC Glucose 136 H 137 H 143 H Hemoglobin A1c Lactic Acid Calcium Phosphorus Magnesium Alkaline Phosphatase C-Reactive Protein Total Protein Albumin Vancomycin Trough Crossmatch 04/25/21 04/25/21 04/25/21 08:10 08:10 08:10 WBC RBC Hgb 9.5 L Hct 28.8 L MCV MCH 26 L RDW Plt Count Lymph % (Auto) Seg Neutrophils % Seg Neuts % (Manual) 33.0 L Lymphocytes % (Manual) Nucleated RBC % Seg Neutrophils # Lymphocytes # (Manual) 1.1 L ABG pO2 ABG HCO3 ABG Base Excess ABG Hemoglobin VBG pH Oxyhemoglobin Sodium Potassium 3.3 L Chloride 109.0 H Carbon Dioxide 16 L BUN 23 H Creatinine Glucose 151 H POC Glucose Hemoglobin A1c Lactic Acid 2.10 H* Calcium Phosphorus 2.20 L D Magnesium 1.60 L Alkaline Phosphatase C-Reactive Protein Total Protein Albumin Vancomycin Trough Crossmatch 04/25/21 04/25/21 04/25/21 08:53 09:59 11:20 WBC RBC Hgb Hct MCV MCH RDW Plt Count Lymph % (Auto) Seg Neutrophils % Seg Neuts % (Manual) Lymphocytes % (Manual) Nucleated RBC % Seg Neutrophils # Lymphocytes # (Manual) ABG pO2 ABG HCO3 ABG Base Excess ABG Hemoglobin VBG pH Oxyhemoglobin Sodium Potassium Chloride Carbon Dioxide BUN Creatinine Glucose POC Glucose 132 H 141 H 141 H Hemoglobin A1c Lactic Acid Calcium Phosphorus Magnesium Alkaline Phosphatase C-Reactive Protein Total Protein Albumin Vancomycin Trough Crossmatch 04/25/21 04/25/21 04/25/21 11:20 12:04 12:26 WBC RBC Hgb Hct MCV MCH RDW Plt Count Lymph % (Auto) Seg Neutrophils % Seg Neuts % (Manual) Lymphocytes % (Manual) Nucleated RBC % Seg Neutrophils # Lymphocytes # (Manual) ABG pO2 73.2 L ABG HCO3 16.2 L ABG Base Excess -7.1 L ABG Hemoglobin 8.7 L VBG pH Oxyhemoglobin 94.8 L Sodium Potassium 3.4 L Chloride 109.5 H Carbon Dioxide 14 L BUN 21 H Creatinine Glucose 155 H POC Glucose 129 H Hemoglobin A1c Lactic Acid Calcium Phosphorus 1.90 L Magnesium 1.60 L Alkaline Phosphatase C-Reactive Protein Total Protein Albumin Vancomycin Trough Crossmatch 04/25/21 04/25/21 04/25/21 13:04 13:58 15:09 WBC RBC Hgb Hct MCV MCH RDW Plt Count Lymph % (Auto) Seg Neutrophils % Seg Neuts % (Manual) Lymphocytes % (Manual) Nucleated RBC % Seg Neutrophils # Lymphocytes # (Manual) ABG pO2 ABG HCO3 ABG Base Excess ABG Hemoglobin VBG pH Oxyhemoglobin Sodium Potassium Chloride Carbon Dioxide BUN Creatinine Glucose POC Glucose 135 H 140 H 134 H Hemoglobin A1c Lactic Acid Calcium Phosphorus Magnesium Alkaline Phosphatase C-Reactive Protein Total Protein Albumin Vancomycin Trough Crossmatch 04/25/21 04/25/21 04/25/21 16:00 18:56 18:58 WBC RBC Hgb Hct MCV MCH RDW Plt Count Lymph % (Auto) Seg Neutrophils % Seg Neuts % (Manual) Lymphocytes % (Manual) Nucleated RBC % Seg Neutrophils # Lymphocytes # (Manual) ABG pO2 ABG HCO3 ABG Base Excess ABG Hemoglobin VBG pH Oxyhemoglobin Sodium Potassium Chloride Carbon Dioxide BUN Creatinine Glucose POC Glucose 135 H 170 H Hemoglobin A1c Lactic Acid 2.10 H* Calcium Phosphorus Magnesium Alkaline Phosphatase C-Reactive Protein Total Protein Albumin Vancomycin Trough Crossmatch 04/25/21 04/25/21 04/25/21 18:58 19:52 20:53 WBC RBC Hgb Hct MCV MCH RDW Plt Count Lymph % (Auto) Seg Neutrophils % Seg Neuts % (Manual) Lymphocytes % (Manual) Nucleated RBC % Seg Neutrophils # Lymphocytes # (Manual) ABG pO2 ABG HCO3 ABG Base Excess ABG Hemoglobin VBG pH Oxyhemoglobin Sodium Potassium Chloride 110.1 H Carbon Dioxide 13 L BUN 23 H Creatinine Glucose 206 H POC Glucose 162 H 171 H Hemoglobin A1c Lactic Acid Calcium Phosphorus Magnesium 2.40 H Alkaline Phosphatase C-Reactive Protein Total Protein Albumin Vancomycin Trough Crossmatch 04/25/21 04/25/21 04/26/21 21:54 22:53 00:03 WBC RBC Hgb Hct MCV MCH RDW Plt Count Lymph % (Auto) Seg Neutrophils % Seg Neuts % (Manual) Lymphocytes % (Manual) Nucleated RBC % Seg Neutrophils # Lymphocytes # (Manual) ABG pO2 ABG HCO3 ABG Base Excess ABG Hemoglobin VBG pH Oxyhemoglobin Sodium Potassium Chloride Carbon Dioxide BUN Creatinine Glucose POC Glucose 139 H 140 H 129 H Hemoglobin A1c Lactic Acid Calcium Phosphorus Magnesium Alkaline Phosphatase C-Reactive Protein Total Protein Albumin Vancomycin Trough Crossmatch 04/26/21 04/26/21 04/26/21 00:38 01:00 01:56 WBC RBC Hgb Hct MCV MCH RDW Plt Count Lymph % (Auto) Seg Neutrophils % Seg Neuts % (Manual) Lymphocytes % (Manual) Nucleated RBC % Seg Neutrophils # Lymphocytes # (Manual) ABG pO2 ABG HCO3 ABG Base Excess ABG Hemoglobin VBG pH Oxyhemoglobin Sodium Potassium Chloride 112.6 H Carbon Dioxide 14 L BUN 22 H Creatinine Glucose 149 H POC Glucose 126 H 137 H Hemoglobin A1c Lactic Acid Calcium Phosphorus Magnesium 2.40 H Alkaline Phosphatase C-Reactive Protein Total Protein Albumin Vancomycin Trough Crossmatch 04/26/21 04/26/21 04/26/21 02:54 04:04 05:02 WBC RBC 3.44 L Hgb 8.9 L Hct 26.9 L MCV 78 L MCH 26 L RDW Plt Count Lymph % (Auto) Seg Neutrophils % Seg Neuts % (Manual) Lymphocytes % (Manual) Nucleated RBC % Seg Neutrophils # Lymphocytes # (Manual) ABG pO2 ABG HCO3 ABG Base Excess ABG Hemoglobin VBG pH Oxyhemoglobin Sodium Potassium Chloride Carbon Dioxide BUN Creatinine Glucose POC Glucose 132 H 130 H Hemoglobin A1c Lactic Acid Calcium Phosphorus Magnesium Alkaline Phosphatase C-Reactive Protein Total Protein Albumin Vancomycin Trough Crossmatch 04/26/21 04/26/21 04/26/21 05:02 05:03 06:06 WBC RBC Hgb Hct MCV MCH RDW Plt Count Lymph % (Auto) Seg Neutrophils % Seg Neuts % (Manual) Lymphocytes % (Manual) Nucleated RBC % Seg Neutrophils # Lymphocytes # (Manual) ABG pO2 ABG HCO3 ABG Base Excess ABG Hemoglobin VBG pH Oxyhemoglobin Sodium Potassium Chloride 114.8 H Carbon Dioxide 14 L BUN 22 H Creatinine Glucose 129 H POC Glucose 115 H 129 H Hemoglobin A1c Lactic Acid Calcium Phosphorus Magnesium Alkaline Phosphatase C-Reactive Protein Total Protein Albumin Vancomycin Trough Crossmatch 04/26/21 04/26/21 04/26/21 06:53 07:58 09:09 WBC RBC Hgb Hct MCV MCH RDW Plt Count Lymph % (Auto) Seg Neutrophils % Seg Neuts % (Manual) Lymphocytes % (Manual) Nucleated RBC % Seg Neutrophils # Lymphocytes # (Manual) ABG pO2 ABG HCO3 ABG Base Excess ABG Hemoglobin VBG pH Oxyhemoglobin Sodium Potassium Chloride Carbon Dioxide BUN Creatinine Glucose POC Glucose 121 H 124 H 125 H Hemoglobin A1c Lactic Acid Calcium Phosphorus Magnesium Alkaline Phosphatase C-Reactive Protein Total Protein Albumin Vancomycin Trough Crossmatch 04/26/21 04/26/21 04/26/21 10:05 10:52 12:00 WBC RBC Hgb Hct MCV MCH RDW Plt Count Lymph % (Auto) Seg Neutrophils % Seg Neuts % (Manual) Lymphocytes % (Manual) Nucleated RBC % Seg Neutrophils # Lymphocytes # (Manual) ABG pO2 ABG HCO3 ABG Base Excess ABG Hemoglobin VBG pH Oxyhemoglobin Sodium Potassium Chloride Carbon Dioxide BUN Creatinine Glucose POC Glucose 131 H 129 H 126 H Hemoglobin A1c Lactic Acid Calcium Phosphorus Magnesium Alkaline Phosphatase C-Reactive Protein Total Protein Albumin Vancomycin Trough Crossmatch 04/26/21 04/26/21 04/26/21 13:17 14:06 14:11 WBC RBC Hgb Hct MCV MCH RDW Plt Count Lymph % (Auto) Seg Neutrophils % Seg Neuts % (Manual) Lymphocytes % (Manual) Nucleated RBC % Seg Neutrophils # Lymphocytes # (Manual) ABG pO2 ABG HCO3 ABG Base Excess ABG Hemoglobin VBG pH Oxyhemoglobin Sodium Potassium 5.3 H D Chloride 112.2 H Carbon Dioxide 14 L BUN 22 H Creatinine Glucose 116 H POC Glucose 130 H 132 H Hemoglobin A1c Lactic Acid Calcium Phosphorus Magnesium 2.40 H Alkaline Phosphatase C-Reactive Protein Total Protein Albumin Vancomycin Trough Crossmatch 04/26/21 04/26/21 04/26/21 15:07 15:20 16:05 WBC RBC Hgb Hct MCV MCH RDW Plt Count Lymph % (Auto) Seg Neutrophils % Seg Neuts % (Manual) Lymphocytes % (Manual) Nucleated RBC % Seg Neutrophils # Lymphocytes # (Manual) ABG pO2 ABG HCO3 ABG Base Excess ABG Hemoglobin VBG pH Oxyhemoglobin Sodium Potassium Chloride 112.4 H Carbon Dioxide 13 L BUN 22 H Creatinine Glucose 143 H POC Glucose 130 H 156 H Hemoglobin A1c Lactic Acid Calcium Phosphorus Magnesium Alkaline Phosphatase C-Reactive Protein Total Protein Albumin Vancomycin Trough Crossmatch 04/26/21 04/26/21 04/27/21 17:55 19:27 00:02 WBC RBC Hgb Hct MCV MCH RDW Plt Count Lymph % (Auto) Seg Neutrophils % Seg Neuts % (Manual) Lymphocytes % (Manual) Nucleated RBC % Seg Neutrophils # Lymphocytes # (Manual) ABG pO2 ABG HCO3 ABG Base Excess ABG Hemoglobin VBG pH Oxyhemoglobin Sodium Potassium Chloride Carbon Dioxide BUN Creatinine Glucose POC Glucose 194 H 261 H Hemoglobin A1c Lactic Acid Calcium Phosphorus Magnesium Alkaline Phosphatase C-Reactive Protein Total Protein Albumin Vancomycin Trough 38.2 H Crossmatch 04/27/21 04/27/21 04/27/21 04:03 04:03 05:33 WBC RBC 3.20 L Hgb 8.1 L Hct 25.1 L MCV 78 L MCH 25 L RDW Plt Count Lymph % (Auto) Seg Neutrophils % Seg Neuts % (Manual) Lymphocytes % (Manual) Nucleated RBC % Seg Neutrophils # Lymphocytes # (Manual) ABG pO2 ABG HCO3 ABG Base Excess ABG Hemoglobin VBG pH Oxyhemoglobin Sodium Potassium Chloride 112.4 H Carbon Dioxide 12 L BUN 30 H Creatinine Glucose 330 H POC Glucose 311 H Hemoglobin A1c Lactic Acid Calcium Phosphorus Magnesium Alkaline Phosphatase C-Reactive Protein Total Protein Albumin Vancomycin Trough Crossmatch 04/27/21 04/27/21 04/27/21 09:51 13:15 16:43 WBC RBC Hgb Hct MCV MCH RDW Plt Count Lymph % (Auto) Seg Neutrophils % Seg Neuts % (Manual) Lymphocytes % (Manual) Nucleated RBC % Seg Neutrophils # Lymphocytes # (Manual) ABG pO2 ABG HCO3 ABG Base Excess ABG Hemoglobin VBG pH Oxyhemoglobin Sodium Potassium Chloride Carbon Dioxide BUN Creatinine Glucose POC Glucose 335 H 291 H 218 H Hemoglobin A1c Lactic Acid Calcium Phosphorus Magnesium Alkaline Phosphatase C-Reactive Protein Total Protein Albumin Vancomycin Trough Crossmatch 04/27/21 04/27/21 04/28/21 18:10 22:08 02:15 WBC RBC Hgb Hct MCV MCH RDW Plt Count Lymph % (Auto) Seg Neutrophils % Seg Neuts % (Manual) Lymphocytes % (Manual) Nucleated RBC % Seg Neutrophils # Lymphocytes # (Manual) ABG pO2 ABG HCO3 ABG Base Excess ABG Hemoglobin VBG pH Oxyhemoglobin Sodium Potassium Chloride Carbon Dioxide BUN Creatinine Glucose POC Glucose 177 H 136 H 152 H Hemoglobin A1c Lactic Acid Calcium Phosphorus Magnesium Alkaline Phosphatase C-Reactive Protein Total Protein Albumin Vancomycin Trough Crossmatch 04/28/21 04/28/21 04/28/21 04:41 04:41 06:03 WBC RBC 3.50 L Hgb 8.9 L Hct 27.3 L MCV 78 L MCH 26 L RDW Plt Count Lymph % (Auto) Seg Neutrophils % Seg Neuts % (Manual) Lymphocytes % (Manual) Nucleated RBC % Seg Neutrophils # Lymphocytes # (Manual) ABG pO2 ABG HCO3 ABG Base Excess ABG Hemoglobin VBG pH Oxyhemoglobin Sodium Potassium Chloride 113.5 H Carbon Dioxide 16 L BUN 37 H Creatinine Glucose 167 H POC Glucose 174 H Hemoglobin A1c Lactic Acid Calcium Phosphorus Magnesium Alkaline Phosphatase C-Reactive Protein Total Protein Albumin Vancomycin Trough Crossmatch 04/28/21 04/28/21 04/28/21 08:42 11:34 17:15 WBC RBC Hgb Hct MCV MCH RDW Plt Count Lymph % (Auto) Seg Neutrophils % Seg Neuts % (Manual) Lymphocytes % (Manual) Nucleated RBC % Seg Neutrophils # Lymphocytes # (Manual) ABG pO2 ABG HCO3 ABG Base Excess ABG Hemoglobin VBG pH Oxyhemoglobin Sodium Potassium Chloride Carbon Dioxide BUN Creatinine Glucose POC Glucose 212 H 228 H 236 H Hemoglobin A1c Lactic Acid Calcium Phosphorus Magnesium Alkaline Phosphatase C-Reactive Protein Total Protein Albumin Vancomycin Trough Crossmatch 04/28/21 04/29/21 04/29/21 21:58 01:55 04:00 WBC 11.7 H RBC 3.35 L Hgb 8.5 L Hct 26.4 L MCV MCH 25 L RDW Plt Count Lymph % (Auto) Seg Neutrophils % Seg Neuts % (Manual) Lymphocytes % (Manual) Nucleated RBC % Seg Neutrophils # Lymphocytes # (Manual) ABG pO2 ABG HCO3 ABG Base Excess ABG Hemoglobin VBG pH Oxyhemoglobin Sodium Potassium Chloride Carbon Dioxide BUN Creatinine Glucose POC Glucose 208 H 137 H Hemoglobin A1c Lactic Acid Calcium Phosphorus Magnesium Alkaline Phosphatase C-Reactive Protein Total Protein Albumin Vancomycin Trough Crossmatch 04/29/21 04/29/21 04/29/21 04:00 05:16 11:02 WBC RBC Hgb Hct MCV MCH RDW Plt Count Lymph % (Auto) Seg Neutrophils % Seg Neuts % (Manual) Lymphocytes % (Manual) Nucleated RBC % Seg Neutrophils # Lymphocytes # (Manual) ABG pO2 ABG HCO3 ABG Base Excess ABG Hemoglobin VBG pH Oxyhemoglobin Sodium 146 H Potassium Chloride 112.4 H Carbon Dioxide BUN 41 H Creatinine Glucose 115 H POC Glucose 114 H 144 H Hemoglobin A1c Lactic Acid Calcium Phosphorus Magnesium Alkaline Phosphatase C-Reactive Protein Total Protein Albumin Vancomycin Trough Crossmatch 04/30/21 04/30/21 04/30/21 00:23 04:41 04:41 WBC 14.4 H RBC 3.12 L Hgb 7.8 L Hct 24.7 L MCV MCH 25 L RDW Plt Count 138 L Lymph % (Auto) Seg Neutrophils % Seg Neuts % (Manual) Lymphocytes % (Manual) Nucleated RBC % Seg Neutrophils # Lymphocytes # (Manual) ABG pO2 ABG HCO3 ABG Base Excess ABG Hemoglobin VBG pH Oxyhemoglobin Sodium Potassium Chloride 108.0 H Carbon Dioxide BUN 42 H Creatinine Glucose 215 H POC Glucose 126 H Hemoglobin A1c Lactic Acid Calcium Phosphorus Magnesium Alkaline Phosphatase 171 H C-Reactive Protein Total Protein 6.1 L Albumin 1.4 L Vancomycin Trough Crossmatch 04/30/21 04/30/21 04/30/21 05:22 11:55 17:36 WBC RBC Hgb Hct MCV MCH RDW Plt Count Lymph % (Auto) Seg Neutrophils % Seg Neuts % (Manual) Lymphocytes % (Manual) Nucleated RBC % Seg Neutrophils # Lymphocytes # (Manual) ABG pO2 ABG HCO3 ABG Base Excess ABG Hemoglobin VBG pH Oxyhemoglobin Sodium Potassium Chloride Carbon Dioxide BUN Creatinine Glucose POC Glucose 196 H 224 H 196 H Hemoglobin A1c Lactic Acid Calcium Phosphorus Magnesium Alkaline Phosphatase C-Reactive Protein Total Protein Albumin Vancomycin Trough Crossmatch 1205/01/21 05/01/21 04:01 05:37 05:37 WBC 16.9 H RBC 2.97 L Hgb 7.4 L Hct 23.1 L MCV 78 L MCH 25 L RDW Plt Count Lymph % (Auto) Seg Neutrophils % Seg Neuts % (Manual) Lymphocytes % (Manual) Nucleated RBC % Seg Neutrophils # Lymphocytes # (Manual) ABG pO2 ABG HCO3 ABG Base Excess ABG Hemoglobin VBG pH Oxyhemoglobin Sodium Potassium Chloride 108.4 H Carbon Dioxide BUN 41 H Creatinine Glucose 124 H POC Glucose 122 H Hemoglobin A1c Lactic Acid Calcium 8.0 L Phosphorus Magnesium Alkaline Phosphatase C-Reactive Protein Total Protein Albumin Vancomycin Trough Crossmatch 05/01/21 05/01/21 05/01/21 06:27 13:45 16:40 WBC RBC Hgb Hct MCV MCH RDW Plt Count Lymph % (Auto) Seg Neutrophils % Seg Neuts % (Manual) Lymphocytes % (Manual) Nucleated RBC % Seg Neutrophils # Lymphocytes # (Manual) ABG pO2 ABG HCO3 ABG Base Excess ABG Hemoglobin VBG pH Oxyhemoglobin Sodium Potassium Chloride Carbon Dioxide BUN Creatinine Glucose POC Glucose 126 H 231 H 266 H Hemoglobin A1c Lactic Acid Calcium Phosphorus Magnesium Alkaline Phosphatase C-Reactive Protein Total Protein Albumin Vancomycin Trough Crossmatch 05/01/21 05/02/21 05/02/21 23:16 05:43 11:27 WBC RBC Hgb Hct MCV MCH RDW Plt Count Lymph % (Auto) Seg Neutrophils % Seg Neuts % (Manual) Lymphocytes % (Manual) Nucleated RBC % Seg Neutrophils # Lymphocytes # (Manual) ABG pO2 ABG HCO3 ABG Base Excess ABG Hemoglobin VBG pH Oxyhemoglobin Sodium Potassium Chloride Carbon Dioxide BUN Creatinine Glucose POC Glucose 192 H 236 H 284 H Hemoglobin A1c Lactic Acid Calcium Phosphorus Magnesium Alkaline Phosphatase C-Reactive Protein Total Protein Albumin Vancomycin Trough Crossmatch 05/02/21 05/02/21 05/03/21 16:52 23:20 06:16 WBC RBC Hgb Hct MCV MCH RDW Plt Count Lymph % (Auto) Seg Neutrophils % Seg Neuts % (Manual) Lymphocytes % (Manual) Nucleated RBC % Seg Neutrophils # Lymphocytes # (Manual) ABG pO2 ABG HCO3 ABG Base Excess ABG Hemoglobin VBG pH Oxyhemoglobin Sodium Potassium Chloride Carbon Dioxide BUN Creatinine Glucose POC Glucose 170 H 124 H 147 H Hemoglobin A1c Lactic Acid Calcium Phosphorus Magnesium Alkaline Phosphatase C-Reactive Protein Total Protein Albumin Vancomycin Trough Crossmatch 05/03/21 05/03/21 05/03/21 07:05 07:05 11:46 WBC 14.3 H RBC 2.82 L Hgb 6.8 L Hct 22.7 L MCV MCH 24 L RDW Plt Count Lymph % (Auto) 11.8 L Seg Neutrophils % 83.3 H Seg Neuts % (Manual) Lymphocytes % (Manual) Nucleated RBC % Seg Neutrophils # 11.9 H Lymphocytes # (Manual) ABG pO2 ABG HCO3 ABG Base Excess ABG Hemoglobin VBG pH Oxyhemoglobin Sodium Potassium Chloride Carbon Dioxide BUN 39 H Creatinine Glucose 163 H POC Glucose 134 H Hemoglobin A1c Lactic Acid Calcium Phosphorus Magnesium Alkaline Phosphatase C-Reactive Protein Total Protein Albumin Vancomycin Trough Crossmatch 05/03/21 05/03/21 05/03/21 17:11 18:00 19:46 WBC RBC Hgb Hct MCV MCH RDW Plt Count Lymph % (Auto) Seg Neutrophils % Seg Neuts % (Manual) Lymphocytes % (Manual) Nucleated RBC % Seg Neutrophils # Lymphocytes # (Manual) ABG pO2 ABG HCO3 ABG Base Excess ABG Hemoglobin VBG pH Oxyhemoglobin Sodium Potassium Chloride Carbon Dioxide BUN Creatinine Glucose POC Glucose 129 H 128 H Hemoglobin A1c Lactic Acid Calcium Phosphorus Magnesium Alkaline Phosphatase C-Reactive Protein Total Protein Albumin Vancomycin Trough Crossmatch See Detail 05/03/21 05/04/21 05/04/21 22:00 08:06 11:19 WBC RBC Hgb Hct MCV MCH RDW Plt Count Lymph % (Auto) Seg Neutrophils % Seg Neuts % (Manual) Lymphocytes % (Manual) Nucleated RBC % Seg Neutrophils # Lymphocytes # (Manual) ABG pO2 ABG HCO3 ABG Base Excess ABG Hemoglobin VBG pH Oxyhemoglobin Sodium Potassium Chloride Carbon Dioxide BUN Creatinine Glucose POC Glucose 144 H 337 H 383 H Hemoglobin A1c Lactic Acid Calcium Phosphorus Magnesium Alkaline Phosphatase C-Reactive Protein Total Protein Albumin Vancomycin Trough Crossmatch 05/04/21 05/04/21 05/05/21 17:43 23:01 06:05 WBC RBC Hgb Hct MCV MCH RDW Plt Count Lymph % (Auto) Seg Neutrophils % Seg Neuts % (Manual) Lymphocytes % (Manual) Nucleated RBC % Seg Neutrophils # Lymphocytes # (Manual) ABG pO2 ABG HCO3 ABG Base Excess ABG Hemoglobin VBG pH Oxyhemoglobin Sodium Potassium Chloride Carbon Dioxide BUN Creatinine Glucose POC Glucose 316 H 320 H 395 H Hemoglobin A1c Lactic Acid Calcium Phosphorus Magnesium Alkaline Phosphatase C-Reactive Protein Total Protein Albumin Vancomycin Trough Crossmatch 05/05/21 05/05/21 05/05/21 06:15 06:15 11:38 WBC RBC 2.56 L Hgb 6.8 L 6.9 L Hct 21.4 L 22.7 L MCV MCH 27 L RDW Plt Count 442 H Lymph % (Auto) Seg Neutrophils % 76.5 H Seg Neuts % (Manual) Lymphocytes % (Manual) Nucleated RBC % Seg Neutrophils # Lymphocytes # (Manual) ABG pO2 ABG HCO3 ABG Base Excess ABG Hemoglobin VBG pH Oxyhemoglobin Sodium Potassium Chloride Carbon Dioxide BUN 52 H Creatinine Glucose 430 H POC Glucose Hemoglobin A1c Lactic Acid Calcium Phosphorus Magnesium Alkaline Phosphatase C-Reactive Protein Total Protein Albumin Vancomycin Trough Crossmatch 05/05/21 05/05/21 05/06/21 11:47 23:07 06:44 WBC RBC Hgb Hct MCV MCH RDW Plt Count Lymph % (Auto) Seg Neutrophils % Seg Neuts % (Manual) Lymphocytes % (Manual) Nucleated RBC % Seg Neutrophils # Lymphocytes # (Manual) ABG pO2 ABG HCO3 ABG Base Excess ABG Hemoglobin VBG pH Oxyhemoglobin Sodium Potassium Chloride Carbon Dioxide BUN Creatinine Glucose POC Glucose 307 H 141 H 147 H Hemoglobin A1c Lactic Acid Calcium Phosphorus Magnesium Alkaline Phosphatase C-Reactive Protein Total Protein Albumin Vancomycin Trough Crossmatch 05/06/21 05/06/21 05/06/21 07:52 12:27 17:02 WBC RBC Hgb 7.0 L Hct 21.8 L MCV MCH RDW Plt Count Lymph % (Auto) Seg Neutrophils % Seg Neuts % (Manual) Lymphocytes % (Manual) Nucleated RBC % Seg Neutrophils # Lymphocytes # (Manual) ABG pO2 ABG HCO3 ABG Base Excess ABG Hemoglobin VBG pH Oxyhemoglobin Sodium Potassium Chloride Carbon Dioxide BUN Creatinine Glucose POC Glucose 200 H 135 H Hemoglobin A1c Lactic Acid Calcium Phosphorus Magnesium Alkaline Phosphatase C-Reactive Protein Total Protein Albumin Vancomycin Trough Crossmatch 05/06/21 05/07/21 05/07/21 23:03 08:02 10:49 WBC RBC Hgb 7.4 L Hct 23.7 L MCV MCH RDW Plt Count Lymph % (Auto) Seg Neutrophils % Seg Neuts % (Manual) Lymphocytes % (Manual) Nucleated RBC % Seg Neutrophils # Lymphocytes # (Manual) ABG pO2 ABG HCO3 ABG Base Excess ABG Hemoglobin VBG pH Oxyhemoglobin Sodium Potassium Chloride Carbon Dioxide BUN Creatinine Glucose POC Glucose 150 H 255 H Hemoglobin A1c Lactic Acid Calcium Phosphorus Magnesium Alkaline Phosphatase C-Reactive Protein Total Protein Albumin Vancomycin Trough Crossmatch 05/07/21 05/07/21 05/07/21 13:27 18:03 Unknown WBC RBC 2.66 L Hgb 6.9 L Hct 22.3 L MCV MCH 26 L RDW 15.4 H Plt Count 449 H Lymph % (Auto) Seg Neutrophils % 70.7 H Seg Neuts % (Manual) Lymphocytes % (Manual) Nucleated RBC % Seg Neutrophils # Lymphocytes # (Manual) ABG pO2 ABG HCO3 ABG Base Excess ABG Hemoglobin VBG pH Oxyhemoglobin Sodium Potassium Chloride Carbon Dioxide BUN Creatinine Glucose POC Glucose 149 H 127 H Hemoglobin A1c Lactic Acid Calcium Phosphorus Magnesium Alkaline Phosphatase C-Reactive Protein Total Protein Albumin Vancomycin Trough Crossmatch 05/08/21 05/08/21 05/08/21 06:10 07:51 11:55 WBC RBC Hgb Hct MCV MCH RDW Plt Count Lymph % (Auto) Seg Neutrophils % Seg Neuts % (Manual) Lymphocytes % (Manual) Nucleated RBC % Seg Neutrophils # Lymphocytes # (Manual) ABG pO2 ABG HCO3 ABG Base Excess ABG Hemoglobin VBG pH Oxyhemoglobin Sodium Potassium Chloride Carbon Dioxide BUN Creatinine Glucose POC Glucose 190 H 194 H 197 H Hemoglobin A1c Lactic Acid Calcium Phosphorus Magnesium Alkaline Phosphatase C-Reactive Protein Total Protein Albumin Vancomycin Trough Crossmatch 05/08/21 05/08/21 05/08/21 12:25 12:25 18:35 WBC RBC 2.42 L Hgb 6.6 L Hct 20.1 L MCV MCH 27 L RDW 15.3 H Plt Count 452 H Lymph % (Auto) Seg Neutrophils % Seg Neuts % (Manual) Lymphocytes % (Manual) Nucleated RBC % Seg Neutrophils # Lymphocytes # (Manual) ABG pO2 ABG HCO3 ABG Base Excess ABG Hemoglobin VBG pH Oxyhemoglobin Sodium Potassium Chloride Carbon Dioxide BUN 27 H Creatinine Glucose 216 H POC Glucose 195 H Hemoglobin A1c Lactic Acid Calcium 7.9 L Phosphorus Magnesium Alkaline Phosphatase C-Reactive Protein Total Protein Albumin Vancomycin Trough Crossmatch 05/08/21 05/09/21 05/09/21 23:45 01:39 02:57 WBC RBC Hgb 6.6 L Hct 20.7 L MCV MCH RDW Plt Count Lymph % (Auto) Seg Neutrophils % Seg Neuts % (Manual) Lymphocytes % (Manual) Nucleated RBC % Seg Neutrophils # Lymphocytes # (Manual) ABG pO2 ABG HCO3 ABG Base Excess ABG Hemoglobin VBG pH Oxyhemoglobin Sodium Potassium Chloride Carbon Dioxide BUN Creatinine Glucose POC Glucose 286 H Hemoglobin A1c Lactic Acid Calcium Phosphorus Magnesium Alkaline Phosphatase C-Reactive Protein Total Protein Albumin Vancomycin Trough Crossmatch See Detail 05/09/21 05/09/21 05/09/21 04:51 07:34 07:34 WBC RBC 2.46 L Hgb 6.3 L Hct 20.6 L MCV MCH 26 L RDW 15.5 H Plt Count 505 H Lymph % (Auto) Seg Neutrophils % Seg Neuts % (Manual) Lymphocytes % (Manual) Nucleated RBC % Seg Neutrophils # Lymphocytes # (Manual) ABG pO2 ABG HCO3 ABG Base Excess ABG Hemoglobin VBG pH Oxyhemoglobin Sodium Potassium Chloride Carbon Dioxide BUN 24 H Creatinine Glucose 307 H POC Glucose 266 H Hemoglobin A1c Lactic Acid Calcium 7.7 L Phosphorus Magnesium Alkaline Phosphatase C-Reactive Protein Total Protein Albumin Vancomycin Trough Crossmatch 05/09/21 05/09/21 05/10/21 12:20 16:01 05:34 WBC RBC Hgb Hct MCV MCH RDW Plt Count Lymph % (Auto) Seg Neutrophils % Seg Neuts % (Manual) Lymphocytes % (Manual) Nucleated RBC % Seg Neutrophils # Lymphocytes # (Manual) ABG pO2 ABG HCO3 ABG Base Excess ABG Hemoglobin VBG pH Oxyhemoglobin Sodium Potassium Chloride Carbon Dioxide BUN Creatinine Glucose POC Glucose 249 H 166 H 203 H Hemoglobin A1c Lactic Acid Calcium Phosphorus Magnesium Alkaline Phosphatase C-Reactive Protein Total Protein Albumin Vancomycin Trough Crossmatch 05/10/21 05/10/21 05/10/21 06:30 16:11 23:11 WBC RBC 2.62 L Hgb 6.8 L Hct 21.8 L MCV MCH 26 L RDW 15.6 H Plt Count 489 H Lymph % (Auto) Seg Neutrophils % Seg Neuts % (Manual) Lymphocytes % (Manual) Nucleated RBC % Seg Neutrophils # Lymphocytes # (Manual) ABG pO2 ABG HCO3 ABG Base Excess ABG Hemoglobin VBG pH Oxyhemoglobin Sodium Potassium Chloride Carbon Dioxide BUN Creatinine Glucose POC Glucose 210 H 134 H Hemoglobin A1c Lactic Acid Calcium Phosphorus Magnesium Alkaline Phosphatase C-Reactive Protein Total Protein Albumin Vancomycin Trough Crossmatch 05/11/21 05/11/21 05/11/21 05:29 12:07 Unknown WBC RBC 2.65 L Hgb 7.0 L Hct 22.1 L MCV MCH 26 L RDW 15.9 H Plt Count 518 H Lymph % (Auto) Seg Neutrophils % Seg Neuts % (Manual) Lymphocytes % (Manual) Nucleated RBC % Seg Neutrophils # Lymphocytes # (Manual) ABG pO2 ABG HCO3 ABG Base Excess ABG Hemoglobin VBG pH Oxyhemoglobin Sodium Potassium Chloride Carbon Dioxide BUN Creatinine Glucose POC Glucose 144 H 226 H Hemoglobin A1c Lactic Acid Calcium Phosphorus Magnesium Alkaline Phosphatase C-Reactive Protein Total Protein Albumin Vancomycin Trough Crossmatch Allied health notes reviewed: nursing
--- NOTE | 2021-05-11 16:01 | Progress Note ---
Assessment and Plan Assessment and Plan Assessment and plan: This is a 51-year-old female with DM, noncompliance, obesity, arthritis and right knee surgery admitted for DKA, oropharyngeal dysphagia on tube feeding Speech therapist following, patient has septic arthritis and severe sepsis on long-term antibiotics Rocephin total 6 weeks., Anemia with 6.8 hemoglobin, received 1 unit PRBC yesterday, this morning hemoglobin 6.8, will recheck Hb and transfuse additional PRBC if needed -Anemia; Hb 6.8-6.9 Received 1 unit PRBC yesterday 05/05/2021 This morning Hb 6.9, transfuse additional 1 unit PRBC today Check stool for occult blood, monitor H&H --Oropharyngeal dysphagia; tube feeding is discontinued Advance diet as tolerated --Septic arthritis; knee; Ortho is planning knee/synovial debridement 04/30/2021;s/p arthrocentesis 05/03/2021 s/p Incision and drainage followed by arthroscopic exam of the right knee Continue antibiotics per ID total 6 weeks -- Sepsis, group B Streptococcus bacteremia, h/o right septic arthritis -Infectious disease consulted, appreciate recommendations -ABX therapy per ID: Ceftriaxone 2 g every 24 hours -Right knee x-ray shows large joint effusion s/p arthrocentesis Positive synovial fluid cultures, ID recommended total 6 weeks of Rocephin --Acute metabolic encephalopathy (improved significantly) Patient is more alert and awake, supportive care -Echocardiogram shows mildly dilated right heart chamber, mild to moderate TR, moderate pulmonary hypertension, RVSP 50-55, LVEF 45-50 --Respiratory: Acute hypoxic respiratory failure Nasal cannula oxygen, intermittent BiPAP Home O2 evaluation --Severe protein calorie malnutrition --Hypoalbuminemia, albumin 1.7 Dietitian/tsa screener following Continue tube feeding, nutrition supplements Supportive care -- Hypernatremia (resolved) Closely monitor electrolytes --Leukocytosis/trending down Secondary to sepsis, continue antibiotics and supportive care Closely monitor --S/p DKA, h/o uncontrolled DM/present on admission -Hemoglobin A1c 18.3 Blood sugars moderate control -Avoid hypoglycemia Accu-Chek sliding scale coverage tube feeding Glucerna --DVT prophylaxis Subcu Lovenox --Full CODE STATUS Will closely monitor the patient and adjust the management as needed Plan of care reviewed with the patient and her nurse Highway Design Engineer recommendations noted and appreciated Subjective Date of service: 05/11/21 Principal diagnosis: HAGMA; DKA; AMS; Obesity; Osteoarthritis; Hypercalcemia Interval history: Brief history and daily hospital course This is a 51-year-old female with DM, OA, medication noncompliance, obesity who presented to emergency department on 04/23 with complaints of weakness, elevated blood glucose levels, nausea, polydipsia, polyuria and diminished oral intake over the past week with worsening symptoms over the past 2 days. Patient acknowledges noncompliance with oral antihyperglycemic therapy. Patient was seen and evaluated in the emergency department and found to have lab work consistent with diabetic ketoacidosis, metabolic encephalopathy, metabolic acidosis and volume depletion. Patient was admitted to the hospital service to the ICU initiated DKA protocol with CCM consult. 04/24/21- Patient remains on DKA protocol. Still very lethargic this am, followi ng simple commands. Rt. knee wound and swelling noted, and nursing staff also reported thick, white vaginal discharge. C/f sepsis, blood culture ordered, this am UA noted. Will start patient on PO difflucan for possible yeast infection, pending culture data. Anion GAP is still 18 this am, will continue DKA protocol for now. Continue to monitor electrolytes, serial BMP ordered. 04/25/21- Patient appears to be in distress this am, now on 3L NC. Lactic acidosis worsen overnight, X1L LR bolus adminstered. Ordered placed for stat ABGs. Blood culture growing GPC 3/4 bottles, patient remains afebrile with no leukocytosis. IV abx was escalated, ID consulted. Ortho consult is still pending, order placed for XR of the Rt. knee. Given patient worsen condition and high anio, gap, will continue insulin gtt for now. Low K and mg was repleted. Continue serial BMP,mg, and phosp 04/26/21- Patient appears more alert and awake this am, talkative, and following commands. Remains on DKA protocol, gap is closedX2, will transition patient to SSI and basal insulin and initiate enteral nutrition. Patient remains afebrile overnight, continue IV Abx per ID. 04/27/21- TASHA overnight. Patient mentation continue to improve. Worsening hyperglycemia, patient is tolerating TF. 70/30 added BID and SSI was adjusted to high dose Q4hrs. D/W CCM patient is stable for transfer to IMCU 04/28/21- Patient continue to improve. Remains drowsy this am, however, easily arousable. Now on 4L NC, still requiring Q4hrs NT suction due to increased secretions and weak cough. Continue to wean O2 supplement as tolerated, F/U CXR in the am. Continue IV Abx per ID. 04/29: Patient is awake and alert with strong cough and able to clear own airway. Ortho consult for right knee aspiration pending. 04/30: No acute events reported overnight, patient will be transferred to the floor. MR of right knee ordered. 05/01; patient had arthrocentesis 05/02; ID recommended total 6 weeks of Rocephin, case management to assist with antibiotics 05/02; patient is febrile, sepsis and positive cultures, currently on Rocephin, ID following 05/03; patient remains on tube feeding, speech therapist has not cleared for oral nutrition, aspiration risk Septic arthritis awaiting synovial debridement knee joint 05/04; blood sugars are uncontrolled Lantus insulin was stopped due to surgical procedure yesterday, Resumed Novolin 70/30, closely monitor and adjust the dose as needed 05/05; patient received 1 unit of PRBC yesterday, a.m. hemoglobin remains 6.8 after transfusion, recheck H&H, transfuse additional PRBC Patient remains on tube feedings, speech therapy following, on long-term antibiotics for her septic knee total 6 weeks 05/06/2021 Patient remains on tube feedings Speech therapy 6 weeks of antibiotics for septic arthritis If patient can swallow and tube feedings are discontinued--- patient can have IV antibiotics as outpatient Not ready for discharge 05/07: Patient seen and examined, remains quit ill, NG tube still in place hemoglobin is still 6.9 despite second unit transfusion done. Hard sure where this is coming from unsure why the patient is not able to eat. Will obtain MRI of the head to further evaluate and also obtain stool for occult blood to further elicit. In the meantime this is a painless delay in discharge and once that is rectified placement is already being pursued by case management. Dressing in the knee is in place. 05/08/20[address] still in [address] 05/09/2021 NG tube still in place 05/10/2021 Patient more alert and oriented NG tube still in place 05/11/2021 Patient is more alert and oriented NG tube is taken out Objective - Constitutional Vitals: Vital Signs - 12hr 05/11/21 05/11/21 05/11/21 04:59 05:00 08:30 Temperature 98.7 F Pulse Rate 103 H Respiratory 20 19 Rate Blood Pressure 148/79 O2 Sat by Pulse 88 92 94 Oximetry 05/11/21 05/11/21 10:00 12:10 Temperature 99.1 F Pulse Rate 109 H Respiratory 18 Rate Blood Pressure 184/88 O2 Sat by Pulse 96 90 Oximetry General appearance: Present: no acute distress, well-nourished - EENT Eyes: PERRL, EOM intact ENT: hearing intact, clear oral mucosa Ears: bilateral: normal - Neck Neck: supple, normal ROM - Respiratory Respiratory effort: normal Respiratory: bilateral: CTA - Breasts Breasts: normal - Cardiovascular Heart rate: 76 Rhythm: regular Heart Sounds: Present: S1 & S2. Absent: gallop, rub Extremities: pulses intact, No edema, normal color, Full ROM - Gastrointestinal General gastrointestinal: Present: soft, non-tender, non-distended, normal bowel sounds - Genitourinary Female genitourinary: normal - Integumentary Integumentary: clear, warm, dry - Musculoskeletal Musculoskeletal: 1, strength equal bilaterally - Neurologic Neurologic: moves all extremities - Psychiatric Psychiatric: memory intact, appropriate mood/affect, intact judgment & insight - Labs CBC & Chem 7: 05/11/21 Unknown 05/09/21 07:34 Labs: Abnormal lab results 05/10/21 05/10/21 05/11/21 Range/Units 16:11 23:11 05:29 RBC (3.65-5.03) M/mm3 Hgb (10.1-14.3) gm/dl Hct (30.3-42.9) % MCH (28-32) pg RDW (13.2-15.2) % Plt Count (140-440) K/mm3 POC Glucose 210 H 134 H 144 H (70-105) mg/dL 05/11/21 05/11/21 Range/Units 12:07 Unknown RBC 2.65 L (3.65-5.03) M/mm3 Hgb 7.0 L (10.1-14.3) gm/dl Hct 22.1 L (30.3-42.9) % MCH 26 L (28-32) pg RDW 15.9 H (13.2-15.2) % Plt Count 518 H (140-440) K/mm3 POC Glucose 226 H (70-105) mg/dL HEART Score - HEART Score Troponin: Troponin T < 0.010 ng/mL (0.00-0.029) 04/23/21 10:33
[2021-05-11] MEDS: SENNOSIDES 8.6 MG TAB PO SCH (21:05)
[2021-05-12] MEDS: FREE WATER PO SCH ×6 (00:27→22:30)
[2021-05-12] MEDS: HYDROmorphone 1 MG/1 ML INJ IV PRN (01:19)
[2021-05-12] MEDS: INSULIN LISPRO 100 UNIT/ML SUB-Q SCH ×4 (01:27→22:27)
[2021-05-12] MEDS: METOCLOPRAMIDE 10 MG/10 ML ORAL LIQD FEEDTUBE SCH ×4 (10:03→22:29)
[2021-05-12] MEDS: FAMOTIDINE 20 MG TAB FEEDTUBE SCH (10:04)
[2021-05-12] MEDS: INSULIN NPH/REGULAR 70/30 INJ SUB-Q SCH ×2 (10:04→17:28)
--- NOTE | 2021-05-12 12:08 | Progress Note ---
Assessment and Plan Acute metabolic acidosis Diabetic ketoacidosis Acute toxic metabolic encephalopathy Obesity Osteoarthritis Hypercalcemia - PRBC transfusions for serum Hb < 7.0 - Anemia w/up / G.I. evaluation - continue care as below otherwise; - prn NT suction at this point - continue aspiration precautions (HOB > 40 degrees) - continue accuchecks with glycemic control per SSI for target blood glucose of < 180 mg/dL; avoid hypoglycemia - antiinfective's per ID team recommendations (Unasyn) - wean supplemental oxygen for target O2 sat's > 90% acutely - prn bronchodilators with pulmonary hygiene per RT - avoid nephrotoxins, renally dose all medications - avoid benzodiazepine's, reduce the possibility of delirium - prn analgesia per pain score - Maintenance of sleep-wake cycle, avoid delirium - G.I. & VTE prophylaxis - PT/OT/ROM exercises - continue mobility protocols for pressure ulcer prophylaxis - Monitor hemodynamics closely - continue other care per attending / other consultants - discharge planning ongoing concurrently .... Re-evaluate in am & prn Subjective Date of service: 05/12/21 Principal diagnosis: HAGMA; DKA; AMS; Obesity; Osteoarthritis; Hypercalcemia Interval history: Patient is seen today for: Acute metabolic acidosis; Diabetic ketoacidosis; Acute toxic metabolic encephalopathy; Obesity; Osteoarthritis; Hypercalcemia Seen and examined at bedside; 24hour events reviewed; nursing and respiratory care staff consulted; no adverse overnight events reported to me; resting peacefully in bed; Objective Vital Signs - 12hr 05/12/21 05/12/21 04:28 11:37 Temperature 99.5 F Pulse Rate 107 H Respiratory 20 Rate Blood Pressure 122/69 O2 Sat by Pulse 87 95 Oximetry Constitutional: no acute distress, alert Eyes: non-icteric ENT: oropharynx moist Neck: supple, no lymphadenopathy, no JVD Effort: normal Ascultation: Bilateral: clear, diminished breath sounds, rhonchi Percussion: Bilateral: not dull Cardiovascular: regular rate and rhythm, other (S1,S2) Gastrointestinal: hypoactive bowel sounds, soft, non-tender, non-distended (prot uberant) Integumentary: rash (perineal) Extremities: no cyanosis, no edema, pulses normal, no ischemia or petechiae, other (Right knee surgery.) Neurologic: normal mental status, non-focal exam, pupils equal and round, other Psychiatric: mood appropriate, affect normal CBC and BMP: 05/13/21 09:16 05/13/21 09:16 ABG, PT/INR, D-dimer: ABG ABG pH 7.426 pH Units (7.350-7.450) 04/25/21 11:20 ABG pCO2 25.3 mm Hg 04/25/21 11:20 ABG pO2 73.2 mm Hg (80.0-90.0) L 04/25/21 11:20 ABG O2 Saturation 96.9 % (95.0-99.0) 04/25/21 11:20 Abnormal lab findings: Abnormal Labs 04/23/21 04/23/21 04/23/21 10:33 10:33 10:33 WBC RBC Hgb Hct MCV MCH 26 L RDW Plt Count Lymph % (Auto) Seg Neutrophils % Seg Neuts % (Manual) Lymphocytes % (Manual) 7.0 L Nucleated RBC % 2.0 H Seg Neutrophils # Lymphocytes # (Manual) 0.5 L ABG pO2 ABG HCO3 ABG Base Excess ABG Hemoglobin VBG pH 7.180 L* Oxyhemoglobin Sodium 122 L Potassium 3.0 L Chloride 84.8 L Carbon Dioxide 6 L* BUN 49 H Creatinine 1.4 H Glucose 775 H* POC Glucose Hemoglobin A1c Lactic Acid Calcium 12.2 H* Phosphorus Magnesium Alkaline Phosphatase 130 H C-Reactive Protein Total Protein Albumin 2.9 L Vancomycin Trough Crossmatch 04/23/21 04/23/21 04/23/21 10:40 12:44 14:01 WBC RBC Hgb Hct MCV MCH RDW Plt Count Lymph % (Auto) Seg Neutrophils % Seg Neuts % (Manual) Lymphocytes % (Manual) Nucleated RBC % Seg Neutrophils # Lymphocytes # (Manual) ABG pO2 ABG HCO3 ABG Base Excess ABG Hemoglobin VBG pH Oxyhemoglobin Sodium Potassium Chloride Carbon Dioxide BUN Creatinine Glucose POC Glucose > 600 H 550 H Hemoglobin A1c Lactic Acid Calcium Phosphorus 1.50 L Magnesium Alkaline Phosphatase C-Reactive Protein Total Protein Albumin Vancomycin Trough Crossmatch 04/23/21 04/23/21 04/23/21 14:01 14:04 14:56 WBC RBC Hgb Hct MCV MCH RDW Plt Count Lymph % (Auto) Seg Neutrophils % Seg Neuts % (Manual) Lymphocytes % (Manual) Nucleated RBC % Seg Neutrophils # Lymphocytes # (Manual) ABG pO2 ABG HCO3 ABG Base Excess ABG Hemoglobin VBG pH Oxyhemoglobin Sodium 125 L Potassium 3.0 L Chloride 89.2 L Carbon Dioxide 6 L* BUN 45 H Creatinine 1.3 H Glucose 594 H* POC Glucose 518 H 425 H Hemoglobin A1c Lactic Acid Calcium 10.9 H Phosphorus Magnesium Alkaline Phosphatase C-Reactive Protein Total Protein Albumin Vancomycin Trough Crossmatch 04/23/21 04/23/21 04/23/21 15:43 15:48 17:21 WBC RBC Hgb Hct MCV MCH RDW Plt Count Lymph % (Auto) Seg Neutrophils % Seg Neuts % (Manual) Lymphocytes % (Manual) Nucleated RBC % Seg Neutrophils # Lymphocytes # (Manual) ABG pO2 ABG HCO3 ABG Base Excess ABG Hemoglobin VBG pH Oxyhemoglobin Sodium 131 L Potassium 2.9 L* Chloride Carbon Dioxide 8 L* BUN 39 H Creatinine Glucose 434 H POC Glucose 410 H 407 H Hemoglobin A1c Lactic Acid Calcium 10.3 H Phosphorus Magnesium Alkaline Phosphatase C-Reactive Protein Total Protein Albumin Vancomycin Trough Crossmatch 04/23/21 04/23/21 04/23/21 18:07 19:13 19:54 WBC RBC Hgb Hct MCV MCH RDW Plt Count Lymph % (Auto) Seg Neutrophils % Seg Neuts % (Manual) Lymphocytes % (Manual) Nucleated RBC % Seg Neutrophils # Lymphocytes # (Manual) ABG pO2 ABG HCO3 ABG Base Excess ABG Hemoglobin VBG pH Oxyhemoglobin Sodium 131 L Potassium 3.1 L Chloride 95.9 L Carbon Dioxide 7 L* BUN 39 H Creatinine Glucose 391 H POC Glucose 428 H 350 H Hemoglobin A1c Lactic Acid Calcium 11.2 H Phosphorus Magnesium Alkaline Phosphatase C-Reactive Protein Total Protein Albumin Vancomycin Trough Crossmatch 04/23/21 04/23/21 04/23/21 19:54 20:12 20:59 WBC RBC Hgb Hct MCV MCH RDW Plt Count Lymph % (Auto) Seg Neutrophils % Seg Neuts % (Manual) Lymphocytes % (Manual) Nucleated RBC % Seg Neutrophils # Lymphocytes # (Manual) ABG pO2 ABG HCO3 ABG Base Excess ABG Hemoglobin VBG pH Oxyhemoglobin Sodium Potassium Chloride Carbon Dioxide BUN Creatinine Glucose POC Glucose 365 H 286 H Hemoglobin A1c Lactic Acid Calcium Phosphorus 1.10 L D Magnesium Alkaline Phosphatase C-Reactive Protein Total Protein Albumin Vancomycin Trough Crossmatch 04/23/21 04/23/21 04/23/21 22:05 22:23 22:59 WBC RBC Hgb Hct MCV MCH RDW Plt Count Lymph % (Auto) Seg Neutrophils % Seg Neuts % (Manual) Lymphocytes % (Manual) Nucleated RBC % Seg Neutrophils # Lymphocytes # (Manual) ABG pO2 ABG HCO3 ABG Base Excess ABG Hemoglobin VBG pH Oxyhemoglobin Sodium 135 L Potassium 3.2 L Chloride Carbon Dioxide 10 L BUN 35 H Creatinine Glucose 300 H POC Glucose 257 H 238 H Hemoglobin A1c Lactic Acid Calcium 11.6 H Phosphorus Magnesium Alkaline Phosphatase C-Reactive Protein Total Protein Albumin Vancomycin Trough Crossmatch 04/23/21 04/24/21 04/24/21 23:57 00:10 00:56 WBC RBC Hgb Hct MCV MCH RDW Plt Count Lymph % (Auto) Seg Neutrophils % Seg Neuts % (Manual) Lymphocytes % (Manual) Nucleated RBC % Seg Neutrophils # Lymphocytes # (Manual) ABG pO2 ABG HCO3 ABG Base Excess ABG Hemoglobin VBG pH Oxyhemoglobin Sodium Potassium 3.2 L Chloride Carbon Dioxide 13 L BUN 33 H Creatinine Glucose 267 H POC Glucose 223 H 254 H Hemoglobin A1c Lactic Acid Calcium 11.2 H Phosphorus 1.20 L Magnesium Alkaline Phosphatase C-Reactive Protein Total Protein Albumin Vancomycin Trough Crossmatch 04/24/21 04/24/21 04/24/21 01:58 02:58 03:57 WBC RBC Hgb Hct MCV MCH RDW Plt Count Lymph % (Auto) Seg Neutrophils % Seg Neuts % (Manual) Lymphocytes % (Manual) Nucleated RBC % Seg Neutrophils # Lymphocytes # (Manual) ABG pO2 ABG HCO3 ABG Base Excess ABG Hemoglobin VBG pH Oxyhemoglobin Sodium Potassium Chloride Carbon Dioxide BUN Creatinine Glucose POC Glucose 264 H 251 H 200 H Hemoglobin A1c Lactic Acid Calcium Phosphorus Magnesium Alkaline Phosphatase C-Reactive Protein Total Protein Albumin Vancomycin Trough Crossmatch 04/24/21 04/24/21 04/24/21 04:16 04:16 04:16 WBC RBC Hgb Hct MCV MCH 26 L RDW Plt Count Lymph % (Auto) Seg Neutrophils % Seg Neuts % (Manual) Lymphocytes % (Manual) Nucleated RBC % Seg Neutrophils # Lymphocytes # (Manual) ABG pO2 ABG HCO3 ABG Base Excess ABG Hemoglobin VBG pH Oxyhemoglobin Sodium Potassium Chloride 108.0 H Carbon Dioxide 13 L BUN 31 H Creatinine Glucose 243 H POC Glucose Hemoglobin A1c 18.3 H Lactic Acid Calcium 10.9 H Phosphorus 1.80 L D Magnesium Alkaline Phosphatase C-Reactive Protein Total Protein Albumin Vancomycin Trough Crossmatch 04/24/21 04/24/21 04/24/21 04:59 05:53 06:51 WBC RBC Hgb Hct MCV MCH RDW Plt Count Lymph % (Auto) Seg Neutrophils % Seg Neuts % (Manual) Lymphocytes % (Manual) Nucleated RBC % Seg Neutrophils # Lymphocytes # (Manual) ABG pO2 ABG HCO3 ABG Base Excess ABG Hemoglobin VBG pH Oxyhemoglobin Sodium Potassium Chloride Carbon Dioxide BUN Creatinine Glucose POC Glucose 208 H 213 H 161 H Hemoglobin A1c Lactic Acid Calcium Phosphorus Magnesium Alkaline Phosphatase C-Reactive Protein Total Protein Albumin Vancomycin Trough Crossmatch 04/24/21 04/24/21 04/24/21 07:58 09:21 10:06 WBC RBC Hgb Hct MCV MCH RDW Plt Count Lymph % (Auto) Seg Neutrophils % Seg Neuts % (Manual) Lymphocytes % (Manual) Nucleated RBC % Seg Neutrophils # Lymphocytes # (Manual) ABG pO2 ABG HCO3 ABG Base Excess ABG Hemoglobin VBG pH Oxyhemoglobin Sodium Potassium Chloride Carbon Dioxide BUN Creatinine Glucose POC Glucose 149 H 178 H 164 H Hemoglobin A1c Lactic Acid Calcium Phosphorus Magnesium Alkaline Phosphatase C-Reactive Protein Total Protein Albumin Vancomycin Trough Crossmatch 04/24/21 04/24/21 04/24/21 11:03 12:07 12:14 WBC RBC Hgb Hct MCV MCH RDW Plt Count Lymph % (Auto) Seg Neutrophils % Seg Neuts % (Manual) Lymphocytes % (Manual) Nucleated RBC % Seg Neutrophils # Lymphocytes # (Manual) ABG pO2 ABG HCO3 ABG Base Excess ABG Hemoglobin VBG pH Oxyhemoglobin Sodium Potassium 3.2 L Chloride 108.7 H Carbon Dioxide 16 L BUN 24 H Creatinine Glucose 160 H POC Glucose 157 H 142 H Hemoglobin A1c Lactic Acid Calcium 10.5 H Phosphorus 0.70 L* D Magnesium Alkaline Phosphatase C-Reactive Protein Total Protein Albumin Vancomycin Trough Crossmatch 04/24/21 04/24/21 04/24/21 12:14 13:02 14:00 WBC RBC Hgb Hct MCV MCH RDW Plt Count Lymph % (Auto) Seg Neutrophils % Seg Neuts % (Manual) Lymphocytes % (Manual) Nucleated RBC % Seg Neutrophils # Lymphocytes # (Manual) ABG pO2 ABG HCO3 ABG Base Excess ABG Hemoglobin VBG pH Oxyhemoglobin Sodium Potassium Chloride Carbon Dioxide BUN Creatinine Glucose POC Glucose 138 H 150 H Hemoglobin A1c Lactic Acid 2.50 H* Calcium Phosphorus Magnesium Alkaline Phosphatase C-Reactive Protein Total Protein Albumin Vancomycin Trough Crossmatch 04/24/21 04/24/21 04/24/21 15:14 16:07 17:11 WBC RBC Hgb Hct MCV MCH RDW Plt Count Lymph % (Auto) Seg Neutrophils % Seg Neuts % (Manual) Lymphocytes % (Manual) Nucleated RBC % Seg Neutrophils # Lymphocytes # (Manual) ABG pO2 ABG HCO3 ABG Base Excess ABG Hemoglobin VBG pH Oxyhemoglobin Sodium Potassium Chloride Carbon Dioxide BUN Creatinine Glucose POC Glucose 145 H 148 H 156 H Hemoglobin A1c Lactic Acid Calcium Phosphorus Magnesium Alkaline Phosphatase C-Reactive Protein Total Protein Albumin Vancomycin Trough Crossmatch 04/24/21 04/24/21 04/24/21 18:12 18:24 19:55 WBC RBC Hgb Hct MCV MCH RDW Plt Count Lymph % (Auto) Seg Neutrophils % Seg Neuts % (Manual) Lymphocytes % (Manual) Nucleated RBC % Seg Neutrophils # Lymphocytes # (Manual) ABG pO2 ABG HCO3 ABG Base Excess ABG Hemoglobin VBG pH Oxyhemoglobin Sodium Potassium Chloride 109.2 H Carbon Dioxide 15 L BUN 22 H Creatinine Glucose 159 H POC Glucose 153 H 176 H Hemoglobin A1c Lactic Acid Calcium Phosphorus 1.80 L D Magnesium Alkaline Phosphatase C-Reactive Protein 24.30 H Total Protein Albumin Vancomycin Trough Crossmatch 04/24/21 04/24/21 04/24/21 20:55 22:04 23:02 WBC RBC Hgb Hct MCV MCH RDW Plt Count Lymph % (Auto) Seg Neutrophils % Seg Neuts % (Manual) Lymphocytes % (Manual) Nucleated RBC % Seg Neutrophils # Lymphocytes # (Manual) ABG pO2 ABG HCO3 ABG Base Excess ABG Hemoglobin VBG pH Oxyhemoglobin Sodium Potassium Chloride Carbon Dioxide BUN Creatinine Glucose POC Glucose 146 H 169 H Hemoglobin A1c Lactic Acid 3.10 H* Calcium Phosphorus Magnesium Alkaline Phosphatase C-Reactive Protein Total Protein Albumin Vancomycin Trough Crossmatch 04/24/21 04/25/21 04/25/21 23:13 00:05 01:28 WBC RBC Hgb Hct MCV MCH RDW Plt Count Lymph % (Auto) Seg Neutrophils % Seg Neuts % (Manual) Lymphocytes % (Manual) Nucleated RBC % Seg Neutrophils # Lymphocytes # (Manual) ABG pO2 ABG HCO3 ABG Base Excess ABG Hemoglobin VBG pH Oxyhemoglobin Sodium Potassium Chloride Carbon Dioxide BUN Creatinine Glucose POC Glucose 144 H 150 H 142 H Hemoglobin A1c Lactic Acid Calcium Phosphorus Magnesium Alkaline Phosphatase C-Reactive Protein Total Protein Albumin Vancomycin Trough Crossmatch 04/25/21 04/25/21 04/25/21 02:03 03:07 04:17 WBC RBC Hgb Hct MCV MCH RDW Plt Count Lymph % (Auto) Seg Neutrophils % Seg Neuts % (Manual) Lymphocytes % (Manual) Nucleated RBC % Seg Neutrophils # Lymphocytes # (Manual) ABG pO2 ABG HCO3 ABG Base Excess ABG Hemoglobin VBG pH Oxyhemoglobin Sodium Potassium Chloride Carbon Dioxide BUN Creatinine Glucose POC Glucose 148 H 161 H 158 H Hemoglobin A1c Lactic Acid Calcium Phosphorus Magnesium Alkaline Phosphatase C-Reactive Protein Total Protein Albumin Vancomycin Trough Crossmatch 04/25/21 04/25/21 04/25/21 05:48 06:52 07:58 WBC RBC Hgb Hct MCV MCH RDW Plt Count Lymph % (Auto) Seg Neutrophils % Seg Neuts % (Manual) Lymphocytes % (Manual) Nucleated RBC % Seg Neutrophils # Lymphocytes # (Manual) ABG pO2 ABG HCO3 ABG Base Excess ABG Hemoglobin VBG pH Oxyhemoglobin Sodium Potassium Chloride Carbon Dioxide BUN Creatinine Glucose POC Glucose 136 H 137 H 143 H Hemoglobin A1c Lactic Acid Calcium Phosphorus Magnesium Alkaline Phosphatase C-Reactive Protein Total Protein Albumin Vancomycin Trough Crossmatch 04/25/21 04/25/21 04/25/21 08:10 08:10 08:10 WBC RBC Hgb 9.5 L Hct 28.8 L MCV MCH 26 L RDW Plt Count Lymph % (Auto) Seg Neutrophils % Seg Neuts % (Manual) 33.0 L Lymphocytes % (Manual) Nucleated RBC % Seg Neutrophils # Lymphocytes # (Manual) 1.1 L ABG pO2 ABG HCO3 ABG Base Excess ABG Hemoglobin VBG pH Oxyhemoglobin Sodium Potassium 3.3 L Chloride 109.0 H Carbon Dioxide 16 L BUN 23 H Creatinine Glucose 151 H POC Glucose Hemoglobin A1c Lactic Acid 2.10 H* Calcium Phosphorus 2.20 L D Magnesium 1.60 L Alkaline Phosphatase C-Reactive Protein Total Protein Albumin Vancomycin Trough Crossmatch 04/25/21 04/25/21 04/25/21 08:53 09:59 11:20 WBC RBC Hgb Hct MCV MCH RDW Plt Count Lymph % (Auto) Seg Neutrophils % Seg Neuts % (Manual) Lymphocytes % (Manual) Nucleated RBC % Seg Neutrophils # Lymphocytes # (Manual) ABG pO2 ABG HCO3 ABG Base Excess ABG Hemoglobin VBG pH Oxyhemoglobin Sodium Potassium Chloride Carbon Dioxide BUN Creatinine Glucose POC Glucose 132 H 141 H 141 H Hemoglobin A1c Lactic Acid Calcium Phosphorus Magnesium Alkaline Phosphatase C-Reactive Protein Total Protein Albumin Vancomycin Trough Crossmatch 04/25/21 04/25/21 04/25/21 11:20 12:04 12:26 WBC RBC Hgb Hct MCV MCH RDW Plt Count Lymph % (Auto) Seg Neutrophils % Seg Neuts % (Manual) Lymphocytes % (Manual) Nucleated RBC % Seg Neutrophils # Lymphocytes # (Manual) ABG pO2 73.2 L ABG HCO3 16.2 L ABG Base Excess -7.1 L ABG Hemoglobin 8.7 L VBG pH Oxyhemoglobin 94.8 L Sodium Potassium 3.4 L Chloride 109.5 H Carbon Dioxide 14 L BUN 21 H Creatinine Glucose 155 H POC Glucose 129 H Hemoglobin A1c Lactic Acid Calcium Phosphorus 1.90 L Magnesium 1.60 L Alkaline Phosphatase C-Reactive Protein Total Protein Albumin Vancomycin Trough Crossmatch 04/25/21 04/25/21 04/25/21 13:04 13:58 15:09 WBC RBC Hgb Hct MCV MCH RDW Plt Count Lymph % (Auto) Seg Neutrophils % Seg Neuts % (Manual) Lymphocytes % (Manual) Nucleated RBC % Seg Neutrophils # Lymphocytes # (Manual) ABG pO2 ABG HCO3 ABG Base Excess ABG Hemoglobin VBG pH Oxyhemoglobin Sodium Potassium Chloride Carbon Dioxide BUN Creatinine Glucose POC Glucose 135 H 140 H 134 H Hemoglobin A1c Lactic Acid Calcium Phosphorus Magnesium Alkaline Phosphatase C-Reactive Protein Total Protein Albumin Vancomycin Trough Crossmatch 04/25/21 04/25/21 04/25/21 16:00 18:56 18:58 WBC RBC Hgb Hct MCV MCH RDW Plt Count Lymph % (Auto) Seg Neutrophils % Seg Neuts % (Manual) Lymphocytes % (Manual) Nucleated RBC % Seg Neutrophils # Lymphocytes # (Manual) ABG pO2 ABG HCO3 ABG Base Excess ABG Hemoglobin VBG pH Oxyhemoglobin Sodium Potassium Chloride Carbon Dioxide BUN Creatinine Glucose POC Glucose 135 H 170 H Hemoglobin A1c Lactic Acid 2.10 H* Calcium Phosphorus Magnesium Alkaline Phosphatase C-Reactive Protein Total Protein Albumin Vancomycin Trough Crossmatch 04/25/21 04/25/21 04/25/21 18:58 19:52 20:53 WBC RBC Hgb Hct MCV MCH RDW Plt Count Lymph % (Auto) Seg Neutrophils % Seg Neuts % (Manual) Lymphocytes % (Manual) Nucleated RBC % Seg Neutrophils # Lymphocytes # (Manual) ABG pO2 ABG HCO3 ABG Base Excess ABG Hemoglobin VBG pH Oxyhemoglobin Sodium Potassium Chloride 110.1 H Carbon Dioxide 13 L BUN 23 H Creatinine Glucose 206 H POC Glucose 162 H 171 H Hemoglobin A1c Lactic Acid Calcium Phosphorus Magnesium 2.40 H Alkaline Phosphatase C-Reactive Protein Total Protein Albumin Vancomycin Trough Crossmatch 04/25/21 04/25/21 04/26/21 21:54 22:53 00:03 WBC RBC Hgb Hct MCV MCH RDW Plt Count Lymph % (Auto) Seg Neutrophils % Seg Neuts % (Manual) Lymphocytes % (Manual) Nucleated RBC % Seg Neutrophils # Lymphocytes # (Manual) ABG pO2 ABG HCO3 ABG Base Excess ABG Hemoglobin VBG pH Oxyhemoglobin Sodium Potassium Chloride Carbon Dioxide BUN Creatinine Glucose POC Glucose 139 H 140 H 129 H Hemoglobin A1c Lactic Acid Calcium Phosphorus Magnesium Alkaline Phosphatase C-Reactive Protein Total Protein Albumin Vancomycin Trough Crossmatch 04/26/21 04/26/21 04/26/21 00:38 01:00 01:56 WBC RBC Hgb Hct MCV MCH RDW Plt Count Lymph % (Auto) Seg Neutrophils % Seg Neuts % (Manual) Lymphocytes % (Manual) Nucleated RBC % Seg Neutrophils # Lymphocytes # (Manual) ABG pO2 ABG HCO3 ABG Base Excess ABG Hemoglobin VBG pH Oxyhemoglobin Sodium Potassium Chloride 112.6 H Carbon Dioxide 14 L BUN 22 H Creatinine Glucose 149 H POC Glucose 126 H 137 H Hemoglobin A1c Lactic Acid Calcium Phosphorus Magnesium 2.40 H Alkaline Phosphatase C-Reactive Protein Total Protein Albumin Vancomycin Trough Crossmatch 04/26/21 04/26/21 04/26/21 02:54 04:04 05:02 WBC RBC 3.44 L Hgb 8.9 L Hct 26.9 L MCV 78 L MCH 26 L RDW Plt Count Lymph % (Auto) Seg Neutrophils % Seg Neuts % (Manual) Lymphocytes % (Manual) Nucleated RBC % Seg Neutrophils # Lymphocytes # (Manual) ABG pO2 ABG HCO3 ABG Base Excess ABG Hemoglobin VBG pH Oxyhemoglobin Sodium Potassium Chloride Carbon Dioxide BUN Creatinine Glucose POC Glucose 132 H 130 H Hemoglobin A1c Lactic Acid Calcium Phosphorus Magnesium Alkaline Phosphatase C-Reactive Protein Total Protein Albumin Vancomycin Trough Crossmatch 04/26/21 04/26/21 04/26/21 05:02 05:03 06:06 WBC RBC Hgb Hct MCV MCH RDW Plt Count Lymph % (Auto) Seg Neutrophils % Seg Neuts % (Manual) Lymphocytes % (Manual) Nucleated RBC % Seg Neutrophils # Lymphocytes # (Manual) ABG pO2 ABG HCO3 ABG Base Excess ABG Hemoglobin VBG pH Oxyhemoglobin Sodium Potassium Chloride 114.8 H Carbon Dioxide 14 L BUN 22 H Creatinine Glucose 129 H POC Glucose 115 H 129 H Hemoglobin A1c Lactic Acid Calcium Phosphorus Magnesium Alkaline Phosphatase C-Reactive Protein Total Protein Albumin Vancomycin Trough Crossmatch 04/26/21 04/26/21 04/26/21 06:53 07:58 09:09 WBC RBC Hgb Hct MCV MCH RDW Plt Count Lymph % (Auto) Seg Neutrophils % Seg Neuts % (Manual) Lymphocytes % (Manual) Nucleated RBC % Seg Neutrophils # Lymphocytes # (Manual) ABG pO2 ABG HCO3 ABG Base Excess ABG Hemoglobin VBG pH Oxyhemoglobin Sodium Potassium Chloride Carbon Dioxide BUN Creatinine Glucose POC Glucose 121 H 124 H 125 H Hemoglobin A1c Lactic Acid Calcium Phosphorus Magnesium Alkaline Phosphatase C-Reactive Protein Total Protein Albumin Vancomycin Trough Crossmatch 04/26/21 04/26/21 04/26/21 10:05 10:52 12:00 WBC RBC Hgb Hct MCV MCH RDW Plt Count Lymph % (Auto) Seg Neutrophils % Seg Neuts % (Manual) Lymphocytes % (Manual) Nucleated RBC % Seg Neutrophils # Lymphocytes # (Manual) ABG pO2 ABG HCO3 ABG Base Excess ABG Hemoglobin VBG pH Oxyhemoglobin Sodium Potassium Chloride Carbon Dioxide BUN Creatinine Glucose POC Glucose 131 H 129 H 126 H Hemoglobin A1c Lactic Acid Calcium Phosphorus Magnesium Alkaline Phosphatase C-Reactive Protein Total Protein Albumin Vancomycin Trough Crossmatch 04/26/21 04/26/21 04/26/21 13:17 14:06 14:11 WBC RBC Hgb Hct MCV MCH RDW Plt Count Lymph % (Auto) Seg Neutrophils % Seg Neuts % (Manual) Lymphocytes % (Manual) Nucleated RBC % Seg Neutrophils # Lymphocytes # (Manual) ABG pO2 ABG HCO3 ABG Base Excess ABG Hemoglobin VBG pH Oxyhemoglobin Sodium Potassium 5.3 H D Chloride 112.2 H Carbon Dioxide 14 L BUN 22 H Creatinine Glucose 116 H POC Glucose 130 H 132 H Hemoglobin A1c Lactic Acid Calcium Phosphorus Magnesium 2.40 H Alkaline Phosphatase C-Reactive Protein Total Protein Albumin Vancomycin Trough Crossmatch 04/26/21 04/26/21 04/26/21 15:07 15:20 16:05 WBC RBC Hgb Hct MCV MCH RDW Plt Count Lymph % (Auto) Seg Neutrophils % Seg Neuts % (Manual) Lymphocytes % (Manual) Nucleated RBC % Seg Neutrophils # Lymphocytes # (Manual) ABG pO2 ABG HCO3 ABG Base Excess ABG Hemoglobin VBG pH Oxyhemoglobin Sodium Potassium Chloride 112.4 H Carbon Dioxide 13 L BUN 22 H Creatinine Glucose 143 H POC Glucose 130 H 156 H Hemoglobin A1c Lactic Acid Calcium Phosphorus Magnesium Alkaline Phosphatase C-Reactive Protein Total Protein Albumin Vancomycin Trough Crossmatch 04/26/21 04/26/21 04/27/21 17:55 19:27 00:02 WBC RBC Hgb Hct MCV MCH RDW Plt Count Lymph % (Auto) Seg Neutrophils % Seg Neuts % (Manual) Lymphocytes % (Manual) Nucleated RBC % Seg Neutrophils # Lymphocytes # (Manual) ABG pO2 ABG HCO3 ABG Base Excess ABG Hemoglobin VBG pH Oxyhemoglobin Sodium Potassium Chloride Carbon Dioxide BUN Creatinine Glucose POC Glucose 194 H 261 H Hemoglobin A1c Lactic Acid Calcium Phosphorus Magnesium Alkaline Phosphatase C-Reactive Protein Total Protein Albumin Vancomycin Trough 38.2 H Crossmatch 04/27/21 04/27/21 04/27/21 04:03 04:03 05:33 WBC RBC 3.20 L Hgb 8.1 L Hct 25.1 L MCV 78 L MCH 25 L RDW Plt Count Lymph % (Auto) Seg Neutrophils % Seg Neuts % (Manual) Lymphocytes % (Manual) Nucleated RBC % Seg Neutrophils # Lymphocytes # (Manual) ABG pO2 ABG HCO3 ABG Base Excess ABG Hemoglobin VBG pH Oxyhemoglobin Sodium Potassium Chloride 112.4 H Carbon Dioxide 12 L BUN 30 H Creatinine Glucose 330 H POC Glucose 311 H Hemoglobin A1c Lactic Acid Calcium Phosphorus Magnesium Alkaline Phosphatase C-Reactive Protein Total Protein Albumin Vancomycin Trough Crossmatch 04/27/21 04/27/21 04/27/21 09:51 13:15 16:43 WBC RBC Hgb Hct MCV MCH RDW Plt Count Lymph % (Auto) Seg Neutrophils % Seg Neuts % (Manual) Lymphocytes % (Manual) Nucleated RBC % Seg Neutrophils # Lymphocytes # (Manual) ABG pO2 ABG HCO3 ABG Base Excess ABG Hemoglobin VBG pH Oxyhemoglobin Sodium Potassium Chloride Carbon Dioxide BUN Creatinine Glucose POC Glucose 335 H 291 H 218 H Hemoglobin A1c Lactic Acid Calcium Phosphorus Magnesium Alkaline Phosphatase C-Reactive Protein Total Protein Albumin Vancomycin Trough Crossmatch 04/27/21 04/27/21 04/28/21 18:10 22:08 02:15 WBC RBC Hgb Hct MCV MCH RDW Plt Count Lymph % (Auto) Seg Neutrophils % Seg Neuts % (Manual) Lymphocytes % (Manual) Nucleated RBC % Seg Neutrophils # Lymphocytes # (Manual) ABG pO2 ABG HCO3 ABG Base Excess ABG Hemoglobin VBG pH Oxyhemoglobin Sodium Potassium Chloride Carbon Dioxide BUN Creatinine Glucose POC Glucose 177 H 136 H 152 H Hemoglobin A1c Lactic Acid Calcium Phosphorus Magnesium Alkaline Phosphatase C-Reactive Protein Total Protein Albumin Vancomycin Trough Crossmatch 04/28/21 04/28/21 04/28/21 04:41 04:41 06:03 WBC RBC 3.50 L Hgb 8.9 L Hct 27.3 L MCV 78 L MCH 26 L RDW Plt Count Lymph % (Auto) Seg Neutrophils % Seg Neuts % (Manual) Lymphocytes % (Manual) Nucleated RBC % Seg Neutrophils # Lymphocytes # (Manual) ABG pO2 ABG HCO3 ABG Base Excess ABG Hemoglobin VBG pH Oxyhemoglobin Sodium Potassium Chloride 113.5 H Carbon Dioxide 16 L BUN 37 H Creatinine Glucose 167 H POC Glucose 174 H Hemoglobin A1c Lactic Acid Calcium Phosphorus Magnesium Alkaline Phosphatase C-Reactive Protein Total Protein Albumin Vancomycin Trough Crossmatch 04/28/21 04/28/21 04/28/21 08:42 11:34 17:15 WBC RBC Hgb Hct MCV MCH RDW Plt Count Lymph % (Auto) Seg Neutrophils % Seg Neuts % (Manual) Lymphocytes % (Manual) Nucleated RBC % Seg Neutrophils # Lymphocytes # (Manual) ABG pO2 ABG HCO3 ABG Base Excess ABG Hemoglobin VBG pH Oxyhemoglobin Sodium Potassium Chloride Carbon Dioxide BUN Creatinine Glucose POC Glucose 212 H 228 H 236 H Hemoglobin A1c Lactic Acid Calcium Phosphorus Magnesium Alkaline Phosphatase C-Reactive Protein Total Protein Albumin Vancomycin Trough Crossmatch 04/28/21 04/29/21 04/29/21 21:58 01:55 04:00 WBC 11.7 H RBC 3.35 L Hgb 8.5 L Hct 26.4 L MCV MCH 25 L RDW Plt Count Lymph % (Auto) Seg Neutrophils % Seg Neuts % (Manual) Lymphocytes % (Manual) Nucleated RBC % Seg Neutrophils # Lymphocytes # (Manual) ABG pO2 ABG HCO3 ABG Base Excess ABG Hemoglobin VBG pH Oxyhemoglobin Sodium Potassium Chloride Carbon Dioxide BUN Creatinine Glucose POC Glucose 208 H 137 H Hemoglobin A1c Lactic Acid Calcium Phosphorus Magnesium Alkaline Phosphatase C-Reactive Protein Total Protein Albumin Vancomycin Trough Crossmatch 04/29/21 04/29/21 04/29/21 04:00 05:16 11:02 WBC RBC Hgb Hct MCV MCH RDW Plt Count Lymph % (Auto) Seg Neutrophils % Seg Neuts % (Manual) Lymphocytes % (Manual) Nucleated RBC % Seg Neutrophils # Lymphocytes # (Manual) ABG pO2 ABG HCO3 ABG Base Excess ABG Hemoglobin VBG pH Oxyhemoglobin Sodium 146 H Potassium Chloride 112.4 H Carbon Dioxide BUN 41 H Creatinine Glucose 115 H POC Glucose 114 H 144 H Hemoglobin A1c Lactic Acid Calcium Phosphorus Magnesium Alkaline Phosphatase C-Reactive Protein Total Protein Albumin Vancomycin Trough Crossmatch 04/30/21 04/30/21 04/30/21 00:23 04:41 04:41 WBC 14.4 H RBC 3.12 L Hgb 7.8 L Hct 24.7 L MCV MCH 25 L RDW Plt Count 138 L Lymph % (Auto) Seg Neutrophils % Seg Neuts % (Manual) Lymphocytes % (Manual) Nucleated RBC % Seg Neutrophils # Lymphocytes # (Manual) ABG pO2 ABG HCO3 ABG Base Excess ABG Hemoglobin VBG pH Oxyhemoglobin Sodium Potassium Chloride 108.0 H Carbon Dioxide BUN 42 H Creatinine Glucose 215 H POC Glucose 126 H Hemoglobin A1c Lactic Acid Calcium Phosphorus Magnesium Alkaline Phosphatase 171 H C-Reactive Protein Total Protein 6.1 L Albumin 1.4 L Vancomycin Trough Crossmatch 04/30/21 04/30/21 04/30/21 05:22 11:55 17:36 WBC RBC Hgb Hct MCV MCH RDW Plt Count Lymph % (Auto) Seg Neutrophils % Seg Neuts % (Manual) Lymphocytes % (Manual) Nucleated RBC % Seg Neutrophils # Lymphocytes # (Manual) ABG pO2 ABG HCO3 ABG Base Excess ABG Hemoglobin VBG pH Oxyhemoglobin Sodium Potassium Chloride Carbon Dioxide BUN Creatinine Glucose POC Glucose 196 H 224 H 196 H Hemoglobin A1c Lactic Acid Calcium Phosphorus Magnesium Alkaline Phosphatase C-Reactive Protein Total Protein Albumin Vancomycin Trough Crossmatch 05/01/21 05/01/21 05/01/21 04:01 05:37 05:37 WBC 16.9 H RBC 2.97 L Hgb 7.4 L Hct 23.1 L MCV 78 L MCH 25 L RDW Plt Count Lymph % (Auto) Seg Neutrophils % Seg Neuts % (Manual) Lymphocytes % (Manual) Nucleated RBC % Seg Neutrophils # Lymphocytes # (Manual) ABG pO2 ABG HCO3 ABG Base Excess ABG Hemoglobin VBG pH Oxyhemoglobin Sodium Potassium Chloride 108.4 H Carbon Dioxide BUN 41 H Creatinine Glucose 124 H POC Glucose 122 H Hemoglobin A1c Lactic Acid Calcium 8.0 L Phosphorus Magnesium Alkaline Phosphatase C-Reactive Protein Total Protein Albumin Vancomycin Trough Crossmatch 05/01/21 05/01/21 05/01/21 06:27 13:45 16:40 WBC RBC Hgb Hct MCV MCH RDW Plt Count Lymph % (Auto) Seg Neutrophils % Seg Neuts % (Manual) Lymphocytes % (Manual) Nucleated RBC % Seg Neutrophils # Lymphocytes # (Manual) ABG pO2 ABG HCO3 ABG Base Excess ABG Hemoglobin VBG pH Oxyhemoglobin Sodium Potassium Chloride Carbon Dioxide BUN Creatinine Glucose POC Glucose 126 H 231 H 266 H Hemoglobin A1c Lactic Acid Calcium Phosphorus Magnesium Alkaline Phosphatase C-Reactive Protein Total Protein Albumin Vancomycin Trough Crossmatch 05/01/21 05/02/21 05/02/21 23:16 05:43 11:27 WBC RBC Hgb Hct MCV MCH RDW Plt Count Lymph % (Auto) Seg Neutrophils % Seg Neuts % (Manual) Lymphocytes % (Manual) Nucleated RBC % Seg Neutrophils # Lymphocytes # (Manual) ABG pO2 ABG HCO3 ABG Base Excess ABG Hemoglobin VBG pH Oxyhemoglobin Sodium Potassium Chloride Carbon Dioxide BUN Creatinine Glucose POC Glucose 192 H 236 H 284 H Hemoglobin A1c Lactic Acid Calcium Phosphorus Magnesium Alkaline Phosphatase C-Reactive Protein Total Protein Albumin Vancomycin Trough Crossmatch 05/02/21 05/02/21 05/03/21 16:52 23:20 06:16 WBC RBC Hgb Hct MCV MCH RDW Plt Count Lymph % (Auto) Seg Neutrophils % Seg Neuts % (Manual) Lymphocytes % (Manual) Nucleated RBC % Seg Neutrophils # Lymphocytes # (Manual) ABG pO2 ABG HCO3 ABG Base Excess ABG Hemoglobin VBG pH Oxyhemoglobin Sodium Potassium Chloride Carbon Dioxide BUN Creatinine Glucose POC Glucose 170 H 124 H 147 H Hemoglobin A1c Lactic Acid Calcium Phosphorus Magnesium Alkaline Phosphatase C-Reactive Protein Total Protein Albumin Vancomycin Trough Crossmatch 05/03/21 05/03/21 05/03/21 07:05 07:05 11:46 WBC 14.3 H RBC 2.82 L Hgb 6.8 L Hct 22.7 L MCV MCH 24 L RDW Plt Count Lymph % (Auto) 11.8 L Seg Neutrophils % 83.3 H Seg Neuts % (Manual) Lymphocytes % (Manual) Nucleated RBC % Seg Neutrophils # 11.9 H Lymphocytes # (Manual) ABG pO2 ABG HCO3 ABG Base Excess ABG Hemoglobin VBG pH Oxyhemoglobin Sodium Potassium Chloride Carbon Dioxide BUN 39 H Creatinine Glucose 163 H POC Glucose 134 H Hemoglobin A1c Lactic Acid Calcium Phosphorus Magnesium Alkaline Phosphatase C-Reactive Protein Total Protein Albumin Vancomycin Trough Crossmatch 05/03/21 05/03/21 05/03/21 17:11 18:00 19:46 WBC RBC Hgb Hct MCV MCH RDW Plt Count Lymph % (Auto) Seg Neutrophils % Seg Neuts % (Manual) Lymphocytes % (Manual) Nucleated RBC % Seg Neutrophils # Lymphocytes # (Manual) ABG pO2 ABG HCO3 ABG Base Excess ABG Hemoglobin VBG pH Oxyhemoglobin Sodium Potassium Chloride Carbon Dioxide BUN Creatinine Glucose POC Glucose 129 H 128 H Hemoglobin A1c Lactic Acid Calcium Phosphorus Magnesium Alkaline Phosphatase C-Reactive Protein Total Protein Albumin Vancomycin Trough Crossmatch See Detail 05/03/21 05/04/21 05/04/21 22:00 08:06 11:19 WBC RBC Hgb Hct MCV MCH RDW Plt Count Lymph % (Auto) Seg Neutrophils % Seg Neuts % (Manual) Lymphocytes % (Manual) Nucleated RBC % Seg Neutrophils # Lymphocytes # (Manual) ABG pO2 ABG HCO3 ABG Base Excess ABG Hemoglobin VBG pH Oxyhemoglobin Sodium Potassium Chloride Carbon Dioxide BUN Creatinine Glucose POC Glucose 144 H 337 H 383 H Hemoglobin A1c Lactic Acid Calcium Phosphorus Magnesium Alkaline Phosphatase C-Reactive Protein Total Protein Albumin Vancomycin Trough Crossmatch 05/04/21 05/04/21 05/05/21 17:43 23:01 06:05 WBC RBC Hgb Hct MCV MCH RDW Plt Count Lymph % (Auto) Seg Neutrophils % Seg Neuts % (Manual) Lymphocytes % (Manual) Nucleated RBC % Seg Neutrophils # Lymphocytes # (Manual) ABG pO2 ABG HCO3 ABG Base Excess ABG Hemoglobin VBG pH Oxyhemoglobin Sodium Potassium Chloride Carbon Dioxide BUN Creatinine Glucose POC Glucose 316 H 320 H 395 H Hemoglobin A1c Lactic Acid Calcium Phosphorus Magnesium Alkaline Phosphatase C-Reactive Protein Total Protein Albumin Vancomycin Trough Crossmatch 05/05/21 05/05/21 05/05/21 06:15 06:15 11:38 WBC RBC 2.56 L Hgb 6.8 L 6.9 L Hct 21.4 L 22.7 L MCV MCH 27 L RDW Plt Count 442 H Lymph % (Auto) Seg Neutrophils % 76.5 H Seg Neuts % (Manual) Lymphocytes % (Manual) Nucleated RBC % Seg Neutrophils # Lymphocytes # (Manual) ABG pO2 ABG HCO3 ABG Base Excess ABG Hemoglobin VBG pH Oxyhemoglobin Sodium Potassium Chloride Carbon Dioxide BUN 52 H Creatinine Glucose 430 H POC Glucose Hemoglobin A1c Lactic Acid Calcium Phosphorus Magnesium Alkaline Phosphatase C-Reactive Protein Total Protein Albumin Vancomycin Trough Crossmatch 05/05/21 05/05/21 05/06/21 11:47 23:07 06:44 WBC RBC Hgb Hct MCV MCH RDW Plt Count Lymph % (Auto) Seg Neutrophils % Seg Neuts % (Manual) Lymphocytes % (Manual) Nucleated RBC % Seg Neutrophils # Lymphocytes # (Manual) ABG pO2 ABG HCO3 ABG Base Excess ABG Hemoglobin VBG pH Oxyhemoglobin Sodium Potassium Chloride Carbon Dioxide BUN Creatinine Glucose POC Glucose 307 H 141 H 147 H Hemoglobin A1c Lactic Acid Calcium Phosphorus Magnesium Alkaline Phosphatase C-Reactive Protein Total Protein Albumin Vancomycin Trough Crossmatch 05/06/21 05/06/21 05/06/21 07:52 12:27 17:02 WBC RBC Hgb 7.0 L Hct 21.8 L MCV MCH RDW Plt Count Lymph % (Auto) Seg Neutrophils % Seg Neuts % (Manual) Lymphocytes % (Manual) Nucleated RBC % Seg Neutrophils # Lymphocytes # (Manual) ABG pO2 ABG HCO3 ABG Base Excess ABG Hemoglobin VBG pH Oxyhemoglobin Sodium Potassium Chloride Carbon Dioxide BUN Creatinine Glucose POC Glucose 200 H 135 H Hemoglobin A1c Lactic Acid Calcium Phosphorus Magnesium Alkaline Phosphatase C-Reactive Protein Total Protein Albumin Vancomycin Trough Crossmatch 05/06/21 05/07/21 05/07/21 23:03 08:02 10:49 WBC RBC Hgb 7.4 L Hct 23.7 L MCV MCH RDW Plt Count Lymph % (Auto) Seg Neutrophils % Seg Neuts % (Manual) Lymphocytes % (Manual) Nucleated RBC % Seg Neutrophils # Lymphocytes # (Manual) ABG pO2 ABG HCO3 ABG Base Excess ABG Hemoglobin VBG pH Oxyhemoglobin Sodium Potassium Chloride Carbon Dioxide BUN Creatinine Glucose POC Glucose 150 H 255 H Hemoglobin A1c Lactic Acid Calcium Phosphorus Magnesium Alkaline Phosphatase C-Reactive Protein Total Protein Albumin Vancomycin Trough Crossmatch 05/07/21 05/07/21 05/07/21 13:27 18:03 Unknown WBC RBC 2.66 L Hgb 6.9 L Hct 22.3 L MCV MCH 26 L RDW 15.4 H Plt Count 449 H Lymph % (Auto) Seg Neutrophils % 70.7 H Seg Neuts % (Manual) Lymphocytes % (Manual) Nucleated RBC % Seg Neutrophils # Lymphocytes # (Manual) ABG pO2 ABG HCO3 ABG Base Excess ABG Hemoglobin VBG pH Oxyhemoglobin Sodium Potassium Chloride Carbon Dioxide BUN Creatinine Glucose POC Glucose 149 H 127 H Hemoglobin A1c Lactic Acid Calcium Phosphorus Magnesium Alkaline Phosphatase C-Reactive Protein Total Protein Albumin Vancomycin Trough Crossmatch 05/08/21 05/08/21 05/08/21 06:10 07:51 11:55 WBC RBC Hgb Hct MCV MCH RDW Plt Count Lymph % (Auto) Seg Neutrophils % Seg Neuts % (Manual) Lymphocytes % (Manual) Nucleated RBC % Seg Neutrophils # Lymphocytes # (Manual) ABG pO2 ABG HCO3 ABG Base Excess ABG Hemoglobin VBG pH Oxyhemoglobin Sodium Potassium Chloride Carbon Dioxide BUN Creatinine Glucose POC Glucose 190 H 194 H 197 H Hemoglobin A1c Lactic Acid Calcium Phosphorus Magnesium Alkaline Phosphatase C-Reactive Protein Total Protein Albumin Vancomycin Trough Crossmatch 05/08/21 05/08/21 05/08/21 12:25 12:25 18:35 WBC RBC 2.42 L Hgb 6.6 L Hct 20.1 L MCV MCH 27 L RDW 15.3 H Plt Count 452 H Lymph % (Auto) Seg Neutrophils % Seg Neuts % (Manual) Lymphocytes % (Manual) Nucleated RBC % Seg Neutrophils # Lymphocytes # (Manual) ABG pO2 ABG HCO3 ABG Base Excess ABG Hemoglobin VBG pH Oxyhemoglobin Sodium Potassium Chloride Carbon Dioxide BUN 27 H Creatinine Glucose 216 H POC Glucose 195 H Hemoglobin A1c Lactic Acid Calcium 7.9 L Phosphorus Magnesium Alkaline Phosphatase C-Reactive Protein Total Protein Albumin Vancomycin Trough Crossmatch 05/08/21 05/09/21 05/09/21 23:45 01:39 02:57 WBC RBC Hgb 6.6 L Hct 20.7 L MCV MCH RDW Plt Count Lymph % (Auto) Seg Neutrophils % Seg Neuts % (Manual) Lymphocytes % (Manual) Nucleated RBC % Seg Neutrophils # Lymphocytes # (Manual) ABG pO2 ABG HCO3 ABG Base Excess ABG Hemoglobin VBG pH Oxyhemoglobin Sodium Potassium Chloride Carbon Dioxide BUN Creatinine Glucose POC Glucose 286 H Hemoglobin A1c Lactic Acid Calcium Phosphorus Magnesium Alkaline Phosphatase C-Reactive Protein Total Protein Albumin Vancomycin Trough Crossmatch See Detail 05/09/21 05/09/21 05/09/21 04:51 07:34 07:34 WBC RBC 2.46 L Hgb 6.3 L Hct 20.6 L MCV MCH 26 L RDW 15.5 H Plt Count 505 H Lymph % (Auto) Seg Neutrophils % Seg Neuts % (Manual) Lymphocytes % (Manual) Nucleated RBC % Seg Neutrophils # Lymphocytes # (Manual) ABG pO2 ABG HCO3 ABG Base Excess ABG Hemoglobin VBG pH Oxyhemoglobin Sodium Potassium Chloride Carbon Dioxide BUN 24 H Creatinine Glucose 307 H POC Glucose 266 H Hemoglobin A1c Lactic Acid Calcium 7.7 L Phosphorus Magnesium Alkaline Phosphatase C-Reactive Protein Total Protein Albumin Vancomycin Trough Crossmatch 05/09/21 05/09/21 05/10/21 12:20 16:01 05:34 WBC RBC Hgb Hct MCV MCH RDW Plt Count Lymph % (Auto) Seg Neutrophils % Seg Neuts % (Manual) Lymphocytes % (Manual) Nucleated RBC % Seg Neutrophils # Lymphocytes # (Manual) ABG pO2 ABG HCO3 ABG Base Excess ABG Hemoglobin VBG pH Oxyhemoglobin Sodium Potassium Chloride Carbon Dioxide BUN Creatinine Glucose POC Glucose 249 H 166 H 203 H Hemoglobin A1c Lactic Acid Calcium Phosphorus Magnesium Alkaline Phosphatase C-Reactive Protein Total Protein Albumin Vancomycin Trough Crossmatch 05/10/21 05/10/21 05/10/21 06:30 16:11 23:11 WBC RBC 2.62 L Hgb 6.8 L Hct 21.8 L MCV MCH 26 L RDW 15.6 H Plt Count 489 H Lymph % (Auto) Seg Neutrophils % Seg Neuts % (Manual) Lymphocytes % (Manual) Nucleated RBC % Seg Neutrophils # Lymphocytes # (Manual) ABG pO2 ABG HCO3 ABG Base Excess ABG Hemoglobin VBG pH Oxyhemoglobin Sodium Potassium Chloride Carbon Dioxide BUN Creatinine Glucose POC Glucose 210 H 134 H Hemoglobin A1c Lactic Acid Calcium Phosphorus Magnesium Alkaline Phosphatase C-Reactive Protein Total Protein Albumin Vancomycin Trough Crossmatch 05/11/21 05/11/21 05/11/21 05:29 12:07 18:11 WBC RBC Hgb Hct MCV MCH RDW Plt Count Lymph % (Auto) Seg Neutrophils % Seg Neuts % (Manual) Lymphocytes % (Manual) Nucleated RBC % Seg Neutrophils # Lymphocytes # (Manual) ABG pO2 ABG HCO3 ABG Base Excess ABG Hemoglobin VBG pH Oxyhemoglobin Sodium Potassium Chloride Carbon Dioxide BUN Creatinine Glucose POC Glucose 144 H 226 H 140 H Hemoglobin A1c Lactic Acid Calcium Phosphorus Magnesium Alkaline Phosphatase C-Reactive Protein Total Protein Albumin Vancomycin Trough Crossmatch 05/11/21 05/11/21 05/12/21 23:54 Unknown 10:01 WBC RBC 2.65 L Hgb 7.0 L Hct 22.1 L MCV MCH 26 L RDW 15.9 H Plt Count 518 H Lymph % (Auto) Seg Neutrophils % Seg Neuts % (Manual) Lymphocytes % (Manual) Nucleated RBC % Seg Neutrophils # Lymphocytes # (Manual) ABG pO2 ABG HCO3 ABG Base Excess ABG Hemoglobin VBG pH Oxyhemoglobin Sodium Potassium Chloride Carbon Dioxide BUN Creatinine Glucose POC Glucose 116 H 237 H Hemoglobin A1c Lactic Acid Calcium Phosphorus Magnesium Alkaline Phosphatase C-Reactive Protein Total Protein Albumin Vancomycin Trough Crossmatch Allied health notes reviewed: nursing
--- NOTE | 2021-05-12 13:16 | Progress Note ---
Assessment and Plan Assessment and Plan Assessment and plan: This is a 51-year-old female with DM, noncompliance, obesity, arthritis and right knee surgery admitted for DKA, oropharyngeal dysphagia on tube feeding Speech therapist following, patient has septic arthritis and severe sepsis on long-term antibiotics Rocephin total 6 weeks., Anemia with 6.8 hemoglobin, received 1 unit PRBC yesterday, this morning hemoglobin 6.8, will recheck Hb and transfuse additional PRBC if needed -Anemia; Hb 6.8-6.9 Received 1 unit PRBC yesterday 05/05/2021 This morning Hb 6.9, transfuse additional 1 unit PRBC today Check stool for occult blood, monitor H&H 05/11 h/h--7.0/22.1 --Oropharyngeal dysphagia; Patient is on tube feeding till recently Now able to eat Patient could not be discharged before because of dysphagia and tube feeding Patient to be placed --Septic arthritis; knee; Ortho is planning knee/synovial debridement 04/30/2021;s/p arthrocentesis 05/03/2021 s/p Incision and drainage followed by arthroscopic exam of the right knee Continue antibiotics per ID total 6 weeks -- Sepsis, group B Streptococcus bacteremia, h/o right septic arthritis -Infectious disease consulted, appreciate recommendations -ABX therapy per ID: Ceftriaxone 2 g every 24 hours -Right knee x-ray shows large joint effusion s/p arthrocentesis Positive synovial fluid cultures, ID recommended total 6 weeks of Rocephin --Acute metabolic encephalopathy (improved significantly) Patient is more alert and awake, supportive care -Echocardiogram shows mildly dilated right heart chamber, mild to moderate TR, moderate pulmonary hypertension, RVSP 50-55, LVEF 45-50 --Respiratory: Acute hypoxic respiratory failure Nasal cannula oxygen, intermittent BiPAP Home O2 evaluation --Severe protein calorie malnutrition --Hypoalbuminemia, albumin 1.7 Dietitian/campaign marketing manager following Continue tube feeding, nutrition supplements Supportive care -- Hypernatremia (resolved) Closely monitor electrolytes --Leukocytosis/trending down Secondary to sepsis, continue antibiotics and supportive care Closely monitor --S/p DKA, h/o uncontrolled DM/present on admission -Hemoglobin A1c 18.3 Blood sugars moderate control -Avoid hypoglycemia Accu-Chek sliding scale coverage tube feeding Glucerna --DVT prophylaxis Subcu Lovenox --Full CODE STATUS Discharge planning issues Patient is able to eat Physical therapy Placement issues are Outpatient antibiotic therapy To discuss with case management Subjective Date of service: 05/12/21 Principal diagnosis: HAGMA; DKA; AMS; Obesity; Osteoarthritis; Hypercalcemia Interval history: Brief history and daily hospital course This is a 51-year-old female with DM, OA, medication noncompliance, obesity who presented to emergency department on 04/23 with complaints of weakness, elevated blood glucose levels, nausea, polydipsia, polyuria and diminished oral intake over the past week with worsening symptoms over the past 2 days. Patient acknowledges noncompliance with oral antihyperglycemic therapy. Patient was seen and evaluated in the emergency department and found to have lab work consistent with diabetic ketoacidosis, metabolic encephalopathy, metabolic acido sis and volume depletion. Patient was admitted to the hospital service to the ICU initiated DKA protocol with CCM consult. 04/24/21- Patient remains on DKA protocol. Still very lethargic this am, fol lowing simple commands. Rt. knee wound and swelling noted, and nursing staff also reported thick, white vaginal discharge. C/f sepsis, blood culture ordered, this am UA noted. Will start patient on PO difflucan for possible yeast infection, pending culture data. Anion GAP is still 18 this am, will continue DKA protocol for now. Continue to monitor electrolytes, serial BMP ordered. 04/25/21- Patient appears to be in distress this am, now on 3L NC. Lactic acidosis worsen overnight, X1L LR bolus adminstered. Ordered placed for stat ABGs. Blood culture growing GPC 3/4 bottles, patient remains afebrile with no leukocytosis. IV abx was escalated, ID consulted. Ortho consult is still pending, order placed for XR of the Rt. knee. Given patient worsen condition and high anio, gap, will continue insulin gtt for now. Low K and mg was repleted. Continue serial BMP,mg, and phosp 04/26/21- Patient appears more alert and awake this am, talkative, and following commands. Remains on DKA protocol, gap is closedX2, will transition patient to SSI and basal insulin and initiate enteral nutrition. Patient remains afebrile overnight, continue IV Abx per ID. 04/27/21- TASHA overnight. Patient mentation continue to improve. Worsening hyperglycemia, patient is tolerating TF. 70/30 added BID and SSI was adjusted to high dose Q4hrs. D/W CCM patient is stable for transfer to [facility] 04/28/21- Patient continue to improve. Remains drowsy this am, however, easily arousable. Now on 4L NC, still requiring Q4hrs NT suction due to increased secretions and weak cough. Continue to wean O2 supplement as tolerated, F/U CXR in the am. Continue IV Abx per ID. 04/29: Patient is awake and alert with strong cough and able to clear own airway. Ortho consult for right knee aspiration pending. 04/30: No acute events reported overnight, patient will be transferred to the floor. MR of right knee ordered. 05/01; patient had arthrocentesis 05/02; ID recommended total 6 weeks of Rocephin, case management to assist with antibiotics 05/02; patient is febrile, sepsis and positive cultures, currently on Rocephin, ID following 05/03; patient remains on tube feeding, speech therapist has not cleared for oral nutrition, aspiration risk Septic arthritis awaiting synovial debridement knee joint 05/04; blood sugars are uncontrolled Lantus insulin was stopped due to surgical procedure yesterday, Resumed Novolin 70/30, closely monitor and adjust the dose as needed 05/05; patient received 1 unit of PRBC yesterday, a.m. hemoglobin remains 6.8 after transfusion, recheck H&H, transfuse additional PRBC Patient remains on tube feedings, speech therapy following, on long-term antibiotics for her septic knee total 6 weeks 05/06/2021 Patient remains on tube feedings Speech therapy 6 weeks of antibiotics for septic arthritis If patient can swallow and tube feedings are discontinued--- patient can have IV antibiotics as outpatient Not ready for discharge 05/07: Patient seen and examined, remains quit ill, NG tube still in place hemoglobin is still 6.9 despite second unit transfusion done. Hard sure where t his is coming from unsure why the patient is not able to eat. Will obtain MRI of the head to further evaluate and also obtain stool for occult blood to further elicit. In the meantime this is a painless delay in discharge and once that is rectified placement is already being pursued by case management. Dressing in the knee is in place. 05/08/2021 NG [address] still in place 05/09/2021 NG tube still in place 05/10/2021 Patient more alert and oriented NG tube still in place 05/11/2021 Patient is more alert and oriented NG tube is taken out 05/12/2021 Patient is able to eat Patient is alert and oriented Patient is ready for discharge and outpatient IV antibiotics for 4 to 5 weeks. Objective - Constitutional Vitals: Vital Signs - 12hr 05/12/21 05/12/21 04:28 11:37 Temperature 99.5 F Pulse Rate 107 H Respiratory 20 Rate Blood Pressure 122/69 O2 Sat by Pulse 87 95 Oximetry General appearance: Present: no acute distress, well-nourished - EENT Eyes: PERRL, EOM intact ENT: hearing intact, clear oral mucosa Ears: bilateral: normal - Neck Neck: supple, normal ROM - Respiratory Respiratory effort: normal Respiratory: bilateral: CTA - Breasts Breasts: normal - Cardiovascular Heart rate: 78 Rhythm: regular Heart Sounds: Present: S1 & S2. Absent: gallop, rub Extremities: pulses intact, No edema, normal color, Full ROM - Gastrointestinal General gastrointestinal: Present: soft, non-tender, non-distended, normal bowel sounds - Genitourinary Female genitourinary: normal - Integumentary Integumentary: clear, warm, dry - Musculoskeletal Musculoskeletal: 1, strength equal bilaterally - Neurologic Neurologic: moves all extremities - Psychiatric Psychiatric: memory intact, appropriate mood/affect, intact judgment & insight - Allied health notes Allied health notes reviewed: nursing, case management - Labs CBC & Chem 7: 05/11/21 Unknown 05/09/21 07:34 Labs: Abnormal lab results 05/11/21 05/11/21 05/12/21 Range/Units 18:11 23:54 10:01 POC Glucose 140 H 116 H 237 H (70-105) mg/dL 05/12/21 Range/Units 13:01 POC Glucose 227 H (70-105) mg/dL HEART Score - HEART Score Troponin: Troponin T < 0.010 ng/mL (0.00-0.029) 04/23/21 10:33
[2021-05-12] MEDS: MORPHINE 2 MG/1 ML INJ IV PRN (16:16)
[2021-05-12] MEDS: SENNOSIDES 8.6 MG TAB PO SCH (22:26)
[2021-05-13] MEDS: FREE WATER PO SCH ×6 (00:27→21:22)
[2021-05-13] MEDS: INSULIN LISPRO 100 UNIT/ML SUB-Q SCH ×4 (00:27→17:30)
[2021-05-13] MEDS: MORPHINE 2 MG/1 ML INJ IV PRN (02:20)
[2021-05-13] MEDS: METOCLOPRAMIDE 10 MG/10 ML ORAL LIQD FEEDTUBE SCH ×4 (07:30→21:25)
[2021-05-13] MEDS: INSULIN NPH/REGULAR 70/30 INJ SUB-Q SCH ×2 (08:00→17:30)
[2021-05-13] MEDS: FAMOTIDINE 20 MG TAB FEEDTUBE SCH (09:06)
[2021-05-13 09:42] LABS: Hematocrit 20.7 % (30.3-42.9); Hemoglobin 6.8 gm/dl (10.1-14.3); Mean Corpuscular HGB Conc 33 % (30-34); Mean Corpuscular Volume 83 fl (79-97); Platelet Count 535 K/mm3 (140-440); Red Blood Count 2.49 M/mm3 (3.65-5.03); Red Cell Distribution Width 15.8 % (13.2-15.2)
[2021-05-13 09:46] LABS: BUN/Creatinine Ratio 28; Blood Urea Nitrogen 25 mg/dL (7-17); Calcium 7.8 mg/dL (8.4-10.2); Hemolysis Index 0
[2021-05-13] MEDS ORDERED: SODIUM CHLORIDE 0.9% 500 ML 500 ML IV NR (10:40)
--- NOTE | 2021-05-13 11:04 | Progress Note ---
Assessment and Plan Cultures: 04/24/2021 Blood culture: GBS Blood culture 04/26/2021: No growth 04/30/2021 R knee synovial fluid culture: Group B Streptococcus 05/03/2021 right knee OR culture: No growth A/P: 51 yo F with DM2, HTN, morbid obesity presented with sepsis #Acute sepsis: secondary to group B streptococcus bacteremia, source is R knee. #Group B streptococcus bacteremia secondary to R knee septic arthritis: Reports a history of previous right knee septic arthritis and has been treated with antibiotics at least twice in the past. X-ray shows large joint effusion. TTE without any evidence of valvular vegetations/endocarditis. Arthrocentesis culture also positive. Status post I&D followed by arthroscopic examination of right knee on 05/03/2021, as per operative note, "entered the joint proper with return of copious amounts of purulent material" and "significant cartilage degeneration from repeated infections". Will need a longer ~6 weeks course of IV abx after surgery due to her history of recurrence / chronicity and possibility of osteomyelitis, extensive cartilage degeneration. #DM2: tight glycemic control for best outcomes. Recs: -Continues to have low-grade fevers. Follow-up ortho recs regarding CT R leg and knee there seems to be a collection in the right knee anterior to the femur with some air bubbles, may represent residual infection v/s related to recent surgery. Given ongoing intermittent fevers, suggestive of residual infection, she might need additional surgery, defer to orthopedics -continue high dose IV Ancef while inpatient, upon discharge, continue IV Ceftriaxone ending 06/14/2021, CM orders have already been placed Holly Leroy MD, [facility] O: [phone] F: [phone] Subjective Principal diagnosis: HAGMA; DKA; AMS; Obesity; Osteoarthritis; Hypercalcemia Interval history: No new complaints. Continues to have low-grade fevers. Objective - Exam Narrative Exam: Physical Exam: Constitutional: Alert, cooperative. Head, Ears, Nose: Normocephalic, atraumatic. External ears, nose normal Eyes: Conjunctivae/corneas clear. No icterus. No ptosis. Neck: Supple, no meningeal signs Cardiovascular: S1, S2 + Respiratory: Good air entry, clear to auscultation bilaterally GI: Soft, non-tender; bowel sounds normal. No peritoneal signs Musculoskeletal: Right knee with dressing +, swelling and tenderness + Skin: No rash or abscess Hem/Lymphatic: No palpable cervical or supraclavicular nodes. No lymphangitis Psych: Mood ok. Affect normal Neurological: Awake, alert, oriented. No gross abnormality - Constitutional Vitals: Vital Signs Temp Pulse Resp BP Pulse Ox 99.3 F 101 H 20 136/72 96 05/13/21 05:42 05/13/21 05:42 05/13/21 05:42 05/13/21 05:42 05/13/21 10:00 Temperature -Last 24 Hours Temperature 99.3 F Temperature 99.7 F Temperature 100.1 F - Labs CBC & Chem 7: 05/13/21 09:16 05/13/21 09:16 Labs: Abnormal lab results 05/12/21 05/12/21 05/13/21 Range/Units 13:01 17:23 05:40 RBC (3.65-5.03) M/mm3 Hgb (10.1-14.3) gm/dl Hct (30.3-42.9) % MCH (28-32) pg RDW (13.2-15.2) % Plt Count (140-440) K/mm3 Sodium (137-145) mmol/L Chloride (98-107) mmol/L BUN (7-17) mg/dL Glucose (65-100) mg/dL POC Glucose 227 H 158 H 126 H (70-105) mg/dL Calcium (8.4-10.2) mg/dL 05/13/21 05/13/21 Range/Units 09:16 09:16 RBC 2.49 L (3.65-5.03) M/mm3 Hgb 6.8 L (10.1-14.3) gm/dl Hct 20.7 L (30.3-42.9) % MCH 27 L (28-32) pg RDW 15.8 H (13.2-15.2) % Plt Count 535 H (140-440) K/mm3 Sodium 135 L (137-145) mmol/L Chloride 97.0 L (98-107) mmol/L BUN 25 H (7-17) mg/dL Glucose 197 H (65-100) mg/dL POC Glucose (70-105) mg/dL Calcium 7.8 L (8.4-10.2) mg/dL
--- NOTE | 2021-05-13 11:58 | XRay Report ---
CHEST 1 VIEW 05/13/2021 10:51 AM INDICATION / CLINICAL INFORMATION: picc line position. COMPARISON: None available. FINDINGS: SUPPORT DEVICES: Right PICC line is satisfactory in position. NG tube extends within the stomach HEART / MEDIASTINUM: No significant abnormality. LUNGS / PLEURA: Increased interstitial prominence in bilateral lungs. Elevation right hemidiaphragm w ith right lower lung atelectasis No pneumothorax. Signer Name: Kwaku Granados MD Signed: 05/13/2021 11:54 AM Workstation Name: [email or web address]
--- NOTE | 2021-05-13 12:05 | Progress Note ---
Assessment and Plan Assessment and plan: This is a 51-year-old female with DM, noncompliance, obesity, arthritis and right knee surgery admitted for DKA, oropharyngeal dysphagia on tube feeding Speech therapist following, patient has septic arthritis and severe sepsis on long-term antibiotics Rocephin total 6 weeks., Anemia with 6.8 hemoglobin, received 1 unit PRBC yesterday, this morning hemoglobin 6.8, will recheck Hb and transfuse additional PRBC if needed -Anemia; Hb 6.8-6.9 Received 1 unit PRBC yesterday 05/05/2021 This morning Hb 6.9, transfuse additional 1 unit PRBC today Check stool for occult blood, monitor H&H 05/11 h/h--7.0/22.1 --Oropharyngeal dysphagia; Patient is on tube feeding till recently Now able to eat Patient could not be discharged before because of dysphagia and tube feeding Patient to be placed --Septic arthritis; knee; Ortho is planning knee/synovial debridement 04/30/2021;s/p arthrocentesis 05/03/2021 s/p Incision and drainage followed by arthroscopic exam of the right knee Continue antibiotics per ID total 6 weeks -- Sepsis, group B Streptococcus bacteremia, h/o right septic arthritis -Infectious disease consulted, appreciate recommendations -ABX therapy per ID: Ceftriaxone 2 g every 24 hours -Right knee x-ray shows large joint effusion s/p arthrocentesis Positive synovial fluid cultures, ID recommended total 6 weeks of Rocephin --Acute metabolic encephalopathy (improved significantly) Patient is more alert and awake, supportive care -Echocardiogram shows mildly dilated right heart chamber, mild to moderate TR, moderate pulmonary hypertension, RVSP 50-55, LVEF 45-50 --Respiratory: Acute hypoxic respiratory failure Nasal cannula oxygen, intermittent BiPAP Home O2 evaluation --Severe protein calorie malnutrition --Hypoalbuminemia, albumin 1.7 Dietitian/planning advisor following Continue tube feeding, nutrition supplements Supportive care -- Hypernatremia (resolved) Closely monitor electrolytes --Leukocytosis/trending down Secondary to sepsis, continue antibiotics and supportive care Closely monitor --S/p DKA, h/o uncontrolled DM/present on admission -Hemoglobin A1c 18.3 Blood sugars moderate control -Avoid hypoglycemia Accu-Chek sliding scale coverage tube feeding Glucerna --DVT prophylaxis Subcu Lovenox --Full CODE STATUS Discharge planning issues Patient is able to eat Physical therapy Placement issues are Outpatient antibiotic therapy To discuss with case management Subjective Date of service: 05/12/21 Principal diagnosis: HAGMA; DKA; AMS; Obesity; Osteoarthritis; Hypercalcemia Interval history: Brief history and daily hospital course This is a 51-year-old female with DM, OA, medication noncompliance, obesity who presented to emergency department on 04/23 with complaints of weakness, elevated blood glucose levels, nausea, polydipsia, polyuria and diminished oral intake over the past week with worsening symptoms over the past 2 days. Patient acknowledges noncompliance with oral antihyperglycemic therapy. Patient was s een and evaluated in the emergency department and found to have lab work consistent with diabetic ketoacidosis, metabolic encephalopathy, metabolic acidosis and volume depletion. Patient was admitted to the hospital service to the ICU initiated DKA protocol with CCM consult. 04/24/21- Patient remains on DKA protocol. Still very lethargic this am, following simple commands. Rt. knee wound and swelling noted, and nursing staff also reported thick, white vaginal discharge. C/f sepsis, blood culture ordered, this am UA noted. Will start patient on PO difflucan for possible yeast infection, pending culture data. Anion GAP is still 18 this am, will continue DKA protocol for now. Continue to monitor electrolytes, serial BMP ordered. 04/25/21- Patient appears to be in distress this am, now on 3L NC. Lactic acidosis worsen overnight, X1L LR bolus adminstered. Ordered placed for stat ABGs. Blood culture growing GPC 3/4 bottles, patient remains afebrile with no leukocytosis. IV abx was escalated, ID consulted. Ortho consult is still pending, order placed for XR of the Rt. knee. Given patient worsen condition and high anio, gap, will continue insulin gtt for now. Low K and mg was repleted. C ontinue serial BMP,mg, and phosp 04/26/21- Patient appears more alert and awake this am, talkative, and following commands. Remains on DKA protocol, gap is closedX2, will transition patient to SSI and basal insulin and initiate enteral nutrition. Patient remains afebrile overnight, continue IV Abx per ID. 04/27/21- TASHA overnight. Patient mentation continue to improve. Worsening hyperglycemia, patient is tolerating TF. 70/30 added BID and SSI was adjusted to high dose Q4hrs. D/W CCM patient is stable for transfer to [facility] 04/28/21- Patient continue to improve. Remains drowsy this am, however, easily arousable. Now on 4L NC, still requiring Q4hrs NT suction due to increased secretions and weak cough. Continue to wean O2 supplement as tolerated, F/U CXR in the am. Continue IV Abx per ID. 04/29: Patient is awake and alert with strong cough and able to clear own airway. Ortho consult for right knee aspiration pending. 04/30: No acute events reported overnight, patient will be transferred to the floor. MR of right knee ordered. 05/01; patient had arthrocentesis 05/02; ID recommended total 6 weeks of Rocephin, case management to assist with antibiotics 05/02; patient is febrile, sepsis and positive cultures, currently on Rocephin, ID following 05/03; patient remains on tube feeding, speech therapist has not cleared for oral nutrition, aspiration risk Septic arthritis awaiting synovial debridement knee joint 05/04; blood sugars are uncontrolled Lantus insulin was stopped due to surgical procedure yesterday, Resumed Novolin 70/30, closely monitor and adjust the dose as needed 05/05; patient received 1 unit of PRBC yesterday, a.m. hemoglobin remains 6.8 after transfusion, recheck H&H, transfuse additional PRBC Patient remains on tube feedings, speech therapy following, on long-term antibiotics for her septic knee total 6 weeks 05/06/2021 Patient remains on tube feedings Speech therapy 6 weeks of antibiotics for septic arthritis If patient can swallow and tube feedings are discontinued--- patient can have IV antibiotics as outpatient Not ready for discharge 05/07: Patient seen and examined, remains quit ill, NG tube still in place hemoglobin is still 6.9 despite second unit transfusion done. Hard sure where this is coming from unsure why the patient is not able to eat. Will obtain MRI of the head to further evaluate and also obtain stool for occult blood to further elicit. In the meantime this is a painless delay in discharge and once that is rectified placement is already being pursued by case management. Dressing in the knee is in place. 05/08/20[address] still in [address] 05/09/2021 NG tube still in place 05/10/2021 Patient more alert and oriented NG tube still in place 05/11/2021 Patient is more alert and oriented NG tube is taken out 05/12/2021 Patient is able to eat Patient is alert and oriented Patient is ready for discharge and outpatient IV antibiotics for 4 to 5 weeks. 05/13/21 Anemia with Hgb 6.8. Transfuse 1 Unit PRBC History Interval history: PICC line malfunction Anemia with Hgb 6.8 Hospitalist Physical - Physical exam Narrative exam: Gen: Not in acute distress, morbidly obese, Neck:supple, No JVD Lungs:clear to auscultation bilaterally, no crackles, no wheeze Heart: S1 and S2 reg, no murmurs, rubs or gallop Abd:soft, non tender, non distended, normal bowel sounds Ext:No edema, no clubbing, no cyanosis, PICC line right Neuro:Awake,alert - Constitutional Vitals: Temp Pulse Resp BP Pulse Ox 99.3 F 101 H 20 136/72 96 05/13/21 05:42 05/13/21 05:42 05/13/21 05:42 05/13/21 05:42 05/13/21 10:00 General appearance: Present: no acute distress HEART Score - HEART Score Troponin: Troponin T < 0.010 ng/mL (0.00-0.029) 04/23/21 10:33 Results - Labs CBC & Chem 7: 05/13/21 09:16 05/13/21 09:16 Labs: Laboratory Last Values WBC 9.9 K/mm3 (4.5-11.0) 05/13/21 09:16 RBC 2.49 M/mm3 (3.65-5.03) L 05/13/21 09:16 Hgb 6.8 gm/dl (10.1-14.3) L 05/13/21 09:16 Hct 20.7 % (30.3-42.9) L 05/13/21 09:16 MCV 83 fl (79-97) 05/13/21 09:16 MCH 27 pg (28-32) L 05/13/21 09:16 MCHC 33 % (30-34) 05/13/21 09:16 RDW 15.8 % (13.2-15.2) H 05/13/21 09:16 Plt Count 535 K/mm3 (140-440) H 05/13/21 09:16 Lymph % (Auto) 22.8 % (13.4-35.0) 05/07/21 Unknown [place] % (Auto) 4.4 % (0.0-7.3) 05/07/21 Unknown Eos % (Auto) 1.2 % (0.0-4.3) 05/07/21 Unknown Baso % (Auto) 0.9 % (0.0-1.8) 05/07/21 Unknown Lymph # (Auto) 1.7 K/mm3 (1.2-5.4) 05/07/21 Unknown [place] # (Auto) 0.3 K/mm3 (0.0-0.8) 05/07/21 Unknown Eos # (Auto) 0.1 K/mm3 (0.0-0.4) 05/07/21 Unknown Baso # (Auto) 0.1 K/mm3 (0.0-0.1) 05/07/21 Unknown Add Manual Diff Complete 04/25/21 08:10 Total Counted 100 04/25/21 08:10 Seg Neutrophils % 70.7 % (40.0-70.0) H 05/07/21 Unknown Seg Neuts % (Manual) 33.0 % (40.0-70.0) L 04/25/21 08:10 Band Neutrophils % 23.0 % 04/25/21 08:10 Lymphocytes % (Manual) 19.0 % (13.4-35.0) 04/25/21 08:10 Reactive Lymphs % (Man) 1.0 % 04/25/21 08:10 Monocytes % (Manual) 1.0 % (0.0-7.3) 04/25/21 08:10 Eosinophils % (Manual) 1.0 % (0.0-4.3) 04/25/21 08:10 Metamyelocytes % 3.0 % 04/23/21 10:33 Myelocytes % 22.0 % 04/25/21 08:10 Nucleated RBC % Not Reportable 04/25/21 08:10 Seg Neutrophils # 5.4 K/mm3 (1.8-7.7) 05/07/21 Unknown Seg Neutrophils # Man 1.9 K/mm3 (1.8-7.7) 04/25/21 08:10 Band Neutrophils # 1.3 K/mm3 04/25/21 08:10 Lymphocytes # (Manual) 1.1 K/mm3 (1.2-5.4) L 04/25/21 08:10 Abs React Lymphs (Man) 0.1 K/mm3 04/25/21 08:10 Monocytes # (Manual) 0.1 K/mm3 (0.0-0.8) 04/25/21 08:10 Eosinophils # (Manual) 0.1 K/mm3 (0.0-0.4) 04/25/21 08:10 Basophils # (Manual) 0.0 K/mm3 (0.0-0.1) 04/25/21 08:10 Metamyelocytes # 0.0 K/mm3 04/25/21 08:10 Myelocytes # 1.3 K/mm3 04/25/21 08:10 Promyelocytes # 0.0 K/mm3 04/25/21 08:10 Blast Cells # 0.0 K/mm3 04/25/21 08:10 WBC Morphology Not Reportable 04/25/21 08:10 Hypersegmented Neuts Not Reportable 04/25/21 08:10 Hyposegmented Neuts Not Reportable 04/25/21 08:10 Hypogranular Neuts Not Reportable 04/25/21 08:10 Smudge Cells Not Reportable 04/25/21 08:10 Toxic Granulation Not Reportable 04/25/21 08:10 Toxic Vacuolation Not Reportable 04/25/21 08:10 Dohle Bodies Not Reportable 04/25/21 08:10 Pelger-Huet Anomaly Not Reportable 04/25/21 08:10 Thierry Rods Not Reportable 04/25/21 08:10 Platelet Estimate Consistent w auto 04/25/21 08:10 Clumped Platelets Not Reportable 04/25/21 08:10 Plt Clumps, EDTA Not Reportable 04/25/21 08:10 Large Platelets Not Reportable 04/25/21 08:10 Giant Platelets Not Reportable 04/25/21 08:10 Platelet Satelliting Not Reportable 04/25/21 08:10 Plt Morphology Comment Not Reportable 04/25/21 08:10 RBC Morphology Not Reportable 04/25/21 08:10 Dimorphic RBCs Not Reportable 04/25/21 08:10 Polychromasia Not Reportable 04/25/21 08:10 Hypochromasia 1+ 04/25/21 08:10 Poikilocytosis Not Reportable 04/25/21 08:10 Anisocytosis Not Reportable 04/25/21 08:10 Microcytosis Not Reportable 04/25/21 08:10 Macrocytosis Not Reportable 04/25/21 08:10 Spherocytes Not Reportable 04/25/21 08:10 Pappenheimer Bodies Not Reportable 04/25/21 08:10 Sickle Cells Not Reportable 04/25/21 08:10 Target Cells Not Reportable 04/25/21 08:10 Tear Drop Cells Not Reportable 04/25/21 08:10 Ovalocytes Not Reportable 04/25/21 08:10 Helmet Cells Not Reportable 04/25/21 08:10 [place] Bodies Not Reportable 04/25/21 08:10 [place] Rings Not Reportable 04/25/21 08:10 [place] Cells Not Reportable 04/25/21 08:10 Bite Cells Not Reportable 04/25/21 08:10 Crenated Cell Not Reportable 04/25/21 08:10 Elliptocytes Not Reportable 04/25/21 08:10 Acanthocytes (Spur) Not Reportable 04/25/21 08:10 Rouleaux Not Reportable 04/25/21 08:10 Hemoglobin C Crystals Not Reportable 04/25/21 08:10 Schistocytes Not Reportable 04/25/21 08:10 Malaria parasites Not Reportable 04/25/21 08:10 Juan Bodies Not Reportable 04/25/21 08:10 Hem Pathologist Commnt No 04/25/21 08:10 ABG pH 7.426 pH Units (7.350-7.450) 04/25/21 11:20 ABG pCO2 25.3 mm Hg 04/25/21 11:20 ABG pO2 73.2 mm Hg (80.0-90.0) L 04/25/21 11:20 ABG HCO3 16.2 mmol/L (20.0-26.0) L 04/25/21 11:20 ABG O2 Saturation 96.9 % (95.0-99.0) 04/25/21 11:20 ABG O2 Content 11.6 (0.0-44) 04/25/21 11:20 ABG Base Excess -7.1 mmol/L (-2.0-3.0) L 04/25/21 11:20 ABG Hemoglobin 8.7 gm/dl (12.0-16.0) L 04/25/21 11:20 ABG Carboxyhemoglobin 1.6 % (0.0-5.0) 04/25/21 11:20 ABG Methemoglobin 0.6 % (0.0-1.5) 04/25/21 11:20 VBG pH 7.180 (7.320-7.420) L* 04/23/21 10:33 Oxyhemoglobin 94.8 % (95.0-99.0) L 04/25/21 11:20 FiO2 28 % 04/25/21 11:20 Sodium 135 mmol/L (137-145) L 05/13/21 09:16 Potassium 4.2 mmol/L (3.6-5.0) 05/13/21 09:16 Chloride 97.0 mmol/L (98-107) L 05/13/21 09:16 Carbon Dioxide 25 mmol/L (22-30) 05/13/21 09:16 Anion Gap 17 mmol/L 05/13/21 09:16 BUN 25 mg/dL (7-17) H 05/13/21 09:16 Creatinine 0.9 mg/dL (0.6-1.2) 05/13/21 09:16 Estimated GFR > 60 ml/min 05/13/21 09:16 BUN/Creatinine Ratio 28 % 05/13/21 09:16 Glucose 197 mg/dL (65-100) H 05/13/21 09:16 POC Glucose 231 mg/dL (70-105) H 05/13/21 11:50 Hemoglobin A1c 18.3 % (4-6) H 04/24/21 04:16 Lactic Acid 1.70 mmol/L (0.7-2.0) 04/26/21 05:02 Uric Acid 7.5 mg/dL (3.5-7.6) 04/24/21 12:14 Calcium 7.8 mg/dL (8.4-10.2) L 05/13/21 09:16 Phosphorus 4.50 mg/dL (2.5-4.5) 04/30/21 04:41 Magnesium 2.10 mg/dL (1.7-2.3) 05/03/21 07:05 Total Bilirubin 0.50 mg/dL (0.1-1.2) 04/30/21 04:41 AST 12 units/L (5-40) 04/30/21 04:41 ALT 7 units/L (7-56) 04/30/21 04:41 Alkaline Phosphatase 171 units/L (35-129) H 04/30/21 04:41 Ammonia 37.0 umol/L (25-60) 04/23/21 10:33 Total Creatine Kinase 83 units/L (30-135) 04/23/21 10:33 Troponin T < 0.010 ng/mL (0.00-0.029) 04/23/21 10:33 C-Reactive Protein 24.30 mg/dL (0.00-1.30) H 04/24/21 18:24 Total Protein 6.1 g/dL (6.3-8.2) L 04/30/21 04:41 Albumin 1.4 g/dL (3.9-5) L 04/30/21 04:41 Albumin/Globulin Ratio 0.3 % 04/30/21 04:41 Procalcitonin 21.10 ng/mL (<0.15) 04/24/21 12:14 TSH 1.400 mlU/mL (0.270-4.200) 04/23/21 10:33 Urine Color Katie (Yellow) 04/27/21 16:16 Urine Turbidity Cloudy (Clear) 04/27/21 16:16 Urine pH 5.0 (5.0-7.0) 04/27/21 16:16 Ur Specific [place] 1.014 (1.003-1.030) 04/27/21 16:16 Urine Protein <15 mg/dl mg/dL (Negative) 04/27/21 16:16 Urine Glucose (UA) >=500 mg/dL (Negative) 04/27/21 16:16 Urine Ketones Neg mg/dL (Negative) 04/27/21 16:16 Urine Blood Neg (Negative) 04/27/21 16:16 Urine Nitrite Neg (Negative) 04/27/21 16:16 Urine Bilirubin Neg (Negative) 04/27/21 16:16 Urine Urobilinogen 2.0 mg/dL (<2.0) 04/27/21 16:16 Ur Leukocyte Esterase Neg (Negative) 04/27/21 16:16 Urine WBC (Auto) 1.0 /HPF (0.0-6.0) 04/27/21 16:16 Urine RBC (Auto) 1.0 /HPF (0.0-6.0) 04/27/21 16:16 U Epithel Cells (Auto) < 1.0 /HPF (0-13.0) 04/24/21 08:40 Urine Bacteria (Auto) 1+ /HPF (Negative) 04/27/21 16:16 Amorphous Crystals Few 04/27/21 16:16 Urine Yeast (Budding) 3+ /HPF 04/27/21 16:16 Vancomycin Trough 38.2 ug/mL (5.0-20.0) H 04/26/21 19:27 Coronavirus (PCR) Negative (Negative) 04/25/21 Unknown Blood Type A POSITIVE 05/09/21 02:57 Antibody Screen Negative 05/09/21 02:57 Crossmatch See Detail 05/09/21 02:57 Microbiology: Microbiology 05/12/21 Unknown Stool Stool Occult Blood (AZUL) - Final Sanchez/IV: Voiding Method Indwelling Catheter Active Medications - Current Medications Current Medications: Generic Name Dose Route Start Last Admin Trade Name Freq PRN Reason Stop Dose Admin Acetaminophen 650 mg 04/23/21 11:54 05/10/21 23:34 Acetaminophen 325 Mg Tab PO 650 mg Q6H PRN Administration Pain MILD(1-3)/Fever >100.5/SMITH Albuterol 2.5 mg 05/02/21 12:56 05/07/21 04:22 Albuterol 2.5 Mg/3 Ml Nebu IH 2.5 mg Q4HRT PRN Administration Shortness Of Breath Lipase/Protease/Amylase 1 each 05/06/21 16:05 Lipase 10,500/Protease 25,000/Amylase 43,750 (Units) Dr Rodriguez FEEDTUBE PRN PRN For Clogged Feeding Tube Dextrose 50 ml 04/26/21 14:00 Dextrose 50% In Water (25gm) 50 Ml Syringe IV Q30MIN PRN Hypoglycemia Protocol Famotidine 20 mg 04/29/21 10:00 05/13/21 09:06 Famotidine 20 Mg Tab FEEDTUBE 20 mg DAILY AMIRA Administration Hydromorphone HCl 0.5 mg 04/23/21 11:54 05/12/21 01:19 Hydromorphone 1 Mg/1 Ml Inj IV 0.5 mg Q23H PRN Administration Pain , Severe (7-10) Cefazolin Sodium 2 gm/ Sodium 100 mls @ 200 mls/hr 05/02/21 14:00 05/13/21 09:05 Chloride IV 06/14/21 20:29 200 mls/hr Q6H AMIRA Administration Protocol Sodium Chloride 500 mls @ 0 mls/hr 05/13/21 10:40 Nacl 0.9% 500 Ml IV 05/13/21 20:00 ONCE NR As Directed Insulin Human Isoph/Insulin Regular 48 unit 05/02/21 09:30 05/13/21 08:00 Insulin Nph/Regular 70/30 Inj SUB-Q 48 unit BIDDIAB AMIRA Administration Insulin Human Lispro 0 unit 04/29/21 12:00 05/13/21 12:03 Insulin Lispro 100 Unit/Ml SUB-Q 1 unit Q6HR AMIRA Administration Protocol Metoclopramide HCl 5 mg 05/08/21 08:00 05/13/21 11:30 Metoclopramide 10 Mg/10 Ml Oral Liqd FEEDTUBE 5 mg ACHS AMIRA Administration Morphine Sulfate 2 mg 05/03/21 18:59 05/13/21 02:20 Morphine 2 Mg/1 Ml Inj IV 2 mg Q4H PRN Administration Pain, Moderate (4-6) Morphine Sulfate 4 mg 05/03/21 18:59 Morphine 4 Mg/1 Ml Inj IV Q4H PRN Pain , Severe (7-10) Oxycodone/Acetaminophen 1 tab 04/23/21 11:54 05/10/21 17:23 Oxycodone /Acetaminophen 5-325mg Tab PO 1 tab Q16H PRN Administration Pain, Moderate (4-6) Senna 17.2 mg 04/25/21 22:00 05/12/21 22:26 Sennosides 8.6 Mg Tab PO 17.2 mg QHS AMIRA Administration Simple Syrup 15 ml 05/06/21 16:05 Simple Syrup 15 Ml FEEDTUBE PRN PRN Hypoglycemia Simple Syrup 30 ml 05/06/21 16:05 Simple Syrup 15 Ml FEEDTUBE PRN PRN Hypoglycemia Sodium Bicarbonate 325 mg 05/06/21 16:05 Sodium Bicarbonate 325 Mg Tab FEEDTUBE PRN PRN For Clogged Feeding Tube Sodium Chloride 10 ml 04/23/21 22:00 05/13/21 09:06 Sodium Chloride 0.9% 10 Ml Flush Syringe IV 10 ml BID AMIRA Administration Sodium Chloride 10 ml 04/23/21 11:54 04/24/21 11:15 Sodium Chloride 0.9% 10 Ml Flush Syringe IV 10 ml PRN PRN Administration LINE FLUSH Sodium Chloride 10 ml 05/03/21 19:00 Sodium Chloride 0.9% 10 Ml Flush Syringe IV PRN AMIRA Nutrition/Malnutrition Assess - Dietary Evaluation Nutrition/Malnutrition Findings: Nutrition Notes Start: 04/26/21 09:53 Freq: Status: Active Protocol: Document 05/08/21 18:24 JAIMIE (Rec: 05/08/21 18:30 JAIMIE [id number]) Nutrition Notes Initial or Follow up Brief Note Current Diet TF-Vital AF 1.2 Daniel @ 65 ml/hr (since D 05/06). Height 5 ft 8 in Weight 158.6 kg [place] Body Weight (kg) 63.63 BMI 53.1 Weight change and time frame No body weight change reported . Weight Status Morbidly Obese Subjective/Other Information RD consult for routine F/U on TF tolerance. TF well tolerated, continue as is. Nutrition Intervention Nutrition Support: Continue Vital AF 1.2 @ 65 ml/ hr with 100 ml water flush Q 4h. Follow-Up By: 05/13/21 Additional Comments Continue monitoring TF tolerance, Hydration, and BM.
[2021-05-13] MEDS ORDERED: ALTEPLASE 2 MG INJ IV NR (13:27)
[2021-05-13] MEDS ORDERED: WATER FOR INJ Sterile (PF) 10 ML IV STA (13:39)
[2021-05-13] MEDS: ACETAMINOPHEN 325 MG TAB PO PRN (17:29)
--- NOTE | 2021-05-13 19:17 | Progress Note ---
Assessment and Plan 51 YO Female with DM, OA, Medication Noncompliance, Obesity presents to ED for evaluation. Patient reports "I feel sick". Patient states she had experienced weakness, elevated blood glucose levels, nausea, polydipsia, polyuria, as well a s diminished oral intake over the past 1 week with worsening symptoms over the last 2 days. Patient acknowledges noncompliance with oral antihyperglycemic therapy. Patient states that her weight has gotten progressively worse and and that she is "too weak to walk". EMS was notified and upon arrival the patient was found to be in distress and subsequent transported to [facility] for further care and evaluation of the aforementioned symptoms. The patient was seen and evaluated in the emergency department. All lab and imaging studies reviewed. The patient was found to have diabetic ketoacidosis, metabolic encephalopathy, as well as metabolic acidosis, and volume depletion. Patient mated to ICU and initiated on DKA protocol. Critical care team consulted in ED. Patient has fever, chills, chest pain, palpitation, productive cough, skin rash, recent contact, known exposure to COVID-1 Patients sullivan virus PCR is negative. Patient is awake. Patient is on 2 1/2 1 litre O2. O2 saturation 97%. Patient states she is breathing better. Patient running low grade temp at times. No leukocytosis. Blood pressure 147/74, Pulse 101, respirations 18 Today's Hgb is 6.8. Patient receiving blood transfusion. Chest xray done 04/29/21 reported Low lung volumes with bibasilar opacities/atelectasis persists, unchanged. No pneumothorax. Chest xray done 05/08/21 reported table, mild increased densities and atelectasis in the lower lungs. No pneumothorax. Chest xray done 05/13/21 reported Increased interstitial prominence in bilateral lungs. Elevation right hemidiaphragm with right lower lung atelectasis No pneumothorax. Patient had right knee surgery. Complaining of slight pain at the right knee. Patient is on Cefazolin, Albuterol aerosol treatments and famotidine. - Patient Problems (1) High anion gap metabolic acidosis Current Visit: Yes Status: Acute Plan to address problem: Improving. Recent anion gap is 17 (2) DKA (diabetic ketoacidosis) Current Visit: Yes Status: Acute Qualifiers: Diabetes mellitus type: type 1 Plan to address problem: Improving. Management as primary care. (3) Metabolic encephalopathy Current Visit: Yes Status: Acute Plan to address problem: Management as primary care and neurology. (4) Abscess of right foot Current Visit: No Status: Acute Plan to address problem: Management as primary care and ID Patient started on Cefazolin (5) Diabetic ulcer of right foot associated with diabetes mellitus due to underl holly condition, with fat layer exposed Current Visit: No Status: Acute Plan to address problem: Management as per primary care. (6) Hypertension Current Visit: No Status: Chronic Plan to address problem: Management as primary care. Subjective Date of service: 05/13/21 Principal diagnosis: HAGMA; DKA; AMS; Obesity; Osteoarthritis; Hypercalcemia Interval history: 51 YO Female with DM, OA, Medication Noncompliance, Obesity presents to ED for evaluation. Patient reports "I feel sick". Patient states she had experienced weakness, elevated blood glucose levels, nausea, polydipsia, polyuria, as well as diminished oral intake over the past 1 week with worsening symptoms over the last 2 days. Patient acknowledges noncompliance with oral antihyperglycemic therapy. Patient states that her weight has gotten progressively worse and and that she is "too weak to walk". EMS was notified and upon arrival the patient was found to be in distress and subsequent transported to [facility] for further care and evaluation of the aforementioned symptoms. The patient was seen and evaluated in the emergency department. All lab and imaging studies reviewed. The patient was found to have diabetic ketoacidosis, metabolic encephalopathy, as well as metabolic acidosis, and volume depletion. Patient mated to ICU and initiated on DKA protocol. Critical care team consulted in ED. Patient has fever, chills, chest pain, palpitation, productive cough, skin rash, recent contact, known exposure to COVID-1 Patients sullivan virus PCR is negative. Patient is awake. Patient is on 2 1/2 1 litre O2. O2 saturation 97%. Patient states she is breathing better. Patient running low grade temp at times. No leukocytosis. Blood pressure 147/74, Pulse 101, respirations 18 Today's Hgb is 6.8. Patient receiving blood transfusion. Chest xray done 04/29/21 reported Low lung volumes with bibasilar opacities/atelectasis persists, unchanged. No pneumothorax. Chest xray done 05/08/21 reported table, mild increased densities and atelectasis in the lower lungs. No pneumothorax. Chest xray done 05/13/21 reported Increased interstitial prominence in bilateral lungs. Elevation right hemidiaphragm with right lower lung atelectasis No pneumothorax. Patient had right knee surgery. Complaining of slight pain at the right knee. Patient is on Cefazolin, Albuterol aerosol treatments and famotidine. Objective Vital Signs - 12hr 05/13/21 05/13/21 05/13/21 10:00 11:49 16:00 Temperature 97.8 F Pulse Rate 103 H 100 H Respiratory 20 Rate Blood Pressure 150/78 O2 Sat by Pulse 96 97 97 Oximetry 05/13/21 05/13/21 05/13/21 16:30 16:32 16:40 Temperature 97.9 F 98.6 F 98.1 F Pulse Rate 100 H 99 H 101 H Respiratory 20 18 20 Rate Blood Pressure 145/80 152/86 143/75 O2 Sat by Pulse 97 96 94 Oximetry Constitutional: no acute distress, alert Eyes: non-icteric ENT: oropharynx moist Neck: supple, no lymphadenopathy, no JVD Effort: normal Ascultation: Bilateral: diminished breath sounds, rhonchi Percussion: Bilateral: not dull Cardiovascular: regular rate and rhythm, other (S1,S2) Gastrointestinal: hypoactive bowel sounds, soft, non-tender, non-distended (protuberant) Integumentary: rash (perineal) Extremities: no cyanosis, no edema, pulses normal, no ischemia or petechiae, other (Right knee surgery.) Neurologic: normal mental status, non-focal exam, pupils equal and round, other Psychiatric: mood appropriate, affect normal CBC and BMP: 05/14/21 05:00 05/14/21 05:00 ABG, PT/INR, D-dimer: ABG ABG pH 7.426 pH Units (7.350-7.450) 04/25/21 11:20 ABG pCO2 25.3 mm Hg 04/25/21 11:20 ABG pO2 73.2 mm Hg (80.0-90.0) L 04/25/21 11:20 ABG O2 Saturation 96.9 % (95.0-99.0) 04/25/21 11:20 Abnormal lab findings: Abnormal Labs 04/23/21 04/23/21 04/23/21 10:33 10:33 10:33 WBC RBC Hgb Hct MCV MCH 26 L RDW Plt Count Lymph % (Auto) Seg Neutrophils % Seg Neuts % (Manual) Lymphocytes % (Manual) 7.0 L Nucleated RBC % 2.0 H Seg Neutrophils # Lymphocytes # (Manual) 0.5 L ABG pO2 ABG HCO3 ABG Base Excess ABG Hemoglobin VBG pH 7.180 L* Oxyhemoglobin Sodium 122 L Potassium 3.0 L Chloride 84.8 L Carbon Dioxide 6 L* BUN 49 H Creatinine 1.4 H Glucose 775 H* POC Glucose Hemoglobin A1c Lactic Acid Calcium 12.2 H* Phosphorus Magnesium Alkaline Phosphatase 130 H C-Reactive Protein Total Protein Albumin 2.9 L Vancomycin Trough Crossmatch 04/23/21 04/23/21 04/23/21 10:40 12:44 14:01 WBC RBC Hgb Hct MCV MCH RDW Plt Count Lymph % (Auto) Seg Neutrophils % Seg Neuts % (Manual) Lymphocytes % (Manual) Nucleated RBC % Seg Neutrophils # Lymphocytes # (Manual) ABG pO2 ABG HCO3 ABG Base Excess ABG Hemoglobin VBG pH Oxyhemoglobin Sodium Potassium Chloride Carbon Dioxide BUN Creatinine Glucose POC Glucose > 600 H 550 H Hemoglobin A1c Lactic Acid Calcium Phosphorus 1.50 L Magnesium Alkaline Phosphatase C-Reactive Protein Total Protein Albumin Vancomycin Trough Crossmatch 04/23/21 04/23/21 04/23/21 14:01 14:04 14:56 WBC RBC Hgb Hct MCV MCH RDW Plt Count Lymph % (Auto) Seg Neutrophils % Seg Neuts % (Manual) Lymphocytes % (Manual) Nucleated RBC % Seg Neutrophils # Lymphocytes # (Manual) ABG pO2 ABG HCO3 ABG Base Excess ABG Hemoglobin VBG pH Oxyhemoglobin Sodium 125 L Potassium 3.0 L Chloride 89.2 L Carbon Dioxide 6 L* BUN 45 H Creatinine 1.3 H Glucose 594 H* POC Glucose 518 H 425 H Hemoglobin A1c Lactic Acid Calcium 10.9 H Phosphorus Magnesium Alkaline Phosphatase C-Reactive Protein Total Protein Albumin Vancomycin Trough Crossmatch 04/23/21 04/23/21 04/23/21 15:43 15:48 17:21 WBC RBC Hgb Hct MCV MCH RDW Plt Count Lymph % (Auto) Seg Neutrophils % Seg Neuts % (Manual) Lymphocytes % (Manual) Nucleated RBC % Seg Neutrophils # Lymphocytes # (Manual) ABG pO2 ABG HCO3 ABG Base Excess ABG Hemoglobin VBG pH Oxyhemoglobin Sodium 131 L Potassium 2.9 L* Chloride Carbon Dioxide 8 L* BUN 39 H Creatinine Glucose 434 H POC Glucose 410 H 407 H Hemoglobin A1c Lactic Acid Calcium 10.3 H Phosphorus Magnesium Alkaline Phosphatase C-Reactive Protein Total Protein Albumin Vancomycin Trough Crossmatch 04/23/21 04/23/21 04/23/21 18:07 19:13 19:54 WBC RBC Hgb Hct MCV MCH RDW Plt Count Lymph % (Auto) Seg Neutrophils % Seg Neuts % (Manual) Lymphocytes % (Manual) Nucleated RBC % Seg Neutrophils # Lymphocytes # (Manual) ABG pO2 ABG HCO3 ABG Base Excess ABG Hemoglobin VBG pH Oxyhemoglobin Sodium 131 L Potassium 3.1 L Chloride 95.9 L Carbon Dioxide 7 L* BUN 39 H Creatinine Glucose 391 H POC Glucose 428 H 350 H Hemoglobin A1c Lactic Acid Calcium 11.2 H Phosphorus Magnesium Alkaline Phosphatase C-Reactive Protein Total Protein Albumin Vancomycin Trough Crossmatch 04/23/21 04/23/21 04/23/21 19:54 20:12 20:59 WBC RBC Hgb Hct MCV MCH RDW Plt Count Lymph % (Auto) Seg Neutrophils % Seg Neuts % (Manual) Lymphocytes % (Manual) Nucleated RBC % Seg Neutrophils # Lymphocytes # (Manual) ABG pO2 ABG HCO3 ABG Base Excess ABG Hemoglobin VBG pH Oxyhemoglobin Sodium Potassium Chloride Carbon Dioxide BUN Creatinine Glucose POC Glucose 365 H 286 H Hemoglobin A1c Lactic Acid Calcium Phosphorus 1.10 L D Magnesium Alkaline Phosphatase C-Reactive Protein Total Protein Albumin Vancomycin Trough Crossmatch 04/23/21 04/23/21 04/23/21 22:05 22:23 22:59 WBC RBC Hgb Hct MCV MCH RDW Plt Count Lymph % (Auto) Seg Neutrophils % Seg Neuts % (Manual) Lymphocytes % (Manual) Nucleated RBC % Seg Neutrophils # Lymphocytes # (Manual) ABG pO2 ABG HCO3 ABG Base Excess ABG Hemoglobin VBG pH Oxyhemoglobin Sodium 135 L Potassium 3.2 L Chloride Carbon Dioxide 10 L BUN 35 H Creatinine Glucose 300 H POC Glucose 257 H 238 H Hemoglobin A1c Lactic Acid Calcium 11.6 H Phosphorus Magnesium Alkaline Phosphatase C-Reactive Protein Total Protein Albumin Vancomycin Trough Crossmatch 04/23/21 04/24/21 04/24/21 23:57 00:10 00:56 WBC RBC Hgb Hct MCV MCH RDW Plt Count Lymph % (Auto) Seg Neutrophils % Seg Neuts % (Manual) Lymphocytes % (Manual) Nucleated RBC % Seg Neutrophils # Lymphocytes # (Manual) ABG pO2 ABG HCO3 ABG Base Excess ABG Hemoglobin VBG pH Oxyhemoglobin Sodium Potassium 3.2 L Chloride Carbon Dioxide 13 L BUN 33 H Creatinine Glucose 267 H POC Glucose 223 H 254 H Hemoglobin A1c Lactic Acid Calcium 11.2 H Phosphorus 1.20 L Magnesium Alkaline Phosphatase C-Reactive Protein Total Protein Albumin Vancomycin Trough Crossmatch 04/24/21 04/24/21 04/24/21 01:58 02:58 03:57 WBC RBC Hgb Hct MCV MCH RDW Plt Count Lymph % (Auto) Seg Neutrophils % Seg Neuts % (Manual) Lymphocytes % (Manual) Nucleated RBC % Seg Neutrophils # Lymphocytes # (Manual) ABG pO2 ABG HCO3 ABG Base Excess ABG Hemoglobin VBG pH Oxyhemoglobin Sodium Potassium Chloride Carbon Dioxide BUN Creatinine Glucose POC Glucose 264 H 251 H 200 H Hemoglobin A1c Lactic Acid Calcium Phosphorus Magnesium Alkaline Phosphatase C-Reactive Protein Total Protein Albumin Vancomycin Trough Crossmatch 04/24/21 04/24/21 04/24/21 04:16 04:16 04:16 WBC RBC Hgb Hct MCV MCH 26 L RDW Plt Count Lymph % (Auto) Seg Neutrophils % Seg Neuts % (Manual) Lymphocytes % (Manual) Nucleated RBC % Seg Neutrophils # Lymphocytes # (Manual) ABG pO2 ABG HCO3 ABG Base Excess ABG Hemoglobin VBG pH Oxyhemoglobin Sodium Potassium Chloride 108.0 H Carbon Dioxide 13 L BUN 31 H Creatinine Glucose 243 H POC Glucose Hemoglobin A1c 18.3 H Lactic Acid Calcium 10.9 H Phosphorus 1.80 L D Magnesium Alkaline Phosphatase C-Reactive Protein Total Protein Albumin Vancomycin Trough Crossmatch 04/24/21 04/24/21 04/24/21 04:59 05:53 06:51 WBC RBC Hgb Hct MCV MCH RDW Plt Count Lymph % (Auto) Seg Neutrophils % Seg Neuts % (Manual) Lymphocytes % (Manual) Nucleated RBC % Seg Neutrophils # Lymphocytes # (Manual) ABG pO2 ABG HCO3 ABG Base Excess ABG Hemoglobin VBG pH Oxyhemoglobin Sodium Potassium Chloride Carbon Dioxide BUN Creatinine Glucose POC Glucose 208 H 213 H 161 H Hemoglobin A1c Lactic Acid Calcium Phosphorus Magnesium Alkaline Phosphatase C-Reactive Protein Total Protein Albumin Vancomycin Trough Crossmatch 04/24/21 04/24/21 04/24/21 07:58 09:21 10:06 WBC RBC Hgb Hct MCV MCH RDW Plt Count Lymph % (Auto) Seg Neutrophils % Seg Neuts % (Manual) Lymphocytes % (Manual) Nucleated RBC % Seg Neutrophils # Lymphocytes # (Manual) ABG pO2 ABG HCO3 ABG Base Excess ABG Hemoglobin VBG pH Oxyhemoglobin Sodium Potassium Chloride Carbon Dioxide BUN Creatinine Glucose POC Glucose 149 H 178 H 164 H Hemoglobin A1c Lactic Acid Calcium Phosphorus Magnesium Alkaline Phosphatase C-Reactive Protein Total Protein Albumin Vancomycin Trough Crossmatch 04/24/21 04/24/21 04/24/21 11:03 12:07 12:14 WBC RBC Hgb Hct MCV MCH RDW Plt Count Lymph % (Auto) Seg Neutrophils % Seg Neuts % (Manual) Lymphocytes % (Manual) Nucleated RBC % Seg Neutrophils # Lymphocytes # (Manual) ABG pO2 ABG HCO3 ABG Base Excess ABG Hemoglobin VBG pH Oxyhemoglobin Sodium Potassium 3.2 L Chloride 108.7 H Carbon Dioxide 16 L BUN 24 H Creatinine Glucose 160 H POC Glucose 157 H 142 H Hemoglobin A1c Lactic Acid Calcium 10.5 H Phosphorus 0.70 L* D Magnesium Alkaline Phosphatase C-Reactive Protein Total Protein Albumin Vancomycin Trough Crossmatch 04/24/21 04/24/21 04/24/21 12:14 13:02 14:00 WBC RBC Hgb Hct MCV MCH RDW Plt Count Lymph % (Auto) Seg Neutrophils % Seg Neuts % (Manual) Lymphocytes % (Manual) Nucleated RBC % Seg Neutrophils # Lymphocytes # (Manual) ABG pO2 ABG HCO3 ABG Base Excess ABG Hemoglobin VBG pH Oxyhemoglobin Sodium Potassium Chloride Carbon Dioxide BUN Creatinine Glucose POC Glucose 138 H 150 H Hemoglobin A1c Lactic Acid 2.50 H* Calcium Phosphorus Magnesium Alkaline Phosphatase C-Reactive Protein Total Protein Albumin Vancomycin Trough Crossmatch 04/24/21 04/24/21 04/24/21 15:14 16:07 17:11 WBC RBC Hgb Hct MCV MCH RDW Plt Count Lymph % (Auto) Seg Neutrophils % Seg Neuts % (Manual) Lymphocytes % (Manual) Nucleated RBC % Seg Neutrophils # Lymphocytes # (Manual) ABG pO2 ABG HCO3 ABG Base Excess ABG Hemoglobin VBG pH Oxyhemoglobin Sodium Potassium Chloride Carbon Dioxide BUN Creatinine Glucose POC Glucose 145 H 148 H 156 H Hemoglobin A1c Lactic Acid Calcium Phosphorus Magnesium Alkaline Phosphatase C-Reactive Protein Total Protein Albumin Vancomycin Trough Crossmatch 04/24/21 04/24/21 04/24/21 18:12 18:24 19:55 WBC RBC Hgb Hct MCV MCH RDW Plt Count Lymph % (Auto) Seg Neutrophils % Seg Neuts % (Manual) Lymphocytes % (Manual) Nucleated RBC % Seg Neutrophils # Lymphocytes # (Manual) ABG pO2 ABG HCO3 ABG Base Excess ABG Hemoglobin VBG pH Oxyhemoglobin Sodium Potassium Chloride 109.2 H Carbon Dioxide 15 L BUN 22 H Creatinine Glucose 159 H POC Glucose 153 H 176 H Hemoglobin A1c Lactic Acid Calcium Phosphorus 1.80 L D Magnesium Alkaline Phosphatase C-Reactive Protein 24.30 H Total Protein Albumin Vancomycin Trough Crossmatch 04/24/21 04/24/21 04/24/21 20:55 22:04 23:02 WBC RBC Hgb Hct MCV MCH RDW Plt Count Lymph % (Auto) Seg Neutrophils % Seg Neuts % (Manual) Lymphocytes % (Manual) Nucleated RBC % Seg Neutrophils # Lymphocytes # (Manual) ABG pO2 ABG HCO3 ABG Base Excess ABG Hemoglobin VBG pH Oxyhemoglobin Sodium Potassium Chloride Carbon Dioxide BUN Creatinine Glucose POC Glucose 146 H 169 H Hemoglobin A1c Lactic Acid 3.10 H* Calcium Phosphorus Magnesium Alkaline Phosphatase C-Reactive Protein Total Protein Albumin Vancomycin Trough Crossmatch 04/24/21 04/25/21 04/25/21 23:13 00:05 01:28 WBC RBC Hgb Hct MCV MCH RDW Plt Count Lymph % (Auto) Seg Neutrophils % Seg Neuts % (Manual) Lymphocytes % (Manual) Nucleated RBC % Seg Neutrophils # Lymphocytes # (Manual) ABG pO2 ABG HCO3 ABG Base Excess ABG Hemoglobin VBG pH Oxyhemoglobin Sodium Potassium Chloride Carbon Dioxide BUN Creatinine Glucose POC Glucose 144 H 150 H 142 H Hemoglobin A1c Lactic Acid Calcium Phosphorus Magnesium Alkaline Phosphatase C-Reactive Protein Total Protein Albumin Vancomycin Trough Crossmatch 04/25/21 04/25/21 04/25/21 02:03 03:07 04:17 WBC RBC Hgb Hct MCV MCH RDW Plt Count Lymph % (Auto) Seg Neutrophils % Seg Neuts % (Manual) Lymphocytes % (Manual) Nucleated RBC % Seg Neutrophils # Lymphocytes # (Manual) ABG pO2 ABG HCO3 ABG Base Excess ABG Hemoglobin VBG pH Oxyhemoglobin Sodium Potassium Chloride Carbon Dioxide BUN Creatinine Glucose POC Glucose 148 H 161 H 158 H Hemoglobin A1c Lactic Acid Calcium Phosphorus Magnesium Alkaline Phosphatase C-Reactive Protein Total Protein Albumin Vancomycin Trough Crossmatch 04/25/21 04/25/21 04/25/21 05:48 06:52 07:58 WBC RBC Hgb Hct MCV MCH RDW Plt Count Lymph % (Auto) Seg Neutrophils % Seg Neuts % (Manual) Lymphocytes % (Manual) Nucleated RBC % Seg Neutrophils # Lymphocytes # (Manual) ABG pO2 ABG HCO3 ABG Base Excess ABG Hemoglobin VBG pH Oxyhemoglobin Sodium Potassium Chloride Carbon Dioxide BUN Creatinine Glucose POC Glucose 136 H 137 H 143 H Hemoglobin A1c Lactic Acid Calcium Phosphorus Magnesium Alkaline Phosphatase C-Reactive Protein Total Protein Albumin Vancomycin Trough Crossmatch 04/25/21 04/25/21 04/25/21 08:10 08:10 08:10 WBC RBC Hgb 9.5 L Hct 28.8 L MCV MCH 26 L RDW Plt Count Lymph % (Auto) Seg Neutrophils % Seg Neuts % (Manual) 33.0 L Lymphocytes % (Manual) Nucleated RBC % Seg Neutrophils # Lymphocytes # (Manual) 1.1 L ABG pO2 ABG HCO3 ABG Base Excess ABG Hemoglobin VBG pH Oxyhemoglobin Sodium Potassium 3.3 L Chloride 109.0 H Carbon Dioxide 16 L BUN 23 H Creatinine Glucose 151 H POC Glucose Hemoglobin A1c Lactic Acid 2.10 H* Calcium Phosphorus 2.20 L D Magnesium 1.60 L Alkaline Phosphatase C-Reactive Protein Total Protein Albumin Vancomycin Trough Crossmatch 04/25/21 04/25/21 04/25/21 08:53 09:59 11:20 WBC RBC Hgb Hct MCV MCH RDW Plt Count Lymph % (Auto) Seg Neutrophils % Seg Neuts % (Manual) Lymphocytes % (Manual) Nucleated RBC % Seg Neutrophils # Lymphocytes # (Manual) ABG pO2 ABG HCO3 ABG Base Excess ABG Hemoglobin VBG pH Oxyhemoglobin Sodium Potassium Chloride Carbon Dioxide BUN Creatinine Glucose POC Glucose 132 H 141 H 141 H Hemoglobin A1c Lactic Acid Calcium Phosphorus Magnesium Alkaline Phosphatase C-Reactive Protein Total Protein Albumin Vancomycin Trough Crossmatch 04/25/21 04/25/21 04/25/21 11:20 12:04 12:26 WBC RBC Hgb Hct MCV MCH RDW Plt Count Lymph % (Auto) Seg Neutrophils % Seg Neuts % (Manual) Lymphocytes % (Manual) Nucleated RBC % Seg Neutrophils # Lymphocytes # (Manual) ABG pO2 73.2 L ABG HCO3 16.2 L ABG Base Excess -7.1 L ABG Hemoglobin 8.7 L VBG pH Oxyhemoglobin 94.8 L Sodium Potassium 3.4 L Chloride 109.5 H Carbon Dioxide 14 L BUN 21 H Creatinine Glucose 155 H POC Glucose 129 H Hemoglobin A1c Lactic Acid Calcium Phosphorus 1.90 L Magnesium 1.60 L Alkaline Phosphatase C-Reactive Protein Total Protein Albumin Vancomycin Trough Crossmatch 04/25/21 04/25/21 04/25/21 13:04 13:58 15:09 WBC RBC Hgb Hct MCV MCH RDW Plt Count Lymph % (Auto) Seg Neutrophils % Seg Neuts % (Manual) Lymphocytes % (Manual) Nucleated RBC % Seg Neutrophils # Lymphocytes # (Manual) ABG pO2 ABG HCO3 ABG Base Excess ABG Hemoglobin VBG pH Oxyhemoglobin Sodium Potassium Chloride Carbon Dioxide BUN Creatinine Glucose POC Glucose 135 H 140 H 134 H Hemoglobin A1c Lactic Acid Calcium Phosphorus Magnesium Alkaline Phosphatase C-Reactive Protein Total Protein Albumin Vancomycin Trough Crossmatch 04/25/21 04/25/21 04/25/21 16:00 18:56 18:58 WBC RBC Hgb Hct MCV MCH RDW Plt Count Lymph % (Auto) Seg Neutrophils % Seg Neuts % (Manual) Lymphocytes % (Manual) Nucleated RBC % Seg Neutrophils # Lymphocytes # (Manual) ABG pO2 ABG HCO3 ABG Base Excess ABG Hemoglobin VBG pH Oxyhemoglobin Sodium Potassium Chloride Carbon Dioxide BUN Creatinine Glucose POC Glucose 135 H 170 H Hemoglobin A1c Lactic Acid 2.10 H* Calcium Phosphorus Magnesium Alkaline Phosphatase C-Reactive Protein Total Protein Albumin Vancomycin Trough Crossmatch 04/25/21 04/25/21 04/25/21 18:58 19:52 20:53 WBC RBC Hgb Hct MCV MCH RDW Plt Count Lymph % (Auto) Seg Neutrophils % Seg Neuts % (Manual) Lymphocytes % (Manual) Nucleated RBC % Seg Neutrophils # Lymphocytes # (Manual) ABG pO2 ABG HCO3 ABG Base Excess ABG Hemoglobin VBG pH Oxyhemoglobin Sodium Potassium Chloride 110.1 H Carbon Dioxide 13 L BUN 23 H Creatinine Glucose 206 H POC Glucose 162 H 171 H Hemoglobin A1c Lactic Acid Calcium Phosphorus Magnesium 2.40 H Alkaline Phosphatase C-Reactive Protein Total Protein Albumin Vancomycin Trough Crossmatch 04/25/21 04/25/21 04/26/21 21:54 22:53 00:03 WBC RBC Hgb Hct MCV MCH RDW Plt Count Lymph % (Auto) Seg Neutrophils % Seg Neuts % (Manual) Lymphocytes % (Manual) Nucleated RBC % Seg Neutrophils # Lymphocytes # (Manual) ABG pO2 ABG HCO3 ABG Base Excess ABG Hemoglobin VBG pH Oxyhemoglobin Sodium Potassium Chloride Carbon Dioxide BUN Creatinine Glucose POC Glucose 139 H 140 H 129 H Hemoglobin A1c Lactic Acid Calcium Phosphorus Magnesium Alkaline Phosphatase C-Reactive Protein Total Protein Albumin Vancomycin Trough Crossmatch 04/26/21 04/26/21 04/26/21 00:38 01:00 01:56 WBC RBC Hgb Hct MCV MCH RDW Plt Count Lymph % (Auto) Seg Neutrophils % Seg Neuts % (Manual) Lymphocytes % (Manual) Nucleated RBC % Seg Neutrophils # Lymphocytes # (Manual) ABG pO2 ABG HCO3 ABG Base Excess ABG Hemoglobin VBG pH Oxyhemoglobin Sodium Potassium Chloride 112.6 H Carbon Dioxide 14 L BUN 22 H Creatinine Glucose 149 H POC Glucose 126 H 137 H Hemoglobin A1c Lactic Acid Calcium Phosphorus Magnesium 2.40 H Alkaline Phosphatase C-Reactive Protein Total Protein Albumin Vancomycin Trough Crossmatch 04/26/21 04/26/21 04/26/21 02:54 04:04 05:02 WBC RBC 3.44 L Hgb 8.9 L Hct 26.9 L MCV 78 L MCH 26 L RDW Plt Count Lymph % (Auto) Seg Neutrophils % Seg Neuts % (Manual) Lymphocytes % (Manual) Nucleated RBC % Seg Neutrophils # Lymphocytes # (Manual) ABG pO2 ABG HCO3 ABG Base Excess ABG Hemoglobin VBG pH Oxyhemoglobin Sodium Potassium Chloride Carbon Dioxide BUN Creatinine Glucose POC Glucose 132 H 130 H Hemoglobin A1c Lactic Acid Calcium Phosphorus Magnesium Alkaline Phosphatase C-Reactive Protein Total Protein Albumin Vancomycin Trough Crossmatch 04/26/21 04/26/21 04/26/21 05:02 05:03 06:06 WBC RBC Hgb Hct MCV MCH RDW Plt Count Lymph % (Auto) Seg Neutrophils % Seg Neuts % (Manual) Lymphocytes % (Manual) Nucleated RBC % Seg Neutrophils # Lymphocytes # (Manual) ABG pO2 ABG HCO3 ABG Base Excess ABG Hemoglobin VBG pH Oxyhemoglobin Sodium Potassium Chloride 114.8 H Carbon Dioxide 14 L BUN 22 H Creatinine Glucose 129 H POC Glucose 115 H 129 H Hemoglobin A1c Lactic Acid Calcium Phosphorus Magnesium Alkaline Phosphatase C-Reactive Protein Total Protein Albumin Vancomycin Trough Crossmatch 04/26/21 04/26/21 04/26/21 06:53 07:58 09:09 WBC RBC Hgb Hct MCV MCH RDW Plt Count Lymph % (Auto) Seg Neutrophils % Seg Neuts % (Manual) Lymphocytes % (Manual) Nucleated RBC % Seg Neutrophils # Lymphocytes # (Manual) ABG pO2 ABG HCO3 ABG Base Excess ABG Hemoglobin VBG pH Oxyhemoglobin Sodium Potassium Chloride Carbon Dioxide BUN Creatinine Glucose POC Glucose 121 H 124 H 125 H Hemoglobin A1c Lactic Acid Calcium Phosphorus Magnesium Alkaline Phosphatase C-Reactive Protein Total Protein Albumin Vancomycin Trough Crossmatch 04/26/21 04/26/21 04/26/21 10:05 10:52 12:00 WBC RBC Hgb Hct MCV MCH RDW Plt Count Lymph % (Auto) Seg Neutrophils % Seg Neuts % (Manual) Lymphocytes % (Manual) Nucleated RBC % Seg Neutrophils # Lymphocytes # (Manual) ABG pO2 ABG HCO3 ABG Base Excess ABG Hemoglobin VBG pH Oxyhemoglobin Sodium Potassium Chloride Carbon Dioxide BUN Creatinine Glucose POC Glucose 131 H 129 H 126 H Hemoglobin A1c Lactic Acid Calcium Phosphorus Magnesium Alkaline Phosphatase C-Reactive Protein Total Protein Albumin Vancomycin Trough Crossmatch 04/26/21 04/26/21 04/26/21 13:17 14:06 14:11 WBC RBC Hgb Hct MCV MCH RDW Plt Count Lymph % (Auto) Seg Neutrophils % Seg Neuts % (Manual) Lymphocytes % (Manual) Nucleated RBC % Seg Neutrophils # Lymphocytes # (Manual) ABG pO2 ABG HCO3 ABG Base Excess ABG Hemoglobin VBG pH Oxyhemoglobin Sodium Potassium 5.3 H D Chloride 112.2 H Carbon Dioxide 14 L BUN 22 H Creatinine Glucose 116 H POC Glucose 130 H 132 H Hemoglobin A1c Lactic Acid Calcium Phosphorus Magnesium 2.40 H Alkaline Phosphatase C-Reactive Protein Total Protein Albumin Vancomycin Trough Crossmatch 04/26/21 04/26/21 04/26/21 15:07 15:20 16:05 WBC RBC Hgb Hct MCV MCH RDW Plt Count Lymph % (Auto) Seg Neutrophils % Seg Neuts % (Manual) Lymphocytes % (Manual) Nucleated RBC % Seg Neutrophils # Lymphocytes # (Manual) ABG pO2 ABG HCO3 ABG Base Excess ABG Hemoglobin VBG pH Oxyhemoglobin Sodium Potassium Chloride 112.4 H Carbon Dioxide 13 L BUN 22 H Creatinine Glucose 143 H POC Glucose 130 H 156 H Hemoglobin A1c Lactic Acid Calcium Phosphorus Magnesium Alkaline Phosphatase C-Reactive Protein Total Protein Albumin Vancomycin Trough Crossmatch 04/26/21 04/26/21 04/27/21 17:55 19:27 00:02 WBC RBC Hgb Hct MCV MCH RDW Plt Count Lymph % (Auto) Seg Neutrophils % Seg Neuts % (Manual) Lymphocytes % (Manual) Nucleated RBC % Seg Neutrophils # Lymphocytes # (Manual) ABG pO2 ABG HCO3 ABG Base Excess ABG Hemoglobin VBG pH Oxyhemoglobin Sodium Potassium Chloride Carbon Dioxide BUN Creatinine Glucose POC Glucose 194 H 261 H Hemoglobin A1c Lactic Acid Calcium Phosphorus Magnesium Alkaline Phosphatase C-Reactive Protein Total Protein Albumin Vancomycin Trough 38.2 H Crossmatch 04/27/21 04/27/21 04/27/21 04:03 04:03 05:33 WBC RBC 3.20 L Hgb 8.1 L Hct 25.1 L MCV 78 L MCH 25 L RDW Plt Count Lymph % (Auto) Seg Neutrophils % Seg Neuts % (Manual) Lymphocytes % (Manual) Nucleated RBC % Seg Neutrophils # Lymphocytes # (Manual) ABG pO2 ABG HCO3 ABG Base Excess ABG Hemoglobin VBG pH Oxyhemoglobin Sodium Potassium Chloride 112.4 H Carbon Dioxide 12 L BUN 30 H Creatinine Glucose 330 H POC Glucose 311 H Hemoglobin A1c Lactic Acid Calcium Phosphorus Magnesium Alkaline Phosphatase C-Reactive Protein Total Protein Albumin Vancomycin Trough Crossmatch 04/27/21 04/27/21 04/27/21 09:51 13:15 16:43 WBC RBC Hgb Hct MCV MCH RDW Plt Count Lymph % (Auto) Seg Neutrophils % Seg Neuts % (Manual) Lymphocytes % (Manual) Nucleated RBC % Seg Neutrophils # Lymphocytes # (Manual) ABG pO2 ABG HCO3 ABG Base Excess ABG Hemoglobin VBG pH Oxyhemoglobin Sodium Potassium Chloride Carbon Dioxide BUN Creatinine Glucose POC Glucose 335 H 291 H 218 H Hemoglobin A1c Lactic Acid Calcium Phosphorus Magnesium Alkaline Phosphatase C-Reactive Protein Total Protein Albumin Vancomycin Trough Crossmatch 04/27/21 04/27/21 04/28/21 18:10 22:08 02:15 WBC RBC Hgb Hct MCV MCH RDW Plt Count Lymph % (Auto) Seg Neutrophils % Seg Neuts % (Manual) Lymphocytes % (Manual) Nucleated RBC % Seg Neutrophils # Lymphocytes # (Manual) ABG pO2 ABG HCO3 ABG Base Excess ABG Hemoglobin VBG pH Oxyhemoglobin Sodium Potassium Chloride Carbon Dioxide BUN Creatinine Glucose POC Glucose 177 H 136 H 152 H Hemoglobin A1c Lactic Acid Calcium Phosphorus Magnesium Alkaline Phosphatase C-Reactive Protein Total Protein Albumin Vancomycin Trough Crossmatch 04/28/21 04/28/21 04/28/21 04:41 04:41 06:03 WBC RBC 3.50 L Hgb 8.9 L Hct 27.3 L MCV 78 L MCH 26 L RDW Plt Count Lymph % (Auto) Seg Neutrophils % Seg Neuts % (Manual) Lymphocytes % (Manual) Nucleated RBC % Seg Neutrophils # Lymphocytes # (Manual) ABG pO2 ABG HCO3 ABG Base Excess ABG Hemoglobin VBG pH Oxyhemoglobin Sodium Potassium Chloride 113.5 H Carbon Dioxide 16 L BUN 37 H Creatinine Glucose 167 H POC Glucose 174 H Hemoglobin A1c Lactic Acid Calcium Phosphorus Magnesium Alkaline Phosphatase C-Reactive Protein Total Protein Albumin Vancomycin Trough Crossmatch 04/28/21 04/28/21 04/28/21 08:42 11:34 17:15 WBC RBC Hgb Hct MCV MCH RDW Plt Count Lymph % (Auto) Seg Neutrophils % Seg Neuts % (Manual) Lymphocytes % (Manual) Nucleated RBC % Seg Neutrophils # Lymphocytes # (Manual) ABG pO2 ABG HCO3 ABG Base Excess ABG Hemoglobin VBG pH Oxyhemoglobin Sodium Potassium Chloride Carbon Dioxide BUN Creatinine Glucose POC Glucose 212 H 228 H 236 H Hemoglobin A1c Lactic Acid Calcium Phosphorus Magnesium Alkaline Phosphatase C-Reactive Protein Total Protein Albumin Vancomycin Trough Crossmatch 04/28/21 04/29/21 04/29/21 21:58 01:55 04:00 WBC 11.7 H RBC 3.35 L Hgb 8.5 L Hct 26.4 L MCV MCH 25 L RDW Plt Count Lymph % (Auto) Seg Neutrophils % Seg Neuts % (Manual) Lymphocytes % (Manual) Nucleated RBC % Seg Neutrophils # Lymphocytes # (Manual) ABG pO2 ABG HCO3 ABG Base Excess ABG Hemoglobin VBG pH Oxyhemoglobin Sodium Potassium Chloride Carbon Dioxide BUN Creatinine Glucose POC Glucose 208 H 137 H Hemoglobin A1c Lactic Acid Calcium Phosphorus Magnesium Alkaline Phosphatase C-Reactive Protein Total Protein Albumin Vancomycin Trough Crossmatch 04/29/21 04/29/21 04/29/21 04:00 05:16 11:02 WBC RBC Hgb Hct MCV MCH RDW Plt Count Lymph % (Auto) Seg Neutrophils % Seg Neuts % (Manual) Lymphocytes % (Manual) Nucleated RBC % Seg Neutrophils # Lymphocytes # (Manual) ABG pO2 ABG HCO3 ABG Base Excess ABG Hemoglobin VBG pH Oxyhemoglobin Sodium 146 H Potassium Chloride 112.4 H Carbon Dioxide BUN 41 H Creatinine Glucose 115 H POC Glucose 114 H 144 H Hemoglobin A1c Lactic Acid Calcium Phosphorus Magnesium Alkaline Phosphatase C-Reactive Protein Total Protein Albumin Vancomycin Trough Crossmatch 04/30/21 04/30/21 04/30/21 00:23 04:41 04:41 WBC 14.4 H RBC 3.12 L Hgb 7.8 L Hct 24.7 L MCV MCH 25 L RDW Plt Count 138 L Lymph % (Auto) Seg Neutrophils % Seg Neuts % (Manual) Lymphocytes % (Manual) Nucleated RBC % Seg Neutrophils # Lymphocytes # (Manual) ABG pO2 ABG HCO3 ABG Base Excess ABG Hemoglobin VBG pH Oxyhemoglobin Sodium Potassium Chloride 108.0 H Carbon Dioxide BUN 42 H Creatinine Glucose 215 H POC Glucose 126 H Hemoglobin A1c Lactic Acid Calcium Phosphorus Magnesium Alkaline Phosphatase 171 H C-Reactive Protein Total Protein 6.1 L Albumin 1.4 L Vancomycin Trough Crossmatch 04/30/21 04/30/21 04/30/21 05:22 11:55 17:36 WBC RBC Hgb Hct MCV MCH RDW Plt Count Lymph % (Auto) Seg Neutrophils % Seg Neuts % (Manual) Lymphocytes % (Manual) Nucleated RBC % Seg Neutrophils # Lymphocytes # (Manual) ABG pO2 ABG HCO3 ABG Base Excess ABG Hemoglobin VBG pH Oxyhemoglobin Sodium Potassium Chloride Carbon Dioxide BUN Creatinine Glucose POC Glucose 196 H 224 H 196 H Hemoglobin A1c Lactic Acid Calcium Phosphorus Magnesium Alkaline Phosphatase C-Reactive Protein Total Protein Albumin Vancomycin Trough Crossmatch 05/01/21 05/01/21 05/01/21 04:01 05:37 05:37 WBC 16.9 H RBC 2.97 L Hgb 7.4 L Hct 23.1 L MCV 78 L MCH 25 L RDW Plt Count Lymph % (Auto) Seg Neutrophils % Seg Neuts % (Manual) Lymphocytes % (Manual) Nucleated RBC % Seg Neutrophils # Lymphocytes # (Manual) ABG pO2 ABG HCO3 ABG Base Excess ABG Hemoglobin VBG pH Oxyhemoglobin Sodium Potassium Chloride 108.4 H Carbon Dioxide BUN 41 H Creatinine Glucose 124 H POC Glucose 122 H Hemoglobin A1c Lactic Acid Calcium 8.0 L Phosphorus Magnesium Alkaline Phosphatase C-Reactive Protein Total Protein Albumin Vancomycin Trough Crossmatch 05/01/21 05/01/21 05/01/21 06:27 13:45 16:40 WBC RBC Hgb Hct MCV MCH RDW Plt Count Lymph % (Auto) Seg Neutrophils % Seg Neuts % (Manual) Lymphocytes % (Manual) Nucleated RBC % Seg Neutrophils # Lymphocytes # (Manual) ABG pO2 ABG HCO3 ABG Base Excess ABG Hemoglobin VBG pH Oxyhemoglobin Sodium Potassium Chloride Carbon Dioxide BUN Creatinine Glucose POC Glucose 126 H 231 H 266 H Hemoglobin A1c Lactic Acid Calcium Phosphorus Magnesium Alkaline Phosphatase C-Reactive Protein Total Protein Albumin Vancomycin Trough Crossmatch 05/01/21 05/02/21 05/02/21 23:16 05:43 11:27 WBC RBC Hgb Hct MCV MCH RDW Plt Count Lymph % (Auto) Seg Neutrophils % Seg Neuts % (Manual) Lymphocytes % (Manual) Nucleated RBC % Seg Neutrophils # Lymphocytes # (Manual) ABG pO2 ABG HCO3 ABG Base Excess ABG Hemoglobin VBG pH Oxyhemoglobin Sodium Potassium Chloride Carbon Dioxide BUN Creatinine Glucose POC Glucose 192 H 236 H 284 H Hemoglobin A1c Lactic Acid Calcium Phosphorus Magnesium Alkaline Phosphatase C-Reactive Protein Total Protein Albumin Vancomycin Trough Crossmatch 05/02/21 05/02/21 05/03/21 16:52 23:20 06:16 WBC RBC Hgb Hct MCV MCH RDW Plt Count Lymph % (Auto) Seg Neutrophils % Seg Neuts % (Manual) Lymphocytes % (Manual) Nucleated RBC % Seg Neutrophils # Lymphocytes # (Manual) ABG pO2 ABG HCO3 ABG Base Excess ABG Hemoglobin VBG pH Oxyhemoglobin Sodium Potassium Chloride Carbon Dioxide BUN Creatinine Glucose POC Glucose 170 H 124 H 147 H Hemoglobin A1c Lactic Acid Calcium Phosphorus Magnesium Alkaline Phosphatase C-Reactive Protein Total Protein Albumin Vancomycin Trough Crossmatch 05/03/21 05/03/21 05/03/21 07:05 07:05 11:46 WBC 14.3 H RBC 2.82 L Hgb 6.8 L Hct 22.7 L MCV MCH 24 L RDW Plt Count Lymph % (Auto) 11.8 L Seg Neutrophils % 83.3 H Seg Neuts % (Manual) Lymphocytes % (Manual) Nucleated RBC % Seg Neutrophils # 11.9 H Lymphocytes # (Manual) ABG pO2 ABG HCO3 ABG Base Excess ABG Hemoglobin VBG pH Oxyhemoglobin Sodium Potassium Chloride Carbon Dioxide BUN 39 H Creatinine Glucose 163 H POC Glucose 134 H Hemoglobin A1c Lactic Acid Calcium Phosphorus Magnesium Alkaline Phosphatase C-Reactive Protein Total Protein Albumin Vancomycin Trough Crossmatch 05/03/21 05/03/21 05/03/21 17:11 18:00 19:46 WBC RBC Hgb Hct MCV MCH RDW Plt Count Lymph % (Auto) Seg Neutrophils % Seg Neuts % (Manual) Lymphocytes % (Manual) Nucleated RBC % Seg Neutrophils # Lymphocytes # (Manual) ABG pO2 ABG HCO3 ABG Base Excess ABG Hemoglobin VBG pH Oxyhemoglobin Sodium Potassium Chloride Carbon Dioxide BUN Creatinine Glucose POC Glucose 129 H 128 H Hemoglobin A1c Lactic Acid Calcium Phosphorus Magnesium Alkaline Phosphatase C-Reactive Protein Total Protein Albumin Vancomycin Trough Crossmatch See Detail 05/03/21 05/04/21 05/04/21 22:00 08:06 11:19 WBC RBC Hgb Hct MCV MCH RDW Plt Count Lymph % (Auto) Seg Neutrophils % Seg Neuts % (Manual) Lymphocytes % (Manual) Nucleated RBC % Seg Neutrophils # Lymphocytes # (Manual) ABG pO2 ABG HCO3 ABG Base Excess ABG Hemoglobin VBG pH Oxyhemoglobin Sodium Potassium Chloride Carbon Dioxide BUN Creatinine Glucose POC Glucose 144 H 337 H 383 H Hemoglobin A1c Lactic Acid Calcium Phosphorus Magnesium Alkaline Phosphatase C-Reactive Protein Total Protein Albumin Vancomycin Trough Crossmatch 05/04/21 05/04/21 05/05/21 17:43 23:01 06:05 WBC RBC Hgb Hct MCV MCH RDW Plt Count Lymph % (Auto) Seg Neutrophils % Seg Neuts % (Manual) Lymphocytes % (Manual) Nucleated RBC % Seg Neutrophils # Lymphocytes # (Manual) ABG pO2 ABG HCO3 ABG Base Excess ABG Hemoglobin VBG pH Oxyhemoglobin Sodium Potassium Chloride Carbon Dioxide BUN Creatinine Glucose POC Glucose 316 H 320 H 395 H Hemoglobin A1c Lactic Acid Calcium Phosphorus Magnesium Alkaline Phosphatase C-Reactive Protein Total Protein Albumin Vancomycin Trough Crossmatch 05/05/21 05/05/21 05/05/21 06:15 06:15 11:38 WBC RBC 2.56 L Hgb 6.8 L 6.9 L Hct 21.4 L 22.7 L MCV MCH 27 L RDW Plt Count 442 H Lymph % (Auto) Seg Neutrophils % 76.5 H Seg Neuts % (Manual) Lymphocytes % (Manual) Nucleated RBC % Seg Neutrophils # Lymphocytes # (Manual) ABG pO2 ABG HCO3 ABG Base Excess ABG Hemoglobin VBG pH Oxyhemoglobin Sodium Potassium Chloride Carbon Dioxide BUN 52 H Creatinine Glucose 430 H POC Glucose Hemoglobin A1c Lactic Acid Calcium Phosphorus Magnesium Alkaline Phosphatase C-Reactive Protein Total Protein Albumin Vancomycin Trough Crossmatch 05/05/21 05/05/21 05/06/21 11:47 23:07 06:44 WBC RBC Hgb Hct MCV MCH RDW Plt Count Lymph % (Auto) Seg Neutrophils % Seg Neuts % (Manual) Lymphocytes % (Manual) Nucleated RBC % Seg Neutrophils # Lymphocytes # (Manual) ABG pO2 ABG HCO3 ABG Base Excess ABG Hemoglobin VBG pH Oxyhemoglobin Sodium Potassium Chloride Carbon Dioxide BUN Creatinine Glucose POC Glucose 307 H 141 H 147 H Hemoglobin A1c Lactic Acid Calcium Phosphorus Magnesium Alkaline Phosphatase C-Reactive Protein Total Protein Albumin Vancomycin Trough Crossmatch 05/06/21 05/06/21 05/06/21 07:52 12:27 17:02 WBC RBC Hgb 7.0 L Hct 21.8 L MCV MCH RDW Plt Count Lymph % (Auto) Seg Neutrophils % Seg Neuts % (Manual) Lymphocytes % (Manual) Nucleated RBC % Seg Neutrophils # Lymphocytes # (Manual) ABG pO2 ABG HCO3 ABG Base Excess ABG Hemoglobin VBG pH Oxyhemoglobin Sodium Potassium Chloride Carbon Dioxide BUN Creatinine Glucose POC Glucose 200 H 135 H Hemoglobin A1c Lactic Acid Calcium Phosphorus Magnesium Alkaline Phosphatase C-Reactive Protein Total Protein Albumin Vancomycin Trough Crossmatch 05/06/21 05/07/21 05/07/21 23:03 08:02 10:49 WBC RBC Hgb 7.4 L Hct 23.7 L MCV MCH RDW Plt Count Lymph % (Auto) Seg Neutrophils % Seg Neuts % (Manual) Lymphocytes % (Manual) Nucleated RBC % Seg Neutrophils # Lymphocytes # (Manual) ABG pO2 ABG HCO3 ABG Base Excess ABG Hemoglobin VBG pH Oxyhemoglobin Sodium Potassium Chloride Carbon Dioxide BUN Creatinine Glucose POC Glucose 150 H 255 H Hemoglobin A1c Lactic Acid Calcium Phosphorus Magnesium Alkaline Phosphatase C-Reactive Protein Total Protein Albumin Vancomycin Trough Crossmatch 05/07/21 05/07/21 05/07/21 13:27 18:03 Unknown WBC RBC 2.66 L Hgb 6.9 L Hct 22.3 L MCV MCH 26 L RDW 15.4 H Plt Count 449 H Lymph % (Auto) Seg Neutrophils % 70.7 H Seg Neuts % (Manual) Lymphocytes % (Manual) Nucleated RBC % Seg Neutrophils # Lymphocytes # (Manual) ABG pO2 ABG HCO3 ABG Base Excess ABG Hemoglobin VBG pH Oxyhemoglobin Sodium Potassium Chloride Carbon Dioxide BUN Creatinine Glucose POC Glucose 149 H 127 H Hemoglobin A1c Lactic Acid Calcium Phosphorus Magnesium Alkaline Phosphatase C-Reactive Protein Total Protein Albumin Vancomycin Trough Crossmatch 05/08/21 05/08/21 05/08/21 06:10 07:51 11:55 WBC RBC Hgb Hct MCV MCH RDW Plt Count Lymph % (Auto) Seg Neutrophils % Seg Neuts % (Manual) Lymphocytes % (Manual) Nucleated RBC % Seg Neutrophils # Lymphocytes # (Manual) ABG pO2 ABG HCO3 ABG Base Excess ABG Hemoglobin VBG pH Oxyhemoglobin Sodium Potassium Chloride Carbon Dioxide BUN Creatinine Glucose POC Glucose 190 H 194 H 197 H Hemoglobin A1c Lactic Acid Calcium Phosphorus Magnesium Alkaline Phosphatase C-Reactive Protein Total Protein Albumin Vancomycin Trough Crossmatch 05/08/21 05/08/21 05/08/21 12:25 12:25 18:35 WBC RBC 2.42 L Hgb 6.6 L Hct 20.1 L MCV MCH 27 L RDW 15.3 H Plt Count 452 H Lymph % (Auto) Seg Neutrophils % Seg Neuts % (Manual) Lymphocytes % (Manual) Nucleated RBC % Seg Neutrophils # Lymphocytes # (Manual) ABG pO2 ABG HCO3 ABG Base Excess ABG Hemoglobin VBG pH Oxyhemoglobin Sodium Potassium Chloride Carbon Dioxide BUN 27 H Creatinine Glucose 216 H POC Glucose 195 H Hemoglobin A1c Lactic Acid Calcium 7.9 L Phosphorus Magnesium Alkaline Phosphatase C-Reactive Protein Total Protein Albumin Vancomycin Trough Crossmatch 05/08/21 05/09/21 05/09/21 23:45 01:39 02:57 WBC RBC Hgb 6.6 L Hct 20.7 L MCV MCH RDW Plt Count Lymph % (Auto) Seg Neutrophils % Seg Neuts % (Manual) Lymphocytes % (Manual) Nucleated RBC % Seg Neutrophils # Lymphocytes # (Manual) ABG pO2 ABG HCO3 ABG Base Excess ABG Hemoglobin VBG pH Oxyhemoglobin Sodium Potassium Chloride Carbon Dioxide BUN Creatinine Glucose POC Glucose 286 H Hemoglobin A1c Lactic Acid Calcium Phosphorus Magnesium Alkaline Phosphatase C-Reactive Protein Total Protein Albumin Vancomycin Trough Crossmatch See Detail 05/09/21 05/09/21 05/09/21 04:51 07:34 07:34 WBC RBC 2.46 L Hgb 6.3 L Hct 20.6 L MCV MCH 26 L RDW 15.5 H Plt Count 505 H Lymph % (Auto) Seg Neutrophils % Seg Neuts % (Manual) Lymphocytes % (Manual) Nucleated RBC % Seg Neutrophils # Lymphocytes # (Manual) ABG pO2 ABG HCO3 ABG Base Excess ABG Hemoglobin VBG pH Oxyhemoglobin Sodium Potassium Chloride Carbon Dioxide BUN 24 H Creatinine Glucose 307 H POC Glucose 266 H Hemoglobin A1c Lactic Acid Calcium 7.7 L Phosphorus Magnesium Alkaline Phosphatase C-Reactive Protein Total Protein Albumin Vancomycin Trough Crossmatch 05/09/21 05/09/21 05/10/21 12:20 16:01 05:34 WBC RBC Hgb Hct MCV MCH RDW Plt Count Lymph % (Auto) Seg Neutrophils % Seg Neuts % (Manual) Lymphocytes % (Manual) Nucleated RBC % Seg Neutrophils # Lymphocytes # (Manual) ABG pO2 ABG HCO3 ABG Base Excess ABG Hemoglobin VBG pH Oxyhemoglobin Sodium Potassium Chloride Carbon Dioxide BUN Creatinine Glucose POC Glucose 249 H 166 H 203 H Hemoglobin A1c Lactic Acid Calcium Phosphorus Magnesium Alkaline Phosphatase C-Reactive Protein Total Protein Albumin Vancomycin Trough Crossmatch 05/10/21 05/10/21 05/10/21 06:30 16:11 23:11 WBC RBC 2.62 L Hgb 6.8 L Hct 21.8 L MCV MCH 26 L RDW 15.6 H Plt Count 489 H Lymph % (Auto) Seg Neutrophils % Seg Neuts % (Manual) Lymphocytes % (Manual) Nucleated RBC % Seg Neutrophils # Lymphocytes # (Manual) ABG pO2 ABG HCO3 ABG Base Excess ABG Hemoglobin VBG pH Oxyhemoglobin Sodium Potassium Chloride Carbon Dioxide BUN Creatinine Glucose POC Glucose 210 H 134 H Hemoglobin A1c Lactic Acid Calcium Phosphorus Magnesium Alkaline Phosphatase C-Reactive Protein Total Protein Albumin Vancomycin Trough Crossmatch 05/11/21 05/11/21 05/11/21 05:29 12:07 18:11 WBC RBC Hgb Hct MCV MCH RDW Plt Count Lymph % (Auto) Seg Neutrophils % Seg Neuts % (Manual) Lymphocytes % (Manual) Nucleated RBC % Seg Neutrophils # Lymphocytes # (Manual) ABG pO2 ABG HCO3 ABG Base Excess ABG Hemoglobin VBG pH Oxyhemoglobin Sodium Potassium Chloride Carbon Dioxide BUN Creatinine Glucose POC Glucose 144 H 226 H 140 H Hemoglobin A1c Lactic Acid Calcium Phosphorus Magnesium Alkaline Phosphatase C-Reactive Protein Total Protein Albumin Vancomycin Trough Crossmatch 05/11/21 05/11/21 05/12/21 23:54 Unknown 10:01 WBC RBC 2.65 L Hgb 7.0 L Hct 22.1 L MCV MCH 26 L RDW 15.9 H Plt Count 518 H Lymph % (Auto) Seg Neutrophils % Seg Neuts % (Manual) Lymphocytes % (Manual) Nucleated RBC % Seg Neutrophils # Lymphocytes # (Manual) ABG pO2 ABG HCO3 ABG Base Excess ABG Hemoglobin VBG pH Oxyhemoglobin Sodium Potassium Chloride Carbon Dioxide BUN Creatinine Glucose POC Glucose 116 H 237 H Hemoglobin A1c Lactic Acid Calcium Phosphorus Magnesium Alkaline Phosphatase C-Reactive Protein Total Protein Albumin Vancomycin Trough Crossmatch 05/12/21 05/12/21 05/13/21 13:01 17:23 05:40 WBC RBC Hgb Hct MCV MCH RDW Plt Count Lymph % (Auto) Seg Neutrophils % Seg Neuts % (Manual) Lymphocytes % (Manual) Nucleated RBC % Seg Neutrophils # Lymphocytes # (Manual) ABG pO2 ABG HCO3 ABG Base Excess ABG Hemoglobin VBG pH Oxyhemoglobin Sodium Potassium Chloride Carbon Dioxide BUN Creatinine Glucose POC Glucose 227 H 158 H 126 H Hemoglobin A1c Lactic Acid Calcium Phosphorus Magnesium Alkaline Phosphatase C-Reactive Protein Total Protein Albumin Vancomycin Trough Crossmatch 05/13/21 05/13/21 05/13/21 09:16 09:16 11:50 WBC RBC 2.49 L Hgb 6.8 L Hct 20.7 L MCV MCH 27 L RDW 15.8 H Plt Count 535 H Lymph % (Auto) Seg Neutrophils % Seg Neuts % (Manual) Lymphocytes % (Manual) Nucleated RBC % Seg Neutrophils # Lymphocytes # (Manual) ABG pO2 ABG HCO3 ABG Base Excess ABG Hemoglobin VBG pH Oxyhemoglobin Sodium 135 L Potassium Chloride 97.0 L Carbon Dioxide BUN 25 H Creatinine Glucose 197 H POC Glucose 231 H Hemoglobin A1c Lactic Acid Calcium 7.8 L Phosphorus Magnesium Alkaline Phosphatase C-Reactive Protein Total Protein Albumin Vancomycin Trough Crossmatch 05/13/21 05/13/21 13:20 16:59 WBC RBC Hgb Hct MCV MCH RDW Plt Count Lymph % (Auto) Seg Neutrophils % Seg Neuts % (Manual) Lymphocytes % (Manual) Nucleated RBC % Seg Neutrophils # Lymphocytes # (Manual) ABG pO2 ABG HCO3 ABG Base Excess ABG Hemoglobin VBG pH Oxyhemoglobin Sodium Potassium Chloride Carbon Dioxide BUN Creatinine Glucose POC Glucose 130 H Hemoglobin A1c Lactic Acid Calcium Phosphorus Magnesium Alkaline Phosphatase C-Reactive Protein Total Protein Albumin Vancomycin Trough Crossmatch See Detail Chest x-ray: report reviewed, image reviewed Additional Studies: CHEST 1 VIEW 05/13/2021 10:51 AM INDICATION / CLINICAL INFORMATION: picc line position. COMPARISON: None available. FINDINGS: SUPPORT DEVICES: Right PICC line is satisfactory in position. NG tube extends within the stomach HEART / MEDIASTINUM: No significant abnormality. LUNGS / PLEURA: Increased interstitial prominence in bilateral lungs. Elevation right hemidiaphragm with right lower lung atelectasis No pneumothorax. Allied health notes reviewed: nursing
[2021-05-13] MEDS: SENNOSIDES 8.6 MG TAB PO SCH (21:23)
[2021-05-14] MEDS: FREE WATER PO SCH ×6 (00:24→20:13)
[2021-05-14] MEDS: INSULIN LISPRO 100 UNIT/ML SUB-Q SCH ×4 (00:25→17:02)
[2021-05-14 05:52] LABS: Hematocrit 23.3 % (30.3-42.9); Hemoglobin 7.7 gm/dl (10.1-14.3); Mean Corpuscular HGB Conc 33 % (30-34); Mean Corpuscular Volume 83 fl (79-97); Platelet Count 507 K/mm3 (140-440)
[2021-05-14 06:14] LABS: BUN/Creatinine Ratio 27; Blood Urea Nitrogen 24 mg/dL (7-17); Hemolysis Index 0
[2021-05-14] MEDS: METOCLOPRAMIDE 10 MG/10 ML ORAL LIQD FEEDTUBE SCH ×4 (07:30→21:04)
[2021-05-14] MEDS: INSULIN NPH/REGULAR 70/30 INJ SUB-Q SCH ×2 (08:00→17:00)
[2021-05-14] MEDS ORDERED: SINCALIDE 5 MCG VIAL IV ONE (08:39)
[2021-05-14] MEDS: FAMOTIDINE 20 MG TAB FEEDTUBE SCH (10:29)
--- NOTE | 2021-05-14 11:28 | Progress Note ---
Assessment and Plan Assessment and plan: This is a 51-year-old female with DM, noncompliance, obesity, arthritis and right knee surgery admitted for DKA, oropharyngeal dysphagia on tube feeding Speech therapist following, patient has septic arthritis and severe sepsis on long-term antibiotics Rocephin total 6 weeks., Anemia with 6.8 hemoglobin, received 1 unit PRBC yesterday, this morning hemoglobin 6.8, will recheck Hb and transfuse additional PRBC if needed -Anemia; Hb 6.8-6.9 Received 1 unit PRBC yesterday 05/05/2021 This morning Hb 6.9, transfuse additional 1 unit PRBC today Check stool for occult blood, monitor H&H 05/11 h/h--7.0/22.1 --Oropharyngeal dysphagia; Patient is on tube feeding till recently Now able to eat Patient could not be discharged before because of dysphagia and tube feeding Patient to be placed --Septic arthritis; knee; Ortho is planning knee/synovial debridement 04/30/2021;s/p arthrocentesis 05/03/2021 s/p Incision and drainage followed by arthroscopic exam of the right knee Continue antibiotics per ID total 6 weeks -- Sepsis, group B Streptococcus bacteremia, h/o right septic arthritis -Infectious disease consulted, appreciate recommendations -ABX therapy per ID: Ceftriaxone 2 g every 24 hours -Right knee x-ray shows large joint effusion s/p arthrocentesis Positive synovial fluid cultures, ID recommended total 6 weeks of Rocephin --Acute metabolic encephalopathy (improved significantly) Patient is more alert and awake, supportive care -Echocardiogram shows mildly dilated right heart chamber, mild to moderate TR, moderate pulmonary hypertension, RVSP 50-55, LVEF 45-50 --Respiratory: Acute hypoxic respiratory failure Nasal cannula oxygen, intermittent BiPAP Home O2 evaluation --Severe protein calorie malnutrition --Hypoalbuminemia, albumin 1.7 Dietitian/counseling specialist following Continue tube feeding, nutrition supplements Supportive care -- Hypernatremia (resolved) Closely monitor electrolytes --Leukocytosis/trending down Secondary to sepsis, continue antibiotics and supportive care Closely monitor --S/p DKA, h/o uncontrolled DM/present on admission -Hemoglobin A1c 18.3 Blood sugars moderate control -Avoid hypoglycemia Accu-Chek sliding scale coverage tube feeding Glucerna --DVT prophylaxis Subcu Lovenox --Full CODE STATUS Discharge planning issues Patient is able to eat Physical therapy Placement issues are Outpatient antibiotic therapy To discuss with case management Subjective Date of service: 05/12/21 Principal diagnosis: HAGMA; DKA; AMS; Obesity; Osteoarthritis; Hypercalcemia Interval history: Brief history and daily hospital course This is a 51-year-old female with DM, OA, medication noncompliance, obesity who presented to emergency department on 04/23 with complaints of weakness, elevated blood glucose levels, nausea, polydipsia, polyuria and diminished oral intake over the past week with worsening symptoms over the past 2 days. Patient acknowledges noncompliance with oral antihyperglycemic therapy. Patient was s een and evaluated in the emergency department and found to have lab work consistent with diabetic ketoacidosis, metabolic encephalopathy, metabolic acidosis and volume depletion. Patient was admitted to the hospital service to the ICU initiated DKA protocol with CCM consult. 04/24/21- Patient remains on DKA protocol. Still very lethargic this am, following simple commands. Rt. knee wound and swelling noted, and nursing staff also reported thick, white vaginal discharge. C/f sepsis, blood culture ordered, this am UA noted. Will start patient on PO difflucan for possible yeast infection, pending culture data. Anion GAP is still 18 this am, will continue DKA protocol for now. Continue to monitor electrolytes, serial BMP ordered. 04/25/21- Patient appears to be in distress this am, now on 3L NC. Lactic acidosis worsen overnight, X1L LR bolus adminstered. Ordered placed for stat ABGs. Blood culture growing GPC 3/4 bottles, patient remains afebrile with no leukocytosis. IV abx was escalated, ID consulted. Ortho consult is still pending, order placed for XR of the Rt. knee. Given patient worsen condition and high anio, gap, will continue insulin gtt for now. Low K and mg was repleted. C ontinue serial BMP,mg, and phosp 04/26/21- Patient appears more alert and awake this am, talkative, and following commands. Remains on DKA protocol, gap is closedX2, will transition patient to SSI and basal insulin and initiate enteral nutrition. Patient remains afebrile overnight, continue IV Abx per ID. 04/27/21- TASHA overnight. Patient mentation continue to improve. Worsening hyperglycemia, patient is tolerating TF. 70/30 added BID and SSI was adjusted to high dose Q4hrs. D/W CCM patient is stable for transfer to [facility] 04/28/21- Patient continue to improve. Remains drowsy this am, however, easily arousable. Now on 4L NC, still requiring Q4hrs NT suction due to increased secretions and weak cough. Continue to wean O2 supplement as tolerated, F/U CXR in the am. Continue IV Abx per ID. 04/29: Patient is awake and alert with strong cough and able to clear own airway. Ortho consult for right knee aspiration pending. 04/30: No acute events reported overnight, patient will be transferred to the floor. MR of right knee ordered. 05/01; patient had arthrocentesis 05/02; ID recommended total 6 weeks of Rocephin, case management to assist with antibiotics 05/02; patient is febrile, sepsis and positive cultures, currently on Rocephin, ID following 05/03; patient remains on tube feeding, speech therapist has not cleared for oral nutrition, aspiration risk Septic arthritis awaiting synovial debridement knee joint 05/04; blood sugars are uncontrolled Lantus insulin was stopped due to surgical procedure yesterday, Resumed Novolin 70/30, closely monitor and adjust the dose as needed 05/05; patient received 1 unit of PRBC yesterday, a.m. hemoglobin remains 6.8 after transfusion, recheck H&H, transfuse additional PRBC Patient remains on tube feedings, speech therapy following, on long-term antibiotics for her septic knee total 6 weeks 05/06/2021 Patient remains on tube feedings Speech therapy 6 weeks of antibiotics for septic arthritis If patient can swallow and tube feedings are discontinued--- patient can have IV antibiotics as outpatient Not ready for discharge 05/07: Patient seen and examined, remains quit ill, NG tube still in place hemoglobin is still 6.9 despite second unit transfusion done. Hard sure where this is coming from unsure why the patient is not able to eat. Will obtain MRI of the head to further evaluate and also obtain stool for occult blood to further elicit. In the meantime this is a painless delay in discharge and once that is rectified placement is already being pursued by case management. Dressing in the knee is in place. 05/08/20[address] in [address] 05/09/20[address] NG tube still in place 05/10/2021 Patient more alert and oriented NG tube still in place 05/11/2021 Patient is more alert and oriented NG tube is taken out 05/12/2021 Patient is able to eat Patient is alert and oriented Patient is ready for discharge and outpatient IV antibiotics for 4 to 5 weeks. 05/13/21 Anemia with Hgb 6.8. Transfuse 1 Unit PRBC 05/14/21 Patient transfused 1 Unit, now Hgfb 7.7 History Interval history: Hemoglobin 7.7 after PRBC transfused Hospitalist Physical - Physical exam Narrative exam: Gen: Not in acute distress, morbidly obese, HEENT:Normocephalic,atraumatic Neck:supple, No JVD Lungs:clear to auscultation bilaterally, no crackles, no wheeze Heart: S1 and S2 reg, no murmurs, rubs or gallop Abd:soft, non tender, non distended, normal bowel sounds Ext:No edema, no clubbing, no cyanosis, PICC line right Neuro:Awake,alert - Constitutional Vitals: Temp Pulse Resp BP Pulse Ox 98.3 F 95 H 18 172/86 99 05/14/21 04:10 05/14/21 04:10 05/14/21 04:10 05/14/21 04:10 05/14/21 04:10 General appearance: Present: no acute distress HEART Score - HEART Score Troponin: Troponin T < 0.010 ng/mL (0.00-0.029) 04/23/21 10:33 Results - Labs CBC & Chem 7: 05/14/21 05:00 05/14/21 05:00 Labs: Laboratory Last Values WBC 11.4 K/mm3 (4.5-11.0) H 05/14/21 05:00 RBC 2.80 M/mm3 (3.65-5.03) L 05/14/21 05:00 Hgb 7.7 gm/dl (10.1-14.3) L 05/14/21 05:00 Hct 23.3 % (30.3-42.9) L 05/14/21 05:00 MCV 83 fl (79-97) 05/14/21 05:00 MCH 27 pg (28-32) L 05/14/21 05:00 MCHC 33 % (30-34) 05/14/21 05:00 RDW 16.0 % (13.2-15.2) H 05/14/21 05:00 Plt Count 507 K/mm3 (140-440) H 05/14/21 05:00 Lymph % (Auto) 22.8 % (13.4-35.0) 05/07/21 Unknown Titus % (Auto) 4.4 % (0.0-7.3) 05/07/21 Unknown Eos % (Auto) 1.2 % (0.0-4.3) 05/07/21 Unknown Baso % (Auto) 0.9 % (0.0-1.8) 05/07/21 Unknown Lymph # (Auto) 1.7 K/mm3 (1.2-5.4) 05/07/21 Unknown Titus # (Auto) 0.3 K/mm3 (0.0-0.8) 05/07/21 Unknown Eos # (Auto) 0.1 K/mm3 (0.0-0.4) 05/07/21 Unknown Baso # (Auto) 0.1 K/mm3 (0.0-0.1) 05/07/21 Unknown Add Manual Diff Complete 04/25/21 08:10 Total Counted 100 04/25/21 08:10 Seg Neutrophils % 70.7 % (40.0-70.0) H 05/07/21 Unknown Seg Neuts % (Manual) 33.0 % (40.0-70.0) L 04/25/21 08:10 Band Neutrophils % 23.0 % 04/25/21 08:10 Lymphocytes % (Manual) 19.0 % (13.4-35.0) 04/25/21 08:10 Reactive Lymphs % (Man) 1.0 % 04/25/21 08:10 Monocytes % (Manual) 1.0 % (0.0-7.3) 04/25/21 08:10 Eosinophils % (Manual) 1.0 % (0.0-4.3) 04/25/21 08:10 Metamyelocytes % 3.0 % 04/23/21 10:33 Myelocytes % 22.0 % 04/25/21 08:10 Nucleated RBC % Not Reportable 04/25/21 08:10 Seg Neutrophils # 5.4 K/mm3 (1.8-7.7) 05/07/21 Unknown Seg Neutrophils # Man 1.9 K/mm3 (1.8-7.7) 04/25/21 08:10 Band Neutrophils # 1.3 K/mm3 04/25/21 08:10 Lymphocytes # (Manual) 1.1 K/mm3 (1.2-5.4) L 04/25/21 08:10 Abs React Lymphs (Man) 0.1 K/mm3 04/25/21 08:10 Monocytes # (Manual) 0.1 K/mm3 (0.0-0.8) 04/25/21 08:10 Eosinophils # (Manual) 0.1 K/mm3 (0.0-0.4) 04/25/21 08:10 Basophils # (Manual) 0.0 K/mm3 (0.0-0.1) 04/25/21 08:10 Metamyelocytes # 0.0 K/mm3 04/25/21 08:10 Myelocytes # 1.3 K/mm3 04/25/21 08:10 Promyelocytes # 0.0 K/mm3 04/25/21 08:10 Blast Cells # 0.0 K/mm3 04/25/21 08:10 WBC Morphology Not Reportable 04/25/21 08:10 Hypersegmented Neuts Not Reportable 04/25/21 08:10 Hyposegmented Neuts Not Reportable 04/25/21 08:10 Hypogranular Neuts Not Reportable 04/25/21 08:10 Smudge Cells Not Reportable 04/25/21 08:10 Toxic Granulation Not Reportable 04/25/21 08:10 Toxic Vacuolation Not Reportable 04/25/21 08:10 Dohle Bodies Not Reportable 04/25/21 08:10 Pelger-Huet Anomaly Not Reportable 04/25/21 08:10 Thierry Rods Not Reportable 04/25/21 08:10 Platelet Estimate Consistent w auto 04/25/21 08:10 Clumped Platelets Not Reportable 04/25/21 08:10 Plt Clumps, EDTA Not Reportable 04/25/21 08:10 Large Platelets Not Reportable 04/25/21 08:10 Giant Platelets Not Reportable 04/25/21 08:10 Platelet Satelliting Not Reportable 04/25/21 08:10 Plt Morphology Comment Not Reportable 04/25/21 08:10 RBC Morphology Not Reportable 04/25/21 08:10 Dimorphic RBCs Not Reportable 04/25/21 08:10 Polychromasia Not Reportable 04/25/21 08:10 Hypochromasia 1+ 04/25/21 08:10 Poikilocytosis Not Reportable 04/25/21 08:10 Anisocytosis Not Reportable 04/25/21 08:10 Microcytosis Not Reportable 04/25/21 08:10 Macrocytosis Not Reportable 04/25/21 08:10 Spherocytes Not Reportable 04/25/21 08:10 Pappenheimer Bodies Not Reportable 04/25/21 08:10 Sickle Cells Not Reportable 04/25/21 08:10 Target Cells Not Reportable 04/25/21 08:10 Tear Drop Cells Not Reportable 04/25/21 08:10 Ovalocytes Not Reportable 04/25/21 08:10 Helmet Cells Not Reportable 04/25/21 08:10 [place] Bodies Not Reportable 04/25/21 08:10 [place] Rings Not Reportable 04/25/21 08:10 [place] Cells Not Reportable 04/25/21 08:10 Bite Cells Not Reportable 04/25/21 08:10 Crenated Cell Not Reportable 04/25/21 08:10 Elliptocytes Not Reportable 04/25/21 08:10 Acanthocytes (Spur) Not Reportable 04/25/21 08:10 Rouleaux Not Reportable 04/25/21 08:10 Hemoglobin C Crystals Not Reportable 04/25/21 08:10 Schistocytes Not Reportable 04/25/21 08:10 Malaria parasites Not Reportable 04/25/21 08:10 Juan Bodies Not Reportable 04/25/21 08:10 Hem Pathologist Commnt No 04/25/21 08:10 ABG pH 7.426 pH Units (7.350-7.450) 04/25/21 11:20 ABG pCO2 25.3 mm Hg 04/25/21 11:20 ABG pO2 73.2 mm Hg (80.0-90.0) L 04/25/21 11:20 ABG HCO3 16.2 mmol/L (20.0-26.0) L 04/25/21 11:20 ABG O2 Saturation 96.9 % (95.0-99.0) 04/25/21 11:20 ABG O2 Content 11.6 (0.0-44) 04/25/21 11:20 ABG Base Excess -7.1 mmol/L (-2.0-3.0) L 04/25/21 11:20 ABG Hemoglobin 8.7 gm/dl (12.0-16.0) L 04/25/21 11:20 ABG Carboxyhemoglobin 1.6 % (0.0-5.0) 04/25/21 11:20 ABG Methemoglobin 0.6 % (0.0-1.5) 04/25/21 11:20 VBG pH 7.180 (7.320-7.420) L* 04/23/21 10:33 Oxyhemoglobin 94.8 % (95.0-99.0) L 04/25/21 11:20 FiO2 28 % 04/25/21 11:20 Sodium 135 mmol/L (137-145) L 05/14/21 05:00 Potassium 4.1 mmol/L (3.6-5.0) 05/14/21 05:00 Chloride 98.4 mmol/L (98-107) 05/14/21 05:00 Carbon Dioxide 25 mmol/L (22-30) 05/14/21 05:00 Anion Gap 16 mmol/L 05/14/21 05:00 BUN 24 mg/dL (7-17) H 05/14/21 05:00 Creatinine 0.9 mg/dL (0.6-1.2) 05/14/21 05:00 Estimated GFR > 60 ml/min 05/14/21 05:00 BUN/Creatinine Ratio 27 % 05/14/21 05:00 Glucose 134 mg/dL (65-100) H 05/14/21 05:00 POC Glucose 128 mg/dL (70-105) H 05/14/21 05:34 Hemoglobin A1c 18.3 % (4-6) H 04/24/21 04:16 Lactic Acid 1.70 mmol/L (0.7-2.0) 04/26/21 05:02 Uric Acid 7.5 mg/dL (3.5-7.6) 04/24/21 12:14 Calcium 8.0 mg/dL (8.4-10.2) L 05/14/21 05:00 Phosphorus 4.50 mg/dL (2.5-4.5) 04/30/21 04:41 Magnesium 2.10 mg/dL (1.7-2.3) 05/03/21 07:05 Total Bilirubin 0.50 mg/dL (0.1-1.2) 04/30/21 04:41 AST 12 units/L (5-40) 04/30/21 04:41 ALT 7 units/L (7-56) 04/30/21 04:41 Alkaline Phosphatase 171 units/L (35-129) H 04/30/21 04:41 Ammonia 37.0 umol/L (25-60) 04/23/21 10:33 Total Creatine Kinase 83 units/L (30-135) 04/23/21 10:33 Troponin T < 0.010 ng/mL (0.00-0.029) 04/23/21 10:33 C-Reactive Protein 24.30 mg/dL (0.00-1.30) H 04/24/21 18:24 Total Protein 6.1 g/dL (6.3-8.2) L 04/30/21 04:41 Albumin 1.4 g/dL (3.9-5) L 04/30/21 04:41 Albumin/Globulin Ratio 0.3 % 04/30/21 04:41 Procalcitonin 21.10 ng/mL (<0.15) 04/24/21 12:14 TSH 1.400 mlU/mL (0.270-4.200) 04/23/21 10:33 Urine Color Katie (Yellow) 04/27/21 16:16 Urine Turbidity Cloudy (Clear) 04/27/21 16:16 Urine pH 5.0 (5.0-7.0) 04/27/21 16:16 Ur Specific [place] 1.014 (1.003-1.030) 04/27/21 16:16 Urine Protein <15 mg/dl mg/dL (Negative) 04/27/21 16:16 Urine Glucose (UA) >=500 mg/dL (Negative) 04/27/21 16:16 Urine Ketones Neg mg/dL (Negative) 04/27/21 16:16 Urine Blood Neg (Negative) 04/27/21 16:16 Urine Nitrite Neg (Negative) 04/27/21 16:16 Urine Bilirubin Neg (Negative) 04/27/21 16:16 Urine Urobilinogen 2.0 mg/dL (<2.0) 04/27/21 16:16 Ur Leukocyte Esterase Neg (Negative) 04/27/21 16:16 Urine WBC (Auto) 1.0 /HPF (0.0-6.0) 04/27/21 16:16 Urine RBC (Auto) 1.0 /HPF (0.0-6.0) 04/27/21 16:16 U Epithel Cells (Auto) < 1.0 /HPF (0-13.0) 04/24/21 08:40 Urine Bacteria (Auto) 1+ /HPF (Negative) 04/27/21 16:16 Amorphous Crystals Few 04/27/21 16:16 Urine Yeast (Budding) 3+ /HPF 04/27/21 16:16 Vancomycin Trough 38.2 ug/mL (5.0-20.0) H 04/26/21 19:27 Coronavirus (PCR) Negative (Negative) 04/25/21 Unknown Blood Type A POSITIVE 05/13/21 13:20 Antibody Screen Negative 05/13/21 13:20 Crossmatch See Detail 05/13/21 13:20 Sanchez/IV: Voiding Method Indwelling Catheter Active Medications - Current Medications Current Medications: Generic Name Dose Route Start Last Admin Trade Name Freq PRN Reason Stop Dose Admin Acetaminophen 650 mg 04/23/21 11:54 05/13/21 17:29 Acetaminophen 325 Mg Tab PO 650 mg Q6H PRN Administration Pain MILD(1-3)/Fever >100.5/SMITH Albuterol 2.5 mg 05/02/21 12:56 05/07/21 04:22 Albuterol 2.5 Mg/3 Ml Nebu IH 2.5 mg Q4HRT PRN Administration Shortness Of Breath Lipase/Protease/Amylase 1 each 05/06/21 16:05 Lipase 10,500/Protease 25,000/Amylase 43,750 (Units) Dr Rodriguez FEEDTUBE PRN PRN For Clogged Feeding Tube Dextrose 50 ml 04/26/21 14:00 Dextrose 50% In Water (25gm) 50 Ml Syringe IV Q30MIN PRN Hypoglycemia Protocol Famotidine 20 mg 04/29/21 10:00 05/14/21 10:29 Famotidine 20 Mg Tab FEEDTUBE 20 mg DAILY AMIRA Administration Hydromorphone HCl 0.5 mg 04/23/21 11:54 05/12/21 01:19 Hydromorphone 1 Mg/1 Ml Inj IV 0.5 mg Q23H PRN Administration Pain , Severe (7-10) Cefazolin Sodium 2 gm/ Sodium 100 mls @ 200 mls/hr 05/02/21 14:00 05/14/21 08 :00 Chloride IV 06/14/21 20:29 200 mls/hr Q6H AMIRA Administration Protocol Insulin Human Isoph/Insulin Regular 48 unit 05/02/21 09:30 05/14/21 08:00 Insulin Nph/Regular 70/30 Inj SUB-Q 48 unit BIDDIAB AMIRA Administration Insulin Human Lispro 0 unit 04/29/21 12:00 05/14/21 05:36 Insulin Lispro 100 Unit/Ml SUB-Q Not Given Q6HR [facility] Protocol Metoclopramide HCl 5 mg 05/08/21 08:00 05/14/21 07:30 Metoclopramide 10 Mg/10 Ml Oral Liqd FEEDTUBE 5 mg ACHS AMIRA Administration Morphine Sulfate 2 mg 05/03/21 18:59 05/13/21 02:20 Morphine 2 Mg/1 Ml Inj IV 2 mg Q4H PRN Administration Pain, Moderate (4-6) Morphine Sulfate 4 mg 05/03/21 18:59 Morphine 4 Mg/1 Ml Inj IV Q4H PRN Pain , Severe (7-10) Oxycodone/Acetaminophen 1 tab 04/23/21 11:54 05/10/21 17:23 Oxycodone /Acetaminophen 5-325mg Tab PO 1 tab Q16H PRN Administration Pain, Moderate (4-6) Senna 17.2 mg 04/25/21 22:00 05/13/21 21:23 Sennosides 8.6 Mg Tab PO Not Given QHS AMIRA Simple Syrup 15 ml 05/06/21 16:05 Simple Syrup 15 Ml FEEDTUBE PRN PRN Hypoglycemia Simple Syrup 30 ml 05/06/21 16:05 Simple Syrup 15 Ml FEEDTUBE PRN PRN Hypoglycemia Sodium Bicarbonate 325 mg 05/06/21 16:05 Sodium Bicarbonate 325 Mg Tab FEEDTUBE PRN PRN For Clogged Feeding Tube Sodium Chloride 10 ml 04/23/21 22:00 05/14/21 10:29 Sodium Chloride 0.9% 10 Ml Flush Syringe IV 10 ml BID AMIRA Administration Sodium Chloride 10 ml 04/23/21 11:54 04/24/21 11:15 Sodium Chloride 0.9% 10 Ml Flush Syringe IV 10 ml PRN PRN Administration LINE FLUSH Nutrition/Malnutrition Assess - Dietary Evaluation Nutrition/Malnutrition Findings: Nutrition Notes Start: 04/26/21 09:53 Freq: Status: Active Protocol: Document 05/13/21 12:20 JAIMIE (Rec: 05/13/21 12:38 JAIMIE [email or web address]) Nutrition Notes Current Diet TF-Vital AF 1.2 Daniel @ 65 ml/hr (since D 05/06). Height 5 ft 8 in Weight 158.6 kg Whately Body Weight (kg) 63.63 BMI 53.1 Weight change and time frame No body weight change reported . Weight Status Morbidly Obese Subjective/Other Information RD consult for routine F/U on TF tolerance. No body weight change reported . TF well tolerated, continue as is. Percent of energy/protein needs met: Prescribed TF-Vital AF 1.2 Daniel @ 65 ml/hr provides for energy/protein needs (1,804 Kcal/77 g) 107% Kcal; 84% AA, during LOS. Nutrition Intervention Nutrition Support: Continue Vital AF 1.2 @ 65 ml/ hr with 100 ml water flush Q 4h. Kcal 1,860 Protein (gm) 116 Carbohydrates (gm) 171 Fat (gm) 84 Fluid (mL) 1,257 Fiber (gm) 8 % RDI: 107% Kcal; 84% AA. Goal #1 Provide at least 75% of energy /protein needs through Enteral Feeding during LOS. Goal #2 Maintain body weight within +/ -3% of admission body weight during LOS. Goal #3 Reach and maintain acceptable chemistry lab values during LOS. Follow-Up By: 05/20/21 Additional Comments Continue monitoring TF tolerance, Hydration, and BM.
--- NOTE | 2021-05-14 11:38 | Progress Note ---
Assessment and Plan Cultures: 04/24/2021 Blood culture: GBS Blood culture 04/26/2021: No growth 04/30/2021 R knee synovial fluid culture: Group B Streptococcus 05/03/2021 right knee OR culture: No growth A/P: 51 yo F with DM2, HTN, morbid obesity presented with sepsis #Acute sepsis: secondary to group B streptococcus bacteremia, source is R knee. #Group B streptococcus bacteremia secondary to R knee septic arthritis: Reports a history of previous right knee septic arthritis and has been treated with antibiotics at least twice in the past. X-ray shows large joint effusion. TTE without any evidence of valvular vegetations/endocarditis. Arthrocentesis culture also positive. Status post I&D followed by arthroscopic examination of right knee on 05/03/2021, as per operative note, "entered the joint proper with return of copious amounts of purulent material" and "significant cartilage degeneration from repeated infections". Will need a longer ~6 weeks course of IV abx after surgery due to her history of recurrence / chronicity and possibility of osteomyelitis, extensive cartilage degeneration. #DM2: tight glycemic control for best outcomes. Recs: -Continues to have low-grade fevers, elevated WBC. Follow-up ortho recs regarding CT R leg and knee there seems to be a collection in the right knee an terior to the femur with some air bubbles, may represent residual infection v/s related to recent surgery. Given ongoing intermittent fevers, suggestive of residual infection, she might need additional surgery, defer to orthopedics -continue high dose IV Ancef while inpatient, upon discharge, continue IV Ceftriaxone ending 06/14/2021, CM orders have already been placed. PICC in place Holly Leroy MD, FACP, [facility] O: [phone] F: [phone] Subjective Date of service: 05/14/21 Principal diagnosis: HAGMA; DKA; AMS; Obesity; Osteoarthritis; Hypercalcemia Interval history: No new complaints. Continues to have low-grade fevers. Objective - Exam Narrative Exam: Physical Exam: Constitutional: Alert, cooperative. Head, Ears, Nose: Normocephalic, atraumatic. External ears, nose normal Eyes: Conjunctivae/corneas clear. No icterus. No ptosis. Neck: Supple, no meningeal signs Cardiovascular: S1, S2 + Respiratory: Good air entry, clear to auscultation bilaterally GI: Soft, non-tender; bowel sounds normal. No peritoneal signs Musculoskeletal: Right knee with dressing +, swelling and tenderness + Skin: No rash or abscess Hem/Lymphatic: No palpable cervical or supraclavicular nodes. No lymphangitis Psych: Mood ok. Affect normal Neurological: Awake, alert, oriented. No gross abnormality - Constitutional Vitals: Vital Signs Temp Pulse Resp BP Pulse Ox 98.3 F 95 H 18 172/86 99 05/14/21 04:10 05/14/21 04:10 05/14/21 04:10 05/14/21 04:10 05/14/21 04:10 Temperature -Last 24 Hours Temperature 98.3 F Temperature 97.6 F Temperature 99.9 F Temperature 98.1 F Temperature 98.6 F Temperature 97.9 F Temperature 97.8 F - Labs CBC & Chem 7: 05/14/21 05:00 05/14/21 05:00 Labs: Abnormal lab results 05/03/21 05/09/21 05/13/21 Range/Units 18:00 02:57 11:50 WBC (4.5-11.0) K/mm3 RBC (3.65-5.03) M/mm3 Hgb (10.1-14.3) gm/dl Hct (30.3-42.9) % MCH (28-32) pg RDW (13.2-15.2) % Plt Count (140-440) K/mm3 Sodium (137-145) mmol/L BUN (7-17) mg/dL Glucose (65-100) mg/dL POC Glucose 231 H (70-105) mg/dL Calcium (8.4-10.2) mg/dL Crossmatch See Detail See Detail 05/13/21 05/13/21 05/14/21 Range/Units 13:20 16:59 05:00 WBC 11.4 H (4.5-11.0) K/mm3 RBC 2.80 L (3.65-5.03) M/mm3 Hgb 7.7 L (10.1-14.3) gm/dl Hct 23.3 L (30.3-42.9) % MCH 27 L (28-32) pg RDW 16.0 H (13.2-15.2) % Plt Count 507 H (140-440) K/mm3 Sodium (137-145) mmol/L BUN (7-17) mg/dL Glucose (65-100) mg/dL POC Glucose 130 H (70-105) mg/dL Calcium (8.4-10.2) mg/dL Crossmatch See Detail 05/14/21 05/14/21 Range/Units 05:00 05:34 WBC (4.5-11.0) K/mm3 RBC (3.65-5.03) M/mm3 Hgb (10.1-14.3) gm/dl Hct (30.3-42.9) % MCH (28-32) pg RDW (13.2-15.2) % Plt Count (140-440) K/mm3 Sodium 135 L (137-145) mmol/L BUN 24 H (7-17) mg/dL Glucose 134 H (65-100) mg/dL POC Glucose 128 H (70-105) mg/dL Calcium 8.0 L (8.4-10.2) mg/dL Crossmatch
--- NOTE | 2021-05-14 12:35 | Progress Note ---
Assessment and Plan 51 YO Female with DM, OA, Medication Noncompliance, Obesity presents to ED for evaluation. Patient reports "I feel sick". Patient states she had experienced weakness, elevated blood glucose levels, nausea, polydipsia, polyuria, as well a s diminished oral intake over the past 1 week with worsening symptoms over the last 2 days. Patient acknowledges noncompliance with oral antihyperglycemic therapy. Patient states that her weight has gotten progressively worse and and that she is "too weak to walk". EMS was notified and upon arrival the patient was found to be in distress and subsequent transported to [facility] for further care and evaluation of the aforementioned symptoms. The patient was seen and evaluated in the emergency department. All lab and imaging studies reviewed. The patient was found to have diabetic ketoacidosis, metabolic encephalopathy, as well as metabolic acidosis, and volume depletion. Patient mated to ICU and initiated on DKA protocol. Critical care team consulted in ED. Patient has fever, chills, chest pain, palpitation, productive cough, skin rash, recent contact, known exposure to COVID-1 Patients sullivan virus PCR is negative. Patient is alert and awake. Patient is on 3 litres O2. O2 saturation 100%. No complaint of chest pain, shortness of breath, or cough. Patient running low grade temp at times. Mild leukocytosis. Blood pressure 140/78, Pulse 100, respirations 18. Today's Hgb is 7.7. Patient received a blood transfusion. Chest xray done 04/29/21 reported Low lung volumes with bibasilar opacities/atelectasis persists, unchanged. No pneumothorax. Chest xray done 05/08/21 reported table, mild increased densities and atelectasis in the lower lungs. No pneumothorax. Chest xray done 05/13/21 reported Increased interstitial prominence in bilateral lungs. Elevation right hemidiaphragm with right lower lung atelectasis No pneumothorax. Patient had right knee surgery. Complaining of slight pain at the right knee. Patient is on Cefazolin, Albuterol aerosol treatments and famotidine. - Patient Problems (1) High anion gap metabolic acidosis Current Visit: Yes Status: Acute Plan to address problem: Improving. Recent anion gap is 12 (2) DKA (diabetic ketoacidosis) Current Visit: Yes Status: Acute Qualifiers: Diabetes mellitus type: type 1 Plan to address problem: Improving. Management as primary care. (3) Metabolic encephalopathy Current Visit: Yes Status: Acute Plan to address problem: Management as primary care and neurology. (4) Abscess of right foot Current Visit: No Status: Acute Plan to address problem: Management as primary care and ID Patient on Cefazolin (5) Diabetic ulcer of right foot associated with diabetes mellitus due to underlying condition, with fat layer exposed Current Visit: No Status: Acute Plan to address problem: Management as per primary care. (6) Hypertension Current Visit: No Status: Chronic Plan to address problem: Management as primary care. Subjective Date of service: 05/14/21 Principal diagnosis: HAGMA; DKA; AMS; Obesity; Osteoarthritis; Hypercalcemia Interval history: 51 YO Female with DM, OA, Medication Noncompliance, Obesity presents to ED for evaluation. Patient reports "I feel sick". Patient states she had experienced weakness, elevated blood glucose levels, nausea, polydipsia, polyuria, as well as diminished oral intake over the past 1 week with worsening symptoms over the last 2 days. Patient acknowledges noncompliance with oral antihyperglycemic therapy. Patient states that her weight has gotten progressively worse and and that she is "too weak to walk". EMS was notified and upon arrival the patient was found to be in distress and subsequent transported to [facility] for further care and evaluation of the aforementioned symptoms. The patient was seen and evaluated in the emergency department. All lab and imaging studies reviewed. The patient was found to have diabetic ketoacidosis, metabolic encephalopathy, as well as metabolic acidosis, and volume depletion. Patient mated to ICU and initiated on DKA protocol. Critical care team consulted in ED. Patient has fever, chills, chest pain, palpitation, productive cough, skin rash, recent contact, known exposure to COVID-1 Patients sullivan virus PCR is negative. Patient is alert and awake. Patient is on 3 litres O2. O2 saturation 100%. No complaint of chest pain, shortness of breath, or cough. Patient running low grade temp at times. Mild leukocytosis. Blood pressure 140/78, Pulse 100, respirations 18. Today's Hgb is 7.7. Patient received a blood transfusion. Chest xray done 04/29/21 reported Low lung volumes with bibasilar opaci ties/atelectasis persists, unchanged. No pneumothorax. Chest xray done 05/08/21 reported table, mild increased densities and atelectasis in the lower lungs. No pneumothorax. Chest xray done 05/13/21 reported Increased interstitial prominence in bilateral lungs. Elevation right hemidiaphragm with right lower lung atelectasis No pneumothorax. Patient had right knee surgery. Complaining of slight pain at the right knee. Patient is on Cefazolin, Albuterol aerosol treatments and famotidine. Objective Vital Signs - 12hr 05/14/21 05/14/21 04:10 10:00 Temperature 98.3 F Pulse Rate 95 H Respiratory 18 Rate Blood Pressure 172/86 O2 Sat by Pulse 99 97 Oximetry Constitutional: no acute distress, alert Eyes: non-icteric ENT: oropharynx moist Neck: supple, no lymphadenopathy, no JVD Effort: normal Ascultation: Bilateral: diminished breath sounds, rhonchi Percussion: Bilateral: not dull Cardiovascular: regular rate and rhythm, other (S1,S2) Gastrointestinal: hypoactive bowel sounds, soft, non-tender, non-distended (protuberant) Integumentary: rash (perineal) Extremities: no cyanosis, no edema, pulses normal, no ischemia or petechiae, other (Right knee surgery.) Neurologic: normal mental status, non-focal exam, pupils equal and round, other Psychiatric: mood appropriate, affect normal CBC and BMP: 05/15/21 04:58 05/14/21 05:00 ABG, PT/INR, D-dimer: ABG ABG pH 7.426 pH Units (7.350-7.450) 04/25/21 11:20 ABG pCO2 25.3 mm Hg 04/25/21 11:20 ABG pO2 73.2 mm Hg (80.0-90.0) L 04/25/21 11:20 ABG O2 Saturation 96.9 % (95.0-99.0) 04/25/21 11:20 Abnormal lab findings: Abnormal Labs 04/23/21 04/23/21 04/23/21 10:33 10:33 10:33 WBC RBC Hgb Hct MCV MCH 26 L RDW Plt Count Lymph % (Auto) Seg Neutrophils % Seg Neuts % (Manual) Lymphocytes % (Manual) 7.0 L Nucleated RBC % 2.0 H Seg Neutrophils # Lymphocytes # (Manual) 0.5 L ABG pO2 ABG HCO3 ABG Base Excess ABG Hemoglobin VBG pH 7.180 L* Oxyhemoglobin Sodium 122 L Potassium 3.0 L Chloride 84.8 L Carbon Dioxide 6 L* BUN 49 H Creatinine 1.4 H Glucose 775 H* POC Glucose Hemoglobin A1c Lactic Acid Calcium 12.2 H* Phosphorus Magnesium Alkaline Phosphatase 130 H C-Reactive Protein Total Protein Albumin 2.9 L Vancomycin Trough Crossmatch 04/23/21 04/23/21 04/23/21 10:40 12:44 14:01 WBC RBC Hgb Hct MCV MCH RDW Plt Count Lymph % (Auto) Seg Neutrophils % Seg Neuts % (Manual) Lymphocytes % (Manual) Nucleated RBC % Seg Neutrophils # Lymphocytes # (Manual) ABG pO2 ABG HCO3 ABG Base Excess ABG Hemoglobin VBG pH Oxyhemoglobin Sodium Potassium Chloride Carbon Dioxide BUN Creatinine Glucose POC Glucose > 600 H 550 H Hemoglobin A1c Lactic Acid Calcium Phosphorus 1.50 L Magnesium Alkaline Phosphatase C-Reactive Protein Total Protein Albumin Vancomycin Trough Crossmatch 04/23/21 04/23/21 04/23/21 14:01 14:04 14:56 WBC RBC Hgb Hct MCV MCH RDW Plt Count Lymph % (Auto) Seg Neutrophils % Seg Neuts % (Manual) Lymphocytes % (Manual) Nucleated RBC % Seg Neutrophils # Lymphocytes # (Manual) ABG pO2 ABG HCO3 ABG Base Excess ABG Hemoglobin VBG pH Oxyhemoglobin Sodium 125 L Potassium 3.0 L Chloride 89.2 L Carbon Dioxide 6 L* BUN 45 H Creatinine 1.3 H Glucose 594 H* POC Glucose 518 H 425 H Hemoglobin A1c Lactic Acid Calcium 10.9 H Phosphorus Magnesium Alkaline Phosphatase C-Reactive Protein Total Protein Albumin Vancomycin Trough Crossmatch 04/23/21 04/23/21 04/23/21 15:43 15:48 17:21 WBC RBC Hgb Hct MCV MCH RDW Plt Count Lymph % (Auto) Seg Neutrophils % Seg Neuts % (Manual) Lymphocytes % (Manual) Nucleated RBC % Seg Neutrophils # Lymphocytes # (Manual) ABG pO2 ABG HCO3 ABG Base Excess ABG Hemoglobin VBG pH Oxyhemoglobin Sodium 131 L Potassium 2.9 L* Chloride Carbon Dioxide 8 L* BUN 39 H Creatinine Glucose 434 H POC Glucose 410 H 407 H Hemoglobin A1c Lactic Acid Calcium 10.3 H Phosphorus Magnesium Alkaline Phosphatase C-Reactive Protein Total Protein Albumin Vancomycin Trough Crossmatch 04/23/21 04/23/2104/23/21 18:07 19:13 19:54 WBC RBC Hgb Hct MCV MCH RDW Plt Count Lymph % (Auto) Seg Neutrophils % Seg Neuts % (Manual) Lymphocytes % (Manual) Nucleated RBC % Seg Neutrophils # Lymphocytes # (Manual) ABG pO2 ABG HCO3 ABG Base Excess ABG Hemoglobin VBG pH Oxyhemoglobin Sodium 131 L Potassium 3.1 L Chloride 95.9 L Carbon Dioxide 7 L* BUN 39 H Creatinine Glucose 391 H POC Glucose 428 H 350 H Hemoglobin A1c Lactic Acid Calcium 11.2 H Phosphorus Magnesium Alkaline Phosphatase C-Reactive Protein Total Protein Albumin Vancomycin Trough Crossmatch 04/23/21 04/23/21 04/23/21 19:54 20:12 20:59 WBC RBC Hgb Hct MCV MCH RDW Plt Count Lymph % (Auto) Seg Neutrophils % Seg Neuts % (Manual) Lymphocytes % (Manual) Nucleated RBC % Seg Neutrophils # Lymphocytes # (Manual) ABG pO2 ABG HCO3 ABG Base Excess ABG Hemoglobin VBG pH Oxyhemoglobin Sodium Potassium Chloride Carbon Dioxide BUN Creatinine Glucose POC Glucose 365 H 286 H Hemoglobin A1c Lactic Acid Calcium Phosphorus 1.10 L D Magnesium Alkaline Phosphatase C-Reactive Protein Total Protein Albumin Vancomycin Trough Crossmatch 04/23/21 04/23/21 04/23/21 22:05 22:23 22:59 WBC RBC Hgb Hct MCV MCH RDW Plt Count Lymph % (Auto) Seg Neutrophils % Seg Neuts % (Manual) Lymphocytes % (Manual) Nucleated RBC % Seg Neutrophils # Lymphocytes # (Manual) ABG pO2 ABG HCO3 ABG Base Excess ABG Hemoglobin VBG pH Oxyhemoglobin Sodium 135 L Potassium 3.2 L Chloride Carbon Dioxide 10 L BUN 35 H Creatinine Glucose 300 H POC Glucose 257 H 238 H Hemoglobin A1c Lactic Acid Calcium 11.6 H Phosphorus Magnesium Alkaline Phosphatase C-Reactive Protein Total Protein Albumin Vancomycin Trough Crossmatch 04/23/21 04/24/21 04/24/21 23:57 00:10 00:56 WBC RBC Hgb Hct MCV MCH RDW Plt Count Lymph % (Auto) Seg Neutrophils % Seg Neuts % (Manual) Lymphocytes % (Manual) Nucleated RBC % Seg Neutrophils # Lymphocytes # (Manual) ABG pO2 ABG HCO3 ABG Base Excess ABG Hemoglobin VBG pH Oxyhemoglobin Sodium Potassium 3.2 L Chloride Carbon Dioxide 13 L BUN 33 H Creatinine Glucose 267 H POC Glucose 223 H 254 H Hemoglobin A1c Lactic Acid Calcium 11.2 H Phosphorus 1.20 L Magnesium Alkaline Phosphatase C-Reactive Protein Total Protein Albumin Vancomycin Trough Crossmatch 04/24/21 04/24/21 04/24/21 01:58 02:58 03:57 WBC RBC Hgb Hct MCV MCH RDW Plt Count Lymph % (Auto) Seg Neutrophils % Seg Neuts % (Manual) Lymphocytes % (Manual) Nucleated RBC % Seg Neutrophils # Lymphocytes # (Manual) ABG pO2 ABG HCO3 ABG Base Excess ABG Hemoglobin VBG pH Oxyhemoglobin Sodium Potassium Chloride Carbon Dioxide BUN Creatinine Glucose POC Glucose 264 H 251 H 200 H Hemoglobin A1c Lactic Acid Calcium Phosphorus Magnesium Alkaline Phosphatase C-Reactive Protein Total Protein Albumin Vancomycin Trough Crossmatch 04/24/21 04/24/21 04/24/21 04:16 04:16 04:16 WBC RBC Hgb Hct MCV MCH 26 L RDW Plt Count Lymph % (Auto) Seg Neutrophils % Seg Neuts % (Manual) Lymphocytes % (Manual) Nucleated RBC % Seg Neutrophils # Lymphocytes # (Manual) ABG pO2 ABG HCO3 ABG Base Excess ABG Hemoglobin VBG pH Oxyhemoglobin Sodium Potassium Chloride 108.0 H Carbon Dioxide 13 L BUN 31 H Creatinine Glucose 243 H POC Glucose Hemoglobin A1c 18.3 H Lactic Acid Calcium 10.9 H Phosphorus 1.80 L D Magnesium Alkaline Phosphatase C-Reactive Protein Total Protein Albumin Vancomycin Trough Crossmatch 04/24/21 04/24/21 04/24/21 04:59 05:53 06:51 WBC RBC Hgb Hct MCV MCH RDW Plt Count Lymph % (Auto) Seg Neutrophils % Seg Neuts % (Manual) Lymphocytes % (Manual) Nucleated RBC % Seg Neutrophils # Lymphocytes # (Manual) ABG pO2 ABG HCO3 ABG Base Excess ABG Hemoglobin VBG pH Oxyhemoglobin Sodium Potassium Chloride Carbon Dioxide BUN Creatinine Glucose POC Glucose 208 H 213 H 161 H Hemoglobin A1c Lactic Acid Calcium Phosphorus Magnesium Alkaline Phosphatase C-Reactive Protein Total Protein Albumin Vancomycin Trough Crossmatch 04/24/21 04/24/21 04/24/21 07:58 09:21 10:06 WBC RBC Hgb Hct MCV MCH RDW Plt Count Lymph % (Auto) Seg Neutrophils % Seg Neuts % (Manual) Lymphocytes % (Manual) Nucleated RBC % Seg Neutrophils # Lymphocytes # (Manual) ABG pO2 ABG HCO3 ABG Base Excess ABG Hemoglobin VBG pH Oxyhemoglobin Sodium Potassium Chloride Carbon Dioxide BUN Creatinine Glucose POC Glucose 149 H 178 H 164 H Hemoglobin A1c Lactic Acid Calcium Phosphorus Magnesium Alkaline Phosphatase C-Reactive Protein Total Protein Albumin Vancomycin Trough Crossmatch 04/24/21 04/24/21 04/24/21 11:03 12:07 12:14 WBC RBC Hgb Hct MCV MCH RDW Plt Count Lymph % (Auto) Seg Neutrophils % Seg Neuts % (Manual) Lymphocytes % (Manual) Nucleated RBC % Seg Neutrophils # Lymphocytes # (Manual) ABG pO2 ABG HCO3 ABG Base Excess ABG Hemoglobin VBG pH Oxyhemoglobin Sodium Potassium 3.2 L Chloride 108.7 H Carbon Dioxide 16 L BUN 24 H Creatinine Glucose 160 H POC Glucose 157 H 142 H Hemoglobin A1c Lactic Acid Calcium 10.5 H Phosphorus 0.70 L* D Magnesium Alkaline Phosphatase C-Reactive Protein Total Protein Albumin Vancomycin Trough Crossmatch 04/24/21 04/24/21 04/24/21 12:14 13:02 14:00 WBC RBC Hgb Hct MCV MCH RDW Plt Count Lymph % (Auto) Seg Neutrophils % Seg Neuts % (Manual) Lymphocytes % (Manual) Nucleated RBC % Seg Neutrophils # Lymphocytes # (Manual) ABG pO2 ABG HCO3 ABG Base Excess ABG Hemoglobin VBG pH Oxyhemoglobin Sodium Potassium Chloride Carbon Dioxide BUN Creatinine Glucose POC Glucose 138 H 150 H Hemoglobin A1c Lactic Acid 2.50 H* Calcium Phosphorus Magnesium Alkaline Phosphatase C-Reactive Protein Total Protein Albumin Vancomycin Trough Crossmatch 04/24/21 04/24/21 04/24/21 15:14 16:07 17:11 WBC RBC Hgb Hct MCV MCH RDW Plt Count Lymph % (Auto) Seg Neutrophils % Seg Neuts % (Manual) Lymphocytes % (Manual) Nucleated RBC % Seg Neutrophils # Lymphocytes # (Manual) ABG pO2 ABG HCO3 ABG Base Excess ABG Hemoglobin VBG pH Oxyhemoglobin Sodium Potassium Chloride Carbon Dioxide BUN Creatinine Glucose POC Glucose 145 H 148 H 156 H Hemoglobin A1c Lactic Acid Calcium Phosphorus Magnesium Alkaline Phosphatase C-Reactive Protein Total Protein Albumin Vancomycin Trough Crossmatch 04/24/21 04/24/21 04/24/21 18:12 18:24 19:55 WBC RBC Hgb Hct MCV MCH RDW Plt Count Lymph % (Auto) Seg Neutrophils % Seg Neuts % (Manual) Lymphocytes % (Manual) Nucleated RBC % Seg Neutrophils # Lymphocytes # (Manual) ABG pO2 ABG HCO3 ABG Base Excess ABG Hemoglobin VBG pH Oxyhemoglobin Sodium Potassium Chloride 109.2 H Carbon Dioxide 15 L BUN 22 H Creatinine Glucose 159 H POC Glucose 153 H 176 H Hemoglobin A1c Lactic Acid Calcium Phosphorus 1.80 L D Magnesium Alkaline Phosphatase C-Reactive Protein 24.30 H Total Protein Albumin Vancomycin Trough Crossmatch 04/24/21 04/24/21 04/24/21 20:55 22:04 23:02 WBC RBC Hgb Hct MCV MCH RDW Plt Count Lymph % (Auto) Seg Neutrophils % Seg Neuts % (Manual) Lymphocytes % (Manual) Nucleated RBC % Seg Neutrophils # Lymphocytes # (Manual) ABG pO2 ABG HCO3 ABG Base Excess ABG Hemoglobin VBG pH Oxyhemoglobin Sodium Potassium Chloride Carbon Dioxide BUN Creatinine Glucose POC Glucose 146 H 169 H Hemoglobin A1c Lactic Acid 3.10 H* Calcium Phosphorus Magnesium Alkaline Phosphatase C-Reactive Protein Total Protein Albumin Vancomycin Trough Crossmatch 04/24/21 04/25/21 04/25/21 23:13 00:05 01:28 WBC RBC Hgb Hct MCV MCH RDW Plt Count Lymph % (Auto) Seg Neutrophils % Seg Neuts % (Manual) Lymphocytes % (Manual) Nucleated RBC % Seg Neutrophils # Lymphocytes # (Manual) ABG pO2 ABG HCO3 ABG Base Excess ABG Hemoglobin VBG pH Oxyhemoglobin Sodium Potassium Chloride Carbon Dioxide BUN Creatinine Glucose POC Glucose 144 H 150 H 142 H Hemoglobin A1c Lactic Acid Calcium Phosphorus Magnesium Alkaline Phosphatase C-Reactive Protein Total Protein Albumin Vancomycin Trough Crossmatch 04/25/21 04/25/21 04/25/21 02:03 03:07 04:17 WBC RBC Hgb Hct MCV MCH RDW Plt Count Lymph % (Auto) Seg Neutrophils % Seg Neuts % (Manual) Lymphocytes % (Manual) Nucleated RBC % Seg Neutrophils # Lymphocytes # (Manual) ABG pO2 ABG HCO3 ABG Base Excess ABG Hemoglobin VBG pH Oxyhemoglobin Sodium Potassium Chloride Carbon Dioxide BUN Creatinine Glucose POC Glucose 148 H 161 H 158 H Hemoglobin A1c Lactic Acid Calcium Phosphorus Magnesium Alkaline Phosphatase C-Reactive Protein Total Protein Albumin Vancomycin Trough Crossmatch 04/25/21 04/25/21 04/25/21 05:48 06:52 07:58 WBC RBC Hgb Hct MCV MCH RDW Plt Count Lymph % (Auto) Seg Neutrophils % Seg Neuts % (Manual) Lymphocytes % (Manual) Nucleated RBC % Seg Neutrophils # Lymphocytes # (Manual) ABG pO2 ABG HCO3 ABG Base Excess ABG Hemoglobin VBG pH Oxyhemoglobin Sodium Potassium Chloride Carbon Dioxide BUN Creatinine Glucose POC Glucose 136 H 137 H 143 H Hemoglobin A1c Lactic Acid Calcium Phosphorus Magnesium Alkaline Phosphatase C-Reactive Protein Total Protein Albumin Vancomycin Trough Crossmatch 04/25/21 04/25/21 04/25/21 08:10 08:10 08:10 WBC RBC Hgb 9.5 L Hct 28.8 L MCV MCH 26 L RDW Plt Count Lymph % (Auto) Seg Neutrophils % Seg Neuts % (Manual) 33.0 L Lymphocytes % (Manual) Nucleated RBC % Seg Neutrophils # Lymphocytes # (Manual) 1.1 L ABG pO2 ABG HCO3 ABG Base Excess ABG Hemoglobin VBG pH Oxyhemoglobin Sodium Potassium 3.3 L Chloride 109.0 H Carbon Dioxide 16 L BUN 23 H Creatinine Glucose 151 H POC Glucose Hemoglobin A1c Lactic Acid 2.10 H* Calcium Phosphorus 2.20 L D Magnesium 1.60 L Alkaline Phosphatase C-Reactive Protein Total Protein Albumin Vancomycin Trough Crossmatch 04/25/21 04/25/21 04/25/21 08:53 09:59 11:20 WBC RBC Hgb Hct MCV MCH RDW Plt Count Lymph % (Auto) Seg Neutrophils % Seg Neuts % (Manual) Lymphocytes % (Manual) Nucleated RBC % Seg Neutrophils # Lymphocytes # (Manual) ABG pO2 ABG HCO3 ABG Base Excess ABG Hemoglobin VBG pH Oxyhemoglobin Sodium Potassium Chloride Carbon Dioxide BUN Creatinine Glucose POC Glucose 132 H 141 H 141 H Hemoglobin A1c Lactic Acid Calcium Phosphorus Magnesium Alkaline Phosphatase C-Reactive Protein Total Protein Albumin Vancomycin Trough Crossmatch 04/25/21 04/25/21 04/25/21 11:20 12:04 12:26 WBC RBC Hgb Hct MCV MCH RDW Plt Count Lymph % (Auto) Seg Neutrophils % Seg Neuts % (Manual) Lymphocytes % (Manual) Nucleated RBC % Seg Neutrophils # Lymphocytes # (Manual) ABG pO2 73.2 L ABG HCO3 16.2 L ABG Base Excess -7.1 L ABG Hemoglobin 8.7 L VBG pH Oxyhemoglobin 94.8 L Sodium Potassium 3.4 L Chloride 109.5 H Carbon Dioxide 14 L BUN 21 H Creatinine Glucose 155 H POC Glucose 129 H Hemoglobin A1c Lactic Acid Calcium Phosphorus 1.90 L Magnesium 1.60 L Alkaline Phosphatase C-Reactive Protein Total Protein Albumin Vancomycin Trough Crossmatch 04/25/21 04/25/21 04/25/21 13:04 13:58 15:09 WBC RBC Hgb Hct MCV MCH RDW Plt Count Lymph % (Auto) Seg Neutrophils % Seg Neuts % (Manual) Lymphocytes % (Manual) Nucleated RBC % Seg Neutrophils # Lymphocytes # (Manual) ABG pO2 ABG HCO3 ABG Base Excess ABG Hemoglobin VBG pH Oxyhemoglobin Sodium Potassium Chloride Carbon Dioxide BUN Creatinine Glucose POC Glucose 135 H 140 H 134 H Hemoglobin A1c Lactic Acid Calcium Phosphorus Magnesium Alkaline Phosphatase C-Reactive Protein Total Protein Albumin Vancomycin Trough Crossmatch 04/25/21 04/25/21 04/25/21 16:00 18:56 18:58 WBC RBC Hgb Hct MCV MCH RDW Plt Count Lymph % (Auto) Seg Neutrophils % Seg Neuts % (Manual) Lymphocytes % (Manual) Nucleated RBC % Seg Neutrophils # Lymphocytes # (Manual) ABG pO2 ABG HCO3 ABG Base Excess ABG Hemoglobin VBG pH Oxyhemoglobin Sodium Potassium Chloride Carbon Dioxide BUN Creatinine Glucose POC Glucose 135 H 170 H Hemoglobin A1c Lactic Acid 2.10 H* Calcium Phosphorus Magnesium Alkaline Phosphatase C-Reactive Protein Total Protein Albumin Vancomycin Trough Crossmatch 04/25/21 04/25/21 04/25/21 18:58 19:52 20:53 WBC RBC Hgb Hct MCV MCH RDW Plt Count Lymph % (Auto) Seg Neutrophils % Seg Neuts % (Manual) Lymphocytes % (Manual) Nucleated RBC % Seg Neutrophils # Lymphocytes # (Manual) ABG pO2 ABG HCO3 ABG Base Excess ABG Hemoglobin VBG pH Oxyhemoglobin Sodium Potassium Chloride 110.1 H Carbon Dioxide 13 L BUN 23 H Creatinine Glucose 206 H POC Glucose 162 H 171 H Hemoglobin A1c Lactic Acid Calcium Phosphorus Magnesium 2.40 H Alkaline Phosphatase C-Reactive Protein Total Protein Albumin Vancomycin Trough Crossmatch 04/25/21 04/25/21 04/26/21 21:54 22:53 00:03 WBC RBC Hgb Hct MCV MCH RDW Plt Count Lymph % (Auto) Seg Neutrophils % Seg Neuts % (Manual) Lymphocytes % (Manual) Nucleated RBC % Seg Neutrophils # Lymphocytes # (Manual) ABG pO2 ABG HCO3 ABG Base Excess ABG Hemoglobin VBG pH Oxyhemoglobin Sodium Potassium Chloride Carbon Dioxide BUN Creatinine Glucose POC Glucose 139 H 140 H 129 H Hemoglobin A1c Lactic Acid Calcium Phosphorus Magnesium Alkaline Phosphatase C-Reactive Protein Total Protein Albumin Vancomycin Trough Crossmatch 04/26/21 04/26/21 04/26/21 00:38 01:00 01:56 WBC RBC Hgb Hct MCV MCH RDW Plt Count Lymph % (Auto) Seg Neutrophils % Seg Neuts % (Manual) Lymphocytes % (Manual) Nucleated RBC % Seg Neutrophils # Lymphocytes # (Manual) ABG pO2 ABG HCO3 ABG Base Excess ABG Hemoglobin VBG pH Oxyhemoglobin Sodium Potassium Chloride 112.6 H Carbon Dioxide 14 L BUN 22 H Creatinine Glucose 149 H POC Glucose 126 H 137 H Hemoglobin A1c Lactic Acid Calcium Phosphorus Magnesium 2.40 H Alkaline Phosphatase C-Reactive Protein Total Protein Albumin Vancomycin Trough Crossmatch 04/26/21 04/26/21 04/26/21 02:54 04:04 05:02 WBC RBC 3.44 L Hgb 8.9 L Hct 26.9 L MCV 78 L MCH 26 L RDW Plt Count Lymph % (Auto) Seg Neutrophils % Seg Neuts % (Manual) Lymphocytes % (Manual) Nucleated RBC % Seg Neutrophils # Lymphocytes # (Manual) ABG pO2 ABG HCO3 ABG Base Excess ABG Hemoglobin VBG pH Oxyhemoglobin Sodium Potassium Chloride Carbon Dioxide BUN Creatinine Glucose POC Glucose 132 H 130 H Hemoglobin A1c Lactic Acid Calcium Phosphorus Magnesium Alkaline Phosphatase C-Reactive Protein Total Protein Albumin Vancomycin Trough Crossmatch 04/26/21 04/26/21 04/26/21 05:02 05:03 06:06 WBC RBC Hgb Hct MCV MCH RDW Plt Count Lymph % (Auto) Seg Neutrophils % Seg Neuts % (Manual) Lymphocytes % (Manual) Nucleated RBC % Seg Neutrophils # Lymphocytes # (Manual) ABG pO2 ABG HCO3 ABG Base Excess ABG Hemoglobin VBG pH Oxyhemoglobin Sodium Potassium Chloride 114.8 H Carbon Dioxide 14 L BUN 22 H Creatinine Glucose 129 H POC Glucose 115 H 129 H Hemoglobin A1c Lactic Acid Calcium Phosphorus Magnesium Alkaline Phosphatase C-Reactive Protein Total Protein Albumin Vancomycin Trough Crossmatch 04/26/21 04/26/21 04/26/21 06:53 07:58 09:09 WBC RBC Hgb Hct MCV MCH RDW Plt Count Lymph % (Auto) Seg Neutrophils % Seg Neuts % (Manual) Lymphocytes % (Manual) Nucleated RBC % Seg Neutrophils # Lymphocytes # (Manual) ABG pO2 ABG HCO3 ABG Base Excess ABG Hemoglobin VBG pH Oxyhemoglobin Sodium Potassium Chloride Carbon Dioxide BUN Creatinine Glucose POC Glucose 121 H 124 H 125 H Hemoglobin A1c Lactic Acid Calcium Phosphorus Magnesium Alkaline Phosphatase C-Reactive Protein Total Protein Albumin Vancomycin Trough Crossmatch 04/26/21 04/26/21 04/26/21 10:05 10:52 12:00 WBC RBC Hgb Hct MCV MCH RDW Plt Count Lymph % (Auto) Seg Neutrophils % Seg Neuts % (Manual) Lymphocytes % (Manual) Nucleated RBC % Seg Neutrophils # Lymphocytes # (Manual) ABG pO2 ABG HCO3 ABG Base Excess ABG Hemoglobin VBG pH Oxyhemoglobin Sodium Potassium Chloride Carbon Dioxide BUN Creatinine Glucose POC Glucose 131 H 129 H 126 H Hemoglobin A1c Lactic Acid Calcium Phosphorus Magnesium Alkaline Phosphatase C-Reactive Protein Total Protein Albumin Vancomycin Trough Crossmatch 04/26/21 04/26/21 04/26/21 13:17 14:06 14:11 WBC RBC Hgb Hct MCV MCH RDW Plt Count Lymph % (Auto) Seg Neutrophils % Seg Neuts % (Manual) Lymphocytes % (Manual) Nucleated RBC % Seg Neutrophils # Lymphocytes # (Manual) ABG pO2 ABG HCO3 ABG Base Excess ABG Hemoglobin VBG pH Oxyhemoglobin Sodium Potassium 5.3 H D Chloride 112.2 H Carbon Dioxide 14 L BUN 22 H Creatinine Glucose 116 H POC Glucose 130 H 132 H Hemoglobin A1c Lactic Acid Calcium Phosphorus Magnesium 2.40 H Alkaline Phosphatase C-Reactive Protein Total Protein Albumin Vancomycin Trough Crossmatch 04/26/21 04/26/21 04/26/21 15:07 15:20 16:05 WBC RBC Hgb Hct MCV MCH RDW Plt Count Lymph % (Auto) Seg Neutrophils % Seg Neuts % (Manual) Lymphocytes % (Manual) Nucleated RBC % Seg Neutrophils # Lymphocytes # (Manual) ABG pO2 ABG HCO3 ABG Base Excess ABG Hemoglobin VBG pH Oxyhemoglobin Sodium Potassium Chloride 112.4 H Carbon Dioxide 13 L BUN 22 H Creatinine Glucose 143 H POC Glucose 130 H 156 H Hemoglobin A1c Lactic Acid Calcium Phosphorus Magnesium Alkaline Phosphatase C-Reactive Protein Total Protein Albumin Vancomycin Trough Crossmatch 04/26/21 04/26/21 04/27/21 17:55 19:27 00:02 WBC RBC Hgb Hct MCV MCH RDW Plt Count Lymph % (Auto) Seg Neutrophils % Seg Neuts % (Manual) Lymphocytes % (Manual) Nucleated RBC % Seg Neutrophils # Lymphocytes # (Manual) ABG pO2 ABG HCO3 ABG Base Excess ABG Hemoglobin VBG pH Oxyhemoglobin Sodium Potassium Chloride Carbon Dioxide BUN Creatinine Glucose POC Glucose 194 H 261 H Hemoglobin A1c Lactic Acid Calcium Phosphorus Magnesium Alkaline Phosphatase C-Reactive Protein Total Protein Albumin Vancomycin Trough 38.2 H Crossmatch 04/27/21 04/27/21 04/27/21 04:03 04:03 05:33 WBC RBC 3.20 L Hgb 8.1 L Hct 25.1 L MCV 78 L MCH 25 L RDW Plt Count Lymph % (Auto) Seg Neutrophils % Seg Neuts % (Manual) Lymphocytes % (Manual) Nucleated RBC % Seg Neutrophils # Lymphocytes # (Manual) ABG pO2 ABG HCO3 ABG Base Excess ABG Hemoglobin VBG pH Oxyhemoglobin Sodium Potassium Chloride 112.4 H Carbon Dioxide 12 L BUN 30 H Creatinine Glucose 330 H POC Glucose 311 H Hemoglobin A1c Lactic Acid Calcium Phosphorus Magnesium Alkaline Phosphatase C-Reactive Protein Total Protein Albumin Vancomycin Trough Crossmatch 04/27/21 04/27/21 04/27/21 09:51 13:15 16:43 WBC RBC Hgb Hct MCV MCH RDW Plt Count Lymph % (Auto) Seg Neutrophils % Seg Neuts % (Manual) Lymphocytes % (Manual) Nucleated RBC % Seg Neutrophils # Lymphocytes # (Manual) ABG pO2 ABG HCO3 ABG Base Excess ABG Hemoglobin VBG pH Oxyhemoglobin Sodium Potassium Chloride Carbon Dioxide BUN Creatinine Glucose POC Glucose 335 H 291 H 218 H Hemoglobin A1c Lactic Acid Calcium Phosphorus Magnesium Alkaline Phosphatase C-Reactive Protein Total Protein Albumin Vancomycin Trough Crossmatch 04/27/21 04/27/21 04/28/21 18:10 22:08 02:15 WBC RBC Hgb Hct MCV MCH RDW Plt Count Lymph % (Auto) Seg Neutrophils % Seg Neuts % (Manual) Lymphocytes % (Manual) Nucleated RBC % Seg Neutrophils # Lymphocytes # (Manual) ABG pO2 ABG HCO3 ABG Base Excess ABG Hemoglobin VBG pH Oxyhemoglobin Sodium Potassium Chloride Carbon Dioxide BUN Creatinine Glucose POC Glucose 177 H 136 H 152 H Hemoglobin A1c Lactic Acid Calcium Phosphorus Magnesium Alkaline Phosphatase C-Reactive Protein Total Protein Albumin Vancomycin Trough Crossmatch 04/28/21 04/28/21 04/28/21 04:41 04:41 06:03 WBC RBC 3.50 L Hgb 8.9 L Hct 27.3 L MCV 78 L MCH 26 L RDW Plt Count Lymph % (Auto) Seg Neutrophils % Seg Neuts % (Manual) Lymphocytes % (Manual) Nucleated RBC % Seg Neutrophils # Lymphocytes # (Manual) ABG pO2 ABG HCO3 ABG Base Excess ABG Hemoglobin VBG pH Oxyhemoglobin Sodium Potassium Chloride 113.5 H Carbon Dioxide 16 L BUN 37 H Creatinine Glucose 167 H POC Glucose 174 H Hemoglobin A1c Lactic Acid Calcium Phosphorus Magnesium Alkaline Phosphatase C-Reactive Protein Total Protein Albumin Vancomycin Trough Crossmatch 04/28/21 04/28/21 04/28/21 08:42 11:34 17:15 WBC RBC Hgb Hct MCV MCH RDW Plt Count Lymph % (Auto) Seg Neutrophils % Seg Neuts % (Manual) Lymphocytes % (Manual) Nucleated RBC % Seg Neutrophils # Lymphocytes # (Manual) ABG pO2 ABG HCO3 ABG Base Excess ABG Hemoglobin VBG pH Oxyhemoglobin Sodium Potassium Chloride Carbon Dioxide BUN Creatinine Glucose POC Glucose 212 H 228 H 236 H Hemoglobin A1c Lactic Acid Calcium Phosphorus Magnesium Alkaline Phosphatase C-Reactive Protein Total Protein Albumin Vancomycin Trough Crossmatch 04/28/21 04/29/21 04/29/21 21:58 01:55 04:00 WBC 11.7 H RBC 3.35 L Hgb 8.5 L Hct 26.4 L MCV MCH 25 L RDW Plt Count Lymph % (Auto) Seg Neutrophils % Seg Neuts % (Manual) Lymphocytes % (Manual) Nucleated RBC % Seg Neutrophils # Lymphocytes # (Manual) ABG pO2 ABG HCO3 ABG Base Excess ABG Hemoglobin VBG pH Oxyhemoglobin Sodium Potassium Chloride Carbon Dioxide BUN Creatinine Glucose POC Glucose 208 H 137 H Hemoglobin A1c Lactic Acid Calcium Phosphorus Magnesium Alkaline Phosphatase C-Reactive Protein Total Protein Albumin Vancomycin Trough Crossmatch 04/29/21 04/29/21 04/29/21 04:00 05:16 11:02 WBC RBC Hgb Hct MCV MCH RDW Plt Count Lymph % (Auto) Seg Neutrophils % Seg Neuts % (Manual) Lymphocytes % (Manual) Nucleated RBC % Seg Neutrophils # Lymphocytes # (Manual) ABG pO2 ABG HCO3 ABG Base Excess ABG Hemoglobin VBG pH Oxyhemoglobin Sodium 146 H Potassium Chloride 112.4 H Carbon Dioxide BUN 41 H Creatinine Glucose 115 H POC Glucose 114 H 144 H Hemoglobin A1c Lactic Acid Calcium Phosphorus Magnesium Alkaline Phosphatase C-Reactive Protein Total Protein Albumin Vancomycin Trough Crossmatch 04/30/21 04/30/21 04/30/21 00:23 04:41 04:41 WBC 14.4 H RBC 3.12 L Hgb 7.8 L Hct 24.7 L MCV MCH 25 L RDW Plt Count 138 L Lymph % (Auto) Seg Neutrophils % Seg Neuts % (Manual) Lymphocytes % (Manual) Nucleated RBC % Seg Neutrophils # Lymphocytes # (Manual) ABG pO2 ABG HCO3 ABG Base Excess ABG Hemoglobin VBG pH Oxyhemoglobin Sodium Potassium Chloride 108.0 H Carbon Dioxide BUN 42 H Creatinine Glucose 215 H POC Glucose 126 H Hemoglobin A1c Lactic Acid Calcium Phosphorus Magnesium Alkaline Phosphatase 171 H C-Reactive Protein Total Protein 6.1 L Albumin 1.4 L Vancomycin Trough Crossmatch 04/30/21 04/30/21 04/30/21 05:22 11:55 17:36 WBC RBC Hgb Hct MCV MCH RDW Plt Count Lymph % (Auto) Seg Neutrophils % Seg Neuts % (Manual) Lymphocytes % (Manual) Nucleated RBC % Seg Neutrophils # Lymphocytes # (Manual) ABG pO2 ABG HCO3 ABG Base Excess ABG Hemoglobin VBG pH Oxyhemoglobin Sodium Potassium Chloride Carbon Dioxide BUN Creatinine Glucose POC Glucose 196 H 224 H 196 H Hemoglobin A1c Lactic Acid Calcium Phosphorus Magnesium Alkaline Phosphatase C-Reactive Protein Total Protein Albumin Vancomycin Trough Crossmatch 05/01/21 05/01/21 05/01/21 04:01 05:37 05:37 WBC 16.9 H RBC 2.97 L Hgb 7.4 L Hct 23.1 L MCV 78 L MCH 25 L RDW Plt Count Lymph % (Auto) Seg Neutrophils % Seg Neuts % (Manual) Lymphocytes % (Manual) Nucleated RBC % Seg Neutrophils # Lymphocytes # (Manual) ABG pO2 ABG HCO3 ABG Base Excess ABG Hemoglobin VBG pH Oxyhemoglobin Sodium Potassium Chloride 108.4 H Carbon Dioxide BUN 41 H Creatinine Glucose 124 H POC Glucose 122 H Hemoglobin A1c Lactic Acid Calcium 8.0 L Phosphorus Magnesium Alkaline Phosphatase C-Reactive Protein Total Protein Albumin Vancomycin Trough Crossmatch 05/01/21 05/01/21 05/01/21 06:27 13:45 16:40 WBC RBC Hgb Hct MCV MCH RDW Plt Count Lymph % (Auto) Seg Neutrophils % Seg Neuts % (Manual) Lymphocytes % (Manual) Nucleated RBC % Seg Neutrophils # Lymphocytes # (Manual) ABG pO2 ABG HCO3 ABG Base Excess ABG Hemoglobin VBG pH Oxyhemoglobin Sodium Potassium Chloride Carbon Dioxide BUN Creatinine Glucose POC Glucose 126 H 231 H 266 H Hemoglobin A1c Lactic Acid Calcium Phosphorus Magnesium Alkaline Phosphatase C-Reactive Protein Total Protein Albumin Vancomycin Trough Crossmatch 05/01/21 05/02/21 05/02/21 23:16 05:43 11:27 WBC RBC Hgb Hct MCV MCH RDW Plt Count Lymph % (Auto) Seg Neutrophils % Seg Neuts % (Manual) Lymphocytes % (Manual) Nucleated RBC % Seg Neutrophils # Lymphocytes # (Manual) ABG pO2 ABG HCO3 ABG Base Excess ABG Hemoglobin VBG pH Oxyhemoglobin Sodium Potassium Chloride Carbon Dioxide BUN Creatinine Glucose POC Glucose 192 H 236 H 284 H Hemoglobin A1c Lactic Acid Calcium Phosphorus Magnesium Alkaline Phosphatase C-Reactive Protein Total Protein Albumin Vancomycin Trough Crossmatch 05/02/21 05/02/21 05/03/21 16:52 23:20 06:16 WBC RBC Hgb Hct MCV MCH RDW Plt Count Lymph % (Auto) Seg Neutrophils % Seg Neuts % (Manual) Lymphocytes % (Manual) Nucleated RBC % Seg Neutrophils # Lymphocytes # (Manual) ABG pO2 ABG HCO3 ABG Base Excess ABG Hemoglobin VBG pH Oxyhemoglobin Sodium Potassium Chloride Carbon Dioxide BUN Creatinine Glucose POC Glucose 170 H 124 H 147 H Hemoglobin A1c Lactic Acid Calcium Phosphorus Magnesium Alkaline Phosphatase C-Reactive Protein Total Protein Albumin Vancomycin Trough Crossmatch 05/03/21 05/03/21 05/03/21 07:05 07:05 11:46 WBC 14.3 H RBC 2.82 L Hgb 6.8 L Hct 22.7 L MCV MCH 24 L RDW Plt Count Lymph % (Auto) 11.8 L Seg Neutrophils % 83.3 H Seg Neuts % (Manual) Lymphocytes % (Manual) Nucleated RBC % Seg Neutrophils # 11.9 H Lymphocytes # (Manual) ABG pO2 ABG HCO3 ABG Base Excess ABG Hemoglobin VBG pH Oxyhemoglobin Sodium Potassium Chloride Carbon Dioxide BUN 39 H Creatinine Glucose 163 H POC Glucose 134 H Hemoglobin A1c Lactic Acid Calcium Phosphorus Magnesium Alkaline Phosphatase C-Reactive Protein Total Protein Albumin Vancomycin Trough Crossmatch 05/03/21 05/03/21 05/03/21 17:11 18:00 19:46 WBC RBC Hgb Hct MCV MCH RDW Plt Count Lymph % (Auto) Seg Neutrophils % Seg Neuts % (Manual) Lymphocytes % (Manual) Nucleated RBC % Seg Neutrophils # Lymphocytes # (Manual) ABG pO2 ABG HCO3 ABG Base Excess ABG Hemoglobin VBG pH Oxyhemoglobin Sodium Potassium Chloride Carbon Dioxide BUN Creatinine Glucose POC Glucose 129 H 128 H Hemoglobin A1c Lactic Acid Calcium Phosphorus Magnesium Alkaline Phosphatase C-Reactive Protein Total Protein Albumin Vancomycin Trough Crossmatch See Detail 05/03/21 05/04/21 05/04/21 22:00 08:06 11:19 WBC RBC Hgb Hct MCV MCH RDW Plt Count Lymph % (Auto) Seg Neutrophils % Seg Neuts % (Manual) Lymphocytes % (Manual) Nucleated RBC % Seg Neutrophils # Lymphocytes # (Manual) ABG pO2 ABG HCO3 ABG Base Excess ABG Hemoglobin VBG pH Oxyhemoglobin Sodium Potassium Chloride Carbon Dioxide BUN Creatinine Glucose POC Glucose 144 H 337 H 383 H Hemoglobin A1c Lactic Acid Calcium Phosphorus Magnesium Alkaline Phosphatase C-Reactive Protein Total Protein Albumin Vancomycin Trough Crossmatch 05/04/21 05/04/21 05/05/21 17:43 23:01 06:05 WBC RBC Hgb Hct MCV MCH RDW Plt Count Lymph % (Auto) Seg Neutrophils % Seg Neuts % (Manual) Lymphocytes % (Manual) Nucleated RBC % Seg Neutrophils # Lymphocytes # (Manual) ABG pO2 ABG HCO3 ABG Base Excess ABG Hemoglobin VBG pH Oxyhemoglobin Sodium Potassium Chloride Carbon Dioxide BUN Creatinine Glucose POC Glucose 316 H 320 H 395 H Hemoglobin A1c Lactic Acid Calcium Phosphorus Magnesium Alkaline Phosphatase C-Reactive Protein Total Protein Albumin Vancomycin Trough Crossmatch 05/05/21 05/05/21 05/05/21 06:15 06:15 11:38 WBC RBC 2.56 L Hgb 6.8 L 6.9 L Hct 21.4 L 22.7 L MCV MCH 27 L RDW Plt Count 442 H Lymph % (Auto) Seg Neutrophils % 76.5 H Seg Neuts % (Manual) Lymphocytes % (Manual) Nucleated RBC % Seg Neutrophils # Lymphocytes # (Manual) ABG pO2 ABG HCO3 ABG Base Excess ABG Hemoglobin VBG pH Oxyhemoglobin Sodium Potassium Chloride Carbon Dioxide BUN 52 H Creatinine Glucose 430 H POC Glucose Hemoglobin A1c Lactic Acid Calcium Phosphorus Magnesium Alkaline Phosphatase C-Reactive Protein Total Protein Albumin Vancomycin Trough Crossmatch 05/05/21 05/05/21 05/06/21 11:47 23:07 06:44 WBC RBC Hgb Hct MCV MCH RDW Plt Count Lymph % (Auto) Seg Neutrophils % Seg Neuts % (Manual) Lymphocytes % (Manual) Nucleated RBC % Seg Neutrophils # Lymphocytes # (Manual) ABG pO2 ABG HCO3 ABG Base Excess ABG Hemoglobin VBG pH Oxyhemoglobin Sodium Potassium Chloride Carbon Dioxide BUN Creatinine Glucose POC Glucose 307 H 141 H 147 H Hemoglobin A1c Lactic Acid Calcium Phosphorus Magnesium Alkaline Phosphatase C-Reactive Protein Total Protein Albumin Vancomycin Trough Crossmatch 05/06/21 05/06/21 05/06/21 07:52 12:27 17:02 WBC RBC Hgb 7.0 L Hct 21.8 L MCV MCH RDW Plt Count Lymph % (Auto) Seg Neutrophils % Seg Neuts % (Manual) Lymphocytes % (Manual) Nucleated RBC % Seg Neutrophils # Lymphocytes # (Manual) ABG pO2 ABG HCO3 ABG Base Excess ABG Hemoglobin VBG pH Oxyhemoglobin Sodium Potassium Chloride Carbon Dioxide BUN Creatinine Glucose POC Glucose 200 H 135 H Hemoglobin A1c Lactic Acid Calcium Phosphorus Magnesium Alkaline Phosphatase C-Reactive Protein Total Protein Albumin Vancomycin Trough Crossmatch 05/06/21 05/07/21 05/07/21 23:03 08:02 10:49 WBC RBC Hgb 7.4 L Hct 23.7 L MCV MCH RDW Plt Count Lymph % (Auto) Seg Neutrophils % Seg Neuts % (Manual) Lymphocytes % (Manual) Nucleated RBC % Seg Neutrophils # Lymphocytes # (Manual) ABG pO2 ABG HCO3 ABG Base Excess ABG Hemoglobin VBG pH Oxyhemoglobin Sodium Potassium Chloride Carbon Dioxide BUN Creatinine Glucose POC Glucose 150 H 255 H Hemoglobin A1c Lactic Acid Calcium Phosphorus Magnesium Alkaline Phosphatase C-Reactive Protein Total Protein Albumin Vancomycin Trough Crossmatch 05/07/21 05/07/21 05/07/21 13:27 18:03 Unknown WBC RBC 2.66 L Hgb 6.9 L Hct 22.3 L MCV MCH 26 L RDW 15.4 H Plt Count 449 H Lymph % (Auto) Seg Neutrophils % 70.7 H Seg Neuts % (Manual) Lymphocytes % (Manual) Nucleated RBC % Seg Neutrophils # Lymphocytes # (Manual) ABG pO2 ABG HCO3 ABG Base Excess ABG Hemoglobin VBG pH Oxyhemoglobin Sodium Potassium Chloride Carbon Dioxide BUN Creatinine Glucose POC Glucose 149 H 127 H Hemoglobin A1c Lactic Acid Calcium Phosphorus Magnesium Alkaline Phosphatase C-Reactive Protein Total Protein Albumin Vancomycin Trough Crossmatch 05/08/21 05/08/21 05/08/21 06:10 07:51 11:55 WBC RBC Hgb Hct MCV MCH RDW Plt Count Lymph % (Auto) Seg Neutrophils % Seg Neuts % (Manual) Lymphocytes % (Manual) Nucleated RBC % Seg Neutrophils # Lymphocytes # (Manual) ABG pO2 ABG HCO3 ABG Base Excess ABG Hemoglobin VBG pH Oxyhemoglobin Sodium Potassium Chloride Carbon Dioxide BUN Creatinine Glucose POC Glucose 190 H 194 H 197 H Hemoglobin A1c Lactic Acid Calcium Phosphorus Magnesium Alkaline Phosphatase C-Reactive Protein Total Protein Albumin Vancomycin Trough Crossmatch 05/08/21 05/08/21 05/08/21 12:25 12:25 18:35 WBC RBC 2.42 L Hgb 6.6 L Hct 20.1 L MCV MCH 27 L RDW 15.3 H Plt Count 452 H Lymph % (Auto) Seg Neutrophils % Seg Neuts % (Manual) Lymphocytes % (Manual) Nucleated RBC % Seg Neutrophils # Lymphocytes # (Manual) ABG pO2 ABG HCO3 ABG Base Excess ABG Hemoglobin VBG pH Oxyhemoglobin Sodium Potassium Chloride Carbon Dioxide BUN 27 H Creatinine Glucose 216 H POC Glucose 195 H Hemoglobin A1c Lactic Acid Calcium 7.9 L Phosphorus Magnesium Alkaline Phosphatase C-Reactive Protein Total Protein Albumin Vancomycin Trough Crossmatch 05/08/21 05/09/21 05/09/21 23:45 01:39 02:57 WBC RBC Hgb 6.6 L Hct 20.7 L MCV MCH RDW Plt Count Lymph % (Auto) Seg Neutrophils % Seg Neuts % (Manual) Lymphocytes % (Manual) Nucleated RBC % Seg Neutrophils # Lymphocytes # (Manual) ABG pO2 ABG HCO3 ABG Base Excess ABG Hemoglobin VBG pH Oxyhemoglobin Sodium Potassium Chloride Carbon Dioxide BUN Creatinine Glucose POC Glucose 286 H Hemoglobin A1c Lactic Acid Calcium Phosphorus Magnesium Alkaline Phosphatase C-Reactive Protein Total Protein Albumin Vancomycin Trough Crossmatch See Detail 05/09/21 05/09/21 05/09/21 04:51 07:34 07:34 WBC RBC 2.46 L Hgb 6.3 L Hct 20.6 L MCV MCH 26 L RDW 15.5 H Plt Count 505 H Lymph % (Auto) Seg Neutrophils % Seg Neuts % (Manual) Lymphocytes % (Manual) Nucleated RBC % Seg Neutrophils # Lymphocytes # (Manual) ABG pO2 ABG HCO3 ABG Base Excess ABG Hemoglobin VBG pH Oxyhemoglobin Sodium Potassium Chloride Carbon Dioxide BUN 24 H Creatinine Glucose 307 H POC Glucose 266 H Hemoglobin A1c Lactic Acid Calcium 7.7 L Phosphorus Magnesium Alkaline Phosphatase C-Reactive Protein Total Protein Albumin Vancomycin Trough Crossmatch 05/09/21 05/09/2121 12:20 16:01 05:34 WBC RBC Hgb Hct MCV MCH RDW Plt Count Lymph % (Auto) Seg Neutrophils % Seg Neuts % (Manual) Lymphocytes % (Manual) Nucleated RBC % Seg Neutrophils # Lymphocytes # (Manual) ABG pO2 ABG HCO3 ABG Base Excess ABG Hemoglobin VBG pH Oxyhemoglobin Sodium Potassium Chloride Carbon Dioxide BUN Creatinine Glucose POC Glucose 249 H 166 H 203 H Hemoglobin A1c Lactic Acid Calcium Phosphorus Magnesium Alkaline Phosphatase C-Reactive Protein Total Protein Albumin Vancomycin Trough Crossmatch 05/10/21 05/10/21 05/10/21 06:30 16:11 23:11 WBC RBC 2.62 L Hgb 6.8 L Hct 21.8 L MCV MCH 26 L RDW 15.6 H Plt Count 489 H Lymph % (Auto) Seg Neutrophils % Seg Neuts % (Manual) Lymphocytes % (Manual) Nucleated RBC % Seg Neutrophils # Lymphocytes # (Manual) ABG pO2 ABG HCO3 ABG Base Excess ABG Hemoglobin VBG pH Oxyhemoglobin Sodium Potassium Chloride Carbon Dioxide BUN Creatinine Glucose POC Glucose 210 H 134 H Hemoglobin A1c Lactic Acid Calcium Phosphorus Magnesium Alkaline Phosphatase C-Reactive Protein Total Protein Albumin Vancomycin Trough Crossmatch 05/11/21 05/11/21 05/11/21 05:29 12:07 18:11 WBC RBC Hgb Hct MCV MCH RDW Plt Count Lymph % (Auto) Seg Neutrophils % Seg Neuts % (Manual) Lymphocytes % (Manual) Nucleated RBC % Seg Neutrophils # Lymphocytes # (Manual) ABG pO2 ABG HCO3 ABG Base Excess ABG Hemoglobin VBG pH Oxyhemoglobin Sodium Potassium Chloride Carbon Dioxide BUN Creatinine Glucose POC Glucose 144 H 226 H 140 H Hemoglobin A1c Lactic Acid Calcium Phosphorus Magnesium Alkaline Phosphatase C-Reactive Protein Total Protein Albumin Vancomycin Trough Crossmatch 05/11/21 05/11/21 05/12/21 23:54 Unknown 10:01 WBC RBC 2.65 L Hgb 7.0 L Hct 22.1 L MCV MCH 26 L RDW 15.9 H Plt Count 518 H Lymph % (Auto) Seg Neutrophils % Seg Neuts % (Manual) Lymphocytes % (Manual) Nucleated RBC % Seg Neutrophils # Lymphocytes # (Manual) ABG pO2 ABG HCO3 ABG Base Excess ABG Hemoglobin VBG pH Oxyhemoglobin Sodium Potassium Chloride Carbon Dioxide BUN Creatinine Glucose POC Glucose 116 H 237 H Hemoglobin A1c Lactic Acid Calcium Phosphorus Magnesium Alkaline Phosphatase C-Reactive Protein Total Protein Albumin Vancomycin Trough Crossmatch 05/12/21 05/12/21 05/13/21 13:01 17:23 05:40 WBC RBC Hgb Hct MCV MCH RDW Plt Count Lymph % (Auto) Seg Neutrophils % Seg Neuts % (Manual) Lymphocytes % (Manual) Nucleated RBC % Seg Neutrophils # Lymphocytes # (Manual) ABG pO2 ABG HCO3 ABG Base Excess ABG Hemoglobin VBG pH Oxyhemoglobin Sodium Potassium Chloride Carbon Dioxide BUN Creatinine Glucose POC Glucose 227 H 158 H 126 H Hemoglobin A1c Lactic Acid Calcium Phosphorus Magnesium Alkaline Phosphatase C-Reactive Protein Total Protein Albumin Vancomycin Trough Crossmatch 05/13/21 05/13/21 05/13/21 09:16 09:16 11:50 WBC RBC 2.49 L Hgb 6.8 L Hct 20.7 L MCV MCH 27 L RDW 15.8 H Plt Count 535 H Lymph % (Auto) Seg Neutrophils % Seg Neuts % (Manual) Lymphocytes % (Manual) Nucleated RBC % Seg Neutrophils # Lymphocytes # (Manual) ABG pO2 ABG HCO3 ABG Base Excess ABG Hemoglobin VBG pH Oxyhemoglobin Sodium 135 L Potassium Chloride 97.0 L Carbon Dioxide BUN 25 H Creatinine Glucose 197 H POC Glucose 231 H Hemoglobin A1c Lactic Acid Calcium 7.8 L Phosphorus Magnesium Alkaline Phosphatase C-Reactive Protein Total Protein Albumin Vancomycin Trough Crossmatch 05/13/21 05/13/21 05/14/21 13:20 16:59 05:00 WBC 11.4 H RBC 2.80 L Hgb 7.7 L Hct 23.3 L MCV MCH 27 L RDW 16.0 H Plt Count 507 H Lymph % (Auto) Seg Neutrophils % Seg Neuts % (Manual) Lymphocytes % (Manual) Nucleated RBC % Seg Neutrophils # Lymphocytes # (Manual) ABG pO2 ABG HCO3 ABG Base Excess ABG Hemoglobin VBG pH Oxyhemoglobin Sodium Potassium Chloride Carbon Dioxide BUN Creatinine Glucose POC Glucose 130 H Hemoglobin A1c Lactic Acid Calcium Phosphorus Magnesium Alkaline Phosphatase C-Reactive Protein Total Protein Albumin Vancomycin Trough Crossmatch See Detail 05/14/21 05/14/21 05/14/21 05:00 05:34 11:59 WBC RBC Hgb Hct MCV MCH RDW Plt Count Lymph % (Auto) Seg Neutrophils % Seg Neuts % (Manual) Lymphocytes % (Manual) Nucleated RBC % Seg Neutrophils # Lymphocytes # (Manual) ABG pO2 ABG HCO3 ABG Base Excess ABG Hemoglobin VBG pH Oxyhemoglobin Sodium 135 L Potassium Chloride Carbon Dioxide BUN 24 H Creatinine Glucose 134 H POC Glucose 128 H 179 H Hemoglobin A1c Lactic Acid Calcium 8.0 L Phosphorus Magnesium Alkaline Phosphatase C-Reactive Protein Total Protein Albumin Vancomycin Trough Crossmatch Chest x-ray: report reviewed, image reviewed Additional Studies: CHEST 1 VIEW 05/13/2021 10:51 AM INDICATION / CLINICAL INFORMATION: picc line position. COMPARISON: None available. FINDINGS: SUPPORT DEVICES: Right PICC line is satisfactory in position. NG tube extends within the stomach HEART / MEDIASTINUM: No significant abnormality. LUNGS / PLEURA: Increased interstitial prominence in bilateral lungs. Elevation right hemidiaphragm with right lower lung atelectasis No pneumothorax. Allied health notes reviewed: nursing
[2021-05-14] MEDS: MORPHINE 2 MG/1 ML INJ IV PRN (13:07)
[2021-05-14] MEDS: SENNOSIDES 8.6 MG TAB PO SCH (21:04)
[2021-05-15] MEDS: FREE WATER PO SCH ×5 (00:02→21:25)
[2021-05-15] MEDS: INSULIN LISPRO 100 UNIT/ML SUB-Q SCH ×4 (00:04→17:40)
[2021-05-15] MEDS: METOCLOPRAMIDE 10 MG/10 ML ORAL LIQD FEEDTUBE SCH ×5 (04:31→21:26)
[2021-05-15 05:13] LABS: Hematocrit 23.4 % (30.3-42.9); Hemoglobin 7.2 gm/dl (10.1-14.3); Mean Corpuscular HGB Conc 31 % (30-34); Mean Corpuscular Volume 84 fl (79-97); Platelet Count 537 K/mm3 (140-440); Red Cell Distribution Width 16.1 % (13.2-15.2)
--- NOTE | 2021-05-15 08:49 | Progress Note ---
Assessment and Plan Assessment and plan: This is a 51-year-old female with DM, noncompliance, obesity, arthritis and right knee surgery admitted for DKA, oropharyngeal dysphagia on tube feeding Speech therapist following, patient has septic arthritis and severe sepsis on long-term antibiotics Rocephin total 6 weeks., Anemia with 6.8 hemoglobin, received 1 unit PRBC yesterday, this morning hemoglobin 6.8, will recheck Hb and transfuse additional PRBC if needed -Anemia; Hb 6.8-6.9 Received 1 unit PRBC yesterday 05/05/2021 This morning Hb 6.9, transfuse additional 1 unit PRBC today Check stool for occult blood, monitor H&H 05/11 h/h--7.0/22.1 --Oropharyngeal dysphagia; Patient is on tube feeding till recently Now able to eat Patient could not be discharged before because of dysphagia and tube feeding Patient to be placed --Septic arthritis; knee; Ortho is planning knee/synovial debridement 04/30/2021;s/p arthrocentesis 05/03/2021 s/p Incision and drainage followed by arthroscopic exam of the right knee Continue antibiotics per ID total 6 weeks -- Sepsis, group B Streptococcus bacteremia, h/o right septic arthritis -Infectious disease consulted, appreciate recommendations -ABX therapy per ID: Ceftriaxone 2 g every 24 hours -Right knee x-ray shows large joint effusion s/p arthrocentesis Positive synovial fluid cultures, ID recommended total 6 weeks of Rocephin --Acute metabolic encephalopathy (improved significantly) Patient is more alert and awake, supportive care -Echocardiogram shows mildly dilated right heart chamber, mild to moderate TR, moderate pulmonary hypertension, RVSP 50-55, LVEF 45-50 --Respiratory: Acute hypoxic respiratory failure Nasal cannula oxygen, intermittent BiPAP Home O2 evaluation --Severe protein calorie malnutrition --Hypoalbuminemia, albumin 1.7 Dietitian/pipe and test supervisor following Continue tube feeding, nutrition supplements Supportive care -- Hypernatremia (resolved) Closely monitor electrolytes --Leukocytosis/trending down Secondary to sepsis, continue antibiotics and supportive care Closely monitor --S/p DKA, h/o uncontrolled DM/present on admission -Hemoglobin A1c 18.3 Blood sugars moderate control -Avoid hypoglycemia Accu-Chek sliding scale coverage tube feeding Glucerna --DVT prophylaxis Subcu Lovenox --Full CODE STATUS Discharge planning issues Patient is able to eat Physical therapy Placement issues are Outpatient antibiotic therapy To discuss with case management Subjective Date of service: 05/12/21 Principal diagnosis: HAGMA; DKA; AMS; Obesity; Osteoarthritis; Hypercalcemia Interval history: Brief history and daily hospital course This is a 51-year-old female with DM, OA, medication noncompliance, obesity who presented to emergency department on 04/23 with complaints of weakness, elevated blood glucose levels, nausea, polydipsia, polyuria and diminished oral intake over the past week with worsening symptoms over the past 2 days. Patient acknowledges noncompliance with oral antihyperglycemic therapy. Patient was s een and evaluated in the emergency department and found to have lab work consistent with diabetic ketoacidosis, metabolic encephalopathy, metabolic acidosis and volume depletion. Patient was admitted to the hospital service to the ICU initiated DKA protocol with CCM consult. 04/24/21- Patient remains on DKA protocol. Still very lethargic this am, following simple commands. Rt. knee wound and swelling noted, and nursing staff also reported thick, white vaginal discharge. C/f sepsis, blood culture ordered, this am UA noted. Will start patient on PO difflucan for possible yeast infection, pending culture data. Anion GAP is still 18 this am, will continue DKA protocol for now. Continue to monitor electrolytes, serial BMP ordered. 04/25/21- Patient appears to be in distress this am, now on 3L NC. Lactic acidosis worsen overnight, X1L LR bolus adminstered. Ordered placed for stat ABGs. Blood culture growing GPC 3/4 bottles, patient remains afebrile with no leukocytosis. IV abx was escalated, ID consulted. Ortho consult is still pending, order placed for XR of the Rt. knee. Given patient worsen condition and high anio, gap, will continue insulin gtt for now. Low K and mg was repleted. C ontinue serial BMP,mg, and phosp 04/26/21- Patient appears more alert and awake this am, talkative, and following commands. Remains on DKA protocol, gap is closedX2, will transition patient to SSI and basal insulin and initiate enteral nutrition. Patient remains afebrile overnight, continue IV Abx per ID. 04/27/21- TASHA overnight. Patient mentation continue to improve. Worsening hyperglycemia, patient is tolerating TF. 70/30 added BID and SSI was adjusted to high dose Q4hrs. D/W CCM patient is stable for transfer to [facility] 04/28/21- Patient continue to improve. Remains drowsy this am, however, easily arousable. Now on 4L NC, still requiring Q4hrs NT suction due to increased secretions and weak cough. Continue to wean O2 supplement as tolerated, F/U CXR in the am. Continue IV Abx per ID. 04/29: Patient is awake and alert with strong cough and able to clear own airway. Ortho consult for right knee aspiration pending. 04/30: No acute events reported overnight, patient will be transferred to the floor. MR of right knee ordered. 05/01; patient had arthrocentesis 05/02; ID recommended total 6 weeks of Rocephin, case management to assist with antibiotics 05/02; patient is febrile, sepsis and positive cultures, currently on Rocephin, ID following 05/03; patient remains on tube feeding, speech therapist has not cleared for oral nutrition, aspiration risk Septic arthritis awaiting synovial debridement knee joint 05/04; blood sugars are uncontrolled Lantus insulin was stopped due to surgical procedure yesterday, Resumed Novolin 70/30, closely monitor and adjust the dose as needed 05/05; patient received 1 unit of PRBC yesterday, a.m. hemoglobin remains 6.8 after transfusion, recheck H&H, transfuse additional PRBC Patient remains on tube feedings, speech therapy following, on long-term antibiotics for her septic knee total 6 weeks 05/06/2021 Patient remains on tube feedings Speech therapy 6 weeks of antibiotics for septic arthritis If patient can swallow and tube feedings are discontinued--- patient can have IV antibiotics as outpatient Not ready for discharge 05/07: Patient seen and examined, remains quit ill, NG tube still in place hemoglobin is still 6.9 despite second unit transfusion done. Hard sure where this is coming from unsure why the patient is not able to eat. Will obtain MRI of the head to further evaluate and also obtain stool for occult blood to further elicit. In the meantime this is a painless delay in discharge and once that is rectified placement is already being pursued by case management. Dressing in the knee is in place. 05/08/20[address] still in place 05/09/2021 NG tube still in place 05/10/2021 Patient more alert and oriented NG tube still in place 05/11/2021 Patient is more alert and oriented NG tube is taken out 05/12/2021 Patient is able to eat Patient is alert and oriented Patient is ready for discharge and outpatient IV antibiotics for 4 to 5 weeks. 05/13/21 Anemia with Hgb 6.8. Transfuse 1 Unit PRBC 05/14/21 Patient transfused 1 Unit, now Hgb 7.7 05/15/21 Patient started on Pureed diet yesterday. Still has tube feed going Hgb 7.2 Will check stool occult blood Consult GI for anemia with hgb 6s. Stool occult blood neg History Interval history: Hemoglobin 7.7 after PRBC transfused Speech recommended start Pureed diet Hospitalist Physical - Physical exam Narrative exam: Gen: Not in acute distress, morbidly obese, HEENT:Normocephalic,atraumatic,has NG tube Neck:supple, No JVD Lungs:clear to auscultation bilaterally, no crackles, no wheeze Heart: S1 and S2 reg, no murmurs, rubs or gallop Abd:soft, non tender, non distended, normal bowel sounds Ext:No edema, no clubbing, no cyanosis, PICC line right Neuro:Awake,alert - Constitutional Vitals: Temp Pulse Resp BP Pulse Ox 98.3 F 108 H 18 154/86 95 05/15/21 04:26 05/15/21 04:26 05/15/21 04:26 05/15/21 04:26 05/15/21 04:26 General appearance: Present: no acute distress HEART Score - HEART Score Troponin: Troponin T < 0.010 ng/mL (0.00-0.029) 04/23/21 10:33 Results - Labs CBC & Chem 7: 05/15/21 04:58 05/14/21 05:00 Labs: Laboratory Last Values WBC 12.1 K/mm3 (4.5-11.0) H 05/15/21 04:58 RBC 2.80 M/mm3 (3.65-5.03) L 05/15/21 04:58 Hgb 7.2 gm/dl (10.1-14.3) L 05/15/21 04:58 Hct 23.4 % (30.3-42.9) L 05/15/21 04:58 MCV 84 fl (79-97) 05/15/21 04:58 MCH 26 pg (28-32) L 05/15/21 04:58 MCHC 31 % (30-34) 05/15/21 04:58 RDW 16.1 % (13.2-15.2) H 05/15/21 04:58 Plt Count 537 K/mm3 (140-440) H 05/15/21 04:58 Lymph % (Auto) 22.8 % (13.4-35.0) 05/07/21 Unknown [place] % (Auto) 4.4 % (0.0-7.3) 05/07/21 Unknown Eos % (Auto) 1.2 % (0.0-4.3) 05/07/21 Unknown Baso % (Auto) 0.9 % (0.0-1.8) 05/07/21 Unknown Lymph # (Auto) 1.7 K/mm3 (1.2-5.4) 05/07/21 Unknown [place] # (Auto) 0.3 K/mm3 (0.0-0.8) 05/07/21 Unknown Eos # (Auto) 0.1 K/mm3 (0.0-0.4) 05/07/21 Unknown Baso # (Auto) 0.1 K/mm3 (0.0-0.1) 05/07/21 Unknown Add Manual Diff Complete 04/25/21 08:10 Total Counted 100 04/25/21 08:10 Seg Neutrophils % 70.7 % (40.0-70.0) H 05/07/21 Unknown Seg Neuts % (Manual) 33.0 % (40.0-70.0) L 04/25/21 08:10 Band Neutrophils % 23.0 % 04/25/21 08:10 Lymphocytes % (Manual) 19.0 % (13.4-35.0) 04/25/21 08:10 Reactive Lymphs % (Man) 1.0 % 04/25/21 08:10 Monocytes % (Manual) 1.0 % (0.0-7.3) 04/25/21 08:10 Eosinophils % (Manual) 1.0 % (0.0-4.3) 04/25/21 08:10 Metamyelocytes % 3.0 % 04/23/21 10:33 Myelocytes % 22.0 % 04/25/21 08:10 Nucleated RBC % Not Reportable 04/25/21 08:10 Seg Neutrophils # 5.4 K/mm3 (1.8-7.7) 05/07/21 Unknown Seg Neutrophils # Man 1.9 K/mm3 (1.8-7.7) 04/25/21 08:10 Band Neutrophils # 1.3 K/mm3 04/25/21 08:10 Lymphocytes # (Manual) 1.1 K/mm3 (1.2-5.4) L 04/25/21 08:10 Abs React Lymphs (Man) 0.1 K/mm3 04/25/21 08:10 Monocytes # (Manual) 0.1 K/mm3 (0.0-0.8) 04/25/21 08:10 Eosinophils # (Manual) 0.1 K/mm3 (0.0-0.4) 04/25/21 08:10 Basophils # (Manual) 0.0 K/mm3 (0.0-0.1) 04/25/21 08:10 Metamyelocytes # 0.0 K/mm3 04/25/21 08:10 Myelocytes # 1.3 K/mm3 04/25/21 08:10 Promyelocytes # 0.0 K/mm3 04/25/21 08:10 Blast Cells # 0.0 K/mm3 04/25/21 08:10 WBC Morphology Not Reportable 04/25/21 08:10 Hypersegmented Neuts Not Reportable 04/25/21 08:10 Hyposegmented Neuts Not Reportable 04/25/21 08:10 Hypogranular Neuts Not Reportable 04/25/21 08:10 Smudge Cells Not Reportable 04/25/21 08:10 Toxic Granulation Not Reportable 04/25/21 08:10 Toxic Vacuolation Not Reportable 04/25/21 08:10 Dohle Bodies Not Reportable 04/25/21 08:10 Pelger-Huet Anomaly Not Reportable 04/25/21 08:10 Thierry Rods Not Reportable 04/25/21 08:10 Platelet Estimate Consistent w auto 04/25/21 08:10 Clumped Platelets Not Reportable 04/25/21 08:10 Plt Clumps, EDTA Not Reportable 04/25/21 08:10 Large Platelets Not Reportable 04/25/21 08:10 Giant Platelets Not Reportable 04/25/21 08:10 Platelet Satelliting Not Reportable 04/25/21 08:10 Plt Morphology Comment Not Reportable 04/25/21 08:10 RBC Morphology Not Reportable 04/25/21 08:10 Dimorphic RBCs Not Reportable 04/25/21 08:10 Polychromasia Not Reportable 04/25/21 08:10 Hypochromasia 1+ 04/25/21 08:10 Poikilocytosis Not Reportable 04/25/21 08:10 Anisocytosis Not Reportable 04/25/21 08:10 Microcytosis Not Reportable 04/25/21 08:10 Macrocytosis Not Reportable 04/25/21 08:10 Spherocytes Not Reportable 04/25/21 08:10 Pappenheimer Bodies Not Reportable 04/25/21 08:10 Sickle Cells Not Reportable 04/25/21 08:10 Target Cells Not Reportable 04/25/21 08:10 Tear Drop Cells Not Reportable 04/25/21 08:10 Ovalocytes Not Reportable 04/25/21 08:10 Helmet Cells Not Reportable 04/25/21 08:10 [place] Bodies Not Reportable 04/25/21 08:10 [place] Rings Not Reportable 04/25/21 08:10 Kamari Cells Not Reportable 04/25/21 08:10 Bite Cells Not Reportable 04/25/21 08:10 Crenated Cell Not Reportable 04/25/21 08:10 Elliptocytes Not Reportable 04/25/21 08:10 Acanthocytes (Spur) Not Reportable 04/25/21 08:10 Rouleaux Not Reportable 04/25/21 08:10 Hemoglobin C Crystals Not Reportable 04/25/21 08:10 Schistocytes Not Reportable 04/25/21 08:10 Malaria parasites Not Reportable 04/25/21 08:10 Juan Bodies Not Reportable 04/25/21 08:10 Hem Pathologist Commnt No 04/25/21 08:10 ABG pH 7.426 pH Units (7.350-7.450) 04/25/21 11:20 ABG pCO2 25.3 mm Hg 04/25/21 11:20 ABG pO2 73.2 mm Hg (80.0-90.0) L 04/25/21 11:20 ABG HCO3 16.2 mmol/L (20.0-26.0) L 04/25/21 11:20 ABG O2 Saturation 96.9 % (95.0-99.0) 04/25/21 11:20 ABG O2 Content 11.6 (0.0-44) 04/25/21 11:20 ABG Base Excess -7.1 mmol/L (-2.0-3.0) L 04/25/21 11:20 ABG Hemoglobin 8.7 gm/dl (12.0-16.0) L 04/25/21 11:20 ABG Carboxyhemoglobin 1.6 % (0.0-5.0) 04/25/21 11:20 ABG Methemoglobin 0.6 % (0.0-1.5) 04/25/21 11:20 VBG pH 7.180 (7.320-7.420) L* 04/23/21 10:33 Oxyhemoglobin 94.8 % (95.0-99.0) L 04/25/21 11:20 FiO2 28 % 04/25/21 11:20 Sodium 135 mmol/L (137-145) L 05/14/21 05:00 Potassium 4.1 mmol/L (3.6-5.0) 05/14/21 05:00 Chloride 98.4 mmol/L (98-107) 05/14/21 05:00 Carbon Dioxide 25 mmol/L (22-30) 05/14/21 05:00 Anion Gap 16 mmol/L 05/14/21 05:00 BUN 24 mg/dL (7-17) H 05/14/21 05:00 Creatinine 0.9 mg/dL (0.6-1.2) 05/14/21 05:00 Estimated GFR > 60 ml/min 05/14/21 05:00 BUN/Creatinine Ratio 27 % 05/14/21 05:00 Glucose 134 mg/dL (65-100) H 05/14/21 05:00 POC Glucose 222 mg/dL (70-105) H 05/15/21 05:53 Hemoglobin A1c 18.3 % (4-6) H 04/24/21 04:16 Lactic Acid 1.70 mmol/L (0.7-2.0) 04/26/21 05:02 Uric Acid 7.5 mg/dL (3.5-7.6) 04/24/21 12:14 Calcium 8.0 mg/dL (8.4-10.2) L 05/14/21 05:00 Phosphorus 4.50 mg/dL (2.5-4.5) 04/30/21 04:41 Magnesium 2.10 mg/dL (1.7-2.3) 05/03/21 07:05 Total Bilirubin 0.50 mg/dL (0.1-1.2) 04/30/21 04:41 AST 12 units/L (5-40) 04/30/21 04:41 ALT 7 units/L (7-56) 04/30/21 04:41 Alkaline Phosphatase 171 units/L (35-129) H 04/30/21 04:41 Ammonia 37.0 umol/L (25-60) 04/23/21 10:33 Total Creatine Kinase 83 units/L (30-135) 04/23/21 10:33 Troponin T < 0.010 ng/mL (0.00-0.029) 04/23/21 10:33 C-Reactive Protein 24.30 mg/dL (0.00-1.30) H 04/24/21 18:24 Total Protein 6.1 g/dL (6.3-8.2) L 04/30/21 04:41 Albumin 1.4 g/dL (3.9-5) L 04/30/21 04:41 Albumin/Globulin Ratio 0.3 % 04/30/21 04:41 Procalcitonin 21.10 ng/mL (<0.15) 04/24/21 12:14 TSH 1.400 mlU/mL (0.270-4.200) 04/23/21 10:33 Urine Color Katie (Yellow) 04/27/21 16:16 Urine Turbidity Cloudy (Clear) 04/27/21 16:16 Urine pH 5.0 (5.0-7.0) 04/27/21 16:16 Ur Specific [place] 1.014 (1.003-1.030) 04/27/21 16:16 Urine Protein <15 mg/dl mg/dL (Negative) 04/27/21 16:16 Urine Glucose (UA) >=500 mg/dL (Negative) 04/27/21 16:16 Urine Ketones Neg mg/dL (Negative) 04/27/21 16:16 Urine Blood Neg (Negative) 04/27/21 16:16 Urine Nitrite Neg (Negative) 04/27/21 16:16 Urine Bilirubin Neg (Negative) 04/27/21 16:16 Urine Urobilinogen 2.0 mg/dL (<2.0) 04/27/21 16:16 Ur Leukocyte Esterase Neg (Negative) 04/27/21 16:16 Urine WBC (Auto) 1.0 /HPF (0.0-6.0) 04/27/21 16:16 Urine RBC (Auto) 1.0 /HPF (0.0-6.0) 04/27/21 16:16 U Epithel Cells (Auto) < 1.0 /HPF (0-13.0) 04/24/21 08:40 Urine Bacteria (Auto) 1+ /HPF (Negative) 04/27/21 16:16 Amorphous Crystals Few 04/27/21 16:16 Urine Yeast (Budding) 3+ /HPF 04/27/21 16:16 Vancomycin Trough 38.2 ug/mL (5.0-20.0) H 04/26/21 19:27 Coronavirus (PCR) Negative (Negative) 04/25/21 Unknown Blood Type A POSITIVE 05/13/21 13:20 Antibody Screen Negative 05/13/21 13:20 Crossmatch See Detail 05/13/21 13:20 Sanchez/IV: Voiding Method Indwelling Catheter Active Medications - Current Medications Current Medications: Generic Name Dose Route Start Last Admin Trade Name Freq PRN Reason Stop Dose Admin Acetaminophen 650 mg 04/23/21 11:54 05/13/21 17:29 Acetaminophen 325 Mg Tab PO 650 mg Q6H PRN Administration Pain MILD(1-3)/Fever >100.5/SMITH Albuterol 2.5 mg 05/02/21 12:56 05/07/21 04:22 Albuterol 2.5 Mg/3 Ml Nebu IH 2.5 mg Q4HRT PRN Administration Shortness Of Breath Lipase/Protease/Amylase 1 each 05/06/21 16:05 Lipase 10,500/Protease 25,000/Amylase 43,750 (Units) Cap FEEDTUBE PRN PRN For Clogged Feeding Tube Dextrose 50 ml 04/26/21 14:00 Dextrose 50% In Water (25gm) 50 Ml Syringe IV Q30MIN PRN Hypoglycemia Protocol Famotidine 20 mg 04/29/21 10:00 05/14/21 10:29 Famotidine 20 Mg Tab FEEDTUBE 20 mg DAILY AMIRA Administration Hydromorphone HCl 0.5 mg 04/23/21 11:54 05/12/21 01:19 Hydromorphone 1 Mg/1 Ml Inj IV 0.5 mg Q23H PRN Administration Pain , Severe (7-10) Cefazolin Sodium 2 gm/ Sodium 100 mls @ 200 mls/hr 05/02/21 14:00 05/15/21 01:26 Chloride IV 06/14/21 20:29 200 mls/hr Q6H AMIRA Administration Protocol Insulin Human Isoph/Insulin Regular 48 unit 05/02/21 09:30 05/14/21 17:00 Insulin Nph/Regular 70/30 Inj SUB-Q Not Given BIDDIAB [facility] Insulin Human Lispro 0 unit 04/29/21 12:00 05/15/21 05:04 Insulin Lispro 100 Unit/Ml SUB-Q 4 unit Q6HR AMIRA Administration Protocol Metoclopramide HCl 5 mg 05/08/21 08:00 05/15/21 04:31 Metoclopramide 10 Mg/10 Ml Oral Liqd FEEDTUBE 5 mg ACHS AMIRA Administration Morphine Sulfate 2 mg 05/03/21 18:59 05/14/21 13:07 Morphine 2 Mg/1 Ml Inj IV 2 mg Q4H PRN Administration Pain, Moderate (4-6) Morphine Sulfate 4 mg 05/03/21 18:59 Morphine 4 Mg/1 Ml Inj IV Q4H PRN Pain , Severe (7-10) Oxycodone/Acetaminophen 1 tab 04/23/21 11:54 05/10/21 17:23 Oxycodone /Acetaminophen 5-325mg Tab PO 1 tab Q16H PRN Administration Pain, Moderate (4-6) Senna 17.2 mg 04/25/21 22:00 05/14/21 21:04 Sennosides 8.6 Mg Tab PO 17.2 mg QHS AMIRA Administration Simple Syrup 15 ml 05/06/21 16:05 Simple Syrup 15 Ml FEEDTUBE PRN PRN Hypoglycemia Simple Syrup 30 ml 05/06/21 16:05 Simple Syrup 15 Ml FEEDTUBE PRN PRN Hypoglycemia Sodium Bicarbonate 325 mg 05/06/21 16:05 Sodium Bicarbonate 325 Mg Tab FEEDTUBE PRN PRN For Clogged Feeding Tube Sodium Chloride 10 ml 04/23/21 22:00 05/14/21 21:04 Sodium Chloride 0.9% 10 Ml Flush Syringe IV Not Given BID AMIRA Sodium Chloride 10 ml 04/23/21 11:54 04/24/21 11:15 Sodium Chloride 0.9% 10 Ml Flush Syringe IV 10 ml PRN PRN Administration LINE FLUSH Nutrition/Malnutrition Assess - Dietary Evaluation Nutrition/Malnutrition Findings: Nutrition Notes Start: 04/26/21 09:53 Freq: Status: Active Protocol: Document 05/13/21 12:20 JAIMIE (Rec: 05/13/21 12:38 JAIMIE [id number]) Nutrition Notes Current Diet TF-Vital AF 1.2 Daniel @ 65 ml/hr (since D 05/06). Height 5 ft 8 in Weight 158.6 kg [place] Body Weight (kg) 63.63 BMI 53.1 Weight change and time frame No body weight change reported . Weight Status Morbidly Obese Subjective/Other Information RD consult for routine F/U on TF tolerance. No body weight change reported . TF well tolerated, continue as is. Percent of energy/protein needs met: Prescribed TF-Vital AF 1.2 Daniel @ 65 ml/hr provides for energy/protein needs (1,804 Kcal/77 g) 107% Kcal; 84% AA, during LOS. Nutrition Intervention Nutrition Support: Continue Vital AF 1.2 @ 65 ml/ hr with 100 ml water flush Q 4h. Kcal 1,860 Protein (gm) 116 Carbohydrates (gm) 171 Fat (gm) 84 Fluid (mL) 1,257 Fiber (gm) 8 % RDI: 107% Kcal; 84% AA. Goal #1 Provide at least 75% of energy /protein needs through Enteral Feeding during LOS. Goal #2 Maintain body weight within +/ -3% of admission body weight during LOS. Goal #3 Reach and maintain acceptable chemistry lab values during LOS. Follow-Up By: 05/20/21 Additional Comments Continue monitoring TF tolerance, Hydration, and BM.
--- NOTE | 2021-05-15 08:54 | Gastroenterology Consultation ---
History of Present Illness - Reason for Consult Consult date: 05/15/21 Anemia requiring recurrent blood transfusions Requesting physician: NOY HERRERA - History of Present Illness This is a pleasant 51-year-old female for whom GI is consulted for recurrent anemia requiring blood transfusions Patient with history of poorly controlled diabetes, she reports no overt blood loss. She reports some nausea since being admitted to the hospital with mild diffuse abdominal pain since being in the hospital stable constant duration 1 to 2 weeks Denies overt blood loss. She reports did vomit this morning with her tube feeds there is no blood in it Reports normal brown stool denies melena denies blood in the stool Reports never had endoscopic evaluation in the past Obtained/updated/reviewed patient's current medications Past History Past Medical History: arthritis, diabetes Past Surgical History: , Other (Right knee surgery) Social history: single. denies: smoking, alcohol abuse, prescription drug abuse Family history: diabetes, hypertension Medications and Allergies Allergies Allergy/AdvReac Type Severity Reaction Status Date / Time No Known Allergies Allergy Verified 08/21/18 13:05 Home Medications Medication Instructions Recorded Confirmed Last Taken Type Insulin Regular, Human [Humulin R] See Protocol IJ ACHS 30 Days vial 08/30/18 05/03/21 04/24/21 Rx Insulin Lispro [Humalog] 0 unit SUB-Q Q6HR #1 vial 01/04/20 05/03/21 04/29/21 Rx ALBUTEROL NEB's [Proventil 0.083% 0 mg IH Q4H PRN 04/29/21 05/03/21 04/29/21 History NEBS] Acetaminophen [Acetaminophen TAB] 0 mg PO Q4H PRN 04/29/21 04/29/21 Unknown History Amlodipine Besylate [Norvasc] 0 mg PO DAILY 04/29/21 04/29/21 Unknown History Apixaban [Eliquis] 0 mg PO QDAY 04/29/21 04/29/[address] [Voltarechely Dr] 0 mg PO BID 04/29/21 04/29/21 Unknown History Insulin NPH/Regular [NovoLIN 70/30] 0 unit SUB-Q BIDDIAB 04/29/21 04/29/21 Unknown History Sennosides Tab [Senokot] 0 mg PO Q12HR 04/29/21 04/29/21 Unknown History hydrALAZINE [Apresoline TAB] 0 mg PO Q8HR 04/29/21 04/29/21 Unknown History oxyCODONE /ACETAMINOPHEN [Percocet 0 tab PO Q6H PRN 04/29/21 04/29/21 Unknown History 5/325 mg] Active Meds: Active Medications Acetaminophen (Acetaminophen 325 Mg Tab) 650 mg PO Q6H PRN PRN Reason: Pain MILD(1-3)/Fever >100.5/SMITH Last Admin: 05/13/21 17:29 Dose: 650 mg Documented by: Albuterol (Albuterol 2.5 Mg/3 Ml Nebu) 2.5 mg IH Q4HRT PRN PRN Reason: Shortness Of Breath Last Admin: 05/07/21 04:22 Dose: 2.5 mg Documented by: Lipase/Protease/Amylase (Lipase 10,500/Protease 25,000/Amylase 43,750 (Units) Dr Rodriguez) 1 each FEEDTUBE PRN PRN PRN Reason: For Clogged Feeding Tube Dextrose (Dextrose 50% In Water (25gm) 50 Ml Syringe) 50 ml IV Q30MIN PRN; Protocol PRN Reason: Hypoglycemia Famotidine (Famotidine 20 Mg Tab) 20 mg FEEDTUBE DAILY AMIRA Last Admin: 05/14/21 10:29 Dose: 20 mg Documented by: Hydromorphone HCl (Hydromorphone 1 Mg/1 Ml Inj) 0.5 mg IV Q23H PRN PRN Reason: Pain , Severe (7-10) Last Admin: 05/12/21 01:19 Dose: 0.5 mg Documented by: Cefazolin Sodium 2 gm/ Sodium (Chloride) 100 mls @ 200 mls/hr IV Q6H AMIRA; Protocol Stop: 06/14/21 20:29 Last Admin: 05/15/21 01:26 Dose: 200 mls/hr Documented by: Insulin Human Isoph/Insulin Regular (Insulin Nph/Regular 70/30 Inj) 48 unit SUB-Q BIDDIAB AMIRA Last Admin: 05/14/21 17:00 Dose: Not Given Documented by: Insulin Human Lispro (Insulin Lispro 100 Unit/Ml) 0 unit SUB-Q Q6HR AMIRA; Protocol Last Admin: 05/15/21 05:04 Dose: 4 unit Documented by: Metoclopramide HCl (Metoclopramide 10 Mg/10 Ml Oral Liqd) 5 mg FEEDTUBE ACHS [facility] Last Admin: 05/15/21 04:31 Dose: 5 mg Documented by: Morphine Sulfate (Morphine 2 Mg/1 Ml Inj) 2 mg IV Q4H PRN PRN Reason: Pain, Moderate (4-6) Last Admin: 05/14/21 13:07 Dose: 2 mg Documented by: Morphine Sulfate (Morphine 4 Mg/1 Ml Inj) 4 mg IV Q4H PRN PRN Reason: Pain , Severe (7-10) Oxycodone/Acetaminophen (Oxycodone /Acetaminophen 5-325mg Tab) 1 tab PO Q16H PRN PRN Reason: Pain, Moderate (4-6) Last Admin: 05/10/21 17:23 Dose: 1 tab Documented by: Senna (Sennosides 8.6 Mg Tab) 17.2 mg PO QHS [facility] Last Admin: 05/14/21 21:04 Dose: 17.2 mg Documented by: Simple Syrup (Simple Syrup 15 Ml) 15 ml FEEDTUBE PRN PRN PRN Reason: Hypoglycemia Simple Syrup (Simple Syrup 15 Ml) 30 ml FEEDTUBE PRN PRN PRN Reason: Hypoglycemia Sodium Bicarbonate (Sodium Bicarbonate 325 Mg Tab) 325 mg FEEDTUBE PRN PRN PRN Reason: For Clogged Feeding Tube Sodium Chloride (Sodium Chloride 0.9% 10 Ml Flush Syringe) 10 ml IV BID [facility] Last Admin: 05/14/21 21:04 Dose: Not Given Documented by: Sodium Chloride (Sodium Chloride 0.9% 10 Ml Flush Syringe) 10 ml IV PRN PRN PRN Reason: LINE FLUSH Last Admin: 04/24/21 11:15 Dose: 10 ml Documented by: Review of Systems - Review of Systems All systems: negative (10 Systems reviewed and negative except as mentioned above in the history of present illness) Exam - Constitutional Vital Signs: Temp Pulse Resp BP Pulse Ox 98.3 F 108 H 18 154/86 95 05/15/21 04:26 05/15/21 04:26 05/15/21 04:26 05/15/21 04:26 05/15/21 04:26 General appearance: no acute distress - EENT Eyes: EOM intact ENT: hearing intact - Neck Neck: supple - Respiratory Respiratory effort: normal - Cardiovascular Rhythm: regular - Gastrointestinal General gastrointestinal: Present: soft, normal bowel sounds - Integumentary Integumentary: Present: dry - Musculoskeletal Musculoskeletal: deferred - Neurologic Neurological: alert and oriented x3 - Psychiatric Psychiatric: appropriate mood/affect - Labs CBC & Chem 7: 05/15/21 04:58 05/14/21 05:00 Lab Results: Laboratory Results - last 24 hr 05/14/21 05/14/21 05/14/21 11:59 16:38 23:48 WBC RBC Hgb Hct MCV MCH MCHC RDW Plt Count POC Glucose 179 H 95 171 H 05/15/21 05/15/21 05/15/21 04:51 04:58 05:53 WBC 12.1 H RBC 2.80 L Hgb 7.2 L Hct 23.4 L MCV 84 MCH 26 L MCHC 31 RDW 16.1 H Plt Count 537 H POC Glucose 220 H 222 H Assessment and Plan Given severe anemia requiring multiple blood transfusions and patient with abdominal pain and never had a GI evaluation prudent to pursue endoscopic evaluation prior to discharge from the hospital therefore we will plan on EGD and colonoscopy tomorrow Patient can be prepped using the NG tube which is already in place for ease of administration differential diagnosis includes peptic ulcer disease AVMs polyps malignancy etc. - Patient Problems (1) Severe anemia Current Visit: Yes Status: Acute (2) Upper abdominal pain Current Visit: Yes Status: Acute
[2021-05-15] MEDS: INSULIN NPH/REGULAR 70/30 INJ SUB-Q SCH ×2 (09:09→16:08)
[2021-05-15] MEDS: FAMOTIDINE 20 MG TAB FEEDTUBE SCH (09:18)
--- NOTE | 2021-05-15 12:30 | Progress Note ---
Assessment and Plan Cultures: 04/24/2021 Blood culture: GBS Blood culture 04/26/2021: No growth 04/30/2021 R knee synovial fluid culture: Group B Streptococcus 05/03/2021 right knee OR culture: No growth A/P: 51 yo F with DM2, HTN, morbid obesity presented with sepsis #Acute sepsis: secondary to group B streptococcus bacteremia, source is R knee. #Group B streptococcus bacteremia secondary to R knee septic arthritis: Reports a history of previous right knee septic arthritis and has been treated with antibiotics at least twice in the past. X-ray shows large joint effusion. TTE without any evidence of valvular vegetations/endocarditis. Arthrocentesis culture also positive. Status post I&D followed by arthroscopic examination of right knee on 05/03/2021, as per operative note, "entered the joint proper with return of copious amounts of purulent material" and "significant cartilage degeneration from repeated infections". Will need a longer ~6 weeks course of IV abx after surgery due to her history of recurrence / chronicity and possibility of osteomyelitis, extensive cartilage degeneration. #DM2: tight glycemic control for best outcomes. Recs: -Continues to have low-grade fevers, elevated WBC. Follow-up ortho recs regarding CT R leg and knee there seems to be a collection in the right knee anterior to the femur with some air bubbles, may represent residual infection v/s related to recent surgery. Given ongoing intermittent fevers, suggestive of residual infection, she might need additional surgery, defer to orthopedics -continue high dose IV Ancef while inpatient, upon discharge, continue IV Ceftriaxone ending 06/14/2021, CM orders have already been placed. PICC in place Candelario Chawla MD [facility] O: [phone] F: [phone] Subjective Date of service: 05/15/21 Principal diagnosis: HAGMA; DKA; AMS; Obesity; Osteoarthritis; Hypercalcemia Interval history: Afebrile, white count 12.1. Objective - Exam Narrative Exam: Narrative Exam: Physical Exam: Constitutional: Alert, cooperative. Head, Ears, Nose: Normocephalic, atraumatic. External ears, nose normal Eyes: Conjunctivae/corneas clear. No icterus. No ptosis. Neck: Supple, no meningeal signs Cardiovascular: S1, S2 + Respiratory: Good air entry, clear to auscultation bilaterally GI: Soft, non-tender; bowel sounds normal. No peritoneal signs Musculoskeletal: Right knee with dressing +, swelling and tenderness + Skin: No rash or abscess Hem/Lymphatic: No palpable cervical or supraclavicular nodes. No lymphangitis Psych: Mood ok. Affect normal Neurological: Awake, alert, oriented. No gross abnormality - Constitutional Vitals: Vital Signs Temp Pulse Resp BP Pulse Ox 98.3 F 108 H 18 154/86 95 05/15/21 04:26 05/15/21 04:26 05/15/21 04:26 05/15/21 04:26 05/15/21 04:26 Temperature -Last 24 Hours Temperature 98.3 F Temperature 98.3 F Temperature 98.6 F - Labs CBC & Chem 7: 05/15/21 04:58 05/14/21 05:00 Labs: Abnormal lab results 05/14/21 05/15/21 05/15/21 Range/Units 23:48 04:51 04:58 WBC 12.1 H (4.5-11.0) K/mm3 RBC 2.80 L (3.65-5.03) M/mm3 Hgb 7.2 L (10.1-14.3) gm/dl Hct 23.4 L (30.3-42.9) % MCH 26 L (28-32) pg RDW 16.1 H (13.2-15.2) % Plt Count 537 H (140-440) K/mm3 POC Glucose 171 H 220 H (70-105) mg/dL 05/15/21 05/15/21 05/15/21 Range/Units 05:53 09:02 10:48 WBC (4.5-11.0) K/mm3 RBC (3.65-5.03) M/mm3 Hgb (10.1-14.3) gm/dl Hct (30.3-42.9) % MCH (28-32) pg RDW (13.2-15.2) % Plt Count (140-440) K/mm3 POC Glucose 222 H 196 H 179 H (70-105) mg/dL
[2021-05-15 13:30] LABS: INR 1.14 (0.87-1.13)
[2021-05-15] MEDS: MORPHINE 2 MG/1 ML INJ IV PRN (13:43)
[2021-05-15] MEDS ORDERED: POLYETHYLENE GLYCOL/ELECT SOLN 4000 ML NGTUBE NR (18:00)
--- NOTE | 2021-05-15 19:30 | Progress Note ---
Assessment and Plan 51 YO Female with DM, OA, Medication Noncompliance, Obesity presents to ED for evaluation. Patient reports "I feel sick". Patient states she had experienced weakness, elevated blood glucose levels, nausea, polydipsia, polyuria, as well a s diminished oral intake over the past 1 week with worsening symptoms over the last 2 days. Patient acknowledges noncompliance with oral antihyperglycemic therapy. Patient states that her weight has gotten progressively worse and and that she is "too weak to walk". EMS was notified and upon arrival the patient was found to be in distress and subsequent transported to [facility] for further care and evaluation of the aforementioned symptoms. The patient was seen and evaluated in the emergency department. All lab and imaging studies reviewed. The patient was found to have diabetic ketoacidosis, metabolic encephalopathy, as well as metabolic acidosis, and volume depletion. Patient mated to ICU and initiated on DKA protocol. Critical care team consulted in ED. Patient has fever, chills, chest pain, palpitation, productive cough, skin rash, recent contact, known exposure to COVID-1 Patients sullivan virus PCR is negative. Patient is sleeping. Patient is on 2 litres O2. O2 saturation 98%. No acute respiratory distress. Patient is running low grade temp at times. Mild leukocytosis. Blood pressure 139/64, Pulse 99, respirations 18. Today's Hgb is 7.2. Patient received a blood transfusion. Chest xray done 04/29/21 reported Low lung volumes with bibasilar opacities/atelectasis persists, unchanged. No pneumothorax. Chest xray done 05/08/21 reported table, mild increased densities and atelectasis in the lower lungs. No pneumothorax. Chest xray done 05/13/21 reported Increased interstitial prominence in bilateral lungs. Elevation right hemidiaphragm with right lower lung atelectasis No pneumothorax. Patient had right knee surgery. Patient is on Cefazolin, Albuterol aerosol treatments and Prevacid - Patient Problems (1) High anion gap metabolic acidosis Current Visit: Yes Status: Acute Plan to address problem: Improving. Recent anion gap is 12 (2) DKA (diabetic ketoacidosis) Current Visit: Yes Status: Acute Qualifiers: Diabetes mellitus type: type 1 Plan to address problem: Improving. Management as primary care. (3) Metabolic encephalopathy Current Visit: Yes Status: Acute Plan to address problem: Management as primary care and neurology. (4) Abscess of right foot Current Visit: No Status: Acute Plan to address problem: Management as primary care and ID Patient on Cefazolin (5) Diabetic ulcer of right foot associated with diabetes mellitus due to underlying condition, with fat layer exposed Current Visit: No Status: Acute Plan to address problem: Management as per primary care. (6) Hypertension Current Visit: No Status: Chronic Plan to address problem: Management as primary care. Subjective Date of service: 05/15/21 Principal diagnosis: HAGMA; DKA; AMS; Obesity; Osteoarthritis; Hypercalcemia Interval history: 51 YO Female with DM, OA, Medication Noncompliance, Obesity presents to ED for evaluation. Patient reports "I feel sick". Patient states she had experienced weakness, elevated blood glucose levels, nausea, polydipsia, polyuria, as well as diminished oral intake over the past 1 week with worsening symptoms over the last 2 days. Patient acknowledges noncompliance with oral antihyperglycemic therapy. Patient states that her weight has gotten progressively worse and and that she is "too weak to walk". EMS was notified and upon arrival the patient was found to be in distress and subsequent transported to [facility] for further care and evaluation of the aforementioned symptoms. The patient was seen and evaluated in the emergency department. All lab and imaging studies reviewed. The patient was found to have diabetic ketoacidosis, metabolic encephalopathy, as well as metabolic acidosis, and volume depletion. Patient mated to ICU and initiated on DKA protocol. Critical care team consulted in ED. Patient has fever, chills, chest pain, palpitation, productive cough, skin rash, recent contact, known exposure to COVID-1 Patients sullivan virus PCR is negative. Patient is sleeping. Patient is on 2 litres O2. O2 saturation 98%. No acute respiratory distress. Patient is running low grade temp at times. Mild leukocytosis. Blood pressure 139/64, Pulse 99, respirations 18. Today's Hgb is 7.2. Patient received a blood transfusion. Chest xray done 04/29/21 reported Low lung volumes with bibasilar opacities/atelectasis persists, unchanged. No pneumothorax. Chest xray done 05/08/21 reported table, mild increased densities and atelectasis in the lower lungs. No pneumothorax. Chest xray done 05/13/21 reported Increased interstitial prominence in bilateral lungs. Elevation right hemidiaphragm with right lower lung atelectasis No pneumothorax. Patient had right knee surgery. Patient is on Cefazolin, Albuterol aerosol treatments and Prevacid Objective Vital Signs - 12hr 05/15/21 05/15/21 05/15/21 11:18 15:44 16:30 Temperature 98.4 F 98.0 F Pulse Rate 103 H 94 H Pulse Rate [ 100 H From Monitor] Respiratory 18 18 16 Rate Blood Pressure 187/85 139/64 O2 Sat by Pulse 96 99 97 Oximetry Constitutional: no acute distress, asleep Eyes: non-icteric ENT: oropharynx moist Neck: supple, no lymphadenopathy, no JVD Effort: normal Ascultation: Bilateral: diminished breath sounds, rhonchi Percussion: Bilateral: not dull Cardiovascular: regular rate and rhythm, other (S1,S2) Gastrointestinal: hypoactive bowel sounds, soft, non-tender, non-distended (protuberant) Integumentary: rash (perineal) Extremities: no cyanosis, no edema, pulses normal, no ischemia or petechiae, other (Right knee surgery.) Neurologic: normal mental status, non-focal exam, pupils equal and round, other CBC and BMP: 05/16/21 10:09 05/16/21 10:09 ABG, PT/INR, D-dimer: ABG ABG pH 7.426 pH Units (7.350-7.450) 04/25/21 11:20 ABG pCO2 25.3 mm Hg 04/25/21 11:20 ABG pO2 73.2 mm Hg (80.0-90.0) L 04/25/21 11:20 ABG O2 Saturation 96.9 % (95.0-99.0) 04/25/21 11:20 PT/INR, D-dimer PT 15.8 Sec. (12.2-14.9) H 05/15/21 13:04 INR 1.14 (0.87-1.13) H 05/15/21 13:04 Abnormal lab findings: Abnormal Labs 04/23/21 04/23/21 04/23/21 10:33 10:33 10:33 WBC RBC Hgb Hct MCV MCH 26 L RDW Plt Count Lymph % (Auto) Seg Neutrophils % Seg Neuts % (Manual) Lymphocytes % (Manual) 7.0 L Nucleated RBC % 2.0 H Seg Neutrophils # Lymphocytes # (Manual) 0.5 L PT INR ABG pO2 ABG HCO3 ABG Base Excess ABG Hemoglobin VBG pH 7.180 L* Oxyhemoglobin Sodium 122 L Potassium 3.0 L Chloride 84.8 L Carbon Dioxide 6 L* BUN 49 H Creatinine 1.4 H Glucose 775 H* POC Glucose Hemoglobin A1c Lactic Acid Calcium 12.2 H* Phosphorus Magnesium Alkaline Phosphatase 130 H C-Reactive Protein Total Protein Albumin 2.9 L Vancomycin Trough Crossmatch 04/23/21 04/23/21 04/23/21 10:40 12:44 14:01 WBC RBC Hgb Hct MCV MCH RDW Plt Count Lymph % (Auto) Seg Neutrophils % Seg Neuts % (Manual) Lymphocytes % (Manual) Nucleated RBC % Seg Neutrophils # Lymphocytes # (Manual) PT INR ABG pO2 ABG HCO3 ABG Base Excess ABG Hemoglobin VBG pH Oxyhemoglobin Sodium Potassium Chloride Carbon Dioxide BUN Creatinine Glucose POC Glucose > 600 H 550 H Hemoglobin A1c Lactic Acid Calcium Phosphorus 1.50 L Magnesium Alkaline Phosphatase C-Reactive Protein Total Protein Albumin Vancomycin Trough Crossmatch 04/23/21 04/23/21 04/23/21 14:01 14:04 14:56 WBC RBC Hgb Hct MCV MCH RDW Plt Count Lymph % (Auto) Seg Neutrophils % Seg Neuts % (Manual) Lymphocytes % (Manual) Nucleated RBC % Seg Neutrophils # Lymphocytes # (Manual) PT INR ABG pO2 ABG HCO3 ABG Base Excess ABG Hemoglobin VBG pH Oxyhemoglobin Sodium 125 L Potassium 3.0 L Chloride 89.2 L Carbon Dioxide 6 L* BUN 45 H Creatinine 1.3 H Glucose 594 H* POC Glucose 518 H 425 H Hemoglobin A1c Lactic Acid Calcium 10.9 H Phosphorus Magnesium Alkaline Phosphatase C-Reactive Protein Total Protein Albumin Vancomycin Trough Crossmatch 04/23/21 04/23/21 04/23/21 15:43 15:48 17:21 WBC RBC Hgb Hct MCV MCH RDW Plt Count Lymph % (Auto) Seg Neutrophils % Seg Neuts % (Manual) Lymphocytes % (Manual) Nucleated RBC % Seg Neutrophils # Lymphocytes # (Manual) PT INR ABG pO2 ABG HCO3 ABG Base Excess ABG Hemoglobin VBG pH Oxyhemoglobin Sodium 131 L Potassium 2.9 L* Chloride Carbon Dioxide 8 L* BUN 39 H Creatinine Glucose 434 H POC Glucose 410 H 407 H Hemoglobin A1c Lactic Acid Calcium 10.3 H Phosphorus Magnesium Alkaline Phosphatase C-Reactive Protein Total Protein Albumin Vancomycin Trough Crossmatch 04/23/21 04/23/21 04/23/21 18:07 19:13 19:54 WBC RBC Hgb Hct MCV MCH RDW Plt Count Lymph % (Auto) Seg Neutrophils % Seg Neuts % (Manual) Lymphocytes % (Manual) Nucleated RBC % Seg Neutrophils # Lymphocytes # (Manual) PT INR ABG pO2 ABG HCO3 ABG Base Excess ABG Hemoglobin VBG pH Oxyhemoglobin Sodium 131 L Potassium 3.1 L Chloride 95.9 L Carbon Dioxide 7 L* BUN 39 H Creatinine Glucose 391 H POC Glucose 428 H 350 H Hemoglobin A1c Lactic Acid Calcium 11.2 H Phosphorus Magnesium Alkaline Phosphatase C-Reactive Protein Total Protein Albumin Vancomycin Trough Crossmatch 04/23/21 04/23/21 04/23/21 19:54 20:12 20:59 WBC RBC Hgb Hct MCV MCH RDW Plt Count Lymph % (Auto) Seg Neutrophils % Seg Neuts % (Manual) Lymphocytes % (Manual) Nucleated RBC % Seg Neutrophils # Lymphocytes # (Manual) PT INR ABG pO2 ABG HCO3 ABG Base Excess ABG Hemoglobin VBG pH Oxyhemoglobin Sodium Potassium Chloride Carbon Dioxide BUN Creatinine Glucose POC Glucose 365 H 286 H Hemoglobin A1c Lactic Acid Calcium Phosphorus 1.10 L D Magnesium Alkaline Phosphatase C-Reactive Protein Total Protein Albumin Vancomycin Trough Crossmatch 04/23/21 04/23/21 04/23/21 22:05 22:23 22:59 WBC RBC Hgb Hct MCV MCH RDW Plt Count Lymph % (Auto) Seg Neutrophils % Seg Neuts % (Manual) Lymphocytes % (Manual) Nucleated RBC % Seg Neutrophils # Lymphocytes # (Manual) PT INR ABG pO2 ABG HCO3 ABG Base Excess ABG Hemoglobin VBG pH Oxyhemoglobin Sodium 135 L Potassium 3.2 L Chloride Carbon Dioxide 10 L BUN 35 H Creatinine Glucose 300 H POC Glucose 257 H 238 H Hemoglobin A1c Lactic Acid Calcium 11.6 H Phosphorus Magnesium Alkaline Phosphatase C-Reactive Protein Total Protein Albumin Vancomycin Trough Crossmatch 04/23/21 04/24/21 04/24/21 23:57 00:10 00:56 WBC RBC Hgb Hct MCV MCH RDW Plt Count Lymph % (Auto) Seg Neutrophils % Seg Neuts % (Manual) Lymphocytes % (Manual) Nucleated RBC % Seg Neutrophils # Lymphocytes # (Manual) PT INR ABG pO2 ABG HCO3 ABG Base Excess ABG Hemoglobin VBG pH Oxyhemoglobin Sodium Potassium 3.2 L Chloride Carbon Dioxide 13 L BUN 33 H Creatinine Glucose 267 H POC Glucose 223 H 254 H Hemoglobin A1c Lactic Acid Calcium 11.2 H Phosphorus 1.20 L Magnesium Alkaline Phosphatase C-Reactive Protein Total Protein Albumin Vancomycin Trough Crossmatch 04/24/21 04/24/21 04/24/21 01:58 02:58 03:57 WBC RBC Hgb Hct MCV MCH RDW Plt Count Lymph % (Auto) Seg Neutrophils % Seg Neuts % (Manual) Lymphocytes % (Manual) Nucleated RBC % Seg Neutrophils # Lymphocytes # (Manual) PT INR ABG pO2 ABG HCO3 ABG Base Excess ABG Hemoglobin VBG pH Oxyhemoglobin Sodium Potassium Chloride Carbon Dioxide BUN Creatinine Glucose POC Glucose 264 H 251 H 200 H Hemoglobin A1c Lactic Acid Calcium Phosphorus Magnesium Alkaline Phosphatase C-Reactive Protein Total Protein Albumin Vancomycin Trough Crossmatch 04/24/21 04/24/21 04/24/21 04:16 04:16 04:16 WBC RBC Hgb Hct MCV MCH 26 L RDW Plt Count Lymph % (Auto) Seg Neutrophils % Seg Neuts % (Manual) Lymphocytes % (Manual) Nucleated RBC % Seg Neutrophils # Lymphocytes # (Manual) PT INR ABG pO2 ABG HCO3 ABG Base Excess ABG Hemoglobin VBG pH Oxyhemoglobin Sodium Potassium Chloride 108.0 H Carbon Dioxide 13 L BUN 31 H Creatinine Glucose 243 H POC Glucose Hemoglobin A1c 18.3 H Lactic Acid Calcium 10.9 H Phosphorus 1.80 L D Magnesium Alkaline Phosphatase C-Reactive Protein Total Protein Albumin Vancomycin Trough Crossmatch 04/24/21 04/24/21 04/24/21 04:59 05:53 06:51 WBC RBC Hgb Hct MCV MCH RDW Plt Count Lymph % (Auto) Seg Neutrophils % Seg Neuts % (Manual) Lymphocytes % (Manual) Nucleated RBC % Seg Neutrophils # Lymphocytes # (Manual) PT INR ABG pO2 ABG HCO3 ABG Base Excess ABG Hemoglobin VBG pH Oxyhemoglobin Sodium Potassium Chloride Carbon Dioxide BUN Creatinine Glucose POC Glucose 208 H 213 H 161 H Hemoglobin A1c Lactic Acid Calcium Phosphorus Magnesium Alkaline Phosphatase C-Reactive Protein Total Protein Albumin Vancomycin Trough Crossmatch 04/24/21 04/24/21 04/24/21 07:58 09:21 10:06 WBC RBC Hgb Hct MCV MCH RDW Plt Count Lymph % (Auto) Seg Neutrophils % Seg Neuts % (Manual) Lymphocytes % (Manual) Nucleated RBC % Seg Neutrophils # Lymphocytes # (Manual) PT INR ABG pO2 ABG HCO3 ABG Base Excess ABG Hemoglobin VBG pH Oxyhemoglobin Sodium Potassium Chloride Carbon Dioxide BUN Creatinine Glucose POC Glucose 149 H 178 H 164 H Hemoglobin A1c Lactic Acid Calcium Phosphorus Magnesium Alkaline Phosphatase C-Reactive Protein Total Protein Albumin Vancomycin Trough Crossmatch 04/24/21 04/24/21 04/24/21 11:03 12:07 12:14 WBC RBC Hgb Hct MCV MCH RDW Plt Count Lymph % (Auto) Seg Neutrophils % Seg Neuts % (Manual) Lymphocytes % (Manual) Nucleated RBC % Seg Neutrophils # Lymphocytes # (Manual) PT INR ABG pO2 ABG HCO3 ABG Base Excess ABG Hemoglobin VBG pH Oxyhemoglobin Sodium Potassium 3.2 L Chloride 108.7 H Carbon Dioxide 16 L BUN 24 H Creatinine Glucose 160 H POC Glucose 157 H 142 H Hemoglobin A1c Lactic Acid Calcium 10.5 H Phosphorus 0.70 L* D Magnesium Alkaline Phosphatase C-Reactive Protein Total Protein Albumin Vancomycin Trough Crossmatch 04/24/21 04/24/21 04/24/21 12:14 13:02 14:00 WBC RBC Hgb Hct MCV MCH RDW Plt Count Lymph % (Auto) Seg Neutrophils % Seg Neuts % (Manual) Lymphocytes % (Manual) Nucleated RBC % Seg Neutrophils # Lymphocytes # (Manual) PT INR ABG pO2 ABG HCO3 ABG Base Excess ABG Hemoglobin VBG pH Oxyhemoglobin Sodium Potassium Chloride Carbon Dioxide BUN Creatinine Glucose POC Glucose 138 H 150 H Hemoglobin A1c Lactic Acid 2.50 H* Calcium Phosphorus Magnesium Alkaline Phosphatase C-Reactive Protein Total Protein Albumin Vancomycin Trough Crossmatch 04/24/21 04/24/21 04/24/21 15:14 16:07 17:11 WBC RBC Hgb Hct MCV MCH RDW Plt Count Lymph % (Auto) Seg Neutrophils % Seg Neuts % (Manual) Lymphocytes % (Manual) Nucleated RBC % Seg Neutrophils # Lymphocytes # (Manual) PT INR ABG pO2 ABG HCO3 ABG Base Excess ABG Hemoglobin VBG pH Oxyhemoglobin Sodium Potassium Chloride Carbon Dioxide BUN Creatinine Glucose POC Glucose 145 H 148 H 156 H Hemoglobin A1c Lactic Acid Calcium Phosphorus Magnesium Alkaline Phosphatase C-Reactive Protein Total Protein Albumin Vancomycin Trough Crossmatch 04/24/21 04/24/2121 18:12 18:24 19:55 WBC RBC Hgb Hct MCV MCH RDW Plt Count Lymph % (Auto) Seg Neutrophils % Seg Neuts % (Manual) Lymphocytes % (Manual) Nucleated RBC % Seg Neutrophils # Lymphocytes # (Manual) PT INR ABG pO2 ABG HCO3 ABG Base Excess ABG Hemoglobin VBG pH Oxyhemoglobin Sodium Potassium Chloride 109.2 H Carbon Dioxide 15 L BUN 22 H Creatinine Glucose 159 H POC Glucose 153 H 176 H Hemoglobin A1c Lactic Acid Calcium Phosphorus 1.80 L D Magnesium Alkaline Phosphatase C-Reactive Protein 24.30 H Total Protein Albumin Vancomycin Trough Crossmatch 04/24/21 04/24/21 04/24/21 20:55 22:04 23:02 WBC RBC Hgb Hct MCV MCH RDW Plt Count Lymph % (Auto) Seg Neutrophils % Seg Neuts % (Manual) Lymphocytes % (Manual) Nucleated RBC % Seg Neutrophils # Lymphocytes # (Manual) PT INR ABG pO2 ABG HCO3 ABG Base Excess ABG Hemoglobin VBG pH Oxyhemoglobin Sodium Potassium Chloride Carbon Dioxide BUN Creatinine Glucose POC Glucose 146 H 169 H Hemoglobin A1c Lactic Acid 3.10 H* Calcium Phosphorus Magnesium Alkaline Phosphatase C-Reactive Protein Total Protein Albumin Vancomycin Trough Crossmatch 04/24/21 04/25/21 04/25/21 23:13 00:05 01:28 WBC RBC Hgb Hct MCV MCH RDW Plt Count Lymph % (Auto) Seg Neutrophils % Seg Neuts % (Manual) Lymphocytes % (Manual) Nucleated RBC % Seg Neutrophils # Lymphocytes # (Manual) PT INR ABG pO2 ABG HCO3 ABG Base Excess ABG Hemoglobin VBG pH Oxyhemoglobin Sodium Potassium Chloride Carbon Dioxide BUN Creatinine Glucose POC Glucose 144 H 150 H 142 H Hemoglobin A1c Lactic Acid Calcium Phosphorus Magnesium Alkaline Phosphatase C-Reactive Protein Total Protein Albumin Vancomycin Trough Crossmatch 04/25/21 04/25/21 04/25/21 02:03 03:07 04:17 WBC RBC Hgb Hct MCV MCH RDW Plt Count Lymph % (Auto) Seg Neutrophils % Seg Neuts % (Manual) Lymphocytes % (Manual) Nucleated RBC % Seg Neutrophils # Lymphocytes # (Manual) PT INR ABG pO2 ABG HCO3 ABG Base Excess ABG Hemoglobin VBG pH Oxyhemoglobin Sodium Potassium Chloride Carbon Dioxide BUN Creatinine Glucose POC Glucose 148 H 161 H 158 H Hemoglobin A1c Lactic Acid Calcium Phosphorus Magnesium Alkaline Phosphatase C-Reactive Protein Total Protein Albumin Vancomycin Trough Crossmatch 04/25/21 04/25/21 04/25/21 05:48 06:52 07:58 WBC RBC Hgb Hct MCV MCH RDW Plt Count Lymph % (Auto) Seg Neutrophils % Seg Neuts % (Manual) Lymphocytes % (Manual) Nucleated RBC % Seg Neutrophils # Lymphocytes # (Manual) PT INR ABG pO2 ABG HCO3 ABG Base Excess ABG Hemoglobin VBG pH Oxyhemoglobin Sodium Potassium Chloride Carbon Dioxide BUN Creatinine Glucose POC Glucose 136 H 137 H 143 H Hemoglobin A1c Lactic Acid Calcium Phosphorus Magnesium Alkaline Phosphatase C-Reactive Protein Total Protein Albumin Vancomycin Trough Crossmatch 04/25/21 04/25/21 04/25/21 08:10 08:10 08:10 WBC RBC Hgb 9.5 L Hct 28.8 L MCV MCH 26 L RDW Plt Count Lymph % (Auto) Seg Neutrophils % Seg Neuts % (Manual) 33.0 L Lymphocytes % (Manual) Nucleated RBC % Seg Neutrophils # Lymphocytes # (Manual) 1.1 L PT INR ABG pO2 ABG HCO3 ABG Base Excess ABG Hemoglobin VBG pH Oxyhemoglobin Sodium Potassium 3.3 L Chloride 109.0 H Carbon Dioxide 16 L BUN 23 H Creatinine Glucose 151 H POC Glucose Hemoglobin A1c Lactic Acid 2.10 H* Calcium Phosphorus 2.20 L D Magnesium 1.60 L Alkaline Phosphatase C-Reactive Protein Total Protein Albumin Vancomycin Trough Crossmatch 04/25/21 04/25/21 04/25/21 08:53 09:59 11:20 WBC RBC Hgb Hct MCV MCH RDW Plt Count Lymph % (Auto) Seg Neutrophils % Seg Neuts % (Manual) Lymphocytes % (Manual) Nucleated RBC % Seg Neutrophils # Lymphocytes # (Manual) PT INR ABG pO2 ABG HCO3 ABG Base Excess ABG Hemoglobin VBG pH Oxyhemoglobin Sodium Potassium Chloride Carbon Dioxide BUN Creatinine Glucose POC Glucose 132 H 141 H 141 H Hemoglobin A1c Lactic Acid Calcium Phosphorus Magnesium Alkaline Phosphatase C-Reactive Protein Total Protein Albumin Vancomycin Trough Crossmatch 04/25/21 04/25/21 04/25/21 11:20 12:04 12:26 WBC RBC Hgb Hct MCV MCH RDW Plt Count Lymph % (Auto) Seg Neutrophils % Seg Neuts % (Manual) Lymphocytes % (Manual) Nucleated RBC % Seg Neutrophils # Lymphocytes # (Manual) PT INR ABG pO2 73.2 L ABG HCO3 16.2 L ABG Base Excess -7.1 L ABG Hemoglobin 8.7 L VBG pH Oxyhemoglobin 94.8 L Sodium Potassium 3.4 L Chloride 109.5 H Carbon Dioxide 14 L BUN 21 H Creatinine Glucose 155 H POC Glucose 129 H Hemoglobin A1c Lactic Acid Calcium Phosphorus 1.90 L Magnesium 1.60 L Alkaline Phosphatase C-Reactive Protein Total Protein Albumin Vancomycin Trough Crossmatch 04/25/21 04/25/21 04/25/21 13:04 13:58 15:09 WBC RBC Hgb Hct MCV MCH RDW Plt Count Lymph % (Auto) Seg Neutrophils % Seg Neuts % (Manual) Lymphocytes % (Manual) Nucleated RBC % Seg Neutrophils # Lymphocytes # (Manual) PT INR ABG pO2 ABG HCO3 ABG Base Excess ABG Hemoglobin VBG pH Oxyhemoglobin Sodium Potassium Chloride Carbon Dioxide BUN Creatinine Glucose POC Glucose 135 H 140 H 134 H Hemoglobin A1c Lactic Acid Calcium Phosphorus Magnesium Alkaline Phosphatase C-Reactive Protein Total Protein Albumin Vancomycin Trough Crossmatch 04/25/21 04/25/21 04/25/21 16:00 18:56 18:58 WBC RBC Hgb Hct MCV MCH RDW Plt Count Lymph % (Auto) Seg Neutrophils % Seg Neuts % (Manual) Lymphocytes % (Manual) Nucleated RBC % Seg Neutrophils # Lymphocytes # (Manual) PT INR ABG pO2 ABG HCO3 ABG Base Excess ABG Hemoglobin VBG pH Oxyhemoglobin Sodium Potassium Chloride Carbon Dioxide BUN Creatinine Glucose POC Glucose 135 H 170 H Hemoglobin A1c Lactic Acid 2.10 H* Calcium Phosphorus Magnesium Alkaline Phosphatase C-Reactive Protein Total Protein Albumin Vancomycin Trough Crossmatch 04/25/21 04/25/21 04/25/21 18:58 19:52 20:53 WBC RBC Hgb Hct MCV MCH RDW Plt Count Lymph % (Auto) Seg Neutrophils % Seg Neuts % (Manual) Lymphocytes % (Manual) Nucleated RBC % Seg Neutrophils # Lymphocytes # (Manual) PT INR ABG pO2 ABG HCO3 ABG Base Excess ABG Hemoglobin VBG pH Oxyhemoglobin Sodium Potassium Chloride 110.1 H Carbon Dioxide 13 L BUN 23 H Creatinine Glucose 206 H POC Glucose 162 H 171 H Hemoglobin A1c Lactic Acid Calcium Phosphorus Magnesium 2.40 H Alkaline Phosphatase C-Reactive Protein Total Protein Albumin Vancomycin Trough Crossmatch 04/25/21 04/25/21 04/26/21 21:54 22:53 00:03 WBC RBC Hgb Hct MCV MCH RDW Plt Count Lymph % (Auto) Seg Neutrophils % Seg Neuts % (Manual) Lymphocytes % (Manual) Nucleated RBC % Seg Neutrophils # Lymphocytes # (Manual) PT INR ABG pO2 ABG HCO3 ABG Base Excess ABG Hemoglobin VBG pH Oxyhemoglobin Sodium Potassium Chloride Carbon Dioxide BUN Creatinine Glucose POC Glucose 139 H 140 H 129 H Hemoglobin A1c Lactic Acid Calcium Phosphorus Magnesium Alkaline Phosphatase C-Reactive Protein Total Protein Albumin Vancomycin Trough Crossmatch 04/26/21 04/26/21 04/26/21 00:38 01:00 01:56 WBC RBC Hgb Hct MCV MCH RDW Plt Count Lymph % (Auto) Seg Neutrophils % Seg Neuts % (Manual) Lymphocytes % (Manual) Nucleated RBC % Seg Neutrophils # Lymphocytes # (Manual) PT INR ABG pO2 ABG HCO3 ABG Base Excess ABG Hemoglobin VBG pH Oxyhemoglobin Sodium Potassium Chloride 112.6 H Carbon Dioxide 14 L BUN 22 H Creatinine Glucose 149 H POC Glucose 126 H 137 H Hemoglobin A1c Lactic Acid Calcium Phosphorus Magnesium 2.40 H Alkaline Phosphatase C-Reactive Protein Total Protein Albumin Vancomycin Trough Crossmatch 04/26/21 04/26/21 04/26/21 02:54 04:04 05:02 WBC RBC 3.44 L Hgb 8.9 L Hct 26.9 L MCV 78 L MCH 26 L RDW Plt Count Lymph % (Auto) Seg Neutrophils % Seg Neuts % (Manual) Lymphocytes % (Manual) Nucleated RBC % Seg Neutrophils # Lymphocytes # (Manual) PT INR ABG pO2 ABG HCO3 ABG Base Excess ABG Hemoglobin VBG pH Oxyhemoglobin Sodium Potassium Chloride Carbon Dioxide BUN Creatinine Glucose POC Glucose 132 H 130 H Hemoglobin A1c Lactic Acid Calcium Phosphorus Magnesium Alkaline Phosphatase C-Reactive Protein Total Protein Albumin Vancomycin Trough Crossmatch 04/26/21 04/26/21 04/26/21 05:02 05:03 06:06 WBC RBC Hgb Hct MCV MCH RDW Plt Count Lymph % (Auto) Seg Neutrophils % Seg Neuts % (Manual) Lymphocytes % (Manual) Nucleated RBC % Seg Neutrophils # Lymphocytes # (Manual) PT INR ABG pO2 ABG HCO3 ABG Base Excess ABG Hemoglobin VBG pH Oxyhemoglobin Sodium Potassium Chloride 114.8 H Carbon Dioxide 14 L BUN 22 H Creatinine Glucose 129 H POC Glucose 115 H 129 H Hemoglobin A1c Lactic Acid Calcium Phosphorus Magnesium Alkaline Phosphatase C-Reactive Protein Total Protein Albumin Vancomycin Trough Crossmatch 04/26/21 04/26/21 04/26/21 06:53 07:58 09:09 WBC RBC Hgb Hct MCV MCH RDW Plt Count Lymph % (Auto) Seg Neutrophils % Seg Neuts % (Manual) Lymphocytes % (Manual) Nucleated RBC % Seg Neutrophils # Lymphocytes # (Manual) PT INR ABG pO2 ABG HCO3 ABG Base Excess ABG Hemoglobin VBG pH Oxyhemoglobin Sodium Potassium Chloride Carbon Dioxide BUN Creatinine Glucose POC Glucose 121 H 124 H 125 H Hemoglobin A1c Lactic Acid Calcium Phosphorus Magnesium Alkaline Phosphatase C-Reactive Protein Total Protein Albumin Vancomycin Trough Crossmatch 04/26/21 04/26/21 04/26/21 10:05 10:52 12:00 WBC RBC Hgb Hct MCV MCH RDW Plt Count Lymph % (Auto) Seg Neutrophils % Seg Neuts % (Manual) Lymphocytes % (Manual) Nucleated RBC % Seg Neutrophils # Lymphocytes # (Manual) PT INR ABG pO2 ABG HCO3 ABG Base Excess ABG Hemoglobin VBG pH Oxyhemoglobin Sodium Potassium Chloride Carbon Dioxide BUN Creatinine Glucose POC Glucose 131 H 129 H 126 H Hemoglobin A1c Lactic Acid Calcium Phosphorus Magnesium Alkaline Phosphatase C-Reactive Protein Total Protein Albumin Vancomycin Trough Crossmatch 04/26/21 04/26/21 04/26/21 13:17 14:06 14:11 WBC RBC Hgb Hct MCV MCH RDW Plt Count Lymph % (Auto) Seg Neutrophils % Seg Neuts % (Manual) Lymphocytes % (Manual) Nucleated RBC % Seg Neutrophils # Lymphocytes # (Manual) PT INR ABG pO2 ABG HCO3 ABG Base Excess ABG Hemoglobin VBG pH Oxyhemoglobin Sodium Potassium 5.3 H D Chloride 112.2 H Carbon Dioxide 14 L BUN 22 H Creatinine Glucose 116 H POC Glucose 130 H 132 H Hemoglobin A1c Lactic Acid Calcium Phosphorus Magnesium 2.40 H Alkaline Phosphatase C-Reactive Protein Total Protein Albumin Vancomycin Trough Crossmatch 04/26/21 04/26/21 04/26/21 15:07 15:20 16:05 WBC RBC Hgb Hct MCV MCH RDW Plt Count Lymph % (Auto) Seg Neutrophils % Seg Neuts % (Manual) Lymphocytes % (Manual) Nucleated RBC % Seg Neutrophils # Lymphocytes # (Manual) PT INR ABG pO2 ABG HCO3 ABG Base Excess ABG Hemoglobin VBG pH Oxyhemoglobin Sodium Potassium Chloride 112.4 H Carbon Dioxide 13 L BUN 22 H Creatinine Glucose 143 H POC Glucose 130 H 156 H Hemoglobin A1c Lactic Acid Calcium Phosphorus Magnesium Alkaline Phosphatase C-Reactive Protein Total Protein Albumin Vancomycin Trough Crossmatch 04/26/21 04/26/21 04/27/21 17:55 19:27 00:02 WBC RBC Hgb Hct MCV MCH RDW Plt Count Lymph % (Auto) Seg Neutrophils % Seg Neuts % (Manual) Lymphocytes % (Manual) Nucleated RBC % Seg Neutrophils # Lymphocytes # (Manual) PT INR ABG pO2 ABG HCO3 ABG Base Excess ABG Hemoglobin VBG pH Oxyhemoglobin Sodium Potassium Chloride Carbon Dioxide BUN Creatinine Glucose POC Glucose 194 H 261 H Hemoglobin A1c Lactic Acid Calcium Phosphorus Magnesium Alkaline Phosphatase C-Reactive Protein Total Protein Albumin Vancomycin Trough 38.2 H Crossmatch 04/27/21 04/27/21 04/27/21 04:03 04:03 05:33 WBC RBC 3.20 L Hgb 8.1 L Hct 25.1 L MCV 78 L MCH 25 L RDW Plt Count Lymph % (Auto) Seg Neutrophils % Seg Neuts % (Manual) Lymphocytes % (Manual) Nucleated RBC % Seg Neutrophils # Lymphocytes # (Manual) PT INR ABG pO2 ABG HCO3 ABG Base Excess ABG Hemoglobin VBG pH Oxyhemoglobin Sodium Potassium Chloride 112.4 H Carbon Dioxide 12 L BUN 30 H Creatinine Glucose 330 H POC Glucose 311 H Hemoglobin A1c Lactic Acid Calcium Phosphorus Magnesium Alkaline Phosphatase C-Reactive Protein Total Protein Albumin Vancomycin Trough Crossmatch 04/27/21 04/27/21 04/27/21 09:51 13:15 16:43 WBC RBC Hgb Hct MCV MCH RDW Plt Count Lymph % (Auto) Seg Neutrophils % Seg Neuts % (Manual) Lymphocytes % (Manual) Nucleated RBC % Seg Neutrophils # Lymphocytes # (Manual) PT INR ABG pO2 ABG HCO3 ABG Base Excess ABG Hemoglobin VBG pH Oxyhemoglobin Sodium Potassium Chloride Carbon Dioxide BUN Creatinine Glucose POC Glucose 335 H 291 H 218 H Hemoglobin A1c Lactic Acid Calcium Phosphorus Magnesium Alkaline Phosphatase C-Reactive Protein Total Protein Albumin Vancomycin Trough Crossmatch 04/27/21 04/27/21 04/28/21 18:10 22:08 02:15 WBC RBC Hgb Hct MCV MCH RDW Plt Count Lymph % (Auto) Seg Neutrophils % Seg Neuts % (Manual) Lymphocytes % (Manual) Nucleated RBC % Seg Neutrophils # Lymphocytes # (Manual) PT INR ABG pO2 ABG HCO3 ABG Base Excess ABG Hemoglobin VBG pH Oxyhemoglobin Sodium Potassium Chloride Carbon Dioxide BUN Creatinine Glucose POC Glucose 177 H 136 H 152 H Hemoglobin A1c Lactic Acid Calcium Phosphorus Magnesium Alkaline Phosphatase C-Reactive Protein Total Protein Albumin Vancomycin Trough Crossmatch 04/28/21 04/28/21 04/28/21 04:41 04:41 06:03 WBC RBC 3.50 L Hgb 8.9 L Hct 27.3 L MCV 78 L MCH 26 L RDW Plt Count Lymph % (Auto) Seg Neutrophils % Seg Neuts % (Manual) Lymphocytes % (Manual) Nucleated RBC % Seg Neutrophils # Lymphocytes # (Manual) PT INR ABG pO2 ABG HCO3 ABG Base Excess ABG Hemoglobin VBG pH Oxyhemoglobin Sodium Potassium Chloride 113.5 H Carbon Dioxide 16 L BUN 37 H Creatinine Glucose 167 H POC Glucose 174 H Hemoglobin A1c Lactic Acid Calcium Phosphorus Magnesium Alkaline Phosphatase C-Reactive Protein Total Protein Albumin Vancomycin Trough Crossmatch 04/28/21 04/28/21 04/28/21 08:42 11:34 17:15 WBC RBC Hgb Hct MCV MCH RDW Plt Count Lymph % (Auto) Seg Neutrophils % Seg Neuts % (Manual) Lymphocytes % (Manual) Nucleated RBC % Seg Neutrophils # Lymphocytes # (Manual) PT INR ABG pO2 ABG HCO3 ABG Base Excess ABG Hemoglobin VBG pH Oxyhemoglobin Sodium Potassium Chloride Carbon Dioxide BUN Creatinine Glucose POC Glucose 212 H 228 H 236 H Hemoglobin A1c Lactic Acid Calcium Phosphorus Magnesium Alkaline Phosphatase C-Reactive Protein Total Protein Albumin Vancomycin Trough Crossmatch 04/28/21 04/29/21 04/29/21 21:58 01:55 04:00 WBC 11.7 H RBC 3.35 L Hgb 8.5 L Hct 26.4 L MCV MCH 25 L RDW Plt Count Lymph % (Auto) Seg Neutrophils % Seg Neuts % (Manual) Lymphocytes % (Manual) Nucleated RBC % Seg Neutrophils # Lymphocytes # (Manual) PT INR ABG pO2 ABG HCO3 ABG Base Excess ABG Hemoglobin VBG pH Oxyhemoglobin Sodium Potassium Chloride Carbon Dioxide BUN Creatinine Glucose POC Glucose 208 H 137 H Hemoglobin A1c Lactic Acid Calcium Phosphorus Magnesium Alkaline Phosphatase C-Reactive Protein Total Protein Albumin Vancomycin Trough Crossmatch 04/29/21 04/29/21 04/29/21 04:00 05:16 11:02 WBC RBC Hgb Hct MCV MCH RDW Plt Count Lymph % (Auto) Seg Neutrophils % Seg Neuts % (Manual) Lymphocytes % (Manual) Nucleated RBC % Seg Neutrophils # Lymphocytes # (Manual) PT INR ABG pO2 ABG HCO3 ABG Base Excess ABG Hemoglobin VBG pH Oxyhemoglobin Sodium 146 H Potassium Chloride 112.4 H Carbon Dioxide BUN 41 H Creatinine Glucose 115 H POC Glucose 114 H 144 H Hemoglobin A1c Lactic Acid Calcium Phosphorus Magnesium Alkaline Phosphatase C-Reactive Protein Total Protein Albumin Vancomycin Trough Crossmatch 04/30/21 04/30/21 04/30/21 00:23 04:41 04:41 WBC 14.4 H RBC 3.12 L Hgb 7.8 L Hct 24.7 L MCV MCH 25 L RDW Plt Count 138 L Lymph % (Auto) Seg Neutrophils % Seg Neuts % (Manual) Lymphocytes % (Manual) Nucleated RBC % Seg Neutrophils # Lymphocytes # (Manual) PT INR ABG pO2 ABG HCO3 ABG Base Excess ABG Hemoglobin VBG pH Oxyhemoglobin Sodium Potassium Chloride 108.0 H Carbon Dioxide BUN 42 H Creatinine Glucose 215 H POC Glucose 126 H Hemoglobin A1c Lactic Acid Calcium Phosphorus Magnesium Alkaline Phosphatase 171 H C-Reactive Protein Total Protein 6.1 L Albumin 1.4 L Vancomycin Trough Crossmatch 04/30/21 04/30/21 04/30/21 05:22 11:55 17:36 WBC RBC Hgb Hct MCV MCH RDW Plt Count Lymph % (Auto) Seg Neutrophils % Seg Neuts % (Manual) Lymphocytes % (Manual) Nucleated RBC % Seg Neutrophils # Lymphocytes # (Manual) PT INR ABG pO2 ABG HCO3 ABG Base Excess ABG Hemoglobin VBG pH Oxyhemoglobin Sodium Potassium Chloride Carbon Dioxide BUN Creatinine Glucose POC Glucose 196 H 224 H 196 H Hemoglobin A1c Lactic Acid Calcium Phosphorus Magnesium Alkaline Phosphatase C-Reactive Protein Total Protein Albumin Vancomycin Trough Crossmatch 05/01/21 05/01/21 05/01/21 04:01 05:37 05:37 WBC 16.9 H RBC 2.97 L Hgb 7.4 L Hct 23.1 L MCV 78 L MCH 25 L RDW Plt Count Lymph % (Auto) Seg Neutrophils % Seg Neuts % (Manual) Lymphocytes % (Manual) Nucleated RBC % Seg Neutrophils # Lymphocytes # (Manual) PT INR ABG pO2 ABG HCO3 ABG Base Excess ABG Hemoglobin VBG pH Oxyhemoglobin Sodium Potassium Chloride 108.4 H Carbon Dioxide BUN 41 H Creatinine Glucose 124 H POC Glucose 122 H Hemoglobin A1c Lactic Acid Calcium 8.0 L Phosphorus Magnesium Alkaline Phosphatase C-Reactive Protein Total Protein Albumin Vancomycin Trough Crossmatch 05/01/21 05/01/21 05/01/21 06:27 13:45 16:40 WBC RBC Hgb Hct MCV MCH RDW Plt Count Lymph % (Auto) Seg Neutrophils % Seg Neuts % (Manual) Lymphocytes % (Manual) Nucleated RBC % Seg Neutrophils # Lymphocytes # (Manual) PT INR ABG pO2 ABG HCO3 ABG Base Excess ABG Hemoglobin VBG pH Oxyhemoglobin Sodium Potassium Chloride Carbon Dioxide BUN Creatinine Glucose POC Glucose 126 H 231 H 266 H Hemoglobin A1c Lactic Acid Calcium Phosphorus Magnesium Alkaline Phosphatase C-Reactive Protein Total Protein Albumin Vancomycin Trough Crossmatch 05/01/21 05/02/21 05/02/21 23:16 05:43 11:27 WBC RBC Hgb Hct MCV MCH RDW Plt Count Lymph % (Auto) Seg Neutrophils % Seg Neuts % (Manual) Lymphocytes % (Manual) Nucleated RBC % Seg Neutrophils # Lymphocytes # (Manual) PT INR ABG pO2 ABG HCO3 ABG Base Excess ABG Hemoglobin VBG pH Oxyhemoglobin Sodium Potassium Chloride Carbon Dioxide BUN Creatinine Glucose POC Glucose 192 H 236 H 284 H Hemoglobin A1c Lactic Acid Calcium Phosphorus Magnesium Alkaline Phosphatase C-Reactive Protein Total Protein Albumin Vancomycin Trough Crossmatch 05/02/21 05/02/21 05/03/21 16:52 23:20 06:16 WBC RBC Hgb Hct MCV MCH RDW Plt Count Lymph % (Auto) Seg Neutrophils % Seg Neuts % (Manual) Lymphocytes % (Manual) Nucleated RBC % Seg Neutrophils # Lymphocytes # (Manual) PT INR ABG pO2 ABG HCO3 ABG Base Excess ABG Hemoglobin VBG pH Oxyhemoglobin Sodium Potassium Chloride Carbon Dioxide BUN Creatinine Glucose POC Glucose 170 H 124 H 147 H Hemoglobin A1c Lactic Acid Calcium Phosphorus Magnesium Alkaline Phosphatase C-Reactive Protein Total Protein Albumin Vancomycin Trough Crossmatch 05/03/21 05/03/21 05/03/21 07:05 07:05 11:46 WBC 14.3 H RBC 2.82 L Hgb 6.8 L Hct 22.7 L MCV MCH 24 L RDW Plt Count Lymph % (Auto) 11.8 L Seg Neutrophils % 83.3 H Seg Neuts % (Manual) Lymphocytes % (Manual) Nucleated RBC % Seg Neutrophils # 11.9 H Lymphocytes # (Manual) PT INR ABG pO2 ABG HCO3 ABG Base Excess ABG Hemoglobin VBG pH Oxyhemoglobin Sodium Potassium Chloride Carbon Dioxide BUN 39 H Creatinine Glucose 163 H POC Glucose 134 H Hemoglobin A1c Lactic Acid Calcium Phosphorus Magnesium Alkaline Phosphatase C-Reactive Protein Total Protein Albumin Vancomycin Trough Crossmatch 05/03/21 05/03/21 05/03/21 17:11 18:00 19:46 WBC RBC Hgb Hct MCV MCH RDW Plt Count Lymph % (Auto) Seg Neutrophils % Seg Neuts % (Manual) Lymphocytes % (Manual) Nucleated RBC % Seg Neutrophils # Lymphocytes # (Manual) PT INR ABG pO2 ABG HCO3 ABG Base Excess ABG Hemoglobin VBG pH Oxyhemoglobin Sodium Potassium Chloride Carbon Dioxide BUN Creatinine Glucose POC Glucose 129 H 128 H Hemoglobin A1c Lactic Acid Calcium Phosphorus Magnesium Alkaline Phosphatase C-Reactive Protein Total Protein Albumin Vancomycin Trough Crossmatch See Detail 05/03/21 05/04/21 05/04/21 22:00 08:06 11:19 WBC RBC Hgb Hct MCV MCH RDW Plt Count Lymph % (Auto) Seg Neutrophils % Seg Neuts % (Manual) Lymphocytes % (Manual) Nucleated RBC % Seg Neutrophils # Lymphocytes # (Manual) PT INR ABG pO2 ABG HCO3 ABG Base Excess ABG Hemoglobin VBG pH Oxyhemoglobin Sodium Potassium Chloride Carbon Dioxide BUN Creatinine Glucose POC Glucose 144 H 337 H 383 H Hemoglobin A1c Lactic Acid Calcium Phosphorus Magnesium Alkaline Phosphatase C-Reactive Protein Total Protein Albumin Vancomycin Trough Crossmatch 05/04/21 05/04/21 05/05/21 17:43 23:01 06:05 WBC RBC Hgb Hct MCV MCH RDW Plt Count Lymph % (Auto) Seg Neutrophils % Seg Neuts % (Manual) Lymphocytes % (Manual) Nucleated RBC % Seg Neutrophils # Lymphocytes # (Manual) PT INR ABG pO2 ABG HCO3 ABG Base Excess ABG Hemoglobin VBG pH Oxyhemoglobin Sodium Potassium Chloride Carbon Dioxide BUN Creatinine Glucose POC Glucose 316 H 320 H 395 H Hemoglobin A1c Lactic Acid Calcium Phosphorus Magnesium Alkaline Phosphatase C-Reactive Protein Total Protein Albumin Vancomycin Trough Crossmatch 05/05/21 05/05/21 05/05/21 06:15 06:15 11:38 WBC RBC 2.56 L Hgb 6.8 L 6.9 L Hct 21.4 L 22.7 L MCV MCH 27 L RDW Plt Count 442 H Lymph % (Auto) Seg Neutrophils % 76.5 H Seg Neuts % (Manual) Lymphocytes % (Manual) Nucleated RBC % Seg Neutrophils # Lymphocytes # (Manual) PT INR ABG pO2 ABG HCO3 ABG Base Excess ABG Hemoglobin VBG pH Oxyhemoglobin Sodium Potassium Chloride Carbon Dioxide BUN 52 H Creatinine Glucose 430 H POC Glucose Hemoglobin A1c Lactic Acid Calcium Phosphorus Magnesium Alkaline Phosphatase C-Reactive Protein Total Protein Albumin Vancomycin Trough Crossmatch 05/05/21 05/05/21 05/06/21 11:47 23:07 06:44 WBC RBC Hgb Hct MCV MCH RDW Plt Count Lymph % (Auto) Seg Neutrophils % Seg Neuts % (Manual) Lymphocytes % (Manual) Nucleated RBC % Seg Neutrophils # Lymphocytes # (Manual) PT INR ABG pO2 ABG HCO3 ABG Base Excess ABG Hemoglobin VBG pH Oxyhemoglobin Sodium Potassium Chloride Carbon Dioxide BUN Creatinine Glucose POC Glucose 307 H 141 H 147 H Hemoglobin A1c Lactic Acid Calcium Phosphorus Magnesium Alkaline Phosphatase C-Reactive Protein Total Protein Albumin Vancomycin Trough Crossmatch 05/06/21 05/06/21 05/06/21 07:52 12:27 17:02 WBC RBC Hgb 7.0 L Hct 21.8 L MCV MCH RDW Plt Count Lymph % (Auto) Seg Neutrophils % Seg Neuts % (Manual) Lymphocytes % (Manual) Nucleated RBC % Seg Neutrophils # Lymphocytes # (Manual) PT INR ABG pO2 ABG HCO3 ABG Base Excess ABG Hemoglobin VBG pH Oxyhemoglobin Sodium Potassium Chloride Carbon Dioxide BUN Creatinine Glucose POC Glucose 200 H 135 H Hemoglobin A1c Lactic Acid Calcium Phosphorus Magnesium Alkaline Phosphatase C-Reactive Protein Total Protein Albumin Vancomycin Trough Crossmatch 05/06/21 05/07/21 05/07/21 23:03 08:02 10:49 WBC RBC Hgb 7.4 L Hct 23.7 L MCV MCH RDW Plt Count Lymph % (Auto) Seg Neutrophils % Seg Neuts % (Manual) Lymphocytes % (Manual) Nucleated RBC % Seg Neutrophils # Lymphocytes # (Manual) PT INR ABG pO2 ABG HCO3 ABG Base Excess ABG Hemoglobin VBG pH Oxyhemoglobin Sodium Potassium Chloride Carbon Dioxide BUN Creatinine Glucose POC Glucose 150 H 255 H Hemoglobin A1c Lactic Acid Calcium Phosphorus Magnesium Alkaline Phosphatase C-Reactive Protein Total Protein Albumin Vancomycin Trough Crossmatch 05/07/21 05/07/21 05/07/21 13:27 18:03 Unknown WBC RBC 2.66 L Hgb 6.9 L Hct 22.3 L MCV MCH 26 L RDW 15.4 H Plt Count 449 H Lymph % (Auto) Seg Neutrophils % 70.7 H Seg Neuts % (Manual) Lymphocytes % (Manual) Nucleated RBC % Seg Neutrophils # Lymphocytes # (Manual) PT INR ABG pO2 ABG HCO3 ABG Base Excess ABG Hemoglobin VBG pH Oxyhemoglobin Sodium Potassium Chloride Carbon Dioxide BUN Creatinine Glucose POC Glucose 149 H 127 H Hemoglobin A1c Lactic Acid Calcium Phosphorus Magnesium Alkaline Phosphatase C-Reactive Protein Total Protein Albumin Vancomycin Trough Crossmatch 05/08/21 05/08/21 05/08/21 06:10 07:51 11:55 WBC RBC Hgb Hct MCV MCH RDW Plt Count Lymph % (Auto) Seg Neutrophils % Seg Neuts % (Manual) Lymphocytes % (Manual) Nucleated RBC % Seg Neutrophils # Lymphocytes # (Manual) PT INR ABG pO2 ABG HCO3 ABG Base Excess ABG Hemoglobin VBG pH Oxyhemoglobin Sodium Potassium Chloride Carbon Dioxide BUN Creatinine Glucose POC Glucose 190 H 194 H 197 H Hemoglobin A1c Lactic Acid Calcium Phosphorus Magnesium Alkaline Phosphatase C-Reactive Protein Total Protein Albumin Vancomycin Trough Crossmatch 05/08/21 05/08/21 05/08/21 12:25 12:25 18:35 WBC RBC 2.42 L Hgb 6.6 L Hct 20.1 L MCV MCH 27 L RDW 15.3 H Plt Count 452 H Lymph % (Auto) Seg Neutrophils % Seg Neuts % (Manual) Lymphocytes % (Manual) Nucleated RBC % Seg Neutrophils # Lymphocytes # (Manual) PT INR ABG pO2 ABG HCO3 ABG Base Excess ABG Hemoglobin VBG pH Oxyhemoglobin Sodium Potassium Chloride Carbon Dioxide BUN 27 H Creatinine Glucose 216 H POC Glucose 195 H Hemoglobin A1c Lactic Acid Calcium 7.9 L Phosphorus Magnesium Alkaline Phosphatase C-Reactive Protein Total Protein Albumin Vancomycin Trough Crossmatch 05/08/21 05/09/21 05/09/21 23:45 01:39 02:57 WBC RBC Hgb 6.6 L Hct 20.7 L MCV MCH RDW Plt Count Lymph % (Auto) Seg Neutrophils % Seg Neuts % (Manual) Lymphocytes % (Manual) Nucleated RBC % Seg Neutrophils # Lymphocytes # (Manual) PT INR ABG pO2 ABG HCO3 ABG Base Excess ABG Hemoglobin VBG pH Oxyhemoglobin Sodium Potassium Chloride Carbon Dioxide BUN Creatinine Glucose POC Glucose 286 H Hemoglobin A1c Lactic Acid Calcium Phosphorus Magnesium Alkaline Phosphatase C-Reactive Protein Total Protein Albumin Vancomycin Trough Crossmatch See Detail 05/09/21 05/09/21 05/09/21 04:51 07:34 07:34 WBC RBC 2.46 L Hgb 6.3 L Hct 20.6 L MCV MCH 26 L RDW 15.5 H Plt Count 505 H Lymph % (Auto) Seg Neutrophils % Seg Neuts % (Manual) Lymphocytes % (Manual) Nucleated RBC % Seg Neutrophils # Lymphocytes # (Manual) PT INR ABG pO2 ABG HCO3 ABG Base Excess ABG Hemoglobin VBG pH Oxyhemoglobin Sodium Potassium Chloride Carbon Dioxide BUN 24 H Creatinine Glucose 307 H POC Glucose 266 H Hemoglobin A1c Lactic Acid Calcium 7.7 L Phosphorus Magnesium Alkaline Phosphatase C-Reactive Protein Total Protein Albumin Vancomycin Trough Crossmatch 05/09/21 05/09/21 05/10/21 12:20 16:01 05:34 WBC RBC Hgb Hct MCV MCH RDW Plt Count Lymph % (Auto) Seg Neutrophils % Seg Neuts % (Manual) Lymphocytes % (Manual) Nucleated RBC % Seg Neutrophils # Lymphocytes # (Manual) PT INR ABG pO2 ABG HCO3 ABG Base Excess ABG Hemoglobin VBG pH Oxyhemoglobin Sodium Potassium Chloride Carbon Dioxide BUN Creatinine Glucose POC Glucose 249 H 166 H 203 H Hemoglobin A1c Lactic Acid Calcium Phosphorus Magnesium Alkaline Phosphatase C-Reactive Protein Total Protein Albumin Vancomycin Trough Crossmatch 05/10/21 05/10/21 05/10/21 06:30 16:11 23:11 WBC RBC 2.62 L Hgb 6.8 L Hct 21.8 L MCV MCH 26 L RDW 15.6 H Plt Count 489 H Lymph % (Auto) Seg Neutrophils % Seg Neuts % (Manual) Lymphocytes % (Manual) Nucleated RBC % Seg Neutrophils # Lymphocytes # (Manual) PT INR ABG pO2 ABG HCO3 ABG Base Excess ABG Hemoglobin VBG pH Oxyhemoglobin Sodium Potassium Chloride Carbon Dioxide BUN Creatinine Glucose POC Glucose 210 H 134 H Hemoglobin A1c Lactic Acid Calcium Phosphorus Magnesium Alkaline Phosphatase C-Reactive Protein Total Protein Albumin Vancomycin Trough Crossmatch 05/11/21 05/11/21 05/11/21 05:29 12:07 18:11 WBC RBC Hgb Hct MCV MCH RDW Plt Count Lymph % (Auto) Seg Neutrophils % Seg Neuts % (Manual) Lymphocytes % (Manual) Nucleated RBC % Seg Neutrophils # Lymphocytes # (Manual) PT INR ABG pO2 ABG HCO3 ABG Base Excess ABG Hemoglobin VBG pH Oxyhemoglobin Sodium Potassium Chloride Carbon Dioxide BUN Creatinine Glucose POC Glucose 144 H 226 H 140 H Hemoglobin A1c Lactic Acid Calcium Phosphorus Magnesium Alkaline Phosphatase C-Reactive Protein Total Protein Albumin Vancomycin Trough Crossmatch 05/11/21 05/11/21 05/12/21 23:54 Unknown 10:01 WBC RBC 2.65 L Hgb 7.0 L Hct 22.1 L MCV MCH 26 L RDW 15.9 H Plt Count 518 H Lymph % (Auto) Seg Neutrophils % Seg Neuts % (Manual) Lymphocytes % (Manual) Nucleated RBC % Seg Neutrophils # Lymphocytes # (Manual) PT INR ABG pO2 ABG HCO3 ABG Base Excess ABG Hemoglobin VBG pH Oxyhemoglobin Sodium Potassium Chloride Carbon Dioxide BUN Creatinine Glucose POC Glucose 116 H 237 H Hemoglobin A1c Lactic Acid Calcium Phosphorus Magnesium Alkaline Phosphatase C-Reactive Protein Total Protein Albumin Vancomycin Trough Crossmatch 05/12/21 05/12/21 05/13/21 13:01 17:23 05:40 WBC RBC Hgb Hct MCV MCH RDW Plt Count Lymph % (Auto) Seg Neutrophils % Seg Neuts % (Manual) Lymphocytes % (Manual) Nucleated RBC % Seg Neutrophils # Lymphocytes # (Manual) PT INR ABG pO2 ABG HCO3 ABG Base Excess ABG Hemoglobin VBG pH Oxyhemoglobin Sodium Potassium Chloride Carbon Dioxide BUN Creatinine Glucose POC Glucose 227 H 158 H 126 H Hemoglobin A1c Lactic Acid Calcium Phosphorus Magnesium Alkaline Phosphatase C-Reactive Protein Total Protein Albumin Vancomycin Trough Crossmatch 05/13/21 05/13/21 05/13/21 09:16 09:16 11:50 WBC RBC 2.49 L Hgb 6.8 L Hct 20.7 L MCV MCH 27 L RDW 15.8 H Plt Count 535 H Lymph % (Auto) Seg Neutrophils % Seg Neuts % (Manual) Lymphocytes % (Manual) Nucleated RBC % Seg Neutrophils # Lymphocytes # (Manual) PT INR ABG pO2 ABG HCO3 ABG Base Excess ABG Hemoglobin VBG pH Oxyhemoglobin Sodium 135 L Potassium Chloride 97.0 L Carbon Dioxide BUN 25 H Creatinine Glucose 197 H POC Glucose 231 H Hemoglobin A1c Lactic Acid Calcium 7.8 L Phosphorus Magnesium Alkaline Phosphatase C-Reactive Protein Total Protein Albumin Vancomycin Trough Crossmatch 05/13/21 05/13/21 05/14/21 13:20 16:59 05:00 WBC 11.4 H RBC 2.80 L Hgb 7.7 L Hct 23.3 L MCV MCH 27 L RDW 16.0 H Plt Count 507 H Lymph % (Auto) Seg Neutrophils % Seg Neuts % (Manual) Lymphocytes % (Manual) Nucleated RBC % Seg Neutrophils # Lymphocytes # (Manual) PT INR ABG pO2 ABG HCO3 ABG Base Excess ABG Hemoglobin VBG pH Oxyhemoglobin Sodium Potassium Chloride Carbon Dioxide BUN Creatinine Glucose POC Glucose 130 H Hemoglobin A1c Lactic Acid Calcium Phosphorus Magnesium Alkaline Phosphatase C-Reactive Protein Total Protein Albumin Vancomycin Trough Crossmatch See Detail 05/14/21 05/14/21 05/14/21 05:00 05:34 11:59 WBC RBC Hgb Hct MCV MCH RDW Plt Count Lymph % (Auto) Seg Neutrophils % Seg Neuts % (Manual) Lymphocytes % (Manual) Nucleated RBC % Seg Neutrophils # Lymphocytes # (Manual) PT INR ABG pO2 ABG HCO3 ABG Base Excess ABG Hemoglobin VBG pH Oxyhemoglobin Sodium 135 L Potassium Chloride Carbon Dioxide BUN 24 H Creatinine Glucose 134 H POC Glucose 128 H 179 H Hemoglobin A1c Lactic Acid Calcium 8.0 L Phosphorus Magnesium Alkaline Phosphatase C-Reactive Protein Total Protein Albumin Vancomycin Trough Crossmatch 05/14/21 05/15/21 05/15/21 23:48 04:51 04:58 WBC 12.1 H RBC 2.80 L Hgb 7.2 L Hct 23.4 L MCV MCH 26 L RDW 16.1 H Plt Count 537 H Lymph % (Auto) Seg Neutrophils % Seg Neuts % (Manual) Lymphocytes % (Manual) Nucleated RBC % Seg Neutrophils # Lymphocytes # (Manual) PT INR ABG pO2 ABG HCO3 ABG Base Excess ABG Hemoglobin VBG pH Oxyhemoglobin Sodium Potassium Chloride Carbon Dioxide BUN Creatinine Glucose POC Glucose 171 H 220 H Hemoglobin A1c Lactic Acid Calcium Phosphorus Magnesium Alkaline Phosphatase C-Reactive Protein Total Protein Albumin Vancomycin Trough Crossmatch 05/15/21 05/15/21 05/15/21 05:53 09:02 10:48 WBC RBC Hgb Hct MCV MCH RDW Plt Count Lymph % (Auto) Seg Neutrophils % Seg Neuts % (Manual) Lymphocytes % (Manual) Nucleated RBC % Seg Neutrophils # Lymphocytes # (Manual) PT INR ABG pO2 ABG HCO3 ABG Base Excess ABG Hemoglobin VBG pH Oxyhemoglobin Sodium Potassium Chloride Carbon Dioxide BUN Creatinine Glucose POC Glucose 222 H 196 H 179 H Hemoglobin A1c Lactic Acid Calcium Phosphorus Magnesium Alkaline Phosphatase C-Reactive Protein Total Protein Albumin Vancomycin Trough Crossmatch 05/15/21 05/15/21 05/15/21 13:04 15:46 16:20 WBC RBC Hgb Hct MCV MCH RDW Plt Count Lymph % (Auto) Seg Neutrophils % Seg Neuts % (Manual) Lymphocytes % (Manual) Nucleated RBC % Seg Neutrophils # Lymphocytes # (Manual) PT 15.8 H INR 1.14 H ABG pO2 ABG HCO3 ABG Base Excess ABG Hemoglobin VBG pH Oxyhemoglobin Sodium Potassium Chloride Carbon Dioxide BUN Creatinine Glucose POC Glucose 49 L 122 H Hemoglobin A1c Lactic Acid Calcium Phosphorus Magnesium Alkaline Phosphatase C-Reactive Protein Total Protein Albumin Vancomycin Trough Crossmatch Allied health notes reviewed: nursing
[2021-05-15] MEDS: oxyCODONE /ACETAMINOPHEN 5-325MG TAB PO PRN (21:26)
[2021-05-15] MEDS: SENNOSIDES 8.6 MG TAB PO SCH (21:27)
[2021-05-15] MEDS ORDERED: DEXTROSE 50% IN WATER (25GM) 50 ML SYRINGE IV ONE (23:44)
[2021-05-15] MEDS ORDERED: D5W/0.45% NACL 1,000 ML IV SCH (23:45)
[2021-05-16] MEDS: FREE WATER PO SCH ×5 (00:02→21:35)
[2021-05-16] MEDS: INSULIN LISPRO 100 UNIT/ML SUB-Q SCH ×4 (00:03→17:37)
[2021-05-16] MEDS: METOCLOPRAMIDE 10 MG/10 ML ORAL LIQD FEEDTUBE SCH ×4 (07:30→21:34)
[2021-05-16] MEDS: INSULIN NPH/REGULAR 70/30 INJ SUB-Q SCH ×2 (08:00→17:36)
[2021-05-16] MEDS ORDERED: LIDOCAINE MPF (2%) 20 MG/1 ML VIAL 5 ML ONE (08:28)
[2021-05-16] MEDS ORDERED: propofoL 200 MG/20 ML VIAL IV ONE (08:28)
[2021-05-16] MEDS ORDERED: ALBUMIN HUMAN 5% (12.5 GM/250 ML) INJ IV ONE (08:40)
[2021-05-16] MEDS ORDERED: SODIUM CHLORIDE 0.9% 1000 ML 1,000 ML IV SCH (09:00)
--- NOTE | 2021-05-16 09:11 | Operative Report ---
Operative Report Operative Report: DOS: 05/16/21 SURGEON: Raghav Bain MD EGD with biopsy REPORT PREOPERATIVE DIAGNOSIS and POSTOPERATIVE DIAGNOSIS: Anemia due to chronic gastrointestinal blood loss ESTIMATED BLOOD LOSS: Minimal DESCRIPTION OF PROCEDURE: A high-resolution EGD scope was passed through the oropharynx, esophagus, stomach, and second portion of duodenum. The scope was carefully withdrawn. Retroflexion was performed in the stomach. At the end of the procedure, the scope was cleaned using normal technique. Vital signs monit ored continuously throughout. SEDATION: Provided by [facility]. COMPLICATIONS: None. FINDINGS: * No gross lesions entire examined duodenum * Moderate gastritis with erythema nodularity and focal erosions scattered throughout the stomach. No active bleeding. No heme in the stomach. Biopsies were taken to rule out H. Pylori infection. A total of 5 biopsies were taken, 2 from the antrum, 1 from the incisura, 2 from the body. * Z-line irregular at 43 cm from incisors * Mild LA grade a reflux esophagitis * NG tube coursing down the esophagus terminating just distal to the GE junction RECOMMENDATIONS: * Follow-up biopsy results * Advance NG tube 5 to 10 cm * I am adding on a PPI for the gastritis, however the appearance not consistent with degree of inflammation and ulceration required for requiring recurrent blood transfusions, therefore patient still needs colonoscopy * Patient with thick brown liquid stool on rectal exam today so colonoscopy was aborted, will maintain patient on clears and reprep tonight for colonoscopy tomorrow
--- NOTE | 2021-05-16 10:09 | Progress Note ---
Assessment and Plan Assessment and plan: This is a 51-year-old female with DM, noncompliance, obesity, arthritis and right knee surgery admitted for DKA, oropharyngeal dysphagia on tube feeding Speech therapist following, patient has septic arthritis and severe sepsis on long-term antibiotics Rocephin total 6 weeks., Anemia with 6.8 hemoglobin, received 1 unit PRBC yesterday, this morning hemoglobin 6.8, will recheck Hb and transfuse additional PRBC if needed -Anemia; Hb 6.8-6.9 Received 1 unit PRBC yesterday 05/05/2021 This morning Hb 6.9, transfuse additional 1 unit PRBC today Check stool for occult blood, monitor H&H 05/11 h/h--7.0/22.1 --Oropharyngeal dysphagia; Patient is on tube feeding till recently Now able to eat Patient could not be discharged before because of dysphagia and tube feeding Patient to be placed --Septic arthritis; knee; Ortho is planning knee/synovial debridement 04/30/2021;s/p arthrocentesis 05/03/2021 s/p Incision and drainage followed by arthroscopic exam of the right knee Continue antibiotics per ID total 6 weeks -- Sepsis, group B Streptococcus bacteremia, h/o right septic arthritis -Infectious disease consulted, appreciate recommendations -ABX therapy per ID: Ceftriaxone 2 g every 24 hours -Right knee x-ray shows large joint effusion s/p arthrocentesis Positive synovial fluid cultures, ID recommended total 6 weeks of Rocephin --Acute metabolic encephalopathy (improved significantly) Patient is more alert and awake, supportive care -Echocardiogram shows mildly dilated right heart chamber, mild to moderate TR, moderate pulmonary hypertension, RVSP 50-55, LVEF 45-50 --Respiratory: Acute hypoxic respiratory failure Nasal cannula oxygen, intermittent BiPAP Home O2 evaluation --Severe protein calorie malnutrition --Hypoalbuminemia, albumin 1.7 Dietitian/lead atg developer following Continue tube feeding, nutrition supplements Supportive care -- Hypernatremia (resolved) Closely monitor electrolytes --Leukocytosis/trending down Secondary to sepsis, continue antibiotics and supportive care Closely monitor --S/p DKA, h/o uncontrolled DM/present on admission -Hemoglobin A1c 18.3 Blood sugars moderate control -Avoid hypoglycemia Accu-Chek sliding scale coverage tube feeding Glucerna --DVT prophylaxis Subcu Lovenox --Full CODE STATUS Discharge planning issues Patient is able to eat Physical therapy Placement issues are Outpatient antibiotic therapy To discuss with case management Subjective Date of service: 05/12/21 Principal diagnosis: HAGMA; DKA; AMS; Obesity; Osteoarthritis; Hypercalcemia Interval history: Brief history and daily hospital course This is a 51-year-old female with DM, OA, medication noncompliance, obesity who presented to emergency department on 04/23 with complaints of weakness, elevated blood glucose levels, nausea, polydipsia, polyuria and diminished oral intake over the past week with worsening symptoms over the past 2 days. Patient acknowledges noncompliance with oral antihyperglycemic therapy. Patient was s een and evaluated in the emergency department and found to have lab work consistent with diabetic ketoacidosis, metabolic encephalopathy, metabolic acidosis and volume depletion. Patient was admitted to the hospital service to the ICU initiated DKA protocol with CCM consult. 04/24/21- Patient remains on DKA protocol. Still very lethargic this am, following simple commands. Rt. knee wound and swelling noted, and nursing staff also reported thick, white vaginal discharge. C/f sepsis, blood culture ordered, this am UA noted. Will start patient on PO difflucan for possible yeast infection, pending culture data. Anion GAP is still 18 this am, will continue DKA protocol for now. Continue to monitor electrolytes, serial BMP ordered. 04/25/21- Patient appears to be in distress this am, now on 3L NC. Lactic acidosis worsen overnight, X1L LR bolus adminstered. Ordered placed for stat ABGs. Blood culture growing GPC 3/4 bottles, patient remains afebrile with no leukocytosis. IV abx was escalated, ID consulted. Ortho consult is still pending, order placed for XR of the Rt. knee. Given patient worsen condition and high anio, gap, will continue insulin gtt for now. Low K and mg was repleted. C ontinue serial BMP,mg, and phosp 04/26/21- Patient appears more alert and awake this am, talkative, and following commands. Remains on DKA protocol, gap is closedX2, will transition patient to SSI and basal insulin and initiate enteral nutrition. Patient remains afebrile overnight, continue IV Abx per ID. 04/27/21- TASHA overnight. Patient mentation continue to improve. Worsening hyperglycemia, patient is tolerating TF. 70/30 added BID and SSI was adjusted to high dose Q4hrs. D/W CCM patient is stable for transfer to [facility] 04/28/21- Patient continue to improve. Remains drowsy this am, however, easily arousable. Now on 4L NC, still requiring Q4hrs NT suction due to increased secretions and weak cough. Continue to wean O2 supplement as tolerated, F/U CXR in the am. Continue IV Abx per ID. 04/29: Patient is awake and alert with strong cough and able to clear own airway. Ortho consult for right knee aspiration pending. 04/30: No acute events reported overnight, patient will be transferred to the floor. MR of right knee ordered. 05/01; patient had arthrocentesis 05/02; ID recommended total 6 weeks of Rocephin, case management to assist with antibiotics 05/02; patient is febrile, sepsis and positive cultures, currently on Rocephin, ID following 05/03; patient remains on tube feeding, speech therapist has not cleared for oral nutrition, aspiration risk Septic arthritis awaiting synovial debridement knee joint 05/04; blood sugars are uncontrolled Lantus insulin was stopped due to surgical procedure yesterday, Resumed Novolin 70/30, closely monitor and adjust the dose as needed 05/05; patient received 1 unit of PRBC yesterday, a.m. hemoglobin remains 6.8 after transfusion, recheck H&H, transfuse additional PRBC Patient remains on tube feedings, speech therapy following, on long-term antibiotics for her septic knee total 6 weeks 05/06/2021 Patient remains on tube feedings Speech therapy 6 weeks of antibiotics for septic arthritis If patient can swallow and tube feedings are discontinued--- patient can have IV antibiotics as outpatient Not ready for discharge 05/07: Patient seen and examined, remains quit ill, NG tube still in place hemoglobin is still 6.9 despite second unit transfusion done. Hard sure where this is coming from unsure why the patient is not able to eat. Will obtain MRI of the head to further evaluate and also obtain stool for occult blood to further elicit. In the meantime this is a painless delay in discharge and once that is rectified placement is already being pursued by case management. Dressing in the knee is in place. 05/08/20[address] still in [address] 05/09/20[address] NG tube still in place 05/10/2021 Patient more alert and oriented NG tube still in place 05/11/2021 Patient is more alert and oriented NG tube is taken out 05/12/2021 Patient is able to eat Patient is alert and oriented Patient is ready for discharge and outpatient IV antibiotics for 4 to 5 weeks. 05/13/21 Anemia with Hgb 6.8. Transfuse 1 Unit PRBC 05/14/21 Patient transfused 1 Unit, now Hgb 7.7 05/15/21 Patient started on Pureed diet yesterday. Still has tube feed going Hgb 7.2 Will check stool occult blood Consult GI for anemia with hgb 6s. Stool occult blood neg 05/16/21 EGD done today:gastritis,erythema Colonoscopy postponed to tomorrow Labs pending today History Interval history: EGD done today Speech recommended start Pureed diet Hospitalist Physical - Physical exam Narrative exam: Gen: Not in acute distress, morbidly obese, HEENT:Normocephalic,atraumatic,has NG tube Neck:supple, No JVD Lungs:clear to auscultation bilaterally, no crackles, no wheeze Heart: S1 and S2 reg, no murmurs, rubs or gallop Abd:soft, non tender, non distended, normal bowel sounds Ext:No edema, no clubbing, no cyanosis, PICC line right Neuro:Awake,alert - Constitutional Vitals: Temp Pulse Resp BP Pulse Ox 98.2 F 108 H 20 189/106 98 05/16/21 08:18 05/16/21 08:18 05/16/21 08:18 05/16/21 08:18 05/16/21 08:18 General appearance: Present: no acute distress HEART Score - HEART Score Troponin: Troponin T < 0.010 ng/mL (0.00-0.029) 04/23/21 10:33 Results - Labs CBC & Chem 7: 05/15/21 04:58 05/14/21 05:00 Labs: Laboratory Last Values WBC 12.1 K/mm3 (4.5-11.0) H 05/15/21 04:58 RBC 2.80 M/mm3 (3.65-5.03) L 05/15/21 04:58 Hgb 7.2 gm/dl (10.1-14.3) L 05/15/21 04:58 Hct 23.4 % (30.3-42.9) L 05/15/21 04:58 MCV 84 fl (79-97) 05/15/21 04:58 MCH 26 pg (28-32) L 05/15/21 04:58 MCHC 31 % (30-34) 05/15/21 04:58 RDW 16.1 % (13.2-15.2) H 05/15/21 04:58 Plt Count 537 K/mm3 (140-440) H 05/15/21 04:58 Lymph % (Auto) 22.8 % (13.4-35.0) 05/07/21 Unknown [place] % (Auto) 4.4 % (0.0-7.3) 05/07/21 Unknown Eos % (Auto) 1.2 % (0.0-4.3) 05/07/21 Unknown Baso % (Auto) 0.9 % (0.0-1.8) 05/07/21 Unknown Lymph # (Auto) 1.7 K/mm3 (1.2-5.4) 05/07/21 Unknown [place] # (Auto) 0.3 K/mm3 (0.0-0.8) 05/07/21 Unknown Eos # (Auto) 0.1 K/mm3 (0.0-0.4) 05/07/21 Unknown Baso # (Auto) 0.1 K/mm3 (0.0-0.1) 05/07/21 Unknown Add Manual Diff Complete 04/25/21 08:10 Total Counted 100 04/25/21 08:10 Seg Neutrophils % 70.7 % (40.0-70.0) H 05/07/21 Unknown Seg Neuts % (Manual) 33.0 % (40.0-70.0) L 04/25/21 08:10 Band Neutrophils % 23.0 % 04/25/21 08:10 Lymphocytes % (Manual) 19.0 % (13.4-35.0) 04/25/21 08:10 Reactive Lymphs % (Man) 1.0 % 04/25/21 08:10 Monocytes % (Manual) 1.0 % (0.0-7.3) 04/25/21 08:10 Eosinophils % (Manual) 1.0 % (0.0-4.3) 04/25/21 08:10 Metamyelocytes % 3.0 % 04/23/21 10:33 Myelocytes % 22.0 % 04/25/21 08:10 Nucleated RBC % Not Reportable 04/25/21 08:10 Seg Neutrophils # 5.4 K/mm3 (1.8-7.7) 05/07/21 Unknown Seg Neutrophils # Man 1.9 K/mm3 (1.8-7.7) 04/25/21 08:10 Band Neutrophils # 1.3 K/mm3 04/25/21 08:10 Lymphocytes # (Manual) 1.1 K/mm3 (1.2-5.4) L 04/25/21 08:10 Abs React Lymphs (Man) 0.1 K/mm3 04/25/21 08:10 Monocytes # (Manual) 0.1 K/mm3 (0.0-0.8) 04/25/21 08:10 Eosinophils # (Manual) 0.1 K/mm3 (0.0-0.4) 04/25/21 08:10 Basophils # (Manual) 0.0 K/mm3 (0.0-0.1) 04/25/21 08:10 Metamyelocytes # 0.0 K/mm3 04/25/21 08:10 Myelocytes # 1.3 K/mm3 04/25/21 08:10 Promyelocytes # 0.0 K/mm3 04/25/21 08:10 Blast Cells # 0.0 K/mm3 04/25/21 08:10 WBC Morphology Not Reportable 04/25/21 08:10 Hypersegmented Neuts Not Reportable 04/25/21 08:10 Hyposegmented Neuts Not Reportable 04/25/21 08:10 Hypogranular Neuts Not Reportable 04/25/21 08:10 Smudge Cells Not Reportable 04/25/21 08:10 Toxic Granulation Not Reportable 04/25/21 08:10 Toxic Vacuolation Not Reportable 04/25/21 08:10 Dohle Bodies Not Reportable 04/25/21 08:10 Pelger-Huet Anomaly Not Reportable 04/25/21 08:10 Thierry Rods Not Reportable 04/25/21 08:10 Platelet Estimate Consistent w auto 04/25/21 08:10 Clumped Platelets Not Reportable 04/25/21 08:10 Plt Clumps, EDTA Not Reportable 04/25/21 08:10 Large Platelets Not Reportable 04/25/21 08:10 Giant Platelets Not Reportable 04/25/21 08:10 Platelet Satelliting Not Reportable 04/25/21 08:10 Plt Morphology Comment Not Reportable 04/25/21 08:10 RBC Morphology Not Reportable 04/25/21 08:10 Dimorphic RBCs Not Reportable 04/25/21 08:10 Polychromasia Not Reportable 04/25/21 08:10 Hypochromasia 1+ 04/25/21 08:10 Poikilocytosis Not Reportable 04/25/21 08:10 Anisocytosis Not Reportable 04/25/21 08:10 Microcytosis Not Reportable 04/25/21 08:10 Macrocytosis Not Reportable 04/25/21 08:10 Spherocytes Not Reportable 04/25/21 08:10 Pappenheimer Bodies Not Reportable 04/25/21 08:10 Sickle Cells Not Reportable 04/25/21 08:10 Target Cells Not Reportable 04/25/21 08:10 Tear Drop Cells Not Reportable 04/25/21 08:10 Ovalocytes Not Reportable 04/25/21 08:10 Helmet Cells Not Reportable 04/25/21 08:10 [place] Bodies Not Reportable 04/25/21 08:10 [place] Rings Not Reportable 04/25/21 08:10 [place] Cells Not Reportable 04/25/21 08:10 Bite Cells Not Reportable 04/25/21 08:10 Crenated Cell Not Reportable 04/25/21 08:10 Elliptocytes Not Reportable 04/25/21 08:10 Acanthocytes (Spur) Not Reportable 04/25/21 08:10 Rouleaux Not Reportable 04/25/21 08:10 Hemoglobin C Crystals Not Reportable 04/25/21 08:10 Schistocytes Not Reportable 04/25/21 08:10 Malaria parasites Not Reportable 04/25/21 08:10 Juan Bodies Not Reportable 04/25/21 08:10 Hem Pathologist Commnt No 04/25/21 08:10 PT 15.8 Sec. (12.2-14.9) H 05/15/21 13:04 INR 1.14 (0.87-1.13) H 05/15/21 13:04 ABG pH 7.426 pH Units (7.350-7.450) 04/25/21 11:20 ABG pCO2 25.3 mm Hg 04/25/21 11:20 ABG pO2 73.2 mm Hg (80.0-90.0) L 04/25/21 11:20 ABG HCO3 16.2 mmol/L (20.0-26.0) L 04/25/21 11:20 ABG O2 Saturation 96.9 % (95.0-99.0) 04/25/21 11:20 ABG O2 Content 11.6 (0.0-44) 04/25/21 11:20 ABG Base Excess -7.1 mmol/L (-2.0-3.0) L 04/25/21 11:20 ABG Hemoglobin 8.7 gm/dl (12.0-16.0) L 04/25/21 11:20 ABG Carboxyhemoglobin 1.6 % (0.0-5.0) 04/25/21 11:20 ABG Methemoglobin 0.6 % (0.0-1.5) 04/25/21 11:20 VBG pH 7.180 (7.320-7.420) L* 04/23/21 10:33 Oxyhemoglobin 94.8 % (95.0-99.0) L 04/25/21 11:20 FiO2 28 % 04/25/21 11:20 Sodium 135 mmol/L (137-145) L 05/14/21 05:00 Potassium 4.1 mmol/L (3.6-5.0) 05/14/21 05:00 Chloride 98.4 mmol/L (98-107) 05/14/21 05:00 Carbon Dioxide 25 mmol/L (22-30) 05/14/21 05:00 Anion Gap 16 mmol/L 05/14/21 05:00 BUN 24 mg/dL (7-17) H 05/14/21 05:00 Creatinine 0.9 mg/dL (0.6-1.2) 05/14/21 05:00 Estimated GFR > 60 ml/min 05/14/21 05:00 BUN/Creatinine Ratio 27 % 05/14/21 05:00 Glucose 134 mg/dL (65-100) H 05/14/21 05:00 POC Glucose 144 mg/dL (70-105) H 05/16/21 05:49 Hemoglobin A1c 18.3 % (4-6) H 04/24/21 04:16 Lactic Acid 1.70 mmol/L (0.7-2.0) 04/26/21 05:02 Uric Acid 7.5 mg/dL (3.5-7.6) 04/24/21 12:14 Calcium 8.0 mg/dL (8.4-10.2) L 05/14/21 05:00 Phosphorus 4.50 mg/dL (2.5-4.5) 04/30/21 04:41 Magnesium 2.10 mg/dL (1.7-2.3) 05/03/21 07:05 Total Bilirubin 0.50 mg/dL (0.1-1.2) 04/30/21 04:41 AST 12 units/L (5-40) 04/30/21 04:41 ALT 7 units/L (7-56) 04/30/21 04:41 Alkaline Phosphatase 171 units/L (35-129) H 04/30/21 04:41 Ammonia 37.0 umol/L (25-60) 04/23/21 10:33 Total Creatine Kinase 83 units/L (30-135) 04/23/21 10:33 Troponin T < 0.010 ng/mL (0.00-0.029) 04/23/21 10:33 C-Reactive Protein 24.30 mg/dL (0.00-1.30) H 04/24/21 18:24 Total Protein 6.1 g/dL (6.3-8.2) L 04/30/21 04:41 Albumin 1.4 g/dL (3.9-5) L 04/30/21 04:41 Albumin/Globulin Ratio 0.3 % 04/30/21 04:41 Procalcitonin 21.10 ng/mL (<0.15) 04/24/21 12:14 TSH 1.400 mlU/mL (0.270-4.200) 04/23/21 10:33 Urine Color Katie (Yellow) 04/27/21 16:16 Urine Turbidity Cloudy (Clear) 04/27/21 16:16 Urine pH 5.0 (5.0-7.0) 04/27/21 16:16 Ur Specific [place] 1.014 (1.003-1.030) 04/27/21 16:16 Urine Protein <15 mg/dl mg/dL (Negative) 04/27/21 16:16 Urine Glucose (UA) >=500 mg/dL (Negative) 04/27/21 16:16 Urine Ketones Neg mg/dL (Negative) 04/27/21 16:16 Urine Blood Neg (Negative) 04/27/21 16:16 Urine Nitrite Neg (Negative) 04/27/21 16:16 Urine Bilirubin Neg (Negative) 04/27/21 16:16 Urine Urobilinogen 2.0 mg/dL (<2.0) 04/27/21 16:16 Ur Leukocyte Esterase Neg (Negative) 04/27/21 16:16 Urine WBC (Auto) 1.0 /HPF (0.0-6.0) 04/27/21 16:16 Urine RBC (Auto) 1.0 /HPF (0.0-6.0) 04/27/21 16:16 U Epithel Cells (Auto) < 1.0 /HPF (0-13.0) 04/24/21 08:40 Urine Bacteria (Auto) 1+ /HPF (Negative) 04/27/21 16:16 Amorphous Crystals Few 04/27/21 16:16 Urine Yeast (Budding) 3+ /HPF 04/27/21 16:16 Vancomycin Trough 38.2 ug/mL (5.0-20.0) H 04/26/21 19:27 Coronavirus (PCR) Negative (Negative) 04/25/21 Unknown Blood Type A POSITIVE 05/13/21 13:20 Antibody Screen Negative 05/13/21 13:20 Crossmatch See Detail 05/13/21 13:20 Sanchez/IV: Voiding Method Indwelling Catheter Active Medications - Current Medications Current Medications: Generic Name Dose Route Start Last Admin Trade Name Freq PRN Reason Stop Dose Admin Acetaminophen 650 mg 04/23/21 11:54 05/13/21 17:29 Acetaminophen 325 Mg Tab PO 650 mg Q6H PRN Administration Pain MILD(1-3)/Fever >100.5/SMITH Albuterol 2.5 mg 05/02/21 12:56 05/07/21 04:22 Albuterol 2.5 Mg/3 Ml Nebu IH 2.5 mg Q4HRT PRN Administration Shortness Of Breath Lipase/Protease/Amylase 1 each 05/06/21 16:05 Lipase 10,500/Protease 25,000/Amylase 43,750 (Units) Dr Rodriguez FEEDTUBE PRN PRN For Clogged Feeding Tube Dextrose 50 ml 04/26/21 14:00 05/15/21 16:00 Dextrose 50% In Water (25gm) 50 Ml Syringe IV 50 ml Q30MIN PRN Administration Hypoglycemia Protocol Famotidine 20 mg 04/29/21 10:00 05/15/21 09:18 Famotidine 20 Mg Tab FEEDTUBE 20 mg DAILY AMIRA Administration Hydromorphone HCl 0.5 mg 04/23/21 11:54 05/12/21 01:19 Hydromorphone 1 Mg/1 Ml Inj IV 0.5 mg Q23H PRN Administration Pain , Severe (7-10) Cefazolin Sodium 2 gm/ Sodium 100 mls @ 200 mls/hr 05/02/21 14:00 05/16/21 02:18 Chloride IV 06/14/21 20:29 200 mls/hr Q6H AMIRA Administration Protocol Sodium Chloride 1,000 mls @ 50 mls/hr 05/16/21 09:00 Nacl 0.9% 1000 Ml IV DIRECT AMIRA Insulin Human Isoph/Insulin Regular 10 unit 05/16/21 08:00 Insulin Nph/Regular 70/30 Inj SUB-Q BIDDIAB AMIRA Insulin Human Lispro 0 unit 04/29/21 12:00 05/16/21 05:43 Insulin Lispro 100 Unit/Ml SUB-Q Not Given Q6HR AMIRA Protocol Lansoprazole 30 mg 05/16/21 10:00 Lansoprazole 30 Mg Solutab FEEDTUBE QDAY AMIRA Metoclopramide HCl 5 mg 05/08/21 08:00 05/15/21 21:26 Metoclopramide 10 Mg/10 Ml Oral Liqd FEEDTUBE 5 mg ACHS AMIRA Administration Morphine Sulfate 2 mg 05/03/21 18:59 05/15/21 13:43 Morphine 2 Mg/1 Ml Inj IV 2 mg Q4H PRN Administration Pain, Moderate (4-6) Morphine Sulfate 4 mg 05/03/21 18:59 Morphine 4 Mg/1 Ml Inj IV Q4H PRN Pain , Severe (7-10) Oxycodone/Acetaminophen 1 tab 04/23/21 11:54 05/15/21 21:26 Oxycodone /Acetaminophen 5-325mg Tab PO 1 tab Q16H PRN Administration Pain, Moderate (4-6) Polyethylene Glycol/Electrolytes 4,000 ml 05/16/21 18:00 Polyethylene Glycol/Elect Soln 4000 Ml NGTUBE 05/16/21 18:01 ONCE ONE Senna 17.2 mg 04/25/21 22:00 05/15/21 21:27 Sennosides 8.6 Mg Tab PO 17.2 mg QHS AMIRA Administration Simple Syrup 15 ml 05/06/21 16:05 Simple Syrup 15 Ml FEEDTUBE PRN PRN Hypoglycemia Simple Syrup 30 ml 05/06/21 16:05 Simple Syrup 15 Ml FEEDTUBE PRN PRN Hypoglycemia Sodium Bicarbonate 325 mg 05/06/21 16:05 Sodium Bicarbonate 325 Mg Tab FEEDTUBE PRN PRN For Clogged Feeding Tube Sodium Chloride 10 ml 04/23/21 22:00 05/15/21 21:28 Sodium Chloride 0.9% 10 Ml Flush Syringe IV 10 ml BID AMIRA Administration Sodium Chloride 10 ml 04/23/21 11:54 04/24/21 11:15 Sodium Chloride 0.9% 10 Ml Flush Syringe IV 10 ml PRN PRN Administration LINE FLUSH Nutrition/Malnutrition Assess - Dietary Evaluation Nutrition/Malnutrition Findings: Nutrition Notes Start: 04/26/21 09:53 Freq: Status: Active Protocol: Document 05/13/21 12:20 JAIMIE (Rec: 05/13/21 12:38 JAIMIE [id number]) Nutrition Notes Current Diet TF-Vital AF 1.2 Daniel @ 65 ml/hr (since D 05/06). Height 5 ft 8 in Weight 158.6 kg [place] Body Weight (kg) 63.63 BMI 53.1 Weight change and time frame No body weight change reported . Weight Status Morbidly Obese Subjective/Other Information RD consult for routine F/U on TF tolerance. No body weight change reported . TF well tolerated, continue as is. Percent of energy/protein needs met: Prescribed TF-Vital AF 1.2 Daniel @ 65 ml/hr provides for energy/protein needs (1,804 Kcal/77 g) 107% Kcal; 84% AA, during LOS. Nutrition Intervention Nutrition Support: Continue Vital AF 1.2 @ 65 ml/ hr with 100 ml water flush Q 4h. Kcal 1,860 Protein (gm) 116 Carbohydrates (gm) 171 Fat (gm) 84 Fluid (mL) 1,257 Fiber (gm) 8 % RDI: 107% Kcal; 84% AA. Goal #1 Provide at least 75% of energy /protein needs through Enteral Feeding during LOS. Goal #2 Maintain body weight within +/ -3% of admission body weight during LOS. Goal #3 Reach and maintain acceptable chemistry lab values during LOS. Follow-Up By: 05/20/21 Additional Comments Continue monitoring TF tolerance, Hydration, and BM.
[2021-05-16 10:38] LABS: Hematocrit 25.8 % (30.3-42.9); Hemoglobin 7.6 gm/dl (10.1-14.3); Mean Corpuscular HGB Conc 30 % (30-34); Mean Corpuscular Volume 85 fl (79-97); Platelet Count 544 K/mm3 (140-440); Red Blood Count 3.03 M/mm3 (3.65-5.03); Red Cell Distribution Width 16.5 % (13.2-15.2)
--- NOTE | 2021-05-16 10:40 | Progress Note ---
Assessment and Plan Acute metabolic acidosis Diabetic ketoacidosis Acute toxic metabolic encephalopathy Obesity Osteoarthritis Hypercalcemia - G.I. evaluation ongoing; for colonoscopy in am - continue care as below otherwise; - prn NT suction at this point - continue aspiration precautions (HOB > 40 degrees) - continue accuchecks with glycemic control per SSI for target blood glucose of < 180 mg/dL; avoid hypoglycemia - antiinfective's per ID team recommendations (Unasyn) - wean supplemental oxygen for target O2 sat's > 90% acutely - prn bronchodilators with pulmonary hygiene per RT - avoid nephrotoxins, renally dose all medications - avoid benzodiazepine's, reduce the possibility of delirium - prn analgesia per pain score - Maintenance of sleep-wake cycle, avoid delirium - G.I. & VTE prophylaxis - PT/OT/ROM exercises - continue mobility protocols for pressure ulcer prophylaxis - Monitor hemodynamics closely - continue other care per attending / other consultants - discharge planning ongoing concurrently .... Re-evaluate in am & prn Subjective Date of service: 05/16/21 Principal diagnosis: HAGMA; DKA; AMS; Obesity; Osteoarthritis; Hypercalcemia Interval history: Patient is seen today for: Acute metabolic acidosis; Diabetic ketoacidosis; Acute toxic metabolic encephalopathy; Obesity; Osteoarthritis; Hypercalcemia Seen and examined at bedside; 24hour events reviewed; nursing and respiratory care staff consulted; no adverse overnight events reported to me; resting peacefully in bed; s/p EGD with biopsies; denies SOB; No N/V/F/C Objective Vital Signs - 12hr 05/16/21 05/16/21 05:54 08:18 Temperature 98.1 F 98.2 F Pulse Rate 99 H 108 H Respiratory 20 20 Rate Blood Pressure 154/79 189/106 O2 Sat by Pulse 98 98 Oximetry Constitutional: no acute distress, alert Eyes: non-icteric ENT: oropharynx moist Neck: supple, no lymphadenopathy, no JVD Effort: normal Ascultation: Bilateral: clear, diminished breath sounds Percussion: Bilateral: not dull Cardiovascular: regular rate and rhythm, other (S1,S2) Gastrointestinal: hypoactive bowel sounds, soft, non-tender, non-distended (protuberant) Integumentary: rash (perineal) Extremities: no cyanosis, no edema, pulses normal, no ischemia or petechiae, other (Right knee surgery.) Neurologic: normal mental status, non-focal exam, pupils equal and round, other Psychiatric: mood appropriate, affect normal CBC and BMP: 05/16/21 10:09 05/16/21 10:09 ABG, PT/INR, D-dimer: ABG ABG pH 7.426 pH Units (7.350-7.450) 04/25/21 11:20 ABG pCO2 25.3 mm Hg 04/25/21 11:20 ABG pO2 73.2 mm Hg (80.0-90.0) L 04/25/21 11:20 ABG O2 Saturation 96.9 % (95.0-99.0) 04/25/21 11:20 PT/INR, D-dimer PT 15.8 Sec. (12.2-14.9) H 05/15/21 13:04 INR 1.14 (0.87-1.13) H 05/15/21 13:04 Abnormal lab findings: Abnormal Labs 04/23/21 04/23/21 04/23/21 10:33 10:33 10:33 WBC RBC Hgb Hct MCV MCH 26 L RDW Plt Count Lymph % (Auto) Seg Neutrophils % Seg Neuts % (Manual) Lymphocytes % (Manual) 7.0 L Nucleated RBC % 2.0 H Seg Neutrophils # Lymphocytes # (Manual) 0.5 L PT INR ABG pO2 ABG HCO3 ABG Base Excess ABG Hemoglobin VBG pH 7.180 L* Oxyhemoglobin Sodium 122 L Potassium 3.0 L Chloride 84.8 L Carbon Dioxide 6 L* BUN 49 H Creatinine 1.4 H Glucose 775 H* POC Glucose Hemoglobin A1c Lactic Acid Calcium 12.2 H* Phosphorus Magnesium Alkaline Phosphatase 130 H C-Reactive Protein Total Protein Albumin 2.9 L Vancomycin Trough Crossmatch 04/23/21 04/23/21 04/23/21 10:40 12:44 14:01 WBC RBC Hgb Hct MCV MCH RDW Plt Count Lymph % (Auto) Seg Neutrophils % Seg Neuts % (Manual) Lymphocytes % (Manual) Nucleated RBC % Seg Neutrophils # Lymphocytes # (Manual) PT INR ABG pO2 ABG HCO3 ABG Base Excess ABG Hemoglobin VBG pH Oxyhemoglobin Sodium Potassium Chloride Carbon Dioxide BUN Creatinine Glucose POC Glucose > 600 H 550 H Hemoglobin A1c Lactic Acid Calcium Phosphorus 1.50 L Magnesium Alkaline Phosphatase C-Reactive Protein Total Protein Albumin Vancomycin Trough Crossmatch 04/23/21 04/23/21 04/23/21 14:01 14:04 14:56 WBC RBC Hgb Hct MCV MCH RDW Plt Count Lymph % (Auto) Seg Neutrophils % Seg Neuts % (Manual) Lymphocytes % (Manual) Nucleated RBC % Seg Neutrophils # Lymphocytes # (Manual) PT INR ABG pO2 ABG HCO3 ABG Base Excess ABG Hemoglobin VBG pH Oxyhemoglobin Sodium 125 L Potassium 3.0 L Chloride 89.2 L Carbon Dioxide 6 L* BUN 45 H Creatinine 1.3 H Glucose 594 H* POC Glucose 518 H 425 H Hemoglobin A1c Lactic Acid Calcium 10.9 H Phosphorus Magnesium Alkaline Phosphatase C-Reactive Protein Total Protein Albumin Vancomycin Trough Crossmatch 04/23/21 04/23/21 04/23/21 15:43 15:48 17:21 WBC RBC Hgb Hct MCV MCH RDW Plt Count Lymph % (Auto) Seg Neutrophils % Seg Neuts % (Manual) Lymphocytes % (Manual) Nucleated RBC % Seg Neutrophils # Lymphocytes # (Manual) PT INR ABG pO2 ABG HCO3 ABG Base Excess ABG Hemoglobin VBG pH Oxyhemoglobin Sodium 131 L Potassium 2.9 L* Chloride Carbon Dioxide 8 L* BUN 39 H Creatinine Glucose 434 H POC Glucose 410 H 407 H Hemoglobin A1c Lactic Acid Calcium 10.3 H Phosphorus Magnesium Alkaline Phosphatase C-Reactive Protein Total Protein Albumin Vancomycin Trough Crossmatch 04/23/21 04/23/21 04/23/21 18:07 19:13 19:54 WBC RBC Hgb Hct MCV MCH RDW Plt Count Lymph % (Auto) Seg Neutrophils % Seg Neuts % (Manual) Lymphocytes % (Manual) Nucleated RBC % Seg Neutrophils # Lymphocytes # (Manual) PT INR ABG pO2 ABG HCO3 ABG Base Excess ABG Hemoglobin VBG pH Oxyhemoglobin Sodium 131 L Potassium 3.1 L Chloride 95.9 L Carbon Dioxide 7 L* BUN 39 H Creatinine Glucose 391 H POC Glucose 428 H 350 H Hemoglobin A1c Lactic Acid Calcium 11.2 H Phosphorus Magnesium Alkaline Phosphatase C-Reactive Protein Total Protein Albumin Vancomycin Trough Crossmatch 04/23/21 04/23/21 04/23/21 19:54 20:12 20:59 WBC RBC Hgb Hct MCV MCH RDW Plt Count Lymph % (Auto) Seg Neutrophils % Seg Neuts % (Manual) Lymphocytes % (Manual) Nucleated RBC % Seg Neutrophils # Lymphocytes # (Manual) PT INR ABG pO2 ABG HCO3 ABG Base Excess ABG Hemoglobin VBG pH Oxyhemoglobin Sodium Potassium Chloride Carbon Dioxide BUN Creatinine Glucose POC Glucose 365 H 286 H Hemoglobin A1c Lactic Acid Calcium Phosphorus 1.10 L D Magnesium Alkaline Phosphatase C-Reactive Protein Total Protein Albumin Vancomycin Trough Crossmatch 04/23/21 04/23/21 04/23/21 22:05 22:23 22:59 WBC RBC Hgb Hct MCV MCH RDW Plt Count Lymph % (Auto) Seg Neutrophils % Seg Neuts % (Manual) Lymphocytes % (Manual) Nucleated RBC % Seg Neutrophils # Lymphocytes # (Manual) PT INR ABG pO2 ABG HCO3 ABG Base Excess ABG Hemoglobin VBG pH Oxyhemoglobin Sodium 135 L Potassium 3.2 L Chloride Carbon Dioxide 10 L BUN 35 H Creatinine Glucose 300 H POC Glucose 257 H 238 H Hemoglobin A1c Lactic Acid Calcium 11.6 H Phosphorus Magnesium Alkaline Phosphatase C-Reactive Protein Total Protein Albumin Vancomycin Trough Crossmatch 04/23/21 04/24/21 04/24/21 23:57 00:10 00:56 WBC RBC Hgb Hct MCV MCH RDW Plt Count Lymph % (Auto) Seg Neutrophils % Seg Neuts % (Manual) Lymphocytes % (Manual) Nucleated RBC % Seg Neutrophils # Lymphocytes # (Manual) PT INR ABG pO2 ABG HCO3 ABG Base Excess ABG Hemoglobin VBG pH Oxyhemoglobin Sodium Potassium 3.2 L Chloride Carbon Dioxide 13 L BUN 33 H Creatinine Glucose 267 H POC Glucose 223 H 254 H Hemoglobin A1c Lactic Acid Calcium 11.2 H Phosphorus 1.20 L Magnesium Alkaline Phosphatase C-Reactive Protein Total Protein Albumin Vancomycin Trough Crossmatch 04/24/21 04/24/21 04/24/21 01:58 02:58 03:57 WBC RBC Hgb Hct MCV MCH RDW Plt Count Lymph % (Auto) Seg Neutrophils % Seg Neuts % (Manual) Lymphocytes % (Manual) Nucleated RBC % Seg Neutrophils # Lymphocytes # (Manual) PT INR ABG pO2 ABG HCO3 ABG Base Excess ABG Hemoglobin VBG pH Oxyhemoglobin Sodium Potassium Chloride Carbon Dioxide BUN Creatinine Glucose POC Glucose 264 H 251 H 200 H Hemoglobin A1c Lactic Acid Calcium Phosphorus Magnesium Alkaline Phosphatase C-Reactive Protein Total Protein Albumin Vancomycin Trough Crossmatch 04/24/21 04/24/21 04/24/21 04:16 04:16 04:16 WBC RBC Hgb Hct MCV MCH 26 L RDW Plt Count Lymph % (Auto) Seg Neutrophils % Seg Neuts % (Manual) Lymphocytes % (Manual) Nucleated RBC % Seg Neutrophils # Lymphocytes # (Manual) PT INR ABG pO2 ABG HCO3 ABG Base Excess ABG Hemoglobin VBG pH Oxyhemoglobin Sodium Potassium Chloride 108.0 H Carbon Dioxide 13 L BUN 31 H Creatinine Glucose 243 H POC Glucose Hemoglobin A1c 18.3 H Lactic Acid Calcium 10.9 H Phosphorus 1.80 L D Magnesium Alkaline Phosphatase C-Reactive Protein Total Protein Albumin Vancomycin Trough Crossmatch 04/24/21 04/24/21 04/24/21 04:59 05:53 06:51 WBC RBC Hgb Hct MCV MCH RDW Plt Count Lymph % (Auto) Seg Neutrophils % Seg Neuts % (Manual) Lymphocytes % (Manual) Nucleated RBC % Seg Neutrophils # Lymphocytes # (Manual) PT INR ABG pO2 ABG HCO3 ABG Base Excess ABG Hemoglobin VBG pH Oxyhemoglobin Sodium Potassium Chloride Carbon Dioxide BUN Creatinine Glucose POC Glucose 208 H 213 H 161 H Hemoglobin A1c Lactic Acid Calcium Phosphorus Magnesium Alkaline Phosphatase C-Reactive Protein Total Protein Albumin Vancomycin Trough Crossmatch 04/24/21 04/24/21 04/24/21 07:58 09:21 10:06 WBC RBC Hgb Hct MCV MCH RDW Plt Count Lymph % (Auto) Seg Neutrophils % Seg Neuts % (Manual) Lymphocytes % (Manual) Nucleated RBC % Seg Neutrophils # Lymphocytes # (Manual) PT INR ABG pO2 ABG HCO3 ABG Base Excess ABG Hemoglobin VBG pH Oxyhemoglobin Sodium Potassium Chloride Carbon Dioxide BUN Creatinine Glucose POC Glucose 149 H 178 H 164 H Hemoglobin A1c Lactic Acid Calcium Phosphorus Magnesium Alkaline Phosphatase C-Reactive Protein Total Protein Albumin Vancomycin Trough Crossmatch 04/24/21 04/24/21 04/24/21 11:03 12:07 12:14 WBC RBC Hgb Hct MCV MCH RDW Plt Count Lymph % (Auto) Seg Neutrophils % Seg Neuts % (Manual) Lymphocytes % (Manual) Nucleated RBC % Seg Neutrophils # Lymphocytes # (Manual) PT INR ABG pO2 ABG HCO3 ABG Base Excess ABG Hemoglobin VBG pH Oxyhemoglobin Sodium Potassium 3.2 L Chloride 108.7 H Carbon Dioxide 16 L BUN 24 H Creatinine Glucose 160 H POC Glucose 157 H 142 H Hemoglobin A1c Lactic Acid Calcium 10.5 H Phosphorus 0.70 L* D Magnesium Alkaline Phosphatase C-Reactive Protein Total Protein Albumin Vancomycin Trough Crossmatch 04/24/21 04/24/21 04/24/21 12:14 13:02 14:00 WBC RBC Hgb Hct MCV MCH RDW Plt Count Lymph % (Auto) Seg Neutrophils % Seg Neuts % (Manual) Lymphocytes % (Manual) Nucleated RBC % Seg Neutrophils # Lymphocytes # (Manual) PT INR ABG pO2 ABG HCO3 ABG Base Excess ABG Hemoglobin VBG pH Oxyhemoglobin Sodium Potassium Chloride Carbon Dioxide BUN Creatinine Glucose POC Glucose 138 H 150 H Hemoglobin A1c Lactic Acid 2.50 H* Calcium Phosphorus Magnesium Alkaline Phosphatase C-Reactive Protein Total Protein Albumin Vancomycin Trough Crossmatch 04/24/21 04/24/21 04/24/21 15:14 16:07 17:11 WBC RBC Hgb Hct MCV MCH RDW Plt Count Lymph % (Auto) Seg Neutrophils % Seg Neuts % (Manual) Lymphocytes % (Manual) Nucleated RBC % Seg Neutrophils # Lymphocytes # (Manual) PT INR ABG pO2 ABG HCO3 ABG Base Excess ABG Hemoglobin VBG pH Oxyhemoglobin Sodium Potassium Chloride Carbon Dioxide BUN Creatinine Glucose POC Glucose 145 H 148 H 156 H Hemoglobin A1c Lactic Acid Calcium Phosphorus Magnesium Alkaline Phosphatase C-Reactive Protein Total Protein Albumin Vancomycin Trough Crossmatch 04/24/21 04/24/21 04/24/21 18:12 18:24 19:55 WBC RBC Hgb Hct MCV MCH RDW Plt Count Lymph % (Auto) Seg Neutrophils % Seg Neuts % (Manual) Lymphocytes % (Manual) Nucleated RBC % Seg Neutrophils # Lymphocytes # (Manual) PT INR ABG pO2 ABG HCO3 ABG Base Excess ABG Hemoglobin VBG pH Oxyhemoglobin Sodium Potassium Chloride 109.2 H Carbon Dioxide 15 L BUN 22 H Creatinine Glucose 159 H POC Glucose 153 H 176 H Hemoglobin A1c Lactic Acid Calcium Phosphorus 1.80 L D Magnesium Alkaline Phosphatase C-Reactive Protein 24.30 H Total Protein Albumin Vancomycin Trough Crossmatch 04/24/21 04/24/21 04/24/21 20:55 22:04 23:02 WBC RBC Hgb Hct MCV MCH RDW Plt Count Lymph % (Auto) Seg Neutrophils % Seg Neuts % (Manual) Lymphocytes % (Manual) Nucleated RBC % Seg Neutrophils # Lymphocytes # (Manual) PT INR ABG pO2 ABG HCO3 ABG Base Excess ABG Hemoglobin VBG pH Oxyhemoglobin Sodium Potassium Chloride Carbon Dioxide BUN Creatinine Glucose POC Glucose 146 H 169 H Hemoglobin A1c Lactic Acid 3.10 H* Calcium Phosphorus Magnesium Alkaline Phosphatase C-Reactive Protein Total Protein Albumin Vancomycin Trough Crossmatch 04/24/21 04/25/21 04/25/21 23:13 00:05 01:28 WBC RBC Hgb Hct MCV MCH RDW Plt Count Lymph % (Auto) Seg Neutrophils % Seg Neuts % (Manual) Lymphocytes % (Manual) Nucleated RBC % Seg Neutrophils # Lymphocytes # (Manual) PT INR ABG pO2 ABG HCO3 ABG Base Excess ABG Hemoglobin VBG pH Oxyhemoglobin Sodium Potassium Chloride Carbon Dioxide BUN Creatinine Glucose POC Glucose 144 H 150 H 142 H Hemoglobin A1c Lactic Acid Calcium Phosphorus Magnesium Alkaline Phosphatase C-Reactive Protein Total Protein Albumin Vancomycin Trough Crossmatch 04/25/21 04/25/21 04/25/21 02:03 03:07 04:17 WBC RBC Hgb Hct MCV MCH RDW Plt Count Lymph % (Auto) Seg Neutrophils % Seg Neuts % (Manual) Lymphocytes % (Manual) Nucleated RBC % Seg Neutrophils # Lymphocytes # (Manual) PT INR ABG pO2 ABG HCO3 ABG Base Excess ABG Hemoglobin VBG pH Oxyhemoglobin Sodium Potassium Chloride Carbon Dioxide BUN Creatinine Glucose POC Glucose 148 H 161 H 158 H Hemoglobin A1c Lactic Acid Calcium Phosphorus Magnesium Alkaline Phosphatase C-Reactive Protein Total Protein Albumin Vancomycin Trough Crossmatch 04/25/21 04/25/21 04/25/21 05:48 06:52 07:58 WBC RBC Hgb Hct MCV MCH RDW Plt Count Lymph % (Auto) Seg Neutrophils % Seg Neuts % (Manual) Lymphocytes % (Manual) Nucleated RBC % Seg Neutrophils # Lymphocytes # (Manual) PT INR ABG pO2 ABG HCO3 ABG Base Excess ABG Hemoglobin VBG pH Oxyhemoglobin Sodium Potassium Chloride Carbon Dioxide BUN Creatinine Glucose POC Glucose 136 H 137 H 143 H Hemoglobin A1c Lactic Acid Calcium Phosphorus Magnesium Alkaline Phosphatase C-Reactive Protein Total Protein Albumin Vancomycin Trough Crossmatch 04/25/21 04/25/21 04/25/21 08:10 08:10 08:10 WBC RBC Hgb 9.5 L Hct 28.8 L MCV MCH 26 L RDW Plt Count Lymph % (Auto) Seg Neutrophils % Seg Neuts % (Manual) 33.0 L Lymphocytes % (Manual) Nucleated RBC % Seg Neutrophils # Lymphocytes # (Manual) 1.1 L PT INR ABG pO2 ABG HCO3 ABG Base Excess ABG Hemoglobin VBG pH Oxyhemoglobin Sodium Potassium 3.3 L Chloride 109.0 H Carbon Dioxide 16 L BUN 23 H Creatinine Glucose 151 H POC Glucose Hemoglobin A1c Lactic Acid 2.10 H* Calcium Phosphorus 2.20 L D Magnesium 1.60 L Alkaline Phosphatase C-Reactive Protein Total Protein Albumin Vancomycin Trough Crossmatch 04/25/21 04/25/21 04/25/21 08:53 09:59 11:20 WBC RBC Hgb Hct MCV MCH RDW Plt Count Lymph % (Auto) Seg Neutrophils % Seg Neuts % (Manual) Lymphocytes % (Manual) Nucleated RBC % Seg Neutrophils # Lymphocytes # (Manual) PT INR ABG pO2 ABG HCO3 ABG Base Excess ABG Hemoglobin VBG pH Oxyhemoglobin Sodium Potassium Chloride Carbon Dioxide BUN Creatinine Glucose POC Glucose 132 H 141 H 141 H Hemoglobin A1c Lactic Acid Calcium Phosphorus Magnesium Alkaline Phosphatase C-Reactive Protein Total Protein Albumin Vancomycin Trough Crossmatch 04/25/21 04/25/21 04/25/21 11:20 12:04 12:26 WBC RBC Hgb Hct MCV MCH RDW Plt Count Lymph % (Auto) Seg Neutrophils % Seg Neuts % (Manual) Lymphocytes % (Manual) Nucleated RBC % Seg Neutrophils # Lymphocytes # (Manual) PT INR ABG pO2 73.2 L ABG HCO3 16.2 L ABG Base Excess -7.1 L ABG Hemoglobin 8.7 L VBG pH Oxyhemoglobin 94.8 L Sodium Potassium 3.4 L Chloride 109.5 H Carbon Dioxide 14 L BUN 21 H Creatinine Glucose 155 H POC Glucose 129 H Hemoglobin A1c Lactic Acid Calcium Phosphorus 1.90 L Magnesium 1.60 L Alkaline Phosphatase C-Reactive Protein Total Protein Albumin Vancomycin Trough Crossmatch 04/25/21 04/25/21 04/25/21 13:04 13:58 15:09 WBC RBC Hgb Hct MCV MCH RDW Plt Count Lymph % (Auto) Seg Neutrophils % Seg Neuts % (Manual) Lymphocytes % (Manual) Nucleated RBC % Seg Neutrophils # Lymphocytes # (Manual) PT INR ABG pO2 ABG HCO3 ABG Base Excess ABG Hemoglobin VBG pH Oxyhemoglobin Sodium Potassium Chloride Carbon Dioxide BUN Creatinine Glucose POC Glucose 135 H 140 H 134 H Hemoglobin A1c Lactic Acid Calcium Phosphorus Magnesium Alkaline Phosphatase C-Reactive Protein Total Protein Albumin Vancomycin Trough Crossmatch 04/25/21 04/25/21 04/25/21 16:00 18:56 18:58 WBC RBC Hgb Hct MCV MCH RDW Plt Count Lymph % (Auto) Seg Neutrophils % Seg Neuts % (Manual) Lymphocytes % (Manual) Nucleated RBC % Seg Neutrophils # Lymphocytes # (Manual) PT INR ABG pO2 ABG HCO3 ABG Base Excess ABG Hemoglobin VBG pH Oxyhemoglobin Sodium Potassium Chloride Carbon Dioxide BUN Creatinine Glucose POC Glucose 135 H 170 H Hemoglobin A1c Lactic Acid 2.10 H* Calcium Phosphorus Magnesium Alkaline Phosphatase C-Reactive Protein Total Protein Albumin Vancomycin Trough Crossmatch 04/25/21 04/25/21 04/25/21 18:58 19:52 20:53 WBC RBC Hgb Hct MCV MCH RDW Plt Count Lymph % (Auto) Seg Neutrophils % Seg Neuts % (Manual) Lymphocytes % (Manual) Nucleated RBC % Seg Neutrophils # Lymphocytes # (Manual) PT INR ABG pO2 ABG HCO3 ABG Base Excess ABG Hemoglobin VBG pH Oxyhemoglobin Sodium Potassium Chloride 110.1 H Carbon Dioxide 13 L BUN 23 H Creatinine Glucose 206 H POC Glucose 162 H 171 H Hemoglobin A1c Lactic Acid Calcium Phosphorus Magnesium 2.40 H Alkaline Phosphatase C-Reactive Protein Total Protein Albumin Vancomycin Trough Crossmatch 04/25/21 04/25/21 04/26/21 21:54 22:53 00:03 WBC RBC Hgb Hct MCV MCH RDW Plt Count Lymph % (Auto) Seg Neutrophils % Seg Neuts % (Manual) Lymphocytes % (Manual) Nucleated RBC % Seg Neutrophils # Lymphocytes # (Manual) PT INR ABG pO2 ABG HCO3 ABG Base Excess ABG Hemoglobin VBG pH Oxyhemoglobin Sodium Potassium Chloride Carbon Dioxide BUN Creatinine Glucose POC Glucose 139 H 140 H 129 H Hemoglobin A1c Lactic Acid Calcium Phosphorus Magnesium Alkaline Phosphatase C-Reactive Protein Total Protein Albumin Vancomycin Trough Crossmatch 04/26/21 04/26/21 04/26/21 00:38 01:00 01:56 WBC RBC Hgb Hct MCV MCH RDW Plt Count Lymph % (Auto) Seg Neutrophils % Seg Neuts % (Manual) Lymphocytes % (Manual) Nucleated RBC % Seg Neutrophils # Lymphocytes # (Manual) PT INR ABG pO2 ABG HCO3 ABG Base Excess ABG Hemoglobin VBG pH Oxyhemoglobin Sodium Potassium Chloride 112.6 H Carbon Dioxide 14 L BUN 22 H Creatinine Glucose 149 H POC Glucose 126 H 137 H Hemoglobin A1c Lactic Acid Calcium Phosphorus Magnesium 2.40 H Alkaline Phosphatase C-Reactive Protein Total Protein Albumin Vancomycin Trough Crossmatch 04/26/21 04/26/21 04/26/21 02:54 04:04 05:02 WBC RBC 3.44 L Hgb 8.9 L Hct 26.9 L MCV 78 L MCH 26 L RDW Plt Count Lymph % (Auto) Seg Neutrophils % Seg Neuts % (Manual) Lymphocytes % (Manual) Nucleated RBC % Seg Neutrophils # Lymphocytes # (Manual) PT INR ABG pO2 ABG HCO3 ABG Base Excess ABG Hemoglobin VBG pH Oxyhemoglobin Sodium Potassium Chloride Carbon Dioxide BUN Creatinine Glucose POC Glucose 132 H 130 H Hemoglobin A1c Lactic Acid Calcium Phosphorus Magnesium Alkaline Phosphatase C-Reactive Protein Total Protein Albumin Vancomycin Trough Crossmatch 04/26/21 04/26/21 04/26/21 05:02 05:03 06:06 WBC RBC Hgb Hct MCV MCH RDW Plt Count Lymph % (Auto) Seg Neutrophils % Seg Neuts % (Manual) Lymphocytes % (Manual) Nucleated RBC % Seg Neutrophils # Lymphocytes # (Manual) PT INR ABG pO2 ABG HCO3 ABG Base Excess ABG Hemoglobin VBG pH Oxyhemoglobin Sodium Potassium Chloride 114.8 H Carbon Dioxide 14 L BUN 22 H Creatinine Glucose 129 H POC Glucose 115 H 129 H Hemoglobin A1c Lactic Acid Calcium Phosphorus Magnesium Alkaline Phosphatase C-Reactive Protein Total Protein Albumin Vancomycin Trough Crossmatch 04/26/21 04/26/21 04/26/21 06:53 07:58 09:09 WBC RBC Hgb Hct MCV MCH RDW Plt Count Lymph % (Auto) Seg Neutrophils % Seg Neuts % (Manual) Lymphocytes % (Manual) Nucleated RBC % Seg Neutrophils # Lymphocytes # (Manual) PT INR ABG pO2 ABG HCO3 ABG Base Excess ABG Hemoglobin VBG pH Oxyhemoglobin Sodium Potassium Chloride Carbon Dioxide BUN Creatinine Glucose POC Glucose 121 H 124 H 125 H Hemoglobin A1c Lactic Acid Calcium Phosphorus Magnesium Alkaline Phosphatase C-Reactive Protein Total Protein Albumin Vancomycin Trough Crossmatch 04/26/21 04/26/21 04/26/21 10:05 10:52 12:00 WBC RBC Hgb Hct MCV MCH RDW Plt Count Lymph % (Auto) Seg Neutrophils % Seg Neuts % (Manual) Lymphocytes % (Manual) Nucleated RBC % Seg Neutrophils # Lymphocytes # (Manual) PT INR ABG pO2 ABG HCO3 ABG Base Excess ABG Hemoglobin VBG pH Oxyhemoglobin Sodium Potassium Chloride Carbon Dioxide BUN Creatinine Glucose POC Glucose 131 H 129 H 126 H Hemoglobin A1c Lactic Acid Calcium Phosphorus Magnesium Alkaline Phosphatase C-Reactive Protein Total Protein Albumin Vancomycin Trough Crossmatch 04/26/21 04/26/21 04/26/21 13:17 14:06 14:11 WBC RBC Hgb Hct MCV MCH RDW Plt Count Lymph % (Auto) Seg Neutrophils % Seg Neuts % (Manual) Lymphocytes % (Manual) Nucleated RBC % Seg Neutrophils # Lymphocytes # (Manual) PT INR ABG pO2 ABG HCO3 ABG Base Excess ABG Hemoglobin VBG pH Oxyhemoglobin Sodium Potassium 5.3 H D Chloride 112.2 H Carbon Dioxide 14 L BUN 22 H Creatinine Glucose 116 H POC Glucose 130 H 132 H Hemoglobin A1c Lactic Acid Calcium Phosphorus Magnesium 2.40 H Alkaline Phosphatase C-Reactive Protein Total Protein Albumin Vancomycin Trough Crossmatch 04/26/21 04/26/21 04/26/21 15:07 15:20 16:05 WBC RBC Hgb Hct MCV MCH RDW Plt Count Lymph % (Auto) Seg Neutrophils % Seg Neuts % (Manual) Lymphocytes % (Manual) Nucleated RBC % Seg Neutrophils # Lymphocytes # (Manual) PT INR ABG pO2 ABG HCO3 ABG Base Excess ABG Hemoglobin VBG pH Oxyhemoglobin Sodium Potassium Chloride 112.4 H Carbon Dioxide 13 L BUN 22 H Creatinine Glucose 143 H POC Glucose 130 H 156 H Hemoglobin A1c Lactic Acid Calcium Phosphorus Magnesium Alkaline Phosphatase C-Reactive Protein Total Protein Albumin Vancomycin Trough Crossmatch 04/26/21 04/26/21 04/27/21 17:55 19:27 00:02 WBC RBC Hgb Hct MCV MCH RDW Plt Count Lymph % (Auto) Seg Neutrophils % Seg Neuts % (Manual) Lymphocytes % (Manual) Nucleated RBC % Seg Neutrophils # Lymphocytes # (Manual) PT INR ABG pO2 ABG HCO3 ABG Base Excess ABG Hemoglobin VBG pH Oxyhemoglobin Sodium Potassium Chloride Carbon Dioxide BUN Creatinine Glucose POC Glucose 194 H 261 H Hemoglobin A1c Lactic Acid Calcium Phosphorus Magnesium Alkaline Phosphatase C-Reactive Protein Total Protein Albumin Vancomycin Trough 38.2 H Crossmatch 04/27/21 04/27/21 04/27/21 04:03 04:03 05:33 WBC RBC 3.20 L Hgb 8.1 L Hct 25.1 L MCV 78 L MCH 25 L RDW Plt Count Lymph % (Auto) Seg Neutrophils % Seg Neuts % (Manual) Lymphocytes % (Manual) Nucleated RBC % Seg Neutrophils # Lymphocytes # (Manual) PT INR ABG pO2 ABG HCO3 ABG Base Excess ABG Hemoglobin VBG pH Oxyhemoglobin Sodium Potassium Chloride 112.4 H Carbon Dioxide 12 L BUN 30 H Creatinine Glucose 330 H POC Glucose 311 H Hemoglobin A1c Lactic Acid Calcium Phosphorus Magnesium Alkaline Phosphatase C-Reactive Protein Total Protein Albumin Vancomycin Trough Crossmatch 04/27/21 04/27/21 04/27/21 09:51 13:15 16:43 WBC RBC Hgb Hct MCV MCH RDW Plt Count Lymph % (Auto) Seg Neutrophils % Seg Neuts % (Manual) Lymphocytes % (Manual) Nucleated RBC % Seg Neutrophils # Lymphocytes # (Manual) PT INR ABG pO2 ABG HCO3 ABG Base Excess ABG Hemoglobin VBG pH Oxyhemoglobin Sodium Potassium Chloride Carbon Dioxide BUN Creatinine Glucose POC Glucose 335 H 291 H 218 H Hemoglobin A1c Lactic Acid Calcium Phosphorus Magnesium Alkaline Phosphatase C-Reactive Protein Total Protein Albumin Vancomycin Trough Crossmatch 04/27/21 04/27/21 04/28/21 18:10 22:08 02:15 WBC RBC Hgb Hct MCV MCH RDW Plt Count Lymph % (Auto) Seg Neutrophils % Seg Neuts % (Manual) Lymphocytes % (Manual) Nucleated RBC % Seg Neutrophils # Lymphocytes # (Manual) PT INR ABG pO2 ABG HCO3 ABG Base Excess ABG Hemoglobin VBG pH Oxyhemoglobin Sodium Potassium Chloride Carbon Dioxide BUN Creatinine Glucose POC Glucose 177 H 136 H 152 H Hemoglobin A1c Lactic Acid Calcium Phosphorus Magnesium Alkaline Phosphatase C-Reactive Protein Total Protein Albumin Vancomycin Trough Crossmatch 04/28/21 04/28/21 04/28/21 04:41 04:41 06:03 WBC RBC 3.50 L Hgb 8.9 L Hct 27.3 L MCV 78 L MCH 26 L RDW Plt Count Lymph % (Auto) Seg Neutrophils % Seg Neuts % (Manual) Lymphocytes % (Manual) Nucleated RBC % Seg Neutrophils # Lymphocytes # (Manual) PT INR ABG pO2 ABG HCO3 ABG Base Excess ABG Hemoglobin VBG pH Oxyhemoglobin Sodium Potassium Chloride 113.5 H Carbon Dioxide 16 L BUN 37 H Creatinine Glucose 167 H POC Glucose 174 H Hemoglobin A1c Lactic Acid Calcium Phosphorus Magnesium Alkaline Phosphatase C-Reactive Protein Total Protein Albumin Vancomycin Trough Crossmatch 04/28/21 04/28/21 04/28/21 08:42 11:34 17:15 WBC RBC Hgb Hct MCV MCH RDW Plt Count Lymph % (Auto) Seg Neutrophils % Seg Neuts % (Manual) Lymphocytes % (Manual) Nucleated RBC % Seg Neutrophils # Lymphocytes # (Manual) PT INR ABG pO2 ABG HCO3 ABG Base Excess ABG Hemoglobin VBG pH Oxyhemoglobin Sodium Potassium Chloride Carbon Dioxide BUN Creatinine Glucose POC Glucose 212 H 228 H 236 H Hemoglobin A1c Lactic Acid Calcium Phosphorus Magnesium Alkaline Phosphatase C-Reactive Protein Total Protein Albumin Vancomycin Trough Crossmatch 04/28/21 04/29/21 04/29/21 21:58 01:55 04:00 WBC 11.7 H RBC 3.35 L Hgb 8.5 L Hct 26.4 L MCV MCH 25 L RDW Plt Count Lymph % (Auto) Seg Neutrophils % Seg Neuts % (Manual) Lymphocytes % (Manual) Nucleated RBC % Seg Neutrophils # Lymphocytes # (Manual) PT INR ABG pO2 ABG HCO3 ABG Base Excess ABG Hemoglobin VBG pH Oxyhemoglobin Sodium Potassium Chloride Carbon Dioxide BUN Creatinine Glucose POC Glucose 208 H 137 H Hemoglobin A1c Lactic Acid Calcium Phosphorus Magnesium Alkaline Phosphatase C-Reactive Protein Total Protein Albumin Vancomycin Trough Crossmatch 04/29/21 04/29/21 04/29/21 04:00 05:16 11:02 WBC RBC Hgb Hct MCV MCH RDW Plt Count Lymph % (Auto) Seg Neutrophils % Seg Neuts % (Manual) Lymphocytes % (Manual) Nucleated RBC % Seg Neutrophils # Lymphocytes # (Manual) PT INR ABG pO2 ABG HCO3 ABG Base Excess ABG Hemoglobin VBG pH Oxyhemoglobin Sodium 146 H Potassium Chloride 112.4 H Carbon Dioxide BUN 41 H Creatinine Glucose 115 H POC Glucose 114 H 144 H Hemoglobin A1c Lactic Acid Calcium Phosphorus Magnesium Alkaline Phosphatase C-Reactive Protein Total Protein Albumin Vancomycin Trough Crossmatch 04/30/21 04/30/21 04/30/21 00:23 04:41 04:41 WBC 14.4 H RBC 3.12 L Hgb 7.8 L Hct 24.7 L MCV MCH 25 L RDW Plt Count 138 L Lymph % (Auto) Seg Neutrophils % Seg Neuts % (Manual) Lymphocytes % (Manual) Nucleated RBC % Seg Neutrophils # Lymphocytes # (Manual) PT INR ABG pO2 ABG HCO3 ABG Base Excess ABG Hemoglobin VBG pH Oxyhemoglobin Sodium Potassium Chloride 108.0 H Carbon Dioxide BUN 42 H Creatinine Glucose 215 H POC Glucose 126 H Hemoglobin A1c Lactic Acid Calcium Phosphorus Magnesium Alkaline Phosphatase 171 H C-Reactive Protein Total Protein 6.1 L Albumin 1.4 L Vancomycin Trough Crossmatch 04/30/21 04/30/21 04/30/21 05:22 11:55 17:36 WBC RBC Hgb Hct MCV MCH RDW Plt Count Lymph % (Auto) Seg Neutrophils % Seg Neuts % (Manual) Lymphocytes % (Manual) Nucleated RBC % Seg Neutrophils # Lymphocytes # (Manual) PT INR ABG pO2 ABG HCO3 ABG Base Excess ABG Hemoglobin VBG pH Oxyhemoglobin Sodium Potassium Chloride Carbon Dioxide BUN Creatinine Glucose POC Glucose 196 H 224 H 196 H Hemoglobin A1c Lactic Acid Calcium Phosphorus Magnesium Alkaline Phosphatase C-Reactive Protein Total Protein Albumin Vancomycin Trough Crossmatch 05/01/21 05/01/21 05/01/21 04:01 05:37 05:37 WBC 16.9 H RBC 2.97 L Hgb 7.4 L Hct 23.1 L MCV 78 L MCH 25 L RDW Plt Count Lymph % (Auto) Seg Neutrophils % Seg Neuts % (Manual) Lymphocytes % (Manual) Nucleated RBC % Seg Neutrophils # Lymphocytes # (Manual) PT INR ABG pO2 ABG HCO3 ABG Base Excess ABG Hemoglobin VBG pH Oxyhemoglobin Sodium Potassium Chloride 108.4 H Carbon Dioxide BUN 41 H Creatinine Glucose 124 H POC Glucose 122 H Hemoglobin A1c Lactic Acid Calcium 8.0 L Phosphorus Magnesium Alkaline Phosphatase C-Reactive Protein Total Protein Albumin Vancomycin Trough Crossmatch 05/01/21 05/01/21 05/01/21 06:27 13:45 16:40 WBC RBC Hgb Hct MCV MCH RDW Plt Count Lymph % (Auto) Seg Neutrophils % Seg Neuts % (Manual) Lymphocytes % (Manual) Nucleated RBC % Seg Neutrophils # Lymphocytes # (Manual) PT INR ABG pO2 ABG HCO3 ABG Base Excess ABG Hemoglobin VBG pH Oxyhemoglobin Sodium Potassium Chloride Carbon Dioxide BUN Creatinine Glucose POC Glucose 126 H 231 H 266 H Hemoglobin A1c Lactic Acid Calcium Phosphorus Magnesium Alkaline Phosphatase C-Reactive Protein Total Protein Albumin Vancomycin Trough Crossmatch 05/01/21 05/02/21 05/02/21 23:16 05:43 11:27 WBC RBC Hgb Hct MCV MCH RDW Plt Count Lymph % (Auto) Seg Neutrophils % Seg Neuts % (Manual) Lymphocytes % (Manual) Nucleated RBC % Seg Neutrophils # Lymphocytes # (Manual) PT INR ABG pO2 ABG HCO3 ABG Base Excess ABG Hemoglobin VBG pH Oxyhemoglobin Sodium Potassium Chloride Carbon Dioxide BUN Creatinine Glucose POC Glucose 192 H 236 H 284 H Hemoglobin A1c Lactic Acid Calcium Phosphorus Magnesium Alkaline Phosphatase C-Reactive Protein Total Protein Albumin Vancomycin Trough Crossmatch 05/02/21 05/02/21 05/03/21 16:52 23:20 06:16 WBC RBC Hgb Hct MCV MCH RDW Plt Count Lymph % (Auto) Seg Neutrophils % Seg Neuts % (Manual) Lymphocytes % (Manual) Nucleated RBC % Seg Neutrophils # Lymphocytes # (Manual) PT INR ABG pO2 ABG HCO3 ABG Base Excess ABG Hemoglobin VBG pH Oxyhemoglobin Sodium Potassium Chloride Carbon Dioxide BUN Creatinine Glucose POC Glucose 170 H 124 H 147 H Hemoglobin A1c Lactic Acid Calcium Phosphorus Magnesium Alkaline Phosphatase C-Reactive Protein Total Protein Albumin Vancomycin Trough Crossmatch 05/03/21 05/03/21 05/03/21 07:05 07:05 11:46 WBC 14.3 H RBC 2.82 L Hgb 6.8 L Hct 22.7 L MCV MCH 24 L RDW Plt Count Lymph % (Auto) 11.8 L Seg Neutrophils % 83.3 H Seg Neuts % (Manual) Lymphocytes % (Manual) Nucleated RBC % Seg Neutrophils # 11.9 H Lymphocytes # (Manual) PT INR ABG pO2 ABG HCO3 ABG Base Excess ABG Hemoglobin VBG pH Oxyhemoglobin Sodium Potassium Chloride Carbon Dioxide BUN 39 H Creatinine Glucose 163 H POC Glucose 134 H Hemoglobin A1c Lactic Acid Calcium Phosphorus Magnesium Alkaline Phosphatase C-Reactive Protein Total Protein Albumin Vancomycin Trough Crossmatch 05/03/21 05/03/21 05/03/21 17:11 18:00 19:46 WBC RBC Hgb Hct MCV MCH RDW Plt Count Lymph % (Auto) Seg Neutrophils % Seg Neuts % (Manual) Lymphocytes % (Manual) Nucleated RBC % Seg Neutrophils # Lymphocytes # (Manual) PT INR ABG pO2 ABG HCO3 ABG Base Excess ABG Hemoglobin VBG pH Oxyhemoglobin Sodium Potassium Chloride Carbon Dioxide BUN Creatinine Glucose POC Glucose 129 H 128 H Hemoglobin A1c Lactic Acid Calcium Phosphorus Magnesium Alkaline Phosphatase C-Reactive Protein Total Protein Albumin Vancomycin Trough Crossmatch See Detail 05/03/21 05/04/21 05/04/21 22:00 08:06 11:19 WBC RBC Hgb Hct MCV MCH RDW Plt Count Lymph % (Auto) Seg Neutrophils % Seg Neuts % (Manual) Lymphocytes % (Manual) Nucleated RBC % Seg Neutrophils # Lymphocytes # (Manual) PT INR ABG pO2 ABG HCO3 ABG Base Excess ABG Hemoglobin VBG pH Oxyhemoglobin Sodium Potassium Chloride Carbon Dioxide BUN Creatinine Glucose POC Glucose 144 H 337 H 383 H Hemoglobin A1c Lactic Acid Calcium Phosphorus Magnesium Alkaline Phosphatase C-Reactive Protein Total Protein Albumin Vancomycin Trough Crossmatch 05/04/21 05/04/21 05/05/21 17:43 23:01 06:05 WBC RBC Hgb Hct MCV MCH RDW Plt Count Lymph % (Auto) Seg Neutrophils % Seg Neuts % (Manual) Lymphocytes % (Manual) Nucleated RBC % Seg Neutrophils # Lymphocytes # (Manual) PT INR ABG pO2 ABG HCO3 ABG Base Excess ABG Hemoglobin VBG pH Oxyhemoglobin Sodium Potassium Chloride Carbon Dioxide BUN Creatinine Glucose POC Glucose 316 H 320 H 395 H Hemoglobin A1c Lactic Acid Calcium Phosphorus Magnesium Alkaline Phosphatase C-Reactive Protein Total Protein Albumin Vancomycin Trough Crossmatch 05/05/21 05/05/21 05/05/21 06:15 06:15 11:38 WBC RBC 2.56 L Hgb 6.8 L 6.9 L Hct 21.4 L 22.7 L MCV MCH 27 L RDW Plt Count 442 H Lymph % (Auto) Seg Neutrophils % 76.5 H Seg Neuts % (Manual) Lymphocytes % (Manual) Nucleated RBC % Seg Neutrophils # Lymphocytes # (Manual) PT INR ABG pO2 ABG HCO3 ABG Base Excess ABG Hemoglobin VBG pH Oxyhemoglobin Sodium Potassium Chloride Carbon Dioxide BUN 52 H Creatinine Glucose 430 H POC Glucose Hemoglobin A1c Lactic Acid Calcium Phosphorus Magnesium Alkaline Phosphatase C-Reactive Protein Total Protein Albumin Vancomycin Trough Crossmatch 05/05/21 05/05/21 05/06/21 11:47 23:07 06:44 WBC RBC Hgb Hct MCV MCH RDW Plt Count Lymph % (Auto) Seg Neutrophils % Seg Neuts % (Manual) Lymphocytes % (Manual) Nucleated RBC % Seg Neutrophils # Lymphocytes # (Manual) PT INR ABG pO2 ABG HCO3 ABG Base Excess ABG Hemoglobin VBG pH Oxyhemoglobin Sodium Potassium Chloride Carbon Dioxide BUN Creatinine Glucose POC Glucose 307 H 141 H 147 H Hemoglobin A1c Lactic Acid Calcium Phosphorus Magnesium Alkaline Phosphatase C-Reactive Protein Total Protein Albumin Vancomycin Trough Crossmatch 05/06/21 05/06/21 05/06/21 07:52 12:27 17:02 WBC RBC Hgb 7.0 L Hct 21.8 L MCV MCH RDW Plt Count Lymph % (Auto) Seg Neutrophils % Seg Neuts % (Manual) Lymphocytes % (Manual) Nucleated RBC % Seg Neutrophils # Lymphocytes # (Manual) PT INR ABG pO2 ABG HCO3 ABG Base Excess ABG Hemoglobin VBG pH Oxyhemoglobin Sodium Potassium Chloride Carbon Dioxide BUN Creatinine Glucose POC Glucose 200 H 135 H Hemoglobin A1c Lactic Acid Calcium Phosphorus Magnesium Alkaline Phosphatase C-Reactive Protein Total Protein Albumin Vancomycin Trough Crossmatch 05/06/21 05/07/21 05/07/21 23:03 08:02 10:49 WBC RBC Hgb 7.4 L Hct 23.7 L MCV MCH RDW Plt Count Lymph % (Auto) Seg Neutrophils % Seg Neuts % (Manual) Lymphocytes % (Manual) Nucleated RBC % Seg Neutrophils # Lymphocytes # (Manual) PT INR ABG pO2 ABG HCO3 ABG Base Excess ABG Hemoglobin VBG pH Oxyhemoglobin Sodium Potassium Chloride Carbon Dioxide BUN Creatinine Glucose POC Glucose 150 H 255 H Hemoglobin A1c Lactic Acid Calcium Phosphorus Magnesium Alkaline Phosphatase C-Reactive Protein Total Protein Albumin Vancomycin Trough Crossmatch 05/07/21 05/07/21 05/07/21 13:27 18:03 Unknown WBC RBC 2.66 L Hgb 6.9 L Hct 22.3 L MCV MCH 26 L RDW 15.4 H Plt Count 449 H Lymph % (Auto) Seg Neutrophils % 70.7 H Seg Neuts % (Manual) Lymphocytes % (Manual) Nucleated RBC % Seg Neutrophils # Lymphocytes # (Manual) PT INR ABG pO2 ABG HCO3 ABG Base Excess ABG Hemoglobin VBG pH Oxyhemoglobin Sodium Potassium Chloride Carbon Dioxide BUN Creatinine Glucose POC Glucose 149 H 127 H Hemoglobin A1c Lactic Acid Calcium Phosphorus Magnesium Alkaline Phosphatase C-Reactive Protein Total Protein Albumin Vancomycin Trough Crossmatch 05/08/21 05/08/21 05/08/21 06:10 07:51 11:55 WBC RBC Hgb Hct MCV MCH RDW Plt Count Lymph % (Auto) Seg Neutrophils % Seg Neuts % (Manual) Lymphocytes % (Manual) Nucleated RBC % Seg Neutrophils # Lymphocytes # (Manual) PT INR ABG pO2 ABG HCO3 ABG Base Excess ABG Hemoglobin VBG pH Oxyhemoglobin Sodium Potassium Chloride Carbon Dioxide BUN Creatinine Glucose POC Glucose 190 H 194 H 197 H Hemoglobin A1c Lactic Acid Calcium Phosphorus Magnesium Alkaline Phosphatase C-Reactive Protein Total Protein Albumin Vancomycin Trough Crossmatch 05/08/21 05/08/21 05/08/21 12:25 12:25 18:35 WBC RBC 2.42 L Hgb 6.6 L Hct 20.1 L MCV MCH 27 L RDW 15.3 H Plt Count 452 H Lymph % (Auto) Seg Neutrophils % Seg Neuts % (Manual) Lymphocytes % (Manual) Nucleated RBC % Seg Neutrophils # Lymphocytes # (Manual) PT INR ABG pO2 ABG HCO3 ABG Base Excess ABG Hemoglobin VBG pH Oxyhemoglobin Sodium Potassium Chloride Carbon Dioxide BUN 27 H Creatinine Glucose 216 H POC Glucose 195 H Hemoglobin A1c Lactic Acid Calcium 7.9 L Phosphorus Magnesium Alkaline Phosphatase C-Reactive Protein Total Protein Albumin Vancomycin Trough Crossmatch 05/08/21 05/09/21 05/09/21 23:45 01:39 02:57 WBC RBC Hgb 6.6 L Hct 20.7 L MCV MCH RDW Plt Count Lymph % (Auto) Seg Neutrophils % Seg Neuts % (Manual) Lymphocytes % (Manual) Nucleated RBC % Seg Neutrophils # Lymphocytes # (Manual) PT INR ABG pO2 ABG HCO3 ABG Base Excess ABG Hemoglobin VBG pH Oxyhemoglobin Sodium Potassium Chloride Carbon Dioxide BUN Creatinine Glucose POC Glucose 286 H Hemoglobin A1c Lactic Acid Calcium Phosphorus Magnesium Alkaline Phosphatase C-Reactive Protein Total Protein Albumin Vancomycin Trough Crossmatch See Detail 05/09/21 05/09/21 05/09/21 04:51 07:34 07:34 WBC RBC 2.46 L Hgb 6.3 L Hct 20.6 L MCV MCH 26 L RDW 15.5 H Plt Count 505 H Lymph % (Auto) Seg Neutrophils % Seg Neuts % (Manual) Lymphocytes % (Manual) Nucleated RBC % Seg Neutrophils # Lymphocytes # (Manual) PT INR ABG pO2 ABG HCO3 ABG Base Excess ABG Hemoglobin VBG pH Oxyhemoglobin Sodium Potassium Chloride Carbon Dioxide BUN 24 H Creatinine Glucose 307 H POC Glucose 266 H Hemoglobin A1c Lactic Acid Calcium 7.7 L Phosphorus Magnesium Alkaline Phosphatase C-Reactive Protein Total Protein Albumin Vancomycin Trough Crossmatch 05/09/21 05/09/21 05/10/21 12:20 16:01 05:34 WBC RBC Hgb Hct MCV MCH RDW Plt Count Lymph % (Auto) Seg Neutrophils % Seg Neuts % (Manual) Lymphocytes % (Manual) Nucleated RBC % Seg Neutrophils # Lymphocytes # (Manual) PT INR ABG pO2 ABG HCO3 ABG Base Excess ABG Hemoglobin VBG pH Oxyhemoglobin Sodium Potassium Chloride Carbon Dioxide BUN Creatinine Glucose POC Glucose 249 H 166 H 203 H Hemoglobin A1c Lactic Acid Calcium Phosphorus Magnesium Alkaline Phosphatase C-Reactive Protein Total Protein Albumin Vancomycin Trough Crossmatch 05/10/21 05/10/21 05/10/21 06:30 16:11 23:11 WBC RBC 2.62 L Hgb 6.8 L Hct 21.8 L MCV MCH 26 L RDW 15.6 H Plt Count 489 H Lymph % (Auto) Seg Neutrophils % Seg Neuts % (Manual) Lymphocytes % (Manual) Nucleated RBC % Seg Neutrophils # Lymphocytes # (Manual) PT INR ABG pO2 ABG HCO3 ABG Base Excess ABG Hemoglobin VBG pH Oxyhemoglobin Sodium Potassium Chloride Carbon Dioxide BUN Creatinine Glucose POC Glucose 210 H 134 H Hemoglobin A1c Lactic Acid Calcium Phosphorus Magnesium Alkaline Phosphatase C-Reactive Protein Total Protein Albumin Vancomycin Trough Crossmatch 05/11/21 05/11/21 05/11/21 05:29 12:07 18:11 WBC RBC Hgb Hct MCV MCH RDW Plt Count Lymph % (Auto) Seg Neutrophils % Seg Neuts % (Manual) Lymphocytes % (Manual) Nucleated RBC % Seg Neutrophils # Lymphocytes # (Manual) PT INR ABG pO2 ABG HCO3 ABG Base Excess ABG Hemoglobin VBG pH Oxyhemoglobin Sodium Potassium Chloride Carbon Dioxide BUN Creatinine Glucose POC Glucose 144 H 226 H 140 H Hemoglobin A1c Lactic Acid Calcium Phosphorus Magnesium Alkaline Phosphatase C-Reactive Protein Total Protein Albumin Vancomycin Trough Crossmatch 05/11/21 05/11/21 05/12/21 23:54 Unknown 10:01 WBC RBC 2.65 L Hgb 7.0 L Hct 22.1 L MCV MCH 26 L RDW 15.9 H Plt Count 518 H Lymph % (Auto) Seg Neutrophils % Seg Neuts % (Manual) Lymphocytes % (Manual) Nucleated RBC % Seg Neutrophils # Lymphocytes # (Manual) PT INR ABG pO2 ABG HCO3 ABG Base Excess ABG Hemoglobin VBG pH Oxyhemoglobin Sodium Potassium Chloride Carbon Dioxide BUN Creatinine Glucose POC Glucose 116 H 237 H Hemoglobin A1c Lactic Acid Calcium Phosphorus Magnesium Alkaline Phosphatase C-Reactive Protein Total Protein Albumin Vancomycin Trough Crossmatch 05/12/21 05/12/21 05/13/21 13:01 17:23 05:40 WBC RBC Hgb Hct MCV MCH RDW Plt Count Lymph % (Auto) Seg Neutrophils % Seg Neuts % (Manual) Lymphocytes % (Manual) Nucleated RBC % Seg Neutrophils # Lymphocytes # (Manual) PT INR ABG pO2 ABG HCO3 ABG Base Excess ABG Hemoglobin VBG pH Oxyhemoglobin Sodium Potassium Chloride Carbon Dioxide BUN Creatinine Glucose POC Glucose 227 H 158 H 126 H Hemoglobin A1c Lactic Acid Calcium Phosphorus Magnesium Alkaline Phosphatase C-Reactive Protein Total Protein Albumin Vancomycin Trough Crossmatch 05/13/21 05/13/21 05/13/21 09:16 09:16 11:50 WBC RBC 2.49 L Hgb 6.8 L Hct 20.7 L MCV MCH 27 L RDW 15.8 H Plt Count 535 H Lymph % (Auto) Seg Neutrophils % Seg Neuts % (Manual) Lymphocytes % (Manual) Nucleated RBC % Seg Neutrophils # Lymphocytes # (Manual) PT INR ABG pO2 ABG HCO3 ABG Base Excess ABG Hemoglobin VBG pH Oxyhemoglobin Sodium 135 L Potassium Chloride 97.0 L Carbon Dioxide BUN 25 H Creatinine Glucose 197 H POC Glucose 231 H Hemoglobin A1c Lactic Acid Calcium 7.8 L Phosphorus Magnesium Alkaline Phosphatase C-Reactive Protein Total Protein Albumin Vancomycin Trough Crossmatch 05/13/21 05/13/21 05/14/21 13:20 16:59 05:00 WBC 11.4 H RBC 2.80 L Hgb 7.7 L Hct 23.3 L MCV MCH 27 L RDW 16.0 H Plt Count 507 H Lymph % (Auto) Seg Neutrophils % Seg Neuts % (Manual) Lymphocytes % (Manual) Nucleated RBC % Seg Neutrophils # Lymphocytes # (Manual) PT INR ABG pO2 ABG HCO3 ABG Base Excess ABG Hemoglobin VBG pH Oxyhemoglobin Sodium Potassium Chloride Carbon Dioxide BUN Creatinine Glucose POC Glucose 130 H Hemoglobin A1c Lactic Acid Calcium Phosphorus Magnesium Alkaline Phosphatase C-Reactive Protein Total Protein Albumin Vancomycin Trough Crossmatch See Detail 05/14/21 05/14/21 05/14/21 05:00 05:34 11:59 WBC RBC Hgb Hct MCV MCH RDW Plt Count Lymph % (Auto) Seg Neutrophils % Seg Neuts % (Manual) Lymphocytes % (Manual) Nucleated RBC % Seg Neutrophils # Lymphocytes # (Manual) PT INR ABG pO2 ABG HCO3 ABG Base Excess ABG Hemoglobin VBG pH Oxyhemoglobin Sodium 135 L Potassium Chloride Carbon Dioxide BUN 24 H Creatinine Glucose 134 H POC Glucose 128 H 179 H Hemoglobin A1c Lactic Acid Calcium 8.0 L Phosphorus Magnesium Alkaline Phosphatase C-Reactive Protein Total Protein Albumin Vancomycin Trough Crossmatch 05/14/21 05/15/2105/15/21 23:48 04:51 04:58 WBC 12.1 H RBC 2.80 L Hgb 7.2 L Hct 23.4 L MCV MCH 26 L RDW 16.1 H Plt Count 537 H Lymph % (Auto) Seg Neutrophils % Seg Neuts % (Manual) Lymphocytes % (Manual) Nucleated RBC % Seg Neutrophils # Lymphocytes # (Manual) PT INR ABG pO2 ABG HCO3 ABG Base Excess ABG Hemoglobin VBG pH Oxyhemoglobin Sodium Potassium Chloride Carbon Dioxide BUN Creatinine Glucose POC Glucose 171 H 220 H Hemoglobin A1c Lactic Acid Calcium Phosphorus Magnesium Alkaline Phosphatase C-Reactive Protein Total Protein Albumin Vancomycin Trough Crossmatch 05/15/21 05/15/21 05/15/21 05:53 09:02 10:48 WBC RBC Hgb Hct MCV MCH RDW Plt Count Lymph % (Auto) Seg Neutrophils % Seg Neuts % (Manual) Lymphocytes % (Manual) Nucleated RBC % Seg Neutrophils # Lymphocytes # (Manual) PT INR ABG pO2 ABG HCO3 ABG Base Excess ABG Hemoglobin VBG pH Oxyhemoglobin Sodium Potassium Chloride Carbon Dioxide BUN Creatinine Glucose POC Glucose 222 H 196 H 179 H Hemoglobin A1c Lactic Acid Calcium Phosphorus Magnesium Alkaline Phosphatase C-Reactive Protein Total Protein Albumin Vancomycin Trough Crossmatch 05/15/21 05/15/21 05/15/21 13:04 15:46 16:20 WBC RBC Hgb Hct MCV MCH RDW Plt Count Lymph % (Auto) Seg Neutrophils % Seg Neuts % (Manual) Lymphocytes % (Manual) Nucleated RBC % Seg Neutrophils # Lymphocytes # (Manual) PT 15.8 H INR 1.14 H ABG pO2 ABG HCO3 ABG Base Excess ABG Hemoglobin VBG pH Oxyhemoglobin Sodium Potassium Chloride Carbon Dioxide BUN Creatinine Glucose POC Glucose 49 L 122 H Hemoglobin A1c Lactic Acid Calcium Phosphorus Magnesium Alkaline Phosphatase C-Reactive Protein Total Protein Albumin Vancomycin Trough Crossmatch 05/15/21 05/16/21 05/16/21 22:50 00:01 05:49 WBC RBC Hgb Hct MCV MCH RDW Plt Count Lymph % (Auto) Seg Neutrophils % Seg Neuts % (Manual) Lymphocytes % (Manual) Nucleated RBC % Seg Neutrophils # Lymphocytes # (Manual) PT INR ABG pO2 ABG HCO3 ABG Base Excess ABG Hemoglobin VBG pH Oxyhemoglobin Sodium Potassium Chloride Carbon Dioxide BUN Creatinine Glucose POC Glucose 63 L 143 H 144 H Hemoglobin A1c Lactic Acid Calcium Phosphorus Magnesium Alkaline Phosphatase C-Reactive Protein Total Protein Albumin Vancomycin Trough Crossmatch Allied health notes reviewed: nursing
[2021-05-16 11:02] LABS: BUN/Creatinine Ratio 24; Blood Urea Nitrogen 19 mg/dL (7-17); Calcium 8.1 mg/dL (8.4-10.2); Hemolysis Index 1
[2021-05-16] MEDS: LANSOPRAZOLE 30 MG SOLUTAB FEEDTUBE SCH (11:40)
--- NOTE | 2021-05-16 13:42 | Anesthesia Consultation ---
Anesthesia Consult and Med Hx Date of service: 05/16/21 - Airway Anesthetic Teeth Evaluation: Poor ROM Head & Neck: Inadequate Mental/Hyoid Distance: Adequate Mallampati Class: Class III Intubation Access Assessment: Possibly Difficult - Pulmonary Exam CTA: No (Bilateral coarse BS with rhonchi, rare end-expiratory wheezing) - Cardiac Exam Cardiac Exam: RRR - Pre-Operative Health Status ASA Pre-Surgery Classification: ASA3 Proposed Anesthetic Plan: MAC - Pulmonary Hx Asthma: Yes Hx Respiratory Symptoms: Yes (Pulmonary hypertension; on O2 NC @ 3L/min.) SOB: Yes COPD: No Home Oxygen Therapy: Yes Hx Pneumonia: No Hx Sleep Apnea: No - Cardiovascular System Hx Hypertension: Yes Hx Coronary Artery Disease: No Hx Heart Attack/AMI: No Hx Angina: No Hx Percutaneous Transluminal Coronary Angioplasty (PTCA): No Hx Pacemaker: No Hx Internal Defibrillator: No Hx Valvular Heart Disease: No Hx Heart Murmur: No Hx Peripheral Vascular Disease: No - Central Nervous System Hx Seizures: No CVA: No Hx Back Pain: Yes (arthritis with right knee infection) Hx Psychiatric Problems: No (metabolic enchaphelopathy on admission, oriented x3 now) - Gastrointestinal Hx Ulcer: No (has NG tube in place) Hx Gastroesophageal Reflux Disease: No - Endocrine Hx Renal Disease: No Hx End Stage Renal Disease: No Hx Liver Disease: No Hx Insulin Dependent Diabetes: Yes (A1c 7.9) Hx Thyroid Disease: No - Hematic Hx Anemia: Yes (hgb 7.2) - Other Systems Hx Cancer: No Hx Obesity: Yes (BMI 53.2) - Additional Comments Anesthesia Medical History Comments: No GAC, no FHAC
--- NOTE | 2021-05-16 13:47 | Anesthesia Day of Surgery ---
Anesthesia Day of Surgery - Day of Surgery Patient Examined: Yes Patient H&P Reviewed: Yes Patient is NPO: Yes Beta Blockers: No
--- NOTE | 2021-05-16 14:31 | Post Anesthesia Evaluation ---
- Post Anesthesia Evaluation Patient Participated: Yes Airway Patent: Yes Stable Respiratory Function: Yes Nausea/Vomiting: No Temp > 96.8F: Yes Pain Manageable: Yes Adequeate Hydration: Yes Anesthesia Complications: No
--- NOTE | 2021-05-16 16:06 | Progress Note ---
Assessment and Plan Cultures: 04/24/2021 Blood culture: GBS Blood culture 04/26/2021: No growth 04/30/2021 R knee synovial fluid culture: Group B Streptococcus 05/03/2021 right knee OR culture: No growth A/P: 51 yo F with DM2, HTN, morbid obesity presented with sepsis #Acute sepsis: secondary to group B streptococcus bacteremia, source is R knee. #Group B streptococcus bacteremia secondary to R knee septic arthritis: Reports a history of previous right knee septic arthritis and has been treated with antibiotics at least twice in the past. X-ray shows large joint effusion. TTE without any evidence of valvular vegetations/endocarditis. Arthrocentesis culture also positive. Status post I&D followed by arthroscopic examination of right knee on 05/03/2021, as per operative note, "entered the joint proper with return of copious amounts of purulent material" and "significant cartilage degeneration from repeated infections". Will need a longer ~6 weeks course of IV abx after surgery due to her history of recurrence / chronicity and possibility of osteomyelitis, extensive cartilage degeneration. #DM2: tight glycemic control for best outcomes. #Anemia: EGD with gastritis, pending colonoscopy. Recs: -fevers appear to be improving though white count remains mildly elevated. -continue high dose IV Ancef while inpatient, upon discharge, continue IV Ceftriaxone ending 06/14/2021, CM orders have already been placed. PICC in place Candelario Chawla MD [facility] ([facility] O: [phone] F: [phone] Subjective Date of service: 05/16/21 Principal diagnosis: HAGMA; DKA; AMS; Obesity; Osteoarthritis; Hypercalcemia Interval history: Afebrile, white count 12.1. Was taken for EGD today moderate gastritis seen Objective - Exam Narrative Exam: Narrative Exam: Physical Exam: Constitutional: Alert, cooperative. Head, Ears, Nose: Normocephalic, atraumatic. External ears, nose normal Eyes: Conjunctivae/corneas clear. No icterus. No ptosis. Neck: Supple, no meningeal signs Cardiovascular: S1, S2 + Respiratory: Good air entry, clear to auscultation bilaterally GI: Soft, non-tender; bowel sounds normal. No peritoneal signs Musculoskeletal: Right knee with dressing +, swelling and tenderness + Skin: No rash or abscess Hem/Lymphatic: No palpable cervical or supraclavicular nodes. Psych: Mood ok. Affect normal Neurological: Awake, alert, oriented. No gross abnormality - Constitutional Vitals: Vital Signs Temp Pulse Resp BP Pulse Ox 98.4 F 111 H 22 184/95 97 05/16/21 12:56 05/16/21 12:56 05/16/21 12:56 05/16/21 12:56 05/16/21 15:55 Temperature -Last 24 Hours Temperature 98.4 F Temperature 97.6 F Temperature 97.7 F Temperature 98.2 F Temperature 98.1 F Temperature 98.6 F Temperature 98.0 F - Labs CBC & Chem 7: 05/16/21 10:09 05/16/21 10:09 Labs: Abnormal lab results 05/15/21 05/15/21 05/16/21 Range/Units 16:20 22:50 00:01 WBC (4.5-11.0) K/mm3 RBC (3.65-5.03) M/mm3 Hgb (10.1-14.3) gm/dl Hct (30.3-42.9) % MCH (28-32) pg RDW (13.2-15.2) % Plt Count (140-440) K/mm3 Sodium (137-145) mmol/L BUN (7-17) mg/dL Glucose (65-100) mg/dL POC Glucose 122 H 63 L 143 H (70-105) mg/dL Calcium (8.4-10.2) mg/dL 05/16/21 05/16/21 05/16/21 Range/Units 05:49 10:09 10:09 WBC 12.1 H (4.5-11.0) K/mm3 RBC 3.03 L (3.65-5.03) M/mm3 Hgb 7.6 L (10.1-14.3) gm/dl Hct 25.8 L (30.3-42.9) % MCH 25 L (28-32) pg RDW 16.5 H (13.2-15.2) % Plt Count 544 H (140-440) K/mm3 Sodium 136 L (137-145) mmol/L BUN 19 H (7-17) mg/dL Glucose 174 H (65-100) mg/dL POC Glucose 144 H (70-105) mg/dL Calcium 8.1 L (8.4-10.2) mg/dL 05/16/21 Range/Units 12:59 WBC (4.5-11.0) K/mm3 RBC (3.65-5.03) M/mm3 Hgb (10.1-14.3) gm/dl Hct (30.3-42.9) % MCH (28-32) pg RDW (13.2-15.2) % Plt Count (140-440) K/mm3 Sodium (137-145) mmol/L BUN (7-17) mg/dL Glucose (65-100) mg/dL POC Glucose 174 H (70-105) mg/dL Calcium (8.4-10.2) mg/dL
[2021-05-16] MEDS: POLYETHYLENE GLYCOL/ELECT SOLN 4000 ML NGTUBE SCH (19:30)
[2021-05-16] MEDS ORDERED: HEPARIN 5,000 UNIT/1 ML VIAL SUB-Q SCH (22:00)
[2021-05-16] MEDS: SENNOSIDES 8.6 MG TAB PO SCH (22:36)
[2021-05-17] MEDS: INSULIN LISPRO 100 UNIT/ML SUB-Q SCH ×4 (00:23→21:34)
[2021-05-17] MEDS: FREE WATER PO SCH ×4 (00:23→21:33)
[2021-05-17] MEDS ORDERED: WATER FOR IRRIG STERILE 1,000 ML BOTTLE ONE (07:35)
[2021-05-17] MEDS ORDERED: WATER FOR IRRIG STERILE 250 ML BOTTLE IR ONE (07:35)
[2021-05-17] MEDS ORDERED: LIDOCAINE MPF (2%) 20 MG/1 ML VIAL 5 ML ONE (08:09)
[2021-05-17] MEDS ORDERED: propofoL 200 MG/20 ML VIAL IV ONE (08:10)
--- NOTE | 2021-05-17 08:26 | Progress Note ---
Assessment and Plan Assessment and plan: This is a 51-year-old female with DM, noncompliance, obesity, arthritis and right knee surgery admitted for DKA, oropharyngeal dysphagia on tube feeding Speech therapist following, patient has septic arthritis and severe sepsis on long-term antibiotics Rocephin total 6 weeks., Anemia with 6.8 hemoglobin, received 1 unit PRBC yesterday, this morning hemoglobin 6.8, will recheck Hb and transfuse additional PRBC if needed -Anemia; Hb 6.8-6.9 Received 1 unit PRBC yesterday 05/05/2021 This morning Hb 6.9, transfuse additional 1 unit PRBC today Check stool for occult blood, monitor H&H 05/11 h/h--7.0/22.1 --Oropharyngeal dysphagia; Patient is on tube feeding till recently Now able to eat Patient could not be discharged before because of dysphagia and tube feeding Patient to be placed --Septic arthritis; knee; Ortho is planning knee/synovial debridement 04/30/2021;s/p arthrocentesis 05/03/2021 s/p Incision and drainage followed by arthroscopic exam of the right knee Continue antibiotics per ID total 6 weeks -- Sepsis, group B Streptococcus bacteremia, h/o right septic arthritis -Infectious disease consulted, appreciate recommendations -ABX therapy per ID: Ceftriaxone 2 g every 24 hours -Right knee x-ray shows large joint effusion s/p arthrocentesis Positive synovial fluid cultures, ID recommended total 6 weeks of Rocephin --Acute metabolic encephalopathy (improved significantly) Patient is more alert and awake, supportive care -Echocardiogram shows mildly dilated right heart chamber, mild to moderate TR, moderate pulmonary hypertension, RVSP 50-55, LVEF 45-50 --Respiratory: Acute hypoxic respiratory failure Nasal cannula oxygen, intermittent BiPAP Home O2 evaluation --Severe protein calorie malnutrition --Hypoalbuminemia, albumin 1.7 Dietitian/skiver sock linings following Continue tube feeding, nutrition supplements Supportive care -- Hypernatremia (resolved) Closely monitor electrolytes --Leukocytosis/trending down Secondary to sepsis, continue antibiotics and supportive care Closely monitor --S/p DKA, h/o uncontrolled DM/present on admission -Hemoglobin A1c 18.3 Blood sugars moderate control -Avoid hypoglycemia Accu-Chek sliding scale coverage tube feeding Glucerna --DVT prophylaxis Subcu Lovenox --Full CODE STATUS Discharge planning issues Patient is able to eat Physical therapy Placement issues are Outpatient antibiotic therapy To discuss with case management Subjective Date of service: 05/12/21 Principal diagnosis: HAGMA; DKA; AMS; Obesity; Osteoarthritis; Hypercalcemia Interval history: Brief history and daily hospital course This is a 51-year-old female with DM, OA, medication noncompliance, obesity who presented to emergency department on 04/23 with complaints of weakness, elevated blood glucose levels, nausea, polydipsia, polyuria and diminished oral intake over the past week with worsening symptoms over the past 2 days. Patient acknowledges noncompliance with oral antihyperglycemic therapy. Patient was s een and evaluated in the emergency department and found to have lab work consistent with diabetic ketoacidosis, metabolic encephalopathy, metabolic acidosis and volume depletion. Patient was admitted to the hospital service to the ICU initiated DKA protocol with CCM consult. 04/24/21- Patient remains on DKA protocol. Still very lethargic this am, following simple commands. Rt. knee wound and swelling noted, and nursing staff also reported thick, white vaginal discharge. C/f sepsis, blood culture ordered, this am UA noted. Will start patient on PO difflucan for possible yeast infection, pending culture data. Anion GAP is still 18 this am, will continue DKA protocol for now. Continue to monitor electrolytes, serial BMP ordered. 04/25/21- Patient appears to be in distress this am, now on 3L NC. Lactic acidosis worsen overnight, X1L LR bolus adminstered. Ordered placed for stat ABGs. Blood culture growing GPC 3/4 bottles, patient remains afebrile with no leukocytosis. IV abx was escalated, ID consulted. Ortho consult is still pending, order placed for XR of the Rt. knee. Given patient worsen condition and high anio, gap, will continue insulin gtt for now. Low K and mg was repleted. C ontinue serial BMP,mg, and phosp 04/26/21- Patient appears more alert and awake this am, talkative, and following commands. Remains on DKA protocol, gap is closedX2, will transition patient to SSI and basal insulin and initiate enteral nutrition. Patient remains afebrile overnight, continue IV Abx per ID. 04/27/21- TASHA overnight. Patient mentation continue to improve. Worsening hyperglycemia, patient is tolerating TF. 70/30 added BID and SSI was adjusted to high dose Q4hrs. D/W CCM patient is stable for transfer to [facility] 04/28/21- Patient continue to improve. Remains drowsy this am, however, easily arousable. Now on 4L NC, still requiring Q4hrs NT suction due to increased secretions and weak cough. Continue to wean O2 supplement as tolerated, F/U CXR in the am. Continue IV Abx per ID. 04/29: Patient is awake and alert with strong cough and able to clear own airway. Ortho consult for right knee aspiration pending. 04/30: No acute events reported overnight, patient will be transferred to the floor. MR of right knee ordered. 05/01; patient had arthrocentesis 05/02; ID recommended total 6 weeks of Rocephin, case management to assist with antibiotics 05/02; patient is febrile, sepsis and positive cultures, currently on Rocephin, ID following 05/03; patient remains on tube feeding, speech therapist has not cleared for oral nutrition, aspiration risk Septic arthritis awaiting synovial debridement knee joint 05/04; blood sugars are uncontrolled Lantus insulin was stopped due to surgical procedure yesterday, Resumed Novolin 70/30, closely monitor and adjust the dose as needed 05/05; patient received 1 unit of PRBC yesterday, a.m. hemoglobin remains 6.8 after transfusion, recheck H&H, transfuse additional PRBC Patient remains on tube feedings, speech therapy following, on long-term antibiotics for her septic knee total 6 weeks 05/06/2021 Patient remains on tube feedings Speech therapy 6 weeks of antibiotics for septic arthritis If patient can swallow and tube feedings are discontinued--- patient can have IV antibiotics as outpatient Not ready for discharge 05/07: Patient seen and examined, remains quit ill, NG tube still in place hemoglobin is still 6.9 despite second unit transfusion done. Hard sure where this is coming from unsure why the patient is not able to eat. Will obtain MRI of the head to further evaluate and also obtain stool for occult blood to further elicit. In the meantime this is a painless delay in discharge and once that is rectified placement is already being pursued by case management. Dressing in the knee is in place. 05/08/20[address] still in place 05/09/2021 NG tube still in place 05/10/2021 Patient more alert and oriented NG tube still in place 05/11/2021 Patient is more alert and oriented NG tube is taken out 05/12/2021 Patient is able to eat Patient is alert and oriented Patient is ready for discharge and outpatient IV antibiotics for 4 to 5 weeks. 05/13/21 Anemia with Hgb 6.8. Transfuse 1 Unit PRBC 05/14/21 Patient transfused 1 Unit, now Hgb 7.7 05/15/21 Patient started on Pureed diet yesterday. Still has tube feed going Hgb 7.2 Will check stool occult blood Consult GI for anemia with hgb 6s. Stool occult blood neg 05/16/21 EGD done today:gastritis,erythema Colonoscopy postponed to tomorrow Labs pending today 05/17 patient with sepsis, right knee septic arthritis, metabolic encephalopathy. She had anemia s/p PRBC transfused EGD yesterday revealed gastritis For colonoscopy today Resume pureed diet after colonoscopy For Ceftriaxone iv till 06/14/21 ID also recommends re-eval by Ortho I have entered reconsult for Thursday since Dr. buchanan is out sick and Dr. Valentin comes back on Thursday History Interval history: EGD done yesterday For colonoscopy today Hospitalist Physical - Physical exam Narrative exam: Gen: Not in acute distress, morbidly obese, HEENT:Normocephalic,atraumatic,has NG tube Neck:supple, No JVD Lungs:clear to auscultation bilaterally, no crackles, no wheeze Heart: S1 and S2 reg, no murmurs, rubs or gallop Abd:soft, non tender, non distended, normal bowel sounds Ext:No edema, no clubbing, no cyanosis, PICC line right Neuro:Awake,alert - Constitutional Vitals: Temp Pulse Resp BP Pulse Ox 98.1 F 100 H 16 184/92 98 05/17/21 04:50 05/17/21 04:50 05/17/21 04:50 05/17/21 04:50 05/17/21 04:50 General appearance: Present: no acute distress HEART Score - HEART Score Troponin: Troponin T < 0.010 ng/mL (0.00-0.029) 04/23/21 10:33 Results - Labs CBC & Chem 7: 05/16/21 10:09 05/16/21 10:09 Labs: Laboratory Last Values WBC 12.1 K/mm3 (4.5-11.0) H 05/16/21 10:09 RBC 3.03 M/mm3 (3.65-5.03) L 05/16/21 10:09 Hgb 7.6 gm/dl (10.1-14.3) L 05/16/21 10:09 Hct 25.8 % (30.3-42.9) L 05/16/21 10:09 MCV 85 fl (79-97) 05/16/21 10:09 MCH 25 pg (28-32) L 05/16/21 10:09 MCHC 30 % (30-34) 05/16/21 10:09 RDW 16.5 % (13.2-15.2) H 05/16/21 10:09 Plt Count 544 K/mm3 (140-440) H 05/16/21 10:09 Lymph % (Auto) 22.8 % (13.4-35.0) 05/07/21 Unknown [place] % (Auto) 4.4 % (0.0-7.3) 05/07/21 Unknown Eos % (Auto) 1.2 % (0.0-4.3) 05/07/21 Unknown Baso % (Auto) 0.9 % (0.0-1.8) 05/07/21 Unknown Lymph # (Auto) 1.7 K/mm3 (1.2-5.4) 05/07/21 Unknown [place] # (Auto) 0.3 K/mm3 (0.0-0.8) 05/07/21 Unknown Eos # (Auto) 0.1 K/mm3 (0.0-0.4) 05/07/21 Unknown Baso # (Auto) 0.1 K/mm3 (0.0-0.1) 05/07/21 Unknown Add Manual Diff Complete 04/25/21 08:10 Total Counted 100 04/25/21 08:10 Seg Neutrophils % 70.7 % (40.0-70.0) H 05/07/21 Unknown Seg Neuts % (Manual) 33.0 % (40.0-70.0) L 04/25/21 08:10 Band Neutrophils % 23.0 % 04/25/21 08:10 Lymphocytes % (Manual) 19.0 % (13.4-35.0) 04/25/21 08:10 Reactive Lymphs % (Man) 1.0 % 04/25/21 08:10 Monocytes % (Manual) 1.0 % (0.0-7.3) 04/25/21 08:10 Eosinophils % (Manual) 1.0 % (0.0-4.3) 04/25/21 08:10 Metamyelocytes % 3.0 % 04/23/21 10:33 Myelocytes % 22.0 % 04/25/21 08:10 Nucleated RBC % Not Reportable 04/25/21 08:10 Seg Neutrophils # 5.4 K/mm3 (1.8-7.7) 05/07/21 Unknown Seg Neutrophils # Man 1.9 K/mm3 (1.8-7.7) 04/25/21 08:10 Band Neutrophils # 1.3 K/mm3 04/25/21 08:10 Lymphocytes # (Manual) 1.1 K/mm3 (1.2-5.4) L 04/25/21 08:10 Abs React Lymphs (Man) 0.1 K/mm3 04/25/21 08:10 Monocytes # (Manual) 0.1 K/mm3 (0.0-0.8) 04/25/21 08:10 Eosinophils # (Manual) 0.1 K/mm3 (0.0-0.4) 04/25/21 08:10 Basophils # (Manual) 0.0 K/mm3 (0.0-0.1) 04/25/21 08:10 Metamyelocytes # 0.0 K/mm3 04/25/21 08:10 Myelocytes # 1.3 K/mm3 04/25/21 08:10 Promyelocytes # 0.0 K/mm3 04/25/21 08:10 Blast Cells # 0.0 K/mm3 04/25/21 08:10 WBC Morphology Not Reportable 04/25/21 08:10 Hypersegmented Neuts Not Reportable 04/25/21 08:10 Hyposegmented Neuts Not Reportable 04/25/21 08:10 Hypogranular Neuts Not Reportable 04/25/21 08:10 Smudge Cells Not Reportable 04/25/21 08:10 Toxic Granulation Not Reportable 04/25/21 08:10 Toxic Vacuolation Not Reportable 04/25/21 08:10 Dohle Bodies Not Reportable 04/25/21 08:10 Pelger-Huet Anomaly Not Reportable 04/25/21 08:10 Thieryr Rods Not Reportable 04/25/21 08:10 Platelet Estimate Consistent w auto 04/25/21 08:10 Clumped Platelets Not Reportable 04/25/21 08:10 Plt Clumps, EDTA Not Reportable 04/25/21 08:10 Large Platelets Not Reportable 04/25/21 08:10 Giant Platelets Not Reportable 04/25/21 08:10 Platelet Satelliting Not Reportable 04/25/21 08:10 Plt Morphology Comment Not Reportable 04/25/21 08:10 RBC Morphology Not Reportable 04/25/21 08:10 Dimorphic RBCs Not Reportable 04/25/21 08:10 Polychromasia Not Reportable 04/25/21 08:10 Hypochromasia 1+ 04/25/21 08:10 Poikilocytosis Not Reportable 04/25/21 08:10 Anisocytosis Not Reportable 04/25/21 08:10 Microcytosis Not Reportable 04/25/21 08:10 Macrocytosis Not Reportable 04/25/21 08:10 Spherocytes Not Reportable 04/25/21 08:10 Pappenheimer Bodies Not Reportable 04/25/21 08:10 Sickle Cells Not Reportable 04/25/21 08:10 Target Cells Not Reportable 04/25/21 08:10 Tear Drop Cells Not Reportable 04/25/21 08:10 Ovalocytes Not Reportable 04/25/21 08:10 Helmet Cells Not Reportable 04/25/21 08:10 [place] Bodies Not Reportable 04/25/21 08:10 [place] Rings Not Reportable 04/25/21 08:10 [place] Cells Not Reportable 04/25/21 08:10 Bite Cells Not Reportable 04/25/21 08:10 Crenated Cell Not Reportable 04/25/21 08:10 Elliptocytes Not Reportable 04/25/21 08:10 Acanthocytes (Spur) Not Reportable 04/25/21 08:10 Rouleaux Not Reportable 04/25/21 08:10 Hemoglobin C Crystals Not Reportable 04/25/21 08:10 Schistocytes Not Reportable 04/25/21 08:10 Malaria parasites Not Reportable 04/25/21 08:10 Juan Bodies Not Reportable 04/25/21 08:10 Hem Pathologist Commnt No 04/25/21 08:10 PT 15.8 Sec. (12.2-14.9) H 05/15/21 13:04 INR 1.14 (0.87-1.13) H 05/15/21 13:04 ABG pH 7.426 pH Units (7.350-7.450) 04/25/21 11:20 ABG pCO2 25.3 mm Hg 04/25/21 11:20 ABG pO2 73.2 mm Hg (80.0-90.0) L 04/25/21 11:20 ABG HCO3 16.2 mmol/L (20.0-26.0) L 04/25/21 11:20 ABG O2 Saturation 96.9 % (95.0-99.0) 04/25/21 11:20 ABG O2 Content 11.6 (0.0-44) 04/25/21 11:20 ABG Base Excess -7.1 mmol/L (-2.0-3.0) L 04/25/21 11:20 ABG Hemoglobin 8.7 gm/dl (12.0-16.0) L 04/25/21 11:20 ABG Carboxyhemoglobin 1.6 % (0.0-5.0) 04/25/21 11:20 ABG Methemoglobin 0.6 % (0.0-1.5) 04/25/21 11:20 VBG pH 7.180 (7.320-7.420) L* 04/23/21 10:33 Oxyhemoglobin 94.8 % (95.0-99.0) L 04/25/21 11:20 FiO2 28 % 04/25/21 11:20 Sodium 136 mmol/L (137-145) L 05/16/21 10:09 Potassium 4.2 mmol/L (3.6-5.0) 05/16/21 10:09 Chloride 99.1 mmol/L (98-107) 05/16/21 10:09 Carbon Dioxide 23 mmol/L (22-30) 05/16/21 10:09 Anion Gap 18 mmol/L 05/16/21 10:09 BUN 19 mg/dL (7-17) H 05/16/21 10:09 Creatinine 0.8 mg/dL (0.6-1.2) 05/16/21 10:09 Estimated GFR > 60 ml/min 05/16/21 10:09 BUN/Creatinine Ratio 24 % 05/16/21 10:09 Glucose 174 mg/dL (65-100) H 05/16/21 10:09 POC Glucose 150 mg/dL (70-105) H 05/17/21 05:39 Hemoglobin A1c 18.3 % (4-6) H 04/24/21 04:16 Lactic Acid 1.70 mmol/L (0.7-2.0) 04/26/21 05:02 Uric Acid 7.5 mg/dL (3.5-7.6) 04/24/21 12:14 Calcium 8.1 mg/dL (8.4-10.2) L 05/16/21 10:09 Phosphorus 4.50 mg/dL (2.5-4.5) 04/30/21 04:41 Magnesium 2.10 mg/dL (1.7-2.3) 05/03/21 07:05 Total Bilirubin 0.50 mg/dL (0.1-1.2) 04/30/21 04:41 AST 12 units/L (5-40) 04/30/21 04:41 ALT 7 units/L (7-56) 04/30/21 04:41 Alkaline Phosphatase 171 units/L (35-129) H 04/30/21 04:41 Ammonia 37.0 umol/L (25-60) 04/23/21 10:33 Total Creatine Kinase 83 units/L (30-135) 04/23/21 10:33 Troponin T < 0.010 ng/mL (0.00-0.029) 04/23/21 10:33 C-Reactive Protein 24.30 mg/dL (0.00-1.30) H 04/24/21 18:24 Total Protein 6.1 g/dL (6.3-8.2) L 04/30/21 04:41 Albumin 1.4 g/dL (3.9-5) L 04/30/21 04:41 Albumin/Globulin Ratio 0.3 % 04/30/21 04:41 Procalcitonin 21.10 ng/mL (<0.15) 04/24/21 12:14 TSH 1.400 mlU/mL (0.270-4.200) 04/23/21 10:33 Urine Color Katie (Yellow) 04/27/21 16:16 Urine Turbidity Cloudy (Clear) 04/27/21 16:16 Urine pH 5.0 (5.0-7.0) 04/27/21 16:16 Ur Specific [place] 1.014 (1.003-1.030) 04/27/21 16:16 Urine Protein <15 mg/dl mg/dL (Negative) 04/27/21 16:16 Urine Glucose (UA) >=500 mg/dL (Negative) 04/27/21 16:16 Urine Ketones Neg mg/dL (Negative) 04/27/21 16:16 Urine Blood Neg (Negative) 04/27/21 16:16 Urine Nitrite Neg (Negative) 04/27/21 16:16 Urine Bilirubin Neg (Negative) 04/27/21 16:16 Urine Urobilinogen 2.0 mg/dL (<2.0) 04/27/21 16:16 Ur Leukocyte Esterase Neg (Negative) 04/27/21 16:16 Urine WBC (Auto) 1.0 /HPF (0.0-6.0) 04/27/21 16:16 Urine RBC (Auto) 1.0 /HPF (0.0-6.0) 04/27/21 16:16 U Epithel Cells (Auto) < 1.0 /HPF (0-13.0) 04/24/21 08:40 Urine Bacteria (Auto) 1+ /HPF (Negative) 04/27/21 16:16 Amorphous Crystals Few 04/27/21 16:16 Urine Yeast (Budding) 3+ /HPF 04/27/21 16:16 Vancomycin Trough 38.2 ug/mL (5.0-20.0) H 04/26/21 19:27 Coronavirus (PCR) Negative (Negative) 04/25/21 Unknown Blood Type A POSITIVE 05/13/21 13:20 Antibody Screen Negative 05/13/21 13:20 Crossmatch See Detail 05/13/21 13:20 Sanchez/IV: Voiding Method Indwelling Catheter Active Medications - Current Medications Current Medications: Generic Name Dose Route Start Last Admin Trade Name Freq PRN Reason Stop Dose Admin Acetaminophen 650 mg 04/23/21 11:54 05/13/21 17:29 Acetaminophen 325 Mg Tab PO 650 mg Q6H PRN Administration Pain MILD(1-3)/Fever >100.5/SMITH Albuterol 2.5 mg 05/02/21 12:56 05/07/21 04:22 Albuterol 2.5 Mg/3 Ml Nebu IH 2.5 mg Q4HRT PRN Administration Shortness Of Breath Lipase/Protease/Amylase 1 each 05/06/21 16:05 Lipase 10,500/Protease 25,000/Amylase 43,750 (Units) Dr Rodriguez FEEDTUBE PRN PRN For Clogged Feeding Tube Dextrose 50 ml 04/26/21 14:00 05/15/21 16:00 Dextrose 50% In Water (25gm) 50 Ml Syringe IV 50 ml Q30MIN PRN Administration Hypoglycemia Protocol Hydromorphone HCl 0.5 mg 04/23/21 11:54 05/12/21 01:19 Hydromorphone 1 Mg/1 Ml Inj IV 0.5 mg Q23H PRN Administration Pain , Severe (7-10) Cefazolin Sodium 2 gm/ Sodium 100 mls @ 200 mls/hr 05/02/21 14:00 05/17/21 01:32 Chloride IV 06/14/21 20:29 200 mls/hr Q6H AMIRA Administration Protocol Sodium Chloride 1,000 mls @ 50 mls/hr 05/16/21 09:00 05/16/21 13:47 Nacl 0.9% 1000 Ml IV 50 mls/hr DIRECT AMIRA Administration Insulin Human Isoph/Insulin Regular 10 unit 05/16/21 08:00 05/16/21 17:36 Insulin Nph/Regular 70/30 Inj SUB-Q 10 unit BIDDIAB AMIRA Administration Insulin Human Lispro 0 unit 04/29/21 12:00 05/17/21 05:42 Insulin Lispro 100 Unit/Ml SUB-Q Not Given Q6HR AMIRA Protocol Lansoprazole 30 mg 05/16/21 11:00 05/16/21 11:40 Lansoprazole 30 Mg Solutab FEEDTUBE 30 mg QDAY AMIRA Administration Metoclopramide HCl 5 mg 05/08/21 08:00 05/16/21 21:34 Metoclopramide 10 Mg/10 Ml Oral Liqd FEEDTUBE 5 mg ACHS AMIRA Administration Morphine Sulfate 2 mg 05/03/21 18:59 05/15/21 13:43 Morphine 2 Mg/1 Ml Inj IV 2 mg Q4H PRN Administration Pain, Moderate (4-6) Morphine Sulfate 4 mg 05/03/21 18:59 05/16/21 18:07 Morphine 4 Mg/1 Ml Inj IV 4 mg Q4H PRN Administration Pain , Severe (7-10) Oxycodone/Acetaminophen 1 tab 04/23/21 11:54 05/15/21 21:26 Oxycodone /Acetaminophen 5-325mg Tab PO 1 tab Q16H PRN Administration Pain, Moderate (4-6) Polyethylene Glycol/Electrolytes 4,000 ml 05/16/21 18:00 05/16/21 19:30 Polyethylene Glycol/Elect Soln 4000 Ml NGTUBE 4,000 ml ONCE@1800 AMIRA Administration Senna 17.2 mg 04/25/21 22:00 05/16/21 22:36 Sennosides 8.6 Mg Tab PO Not Given QHS AMIRA Simple Syrup 15 ml 05/06/21 16:05 Simple Syrup 15 Ml FEEDTUBE PRN PRN Hypoglycemia Simple Syrup 30 ml 05/06/21 16:05 Simple Syrup 15 Ml FEEDTUBE PRN PRN Hypoglycemia Sodium Bicarbonate 325 mg 05/06/21 16:05 Sodium Bicarbonate 325 Mg Tab FEEDTUBE PRN PRN For Clogged Feeding Tube Sodium Chloride 10 ml 04/23/21 22:00 05/16/21 23:06 Sodium Chloride 0.9% 10 Ml Flush Syringe IV Not Given BID AMIRA Sodium Chloride 10 ml 04/23/21 11:54 04/24/21 11:15 Sodium Chloride 0.9% 10 Ml Flush Syringe IV 10 ml PRN PRN Administration LINE FLUSH Nutrition/Malnutrition Assess - Dietary Evaluation Nutrition/Malnutrition Findings: Nutrition Notes Start: 04/26/21 0 9:53 Freq: Status: Active Protocol: Document 05/13/21 12:20 JAIMIE (Rec: 05/13/21 12:38 JAIMIE [id number]) Nutrition Notes Current Diet TF-Vital AF 1.2 Daniel @ 65 ml/hr (since D 05/06). Height 5 ft 8 in Weight 158.6 kg [place] Body Weight (kg) 63.63 BMI 53.1 Weight change and time frame No body weight change reported . Weight Status Morbidly Obese Subjective/Other Information RD consult for routine F/U on TF tolerance. No body weight change reported . TF well tolerated, continue as is. Percent of energy/protein needs met: Prescribed TF-Vital AF 1.2 Daniel @ 65 ml/hr provides for energy/protein needs (1,804 Kcal/77 g) 107% Kcal; 84% AA, during LOS. Nutrition Intervention Nutrition Support: Continue Vital AF 1.2 @ 65 ml/ hr with 100 ml water flush Q 4h. Kcal 1,860 Protein (gm) 116 Carbohydrates (gm) 171 Fat (gm) 84 Fluid (mL) 1,257 Fiber (gm) 8 % RDI: 107% Kcal; 84% AA. Goal #1 Provide at least 75% of energy /protein needs through Enteral Feeding during LOS. Goal #2 Maintain body weight within +/ -3% of admission body weight during LOS. Goal #3 Reach and maintain acceptable chemistry lab values during LOS. Follow-Up By: 05/20/21 Additional Comments Continue monitoring TF tolerance, Hydration, and BM.
--- NOTE | 2021-05-17 08:45 | Operative Report ---
Operative Report Operative Report: DOS: 05/17/21 SURGEON: Raghav Bain MD COLONOSCOPY with snare polypectomy REPORT PREOPERATIVE AND POSTOPERATIVE DIAGNOSIS: Anemia due to gastrointestinal blood loss DESCRIPTION OF PROCEDURE: The colonoscope was passed to the terminal ileum as identified by the ileal tissue. Scope was carefully withdrawn. At the end of procedure, the scope was cleaned using normal technique. Vital signs monitored continuously throughout. SEDATION: Provided by Anesthesiology Services. Quality of the prep was poor COMPLICATIONS: None. ESTIMATED BLOOD LOSS: minimal FINDINGS: * Normal terminal ileum * No blood throughout the entire exam * Moderate amount of thick liquid stool scattered throughout the colon limiting views, and some large stool balls in the left colon severely limiting views of portions of the colon * 7 mm semisessile polyp in the cecum removed by cold snare polypectomy RECOMMENDATIONS: * No clear lower GI source for blood loss and no overt bleeding. * Given today's exam it is possible that the anemia, if due to GI source, was due to the gastritis. * Therefore will resume patient's diet, trend hemoglobin and continue PPI; GI will sign off, if patient with overt bleeding please call us back Quality of prep inadequate for screening purposes patient will require another colonoscopy in the future with adequate prep to ensure no other missed polyps
--- NOTE | 2021-05-17 09:03 | Anesthesia Day of Surgery ---
Anesthesia Day of Surgery - Day of Surgery Patient Examined: Yes Patient H&P Reviewed: Yes Patient is NPO: Yes
[2021-05-17] MEDS: INSULIN NPH/REGULAR 70/30 INJ SUB-Q SCH ×2 (09:56→17:57)
[2021-05-17] MEDS: LANSOPRAZOLE 30 MG SOLUTAB FEEDTUBE SCH (10:59)
[2021-05-17] MEDS: METOCLOPRAMIDE 10 MG/10 ML ORAL LIQD FEEDTUBE SCH ×4 (11:56→22:56)
--- NOTE | 2021-05-17 12:51 | Progress Note ---
Assessment and Plan Acute metabolic acidosis Diabetic ketoacidosis Acute toxic metabolic encephalopathy Obesity Osteoarthritis Hypercalcemia - G.I. evaluation ongoing - continue aspiration precautions (HOB > 40 degrees) - continue care as below otherwise; - continue accuchecks with glycemic control per SSI for target blood glucose of < 180 mg/dL; avoid hypoglycemia - antiinfective's per ID team recommendations (Unasyn) - wean supplemental oxygen for target O2 sat's > 90% acutely - prn bronchodilators with pulmonary hygiene per RT - avoid nephrotoxins, renally dose all medications - avoid benzodiazepine's, reduce the possibility of delirium - prn analgesia per pain score - Maintenance of sleep-wake cycle, avoid delirium - G.I. & VTE prophylaxis - PT/OT/ROM exercises - continue mobility protocols for pressure ulcer prophylaxis - Monitor hemodynamics closely - continue other care per attending / other consultants - discharge planning ongoing concurrently .... Re-evaluate in am & prn Subjective Date of service: 05/17/21 Principal diagnosis: HAGMA; DKA; AMS; Obesity; Osteoarthritis; Hypercalcemia Interval history: Patient is seen today for: Acute metabolic acidosis; Diabetic ketoacidosis; Acute toxic metabolic encephalopathy; Obesity; Osteoarthritis; Hypercalcemia Seen and examined at bedside; 24hour events reviewed; nursing and respiratory care staff consulted; no adverse overnight events reported to me; resting peacefully in bed; s/p Colonoscopy; no bleeder seen; no increased oxygen requirements Objective Vital Signs - 12hr 05/17/21 05/17/21 05/17/21 04:50 07:55 08:41 Temperature 98.1 F 98.1 F 98.5 F Pulse Rate 100 H 96 H 92 H Respiratory 16 15 23 Rate Blood Pressure 184/92 192/91 122/79 O2 Sat by Pulse 98 98 99 Oximetry 05/17/21 05/17/21 09:00 09:15 Temperature Pulse Rate 91 H 93 H Respiratory 23 15 Rate Blood Pressure 129/84 138/87 O2 Sat by Pulse 100 100 Oximetry Constitutional: no acute distress, alert Eyes: non-icteric ENT: oropharynx moist Neck: supple, no lymphadenopathy, no JVD Effort: normal Ascultation: Bilateral: diminished breath sounds, rhonchi (scant) Percussion: Bilateral: not dull Cardiovascular: regular rate and rhythm, other (S1,S2) Gastrointestinal: hypoactive bowel sounds, soft, non-tender, non-distended (protuberant) Integumentary: rash (perineal) Extremities: no cyanosis, no edema, pulses normal, no ischemia or petechiae, other (Right knee surgery.) Neurologic: normal mental status, non-focal exam, pupils equal and round, other Psychiatric: mood appropriate, affect normal CBC and BMP: 05/18/21 05:10 05/18/21 05:10 ABG, PT/INR, D-dimer: ABG ABG pH 7.426 pH Units (7.350-7.450) 04/25/21 11:20 ABG pCO2 25.3 mm Hg 04/25/21 11:20 ABG pO2 73.2 mm Hg (80.0-90.0) L 04/25/21 11:20 ABG O2 Saturation 96.9 % (95.0-99.0) 04/25/21 11:20 PT/INR, D-dimer PT 15.8 Sec. (12.2-14.9) H 05/15/21 13:04 INR 1.14 (0.87-1.13) H 05/15/21 13:04 Abnormal lab findings: Abnormal Labs 04/23/21 04/23/21 04/23/21 10:33 10:33 10:33 WBC RBC Hgb Hct MCV MCH 26 L RDW Plt Count Lymph % (Auto) Seg Neutrophils % Seg Neuts % (Manual) Lymphocytes % (Manual) 7.0 L Nucleated RBC % 2.0 H Seg Neutrophils # Lymphocytes # (Manual) 0.5 L PT INR ABG pO2 ABG HCO3 ABG Base Excess ABG Hemoglobin VBG pH 7.180 L* Oxyhemoglobin Sodium 122 L Potassium 3.0 L Chloride 84.8 L Carbon Dioxide 6 L* BUN 49 H Creatinine 1.4 H Glucose 775 H* POC Glucose Hemoglobin A1c Lactic Acid Calcium 12.2 H* Phosphorus Magnesium Alkaline Phosphatase 130 H C-Reactive Protein Total Protein Albumin 2.9 L Vancomycin Trough Crossmatch 04/23/21 04/23/21 04/23/21 10:40 12:44 14:01 WBC RBC Hgb Hct MCV MCH RDW Plt Count Lymph % (Auto) Seg Neutrophils % Seg Neuts % (Manual) Lymphocytes % (Manual) Nucleated RBC % Seg Neutrophils # Lymphocytes # (Manual) PT INR ABG pO2 ABG HCO3 ABG Base Excess ABG Hemoglobin VBG pH Oxyhemoglobin Sodium Potassium Chloride Carbon Dioxide BUN Creatinine Glucose POC Glucose > 600 H 550 H Hemoglobin A1c Lactic Acid Calcium Phosphorus 1.50 L Magnesium Alkaline Phosphatase C-Reactive Protein Total Protein Albumin Vancomycin Trough Crossmatch 04/23/21 04/23/21 04/23/21 14:01 14:04 14:56 WBC RBC Hgb Hct MCV MCH RDW Plt Count Lymph % (Auto) Seg Neutrophils % Seg Neuts % (Manual) Lymphocytes % (Manual) Nucleated RBC % Seg Neutrophils # Lymphocytes # (Manual) PT INR ABG pO2 ABG HCO3 ABG Base Excess ABG Hemoglobin VBG pH Oxyhemoglobin Sodium 125 L Potassium 3.0 L Chloride 89.2 L Carbon Dioxide 6 L* BUN 45 H Creatinine 1.3 H Glucose 594 H* POC Glucose 518 H 425 H Hemoglobin A1c Lactic Acid Calcium 10.9 H Phosphorus Magnesium Alkaline Phosphatase C-Reactive Protein Total Protein Albumin Vancomycin Trough Crossmatch 04/23/21 04/23/21 04/23/21 15:43 15:48 17:21 WBC RBC Hgb Hct MCV MCH RDW Plt Count Lymph % (Auto) Seg Neutrophils % Seg Neuts % (Manual) Lymphocytes % (Manual) Nucleated RBC % Seg Neutrophils # Lymphocytes # (Manual) PT INR ABG pO2 ABG HCO3 ABG Base Excess ABG Hemoglobin VBG pH Oxyhemoglobin Sodium 131 L Potassium 2.9 L* Chloride Carbon Dioxide 8 L* BUN 39 H Creatinine Glucose 434 H POC Glucose 410 H 407 H Hemoglobin A1c Lactic Acid Calcium 10.3 H Phosphorus Magnesium Alkaline Phosphatase C-Reactive Protein Total Protein Albumin Vancomycin Trough Crossmatch 04/23/21 04/23/21 04/23/21 18:07 19:13 19:54 WBC RBC Hgb Hct MCV MCH RDW Plt Count Lymph % (Auto) Seg Neutrophils % Seg Neuts % (Manual) Lymphocytes % (Manual) Nucleated RBC % Seg Neutrophils # Lymphocytes # (Manual) PT INR ABG pO2 ABG HCO3 ABG Base Excess ABG Hemoglobin VBG pH Oxyhemoglobin Sodium 131 L Potassium 3.1 L Chloride 95.9 L Carbon Dioxide 7 L* BUN 39 H Creatinine Glucose 391 H POC Glucose 428 H 350 H Hemoglobin A1c Lactic Acid Calcium 11.2 H Phosphorus Magnesium Alkaline Phosphatase C-Reactive Protein Total Protein Albumin Vancomycin Trough Crossmatch 12/07/21 12/07/21 12/07/21 19:54 20:12 20:59 WBC RBC Hgb Hct MCV MCH RDW Plt Count Lymph % (Auto) Seg Neutrophils % Seg Neuts % (Manual) Lymphocytes % (Manual) Nucleated RBC % Seg Neutrophils # Lymphocytes # (Manual) PT INR ABG pO2 ABG HCO3 ABG Base Excess ABG Hemoglobin VBG pH Oxyhemoglobin Sodium Potassium Chloride Carbon Dioxide BUN Creatinine Glucose POC Glucose 365 H 286 H Hemoglobin A1c Lactic Acid Calcium Phosphorus 1.10 L D Magnesium Alkaline Phosphatase C-Reactive Protein Total Protein Albumin Vancomycin Trough Crossmatch 04/23/21 04/23/21 04/23/21 22:05 22:23 22:59 WBC RBC Hgb Hct MCV MCH RDW Plt Count Lymph % (Auto) Seg Neutrophils % Seg Neuts % (Manual) Lymphocytes % (Manual) Nucleated RBC % Seg Neutrophils # Lymphocytes # (Manual) PT INR ABG pO2 ABG HCO3 ABG Base Excess ABG Hemoglobin VBG pH Oxyhemoglobin Sodium 135 L Potassium 3.2 L Chloride Carbon Dioxide 10 L BUN 35 H Creatinine Glucose 300 H POC Glucose 257 H 238 H Hemoglobin A1c Lactic Acid Calcium 11.6 H Phosphorus Magnesium Alkaline Phosphatase C-Reactive Protein Total Protein Albumin Vancomycin Trough Crossmatch 04/23/21 04/24/21 04/24/21 23:57 00:10 00:56 WBC RBC Hgb Hct MCV MCH RDW Plt Count Lymph % (Auto) Seg Neutrophils % Seg Neuts % (Manual) Lymphocytes % (Manual) Nucleated RBC % Seg Neutrophils # Lymphocytes # (Manual) PT INR ABG pO2 ABG HCO3 ABG Base Excess ABG Hemoglobin VBG pH Oxyhemoglobin Sodium Potassium 3.2 L Chloride Carbon Dioxide 13 L BUN 33 H Creatinine Glucose 267 H POC Glucose 223 H 254 H Hemoglobin A1c Lactic Acid Calcium 11.2 H Phosphorus 1.20 L Magnesium Alkaline Phosphatase C-Reactive Protein Total Protein Albumin Vancomycin Trough Crossmatch 04/24/21 04/24/21 04/24/21 01:58 02:58 03:57 WBC RBC Hgb Hct MCV MCH RDW Plt Count Lymph % (Auto) Seg Neutrophils % Seg Neuts % (Manual) Lymphocytes % (Manual) Nucleated RBC % Seg Neutrophils # Lymphocytes # (Manual) PT INR ABG pO2 ABG HCO3 ABG Base Excess ABG Hemoglobin VBG pH Oxyhemoglobin Sodium Potassium Chloride Carbon Dioxide BUN Creatinine Glucose POC Glucose 264 H 251 H 200 H Hemoglobin A1c Lactic Acid Calcium Phosphorus Magnesium Alkaline Phosphatase C-Reactive Protein Total Protein Albumin Vancomycin Trough Crossmatch 04/24/21 04/24/21 04/24/21 04:16 04:16 04:16 WBC RBC Hgb Hct MCV MCH 26 L RDW Plt Count Lymph % (Auto) Seg Neutrophils % Seg Neuts % (Manual) Lymphocytes % (Manual) Nucleated RBC % Seg Neutrophils # Lymphocytes # (Manual) PT INR ABG pO2 ABG HCO3 ABG Base Excess ABG Hemoglobin VBG pH Oxyhemoglobin Sodium Potassium Chloride 108.0 H Carbon Dioxide 13 L BUN 31 H Creatinine Glucose 243 H POC Glucose Hemoglobin A1c 18.3 H Lactic Acid Calcium 10.9 H Phosphorus 1.80 L D Magnesium Alkaline Phosphatase C-Reactive Protein Total Protein Albumin Vancomycin Trough Crossmatch 04/24/21 04/24/21 04/24/21 04:59 05:53 06:51 WBC RBC Hgb Hct MCV MCH RDW Plt Count Lymph % (Auto) Seg Neutrophils % Seg Neuts % (Manual) Lymphocytes % (Manual) Nucleated RBC % Seg Neutrophils # Lymphocytes # (Manual) PT INR ABG pO2 ABG HCO3 ABG Base Excess ABG Hemoglobin VBG pH Oxyhemoglobin Sodium Potassium Chloride Carbon Dioxide BUN Creatinine Glucose POC Glucose 208 H 213 H 161 H Hemoglobin A1c Lactic Acid Calcium Phosphorus Magnesium Alkaline Phosphatase C-Reactive Protein Total Protein Albumin Vancomycin Trough Crossmatch 04/24/21 04/24/21 04/24/21 07:58 09:21 10:06 WBC RBC Hgb Hct MCV MCH RDW Plt Count Lymph % (Auto) Seg Neutrophils % Seg Neuts % (Manual) Lymphocytes % (Manual) Nucleated RBC % Seg Neutrophils # Lymphocytes # (Manual) PT INR ABG pO2 ABG HCO3 ABG Base Excess ABG Hemoglobin VBG pH Oxyhemoglobin Sodium Potassium Chloride Carbon Dioxide BUN Creatinine Glucose POC Glucose 149 H 178 H 164 H Hemoglobin A1c Lactic Acid Calcium Phosphorus Magnesium Alkaline Phosphatase C-Reactive Protein Total Protein Albumin Vancomycin Trough Crossmatch 04/24/21 04/24/21 04/24/21 11:03 12:07 12:14 WBC RBC Hgb Hct MCV MCH RDW Plt Count Lymph % (Auto) Seg Neutrophils % Seg Neuts % (Manual) Lymphocytes % (Manual) Nucleated RBC % Seg Neutrophils # Lymphocytes # (Manual) PT INR ABG pO2 ABG HCO3 ABG Base Excess ABG Hemoglobin VBG pH Oxyhemoglobin Sodium Potassium 3.2 L Chloride 108.7 H Carbon Dioxide 16 L BUN 24 H Creatinine Glucose 160 H POC Glucose 157 H 142 H Hemoglobin A1c Lactic Acid Calcium 10.5 H Phosphorus 0.70 L* D Magnesium Alkaline Phosphatase C-Reactive Protein Total Protein Albumin Vancomycin Trough Crossmatch 04/24/21 04/24/21 04/24/21 12:14 13:02 14:00 WBC RBC Hgb Hct MCV MCH RDW Plt Count Lymph % (Auto) Seg Neutrophils % Seg Neuts % (Manual) Lymphocytes % (Manual) Nucleated RBC % Seg Neutrophils # Lymphocytes # (Manual) PT INR ABG pO2 ABG HCO3 ABG Base Excess ABG Hemoglobin VBG pH Oxyhemoglobin Sodium Potassium Chloride Carbon Dioxide BUN Creatinine Glucose POC Glucose 138 H 150 H Hemoglobin A1c Lactic Acid 2.50 H* Calcium Phosphorus Magnesium Alkaline Phosphatase C-Reactive Protein Total Protein Albumin Vancomycin Trough Crossmatch 04/24/21 04/24/21 04/24/21 15:14 16:07 17:11 WBC RBC Hgb Hct MCV MCH RDW Plt Count Lymph % (Auto) Seg Neutrophils % Seg Neuts % (Manual) Lymphocytes % (Manual) Nucleated RBC % Seg Neutrophils # Lymphocytes # (Manual) PT INR ABG pO2 ABG HCO3 ABG Base Excess ABG Hemoglobin VBG pH Oxyhemoglobin Sodium Potassium Chloride Carbon Dioxide BUN Creatinine Glucose POC Glucose 145 H 148 H 156 H Hemoglobin A1c Lactic Acid Calcium Phosphorus Magnesium Alkaline Phosphatase C-Reactive Protein Total Protein Albumin Vancomycin Trough Crossmatch 04/24/21 04/24/21 04/24/21 18:12 18:24 19:55 WBC RBC Hgb Hct MCV MCH RDW Plt Count Lymph % (Auto) Seg Neutrophils % Seg Neuts % (Manual) Lymphocytes % (Manual) Nucleated RBC % Seg Neutrophils # Lymphocytes # (Manual) PT INR ABG pO2 ABG HCO3 ABG Base Excess ABG Hemoglobin VBG pH Oxyhemoglobin Sodium Potassium Chloride 109.2 H Carbon Dioxide 15 L BUN 22 H Creatinine Glucose 159 H POC Glucose 153 H 176 H Hemoglobin A1c Lactic Acid Calcium Phosphorus 1.80 L D Magnesium Alkaline Phosphatase C-Reactive Protein 24.30 H Total Protein Albumin Vancomycin Trough Crossmatch 04/24/21 04/24/21 04/24/21 20:55 22:04 23:02 WBC RBC Hgb Hct MCV MCH RDW Plt Count Lymph % (Auto) Seg Neutrophils % Seg Neuts % (Manual) Lymphocytes % (Manual) Nucleated RBC % Seg Neutrophils # Lymphocytes # (Manual) PT INR ABG pO2 ABG HCO3 ABG Base Excess ABG Hemoglobin VBG pH Oxyhemoglobin Sodium Potassium Chloride Carbon Dioxide BUN Creatinine Glucose POC Glucose 146 H 169 H Hemoglobin A1c Lactic Acid 3.10 H* Calcium Phosphorus Magnesium Alkaline Phosphatase C-Reactive Protein Total Protein Albumin Vancomycin Trough Crossmatch 04/24/21 04/25/21 04/25/21 23:13 00:05 01:28 WBC RBC Hgb Hct MCV MCH RDW Plt Count Lymph % (Auto) Seg Neutrophils % Seg Neuts % (Manual) Lymphocytes % (Manual) Nucleated RBC % Seg Neutrophils # Lymphocytes # (Manual) PT INR ABG pO2 ABG HCO3 ABG Base Excess ABG Hemoglobin VBG pH Oxyhemoglobin Sodium Potassium Chloride Carbon Dioxide BUN Creatinine Glucose POC Glucose 144 H 150 H 142 H Hemoglobin A1c Lactic Acid Calcium Phosphorus Magnesium Alkaline Phosphatase C-Reactive Protein Total Protein Albumin Vancomycin Trough Crossmatch 04/25/21 04/25/21 04/25/21 02:03 03:07 04:17 WBC RBC Hgb Hct MCV MCH RDW Plt Count Lymph % (Auto) Seg Neutrophils % Seg Neuts % (Manual) Lymphocytes % (Manual) Nucleated RBC % Seg Neutrophils # Lymphocytes # (Manual) PT INR ABG pO2 ABG HCO3 ABG Base Excess ABG Hemoglobin VBG pH Oxyhemoglobin Sodium Potassium Chloride Carbon Dioxide BUN Creatinine Glucose POC Glucose 148 H 161 H 158 H Hemoglobin A1c Lactic Acid Calcium Phosphorus Magnesium Alkaline Phosphatase C-Reactive Protein Total Protein Albumin Vancomycin Trough Crossmatch 04/25/21 04/25/21 04/25/21 05:48 06:52 07:58 WBC RBC Hgb Hct MCV MCH RDW Plt Count Lymph % (Auto) Seg Neutrophils % Seg Neuts % (Manual) Lymphocytes % (Manual) Nucleated RBC % Seg Neutrophils # Lymphocytes # (Manual) PT INR ABG pO2 ABG HCO3 ABG Base Excess ABG Hemoglobin VBG pH Oxyhemoglobin Sodium Potassium Chloride Carbon Dioxide BUN Creatinine Glucose POC Glucose 136 H 137 H 143 H Hemoglobin A1c Lactic Acid Calcium Phosphorus Magnesium Alkaline Phosphatase C-Reactive Protein Total Protein Albumin Vancomycin Trough Crossmatch 04/25/21 04/25/21 04/25/21 08:10 08:10 08:10 WBC RBC Hgb 9.5 L Hct 28.8 L MCV MCH 26 L RDW Plt Count Lymph % (Auto) Seg Neutrophils % Seg Neuts % (Manual) 33.0 L Lymphocytes % (Manual) Nucleated RBC % Seg Neutrophils # Lymphocytes # (Manual) 1.1 L PT INR ABG pO2 ABG HCO3 ABG Base Excess ABG Hemoglobin VBG pH Oxyhemoglobin Sodium Potassium 3.3 L Chloride 109.0 H Carbon Dioxide 16 L BUN 23 H Creatinine Glucose 151 H POC Glucose Hemoglobin A1c Lactic Acid 2.10 H* Calcium Phosphorus 2.20 L D Magnesium 1.60 L Alkaline Phosphatase C-Reactive Protein Total Protein Albumin Vancomycin Trough Crossmatch 04/25/21 04/25/21 04/25/21 08:53 09:59 11:20 WBC RBC Hgb Hct MCV MCH RDW Plt Count Lymph % (Auto) Seg Neutrophils % Seg Neuts % (Manual) Lymphocytes % (Manual) Nucleated RBC % Seg Neutrophils # Lymphocytes # (Manual) PT INR ABG pO2 ABG HCO3 ABG Base Excess ABG Hemoglobin VBG pH Oxyhemoglobin Sodium Potassium Chloride Carbon Dioxide BUN Creatinine Glucose POC Glucose 132 H 141 H 141 H Hemoglobin A1c Lactic Acid Calcium Phosphorus Magnesium Alkaline Phosphatase C-Reactive Protein Total Protein Albumin Vancomycin Trough Crossmatch 04/25/21 04/25/21 04/25/21 11:20 12:04 12:26 WBC RBC Hgb Hct MCV MCH RDW Plt Count Lymph % (Auto) Seg Neutrophils % Seg Neuts % (Manual) Lymphocytes % (Manual) Nucleated RBC % Seg Neutrophils # Lymphocytes # (Manual) PT INR ABG pO2 73.2 L ABG HCO3 16.2 L ABG Base Excess -7.1 L ABG Hemoglobin 8.7 L VBG pH Oxyhemoglobin 94.8 L Sodium Potassium 3.4 L Chloride 109.5 H Carbon Dioxide 14 L BUN 21 H Creatinine Glucose 155 H POC Glucose 129 H Hemoglobin A1c Lactic Acid Calcium Phosphorus 1.90 L Magnesium 1.60 L Alkaline Phosphatase C-Reactive Protein Total Protein Albumin Vancomycin Trough Crossmatch 04/25/21 04/25/21 04/25/21 13:04 13:58 15:09 WBC RBC Hgb Hct MCV MCH RDW Plt Count Lymph % (Auto) Seg Neutrophils % Seg Neuts % (Manual) Lymphocytes % (Manual) Nucleated RBC % Seg Neutrophils # Lymphocytes # (Manual) PT INR ABG pO2 ABG HCO3 ABG Base Excess ABG Hemoglobin VBG pH Oxyhemoglobin Sodium Potassium Chloride Carbon Dioxide BUN Creatinine Glucose POC Glucose 135 H 140 H 134 H Hemoglobin A1c Lactic Acid Calcium Phosphorus Magnesium Alkaline Phosphatase C-Reactive Protein Total Protein Albumin Vancomycin Trough Crossmatch 04/25/21 04/25/21 04/25/21 16:00 18:56 18:58 WBC RBC Hgb Hct MCV MCH RDW Plt Count Lymph % (Auto) Seg Neutrophils % Seg Neuts % (Manual) Lymphocytes % (Manual) Nucleated RBC % Seg Neutrophils # Lymphocytes # (Manual) PT INR ABG pO2 ABG HCO3 ABG Base Excess ABG Hemoglobin VBG pH Oxyhemoglobin Sodium Potassium Chloride Carbon Dioxide BUN Creatinine Glucose POC Glucose 135 H 170 H Hemoglobin A1c Lactic Acid 2.10 H* Calcium Phosphorus Magnesium Alkaline Phosphatase C-Reactive Protein Total Protein Albumin Vancomycin Trough Crossmatch 04/25/21 04/25/21 04/25/21 18:58 19:52 20:53 WBC RBC Hgb Hct MCV MCH RDW Plt Count Lymph % (Auto) Seg Neutrophils % Seg Neuts % (Manual) Lymphocytes % (Manual) Nucleated RBC % Seg Neutrophils # Lymphocytes # (Manual) PT INR ABG pO2 ABG HCO3 ABG Base Excess ABG Hemoglobin VBG pH Oxyhemoglobin Sodium Potassium Chloride 110.1 H Carbon Dioxide 13 L BUN 23 H Creatinine Glucose 206 H POC Glucose 162 H 171 H Hemoglobin A1c Lactic Acid Calcium Phosphorus Magnesium 2.40 H Alkaline Phosphatase C-Reactive Protein Total Protein Albumin Vancomycin Trough Crossmatch 04/25/21 04/25/21 04/26/21 21:54 22:53 00:03 WBC RBC Hgb Hct MCV MCH RDW Plt Count Lymph % (Auto) Seg Neutrophils % Seg Neuts % (Manual) Lymphocytes % (Manual) Nucleated RBC % Seg Neutrophils # Lymphocytes # (Manual) PT INR ABG pO2 ABG HCO3 ABG Base Excess ABG Hemoglobin VBG pH Oxyhemoglobin Sodium Potassium Chloride Carbon Dioxide BUN Creatinine Glucose POC Glucose 139 H 140 H 129 H Hemoglobin A1c Lactic Acid Calcium Phosphorus Magnesium Alkaline Phosphatase C-Reactive Protein Total Protein Albumin Vancomycin Trough Crossmatch 04/26/21 04/26/21 04/26/21 00:38 01:00 01:56 WBC RBC Hgb Hct MCV MCH RDW Plt Count Lymph % (Auto) Seg Neutrophils % Seg Neuts % (Manual) Lymphocytes % (Manual) Nucleated RBC % Seg Neutrophils # Lymphocytes # (Manual) PT INR ABG pO2 ABG HCO3 ABG Base Excess ABG Hemoglobin VBG pH Oxyhemoglobin Sodium Potassium Chloride 112.6 H Carbon Dioxide 14 L BUN 22 H Creatinine Glucose 149 H POC Glucose 126 H 137 H Hemoglobin A1c Lactic Acid Calcium Phosphorus Magnesium 2.40 H Alkaline Phosphatase C-Reactive Protein Total Protein Albumin Vancomycin Trough Crossmatch 04/26/21 04/26/21 04/26/21 02:54 04:04 05:02 WBC RBC 3.44 L Hgb 8.9 L Hct 26.9 L MCV 78 L MCH 26 L RDW Plt Count Lymph % (Auto) Seg Neutrophils % Seg Neuts % (Manual) Lymphocytes % (Manual) Nucleated RBC % Seg Neutrophils # Lymphocytes # (Manual) PT INR ABG pO2 ABG HCO3 ABG Base Excess ABG Hemoglobin VBG pH Oxyhemoglobin Sodium Potassium Chloride Carbon Dioxide BUN Creatinine Glucose POC Glucose 132 H 130 H Hemoglobin A1c Lactic Acid Calcium Phosphorus Magnesium Alkaline Phosphatase C-Reactive Protein Total Protein Albumin Vancomycin Trough Crossmatch 04/26/21 04/26/21 04/26/21 05:02 05:03 06:06 WBC RBC Hgb Hct MCV MCH RDW Plt Count Lymph % (Auto) Seg Neutrophils % Seg Neuts % (Manual) Lymphocytes % (Manual) Nucleated RBC % Seg Neutrophils # Lymphocytes # (Manual) PT INR ABG pO2 ABG HCO3 ABG Base Excess ABG Hemoglobin VBG pH Oxyhemoglobin Sodium Potassium Chloride 114.8 H Carbon Dioxide 14 L BUN 22 H Creatinine Glucose 129 H POC Glucose 115 H 129 H Hemoglobin A1c Lactic Acid Calcium Phosphorus Magnesium Alkaline Phosphatase C-Reactive Protein Total Protein Albumin Vancomycin Trough Crossmatch 04/26/21 04/26/21 04/26/21 06:53 07:58 09:09 WBC RBC Hgb Hct MCV MCH RDW Plt Count Lymph % (Auto) Seg Neutrophils % Seg Neuts % (Manual) Lymphocytes % (Manual) Nucleated RBC % Seg Neutrophils # Lymphocytes # (Manual) PT INR ABG pO2 ABG HCO3 ABG Base Excess ABG Hemoglobin VBG pH Oxyhemoglobin Sodium Potassium Chloride Carbon Dioxide BUN Creatinine Glucose POC Glucose 121 H 124 H 125 H Hemoglobin A1c Lactic Acid Calcium Phosphorus Magnesium Alkaline Phosphatase C-Reactive Protein Total Protein Albumin Vancomycin Trough Crossmatch 04/26/21 04/26/21 04/26/21 10:05 10:52 12:00 WBC RBC Hgb Hct MCV MCH RDW Plt Count Lymph % (Auto) Seg Neutrophils % Seg Neuts % (Manual) Lymphocytes % (Manual) Nucleated RBC % Seg Neutrophils # Lymphocytes # (Manual) PT INR ABG pO2 ABG HCO3 ABG Base Excess ABG Hemoglobin VBG pH Oxyhemoglobin Sodium Potassium Chloride Carbon Dioxide BUN Creatinine Glucose POC Glucose 131 H 129 H 126 H Hemoglobin A1c Lactic Acid Calcium Phosphorus Magnesium Alkaline Phosphatase C-Reactive Protein Total Protein Albumin Vancomycin Trough Crossmatch 04/26/21 04/26/21 04/26/21 13:17 14:06 14:11 WBC RBC Hgb Hct MCV MCH RDW Plt Count Lymph % (Auto) Seg Neutrophils % Seg Neuts % (Manual) Lymphocytes % (Manual) Nucleated RBC % Seg Neutrophils # Lymphocytes # (Manual) PT INR ABG pO2 ABG HCO3 ABG Base Excess ABG Hemoglobin VBG pH Oxyhemoglobin Sodium Potassium 5.3 H D Chloride 112.2 H Carbon Dioxide 14 L BUN 22 H Creatinine Glucose 116 H POC Glucose 130 H 132 H Hemoglobin A1c Lactic Acid Calcium Phosphorus Magnesium 2.40 H Alkaline Phosphatase C-Reactive Protein Total Protein Albumin Vancomycin Trough Crossmatch 04/26/21 04/26/21 04/26/21 15:07 15:20 16:05 WBC RBC Hgb Hct MCV MCH RDW Plt Count Lymph % (Auto) Seg Neutrophils % Seg Neuts % (Manual) Lymphocytes % (Manual) Nucleated RBC % Seg Neutrophils # Lymphocytes # (Manual) PT INR ABG pO2 ABG HCO3 ABG Base Excess ABG Hemoglobin VBG pH Oxyhemoglobin Sodium Potassium Chloride 112.4 H Carbon Dioxide 13 L BUN 22 H Creatinine Glucose 143 H POC Glucose 130 H 156 H Hemoglobin A1c Lactic Acid Calcium Phosphorus Magnesium Alkaline Phosphatase C-Reactive Protein Total Protein Albumin Vancomycin Trough Crossmatch 04/26/21 04/26/21 04/27/21 17:55 19:27 00:02 WBC RBC Hgb Hct MCV MCH RDW Plt Count Lymph % (Auto) Seg Neutrophils % Seg Neuts % (Manual) Lymphocytes % (Manual) Nucleated RBC % Seg Neutrophils # Lymphocytes # (Manual) PT INR ABG pO2 ABG HCO3 ABG Base Excess ABG Hemoglobin VBG pH Oxyhemoglobin Sodium Potassium Chloride Carbon Dioxide BUN Creatinine Glucose POC Glucose 194 H 261 H Hemoglobin A1c Lactic Acid Calcium Phosphorus Magnesium Alkaline Phosphatase C-Reactive Protein Total Protein Albumin Vancomycin Trough 38.2 H Crossmatch 04/27/21 04/27/21 04/27/21 04:03 04:03 05:33 WBC RBC 3.20 L Hgb 8.1 L Hct 25.1 L MCV 78 L MCH 25 L RDW Plt Count Lymph % (Auto) Seg Neutrophils % Seg Neuts % (Manual) Lymphocytes % (Manual) Nucleated RBC % Seg Neutrophils # Lymphocytes # (Manual) PT INR ABG pO2 ABG HCO3 ABG Base Excess ABG Hemoglobin VBG pH Oxyhemoglobin Sodium Potassium Chloride 112.4 H Carbon Dioxide 12 L BUN 30 H Creatinine Glucose 330 H POC Glucose 311 H Hemoglobin A1c Lactic Acid Calcium Phosphorus Magnesium Alkaline Phosphatase C-Reactive Protein Total Protein Albumin Vancomycin Trough Crossmatch 04/27/21 04/27/21 04/27/21 09:51 13:15 16:43 WBC RBC Hgb Hct MCV MCH RDW Plt Count Lymph % (Auto) Seg Neutrophils % Seg Neuts % (Manual) Lymphocytes % (Manual) Nucleated RBC % Seg Neutrophils # Lymphocytes # (Manual) PT INR ABG pO2 ABG HCO3 ABG Base Excess ABG Hemoglobin VBG pH Oxyhemoglobin Sodium Potassium Chloride Carbon Dioxide BUN Creatinine Glucose POC Glucose 335 H 291 H 218 H Hemoglobin A1c Lactic Acid Calcium Phosphorus Magnesium Alkaline Phosphatase C-Reactive Protein Total Protein Albumin Vancomycin Trough Crossmatch 04/27/21 04/27/21 04/28/21 18:10 22:08 02:15 WBC RBC Hgb Hct MCV MCH RDW Plt Count Lymph % (Auto) Seg Neutrophils % Seg Neuts % (Manual) Lymphocytes % (Manual) Nucleated RBC % Seg Neutrophils # Lymphocytes # (Manual) PT INR ABG pO2 ABG HCO3 ABG Base Excess ABG Hemoglobin VBG pH Oxyhemoglobin Sodium Potassium Chloride Carbon Dioxide BUN Creatinine Glucose POC Glucose 177 H 136 H 152 H Hemoglobin A1c Lactic Acid Calcium Phosphorus Magnesium Alkaline Phosphatase C-Reactive Protein Total Protein Albumin Vancomycin Trough Crossmatch 04/28/21 04/28/21 04/28/21 04:41 04:41 06:03 WBC RBC 3.50 L Hgb 8.9 L Hct 27.3 L MCV 78 L MCH 26 L RDW Plt Count Lymph % (Auto) Seg Neutrophils % Seg Neuts % (Manual) Lymphocytes % (Manual) Nucleated RBC % Seg Neutrophils # Lymphocytes # (Manual) PT INR ABG pO2 ABG HCO3 ABG Base Excess ABG Hemoglobin VBG pH Oxyhemoglobin Sodium Potassium Chloride 113.5 H Carbon Dioxide 16 L BUN 37 H Creatinine Glucose 167 H POC Glucose 174 H Hemoglobin A1c Lactic Acid Calcium Phosphorus Magnesium Alkaline Phosphatase C-Reactive Protein Total Protein Albumin Vancomycin Trough Crossmatch 12/05/0704/28/21 04/28/21 08:42 11:34 17:15 WBC RBC Hgb Hct MCV MCH RDW Plt Count Lymph % (Auto) Seg Neutrophils % Seg Neuts % (Manual) Lymphocytes % (Manual) Nucleated RBC % Seg Neutrophils # Lymphocytes # (Manual) PT INR ABG pO2 ABG HCO3 ABG Base Excess ABG Hemoglobin VBG pH Oxyhemoglobin Sodium Potassium Chloride Carbon Dioxide BUN Creatinine Glucose POC Glucose 212 H 228 H 236 H Hemoglobin A1c Lactic Acid Calcium Phosphorus Magnesium Alkaline Phosphatase C-Reactive Protein Total Protein Albumin Vancomycin Trough Crossmatch 04/28/21 04/29/21 04/29/21 21:58 01:55 04:00 WBC 11.7 H RBC 3.35 L Hgb 8.5 L Hct 26.4 L MCV MCH 25 L RDW Plt Count Lymph % (Auto) Seg Neutrophils % Seg Neuts % (Manual) Lymphocytes % (Manual) Nucleated RBC % Seg Neutrophils # Lymphocytes # (Manual) PT INR ABG pO2 ABG HCO3 ABG Base Excess ABG Hemoglobin VBG pH Oxyhemoglobin Sodium Potassium Chloride Carbon Dioxide BUN Creatinine Glucose POC Glucose 208 H 137 H Hemoglobin A1c Lactic Acid Calcium Phosphorus Magnesium Alkaline Phosphatase C-Reactive Protein Total Protein Albumin Vancomycin Trough Crossmatch 04/29/21 04/29/21 04/29/21 04:00 05:16 11:02 WBC RBC Hgb Hct MCV MCH RDW Plt Count Lymph % (Auto) Seg Neutrophils % Seg Neuts % (Manual) Lymphocytes % (Manual) Nucleated RBC % Seg Neutrophils # Lymphocytes # (Manual) PT INR ABG pO2 ABG HCO3 ABG Base Excess ABG Hemoglobin VBG pH Oxyhemoglobin Sodium 146 H Potassium Chloride 112.4 H Carbon Dioxide BUN 41 H Creatinine Glucose 115 H POC Glucose 114 H 144 H Hemoglobin A1c Lactic Acid Calcium Phosphorus Magnesium Alkaline Phosphatase C-Reactive Protein Total Protein Albumin Vancomycin Trough Crossmatch 04/30/21 04/30/21 04/30/21 00:23 04:41 04:41 WBC 14.4 H RBC 3.12 L Hgb 7.8 L Hct 24.7 L MCV MCH 25 L RDW Plt Count 138 L Lymph % (Auto) Seg Neutrophils % Seg Neuts % (Manual) Lymphocytes % (Manual) Nucleated RBC % Seg Neutrophils # Lymphocytes # (Manual) PT INR ABG pO2 ABG HCO3 ABG Base Excess ABG Hemoglobin VBG pH Oxyhemoglobin Sodium Potassium Chloride 108.0 H Carbon Dioxide BUN 42 H Creatinine Glucose 215 H POC Glucose 126 H Hemoglobin A1c Lactic Acid Calcium Phosphorus Magnesium Alkaline Phosphatase 171 H C-Reactive Protein Total Protein 6.1 L Albumin 1.4 L Vancomycin Trough Crossmatch 04/30/21 04/30/21 04/30/21 05:22 11:55 17:36 WBC RBC Hgb Hct MCV MCH RDW Plt Count Lymph % (Auto) Seg Neutrophils % Seg Neuts % (Manual) Lymphocytes % (Manual) Nucleated RBC % Seg Neutrophils # Lymphocytes # (Manual) PT INR ABG pO2 ABG HCO3 ABG Base Excess ABG Hemoglobin VBG pH Oxyhemoglobin Sodium Potassium Chloride Carbon Dioxide BUN Creatinine Glucose POC Glucose 196 H 224 H 196 H Hemoglobin A1c Lactic Acid Calcium Phosphorus Magnesium Alkaline Phosphatase C-Reactive Protein Total Protein Albumin Vancomycin Trough Crossmatch 05/01/21 05/01/21 05/01/21 04:01 05:37 05:37 WBC 16.9 H RBC 2.97 L Hgb 7.4 L Hct 23.1 L MCV 78 L MCH 25 L RDW Plt Count Lymph % (Auto) Seg Neutrophils % Seg Neuts % (Manual) Lymphocytes % (Manual) Nucleated RBC % Seg Neutrophils # Lymphocytes # (Manual) PT INR ABG pO2 ABG HCO3 ABG Base Excess ABG Hemoglobin VBG pH Oxyhemoglobin Sodium Potassium Chloride 108.4 H Carbon Dioxide BUN 41 H Creatinine Glucose 124 H POC Glucose 122 H Hemoglobin A1c Lactic Acid Calcium 8.0 L Phosphorus Magnesium Alkaline Phosphatase C-Reactive Protein Total Protein Albumin Vancomycin Trough Crossmatch 05/01/21 05/01/21 05/01/21 06:27 13:45 16:40 WBC RBC Hgb Hct MCV MCH RDW Plt Count Lymph % (Auto) Seg Neutrophils % Seg Neuts % (Manual) Lymphocytes % (Manual) Nucleated RBC % Seg Neutrophils # Lymphocytes # (Manual) PT INR ABG pO2 ABG HCO3 ABG Base Excess ABG Hemoglobin VBG pH Oxyhemoglobin Sodium Potassium Chloride Carbon Dioxide BUN Creatinine Glucose POC Glucose 126 H 231 H 266 H Hemoglobin A1c Lactic Acid Calcium Phosphorus Magnesium Alkaline Phosphatase C-Reactive Protein Total Protein Albumin Vancomycin Trough Crossmatch 05/01/21 05/02/21 05/02/21 23:16 05:43 11:27 WBC RBC Hgb Hct MCV MCH RDW Plt Count Lymph % (Auto) Seg Neutrophils % Seg Neuts % (Manual) Lymphocytes % (Manual) Nucleated RBC % Seg Neutrophils # Lymphocytes # (Manual) PT INR ABG pO2 ABG HCO3 ABG Base Excess ABG Hemoglobin VBG pH Oxyhemoglobin Sodium Potassium Chloride Carbon Dioxide BUN Creatinine Glucose POC Glucose 192 H 236 H 284 H Hemoglobin A1c Lactic Acid Calcium Phosphorus Magnesium Alkaline Phosphatase C-Reactive Protein Total Protein Albumin Vancomycin Trough Crossmatch 05/02/21 05/02/21 05/03/21 16:52 23:20 06:16 WBC RBC Hgb Hct MCV MCH RDW Plt Count Lymph % (Auto) Seg Neutrophils % Seg Neuts % (Manual) Lymphocytes % (Manual) Nucleated RBC % Seg Neutrophils # Lymphocytes # (Manual) PT INR ABG pO2 ABG HCO3 ABG Base Excess ABG Hemoglobin VBG pH Oxyhemoglobin Sodium Potassium Chloride Carbon Dioxide BUN Creatinine Glucose POC Glucose 170 H 124 H 147 H Hemoglobin A1c Lactic Acid Calcium Phosphorus Magnesium Alkaline Phosphatase C-Reactive Protein Total Protein Albumin Vancomycin Trough Crossmatch 05/03/21 05/03/21 05/03/21 07:05 07:05 11:46 WBC 14.3 H RBC 2.82 L Hgb 6.8 L Hct 22.7 L MCV MCH 24 L RDW Plt Count Lymph % (Auto) 11.8 L Seg Neutrophils % 83.3 H Seg Neuts % (Manual) Lymphocytes % (Manual) Nucleated RBC % Seg Neutrophils # 11.9 H Lymphocytes # (Manual) PT INR ABG pO2 ABG HCO3 ABG Base Excess ABG Hemoglobin VBG pH Oxyhemoglobin Sodium Potassium Chloride Carbon Dioxide BUN 39 H Creatinine Glucose 163 H POC Glucose 134 H Hemoglobin A1c Lactic Acid Calcium Phosphorus Magnesium Alkaline Phosphatase C-Reactive Protein Total Protein Albumin Vancomycin Trough Crossmatch 05/03/21 05/03/21 05/03/21 17:11 18:00 19:46 WBC RBC Hgb Hct MCV MCH RDW Plt Count Lymph % (Auto) Seg Neutrophils % Seg Neuts % (Manual) Lymphocytes % (Manual) Nucleated RBC % Seg Neutrophils # Lymphocytes # (Manual) PT INR ABG pO2 ABG HCO3 ABG Base Excess ABG Hemoglobin VBG pH Oxyhemoglobin Sodium Potassium Chloride Carbon Dioxide BUN Creatinine Glucose POC Glucose 129 H 128 H Hemoglobin A1c Lactic Acid Calcium Phosphorus Magnesium Alkaline Phosphatase C-Reactive Protein Total Protein Albumin Vancomycin Trough Crossmatch See Detail 05/03/21 05/04/21 05/04/21 22:00 08:06 11:19 WBC RBC Hgb Hct MCV MCH RDW Plt Count Lymph % (Auto) Seg Neutrophils % Seg Neuts % (Manual) Lymphocytes % (Manual) Nucleated RBC % Seg Neutrophils # Lymphocytes # (Manual) PT INR ABG pO2 ABG HCO3 ABG Base Excess ABG Hemoglobin VBG pH Oxyhemoglobin Sodium Potassium Chloride Carbon Dioxide BUN Creatinine Glucose POC Glucose 144 H 337 H 383 H Hemoglobin A1c Lactic Acid Calcium Phosphorus Magnesium Alkaline Phosphatase C-Reactive Protein Total Protein Albumin Vancomycin Trough Crossmatch 05/04/21 05/04/21 05/05/21 17:43 23:01 06:05 WBC RBC Hgb Hct MCV MCH RDW Plt Count Lymph % (Auto) Seg Neutrophils % Seg Neuts % (Manual) Lymphocytes % (Manual) Nucleated RBC % Seg Neutrophils # Lymphocytes # (Manual) PT INR ABG pO2 ABG HCO3 ABG Base Excess ABG Hemoglobin VBG pH Oxyhemoglobin Sodium Potassium Chloride Carbon Dioxide BUN Creatinine Glucose POC Glucose 316 H 320 H 395 H Hemoglobin A1c Lactic Acid Calcium Phosphorus Magnesium Alkaline Phosphatase C-Reactive Protein Total Protein Albumin Vancomycin Trough Crossmatch 05/05/21 05/05/21 05/05/21 06:15 06:15 11:38 WBC RBC 2.56 L Hgb 6.8 L 6.9 L Hct 21.4 L 22.7 L MCV MCH 27 L RDW Plt Count 442 H Lymph % (Auto) Seg Neutrophils % 76.5 H Seg Neuts % (Manual) Lymphocytes % (Manual) Nucleated RBC % Seg Neutrophils # Lymphocytes # (Manual) PT INR ABG pO2 ABG HCO3 ABG Base Excess ABG Hemoglobin VBG pH Oxyhemoglobin Sodium Potassium Chloride Carbon Dioxide BUN 52 H Creatinine Glucose 430 H POC Glucose Hemoglobin A1c Lactic Acid Calcium Phosphorus Magnesium Alkaline Phosphatase C-Reactive Protein Total Protein Albumin Vancomycin Trough Crossmatch 05/05/21 05/05/21 05/06/21 11:47 23:07 06:44 WBC RBC Hgb Hct MCV MCH RDW Plt Count Lymph % (Auto) Seg Neutrophils % Seg Neuts % (Manual) Lymphocytes % (Manual) Nucleated RBC % Seg Neutrophils # Lymphocytes # (Manual) PT INR ABG pO2 ABG HCO3 ABG Base Excess ABG Hemoglobin VBG pH Oxyhemoglobin Sodium Potassium Chloride Carbon Dioxide BUN Creatinine Glucose POC Glucose 307 H 141 H 147 H Hemoglobin A1c Lactic Acid Calcium Phosphorus Magnesium Alkaline Phosphatase C-Reactive Protein Total Protein Albumin Vancomycin Trough Crossmatch 05/06/21 05/06/21 05/06/21 07:52 12:27 17:02 WBC RBC Hgb 7.0 L Hct 21.8 L MCV MCH RDW Plt Count Lymph % (Auto) Seg Neutrophils % Seg Neuts % (Manual) Lymphocytes % (Manual) Nucleated RBC % Seg Neutrophils # Lymphocytes # (Manual) PT INR ABG pO2 ABG HCO3 ABG Base Excess ABG Hemoglobin VBG pH Oxyhemoglobin Sodium Potassium Chloride Carbon Dioxide BUN Creatinine Glucose POC Glucose 200 H 135 H Hemoglobin A1c Lactic Acid Calcium Phosphorus Magnesium Alkaline Phosphatase C-Reactive Protein Total Protein Albumin Vancomycin Trough Crossmatch 05/06/21 05/07/21 05/07/21 23:03 08:02 10:49 WBC RBC Hgb 7.4 L Hct 23.7 L MCV MCH RDW Plt Count Lymph % (Auto) Seg Neutrophils % Seg Neuts % (Manual) Lymphocytes % (Manual) Nucleated RBC % Seg Neutrophils # Lymphocytes # (Manual) PT INR ABG pO2 ABG HCO3 ABG Base Excess ABG Hemoglobin VBG pH Oxyhemoglobin Sodium Potassium Chloride Carbon Dioxide BUN Creatinine Glucose POC Glucose 150 H 255 H Hemoglobin A1c Lactic Acid Calcium Phosphorus Magnesium Alkaline Phosphatase C-Reactive Protein Total Protein Albumin Vancomycin Trough Crossmatch 05/07/21 05/07/21 05/07/21 13:27 18:03 Unknown WBC RBC 2.66 L Hgb 6.9 L Hct 22.3 L MCV MCH 26 L RDW 15.4 H Plt Count 449 H Lymph % (Auto) Seg Neutrophils % 70.7 H Seg Neuts % (Manual) Lymphocytes % (Manual) Nucleated RBC % Seg Neutrophils # Lymphocytes # (Manual) PT INR ABG pO2 ABG HCO3 ABG Base Excess ABG Hemoglobin VBG pH Oxyhemoglobin Sodium Potassium Chloride Carbon Dioxide BUN Creatinine Glucose POC Glucose 149 H 127 H Hemoglobin A1c Lactic Acid Calcium Phosphorus Magnesium Alkaline Phosphatase C-Reactive Protein Total Protein Albumin Vancomycin Trough Crossmatch 05/08/21 05/08/21 05/08/21 06:10 07:51 11:55 WBC RBC Hgb Hct MCV MCH RDW Plt Count Lymph % (Auto) Seg Neutrophils % Seg Neuts % (Manual) Lymphocytes % (Manual) Nucleated RBC % Seg Neutrophils # Lymphocytes # (Manual) PT INR ABG pO2 ABG HCO3 ABG Base Excess ABG Hemoglobin VBG pH Oxyhemoglobin Sodium Potassium Chloride Carbon Dioxide BUN Creatinine Glucose POC Glucose 190 H 194 H 197 H Hemoglobin A1c Lactic Acid Calcium Phosphorus Magnesium Alkaline Phosphatase C-Reactive Protein Total Protein Albumin Vancomycin Trough Crossmatch 05/08/21 05/08/21 05/08/21 12:25 12:25 18:35 WBC RBC 2.42 L Hgb 6.6 L Hct 20.1 L MCV MCH 27 L RDW 15.3 H Plt Count 452 H Lymph % (Auto) Seg Neutrophils % Seg Neuts % (Manual) Lymphocytes % (Manual) Nucleated RBC % Seg Neutrophils # Lymphocytes # (Manual) PT INR ABG pO2 ABG HCO3 ABG Base Excess ABG Hemoglobin VBG pH Oxyhemoglobin Sodium Potassium Chloride Carbon Dioxide BUN 27 H Creatinine Glucose 216 H POC Glucose 195 H Hemoglobin A1c Lactic Acid Calcium 7.9 L Phosphorus Magnesium Alkaline Phosphatase C-Reactive Protein Total Protein Albumin Vancomycin Trough Crossmatch 05/08/21 05/09/21 05/09/21 23:45 01:39 02:57 WBC RBC Hgb 6.6 L Hct 20.7 L MCV MCH RDW Plt Count Lymph % (Auto) Seg Neutrophils % Seg Neuts % (Manual) Lymphocytes % (Manual) Nucleated RBC % Seg Neutrophils # Lymphocytes # (Manual) PT INR ABG pO2 ABG HCO3 ABG Base Excess ABG Hemoglobin VBG pH Oxyhemoglobin Sodium Potassium Chloride Carbon Dioxide BUN Creatinine Glucose POC Glucose 286 H Hemoglobin A1c Lactic Acid Calcium Phosphorus Magnesium Alkaline Phosphatase C-Reactive Protein Total Protein Albumin Vancomycin Trough Crossmatch See Detail 05/09/21 05/09/21 05/09/21 04:51 07:34 07:34 WBC RBC 2.46 L Hgb 6.3 L Hct 20.6 L MCV MCH 26 L RDW 15.5 H Plt Count 505 H Lymph % (Auto) Seg Neutrophils % Seg Neuts % (Manual) Lymphocytes % (Manual) Nucleated RBC % Seg Neutrophils # Lymphocytes # (Manual) PT INR ABG pO2 ABG HCO3 ABG Base Excess ABG Hemoglobin VBG pH Oxyhemoglobin Sodium Potassium Chloride Carbon Dioxide BUN 24 H Creatinine Glucose 307 H POC Glucose 266 H Hemoglobin A1c Lactic Acid Calcium 7.7 L Phosphorus Magnesium Alkaline Phosphatase C-Reactive Protein Total Protein Albumin Vancomycin Trough Crossmatch 05/09/21 05/09/21 05/10/21 12:20 16:01 05:34 WBC RBC Hgb Hct MCV MCH RDW Plt Count Lymph % (Auto) Seg Neutrophils % Seg Neuts % (Manual) Lymphocytes % (Manual) Nucleated RBC % Seg Neutrophils # Lymphocytes # (Manual) PT INR ABG pO2 ABG HCO3 ABG Base Excess ABG Hemoglobin VBG pH Oxyhemoglobin Sodium Potassium Chloride Carbon Dioxide BUN Creatinine Glucose POC Glucose 249 H 166 H 203 H Hemoglobin A1c Lactic Acid Calcium Phosphorus Magnesium Alkaline Phosphatase C-Reactive Protein Total Protein Albumin Vancomycin Trough Crossmatch 05/10/21 05/10/21 05/10/21 06:30 16:11 23:11 WBC RBC 2.62 L Hgb 6.8 L Hct 21.8 L MCV MCH 26 L RDW 15.6 H Plt Count 489 H Lymph % (Auto) Seg Neutrophils % Seg Neuts % (Manual) Lymphocytes % (Manual) Nucleated RBC % Seg Neutrophils # Lymphocytes # (Manual) PT INR ABG pO2 ABG HCO3 ABG Base Excess ABG Hemoglobin VBG pH Oxyhemoglobin Sodium Potassium Chloride Carbon Dioxide BUN Creatinine Glucose POC Glucose 210 H 134 H Hemoglobin A1c Lactic Acid Calcium Phosphorus Magnesium Alkaline Phosphatase C-Reactive Protein Total Protein Albumin Vancomycin Trough Crossmatch 05/11/21 05/11/21 05/11/21 05:29 12:07 18:11 WBC RBC Hgb Hct MCV MCH RDW Plt Count Lymph % (Auto) Seg Neutrophils % Seg Neuts % (Manual) Lymphocytes % (Manual) Nucleated RBC % Seg Neutrophils # Lymphocytes # (Manual) PT INR ABG pO2 ABG HCO3 ABG Base Excess ABG Hemoglobin VBG pH Oxyhemoglobin Sodium Potassium Chloride Carbon Dioxide BUN Creatinine Glucose POC Glucose 144 H 226 H 140 H Hemoglobin A1c Lactic Acid Calcium Phosphorus Magnesium Alkaline Phosphatase C-Reactive Protein Total Protein Albumin Vancomycin Trough Crossmatch 05/11/21 05/11/21 05/12/21 23:54 Unknown 10:01 WBC RBC 2.65 L Hgb 7.0 L Hct 22.1 L MCV MCH 26 L RDW 15.9 H Plt Count 518 H Lymph % (Auto) Seg Neutrophils % Seg Neuts % (Manual) Lymphocytes % (Manual) Nucleated RBC % Seg Neutrophils # Lymphocytes # (Manual) PT INR ABG pO2 ABG HCO3 ABG Base Excess ABG Hemoglobin VBG pH Oxyhemoglobin Sodium Potassium Chloride Carbon Dioxide BUN Creatinine Glucose POC Glucose 116 H 237 H Hemoglobin A1c Lactic Acid Calcium Phosphorus Magnesium Alkaline Phosphatase C-Reactive Protein Total Protein Albumin Vancomycin Trough Crossmatch 05/12/21 05/12/21 05/13/21 13:01 17:23 05:40 WBC RBC Hgb Hct MCV MCH RDW Plt Count Lymph % (Auto) Seg Neutrophils % Seg Neuts % (Manual) Lymphocytes % (Manual) Nucleated RBC % Seg Neutrophils # Lymphocytes # (Manual) PT INR ABG pO2 ABG HCO3 ABG Base Excess ABG Hemoglobin VBG pH Oxyhemoglobin Sodium Potassium Chloride Carbon Dioxide BUN Creatinine Glucose POC Glucose 227 H 158 H 126 H Hemoglobin A1c Lactic Acid Calcium Phosphorus Magnesium Alkaline Phosphatase C-Reactive Protein Total Protein Albumin Vancomycin Trough Crossmatch 05/13/21 05/13/21 05/13/21 09:16 09:16 11:50 WBC RBC 2.49 L Hgb 6.8 L Hct 20.7 L MCV MCH 27 L RDW 15.8 H Plt Count 535 H Lymph % (Auto) Seg Neutrophils % Seg Neuts % (Manual) Lymphocytes % (Manual) Nucleated RBC % Seg Neutrophils # Lymphocytes # (Manual) PT INR ABG pO2 ABG HCO3 ABG Base Excess ABG Hemoglobin VBG pH Oxyhemoglobin Sodium 135 L Potassium Chloride 97.0 L Carbon Dioxide BUN 25 H Creatinine Glucose 197 H POC Glucose 231 H Hemoglobin A1c Lactic Acid Calcium 7.8 L Phosphorus Magnesium Alkaline Phosphatase C-Reactive Protein Total Protein Albumin Vancomycin Trough Crossmatch 05/13/21 05/13/21 05/14/21 13:20 16:59 05:00 WBC 11.4 H RBC 2.80 L Hgb 7.7 L Hct 23.3 L MCV MCH 27 L RDW 16.0 H Plt Count 507 H Lymph % (Auto) Seg Neutrophils % Seg Neuts % (Manual) Lymphocytes % (Manual) Nucleated RBC % Seg Neutrophils # Lymphocytes # (Manual) PT INR ABG pO2 ABG HCO3 ABG Base Excess ABG Hemoglobin VBG pH Oxyhemoglobin Sodium Potassium Chloride Carbon Dioxide BUN Creatinine Glucose POC Glucose 130 H Hemoglobin A1c Lactic Acid Calcium Phosphorus Magnesium Alkaline Phosphatase C-Reactive Protein Total Protein Albumin Vancomycin Trough Crossmatch See Detail 05/14/21 05/14/21 05/14/21 05:00 05:34 11:59 WBC RBC Hgb Hct MCV MCH RDW Plt Count Lymph % (Auto) Seg Neutrophils % Seg Neuts % (Manual) Lymphocytes % (Manual) Nucleated RBC % Seg Neutrophils # Lymphocytes # (Manual) PT INR ABG pO2 ABG HCO3 ABG Base Excess ABG Hemoglobin VBG pH Oxyhemoglobin Sodium 135 L Potassium Chloride Carbon Dioxide BUN 24 H Creatinine Glucose 134 H POC Glucose 128 H 179 H Hemoglobin A1c Lactic Acid Calcium 8.0 L Phosphorus Magnesium Alkaline Phosphatase C-Reactive Protein Total Protein Albumin Vancomycin Trough Crossmatch 05/14/21 05/15/21 05/15/21 23:48 04:51 04:58 WBC 12.1 H RBC 2.80 L Hgb 7.2 L Hct 23.4 L MCV MCH 26 L RDW 16.1 H Plt Count 537 H Lymph % (Auto) Seg Neutrophils % Seg Neuts % (Manual) Lymphocytes % (Manual) Nucleated RBC % Seg Neutrophils # Lymphocytes # (Manual) PT INR ABG pO2 ABG HCO3 ABG Base Excess ABG Hemoglobin VBG pH Oxyhemoglobin Sodium Potassium Chloride Carbon Dioxide BUN Creatinine Glucose POC Glucose 171 H 220 H Hemoglobin A1c Lactic Acid Calcium Phosphorus Magnesium Alkaline Phosphatase C-Reactive Protein Total Protein Albumin Vancomycin Trough Crossmatch 05/15/21 05/15/21 05/15/21 05:53 09:02 10:48 WBC RBC Hgb Hct MCV MCH RDW Plt Count Lymph % (Auto) Seg Neutrophils % Seg Neuts % (Manual) Lymphocytes % (Manual) Nucleated RBC % Seg Neutrophils # Lymphocytes # (Manual) PT INR ABG pO2 ABG HCO3 ABG Base Excess ABG Hemoglobin VBG pH Oxyhemoglobin Sodium Potassium Chloride Carbon Dioxide BUN Creatinine Glucose POC Glucose 222 H 196 H 179 H Hemoglobin A1c Lactic Acid Calcium Phosphorus Magnesium Alkaline Phosphatase C-Reactive Protein Total Protein Albumin Vancomycin Trough Crossmatch 05/15/21 05/15/21 05/15/21 13:04 15:46 16:20 WBC RBC Hgb Hct MCV MCH RDW Plt Count Lymph % (Auto) Seg Neutrophils % Seg Neuts % (Manual) Lymphocytes % (Manual) Nucleated RBC % Seg Neutrophils # Lymphocytes # (Manual) PT 15.8 H INR 1.14 H ABG pO2 ABG HCO3 ABG Base Excess ABG Hemoglobin VBG pH Oxyhemoglobin Sodium Potassium Chloride Carbon Dioxide BUN Creatinine Glucose POC Glucose 49 L 122 H Hemoglobin A1c Lactic Acid Calcium Phosphorus Magnesium Alkaline Phosphatase C-Reactive Protein Total Protein Albumin Vancomycin Trough Crossmatch 05/15/21 05/16/21 05/16/21 22:50 00:01 05:49 WBC RBC Hgb Hct MCV MCH RDW Plt Count Lymph % (Auto) Seg Neutrophils % Seg Neuts % (Manual) Lymphocytes % (Manual) Nucleated RBC % Seg Neutrophils # Lymphocytes # (Manual) PT INR ABG pO2 ABG HCO3 ABG Base Excess ABG Hemoglobin VBG pH Oxyhemoglobin Sodium Potassium Chloride Carbon Dioxide BUN Creatinine Glucose POC Glucose 63 L 143 H 144 H Hemoglobin A1c Lactic Acid Calcium Phosphorus Magnesium Alkaline Phosphatase C-Reactive Protein Total Protein Albumin Vancomycin Trough Crossmatch 05/16/21 05/16/21 05/16/21 10:09 10:09 12:59 WBC 12.1 H RBC 3.03 L Hgb 7.6 L Hct 25.8 L MCV MCH 25 L RDW 16.5 H Plt Count 544 H Lymph % (Auto) Seg Neutrophils % Seg Neuts % (Manual) Lymphocytes % (Manual) Nucleated RBC % Seg Neutrophils # Lymphocytes # (Manual) PT INR ABG pO2 ABG HCO3 ABG Base Excess ABG Hemoglobin VBG pH Oxyhemoglobin Sodium 136 L Potassium Chloride Carbon Dioxide BUN 19 H Creatinine Glucose 174 H POC Glucose 174 H Hemoglobin A1c Lactic Acid Calcium 8.1 L Phosphorus Magnesium Alkaline Phosphatase C-Reactive Protein Total Protein Albumin Vancomycin Trough Crossmatch 05/16/21 05/16/21 05/17/21 16:19 21:07 05:39 WBC RBC Hgb Hct MCV MCH RDW Plt Count Lymph % (Auto) Seg Neutrophils % Seg Neuts % (Manual) Lymphocytes % (Manual) Nucleated RBC % Seg Neutrophils # Lymphocytes # (Manual) PT INR ABG pO2 ABG HCO3 ABG Base Excess ABG Hemoglobin VBG pH Oxyhemoglobin Sodium Potassium Chloride Carbon Dioxide BUN Creatinine Glucose POC Glucose 196 H 155 H 150 H Hemoglobin A1c Lactic Acid Calcium Phosphorus Magnesium Alkaline Phosphatase C-Reactive Protein Total Protein Albumin Vancomycin Trough Crossmatch 05/17/21 12:21 WBC RBC Hgb Hct MCV MCH RDW Plt Count Lymph % (Auto) Seg Neutrophils % Seg Neuts % (Manual) Lymphocytes % (Manual) Nucleated RBC % Seg Neutrophils # Lymphocytes # (Manual) PT INR ABG pO2 ABG HCO3 ABG Base Excess ABG Hemoglobin VBG pH Oxyhemoglobin Sodium Potassium Chloride Carbon Dioxide BUN Creatinine Glucose POC Glucose 159 H Hemoglobin A1c Lactic Acid Calcium Phosphorus Magnesium Alkaline Phosphatase C-Reactive Protein Total Protein Albumin Vancomycin Trough Crossmatch Allied health notes reviewed: nursing
[2021-05-17] MEDS: POLYETHYLENE GLYCOL/ELECT SOLN 4000 ML NGTUBE SCH (21:33)
[2021-05-17] MEDS: SENNOSIDES 8.6 MG TAB PO SCH (22:56)
[2021-05-17] MEDS: HEPARIN 5,000 UNIT/1 ML VIAL SUB-Q SCH (22:59)
[2021-05-18] MEDS: INSULIN LISPRO 100 UNIT/ML SUB-Q SCH ×4 (00:04→17:17)
[2021-05-18] MEDS: hydrALAZINE 20 MG/1 ML INJ IV PRN ×2 (01:06→12:38)
[2021-05-18] MEDS: FREE WATER PO SCH ×6 (01:09→20:00)
[2021-05-18] MEDS: HEPARIN 5,000 UNIT/1 ML VIAL SUB-Q SCH ×3 (05:29→22:23)
[2021-05-18 06:19] LABS: Hematocrit 24.5 % (30.3-42.9); Hemoglobin 7.7 gm/dl (10.1-14.3); Mean Corpuscular HGB Conc 31 % (30-34); Mean Corpuscular Volume 83 fl (79-97); Platelet Count 523 K/mm3 (140-440); Red Blood Count 2.94 M/mm3 (3.65-5.03); Red Cell Distribution Width 16.3 % (13.2-15.2)
[2021-05-18 06:23] LABS: BUN/Creatinine Ratio 14; Blood Urea Nitrogen 11 mg/dL (7-17); Calcium 7.9 mg/dL (8.4-10.2); Hemolysis Index 0
[2021-05-18] MEDS: METOCLOPRAMIDE 10 MG/10 ML ORAL LIQD FEEDTUBE SCH ×4 (09:34→22:23)
[2021-05-18] MEDS: LANSOPRAZOLE 30 MG SOLUTAB FEEDTUBE SCH (09:34)
[2021-05-18] MEDS: INSULIN NPH/REGULAR 70/30 INJ SUB-Q SCH ×2 (09:34→17:17)
--- NOTE | 2021-05-18 14:19 | Progress Note ---
Assessment and Plan Cultures: 04/24/2021 Blood culture: GBS Blood culture 04/26/2021: No growth 04/30/2021 R knee synovial fluid culture: Group B Streptococcus 05/03/2021 right knee OR culture: No growth A/P: 51 yo F with DM2, HTN, morbid obesity presented with sepsis #Acute sepsis: Fever resolved. Leukocytosis resolved. Secondary to group B streptococcus bacteremia, source is R knee. #Group B streptococcus bacteremia secondary to R knee septic arthritis: Reports a history of previous right knee septic arthritis and has been treated with antibiotics at least twice in the past. X-ray shows large joint effusion. TTE without any evidence of valvular vegetations/endocarditis. Arthrocentesis culture also positive. Status post I&D followed by arthroscopic examination of right knee on 05/03/2021, as per operative note, "entered the joint proper with return of copious amounts of purulent material" and "significant cartilage degeneration from repeated infections". Will need a longer ~6 weeks course of IV abx after surgery due to her history of recurrence / chronicity and possibility of osteomyelitis, extensive cartilage degeneration. #DM2: tight glycemic control for best outcomes. #Anemia: EGD with gastritis, pending colonoscopy. Recs: -continue high dose IV Ancef while inpatient, upon discharge, continue IV Ceftriaxone ending 06/14/[address] Chawla, CM orders have already been placed. PICC in place -f/u with Dr Denton Fernandez MD [facility] ([facility]) Office [phone] Subjective Date of service: 05/18/21 Principal diagnosis: HAGMA; DKA; AMS; Obesity; Osteoarthritis; Hypercalcemia Interval history: Patient feels better. No complaints. No fever. Objective - Exam Narrative Exam: General appearance: Alert in NAD pleasant NG tube in place Eyes: anicteric sclerae, moist conjunctivae; no lid-lag; PERRLA HENT: Normocephalic, Atraumatic; normal external ears, nares open, oropharynx clear with moist mucous membranes and no oral thrush Neck: supple, tracheal midline, no JVD Lungs: CTA, with normal respiratory effort and no intercostal retractions CV: RRR no murmur Abdomen: Soft, non-tender; no masses or hepatosplenomegaly Extremities: no edema, no cyanosis Skin: No rash. Psych: no agitated Neuro: alert and oriented x 3. Moving all extermities - Constitutional Vitals: Vital Signs Temp Pulse Resp BP Pulse Ox 98.9 F 103 H 18 176/88 97 05/18/21 11:36 05/18/21 11:36 05/18/21 11:36 05/18/21 11:36 05/18/21 13:32 Temperature -Last 24 Hours Temperature 98.9 F Temperature 98.5 F Temperature 98.3 F Temperature 98.8 F - Labs CBC & Chem 7: 05/18/21 05:10 05/18/21 05:10 Labs: Abnormal lab results 05/17/21 05/17/21 05/18/21 Range/Units 16:59 21:35 05:10 RBC 2.94 L (3.65-5.03) M/mm3 Hgb 7.7 L (10.1-14.3) gm/dl Hct 24.5 L (30.3-42.9) % MCH 26 L (28-32) pg RDW 16.3 H (13.2-15.2) % Plt Count 523 H (140-440) K/mm3 Glucose (65-100) mg/dL POC Glucose 169 H 157 H (70-105) mg/dL Calcium (8.4-10.2) mg/dL 05/18/21 05/18/21 05/18/21 Range/Units 05:10 05:26 07:53 RBC (3.65-5.03) M/mm3 Hgb (10.1-14.3) gm/dl Hct (30.3-42.9) % MCH (28-32) pg RDW (13.2-15.2) % Plt Count (140-440) K/mm3 Glucose 235 H (65-100) mg/dL POC Glucose 209 H 174 H (70-105) mg/dL Calcium 7.9 L (8.4-10.2) mg/dL 05/18/21 Range/Units 10:46 RBC (3.65-5.03) M/mm3 Hgb (10.1-14.3) gm/dl Hct (30.3-42.9) % MCH (28-32) pg RDW (13.2-15.2) % Plt Count (140-440) K/mm3 Glucose (65-100) mg/dL POC Glucose 222 H (70-105) mg/dL Calcium (8.4-10.2) mg/dL
[2021-05-18] MEDS: HYDROmorphone 1 MG/1 ML INJ IV PRN (15:59)
--- NOTE | 2021-05-18 17:37 | Progress Note ---
Assessment and Plan Assessment and plan: This is a 51-year-old female with DM, noncompliance, obesity, arthritis and right knee surgery admitted for DKA, oropharyngeal dysphagia on tube feeding Speech therapist following, patient has septic arthritis and severe sepsis on long-term antibiotics Rocephin total 6 weeks., Anemia with 6.8 hemoglobin, received 1 unit PRBC yesterday, this morning hemoglobin 6.8, will recheck Hb and transfuse additional PRBC if needed -Anemia; Hb 6.8-6.9 Received 1 unit PRBC yesterday 05/05/2021 This morning Hb 6.9, transfuse additional 1 unit PRBC today Check stool for occult blood, monitor H&H 05/11 h/h--7.0/22.1 Status post colonoscopy --Oropharyngeal dysphagia; Patient is on tube feeding till recently Now able to eat Patient could not be discharged before because of dysphagia and tube feeding Patient to be placed --Septic arthritis; knee; Ortho is planning knee/synovial debridement 04/30/2021;s/p arthrocentesis 05/03/2021 s/p Incision and drainage followed by arthroscopic exam of the right knee Continue antibiotics per ID total 6 weeks -- Sepsis, group B Streptococcus bacteremia, h/o right septic arthritis -Infectious disease consulted, appreciate recommendations -ABX therapy per ID: Ceftriaxone 2 g every 24 hours -Right knee x-ray shows large joint effusion s/p arthrocentesis Positive synovial fluid cultures, ID recommended total 6 weeks of Rocephin --Acute metabolic encephalopathy (improved significantly) Patient is more alert and awake, supportive care -Echocardiogram shows mildly dilated right heart chamber, mild to moderate TR, moderate pulmonary hypertension, RVSP 50-55, LVEF 45-50 --Respiratory: Acute hypoxic respiratory failure Nasal cannula oxygen, intermittent BiPAP Home O2 evaluation --Severe protein calorie malnutrition --Hypoalbuminemia, albumin 1.7 Dietitian/cosmetician apprentice following Continue tube feeding, nutrition supplements Supportive care -- Hypernatremia (resolved) Closely monitor electrolytes --Leukocytosis/trending down Secondary to sepsis, continue antibiotics and supportive care Closely monitor --S/p DKA, h/o uncontrolled DM/present on admission -Hemoglobin A1c 18.3 Blood sugars moderate control -Avoid hypoglycemia Accu-Chek sliding scale coverage tube feeding Glucerna --DVT prophylaxis Subcu Lovenox --Full CODE STATUS Discharge planning issues Patient is able to eat Physical therapy Placement issues are Outpatient antibiotic therapy To discuss with case management Subjective Date of service: 05/12/21 Principal diagnosis: HAGMA; DKA; AMS; Obesity; Osteoarthritis; Hypercalcemia Interval history: Brief history and daily hospital course This is a 51-year-old female with DM, OA, medication noncompliance, obesity who presented to emergency department on 04/23 with complaints of weakness, elevated blood glucose levels, nausea, polydipsia, polyuria and diminished oral intake over the past week with worsening symptoms over the past 2 days. Patient acknowledges noncompliance with oral antihyperglycemic therapy. Patient was seen and evaluated in the emergency department and found to have lab work consis tent with diabetic ketoacidosis, metabolic encephalopathy, metabolic acidosis and volume depletion. Patient was admitted to the hospital service to the ICU initiated DKA protocol with CCM consult. 04/24/21- Patient remains on DKA protocol. Still very lethargic this am, following simple commands. Rt. knee wound and swelling noted, and nursing staff also reported thick, white vaginal discharge. C/f sepsis, blood culture ordered, this am UA noted. Will start patient on PO difflucan for possible yeast infection, pending culture data. Anion GAP is still 18 this am, will continue DKA protocol for now. Continue to monitor electrolytes, serial BMP ordered. 04/25/21- Patient appears to be in distress this am, now on 3L NC. Lactic acidosis worsen overnight, X1L LR bolus adminstered. Ordered placed for stat ABGs. Blood culture growing GPC 3/4 bottles, patient remains afebrile with no leukocytosis. IV abx was escalated, ID consulted. Ortho consult is still pending, order placed for XR of the Rt. knee. Given patient worsen condition and high anio, gap, will continue insulin gtt for now. Low K and mg was repleted. Continue serial BMP,mg, and phosp 04/26/21- Patient appears more alert and awake this am, talkative, and following commands. Remains on DKA protocol, gap is closedX2, will transition patient to SSI and basal insulin and initiate enteral nutrition. Patient remains afebrile overnight, continue IV Abx per ID. 04/27/21- TASHA overnight. Patient mentation continue to improve. Worsening hyperglycemia, patient is tolerating TF. 70/30 added BID and SSI was adjusted to high dose Q4hrs. D/W CCM patient is stable for transfer to [facility] 04/28/21- Patient continue to improve. Remains drowsy this am, however, easily arousable. Now on 4L NC, still requiring Q4hrs NT suction due to increased secretions and weak cough. Continue to wean O2 supplement as tolerated, F/U CXR in the am. Continue IV Abx per ID. 04/29: Patient is awake and alert with strong cough and able to clear own airway . Ortho consult for right knee aspiration pending. 04/30: No acute events reported overnight, patient will be transferred to the floor. MR of right knee ordered. 05/01; patient had arthrocentesis 05/02; ID recommended total 6 weeks of Rocephin, case management to assist with antibiotics 05/02; patient is febrile, sepsis and positive cultures, currently on Rocephin, ID following 05/03; patient remains on tube feeding, speech therapist has not cleared for oral nutrition, aspiration risk Septic arthritis awaiting synovial debridement knee joint 05/04; blood sugars are uncontrolled Lantus insulin was stopped due to surgical procedure yesterday, Resumed Novolin 70/30, closely monitor and adjust the dose as needed 05/05; patient received 1 unit of PRBC yesterday, a.m. hemoglobin remains 6.8 after transfusion, recheck H&H, transfuse additional PRBC Patient remains on tube feedings, speech therapy following, on long-term antibiotics for her septic knee total 6 weeks 05/06/2021 Patient remains on tube feedings Speech therapy 6 weeks of antibiotics for septic arthritis If patient can swallow and tube feedings are discontinued--- patient can have IV antibiotics as outpatient Not ready for discharge 05/07: Patient seen and examined, remains quit ill, NG tube still in place hemoglobin is still 6.9 despite second unit transfusion done. Hard sure where this is coming from unsure why the patient is not able to eat. Will obtain MRI of the head to further evaluate and also obtain stool for occult blood to further elicit. In the meantime this is a painless delay in discharge and once that is rectified placement is already being pursued by case management. Dressing in the knee is in place. 05/08/20[address] still in place 05/09/2021 NG tube still in place 05/10/2021 Patient more alert and oriented NG tube still in place 05/11/2021 Patient is more alert and oriented NG tube is taken out 05/12/2021 Patient is able to eat Patient is alert and oriented Patient is ready for discharge and outpatient IV antibiotics for 4 to 5 weeks. 05/13/21 Anemia with Hgb 6.8. Transfuse 1 Unit PRBC 05/14/21 Patient transfused 1 Unit, now Hgb 7.7 05/15/21 Patient started on Pureed diet yesterday. Still has tube feed going Hgb 7.2 Will check stool occult blood Consult GI for anemia with hgb 6s. Stool occult blood neg 05/16/21 EGD done today:gastritis,erythema Colonoscopy postponed to tomorrow Labs pending today 05/17 patient with sepsis, right knee septic arthritis, metabolic encephalopathy. She had anemia s/p PRBC transfused EGD yesterday revealed gastritis For colonoscopy today Resume pureed diet after colonoscopy For Ceftriaxone iv till 06/14/21 ID also recommends re-eval by Ortho I have entered reconsult for Thursday since Dr. buchanan is out sick and Dr. Valentin comes back on Thursday05/18/21; continue current management Patient will be reevaluated by orthopedic surgeon on Thursday on 05/20/2021 Disposition per Ortho History Interval history: I have seen and examined the patient at the bedside Patient's chart and medications reviewed Patient is mild distress Minimally communicative Hospitalist Physical - Constitutional Vitals: Temp Pulse Resp BP Pulse Ox 98.5 F 102 H 16 149/76 97 05/18/21 16:31 05/18/21 16:31 05/18/21 16:31 05/18/21 16:31 05/18/21 16:31 General appearance: Present: no acute distress, well-nourished, obese - EENT Eyes: Present: PERRL, EOM intact - Neck Neck: Present: supple, normal ROM - Respiratory Respiratory effort: normal Respiratory: bilateral: diminished, negative: rales, rhonchi, wheezing - Cardiovascular Rhythm: regular Heart Sounds: Present: S1 & S2 - Extremities Extremities: no ischemia, No edema - Abdominal General gastrointestinal: soft, non-tender, non-distended, normal bowel sounds - Integumentary Integumentary: Present: clear, warm - Psychiatric Psychiatric: appropriate mood/affect, cooperative - Neurologic Neurologic: CNII-XII intact, moves all extremities HEART Score - HEART Score Troponin: Troponin T < 0.010 ng/mL (0.00-0.029) 04/23/21 10:33 Results - Labs CBC & Chem 7: 05/18/21 05:10 05/18/21 05:10 Labs: Laboratory Last Values WBC 10.8 K/mm3 (4.5-11.0) 05/18/21 05:10 RBC 2.94 M/mm3 (3.65-5.03) L 05/18/21 05:10 Hgb 7.7 gm/dl (10.1-14.3) L 05/18/21 05:10 Hct 24.5 % (30.3-42.9) L 05/18/21 05:10 MCV 83 fl (79-97) 05/18/21 05:10 MCH 26 pg (28-32) L 05/18/21 05:10 MCHC 31 % (30-34) 05/18/21 05:10 RDW 16.3 % (13.2-15.2) H 05/18/21 05:10 Plt Count 523 K/mm3 (140-440) H 05/18/21 05:10 Lymph % (Auto) 22.8 % (13.4-35.0) 05/07/21 Unknown Larue % (Auto) 4.4 % (0.0-7.3) 05/07/21 Unknown Eos % (Auto) 1.2 % (0.0-4.3) 05/07/21 Unknown Baso % (Auto) 0.9 % (0.0-1.8) 05/07/21 Unknown Lymph # (Auto) 1.7 K/mm3 (1.2-5.4) 05/07/21 Unknown Larue # (Auto) 0.3 K/mm3 (0.0-0.8) 05/07/21 Unknown Eos # (Auto) 0.1 K/mm3 (0.0-0.4) 05/07/21 Unknown Baso # (Auto) 0.1 K/mm3 (0.0-0.1) 05/07/21 Unknown Add Manual Diff Complete 04/25/21 08:10 Total Counted 100 04/25/21 08:10 Seg Neutrophils % 70.7 % (40.0-70.0) H 05/07/21 Unknown Seg Neuts % (Manual) 33.0 % (40.0-70.0) L 04/25/21 08:10 Band Neutrophils % 23.0 % 04/25/21 08:10 Lymphocytes % (Manual) 19.0 % (13.4-35.0) 04/25/21 08:10 Reactive Lymphs % (Man) 1.0 % 04/25/21 08:10 Monocytes % (Manual) 1.0 % (0.0-7.3) 04/25/21 08:10 Eosinophils % (Manual) 1.0 % (0.0-4.3) 04/25/21 08:10 Metamyelocytes % 3.0 % 04/23/21 10:33 Myelocytes % 22.0 % 04/25/21 08:10 Nucleated RBC % Not Reportable 04/25/21 08:10 Seg Neutrophils # 5.4 K/mm3 (1.8-7.7) 05/07/21 Unknown Seg Neutrophils # Man 1.9 K/mm3 (1.8-7.7) 04/25/21 08:10 Band Neutrophils # 1.3 K/mm3 04/25/21 08:10 Lymphocytes # (Manual) 1.1 K/mm3 (1.2-5.4) L 04/25/21 08:10 Abs React Lymphs (Man) 0.1 K/mm3 04/25/21 08:10 Monocytes # (Manual) 0.1 K/mm3 (0.0-0.8) 04/25/21 08:10 Eosinophils # (Manual) 0.1 K/mm3 (0.0-0.4) 04/25/21 08:10 Basophils # (Manual) 0.0 K/mm3 (0.0-0.1) 04/25/21 08:10 Metamyelocytes # 0.0 K/mm3 04/25/21 08:10 Myelocytes # 1.3 K/mm3 04/25/21 08:10 Promyelocytes # 0.0 K/mm3 04/25/21 08:10 Blast Cells # 0.0 K/mm3 04/25/21 08:10 WBC Morphology Not Reportable 04/25/21 08:10 Hypersegmented Neuts Not Reportable 04/25/21 08:10 Hyposegmented Neuts Not Reportable 04/25/21 08:10 Hypogranular Neuts Not Reportable 04/25/21 08:10 Smudge Cells Not Reportable 04/25/21 08:10 Toxic Granulation Not Reportable 04/25/21 08:10 Toxic Vacuolation Not Reportable 04/25/21 08:10 Dohle Bodies Not Reportable 04/25/21 08:10 Pelger-Huet Anomaly Not Reportable 04/25/21 08:10 Thierry Rods Not Reportable 04/25/21 08:10 Platelet Estimate Consistent w auto 04/25/21 08:10 Clumped Platelets Not Reportable 04/25/21 08:10 Plt Clumps, EDTA Not Reportable 04/25/21 08:10 Large Platelets Not Reportable 04/25/21 08:10 Giant Platelets Not Reportable 04/25/21 08:10 Platelet Satelliting Not Reportable 04/25/21 08:10 Plt Morphology Comment Not Reportable 04/25/21 08:10 RBC Morphology Not Reportable 04/25/21 08:10 Dimorphic RBCs Not Reportable 04/25/21 08:10 Polychromasia Not Reportable 04/25/21 08:10 Hypochromasia 1+ 04/25/21 08:10 Poikilocytosis Not Reportable 04/25/21 08:10 Anisocytosis Not Reportable 04/25/21 08:10 Microcytosis Not Reportable 04/25/21 08:10 Macrocytosis Not Reportable 04/25/21 08:10 Spherocytes Not Reportable 04/25/21 08:10 Pappenheimer Bodies Not Reportable 04/25/21 08:10 Sickle Cells Not Reportable 04/25/21 08:10 Target Cells Not Reportable 04/25/21 08:10 Tear Drop Cells Not Reportable 04/25/21 08:10 Ovalocytes Not Reportable 04/25/21 08:10 Helmet Cells Not Reportable 04/25/21 08:10 [place] Bodies Not Reportable 04/25/21 08:10 [place] Rings Not Reportable 04/25/21 08:10 [place] Cells Not Reportable 04/25/21 08:10 Bite Cells Not Reportable 04/25/21 08:10 Crenated Cell Not Reportable 04/25/21 08:10 Elliptocytes Not Reportable 04/25/21 08:10 Acanthocytes (Spur) Not Reportable 04/25/21 08:10 Rouleaux Not Reportable 04/25/21 08:10 Hemoglobin C Crystals Not Reportable 04/25/21 08:10 Schistocytes Not Reportable 04/25/21 08:10 Malaria parasites Not Reportable 04/25/21 08:10 Juan Bodies Not Reportable 04/25/21 08:10 Hem Pathologist Commnt No 04/25/21 08:10 PT 15.8 Sec. (12.2-14.9) H 05/15/21 13:04 INR 1.14 (0.87-1.13) H 05/15/21 13:04 ABG pH 7.426 pH Units (7.350-7.450) 04/25/21 11:20 ABG pCO2 25.3 mm Hg 04/25/21 11:20 ABG pO2 73.2 mm Hg (80.0-90.0) L 04/25/21 11:20 ABG HCO3 16.2 mmol/L (20.0-26.0) L 04/25/21 11:20 ABG O2 Saturation 96.9 % (95.0-99.0) 04/25/21 11:20 ABG O2 Content 11.6 (0.0-44) 04/25/21 11:20 ABG Base Excess -7.1 mmol/L (-2.0-3.0) L 04/25/21 11:20 ABG Hemoglobin 8.7 gm/dl (12.0-16.0) L 04/25/21 11:20 ABG Carboxyhemoglobin 1.6 % (0.0-5.0) 04/25/21 11:20 ABG Methemoglobin 0.6 % (0.0-1.5) 04/25/21 11:20 VBG pH 7.180 (7.320-7.420) L* 04/23/21 10:33 Oxyhemoglobin 94.8 % (95.0-99.0) L 04/25/21 11:20 FiO2 28 % 04/25/21 11:20 Sodium 137 mmol/L (137-145) 05/18/21 05:10 Potassium 3.8 mmol/L (3.6-5.0) 05/18/21 05:10 Chloride 100.7 mmol/L (98-107) 05/18/21 05:10 Carbon Dioxide 24 mmol/L (22-30) 05/18/21 05:10 Anion Gap 16 mmol/L 05/18/21 05:10 BUN 11 mg/dL (7-17) 05/18/21 05:10 Creatinine 0.8 mg/dL (0.6-1.2) 05/18/21 05:10 Estimated GFR > 60 ml/min 05/18/21 05:10 BUN/Creatinine Ratio 14 % 05/18/21 05:10 Glucose 235 mg/dL (65-100) H 05/18/21 05:10 POC Glucose 206 mg/dL (70-105) H 05/18/21 15:41 Hemoglobin A1c 18.3 % (4-6) H 04/24/21 04:16 Lactic Acid 1.70 mmol/L (0.7-2.0) 04/26/21 05:02 Uric Acid 7.5 mg/dL (3.5-7.6) 04/24/21 12:14 Calcium 7.9 mg/dL (8.4-10.2) L 05/18/21 05:10 Phosphorus 4.50 mg/dL (2.5-4.5) 04/30/21 04:41 Magnesium 2.10 mg/dL (1.7-2.3) 05/03/21 07:05 Total Bilirubin 0.50 mg/dL (0.1-1.2) 04/30/21 04:41 AST 12 units/L (5-40) 04/30/21 04:41 ALT 7 units/L (7-56) 04/30/21 04:41 Alkaline Phosphatase 171 units/L (35-129) H 04/30/21 04:41 Ammonia 37.0 umol/L (25-60) 04/23/21 10:33 Total Creatine Kinase 83 units/L (30-135) 04/23/21 10:33 Troponin T < 0.010 ng/mL (0.00-0.029) 04/23/21 10:33 C-Reactive Protein 24.30 mg/dL (0.00-1.30) H 04/24/21 18:24 Total Protein 6.1 g/dL (6.3-8.2) L 04/30/21 04:41 Albumin 1.4 g/dL (3.9-5) L 04/30/21 04:41 Albumin/Globulin Ratio 0.3 % 04/30/21 04:41 Procalcitonin 21.10 ng/mL (<0.15) 04/24/21 12:14 TSH 1.400 mlU/mL (0.270-4.200) 04/23/21 10:33 Urine Color Katie (Yellow) 04/27/21 16:16 Urine Turbidity Cloudy (Clear) 04/27/21 16:16 Urine pH 5.0 (5.0-7.0) 04/27/21 16:16 Ur Specific [place] 1.014 (1.003-1.030) 04/27/21 16:16 Urine Protein <15 mg/dl mg/dL (Negative) 04/27/21 16:16 Urine Glucose (UA) >=500 mg/dL (Negative) 04/27/21 16:16 Urine Ketones Neg mg/dL (Negative) 04/27/21 16:16 Urine Blood Neg (Negative) 04/27/21 16:16 Urine Nitrite Neg (Negative) 04/27/21 16:16 Urine Bilirubin Neg (Negative) 04/27/21 16:16 Urine Urobilinogen 2.0 mg/dL (<2.0) 04/27/21 16:16 Ur Leukocyte Esterase Neg (Negative) 04/27/21 16:16 Urine WBC (Auto) 1.0 /HPF (0.0-6.0) 04/27/21 16:16 Urine RBC (Auto) 1.0 /HPF (0.0-6.0) 04/27/21 16:16 U Epithel Cells (Auto) < 1.0 /HPF (0-13.0) 04/24/21 08:40 Urine Bacteria (Auto) 1+ /HPF (Negative) 04/27/21 16:16 Amorphous Crystals Few 04/27/21 16:16 Urine Yeast (Budding) 3+ /HPF 04/27/21 16:16 Vancomycin Trough 38.2 ug/mL (5.0-20.0) H 04/26/21 19:27 Coronavirus (PCR) Negative (Negative) 04/25/21 Unknown Blood Type A POSITIVE 05/13/21 13:20 Antibody Screen Negative 05/13/21 13:20 Crossmatch See Detail 05/13/21 13:20 Sanchez/IV: Voiding Method Indwelling Catheter Active Medications - Current Medications Current Medications: Generic Name Dose Route Start Last Admin Trade Name Freq PRN Reason Stop Dose Admin Acetaminophen 650 mg 04/23/21 11:54 05/13/21 17:29 Acetaminophen 325 Mg Tab PO 650 mg Q6H PRN Administration Pain MILD(1-3)/Fever >100.5/SMITH Albuterol 2.5 mg 05/02/21 12:56 05/07/21 04:22 Albuterol 2.5 Mg/3 Ml Nebu IH 2.5 mg Q4HRT PRN Administration Shortness Of Breath Lipase/Protease/Amylase 1 each 05/06/21 16:05 Lipase 10,500/Protease 25,000/Amylase 43,750 (Units) Dr Michael FEEDTUBE PRN PRN For Clogged Feeding Tube Dextrose 50 ml 04/26/21 14:00 05/15/21 16:00 Dextrose 50% In Water (25gm) 50 Ml Syringe IV 50 ml Q30MIN PRN Administration Hypoglycemia Protocol Heparin Sodium (Porcine) 5,000 unit 05/17/21 22:00 05/18/21 15:00 Heparin 5,000 Unit/1 Ml Vial SUB-Q 5,000 unit Q8HR AMIRA Administration Hydralazine HCl 10 mg 05/18/21 00:49 05/18/21 12:38 Hydralazine 20 Mg/1 Ml Inj IV 10 mg Q6HR PRN Administration Increased Blood Pressure Hydromorphone HCl 0.5 mg 04/23/21 11:54 05/18/21 15:59 Hydromorphone 1 Mg/1 Ml Inj IV 0.5 mg Q23H PRN Administration Pain , Severe (7-10) Cefazolin Sodium 2 gm/ Sodium 100 mls @ 200 mls/hr 05/02/21 14:00 05/18/21 15:00 Chloride IV 06/14/21 20:29 200 mls/hr Q6H AMIRA Administration Protocol Sodium Chloride 1,000 mls @ 50 mls/hr 05/16/21 09:00 05/16/21 13:47 Nacl 0.9% 1000 Ml IV 50 mls/hr DIRECT AMIRA Administration Insulin Human Isoph/Insulin Regular 10 unit 05/16/21 08:00 05/18/21 17:17 Insulin Nph/Regular 70/30 Inj SUB-Q 10 unit BIDDIAB AMIRA Administration Insulin Human Lispro 0 unit 04/29/21 12:00 05/18/21 17:17 Insulin Lispro 100 Unit/Ml SUB-Q 4 unit Q6HR AMIRA Administration Protocol Lansoprazole 30 mg 05/16/21 11:00 05/18/21 09:34 Lansoprazole 30 Mg Solutab FEEDTUBE 30 mg QDAY AMIRA Administration Metoclopramide HCl 5 mg 05/08/21 08:00 05/18/21 16:00 Metoclopramide 10 Mg/10 Ml Oral Liqd FEEDTUBE 5 mg ACHS AMIRA Administration Morphine Sulfate 2 mg 05/03/21 18:59 05/15/21 13:43 Morphine 2 Mg/1 Ml Inj IV 2 mg Q4H PRN Administration Pain, Moderate (4-6) Morphine Sulfate 4 mg 05/03/21 18:59 05/16/21 18:07 Morphine 4 Mg/1 Ml Inj IV 4 mg Q4H PRN Administration Pain , Severe (7-10) Oxycodone/Acetaminophen 1 tab 04/23/21 11:54 05/15/21 21:26 Oxycodone /Acetaminophen 5-325mg Tab PO 1 tab Q16H PRN Administration Pain, Moderate (4-6) Senna 17.2 mg 04/25/21 22:00 05/17/21 22:56 Sennosides 8.6 Mg Tab PO 17.2 mg QHS AMIRA Administration Simple Syrup 15 ml 05/06/21 16:05 Simple Syrup 15 Ml FEEDTUBE PRN PRN Hypoglycemia Simple Syrup 30 ml 05/06/21 16:05 Simple Syrup 15 Ml FEEDTUBE PRN PRN Hypoglycemia Sodium Bicarbonate 325 mg 05/06/21 16:05 Sodium Bicarbonate 325 Mg Tab FEEDTUBE PRN PRN For Clogged Feeding Tube Sodium Chloride 10 ml 04/23/21 22:00 05/18/21 09:34 Sodium Chloride 0.9% 10 Ml Flush Syringe IV 10 ml BID AMIRA Administration Sodium Chloride 10 ml 04/23/21 11:54 04/24/21 11:15 Sodium Chloride 0.9% 10 Ml Flush Syringe IV 10 ml PRN PRN Administration LINE FLUSH Nutrition/Malnutrition Assess - Dietary Evaluation Nutrition/Malnutrition Findings: Nutrition Notes Start: 04/26/21 09:53 Freq: Status: Active Protocol: Document 05/13/21 12:20 JAIMIE (Rec: 05/13/21 12:38 JAIMIE [id number]) Nutrition Notes Current Diet TF-Vital AF 1.2 Daniel @ 65 ml/hr (since D 05/06). Height 5 ft 8 in Weight 158.6 kg Forbes Body Weight (kg) 63.63 BMI 53.1 Weight change and time frame No body weight change reported . Weight Status Morbidly Obese Subjective/Other Information RD consult for routine F/U on TF tolerance. No body weight change reported . TF well tolerated, continue as is. Percent of energy/protein needs met: Prescribed TF-Vital AF 1.2 Daniel @ 65 ml/hr provides for energy/protein needs (1,804 Kcal/77 g) 107% Kcal; 84% AA, during LOS. Nutrition Intervention Nutrition Support: Continue Vital AF 1.2 @ 65 ml/ hr with 100 ml water flush Q 4h. Kcal 1,860 Protein (gm) 116 Carbohydrates (gm) 171 Fat (gm) 84 Fluid (mL) 1,257 Fiber (gm) 8 % RDI: 107% Kcal; 84% AA. Goal #1 Provide at least 75% of energy /protein needs through Enteral Feeding during LOS. Goal #2 Maintain body weight within +/ -3% of admission body weight during LOS. Goal #3 Reach and maintain acceptable chemistry lab values during LOS. Follow-Up By: 05/20/21 Additional Comments Continue monitoring TF tolerance, Hydration, and BM.
--- NOTE | 2021-05-18 17:46 | Progress Note ---
Assessment and Plan Assessment and plan: This is a 51-year-old female with DM, noncompliance, obesity, arthritis and right knee surgery admitted for DKA, oropharyngeal dysphagia on tube feeding Speech therapist following, patient has septic arthritis and severe sepsis on long-term antibiotics Rocephin total 6 weeks., Anemia with 6.8 hemoglobin, received 1 unit PRBC yesterday, this morning hemoglobin 6.8, will recheck Hb and transfuse additional PRBC if needed -Anemia; Hb 6.8-6.9--7.7 Received total 4 units of PRBC transfusion Status post colonoscopy Closely monitor H&H and transfuse as needed --Oropharyngeal dysphagia; tolerating oral nutrition Patient is on tube feeding till recently Tolerating oral diet, awaiting placement --Septic arthritis; knee; Ortho is planning knee/synovial debridement 04/30/2021;s/p arthrocentesis 05/03/2021 s/p Incision and drainage followed by arthroscopic exam of the right knee Continue antibiotics per ID total 6 weeks -- Sepsis, group B Streptococcus bacteremia, h/o right septic arthritis -Infectious disease consulted, appreciate recommendations -ABX therapy per ID: Ceftriaxone 2 g every 24 hours -Right knee x-ray shows large joint effusion s/p arthrocentesis Positive synovial fluid cultures, ID recommended total 6 weeks of Rocephin --Acute metabolic encephalopathy (improved significantly) Patient is more alert and awake, supportive care -Echocardiogram shows mildly dilated right heart chamber, mild to moderate TR, moderate pulmonary hypertension, RVSP 50-55, LVEF 45-50 --Respiratory: Acute hypoxic respiratory failure Nasal cannula oxygen, intermittent BiPAP Home O2 evaluation --Severe protein calorie malnutrition --Hypoalbuminemia, albumin 1.7 Dietitian/senior systems administrator following Continue tube feeding, nutrition supplements Supportive care -- Hypernatremia (resolved) Closely monitor electrolytes --Leukocytosis/trending down Secondary to sepsis, continue antibiotics and supportive care Closely monitor --S/p DKA, h/o uncontrolled DM/present on admission -Hemoglobin A1c 18.3 Blood sugars moderate control -Avoid hypoglycemia Accu-Chek sliding scale coverage tube feeding Glucerna --DVT prophylaxis Subcu Lovenox --Full CODE STATUS Discharge planning issues Patient is able to eat Physical therapy Placement issues are Outpatient antibiotic therapy To discuss with case management DC planning per case management Long-term antibiotics 6 weeks PICC line per ID PT recommends subacute Patient will be discharged when medically stable Subjective Date of service: 05/19/2021 Principal diagnosis: HAGMA; DKA; AMS; Obesity; Osteoarthritis; Hypercalcemia Interval history: Brief history and daily hospital course This is a 51-year-old female with DM, OA, medication noncompliance, obesity who presented to emergency department on 04/23 with complaints of weakness, elevated blood glucose levels, nausea, polydipsia, polyuria and diminished oral intake ov er the past week with worsening symptoms over the past 2 days. Patient acknowledges noncompliance with oral antihyperglycemic therapy. Patient was seen and evaluated in the emergency department and found to have lab work consistent with diabetic ketoacidosis, metabolic encephalopathy, metabolic ac idosis and volume depletion. Patient was admitted to the hospital service to the ICU initiated DKA protocol with CCM consult. 04/24/21- Patient remains on DKA protocol. Still very lethargic this am, following simple commands. Rt. knee wound and swelling noted, and nursing staff also reported thick, white vaginal discharge. C/f sepsis, blood culture ordered, this am UA noted. Will start patient on PO difflucan for possible yeast infection, pending culture data. Anion GAP is still 18 this am, will continue DKA protocol for now. Continue to monitor electrolytes, serial BMP ordered. 04/25/21- Patient appears to be in distress this am, now on 3L NC. Lactic acidosis worsen overnight, X1L LR bolus adminstered. Ordered placed for stat ABGs. Blood culture growing GPC 3/4 bottles, patient remains afebrile with no leukocytosis. IV abx was escalated, ID consulted. Ortho consult is still pending, order placed for XR of the Rt. knee. Given patient worsen condition and high anio, gap, will continue insulin gtt for now. Low K and mg was repleted. Continue serial BMP,mg, and phosp 04/26/21- Patient appears more alert and awake this am, talkative, and following commands. Remains on DKA protocol, gap is closedX2, will transition patient to SSI and basal insulin and initiate enteral nutrition. Patient remains afebrile overnight, continue IV Abx per ID. 04/27/21- TASHA overnight. Patient mentation continue to improve. Worsening hyperglycemia, patient is tolerating TF. 70/30 added BID and SSI was adjusted to high dose Q4hrs. D/[facility] patient is stable for transfer to [facility] 04/28/21- Patient continue to improve. Remains drowsy this am, however, easily arousable. Now on 4L NC, still requiring Q4hrs NT suction due to increased secretions and weak cough. Continue to wean O2 supplement as tolerated, F/U CXR in the am. Continue IV Abx per ID. 04/29: Patient is awake and alert with strong cough and able to clear own airway. Ortho consult for right knee aspiration pending. 04/30: No acute events reported overnight, patient will be transferred to the floor. MR of right knee ordered. 05/01; patient had arthrocentesis 05/02; ID recommended total 6 weeks of Rocephin, case management to assist with antibiotics 05/02; patient is febrile, sepsis and positive cultures, currently on Rocephin, ID following 05/03; patient remains on tube feeding, speech therapist has not cleared for oral nutrition, aspiration risk Septic arthritis awaiting synovial debridement knee joint 05/04; blood sugars are uncontrolled Lantus insulin was stopped due to surgical procedure yesterday, Resumed Novolin 70/30, closely monitor and adjust the dose as needed 05/05; patient received 1 unit of PRBC yesterday, a.m. hemoglobin remains 6.8 after transfusion, recheck H&H, transfuse additional PRBC Patient remains on tube feedings, speech therapy following, on long-term antibiotics for her septic knee total 6 weeks 05/06/2021 Patient remains on tube feedings Speech therapy 6 weeks of antibiotics for septic arthritis If patient can swallow and tube feedings are discontinued--- patient can have IV antibiotics as outpatient Not ready for discharge 05/07: Patient seen and examined, remains quit ill, NG tube still in place hemoglobin is still 6.9 despite second unit transfusion done. Hard sure where t his is coming from unsure why the patient is not able to eat. Will obtain MRI of the head to further evaluate and also obtain stool for occult blood to further elicit. In the meantime this is a painless delay in discharge and once that is rectified placement is already being pursued by case management. Dressing in the knee is in place. 05/08/20[address] still in place 05/09/2021 NG tube still in place 05/10/2021 Patient more alert and oriented NG tube still in place 05/11/2021 Patient is more alert and oriented NG tube is taken out 05/12/2021 Patient is able to eat Patient is alert and oriented Patient is ready for discharge and outpatient IV antibiotics for 4 to 5 weeks. 05/13/21 Anemia with Hgb 6.8. Transfuse 1 Unit PRBC 05/14/21 Patient transfused 1 Unit, now Hgb 7.7 05/15/21 Patient started on Pureed diet yesterday. Still has tube feed going Hgb 7.2 Will check stool occult blood Consult GI for anemia with hgb 6s. Stool occult blood neg 05/16/21 EGD done today:gastritis,erythema Colonoscopy postponed to tomorrow Labs pending today 05/17 patient with sepsis, right knee septic arthritis, metabolic encephalopathy. She had anemia s/p PRBC transfused EGD yesterday revealed gastritis For colonoscopy today Resume pureed diet after colonoscopy For Ceftriaxone iv till 06/14/21 ID also recommends re-eval by Ortho I have entered reconsult for Thursday since Dr. buchanan is out sick and Dr. Valentin comes back on Thursday05/18/21; continue current management Patient will be reevaluated by orthopedic surgeon on Thursday on 05/20/2021 Disposition per Ortho 05/19/2021; long-term antibiotics for 6 weeks per ID PICC line, PT recommended subacute rehab, DC planning per case management History Interval history: I have seen and examined the patient at the bedside Patient's chart and medications reviewed Patient with recent right knee surgery Complains of some pain No fever Hospitalist Physical - Constitutional Vitals: Temp Pulse Resp BP Pulse Ox 98.5 F 102 H 16 149/76 97 05/18/21 16:31 05/18/21 16:31 05/18/21 16:31 05/18/21 16:31 05/18/21 16:31 General appearance: Present: no acute distress, well-nourished, obese - EENT Eyes: Present: PERRL, EOM intact - Neck Neck: Present: supple, normal ROM - Respiratory Respiratory effort: normal Respiratory: bilateral: diminished, negative: rales, rhonchi, wheezing - Cardiovascular Rhythm: regular Heart Sounds: Present: S1 & S2 - Extremities Extremities: no ischemia, abnormal (Right septic arthritis knee) - Abdominal General gastrointestinal: soft, non-tender, non-distended, normal bowel sounds - Integumentary Integumentary: Present: clear, warm - Psychiatric Psychiatric: appropriate mood/affect, cooperative - Neurologic Neurologic: moves all extremities HEART Score - HEART Score Troponin: Troponin T < 0.010 ng/mL (0.00-0.029) 04/23/21 10:33 Results - Labs CBC & Chem 7: 05/18/21 05:10 05/18/21 05:10 Labs: Laboratory Last Values WBC 10.8 K/mm3 (4.5-11.0) 05/18/21 05:10 RBC 2.94 M/mm3 (3.65-5.03) L 05/18/21 05:10 Hgb 7.7 gm/dl (10.1-14.3) L 05/18/21 05:10 Hct 24.5 % (30.3-42.9) L 05/18/21 05:10 MCV 83 fl (79-97) 05/18/21 05:10 MCH 26 pg (28-32) L 05/18/21 05:10 MCHC 31 % (30-34) 05/18/21 05:10 RDW 16.3 % (13.2-15.2) H 05/18/21 05:10 Plt Count 523 K/mm3 (140-440) H 05/18/21 05:10 Lymph % (Auto) 22.8 % (13.4-35.0) 05/07/21 Unknown [place] % (Auto) 4.4 % (0.0-7.3) 05/07/21 Unknown Eos % (Auto) 1.2 % (0.0-4.3) 05/07/21 Unknown Baso % (Auto) 0.9 % (0.0-1.8) 05/07/21 Unknown Lymph # (Auto) 1.7 K/mm3 (1.2-5.4) 05/07/21 Unknown Trinity # (Auto) 0.3 K/mm3 (0.0-0.8) 05/07/21 Unknown Eos # (Auto) 0.1 K/mm3 (0.0-0.4) 05/07/21 Unknown Baso # (Auto) 0.1 K/mm3 (0.0-0.1) 05/07/21 Unknown Add Manual Diff Complete 04/25/21 08:10 Total Counted 100 04/25/21 08:10 Seg Neutrophils % 70.7 % (40.0-70.0) H 05/07/21 Unknown Seg Neuts % (Manual) 33.0 % (40.0-70.0) L 04/25/21 08:10 Band Neutrophils % 23.0 % 04/25/21 08:10 Lymphocytes % (Manual) 19.0 % (13.4-35.0) 04/25/21 08:10 Reactive Lymphs % (Man) 1.0 % 04/25/21 08:10 Monocytes % (Manual) 1.0 % (0.0-7.3) 04/25/21 08:10 Eosinophils % (Manual) 1.0 % (0.0-4.3) 04/25/21 08:10 Metamyelocytes % 3.0 % 04/23/21 10:33 Myelocytes % 22.0 % 04/25/21 08:10 Nucleated RBC % Not Reportable 04/25/21 08:10 Seg Neutrophils # 5.4 K/mm3 (1.8-7.7) 05/07/21 Unknown Seg Neutrophils # Man 1.9 K/mm3 (1.8-7.7) 04/25/21 08:10 Band Neutrophils # 1.3 K/mm3 04/25/21 08:10 Lymphocytes # (Manual) 1.1 K/mm3 (1.2-5.4) L 04/25/21 08:10 Abs React Lymphs (Man) 0.1 K/mm3 04/25/21 08:10 Monocytes # (Manual) 0.1 K/mm3 (0.0-0.8) 04/25/21 08:10 Eosinophils # (Manual) 0.1 K/mm3 (0.0-0.4) 04/25/21 08:10 Basophils # (Manual) 0.0 K/mm3 (0.0-0.1) 04/25/21 08:10 Metamyelocytes # 0.0 K/mm3 04/25/21 08:10 Myelocytes # 1.3 K/mm3 04/25/21 08:10 Promyelocytes # 0.0 K/mm3 04/25/21 08:10 Blast Cells # 0.0 K/mm3 04/25/21 08:10 WBC Morphology Not Reportable 04/25/21 08:10 Hypersegmented Neuts Not Reportable 04/25/21 08:10 Hyposegmented Neuts Not Reportable 04/25/21 08:10 Hypogranular Neuts Not Reportable 04/25/21 08:10 Smudge Cells Not Reportable 04/25/21 08:10 Toxic Granulation Not Reportable 04/25/21 08:10 Toxic Vacuolation Not Reportable 04/25/21 08:10 Dohle Bodies Not Reportable 04/25/21 08:10 Pelger-Huet Anomaly Not Reportable 04/25/21 08:10 Thierry Rods Not Reportable 04/25/21 08:10 Platelet Estimate Consistent w auto 04/25/21 08:10 Clumped Platelets Not Reportable 04/25/21 08:10 Plt Clumps, EDTA Not Reportable 04/25/21 08:10 Large Platelets Not Reportable 04/25/21 08:10 Giant Platelets Not Reportable 04/25/21 08:10 Platelet Satelliting Not Reportable 04/25/21 08:10 Plt Morphology Comment Not Reportable 04/25/21 08:10 RBC Morphology Not Reportable 04/25/21 08:10 Dimorphic RBCs Not Reportable 04/25/21 08:10 Polychromasia Not Reportable 04/25/21 08:10 Hypochromasia 1+ 04/25/21 08:10 Poikilocytosis Not Reportable 04/25/21 08:10 Anisocytosis Not Reportable 04/25/21 08:10 Microcytosis Not Reportable 04/25/21 08:10 Macrocytosis Not Reportable 04/25/21 08:10 Spherocytes Not Reportable 04/25/21 08:10 Pappenheimer Bodies Not Reportable 04/25/21 08:10 Sickle Cells Not Reportable 04/25/21 08:10 Target Cells Not Reportable 04/25/21 08:10 Tear Drop Cells Not Reportable 04/25/21 08:10 Ovalocytes Not Reportable 04/25/21 08:10 Helmet Cells Not Reportable 04/25/21 08:10 [place] Bodies Not Reportable 04/25/21 08:10 Glade Rings Not Reportable 04/25/21 08:10 [place] Cells Not Reportable 04/25/21 08:10 Bite Cells Not Reportable 04/25/21 08:10 Crenated Cell Not Reportable 04/25/21 08:10 Elliptocytes Not Reportable 04/25/21 08:10 Acanthocytes (Spur) Not Reportable 04/25/21 08:10 Rouleaux Not Reportable 04/25/21 08:10 Hemoglobin C Crystals Not Reportable 04/25/21 08:10 Schistocytes Not Reportable 04/25/21 08:10 Malaria parasites Not Reportable 04/25/21 08:10 Juan Bodies Not Reportable 04/25/21 08:10 Hem Pathologist Commnt No 04/25/21 08:10 PT 15.8 Sec. (12.2-14.9) H 05/15/21 13:04 INR 1.14 (0.87-1.13) H 05/15/21 13:04 ABG pH 7.426 pH Units (7.350-7.450) 04/25/21 11:20 ABG pCO2 25.3 mm Hg 04/25/21 11:20 ABG pO2 73.2 mm Hg (80.0-90.0) L 04/25/21 11:20 ABG HCO3 16.2 mmol/L (20.0-26.0) L 04/25/21 11:20 ABG O2 Saturation 96.9 % (95.0-99.0) 04/25/21 11:20 ABG O2 Content 11.6 (0.0-44) 04/25/21 11:20 ABG Base Excess -7.1 mmol/L (-2.0-3.0) L 04/25/21 11:20 ABG Hemoglobin 8.7 gm/dl (12.0-16.0) L 04/25/21 11:20 ABG Carboxyhemoglobin 1.6 % (0.0-5.0) 04/25/21 11:20 ABG Methemoglobin 0.6 % (0.0-1.5) 04/25/21 11:20 VBG pH 7.180 (7.320-7.420) L* 04/23/21 10:33 Oxyhemoglobin 94.8 % (95.0-99.0) L 04/25/21 11:20 FiO2 28 % 04/25/21 11:20 Sodium 137 mmol/L (137-145) 05/18/21 05:10 Potassium 3.8 mmol/L (3.6-5.0) 05/18/21 05:10 Chloride 100.7 mmol/L (98-107) 05/18/21 05:10 Carbon Dioxide 24 mmol/L (22-30) 05/18/21 05:10 Anion Gap 16 mmol/L 05/18/21 05:10 BUN 11 mg/dL (7-17) 05/18/21 05:10 Creatinine 0.8 mg/dL (0.6-1.2) 05/18/21 05:10 Estimated GFR > 60 ml/min 05/18/21 05:10 BUN/Creatinine Ratio 14 % 05/18/21 05:10 Glucose 235 mg/dL (65-100) H 05/18/21 05:10 POC Glucose 206 mg/dL (70-105) H 05/18/21 15:41 Hemoglobin A1c 18.3 % (4-6) H 04/24/21 04:16 Lactic Acid 1.70 mmol/L (0.7-2.0) 04/26/21 05:02 Uric Acid 7.5 mg/dL (3.5-7.6) 04/24/21 12:14 Calcium 7.9 mg/dL (8.4-10.2) L 05/18/21 05:10 Phosphorus 4.50 mg/dL (2.5-4.5) 04/30/21 04:41 Magnesium 2.10 mg/dL (1.7-2.3) 05/03/21 07:05 Total Bilirubin 0.50 mg/dL (0.1-1.2) 04/30/21 04:41 AST 12 units/L (5-40) 04/30/21 04:41 ALT 7 units/L (7-56) 04/30/21 04:41 Alkaline Phosphatase 171 units/L (35-129) H 04/30/21 04:41 Ammonia 37.0 umol/L (25-60) 04/23/21 10:33 Total Creatine Kinase 83 units/L (30-135) 04/23/21 10:33 Troponin T < 0.010 ng/mL (0.00-0.029) 04/23/21 10:33 C-Reactive Protein 24.30 mg/dL (0.00-1.30) H 04/24/21 18:24 Total Protein 6.1 g/dL (6.3-8.2) L 04/30/21 04:41 Albumin 1.4 g/dL (3.9-5) L 04/30/21 04:41 Albumin/Globulin Ratio 0.3 % 04/30/21 04:41 Procalcitonin 21.10 ng/mL (<0.15) 04/24/21 12:14 TSH 1.400 mlU/mL (0.270-4.200) 04/23/21 10:33 Urine Color Katie (Yellow) 04/27/21 16:16 Urine Turbidity Cloudy (Clear) 04/27/21 16:16 Urine pH 5.0 (5.0-7.0) 04/27/21 16:16 Ur Specific [place] 1.014 (1.003-1.030) 04/27/21 16:16 Urine Protein <15 mg/dl mg/dL (Negative) 04/27/21 16:16 Urine Glucose (UA) >=500 mg/dL (Negative) 04/27/21 16:16 Urine Ketones Neg mg/dL (Negative) 04/27/21 16:16 Urine Blood Neg (Negative) 04/27/21 16:16 Urine Nitrite Neg (Negative) 04/27/21 16:16 Urine Bilirubin Neg (Negative) 04/27/21 16:16 Urine Urobilinogen 2.0 mg/dL (<2.0) 04/27/21 16:16 Ur Leukocyte Esterase Neg (Negative) 04/27/21 16:16 Urine WBC (Auto) 1.0 /HPF (0.0-6.0) 04/27/21 16:16 Urine RBC (Auto) 1.0 /HPF (0.0-6.0) 04/27/21 16:16 U Epithel Cells (Auto) < 1.0 /HPF (0-13.0) 04/24/21 08:40 Urine Bacteria (Auto) 1+ /HPF (Negative) 04/27/21 16:16 Amorphous Crystals Few 04/27/21 16:16 Urine Yeast (Budding) 3+ /HPF 04/27/21 16:16 Vancomycin Trough 38.2 ug/mL (5.0-20.0) H 04/26/21 19:27 Coronavirus (PCR) Negative (Negative) 04/25/21 Unknown Blood Type A POSITIVE 05/13/21 13:20 Antibody Screen Negative 05/13/21 13:20 Crossmatch See Detail 05/13/21 13:20 Sanchez/IV: Voiding Method Indwelling Catheter Active Medications - Current Medications Current Medications: Generic Name Dose Route Start Last Admin Trade Name Freq PRN Reason Stop Dose Admin Acetaminophen 650 mg 04/23/21 11:54 05/13/21 17:29 Acetaminophen 325 Mg Tab PO 650 mg Q6H PRN Administration Pain MILD(1-3)/Fever >100.5/SMITH Albuterol 2.5 mg 05/02/21 12:56 05/07/21 04:22 Albuterol 2.5 Mg/3 Ml Nebu IH 2.5 mg Q4HRT PRN Administration Shortness Of Breath Lipase/Protease/Amylase 1 each 05/06/21 16:05 Lipase 10,500/Protease 25,000/Amylase 43,750 (Units) Dr Rodriguez FEEDTUBE PRN PRN For Clogged Feeding Tube Dextrose 50 ml 04/26/21 14:00 05/15/21 16:00 Dextrose 50% In Water (25gm) 50 Ml Syringe IV 50 ml Q30MIN PRN Administration Hypoglycemia Protocol Heparin Sodium (Porcine) 5,000 unit 05/17/21 22:00 05/18/21 15:00 Heparin 5,000 Unit/1 Ml Vial SUB-Q 5,000 unit Q8HR AMIRA Administration Hydralazine HCl 10 mg 05/18/21 00:49 05/18/21 12:38 Hydralazine 20 Mg/1 Ml Inj IV 10 mg Q6HR PRN Administration Increased Blood Pressure Hydromorphone HCl 0.5 mg 04/23/21 11:54 05/18/21 15:59 Hydromorphone 1 Mg/1 Ml Inj IV 0.5 mg Q23H PRN Administration Pain , Severe (7-10) Cefazolin Sodium 2 gm/ Sodium 100 mls @ 200 mls/hr 05/02/21 14:00 05/18/21 15:00 Chloride IV 06/14/21 20:29 200 mls/hr Q6H AMIRA Administration Protocol Sodium Chloride 1,000 mls @ 50 mls/hr 05/16/21 09:00 05/16/21 13:47 Nacl 0.9% 1000 Ml IV 50 mls/hr DIRECT AMIRA Administration Insulin Human Isoph/Insulin Regular 10 unit 05/16/21 08:00 05/18/21 17:17 Insulin Nph/Regular 70/30 Inj SUB-Q 10 unit BIDDIAB AMIRA Administration Insulin Human Lispro 0 unit 04/29/21 12:00 05/18/21 17:17 Insulin Lispro 100 Unit/Ml SUB-Q 4 unit Q6HR AMIRA Administration Protocol Lansoprazole 30 mg 05/16/21 11:00 05/18/21 09:34 Lansoprazole 30 Mg Solutab FEEDTUBE 30 mg QDAY AMIRA Administration Metoclopramide HCl 5 mg 05/08/21 08:00 05/18/21 16:00 Metoclopramide 10 Mg/10 Ml Oral Liqd FEEDTUBE 5 mg ACHS AMIRA Administration Morphine Sulfate 2 mg 05/03/21 18:59 05/15/21 13:43 Morphine 2 Mg/1 Ml Inj IV 2 mg Q4H PRN Administration Pain, Moderate (4-6) Morphine Sulfate 4 mg 05/03/21 18:59 05/16/21 18:07 Morphine 4 Mg/1 Ml Inj IV 4 mg Q4H PRN Administration Pain , Severe (7-10) Oxycodone/Acetaminophen 1 tab 04/23/21 11:54 05/15/21 21:26 Oxycodone /Acetaminophen 5-325mg Tab PO 1 tab Q16H PRN Administration Pain, Moderate (4-6) Senna 17.2 mg 04/25/21 22:00 05/17/21 22:56 Sennosides 8.6 Mg Tab PO 17.2 mg QHS AMIRA Administration Simple Syrup 15 ml 05/06/21 16:05 Simple Syrup 15 Ml FEEDTUBE PRN PRN Hypoglycemia Simple Syrup 30 ml 05/06/21 16:05 Simple Syrup 15 Ml FEEDTUBE PRN PRN Hypoglycemia Sodium Bicarbonate 325 mg 05/06/21 16:05 Sodium Bicarbonate 325 Mg Tab FEEDTUBE PRN PRN For Clogged Feeding Tube Sodium Chloride 10 ml 04/23/21 22:00 05/18/21 09:34 Sodium Chloride 0.9% 10 Ml Flush Syringe IV 10 ml BID AMIRA Administration Sodium Chloride 10 ml 04/23/21 11:54 04/24/21 11:15 Sodium Chloride 0.9% 10 Ml Flush Syringe IV 10 ml PRN PRN Administration LINE FLUSH Nutrition/Malnutrition Assess - Dietary Evaluation Nutrition/Malnutrition Findings: Nutrition Notes Start: 04/26/21 09:53 Freq: Status: Active Protocol: Document 05/13/21 12:20 JAIMIE (Rec: 05/13/21 12:38 JAIMIE [id number]) Nutrition Notes Current Diet TF-Vital AF 1.2 Daniel @ 65 ml/hr (since D 05/06). Height 5 ft 8 in Weight 158.6 kg [place] Body Weight (kg) 63.63 BMI 53.1 Weight change and time frame No body weight change reported . Weight Status Morbidly Obese Subjective/Other Information RD consult for routine F/U on TF tolerance. No body weight change reported . TF well tolerated, continue as is. Percent of energy/protein needs met: Prescribed TF-Vital AF 1.2 Daniel @ 65 ml/hr provides for energy/protein needs (1,804 Kcal/77 g) 107% Kcal; 84% AA, during LOS. Nutrition Intervention Nutrition Support: Continue Vital AF 1.2 @ 65 ml/ hr with 100 ml water flush Q 4h. Kcal 1,860 Protein (gm) 116 Carbohydrates (gm) 171 Fat (gm) 84 Fluid (mL) 1,257 Fiber (gm) 8 % RDI: 107% Kcal; 84% AA. Goal #1 Provide at least 75% of energy /protein needs through Enteral Feeding during LOS. Goal #2 Maintain body weight within +/ -3% of admission body weight during LOS. Goal #3 Reach and maintain acceptable chemistry lab values during LOS. Follow-Up By: 05/20/21 Additional Comments Continue monitoring TF tolerance, Hydration, and BM.
--- NOTE | 2021-05-18 21:01 | Progress Note ---
Assessment and Plan 51 YO Female with DM, OA, Medication Noncompliance, Obesity presents to ED for evaluation. Patient reports "I feel sick". Patient states she had experienced weakness, elevated blood glucose levels, nausea, polydipsia, polyuria, as well a s diminished oral intake over the past 1 week with worsening symptoms over the last 2 days. Patient acknowledges noncompliance with oral antihyperglycemic therapy. Patient states that her weight has gotten progressively worse and and that she is "too weak to walk". EMS was notified and upon arrival the patient was found to be in distress and subsequent transported to [facility] for further care and evaluation of the aforementioned symptoms. The patient was seen and evaluated in the emergency department. All lab and imaging studies reviewed. The patient was found to have diabetic ketoacidosis, metabolic encephalopathy, as well as metabolic acidosis, and volume depletion. Patient mated to ICU and initiated on DKA protocol. Critical care team consulted in ED. Patient has fever, chills, chest pain, palpitation, productive cough, skin rash, recent contact, known exposure to COVID-1 Patients sullivan virus PCR is negative. Patient is sleeping. But arousable. Patient is on 2 litres O2. O2 saturation 98%. No Complaint of chest pain, shortness of breath or cough Patient is afebrile. No leukocytosis. Blood pressure 146/75, Pulse 103, respirations 18. Today's Hgb is 7.7. Patient received a blood transfusion. Chest xray done 04/29/21 reported Low lung volumes with bibasilar opacities/atelectasis persists, unchanged. No pneumothorax. Chest xray done 05/08/21 reported table, mild increased densities and atelectasis in the lower lungs. No pneumothorax. Chest xray done 05/13/21 reported Increased interstitial prominence in bilateral lungs. Elevation right hemidiaphragm with right lower lung atelectasis No pneumothorax. Patient had right knee surgery. Patient is on Cefazolin, Albuterol aerosol treatments and Prevacid and S/C Heparin. - Patient Problems (1) High anion gap metabolic acidosis Current Visit: Yes Status: Acute Plan to address problem: Improving. To days anion gap is 16 (2) DKA (diabetic ketoacidosis) Current Visit: Yes Status: Acute Qualifiers: Diabetes mellitus type: type 1 Plan to address problem: Improving. Management as primary care. (3) Metabolic encephalopathy Current Visit: Yes Status: Acute Plan to address problem: Management as primary care and neurology. (4) Abscess of right foot Current Visit: No Status: Acute Plan to address problem: Management as primary care and ID Patient on Cefazolin (5) Diabetic ulcer of right foot associated with diabetes mellitus due to underlying condition, with fat layer exposed Current Visit: No Status: Acute Plan to address problem: Management as per primary care. (6) Hypertension Current Visit: No Status: Chronic Plan to address problem: Management as primary care. Subjective Date of service: 05/18/21 Principal diagnosis: HAGMA; DKA; AMS; Obesity; Osteoarthritis; Hypercalcemia Interval history: 51 YO Female with DM, OA, Medication Noncompliance, Obesity presents to ED for evaluation. Patient reports "I feel sick". Patient states she had experienced weakness, elevated blood glucose levels, nausea, polydipsia, polyuria, as well as diminished oral intake over the past 1 week with worsening symptoms over the last 2 days. Patient acknowledges noncompliance with oral antihyperglycemic therapy. Patient states that her weight has gotten progressively worse and and that she is "too weak to walk". EMS was notified and upon arrival the patient was found to be in distress and subsequent transported to [facility] for further care and evaluation of the aforementioned symptoms. The patient was seen and evaluated in the emergency department. All lab and imaging studies reviewed. The patient was found to have diabetic ketoacidosis, metabolic encephalopathy, as well as metabolic acidosis, and volume depletion. Patient mated to ICU and initiated on DKA protocol. Critical care team consulted in ED. Patient has fever, chills, chest pain, palpitation, productive cough, skin rash, recent contact, known exposure to COVID-1 Patients sullivan virus PCR is negative. Patient is sleeping. But arousable. Patient is on 2 litres O2. O2 saturation 98%. No Complaint of chest pain, shortness of breath or cough Patient is afebrile. No leukocytosis. Blood pressure 146/75, Pulse 103, respirations 18. Today's Hgb is 7.7. Patient received a blood transfusion. Chest xray done 04/29/21 reported Low lung volumes with bibasilar opacities/atelectasis persists, unchanged. No pneumothorax. Chest xray done 05/08/21 reported table, mild increased densities and atelectasis in the lower lungs. No pneumothorax. Chest xray done 05/13/21 reported Increased interstitial prominence in bilateral lungs. Elevation right hemidiaphragm with right lower lung atelectasis No pneumothorax. Patient had right knee surgery. Patient is on Cefazolin, Albuterol aerosol treatments and Prevacid and S/C Hepar in. Objective Vital Signs - 12hr 05/18/21 05/18/21 05/18/21 11:36 13:32 16:29 Temperature 98.9 F Pulse Rate 103 H Respiratory 18 16 Rate Blood Pressure 176/88 O2 Sat by Pulse 97 97 Oximetry 05/18/21 16:31 Temperature 98.5 F Pulse Rate 102 H Respiratory 16 Rate Blood Pressure 149/76 O2 Sat by Pulse 97 Oximetry Constitutional: no acute distress, alert, asleep, other (Patient sleepy but arousable.) Eyes: non-icteric ENT: oropharynx moist Neck: supple, no lymphadenopathy, no JVD Effort: normal Ascultation: Bilateral: diminished breath sounds, rhonchi Percussion: Bilateral: not dull Cardiovascular: regular rate and rhythm, other (S1,S2) Gastrointestinal: hypoactive bowel sounds, soft, non-tender, non-distended (protuberant) Integumentary: rash (perineal) Extremities: no cyanosis, no edema, pulses normal, no ischemia or petechiae, other (Right knee surgery.) Neurologic: normal mental status, non-focal exam, pupils equal and round, other Psychiatric: mood appropriate, affect normal CBC and BMP: 05/18/21 05:10 05/18/21 05:10 ABG, PT/INR, D-dimer: ABG ABG pH 7.426 pH Units (7.350-7.450) 04/25/21 11:20 ABG pCO2 25.3 mm Hg 04/25/21 11:20 ABG pO2 73.2 mm Hg (80.0-90.0) L 04/25/21 11:20 ABG O2 Saturation 96.9 % (95.0-99.0) 04/25/21 11:20 PT/INR, D-dimer PT 15.8 Sec. (12.2-14.9) H 05/15/21 13:04 INR 1.14 (0.87-1.13) H 05/15/21 13:04 Abnormal lab findings: Abnormal Labs 04/23/21 04/23/21 04/23/21 10:33 10:33 10:33 WBC RBC Hgb Hct MCV MCH 26 L RDW Plt Count Lymph % (Auto) Seg Neutrophils % Seg Neuts % (Manual) Lymphocytes % (Manual) 7.0 L Nucleated RBC % 2.0 H Seg Neutrophils # Lymphocytes # (Manual) 0.5 L PT INR ABG pO2 ABG HCO3 ABG Base Excess ABG Hemoglobin VBG pH 7.180 L* Oxyhemoglobin Sodium 122 L Potassium 3.0 L Chloride 84.8 L Carbon Dioxide 6 L* BUN 49 H Creatinine 1.4 H Glucose 775 H* POC Glucose Hemoglobin A1c Lactic Acid Calcium 12.2 H* Phosphorus Magnesium Alkaline Phosphatase 130 H C-Reactive Protein Total Protein Albumin 2.9 L Vancomycin Trough Crossmatch 04/23/21 04/23/21 04/23/21 10:40 12:44 14:01 WBC RBC Hgb Hct MCV MCH RDW Plt Count Lymph % (Auto) Seg Neutrophils % Seg Neuts % (Manual) Lymphocytes % (Manual) Nucleated RBC % Seg Neutrophils # Lymphocytes # (Manual) PT INR ABG pO2 ABG HCO3 ABG Base Excess ABG Hemoglobin VBG pH Oxyhemoglobin Sodium Potassium Chloride Carbon Dioxide BUN Creatinine Glucose POC Glucose > 600 H 550 H Hemoglobin A1c Lactic Acid Calcium Phosphorus 1.50 L Magnesium Alkaline Phosphatase C-Reactive Protein Total Protein Albumin Vancomycin Trough Crossmatch 04/23/21 04/23/21 04/23/21 14:01 14:04 14:56 WBC RBC Hgb Hct MCV MCH RDW Plt Count Lymph % (Auto) Seg Neutrophils % Seg Neuts % (Manual) Lymphocytes % (Manual) Nucleated RBC % Seg Neutrophils # Lymphocytes # (Manual) PT INR ABG pO2 ABG HCO3 ABG Base Excess ABG Hemoglobin VBG pH Oxyhemoglobin Sodium 125 L Potassium 3.0 L Chloride 89.2 L Carbon Dioxide 6 L* BUN 45 H Creatinine 1.3 H Glucose 594 H* POC Glucose 518 H 425 H Hemoglobin A1c Lactic Acid Calcium 10.9 H Phosphorus Magnesium Alkaline Phosphatase C-Reactive Protein Total Protein Albumin Vancomycin Trough Crossmatch 04/23/21 04/23/21 04/23/21 15:43 15:48 17:21 WBC RBC Hgb Hct MCV MCH RDW Plt Count Lymph % (Auto) Seg Neutrophils % Seg Neuts % (Manual) Lymphocytes % (Manual) Nucleated RBC % Seg Neutrophils # Lymphocytes # (Manual) PT INR ABG pO2 ABG HCO3 ABG Base Excess ABG Hemoglobin VBG pH Oxyhemoglobin Sodium 131 L Potassium 2.9 L* Chloride Carbon Dioxide 8 L* BUN 39 H Creatinine Glucose 434 H POC Glucose 410 H 407 H Hemoglobin A1c Lactic Acid Calcium 10.3 H Phosphorus Magnesium Alkaline Phosphatase C-Reactive Protein Total Protein Albumin Vancomycin Trough Crossmatch 04/23/21 04/23/21 04/23/21 18:07 19:13 19:54 WBC RBC Hgb Hct MCV MCH RDW Plt Count Lymph % (Auto) Seg Neutrophils % Seg Neuts % (Manual) Lymphocytes % (Manual) Nucleated RBC % Seg Neutrophils # Lymphocytes # (Manual) PT INR ABG pO2 ABG HCO3 ABG Base Excess ABG Hemoglobin VBG pH Oxyhemoglobin Sodium 131 L Potassium 3.1 L Chloride 95.9 L Carbon Dioxide 7 L* BUN 39 H Creatinine Glucose 391 H POC Glucose 428 H 350 H Hemoglobin A1c Lactic Acid Calcium 11.2 H Phosphorus Magnesium Alkaline Phosphatase C-Reactive Protein Total Protein Albumin Vancomycin Trough Crossmatch 04/23/21 04/23/21 04/23/21 19:54 20:12 20:59 WBC RBC Hgb Hct MCV MCH RDW Plt Count Lymph % (Auto) Seg Neutrophils % Seg Neuts % (Manual) Lymphocytes % (Manual) Nucleated RBC % Seg Neutrophils # Lymphocytes # (Manual) PT INR ABG pO2 ABG HCO3 ABG Base Excess ABG Hemoglobin VBG pH Oxyhemoglobin Sodium Potassium Chloride Carbon Dioxide BUN Creatinine Glucose POC Glucose 365 H 286 H Hemoglobin A1c Lactic Acid Calcium Phosphorus 1.10 L D Magnesium Alkaline Phosphatase C-Reactive Protein Total Protein Albumin Vancomycin Trough Crossmatch 04/23/21 04/23/21 04/23/21 22:05 22:23 22:59 WBC RBC Hgb Hct MCV MCH RDW Plt Count Lymph % (Auto) Seg Neutrophils % Seg Neuts % (Manual) Lymphocytes % (Manual) Nucleated RBC % Seg Neutrophils # Lymphocytes # (Manual) PT INR ABG pO2 ABG HCO3 ABG Base Excess ABG Hemoglobin VBG pH Oxyhemoglobin Sodium 135 L Potassium 3.2 L Chloride Carbon Dioxide 10 L BUN 35 H Creatinine Glucose 300 H POC Glucose 257 H 238 H Hemoglobin A1c Lactic Acid Calcium 11.6 H Phosphorus Magnesium Alkaline Phosphatase C-Reactive Protein Total Protein Albumin Vancomycin Trough Crossmatch 04/23/21 04/24/21 04/24/21 23:57 00:10 00:56 WBC RBC Hgb Hct MCV MCH RDW Plt Count Lymph % (Auto) Seg Neutrophils % Seg Neuts % (Manual) Lymphocytes % (Manual) Nucleated RBC % Seg Neutrophils # Lymphocytes # (Manual) PT INR ABG pO2 ABG HCO3 ABG Base Excess ABG Hemoglobin VBG pH Oxyhemoglobin Sodium Potassium 3.2 L Chloride Carbon Dioxide 13 L BUN 33 H Creatinine Glucose 267 H POC Glucose 223 H 254 H Hemoglobin A1c Lactic Acid Calcium 11.2 H Phosphorus 1.20 L Magnesium Alkaline Phosphatase C-Reactive Protein Total Protein Albumin Vancomycin Trough Crossmatch 04/24/21 04/24/21 04/24/21 01:58 02:58 03:57 WBC RBC Hgb Hct MCV MCH RDW Plt Count Lymph % (Auto) Seg Neutrophils % Seg Neuts % (Manual) Lymphocytes % (Manual) Nucleated RBC % Seg Neutrophils # Lymphocytes # (Manual) PT INR ABG pO2 ABG HCO3 ABG Base Excess ABG Hemoglobin VBG pH Oxyhemoglobin Sodium Potassium Chloride Carbon Dioxide BUN Creatinine Glucose POC Glucose 264 H 251 H 200 H Hemoglobin A1c Lactic Acid Calcium Phosphorus Magnesium Alkaline Phosphatase C-Reactive Protein Total Protein Albumin Vancomycin Trough Crossmatch 04/24/21 04/24/21 04/24/21 04:16 04:16 04:16 WBC RBC Hgb Hct MCV MCH 26 L RDW Plt Count Lymph % (Auto) Seg Neutrophils % Seg Neuts % (Manual) Lymphocytes % (Manual) Nucleated RBC % Seg Neutrophils # Lymphocytes # (Manual) PT INR ABG pO2 ABG HCO3 ABG Base Excess ABG Hemoglobin VBG pH Oxyhemoglobin Sodium Potassium Chloride 108.0 H Carbon Dioxide 13 L BUN 31 H Creatinine Glucose 243 H POC Glucose Hemoglobin A1c 18.3 H Lactic Acid Calcium 10.9 H Phosphorus 1.80 L D Magnesium Alkaline Phosphatase C-Reactive Protein Total Protein Albumin Vancomycin Trough Crossmatch 04/24/21 04/24/21 04/24/21 04:59 05:53 06:51 WBC RBC Hgb Hct MCV MCH RDW Plt Count Lymph % (Auto) Seg Neutrophils % Seg Neuts % (Manual) Lymphocytes % (Manual) Nucleated RBC % Seg Neutrophils # Lymphocytes # (Manual) PT INR ABG pO2 ABG HCO3 ABG Base Excess ABG Hemoglobin VBG pH Oxyhemoglobin Sodium Potassium Chloride Carbon Dioxide BUN Creatinine Glucose POC Glucose 208 H 213 H 161 H Hemoglobin A1c Lactic Acid Calcium Phosphorus Magnesium Alkaline Phosphatase C-Reactive Protein Total Protein Albumin Vancomycin Trough Crossmatch 04/24/21 04/24/21 04/24/21 07:58 09:21 10:06 WBC RBC Hgb Hct MCV MCH RDW Plt Count Lymph % (Auto) Seg Neutrophils % Seg Neuts % (Manual) Lymphocytes % (Manual) Nucleated RBC % Seg Neutrophils # Lymphocytes # (Manual) PT INR ABG pO2 ABG HCO3 ABG Base Excess ABG Hemoglobin VBG pH Oxyhemoglobin Sodium Potassium Chloride Carbon Dioxide BUN Creatinine Glucose POC Glucose 149 H 178 H 164 H Hemoglobin A1c Lactic Acid Calcium Phosphorus Magnesium Alkaline Phosphatase C-Reactive Protein Total Protein Albumin Vancomycin Trough Crossmatch 04/24/21 04/24/21 04/24/21 11:03 12:07 12:14 WBC RBC Hgb Hct MCV MCH RDW Plt Count Lymph % (Auto) Seg Neutrophils % Seg Neuts % (Manual) Lymphocytes % (Manual) Nucleated RBC % Seg Neutrophils # Lymphocytes # (Manual) PT INR ABG pO2 ABG HCO3 ABG Base Excess ABG Hemoglobin VBG pH Oxyhemoglobin Sodium Potassium 3.2 L Chloride 108.7 H Carbon Dioxide 16 L BUN 24 H Creatinine Glucose 160 H POC Glucose 157 H 142 H Hemoglobin A1c Lactic Acid Calcium 10.5 H Phosphorus 0.70 L* D Magnesium Alkaline Phosphatase C-Reactive Protein Total Protein Albumin Vancomycin Trough Crossmatch 04/24/21 04/24/21 04/24/21 12:14 13:02 14:00 WBC RBC Hgb Hct MCV MCH RDW Plt Count Lymph % (Auto) Seg Neutrophils % Seg Neuts % (Manual) Lymphocytes % (Manual) Nucleated RBC % Seg Neutrophils # Lymphocytes # (Manual) PT INR ABG pO2 ABG HCO3 ABG Base Excess ABG Hemoglobin VBG pH Oxyhemoglobin Sodium Potassium Chloride Carbon Dioxide BUN Creatinine Glucose POC Glucose 138 H 150 H Hemoglobin A1c Lactic Acid 2.50 H* Calcium Phosphorus Magnesium Alkaline Phosphatase C-Reactive Protein Total Protein Albumin Vancomycin Trough Crossmatch 04/24/21 04/24/21 04/24/21 15:14 16:07 17:11 WBC RBC Hgb Hct MCV MCH RDW Plt Count Lymph % (Auto) Seg Neutrophils % Seg Neuts % (Manual) Lymphocytes % (Manual) Nucleated RBC % Seg Neutrophils # Lymphocytes # (Manual) PT INR ABG pO2 ABG HCO3 ABG Base Excess ABG Hemoglobin VBG pH Oxyhemoglobin Sodium Potassium Chloride Carbon Dioxide BUN Creatinine Glucose POC Glucose 145 H 148 H 156 H Hemoglobin A1c Lactic Acid Calcium Phosphorus Magnesium Alkaline Phosphatase C-Reactive Protein Total Protein Albumin Vancomycin Trough Crossmatch 04/24/21 04/24/21 04/24/21 18:12 18:24 19:55 WBC RBC Hgb Hct MCV MCH RDW Plt Count Lymph % (Auto) Seg Neutrophils % Seg Neuts % (Manual) Lymphocytes % (Manual) Nucleated RBC % Seg Neutrophils # Lymphocytes # (Manual) PT INR ABG pO2 ABG HCO3 ABG Base Excess ABG Hemoglobin VBG pH Oxyhemoglobin Sodium Potassium Chloride 109.2 H Carbon Dioxide 15 L BUN 22 H Creatinine Glucose 159 H POC Glucose 153 H 176 H Hemoglobin A1c Lactic Acid Calcium Phosphorus 1.80 L D Magnesium Alkaline Phosphatase C-Reactive Protein 24.30 H Total Protein Albumin Vancomycin Trough Crossmatch 04/24/21 04/24/21 04/24/21 20:55 22:04 23:02 WBC RBC Hgb Hct MCV MCH RDW Plt Count Lymph % (Auto) Seg Neutrophils % Seg Neuts % (Manual) Lymphocytes % (Manual) Nucleated RBC % Seg Neutrophils # Lymphocytes # (Manual) PT INR ABG pO2 ABG HCO3 ABG Base Excess ABG Hemoglobin VBG pH Oxyhemoglobin Sodium Potassium Chloride Carbon Dioxide BUN Creatinine Glucose POC Glucose 146 H 169 H Hemoglobin A1c Lactic Acid 3.10 H* Calcium Phosphorus Magnesium Alkaline Phosphatase C-Reactive Protein Total Protein Albumin Vancomycin Trough Crossmatch 04/24/21 04/25/21 04/25/21 23:13 00:05 01:28 WBC RBC Hgb Hct MCV MCH RDW Plt Count Lymph % (Auto) Seg Neutrophils % Seg Neuts % (Manual) Lymphocytes % (Manual) Nucleated RBC % Seg Neutrophils # Lymphocytes # (Manual) PT INR ABG pO2 ABG HCO3 ABG Base Excess ABG Hemoglobin VBG pH Oxyhemoglobin Sodium Potassium Chloride Carbon Dioxide BUN Creatinine Glucose POC Glucose 144 H 150 H 142 H Hemoglobin A1c Lactic Acid Calcium Phosphorus Magnesium Alkaline Phosphatase C-Reactive Protein Total Protein Albumin Vancomycin Trough Crossmatch 04/25/21 04/25/21 04/25/21 02:03 03:07 04:17 WBC RBC Hgb Hct MCV MCH RDW Plt Count Lymph % (Auto) Seg Neutrophils % Seg Neuts % (Manual) Lymphocytes % (Manual) Nucleated RBC % Seg Neutrophils # Lymphocytes # (Manual) PT INR ABG pO2 ABG HCO3 ABG Base Excess ABG Hemoglobin VBG pH Oxyhemoglobin Sodium Potassium Chloride Carbon Dioxide BUN Creatinine Glucose POC Glucose 148 H 161 H 158 H Hemoglobin A1c Lactic Acid Calcium Phosphorus Magnesium Alkaline Phosphatase C-Reactive Protein Total Protein Albumin Vancomycin Trough Crossmatch 04/25/21 04/25/21 04/25/21 05:48 06:52 07:58 WBC RBC Hgb Hct MCV MCH RDW Plt Count Lymph % (Auto) Seg Neutrophils % Seg Neuts % (Manual) Lymphocytes % (Manual) Nucleated RBC % Seg Neutrophils # Lymphocytes # (Manual) PT INR ABG pO2 ABG HCO3 ABG Base Excess ABG Hemoglobin VBG pH Oxyhemoglobin Sodium Potassium Chloride Carbon Dioxide BUN Creatinine Glucose POC Glucose 136 H 137 H 143 H Hemoglobin A1c Lactic Acid Calcium Phosphorus Magnesium Alkaline Phosphatase C-Reactive Protein Total Protein Albumin Vancomycin Trough Crossmatch 04/25/21 04/25/21 04/25/21 08:10 08:10 08:10 WBC RBC Hgb 9.5 L Hct 28.8 L MCV MCH 26 L RDW Plt Count Lymph % (Auto) Seg Neutrophils % Seg Neuts % (Manual) 33.0 L Lymphocytes % (Manual) Nucleated RBC % Seg Neutrophils # Lymphocytes # (Manual) 1.1 L PT INR ABG pO2 ABG HCO3 ABG Base Excess ABG Hemoglobin VBG pH Oxyhemoglobin Sodium Potassium 3.3 L Chloride 109.0 H Carbon Dioxide 16 L BUN 23 H Creatinine Glucose 151 H POC Glucose Hemoglobin A1c Lactic Acid 2.10 H* Calcium Phosphorus 2.20 L D Magnesium 1.60 L Alkaline Phosphatase C-Reactive Protein Total Protein Albumin Vancomycin Trough Crossmatch 04/25/21 04/25/21 04/25/21 08:53 09:59 11:20 WBC RBC Hgb Hct MCV MCH RDW Plt Count Lymph % (Auto) Seg Neutrophils % Seg Neuts % (Manual) Lymphocytes % (Manual) Nucleated RBC % Seg Neutrophils # Lymphocytes # (Manual) PT INR ABG pO2 ABG HCO3 ABG Base Excess ABG Hemoglobin VBG pH Oxyhemoglobin Sodium Potassium Chloride Carbon Dioxide BUN Creatinine Glucose POC Glucose 132 H 141 H 141 H Hemoglobin A1c Lactic Acid Calcium Phosphorus Magnesium Alkaline Phosphatase C-Reactive Protein Total Protein Albumin Vancomycin Trough Crossmatch 04/25/21 04/25/21 04/25/21 11:20 12:04 12:26 WBC RBC Hgb Hct MCV MCH RDW Plt Count Lymph % (Auto) Seg Neutrophils % Seg Neuts % (Manual) Lymphocytes % (Manual) Nucleated RBC % Seg Neutrophils # Lymphocytes # (Manual) PT INR ABG pO2 73.2 L ABG HCO3 16.2 L ABG Base Excess -7.1 L ABG Hemoglobin 8.7 L VBG pH Oxyhemoglobin 94.8 L Sodium Potassium 3.4 L Chloride 109.5 H Carbon Dioxide 14 L BUN 21 H Creatinine Glucose 155 H POC Glucose 129 H Hemoglobin A1c Lactic Acid Calcium Phosphorus 1.90 L Magnesium 1.60 L Alkaline Phosphatase C-Reactive Protein Total Protein Albumin Vancomycin Trough Crossmatch 04/25/21 04/25/21 04/25/21 13:04 13:58 15:09 WBC RBC Hgb Hct MCV MCH RDW Plt Count Lymph % (Auto) Seg Neutrophils % Seg Neuts % (Manual) Lymphocytes % (Manual) Nucleated RBC % Seg Neutrophils # Lymphocytes # (Manual) PT INR ABG pO2 ABG HCO3 ABG Base Excess ABG Hemoglobin VBG pH Oxyhemoglobin Sodium Potassium Chloride Carbon Dioxide BUN Creatinine Glucose POC Glucose 135 H 140 H 134 H Hemoglobin A1c Lactic Acid Calcium Phosphorus Magnesium Alkaline Phosphatase C-Reactive Protein Total Protein Albumin Vancomycin Trough Crossmatch 04/25/21 04/25/21 04/25/21 16:00 18:56 18:58 WBC RBC Hgb Hct MCV MCH RDW Plt Count Lymph % (Auto) Seg Neutrophils % Seg Neuts % (Manual) Lymphocytes % (Manual) Nucleated RBC % Seg Neutrophils # Lymphocytes # (Manual) PT INR ABG pO2 ABG HCO3 ABG Base Excess ABG Hemoglobin VBG pH Oxyhemoglobin Sodium Potassium Chloride Carbon Dioxide BUN Creatinine Glucose POC Glucose 135 H 170 H Hemoglobin A1c Lactic Acid 2.10 H* Calcium Phosphorus Magnesium Alkaline Phosphatase C-Reactive Protein Total Protein Albumin Vancomycin Trough Crossmatch 04/25/21 04/25/21 04/25/21 18:58 19:52 20:53 WBC RBC Hgb Hct MCV MCH RDW Plt Count Lymph % (Auto) Seg Neutrophils % Seg Neuts % (Manual) Lymphocytes % (Manual) Nucleated RBC % Seg Neutrophils # Lymphocytes # (Manual) PT INR ABG pO2 ABG HCO3 ABG Base Excess ABG Hemoglobin VBG pH Oxyhemoglobin Sodium Potassium Chloride 110.1 H Carbon Dioxide 13 L BUN 23 H Creatinine Glucose 206 H POC Glucose 162 H 171 H Hemoglobin A1c Lactic Acid Calcium Phosphorus Magnesium 2.40 H Alkaline Phosphatase C-Reactive Protein Total Protein Albumin Vancomycin Trough Crossmatch 04/25/21 04/25/21 04/26/21 21:54 22:53 00:03 WBC RBC Hgb Hct MCV MCH RDW Plt Count Lymph % (Auto) Seg Neutrophils % Seg Neuts % (Manual) Lymphocytes % (Manual) Nucleated RBC % Seg Neutrophils # Lymphocytes # (Manual) PT INR ABG pO2 ABG HCO3 ABG Base Excess ABG Hemoglobin VBG pH Oxyhemoglobin Sodium Potassium Chloride Carbon Dioxide BUN Creatinine Glucose POC Glucose 139 H 140 H 129 H Hemoglobin A1c Lactic Acid Calcium Phosphorus Magnesium Alkaline Phosphatase C-Reactive Protein Total Protein Albumin Vancomycin Trough Crossmatch 04/26/21 04/26/21 04/26/21 00:38 01:00 01:56 WBC RBC Hgb Hct MCV MCH RDW Plt Count Lymph % (Auto) Seg Neutrophils % Seg Neuts % (Manual) Lymphocytes % (Manual) Nucleated RBC % Seg Neutrophils # Lymphocytes # (Manual) PT INR ABG pO2 ABG HCO3 ABG Base Excess ABG Hemoglobin VBG pH Oxyhemoglobin Sodium Potassium Chloride 112.6 H Carbon Dioxide 14 L BUN 22 H Creatinine Glucose 149 H POC Glucose 126 H 137 H Hemoglobin A1c Lactic Acid Calcium Phosphorus Magnesium 2.40 H Alkaline Phosphatase C-Reactive Protein Total Protein Albumin Vancomycin Trough Crossmatch 04/26/21 04/26/21 04/26/21 02:54 04:04 05:02 WBC RBC 3.44 L Hgb 8.9 L Hct 26.9 L MCV 78 L MCH 26 L RDW Plt Count Lymph % (Auto) Seg Neutrophils % Seg Neuts % (Manual) Lymphocytes % (Manual) Nucleated RBC % Seg Neutrophils # Lymphocytes # (Manual) PT INR ABG pO2 ABG HCO3 ABG Base Excess ABG Hemoglobin VBG pH Oxyhemoglobin Sodium Potassium Chloride Carbon Dioxide BUN Creatinine Glucose POC Glucose 132 H 130 H Hemoglobin A1c Lactic Acid Calcium Phosphorus Magnesium Alkaline Phosphatase C-Reactive Protein Total Protein Albumin Vancomycin Trough Crossmatch 04/26/21 04/26/21 04/26/21 05:02 05:03 06:06 WBC RBC Hgb Hct MCV MCH RDW Plt Count Lymph % (Auto) Seg Neutrophils % Seg Neuts % (Manual) Lymphocytes % (Manual) Nucleated RBC % Seg Neutrophils # Lymphocytes # (Manual) PT INR ABG pO2 ABG HCO3 ABG Base Excess ABG Hemoglobin VBG pH Oxyhemoglobin Sodium Potassium Chloride 114.8 H Carbon Dioxide 14 L BUN 22 H Creatinine Glucose 129 H POC Glucose 115 H 129 H Hemoglobin A1c Lactic Acid Calcium Phosphorus Magnesium Alkaline Phosphatase C-Reactive Protein Total Protein Albumin Vancomycin Trough Crossmatch 04/26/21 04/26/21 04/26/21 06:53 07:58 09:09 WBC RBC Hgb Hct MCV MCH RDW Plt Count Lymph % (Auto) Seg Neutrophils % Seg Neuts % (Manual) Lymphocytes % (Manual) Nucleated RBC % Seg Neutrophils # Lymphocytes # (Manual) PT INR ABG pO2 ABG HCO3 ABG Base Excess ABG Hemoglobin VBG pH Oxyhemoglobin Sodium Potassium Chloride Carbon Dioxide BUN Creatinine Glucose POC Glucose 121 H 124 H 125 H Hemoglobin A1c Lactic Acid Calcium Phosphorus Magnesium Alkaline Phosphatase C-Reactive Protein Total Protein Albumin Vancomycin Trough Crossmatch 04/26/21 04/26/21 04/26/21 10:05 10:52 12:00 WBC RBC Hgb Hct MCV MCH RDW Plt Count Lymph % (Auto) Seg Neutrophils % Seg Neuts % (Manual) Lymphocytes % (Manual) Nucleated RBC % Seg Neutrophils # Lymphocytes # (Manual) PT INR ABG pO2 ABG HCO3 ABG Base Excess ABG Hemoglobin VBG pH Oxyhemoglobin Sodium Potassium Chloride Carbon Dioxide BUN Creatinine Glucose POC Glucose 131 H 129 H 126 H Hemoglobin A1c Lactic Acid Calcium Phosphorus Magnesium Alkaline Phosphatase C-Reactive Protein Total Protein Albumin Vancomycin Trough Crossmatch 04/26/21 04/26/21 04/26/21 13:17 14:06 14:11 WBC RBC Hgb Hct MCV MCH RDW Plt Count Lymph % (Auto) Seg Neutrophils % Seg Neuts % (Manual) Lymphocytes % (Manual) Nucleated RBC % Seg Neutrophils # Lymphocytes # (Manual) PT INR ABG pO2 ABG HCO3 ABG Base Excess ABG Hemoglobin VBG pH Oxyhemoglobin Sodium Potassium 5.3 H D Chloride 112.2 H Carbon Dioxide 14 L BUN 22 H Creatinine Glucose 116 H POC Glucose 130 H 132 H Hemoglobin A1c Lactic Acid Calcium Phosphorus Magnesium 2.40 H Alkaline Phosphatase C-Reactive Protein Total Protein Albumin Vancomycin Trough Crossmatch 04/26/21 04/26/21 04/26/21 15:07 15:20 16:05 WBC RBC Hgb Hct MCV MCH RDW Plt Count Lymph % (Auto) Seg Neutrophils % Seg Neuts % (Manual) Lymphocytes % (Manual) Nucleated RBC % Seg Neutrophils # Lymphocytes # (Manual) PT INR ABG pO2 ABG HCO3 ABG Base Excess ABG Hemoglobin VBG pH Oxyhemoglobin Sodium Potassium Chloride 112.4 H Carbon Dioxide 13 L BUN 22 H Creatinine Glucose 143 H POC Glucose 130 H 156 H Hemoglobin A1c Lactic Acid Calcium Phosphorus Magnesium Alkaline Phosphatase C-Reactive Protein Total Protein Albumin Vancomycin Trough Crossmatch 04/26/21 04/26/21 04/27/21 17:55 19:27 00:02 WBC RBC Hgb Hct MCV MCH RDW Plt Count Lymph % (Auto) Seg Neutrophils % Seg Neuts % (Manual) Lymphocytes % (Manual) Nucleated RBC % Seg Neutrophils # Lymphocytes # (Manual) PT INR ABG pO2 ABG HCO3 ABG Base Excess ABG Hemoglobin VBG pH Oxyhemoglobin Sodium Potassium Chloride Carbon Dioxide BUN Creatinine Glucose POC Glucose 194 H 261 H Hemoglobin A1c Lactic Acid Calcium Phosphorus Magnesium Alkaline Phosphatase C-Reactive Protein Total Protein Albumin Vancomycin Trough 38.2 H Crossmatch 04/27/21 04/27/21 04/27/21 04:03 04:03 05:33 WBC RBC 3.20 L Hgb 8.1 L Hct 25.1 L MCV 78 L MCH 25 L RDW Plt Count Lymph % (Auto) Seg Neutrophils % Seg Neuts % (Manual) Lymphocytes % (Manual) Nucleated RBC % Seg Neutrophils # Lymphocytes # (Manual) PT INR ABG pO2 ABG HCO3 ABG Base Excess ABG Hemoglobin VBG pH Oxyhemoglobin Sodium Potassium Chloride 112.4 H Carbon Dioxide 12 L BUN 30 H Creatinine Glucose 330 H POC Glucose 311 H Hemoglobin A1c Lactic Acid Calcium Phosphorus Magnesium Alkaline Phosphatase C-Reactive Protein Total Protein Albumin Vancomycin Trough Crossmatch 04/27/21 04/27/21 04/27/21 09:51 13:15 16:43 WBC RBC Hgb Hct MCV MCH RDW Plt Count Lymph % (Auto) Seg Neutrophils % Seg Neuts % (Manual) Lymphocytes % (Manual) Nucleated RBC % Seg Neutrophils # Lymphocytes # (Manual) PT INR ABG pO2 ABG HCO3 ABG Base Excess ABG Hemoglobin VBG pH Oxyhemoglobin Sodium Potassium Chloride Carbon Dioxide BUN Creatinine Glucose POC Glucose 335 H 291 H 218 H Hemoglobin A1c Lactic Acid Calcium Phosphorus Magnesium Alkaline Phosphatase C-Reactive Protein Total Protein Albumin Vancomycin Trough Crossmatch 04/27/21 04/27/21 04/28/21 18:10 22:08 02:15 WBC RBC Hgb Hct MCV MCH RDW Plt Count Lymph % (Auto) Seg Neutrophils % Seg Neuts % (Manual) Lymphocytes % (Manual) Nucleated RBC % Seg Neutrophils # Lymphocytes # (Manual) PT INR ABG pO2 ABG HCO3 ABG Base Excess ABG Hemoglobin VBG pH Oxyhemoglobin Sodium Potassium Chloride Carbon Dioxide BUN Creatinine Glucose POC Glucose 177 H 136 H 152 H Hemoglobin A1c Lactic Acid Calcium Phosphorus Magnesium Alkaline Phosphatase C-Reactive Protein Total Protein Albumin Vancomycin Trough Crossmatch 04/28/21 04/28/21 04/28/21 04:41 04:41 06:03 WBC RBC 3.50 L Hgb 8.9 L Hct 27.3 L MCV 78 L MCH 26 L RDW Plt Count Lymph % (Auto) Seg Neutrophils % Seg Neuts % (Manual) Lymphocytes % (Manual) Nucleated RBC % Seg Neutrophils # Lymphocytes # (Manual) PT INR ABG pO2 ABG HCO3 ABG Base Excess ABG Hemoglobin VBG pH Oxyhemoglobin Sodium Potassium Chloride 113.5 H Carbon Dioxide 16 L BUN 37 H Creatinine Glucose 167 H POC Glucose 174 H Hemoglobin A1c Lactic Acid Calcium Phosphorus Magnesium Alkaline Phosphatase C-Reactive Protein Total Protein Albumin Vancomycin Trough Crossmatch 04/28/21 04/28/21 04/28/21 08:42 11:34 17:15 WBC RBC Hgb Hct MCV MCH RDW Plt Count Lymph % (Auto) Seg Neutrophils % Seg Neuts % (Manual) Lymphocytes % (Manual) Nucleated RBC % Seg Neutrophils # Lymphocytes # (Manual) PT INR ABG pO2 ABG HCO3 ABG Base Excess ABG Hemoglobin VBG pH Oxyhemoglobin Sodium Potassium Chloride Carbon Dioxide BUN Creatinine Glucose POC Glucose 212 H 228 H 236 H Hemoglobin A1c Lactic Acid Calcium Phosphorus Magnesium Alkaline Phosphatase C-Reactive Protein Total Protein Albumin Vancomycin Trough Crossmatch 04/28/21 04/29/21 04/29/21 21:58 01:55 04:00 WBC 11.7 H RBC 3.35 L Hgb 8.5 L Hct 26.4 L MCV MCH 25 L RDW Plt Count Lymph % (Auto) Seg Neutrophils % Seg Neuts % (Manual) Lymphocytes % (Manual) Nucleated RBC % Seg Neutrophils # Lymphocytes # (Manual) PT INR ABG pO2 ABG HCO3 ABG Base Excess ABG Hemoglobin VBG pH Oxyhemoglobin Sodium Potassium Chloride Carbon Dioxide BUN Creatinine Glucose POC Glucose 208 H 137 H Hemoglobin A1c Lactic Acid Calcium Phosphorus Magnesium Alkaline Phosphatase C-Reactive Protein Total Protein Albumin Vancomycin Trough Crossmatch 04/29/21 04/29/21 04/29/21 04:00 05:16 11:02 WBC RBC Hgb Hct MCV MCH RDW Plt Count Lymph % (Auto) Seg Neutrophils % Seg Neuts % (Manual) Lymphocytes % (Manual) Nucleated RBC % Seg Neutrophils # Lymphocytes # (Manual) PT INR ABG pO2 ABG HCO3 ABG Base Excess ABG Hemoglobin VBG pH Oxyhemoglobin Sodium 146 H Potassium Chloride 112.4 H Carbon Dioxide BUN 41 H Creatinine Glucose 115 H POC Glucose 114 H 144 H Hemoglobin A1c Lactic Acid Calcium Phosphorus Magnesium Alkaline Phosphatase C-Reactive Protein Total Protein Albumin Vancomycin Trough Crossmatch 04/30/21 04/30/21 04/30/21 00:23 04:41 04:41 WBC 14.4 H RBC 3.12 L Hgb 7.8 L Hct 24.7 L MCV MCH 25 L RDW Plt Count 138 L Lymph % (Auto) Seg Neutrophils % Seg Neuts % (Manual) Lymphocytes % (Manual) Nucleated RBC % Seg Neutrophils # Lymphocytes # (Manual) PT INR ABG pO2 ABG HCO3 ABG Base Excess ABG Hemoglobin VBG pH Oxyhemoglobin Sodium Potassium Chloride 108.0 H Carbon Dioxide BUN 42 H Creatinine Glucose 215 H POC Glucose 126 H Hemoglobin A1c Lactic Acid Calcium Phosphorus Magnesium Alkaline Phosphatase 171 H C-Reactive Protein Total Protein 6.1 L Albumin 1.4 L Vancomycin Trough Crossmatch 04/30/21 04/30/21 04/30/21 05:22 11:55 17:36 WBC RBC Hgb Hct MCV MCH RDW Plt Count Lymph % (Auto) Seg Neutrophils % Seg Neuts % (Manual) Lymphocytes % (Manual) Nucleated RBC % Seg Neutrophils # Lymphocytes # (Manual) PT INR ABG pO2 ABG HCO3 ABG Base Excess ABG Hemoglobin VBG pH Oxyhemoglobin Sodium Potassium Chloride Carbon Dioxide BUN Creatinine Glucose POC Glucose 196 H 224 H 196 H Hemoglobin A1c Lactic Acid Calcium Phosphorus Magnesium Alkaline Phosphatase C-Reactive Protein Total Protein Albumin Vancomycin Trough Crossmatch 05/01/21 05/01/21 05/01/21 04:01 05:37 05:37 WBC 16.9 H RBC 2.97 L Hgb 7.4 L Hct 23.1 L MCV 78 L MCH 25 L RDW Plt Count Lymph % (Auto) Seg Neutrophils % Seg Neuts % (Manual) Lymphocytes % (Manual) Nucleated RBC % Seg Neutrophils # Lymphocytes # (Manual) PT INR ABG pO2 ABG HCO3 ABG Base Excess ABG Hemoglobin VBG pH Oxyhemoglobin Sodium Potassium Chloride 108.4 H Carbon Dioxide BUN 41 H Creatinine Glucose 124 H POC Glucose 122 H Hemoglobin A1c Lactic Acid Calcium 8.0 L Phosphorus Magnesium Alkaline Phosphatase C-Reactive Protein Total Protein Albumin Vancomycin Trough Crossmatch 05/01/21 05/01/21 05/01/21 06:27 13:45 16:40 WBC RBC Hgb Hct MCV MCH RDW Plt Count Lymph % (Auto) Seg Neutrophils % Seg Neuts % (Manual) Lymphocytes % (Manual) Nucleated RBC % Seg Neutrophils # Lymphocytes # (Manual) PT INR ABG pO2 ABG HCO3 ABG Base Excess ABG Hemoglobin VBG pH Oxyhemoglobin Sodium Potassium Chloride Carbon Dioxide BUN Creatinine Glucose POC Glucose 126 H 231 H 266 H Hemoglobin A1c Lactic Acid Calcium Phosphorus Magnesium Alkaline Phosphatase C-Reactive Protein Total Protein Albumin Vancomycin Trough Crossmatch 05/01/21 05/02/21 05/02/21 23:16 05:43 11:27 WBC RBC Hgb Hct MCV MCH RDW Plt Count Lymph % (Auto) Seg Neutrophils % Seg Neuts % (Manual) Lymphocytes % (Manual) Nucleated RBC % Seg Neutrophils # Lymphocytes # (Manual) PT INR ABG pO2 ABG HCO3 ABG Base Excess ABG Hemoglobin VBG pH Oxyhemoglobin Sodium Potassium Chloride Carbon Dioxide BUN Creatinine Glucose POC Glucose 192 H 236 H 284 H Hemoglobin A1c Lactic Acid Calcium Phosphorus Magnesium Alkaline Phosphatase C-Reactive Protein Total Protein Albumin Vancomycin Trough Crossmatch 05/02/21 05/02/21 05/03/21 16:52 23:20 06:16 WBC RBC Hgb Hct MCV MCH RDW Plt Count Lymph % (Auto) Seg Neutrophils % Seg Neuts % (Manual) Lymphocytes % (Manual) Nucleated RBC % Seg Neutrophils # Lymphocytes # (Manual) PT INR ABG pO2 ABG HCO3 ABG Base Excess ABG Hemoglobin VBG pH Oxyhemoglobin Sodium Potassium Chloride Carbon Dioxide BUN Creatinine Glucose POC Glucose 170 H 124 H 147 H Hemoglobin A1c Lactic Acid Calcium Phosphorus Magnesium Alkaline Phosphatase C-Reactive Protein Total Protein Albumin Vancomycin Trough Crossmatch 05/03/21 05/03/21 05/03/21 07:05 07:05 11:46 WBC 14.3 H RBC 2.82 L Hgb 6.8 L Hct 22.7 L MCV MCH 24 L RDW Plt Count Lymph % (Auto) 11.8 L Seg Neutrophils % 83.3 H Seg Neuts % (Manual) Lymphocytes % (Manual) Nucleated RBC % Seg Neutrophils # 11.9 H Lymphocytes # (Manual) PT INR ABG pO2 ABG HCO3 ABG Base Excess ABG Hemoglobin VBG pH Oxyhemoglobin Sodium Potassium Chloride Carbon Dioxide BUN 39 H Creatinine Glucose 163 H POC Glucose 134 H Hemoglobin A1c Lactic Acid Calcium Phosphorus Magnesium Alkaline Phosphatase C-Reactive Protein Total Protein Albumin Vancomycin Trough Crossmatch 05/03/21 05/03/21 05/03/21 17:11 18:00 19:46 WBC RBC Hgb Hct MCV MCH RDW Plt Count Lymph % (Auto) Seg Neutrophils % Seg Neuts % (Manual) Lymphocytes % (Manual) Nucleated RBC % Seg Neutrophils # Lymphocytes # (Manual) PT INR ABG pO2 ABG HCO3 ABG Base Excess ABG Hemoglobin VBG pH Oxyhemoglobin Sodium Potassium Chloride Carbon Dioxide BUN Creatinine Glucose POC Glucose 129 H 128 H Hemoglobin A1c Lactic Acid Calcium Phosphorus Magnesium Alkaline Phosphatase C-Reactive Protein Total Protein Albumin Vancomycin Trough Crossmatch See Detail 05/03/21 05/04/21 05/04/21 22:00 08:06 11:19 WBC RBC Hgb Hct MCV MCH RDW Plt Count Lymph % (Auto) Seg Neutrophils % Seg Neuts % (Manual) Lymphocytes % (Manual) Nucleated RBC % Seg Neutrophils # Lymphocytes # (Manual) PT INR ABG pO2 ABG HCO3 ABG Base Excess ABG Hemoglobin VBG pH Oxyhemoglobin Sodium Potassium Chloride Carbon Dioxide BUN Creatinine Glucose POC Glucose 144 H 337 H 383 H Hemoglobin A1c Lactic Acid Calcium Phosphorus Magnesium Alkaline Phosphatase C-Reactive Protein Total Protein Albumin Vancomycin Trough Crossmatch 05/04/21 05/04/21 05/05/21 17:43 23:01 06:05 WBC RBC Hgb Hct MCV MCH RDW Plt Count Lymph % (Auto) Seg Neutrophils % Seg Neuts % (Manual) Lymphocytes % (Manual) Nucleated RBC % Seg Neutrophils # Lymphocytes # (Manual) PT INR ABG pO2 ABG HCO3 ABG Base Excess ABG Hemoglobin VBG pH Oxyhemoglobin Sodium Potassium Chloride Carbon Dioxide BUN Creatinine Glucose POC Glucose 316 H 320 H 395 H Hemoglobin A1c Lactic Acid Calcium Phosphorus Magnesium Alkaline Phosphatase C-Reactive Protein Total Protein Albumin Vancomycin Trough Crossmatch 05/05/21 05/05/21 05/05/21 06:15 06:15 11:38 WBC RBC 2.56 L Hgb 6.8 L 6.9 L Hct 21.4 L 22.7 L MCV MCH 27 L RDW Plt Count 442 H Lymph % (Auto) Seg Neutrophils % 76.5 H Seg Neuts % (Manual) Lymphocytes % (Manual) Nucleated RBC % Seg Neutrophils # Lymphocytes # (Manual) PT INR ABG pO2 ABG HCO3 ABG Base Excess ABG Hemoglobin VBG pH Oxyhemoglobin Sodium Potassium Chloride Carbon Dioxide BUN 52 H Creatinine Glucose 430 H POC Glucose Hemoglobin A1c Lactic Acid Calcium Phosphorus Magnesium Alkaline Phosphatase C-Reactive Protein Total Protein Albumin Vancomycin Trough Crossmatch 05/05/21 05/05/21 05/06/21 11:47 23:07 06:44 WBC RBC Hgb Hct MCV MCH RDW Plt Count Lymph % (Auto) Seg Neutrophils % Seg Neuts % (Manual) Lymphocytes % (Manual) Nucleated RBC % Seg Neutrophils # Lymphocytes # (Manual) PT INR ABG pO2 ABG HCO3 ABG Base Excess ABG Hemoglobin VBG pH Oxyhemoglobin Sodium Potassium Chloride Carbon Dioxide BUN Creatinine Glucose POC Glucose 307 H 141 H 147 H Hemoglobin A1c Lactic Acid Calcium Phosphorus Magnesium Alkaline Phosphatase C-Reactive Protein Total Protein Albumin Vancomycin Trough Crossmatch 05/06/21 05/06/21 05/06/21 07:52 12:27 17:02 WBC RBC Hgb 7.0 L Hct 21.8 L MCV MCH RDW Plt Count Lymph % (Auto) Seg Neutrophils % Seg Neuts % (Manual) Lymphocytes % (Manual) Nucleated RBC % Seg Neutrophils # Lymphocytes # (Manual) PT INR ABG pO2 ABG HCO3 ABG Base Excess ABG Hemoglobin VBG pH Oxyhemoglobin Sodium Potassium Chloride Carbon Dioxide BUN Creatinine Glucose POC Glucose 200 H 135 H Hemoglobin A1c Lactic Acid Calcium Phosphorus Magnesium Alkaline Phosphatase C-Reactive Protein Total Protein Albumin Vancomycin Trough Crossmatch 05/06/21 05/07/21 05/07/21 23:03 08:02 10:49 WBC RBC Hgb 7.4 L Hct 23.7 L MCV MCH RDW Plt Count Lymph % (Auto) Seg Neutrophils % Seg Neuts % (Manual) Lymphocytes % (Manual) Nucleated RBC % Seg Neutrophils # Lymphocytes # (Manual) PT INR ABG pO2 ABG HCO3 ABG Base Excess ABG Hemoglobin VBG pH Oxyhemoglobin Sodium Potassium Chloride Carbon Dioxide BUN Creatinine Glucose POC Glucose 150 H 255 H Hemoglobin A1c Lactic Acid Calcium Phosphorus Magnesium Alkaline Phosphatase C-Reactive Protein Total Protein Albumin Vancomycin Trough Crossmatch 05/07/21 05/07/21 05/07/21 13:27 18:03 Unknown WBC RBC 2.66 L Hgb 6.9 L Hct 22.3 L MCV MCH 26 L RDW 15.4 H Plt Count 449 H Lymph % (Auto) Seg Neutrophils % 70.7 H Seg Neuts % (Manual) Lymphocytes % (Manual) Nucleated RBC % Seg Neutrophils # Lymphocytes # (Manual) PT INR ABG pO2 ABG HCO3 ABG Base Excess ABG Hemoglobin VBG pH Oxyhemoglobin Sodium Potassium Chloride Carbon Dioxide BUN Creatinine Glucose POC Glucose 149 H 127 H Hemoglobin A1c Lactic Acid Calcium Phosphorus Magnesium Alkaline Phosphatase C-Reactive Protein Total Protein Albumin Vancomycin Trough Crossmatch 05/08/21 05/08/21 05/08/21 06:10 07:51 11:55 WBC RBC Hgb Hct MCV MCH RDW Plt Count Lymph % (Auto) Seg Neutrophils % Seg Neuts % (Manual) Lymphocytes % (Manual) Nucleated RBC % Seg Neutrophils # Lymphocytes # (Manual) PT INR ABG pO2 ABG HCO3 ABG Base Excess ABG Hemoglobin VBG pH Oxyhemoglobin Sodium Potassium Chloride Carbon Dioxide BUN Creatinine Glucose POC Glucose 190 H 194 H 197 H Hemoglobin A1c Lactic Acid Calcium Phosphorus Magnesium Alkaline Phosphatase C-Reactive Protein Total Protein Albumin Vancomycin Trough Crossmatch 05/08/21 05/08/21 05/08/21 12:25 12:25 18:35 WBC RBC 2.42 L Hgb 6.6 L Hct 20.1 L MCV MCH 27 L RDW 15.3 H Plt Count 452 H Lymph % (Auto) Seg Neutrophils % Seg Neuts % (Manual) Lymphocytes % (Manual) Nucleated RBC % Seg Neutrophils # Lymphocytes # (Manual) PT INR ABG pO2 ABG HCO3 ABG Base Excess ABG Hemoglobin VBG pH Oxyhemoglobin Sodium Potassium Chloride Carbon Dioxide BUN 27 H Creatinine Glucose 216 H POC Glucose 195 H Hemoglobin A1c Lactic Acid Calcium 7.9 L Phosphorus Magnesium Alkaline Phosphatase C-Reactive Protein Total Protein Albumin Vancomycin Trough Crossmatch 05/08/21 05/09/21 05/09/21 23:45 01:39 02:57 WBC RBC Hgb 6.6 L Hct 20.7 L MCV MCH RDW Plt Count Lymph % (Auto) Seg Neutrophils % Seg Neuts % (Manual) Lymphocytes % (Manual) Nucleated RBC % Seg Neutrophils # Lymphocytes # (Manual) PT INR ABG pO2 ABG HCO3 ABG Base Excess ABG Hemoglobin VBG pH Oxyhemoglobin Sodium Potassium Chloride Carbon Dioxide BUN Creatinine Glucose POC Glucose 286 H Hemoglobin A1c Lactic Acid Calcium Phosphorus Magnesium Alkaline Phosphatase C-Reactive Protein Total Protein Albumin Vancomycin Trough Crossmatch See Detail 05/09/21 05/09/21 05/09/21 04:51 07:34 07:34 WBC RBC 2.46 L Hgb 6.3 L Hct 20.6 L MCV MCH 26 L RDW 15.5 H Plt Count 505 H Lymph % (Auto) Seg Neutrophils % Seg Neuts % (Manual) Lymphocytes % (Manual) Nucleated RBC % Seg Neutrophils # Lymphocytes # (Manual) PT INR ABG pO2 ABG HCO3 ABG Base Excess ABG Hemoglobin VBG pH Oxyhemoglobin Sodium Potassium Chloride Carbon Dioxide BUN 24 H Creatinine Glucose 307 H POC Glucose 266 H Hemoglobin A1c Lactic Acid Calcium 7.7 L Phosphorus Magnesium Alkaline Phosphatase C-Reactive Protein Total Protein Albumin Vancomycin Trough Crossmatch 05/09/21 05/09/21 05/10/21 12:20 16:01 05:34 WBC RBC Hgb Hct MCV MCH RDW Plt Count Lymph % (Auto) Seg Neutrophils % Seg Neuts % (Manual) Lymphocytes % (Manual) Nucleated RBC % Seg Neutrophils # Lymphocytes # (Manual) PT INR ABG pO2 ABG HCO3 ABG Base Excess ABG Hemoglobin VBG pH Oxyhemoglobin Sodium Potassium Chloride Carbon Dioxide BUN Creatinine Glucose POC Glucose 249 H 166 H 203 H Hemoglobin A1c Lactic Acid Calcium Phosphorus Magnesium Alkaline Phosphatase C-Reactive Protein Total Protein Albumin Vancomycin Trough Crossmatch 05/10/21 05/10/21 05/10/21 06:30 16:11 23:11 WBC RBC 2.62 L Hgb 6.8 L Hct 21.8 L MCV MCH 26 L RDW 15.6 H Plt Count 489 H Lymph % (Auto) Seg Neutrophils % Seg Neuts % (Manual) Lymphocytes % (Manual) Nucleated RBC % Seg Neutrophils # Lymphocytes # (Manual) PT INR ABG pO2 ABG HCO3 ABG Base Excess ABG Hemoglobin VBG pH Oxyhemoglobin Sodium Potassium Chloride Carbon Dioxide BUN Creatinine Glucose POC Glucose 210 H 134 H Hemoglobin A1c Lactic Acid Calcium Phosphorus Magnesium Alkaline Phosphatase C-Reactive Protein Total Protein Albumin Vancomycin Trough Crossmatch 05/11/21 05/11/21 05/11/21 05:29 12:07 18:11 WBC RBC Hgb Hct MCV MCH RDW Plt Count Lymph % (Auto) Seg Neutrophils % Seg Neuts % (Manual) Lymphocytes % (Manual) Nucleated RBC % Seg Neutrophils # Lymphocytes # (Manual) PT INR ABG pO2 ABG HCO3 ABG Base Excess ABG Hemoglobin VBG pH Oxyhemoglobin Sodium Potassium Chloride Carbon Dioxide BUN Creatinine Glucose POC Glucose 144 H 226 H 140 H Hemoglobin A1c Lactic Acid Calcium Phosphorus Magnesium Alkaline Phosphatase C-Reactive Protein Total Protein Albumin Vancomycin Trough Crossmatch 05/11/21 05/11/21 05/12/21 23:54 Unknown 10:01 WBC RBC 2.65 L Hgb 7.0 L Hct 22.1 L MCV MCH 26 L RDW 15.9 H Plt Count 518 H Lymph % (Auto) Seg Neutrophils % Seg Neuts % (Manual) Lymphocytes % (Manual) Nucleated RBC % Seg Neutrophils # Lymphocytes # (Manual) PT INR ABG pO2 ABG HCO3 ABG Base Excess ABG Hemoglobin VBG pH Oxyhemoglobin Sodium Potassium Chloride Carbon Dioxide BUN Creatinine Glucose POC Glucose 116 H 237 H Hemoglobin A1c Lactic Acid Calcium Phosphorus Magnesium Alkaline Phosphatase C-Reactive Protein Total Protein Albumin Vancomycin Trough Crossmatch 05/12/21 05/12/21 05/13/21 13:01 17:23 05:40 WBC RBC Hgb Hct MCV MCH RDW Plt Count Lymph % (Auto) Seg Neutrophils % Seg Neuts % (Manual) Lymphocytes % (Manual) Nucleated RBC % Seg Neutrophils # Lymphocytes # (Manual) PT INR ABG pO2 ABG HCO3 ABG Base Excess ABG Hemoglobin VBG pH Oxyhemoglobin Sodium Potassium Chloride Carbon Dioxide BUN Creatinine Glucose POC Glucose 227 H 158 H 126 H Hemoglobin A1c Lactic Acid Calcium Phosphorus Magnesium Alkaline Phosphatase C-Reactive Protein Total Protein Albumin Vancomycin Trough Crossmatch 05/13/21 05/13/21 05/13/21 09:16 09:16 11:50 WBC RBC 2.49 L Hgb 6.8 L Hct 20.7 L MCV MCH 27 L RDW 15.8 H Plt Count 535 H Lymph % (Auto) Seg Neutrophils % Seg Neuts % (Manual) Lymphocytes % (Manual) Nucleated RBC % Seg Neutrophils # Lymphocytes # (Manual) PT INR ABG pO2 ABG HCO3 ABG Base Excess ABG Hemoglobin VBG pH Oxyhemoglobin Sodium 135 L Potassium Chloride 97.0 L Carbon Dioxide BUN 25 H Creatinine Glucose 197 H POC Glucose 231 H Hemoglobin A1c Lactic Acid Calcium 7.8 L Phosphorus Magnesium Alkaline Phosphatase C-Reactive Protein Total Protein Albumin Vancomycin Trough Crossmatch 05/13/21 05/13/21 05/14/21 13:20 16:59 05:00 WBC 11.4 H RBC 2.80 L Hgb 7.7 L Hct 23.3 L MCV MCH 27 L RDW 16.0 H Plt Count 507 H Lymph % (Auto) Seg Neutrophils % Seg Neuts % (Manual) Lymphocytes % (Manual) Nucleated RBC % Seg Neutrophils # Lymphocytes # (Manual) PT INR ABG pO2 ABG HCO3 ABG Base Excess ABG Hemoglobin VBG pH Oxyhemoglobin Sodium Potassium Chloride Carbon Dioxide BUN Creatinine Glucose POC Glucose 130 H Hemoglobin A1c Lactic Acid Calcium Phosphorus Magnesium Alkaline Phosphatase C-Reactive Protein Total Protein Albumin Vancomycin Trough Crossmatch See Detail 05/14/21 05/14/21 05/14/21 05:00 05:34 11:59 WBC RBC Hgb Hct MCV MCH RDW Plt Count Lymph % (Auto) Seg Neutrophils % Seg Neuts % (Manual) Lymphocytes % (Manual) Nucleated RBC % Seg Neutrophils # Lymphocytes # (Manual) PT INR ABG pO2 ABG HCO3 ABG Base Excess ABG Hemoglobin VBG pH Oxyhemoglobin Sodium 135 L Potassium Chloride Carbon Dioxide BUN 24 H Creatinine Glucose 134 H POC Glucose 128 H 179 H Hemoglobin A1c Lactic Acid Calcium 8.0 L Phosphorus Magnesium Alkaline Phosphatase C-Reactive Protein Total Protein Albumin Vancomycin Trough Crossmatch 05/14/21 05/15/21 05/15/21 23:48 04:51 04:58 WBC 12.1 H RBC 2.80 L Hgb 7.2 L Hct 23.4 L MCV MCH 26 L RDW 16.1 H Plt Count 537 H Lymph % (Auto) Seg Neutrophils % Seg Neuts % (Manual) Lymphocytes % (Manual) Nucleated RBC % Seg Neutrophils # Lymphocytes # (Manual) PT INR ABG pO2 ABG HCO3 ABG Base Excess ABG Hemoglobin VBG pH Oxyhemoglobin Sodium Potassium Chloride Carbon Dioxide BUN Creatinine Glucose POC Glucose 171 H 220 H Hemoglobin A1c Lactic Acid Calcium Phosphorus Magnesium Alkaline Phosphatase C-Reactive Protein Total Protein Albumin Vancomycin Trough Crossmatch 05/15/21 05/15/21 05/15/21 05:53 09:02 10:48 WBC RBC Hgb Hct MCV MCH RDW Plt Count Lymph % (Auto) Seg Neutrophils % Seg Neuts % (Manual) Lymphocytes % (Manual) Nucleated RBC % Seg Neutrophils # Lymphocytes # (Manual) PT INR ABG pO2 ABG HCO3 ABG Base Excess ABG Hemoglobin VBG pH Oxyhemoglobin Sodium Potassium Chloride Carbon Dioxide BUN Creatinine Glucose POC Glucose 222 H 196 H 179 H Hemoglobin A1c Lactic Acid Calcium Phosphorus Magnesium Alkaline Phosphatase C-Reactive Protein Total Protein Albumin Vancomycin Trough Crossmatch 05/15/21 05/15/21 05/15/21 13:04 15:46 16:20 WBC RBC Hgb Hct MCV MCH RDW Plt Count Lymph % (Auto) Seg Neutrophils % Seg Neuts % (Manual) Lymphocytes % (Manual) Nucleated RBC % Seg Neutrophils # Lymphocytes # (Manual) PT 15.8 H INR 1.14 H ABG pO2 ABG HCO3 ABG Base Excess ABG Hemoglobin VBG pH Oxyhemoglobin Sodium Potassium Chloride Carbon Dioxide BUN Creatinine Glucose POC Glucose 49 L 122 H Hemoglobin A1c Lactic Acid Calcium Phosphorus Magnesium Alkaline Phosphatase C-Reactive Protein Total Protein Albumin Vancomycin Trough Crossmatch 05/15/21 05/16/21 05/16/21 22:50 00:01 05:49 WBC RBC Hgb Hct MCV MCH RDW Plt Count Lymph % (Auto) Seg Neutrophils % Seg Neuts % (Manual) Lymphocytes % (Manual) Nucleated RBC % Seg Neutrophils # Lymphocytes # (Manual) PT INR ABG pO2 ABG HCO3 ABG Base Excess ABG Hemoglobin VBG pH Oxyhemoglobin Sodium Potassium Chloride Carbon Dioxide BUN Creatinine Glucose POC Glucose 63 L 143 H 144 H Hemoglobin A1c Lactic Acid Calcium Phosphorus Magnesium Alkaline Phosphatase C-Reactive Protein Total Protein Albumin Vancomycin Trough Crossmatch 05/16/21 05/16/21 05/16/21 10:09 10:09 12:59 WBC 12.1 H RBC 3.03 L Hgb 7.6 L Hct 25.8 L MCV MCH 25 L RDW 16.5 H Plt Count 544 H Lymph % (Auto) Seg Neutrophils % Seg Neuts % (Manual) Lymphocytes % (Manual) Nucleated RBC % Seg Neutrophils # Lymphocytes # (Manual) PT INR ABG pO2 ABG HCO3 ABG Base Excess ABG Hemoglobin VBG pH Oxyhemoglobin Sodium 136 L Potassium Chloride Carbon Dioxide BUN 19 H Creatinine Glucose 174 H POC Glucose 174 H Hemoglobin A1c Lactic Acid Calcium 8.1 L Phosphorus Magnesium Alkaline Phosphatase C-Reactive Protein Total Protein Albumin Vancomycin Trough Crossmatch 05/16/21 05/16/21 05/17/21 16:19 21:07 05:39 WBC RBC Hgb Hct MCV MCH RDW Plt Count Lymph % (Auto) Seg Neutrophils % Seg Neuts % (Manual) Lymphocytes % (Manual) Nucleated RBC % Seg Neutrophils # Lymphocytes # (Manual) PT INR ABG pO2 ABG HCO3 ABG Base Excess ABG Hemoglobin VBG pH Oxyhemoglobin Sodium Potassium Chloride Carbon Dioxide BUN Creatinine Glucose POC Glucose 196 H 155 H 150 H Hemoglobin A1c Lactic Acid Calcium Phosphorus Magnesium Alkaline Phosphatase C-Reactive Protein Total Protein Albumin Vancomycin Trough Crossmatch 05/17/21 05/17/21 05/17/21 12:21 16:59 21:35 WBC RBC Hgb Hct MCV MCH RDW Plt Count Lymph % (Auto) Seg Neutrophils % Seg Neuts % (Manual) Lymphocytes % (Manual) Nucleated RBC % Seg Neutrophils # Lymphocytes # (Manual) PT INR ABG pO2 ABG HCO3 ABG Base Excess ABG Hemoglobin VBG pH Oxyhemoglobin Sodium Potassium Chloride Carbon Dioxide BUN Creatinine Glucose POC Glucose 159 H 169 H 157 H Hemoglobin A1c Lactic Acid Calcium Phosphorus Magnesium Alkaline Phosphatase C-Reactive Protein Total Protein Albumin Vancomycin Trough Crossmatch 05/18/21 05/18/21 05/18/21 05:10 05:10 05:26 WBC RBC 2.94 L Hgb 7.7 L Hct 24.5 L MCV MCH 26 L RDW 16.3 H Plt Count 523 H Lymph % (Auto) Seg Neutrophils % Seg Neuts % (Manual) Lymphocytes % (Manual) Nucleated RBC % Seg Neutrophils # Lymphocytes # (Manual) PT INR ABG pO2 ABG HCO3 ABG Base Excess ABG Hemoglobin VBG pH Oxyhemoglobin Sodium Potassium Chloride Carbon Dioxide BUN Creatinine Glucose 235 H POC Glucose 209 H Hemoglobin A1c Lactic Acid Calcium 7.9 L Phosphorus Magnesium Alkaline Phosphatase C-Reactive Protein Total Protein Albumin Vancomycin Trough Crossmatch 05/18/21 05/18/21 05/18/21 07:53 10:46 15:41 WBC RBC Hgb Hct MCV MCH RDW Plt Count Lymph % (Auto) Seg Neutrophils % Seg Neuts % (Manual) Lymphocytes % (Manual) Nucleated RBC % Seg Neutrophils # Lymphocytes # (Manual) PT INR ABG pO2 ABG HCO3 ABG Base Excess ABG Hemoglobin VBG pH Oxyhemoglobin Sodium Potassium Chloride Carbon Dioxide BUN Creatinine Glucose POC Glucose 174 H 222 H 206 H Hemoglobin A1c Lactic Acid Calcium Phosphorus Magnesium Alkaline Phosphatase C-Reactive Protein Total Protein Albumin Vancomycin Trough Crossmatch Allied health notes reviewed: nursing
[2021-05-18] MEDS: CALCIUM CARBONATE 500 MG TAB CHEW PO SCH (22:23)
[2021-05-18] MEDS: SENNOSIDES 8.6 MG TAB PO SCH ×2 (22:23→22:25)
[2021-05-19] MEDS: ONDANSETRON 4 MG/2 ML INJ IV PRN ×2 (02:15→19:37)
[2021-05-19] MEDS: FREE WATER PO SCH ×6 (04:00→20:00)
[2021-05-19] MEDS: HEPARIN 5,000 UNIT/1 ML VIAL SUB-Q SCH ×3 (05:31→22:33)
[2021-05-19] MEDS: INSULIN LISPRO 100 UNIT/ML SUB-Q SCH ×4 (05:40→18:41)
[2021-05-19] MEDS: METOCLOPRAMIDE 10 MG/10 ML ORAL LIQD FEEDTUBE SCH ×4 (09:00→22:31)
[2021-05-19] MEDS: INSULIN NPH/REGULAR 70/30 INJ SUB-Q SCH ×2 (09:17→16:03)
[2021-05-19] MEDS: LANSOPRAZOLE 30 MG SOLUTAB FEEDTUBE SCH (10:18)
[2021-05-19] MEDS: CALCIUM CARBONATE 500 MG TAB CHEW PO SCH ×2 (10:18→22:31)
[2021-05-19] MEDS: hydrALAZINE 20 MG/1 ML INJ IV PRN (14:05)
[2021-05-19] MEDS: HYDROmorphone 1 MG/1 ML INJ IV PRN (19:43)
--- NOTE | 2021-05-19 20:46 | Progress Note ---
Assessment and Plan 51 YO Female with DM, OA, Medication Noncompliance, Obesity presents to ED for evaluation. Patient reports "I feel sick". Patient states she had experienced weakness, elevated blood glucose levels, nausea, polydipsia, polyuria, as well a s diminished oral intake over the past 1 week with worsening symptoms over the last 2 days. Patient acknowledges noncompliance with oral antihyperglycemic therapy. Patient states that her weight has gotten progressively worse and and that she is "too weak to walk". EMS was notified and upon arrival the patient was found to be in distress and subsequent transported to [facility] for further care and evaluation of the aforementioned symptoms. The patient was seen and evaluated in the emergency department. All lab and imaging studies reviewed. The patient was found to have diabetic ketoacidosis, metabolic encephalopathy, as well as metabolic acidosis, and volume depletion. Patient mated to ICU and initiated on DKA protocol. Critical care team consulted in ED. Patient has fever, chills, chest pain, palpitation, productive cough, skin rash, recent contact, known exposure to COVID-1 Patients sullivan virus PCR is negative. Patient is awake, alert, but weak. Patient is on 2 litres O2. O2 saturation 96%. No Complaint of chest pain, shortness of breath or cough Patient is afebrile. No leukocytosis. Blood pressure 150/78, Pulse 103, respirations 18. 05/18/21 Hgb is 7.7. Patient received a blood transfusion. Chest xray done 04/29/21 reported Low lung volumes with bibasilar opacities/atelectasis persists, unchanged. No pneumothorax. Chest xray done 05/08/21 reported table, mild increased densities and atelectasis in the lower lungs. No pneumothorax. Chest xray done 05/13/21 reported Increased interstitial prominence in bilateral lungs. Elevation right hemidiaphragm with right lower lung atelectasis No pneumothorax. Patient had right knee surgery. Patient is on Cefazolin, Albuterol aerosol treatments and Prevacid and S/C Heparin. - Patient Problems (1) High anion gap metabolic acidosis Current Visit: Yes Status: Acute Plan to address problem: Improving. 05/18/21 anion gap is 16 (2) DKA (diabetic ketoacidosis) Current Visit: Yes Status: Acute Qualifiers: Diabetes mellitus type: type 1 Plan to address problem: Improving. Management as primary care. (3) Metabolic encephalopathy Current Visit: Yes Status: Acute Plan to address problem: Management as primary care and neurology. (4) Abscess of right foot Current Visit: No Status: Acute Plan to address problem: Management as primary care and ID Patient on Cefazolin (5) Diabetic ulcer of right foot associated with diabetes mellitus due to underlying condition, with fat layer exposed Current Visit: No Status: Acute Plan to address problem: Management as per primary care. (6) Hypertension Current Visit: No Status: Chronic Plan to address problem: Management as primary care. Subjective Date of service: 05/19/21 Principal diagnosis: HAGMA; DKA; AMS; Obesity; Osteoarthritis; Hypercalcemia Interval history: 51 YO Female with DM, OA, Medication Noncompliance, Obesity presents to ED for evaluation. Patient reports "I feel sick". Patient states she had experienced weakness, elevated blood glucose levels, nausea, polydipsia, polyuria, as well as diminished oral intake over the past 1 week with worsening symptoms over the last 2 days. Patient acknowledges noncompliance with oral antihyperglycemic therapy. Patient states that her weight has gotten progressively worse and and that she is "too weak to walk". EMS was notified and upon arrival the patient was found to be in distress and subsequent transported to [facility] for further care and evaluation of the aforementioned symptoms. The patient was seen and evaluated in the emergency department. All lab and imaging studies reviewed. The patient was found to have diabetic ketoacidosis, metabolic encephalopathy, as well as metabolic acidosis, and volume depletion. Patient mated to ICU and initiated on DKA protocol. Critical care team consulted in ED. Patient has fever, chills, chest pain, palpitation, productive cough, skin rash, recent contact, known exposure to COVID-1 Patients sullivan virus PCR is negative. Patient is awake, alert, but weak. Patient is on 2 litres O2. O2 saturation 96%. No Complaint of chest pain, shortness of breath or cough Patient is afebrile. No leukocytosis. Blood pressure 150/78, Pulse 103, respirations 18. 05/18/21 Hgb is 7.7. Patient received a blood transfusion. Chest xray done 04/29/21 reported Low lung volumes with bibasilar opacities/atelectasis persists, unchanged. No pneumothorax. Chest xray done 05/08/21 reported table, mild increased densities and atelectasis in the lower lungs. No pneumothorax. Chest xray done 05/13/21 reported Increased interstitial prominence in bilateral lungs. Elevation right hemidiaphragm with right lower lung atelectasis No pneumothorax. Patient had right knee surgery. Patient is on Cefazolin, Albuterol aerosol treatments and Prevacid and S/C Hepa rin. Objective Vital Signs - 12hr 05/19/21 05/19/21 05/19/21 10:00 11:27 16:40 Temperature 98.7 F 99.9 F H Pulse Rate 101 H 101 H Respiratory 18 18 Rate Blood Pressure 193/88 156/82 O2 Sat by Pulse 96 93 96 Oximetry Constitutional: no acute distress, alert Eyes: non-icteric ENT: oropharynx moist Neck: supple, no lymphadenopathy, no JVD Effort: normal Ascultation: Bilateral: diminished breath sounds, rhonchi Percussion: Bilateral: not dull Cardiovascular: regular rate and rhythm, other (S1,S2) Gastrointestinal: hypoactive bowel sounds, soft, non-tender, non-distended (protuberant) Integumentary: rash (perineal) Extremities: no cyanosis, no edema, pulses normal, no ischemia or petechiae, other (Right knee surgery.) Neurologic: normal mental status, non-focal exam, pupils equal and round, other Psychiatric: mood appropriate, affect normal CBC and BMP: 05/18/21 05:10 05/18/21 05:10 ABG, PT/INR, D-dimer: ABG ABG pH 7.426 pH Units (7.350-7.450) 04/25/21 11:20 ABG pCO2 25.3 mm Hg 04/25/21 11:20 ABG pO2 73.2 mm Hg (80.0-90.0) L 04/25/21 11:20 ABG O2 Saturation 96.9 % (95.0-99.0) 04/25/21 11:20 PT/INR, D-dimer PT 15.8 Sec. (12.2-14.9) H 05/15/21 13:04 INR 1.14 (0.87-1.13) H 05/15/21 13:04 Abnormal lab findings: Abnormal Labs 12/07/21 12/07/21 12/07/21 10:33 10:33 10:33 WBC RBC Hgb Hct MCV MCH 26 L RDW Plt Count Lymph % (Auto) Seg Neutrophils % Seg Neuts % (Manual) Lymphocytes % (Manual) 7.0 L Nucleated RBC % 2.0 H Seg Neutrophils # Lymphocytes # (Manual) 0.5 L PT INR ABG pO2 ABG HCO3 ABG Base Excess ABG Hemoglobin VBG pH 7.180 L* Oxyhemoglobin Sodium 122 L Potassium 3.0 L Chloride 84.8 L Carbon Dioxide 6 L* BUN 49 H Creatinine 1.4 H Glucose 775 H* POC Glucose Hemoglobin A1c Lactic Acid Calcium 12.2 H* Phosphorus Magnesium Alkaline Phosphatase 130 H C-Reactive Protein Total Protein Albumin 2.9 L Vancomycin Trough Crossmatch 04/23/21 04/23/21 04/23/21 10:40 12:44 14:01 WBC RBC Hgb Hct MCV MCH RDW Plt Count Lymph % (Auto) Seg Neutrophils % Seg Neuts % (Manual) Lymphocytes % (Manual) Nucleated RBC % Seg Neutrophils # Lymphocytes # (Manual) PT INR ABG pO2 ABG HCO3 ABG Base Excess ABG Hemoglobin VBG pH Oxyhemoglobin Sodium Potassium Chloride Carbon Dioxide BUN Creatinine Glucose POC Glucose > 600 H 550 H Hemoglobin A1c Lactic Acid Calcium Phosphorus 1.50 L Magnesium Alkaline Phosphatase C-Reactive Protein Total Protein Albumin Vancomycin Trough Crossmatch 04/23/21 04/23/21 04/23/21 14:01 14:04 14:56 WBC RBC Hgb Hct MCV MCH RDW Plt Count Lymph % (Auto) Seg Neutrophils % Seg Neuts % (Manual) Lymphocytes % (Manual) Nucleated RBC % Seg Neutrophils # Lymphocytes # (Manual) PT INR ABG pO2 ABG HCO3 ABG Base Excess ABG Hemoglobin VBG pH Oxyhemoglobin Sodium 125 L Potassium 3.0 L Chloride 89.2 L Carbon Dioxide 6 L* BUN 45 H Creatinine 1.3 H Glucose 594 H* POC Glucose 518 H 425 H Hemoglobin A1c Lactic Acid Calcium 10.9 H Phosphorus Magnesium Alkaline Phosphatase C-Reactive Protein Total Protein Albumin Vancomycin Trough Crossmatch 04/23/21 04/23/21 04/23/21 15:43 15:48 17:21 WBC RBC Hgb Hct MCV MCH RDW Plt Count Lymph % (Auto) Seg Neutrophils % Seg Neuts % (Manual) Lymphocytes % (Manual) Nucleated RBC % Seg Neutrophils # Lymphocytes # (Manual) PT INR ABG pO2 ABG HCO3 ABG Base Excess ABG Hemoglobin VBG pH Oxyhemoglobin Sodium 131 L Potassium 2.9 L* Chloride Carbon Dioxide 8 L* BUN 39 H Creatinine Glucose 434 H POC Glucose 410 H 407 H Hemoglobin A1c Lactic Acid Calcium 10.3 H Phosphorus Magnesium Alkaline Phosphatase C-Reactive Protein Total Protein Albumin Vancomycin Trough Crossmatch 04/23/21 04/23/21 04/23/21 18:07 19:13 19:54 WBC RBC Hgb Hct MCV MCH RDW Plt Count Lymph % (Auto) Seg Neutrophils % Seg Neuts % (Manual) Lymphocytes % (Manual) Nucleated RBC % Seg Neutrophils # Lymphocytes # (Manual) PT INR ABG pO2 ABG HCO3 ABG Base Excess ABG Hemoglobin VBG pH Oxyhemoglobin Sodium 131 L Potassium 3.1 L Chloride 95.9 L Carbon Dioxide 7 L* BUN 39 H Creatinine Glucose 391 H POC Glucose 428 H 350 H Hemoglobin A1c Lactic Acid Calcium 11.2 H Phosphorus Magnesium Alkaline Phosphatase C-Reactive Protein Total Protein Albumin Vancomycin Trough Crossmatch 04/23/21 04/23/21 04/23/21 19:54 20:12 20:59 WBC RBC Hgb Hct MCV MCH RDW Plt Count Lymph % (Auto) Seg Neutrophils % Seg Neuts % (Manual) Lymphocytes % (Manual) Nucleated RBC % Seg Neutrophils # Lymphocytes # (Manual) PT INR ABG pO2 ABG HCO3 ABG Base Excess ABG Hemoglobin VBG pH Oxyhemoglobin Sodium Potassium Chloride Carbon Dioxide BUN Creatinine Glucose POC Glucose 365 H 286 H Hemoglobin A1c Lactic Acid Calcium Phosphorus 1.10 L D Magnesium Alkaline Phosphatase C-Reactive Protein Total Protein Albumin Vancomycin Trough Crossmatch 04/23/21 04/23/21 04/23/21 22:05 22:23 22:59 WBC RBC Hgb Hct MCV MCH RDW Plt Count Lymph % (Auto) Seg Neutrophils % Seg Neuts % (Manual) Lymphocytes % (Manual) Nucleated RBC % Seg Neutrophils # Lymphocytes # (Manual) PT INR ABG pO2 ABG HCO3 ABG Base Excess ABG Hemoglobin VBG pH Oxyhemoglobin Sodium 135 L Potassium 3.2 L Chloride Carbon Dioxide 10 L BUN 35 H Creatinine Glucose 300 H POC Glucose 257 H 238 H Hemoglobin A1c Lactic Acid Calcium 11.6 H Phosphorus Magnesium Alkaline Phosphatase C-Reactive Protein Total Protein Albumin Vancomycin Trough Crossmatch 04/23/21 04/24/21 04/24/21 23:57 00:10 00:56 WBC RBC Hgb Hct MCV MCH RDW Plt Count Lymph % (Auto) Seg Neutrophils % Seg Neuts % (Manual) Lymphocytes % (Manual) Nucleated RBC % Seg Neutrophils # Lymphocytes # (Manual) PT INR ABG pO2 ABG HCO3 ABG Base Excess ABG Hemoglobin VBG pH Oxyhemoglobin Sodium Potassium 3.2 L Chloride Carbon Dioxide 13 L BUN 33 H Creatinine Glucose 267 H POC Glucose 223 H 254 H Hemoglobin A1c Lactic Acid Calcium 11.2 H Phosphorus 1.20 L Magnesium Alkaline Phosphatase C-Reactive Protein Total Protein Albumin Vancomycin Trough Crossmatch 04/24/21 04/24/21 04/24/21 01:58 02:58 03:57 WBC RBC Hgb Hct MCV MCH RDW Plt Count Lymph % (Auto) Seg Neutrophils % Seg Neuts % (Manual) Lymphocytes % (Manual) Nucleated RBC % Seg Neutrophils # Lymphocytes # (Manual) PT INR ABG pO2 ABG HCO3 ABG Base Excess ABG Hemoglobin VBG pH Oxyhemoglobin Sodium Potassium Chloride Carbon Dioxide BUN Creatinine Glucose POC Glucose 264 H 251 H 200 H Hemoglobin A1c Lactic Acid Calcium Phosphorus Magnesium Alkaline Phosphatase C-Reactive Protein Total Protein Albumin Vancomycin Trough Crossmatch 04/24/21 04/24/21 04/24/21 04:16 04:16 04:16 WBC RBC Hgb Hct MCV MCH 26 L RDW Plt Count Lymph % (Auto) Seg Neutrophils % Seg Neuts % (Manual) Lymphocytes % (Manual) Nucleated RBC % Seg Neutrophils # Lymphocytes # (Manual) PT INR ABG pO2 ABG HCO3 ABG Base Excess ABG Hemoglobin VBG pH Oxyhemoglobin Sodium Potassium Chloride 108.0 H Carbon Dioxide 13 L BUN 31 H Creatinine Glucose 243 H POC Glucose Hemoglobin A1c 18.3 H Lactic Acid Calcium 10.9 H Phosphorus 1.80 L D Magnesium Alkaline Phosphatase C-Reactive Protein Total Protein Albumin Vancomycin Trough Crossmatch 04/24/21 04/24/21 04/24/21 04:59 05:53 06:51 WBC RBC Hgb Hct MCV MCH RDW Plt Count Lymph % (Auto) Seg Neutrophils % Seg Neuts % (Manual) Lymphocytes % (Manual) Nucleated RBC % Seg Neutrophils # Lymphocytes # (Manual) PT INR ABG pO2 ABG HCO3 ABG Base Excess ABG Hemoglobin VBG pH Oxyhemoglobin Sodium Potassium Chloride Carbon Dioxide BUN Creatinine Glucose POC Glucose 208 H 213 H 161 H Hemoglobin A1c Lactic Acid Calcium Phosphorus Magnesium Alkaline Phosphatase C-Reactive Protein Total Protein Albumin Vancomycin Trough Crossmatch 04/24/21 04/24/21 04/24/21 07:58 09:21 10:06 WBC RBC Hgb Hct MCV MCH RDW Plt Count Lymph % (Auto) Seg Neutrophils % Seg Neuts % (Manual) Lymphocytes % (Manual) Nucleated RBC % Seg Neutrophils # Lymphocytes # (Manual) PT INR ABG pO2 ABG HCO3 ABG Base Excess ABG Hemoglobin VBG pH Oxyhemoglobin Sodium Potassium Chloride Carbon Dioxide BUN Creatinine Glucose POC Glucose 149 H 178 H 164 H Hemoglobin A1c Lactic Acid Calcium Phosphorus Magnesium Alkaline Phosphatase C-Reactive Protein Total Protein Albumin Vancomycin Trough Crossmatch 04/24/21 04/24/21 04/24/21 11:03 12:07 12:14 WBC RBC Hgb Hct MCV MCH RDW Plt Count Lymph % (Auto) Seg Neutrophils % Seg Neuts % (Manual) Lymphocytes % (Manual) Nucleated RBC % Seg Neutrophils # Lymphocytes # (Manual) PT INR ABG pO2 ABG HCO3 ABG Base Excess ABG Hemoglobin VBG pH Oxyhemoglobin Sodium Potassium 3.2 L Chloride 108.7 H Carbon Dioxide 16 L BUN 24 H Creatinine Glucose 160 H POC Glucose 157 H 142 H Hemoglobin A1c Lactic Acid Calcium 10.5 H Phosphorus 0.70 L* D Magnesium Alkaline Phosphatase C-Reactive Protein Total Protein Albumin Vancomycin Trough Crossmatch 04/24/21 04/24/21 04/24/21 12:14 13:02 14:00 WBC RBC Hgb Hct MCV MCH RDW Plt Count Lymph % (Auto) Seg Neutrophils % Seg Neuts % (Manual) Lymphocytes % (Manual) Nucleated RBC % Seg Neutrophils # Lymphocytes # (Manual) PT INR ABG pO2 ABG HCO3 ABG Base Excess ABG Hemoglobin VBG pH Oxyhemoglobin Sodium Potassium Chloride Carbon Dioxide BUN Creatinine Glucose POC Glucose 138 H 150 H Hemoglobin A1c Lactic Acid 2.50 H* Calcium Phosphorus Magnesium Alkaline Phosphatase C-Reactive Protein Total Protein Albumin Vancomycin Trough Crossmatch 04/24/21 04/24/21 04/24/21 15:14 16:07 17:11 WBC RBC Hgb Hct MCV MCH RDW Plt Count Lymph % (Auto) Seg Neutrophils % Seg Neuts % (Manual) Lymphocytes % (Manual) Nucleated RBC % Seg Neutrophils # Lymphocytes # (Manual) PT INR ABG pO2 ABG HCO3 ABG Base Excess ABG Hemoglobin VBG pH Oxyhemoglobin Sodium Potassium Chloride Carbon Dioxide BUN Creatinine Glucose POC Glucose 145 H 148 H 156 H Hemoglobin A1c Lactic Acid Calcium Phosphorus Magnesium Alkaline Phosphatase C-Reactive Protein Total Protein Albumin Vancomycin Trough Crossmatch 04/24/21 04/24/21 04/24/21 18:12 18:24 19:55 WBC RBC Hgb Hct MCV MCH RDW Plt Count Lymph % (Auto) Seg Neutrophils % Seg Neuts % (Manual) Lymphocytes % (Manual) Nucleated RBC % Seg Neutrophils # Lymphocytes # (Manual) PT INR ABG pO2 ABG HCO3 ABG Base Excess ABG Hemoglobin VBG pH Oxyhemoglobin Sodium Potassium Chloride 109.2 H Carbon Dioxide 15 L BUN 22 H Creatinine Glucose 159 H POC Glucose 153 H 176 H Hemoglobin A1c Lactic Acid Calcium Phosphorus 1.80 L D Magnesium Alkaline Phosphatase C-Reactive Protein 24.30 H Total Protein Albumin Vancomycin Trough Crossmatch 04/24/21 04/24/21 04/24/21 20:55 22:04 23:02 WBC RBC Hgb Hct MCV MCH RDW Plt Count Lymph % (Auto) Seg Neutrophils % Seg Neuts % (Manual) Lymphocytes % (Manual) Nucleated RBC % Seg Neutrophils # Lymphocytes # (Manual) PT INR ABG pO2 ABG HCO3 ABG Base Excess ABG Hemoglobin VBG pH Oxyhemoglobin Sodium Potassium Chloride Carbon Dioxide BUN Creatinine Glucose POC Glucose 146 H 169 H Hemoglobin A1c Lactic Acid 3.10 H* Calcium Phosphorus Magnesium Alkaline Phosphatase C-Reactive Protein Total Protein Albumin Vancomycin Trough Crossmatch 04/24/21 04/25/21 04/25/21 23:13 00:05 01:28 WBC RBC Hgb Hct MCV MCH RDW Plt Count Lymph % (Auto) Seg Neutrophils % Seg Neuts % (Manual) Lymphocytes % (Manual) Nucleated RBC % Seg Neutrophils # Lymphocytes # (Manual) PT INR ABG pO2 ABG HCO3 ABG Base Excess ABG Hemoglobin VBG pH Oxyhemoglobin Sodium Potassium Chloride Carbon Dioxide BUN Creatinine Glucose POC Glucose 144 H 150 H 142 H Hemoglobin A1c Lactic Acid Calcium Phosphorus Magnesium Alkaline Phosphatase C-Reactive Protein Total Protein Albumin Vancomycin Trough Crossmatch 04/25/21 04/25/21 04/25/21 02:03 03:07 04:17 WBC RBC Hgb Hct MCV MCH RDW Plt Count Lymph % (Auto) Seg Neutrophils % Seg Neuts % (Manual) Lymphocytes % (Manual) Nucleated RBC % Seg Neutrophils # Lymphocytes # (Manual) PT INR ABG pO2 ABG HCO3 ABG Base Excess ABG Hemoglobin VBG pH Oxyhemoglobin Sodium Potassium Chloride Carbon Dioxide BUN Creatinine Glucose POC Glucose 148 H 161 H 158 H Hemoglobin A1c Lactic Acid Calcium Phosphorus Magnesium Alkaline Phosphatase C-Reactive Protein Total Protein Albumin Vancomycin Trough Crossmatch 04/25/21 04/25/21 04/25/21 05:48 06:52 07:58 WBC RBC Hgb Hct MCV MCH RDW Plt Count Lymph % (Auto) Seg Neutrophils % Seg Neuts % (Manual) Lymphocytes % (Manual) Nucleated RBC % Seg Neutrophils # Lymphocytes # (Manual) PT INR ABG pO2 ABG HCO3 ABG Base Excess ABG Hemoglobin VBG pH Oxyhemoglobin Sodium Potassium Chloride Carbon Dioxide BUN Creatinine Glucose POC Glucose 136 H 137 H 143 H Hemoglobin A1c Lactic Acid Calcium Phosphorus Magnesium Alkaline Phosphatase C-Reactive Protein Total Protein Albumin Vancomycin Trough Crossmatch 04/25/21 04/25/21 04/25/21 08:10 08:10 08:10 WBC RBC Hgb 9.5 L Hct 28.8 L MCV MCH 26 L RDW Plt Count Lymph % (Auto) Seg Neutrophils % Seg Neuts % (Manual) 33.0 L Lymphocytes % (Manual) Nucleated RBC % Seg Neutrophils # Lymphocytes # (Manual) 1.1 L PT INR ABG pO2 ABG HCO3 ABG Base Excess ABG Hemoglobin VBG pH Oxyhemoglobin Sodium Potassium 3.3 L Chloride 109.0 H Carbon Dioxide 16 L BUN 23 H Creatinine Glucose 151 H POC Glucose Hemoglobin A1c Lactic Acid 2.10 H* Calcium Phosphorus 2.20 L D Magnesium 1.60 L Alkaline Phosphatase C-Reactive Protein Total Protein Albumin Vancomycin Trough Crossmatch 04/25/21 04/25/21 04/25/21 08:53 09:59 11:20 WBC RBC Hgb Hct MCV MCH RDW Plt Count Lymph % (Auto) Seg Neutrophils % Seg Neuts % (Manual) Lymphocytes % (Manual) Nucleated RBC % Seg Neutrophils # Lymphocytes # (Manual) PT INR ABG pO2 ABG HCO3 ABG Base Excess ABG Hemoglobin VBG pH Oxyhemoglobin Sodium Potassium Chloride Carbon Dioxide BUN Creatinine Glucose POC Glucose 132 H 141 H 141 H Hemoglobin A1c Lactic Acid Calcium Phosphorus Magnesium Alkaline Phosphatase C-Reactive Protein Total Protein Albumin Vancomycin Trough Crossmatch 04/25/21 04/25/21 04/25/21 11:20 12:04 12:26 WBC RBC Hgb Hct MCV MCH RDW Plt Count Lymph % (Auto) Seg Neutrophils % Seg Neuts % (Manual) Lymphocytes % (Manual) Nucleated RBC % Seg Neutrophils # Lymphocytes # (Manual) PT INR ABG pO2 73.2 L ABG HCO3 16.2 L ABG Base Excess -7.1 L ABG Hemoglobin 8.7 L VBG pH Oxyhemoglobin 94.8 L Sodium Potassium 3.4 L Chloride 109.5 H Carbon Dioxide 14 L BUN 21 H Creatinine Glucose 155 H POC Glucose 129 H Hemoglobin A1c Lactic Acid Calcium Phosphorus 1.90 L Magnesium 1.60 L Alkaline Phosphatase C-Reactive Protein Total Protein Albumin Vancomycin Trough Crossmatch 04/25/21 04/25/21 04/25/21 13:04 13:58 15:09 WBC RBC Hgb Hct MCV MCH RDW Plt Count Lymph % (Auto) Seg Neutrophils % Seg Neuts % (Manual) Lymphocytes % (Manual) Nucleated RBC % Seg Neutrophils # Lymphocytes # (Manual) PT INR ABG pO2 ABG HCO3 ABG Base Excess ABG Hemoglobin VBG pH Oxyhemoglobin Sodium Potassium Chloride Carbon Dioxide BUN Creatinine Glucose POC Glucose 135 H 140 H 134 H Hemoglobin A1c Lactic Acid Calcium Phosphorus Magnesium Alkaline Phosphatase C-Reactive Protein Total Protein Albumin Vancomycin Trough Crossmatch 04/25/21 04/25/21 04/25/21 16:00 18:56 18:58 WBC RBC Hgb Hct MCV MCH RDW Plt Count Lymph % (Auto) Seg Neutrophils % Seg Neuts % (Manual) Lymphocytes % (Manual) Nucleated RBC % Seg Neutrophils # Lymphocytes # (Manual) PT INR ABG pO2 ABG HCO3 ABG Base Excess ABG Hemoglobin VBG pH Oxyhemoglobin Sodium Potassium Chloride Carbon Dioxide BUN Creatinine Glucose POC Glucose 135 H 170 H Hemoglobin A1c Lactic Acid 2.10 H* Calcium Phosphorus Magnesium Alkaline Phosphatase C-Reactive Protein Total Protein Albumin Vancomycin Trough Crossmatch 04/25/21 04/25/21 04/25/21 18:58 19:52 20:53 WBC RBC Hgb Hct MCV MCH RDW Plt Count Lymph % (Auto) Seg Neutrophils % Seg Neuts % (Manual) Lymphocytes % (Manual) Nucleated RBC % Seg Neutrophils # Lymphocytes # (Manual) PT INR ABG pO2 ABG HCO3 ABG Base Excess ABG Hemoglobin VBG pH Oxyhemoglobin Sodium Potassium Chloride 110.1 H Carbon Dioxide 13 L BUN 23 H Creatinine Glucose 206 H POC Glucose 162 H 171 H Hemoglobin A1c Lactic Acid Calcium Phosphorus Magnesium 2.40 H Alkaline Phosphatase C-Reactive Protein Total Protein Albumin Vancomycin Trough Crossmatch 04/25/21 04/25/21 04/26/21 21:54 22:53 00:03 WBC RBC Hgb Hct MCV MCH RDW Plt Count Lymph % (Auto) Seg Neutrophils % Seg Neuts % (Manual) Lymphocytes % (Manual) Nucleated RBC % Seg Neutrophils # Lymphocytes # (Manual) PT INR ABG pO2 ABG HCO3 ABG Base Excess ABG Hemoglobin VBG pH Oxyhemoglobin Sodium Potassium Chloride Carbon Dioxide BUN Creatinine Glucose POC Glucose 139 H 140 H 129 H Hemoglobin A1c Lactic Acid Calcium Phosphorus Magnesium Alkaline Phosphatase C-Reactive Protein Total Protein Albumin Vancomycin Trough Crossmatch 04/26/21 04/26/21 04/26/21 00:38 01:00 01:56 WBC RBC Hgb Hct MCV MCH RDW Plt Count Lymph % (Auto) Seg Neutrophils % Seg Neuts % (Manual) Lymphocytes % (Manual) Nucleated RBC % Seg Neutrophils # Lymphocytes # (Manual) PT INR ABG pO2 ABG HCO3 ABG Base Excess ABG Hemoglobin VBG pH Oxyhemoglobin Sodium Potassium Chloride 112.6 H Carbon Dioxide 14 L BUN 22 H Creatinine Glucose 149 H POC Glucose 126 H 137 H Hemoglobin A1c Lactic Acid Calcium Phosphorus Magnesium 2.40 H Alkaline Phosphatase C-Reactive Protein Total Protein Albumin Vancomycin Trough Crossmatch 04/26/21 04/26/21 04/26/21 02:54 04:04 05:02 WBC RBC 3.44 L Hgb 8.9 L Hct 26.9 L MCV 78 L MCH 26 L RDW Plt Count Lymph % (Auto) Seg Neutrophils % Seg Neuts % (Manual) Lymphocytes % (Manual) Nucleated RBC % Seg Neutrophils # Lymphocytes # (Manual) PT INR ABG pO2 ABG HCO3 ABG Base Excess ABG Hemoglobin VBG pH Oxyhemoglobin Sodium Potassium Chloride Carbon Dioxide BUN Creatinine Glucose POC Glucose 132 H 130 H Hemoglobin A1c Lactic Acid Calcium Phosphorus Magnesium Alkaline Phosphatase C-Reactive Protein Total Protein Albumin Vancomycin Trough Crossmatch 04/26/21 04/26/21 04/26/21 05:02 05:03 06:06 WBC RBC Hgb Hct MCV MCH RDW Plt Count Lymph % (Auto) Seg Neutrophils % Seg Neuts % (Manual) Lymphocytes % (Manual) Nucleated RBC % Seg Neutrophils # Lymphocytes # (Manual) PT INR ABG pO2 ABG HCO3 ABG Base Excess ABG Hemoglobin VBG pH Oxyhemoglobin Sodium Potassium Chloride 114.8 H Carbon Dioxide 14 L BUN 22 H Creatinine Glucose 129 H POC Glucose 115 H 129 H Hemoglobin A1c Lactic Acid Calcium Phosphorus Magnesium Alkaline Phosphatase C-Reactive Protein Total Protein Albumin Vancomycin Trough Crossmatch 04/26/21 04/26/21 04/26/21 06:53 07:58 09:09 WBC RBC Hgb Hct MCV MCH RDW Plt Count Lymph % (Auto) Seg Neutrophils % Seg Neuts % (Manual) Lymphocytes % (Manual) Nucleated RBC % Seg Neutrophils # Lymphocytes # (Manual) PT INR ABG pO2 ABG HCO3 ABG Base Excess ABG Hemoglobin VBG pH Oxyhemoglobin Sodium Potassium Chloride Carbon Dioxide BUN Creatinine Glucose POC Glucose 121 H 124 H 125 H Hemoglobin A1c Lactic Acid Calcium Phosphorus Magnesium Alkaline Phosphatase C-Reactive Protein Total Protein Albumin Vancomycin Trough Crossmatch 04/26/21 04/26/21 04/26/21 10:05 10:52 12:00 WBC RBC Hgb Hct MCV MCH RDW Plt Count Lymph % (Auto) Seg Neutrophils % Seg Neuts % (Manual) Lymphocytes % (Manual) Nucleated RBC % Seg Neutrophils # Lymphocytes # (Manual) PT INR ABG pO2 ABG HCO3 ABG Base Excess ABG Hemoglobin VBG pH Oxyhemoglobin Sodium Potassium Chloride Carbon Dioxide BUN Creatinine Glucose POC Glucose 131 H 129 H 126 H Hemoglobin A1c Lactic Acid Calcium Phosphorus Magnesium Alkaline Phosphatase C-Reactive Protein Total Protein Albumin Vancomycin Trough Crossmatch 04/26/21 04/26/21 04/26/21 13:17 14:06 14:11 WBC RBC Hgb Hct MCV MCH RDW Plt Count Lymph % (Auto) Seg Neutrophils % Seg Neuts % (Manual) Lymphocytes % (Manual) Nucleated RBC % Seg Neutrophils # Lymphocytes # (Manual) PT INR ABG pO2 ABG HCO3 ABG Base Excess ABG Hemoglobin VBG pH Oxyhemoglobin Sodium Potassium 5.3 H D Chloride 112.2 H Carbon Dioxide 14 L BUN 22 H Creatinine Glucose 116 H POC Glucose 130 H 132 H Hemoglobin A1c Lactic Acid Calcium Phosphorus Magnesium 2.40 H Alkaline Phosphatase C-Reactive Protein Total Protein Albumin Vancomycin Trough Crossmatch 04/26/21 04/26/21 04/26/21 15:07 15:20 16:05 WBC RBC Hgb Hct MCV MCH RDW Plt Count Lymph % (Auto) Seg Neutrophils % Seg Neuts % (Manual) Lymphocytes % (Manual) Nucleated RBC % Seg Neutrophils # Lymphocytes # (Manual) PT INR ABG pO2 ABG HCO3 ABG Base Excess ABG Hemoglobin VBG pH Oxyhemoglobin Sodium Potassium Chloride 112.4 H Carbon Dioxide 13 L BUN 22 H Creatinine Glucose 143 H POC Glucose 130 H 156 H Hemoglobin A1c Lactic Acid Calcium Phosphorus Magnesium Alkaline Phosphatase C-Reactive Protein Total Protein Albumin Vancomycin Trough Crossmatch 04/26/21 04/26/21 04/27/21 17:55 19:27 00:02 WBC RBC Hgb Hct MCV MCH RDW Plt Count Lymph % (Auto) Seg Neutrophils % Seg Neuts % (Manual) Lymphocytes % (Manual) Nucleated RBC % Seg Neutrophils # Lymphocytes # (Manual) PT INR ABG pO2 ABG HCO3 ABG Base Excess ABG Hemoglobin VBG pH Oxyhemoglobin Sodium Potassium Chloride Carbon Dioxide BUN Creatinine Glucose POC Glucose 194 H 261 H Hemoglobin A1c Lactic Acid Calcium Phosphorus Magnesium Alkaline Phosphatase C-Reactive Protein Total Protein Albumin Vancomycin Trough 38.2 H Crossmatch 04/27/21 04/27/21 04/27/21 04:03 04:03 05:33 WBC RBC 3.20 L Hgb 8.1 L Hct 25.1 L MCV 78 L MCH 25 L RDW Plt Count Lymph % (Auto) Seg Neutrophils % Seg Neuts % (Manual) Lymphocytes % (Manual) Nucleated RBC % Seg Neutrophils # Lymphocytes # (Manual) PT INR ABG pO2 ABG HCO3 ABG Base Excess ABG Hemoglobin VBG pH Oxyhemoglobin Sodium Potassium Chloride 112.4 H Carbon Dioxide 12 L BUN 30 H Creatinine Glucose 330 H POC Glucose 311 H Hemoglobin A1c Lactic Acid Calcium Phosphorus Magnesium Alkaline Phosphatase C-Reactive Protein Total Protein Albumin Vancomycin Trough Crossmatch 04/27/21 04/27/21 04/27/21 09:51 13:15 16:43 WBC RBC Hgb Hct MCV MCH RDW Plt Count Lymph % (Auto) Seg Neutrophils % Seg Neuts % (Manual) Lymphocytes % (Manual) Nucleated RBC % Seg Neutrophils # Lymphocytes # (Manual) PT INR ABG pO2 ABG HCO3 ABG Base Excess ABG Hemoglobin VBG pH Oxyhemoglobin Sodium Potassium Chloride Carbon Dioxide BUN Creatinine Glucose POC Glucose 335 H 291 H 218 H Hemoglobin A1c Lactic Acid Calcium Phosphorus Magnesium Alkaline Phosphatase C-Reactive Protein Total Protein Albumin Vancomycin Trough Crossmatch 04/27/21 04/27/21 04/28/21 18:10 22:08 02:15 WBC RBC Hgb Hct MCV MCH RDW Plt Count Lymph % (Auto) Seg Neutrophils % Seg Neuts % (Manual) Lymphocytes % (Manual) Nucleated RBC % Seg Neutrophils # Lymphocytes # (Manual) PT INR ABG pO2 ABG HCO3 ABG Base Excess ABG Hemoglobin VBG pH Oxyhemoglobin Sodium Potassium Chloride Carbon Dioxide BUN Creatinine Glucose POC Glucose 177 H 136 H 152 H Hemoglobin A1c Lactic Acid Calcium Phosphorus Magnesium Alkaline Phosphatase C-Reactive Protein Total Protein Albumin Vancomycin Trough Crossmatch 04/28/21 04/28/21 04/28/21 04:41 04:41 06:03 WBC RBC 3.50 L Hgb 8.9 L Hct 27.3 L MCV 78 L MCH 26 L RDW Plt Count Lymph % (Auto) Seg Neutrophils % Seg Neuts % (Manual) Lymphocytes % (Manual) Nucleated RBC % Seg Neutrophils # Lymphocytes # (Manual) PT INR ABG pO2 ABG HCO3 ABG Base Excess ABG Hemoglobin VBG pH Oxyhemoglobin Sodium Potassium Chloride 113.5 H Carbon Dioxide 16 L BUN 37 H Creatinine Glucose 167 H POC Glucose 174 H Hemoglobin A1c Lactic Acid Calcium Phosphorus Magnesium Alkaline Phosphatase C-Reactive Protein Total Protein Albumin Vancomycin Trough Crossmatch 04/28/21 04/28/21 04/28/21 08:42 11:34 17:15 WBC RBC Hgb Hct MCV MCH RDW Plt Count Lymph % (Auto) Seg Neutrophils % Seg Neuts % (Manual) Lymphocytes % (Manual) Nucleated RBC % Seg Neutrophils # Lymphocytes # (Manual) PT INR ABG pO2 ABG HCO3 ABG Base Excess ABG Hemoglobin VBG pH Oxyhemoglobin Sodium Potassium Chloride Carbon Dioxide BUN Creatinine Glucose POC Glucose 212 H 228 H 236 H Hemoglobin A1c Lactic Acid Calcium Phosphorus Magnesium Alkaline Phosphatase C-Reactive Protein Total Protein Albumin Vancomycin Trough Crossmatch 04/28/21 04/29/21 04/29/21 21:58 01:55 04:00 WBC 11.7 H RBC 3.35 L Hgb 8.5 L Hct 26.4 L MCV MCH 25 L RDW Plt Count Lymph % (Auto) Seg Neutrophils % Seg Neuts % (Manual) Lymphocytes % (Manual) Nucleated RBC % Seg Neutrophils # Lymphocytes # (Manual) PT INR ABG pO2 ABG HCO3 ABG Base Excess ABG Hemoglobin VBG pH Oxyhemoglobin Sodium Potassium Chloride Carbon Dioxide BUN Creatinine Glucose POC Glucose 208 H 137 H Hemoglobin A1c Lactic Acid Calcium Phosphorus Magnesium Alkaline Phosphatase C-Reactive Protein Total Protein Albumin Vancomycin Trough Crossmatch 04/29/21 04/29/21 04/29/21 04:00 05:16 11:02 WBC RBC Hgb Hct MCV MCH RDW Plt Count Lymph % (Auto) Seg Neutrophils % Seg Neuts % (Manual) Lymphocytes % (Manual) Nucleated RBC % Seg Neutrophils # Lymphocytes # (Manual) PT INR ABG pO2 ABG HCO3 ABG Base Excess ABG Hemoglobin VBG pH Oxyhemoglobin Sodium 146 H Potassium Chloride 112.4 H Carbon Dioxide BUN 41 H Creatinine Glucose 115 H POC Glucose 114 H 144 H Hemoglobin A1c Lactic Acid Calcium Phosphorus Magnesium Alkaline Phosphatase C-Reactive Protein Total Protein Albumin Vancomycin Trough Crossmatch 04/30/21 04/30/21 04/30/21 00:23 04:41 04:41 WBC 14.4 H RBC 3.12 L Hgb 7.8 L Hct 24.7 L MCV MCH 25 L RDW Plt Count 138 L Lymph % (Auto) Seg Neutrophils % Seg Neuts % (Manual) Lymphocytes % (Manual) Nucleated RBC % Seg Neutrophils # Lymphocytes # (Manual) PT INR ABG pO2 ABG HCO3 ABG Base Excess ABG Hemoglobin VBG pH Oxyhemoglobin Sodium Potassium Chloride 108.0 H Carbon Dioxide BUN 42 H Creatinine Glucose 215 H POC Glucose 126 H Hemoglobin A1c Lactic Acid Calcium Phosphorus Magnesium Alkaline Phosphatase 171 H C-Reactive Protein Total Protein 6.1 L Albumin 1.4 L Vancomycin Trough Crossmatch 04/30/21 04/30/21 04/30/21 05:22 11:55 17:36 WBC RBC Hgb Hct MCV MCH RDW Plt Count Lymph % (Auto) Seg Neutrophils % Seg Neuts % (Manual) Lymphocytes % (Manual) Nucleated RBC % Seg Neutrophils # Lymphocytes # (Manual) PT INR ABG pO2 ABG HCO3 ABG Base Excess ABG Hemoglobin VBG pH Oxyhemoglobin Sodium Potassium Chloride Carbon Dioxide BUN Creatinine Glucose POC Glucose 196 H 224 H 196 H Hemoglobin A1c Lactic Acid Calcium Phosphorus Magnesium Alkaline Phosphatase C-Reactive Protein Total Protein Albumin Vancomycin Trough Crossmatch 05/01/21 05/01/21 05/01/21 04:01 05:37 05:37 WBC 16.9 H RBC 2.97 L Hgb 7.4 L Hct 23.1 L MCV 78 L MCH 25 L RDW Plt Count Lymph % (Auto) Seg Neutrophils % Seg Neuts % (Manual) Lymphocytes % (Manual) Nucleated RBC % Seg Neutrophils # Lymphocytes # (Manual) PT INR ABG pO2 ABG HCO3 ABG Base Excess ABG Hemoglobin VBG pH Oxyhemoglobin Sodium Potassium Chloride 108.4 H Carbon Dioxide BUN 41 H Creatinine Glucose 124 H POC Glucose 122 H Hemoglobin A1c Lactic Acid Calcium 8.0 L Phosphorus Magnesium Alkaline Phosphatase C-Reactive Protein Total Protein Albumin Vancomycin Trough Crossmatch 05/01/21 05/01/21 05/01/21 06:27 13:45 16:40 WBC RBC Hgb Hct MCV MCH RDW Plt Count Lymph % (Auto) Seg Neutrophils % Seg Neuts % (Manual) Lymphocytes % (Manual) Nucleated RBC % Seg Neutrophils # Lymphocytes # (Manual) PT INR ABG pO2 ABG HCO3 ABG Base Excess ABG Hemoglobin VBG pH Oxyhemoglobin Sodium Potassium Chloride Carbon Dioxide BUN Creatinine Glucose POC Glucose 126 H 231 H 266 H Hemoglobin A1c Lactic Acid Calcium Phosphorus Magnesium Alkaline Phosphatase C-Reactive Protein Total Protein Albumin Vancomycin Trough Crossmatch 05/01/21 05/02/21 05/02/21 23:16 05:43 11:27 WBC RBC Hgb Hct MCV MCH RDW Plt Count Lymph % (Auto) Seg Neutrophils % Seg Neuts % (Manual) Lymphocytes % (Manual) Nucleated RBC % Seg Neutrophils # Lymphocytes # (Manual) PT INR ABG pO2 ABG HCO3 ABG Base Excess ABG Hemoglobin VBG pH Oxyhemoglobin Sodium Potassium Chloride Carbon Dioxide BUN Creatinine Glucose POC Glucose 192 H 236 H 284 H Hemoglobin A1c Lactic Acid Calcium Phosphorus Magnesium Alkaline Phosphatase C-Reactive Protein Total Protein Albumin Vancomycin Trough Crossmatch 05/02/21 05/02/21 05/03/21 16:52 23:20 06:16 WBC RBC Hgb Hct MCV MCH RDW Plt Count Lymph % (Auto) Seg Neutrophils % Seg Neuts % (Manual) Lymphocytes % (Manual) Nucleated RBC % Seg Neutrophils # Lymphocytes # (Manual) PT INR ABG pO2 ABG HCO3 ABG Base Excess ABG Hemoglobin VBG pH Oxyhemoglobin Sodium Potassium Chloride Carbon Dioxide BUN Creatinine Glucose POC Glucose 170 H 124 H 147 H Hemoglobin A1c Lactic Acid Calcium Phosphorus Magnesium Alkaline Phosphatase C-Reactive Protein Total Protein Albumin Vancomycin Trough Crossmatch 05/03/21 05/03/21 05/03/21 07:05 07:05 11:46 WBC 14.3 H RBC 2.82 L Hgb 6.8 L Hct 22.7 L MCV MCH 24 L RDW Plt Count Lymph % (Auto) 11.8 L Seg Neutrophils % 83.3 H Seg Neuts % (Manual) Lymphocytes % (Manual) Nucleated RBC % Seg Neutrophils # 11.9 H Lymphocytes # (Manual) PT INR ABG pO2 ABG HCO3 ABG Base Excess ABG Hemoglobin VBG pH Oxyhemoglobin Sodium Potassium Chloride Carbon Dioxide BUN 39 H Creatinine Glucose 163 H POC Glucose 134 H Hemoglobin A1c Lactic Acid Calcium Phosphorus Magnesium Alkaline Phosphatase C-Reactive Protein Total Protein Albumin Vancomycin Trough Crossmatch 05/03/21 05/03/21 05/03/21 17:11 18:00 19:46 WBC RBC Hgb Hct MCV MCH RDW Plt Count Lymph % (Auto) Seg Neutrophils % Seg Neuts % (Manual) Lymphocytes % (Manual) Nucleated RBC % Seg Neutrophils # Lymphocytes # (Manual) PT INR ABG pO2 ABG HCO3 ABG Base Excess ABG Hemoglobin VBG pH Oxyhemoglobin Sodium Potassium Chloride Carbon Dioxide BUN Creatinine Glucose POC Glucose 129 H 128 H Hemoglobin A1c Lactic Acid Calcium Phosphorus Magnesium Alkaline Phosphatase C-Reactive Protein Total Protein Albumin Vancomycin Trough Crossmatch See Detail 05/03/21 05/04/21 05/04/21 22:00 08:06 11:19 WBC RBC Hgb Hct MCV MCH RDW Plt Count Lymph % (Auto) Seg Neutrophils % Seg Neuts % (Manual) Lymphocytes % (Manual) Nucleated RBC % Seg Neutrophils # Lymphocytes # (Manual) PT INR ABG pO2 ABG HCO3 ABG Base Excess ABG Hemoglobin VBG pH Oxyhemoglobin Sodium Potassium Chloride Carbon Dioxide BUN Creatinine Glucose POC Glucose 144 H 337 H 383 H Hemoglobin A1c Lactic Acid Calcium Phosphorus Magnesium Alkaline Phosphatase C-Reactive Protein Total Protein Albumin Vancomycin Trough Crossmatch 05/04/21 05/04/21 05/05/21 17:43 23:01 06:05 WBC RBC Hgb Hct MCV MCH RDW Plt Count Lymph % (Auto) Seg Neutrophils % Seg Neuts % (Manual) Lymphocytes % (Manual) Nucleated RBC % Seg Neutrophils # Lymphocytes # (Manual) PT INR ABG pO2 ABG HCO3 ABG Base Excess ABG Hemoglobin VBG pH Oxyhemoglobin Sodium Potassium Chloride Carbon Dioxide BUN Creatinine Glucose POC Glucose 316 H 320 H 395 H Hemoglobin A1c Lactic Acid Calcium Phosphorus Magnesium Alkaline Phosphatase C-Reactive Protein Total Protein Albumin Vancomycin Trough Crossmatch 05/05/21 05/05/21 05/05/21 06:15 06:15 11:38 WBC RBC 2.56 L Hgb 6.8 L 6.9 L Hct 21.4 L 22.7 L MCV MCH 27 L RDW Plt Count 442 H Lymph % (Auto) Seg Neutrophils % 76.5 H Seg Neuts % (Manual) Lymphocytes % (Manual) Nucleated RBC % Seg Neutrophils # Lymphocytes # (Manual) PT INR ABG pO2 ABG HCO3 ABG Base Excess ABG Hemoglobin VBG pH Oxyhemoglobin Sodium Potassium Chloride Carbon Dioxide BUN 52 H Creatinine Glucose 430 H POC Glucose Hemoglobin A1c Lactic Acid Calcium Phosphorus Magnesium Alkaline Phosphatase C-Reactive Protein Total Protein Albumin Vancomycin Trough Crossmatch 05/05/21 05/05/21 05/06/21 11:47 23:07 06:44 WBC RBC Hgb Hct MCV MCH RDW Plt Count Lymph % (Auto) Seg Neutrophils % Seg Neuts % (Manual) Lymphocytes % (Manual) Nucleated RBC % Seg Neutrophils # Lymphocytes # (Manual) PT INR ABG pO2 ABG HCO3 ABG Base Excess ABG Hemoglobin VBG pH Oxyhemoglobin Sodium Potassium Chloride Carbon Dioxide BUN Creatinine Glucose POC Glucose 307 H 141 H 147 H Hemoglobin A1c Lactic Acid Calcium Phosphorus Magnesium Alkaline Phosphatase C-Reactive Protein Total Protein Albumin Vancomycin Trough Crossmatch 05/06/21 05/06/21 05/06/21 07:52 12:27 17:02 WBC RBC Hgb 7.0 L Hct 21.8 L MCV MCH RDW Plt Count Lymph % (Auto) Seg Neutrophils % Seg Neuts % (Manual) Lymphocytes % (Manual) Nucleated RBC % Seg Neutrophils # Lymphocytes # (Manual) PT INR ABG pO2 ABG HCO3 ABG Base Excess ABG Hemoglobin VBG pH Oxyhemoglobin Sodium Potassium Chloride Carbon Dioxide BUN Creatinine Glucose POC Glucose 200 H 135 H Hemoglobin A1c Lactic Acid Calcium Phosphorus Magnesium Alkaline Phosphatase C-Reactive Protein Total Protein Albumin Vancomycin Trough Crossmatch 05/06/21 05/07/21 05/07/21 23:03 08:02 10:49 WBC RBC Hgb 7.4 L Hct 23.7 L MCV MCH RDW Plt Count Lymph % (Auto) Seg Neutrophils % Seg Neuts % (Manual) Lymphocytes % (Manual) Nucleated RBC % Seg Neutrophils # Lymphocytes # (Manual) PT INR ABG pO2 ABG HCO3 ABG Base Excess ABG Hemoglobin VBG pH Oxyhemoglobin Sodium Potassium Chloride Carbon Dioxide BUN Creatinine Glucose POC Glucose 150 H 255 H Hemoglobin A1c Lactic Acid Calcium Phosphorus Magnesium Alkaline Phosphatase C-Reactive Protein Total Protein Albumin Vancomycin Trough Crossmatch 05/07/21 05/07/21 05/07/21 13:27 18:03 Unknown WBC RBC 2.66 L Hgb 6.9 L Hct 22.3 L MCV MCH 26 L RDW 15.4 H Plt Count 449 H Lymph % (Auto) Seg Neutrophils % 70.7 H Seg Neuts % (Manual) Lymphocytes % (Manual) Nucleated RBC % Seg Neutrophils # Lymphocytes # (Manual) PT INR ABG pO2 ABG HCO3 ABG Base Excess ABG Hemoglobin VBG pH Oxyhemoglobin Sodium Potassium Chloride Carbon Dioxide BUN Creatinine Glucose POC Glucose 149 H 127 H Hemoglobin A1c Lactic Acid Calcium Phosphorus Magnesium Alkaline Phosphatase C-Reactive Protein Total Protein Albumin Vancomycin Trough Crossmatch 05/08/21 05/08/21 05/08/21 06:10 07:51 11:55 WBC RBC Hgb Hct MCV MCH RDW Plt Count Lymph % (Auto) Seg Neutrophils % Seg Neuts % (Manual) Lymphocytes % (Manual) Nucleated RBC % Seg Neutrophils # Lymphocytes # (Manual) PT INR ABG pO2 ABG HCO3 ABG Base Excess ABG Hemoglobin VBG pH Oxyhemoglobin Sodium Potassium Chloride Carbon Dioxide BUN Creatinine Glucose POC Glucose 190 H 194 H 197 H Hemoglobin A1c Lactic Acid Calcium Phosphorus Magnesium Alkaline Phosphatase C-Reactive Protein Total Protein Albumin Vancomycin Trough Crossmatch 05/08/21 05/08/21 05/08/21 12:25 12:25 18:35 WBC RBC 2.42 L Hgb 6.6 L Hct 20.1 L MCV MCH 27 L RDW 15.3 H Plt Count 452 H Lymph % (Auto) Seg Neutrophils % Seg Neuts % (Manual) Lymphocytes % (Manual) Nucleated RBC % Seg Neutrophils # Lymphocytes # (Manual) PT INR ABG pO2 ABG HCO3 ABG Base Excess ABG Hemoglobin VBG pH Oxyhemoglobin Sodium Potassium Chloride Carbon Dioxide BUN 27 H Creatinine Glucose 216 H POC Glucose 195 H Hemoglobin A1c Lactic Acid Calcium 7.9 L Phosphorus Magnesium Alkaline Phosphatase C-Reactive Protein Total Protein Albumin Vancomycin Trough Crossmatch 05/08/21 05/09/21 05/09/21 23:45 01:39 02:57 WBC RBC Hgb 6.6 L Hct 20.7 L MCV MCH RDW Plt Count Lymph % (Auto) Seg Neutrophils % Seg Neuts % (Manual) Lymphocytes % (Manual) Nucleated RBC % Seg Neutrophils # Lymphocytes # (Manual) PT INR ABG pO2 ABG HCO3 ABG Base Excess ABG Hemoglobin VBG pH Oxyhemoglobin Sodium Potassium Chloride Carbon Dioxide BUN Creatinine Glucose POC Glucose 286 H Hemoglobin A1c Lactic Acid Calcium Phosphorus Magnesium Alkaline Phosphatase C-Reactive Protein Total Protein Albumin Vancomycin Trough Crossmatch See Detail 05/09/21 05/09/21 05/09/21 04:51 07:34 07:34 WBC RBC 2.46 L Hgb 6.3 L Hct 20.6 L MCV MCH 26 L RDW 15.5 H Plt Count 505 H Lymph % (Auto) Seg Neutrophils % Seg Neuts % (Manual) Lymphocytes % (Manual) Nucleated RBC % Seg Neutrophils # Lymphocytes # (Manual) PT INR ABG pO2 ABG HCO3 ABG Base Excess ABG Hemoglobin VBG pH Oxyhemoglobin Sodium Potassium Chloride Carbon Dioxide BUN 24 H Creatinine Glucose 307 H POC Glucose 266 H Hemoglobin A1c Lactic Acid Calcium 7.7 L Phosphorus Magnesium Alkaline Phosphatase C-Reactive Protein Total Protein Albumin Vancomycin Trough Crossmatch 05/09/21 05/09/21 05/10/21 12:20 16:01 05:34 WBC RBC Hgb Hct MCV MCH RDW Plt Count Lymph % (Auto) Seg Neutrophils % Seg Neuts % (Manual) Lymphocytes % (Manual) Nucleated RBC % Seg Neutrophils # Lymphocytes # (Manual) PT INR ABG pO2 ABG HCO3 ABG Base Excess ABG Hemoglobin VBG pH Oxyhemoglobin Sodium Potassium Chloride Carbon Dioxide BUN Creatinine Glucose POC Glucose 249 H 166 H 203 H Hemoglobin A1c Lactic Acid Calcium Phosphorus Magnesium Alkaline Phosphatase C-Reactive Protein Total Protein Albumin Vancomycin Trough Crossmatch 05/10/21 05/10/21 05/10/21 06:30 16:11 23:11 WBC RBC 2.62 L Hgb 6.8 L Hct 21.8 L MCV MCH 26 L RDW 15.6 H Plt Count 489 H Lymph % (Auto) Seg Neutrophils % Seg Neuts % (Manual) Lymphocytes % (Manual) Nucleated RBC % Seg Neutrophils # Lymphocytes # (Manual) PT INR ABG pO2 ABG HCO3 ABG Base Excess ABG Hemoglobin VBG pH Oxyhemoglobin Sodium Potassium Chloride Carbon Dioxide BUN Creatinine Glucose POC Glucose 210 H 134 H Hemoglobin A1c Lactic Acid Calcium Phosphorus Magnesium Alkaline Phosphatase C-Reactive Protein Total Protein Albumin Vancomycin Trough Crossmatch 05/11/21 05/11/21 05/11/21 05:29 12:07 18:11 WBC RBC Hgb Hct MCV MCH RDW Plt Count Lymph % (Auto) Seg Neutrophils % Seg Neuts % (Manual) Lymphocytes % (Manual) Nucleated RBC % Seg Neutrophils # Lymphocytes # (Manual) PT INR ABG pO2 ABG HCO3 ABG Base Excess ABG Hemoglobin VBG pH Oxyhemoglobin Sodium Potassium Chloride Carbon Dioxide BUN Creatinine Glucose POC Glucose 144 H 226 H 140 H Hemoglobin A1c Lactic Acid Calcium Phosphorus Magnesium Alkaline Phosphatase C-Reactive Protein Total Protein Albumin Vancomycin Trough Crossmatch 05/11/21 05/11/21 05/12/21 23:54 Unknown 10:01 WBC RBC 2.65 L Hgb 7.0 L Hct 22.1 L MCV MCH 26 L RDW 15.9 H Plt Count 518 H Lymph % (Auto) Seg Neutrophils % Seg Neuts % (Manual) Lymphocytes % (Manual) Nucleated RBC % Seg Neutrophils # Lymphocytes # (Manual) PT INR ABG pO2 ABG HCO3 ABG Base Excess ABG Hemoglobin VBG pH Oxyhemoglobin Sodium Potassium Chloride Carbon Dioxide BUN Creatinine Glucose POC Glucose 116 H 237 H Hemoglobin A1c Lactic Acid Calcium Phosphorus Magnesium Alkaline Phosphatase C-Reactive Protein Total Protein Albumin Vancomycin Trough Crossmatch 05/12/21 05/12/21 05/13/21 13:01 17:23 05:40 WBC RBC Hgb Hct MCV MCH RDW Plt Count Lymph % (Auto) Seg Neutrophils % Seg Neuts % (Manual) Lymphocytes % (Manual) Nucleated RBC % Seg Neutrophils # Lymphocytes # (Manual) PT INR ABG pO2 ABG HCO3 ABG Base Excess ABG Hemoglobin VBG pH Oxyhemoglobin Sodium Potassium Chloride Carbon Dioxide BUN Creatinine Glucose POC Glucose 227 H 158 H 126 H Hemoglobin A1c Lactic Acid Calcium Phosphorus Magnesium Alkaline Phosphatase C-Reactive Protein Total Protein Albumin Vancomycin Trough Crossmatch 05/13/21 05/13/21 05/13/21 09:16 09:16 11:50 WBC RBC 2.49 L Hgb 6.8 L Hct 20.7 L MCV MCH 27 L RDW 15.8 H Plt Count 535 H Lymph % (Auto) Seg Neutrophils % Seg Neuts % (Manual) Lymphocytes % (Manual) Nucleated RBC % Seg Neutrophils # Lymphocytes # (Manual) PT INR ABG pO2 ABG HCO3 ABG Base Excess ABG Hemoglobin VBG pH Oxyhemoglobin Sodium 135 L Potassium Chloride 97.0 L Carbon Dioxide BUN 25 H Creatinine Glucose 197 H POC Glucose 231 H Hemoglobin A1c Lactic Acid Calcium 7.8 L Phosphorus Magnesium Alkaline Phosphatase C-Reactive Protein Total Protein Albumin Vancomycin Trough Crossmatch 05/13/21 05/13/2121 13:20 16:59 05:00 WBC 11.4 H RBC 2.80 L Hgb 7.7 L Hct 23.3 L MCV MCH 27 L RDW 16.0 H Plt Count 507 H Lymph % (Auto) Seg Neutrophils % Seg Neuts % (Manual) Lymphocytes % (Manual) Nucleated RBC % Seg Neutrophils # Lymphocytes # (Manual) PT INR ABG pO2 ABG HCO3 ABG Base Excess ABG Hemoglobin VBG pH Oxyhemoglobin Sodium Potassium Chloride Carbon Dioxide BUN Creatinine Glucose POC Glucose 130 H Hemoglobin A1c Lactic Acid Calcium Phosphorus Magnesium Alkaline Phosphatase C-Reactive Protein Total Protein Albumin Vancomycin Trough Crossmatch See Detail 05/14/21 05/14/21 05/14/21 05:00 05:34 11:59 WBC RBC Hgb Hct MCV MCH RDW Plt Count Lymph % (Auto) Seg Neutrophils % Seg Neuts % (Manual) Lymphocytes % (Manual) Nucleated RBC % Seg Neutrophils # Lymphocytes # (Manual) PT INR ABG pO2 ABG HCO3 ABG Base Excess ABG Hemoglobin VBG pH Oxyhemoglobin Sodium 135 L Potassium Chloride Carbon Dioxide BUN 24 H Creatinine Glucose 134 H POC Glucose 128 H 179 H Hemoglobin A1c Lactic Acid Calcium 8.0 L Phosphorus Magnesium Alkaline Phosphatase C-Reactive Protein Total Protein Albumin Vancomycin Trough Crossmatch 05/14/21 05/15/21 05/15/21 23:48 04:51 04:58 WBC 12.1 H RBC 2.80 L Hgb 7.2 L Hct 23.4 L MCV MCH 26 L RDW 16.1 H Plt Count 537 H Lymph % (Auto) Seg Neutrophils % Seg Neuts % (Manual) Lymphocytes % (Manual) Nucleated RBC % Seg Neutrophils # Lymphocytes # (Manual) PT INR ABG pO2 ABG HCO3 ABG Base Excess ABG Hemoglobin VBG pH Oxyhemoglobin Sodium Potassium Chloride Carbon Dioxide BUN Creatinine Glucose POC Glucose 171 H 220 H Hemoglobin A1c Lactic Acid Calcium Phosphorus Magnesium Alkaline Phosphatase C-Reactive Protein Total Protein Albumin Vancomycin Trough Crossmatch 05/15/21 05/15/21 05/15/21 05:53 09:02 10:48 WBC RBC Hgb Hct MCV MCH RDW Plt Count Lymph % (Auto) Seg Neutrophils % Seg Neuts % (Manual) Lymphocytes % (Manual) Nucleated RBC % Seg Neutrophils # Lymphocytes # (Manual) PT INR ABG pO2 ABG HCO3 ABG Base Excess ABG Hemoglobin VBG pH Oxyhemoglobin Sodium Potassium Chloride Carbon Dioxide BUN Creatinine Glucose POC Glucose 222 H 196 H 179 H Hemoglobin A1c Lactic Acid Calcium Phosphorus Magnesium Alkaline Phosphatase C-Reactive Protein Total Protein Albumin Vancomycin Trough Crossmatch 05/15/21 05/15/21 05/15/21 13:04 15:46 16:20 WBC RBC Hgb Hct MCV MCH RDW Plt Count Lymph % (Auto) Seg Neutrophils % Seg Neuts % (Manual) Lymphocytes % (Manual) Nucleated RBC % Seg Neutrophils # Lymphocytes # (Manual) PT 15.8 H INR 1.14 H ABG pO2 ABG HCO3 ABG Base Excess ABG Hemoglobin VBG pH Oxyhemoglobin Sodium Potassium Chloride Carbon Dioxide BUN Creatinine Glucose POC Glucose 49 L 122 H Hemoglobin A1c Lactic Acid Calcium Phosphorus Magnesium Alkaline Phosphatase C-Reactive Protein Total Protein Albumin Vancomycin Trough Crossmatch 05/15/21 05/16/21 05/16/21 22:50 00:01 05:49 WBC RBC Hgb Hct MCV MCH RDW Plt Count Lymph % (Auto) Seg Neutrophils % Seg Neuts % (Manual) Lymphocytes % (Manual) Nucleated RBC % Seg Neutrophils # Lymphocytes # (Manual) PT INR ABG pO2 ABG HCO3 ABG Base Excess ABG Hemoglobin VBG pH Oxyhemoglobin Sodium Potassium Chloride Carbon Dioxide BUN Creatinine Glucose POC Glucose 63 L 143 H 144 H Hemoglobin A1c Lactic Acid Calcium Phosphorus Magnesium Alkaline Phosphatase C-Reactive Protein Total Protein Albumin Vancomycin Trough Crossmatch 05/16/21 05/16/21 05/16/21 10:09 10:09 12:59 WBC 12.1 H RBC 3.03 L Hgb 7.6 L Hct 25.8 L MCV MCH 25 L RDW 16.5 H Plt Count 544 H Lymph % (Auto) Seg Neutrophils % Seg Neuts % (Manual) Lymphocytes % (Manual) Nucleated RBC % Seg Neutrophils # Lymphocytes # (Manual) PT INR ABG pO2 ABG HCO3 ABG Base Excess ABG Hemoglobin VBG pH Oxyhemoglobin Sodium 136 L Potassium Chloride Carbon Dioxide BUN 19 H Creatinine Glucose 174 H POC Glucose 174 H Hemoglobin A1c Lactic Acid Calcium 8.1 L Phosphorus Magnesium Alkaline Phosphatase C-Reactive Protein Total Protein Albumin Vancomycin Trough Crossmatch 05/16/21 05/16/21 05/17/21 16:19 21:07 05:39 WBC RBC Hgb Hct MCV MCH RDW Plt Count Lymph % (Auto) Seg Neutrophils % Seg Neuts % (Manual) Lymphocytes % (Manual) Nucleated RBC % Seg Neutrophils # Lymphocytes # (Manual) PT INR ABG pO2 ABG HCO3 ABG Base Excess ABG Hemoglobin VBG pH Oxyhemoglobin Sodium Potassium Chloride Carbon Dioxide BUN Creatinine Glucose POC Glucose 196 H 155 H 150 H Hemoglobin A1c Lactic Acid Calcium Phosphorus Magnesium Alkaline Phosphatase C-Reactive Protein Total Protein Albumin Vancomycin Trough Crossmatch 05/17/21 05/17/21 05/17/21 12:21 16:59 21:35 WBC RBC Hgb Hct MCV MCH RDW Plt Count Lymph % (Auto) Seg Neutrophils % Seg Neuts % (Manual) Lymphocytes % (Manual) Nucleated RBC % Seg Neutrophils # Lymphocytes # (Manual) PT INR ABG pO2 ABG HCO3 ABG Base Excess ABG Hemoglobin VBG pH Oxyhemoglobin Sodium Potassium Chloride Carbon Dioxide BUN Creatinine Glucose POC Glucose 159 H 169 H 157 H Hemoglobin A1c Lactic Acid Calcium Phosphorus Magnesium Alkaline Phosphatase C-Reactive Protein Total Protein Albumin Vancomycin Trough Crossmatch 05/18/21 05/18/21 05/18/21 05:10 05:10 05:26 WBC RBC 2.94 L Hgb 7.7 L Hct 24.5 L MCV MCH 26 L RDW 16.3 H Plt Count 523 H Lymph % (Auto) Seg Neutrophils % Seg Neuts % (Manual) Lymphocytes % (Manual) Nucleated RBC % Seg Neutrophils # Lymphocytes # (Manual) PT INR ABG pO2 ABG HCO3 ABG Base Excess ABG Hemoglobin VBG pH Oxyhemoglobin Sodium Potassium Chloride Carbon Dioxide BUN Creatinine Glucose 235 H POC Glucose 209 H Hemoglobin A1c Lactic Acid Calcium 7.9 L Phosphorus Magnesium Alkaline Phosphatase C-Reactive Protein Total Protein Albumin Vancomycin Trough Crossmatch 05/18/21 05/18/21 05/18/21 07:53 10:46 15:41 WBC RBC Hgb Hct MCV MCH RDW Plt Count Lymph % (Auto) Seg Neutrophils % Seg Neuts % (Manual) Lymphocytes % (Manual) Nucleated RBC % Seg Neutrophils # Lymphocytes # (Manual) PT INR ABG pO2 ABG HCO3 ABG Base Excess ABG Hemoglobin VBG pH Oxyhemoglobin Sodium Potassium Chloride Carbon Dioxide BUN Creatinine Glucose POC Glucose 174 H 222 H 206 H Hemoglobin A1c Lactic Acid Calcium Phosphorus Magnesium Alkaline Phosphatase C-Reactive Protein Total Protein Albumin Vancomycin Trough Crossmatch 05/19/21 05/19/21 05/19/21 00:03 05:29 07:39 WBC RBC Hgb Hct MCV MCH RDW Plt Count Lymph % (Auto) Seg Neutrophils % Seg Neuts % (Manual) Lymphocytes % (Manual) Nucleated RBC % Seg Neutrophils # Lymphocytes # (Manual) PT INR ABG pO2 ABG HCO3 ABG Base Excess ABG Hemoglobin VBG pH Oxyhemoglobin Sodium Potassium Chloride Carbon Dioxide BUN Creatinine Glucose POC Glucose 113 H 129 H 158 H Hemoglobin A1c Lactic Acid Calcium Phosphorus Magnesium Alkaline Phosphatase C-Reactive Protein Total Protein Albumin Vancomycin Trough Crossmatch 05/19/21 05/19/21 10:36 15:45 WBC RBC Hgb Hct MCV MCH RDW Plt Count Lymph % (Auto) Seg Neutrophils % Seg Neuts % (Manual) Lymphocytes % (Manual) Nucleated RBC % Seg Neutrophils # Lymphocytes # (Manual) PT INR ABG pO2 ABG HCO3 ABG Base Excess ABG Hemoglobin VBG pH Oxyhemoglobin Sodium Potassium Chloride Carbon Dioxide BUN Creatinine Glucose POC Glucose 199 H 156 H Hemoglobin A1c Lactic Acid Calcium Phosphorus Magnesium Alkaline Phosphatase C-Reactive Protein Total Protein Albumin Vancomycin Trough Crossmatch Allied health notes reviewed: nursing
[2021-05-19] MEDS: SENNOSIDES 8.6 MG TAB PO SCH (22:32)
[2021-05-20] MEDS: INSULIN LISPRO 100 UNIT/ML SUB-Q SCH ×4 (00:49→19:04)
[2021-05-20] MEDS: FREE WATER PO SCH ×6 (00:51→20:00)
[2021-05-20] MEDS: HEPARIN 5,000 UNIT/1 ML VIAL SUB-Q SCH ×3 (06:00→22:42)
[2021-05-20] MEDS: METOCLOPRAMIDE 10 MG/10 ML ORAL LIQD FEEDTUBE SCH ×4 (08:33→22:42)
--- NOTE | 2021-05-20 08:43 | Progress Note ---
Assessment and Plan Assessment and plan: This is a 51-year-old female with DM, noncompliance, obesity, arthritis and right knee surgery admitted for DKA, oropharyngeal dysphagia on tube feeding Speech therapist following, patient has septic arthritis and severe sepsis on long-term antibiotics Rocephin total 6 weeks., Anemia with 6.8 hemoglobin, received 1 unit PRBC yesterday, this morning hemoglobin 6.8, will recheck Hb and transfuse additional PRBC if needed -Anemia; Hb 6.8-6.9--7.7 Received total 4 units of PRBC transfusion Status post colonoscopy Closely monitor H&H and transfuse as needed --Oropharyngeal dysphagia; tolerating oral nutrition Patient is on tube feeding till recently Tolerating oral diet, awaiting placement --Septic arthritis; knee; Ortho is planning knee/synovial debridement 04/30/2021;s/p arthrocentesis 05/03/2021 s/p Incision and drainage followed by arthroscopic exam of the right knee Continue antibiotics per ID total 6 weeks -- Sepsis, group B Streptococcus bacteremia, h/o right septic arthritis -Infectious disease consulted, appreciate recommendations -ABX therapy per ID: Ceftriaxone 2 g every 24 hours -Right knee x-ray shows large joint effusion s/p arthrocentesis Positive synovial fluid cultures, ID recommended total 6 weeks of Rocephin --Acute metabolic encephalopathy (improved significantly) Patient is more alert and awake, supportive care -Echocardiogram shows mildly dilated right heart chamber, mild to moderate TR, moderate pulmonary hypertension, RVSP 50-55, LVEF 45-50 --Respiratory: Acute hypoxic respiratory failure Nasal cannula oxygen, intermittent BiPAP Home O2 evaluation --Severe protein calorie malnutrition --Hypoalbuminemia, albumin 1.7 Dietitian/mid teacher following Continue tube feeding, nutrition supplements Supportive care -- Hypernatremia (resolved) Closely monitor electrolytes --Leukocytosis/trending down Secondary to sepsis, continue antibiotics and supportive care Closely monitor --S/p DKA, h/o uncontrolled DM/present on admission -Hemoglobin A1c 18.3 Blood sugars moderate control -Avoid hypoglycemia Accu-Chek sliding scale coverage tube feeding Glucerna --DVT prophylaxis Subcu Lovenox --Full CODE STATUS Discharge planning issues Patient is able to eat Physical therapy Placement issues are Outpatient antibiotic therapy To discuss with case management DC planning per case management Long-term antibiotics 6 weeks PICC line per ID PT recommends subacute Patient will be discharged when medically stable Subjective Date of service: 05/19/2021 Principal diagnosis: HAGMA; DKA; AMS; Obesity; Osteoarthritis; Hypercalcemia Interval history: Brief history and daily hospital course This is a 51-year-old female with DM, OA, medication noncompliance, obesity who presented to emergency department on 04/23 with complaints of weakness, elevated blood glucose levels, nausea, polydipsia, polyuria and diminished oral intake ov er the past week with worsening symptoms over the past 2 days. Patient acknowledges noncompliance with oral antihyperglycemic therapy. Patient was seen and evaluated in the emergency department and found to have lab work consistent with diabetic ketoacidosis, metabolic encephalopathy, metabolic ac idosis and volume depletion. Patient was admitted to the hospital service to the ICU initiated DKA protocol with CCM consult. 04/24/21- Patient remains on DKA protocol. Still very lethargic this am, following simple commands. Rt. knee wound and swelling noted, and nursing staff also reported thick, white vaginal discharge. C/f sepsis, blood culture ordered, this am UA noted. Will start patient on PO difflucan for possible yeast infection, pending culture data. Anion GAP is still 18 this am, will continue DKA protocol for now. Continue to monitor electrolytes, serial BMP ordered. 04/25/21- Patient appears to be in distress this am, now on 3L NC. Lactic acidosis worsen overnight, X1L LR bolus adminstered. Ordered placed for stat ABGs. Blood culture growing GPC 3/4 bottles, patient remains afebrile with no leukocytosis. IV abx was escalated, ID consulted. Ortho consult is still pending, order placed for XR of the Rt. knee. Given patient worsen condition and high anio, gap, will continue insulin gtt for now. Low K and mg was repleted. Continue serial BMP,mg, and phosp 04/26/21- Patient appears more alert and awake this am, talkative, and following commands. Remains on DKA protocol, gap is closedX2, will transition patient to SSI and basal insulin and initiate enteral nutrition. Patient remains afebrile overnight, continue IV Abx per ID. 04/27/21- TASHA overnight. Patient mentation continue to improve. Worsening hyperglycemia, patient is tolerating TF. 70/30 added BID and SSI was adjusted to high dose Q4hrs. D/W [facility] patient is stable for transfer to [facility] 04/28/21- Patient continue to improve. Remains drowsy this am, however, easily arousable. Now on 4L NC, still requiring Q4hrs NT suction due to increased secretions and weak cough. Continue to wean O2 supplement as tolerated, F/U CXR in the am. Continue IV Abx per ID. 04/29: Patient is awake and alert with strong cough and able to clear own airway. Ortho consult for right knee aspiration pending. 04/30: No acute events reported overnight, patient will be transferred to the floor. MR of right knee ordered. 05/01; patient had arthrocentesis 05/02; ID recommended total 6 weeks of Rocephin, case management to assist with antibiotics 05/02; patient is febrile, sepsis and positive cultures, currently on Rocephin, ID following 05/03; patient remains on tube feeding, speech therapist has not cleared for oral nutrition, aspiration risk Septic arthritis awaiting synovial debridement knee joint 05/04; blood sugars are uncontrolled Lantus insulin was stopped due to surgical procedure yesterday, Resumed Novolin 70/30, closely monitor and adjust the dose as needed 05/05; patient received 1 unit of PRBC yesterday, a.m. hemoglobin remains 6.8 after transfusion, recheck H&H, transfuse additional PRBC Patient remains on tube feedings, speech therapy following, on long-term antibiotics for her septic knee total 6 weeks 05/06/2021 Patient remains on tube feedings Speech therapy 6 weeks of antibiotics for septic arthritis If patient can swallow and tube feedings are discontinued--- patient can have IV antibiotics as outpatient Not ready for discharge 05/07: Patient seen and examined, remains quit ill, NG tube still in place hemoglobin is still 6.9 despite second unit transfusion done. Hard sure where t his is coming from unsure why the patient is not able to eat. Will obtain MRI of the head to further evaluate and also obtain stool for occult blood to further elicit. In the meantime this is a painless delay in discharge and once that is rectified placement is already being pursued by case management. Dressing in the knee is in place. 05/08/20[address] still in place 05/09/2021 NG tube still in place 05/10/2021 Patient more alert and oriented NG tube still in place 05/11/2021 Patient is more alert and oriented NG tube is taken out 05/12/2021 Patient is able to eat Patient is alert and oriented Patient is ready for discharge and outpatient IV antibiotics for 4 to 5 weeks. 05/13/21 Anemia with Hgb 6.8. Transfuse 1 Unit PRBC 05/14/21 Patient transfused 1 Unit, now Hgb 7.7 05/15/21 Patient started on Pureed diet yesterday. Still has tube feed going Hgb 7.2 Will check stool occult blood Consult GI for anemia with hgb 6s. Stool occult blood neg 05/16/21 EGD done today:gastritis,erythema Colonoscopy postponed to tomorrow Labs pending today 05/17 patient with sepsis, right knee septic arthritis, metabolic encephalopathy. She had anemia s/p PRBC transfused EGD yesterday revealed gastritis For colonoscopy today Resume pureed diet after colonoscopy For Ceftriaxone iv till 06/14/21 ID also recommends re-eval by Ortho I have entered reconsult for Thursday since Dr. buchanan is out sick and Dr. Valentin comes back on Thursday05/18/21; continue current management Patient will be reevaluated by orthopedic surgeon on Thursday on 05/20/2021 Disposition per Ortho 05/19/2021; long-term antibiotics for 6 weeks per ID PICC line, PT recommended subacute rehab, DC planning per case management 05/20/2021; Ortho procedures 04/30/2021; right knee synovial fluid cultures group B streptococcus 05/03/2021 right knee OR cultures no growth next 05/03/2021 arthrocentesis status post IND followed by arthroscopic examination of right knee on 05/03/2021 entered the joint proper with return of copious amount of purulent material and significant cartilage degeneration from repeated infections ID recommended 6 weeks of IV antibiotics due to recurrent chronic possibility of osteomyelitis and extensive cartilage degeneration Patient is currently on IV Ancef while inpatient upon discharge IV Rocephin ending 06/14/2021 Case management has arranged the medications and PICC line is already placed History Interval history: I seen and examined the patient at the bedside Patient chart and medications reviewed Patient feels better receiving antibiotics Pending Ortho evaluation Hospitalist Physical - Constitutional Vitals: Temp Pulse Resp BP Pulse Ox 98.5 F 95 H 18 155/76 96 05/20/21 05:22 05/20/21 05:22 05/20/21 05:22 05/20/21 05:22 05/20/21 05:22 General appearance: Present: no acute distress, well-nourished, obese - EENT Eyes: Present: PERRL, EOM intact - Neck Neck: Present: supple, normal ROM - Respiratory Respiratory effort: normal Respiratory: bilateral: diminished, negative: rales, rhonchi, wheezing - Cardiovascular Rhythm: regular Heart Sounds: Present: S1 & S2 - Extremities Extremities: no ischemia, No edema - Abdominal General gastrointestinal: soft, non-tender, non-distended, normal bowel sounds - Integumentary Integumentary: Present: clear, warm - Psychiatric Psychiatric: appropriate mood/affect, cooperative - Neurologic Neurologic: CNII-XII intact, moves all extremities HEART Score - HEART Score Troponin: Troponin T < 0.010 ng/mL (0.00-0.029) 04/23/21 10:33 Results - Labs CBC & Chem 7: 05/18/21 05:10 05/18/21 05:10 Labs: Laboratory Last Values WBC 10.8 K/mm3 (4.5-11.0) 05/18/21 05:10 RBC 2.94 M/mm3 (3.65-5.03) L 05/18/21 05:10 Hgb 7.7 gm/dl (10.1-14.3) L 05/18/21 05:10 Hct 24.5 % (30.3-42.9) L 05/18/21 05:10 MCV 83 fl (79-97) 05/18/21 05:10 MCH 26 pg (28-32) L 05/18/21 05:10 MCHC 31 % (30-34) 05/18/21 05:10 RDW 16.3 % (13.2-15.2) H 05/18/21 05:10 Plt Count 523 K/mm3 (140-440) H 05/18/21 05:10 Lymph % (Auto) 22.8 % (13.4-35.0) 05/07/21 Unknown Mckenzie % (Auto) 4.4 % (0.0-7.3) 05/07/21 Unknown Eos % (Auto) 1.2 % (0.0-4.3) 05/07/21 Unknown Baso % (Auto) 0.9 % (0.0-1.8) 05/07/21 Unknown Lymph # (Auto) 1.7 K/mm3 (1.2-5.4) 05/07/21 Unknown Mckenzie # (Auto) 0.3 K/mm3 (0.0-0.8) 05/07/21 Unknown Eos # (Auto) 0.1 K/mm3 (0.0-0.4) 05/07/21 Unknown Baso # (Auto) 0.1 K/mm3 (0.0-0.1) 05/07/21 Unknown Add Manual Diff Complete 04/25/21 08:10 Total Counted 100 04/25/21 08:10 Seg Neutrophils % 70.7 % (40.0-70.0) H 05/07/21 Unknown Seg Neuts % (Manual) 33.0 % (40.0-70.0) L 04/25/21 08:10 Band Neutrophils % 23.0 % 04/25/21 08:10 Lymphocytes % (Manual) 19.0 % (13.4-35.0) 04/25/21 08:10 Reactive Lymphs % (Man) 1.0 % 04/25/21 08:10 Monocytes % (Manual) 1.0 % (0.0-7.3) 04/25/21 08:10 Eosinophils % (Manual) 1.0 % (0.0-4.3) 04/25/21 08:10 Metamyelocytes % 3.0 % 04/23/21 10:33 Myelocytes % 22.0 % 04/25/21 08:10 Nucleated RBC % Not Reportable 04/25/21 08:10 Seg Neutrophils # 5.4 K/mm3 (1.8-7.7) 05/07/21 Unknown Seg Neutrophils # Man 1.9 K/mm3 (1.8-7.7) 04/25/21 08:10 Band Neutrophils # 1.3 K/mm3 04/25/21 08:10 Lymphocytes # (Manual) 1.1 K/mm3 (1.2-5.4) L 04/25/21 08:10 Abs React Lymphs (Man) 0.1 K/mm3 04/25/21 08:10 Monocytes # (Manual) 0.1 K/mm3 (0.0-0.8) 04/25/21 08:10 Eosinophils # (Manual) 0.1 K/mm3 (0.0-0.4) 04/25/21 08:10 Basophils # (Manual) 0.0 K/mm3 (0.0-0.1) 04/25/21 08:10 Metamyelocytes # 0.0 K/mm3 04/25/21 08:10 Myelocytes # 1.3 K/mm3 04/25/21 08:10 Promyelocytes # 0.0 K/mm3 04/25/21 08:10 Blast Cells # 0.0 K/mm3 04/25/21 08:10 WBC Morphology Not Reportable 04/25/21 08:10 Hypersegmented Neuts Not Reportable 04/25/21 08:10 Hyposegmented Neuts Not Reportable 04/25/21 08:10 Hypogranular Neuts Not Reportable 04/25/21 08:10 Smudge Cells Not Reportable 04/25/21 08:10 Toxic Granulation Not Reportable 04/25/21 08:10 Toxic Vacuolation Not Reportable 04/25/21 08:10 Dohle Bodies Not Reportable 04/25/21 08:10 Pelger-Huet Anomaly Not Reportable 04/25/21 08:10 Thierry Rods Not Reportable 04/25/21 08:10 Platelet Estimate Consistent w auto 04/25/21 08:10 Clumped Platelets Not Reportable 04/25/21 08:10 Plt Clumps, EDTA Not Reportable 04/25/21 08:10 Large Platelets Not Reportable 04/25/21 08:10 Giant Platelets Not Reportable 04/25/21 08:10 Platelet Satelliting Not Reportable 04/25/21 08:10 Plt Morphology Comment Not Reportable 04/25/21 08:10 RBC Morphology Not Reportable 04/25/21 08:10 Dimorphic RBCs Not Reportable 04/25/21 08:10 Polychromasia Not Reportable 04/25/21 08:10 Hypochromasia 1+ 04/25/21 08:10 Poikilocytosis Not Reportable 04/25/21 08:10 Anisocytosis Not Reportable 04/25/21 08:10 Microcytosis Not Reportable 04/25/21 08:10 Macrocytosis Not Reportable 04/25/21 08:10 Spherocytes Not Reportable 04/25/21 08:10 Pappenheimer Bodies Not Reportable 04/25/21 08:10 Sickle Cells Not Reportable 04/25/21 08:10 Target Cells Not Reportable 04/25/21 08:10 Tear Drop Cells Not Reportable 04/25/21 08:10 Ovalocytes Not Reportable 04/25/21 08:10 Helmet Cells Not Reportable 04/25/21 08:10 [place] Bodies Not Reportable 04/25/21 08:10 [place] Rings Not Reportable 04/25/21 08:10 [place] Cells Not Reportable 04/25/21 08:10 Bite Cells Not Reportable 04/25/21 08:10 Crenated Cell Not Reportable 04/25/21 08:10 Elliptocytes Not Reportable 04/25/21 08:10 Acanthocytes (Spur) Not Reportable 04/25/21 08:10 Rouleaux Not Reportable 04/25/21 08:10 Hemoglobin C Crystals Not Reportable 04/25/21 08:10 Schistocytes Not Reportable 04/25/21 08:10 Malaria parasites Not Reportable 04/25/21 08:10 Juan Bodies Not Reportable 04/25/21 08:10 Hem Pathologist Commnt No 04/25/21 08:10 PT 15.8 Sec. (12.2-14.9) H 05/15/21 13:04 INR 1.14 (0.87-1.13) H 05/15/21 13:04 ABG pH 7.426 pH Units (7.350-7.450) 04/25/21 11:20 ABG pCO2 25.3 mm Hg 04/25/21 11:20 ABG pO2 73.2 mm Hg (80.0-90.0) L 04/25/21 11:20 ABG HCO3 16.2 mmol/L (20.0-26.0) L 04/25/21 11:20 ABG O2 Saturation 96.9 % (95.0-99.0) 04/25/21 11:20 ABG O2 Content 11.6 (0.0-44) 04/25/21 11:20 ABG Base Excess -7.1 mmol/L (-2.0-3.0) L 04/25/21 11:20 ABG Hemoglobin 8.7 gm/dl (12.0-16.0) L 04/25/21 11:20 ABG Carboxyhemoglobin 1.6 % (0.0-5.0) 04/25/21 11:20 ABG Methemoglobin 0.6 % (0.0-1.5) 04/25/21 11:20 VBG pH 7.180 (7.320-7.420) L* 04/23/21 10:33 Oxyhemoglobin 94.8 % (95.0-99.0) L 04/25/21 11:20 FiO2 28 % 04/25/21 11:20 Sodium 137 mmol/L (137-145) 05/18/21 05:10 Potassium 3.8 mmol/L (3.6-5.0) 05/18/21 05:10 Chloride 100.7 mmol/L (98-107) 05/18/21 05:10 Carbon Dioxide 24 mmol/L (22-30) 05/18/21 05:10 Anion Gap 16 mmol/L 05/18/21 05:10 BUN 11 mg/dL (7-17) 05/18/21 05:10 Creatinine 0.8 mg/dL (0.6-1.2) 05/18/21 05:10 Estimated GFR > 60 ml/min 05/18/21 05:10 BUN/Creatinine Ratio 14 % 05/18/21 05:10 Glucose 235 mg/dL (65-100) H 05/18/21 05:10 POC Glucose 115 mg/dL (70-105) H 05/20/21 05:40 Hemoglobin A1c 18.3 % (4-6) H 04/24/21 04:16 Lactic Acid 1.70 mmol/L (0.7-2.0) 04/26/21 05:02 Uric Acid 7.5 mg/dL (3.5-7.6) 04/24/21 12:14 Calcium 7.9 mg/dL (8.4-10.2) L 05/18/21 05:10 Phosphorus 4.50 mg/dL (2.5-4.5) 04/30/21 04:41 Magnesium 2.10 mg/dL (1.7-2.3) 05/03/21 07:05 Total Bilirubin 0.50 mg/dL (0.1-1.2) 04/30/21 04:41 AST 12 units/L (5-40) 04/30/21 04:41 ALT 7 units/L (7-56) 04/30/21 04:41 Alkaline Phosphatase 171 units/L (35-129) H 04/30/21 04:41 Ammonia 37.0 umol/L (25-60) 04/23/21 10:33 Total Creatine Kinase 83 units/L (30-135) 04/23/21 10:33 Troponin T < 0.010 ng/mL (0.00-0.029) 04/23/21 10:33 C-Reactive Protein 24.30 mg/dL (0.00-1.30) H 04/24/21 18:24 Total Protein 6.1 g/dL (6.3-8.2) L 04/30/21 04:41 Albumin 1.4 g/dL (3.9-5) L 04/30/21 04:41 Albumin/Globulin Ratio 0.3 % 04/30/21 04:41 Procalcitonin 21.10 ng/mL (<0.15) 04/24/21 12:14 TSH 1.400 mlU/mL (0.270-4.200) 04/23/21 10:33 Urine Color Katie (Yellow) 04/27/21 16:16 Urine Turbidity Cloudy (Clear) 04/27/21 16:16 Urine pH 5.0 (5.0-7.0) 04/27/21 16:16 Ur Specific [place] 1.014 (1.003-1.030) 04/27/21 16:16 Urine Protein <15 mg/dl mg/dL (Negative) 04/27/21 16:16 Urine Glucose (UA) >=500 mg/dL (Negative) 04/27/21 16:16 Urine Ketones Neg mg/dL (Negative) 04/27/21 16:16 Urine Blood Neg (Negative) 04/27/21 16:16 Urine Nitrite Neg (Negative) 04/27/21 16:16 Urine Bilirubin Neg (Negative) 04/27/21 16:16 Urine Urobilinogen 2.0 mg/dL (<2.0) 04/27/21 16:16 Ur Leukocyte Esterase Neg (Negative) 04/27/21 16:16 Urine WBC (Auto) 1.0 /HPF (0.0-6.0) 04/27/21 16:16 Urine RBC (Auto) 1.0 /HPF (0.0-6.0) 04/27/21 16:16 U Epithel Cells (Auto) < 1.0 /HPF (0-13.0) 04/24/21 08:40 Urine Bacteria (Auto) 1+ /HPF (Negative) 04/27/21 16:16 Amorphous Crystals Few 04/27/21 16:16 Urine Yeast (Budding) 3+ /HPF 04/27/21 16:16 Vancomycin Trough 38.2 ug/mL (5.0-20.0) H 04/26/21 19:27 Coronavirus (PCR) Negative (Negative) 04/25/21 Unknown Blood Type A POSITIVE 05/13/21 13:20 Antibody Screen Negative 05/13/21 13:20 Crossmatch See Detail 05/13/21 13:20 Sanchez/IV: Voiding Method Indwelling Catheter Active Medications - Current Medications Current Medications: Generic Name Dose Route Start Last Admin Trade Name Freq PRN Reason Stop Dose Admin Acetaminophen 650 mg 04/23/21 11:54 05/13/21 17:29 Acetaminophen 325 Mg Tab PO 650 mg Q6H PRN Administration Pain MILD(1-3)/Fever >100.5/SMITH Albuterol 2.5 mg 05/02/21 12:56 05/07/21 04:22 Albuterol 2.5 Mg/3 Ml Nebu IH 2.5 mg Q4HRT PRN Administration Shortness Of Breath Lipase/Protease/Amylase 1 each 05/06/21 16:05 Lipase 10,500/Protease 25,000/Amylase 43,750 (Units) Dr Rodriguez FEEDTUBE PRN PRN For Clogged Feeding Tube Calcium Carbonate/Glycine 500 mg 05/18/21 22:00 05/19/21 22:31 Calcium Carbonate 500 Mg Tab Chew PO 500 mg BID AMIRA Administration Dextrose 50 ml 04/26/21 14:00 05/15/21 16:00 Dextrose 50% In Water (25gm) 50 Ml Syringe IV 50 ml Q30MIN PRN Administration Hypoglycemia Protocol Heparin Sodium (Porcine) 5,000 unit 05/17/21 22:00 05/20/21 06:00 Heparin 5,000 Unit/1 Ml Vial SUB-Q 5,000 unit Q8HR AMIRA Administration Hydralazine HCl 10 mg 05/18/21 00:49 05/19/21 14:05 Hydralazine 20 Mg/1 Ml Inj IV 10 mg Q6HR PRN Administration Increased Blood Pressure Hydromorphone HCl 0.5 mg 04/23/21 11:54 05/19/21 19:43 Hydromorphone 1 Mg/1 Ml Inj IV 0.5 mg Q23H PRN Administration Pain , Severe (7-10) Cefazolin Sodium 2 gm/ Sodium 100 mls @ 200 mls/hr 05/02/21 14:00 05/20/21 02:25 Chloride IV 06/14/21 20:29 200 mls/hr Q6H AMIRA Administration Protocol Sodium Chloride 1,000 mls @ 50 mls/hr 05/16/21 09:00 05/16/21 13:47 Nacl 0.9% 1000 Ml IV 50 mls/hr DIRECT AMIRA Administration Insulin Human Isoph/Insulin Regular 10 unit 05/16/21 08:00 05/19/21 16:03 Insulin Nph/Regular 70/30 Inj SUB-Q 10 unit BIDDIAB AMIRA Administration Insulin Human Lispro 0 unit 04/29/21 12:00 05/20/21 06:04 Insulin Lispro 100 Unit/Ml SUB-Q Not Given Q6HR [facility] Protocol Lansoprazole 30 mg 05/16/21 11:00 05/19/21 10:18 Lansoprazole 30 Mg Solutab FEEDTUBE 30 mg QDAY AMIRA Administration Metoclopramide HCl 5 mg 05/08/21 08:00 05/19/21 22:31 Metoclopramide 10 Mg/10 Ml Oral Liqd FEEDTUBE 5 mg ACHS AMIRA Administration Morphine Sulfate 2 mg 05/03/21 18:59 05/15/21 13:43 Morphine 2 Mg/1 Ml Inj IV 2 mg Q4H PRN Administration Pain, Moderate (4-6) Morphine Sulfate 4 mg 05/03/21 18:59 05/16/21 18:07 Morphine 4 Mg/1 Ml Inj IV 4 mg Q4H PRN Administration Pain , Severe (7-10) Ondansetron HCl 4 mg 05/19/21 02:00 05/19/21 19:37 Ondansetron 4 Mg/2 Ml Inj IV 4 mg Q6HR PRN Administration Nausea And Vomiting Oxycodone/Acetaminophen 1 tab 04/23/21 11:54 05/15/21 21:26 Oxycodone /Acetaminophen 5-325mg Tab PO 1 tab Q16H PRN Administration Pain, Moderate (4-6) Senna 17.2 mg 04/25/21 22:00 05/19/21 22:32 Sennosides 8.6 Mg Tab PO Not Given QHS AMIRA Simple Syrup 15 ml 05/06/21 16:05 Simple Syrup 15 Ml FEEDTUBE PRN PRN Hypoglycemia Simple Syrup 30 ml 05/06/21 16:05 Simple Syrup 15 Ml FEEDTUBE PRN PRN Hypoglycemia Sodium Bicarbonate 325 mg 05/06/21 16:05 Sodium Bicarbonate 325 Mg Tab FEEDTUBE PRN PRN For Clogged Feeding Tube Sodium Chloride 10 ml 04/23/21 22:00 05/19/21 22:32 Sodium Chloride 0.9% 10 Ml Flush Syringe IV 10 ml BID AMIRA Administration Sodium Chloride 10 ml 04/23/21 11:54 04/24/21 11:15 Sodium Chloride 0.9% 10 Ml Flush Syringe IV 10 ml PRN PRN Administration LINE FLUSH Nutrition/Malnutrition Assess - Dietary Evaluation Nutrition/Malnutrition Findings: Nutrition Notes Start: 04/26/21 09:53 Freq: Status: Active Protocol: Document 05/13/21 12:20 JAIMIE (Rec: 05/13/21 12:38 JAIMIE [id number]) Nutrition Notes Current Diet TF-Vital AF 1.2 Daniel @ 65 ml/hr (since D 05/06). Height 5 ft 8 in Weight 158.6 kg [place] Body Weight (kg) 63.63 BMI 53.1 Weight change and time frame No body weight change reported . Weight Status Morbidly Obese Subjective/Other Information RD consult for routine F/U on TF tolerance. No body weight change reported . TF well tolerated, continue as is. Percent of energy/protein needs met: Prescribed TF-Vital AF 1.2 Daniel @ 65 ml/hr provides for energy/protein needs (1,804 Kcal/77 g) 107% Kcal; 84% AA, during LOS. Nutrition Intervention Nutrition Support: Continue Vital AF 1.2 @ 65 ml/ hr with 100 ml water flush Q 4h. Kcal 1,860 Protein (gm) 116 Carbohydrates (gm) 171 Fat (gm) 84 Fluid (mL) 1,257 Fiber (gm) 8 % RDI: 107% Kcal; 84% AA. Goal #1 Provide at least 75% of energy /protein needs through Enteral Feeding during LOS. Goal #2 Maintain body weight within +/ -3% of admission body weight during LOS. Goal #3 Reach and maintain acceptable chemistry lab values during LOS. Follow-Up By: 05/20/21 Additional Comments Continue monitoring TF tolerance, Hydration, and BM.
[2021-05-20] MEDS: INSULIN NPH/REGULAR 70/30 INJ SUB-Q SCH ×2 (10:10→17:05)
[2021-05-20] MEDS: CALCIUM CARBONATE 500 MG TAB CHEW PO SCH ×2 (10:12→22:43)
[2021-05-20] MEDS: LANSOPRAZOLE 30 MG SOLUTAB FEEDTUBE SCH (10:12)
--- NOTE | 2021-05-20 15:03 | Progress Note ---
Assessment and Plan Cultures: 04/24/2021 Blood culture: GBS Blood culture 04/26/2021: No growth 04/30/2021 R knee synovial fluid culture: Group B Streptococcus 05/03/2021 right knee OR culture: No growth A/P: 51 yo F with DM2, HTN, morbid obesity presented with sepsis #Acute sepsis: secondary to group B streptococcus bacteremia, source is R knee. #Group B streptococcus bacteremia secondary to R knee septic arthritis: Reports a history of previous right knee septic arthritis and has been treated with antibiotics at least twice in the past. X-ray shows large joint effusion. TTE without any evidence of valvular vegetations/endocarditis. Arthrocentesis culture also positive. Status post I&D followed by arthroscopic examination of right knee on 05/03/2021, as per operative note, "entered the joint proper with return of copious amounts of purulent material" and "significant cartilage degeneration from repeated infections". Will need a longer ~6 weeks course of IV abx after surgery due to her history of recurrence / chronicity and possibility of osteomyelitis, extensive cartilage degeneration. #DM2: tight glycemic control for best outcomes. #Anemia: EGD with gastritis, pending colonoscopy. Recs: -fevers appear to be improving though white count remains mildly elevated. -continue high dose IV Ancef while inpatient, upon discharge, continue IV Ceftriaxone ending 06/14/2021, CM orders have already been placed. PICC in place Infectious disease will sign off. Please call for questions. Candelario Chawla MD [facility] ([facility]) O: [phone] F: [phone] Subjective Date of service: 05/20/21 Principal diagnosis: HAGMA; DKA; AMS; Obesity; Osteoarthritis; Hypercalcemia Interval history: Afebrile, no acute changes. White count is normal. Objective - Exam Narrative Exam: Narrative Exam: Physical Exam: Constitutional: Alert, cooperative. Head, Ears, Nose: Normocephalic, atraumatic. External ears, nose normal Eyes: Conjunctivae/corneas clear. No icterus. No ptosis. Neck: Supple, no meningeal signs Cardiovascular: S1, S2 + Respiratory: Good air entry, clear to auscultation bilaterally GI: Soft, non-tender; bowel sounds normal. No peritoneal signs Musculoskeletal: Right knee with dressing +, swelling and tenderness + Skin: No rash or abscess Hem/Lymphatic: No palpable cervical or supraclavicular nodes. Psych: Mood ok. Affect normal Neurological: Awake, alert, oriented. No gross abnormality - Constitutional Vitals: Vital Signs Temp Pulse Resp BP Pulse Ox 98.5 F 95 H 18 155/76 96 05/20/21 05:22 05/20/21 05:22 05/20/21 05:22 05/20/21 05:22 05/20/21 05:22 Temperature -Last 24 Hours Temperature 98.5 F Temperature 98.6 F Temperature 99.9 F - Labs CBC & Chem 7: 05/18/21 05:10 05/18/21 05:10 Labs: Abnormal lab results 05/19/21 05/20/21 05/20/21 Range/Units 15:45 00:12 05:40 POC Glucose 156 H 115 H 115 H (70-105) mg/dL
[2021-05-20] MEDS: HYDROmorphone 1 MG/1 ML INJ IV PRN (17:55)
[2021-05-20] MEDS: SENNOSIDES 8.6 MG TAB PO SCH (22:43)
[2021-05-20] MEDS: MORPHINE 2 MG/1 ML INJ IV PRN (22:53)
--- NOTE | 2021-05-20 23:28 | Progress Note ---
Assessment and Plan Assessment and plan: This is a 51-year-old female with DM, noncompliance, obesity, arthritis and right knee surgery admitted for DKA, oropharyngeal dysphagia on tube feeding Speech therapist following, patient has septic arthritis and severe sepsis on long-term antibiotics Rocephin total 6 weeks., Anemia with 6.8 hemoglobin, received 1 unit PRBC yesterday, this morning hemoglobin 6.8, will recheck Hb and transfuse additional PRBC if needed -Anemia; Hb 6.8-6.9--7.7 Received total 4 units of PRBC transfusion Status post colonoscopy Closely monitor H&H and transfuse as needed --Oropharyngeal dysphagia; tolerating oral nutrition Patient is on tube feeding till recently Tolerating oral diet, awaiting placement --Septic arthritis; knee; Ortho is planning knee/synovial debridement 04/30/2021;s/p arthrocentesis 05/03/2021 s/p Incision and drainage followed by arthroscopic exam of the right knee Continue antibiotics per ID total 6 weeks -- Sepsis, group B Streptococcus bacteremia, h/o right septic arthritis -Infectious disease consulted, appreciate recommendations -ABX therapy per ID: Ceftriaxone 2 g every 24 hours -Right knee x-ray shows large joint effusion s/p arthrocentesis Positive synovial fluid cultures, ID recommended total 6 weeks of Rocephin --Acute metabolic encephalopathy (improved significantly) Patient is more alert and awake, supportive care -Echocardiogram shows mildly dilated right heart chamber, mild to moderate TR, moderate pulmonary hypertension, RVSP 50-55, LVEF 45-50 --Respiratory: Acute hypoxic respiratory failure Nasal cannula oxygen, intermittent BiPAP Home O2 evaluation --Severe protein calorie malnutrition --Hypoalbuminemia, albumin 1.7 Dietitian/state epidemiologist following Continue tube feeding, nutrition supplements Supportive care -- Hypernatremia (resolved) Closely monitor electrolytes --Leukocytosis/trending down Secondary to sepsis, continue antibiotics and supportive care Closely monitor --S/p DKA, h/o uncontrolled DM/present on admission -Hemoglobin A1c 18.3 Blood sugars moderate control -Avoid hypoglycemia Accu-Chek sliding scale coverage tube feeding Glucerna --DVT prophylaxis Subcu Lovenox --Full CODE STATUS Discharge planning issues Patient is able to eat Physical therapy Placement issues are Outpatient antibiotic therapy To discuss with case management DC planning per case management Long-term antibiotics 6 weeks PICC line per ID PT recommends subacute Patient will be discharged when medically stable Subjective Date of service: 05/19/2021 Principal diagnosis: HAGMA; DKA; AMS; Obesity; Osteoarthritis; Hypercalcemia Interval history: Brief history and daily hospital course This is a 51-year-old female with DM, OA, medication noncompliance, obesity who presented to emergency department on 04/23 with complaints of weakness, elevated blood glucose levels, nausea, polydipsia, polyuria and diminished oral intake ov er the past week with worsening symptoms over the past 2 days. Patient acknowledges noncompliance with oral antihyperglycemic therapy. Patient was seen and evaluated in the emergency department and found to have lab work consistent with diabetic ketoacidosis, metabolic encephalopathy, metabolic ac idosis and volume depletion. Patient was admitted to the hospital service to the ICU initiated DKA protocol with CCM consult. 04/24/21- Patient remains on DKA protocol. Still very lethargic this am, following simple commands. Rt. knee wound and swelling noted, and nursing staff also reported thick, white vaginal discharge. C/f sepsis, blood culture ordered, this am UA noted. Will start patient on PO difflucan for possible yeast infection, pending culture data. Anion GAP is still 18 this am, will continue DKA protocol for now. Continue to monitor electrolytes, serial BMP ordered. 04/25/21- Patient appears to be in distress this am, now on 3L NC. Lactic acidosis worsen overnight, X1L LR bolus adminstered. Ordered placed for stat ABGs. Blood culture growing GPC 3/4 bottles, patient remains afebrile with no leukocytosis. IV abx was escalated, ID consulted. Ortho consult is still pending, order placed for XR of the Rt. knee. Given patient worsen condition and high anio, gap, will continue insulin gtt for now. Low K and mg was repleted. Continue serial BMP,mg, and phosp 04/26/21- Patient appears more alert and awake this am, talkative, and following commands. Remains on DKA protocol, gap is closedX2, will transition patient to SSI and basal insulin and initiate enteral nutrition. Patient remains afebrile overnight, continue IV Abx per ID. 04/27/21- TASHA overnight. Patient mentation continue to improve. Worsening hyperglycemia, patient is tolerating TF. 70/30 added BID and SSI was adjusted to high dose Q4hrs. D/W [facility] patient is stable for transfer to [facility] 04/28/21- Patient continue to improve. Remains drowsy this am, however, easily arousable. Now on 4L NC, still requiring Q4hrs NT suction due to increased secretions and weak cough. Continue to wean O2 supplement as tolerated, F/U CXR in the am. Continue IV Abx per ID. 04/29: Patient is awake and alert with strong cough and able to clear own airway. Ortho consult for right knee aspiration pending. 04/30: No acute events reported overnight, patient will be transferred to the floor. MR of right knee ordered. 05/01; patient had arthrocentesis 05/02; ID recommended total 6 weeks of Rocephin, case management to assist with antibiotics 05/02; patient is febrile, sepsis and positive cultures, currently on Rocephin, ID following 05/03; patient remains on tube feeding, speech therapist has not cleared for oral nutrition, aspiration risk Septic arthritis awaiting synovial debridement knee joint 05/04; blood sugars are uncontrolled Lantus insulin was stopped due to surgical procedure yesterday, Resumed Novolin 70/30, closely monitor and adjust the dose as needed 05/05; patient received 1 unit of PRBC yesterday, a.m. hemoglobin remains 6.8 after transfusion, recheck H&H, transfuse additional PRBC Patient remains on tube feedings, speech therapy following, on long-term antibiotics for her septic knee total 6 weeks 05/06/2021 Patient remains on tube feedings, Speech therapy 6 weeks of antibiotics for septic arthritis If patient can swallow and tube feedings are discontinued--- patient can have IV antibiotics as outpatient Not ready for discharge 05/07: Patient seen and examined, remains quit ill, NG tube still in place hemoglobin is still 6.9 despite second unit transfusion done. Hard sure where this is coming from unsure why the patient is not able to eat. Will obtain MRI of the head to further evaluate and also obtain stool for occult blood to further elicit. In the meantime this is a painless delay in discharge and once that is rectified placement is already being pursued by case management. Dressing in the knee is in place. 05/08/2021;NG tube still in place 05/09/2021;NG tube still in place 05/10/2021;Patient more alert and oriented, NG tube still in place 05/11/2021 Patient is more alert and oriented NG tube is taken out 05/12/2021 Patient is able to eat Patient is alert and oriented Patient is ready for discharge and outpatient IV antibiotics for 4 to 5 weeks. 05/13/21 Anemia with Hgb 6.8. Transfuse 1 Unit PRBC 05/14/21 Patient transfused 1 Unit, now Hgb 7.7 05/15/21 Patient started on Pureed diet yesterday. Still has tube feed going Hgb 7.2 Will check stool occult blood Consult GI for anemia with hgb 6s. Stool occult blood neg 05/16/21 EGD done today:gastritis,erythema Colonoscopy postponed to tomorrow Labs pending today 05/17 patient with sepsis, right knee septic arthritis, metabolic encephalopathy. She had anemia s/p PRBC transfused EGD yesterday revealed gastritis For colonoscopy today Resume pureed diet after colonoscopy For Ceftriaxone iv till 06/14/21 ID also recommends re-eval by Ortho I have entered reconsult for Thursday since Dr. buchanan is out sick and Dr. Castelan comes back on Thursday05/18/21; continue current management Patient will be reevaluated by orthopedic surgeon on Thursday on 05/20/2021 Disposition per Ortho 05/19/2021; long-term antibiotics for 6 weeks per ID PICC line, PT recommended subacute rehab, DC planning per case management 05/20/2021; Ortho procedures 04/30/2021; right knee synovial fluid cultures group B streptococcus 05/03/2021 right knee OR cultures no growth next 05/03/2021 arthrocentesis status post IND followed by arthroscopic examination of right knee on 05/03/2021 entered the joint proper with return of copious amount of purulent material and significant cartilage degeneration from repeated infections ID recommended 6 weeks of IV antibiotics due to recurrent chronic possibility of osteomyelitis and extensive cartilage degeneration Patient is currently on IV Ancef while inpatient upon discharge IV Rocephin ending 06/14/2021 Case management has arranged the medications and PICC line is already placed 05/21/2021; patient is medically stable for discharge pending clearance from orthopedic surgeon Dr. CASTELAN Disposition; discharge when cleared by orthopedic surgeon Dr. Castelan History Interval history: I have seen and examined the patient at the bedside Patient's chart and medications reviewed Patient feels better anxious to go home Awaiting orthopedic surgeons clearance for discharge I discussed and requested Ortho Dr Castelan evaluated and cleared for discharge Hospitalist Physical - Constitutional Vitals: Temp Pulse Resp BP Pulse Ox 98.1 F 103 H 17 158/79 98 05/20/21 22:20 05/20/21 22:20 05/20/21 22:53 05/20/21 22:20 05/20/21 23:10 General appearance: Present: no acute distress, well-nourished, obese - EENT Eyes: Present: PERRL, EOM intact - Neck Neck: Present: supple, normal ROM - Respiratory Respiratory effort: normal Respiratory: bilateral: diminished, negative: rales, rhonchi, wheezing - Cardiovascular Rhythm: regular Heart Sounds: Present: S1 & S2 - Extremities Extremities: no ischemia, No edema - Abdominal General gastrointestinal: soft, non-tender, non-distended, normal bowel sounds - Integumentary Integumentary: Present: clear, warm - Psychiatric Psychiatric: appropriate mood/affect, cooperative - Neurologic Neurologic: moves all extremities HEART Score - HEART Score Troponin: Troponin T < 0.010 ng/mL (0.00-0.029) 04/23/21 10:33 Results - Labs CBC & Chem 7: 05/18/21 05:10 05/18/21 05:10 Labs: Laboratory Last Values WBC 10.8 K/mm3 (4.5-11.0) 05/18/21 05:10 RBC 2.94 M/mm3 (3.65-5.03) L 05/18/21 05:10 Hgb 7.7 gm/dl (10.1-14.3) L 05/18/21 05:10 Hct 24.5 % (30.3-42.9) L 05/18/21 05:10 MCV 83 fl (79-97) 05/18/21 05:10 MCH 26 pg (28-32) L 05/18/21 05:10 MCHC 31 % (30-34) 05/18/21 05:10 RDW 16.3 % (13.2-15.2) H 05/18/21 05:10 Plt Count 523 K/mm3 (140-440) H 05/18/21 05:10 Lymph % (Auto) 22.8 % (13.4-35.0) 05/07/21 Unknown [place] % (Auto) 4.4 % (0.0-7.3) 05/07/21 Unknown Eos % (Auto) 1.2 % (0.0-4.3) 05/07/21 Unknown Baso % (Auto) 0.9 % (0.0-1.8) 05/07/21 Unknown Lymph # (Auto) 1.7 K/mm3 (1.2-5.4) 05/07/21 Unknown [place] # (Auto) 0.3 K/mm3 (0.0-0.8) 05/07/21 Unknown Eos # (Auto) 0.1 K/mm3 (0.0-0.4) 05/07/21 Unknown Baso # (Auto) 0.1 K/mm3 (0.0-0.1) 05/07/21 Unknown Add Manual Diff Complete 04/25/21 08:10 Total Counted 100 04/25/21 08:10 Seg Neutrophils % 70.7 % (40.0-70.0) H 05/07/21 Unknown Seg Neuts % (Manual) 33.0 % (40.0-70.0) L 04/25/21 08:10 Band Neutrophils % 23.0 % 04/25/21 08:10 Lymphocytes % (Manual) 19.0 % (13.4-35.0) 04/25/21 08:10 Reactive Lymphs % (Man) 1.0 % 04/25/21 08:10 Monocytes % (Manual) 1.0 % (0.0-7.3) 04/25/21 08:10 Eosinophils % (Manual) 1.0 % (0.0-4.3) 04/25/21 08:10 Metamyelocytes % 3.0 % 04/23/21 10:33 Myelocytes % 22.0 % 04/25/21 08:10 Nucleated RBC % Not Reportable 04/25/21 08:10 Seg Neutrophils # 5.4 K/mm3 (1.8-7.7) 05/07/21 Unknown Seg Neutrophils # Man 1.9 K/mm3 (1.8-7.7) 04/25/21 08:10 Band Neutrophils # 1.3 K/mm3 04/25/21 08:10 Lymphocytes # (Manual) 1.1 K/mm3 (1.2-5.4) L 04/25/21 08:10 Abs React Lymphs (Man) 0.1 K/mm3 04/25/21 08:10 Monocytes # (Manual) 0.1 K/mm3 (0.0-0.8) 04/25/21 08:10 Eosinophils # (Manual) 0.1 K/mm3 (0.0-0.4) 04/25/21 08:10 Basophils # (Manual) 0.0 K/mm3 (0.0-0.1) 04/25/21 08:10 Metamyelocytes # 0.0 K/mm3 04/25/21 08:10 Myelocytes # 1.3 K/mm3 04/25/21 08:10 Promyelocytes # 0.0 K/mm3 04/25/21 08:10 Blast Cells # 0.0 K/mm3 04/25/21 08:10 WBC Morphology Not Reportable 04/25/21 08:10 Hypersegmented Neuts Not Reportable 04/25/21 08:10 Hyposegmented Neuts Not Reportable 04/25/21 08:10 Hypogranular Neuts Not Reportable 04/25/21 08:10 Smudge Cells Not Reportable 04/25/21 08:10 Toxic Granulation Not Reportable 04/25/21 08:10 Toxic Vacuolation Not Reportable 04/25/21 08:10 Dohle Bodies Not Reportable 04/25/21 08:10 Pelger-Huet Anomaly Not Reportable 04/25/21 08:10 Thierry Rods Not Reportable 04/25/21 08:10 Platelet Estimate Consistent w auto 04/25/21 08:10 Clumped Platelets Not Reportable 04/25/21 08:10 Plt Clumps, EDTA Not Reportable 04/25/21 08:10 Large Platelets Not Reportable 04/25/21 08:10 Giant Platelets Not Reportable 04/25/21 08:10 Platelet Satelliting Not Reportable 04/25/21 08:10 Plt Morphology Comment Not Reportable 04/25/21 08:10 RBC Morphology Not Reportable 04/25/21 08:10 Dimorphic RBCs Not Reportable 04/25/21 08:10 Polychromasia Not Reportable 04/25/21 08:10 Hypochromasia 1+ 04/25/21 08:10 Poikilocytosis Not Reportable 04/25/21 08:10 Anisocytosis Not Reportable 04/25/21 08:10 Microcytosis Not Reportable 04/25/21 08:10 Macrocytosis Not Reportable 04/25/21 08:10 Spherocytes Not Reportable 04/25/21 08:10 Pappenheimer Bodies Not Reportable 04/25/21 08:10 Sickle Cells Not Reportable 04/25/21 08:10 Target Cells Not Reportable 04/25/21 08:10 Tear Drop Cells Not Reportable 04/25/21 08:10 Ovalocytes Not Reportable 04/25/21 08:10 Helmet Cells Not Reportable 04/25/21 08:10 [place] Bodies Not Reportable 04/25/21 08:10 Almo Rings Not Reportable 04/25/21 08:10 [place] Cells Not Reportable 04/25/21 08:10 Bite Cells Not Reportable 04/25/21 08:10 Crenated Cell Not Reportable 04/25/21 08:10 Elliptocytes Not Reportable 04/25/21 08:10 Acanthocytes (Spur) Not Reportable 04/25/21 08:10 Rouleaux Not Reportable 04/25/21 08:10 Hemoglobin C Crystals Not Reportable 04/25/21 08:10 Schistocytes Not Reportable 04/25/21 08:10 Malaria parasites Not Reportable 04/25/21 08:10 Juan Bodies Not Reportable 04/25/21 08:10 Hem Pathologist Commnt No 04/25/21 08:10 PT 15.8 Sec. (12.2-14.9) H 05/15/21 13:04 INR 1.14 (0.87-1.13) H 05/15/21 13:04 ABG pH 7.426 pH Units (7.350-7.450) 04/25/21 11:20 ABG pCO2 25.3 mm Hg 04/25/21 11:20 ABG pO2 73.2 mm Hg (80.0-90.0) L 04/25/21 11:20 ABG HCO3 16.2 mmol/L (20.0-26.0) L 04/25/21 11:20 ABG O2 Saturation 96.9 % (95.0-99.0) 04/25/21 11:20 ABG O2 Content 11.6 (0.0-44) 04/25/21 11:20 ABG Base Excess -7.1 mmol/L (-2.0-3.0) L 04/25/21 11:20 ABG Hemoglobin 8.7 gm/dl (12.0-16.0) L 04/25/21 11:20 ABG Carboxyhemoglobin 1.6 % (0.0-5.0) 04/25/21 11:20 ABG Methemoglobin 0.6 % (0.0-1.5) 04/25/21 11:20 VBG pH 7.180 (7.320-7.420) L* 04/23/21 10:33 Oxyhemoglobin 94.8 % (95.0-99.0) L 04/25/21 11:20 FiO2 28 % 04/25/21 11:20 Sodium 137 mmol/L (137-145) 05/18/21 05:10 Potassium 3.8 mmol/L (3.6-5.0) 05/18/21 05:10 Chloride 100.7 mmol/L (98-107) 05/18/21 05:10 Carbon Dioxide 24 mmol/L (22-30) 05/18/21 05:10 Anion Gap 16 mmol/L 05/18/21 05:10 BUN 11 mg/dL (7-17) 05/18/21 05:10 Creatinine 0.8 mg/dL (0.6-1.2) 05/18/21 05:10 Estimated GFR > 60 ml/min 05/18/21 05:10 BUN/Creatinine Ratio 14 % 05/18/21 05:10 Glucose 235 mg/dL (65-100) H 05/18/21 05:10 POC Glucose 166 mg/dL (70-105) H 05/20/21 21:20 Hemoglobin A1c 18.3 % (4-6) H 04/24/21 04:16 Lactic Acid 1.70 mmol/L (0.7-2.0) 04/26/21 05:02 Uric Acid 7.5 mg/dL (3.5-7.6) 04/24/21 12:14 Calcium 7.9 mg/dL (8.4-10.2) L 05/18/21 05:10 Phosphorus 4.50 mg/dL (2.5-4.5) 04/30/21 04:41 Magnesium 2.10 mg/dL (1.7-2.3) 05/03/21 07:05 Total Bilirubin 0.50 mg/dL (0.1-1.2) 04/30/21 04:41 AST 12 units/L (5-40) 04/30/21 04:41 ALT 7 units/L (7-56) 04/30/21 04:41 Alkaline Phosphatase 171 units/L (35-129) H 04/30/21 04:41 Ammonia 37.0 umol/L (25-60) 04/23/21 10:33 Total Creatine Kinase 83 units/L (30-135) 04/23/21 10:33 Troponin T < 0.010 ng/mL (0.00-0.029) 04/23/21 10:33 C-Reactive Protein 24.30 mg/dL (0.00-1.30) H 04/24/21 18:24 Total Protein 6.1 g/dL (6.3-8.2) L 04/30/21 04:41 Albumin 1.4 g/dL (3.9-5) L 04/30/21 04:41 Albumin/Globulin Ratio 0.3 % 04/30/21 04:41 Procalcitonin 21.10 ng/mL (<0.15) 04/24/21 12:14 TSH 1.400 mlU/mL (0.270-4.200) 04/23/21 10:33 Urine Color Katie (Yellow) 04/27/21 16:16 Urine Turbidity Cloudy (Clear) 04/27/21 16:16 Urine pH 5.0 (5.0-7.0) 04/27/21 16:16 Ur Specific [place] 1.014 (1.003-1.030) 04/27/21 16:16 Urine Protein <15 mg/dl mg/dL (Negative) 04/27/21 16:16 Urine Glucose (UA) >=500 mg/dL (Negative) 04/27/21 16:16 Urine Ketones Neg mg/dL (Negative) 04/27/21 16:16 Urine Blood Neg (Negative) 04/27/21 16:16 Urine Nitrite Neg (Negative) 04/27/21 16:16 Urine Bilirubin Neg (Negative) 04/27/21 16:16 Urine Urobilinogen 2.0 mg/dL (<2.0) 04/27/21 16:16 Ur Leukocyte Esterase Neg (Negative) 04/27/21 16:16 Urine WBC (Auto) 1.0 /HPF (0.0-6.0) 04/27/21 16:16 Urine RBC (Auto) 1.0 /HPF (0.0-6.0) 04/27/21 16:16 U Epithel Cells (Auto) < 1.0 /HPF (0-13.0) 04/24/21 08:40 Urine Bacteria (Auto) 1+ /HPF (Negative) 04/27/21 16:16 Amorphous Crystals Few 04/27/21 16:16 Urine Yeast (Budding) 3+ /HPF 04/27/21 16:16 Vancomycin Trough 38.2 ug/mL (5.0-20.0) H 04/26/21 19:27 Coronavirus (PCR) Negative (Negative) 04/25/21 Unknown Blood Type A POSITIVE 05/13/21 13:20 Antibody Screen Negative 05/13/21 13:20 Crossmatch See Detail 05/13/21 13:20 Sanchez/IV: Voiding Method Indwelling Catheter Active Medications - Current Medications Current Medications: Generic Name Dose Route Start Last Admin Trade Name Freq PRN Reason Stop Dose Admin Acetaminophen 650 mg 04/23/21 11:54 05/13/21 17:29 Acetaminophen 325 Mg Tab PO 650 mg Q6H PRN Administration Pain MILD(1-3)/Fever >100.5/SMITH Albuterol 2.5 mg 05/02/21 12:56 05/07/21 04:22 Albuterol 2.5 Mg/3 Ml Nebu IH 2.5 mg Q4HRT PRN Administration Shortness Of Breath Lipase/Protease/Amylase 1 each 05/06/21 16:05 Lipase 10,500/Protease 25,000/Amylase 43,750 (Units) Dr Rodriguez FEEDTUBE PRN PRN For Clogged Feeding Tube Calcium Carbonate/Glycine 500 mg 05/18/21 22:00 05/20/21 22:43 Calcium Carbonate 500 Mg Tab Chew PO 500 mg BID AMIRA Administration Dextrose 50 ml 04/26/21 14:00 05/15/21 16:00 Dextrose 50% In Water (25gm) 50 Ml Syringe IV 50 ml Q30MIN PRN Administration Hypoglycemia Protocol Heparin Sodium (Porcine) 5,000 unit 05/17/21 22:00 05/20/21 22:42 Heparin 5,000 Unit/1 Ml Vial SUB-Q 5,000 unit Q8HR AMIRA Administration Hydralazine HCl 10 mg 05/18/21 00:49 05/19/21 14:05 Hydralazine 20 Mg/1 Ml Inj IV 10 mg Q6HR PRN Administration Increased Blood Pressure Hydromorphone HCl 0.5 mg 04/23/21 11:54 05/20/21 17:55 Hydromorphone 1 Mg/1 Ml Inj IV 0.5 mg Q23H PRN Administration Pain , Severe (7-10) Cefazolin Sodium 2 gm/ Sodium 100 mls @ 200 mls/hr 05/02/21 14:00 05/20/21 22:53 Chloride IV 06/14/21 20:29 200 mls/hr Q6H AMIRA Administration Protocol Sodium Chloride 1,000 mls @ 50 mls/hr 05/16/21 09:00 05/16/21 13:47 Nacl 0.9% 1000 Ml IV 50 mls/hr DIRECT AMIRA Administration Insulin Human Isoph/Insulin Regular 10 unit 05/16/21 08:00 05/20/21 17:05 Insulin Nph/Regular 70/30 Inj SUB-Q 10 unit BIDDIAB AMIRA Administration Insulin Human Lispro 0 unit 04/29/21 12:00 05/20/21 19:04 Insulin Lispro 100 Unit/Ml SUB-Q Not Given Q6HR AMIRA Protocol Lansoprazole 30 mg 05/16/21 11:00 05/20/21 10:12 Lansoprazole 30 Mg Solutab FEEDTUBE 30 mg QDAY AMIRA Administration Metoclopramide HCl 5 mg 05/08/21 08:00 05/20/21 22:42 Metoclopramide 10 Mg/10 Ml Oral Liqd FEEDTUBE 5 mg ACHS AMIRA Administration Morphine Sulfate 2 mg 05/03/21 18:59 05/20/21 22:53 Morphine 2 Mg/1 Ml Inj IV 2 mg Q4H PRN Administration Pain, Moderate (4-6) Morphine Sulfate 4 mg 05/03/21 18:59 05/16/21 18:07 Morphine 4 Mg/1 Ml Inj IV 4 mg Q4H PRN Administration Pain , Severe (7-10) Ondansetron HCl 4 mg 05/19/21 02:00 05/19/21 19:37 Ondansetron 4 Mg/2 Ml Inj IV 4 mg Q6HR PRN Administration Nausea And Vomiting Oxycodone/Acetaminophen 1 tab 04/23/21 11:54 05/15/21 21:26 Oxycodone /Acetaminophen 5-325mg Tab PO 1 tab Q16H PRN Administration Pain, Moderate (4-6) Senna 17.2 mg 04/25/21 22:00 05/20/21 22:43 Sennosides 8.6 Mg Tab PO Not Given QHS AMIRA Simple Syrup 15 ml 05/06/21 16:05 Simple Syrup 15 Ml FEEDTUBE PRN PRN Hypoglycemia Simple Syrup 30 ml 05/06/21 16:05 Simple Syrup 15 Ml FEEDTUBE PRN PRN Hypoglycemia Sodium Bicarbonate 325 mg 05/06/21 16:05 Sodium Bicarbonate 325 Mg Tab FEEDTUBE PRN PRN For Clogged Feeding Tube Sodium Chloride 10 ml 04/23/21 22:00 05/20/21 22:44 Sodium Chloride 0.9% 10 Ml Flush Syringe IV 10 ml BID AMIRA Administration Sodium Chloride 10 ml 04/23/21 11:54 04/24/21 11:15 Sodium Chloride 0.9% 10 Ml Flush Syringe IV 10 ml PRN PRN Administration LINE FLUSH Nutrition/Malnutrition Assess - Dietary Evaluation Nutrition/Malnutrition Findings: Nutrition Notes Start: 04/26/21 09:53 Freq: Status: Active Protocol: Document 05/20/21 12:45 JAIMIE (Rec: 05/20/21 12:51 JAIMIE [id number]) Nutrition Notes Initial or Follow up Reassessment Current Diagnosis Diabetes,Sepsis,Respiratory Failure,Malnutrition Other Pertinent Diagnosis R-Knee septic arthritis, Leukocytosis. Current Diet Pureed Diet (since L 05/17). Labs/Tests 05/18: Glu 235. Pertinent Medications 05/20: Insulin, others nutritionally unremarkable. Height 5 ft 8 in Weight 150.2 kg [place] Body Weight (kg) 63.63 BMI 50.3 Weight change and time frame 8.4 Kg body weight loss in 1 week reported. First change sisnce admission 3 weeks ago. Weight Status Morbidly Obese Subjective/Other Information RD consult for routine F/U on TF tolerance. 8.4 Kg body weight loss in 1 week reported. 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 Pureed Diet started on 05/17, well tolerated, according to Progress notes. Pt's PO intake of meals is Fair (50-74%), according to ADL notes. Dietary supplements ordered. F/U on Food/ONS tolerance and %PO intake of meals. Percent of energy/protein needs met: Prescribed Pureed Diet provides for energy/protein needs (1,804 Kcal/77 g) during LOS; additionally, Dietary Supplements will compensate for possible Poor PO intake of meals with 660 Kcal and 30 g of protein. . Burn Absent Trauma Absent GI Symptoms None Difficulty In Chewing Food Allergy No Skin Integrity/Comment R-Knee area of concern. 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 As Evidenced by Signs and Symptoms MD diagnosis of severe protein calorie malnutrition. Is patient on ventilator? No Is Patient Ambulatory and/or Out of Bed No REE-([facility]-confined to bed) 2607.600 Kcal/Kg value to use for calculation 12 Approximate Energy Requirements Using 1802 kcal/Kg Calculation Used for Recommendations Kcal/kg Additional Notes Protein: 1.2-1.5 g/Kg; 128-161 g/day. Fluids: 1 ml/Kcal, or as per MD. Nutrition Intervention Change Diet Order: Continue Pureed Diet. Add Supplement/Snack (indicate name/kcal 8 fl oz Glucerna; TID. /protein ) Provides kCal: 660 Provides Protein (gm) 30 Goal #1 Compensate, through dietary supplementation, for possible poor PO intake of meals during LOS. Follow-Up By: 05/27/21 Additional Comments Continue monitoring food tolerance, %PO intake of meals , and BM.
[2021-05-21] MEDS: FREE WATER PO SCH ×6 (00:20→23:27)
[2021-05-21] MEDS: INSULIN LISPRO 100 UNIT/ML SUB-Q SCH ×4 (05:52→17:21)
[2021-05-21] MEDS: HEPARIN 5,000 UNIT/1 ML VIAL SUB-Q SCH ×3 (06:24→22:14)
[2021-05-21] MEDS: INSULIN NPH/REGULAR 70/30 INJ SUB-Q SCH ×2 (08:00→17:18)
[2021-05-21] MEDS: METOCLOPRAMIDE 10 MG/10 ML ORAL LIQD FEEDTUBE SCH ×4 (09:31→22:17)
[2021-05-21] MEDS: CALCIUM CARBONATE 500 MG TAB CHEW PO SCH ×2 (09:32→22:13)
[2021-05-21] MEDS: LANSOPRAZOLE 30 MG SOLUTAB FEEDTUBE SCH (09:33)
--- NOTE | 2021-05-21 12:33 | Discharge Summary ---
<ARVIN GARCIA - Last Filed: 05/21/21 12:28> Providers - Providers Date of Admission: 04/23/21 11:54 Date of discharge: 05/21/21 Attending physician: ARVIN GARCIA 04/23/21 11:54 Consult to Physician [CONS] Routine Comment: Consulting Provider: KAREN DEL TORO Physician Instructions: Reason For Exam: dka 04/24/21 10:44 Consult to Physician [CONS] Routine Comment: called office/ go Consulting Provider: VINNY BUCHANAN Physician Instructions: Reason For Exam: Right Knee swelling.? infection. H/o Rt. knee surg 04/24/21 18:07 Consult to Physician [CONS] Routine Comment: Consulting Provider: TRUMAN GARCIA Physician Instructions: Reason For Exam: CAP 04/25/21 15:14 Speech Therapy Evaluation and Treat [CONS] Routine Reason For Exam: speech eval 04/26/21 07:47 Consult to Dietitian/Nutrition [CONS] Routine Physician Instructions: Assess nutrtn needs, initiate, modify, manage TF Reason For Exam: Reason for Consult: Write/Manage Tube Feeding Reason for Consult: Write/Manage Tube Feeding 04/27/21 10:06 Consult to PICC Line RN [CONS] Routine Reason For Exam: Hematologist Oncologist IV Abx Type Line:: PICC 04/29/21 12:29 Occupational Therapy Evaluate and Treat [CONS] Routine Comment: Reason For Exam: weakness Physical Therapy Evaluation and Treat [CONS] Routine Comment: Reason For Exam: weakness 05/02/21 19:08 Consult to Wound/ET Nurse [CONS] Routine Reason For Exam: wound eval 05/03/21 11:28 Consult to Case Management [CONS] Routine Services Needed at Discharge: Other Notified:: CM Comment:: IV abx upon discharge Additional Physician Instructions: [facility] ([facility]) O: [phone] F: [phone] OUTPATIENT PARENTERAL ANTIBIOTIC THERAPY (OPAT) ORDERS Diagnoses: Group B streptococcus bacteremia, 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 Lines: Maintain IV access with weekly dressing changes and locks per protocol. Lab monitoring: - CBC with differential, Creatinine, ALT, AST, ESR, CRP once a week every Thursday while on IV antibiotics. - Please fax results to [phone] and call [phone] for critical lab results. Holly Leroy MD, F[facility] 05/03/21 18:59 Consult to Case Management [CONS] Routine Services Needed at Discharge: Other Notified:: Yes Phone number called:: [phone] Additional Physician Instructions: Assess Discharge needs. Physical Therapy Evaluation and Treat [CONS] Routine Comment: Reason For Exam: Eval and Treat 05/07/21 09:04 Speech Therapy Evaluation and Treat [CONS] Routine Reason For Exam: re evaluate 05/15/21 08:33 Consult to Physician [CONS] Routine Comment: Consulting Provider: WILMA LINTON Physician Instructions: Reason For Exam: anemia 05/17/21 09:14 Consult to Physician [CONS] Routine Comment: Please call on Thursday Consulting Provider: THAI CASTELAN Physician Instructions: Reason For Exam: Septic arthritis right knee, re-evaluation 05/20/21 19:08 Consult to Physician [CONS] Routine Comment: Consulting Provider: VINNY BUCHANAN Physician Instructions: Reason For Exam: Reconsult/septic arthritis rt knee/on 6weeks abx Primary care physician: DIE CUTTER Hospitalization Condition: Serious Procedures: GI bleeding s/p colonoscopy; 05/17/2021; normal terminal ileum moderate amount of thick liquid stools scattered throughout the colon. Some large stool balls in the left colon severely limiting use 7 mm semisessile polyp in the cecum removed by cold snare polypectomy advised PPI GI cleared for discharge , Disposition: 01 HOME / SELF CARE / HOMELESS Exam - Constitutional Vitals: Temp Pulse Resp BP Pulse Ox 98.0 F 98 H 20 175/86 99 05/21/21 04:20 05/21/21 04:20 05/21/21 04:20 05/21/21 04:20 05/21/21 04:20 Plan Additional Instructions: ID recommended IV ceftriaxone 2 g daily stop date 06/14/2021[Case management has already set up, patient has PICC line]. fall precautions. Ambulate as tolerated, home PT. If you have worsening symptoms contact MD or go to the nearest emergency room as needed. Follow-up with orthopedic ID and GI per schedule Follow up with: ANGELICA HOPE MD [Staff Physician] - 7 Days (FOLLOW UP WITH DR HOPE ON THURSDAY AT 930AM IN [facility] ) PRIMARY CARE, [Primary Care Provider] - 7 Days VINNY BUCHANAN MD [Staff Physician] - 14 Days TRUMAN GARCIA MD [Staff Physician] - 14 Days Prescriptions: Sennosides Tab [Senokot] 17.2 mg PO QHS #30 tablet amLODIPine 10 mg PO QDAY #30 tablet Lispro Insulin [HumaLOG] 0 unit SUB-Q ACHS 30 Days Insulin NPH/Regular [NovoLIN 70/30] 10 unit SUB-Q BIDDIAB 30 Days oxyCODONE /ACETAMINOPHEN [Percocet 5/325 mg] 1 tab PO QID PRN #20 tablet PRN Reason: Pain, Moderate (4-6) Pantoprazole [Protonix TAB] 20 mg PO QDAY #30 tablet. Calcium Carbonate [Tums 500MG CHEW] 500 mg PO BID #60 tablet <KATIANA DRAPER - Last Filed: 05/23/21 08:59> Providers - Providers Date of Admission: 04/23/21 11:54 Date of discharge: 05/22/21 Attending physician: KATIANA DRAPER 04/23/21 11:54 Consult to Physician [CONS] Routine Comment: Consulting Provider: KAREN DEL TORO Physician Instructions: Reason For Exam: dka 04/24/21 10:44 Consult to Physician [CONS] Routine Comment: called office/ go Consulting Provider: VINNY BUCHANAN Physician Instructions: Reason For Exam: Right Knee swelling.? infection. H/o Rt. knee surg 04/24/21 18:07 Consult to Physician [CONS] Routine Comment: Consulting Provider: TRUMAN GARCIA Physician Instructions: Reason For Exam: CAP 04/25/21 15:14 Speech Therapy Evaluation and Treat [CONS] Routine Reason For Exam: speech eval 04/26/21 07:47 Consult to Dietitian/Nutrition [CONS] Routine Physician Instructions: Assess nutrtn needs, initiate, modify, manage TF Reason For Exam: Reason for Consult: Write/Manage Tube Feeding Reason for Consult: Write/Manage Tube Feeding 04/27/21 10:06 Consult to PICC Line RN [CONS] Routine Reason For Exam: Senior Care IV Abx Type Line:: PICC 04/29/21 12:29 Occupational Therapy Evaluate and Treat [CONS] Routine Comment: Reason For Exam: weakness Physical Therapy Evaluation and Treat [CONS] Routine Comment: Reason For Exam: weakness 05/02/21 19:08 Consult to Wound/ET Nurse [CONS] Routine Reason For Exam: wound eval 05/03/21 11:28 Consult to Case Management [CONS] Routine Services Needed at Discharge: Other Notified:: CM Comment:: IV abx upon discharge Additional Physician Instructions: [facility] ([facility]) O: [phone] F: [phone] OUTPATIENT PARENTERAL ANTIBIOTIC THERAPY (OPAT) ORDERS Diagnoses: Group B streptococcus bacteremia, 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 Lines: Maintain IV access with weekly dressing changes and locks per protocol. Lab monitoring: - CBC with differential, Creatinine, ALT, AST, ESR, CRP once a week every Thursday while on IV antibiotics. - Please fax results to [phone] and call [phone] for critical lab results. Holly Leroy MD, ALYSSA HAMILTON [facility] 05/03/21 18:59 Consult to Case Management [CONS] Routine Services Needed at Discharge: Other Notified:: Yes Phone number called:: [phone] Additional Physician Instructions: Assess Discharge needs. Physical Therapy Evaluation and Treat [CONS] Routine Comment: Reason For Exam: Eval and Treat 05/07/21 09:04 Speech Therapy Evaluation and Treat [CONS] Routine Reason For Exam: re evaluate 05/15/21 08:33 Consult to Physician [CONS] Routine Comment: Consulting Provider: WILMA LINTON Physician Instructions: Reason For Exam: anemia 05/17/21 09:14 Consult to Physician [CONS] Routine Comment: Please call on Thursday Consulting Provider: THAI CASTELAN Physician Instructions: Reason For Exam: Septic arthritis right knee, re-evaluation 05/20/21 19:08 Consult to Physician [CONS] Routine Comment: Consulting Provider: VINNY BUCHANAN Physician Instructions: Reason For Exam: Reconsult/septic arthritis rt knee/on 6weeks abx 05/22/21 13:15 Consult to Case Management [CONS] Routine Services Needed at Discharge: Home Health Services Notified:: olga lidia Phone number called:: [phone] Was contact made?: Yes If yes, spoke with:: charito Time called:: 13:37 Additional Physician Instructions: [facility] ([facility]) O: [phone] F: [phone] OUTPATIENT PARENTERAL ANTIBIOTIC THERAPY (OPAT) ORDERS Diagnoses: Group B streptococcus bacteremia, 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 Lines: Maintain IV access with weekly dressing changes and locks per protocol. Lab monitoring: - CBC with differential, Creatinine, ALT, AST, ESR, CRP once a week every Thursday while on IV antibiotics. - Please fax results to [phone] and call [phone] for critical lab results. Candelario Garcia MD [facility] ([facility]) O: [phone] F: [phone] Primary care physician: DIE CUTTER Hospitalization Hospital course: Brief history and daily hospital course This is a 51-year-old female with DM, OA, medication noncompliance, obesity who presented to emergency department on 04/23 with complaints of weakness, elevated blood glucose levels, nausea, polydipsia, polyuria and diminished oral intake over the past week with worsening symptoms over the past 2 days. Patient acknowledges noncompliance with oral antihyperglycemic therapy. Patient was seen and evaluated in the emergency department and found to have lab work consistent with diabetic ketoacidosis, metabolic encephalopathy, metabolic acidosis and volume depletion. Patient was admitted to the hospital service to the ICU initiated DKA protocol with CCM consult. 04/24/21- Patient remains on DKA protocol. Still very lethargic this am, follo wing simple commands. Rt. knee wound and swelling noted, and nursing staff also reported thick, white vaginal discharge. C/f sepsis, blood culture ordered, this am UA noted. Will start patient on PO difflucan for possible yeast infection, pending culture data. Anion GAP is still 18 this am, will continue DKA protocol for now. Continue to monitor electrolytes, serial BMP ordered. 04/25/21- Patient appears to be in distress this am, now on 3L NC. Lactic acidosis worsen overnight, X1L LR bolus adminstered. Ordered placed for stat ABGs. Blood culture growing GPC 3/4 bottles, patient remains afebrile with no leukocytosis. IV abx was escalated, ID consulted. Ortho consult is still pending, order placed for XR of the Rt. knee. Given patient worsen condition and high anio, gap, will continue insulin gtt for now. Low K and mg was repleted. Continue serial BMP,mg, and phosp 04/26/21- Patient appears more alert and awake this am, talkative, and following commands. Remains on DKA protocol, gap is closedX2, will transition patient to SSI and basal insulin and initiate enteral nutrition. Patient remains afebrile overnight, continue IV Abx per ID. 04/27/21- TASHA overnight. Patient mentation continue to improve. Worsening hyperglycemia, patient is tolerating TF. 70/30 added BID and SSI was adjusted to high dose Q4hrs. D/W CCM patient is stable for transfer to [facility] 04/28/21- Patient continue to improve. Remains drowsy this am, however, easily arousable. Now on 4L NC, still requiring Q4hrs NT suction due to increased secretions and weak cough. Continue to wean O2 supplement as tolerated, F/U CXR in the am. Continue IV Abx per ID. 04/29: Patient is awake and alert with strong cough and able to clear own airway. Ortho consult for right knee aspiration pending. 04/30: No acute events reported overnight, patient will be transferred to the floor. MR of right knee ordered. 05/01; patient had arthrocentesis 05/02; ID recommended total 6 weeks of Rocephin, case management to assist with antibiotics 05/02; patient is febrile, sepsis and positive cultures, currently on Rocephin, ID following 05/03; patient remains on tube feeding, speech therapist has not cleared for oral nutrition, aspiration risk Septic arthritis awaiting synovial debridement knee joint 05/04; blood sugars are uncontrolled Lantus insulin was stopped due to surgical procedure yesterday, Resumed Novolin 70/30, closely monitor and adjust the dose as needed 05/05; patient received 1 unit of PRBC yesterday, a.m. hemoglobin remains 6.8 after transfusion, recheck H&H, transfuse additional PRBC Patient remains on tube feedings, speech therapy following, on long-term antibiotics for her septic knee total 6 weeks 05/06/2021 Patient remains on tube feedings, Speech therapy 6 weeks of antibiotics for septic arthritis If patient can swallow and tube feedings are discontinued--- patient can have IV antibiotics as outpatient Not ready for discharge 05/07: Patient seen and examined, remains quit ill, NG tube still in place hemoglobin is still 6.9 despite second unit transfusion done. Hard sure where this is coming from unsure why the patient is not able to eat. Will obtain MRI of the head to further evaluate and also obtain stool for occult blood to further elicit. In the meantime this is a painless delay in discharge and once that is rectified placement is already being pursued by case management. Dressing in the knee is in place. 05/08/2021;NG tube still in place 05/09/2021;NG tube still in place 05/10/2021;Patient more alert and oriented, NG tube still in place 05/11/2021 Patient is more alert and oriented NG tube is taken out 05/12/2021 Patient is able to eat Patient is alert and oriented Patient is ready for discharge and outpatient IV antibiotics for 4 to 5 weeks. 05/13/21 Anemia with Hgb 6.8. Transfuse 1 Unit PRBC 05/14/21 Patient transfused 1 Unit, now Hgb 7.7 05/15/21 Patient started on Pureed diet yesterday. Still has tube feed going Hgb 7.2 Will check stool occult blood Consult GI for anemia with hgb 6s. Stool occult blood neg 05/16/21 EGD done today:gastritis,erythema Colonoscopy postponed to tomorrow Labs pending today 05/17 patient with sepsis, right knee septic arthritis, metabolic encephalopathy. She had anemia s/p PRBC transfused EGD yesterday revealed gastritis For colonoscopy today Resume pureed diet after colonoscopy For Ceftriaxone iv till 06/14/21 ID also recommends re-eval by Ortho I have entered reconsult for Thursday since Dr. buchanan is out sick and Dr. Castelan comes back on Thursday05/18/21; continue current management Patient will be reevaluated by orthopedic surgeon on Thursday on 05/20/2021 Disposition per Ortho 05/19/2021; long-term antibiotics for 6 weeks per ID PICC line, PT recommended subacute rehab, DC planning per case management 05/20/2021; Ortho procedures 04/30/2021; right knee synovial fluid cultures group B streptococcus 05/03/2021 right knee OR cultures no growth next 05/03/2021 arthrocentesis status post IND followed by arthroscopic examination of right knee on 05/03/2021 entered the joint proper with return of copious amount of purulent material and significant cartilage degeneration from repeated infections ID recommended 6 weeks of IV antibiotics due to recurrent chronic possibility of osteomyelitis and extensive cartilage degeneration Patient is currently on IV Ancef while inpatient upon discharge IV Rocephin ending 06/14/2021 Case management has arranged the medications and PICC line is already placed 05/21/2021; patient is medically stable for discharge pending clearance from orthopedic surgeon Dr. CASTELAN 05/22/20: Cleared by orthopedic surgeon for discharge, patient will be discharged home with home health and 08/12 family support. She will complete antibiotics with ceftriaxone ending date June 14, 2021. Home health, IV antibiotics has been arranged by the case management. PICC line already in place. Discharge plan and management was thoroughly discussed with the patient and she verbalized understanding. Discharge diagnosis and management: -Anemia; Hb 6.8-6.9--7.7 Received total 4 units of PRBC transfusion Status post colonoscopy Closely monitor H&H and transfuse as needed --Oropharyngeal dysphagia; tolerating oral nutrition Patient is on tube feeding till recently Tolerating oral diet, --Septic arthritis; knee; Ortho is planning knee/synovial debridement 04/30/2021;s/p arthrocentesis 05/03/2021 s/p Incision and drainage followed by arthroscopic exam of the right knee Continue antibiotics per ID total 6 weeks -- Sepsis, group B Streptococcus bacteremia, h/o right septic arthritis -Infectious disease consulted, appreciate recommendations -ABX therapy per ID: Ceftriaxone 2 g every 24 hours -Right knee x-ray shows large joint effusion s/p arthrocentesis Positive synovial fluid cultures, ID recommended total 6 weeks of Rocephin --Acute metabolic encephalopathy (improved significantly) Patient is more alert and awake, supportive care -Echocardiogram shows mildly dilated right heart chamber, mild to moderate TR, moderate pulmonary hypertension, RVSP 50-55, LVEF 45-50 --Respiratory: Acute hypoxic respiratory failure Nasal cannula oxygen, intermittent BiPAP Home O2 evaluation --Severe protein calorie malnutrition --Hypoalbuminemia, albumin 1.7 Dietitian/electrode turner and finisher following Continue tube feeding, nutrition supplements Supportive care -- Hypernatremia (resolved) Closely monitor electrolytes --Leukocytosis/trending down Secondary to sepsis, continue antibiotics and supportive care Closely monitor --S/p DKA, h/o uncontrolled DM/present on admission -Hemoglobin A1c 18.3 Blood sugars moderate control -Avoid hypoglycemia Monitored with Accu-Chek with sliding scale coverage and with scheduled the long-acting insulin --Hypertension, initiated on Norvasc --DVT prophylaxis Subcu Lovenox --Full CODE STATUS Final Discharge Diagnosis (Prints w/discharge instructions): --Anemia; Hb 6.8-6.9--7.7. --Oropharyngeal dysphagia; tolerating oral nutrition. --Septic arthritis; right knee;. -- Sepsis, group B Streptococcus bacteremia, h/o right septic arthritis. --Acute metabolic encephalopathy (improved significantly). --Acute hypoxic respiratory failure. --Severe protein calorie malnutrition. --Hypoalbuminemia, albumin 1.7. -- Hypernatremia (resolved). --Leukocytosis due to sepsis, trending down. --S/p DKA, h/o uncontrolled DM/present on adm ission. --HTN, moderately controlled Time spent for discharge: 34 minutes Core Measure Documentation - Palliative Care Palliative Care/ Comfort Measures: Not Applicable - Core Measures Any of the following diagnoses?: none Exam - Physical Exam Narrative exam: General appearance: Present: no acute distress, well-nourished, obese - EENT Eyes: Present: PERRL, EOM intact - Neck Neck: Present: supple, normal ROM - Respiratory Respiratory effort: normal Respiratory: bilateral: diminished, negative: rales, rhonchi, wheezing - Cardiovascular Rhythm: regular Heart Sounds: Present: S1 & S2 - Extremities Extremities: no ischemia, No edema - Abdominal General gastrointestinal: soft, non-tender, non-distended, normal bowel sounds - Integumentary Integumentary: Present: clear, warm - Psychiatric Psychiatric: appropriate mood/affect, cooperative --Musculoskeletal right knee joint with mild medial swelling -- Neurologic Neurologic: moves all extremities - Constitutional Vitals: Temp Pulse Resp BP Pulse Ox 99.0 F 92 H 22 151/79 91 05/22/21 10:55 05/22/21 10:55 05/22/21 10:55 05/22/21 10:55 05/22/21 10:55 Plan Activity: fall precautions Weight Bearing Status: Non-Weight Bearing Diet: diabetic
--- NOTE | 2021-05-21 15:08 | Progress Note ---
Subjective Date of service: 05/21/21 Principal diagnosis: HAGMA; DKA; AMS; Obesity; Osteoarthritis; Hypercalcemia Objective Vital signs: Vital Signs - 12hr 05/21/21 05/21/21 04:20 11:30 Temperature 98.0 F 97.7 F Pulse Rate 98 H 101 H Respiratory 20 20 Rate Blood Pressure 175/86 Blood Pressure 162/78 [Right] O2 Sat by Pulse 99 96 Oximetry - Labs CBC & BMP: 05/18/21 05:10 05/18/21 05:10 Labs: Abnormal lab results 05/20/21 05/20/21 05/21/21 Range/Units 15:58 21:20 08:42 POC Glucose 110 H 166 H 154 H (70-105) mg/dL 05/21/21 Range/Units 12:44 POC Glucose 168 H (70-105) mg/dL
--- NOTE | 2021-05-21 21:54 | Progress Note ---
Assessment and Plan 51 YO Female with DM, OA, Medication Noncompliance, Obesity presents to ED for evaluation. Patient reports "I feel sick". Patient states she had experienced weakness, elevated blood glucose levels, nausea, polydipsia, polyuria, as well a s diminished oral intake over the past 1 week with worsening symptoms over the last 2 days. Patient acknowledges noncompliance with oral antihyperglycemic therapy. Patient states that her weight has gotten progressively worse and and that she is "too weak to walk". EMS was notified and upon arrival the patient was found to be in distress and subsequent transported to [facility] for further care and evaluation of the aforementioned symptoms. The patient was seen and evaluated in the emergency department. All lab and imaging studies reviewed. The patient was found to have diabetic ketoacidosis, metabolic encephalopathy, as well as metabolic acidosis, and volume depletion. Patient mated to ICU and initiated on DKA protocol. Critical care team consulted in ED. Patient has fever, chills, chest pain, palpitation, productive cough, skin rash, recent contact, known exposure to COVID-1 Patients sullivan virus PCR is negative. Patient is awake, alert, but weak. Patient is on 2 litres O2. O2 saturation 96%. No Complaint of chest pain, shortness of breath or cough Patient is afebrile. No leukocytosis. Blood pressure 156/70, Pulse 109, respirations 16. 05/18/21 Hgb is 7.7. Patient received a blood transfusion. Chest xray done 04/29/21 reported Low lung volumes with bibasilar opacities/atelectasis persists, unchanged. No pneumothorax. Chest xray done 05/08/21 reported table, mild increased densities and atelectasis in the lower lungs. No pneumothorax. Chest xray done 05/13/21 reported Increased interstitial prominence in bilateral lungs. Elevation right hemidiaphragm with right lower lung atelectasis No pneumothorax. Patient had right knee surgery. Patient is on Cefazolin, Albuterol aerosol treatments and Prevacid and S/C Heparin. - Patient Problems (1) High anion gap metabolic acidosis Current Visit: Yes Status: Acute Plan to address problem: Improving. 05/18/21 anion gap is 16 (2) DKA (diabetic ketoacidosis) Current Visit: Yes Status: Acute Qualifiers: Diabetes mellitus type: type 1 Plan to address problem: Improving. Management as primary care. (3) Metabolic encephalopathy Current Visit: Yes Status: Acute Plan to address problem: Management as primary care and neurology. (4) Abscess of right foot Current Visit: No Status: Acute Plan to address problem: Management as primary care and ID Patient on Cefazolin (5) Diabetic ulcer of right foot associated with diabetes mellitus due to underlying condition, with fat layer exposed Current Visit: No Status: Acute Plan to address problem: Management as per primary care. (6) Hypertension Current Visit: No Status: Chronic Plan to address problem: Management as primary care. Subjective Date of service: 05/21/21 Principal diagnosis: HAGMA; DKA; AMS; Obesity; Osteoarthritis; Hypercalcemia Interval history: 51 YO Female with DM, OA, Medication Noncompliance, Obesity presents to ED for evaluation. Patient reports "I feel sick". Patient states she had experienced weakness, elevated blood glucose levels, nausea, polydipsia, polyuria, as well as diminished oral intake over the past 1 week with worsening symptoms over the last 2 days. Patient acknowledges noncompliance with oral antihyperglycemic therapy. Patient states that her weight has gotten progressively worse and and that she is "too weak to walk". EMS was notified and upon arrival the patient was found to be in distress and subsequent transported to [facility] for further care and evaluation of the aforementioned symptoms. The patient was seen and evaluated in the emergency department. All lab and imaging studies reviewed. The patient was found to have diabetic ketoacidosis, metabolic encephalopathy, as well as metabolic acidosis, and volume depletion. Patient mated to ICU and initiated on DKA protocol. Critical care team consulted in ED. Patient has fever, chills, chest pain, palpitation, productive cough, skin rash, recent contact, known exposure to COVID-1 Patients sullivan virus PCR is negative. Patient is awake, alert, but weak. Patient is on 2 litres O2. O2 saturation 96%. No Complaint of chest pain, shortness of breath or cough Patient is afebrile. No leukocytosis. Blood pressure 156/70, Pulse 109, respirations 16. 05/18/21 Hgb is 7.7. Patient received a blood transfusion. Chest xray done 04/29/21 reported Low lung volumes with bibasilar opacities/atelectasis persists, unchanged. No pneumothorax. Chest xray done 05/08/21 reported table, mild increased densities and atelectasis in the lower lungs. No pneumothorax. Chest xray done 05/13/21 reported Increased interstitial prominence in bilateral lungs. Elevation right hemidiaphragm with right lower lung atelectasis No pneumothorax. Patient had right knee surgery. Patient is on Cefazolin, Albuterol aerosol treatments and Prevacid and S/C Hepa rin. Objective Vital Signs - 12hr 05/21/21 05/21/21 05/21/21 10:00 11:30 17:18 Temperature 97.7 F 99.2 F Pulse Rate 101 H 98 H Respiratory 20 20 Rate Blood Pressure Blood Pressure 162/78 158/71 [Right] O2 Sat by Pulse 98 96 98 Oximetry 05/21/21 05/21/21 05/21/21 17:55 21:14 21:37 Temperature 98.9 F Pulse Rate 109 H Respiratory 16 Rate Blood Pressure 156/70 Blood Pressure [Right] O2 Sat by Pulse 97 98 96 Oximetry Constitutional: no acute distress, alert Eyes: non-icteric ENT: oropharynx moist Neck: supple, no lymphadenopathy, no JVD Effort: normal Ascultation: Bilateral: diminished breath sounds, rhonchi Percussion: Bilateral: not dull Cardiovascular: regular rate and rhythm, other (S1,S2) Gastrointestinal: hypoactive bowel sounds, soft, non-tender, non-distended (protuberant) Integumentary: rash (perineal) Extremities: no cyanosis, no edema, pulses normal, no ischemia or petechiae, oth er (Right knee surgery.) Neurologic: normal mental status, non-focal exam, pupils equal and round, other Psychiatric: mood appropriate, affect normal CBC and BMP: 05/18/21 05:10 05/18/21 05:10 ABG, PT/INR, D-dimer: ABG ABG pH 7.426 pH Units (7.350-7.450) 04/25/21 11:20 ABG pCO2 25.3 mm Hg 04/25/21 11:20 ABG pO2 73.2 mm Hg (80.0-90.0) L 04/25/21 11:20 ABG O2 Saturation 96.9 % (95.0-99.0) 04/25/21 11:20 PT/INR, D-dimer PT 15.8 Sec. (12.2-14.9) H 05/15/21 13:04 INR 1.14 (0.87-1.13) H 05/15/21 13:04 Abnormal lab findings: Abnormal Labs 04/23/21 04/23/21 04/23/21 10:33 10:33 10:33 WBC RBC Hgb Hct MCV MCH 26 L RDW Plt Count Lymph % (Auto) Seg Neutrophils % Seg Neuts % (Manual) Lymphocytes % (Manual) 7.0 L Nucleated RBC % 2.0 H Seg Neutrophils # Lymphocytes # (Manual) 0.5 L PT INR ABG pO2 ABG HCO3 ABG Base Excess ABG Hemoglobin VBG pH 7.180 L* Oxyhemoglobin Sodium 122 L Potassium 3.0 L Chloride 84.8 L Carbon Dioxide 6 L* BUN 49 H Creatinine 1.4 H Glucose 775 H* POC Glucose Hemoglobin A1c Lactic Acid Calcium 12.2 H* Phosphorus Magnesium Alkaline Phosphatase 130 H C-Reactive Protein Total Protein Albumin 2.9 L Vancomycin Trough Crossmatch 04/23/21 04/23/21 04/23/21 10:40 12:44 14:01 WBC RBC Hgb Hct MCV MCH RDW Plt Count Lymph % (Auto) Seg Neutrophils % Seg Neuts % (Manual) Lymphocytes % (Manual) Nucleated RBC % Seg Neutrophils # Lymphocytes # (Manual) PT INR ABG pO2 ABG HCO3 ABG Base Excess ABG Hemoglobin VBG pH Oxyhemoglobin Sodium Potassium Chloride Carbon Dioxide BUN Creatinine Glucose POC Glucose > 600 H 550 H Hemoglobin A1c Lactic Acid Calcium Phosphorus 1.50 L Magnesium Alkaline Phosphatase C-Reactive Protein Total Protein Albumin Vancomycin Trough Crossmatch 04/23/21 04/23/21 04/23/21 14:01 14:04 14:56 WBC RBC Hgb Hct MCV MCH RDW Plt Count Lymph % (Auto) Seg Neutrophils % Seg Neuts % (Manual) Lymphocytes % (Manual) Nucleated RBC % Seg Neutrophils # Lymphocytes # (Manual) PT INR ABG pO2 ABG HCO3 ABG Base Excess ABG Hemoglobin VBG pH Oxyhemoglobin Sodium 125 L Potassium 3.0 L Chloride 89.2 L Carbon Dioxide 6 L* BUN 45 H Creatinine 1.3 H Glucose 594 H* POC Glucose 518 H 425 H Hemoglobin A1c Lactic Acid Calcium 10.9 H Phosphorus Magnesium Alkaline Phosphatase C-Reactive Protein Total Protein Albumin Vancomycin Trough Crossmatch 04/23/21 04/23/21 04/23/21 15:43 15:48 17:21 WBC RBC Hgb Hct MCV MCH RDW Plt Count Lymph % (Auto) Seg Neutrophils % Seg Neuts % (Manual) Lymphocytes % (Manual) Nucleated RBC % Seg Neutrophils # Lymphocytes # (Manual) PT INR ABG pO2 ABG HCO3 ABG Base Excess ABG Hemoglobin VBG pH Oxyhemoglobin Sodium 131 L Potassium 2.9 L* Chloride Carbon Dioxide 8 L* BUN 39 H Creatinine Glucose 434 H POC Glucose 410 H 407 H Hemoglobin A1c Lactic Acid Calcium 10.3 H Phosphorus Magnesium Alkaline Phosphatase C-Reactive Protein Total Protein Albumin Vancomycin Trough Crossmatch 04/23/21 04/23/21 04/23/21 18:07 19:13 19:54 WBC RBC Hgb Hct MCV MCH RDW Plt Count Lymph % (Auto) Seg Neutrophils % Seg Neuts % (Manual) Lymphocytes % (Manual) Nucleated RBC % Seg Neutrophils # Lymphocytes # (Manual) PT INR ABG pO2 ABG HCO3 ABG Base Excess ABG Hemoglobin VBG pH Oxyhemoglobin Sodium 131 L Potassium 3.1 L Chloride 95.9 L Carbon Dioxide 7 L* BUN 39 H Creatinine Glucose 391 H POC Glucose 428 H 350 H Hemoglobin A1c Lactic Acid Calcium 11.2 H Phosphorus Magnesium Alkaline Phosphatase C-Reactive Protein Total Protein Albumin Vancomycin Trough Crossmatch 04/23/21 04/23/21 04/23/21 19:54 20:12 20:59 WBC RBC Hgb Hct MCV MCH RDW Plt Count Lymph % (Auto) Seg Neutrophils % Seg Neuts % (Manual) Lymphocytes % (Manual) Nucleated RBC % Seg Neutrophils # Lymphocytes # (Manual) PT INR ABG pO2 ABG HCO3 ABG Base Excess ABG Hemoglobin VBG pH Oxyhemoglobin Sodium Potassium Chloride Carbon Dioxide BUN Creatinine Glucose POC Glucose 365 H 286 H Hemoglobin A1c Lactic Acid Calcium Phosphorus 1.10 L D Magnesium Alkaline Phosphatase C-Reactive Protein Total Protein Albumin Vancomycin Trough Crossmatch 04/23/21 04/23/21 04/23/21 22:05 22:23 22:59 WBC RBC Hgb Hct MCV MCH RDW Plt Count Lymph % (Auto) Seg Neutrophils % Seg Neuts % (Manual) Lymphocytes % (Manual) Nucleated RBC % Seg Neutrophils # Lymphocytes # (Manual) PT INR ABG pO2 ABG HCO3 ABG Base Excess ABG Hemoglobin VBG pH Oxyhemoglobin Sodium 135 L Potassium 3.2 L Chloride Carbon Dioxide 10 L BUN 35 H Creatinine Glucose 300 H POC Glucose 257 H 238 H Hemoglobin A1c Lactic Acid Calcium 11.6 H Phosphorus Magnesium Alkaline Phosphatase C-Reactive Protein Total Protein Albumin Vancomycin Trough Crossmatch 04/23/21 04/24/21 04/24/21 23:57 00:10 00:56 WBC RBC Hgb Hct MCV MCH RDW Plt Count Lymph % (Auto) Seg Neutrophils % Seg Neuts % (Manual) Lymphocytes % (Manual) Nucleated RBC % Seg Neutrophils # Lymphocytes # (Manual) PT INR ABG pO2 ABG HCO3 ABG Base Excess ABG Hemoglobin VBG pH Oxyhemoglobin Sodium Potassium 3.2 L Chloride Carbon Dioxide 13 L BUN 33 H Creatinine Glucose 267 H POC Glucose 223 H 254 H Hemoglobin A1c Lactic Acid Calcium 11.2 H Phosphorus 1.20 L Magnesium Alkaline Phosphatase C-Reactive Protein Total Protein Albumin Vancomycin Trough Crossmatch 04/24/21 04/24/21 04/24/21 01:58 02:58 03:57 WBC RBC Hgb Hct MCV MCH RDW Plt Count Lymph % (Auto) Seg Neutrophils % Seg Neuts % (Manual) Lymphocytes % (Manual) Nucleated RBC % Seg Neutrophils # Lymphocytes # (Manual) PT INR ABG pO2 ABG HCO3 ABG Base Excess ABG Hemoglobin VBG pH Oxyhemoglobin Sodium Potassium Chloride Carbon Dioxide BUN Creatinine Glucose POC Glucose 264 H 251 H 200 H Hemoglobin A1c Lactic Acid Calcium Phosphorus Magnesium Alkaline Phosphatase C-Reactive Protein Total Protein Albumin Vancomycin Trough Crossmatch 04/24/21 04/24/21 04/24/21 04:16 04:16 04:16 WBC RBC Hgb Hct MCV MCH 26 L RDW Plt Count Lymph % (Auto) Seg Neutrophils % Seg Neuts % (Manual) Lymphocytes % (Manual) Nucleated RBC % Seg Neutrophils # Lymphocytes # (Manual) PT INR ABG pO2 ABG HCO3 ABG Base Excess ABG Hemoglobin VBG pH Oxyhemoglobin Sodium Potassium Chloride 108.0 H Carbon Dioxide 13 L BUN 31 H Creatinine Glucose 243 H POC Glucose Hemoglobin A1c 18.3 H Lactic Acid Calcium 10.9 H Phosphorus 1.80 L D Magnesium Alkaline Phosphatase C-Reactive Protein Total Protein Albumin Vancomycin Trough Crossmatch 04/24/21 04/24/21 04/24/21 04:59 05:53 06:51 WBC RBC Hgb Hct MCV MCH RDW Plt Count Lymph % (Auto) Seg Neutrophils % Seg Neuts % (Manual) Lymphocytes % (Manual) Nucleated RBC % Seg Neutrophils # Lymphocytes # (Manual) PT INR ABG pO2 ABG HCO3 ABG Base Excess ABG Hemoglobin VBG pH Oxyhemoglobin Sodium Potassium Chloride Carbon Dioxide BUN Creatinine Glucose POC Glucose 208 H 213 H 161 H Hemoglobin A1c Lactic Acid Calcium Phosphorus Magnesium Alkaline Phosphatase C-Reactive Protein Total Protein Albumin Vancomycin Trough Crossmatch 04/24/21 04/24/21 04/24/21 07:58 09:21 10:06 WBC RBC Hgb Hct MCV MCH RDW Plt Count Lymph % (Auto) Seg Neutrophils % Seg Neuts % (Manual) Lymphocytes % (Manual) Nucleated RBC % Seg Neutrophils # Lymphocytes # (Manual) PT INR ABG pO2 ABG HCO3 ABG Base Excess ABG Hemoglobin VBG pH Oxyhemoglobin Sodium Potassium Chloride Carbon Dioxide BUN Creatinine Glucose POC Glucose 149 H 178 H 164 H Hemoglobin A1c Lactic Acid Calcium Phosphorus Magnesium Alkaline Phosphatase C-Reactive Protein Total Protein Albumin Vancomycin Trough Crossmatch 04/24/21 04/24/21 04/24/21 11:03 12:07 12:14 WBC RBC Hgb Hct MCV MCH RDW Plt Count Lymph % (Auto) Seg Neutrophils % Seg Neuts % (Manual) Lymphocytes % (Manual) Nucleated RBC % Seg Neutrophils # Lymphocytes # (Manual) PT INR ABG pO2 ABG HCO3 ABG Base Excess ABG Hemoglobin VBG pH Oxyhemoglobin Sodium Potassium 3.2 L Chloride 108.7 H Carbon Dioxide 16 L BUN 24 H Creatinine Glucose 160 H POC Glucose 157 H 142 H Hemoglobin A1c Lactic Acid Calcium 10.5 H Phosphorus 0.70 L* D Magnesium Alkaline Phosphatase C-Reactive Protein Total Protein Albumin Vancomycin Trough Crossmatch 04/24/21 04/24/21 04/24/21 12:14 13:02 14:00 WBC RBC Hgb Hct MCV MCH RDW Plt Count Lymph % (Auto) Seg Neutrophils % Seg Neuts % (Manual) Lymphocytes % (Manual) Nucleated RBC % Seg Neutrophils # Lymphocytes # (Manual) PT INR ABG pO2 ABG HCO3 ABG Base Excess ABG Hemoglobin VBG pH Oxyhemoglobin Sodium Potassium Chloride Carbon Dioxide BUN Creatinine Glucose POC Glucose 138 H 150 H Hemoglobin A1c Lactic Acid 2.50 H* Calcium Phosphorus Magnesium Alkaline Phosphatase C-Reactive Protein Total Protein Albumin Vancomycin Trough Crossmatch 04/24/21 04/24/21 04/24/21 15:14 16:07 17:11 WBC RBC Hgb Hct MCV MCH RDW Plt Count Lymph % (Auto) Seg Neutrophils % Seg Neuts % (Manual) Lymphocytes % (Manual) Nucleated RBC % Seg Neutrophils # Lymphocytes # (Manual) PT INR ABG pO2 ABG HCO3 ABG Base Excess ABG Hemoglobin VBG pH Oxyhemoglobin Sodium Potassium Chloride Carbon Dioxide BUN Creatinine Glucose POC Glucose 145 H 148 H 156 H Hemoglobin A1c Lactic Acid Calcium Phosphorus Magnesium Alkaline Phosphatase C-Reactive Protein Total Protein Albumin Vancomycin Trough Crossmatch 04/24/21 04/24/21 04/24/21 18:12 18:24 19:55 WBC RBC Hgb Hct MCV MCH RDW Plt Count Lymph % (Auto) Seg Neutrophils % Seg Neuts % (Manual) Lymphocytes % (Manual) Nucleated RBC % Seg Neutrophils # Lymphocytes # (Manual) PT INR ABG pO2 ABG HCO3 ABG Base Excess ABG Hemoglobin VBG pH Oxyhemoglobin Sodium Potassium Chloride 109.2 H Carbon Dioxide 15 L BUN 22 H Creatinine Glucose 159 H POC Glucose 153 H 176 H Hemoglobin A1c Lactic Acid Calcium Phosphorus 1.80 L D Magnesium Alkaline Phosphatase C-Reactive Protein 24.30 H Total Protein Albumin Vancomycin Trough Crossmatch 04/24/21 04/24/21 04/24/21 20:55 22:04 23:02 WBC RBC Hgb Hct MCV MCH RDW Plt Count Lymph % (Auto) Seg Neutrophils % Seg Neuts % (Manual) Lymphocytes % (Manual) Nucleated RBC % Seg Neutrophils # Lymphocytes # (Manual) PT INR ABG pO2 ABG HCO3 ABG Base Excess ABG Hemoglobin VBG pH Oxyhemoglobin Sodium Potassium Chloride Carbon Dioxide BUN Creatinine Glucose POC Glucose 146 H 169 H Hemoglobin A1c Lactic Acid 3.10 H* Calcium Phosphorus Magnesium Alkaline Phosphatase C-Reactive Protein Total Protein Albumin Vancomycin Trough Crossmatch 04/24/21 04/25/21 04/25/21 23:13 00:05 01:28 WBC RBC Hgb Hct MCV MCH RDW Plt Count Lymph % (Auto) Seg Neutrophils % Seg Neuts % (Manual) Lymphocytes % (Manual) Nucleated RBC % Seg Neutrophils # Lymphocytes # (Manual) PT INR ABG pO2 ABG HCO3 ABG Base Excess ABG Hemoglobin VBG pH Oxyhemoglobin Sodium Potassium Chloride Carbon Dioxide BUN Creatinine Glucose POC Glucose 144 H 150 H 142 H Hemoglobin A1c Lactic Acid Calcium Phosphorus Magnesium Alkaline Phosphatase C-Reactive Protein Total Protein Albumin Vancomycin Trough Crossmatch 04/25/21 04/25/21 04/25/21 02:03 03:07 04:17 WBC RBC Hgb Hct MCV MCH RDW Plt Count Lymph % (Auto) Seg Neutrophils % Seg Neuts % (Manual) Lymphocytes % (Manual) Nucleated RBC % Seg Neutrophils # Lymphocytes # (Manual) PT INR ABG pO2 ABG HCO3 ABG Base Excess ABG Hemoglobin VBG pH Oxyhemoglobin Sodium Potassium Chloride Carbon Dioxide BUN Creatinine Glucose POC Glucose 148 H 161 H 158 H Hemoglobin A1c Lactic Acid Calcium Phosphorus Magnesium Alkaline Phosphatase C-Reactive Protein Total Protein Albumin Vancomycin Trough Crossmatch 04/25/21 04/25/21 04/25/21 05:48 06:52 07:58 WBC RBC Hgb Hct MCV MCH RDW Plt Count Lymph % (Auto) Seg Neutrophils % Seg Neuts % (Manual) Lymphocytes % (Manual) Nucleated RBC % Seg Neutrophils # Lymphocytes # (Manual) PT INR ABG pO2 ABG HCO3 ABG Base Excess ABG Hemoglobin VBG pH Oxyhemoglobin Sodium Potassium Chloride Carbon Dioxide BUN Creatinine Glucose POC Glucose 136 H 137 H 143 H Hemoglobin A1c Lactic Acid Calcium Phosphorus Magnesium Alkaline Phosphatase C-Reactive Protein Total Protein Albumin Vancomycin Trough Crossmatch 04/25/21 04/25/21 04/25/21 08:10 08:10 08:10 WBC RBC Hgb 9.5 L Hct 28.8 L MCV MCH 26 L RDW Plt Count Lymph % (Auto) Seg Neutrophils % Seg Neuts % (Manual) 33.0 L Lymphocytes % (Manual) Nucleated RBC % Seg Neutrophils # Lymphocytes # (Manual) 1.1 L PT INR ABG pO2 ABG HCO3 ABG Base Excess ABG Hemoglobin VBG pH Oxyhemoglobin Sodium Potassium 3.3 L Chloride 109.0 H Carbon Dioxide 16 L BUN 23 H Creatinine Glucose 151 H POC Glucose Hemoglobin A1c Lactic Acid 2.10 H* Calcium Phosphorus 2.20 L D Magnesium 1.60 L Alkaline Phosphatase C-Reactive Protein Total Protein Albumin Vancomycin Trough Crossmatch 04/25/21 04/25/21 04/25/21 08:53 09:59 11:20 WBC RBC Hgb Hct MCV MCH RDW Plt Count Lymph % (Auto) Seg Neutrophils % Seg Neuts % (Manual) Lymphocytes % (Manual) Nucleated RBC % Seg Neutrophils # Lymphocytes # (Manual) PT INR ABG pO2 ABG HCO3 ABG Base Excess ABG Hemoglobin VBG pH Oxyhemoglobin Sodium Potassium Chloride Carbon Dioxide BUN Creatinine Glucose POC Glucose 132 H 141 H 141 H Hemoglobin A1c Lactic Acid Calcium Phosphorus Magnesium Alkaline Phosphatase C-Reactive Protein Total Protein Albumin Vancomycin Trough Crossmatch 04/25/21 04/25/21 04/25/21 11:20 12:04 12:26 WBC RBC Hgb Hct MCV MCH RDW Plt Count Lymph % (Auto) Seg Neutrophils % Seg Neuts % (Manual) Lymphocytes % (Manual) Nucleated RBC % Seg Neutrophils # Lymphocytes # (Manual) PT INR ABG pO2 73.2 L ABG HCO3 16.2 L ABG Base Excess -7.1 L ABG Hemoglobin 8.7 L VBG pH Oxyhemoglobin 94.8 L Sodium Potassium 3.4 L Chloride 109.5 H Carbon Dioxide 14 L BUN 21 H Creatinine Glucose 155 H POC Glucose 129 H Hemoglobin A1c Lactic Acid Calcium Phosphorus 1.90 L Magnesium 1.60 L Alkaline Phosphatase C-Reactive Protein Total Protein Albumin Vancomycin Trough Crossmatch 04/25/21 04/25/21 04/25/21 13:04 13:58 15:09 WBC RBC Hgb Hct MCV MCH RDW Plt Count Lymph % (Auto) Seg Neutrophils % Seg Neuts % (Manual) Lymphocytes % (Manual) Nucleated RBC % Seg Neutrophils # Lymphocytes # (Manual) PT INR ABG pO2 ABG HCO3 ABG Base Excess ABG Hemoglobin VBG pH Oxyhemoglobin Sodium Potassium Chloride Carbon Dioxide BUN Creatinine Glucose POC Glucose 135 H 140 H 134 H Hemoglobin A1c Lactic Acid Calcium Phosphorus Magnesium Alkaline Phosphatase C-Reactive Protein Total Protein Albumin Vancomycin Trough Crossmatch 04/25/21 04/25/21 04/25/21 16:00 18:56 18:58 WBC RBC Hgb Hct MCV MCH RDW Plt Count Lymph % (Auto) Seg Neutrophils % Seg Neuts % (Manual) Lymphocytes % (Manual) Nucleated RBC % Seg Neutrophils # Lymphocytes # (Manual) PT INR ABG pO2 ABG HCO3 ABG Base Excess ABG Hemoglobin VBG pH Oxyhemoglobin Sodium Potassium Chloride Carbon Dioxide BUN Creatinine Glucose POC Glucose 135 H 170 H Hemoglobin A1c Lactic Acid 2.10 H* Calcium Phosphorus Magnesium Alkaline Phosphatase C-Reactive Protein Total Protein Albumin Vancomycin Trough Crossmatch 04/25/21 04/25/21 04/25/21 18:58 19:52 20:53 WBC RBC Hgb Hct MCV MCH RDW Plt Count Lymph % (Auto) Seg Neutrophils % Seg Neuts % (Manual) Lymphocytes % (Manual) Nucleated RBC % Seg Neutrophils # Lymphocytes # (Manual) PT INR ABG pO2 ABG HCO3 ABG Base Excess ABG Hemoglobin VBG pH Oxyhemoglobin Sodium Potassium Chloride 110.1 H Carbon Dioxide 13 L BUN 23 H Creatinine Glucose 206 H POC Glucose 162 H 171 H Hemoglobin A1c Lactic Acid Calcium Phosphorus Magnesium 2.40 H Alkaline Phosphatase C-Reactive Protein Total Protein Albumin Vancomycin Trough Crossmatch 04/25/21 04/25/21 04/26/21 21:54 22:53 00:03 WBC RBC Hgb Hct MCV MCH RDW Plt Count Lymph % (Auto) Seg Neutrophils % Seg Neuts % (Manual) Lymphocytes % (Manual) Nucleated RBC % Seg Neutrophils # Lymphocytes # (Manual) PT INR ABG pO2 ABG HCO3 ABG Base Excess ABG Hemoglobin VBG pH Oxyhemoglobin Sodium Potassium Chloride Carbon Dioxide BUN Creatinine Glucose POC Glucose 139 H 140 H 129 H Hemoglobin A1c Lactic Acid Calcium Phosphorus Magnesium Alkaline Phosphatase C-Reactive Protein Total Protein Albumin Vancomycin Trough Crossmatch 04/26/21 04/26/21 04/26/21 00:38 01:00 01:56 WBC RBC Hgb Hct MCV MCH RDW Plt Count Lymph % (Auto) Seg Neutrophils % Seg Neuts % (Manual) Lymphocytes % (Manual) Nucleated RBC % Seg Neutrophils # Lymphocytes # (Manual) PT INR ABG pO2 ABG HCO3 ABG Base Excess ABG Hemoglobin VBG pH Oxyhemoglobin Sodium Potassium Chloride 112.6 H Carbon Dioxide 14 L BUN 22 H Creatinine Glucose 149 H POC Glucose 126 H 137 H Hemoglobin A1c Lactic Acid Calcium Phosphorus Magnesium 2.40 H Alkaline Phosphatase C-Reactive Protein Total Protein Albumin Vancomycin Trough Crossmatch 04/26/21 04/26/21 04/26/21 02:54 04:04 05:02 WBC RBC 3.44 L Hgb 8.9 L Hct 26.9 L MCV 78 L MCH 26 L RDW Plt Count Lymph % (Auto) Seg Neutrophils % Seg Neuts % (Manual) Lymphocytes % (Manual) Nucleated RBC % Seg Neutrophils # Lymphocytes # (Manual) PT INR ABG pO2 ABG HCO3 ABG Base Excess ABG Hemoglobin VBG pH Oxyhemoglobin Sodium Potassium Chloride Carbon Dioxide BUN Creatinine Glucose POC Glucose 132 H 130 H Hemoglobin A1c Lactic Acid Calcium Phosphorus Magnesium Alkaline Phosphatase C-Reactive Protein Total Protein Albumin Vancomycin Trough Crossmatch 04/26/21 04/26/21 04/26/21 05:02 05:03 06:06 WBC RBC Hgb Hct MCV MCH RDW Plt Count Lymph % (Auto) Seg Neutrophils % Seg Neuts % (Manual) Lymphocytes % (Manual) Nucleated RBC % Seg Neutrophils # Lymphocytes # (Manual) PT INR ABG pO2 ABG HCO3 ABG Base Excess ABG Hemoglobin VBG pH Oxyhemoglobin Sodium Potassium Chloride 114.8 H Carbon Dioxide 14 L BUN 22 H Creatinine Glucose 129 H POC Glucose 115 H 129 H Hemoglobin A1c Lactic Acid Calcium Phosphorus Magnesium Alkaline Phosphatase C-Reactive Protein Total Protein Albumin Vancomycin Trough Crossmatch 04/26/21 04/26/21 04/26/21 06:53 07:58 09:09 WBC RBC Hgb Hct MCV MCH RDW Plt Count Lymph % (Auto) Seg Neutrophils % Seg Neuts % (Manual) Lymphocytes % (Manual) Nucleated RBC % Seg Neutrophils # Lymphocytes # (Manual) PT INR ABG pO2 ABG HCO3 ABG Base Excess ABG Hemoglobin VBG pH Oxyhemoglobin Sodium Potassium Chloride Carbon Dioxide BUN Creatinine Glucose POC Glucose 121 H 124 H 125 H Hemoglobin A1c Lactic Acid Calcium Phosphorus Magnesium Alkaline Phosphatase C-Reactive Protein Total Protein Albumin Vancomycin Trough Crossmatch 04/26/21 04/26/21 04/26/21 10:05 10:52 12:00 WBC RBC Hgb Hct MCV MCH RDW Plt Count Lymph % (Auto) Seg Neutrophils % Seg Neuts % (Manual) Lymphocytes % (Manual) Nucleated RBC % Seg Neutrophils # Lymphocytes # (Manual) PT INR ABG pO2 ABG HCO3 ABG Base Excess ABG Hemoglobin VBG pH Oxyhemoglobin Sodium Potassium Chloride Carbon Dioxide BUN Creatinine Glucose POC Glucose 131 H 129 H 126 H Hemoglobin A1c Lactic Acid Calcium Phosphorus Magnesium Alkaline Phosphatase C-Reactive Protein Total Protein Albumin Vancomycin Trough Crossmatch 04/26/21 04/26/21 04/26/21 13:17 14:06 14:11 WBC RBC Hgb Hct MCV MCH RDW Plt Count Lymph % (Auto) Seg Neutrophils % Seg Neuts % (Manual) Lymphocytes % (Manual) Nucleated RBC % Seg Neutrophils # Lymphocytes # (Manual) PT INR ABG pO2 ABG HCO3 ABG Base Excess ABG Hemoglobin VBG pH Oxyhemoglobin Sodium Potassium 5.3 H D Chloride 112.2 H Carbon Dioxide 14 L BUN 22 H Creatinine Glucose 116 H POC Glucose 130 H 132 H Hemoglobin A1c Lactic Acid Calcium Phosphorus Magnesium 2.40 H Alkaline Phosphatase C-Reactive Protein Total Protein Albumin Vancomycin Trough Crossmatch 04/26/21 04/26/21 04/26/21 15:07 15:20 16:05 WBC RBC Hgb Hct MCV MCH RDW Plt Count Lymph % (Auto) Seg Neutrophils % Seg Neuts % (Manual) Lymphocytes % (Manual) Nucleated RBC % Seg Neutrophils # Lymphocytes # (Manual) PT INR ABG pO2 ABG HCO3 ABG Base Excess ABG Hemoglobin VBG pH Oxyhemoglobin Sodium Potassium Chloride 112.4 H Carbon Dioxide 13 L BUN 22 H Creatinine Glucose 143 H POC Glucose 130 H 156 H Hemoglobin A1c Lactic Acid Calcium Phosphorus Magnesium Alkaline Phosphatase C-Reactive Protein Total Protein Albumin Vancomycin Trough Crossmatch 04/26/21 04/26/21 04/27/21 17:55 19:27 00:02 WBC RBC Hgb Hct MCV MCH RDW Plt Count Lymph % (Auto) Seg Neutrophils % Seg Neuts % (Manual) Lymphocytes % (Manual) Nucleated RBC % Seg Neutrophils # Lymphocytes # (Manual) PT INR ABG pO2 ABG HCO3 ABG Base Excess ABG Hemoglobin VBG pH Oxyhemoglobin Sodium Potassium Chloride Carbon Dioxide BUN Creatinine Glucose POC Glucose 194 H 261 H Hemoglobin A1c Lactic Acid Calcium Phosphorus Magnesium Alkaline Phosphatase C-Reactive Protein Total Protein Albumin Vancomycin Trough 38.2 H Crossmatch 04/27/21 04/27/21 04/27/21 04:03 04:03 05:33 WBC RBC 3.20 L Hgb 8.1 L Hct 25.1 L MCV 78 L MCH 25 L RDW Plt Count Lymph % (Auto) Seg Neutrophils % Seg Neuts % (Manual) Lymphocytes % (Manual) Nucleated RBC % Seg Neutrophils # Lymphocytes # (Manual) PT INR ABG pO2 ABG HCO3 ABG Base Excess ABG Hemoglobin VBG pH Oxyhemoglobin Sodium Potassium Chloride 112.4 H Carbon Dioxide 12 L BUN 30 H Creatinine Glucose 330 H POC Glucose 311 H Hemoglobin A1c Lactic Acid Calcium Phosphorus Magnesium Alkaline Phosphatase C-Reactive Protein Total Protein Albumin Vancomycin Trough Crossmatch 04/27/21 04/27/21 04/27/21 09:51 13:15 16:43 WBC RBC Hgb Hct MCV MCH RDW Plt Count Lymph % (Auto) Seg Neutrophils % Seg Neuts % (Manual) Lymphocytes % (Manual) Nucleated RBC % Seg Neutrophils # Lymphocytes # (Manual) PT INR ABG pO2 ABG HCO3 ABG Base Excess ABG Hemoglobin VBG pH Oxyhemoglobin Sodium Potassium Chloride Carbon Dioxide BUN Creatinine Glucose POC Glucose 335 H 291 H 218 H Hemoglobin A1c Lactic Acid Calcium Phosphorus Magnesium Alkaline Phosphatase C-Reactive Protein Total Protein Albumin Vancomycin Trough Crossmatch 04/27/21 04/27/21 04/28/21 18:10 22:08 02:15 WBC RBC Hgb Hct MCV MCH RDW Plt Count Lymph % (Auto) Seg Neutrophils % Seg Neuts % (Manual) Lymphocytes % (Manual) Nucleated RBC % Seg Neutrophils # Lymphocytes # (Manual) PT INR ABG pO2 ABG HCO3 ABG Base Excess ABG Hemoglobin VBG pH Oxyhemoglobin Sodium Potassium Chloride Carbon Dioxide BUN Creatinine Glucose POC Glucose 177 H 136 H 152 H Hemoglobin A1c Lactic Acid Calcium Phosphorus Magnesium Alkaline Phosphatase C-Reactive Protein Total Protein Albumin Vancomycin Trough Crossmatch 04/28/21 04/28/21 04/28/21 04:41 04:41 06:03 WBC RBC 3.50 L Hgb 8.9 L Hct 27.3 L MCV 78 L MCH 26 L RDW Plt Count Lymph % (Auto) Seg Neutrophils % Seg Neuts % (Manual) Lymphocytes % (Manual) Nucleated RBC % Seg Neutrophils # Lymphocytes # (Manual) PT INR ABG pO2 ABG HCO3 ABG Base Excess ABG Hemoglobin VBG pH Oxyhemoglobin Sodium Potassium Chloride 113.5 H Carbon Dioxide 16 L BUN 37 H Creatinine Glucose 167 H POC Glucose 174 H Hemoglobin A1c Lactic Acid Calcium Phosphorus Magnesium Alkaline Phosphatase C-Reactive Protein Total Protein Albumin Vancomycin Trough Crossmatch 04/28/21 04/28/21 04/28/21 08:42 11:34 17:15 WBC RBC Hgb Hct MCV MCH RDW Plt Count Lymph % (Auto) Seg Neutrophils % Seg Neuts % (Manual) Lymphocytes % (Manual) Nucleated RBC % Seg Neutrophils # Lymphocytes # (Manual) PT INR ABG pO2 ABG HCO3 ABG Base Excess ABG Hemoglobin VBG pH Oxyhemoglobin Sodium Potassium Chloride Carbon Dioxide BUN Creatinine Glucose POC Glucose 212 H 228 H 236 H Hemoglobin A1c Lactic Acid Calcium Phosphorus Magnesium Alkaline Phosphatase C-Reactive Protein Total Protein Albumin Vancomycin Trough Crossmatch 04/28/21 04/29/21 04/29/21 21:58 01:55 04:00 WBC 11.7 H RBC 3.35 L Hgb 8.5 L Hct 26.4 L MCV MCH 25 L RDW Plt Count Lymph % (Auto) Seg Neutrophils % Seg Neuts % (Manual) Lymphocytes % (Manual) Nucleated RBC % Seg Neutrophils # Lymphocytes # (Manual) PT INR ABG pO2 ABG HCO3 ABG Base Excess ABG Hemoglobin VBG pH Oxyhemoglobin Sodium Potassium Chloride Carbon Dioxide BUN Creatinine Glucose POC Glucose 208 H 137 H Hemoglobin A1c Lactic Acid Calcium Phosphorus Magnesium Alkaline Phosphatase C-Reactive Protein Total Protein Albumin Vancomycin Trough Crossmatch 04/29/21 04/29/21 04/29/21 04:00 05:16 11:02 WBC RBC Hgb Hct MCV MCH RDW Plt Count Lymph % (Auto) Seg Neutrophils % Seg Neuts % (Manual) Lymphocytes % (Manual) Nucleated RBC % Seg Neutrophils # Lymphocytes # (Manual) PT INR ABG pO2 ABG HCO3 ABG Base Excess ABG Hemoglobin VBG pH Oxyhemoglobin Sodium 146 H Potassium Chloride 112.4 H Carbon Dioxide BUN 41 H Creatinine Glucose 115 H POC Glucose 114 H 144 H Hemoglobin A1c Lactic Acid Calcium Phosphorus Magnesium Alkaline Phosphatase C-Reactive Protein Total Protein Albumin Vancomycin Trough Crossmatch 04/30/21 04/30/21 04/30/21 00:23 04:41 04:41 WBC 14.4 H RBC 3.12 L Hgb 7.8 L Hct 24.7 L MCV MCH 25 L RDW Plt Count 138 L Lymph % (Auto) Seg Neutrophils % Seg Neuts % (Manual) Lymphocytes % (Manual) Nucleated RBC % Seg Neutrophils # Lymphocytes # (Manual) PT INR ABG pO2 ABG HCO3 ABG Base Excess ABG Hemoglobin VBG pH Oxyhemoglobin Sodium Potassium Chloride 108.0 H Carbon Dioxide BUN 42 H Creatinine Glucose 215 H POC Glucose 126 H Hemoglobin A1c Lactic Acid Calcium Phosphorus Magnesium Alkaline Phosphatase 171 H C-Reactive Protein Total Protein 6.1 L Albumin 1.4 L Vancomycin Trough Crossmatch 04/30/21 04/30/21 04/30/21 05:22 11:55 17:36 WBC RBC Hgb Hct MCV MCH RDW Plt Count Lymph % (Auto) Seg Neutrophils % Seg Neuts % (Manual) Lymphocytes % (Manual) Nucleated RBC % Seg Neutrophils # Lymphocytes # (Manual) PT INR ABG pO2 ABG HCO3 ABG Base Excess ABG Hemoglobin VBG pH Oxyhemoglobin Sodium Potassium Chloride Carbon Dioxide BUN Creatinine Glucose POC Glucose 196 H 224 H 196 H Hemoglobin A1c Lactic Acid Calcium Phosphorus Magnesium Alkaline Phosphatase C-Reactive Protein Total Protein Albumin Vancomycin Trough Crossmatch 05/01/21 05/01/21 05/01/21 04:01 05:37 05:37 WBC 16.9 H RBC 2.97 L Hgb 7.4 L Hct 23.1 L MCV 78 L MCH 25 L RDW Plt Count Lymph % (Auto) Seg Neutrophils % Seg Neuts % (Manual) Lymphocytes % (Manual) Nucleated RBC % Seg Neutrophils # Lymphocytes # (Manual) PT INR ABG pO2 ABG HCO3 ABG Base Excess ABG Hemoglobin VBG pH Oxyhemoglobin Sodium Potassium Chloride 108.4 H Carbon Dioxide BUN 41 H Creatinine Glucose 124 H POC Glucose 122 H Hemoglobin A1c Lactic Acid Calcium 8.0 L Phosphorus Magnesium Alkaline Phosphatase C-Reactive Protein Total Protein Albumin Vancomycin Trough Crossmatch 05/01/21 05/01/21 05/01/21 06:27 13:45 16:40 WBC RBC Hgb Hct MCV MCH RDW Plt Count Lymph % (Auto) Seg Neutrophils % Seg Neuts % (Manual) Lymphocytes % (Manual) Nucleated RBC % Seg Neutrophils # Lymphocytes # (Manual) PT INR ABG pO2 ABG HCO3 ABG Base Excess ABG Hemoglobin VBG pH Oxyhemoglobin Sodium Potassium Chloride Carbon Dioxide BUN Creatinine Glucose POC Glucose 126 H 231 H 266 H Hemoglobin A1c Lactic Acid Calcium Phosphorus Magnesium Alkaline Phosphatase C-Reactive Protein Total Protein Albumin Vancomycin Trough Crossmatch 05/01/21 05/02/21 05/02/21 23:16 05:43 11:27 WBC RBC Hgb Hct MCV MCH RDW Plt Count Lymph % (Auto) Seg Neutrophils % Seg Neuts % (Manual) Lymphocytes % (Manual) Nucleated RBC % Seg Neutrophils # Lymphocytes # (Manual) PT INR ABG pO2 ABG HCO3 ABG Base Excess ABG Hemoglobin VBG pH Oxyhemoglobin Sodium Potassium Chloride Carbon Dioxide BUN Creatinine Glucose POC Glucose 192 H 236 H 284 H Hemoglobin A1c Lactic Acid Calcium Phosphorus Magnesium Alkaline Phosphatase C-Reactive Protein Total Protein Albumin Vancomycin Trough Crossmatch 05/02/21 05/02/21 05/03/21 16:52 23:20 06:16 WBC RBC Hgb Hct MCV MCH RDW Plt Count Lymph % (Auto) Seg Neutrophils % Seg Neuts % (Manual) Lymphocytes % (Manual) Nucleated RBC % Seg Neutrophils # Lymphocytes # (Manual) PT INR ABG pO2 ABG HCO3 ABG Base Excess ABG Hemoglobin VBG pH Oxyhemoglobin Sodium Potassium Chloride Carbon Dioxide BUN Creatinine Glucose POC Glucose 170 H 124 H 147 H Hemoglobin A1c Lactic Acid Calcium Phosphorus Magnesium Alkaline Phosphatase C-Reactive Protein Total Protein Albumin Vancomycin Trough Crossmatch 05/03/21 05/03/21 05/03/21 07:05 07:05 11:46 WBC 14.3 H RBC 2.82 L Hgb 6.8 L Hct 22.7 L MCV MCH 24 L RDW Plt Count Lymph % (Auto) 11.8 L Seg Neutrophils % 83.3 H Seg Neuts % (Manual) Lymphocytes % (Manual) Nucleated RBC % Seg Neutrophils # 11.9 H Lymphocytes # (Manual) PT INR ABG pO2 ABG HCO3 ABG Base Excess ABG Hemoglobin VBG pH Oxyhemoglobin Sodium Potassium Chloride Carbon Dioxide BUN 39 H Creatinine Glucose 163 H POC Glucose 134 H Hemoglobin A1c Lactic Acid Calcium Phosphorus Magnesium Alkaline Phosphatase C-Reactive Protein Total Protein Albumin Vancomycin Trough Crossmatch 05/03/21 05/03/21 05/03/21 17:11 18:00 19:46 WBC RBC Hgb Hct MCV MCH RDW Plt Count Lymph % (Auto) Seg Neutrophils % Seg Neuts % (Manual) Lymphocytes % (Manual) Nucleated RBC % Seg Neutrophils # Lymphocytes # (Manual) PT INR ABG pO2 ABG HCO3 ABG Base Excess ABG Hemoglobin VBG pH Oxyhemoglobin Sodium Potassium Chloride Carbon Dioxide BUN Creatinine Glucose POC Glucose 129 H 128 H Hemoglobin A1c Lactic Acid Calcium Phosphorus Magnesium Alkaline Phosphatase C-Reactive Protein Total Protein Albumin Vancomycin Trough Crossmatch See Detail 05/03/21 05/04/21 05/04/21 22:00 08:06 11:19 WBC RBC Hgb Hct MCV MCH RDW Plt Count Lymph % (Auto) Seg Neutrophils % Seg Neuts % (Manual) Lymphocytes % (Manual) Nucleated RBC % Seg Neutrophils # Lymphocytes # (Manual) PT INR ABG pO2 ABG HCO3 ABG Base Excess ABG Hemoglobin VBG pH Oxyhemoglobin Sodium Potassium Chloride Carbon Dioxide BUN Creatinine Glucose POC Glucose 144 H 337 H 383 H Hemoglobin A1c Lactic Acid Calcium Phosphorus Magnesium Alkaline Phosphatase C-Reactive Protein Total Protein Albumin Vancomycin Trough Crossmatch 05/04/21 05/04/21 05/05/21 17:43 23:01 06:05 WBC RBC Hgb Hct MCV MCH RDW Plt Count Lymph % (Auto) Seg Neutrophils % Seg Neuts % (Manual) Lymphocytes % (Manual) Nucleated RBC % Seg Neutrophils # Lymphocytes # (Manual) PT INR ABG pO2 ABG HCO3 ABG Base Excess ABG Hemoglobin VBG pH Oxyhemoglobin Sodium Potassium Chloride Carbon Dioxide BUN Creatinine Glucose POC Glucose 316 H 320 H 395 H Hemoglobin A1c Lactic Acid Calcium Phosphorus Magnesium Alkaline Phosphatase C-Reactive Protein Total Protein Albumin Vancomycin Trough Crossmatch 05/05/21 05/05/21 05/05/21 06:15 06:15 11:38 WBC RBC 2.56 L Hgb 6.8 L 6.9 L Hct 21.4 L 22.7 L MCV MCH 27 L RDW Plt Count 442 H Lymph % (Auto) Seg Neutrophils % 76.5 H Seg Neuts % (Manual) Lymphocytes % (Manual) Nucleated RBC % Seg Neutrophils # Lymphocytes # (Manual) PT INR ABG pO2 ABG HCO3 ABG Base Excess ABG Hemoglobin VBG pH Oxyhemoglobin Sodium Potassium Chloride Carbon Dioxide BUN 52 H Creatinine Glucose 430 H POC Glucose Hemoglobin A1c Lactic Acid Calcium Phosphorus Magnesium Alkaline Phosphatase C-Reactive Protein Total Protein Albumin Vancomycin Trough Crossmatch 05/05/21 05/05/21 05/06/21 11:47 23:07 06:44 WBC RBC Hgb Hct MCV MCH RDW Plt Count Lymph % (Auto) Seg Neutrophils % Seg Neuts % (Manual) Lymphocytes % (Manual) Nucleated RBC % Seg Neutrophils # Lymphocytes # (Manual) PT INR ABG pO2 ABG HCO3 ABG Base Excess ABG Hemoglobin VBG pH Oxyhemoglobin Sodium Potassium Chloride Carbon Dioxide BUN Creatinine Glucose POC Glucose 307 H 141 H 147 H Hemoglobin A1c Lactic Acid Calcium Phosphorus Magnesium Alkaline Phosphatase C-Reactive Protein Total Protein Albumin Vancomycin Trough Crossmatch 05/06/21 05/06/21 05/06/21 07:52 12:27 17:02 WBC RBC Hgb 7.0 L Hct 21.8 L MCV MCH RDW Plt Count Lymph % (Auto) Seg Neutrophils % Seg Neuts % (Manual) Lymphocytes % (Manual) Nucleated RBC % Seg Neutrophils # Lymphocytes # (Manual) PT INR ABG pO2 ABG HCO3 ABG Base Excess ABG Hemoglobin VBG pH Oxyhemoglobin Sodium Potassium Chloride Carbon Dioxide BUN Creatinine Glucose POC Glucose 200 H 135 H Hemoglobin A1c Lactic Acid Calcium Phosphorus Magnesium Alkaline Phosphatase C-Reactive Protein Total Protein Albumin Vancomycin Trough Crossmatch 05/06/21 05/07/21 05/07/21 23:03 08:02 10:49 WBC RBC Hgb 7.4 L Hct 23.7 L MCV MCH RDW Plt Count Lymph % (Auto) Seg Neutrophils % Seg Neuts % (Manual) Lymphocytes % (Manual) Nucleated RBC % Seg Neutrophils # Lymphocytes # (Manual) PT INR ABG pO2 ABG HCO3 ABG Base Excess ABG Hemoglobin VBG pH Oxyhemoglobin Sodium Potassium Chloride Carbon Dioxide BUN Creatinine Glucose POC Glucose 150 H 255 H Hemoglobin A1c Lactic Acid Calcium Phosphorus Magnesium Alkaline Phosphatase C-Reactive Protein Total Protein Albumin Vancomycin Trough Crossmatch 05/07/21 05/07/21 05/07/21 13:27 18:03 Unknown WBC RBC 2.66 L Hgb 6.9 L Hct 22.3 L MCV MCH 26 L RDW 15.4 H Plt Count 449 H Lymph % (Auto) Seg Neutrophils % 70.7 H Seg Neuts % (Manual) Lymphocytes % (Manual) Nucleated RBC % Seg Neutrophils # Lymphocytes # (Manual) PT INR ABG pO2 ABG HCO3 ABG Base Excess ABG Hemoglobin VBG pH Oxyhemoglobin Sodium Potassium Chloride Carbon Dioxide BUN Creatinine Glucose POC Glucose 149 H 127 H Hemoglobin A1c Lactic Acid Calcium Phosphorus Magnesium Alkaline Phosphatase C-Reactive Protein Total Protein Albumin Vancomycin Trough Crossmatch 05/08/21 05/08/21 05/08/21 06:10 07:51 11:55 WBC RBC Hgb Hct MCV MCH RDW Plt Count Lymph % (Auto) Seg Neutrophils % Seg Neuts % (Manual) Lymphocytes % (Manual) Nucleated RBC % Seg Neutrophils # Lymphocytes # (Manual) PT INR ABG pO2 ABG HCO3 ABG Base Excess ABG Hemoglobin VBG pH Oxyhemoglobin Sodium Potassium Chloride Carbon Dioxide BUN Creatinine Glucose POC Glucose 190 H 194 H 197 H Hemoglobin A1c Lactic Acid Calcium Phosphorus Magnesium Alkaline Phosphatase C-Reactive Protein Total Protein Albumin Vancomycin Trough Crossmatch 05/08/21 05/08/21 05/08/21 12:25 12:25 18:35 WBC RBC 2.42 L Hgb 6.6 L Hct 20.1 L MCV MCH 27 L RDW 15.3 H Plt Count 452 H Lymph % (Auto) Seg Neutrophils % Seg Neuts % (Manual) Lymphocytes % (Manual) Nucleated RBC % Seg Neutrophils # Lymphocytes # (Manual) PT INR ABG pO2 ABG HCO3 ABG Base Excess ABG Hemoglobin VBG pH Oxyhemoglobin Sodium Potassium Chloride Carbon Dioxide BUN 27 H Creatinine Glucose 216 H POC Glucose 195 H Hemoglobin A1c Lactic Acid Calcium 7.9 L Phosphorus Magnesium Alkaline Phosphatase C-Reactive Protein Total Protein Albumin Vancomycin Trough Crossmatch 05/08/21 05/09/21 05/09/21 23:45 01:39 02:57 WBC RBC Hgb 6.6 L Hct 20.7 L MCV MCH RDW Plt Count Lymph % (Auto) Seg Neutrophils % Seg Neuts % (Manual) Lymphocytes % (Manual) Nucleated RBC % Seg Neutrophils # Lymphocytes # (Manual) PT INR ABG pO2 ABG HCO3 ABG Base Excess ABG Hemoglobin VBG pH Oxyhemoglobin Sodium Potassium Chloride Carbon Dioxide BUN Creatinine Glucose POC Glucose 286 H Hemoglobin A1c Lactic Acid Calcium Phosphorus Magnesium Alkaline Phosphatase C-Reactive Protein Total Protein Albumin Vancomycin Trough Crossmatch See Detail 05/09/21 05/09/21 05/09/21 04:51 07:34 07:34 WBC RBC 2.46 L Hgb 6.3 L Hct 20.6 L MCV MCH 26 L RDW 15.5 H Plt Count 505 H Lymph % (Auto) Seg Neutrophils % Seg Neuts % (Manual) Lymphocytes % (Manual) Nucleated RBC % Seg Neutrophils # Lymphocytes # (Manual) PT INR ABG pO2 ABG HCO3 ABG Base Excess ABG Hemoglobin VBG pH Oxyhemoglobin Sodium Potassium Chloride Carbon Dioxide BUN 24 H Creatinine Glucose 307 H POC Glucose 266 H Hemoglobin A1c Lactic Acid Calcium 7.7 L Phosphorus Magnesium Alkaline Phosphatase C-Reactive Protein Total Protein Albumin Vancomycin Trough Crossmatch 05/09/21 05/09/21 05/10/21 12:20 16:01 05:34 WBC RBC Hgb Hct MCV MCH RDW Plt Count Lymph % (Auto) Seg Neutrophils % Seg Neuts % (Manual) Lymphocytes % (Manual) Nucleated RBC % Seg Neutrophils # Lymphocytes # (Manual) PT INR ABG pO2 ABG HCO3 ABG Base Excess ABG Hemoglobin VBG pH Oxyhemoglobin Sodium Potassium Chloride Carbon Dioxide BUN Creatinine Glucose POC Glucose 249 H 166 H 203 H Hemoglobin A1c Lactic Acid Calcium Phosphorus Magnesium Alkaline Phosphatase C-Reactive Protein Total Protein Albumin Vancomycin Trough Crossmatch 05/10/21 05/10/21 05/10/21 06:30 16:11 23:11 WBC RBC 2.62 L Hgb 6.8 L Hct 21.8 L MCV MCH 26 L RDW 15.6 H Plt Count 489 H Lymph % (Auto) Seg Neutrophils % Seg Neuts % (Manual) Lymphocytes % (Manual) Nucleated RBC % Seg Neutrophils # Lymphocytes # (Manual) PT INR ABG pO2 ABG HCO3 ABG Base Excess ABG Hemoglobin VBG pH Oxyhemoglobin Sodium Potassium Chloride Carbon Dioxide BUN Creatinine Glucose POC Glucose 210 H 134 H Hemoglobin A1c Lactic Acid Calcium Phosphorus Magnesium Alkaline Phosphatase C-Reactive Protein Total Protein Albumin Vancomycin Trough Crossmatch 05/11/21 05/11/21 05/11/21 05:29 12:07 18:11 WBC RBC Hgb Hct MCV MCH RDW Plt Count Lymph % (Auto) Seg Neutrophils % Seg Neuts % (Manual) Lymphocytes % (Manual) Nucleated RBC % Seg Neutrophils # Lymphocytes # (Manual) PT INR ABG pO2 ABG HCO3 ABG Base Excess ABG Hemoglobin VBG pH Oxyhemoglobin Sodium Potassium Chloride Carbon Dioxide BUN Creatinine Glucose POC Glucose 144 H 226 H 140 H Hemoglobin A1c Lactic Acid Calcium Phosphorus Magnesium Alkaline Phosphatase C-Reactive Protein Total Protein Albumin Vancomycin Trough Crossmatch 05/11/21 05/11/21 05/12/21 23:54 Unknown 10:01 WBC RBC 2.65 L Hgb 7.0 L Hct 22.1 L MCV MCH 26 L RDW 15.9 H Plt Count 518 H Lymph % (Auto) Seg Neutrophils % Seg Neuts % (Manual) Lymphocytes % (Manual) Nucleated RBC % Seg Neutrophils # Lymphocytes # (Manual) PT INR ABG pO2 ABG HCO3 ABG Base Excess ABG Hemoglobin VBG pH Oxyhemoglobin Sodium Potassium Chloride Carbon Dioxide BUN Creatinine Glucose POC Glucose 116 H 237 H Hemoglobin A1c Lactic Acid Calcium Phosphorus Magnesium Alkaline Phosphatase C-Reactive Protein Total Protein Albumin Vancomycin Trough Crossmatch 05/12/21 05/12/21 05/13/21 13:01 17:23 05:40 WBC RBC Hgb Hct MCV MCH RDW Plt Count Lymph % (Auto) Seg Neutrophils % Seg Neuts % (Manual) Lymphocytes % (Manual) Nucleated RBC % Seg Neutrophils # Lymphocytes # (Manual) PT INR ABG pO2 ABG HCO3 ABG Base Excess ABG Hemoglobin VBG pH Oxyhemoglobin Sodium Potassium Chloride Carbon Dioxide BUN Creatinine Glucose POC Glucose 227 H 158 H 126 H Hemoglobin A1c Lactic Acid Calcium Phosphorus Magnesium Alkaline Phosphatase C-Reactive Protein Total Protein Albumin Vancomycin Trough Crossmatch 05/13/21 05/13/21 05/13/21 09:16 09:16 11:50 WBC RBC 2.49 L Hgb 6.8 L Hct 20.7 L MCV MCH 27 L RDW 15.8 H Plt Count 535 H Lymph % (Auto) Seg Neutrophils % Seg Neuts % (Manual) Lymphocytes % (Manual) Nucleated RBC % Seg Neutrophils # Lymphocytes # (Manual) PT INR ABG pO2 ABG HCO3 ABG Base Excess ABG Hemoglobin VBG pH Oxyhemoglobin Sodium 135 L Potassium Chloride 97.0 L Carbon Dioxide BUN 25 H Creatinine Glucose 197 H POC Glucose 231 H Hemoglobin A1c Lactic Acid Calcium 7.8 L Phosphorus Magnesium Alkaline Phosphatase C-Reactive Protein Total Protein Albumin Vancomycin Trough Crossmatch 05/13/21 05/13/21 05/14/21 13:20 16:59 05:00 WBC 11.4 H RBC 2.80 L Hgb 7.7 L Hct 23.3 L MCV MCH 27 L RDW 16.0 H Plt Count 507 H Lymph % (Auto) Seg Neutrophils % Seg Neuts % (Manual) Lymphocytes % (Manual) Nucleated RBC % Seg Neutrophils # Lymphocytes # (Manual) PT INR ABG pO2 ABG HCO3 ABG Base Excess ABG Hemoglobin VBG pH Oxyhemoglobin Sodium Potassium Chloride Carbon Dioxide BUN Creatinine Glucose POC Glucose 130 H Hemoglobin A1c Lactic Acid Calcium Phosphorus Magnesium Alkaline Phosphatase C-Reactive Protein Total Protein Albumin Vancomycin Trough Crossmatch See Detail 05/14/21 05/14/21 05/14/21 05:00 05:34 11:59 WBC RBC Hgb Hct MCV MCH RDW Plt Count Lymph % (Auto) Seg Neutrophils % Seg Neuts % (Manual) Lymphocytes % (Manual) Nucleated RBC % Seg Neutrophils # Lymphocytes # (Manual) PT INR ABG pO2 ABG HCO3 ABG Base Excess ABG Hemoglobin VBG pH Oxyhemoglobin Sodium 135 L Potassium Chloride Carbon Dioxide BUN 24 H Creatinine Glucose 134 H POC Glucose 128 H 179 H Hemoglobin A1c Lactic Acid Calcium 8.0 L Phosphorus Magnesium Alkaline Phosphatase C-Reactive Protein Total Protein Albumin Vancomycin Trough Crossmatch 05/14/21 05/15/21 05/15/21 23:48 04:51 04:58 WBC 12.1 H RBC 2.80 L Hgb 7.2 L Hct 23.4 L MCV MCH 26 L RDW 16.1 H Plt Count 537 H Lymph % (Auto) Seg Neutrophils % Seg Neuts % (Manual) Lymphocytes % (Manual) Nucleated RBC % Seg Neutrophils # Lymphocytes # (Manual) PT INR ABG pO2 ABG HCO3 ABG Base Excess ABG Hemoglobin VBG pH Oxyhemoglobin Sodium Potassium Chloride Carbon Dioxide BUN Creatinine Glucose POC Glucose 171 H 220 H Hemoglobin A1c Lactic Acid Calcium Phosphorus Magnesium Alkaline Phosphatase C-Reactive Protein Total Protein Albumin Vancomycin Trough Crossmatch 05/15/21 05/15/21 05/15/21 05:53 09:02 10:48 WBC RBC Hgb Hct MCV MCH RDW Plt Count Lymph % (Auto) Seg Neutrophils % Seg Neuts % (Manual) Lymphocytes % (Manual) Nucleated RBC % Seg Neutrophils # Lymphocytes # (Manual) PT INR ABG pO2 ABG HCO3 ABG Base Excess ABG Hemoglobin VBG pH Oxyhemoglobin Sodium Potassium Chloride Carbon Dioxide BUN Creatinine Glucose POC Glucose 222 H 196 H 179 H Hemoglobin A1c Lactic Acid Calcium Phosphorus Magnesium Alkaline Phosphatase C-Reactive Protein Total Protein Albumin Vancomycin Trough Crossmatch 05/15/21 05/15/21 05/15/21 13:04 15:46 16:20 WBC RBC Hgb Hct MCV MCH RDW Plt Count Lymph % (Auto) Seg Neutrophils % Seg Neuts % (Manual) Lymphocytes % (Manual) Nucleated RBC % Seg Neutrophils # Lymphocytes # (Manual) PT 15.8 H INR 1.14 H ABG pO2 ABG HCO3 ABG Base Excess ABG Hemoglobin VBG pH Oxyhemoglobin Sodium Potassium Chloride Carbon Dioxide BUN Creatinine Glucose POC Glucose 49 L 122 H Hemoglobin A1c Lactic Acid Calcium Phosphorus Magnesium Alkaline Phosphatase C-Reactive Protein Total Protein Albumin Vancomycin Trough Crossmatch 05/15/21 05/16/21 05/16/21 22:50 00:01 05:49 WBC RBC Hgb Hct MCV MCH RDW Plt Count Lymph % (Auto) Seg Neutrophils % Seg Neuts % (Manual) Lymphocytes % (Manual) Nucleated RBC % Seg Neutrophils # Lymphocytes # (Manual) PT INR ABG pO2 ABG HCO3 ABG Base Excess ABG Hemoglobin VBG pH Oxyhemoglobin Sodium Potassium Chloride Carbon Dioxide BUN Creatinine Glucose POC Glucose 63 L 143 H 144 H Hemoglobin A1c Lactic Acid Calcium Phosphorus Magnesium Alkaline Phosphatase C-Reactive Protein Total Protein Albumin Vancomycin Trough Crossmatch 05/16/21 05/16/21 05/16/21 10:09 10:09 12:59 WBC 12.1 H RBC 3.03 L Hgb 7.6 L Hct 25.8 L MCV MCH 25 L RDW 16.5 H Plt Count 544 H Lymph % (Auto) Seg Neutrophils % Seg Neuts % (Manual) Lymphocytes % (Manual) Nucleated RBC % Seg Neutrophils # Lymphocytes # (Manual) PT INR ABG pO2 ABG HCO3 ABG Base Excess ABG Hemoglobin VBG pH Oxyhemoglobin Sodium 136 L Potassium Chloride Carbon Dioxide BUN 19 H Creatinine Glucose 174 H POC Glucose 174 H Hemoglobin A1c Lactic Acid Calcium 8.1 L Phosphorus Magnesium Alkaline Phosphatase C-Reactive Protein Total Protein Albumin Vancomycin Trough Crossmatch 05/16/21 05/16/21 05/17/21 16:19 21:07 05:39 WBC RBC Hgb Hct MCV MCH RDW Plt Count Lymph % (Auto) Seg Neutrophils % Seg Neuts % (Manual) Lymphocytes % (Manual) Nucleated RBC % Seg Neutrophils # Lymphocytes # (Manual) PT INR ABG pO2 ABG HCO3 ABG Base Excess ABG Hemoglobin VBG pH Oxyhemoglobin Sodium Potassium Chloride Carbon Dioxide BUN Creatinine Glucose POC Glucose 196 H 155 H 150 H Hemoglobin A1c Lactic Acid Calcium Phosphorus Magnesium Alkaline Phosphatase C-Reactive Protein Total Protein Albumin Vancomycin Trough Crossmatch 05/17/21 05/17/21 05/17/21 12:21 16:59 21:35 WBC RBC Hgb Hct MCV MCH RDW Plt Count Lymph % (Auto) Seg Neutrophils % Seg Neuts % (Manual) Lymphocytes % (Manual) Nucleated RBC % Seg Neutrophils # Lymphocytes # (Manual) PT INR ABG pO2 ABG HCO3 ABG Base Excess ABG Hemoglobin VBG pH Oxyhemoglobin Sodium Potassium Chloride Carbon Dioxide BUN Creatinine Glucose POC Glucose 159 H 169 H 157 H Hemoglobin A1c Lactic Acid Calcium Phosphorus Magnesium Alkaline Phosphatase C-Reactive Protein Total Protein Albumin Vancomycin Trough Crossmatch 05/18/21 05/18/21 05/18/21 05:10 05:10 05:26 WBC RBC 2.94 L Hgb 7.7 L Hct 24.5 L MCV MCH 26 L RDW 16.3 H Plt Count 523 H Lymph % (Auto) Seg Neutrophils % Seg Neuts % (Manual) Lymphocytes % (Manual) Nucleated RBC % Seg Neutrophils # Lymphocytes # (Manual) PT INR ABG pO2 ABG HCO3 ABG Base Excess ABG Hemoglobin VBG pH Oxyhemoglobin Sodium Potassium Chloride Carbon Dioxide BUN Creatinine Glucose 235 H POC Glucose 209 H Hemoglobin A1c Lactic Acid Calcium 7.9 L Phosphorus Magnesium Alkaline Phosphatase C-Reactive Protein Total Protein Albumin Vancomycin Trough Crossmatch 05/18/21 05/18/21 05/18/21 07:53 10:46 15:41 WBC RBC Hgb Hct MCV MCH RDW Plt Count Lymph % (Auto) Seg Neutrophils % Seg Neuts % (Manual) Lymphocytes % (Manual) Nucleated RBC % Seg Neutrophils # Lymphocytes # (Manual) PT INR ABG pO2 ABG HCO3 ABG Base Excess ABG Hemoglobin VBG pH Oxyhemoglobin Sodium Potassium Chloride Carbon Dioxide BUN Creatinine Glucose POC Glucose 174 H 222 H 206 H Hemoglobin A1c Lactic Acid Calcium Phosphorus Magnesium Alkaline Phosphatase C-Reactive Protein Total Protein Albumin Vancomycin Trough Crossmatch 05/19/21 05/19/21 05/19/21 00:03 05:29 07:39 WBC RBC Hgb Hct MCV MCH RDW Plt Count Lymph % (Auto) Seg Neutrophils % Seg Neuts % (Manual) Lymphocytes % (Manual) Nucleated RBC % Seg Neutrophils # Lymphocytes # (Manual) PT INR ABG pO2 ABG HCO3 ABG Base Excess ABG Hemoglobin VBG pH Oxyhemoglobin Sodium Potassium Chloride Carbon Dioxide BUN Creatinine Glucose POC Glucose 113 H 129 H 158 H Hemoglobin A1c Lactic Acid Calcium Phosphorus Magnesium Alkaline Phosphatase C-Reactive Protein Total Protein Albumin Vancomycin Trough Crossmatch 05/19/21 05/19/21 05/20/21 10:36 15:45 00:12 WBC RBC Hgb Hct MCV MCH RDW Plt Count Lymph % (Auto) Seg Neutrophils % Seg Neuts % (Manual) Lymphocytes % (Manual) Nucleated RBC % Seg Neutrophils # Lymphocytes # (Manual) PT INR ABG pO2 ABG HCO3 ABG Base Excess ABG Hemoglobin VBG pH Oxyhemoglobin Sodium Potassium Chloride Carbon Dioxide BUN Creatinine Glucose POC Glucose 199 H 156 H 115 H Hemoglobin A1c Lactic Acid Calcium Phosphorus Magnesium Alkaline Phosphatase C-Reactive Protein Total Protein Albumin Vancomycin Trough Crossmatch 05/20/21 05/20/21 05/20/21 05:40 15:58 21:20 WBC RBC Hgb Hct MCV MCH RDW Plt Count Lymph % (Auto) Seg Neutrophils % Seg Neuts % (Manual) Lymphocytes % (Manual) Nucleated RBC % Seg Neutrophils # Lymphocytes # (Manual) PT INR ABG pO2 ABG HCO3 ABG Base Excess ABG Hemoglobin VBG pH Oxyhemoglobin Sodium Potassium Chloride Carbon Dioxide BUN Creatinine Glucose POC Glucose 115 H 110 H 166 H Hemoglobin A1c Lactic Acid Calcium Phosphorus Magnesium Alkaline Phosphatase C-Reactive Protein Total Protein Albumin Vancomycin Trough Crossmatch 05/21/21 05/21/21 05/21/21 08:42 12:44 16:52 WBC RBC Hgb Hct MCV MCH RDW Plt Count Lymph % (Auto) Seg Neutrophils % Seg Neuts % (Manual) Lymphocytes % (Manual) Nucleated RBC % Seg Neutrophils # Lymphocytes # (Manual) PT INR ABG pO2 ABG HCO3 ABG Base Excess ABG Hemoglobin VBG pH Oxyhemoglobin Sodium Potassium Chloride Carbon Dioxide BUN Creatinine Glucose POC Glucose 154 H 168 H 190 H Hemoglobin A1c Lactic Acid Calcium Phosphorus Magnesium Alkaline Phosphatase C-Reactive Protein Total Protein Albumin Vancomycin Trough Crossmatch 05/21/21 21:01 WBC RBC Hgb Hct MCV MCH RDW Plt Count Lymph % (Auto) Seg Neutrophils % Seg Neuts % (Manual) Lymphocytes % (Manual) Nucleated RBC % Seg Neutrophils # Lymphocytes # (Manual) PT INR ABG pO2 ABG HCO3 ABG Base Excess ABG Hemoglobin VBG pH Oxyhemoglobin Sodium Potassium Chloride Carbon Dioxide BUN Creatinine Glucose POC Glucose 220 H Hemoglobin A1c Lactic Acid Calcium Phosphorus Magnesium Alkaline Phosphatase C-Reactive Protein Total Protein Albumin Vancomycin Trough Crossmatch Allied health notes reviewed: nursing
[2021-05-21] MEDS: SENNOSIDES 8.6 MG TAB PO SCH (22:13)
[2021-05-22] MEDS: FREE WATER PO SCH ×5 (00:05→18:52)
[2021-05-22] MEDS: INSULIN LISPRO 100 UNIT/ML SUB-Q SCH ×5 (01:05→18:45)
[2021-05-22] MEDS: HEPARIN 5,000 UNIT/1 ML VIAL SUB-Q SCH ×2 (06:48→14:24)
[2021-05-22] MEDS ORDERED: hydrALAZINE 20 MG/1 ML INJ IV ONE (06:55)
[2021-05-22] MEDS: hydrALAZINE 20 MG/1 ML INJ IV PRN (06:58)
[2021-05-22] MEDS: METOCLOPRAMIDE 10 MG/10 ML ORAL LIQD FEEDTUBE SCH ×3 (09:12→18:48)
[2021-05-22] MEDS: INSULIN NPH/REGULAR 70/30 INJ SUB-Q SCH ×2 (09:12→18:43)
[2021-05-22] MEDS: LANSOPRAZOLE 30 MG SOLUTAB FEEDTUBE SCH (09:12)
[2021-05-22] MEDS: CALCIUM CARBONATE 500 MG TAB CHEW PO SCH (09:12)
[2021-05-22 12:11] VITALS: BP 151/79
[2021-05-22] MEDS ORDERED: amLODIPine 10 MG TAB PO SCH (15:00)
--- NOTE | 2021-05-22 17:53 | Progress Note ---
Assessment and Plan 51 YO Female with DM, OA, Medication Noncompliance, Obesity presents to ED for evaluation. Patient reports "I feel sick". Patient states she had experienced weakness, elevated blood glucose levels, nausea, polydipsia, polyuria, as well a s diminished oral intake over the past 1 week with worsening symptoms over the last 2 days. Patient acknowledges noncompliance with oral antihyperglycemic therapy. Patient states that her weight has gotten progressively worse and and that she is "too weak to walk". EMS was notified and upon arrival the patient was found to be in distress and subsequent transported to [facility] for further care and evaluation of the aforementioned symptoms. The patient was seen and evaluated in the emergency department. All lab and imaging studies reviewed. The patient was found to have diabetic ketoacidosis, metabolic encephalopathy, as well as metabolic acidosis, and volume depletion. Patient mated to ICU and initiated on DKA protocol. Critical care team consulted in ED. Patient has fever, chills, chest pain, palpitation, productive cough, skin rash, recent contact, known exposure to COVID-1 Patients sullivan virus PCR is negative. Patient is awake, alert. Patient is on room air. O2 saturation 91%. Denies chest pain, shortness of breath or cough Patients temp 99 F. No leukocytosis. Blood pressure 151/79, Pulse 92, respirations 22. 05/18/21 Hgb is 7.7. Patient received a blood transfusion. Chest xray done 04/29/21 reported Low lung volumes with bibasilar opacities/atelectasis persists, unchanged. No pneumothorax. Chest xray done 05/08/21 reported table, mild increased densities and atele ctasis in the lower lungs. No pneumothorax. Chest xray done 05/13/21 reported Increased interstitial prominence in bilateral lungs. Elevation right hemidiaphragm with right lower lung atelectasis No pneumothorax. Patient had right knee surgery. Patient is on Cefazolin, Albuterol aerosol treatments and Prevacid and S/C Heparin. - Patient Problems (1) High anion gap metabolic acidosis Current Visit: Yes Status: Acute Plan to address problem: Improving. 05/18/21 anion gap is 16 (2) DKA (diabetic ketoacidosis) Current Visit: Yes Status: Acute Qualifiers: Diabetes mellitus type: type 1 Plan to address problem: Improving. Management as primary care. (3) Metabolic encephalopathy Current Visit: Yes Status: Acute Plan to address problem: Management as primary care and neurology. (4) Abscess of right foot Current Visit: No Status: Acute Plan to address problem: Management as primary care and ID Patient on Cefazolin (5) Diabetic ulcer of right foot associated with diabetes mellitus due to underlying condition, with fat layer exposed Current Visit: No Status: Acute Plan to address problem: Management as per primary care. (6) Hypertension Current Visit: No Status: Chronic Plan to address problem: Management as primary care. Subjective Date of service: 05/22/21 Principal diagnosis: HAGMA; DKA; AMS; Obesity; Osteoarthritis; Hypercalcemia Interval history: 51 YO Female with DM, OA, Medication Noncompliance, Obesity presents to ED for evaluation. Patient reports "I feel sick". Patient states she had experienced weakness, elevated blood glucose levels, nausea, polydipsia, polyuria, as well as diminished oral intake over the past 1 week with worsening symptoms over the last 2 days. Patient acknowledges noncompliance with oral antihyperglycemic therapy. Patient states that her weight has gotten progressively worse and and that she is "too weak to walk". EMS was notified and upon arrival the patient was found to be in distress and subsequent transported to [facility] for further care and evaluation of the aforementioned symptoms. The patient was seen and evaluated in the emergency department. All lab and imaging studies reviewed. The patient was found to have diabetic ketoacidosis, metabolic encephalopathy, as well as metabolic acidosis, and volume depletion. Patient mated to ICU and initiated on DKA protocol. Critical care team consulted in ED. Patient has fever, chills, chest pain, palpitation, productive cough, skin rash, recent contact, known exposure to COVID-1 Patients sullivan virus PCR is negative. Patient is awake, alert. Patient is on room air. O2 saturation 91%. Denies chest pain, shortness of breath or cough Patients temp 99 F. No leukocytosis. Blood pressure 151/79, Pulse 92, respirations 22. 05/18/21 Hgb is 7.7. Patient received a blood transfusion. Chest xray done 04/29/21 reported Low lung volumes with bibasilar opacities/atelectasis persists, unchanged. No pneumothorax. Chest xray done 05/08/21 reported table, mild increased densities and atelectasis in the lower lungs. No pneumothorax. Chest xray done 05/13/21 reported Increased interstitial prominence in bilateral lungs. Elevation right hemidiaphragm with right lower lung atelectasis No pneumothorax. Patient had right knee surgery. Patient is on Cefazolin, Albuterol aerosol treatments and Prevacid and S/C Heparin. Objective Vital Signs - 12hr 05/22/21 05/22/21 08:42 10:55 Temperature 99.0 F Pulse Rate 92 H Respiratory 22 Rate Blood Pressure 151/79 O2 Sat by Pulse 98 91 Oximetry Constitutional: no acute distress, alert Eyes: non-icteric ENT: oropharynx moist Neck: supple, no lymphadenopathy, no JVD Effort: normal Ascultation: Bilateral: diminished breath sounds Percussion: Bilateral: not dull Cardiovascular: regular rate and rhythm, other (S1,S2) Gastrointestinal: hypoactive bowel sounds, soft, non-tender, non-distended (protuberant) Integumentary: rash (perineal) Extremities: no cyanosis, no edema, pulses normal, no ischemia or petechiae, other (Right knee surgery.) Neurologic: normal mental status, non-focal exam, pupils equal and round, other Psychiatric: mood appropriate, affect normal CBC and BMP: 05/18/21 05:10 05/18/21 05:10 ABG, PT/INR, D-dimer: ABG ABG pH 7.426 pH Units (7.350-7.450) 04/25/21 11:20 ABG pCO2 25.3 mm Hg 04/25/21 11:20 ABG pO2 73.2 mm Hg (80.0-90.0) L 04/25/21 11:20 ABG O2 Saturation 96.9 % (95.0-99.0) 04/25/21 11:20 PT/INR, D-dimer PT 15.8 Sec. (12.2-14.9) H 05/15/21 13:04 INR 1.14 (0.87-1.13) H 05/15/21 13:04 Abnormal lab findings: Abnormal Labs 04/23/21 04/23/21 04/23/21 10:33 10:33 10:33 WBC RBC Hgb Hct MCV MCH 26 L RDW Plt Count Lymph % (Auto) Seg Neutrophils % Seg Neuts % (Manual) Lymphocytes % (Manual) 7.0 L Nucleated RBC % 2.0 H Seg Neutrophils # Lymphocytes # (Manual) 0.5 L PT INR ABG pO2 ABG HCO3 ABG Base Excess ABG Hemoglobin VBG pH 7.180 L* Oxyhemoglobin Sodium 122 L Potassium 3.0 L Chloride 84.8 L Carbon Dioxide 6 L* BUN 49 H Creatinine 1.4 H Glucose 775 H* POC Glucose Hemoglobin A1c Lactic Acid Calcium 12.2 H* Phosphorus Magnesium Alkaline Phosphatase 130 H C-Reactive Protein Total Protein Albumin 2.9 L Vancomycin Trough Crossmatch 04/23/21 04/23/21 04/23/21 10:40 12:44 14:01 WBC RBC Hgb Hct MCV MCH RDW Plt Count Lymph % (Auto) Seg Neutrophils % Seg Neuts % (Manual) Lymphocytes % (Manual) Nucleated RBC % Seg Neutrophils # Lymphocytes # (Manual) PT INR ABG pO2 ABG HCO3 ABG Base Excess ABG Hemoglobin VBG pH Oxyhemoglobin Sodium Potassium Chloride Carbon Dioxide BUN Creatinine Glucose POC Glucose > 600 H 550 H Hemoglobin A1c Lactic Acid Calcium Phosphorus 1.50 L Magnesium Alkaline Phosphatase C-Reactive Protein Total Protein Albumin Vancomycin Trough Crossmatch 04/23/21 04/23/21 04/23/21 14:01 14:04 14:56 WBC RBC Hgb Hct MCV MCH RDW Plt Count Lymph % (Auto) Seg Neutrophils % Seg Neuts % (Manual) Lymphocytes % (Manual) Nucleated RBC % Seg Neutrophils # Lymphocytes # (Manual) PT INR ABG pO2 ABG HCO3 ABG Base Excess ABG Hemoglobin VBG pH Oxyhemoglobin Sodium 125 L Potassium 3.0 L Chloride 89.2 L Carbon Dioxide 6 L* BUN 45 H Creatinine 1.3 H Glucose 594 H* POC Glucose 518 H 425 H Hemoglobin A1c Lactic Acid Calcium 10.9 H Phosphorus Magnesium Alkaline Phosphatase C-Reactive Protein Total Protein Albumin Vancomycin Trough Crossmatch 04/23/21 04/23/21 04/23/21 15:43 15:48 17:21 WBC RBC Hgb Hct MCV MCH RDW Plt Count Lymph % (Auto) Seg Neutrophils % Seg Neuts % (Manual) Lymphocytes % (Manual) Nucleated RBC % Seg Neutrophils # Lymphocytes # (Manual) PT INR ABG pO2 ABG HCO3 ABG Base Excess ABG Hemoglobin VBG pH Oxyhemoglobin Sodium 131 L Potassium 2.9 L* Chloride Carbon Dioxide 8 L* BUN 39 H Creatinine Glucose 434 H POC Glucose 410 H 407 H Hemoglobin A1c Lactic Acid Calcium 10.3 H Phosphorus Magnesium Alkaline Phosphatase C-Reactive Protein Total Protein Albumin Vancomycin Trough Crossmatch 04/23/21 04/23/21 04/23/21 18:07 19:13 19:54 WBC RBC Hgb Hct MCV MCH RDW Plt Count Lymph % (Auto) Seg Neutrophils % Seg Neuts % (Manual) Lymphocytes % (Manual) Nucleated RBC % Seg Neutrophils # Lymphocytes # (Manual) PT INR ABG pO2 ABG HCO3 ABG Base Excess ABG Hemoglobin VBG pH Oxyhemoglobin Sodium 131 L Potassium 3.1 L Chloride 95.9 L Carbon Dioxide 7 L* BUN 39 H Creatinine Glucose 391 H POC Glucose 428 H 350 H Hemoglobin A1c Lactic Acid Calcium 11.2 H Phosphorus Magnesium Alkaline Phosphatase C-Reactive Protein Total Protein Albumin Vancomycin Trough Crossmatch 04/23/21 04/23/21 04/23/21 19:54 20:12 20:59 WBC RBC Hgb Hct MCV MCH RDW Plt Count Lymph % (Auto) Seg Neutrophils % Seg Neuts % (Manual) Lymphocytes % (Manual) Nucleated RBC % Seg Neutrophils # Lymphocytes # (Manual) PT INR ABG pO2 ABG HCO3 ABG Base Excess ABG Hemoglobin VBG pH Oxyhemoglobin Sodium Potassium Chloride Carbon Dioxide BUN Creatinine Glucose POC Glucose 365 H 286 H Hemoglobin A1c Lactic Acid Calcium Phosphorus 1.10 L D Magnesium Alkaline Phosphatase C-Reactive Protein Total Protein Albumin Vancomycin Trough Crossmatch 04/23/21 04/23/21 04/23/21 22:05 22:23 22:59 WBC RBC Hgb Hct MCV MCH RDW Plt Count Lymph % (Auto) Seg Neutrophils % Seg Neuts % (Manual) Lymphocytes % (Manual) Nucleated RBC % Seg Neutrophils # Lymphocytes # (Manual) PT INR ABG pO2 ABG HCO3 ABG Base Excess ABG Hemoglobin VBG pH Oxyhemoglobin Sodium 135 L Potassium 3.2 L Chloride Carbon Dioxide 10 L BUN 35 H Creatinine Glucose 300 H POC Glucose 257 H 238 H Hemoglobin A1c Lactic Acid Calcium 11.6 H Phosphorus Magnesium Alkaline Phosphatase C-Reactive Protein Total Protein Albumin Vancomycin Trough Crossmatch 04/23/21 04/24/21 04/24/21 23:57 00:10 00:56 WBC RBC Hgb Hct MCV MCH RDW Plt Count Lymph % (Auto) Seg Neutrophils % Seg Neuts % (Manual) Lymphocytes % (Manual) Nucleated RBC % Seg Neutrophils # Lymphocytes # (Manual) PT INR ABG pO2 ABG HCO3 ABG Base Excess ABG Hemoglobin VBG pH Oxyhemoglobin Sodium Potassium 3.2 L Chloride Carbon Dioxide 13 L BUN 33 H Creatinine Glucose 267 H POC Glucose 223 H 254 H Hemoglobin A1c Lactic Acid Calcium 11.2 H Phosphorus 1.20 L Magnesium Alkaline Phosphatase C-Reactive Protein Total Protein Albumin Vancomycin Trough Crossmatch 04/24/21 04/24/21 04/24/21 01:58 02:58 03:57 WBC RBC Hgb Hct MCV MCH RDW Plt Count Lymph % (Auto) Seg Neutrophils % Seg Neuts % (Manual) Lymphocytes % (Manual) Nucleated RBC % Seg Neutrophils # Lymphocytes # (Manual) PT INR ABG pO2 ABG HCO3 ABG Base Excess ABG Hemoglobin VBG pH Oxyhemoglobin Sodium Potassium Chloride Carbon Dioxide BUN Creatinine Glucose POC Glucose 264 H 251 H 200 H Hemoglobin A1c Lactic Acid Calcium Phosphorus Magnesium Alkaline Phosphatase C-Reactive Protein Total Protein Albumin Vancomycin Trough Crossmatch 04/24/21 04/24/21 04/24/21 04:16 04:16 04:16 WBC RBC Hgb Hct MCV MCH 26 L RDW Plt Count Lymph % (Auto) Seg Neutrophils % Seg Neuts % (Manual) Lymphocytes % (Manual) Nucleated RBC % Seg Neutrophils # Lymphocytes # (Manual) PT INR ABG pO2 ABG HCO3 ABG Base Excess ABG Hemoglobin VBG pH Oxyhemoglobin Sodium Potassium Chloride 108.0 H Carbon Dioxide 13 L BUN 31 H Creatinine Glucose 243 H POC Glucose Hemoglobin A1c 18.3 H Lactic Acid Calcium 10.9 H Phosphorus 1.80 L D Magnesium Alkaline Phosphatase C-Reactive Protein Total Protein Albumin Vancomycin Trough Crossmatch 04/24/21 04/24/21 04/24/21 04:59 05:53 06:51 WBC RBC Hgb Hct MCV MCH RDW Plt Count Lymph % (Auto) Seg Neutrophils % Seg Neuts % (Manual) Lymphocytes % (Manual) Nucleated RBC % Seg Neutrophils # Lymphocytes # (Manual) PT INR ABG pO2 ABG HCO3 ABG Base Excess ABG Hemoglobin VBG pH Oxyhemoglobin Sodium Potassium Chloride Carbon Dioxide BUN Creatinine Glucose POC Glucose 208 H 213 H 161 H Hemoglobin A1c Lactic Acid Calcium Phosphorus Magnesium Alkaline Phosphatase C-Reactive Protein Total Protein Albumin Vancomycin Trough Crossmatch 04/24/21 04/24/21 04/24/21 07:58 09:21 10:06 WBC RBC Hgb Hct MCV MCH RDW Plt Count Lymph % (Auto) Seg Neutrophils % Seg Neuts % (Manual) Lymphocytes % (Manual) Nucleated RBC % Seg Neutrophils # Lymphocytes # (Manual) PT INR ABG pO2 ABG HCO3 ABG Base Excess ABG Hemoglobin VBG pH Oxyhemoglobin Sodium Potassium Chloride Carbon Dioxide BUN Creatinine Glucose POC Glucose 149 H 178 H 164 H Hemoglobin A1c Lactic Acid Calcium Phosphorus Magnesium Alkaline Phosphatase C-Reactive Protein Total Protein Albumin Vancomycin Trough Crossmatch 04/24/21 04/24/21 04/24/21 11:03 12:07 12:14 WBC RBC Hgb Hct MCV MCH RDW Plt Count Lymph % (Auto) Seg Neutrophils % Seg Neuts % (Manual) Lymphocytes % (Manual) Nucleated RBC % Seg Neutrophils # Lymphocytes # (Manual) PT INR ABG pO2 ABG HCO3 ABG Base Excess ABG Hemoglobin VBG pH Oxyhemoglobin Sodium Potassium 3.2 L Chloride 108.7 H Carbon Dioxide 16 L BUN 24 H Creatinine Glucose 160 H POC Glucose 157 H 142 H Hemoglobin A1c Lactic Acid Calcium 10.5 H Phosphorus 0.70 L* D Magnesium Alkaline Phosphatase C-Reactive Protein Total Protein Albumin Vancomycin Trough Crossmatch 04/24/21 04/24/21 04/24/21 12:14 13:02 14:00 WBC RBC Hgb Hct MCV MCH RDW Plt Count Lymph % (Auto) Seg Neutrophils % Seg Neuts % (Manual) Lymphocytes % (Manual) Nucleated RBC % Seg Neutrophils # Lymphocytes # (Manual) PT INR ABG pO2 ABG HCO3 ABG Base Excess ABG Hemoglobin VBG pH Oxyhemoglobin Sodium Potassium Chloride Carbon Dioxide BUN Creatinine Glucose POC Glucose 138 H 150 H Hemoglobin A1c Lactic Acid 2.50 H* Calcium Phosphorus Magnesium Alkaline Phosphatase C-Reactive Protein Total Protein Albumin Vancomycin Trough Crossmatch 04/24/21 04/24/21 04/24/21 15:14 16:07 17:11 WBC RBC Hgb Hct MCV MCH RDW Plt Count Lymph % (Auto) Seg Neutrophils % Seg Neuts % (Manual) Lymphocytes % (Manual) Nucleated RBC % Seg Neutrophils # Lymphocytes # (Manual) PT INR ABG pO2 ABG HCO3 ABG Base Excess ABG Hemoglobin VBG pH Oxyhemoglobin Sodium Potassium Chloride Carbon Dioxide BUN Creatinine Glucose POC Glucose 145 H 148 H 156 H Hemoglobin A1c Lactic Acid Calcium Phosphorus Magnesium Alkaline Phosphatase C-Reactive Protein Total Protein Albumin Vancomycin Trough Crossmatch 04/24/21 04/24/21 04/24/21 18:12 18:24 19:55 WBC RBC Hgb Hct MCV MCH RDW Plt Count Lymph % (Auto) Seg Neutrophils % Seg Neuts % (Manual) Lymphocytes % (Manual) Nucleated RBC % Seg Neutrophils # Lymphocytes # (Manual) PT INR ABG pO2 ABG HCO3 ABG Base Excess ABG Hemoglobin VBG pH Oxyhemoglobin Sodium Potassium Chloride 109.2 H Carbon Dioxide 15 L BUN 22 H Creatinine Glucose 159 H POC Glucose 153 H 176 H Hemoglobin A1c Lactic Acid Calcium Phosphorus 1.80 L D Magnesium Alkaline Phosphatase C-Reactive Protein 24.30 H Total Protein Albumin Vancomycin Trough Crossmatch 04/24/21 04/24/21 04/24/21 20:55 22:04 23:02 WBC RBC Hgb Hct MCV MCH RDW Plt Count Lymph % (Auto) Seg Neutrophils % Seg Neuts % (Manual) Lymphocytes % (Manual) Nucleated RBC % Seg Neutrophils # Lymphocytes # (Manual) PT INR ABG pO2 ABG HCO3 ABG Base Excess ABG Hemoglobin VBG pH Oxyhemoglobin Sodium Potassium Chloride Carbon Dioxide BUN Creatinine Glucose POC Glucose 146 H 169 H Hemoglobin A1c Lactic Acid 3.10 H* Calcium Phosphorus Magnesium Alkaline Phosphatase C-Reactive Protein Total Protein Albumin Vancomycin Trough Crossmatch 04/24/21 04/25/21 04/25/21 23:13 00:05 01:28 WBC RBC Hgb Hct MCV MCH RDW Plt Count Lymph % (Auto) Seg Neutrophils % Seg Neuts % (Manual) Lymphocytes % (Manual) Nucleated RBC % Seg Neutrophils # Lymphocytes # (Manual) PT INR ABG pO2 ABG HCO3 ABG Base Excess ABG Hemoglobin VBG pH Oxyhemoglobin Sodium Potassium Chloride Carbon Dioxide BUN Creatinine Glucose POC Glucose 144 H 150 H 142 H Hemoglobin A1c Lactic Acid Calcium Phosphorus Magnesium Alkaline Phosphatase C-Reactive Protein Total Protein Albumin Vancomycin Trough Crossmatch 04/25/21 04/25/21 04/25/21 02:03 03:07 04:17 WBC RBC Hgb Hct MCV MCH RDW Plt Count Lymph % (Auto) Seg Neutrophils % Seg Neuts % (Manual) Lymphocytes % (Manual) Nucleated RBC % Seg Neutrophils # Lymphocytes # (Manual) PT INR ABG pO2 ABG HCO3 ABG Base Excess ABG Hemoglobin VBG pH Oxyhemoglobin Sodium Potassium Chloride Carbon Dioxide BUN Creatinine Glucose POC Glucose 148 H 161 H 158 H Hemoglobin A1c Lactic Acid Calcium Phosphorus Magnesium Alkaline Phosphatase C-Reactive Protein Total Protein Albumin Vancomycin Trough Crossmatch 04/25/21 04/25/21 04/25/21 05:48 06:52 07:58 WBC RBC Hgb Hct MCV MCH RDW Plt Count Lymph % (Auto) Seg Neutrophils % Seg Neuts % (Manual) Lymphocytes % (Manual) Nucleated RBC % Seg Neutrophils # Lymphocytes # (Manual) PT INR ABG pO2 ABG HCO3 ABG Base Excess ABG Hemoglobin VBG pH Oxyhemoglobin Sodium Potassium Chloride Carbon Dioxide BUN Creatinine Glucose POC Glucose 136 H 137 H 143 H Hemoglobin A1c Lactic Acid Calcium Phosphorus Magnesium Alkaline Phosphatase C-Reactive Protein Total Protein Albumin Vancomycin Trough Crossmatch 04/25/21 04/25/21 04/25/21 08:10 08:10 08:10 WBC RBC Hgb 9.5 L Hct 28.8 L MCV MCH 26 L RDW Plt Count Lymph % (Auto) Seg Neutrophils % Seg Neuts % (Manual) 33.0 L Lymphocytes % (Manual) Nucleated RBC % Seg Neutrophils # Lymphocytes # (Manual) 1.1 L PT INR ABG pO2 ABG HCO3 ABG Base Excess ABG Hemoglobin VBG pH Oxyhemoglobin Sodium Potassium 3.3 L Chloride 109.0 H Carbon Dioxide 16 L BUN 23 H Creatinine Glucose 151 H POC Glucose Hemoglobin A1c Lactic Acid 2.10 H* Calcium Phosphorus 2.20 L D Magnesium 1.60 L Alkaline Phosphatase C-Reactive Protein Total Protein Albumin Vancomycin Trough Crossmatch 04/25/21 04/25/21 04/25/21 08:53 09:59 11:20 WBC RBC Hgb Hct MCV MCH RDW Plt Count Lymph % (Auto) Seg Neutrophils % Seg Neuts % (Manual) Lymphocytes % (Manual) Nucleated RBC % Seg Neutrophils # Lymphocytes # (Manual) PT INR ABG pO2 ABG HCO3 ABG Base Excess ABG Hemoglobin VBG pH Oxyhemoglobin Sodium Potassium Chloride Carbon Dioxide BUN Creatinine Glucose POC Glucose 132 H 141 H 141 H Hemoglobin A1c Lactic Acid Calcium Phosphorus Magnesium Alkaline Phosphatase C-Reactive Protein Total Protein Albumin Vancomycin Trough Crossmatch 04/25/21 04/25/21 04/25/21 11:20 12:04 12:26 WBC RBC Hgb Hct MCV MCH RDW Plt Count Lymph % (Auto) Seg Neutrophils % Seg Neuts % (Manual) Lymphocytes % (Manual) Nucleated RBC % Seg Neutrophils # Lymphocytes # (Manual) PT INR ABG pO2 73.2 L ABG HCO3 16.2 L ABG Base Excess -7.1 L ABG Hemoglobin 8.7 L VBG pH Oxyhemoglobin 94.8 L Sodium Potassium 3.4 L Chloride 109.5 H Carbon Dioxide 14 L BUN 21 H Creatinine Glucose 155 H POC Glucose 129 H Hemoglobin A1c Lactic Acid Calcium Phosphorus 1.90 L Magnesium 1.60 L Alkaline Phosphatase C-Reactive Protein Total Protein Albumin Vancomycin Trough Crossmatch 04/25/21 04/25/21 04/25/21 13:04 13:58 15:09 WBC RBC Hgb Hct MCV MCH RDW Plt Count Lymph % (Auto) Seg Neutrophils % Seg Neuts % (Manual) Lymphocytes % (Manual) Nucleated RBC % Seg Neutrophils # Lymphocytes # (Manual) PT INR ABG pO2 ABG HCO3 ABG Base Excess ABG Hemoglobin VBG pH Oxyhemoglobin Sodium Potassium Chloride Carbon Dioxide BUN Creatinine Glucose POC Glucose 135 H 140 H 134 H Hemoglobin A1c Lactic Acid Calcium Phosphorus Magnesium Alkaline Phosphatase C-Reactive Protein Total Protein Albumin Vancomycin Trough Crossmatch 04/25/21 04/25/21 04/25/21 16:00 18:56 18:58 WBC RBC Hgb Hct MCV MCH RDW Plt Count Lymph % (Auto) Seg Neutrophils % Seg Neuts % (Manual) Lymphocytes % (Manual) Nucleated RBC % Seg Neutrophils # Lymphocytes # (Manual) PT INR ABG pO2 ABG HCO3 ABG Base Excess ABG Hemoglobin VBG pH Oxyhemoglobin Sodium Potassium Chloride Carbon Dioxide BUN Creatinine Glucose POC Glucose 135 H 170 H Hemoglobin A1c Lactic Acid 2.10 H* Calcium Phosphorus Magnesium Alkaline Phosphatase C-Reactive Protein Total Protein Albumin Vancomycin Trough Crossmatch 04/25/21 04/25/21 04/25/21 18:58 19:52 20:53 WBC RBC Hgb Hct MCV MCH RDW Plt Count Lymph % (Auto) Seg Neutrophils % Seg Neuts % (Manual) Lymphocytes % (Manual) Nucleated RBC % Seg Neutrophils # Lymphocytes # (Manual) PT INR ABG pO2 ABG HCO3 ABG Base Excess ABG Hemoglobin VBG pH Oxyhemoglobin Sodium Potassium Chloride 110.1 H Carbon Dioxide 13 L BUN 23 H Creatinine Glucose 206 H POC Glucose 162 H 171 H Hemoglobin A1c Lactic Acid Calcium Phosphorus Magnesium 2.40 H Alkaline Phosphatase C-Reactive Protein Total Protein Albumin Vancomycin Trough Crossmatch 04/25/21 04/25/21 04/26/21 21:54 22:53 00:03 WBC RBC Hgb Hct MCV MCH RDW Plt Count Lymph % (Auto) Seg Neutrophils % Seg Neuts % (Manual) Lymphocytes % (Manual) Nucleated RBC % Seg Neutrophils # Lymphocytes # (Manual) PT INR ABG pO2 ABG HCO3 ABG Base Excess ABG Hemoglobin VBG pH Oxyhemoglobin Sodium Potassium Chloride Carbon Dioxide BUN Creatinine Glucose POC Glucose 139 H 140 H 129 H Hemoglobin A1c Lactic Acid Calcium Phosphorus Magnesium Alkaline Phosphatase C-Reactive Protein Total Protein Albumin Vancomycin Trough Crossmatch 04/26/21 04/26/21 04/26/21 00:38 01:00 01:56 WBC RBC Hgb Hct MCV MCH RDW Plt Count Lymph % (Auto) Seg Neutrophils % Seg Neuts % (Manual) Lymphocytes % (Manual) Nucleated RBC % Seg Neutrophils # Lymphocytes # (Manual) PT INR ABG pO2 ABG HCO3 ABG Base Excess ABG Hemoglobin VBG pH Oxyhemoglobin Sodium Potassium Chloride 112.6 H Carbon Dioxide 14 L BUN 22 H Creatinine Glucose 149 H POC Glucose 126 H 137 H Hemoglobin A1c Lactic Acid Calcium Phosphorus Magnesium 2.40 H Alkaline Phosphatase C-Reactive Protein Total Protein Albumin Vancomycin Trough Crossmatch 04/26/21 04/26/21 04/26/21 02:54 04:04 05:02 WBC RBC 3.44 L Hgb 8.9 L Hct 26.9 L MCV 78 L MCH 26 L RDW Plt Count Lymph % (Auto) Seg Neutrophils % Seg Neuts % (Manual) Lymphocytes % (Manual) Nucleated RBC % Seg Neutrophils # Lymphocytes # (Manual) PT INR ABG pO2 ABG HCO3 ABG Base Excess ABG Hemoglobin VBG pH Oxyhemoglobin Sodium Potassium Chloride Carbon Dioxide BUN Creatinine Glucose POC Glucose 132 H 130 H Hemoglobin A1c Lactic Acid Calcium Phosphorus Magnesium Alkaline Phosphatase C-Reactive Protein Total Protein Albumin Vancomycin Trough Crossmatch 04/26/21 04/26/21 04/26/21 05:02 05:03 06:06 WBC RBC Hgb Hct MCV MCH RDW Plt Count Lymph % (Auto) Seg Neutrophils % Seg Neuts % (Manual) Lymphocytes % (Manual) Nucleated RBC % Seg Neutrophils # Lymphocytes # (Manual) PT INR ABG pO2 ABG HCO3 ABG Base Excess ABG Hemoglobin VBG pH Oxyhemoglobin Sodium Potassium Chloride 114.8 H Carbon Dioxide 14 L BUN 22 H Creatinine Glucose 129 H POC Glucose 115 H 129 H Hemoglobin A1c Lactic Acid Calcium Phosphorus Magnesium Alkaline Phosphatase C-Reactive Protein Total Protein Albumin Vancomycin Trough Crossmatch 04/26/21 04/26/21 04/26/21 06:53 07:58 09:09 WBC RBC Hgb Hct MCV MCH RDW Plt Count Lymph % (Auto) Seg Neutrophils % Seg Neuts % (Manual) Lymphocytes % (Manual) Nucleated RBC % Seg Neutrophils # Lymphocytes # (Manual) PT INR ABG pO2 ABG HCO3 ABG Base Excess ABG Hemoglobin VBG pH Oxyhemoglobin Sodium Potassium Chloride Carbon Dioxide BUN Creatinine Glucose POC Glucose 121 H 124 H 125 H Hemoglobin A1c Lactic Acid Calcium Phosphorus Magnesium Alkaline Phosphatase C-Reactive Protein Total Protein Albumin Vancomycin Trough Crossmatch 04/26/21 04/26/21 04/26/21 10:05 10:52 12:00 WBC RBC Hgb Hct MCV MCH RDW Plt Count Lymph % (Auto) Seg Neutrophils % Seg Neuts % (Manual) Lymphocytes % (Manual) Nucleated RBC % Seg Neutrophils # Lymphocytes # (Manual) PT INR ABG pO2 ABG HCO3 ABG Base Excess ABG Hemoglobin VBG pH Oxyhemoglobin Sodium Potassium Chloride Carbon Dioxide BUN Creatinine Glucose POC Glucose 131 H 129 H 126 H Hemoglobin A1c Lactic Acid Calcium Phosphorus Magnesium Alkaline Phosphatase C-Reactive Protein Total Protein Albumin Vancomycin Trough Crossmatch 04/26/21 04/26/21 04/26/21 13:17 14:06 14:11 WBC RBC Hgb Hct MCV MCH RDW Plt Count Lymph % (Auto) Seg Neutrophils % Seg Neuts % (Manual) Lymphocytes % (Manual) Nucleated RBC % Seg Neutrophils # Lymphocytes # (Manual) PT INR ABG pO2 ABG HCO3 ABG Base Excess ABG Hemoglobin VBG pH Oxyhemoglobin Sodium Potassium 5.3 H D Chloride 112.2 H Carbon Dioxide 14 L BUN 22 H Creatinine Glucose 116 H POC Glucose 130 H 132 H Hemoglobin A1c Lactic Acid Calcium Phosphorus Magnesium 2.40 H Alkaline Phosphatase C-Reactive Protein Total Protein Albumin Vancomycin Trough Crossmatch 04/26/21 04/26/21 04/26/21 15:07 15:20 16:05 WBC RBC Hgb Hct MCV MCH RDW Plt Count Lymph % (Auto) Seg Neutrophils % Seg Neuts % (Manual) Lymphocytes % (Manual) Nucleated RBC % Seg Neutrophils # Lymphocytes # (Manual) PT INR ABG pO2 ABG HCO3 ABG Base Excess ABG Hemoglobin VBG pH Oxyhemoglobin Sodium Potassium Chloride 112.4 H Carbon Dioxide 13 L BUN 22 H Creatinine Glucose 143 H POC Glucose 130 H 156 H Hemoglobin A1c Lactic Acid Calcium Phosphorus Magnesium Alkaline Phosphatase C-Reactive Protein Total Protein Albumin Vancomycin Trough Crossmatch 04/26/21 04/26/21 04/27/21 17:55 19:27 00:02 WBC RBC Hgb Hct MCV MCH RDW Plt Count Lymph % (Auto) Seg Neutrophils % Seg Neuts % (Manual) Lymphocytes % (Manual) Nucleated RBC % Seg Neutrophils # Lymphocytes # (Manual) PT INR ABG pO2 ABG HCO3 ABG Base Excess ABG Hemoglobin VBG pH Oxyhemoglobin Sodium Potassium Chloride Carbon Dioxide BUN Creatinine Glucose POC Glucose 194 H 261 H Hemoglobin A1c Lactic Acid Calcium Phosphorus Magnesium Alkaline Phosphatase C-Reactive Protein Total Protein Albumin Vancomycin Trough 38.2 H Crossmatch 04/27/21 04/27/21 04/27/21 04:03 04:03 05:33 WBC RBC 3.20 L Hgb 8.1 L Hct 25.1 L MCV 78 L MCH 25 L RDW Plt Count Lymph % (Auto) Seg Neutrophils % Seg Neuts % (Manual) Lymphocytes % (Manual) Nucleated RBC % Seg Neutrophils # Lymphocytes # (Manual) PT INR ABG pO2 ABG HCO3 ABG Base Excess ABG Hemoglobin VBG pH Oxyhemoglobin Sodium Potassium Chloride 112.4 H Carbon Dioxide 12 L BUN 30 H Creatinine Glucose 330 H POC Glucose 311 H Hemoglobin A1c Lactic Acid Calcium Phosphorus Magnesium Alkaline Phosphatase C-Reactive Protein Total Protein Albumin Vancomycin Trough Crossmatch 04/27/21 04/27/21 04/27/21 09:51 13:15 16:43 WBC RBC Hgb Hct MCV MCH RDW Plt Count Lymph % (Auto) Seg Neutrophils % Seg Neuts % (Manual) Lymphocytes % (Manual) Nucleated RBC % Seg Neutrophils # Lymphocytes # (Manual) PT INR ABG pO2 ABG HCO3 ABG Base Excess ABG Hemoglobin VBG pH Oxyhemoglobin Sodium Potassium Chloride Carbon Dioxide BUN Creatinine Glucose POC Glucose 335 H 291 H 218 H Hemoglobin A1c Lactic Acid Calcium Phosphorus Magnesium Alkaline Phosphatase C-Reactive Protein Total Protein Albumin Vancomycin Trough Crossmatch 04/27/21 04/27/21 04/28/21 18:10 22:08 02:15 WBC RBC Hgb Hct MCV MCH RDW Plt Count Lymph % (Auto) Seg Neutrophils % Seg Neuts % (Manual) Lymphocytes % (Manual) Nucleated RBC % Seg Neutrophils # Lymphocytes # (Manual) PT INR ABG pO2 ABG HCO3 ABG Base Excess ABG Hemoglobin VBG pH Oxyhemoglobin Sodium Potassium Chloride Carbon Dioxide BUN Creatinine Glucose POC Glucose 177 H 136 H 152 H Hemoglobin A1c Lactic Acid Calcium Phosphorus Magnesium Alkaline Phosphatase C-Reactive Protein Total Protein Albumin Vancomycin Trough Crossmatch 04/28/21 04/28/21 04/28/21 04:41 04:41 06:03 WBC RBC 3.50 L Hgb 8.9 L Hct 27.3 L MCV 78 L MCH 26 L RDW Plt Count Lymph % (Auto) Seg Neutrophils % Seg Neuts % (Manual) Lymphocytes % (Manual) Nucleated RBC % Seg Neutrophils # Lymphocytes # (Manual) PT INR ABG pO2 ABG HCO3 ABG Base Excess ABG Hemoglobin VBG pH Oxyhemoglobin Sodium Potassium Chloride 113.5 H Carbon Dioxide 16 L BUN 37 H Creatinine Glucose 167 H POC Glucose 174 H Hemoglobin A1c Lactic Acid Calcium Phosphorus Magnesium Alkaline Phosphatase C-Reactive Protein Total Protein Albumin Vancomycin Trough Crossmatch 04/28/21 04/28/21 04/28/21 08:42 11:34 17:15 WBC RBC Hgb Hct MCV MCH RDW Plt Count Lymph % (Auto) Seg Neutrophils % Seg Neuts % (Manual) Lymphocytes % (Manual) Nucleated RBC % Seg Neutrophils # Lymphocytes # (Manual) PT INR ABG pO2 ABG HCO3 ABG Base Excess ABG Hemoglobin VBG pH Oxyhemoglobin Sodium Potassium Chloride Carbon Dioxide BUN Creatinine Glucose POC Glucose 212 H 228 H 236 H Hemoglobin A1c Lactic Acid Calcium Phosphorus Magnesium Alkaline Phosphatase C-Reactive Protein Total Protein Albumin Vancomycin Trough Crossmatch 04/28/21 04/29/21 04/29/21 21:58 01:55 04:00 WBC 11.7 H RBC 3.35 L Hgb 8.5 L Hct 26.4 L MCV MCH 25 L RDW Plt Count Lymph % (Auto) Seg Neutrophils % Seg Neuts % (Manual) Lymphocytes % (Manual) Nucleated RBC % Seg Neutrophils # Lymphocytes # (Manual) PT INR ABG pO2 ABG HCO3 ABG Base Excess ABG Hemoglobin VBG pH Oxyhemoglobin Sodium Potassium Chloride Carbon Dioxide BUN Creatinine Glucose POC Glucose 208 H 137 H Hemoglobin A1c Lactic Acid Calcium Phosphorus Magnesium Alkaline Phosphatase C-Reactive Protein Total Protein Albumin Vancomycin Trough Crossmatch 04/29/21 04/29/21 04/29/21 04:00 05:16 11:02 WBC RBC Hgb Hct MCV MCH RDW Plt Count Lymph % (Auto) Seg Neutrophils % Seg Neuts % (Manual) Lymphocytes % (Manual) Nucleated RBC % Seg Neutrophils # Lymphocytes # (Manual) PT INR ABG pO2 ABG HCO3 ABG Base Excess ABG Hemoglobin VBG pH Oxyhemoglobin Sodium 146 H Potassium Chloride 112.4 H Carbon Dioxide BUN 41 H Creatinine Glucose 115 H POC Glucose 114 H 144 H Hemoglobin A1c Lactic Acid Calcium Phosphorus Magnesium Alkaline Phosphatase C-Reactive Protein Total Protein Albumin Vancomycin Trough Crossmatch 04/30/21 04/30/21 04/30/21 00:23 04:41 04:41 WBC 14.4 H RBC 3.12 L Hgb 7.8 L Hct 24.7 L MCV MCH 25 L RDW Plt Count 138 L Lymph % (Auto) Seg Neutrophils % Seg Neuts % (Manual) Lymphocytes % (Manual) Nucleated RBC % Seg Neutrophils # Lymphocytes # (Manual) PT INR ABG pO2 ABG HCO3 ABG Base Excess ABG Hemoglobin VBG pH Oxyhemoglobin Sodium Potassium Chloride 108.0 H Carbon Dioxide BUN 42 H Creatinine Glucose 215 H POC Glucose 126 H Hemoglobin A1c Lactic Acid Calcium Phosphorus Magnesium Alkaline Phosphatase 171 H C-Reactive Protein Total Protein 6.1 L Albumin 1.4 L Vancomycin Trough Crossmatch 04/30/21 04/30/21 04/30/21 05:22 11:55 17:36 WBC RBC Hgb Hct MCV MCH RDW Plt Count Lymph % (Auto) Seg Neutrophils % Seg Neuts % (Manual) Lymphocytes % (Manual) Nucleated RBC % Seg Neutrophils # Lymphocytes # (Manual) PT INR ABG pO2 ABG HCO3 ABG Base Excess ABG Hemoglobin VBG pH Oxyhemoglobin Sodium Potassium Chloride Carbon Dioxide BUN Creatinine Glucose POC Glucose 196 H 224 H 196 H Hemoglobin A1c Lactic Acid Calcium Phosphorus Magnesium Alkaline Phosphatase C-Reactive Protein Total Protein Albumin Vancomycin Trough Crossmatch 05/01/21 05/01/21 05/01/21 04:01 05:37 05:37 WBC 16.9 H RBC 2.97 L Hgb 7.4 L Hct 23.1 L MCV 78 L MCH 25 L RDW Plt Count Lymph % (Auto) Seg Neutrophils % Seg Neuts % (Manual) Lymphocytes % (Manual) Nucleated RBC % Seg Neutrophils # Lymphocytes # (Manual) PT INR ABG pO2 ABG HCO3 ABG Base Excess ABG Hemoglobin VBG pH Oxyhemoglobin Sodium Potassium Chloride 108.4 H Carbon Dioxide BUN 41 H Creatinine Glucose 124 H POC Glucose 122 H Hemoglobin A1c Lactic Acid Calcium 8.0 L Phosphorus Magnesium Alkaline Phosphatase C-Reactive Protein Total Protein Albumin Vancomycin Trough Crossmatch 05/01/21 05/01/21 05/01/21 06:27 13:45 16:40 WBC RBC Hgb Hct MCV MCH RDW Plt Count Lymph % (Auto) Seg Neutrophils % Seg Neuts % (Manual) Lymphocytes % (Manual) Nucleated RBC % Seg Neutrophils # Lymphocytes # (Manual) PT INR ABG pO2 ABG HCO3 ABG Base Excess ABG Hemoglobin VBG pH Oxyhemoglobin Sodium Potassium Chloride Carbon Dioxide BUN Creatinine Glucose POC Glucose 126 H 231 H 266 H Hemoglobin A1c Lactic Acid Calcium Phosphorus Magnesium Alkaline Phosphatase C-Reactive Protein Total Protein Albumin Vancomycin Trough Crossmatch 05/01/21 05/02/21 05/02/21 23:16 05:43 11:27 WBC RBC Hgb Hct MCV MCH RDW Plt Count Lymph % (Auto) Seg Neutrophils % Seg Neuts % (Manual) Lymphocytes % (Manual) Nucleated RBC % Seg Neutrophils # Lymphocytes # (Manual) PT INR ABG pO2 ABG HCO3 ABG Base Excess ABG Hemoglobin VBG pH Oxyhemoglobin Sodium Potassium Chloride Carbon Dioxide BUN Creatinine Glucose POC Glucose 192 H 236 H 284 H Hemoglobin A1c Lactic Acid Calcium Phosphorus Magnesium Alkaline Phosphatase C-Reactive Protein Total Protein Albumin Vancomycin Trough Crossmatch 05/02/21 05/02/21 05/03/21 16:52 23:20 06:16 WBC RBC Hgb Hct MCV MCH RDW Plt Count Lymph % (Auto) Seg Neutrophils % Seg Neuts % (Manual) Lymphocytes % (Manual) Nucleated RBC % Seg Neutrophils # Lymphocytes # (Manual) PT INR ABG pO2 ABG HCO3 ABG Base Excess ABG Hemoglobin VBG pH Oxyhemoglobin Sodium Potassium Chloride Carbon Dioxide BUN Creatinine Glucose POC Glucose 170 H 124 H 147 H Hemoglobin A1c Lactic Acid Calcium Phosphorus Magnesium Alkaline Phosphatase C-Reactive Protein Total Protein Albumin Vancomycin Trough Crossmatch 05/03/21 05/03/21 05/03/21 07:05 07:05 11:46 WBC 14.3 H RBC 2.82 L Hgb 6.8 L Hct 22.7 L MCV MCH 24 L RDW Plt Count Lymph % (Auto) 11.8 L Seg Neutrophils % 83.3 H Seg Neuts % (Manual) Lymphocytes % (Manual) Nucleated RBC % Seg Neutrophils # 11.9 H Lymphocytes # (Manual) PT INR ABG pO2 ABG HCO3 ABG Base Excess ABG Hemoglobin VBG pH Oxyhemoglobin Sodium Potassium Chloride Carbon Dioxide BUN 39 H Creatinine Glucose 163 H POC Glucose 134 H Hemoglobin A1c Lactic Acid Calcium Phosphorus Magnesium Alkaline Phosphatase C-Reactive Protein Total Protein Albumin Vancomycin Trough Crossmatch 05/03/21 05/03/21 05/03/21 17:11 18:00 19:46 WBC RBC Hgb Hct MCV MCH RDW Plt Count Lymph % (Auto) Seg Neutrophils % Seg Neuts % (Manual) Lymphocytes % (Manual) Nucleated RBC % Seg Neutrophils # Lymphocytes # (Manual) PT INR ABG pO2 ABG HCO3 ABG Base Excess ABG Hemoglobin VBG pH Oxyhemoglobin Sodium Potassium Chloride Carbon Dioxide BUN Creatinine Glucose POC Glucose 129 H 128 H Hemoglobin A1c Lactic Acid Calcium Phosphorus Magnesium Alkaline Phosphatase C-Reactive Protein Total Protein Albumin Vancomycin Trough Crossmatch See Detail 05/03/21 05/04/21 05/04/21 22:00 08:06 11:19 WBC RBC Hgb Hct MCV MCH RDW Plt Count Lymph % (Auto) Seg Neutrophils % Seg Neuts % (Manual) Lymphocytes % (Manual) Nucleated RBC % Seg Neutrophils # Lymphocytes # (Manual) PT INR ABG pO2 ABG HCO3 ABG Base Excess ABG Hemoglobin VBG pH Oxyhemoglobin Sodium Potassium Chloride Carbon Dioxide BUN Creatinine Glucose POC Glucose 144 H 337 H 383 H Hemoglobin A1c Lactic Acid Calcium Phosphorus Magnesium Alkaline Phosphatase C-Reactive Protein Total Protein Albumin Vancomycin Trough Crossmatch 05/04/21 05/04/21 05/05/21 17:43 23:01 06:05 WBC RBC Hgb Hct MCV MCH RDW Plt Count Lymph % (Auto) Seg Neutrophils % Seg Neuts % (Manual) Lymphocytes % (Manual) Nucleated RBC % Seg Neutrophils # Lymphocytes # (Manual) PT INR ABG pO2 ABG HCO3 ABG Base Excess ABG Hemoglobin VBG pH Oxyhemoglobin Sodium Potassium Chloride Carbon Dioxide BUN Creatinine Glucose POC Glucose 316 H 320 H 395 H Hemoglobin A1c Lactic Acid Calcium Phosphorus Magnesium Alkaline Phosphatase C-Reactive Protein Total Protein Albumin Vancomycin Trough Crossmatch 05/05/21 05/05/21 05/05/21 06:15 06:15 11:38 WBC RBC 2.56 L Hgb 6.8 L 6.9 L Hct 21.4 L 22.7 L MCV MCH 27 L RDW Plt Count 442 H Lymph % (Auto) Seg Neutrophils % 76.5 H Seg Neuts % (Manual) Lymphocytes % (Manual) Nucleated RBC % Seg Neutrophils # Lymphocytes # (Manual) PT INR ABG pO2 ABG HCO3 ABG Base Excess ABG Hemoglobin VBG pH Oxyhemoglobin Sodium Potassium Chloride Carbon Dioxide BUN 52 H Creatinine Glucose 430 H POC Glucose Hemoglobin A1c Lactic Acid Calcium Phosphorus Magnesium Alkaline Phosphatase C-Reactive Protein Total Protein Albumin Vancomycin Trough Crossmatch 05/05/21 05/05/21 05/06/21 11:47 23:07 06:44 WBC RBC Hgb Hct MCV MCH RDW Plt Count Lymph % (Auto) Seg Neutrophils % Seg Neuts % (Manual) Lymphocytes % (Manual) Nucleated RBC % Seg Neutrophils # Lymphocytes # (Manual) PT INR ABG pO2 ABG HCO3 ABG Base Excess ABG Hemoglobin VBG pH Oxyhemoglobin Sodium Potassium Chloride Carbon Dioxide BUN Creatinine Glucose POC Glucose 307 H 141 H 147 H Hemoglobin A1c Lactic Acid Calcium Phosphorus Magnesium Alkaline Phosphatase C-Reactive Protein Total Protein Albumin Vancomycin Trough Crossmatch 05/06/21 05/06/21 05/06/21 07:52 12:27 17:02 WBC RBC Hgb 7.0 L Hct 21.8 L MCV MCH RDW Plt Count Lymph % (Auto) Seg Neutrophils % Seg Neuts % (Manual) Lymphocytes % (Manual) Nucleated RBC % Seg Neutrophils # Lymphocytes # (Manual) PT INR ABG pO2 ABG HCO3 ABG Base Excess ABG Hemoglobin VBG pH Oxyhemoglobin Sodium Potassium Chloride Carbon Dioxide BUN Creatinine Glucose POC Glucose 200 H 135 H Hemoglobin A1c Lactic Acid Calcium Phosphorus Magnesium Alkaline Phosphatase C-Reactive Protein Total Protein Albumin Vancomycin Trough Crossmatch 05/06/21 05/07/21 05/07/21 23:03 08:02 10:49 WBC RBC Hgb 7.4 L Hct 23.7 L MCV MCH RDW Plt Count Lymph % (Auto) Seg Neutrophils % Seg Neuts % (Manual) Lymphocytes % (Manual) Nucleated RBC % Seg Neutrophils # Lymphocytes # (Manual) PT INR ABG pO2 ABG HCO3 ABG Base Excess ABG Hemoglobin VBG pH Oxyhemoglobin Sodium Potassium Chloride Carbon Dioxide BUN Creatinine Glucose POC Glucose 150 H 255 H Hemoglobin A1c Lactic Acid Calcium Phosphorus Magnesium Alkaline Phosphatase C-Reactive Protein Total Protein Albumin Vancomycin Trough Crossmatch 05/07/21 05/07/21 05/07/21 13:27 18:03 Unknown WBC RBC 2.66 L Hgb 6.9 L Hct 22.3 L MCV MCH 26 L RDW 15.4 H Plt Count 449 H Lymph % (Auto) Seg Neutrophils % 70.7 H Seg Neuts % (Manual) Lymphocytes % (Manual) Nucleated RBC % Seg Neutrophils # Lymphocytes # (Manual) PT INR ABG pO2 ABG HCO3 ABG Base Excess ABG Hemoglobin VBG pH Oxyhemoglobin Sodium Potassium Chloride Carbon Dioxide BUN Creatinine Glucose POC Glucose 149 H 127 H Hemoglobin A1c Lactic Acid Calcium Phosphorus Magnesium Alkaline Phosphatase C-Reactive Protein Total Protein Albumin Vancomycin Trough Crossmatch 05/08/21 05/08/21 05/08/21 06:10 07:51 11:55 WBC RBC Hgb Hct MCV MCH RDW Plt Count Lymph % (Auto) Seg Neutrophils % Seg Neuts % (Manual) Lymphocytes % (Manual) Nucleated RBC % Seg Neutrophils # Lymphocytes # (Manual) PT INR ABG pO2 ABG HCO3 ABG Base Excess ABG Hemoglobin VBG pH Oxyhemoglobin Sodium Potassium Chloride Carbon Dioxide BUN Creatinine Glucose POC Glucose 190 H 194 H 197 H Hemoglobin A1c Lactic Acid Calcium Phosphorus Magnesium Alkaline Phosphatase C-Reactive Protein Total Protein Albumin Vancomycin Trough Crossmatch 05/08/21 05/08/21 05/08/21 12:25 12:25 18:35 WBC RBC 2.42 L Hgb 6.6 L Hct 20.1 L MCV MCH 27 L RDW 15.3 H Plt Count 452 H Lymph % (Auto) Seg Neutrophils % Seg Neuts % (Manual) Lymphocytes % (Manual) Nucleated RBC % Seg Neutrophils # Lymphocytes # (Manual) PT INR ABG pO2 ABG HCO3 ABG Base Excess ABG Hemoglobin VBG pH Oxyhemoglobin Sodium Potassium Chloride Carbon Dioxide BUN 27 H Creatinine Glucose 216 H POC Glucose 195 H Hemoglobin A1c Lactic Acid Calcium 7.9 L Phosphorus Magnesium Alkaline Phosphatase C-Reactive Protein Total Protein Albumin Vancomycin Trough Crossmatch 05/08/21 05/09/21 05/09/21 23:45 01:39 02:57 WBC RBC Hgb 6.6 L Hct 20.7 L MCV MCH RDW Plt Count Lymph % (Auto) Seg Neutrophils % Seg Neuts % (Manual) Lymphocytes % (Manual) Nucleated RBC % Seg Neutrophils # Lymphocytes # (Manual) PT INR ABG pO2 ABG HCO3 ABG Base Excess ABG Hemoglobin VBG pH Oxyhemoglobin Sodium Potassium Chloride Carbon Dioxide BUN Creatinine Glucose POC Glucose 286 H Hemoglobin A1c Lactic Acid Calcium Phosphorus Magnesium Alkaline Phosphatase C-Reactive Protein Total Protein Albumin Vancomycin Trough Crossmatch See Detail 12/05/09/21 05/09/21 04:51 07:34 07:34 WBC RBC 2.46 L Hgb 6.3 L Hct 20.6 L MCV MCH 26 L RDW 15.5 H Plt Count 505 H Lymph % (Auto) Seg Neutrophils % Seg Neuts % (Manual) Lymphocytes % (Manual) Nucleated RBC % Seg Neutrophils # Lymphocytes # (Manual) PT INR ABG pO2 ABG HCO3 ABG Base Excess ABG Hemoglobin VBG pH Oxyhemoglobin Sodium Potassium Chloride Carbon Dioxide BUN 24 H Creatinine Glucose 307 H POC Glucose 266 H Hemoglobin A1c Lactic Acid Calcium 7.7 L Phosphorus Magnesium Alkaline Phosphatase C-Reactive Protein Total Protein Albumin Vancomycin Trough Crossmatch 05/09/21 05/09/21 05/10/21 12:20 16:01 05:34 WBC RBC Hgb Hct MCV MCH RDW Plt Count Lymph % (Auto) Seg Neutrophils % Seg Neuts % (Manual) Lymphocytes % (Manual) Nucleated RBC % Seg Neutrophils # Lymphocytes # (Manual) PT INR ABG pO2 ABG HCO3 ABG Base Excess ABG Hemoglobin VBG pH Oxyhemoglobin Sodium Potassium Chloride Carbon Dioxide BUN Creatinine Glucose POC Glucose 249 H 166 H 203 H Hemoglobin A1c Lactic Acid Calcium Phosphorus Magnesium Alkaline Phosphatase C-Reactive Protein Total Protein Albumin Vancomycin Trough Crossmatch 05/10/21 05/10/21 05/10/21 06:30 16:11 23:11 WBC RBC 2.62 L Hgb 6.8 L Hct 21.8 L MCV MCH 26 L RDW 15.6 H Plt Count 489 H Lymph % (Auto) Seg Neutrophils % Seg Neuts % (Manual) Lymphocytes % (Manual) Nucleated RBC % Seg Neutrophils # Lymphocytes # (Manual) PT INR ABG pO2 ABG HCO3 ABG Base Excess ABG Hemoglobin VBG pH Oxyhemoglobin Sodium Potassium Chloride Carbon Dioxide BUN Creatinine Glucose POC Glucose 210 H 134 H Hemoglobin A1c Lactic Acid Calcium Phosphorus Magnesium Alkaline Phosphatase C-Reactive Protein Total Protein Albumin Vancomycin Trough Crossmatch 05/11/21 05/11/21 05/11/21 05:29 12:07 18:11 WBC RBC Hgb Hct MCV MCH RDW Plt Count Lymph % (Auto) Seg Neutrophils % Seg Neuts % (Manual) Lymphocytes % (Manual) Nucleated RBC % Seg Neutrophils # Lymphocytes # (Manual) PT INR ABG pO2 ABG HCO3 ABG Base Excess ABG Hemoglobin VBG pH Oxyhemoglobin Sodium Potassium Chloride Carbon Dioxide BUN Creatinine Glucose POC Glucose 144 H 226 H 140 H Hemoglobin A1c Lactic Acid Calcium Phosphorus Magnesium Alkaline Phosphatase C-Reactive Protein Total Protein Albumin Vancomycin Trough Crossmatch 05/11/21 05/11/21 05/12/21 23:54 Unknown 10:01 WBC RBC 2.65 L Hgb 7.0 L Hct 22.1 L MCV MCH 26 L RDW 15.9 H Plt Count 518 H Lymph % (Auto) Seg Neutrophils % Seg Neuts % (Manual) Lymphocytes % (Manual) Nucleated RBC % Seg Neutrophils # Lymphocytes # (Manual) PT INR ABG pO2 ABG HCO3 ABG Base Excess ABG Hemoglobin VBG pH Oxyhemoglobin Sodium Potassium Chloride Carbon Dioxide BUN Creatinine Glucose POC Glucose 116 H 237 H Hemoglobin A1c Lactic Acid Calcium Phosphorus Magnesium Alkaline Phosphatase C-Reactive Protein Total Protein Albumin Vancomycin Trough Crossmatch 05/12/21 05/12/21 05/13/21 13:01 17:23 05:40 WBC RBC Hgb Hct MCV MCH RDW Plt Count Lymph % (Auto) Seg Neutrophils % Seg Neuts % (Manual) Lymphocytes % (Manual) Nucleated RBC % Seg Neutrophils # Lymphocytes # (Manual) PT INR ABG pO2 ABG HCO3 ABG Base Excess ABG Hemoglobin VBG pH Oxyhemoglobin Sodium Potassium Chloride Carbon Dioxide BUN Creatinine Glucose POC Glucose 227 H 158 H 126 H Hemoglobin A1c Lactic Acid Calcium Phosphorus Magnesium Alkaline Phosphatase C-Reactive Protein Total Protein Albumin Vancomycin Trough Crossmatch 05/13/21 05/13/21 05/13/21 09:16 09:16 11:50 WBC RBC 2.49 L Hgb 6.8 L Hct 20.7 L MCV MCH 27 L RDW 15.8 H Plt Count 535 H Lymph % (Auto) Seg Neutrophils % Seg Neuts % (Manual) Lymphocytes % (Manual) Nucleated RBC % Seg Neutrophils # Lymphocytes # (Manual) PT INR ABG pO2 ABG HCO3 ABG Base Excess ABG Hemoglobin VBG pH Oxyhemoglobin Sodium 135 L Potassium Chloride 97.0 L Carbon Dioxide BUN 25 H Creatinine Glucose 197 H POC Glucose 231 H Hemoglobin A1c Lactic Acid Calcium 7.8 L Phosphorus Magnesium Alkaline Phosphatase C-Reactive Protein Total Protein Albumin Vancomycin Trough Crossmatch 05/13/21 05/13/21 05/14/21 13:20 16:59 05:00 WBC 11.4 H RBC 2.80 L Hgb 7.7 L Hct 23.3 L MCV MCH 27 L RDW 16.0 H Plt Count 507 H Lymph % (Auto) Seg Neutrophils % Seg Neuts % (Manual) Lymphocytes % (Manual) Nucleated RBC % Seg Neutrophils # Lymphocytes # (Manual) PT INR ABG pO2 ABG HCO3 ABG Base Excess ABG Hemoglobin VBG pH Oxyhemoglobin Sodium Potassium Chloride Carbon Dioxide BUN Creatinine Glucose POC Glucose 130 H Hemoglobin A1c Lactic Acid Calcium Phosphorus Magnesium Alkaline Phosphatase C-Reactive Protein Total Protein Albumin Vancomycin Trough Crossmatch See Detail 05/14/21 05/14/21 05/14/21 05:00 05:34 11:59 WBC RBC Hgb Hct MCV MCH RDW Plt Count Lymph % (Auto) Seg Neutrophils % Seg Neuts % (Manual) Lymphocytes % (Manual) Nucleated RBC % Seg Neutrophils # Lymphocytes # (Manual) PT INR ABG pO2 ABG HCO3 ABG Base Excess ABG Hemoglobin VBG pH Oxyhemoglobin Sodium 135 L Potassium Chloride Carbon Dioxide BUN 24 H Creatinine Glucose 134 H POC Glucose 128 H 179 H Hemoglobin A1c Lactic Acid Calcium 8.0 L Phosphorus Magnesium Alkaline Phosphatase C-Reactive Protein Total Protein Albumin Vancomycin Trough Crossmatch 05/14/21 05/15/21 05/15/21 23:48 04:51 04:58 WBC 12.1 H RBC 2.80 L Hgb 7.2 L Hct 23.4 L MCV MCH 26 L RDW 16.1 H Plt Count 537 H Lymph % (Auto) Seg Neutrophils % Seg Neuts % (Manual) Lymphocytes % (Manual) Nucleated RBC % Seg Neutrophils # Lymphocytes # (Manual) PT INR ABG pO2 ABG HCO3 ABG Base Excess ABG Hemoglobin VBG pH Oxyhemoglobin Sodium Potassium Chloride Carbon Dioxide BUN Creatinine Glucose POC Glucose 171 H 220 H Hemoglobin A1c Lactic Acid Calcium Phosphorus Magnesium Alkaline Phosphatase C-Reactive Protein Total Protein Albumin Vancomycin Trough Crossmatch 05/15/21 05/15/21 05/15/21 05:53 09:02 10:48 WBC RBC Hgb Hct MCV MCH RDW Plt Count Lymph % (Auto) Seg Neutrophils % Seg Neuts % (Manual) Lymphocytes % (Manual) Nucleated RBC % Seg Neutrophils # Lymphocytes # (Manual) PT INR ABG pO2 ABG HCO3 ABG Base Excess ABG Hemoglobin VBG pH Oxyhemoglobin Sodium Potassium Chloride Carbon Dioxide BUN Creatinine Glucose POC Glucose 222 H 196 H 179 H Hemoglobin A1c Lactic Acid Calcium Phosphorus Magnesium Alkaline Phosphatase C-Reactive Protein Total Protein Albumin Vancomycin Trough Crossmatch 05/15/21 05/15/21 05/15/21 13:04 15:46 16:20 WBC RBC Hgb Hct MCV MCH RDW Plt Count Lymph % (Auto) Seg Neutrophils % Seg Neuts % (Manual) Lymphocytes % (Manual) Nucleated RBC % Seg Neutrophils # Lymphocytes # (Manual) PT 15.8 H INR 1.14 H ABG pO2 ABG HCO3 ABG Base Excess ABG Hemoglobin VBG pH Oxyhemoglobin Sodium Potassium Chloride Carbon Dioxide BUN Creatinine Glucose POC Glucose 49 L 122 H Hemoglobin A1c Lactic Acid Calcium Phosphorus Magnesium Alkaline Phosphatase C-Reactive Protein Total Protein Albumin Vancomycin Trough Crossmatch 05/15/21 05/16/21 05/16/21 22:50 00:01 05:49 WBC RBC Hgb Hct MCV MCH RDW Plt Count Lymph % (Auto) Seg Neutrophils % Seg Neuts % (Manual) Lymphocytes % (Manual) Nucleated RBC % Seg Neutrophils # Lymphocytes # (Manual) PT INR ABG pO2 ABG HCO3 ABG Base Excess ABG Hemoglobin VBG pH Oxyhemoglobin Sodium Potassium Chloride Carbon Dioxide BUN Creatinine Glucose POC Glucose 63 L 143 H 144 H Hemoglobin A1c Lactic Acid Calcium Phosphorus Magnesium Alkaline Phosphatase C-Reactive Protein Total Protein Albumin Vancomycin Trough Crossmatch 05/16/21 05/16/21 05/16/21 10:09 10:09 12:59 WBC 12.1 H RBC 3.03 L Hgb 7.6 L Hct 25.8 L MCV MCH 25 L RDW 16.5 H Plt Count 544 H Lymph % (Auto) Seg Neutrophils % Seg Neuts % (Manual) Lymphocytes % (Manual) Nucleated RBC % Seg Neutrophils # Lymphocytes # (Manual) PT INR ABG pO2 ABG HCO3 ABG Base Excess ABG Hemoglobin VBG pH Oxyhemoglobin Sodium 136 L Potassium Chloride Carbon Dioxide BUN 19 H Creatinine Glucose 174 H POC Glucose 174 H Hemoglobin A1c Lactic Acid Calcium 8.1 L Phosphorus Magnesium Alkaline Phosphatase C-Reactive Protein Total Protein Albumin Vancomycin Trough Crossmatch 05/16/21 05/16/21 05/17/21 16:19 21:07 05:39 WBC RBC Hgb Hct MCV MCH RDW Plt Count Lymph % (Auto) Seg Neutrophils % Seg Neuts % (Manual) Lymphocytes % (Manual) Nucleated RBC % Seg Neutrophils # Lymphocytes # (Manual) PT INR ABG pO2 ABG HCO3 ABG Base Excess ABG Hemoglobin VBG pH Oxyhemoglobin Sodium Potassium Chloride Carbon Dioxide BUN Creatinine Glucose POC Glucose 196 H 155 H 150 H Hemoglobin A1c Lactic Acid Calcium Phosphorus Magnesium Alkaline Phosphatase C-Reactive Protein Total Protein Albumin Vancomycin Trough Crossmatch 05/17/21 05/17/21 05/17/21 12:21 16:59 21:35 WBC RBC Hgb Hct MCV MCH RDW Plt Count Lymph % (Auto) Seg Neutrophils % Seg Neuts % (Manual) Lymphocytes % (Manual) Nucleated RBC % Seg Neutrophils # Lymphocytes # (Manual) PT INR ABG pO2 ABG HCO3 ABG Base Excess ABG Hemoglobin VBG pH Oxyhemoglobin Sodium Potassium Chloride Carbon Dioxide BUN Creatinine Glucose POC Glucose 159 H 169 H 157 H Hemoglobin A1c Lactic Acid Calcium Phosphorus Magnesium Alkaline Phosphatase C-Reactive Protein Total Protein Albumin Vancomycin Trough Crossmatch 05/18/21 05/18/21 05/18/21 05:10 05:10 05:26 WBC RBC 2.94 L Hgb 7.7 L Hct 24.5 L MCV MCH 26 L RDW 16.3 H Plt Count 523 H Lymph % (Auto) Seg Neutrophils % Seg Neuts % (Manual) Lymphocytes % (Manual) Nucleated RBC % Seg Neutrophils # Lymphocytes # (Manual) PT INR ABG pO2 ABG HCO3 ABG Base Excess ABG Hemoglobin VBG pH Oxyhemoglobin Sodium Potassium Chloride Carbon Dioxide BUN Creatinine Glucose 235 H POC Glucose 209 H Hemoglobin A1c Lactic Acid Calcium 7.9 L Phosphorus Magnesium Alkaline Phosphatase C-Reactive Protein Total Protein Albumin Vancomycin Trough Crossmatch 05/18/21 05/18/21 05/18/21 07:53 10:46 15:41 WBC RBC Hgb Hct MCV MCH RDW Plt Count Lymph % (Auto) Seg Neutrophils % Seg Neuts % (Manual) Lymphocytes % (Manual) Nucleated RBC % Seg Neutrophils # Lymphocytes # (Manual) PT INR ABG pO2 ABG HCO3 ABG Base Excess ABG Hemoglobin VBG pH Oxyhemoglobin Sodium Potassium Chloride Carbon Dioxide BUN Creatinine Glucose POC Glucose 174 H 222 H 206 H Hemoglobin A1c Lactic Acid Calcium Phosphorus Magnesium Alkaline Phosphatase C-Reactive Protein Total Protein Albumin Vancomycin Trough Crossmatch 05/19/21 05/19/21 05/19/21 00:03 05:29 07:39 WBC RBC Hgb Hct MCV MCH RDW Plt Count Lymph % (Auto) Seg Neutrophils % Seg Neuts % (Manual) Lymphocytes % (Manual) Nucleated RBC % Seg Neutrophils # Lymphocytes # (Manual) PT INR ABG pO2 ABG HCO3 ABG Base Excess ABG Hemoglobin VBG pH Oxyhemoglobin Sodium Potassium Chloride Carbon Dioxide BUN Creatinine Glucose POC Glucose 113 H 129 H 158 H Hemoglobin A1c Lactic Acid Calcium Phosphorus Magnesium Alkaline Phosphatase C-Reactive Protein Total Protein Albumin Vancomycin Trough Crossmatch 05/19/21 05/19/21 05/20/21 10:36 15:45 00:12 WBC RBC Hgb Hct MCV MCH RDW Plt Count Lymph % (Auto) Seg Neutrophils % Seg Neuts % (Manual) Lymphocytes % (Manual) Nucleated RBC % Seg Neutrophils # Lymphocytes # (Manual) PT INR ABG pO2 ABG HCO3 ABG Base Excess ABG Hemoglobin VBG pH Oxyhemoglobin Sodium Potassium Chloride Carbon Dioxide BUN Creatinine Glucose POC Glucose 199 H 156 H 115 H Hemoglobin A1c Lactic Acid Calcium Phosphorus Magnesium Alkaline Phosphatase C-Reactive Protein Total Protein Albumin Vancomycin Trough Crossmatch 05/20/21 05/20/21 05/20/21 05:40 15:58 21:20 WBC RBC Hgb Hct MCV MCH RDW Plt Count Lymph % (Auto) Seg Neutrophils % Seg Neuts % (Manual) Lymphocytes % (Manual) Nucleated RBC % Seg Neutrophils # Lymphocytes # (Manual) PT INR ABG pO2 ABG HCO3 ABG Base Excess ABG Hemoglobin VBG pH Oxyhemoglobin Sodium Potassium Chloride Carbon Dioxide BUN Creatinine Glucose POC Glucose 115 H 110 H 166 H Hemoglobin A1c Lactic Acid Calcium Phosphorus Magnesium Alkaline Phosphatase C-Reactive Protein Total Protein Albumin Vancomycin Trough Crossmatch 05/21/21 05/21/21 05/21/21 08:42 12:44 16:52 WBC RBC Hgb Hct MCV MCH RDW Plt Count Lymph % (Auto) Seg Neutrophils % Seg Neuts % (Manual) Lymphocytes % (Manual) Nucleated RBC % Seg Neutrophils # Lymphocytes # (Manual) PT INR ABG pO2 ABG HCO3 ABG Base Excess ABG Hemoglobin VBG pH Oxyhemoglobin Sodium Potassium Chloride Carbon Dioxide BUN Creatinine Glucose POC Glucose 154 H 168 H 190 H Hemoglobin A1c Lactic Acid Calcium Phosphorus Magnesium Alkaline Phosphatase C-Reactive Protein Total Protein Albumin Vancomycin Trough Crossmatch 05/21/21 05/22/21 05/22/21 21:01 08:07 10:53 WBC RBC Hgb Hct MCV MCH RDW Plt Count Lymph % (Auto) Seg Neutrophils % Seg Neuts % (Manual) Lymphocytes % (Manual) Nucleated RBC % Seg Neutrophils # Lymphocytes # (Manual) PT INR ABG pO2 ABG HCO3 ABG Base Excess ABG Hemoglobin VBG pH Oxyhemoglobin Sodium Potassium Chloride Carbon Dioxide BUN Creatinine Glucose POC Glucose 220 H 189 H 191 H Hemoglobin A1c Lactic Acid Calcium Phosphorus Magnesium Alkaline Phosphatase C-Reactive Protein Total Protein Albumin Vancomycin Trough Crossmatch 05/22/21 17:02 WBC RBC Hgb Hct MCV MCH RDW Plt Count Lymph % (Auto) Seg Neutrophils % Seg Neuts % (Manual) Lymphocytes % (Manual) Nucleated RBC % Seg Neutrophils # Lymphocytes # (Manual) PT INR ABG pO2 ABG HCO3 ABG Base Excess ABG Hemoglobin VBG pH Oxyhemoglobin Sodium Potassium Chloride Carbon Dioxide BUN Creatinine Glucose POC Glucose 231 H Hemoglobin A1c Lactic Acid Calcium Phosphorus Magnesium Alkaline Phosphatase C-Reactive Protein Total Protein Albumin Vancomycin Trough Crossmatch Allied health notes reviewed: nursing
== END 2021-05-22 19:00 | disposition home health service (06) | DRG 853 ==
LOC: ED 09:26 → CC1 11:54 → 3A 04-30 22:27
PROVIDERS: ADMIT Internal Medicine; ATTEND Internal Medicine
PROC: 02HV33Z Insertion of Infusion Device into Superior Vena Cava, Percutaneous Approach (ICD-10-PCS; 2021-04-28)
PROC: B548ZZA Ultrasonography of Superior Vena Cava, Guidance (ICD-10-PCS; 2021-04-28)
PROC: 0S9C0ZZ Drainage of Right Knee Joint, Open Approach (ICD-10-PCS; principal; 2021-05-03)
PROC: 0JBN0ZZ Excision of Right Lower Leg Subcutaneous Tissue and Fascia, Open Approach (ICD-10-PCS; 2021-05-03)
PROC: 30233N1 Transfusion of Nonautologous Red Blood Cells into Peripheral Vein, Percutaneous Approach (ICD-10-PCS; 2021-05-04)
PROC: 0DB68ZX Excision of Stomach, Via Natural or Artificial Opening Endoscopic, Diagnostic (ICD-10-PCS; 2021-05-16)
PROC: 0DB78ZX Excision of Stomach, Pylorus, Via Natural or Artificial Opening Endoscopic, Diagnostic (ICD-10-PCS; 2021-05-16)
PROC: 0DBH8ZX Excision of Cecum, Via Natural or Artificial Opening Endoscopic, Diagnostic (ICD-10-PCS; 2021-05-17)
DX: A40.1 Sepsis due to streptococcus, group B (principal); E11.10 Type 2 diabetes mellitus with ketoacidosis without coma; G93.41 Metabolic encephalopathy; J96.01 Acute respiratory failure with hypoxia; E43 Unspecified severe protein-calorie malnutrition; M00.861 Arthritis due to other bacteria, right knee; E87.2 Acidosis; E66.2 Morbid (severe) obesity with alveolar hypoventilation; Z68.43 Body mass index [BMI] 50.0-59.9, adult; E87.1 Hypo-osmolality and hyponatremia; M00.261 Other streptococcal arthritis, right knee; M00.9 Pyogenic arthritis, unspecified; E87.0 Hyperosmolality and hypernatremia; J45.909 Unspecified asthma, uncomplicated; E87.6 Hypokalemia; E86.0 Dehydration; Z83.3 Family history of diabetes mellitus; Z82.49 Family history of ischemic heart disease and other diseases of the circulatory system; D64.9 Anemia, unspecified; D50.0 Iron deficiency anemia secondary to blood loss (chronic); E83.39 Other disorders of phosphorus metabolism; R13.12 Dysphagia, oropharyngeal phase; Z20.822 Contact with and (suspected) exposure to COVID-19
CPT/HCPCS: 31720; 36415; 70450; 70551; 71045; 74018; 74230; 80048; 80053; 80202; 81001; 82140; 82270; 82550; 82803; 82805; 82962; 83036; 83735; 84100; 84145; 84443; 84484; 84550; 85007; 85014; 85018; 85025; 85027; 85610; 86140; 86850; 86900; 86901; 86920; 87040; 87075; 87116; 88305; 88342; 93005; 93306; 94640; 94660; 94668; 94760; 99291; G0378; J1815; J2704; J3480; J3490; J7070; J7120; J7510; Q0162; Q0177; Q9967; J0171; J0330; J0360; J0456; J0690; J0692; J0696; J1030; J1100; J1170; J1642; J1644; J1650; J2270; J2370; J2405; J2805; J2997; J3370; J3475; J7030; J7040; J7050; P9016; P9045; U0003